=== PATIENT | female | born 1955 | race Caucasian/White ===

== ENCOUNTER 2019-01-23 14:06 | Inpatient (IN) ==
[2019-01-23] MEDS ORDERED: ASPIRIN CHEW 324 MG PO STA (15:11)
[2019-01-23 16:31] LABS: Basophils # (auto) 0.01 K/uL (0-0.2); Basophils % (auto) 0.2 %; Eosinophils # (auto) 0.12 K/uL (0-0.5); Eosinophils % (auto) 2.1 %; Hematocrit (blood only) 25.3 % (37-47); Hemoglobin 8.1 g/dL (12.0-16.0); Immature Granulocytes # (auto) 0.01 K/uL (0.00-0.02); Immature Granulocytes % (auto) 0.2 %; Lymphocytes # (auto) 1.19 K/uL (1.2-3.4); Lymphocytes % (auto) 21.1 %; Mean Corpuscular Volume 85.5 fL (80-100); Mean Platelet Volume 9.7 fL (7.4-10.4); Monocytes # (auto) 0.53 K/uL (0.11-0.59); Monocytes % (auto) 9.4 %; Neutrophils # (auto) 3.78 K/uL (1.4-6.5); Platelet Count 108 K/uL (130-400); RDW Coefficient of Variation 16.9 % (11.5-14.5); RDW Standard Deviation 52.4 fL (36.4-46.3); Red Blood Count 2.96 M/uL (4.2-5.4); White Blood Count 5.64 K/uL (4.8-10.8)
[2019-01-23 16:42] LABS: INR 1.2 (0.9-1.1); Partial Thromboplastin Ratio 1.2; Partial Thromboplastin Time 31.2 Seconds (21.0-31.0); Prothrombin Time 12.5 Seconds (9.0-12.0)
[2019-01-23 16:51] LABS: BUN Creatinine Ratio 22.5 (10-20); Blood Urea Nitrogen 19 mg/dl (7-18); Calcium 8.7 mg/dl (8.5-10.1); Carbon Dioxide 19 mmol/L (21-32); Chloride 118 mmol/L (98-107); Creatinine Clr Calc Pharmacy 71.8 ml/min; Est GFR (African American) 85.1; Est GFR (Non-African American) 73.4; Glucose 72 mg/dl (70-99); Potassium 4.3 mmol/L (3.5-5.1); Sodium 145 mmol/L (136-145)
[2019-01-23 16:56] LABS: NT Pro B Type Natriuretic Pept 1930 pg/ml (0-900); Troponin I < 0.015 ng/ml (0-0.045)
--- NOTE | 2019-01-23 17:07 | XRay Report ---
XR chest 2V routine CLINICAL HISTORY: 63 years-old Female presenting with Chest Pain. TECHNIQUE: PA and lateral views of the chest were obtained. COMPARISON: 10/10/[address] from 09/25/2018. FINDINGS: Cardiac silhouette mildly enlarged. Atherosclerosis of the aortic arch. Pulmonary vascular prominence . Mildly low lung volumes. No focal opacity. Small left pleural effusion. No pneumothorax. Reverse ri ght total shoulder arthroplasty. Osteopenia suspected. Degenerative changes of the spine. Upper abdom en normal. IMPRESSION: 1. Cardiomegaly with volume overload. No elia pulmonary edema at this time. 2. Small left pleural effusion. Electronically signed by: Marco Mac M.D. 01/23/2019 5:06 PM
[2019-01-23] MEDS ORDERED: FUROSEMIDE 40 MG in SYRINGE 0 ML IV ONE (17:19)
[2019-01-23] MEDS ORDERED: FUROSEMIDE 40 MG/4 ML VIAL IV ONE (17:34)
--- NOTE | 2019-01-23 18:17 | History & Physical Report ---
Date of Service January 23, 2019 Assessment & Plan (1) Heart failure: Patient presents with heart failure of undetermined type with a systolic or diastolic. She does have anemia which could create a high-output heart failure type state but she her symptoms are predominantly right-sided with very little in the way of pulmonary findings but significant peripheral body edema. We will give her Lasix 40 IV daily have an echocardiogram checked follow her electrolytes. They are holding her usual home doses of hydrochlorothiazide. She of the heart failure order set and hopefully be involved enrolled in the heart failure clinic once we determine the type of heart failure given the fact that she is been told she has some valvular heart abnormalities she does have a soft murmur this could be related to a valvular problem (2) Anemia: Patient claims of anemia which is likely iron deficiency anemia given the fact that she has significant gastric and duodenal ulcers and received iron infusions in the past. We will check hemoglobin and type and screen her this evening. Maintaining her on a Protonix, she claims have difficulties absorbing insulin with holding her aspirin at this time (3) Diabetes mellitus, type 2: Patient is typically on twice daily basal gar with insulin sliding scale this will be continued well as well as with a diabetic diet check hemoglobin A1c (4) Hypertension: Patient is being maintained on losartan plus amlodipine (5) Depression: Patient on Effexor 150 (6) DVT prophylaxis: SCDs to be employed with the fact that she has had previous peptic gastric ulcers and her anemia slightly worsened today History of Present Illness Primary Care Provider: Rocío Alonso DO 61-year-old female presents to the ER with increasing dyspnea on exertion orth opnea and a 20 to 30 pound weight gain over the last 2 to 3 months. 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 This was done at initially at [facility] and a lot of her care is done through the [facility] system in [place]. 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 This patient had an endoscopy at our facility in July 2018 where she had many nonbleeding cratered gastric ulcers with no stigmata of bleeding rumination and erythema gastric antrum and nonbleeding cratered duodenal ulcers were also found. Dr. Llamas treated with twice daily Protonix and a short run of Carafate. Patient denies having recent melena but states her blood count usually runs around 9 g Patient sees a digital media representative in the [place] system she states she is never been told she had a weak heart but he has been following her for valvular heart abnormalities. She was recently started on as needed Lasix for some lower extremity edema which is now significantly worse and has pitting edema all of her thighs. She states that there are times at home where her legs weep fluid Currently in the ER her BNP is elevated her chest x-ray only shows mild failure she has significant peripheral edema she is a distant smoking history but no significant history of COPD and she is unaware of ever been told she had pulmonary hypertension she is an insulin requiring diabetic patient Allergies Allergy/AdvReac Type Severity Reaction Status Date / Time Sulfa (Sulfonamide Allergy Mild Rash Verified 10/14/18 10:28 Antibiotics) Bactrim Allergy Unknown RASH Verified 08/17/14 08:01 sulfamethoxazole Allergy Unknown RASH Verified 10/14/18 10:28 trimethoprim Allergy Unknown RASH Verified 10/14/18 10:28 adhesive tape Allergy ITCHING Unverified 01/23/19 17:20 Home Medications Home Medications Medication Instructions Recorded Confirmed Type Basaglar KwikPen U-100 Insulin 20 unit SUBCUT QPM 07/24/18 01/23/19 History Basaglar KwikPen U-100 Insulin 25 unit SUBCUT QAM 07/24/18 01/23/19 History Glucagon Emergency Kit (human) 1 dose SUBCUT UD PRN 07/24/18 01/23/19 History amlodipine 5 mg PO HS 07/24/18 01/23/19 History aspirin 81 mg PO QAM 07/24/18 01/23/19 History folic acid 1 mg PO BID 07/24/18 01/23/19 History furosemide 20 mg PO DAILY PRN 07/24/18 01/23/19 History hydrochlorothiazide 50 mg PO QAM 07/24/18 01/23/19 History insulin lispro [Humalog KwikPen 1 dose SUBCUT AC 07/24/18 01/23/19 History Insulin] losartan 100 mg PO QAM 07/24/18 01/23/19 History metformin 1,000 mg PO BID 07/24/18 01/23/19 History potassium chloride 20 meq PO QAM 07/24/18 01/23/19 History ropinirole 2 mg PO HS 07/24/18 01/23/19 History simvastatin 20 mg PO HS 07/24/18 01/23/19 History venlafaxine 150 mg PO QAM 07/24/18 01/23/19 History pantoprazole 40 mg PO BID #60 tab 08/06/18 01/23/19 Rx sucralfate [Carafate] 1 gm PO ACHS #40 tab 08/06/18 01/23/19 Rx magnesium 250 mg PO DAILY 01/23/19 01/23/19 History Past Med/Surg History Family History Grandmother (Paternal) Family history of diabetes mellitus Father COPD (chronic obstructive pulmonary disease) Social History Preferred Language: Palauan Communication Ability: Effective Beliefs That Will Affect Care: None Current Living Situation: Spouse Feels Safe at Home: Yes Smoking Status: Never smoker Second Hand Exposure: Yes (PARENTS SMOKED) Hx Alcohol Use: No Hx Substance Use: No Review of Systems Review of Systems: ROS: Number the obese No double vision blurry vision No problems with speech or swallowing No palpitations, chest pain or pressure Patient has dyspnea on exertion and orthopnea No abdominal pain nausea vomiting diarrhea changes in appetite or melena No burning urine urine frequency or changes in color Persistent focal joint pain which is common for No skin rashes or oral lesions No unusual bruising or bleeding No focused back pain or numbness or loss of strength No changes in memory or confusion Physical Exam Physical Exam: The patient appeared in mild distress and morbidly obese Vital signs as documented. Head exam is unremarkable. normocephalic, atraumatic Neck is with jugular venous distension to the jaw, thyromegaly, or lymphademopathy Lungs are bibasilar fine rales Cardiac exam reveals Rhythm is regular. Systolic ejection murmurs heard at the right upper sternal border Abdominal exam reveals normal bowel sounds, no masses, no organomegaly Extremities are moderate edematous and both legs with pitting edema to the thigh Neurologic exam is A&Ox3, no focal deficits, strength is equal bilateral Psychologically seems neither anxious or depressed Skin is warm Dry without bruises or lesions Results & Data Vital Signs (Past 12 Hours) Vital Signs Temp Pulse Pulse Resp BP BP Pulse Ox 01/23/19 17:54 95 H 22 161/80 H 96 01/23/19 17:00 93 H 24 154/82 H 95 01/23/19 15:15 93 H 22 143/89 H 94 01/23/19 14:11 37.0 C 97 H 20 149/74 H 95
[2019-01-23] MEDS ORDERED: ONDANSETRON INJ 2 MG/ML 2 ML VIAL IV PRN (19:21)
[2019-01-23] MEDS ORDERED: ACETAMINOPHEN 325 MG TAB PO PRN (19:21)
[2019-01-23] MEDS ORDERED: CARBOHYDRATES FOR HYPOGLYCEMIA PO PRN ×2 (19:21)
[2019-01-23] MEDS ORDERED: GLUCAGON FOR INJ 1 MG VIAL SQ PRN ×2 (19:21)
[2019-01-23] MEDS ORDERED: DEXTROSE 50% 50 ML SYRINGE IV PRN ×2 (19:21)
[2019-01-23] MEDS ORDERED: GLUCOSE 40% GEL 15 GM TUBE PO PRN ×2 (19:21)
[2019-01-23] MEDS ORDERED: GLUCOSE 10 TABS/TUBE PO PRN ×2 (19:21)
[2019-01-23] MEDS ORDERED: NITROGLYCERIN SL 0.4 MG/TAB TAB SL PRN (19:21)
[2019-01-23] MEDS: ROPINIROLE HCL 1 MG TABLET PO SCH (20:53)
[2019-01-23] MEDS: PANTOprazole 40 MG TAB PO SCH (20:54)
[2019-01-23] MEDS: AMLODIPINE BESYLATE 5 MG TAB PO SCH (20:54)
[2019-01-23] MEDS: INSULIN GLARGINE SOLOSTAR 100 UNITS/ML 3 ML PEN SQ SCH (20:54)
[2019-01-23] MEDS: SIMVASTATIN 20 MG TAB PO SCH (20:54)
[2019-01-23] MEDS: INSULIN ASPART 100 UNITS/ML 3 ML PEN SC SCH (20:55)
[2019-01-23] MEDS ORDERED: INSULIN ASPART 100 UNITS/ML 3 ML PEN SC SCH (21:00)
--- NOTE | 2019-01-23 21:20 | Emergency Department Note ---
Entered by Kaci Montez acting as a scribe for History of Present Illness General Chief complaint: Shortness of Breath/Dyspnea Stated complaint: trouble breathing Time Seen by Provider: 01/23/19 14:52 Source: patient Mode of arrival: ambulatory Limitations: no limitations History of Present Illness Provider complaint: Shortness of breath Onset (ago): week(s) 3 Location: chest Radiation: non-radiation Pain Consistency: + other (worsening) Maximum Pain Intensity: 4 Quality: + other (shortness of breath) Exacerbated By: + other (exertion, lying down flat) Associated symptoms: + other (Additional symptoms: 30 lb weight gain, leg swelling (tight legs, seeping fluid), hard left breast) Treatments prior to arrival: none The patient is a 63 year old female with a history of COPD, hypertension hyperlipidemia, cardiac murmur, anemia, diabetes, GERD, osteoarthritis, and diverticular disease who presents to the Emergency Room with complaints of worsening shortness of breath starting about 3 weeks ago. The patient reports that her shortness of breath worsens with essentially any amount of exertion and when she lies down flat. She states that she has also been "filling up with fluid" and has gained about 30 lb over the past 3 weeks. She notes that her legs are very tight and have been seeping fluid. The patient also complains that her left breast has become hard to the touch. She denies previously being diagnosed with CHF. She reports that her PCP is Dr. Alonso. Home Medications Home Medications Medication Instructions Recorded Confirmed Type Basaglar KwikPen U-100 Insulin 20 unit SUBCUT QPM 07/24/18 01/23/19 History Basaglar KwikPen U-100 Insulin 25 unit SUBCUT QAM 07/24/18 01/23/19 History Glucagon Emergency Kit (human) 1 dose SUBCUT UD PRN 07/24/18 01/23/19 History amlodipine 5 mg PO HS 07/24/18 01/23/19 History aspirin 81 mg PO QAM 07/24/18 01/23/19 History folic acid 1 mg PO BID 07/24/18 01/23/19 History furosemide 20 mg PO DAILY PRN 07/24/18 01/23/19 History hydrochlorothiazide 50 mg PO QAM 07/24/18 01/23/19 History insulin lispro [Humalog KwikPen 1 dose SUBCUT AC 07/24/18 01/23/19 History Insulin] losartan 100 mg PO QAM 07/24/18 01/23/19 History metformin 1,000 mg PO BID 07/24/18 01/23/19 History potassium chloride 20 meq PO QAM 07/24/18 01/23/19 History ropinirole 2 mg PO HS 07/24/18 01/23/19 History simvastatin 20 mg PO HS 07/24/18 01/23/19 History venlafaxine 150 mg PO QAM 07/24/18 01/23/19 History pantoprazole 40 mg PO BID #60 tab 08/06/18 01/23/19 Rx sucralfate [Carafate] 1 gm PO ACHS #40 tab 08/06/18 01/23/19 Rx magnesium 250 mg PO DAILY 01/23/19 01/23/19 History Allergies Allergy/AdvReac Type Severity Reaction Status Date / Time Sulfa (Sulfonamide Allergy Mild Rash Verified 10/14/18 10:28 Antibiotics) Bactrim Allergy Unknown RASH Verified 08/17/14 08:01 sulfamethoxazole Allergy Unknown RASH Verified 10/14/18 10:28 trimethoprim Allergy Unknown RASH Verified 10/14/18 10:28 adhesive tape Allergy ITCHING Unverified 01/23/19 17:20 Past Med/Surg History Medical History Anemia Anxiety Cardiac murmur Diabetes mellitus, type 2 Diverticular disease Duodenal ulcer GERD (gastroesophageal reflux disease) Gastric ulcer Hyperlipidemia Hypertension Nausea and vomiting after administration of anesthetic agent Osteoarthritis Psoriatic arthritis Restless leg syndrome Surgical History History of anesthesia reaction difficult to wake after bladder tack sx History of bilateral cataract extraction History of bladder surgery bladder tack History of colonoscopy History of esophagogastroduodenoscopy (EGD) History of repair of right rotator cuff x2 History of tooth extraction all teeth Family History Grandmother (Paternal) Family history of diabetes mellitus Father COPD (chronic obstructive pulmonary disease) Social History Preferred Language: [place] Korean Communication Ability: Effective Hvac Refrigeration Technician Required: No Beliefs That Will Affect Care: None Current Living Situation: Spouse Other Information That Helps Us Care for You: No Feels Safe at Home: Yes Safety Concerns: Feels Safe At This Time Smoking Status: Never smoker Second Hand Exposure: Yes (PARENTS SMOKED) Hx Alcohol Use: No Hx Substance Use: No Review of Systems See HPI for pertinent positives & negatives. and A total of 10 systems reviewed and were otherwise negative Physical Exam Vital Signs Vital Signs - 24 hr 01/23/19 14:11 01/23/19 15:15 01/23/19 17:00 Temperature 37.0 C Temperature Source Oral Sepsis Recent Fever Within 48 Hours No Sepsis New/Unexplained Change in Mental Status No Sepsis Action Taken by Nursing No Action Required Pulse Rate 97 H Pulse Rate [Left Finger] 93 H 93 H Pulse Rhythm [Left Finger] Regular Regular Respiratory Rate 20 22 24 Respiratory Effort / Characteristics Non-Labored Non-Labored Respiratory Depth Normal Normal Respiratory Pattern Regular Regular Blood Pressure 149/74 H Blood Pressure [Left Arm] 143/89 H 154/82 H Blood Pressure Mean 99 Blood Pressure Mean [Left Arm] 107 106 Pulse Oximetry 95 94 95 Oxygen Delivery Method Room Air Room Air Room Air GENERAL: She is oriented to person, place, and time. She appears well-developed and well-nourished. She does not appear distressed. HENT: Exam performed. - Head: Normocephalic and atraumatic. - Right Ear: External ear normal. No mastoid tenderness. - Left Ear: External ear normal. No mastoid tenderness. - Mouth/Throat: The oropharynx is clear and moist. No trismus in the jaw. No dental abscesses or uvula swelling. No oropharyngeal exudate or tonsillar abscesses. EYES: Conjunctivae and EOM are normal. Pupils are equal, round, and reactive to light. Right eye exhibits no discharge. Left eye exhibits no discharge. No scleral icterus. NECK: Normal range of motion. Neck supple. No JVD present. No spinous process tenderness present. No carotid bruit present. No rigidity. No tracheal deviation and normal range of motion present. No Brudzinski's sign and no Kernig's sign noted. CV: Normal rate, regular rhythm, normal heart sounds and intact distal pulses. 2+ pitting edema of bilateral lower extremities. Palpable radial pulses bue. PULM/CHEST: Effort normal. She has rales at the bases. Chest Wall: She exhibits no tenderness. BREAST: Breast exam conducted with nursing vice president consulting services at the bedside showed no palpable masses, fluctuance, or discharge/bleeding from the nipples. ABD: The abdomen is soft. Bowel sounds are normal. She has no distension. No mass is present. There is no tenderness. There is no rebound, no guarding, no Quinones's sign and no tenderness at McBurney's point. Rovsig negative MUSC/SKEL: Normal range of motion. There is no tenderness or deformity. 2+ pitting edema of bilateral lower extremities. LYMPH: No cervical adenopathy. NEURO: She is alert and oriented to person, place, and time. She has normal strength. No cranial nerve deficit or sensory deficit. Coordination and gait normal. GCS eye subscore is 4. GCS verbal subscore is 5. GCS motor subscore is 6. cerbellar tests wnl. SKIN: Skin is warm and dry. She is not diaphoretic. PSYCH: She has a normal mood and affect. Her behavior is normal. Judgment and thought content normal. Course 1508: The patient was evaluated in room C7, and a complete history and physical examination were performed. 1724: Vital signs are stable. Imaging shows cardiomegaly with fluid overload. Her proBNP was elevated. The patient was given Lasix and will be admitted for new diagosis CHF. I reviewed the patient's case with Dr. Karimi - [facility]. Dr. Karimi will evaluate the patient for further management. Consultations Consultation #1: I reviewed the patient's case with Dr. Karimi - [facility]. Dr. Karmii will evaluate the patient for further management. Time: 17:24 Administered Medications Amlodipine Besylate (Norvasc) 5 mg PO HS BOBBY Stop: 02/22/19 20:59 Last Admin: 01/23/19 20:54 Dose: 5 mg Documented by: [id number] Insulin Aspart (Novolog Flexpen) 0 units SC ACHS BOBBY Stop: 02/22/19 20:59 Last Admin: 01/23/19 20:55 Dose: Not Given Documented by: [id number] Cosigned by: [id number] Insulin Glargine (Lantus Solostar Pen) 20 units SQ QPM BOBBY Stop: 02/22/19 20:59 Last Admin: 01/23/19 20:54 Dose: 20 units Documented by: [id number] Cosigned by: [id number] Pantoprazole Sodium (Protonix) 40 mg PO BID BOBBY Stop: 02/22/19 20:59 Last Admin: 01/23/19 20:54 Dose: 40 mg Documented by: [id number] Ropinirole HCl (Requip) 2 mg PO HS BOBBY Stop: 02/22/19 20:59 Last Admin: 01/23/19 20:53 Dose: 2 mg Documented by: [id number] Simvastatin (Zocor) 20 mg PO HS BOBBY Stop: 02/22/19 20:59 Last Admin: 01/23/19 20:54 Dose: 20 mg Documented by: [id number] Discontinued Medications Aspirin (Aspirin) 324 mg PO NOW STA Stop: 01/23/19 15:12 Last Admin: 01/23/19 16:16 Dose: 324 mg Documented by: [id number] Furosemide (Lasix) Confirm Administered Dose 40 mg IV .STK-MED ONE Stop: 01/23/19 17:35 Last Admin: 01/23/19 17:52 Dose: 40 mg Documented by: [id number] Furosemide 40 mg/ Syringe 4 mls @ 4 mls/min IV ONE ONE Stop: 01/23/19 17:20 Last Admin: 01/23/19 17:52 Dose: Not Given Documented by: [id number] Medical Decision Making Medical Records Attestation: I reviewed the patient's medical records. Home Medications Current Medication List: was personally reviewed by me Laboratory Data Attestation: I reviewed the patient's lab results. Result diagrams: 01/23/19 16:05 01/23/19 16:05 Lab Results 01/23/19 01/23/19 01/23/19 Range/Units 16:05 16:05 16:05 WBC 5.64 (4.8-10.8) K/uL RBC 2.96 L (4.2-5.4) M/uL Hgb 8.1 L (12.0-16.0) g/dL Hct 25.3 L (37-47) % MCV 85.5 (80-100) fL MCH 27.4 (25-34) pg MCHC 32.0 (32-36) g/dL RDW Std Deviation 52.4 H (36.4-46.3) fL RDW Coeff of Karina 16.9 H (11.5-14.5) % Plt Count 108 L (130-400) K/uL MPV 9.7 (7.4-10.4) fL Immature Gran % (Auto) 0.2 % Neut % (Auto) 67.0 % Lymph % (Auto) 21.1 % Nicollet % (Auto) 9.4 % Eos % (Auto) 2.1 % Baso % (Auto) 0.2 % Immature Gran # (Auto) 0.01 (0.00-0.02) K/uL Neut # (Auto) 3.78 (1.4-6.5) K/uL Lymph # (Auto) 1.19 L (1.2-3.4) K/uL Nicol[place] # (Auto) 0.53 (0.11-0.59) K/uL Eos # (Auto) 0.12 (0-0.5) K/uL Baso # (Auto) 0.01 (0-0.2) K/uL PT 12.5 H (9.0-12.0) Seconds INR 1.2 H (0.9-1.1) APTT 31.2 H (21.0-31.0) Seconds PTT Ratio 1.2 Sodium 145 (136-145) mmol/L Potassium 4.3 (3.5-5.1) mmol/L Chloride 118 H (98-107) mmol/L Carbon Dioxide 19 L (21-32) mmol/L Anion Gap 7.0 (3-11) BUN 19 H (7-18) mg/dl Creatinine 0.85 (0.6-1.2) mg/dl Est Cr Clr Drug Dosing 71.8 ml/min Est GFR ( Amer) 85.1 Est GFR (Non-Af Amer) 73.4 BUN/Creatinine Ratio 22.5 H (10-20) Glucose 72 (70-99) mg/dl Calcium 8.7 (8.5-10.1) mg/dl Troponin I < 0.015 (0-0.045) ng/ml NT-Pro-B Natriuret Pep 1930 H (0-900) pg/ml Lipase 60 L (73-393) U/L Imaging Data Radiologist's Impression: Radiology results as stated below per my review and the radiologist's interpretation: XR chest 2V routine CLINICAL HISTORY: 63 years-old Female presenting with Chest Pain. TECHNIQUE: PA and lateral views of the chest were obtained. COMPARISON: 10/10/[address] from 09/25/2018. FINDINGS: Cardiac silhouette mildly enlarged. Atherosclerosis of the aortic arch. Pulmonary vascular prominence. Mildly low lung volumes. No focal opacity. Small left pleural effusion. No pneumothorax. Reverse right total shoulder arthroplasty. Osteopenia suspected. Degenerative changes of the spine. Upper abdomen normal. IMPRESSION: 1. Cardiomegaly with volume overload. No elia pulmonary edema at this time. 2. Small left pleural effusion. Electronically signed by: Marco Mac M.D. 01/23/2019 5:06 PM ECG Data Attestation: I personally reviewed and interpreted this ECG as follows: Indication: SOB/dyspnea Rate (beats per minute): 92 Rhythm: sinus rhythm Findings: + other (MI, QRS, and QTC intervals are within normal limits); no ST depression and no ST elevation Blood Pressure Blood Pressure Findings: Elevated blood pressure Blood Pressure Disposition: further management by hospitalist [facility] Narrative Vital signs are stable. Imaging shows cardiomegaly with fluid overload. Her proBNP was elevated. The patient was given Lasix and will be admitted for new diagosis CHF. I reviewed the patient's case with Dr. Karimi - Hospitalist, [facility]. Dr. Karimi will evaluate the patient for further management. Impression & Plan CHF (congestive heart failure) Discharge Plan Visit Data *Final* Discharge Date/Time: 01/23/19 18:40 Chief Complaint: Shortness of Breath/Dyspnea Stated Complaint: trouble breathing ED Provider: Mahendra Garcia Discharge Problem: CHF (congestive heart failure) Patient Disposition: Admitted As Inpatient Discharge Instructions Interventions: ED Discharge Assessment Last Done: 01/23/19 18:40 Discharge Problem: CHF (congestive heart failure) Qualifiers: Heart failure type: unspecified Heart failure chronicity: unspecified Qualified Code(s): I50.9 - Heart failure, unspecified The scribe's documentation has been prepared under my direction and personally reviewed by me in its entirety. I confirm that the note above accurately reflects all work, treatment, procedures, and medical decision making performed by me.
[2019-01-24 06:26] LABS: Hematocrit (blood only) 24.2 % (37-47); Hemoglobin 7.9 g/dL (12.0-16.0); Mean Corpuscular Hgb Conc 32.6 g/dL (32-36); Mean Corpuscular Volume 85.2 fL (80-100); RDW Coefficient of Variation 16.9 % (11.5-14.5); RDW Standard Deviation 52.7 fL (36.4-46.3); Red Blood Count 2.84 M/uL (4.2-5.4); White Blood Count 4.44 K/uL (4.8-10.8)
[2019-01-24 06:44] LABS: Estimated Average Glucose 120 mg/dl; Hemoglobin A1C 5.8 % (4.5-5.6)
[2019-01-24 06:52] LABS: Mean Platelet Volume 9.3 fL (7.4-10.4); Platelet Count 89 K/uL (130-400)
[2019-01-24 06:55] LABS: BUN Creatinine Ratio 23.6 (10-20); Calcium 8.4 mg/dl (8.5-10.1); Creatinine Clr Calc Pharmacy 71.6 ml/min; Est GFR (African American) 86.3; Est GFR (Non-African American) 74.5; Potassium 3.8 mmol/L (3.5-5.1)
[2019-01-24] MEDS: INSULIN ASPART 100 UNITS/ML 3 ML PEN SC SCH ×4 (08:29→21:12)
[2019-01-24] MEDS: INSULIN GLARGINE SOLOSTAR 100 UNITS/ML 3 ML PEN SQ SCH ×2 (08:30→21:11)
[2019-01-24] MEDS: FUROSEMIDE 40 MG in SYRINGE 0 ML IV SCH (08:31)
[2019-01-24] MEDS: POTASSIUM CHLORIDE 10 MEQ TABCR PO SCH (08:32)
[2019-01-24] MEDS: PANTOprazole 40 MG TAB PO SCH ×2 (08:32→21:10)
[2019-01-24] MEDS: MAGNESIUM OXIDE 400 MG TAB PO SCH (08:33)
[2019-01-24] MEDS: LOSARTAN POTASSIUM 50 MG TAB PO SCH (08:33)
[2019-01-24] MEDS: VENLAFAXINE HCL XR 150 MG CAPXR PO SCH (08:33)
[2019-01-24] MEDS ORDERED: NON-FORMULARY MEDICATION (Magnesium 250 MG) PO SCH (09:00)
[2019-01-24] MEDS ORDERED: LOPERAMIDE HCL 2 MG CAP PO PRN (10:30)
--- NOTE | 2019-01-24 10:43 | Hospitalist Progress Note ---
Date of Service January 24, 2019 Assessment & Plan (1) Heart failure: acute heart failure with preserved ejection fraction, EF is 65-70%, could be a degree of right heart failure responding well to Lasix 40mg IV, -2000mL already and making more urine K is stable, Cr is stable will give additional dose of Lasix 40mg IV at 1400 still with pitting edema, no rales on exam follow UO, follow weights, follow BMP in the morning (2) Anemia: Patient claims of anemia which is likely iron deficiency anemia given the fact that she has significant gastric and duodenal ulcers and received iron infusions in the past. We will check hemoglobin and type and screen her this evening. Maintaining her on a Protonix, she claims have difficulties absorbing insulin with holding her aspirin at this time Hb down to 7.9 from 8.1, iron is low which supports her story of being deficient will check ferritin level no need for transfusion unless her Hb is < 7.0, would certainly give Lasix 40mg IV afterwards given her volume overload status (3) Diabetes mellitus, type 2: Patient is typically on twice daily basal gar with insulin sliding scale this will be continued diabetic diet HbA1c is 5.8% so she is very well controlled monitor for hypoglycemia (4) Hypertension: Patient is being maintained on losartan plus amlodipine, typically on HCTZ as well pressures running a little high with SBP in 160s HR in the 80-90's, will start low dose Lopressor to see if BP improves would not increase Amlodipine due to peripheral edema (5) Depression: Patient on Effexor 150 (6) DVT prophylaxis: SCDs make patient full admission continue to diurese until her UO decreases or Cr rises, day to day decision on discharge Subjective patient feeling better this morning, says breathing is easier making a lot of urine, negative 2 liters as of this morning, less than 24 hours into admission still with edema in legs but less overall reviewed labs, Cr is stable and electrolytes are stable, K is 3.8 Hb down very slightly to 7.9 iron is low, ferritin not checked, will order for tomorrow c/o some pain in shoulder after recent surgery, will order oxycodone c/o loose stools, she says it is related to Protonix, uses Imodium at home Review of Systems Review of Systems: All systems reviewed & are unremarkable except as noted in HPI & below Constitutional: no fever, no fatigue and no weakness Respiratory: + dyspnea on exertion (much better); no dyspnea Cardiovascular: + dyspnea on exertion and + edema; no chest pain and no orthopnea Gastrointestinal: + diarrhea/loose stools; no abdominal pain, no nausea, no vomiting and no constipation Physical Exam Constitutional: WD/WN, vitals as above Eyes: PERRL, conjunctivae normal, anicteric sclerae ENMT: external ear and nose normal, oropharynx normal Neck: trachea midline, no thyromegaly Respiratory: normal respiratory effort, lungs clear to auscultation Cardiovascular: RRR, no murmur, no edema Gastrointestinal (Abdomen): normal bowel sounds, soft, nontender, no hepatosplenomegaly Musculoskeletal: no cyanosis or clubbing, extremities motor strength 5/5 Extremities: + limited ROM of extremities (right shoulder due to recent surgery) Skin: no rashes, warm and dry Neurologic: patellar DTR's 2+ bilat, sensation intact and PERRL, EOMI, accommodation nl, no face palsy, no dysarthria Psychiatric: A+Ox3, euthymic affect Lymphatic: no cervical or axillary lymphadenopathy Results & Data Vital Signs (Past 12 Hours) Vital Signs Temp Pulse Pulse Resp BP Pulse Ox 01/24/19 07:43 36.6 C 88 19 161/82 H 95 01/24/19 04:24 36.7 C 86 16 152/81 H 95 01/24/19 00:40 85 01/23/19 23:08 36.7 C 91 H 18 146/79 H 95 Laboratory Results Laboratory Results - last 24 hr 01/23/19 01/23/19 01/23/19 16:05 16:05 16:05 WBC 5.64 RBC 2.96 L Hgb 8.1 L Hct 25.3 L MCV 85.5 MCH 27.4 MCHC 32.0 RDW Std Deviation 52.4 H RDW Coeff of Karina 16.9 H Plt Count 108 L MPV 9.7 Immature Gran % (Auto) 0.2 Neut % (Auto) 67.0 Lymph % (Auto) 21.1 Grainger % (Auto) 9.4 Eos % (Auto) 2.1 Baso % (Auto) 0.2 Immature Gran # (Auto) 0.01 Neut # (Auto) 3.78 Lymph # (Auto) 1.19 L Grainger # (Auto) 0.53 Eos # (Auto) 0.12 Baso # (Auto) 0.01 PT 12.5 H INR 1.2 H APTT 31.2 H PTT Ratio 1.2 Sodium 145 Potassium 4.3 Chloride 118 H Carbon Dioxide 19 L Anion Gap 7.0 BUN 19 H Creatinine 0.85 Est Cr Clr Drug Dosing 71.8 Est GFR ( Amer) 85.1 Est GFR (Non-Af Amer) 73.4 BUN/Creatinine Ratio 22.5 H Glucose 72 POC Glucose Estimat Average Glucose Hemoglobin A1c Calcium 8.7 Iron TIBC Troponin I < 0.015 NT-Pro-B Natriuret Pep 1930 H Lipase 60 L Hepatitis C Ab Screen Blood Type Antibody Screen 01/23/19 01/23/19 01/23/19 19:14 20:47 23:15 WBC RBC Hgb Hct MCV MCH MCHC RDW Std Deviation RDW Coeff of Karina Plt Count MPV Immature Gran % (Auto) Neut % (Auto) Lymph % (Auto) Grainger % (Auto) Eos % (Auto) Baso % (Auto) Immature Gran # (Auto) Neut # (Auto) Lymph # (Auto) Grainger # (Auto) Eos # (Auto) Baso # (Auto) PT INR APTT PTT Ratio Sodium Potassium Chloride Carbon Dioxide Anion Gap BUN Creatinine Est Cr Clr Drug Dosing Est GFR ( Amer) Est GFR (Non-Af Amer) BUN/Creatinine Ratio Glucose POC Glucose 74 101 H Estimat Average Glucose Hemoglobin A1c Calcium Iron TIBC Troponin I NT-Pro-B Natriuret Pep Lipase Hepatitis C Ab Screen Blood Type O Positive Antibody Screen NEGATIVE 01/23/19 01/24/19 01/24/19 23:15 05:30 05:30 WBC 4.44 L RBC 2.84 L Hgb 8.1 L 7.9 L Hct 24.2 L MCV 85.2 MCH 27.8 MCHC 32.6 RDW Std Deviation 52.7 H RDW Coeff of Karina 16.9 H Plt Count 89 L MPV 9.3 Immature Gran % (Auto) Neut % (Auto) Lymph % (Auto) Grainger % (Auto) Eos % (Auto) Baso % (Auto) Immature Gran # (Auto) Neut # (Auto) Lymph # (Auto) Grainger # (Auto) Eos # (Auto) Baso # (Auto) PT INR APTT PTT Ratio Sodium 143 Potassium 3.8 Chloride 116 H Carbon Dioxide 21 Anion Gap 6.0 BUN 20 H Creatinine 0.84 Est Cr Clr Drug Dosing 71.6 Est GFR ( Amer) 86.3 Est GFR (Non-Af Amer) 74.5 BUN/Creatinine Ratio 23.6 H Glucose 57 L POC Glucose Estimat Average Glucose Hemoglobin A1c Calcium 8.4 L Iron 26 L TIBC 180 L Troponin I NT-Pro-B Natriuret Pep Lipase Hepatitis C Ab Screen Blood Type Antibody Screen 01/24/19 01/24/19 01/24/19 05:30 05:30 07:10 WBC RBC Hgb Hct MCV MCH MCHC RDW Std Deviation RDW Coeff of Karina Plt Count MPV Immature Gran % (Auto) Neut % (Auto) Lymph % (Auto) Grainger % (Auto) Eos % (Auto) Baso % (Auto) Immature Gran # (Auto) Neut # (Auto) Lymph # (Auto) Grainger # (Auto) Eos # (Auto) Baso # (Auto) PT INR APTT PTT Ratio Sodium Potassium Chloride Carbon Dioxide Anion Gap BUN Creatinine Est Cr Clr Drug Dosing Est GFR ( Amer) Est GFR (Non-Af Amer) BUN/Creatinine Ratio Glucose POC Glucose 68 L* Estimat Average Glucose 120 Hemoglobin A1c 5.8 H Calcium Iron TIBC Troponin I NT-Pro-B Natriuret Pep Lipase Hepatitis C Ab Screen Neg Blood Type Antibody Screen 01/24/19 07:11 WBC RBC Hgb Hct MCV MCH MCHC RDW Std Deviation RDW Coeff of Karina Plt Count MPV Immature Gran % (Auto) Neut % (Auto) Lymph % (Auto) Grainger % (Auto) Eos % (Auto) Baso % (Auto) Immature Gran # (Auto) Neut # (Auto) Lymph # (Auto) Grainger # (Auto) Eos # (Auto) Baso # (Auto) PT INR APTT PTT Ratio Sodium Potassium Chloride Carbon Dioxide Anion Gap BUN Creatinine Est Cr Clr Drug Dosing Est GFR ( Amer) Est GFR (Non-Af Amer) BUN/Creatinine Ratio Glucose POC Glucose 71 Estimat Average Glucose Hemoglobin A1c Calcium Iron TIBC Troponin I NT-Pro-B Natriuret Pep Lipase Hepatitis C Ab Screen Blood Type Antibody Screen Diagnostic Findings ECHOCARDIOGRAM: EF is 65-70%, left atrium dilated, elevated pulmonary pressures Medications Administered Current Inpatient Medications Acetaminophen (Tylenol) 650 mg PO Q4H PRN PRN Reason: Pain or Fever Stop: 02/22/19 19:20 Last Admin: 01/24/19 07:28 Dose: 650 mg Documented by: Amlodipine Besylate (Norvasc) 5 mg PO HS [facility] Stop: 02/22/19 20:59 Last Admin: 01/23/19 20:54 Dose: 5 mg Documented by: Dextrose (Dextrose 50%) 25 - 50 ml IV UD PRN; Protocol PRN Reason: Hypoglycemia Protocol Stop: 02/22/19 19:20 Glucagon (Glucagen) 1 mg SQ UD PRN; Protocol PRN Reason: Hypoglycemia Protocol Stop: 02/22/19 19:20 Glucose (Glucose 40%) 15 - 30 gm PO UD PRN; Protocol PRN Reason: Hypoglycemia Protocol Stop: 02/22/19 19:20 Glucose (Dex4 Glucose) 4 - 8 tabs PO UD PRN; Protocol PRN Reason: Hypoglycemia Protocol Stop: 02/22/19 19:20 Hydrochlorothiazide (Hctz) 50 mg PO QAM [facility] Stop: 02/23/19 08:59 Last Admin: 01/24/19 08:32 Dose: 50 mg Documented by: Furosemide 40 mg/ Syringe 4 mls @ 4 mls/min IV QAM [facility] Stop: 02/23/19 08:59 Last Admin: 01/24/19 08:31 Dose: 4 mls/min Documented by: Furosemide 40 mg/ Syringe 4 mls @ 4 mls/min IV ONE ONE Stop: 01/24/19 14:01 Insulin Aspart (Novolog Flexpen) 0 units SC ACHS [facility] Stop: 02/22/19 20:59 Last Admin: 01/24/19 08:29 Dose: Not Given Documented by: Insulin Glargine (Lantus Solostar Pen) 20 units SQ QPM [facility] Stop: 02/22/19 20:59 Last Admin: 01/23/19 20:54 Dose: 20 units Documented by: Insulin Glargine (Lantus Solostar Pen) 25 units SQ QAM [facility] Stop: 02/23/19 08:59 Last Admin: 01/24/19 08:30 Dose: 25 units Documented by: Loperamide HCl (Imodium) 2 mg PO Q6 PRN PRN Reason: Diarrhea Stop: 02/23/19 10:29 Losartan Potassium (Cozaar) 100 mg PO QAM [facility] Stop: 02/23/19 08:59 Last Admin: 01/24/19 08:33 Dose: 100 mg Documented by: Magnesium Oxide (Mag-Ox) 400 mg PO QAM [facility] Stop: 02/23/19 08:59 Last Admin: 01/24/19 08:33 Dose: 400 mg Documented by: Miscellaneous (Carbohydrates For Hypoglycemia) 15 - 30 gm PO UD PRN PRN Reason: Hypoglycemia Treatment Stop: 02/22/19 19:20 Nitroglycerin (Nitrostat) 0.4 mg SL UD PRN PRN Reason: Chest Pain Stop: 02/22/19 19:20 Ondansetron HCl (Zofran) 4 mg IV Q6H PRN PRN Reason: Nausea Stop: 02/22/19 19:20 Oxycodone HCl (Roxicodone Immediate Rel) 5 mg PO Q6 PRN PRN Reason: Pain Stop: 02/07/19 10:30 Pantoprazole Sodium (Protonix) 40 mg PO BID [facility] Stop: 02/22/19 20:59 Last Admin: 01/24/19 08:32 Dose: 40 mg Documented by: Potassium Chloride (Klor-Con M10) 20 meq PO [facility] Stop: 02/23/19 08:59 Last Admin: 01/24/19 08:32 Dose: 20 meq Documented by: Ropinirole HCl (Requip) 2 mg PO [facility] Stop: 02/22/19 20:59 Last Admin: 01/23/19 20:53 Dose: 2 mg Documented by: Simvastatin (Zocor) 20 mg PO [facility] Stop: 02/22/19 20:59 Last Admin: 01/23/19 20:54 Dose: 20 mg Documented by: Venlafaxine HCl (Effexor Extended Release) 150 mg PO [facility] Stop: 02/23/19 08:59 Last Admin: 01/24/19 08:33 Dose: 150 mg Documented by:
[2019-01-24] MEDS: OXYCODONE HCL IR 5 MG TAB (IMMEDIATE RELEASE) PO PRN ×2 (13:40→23:27)
[2019-01-24] MEDS ORDERED: FUROSEMIDE 40 MG in SYRINGE 0 ML IV ONE (14:00)
[2019-01-24] MEDS: AMLODIPINE BESYLATE 5 MG TAB PO SCH (21:09)
[2019-01-24] MEDS: METOPROLOL TARTRATE 25 MG TAB PO SCH (21:09)
[2019-01-24] MEDS: ROPINIROLE HCL 1 MG TABLET PO SCH (21:10)
[2019-01-24] MEDS: SIMVASTATIN 20 MG TAB PO SCH (21:11)
[2019-01-25 07:06] LABS: Hematocrit (blood only) 25.5 % (37-47); Hemoglobin 8.1 g/dL (12.0-16.0); Mean Corpuscular Hgb Conc 31.8 g/dL (32-36); Mean Corpuscular Volume 85.3 fL (80-100); Mean Platelet Volume 9.6 fL (7.4-10.4); Platelet Count 101 K/uL (130-400); RDW Coefficient of Variation 16.8 % (11.5-14.5); RDW Standard Deviation 52.2 fL (36.4-46.3); Red Blood Count 2.99 M/uL (4.2-5.4); White Blood Count 4.92 K/uL (4.8-10.8)
[2019-01-25 07:41] LABS: BUN Creatinine Ratio 22.1 (10-20); Calcium 8.3 mg/dl (8.5-10.1); Est GFR (African American) 81.6; Est GFR (Non-African American) 70.4; Potassium 3.8 mmol/L (3.5-5.1)
[2019-01-25 07:48] LABS: Ferritin 99.3 ng/ml (8-388)
[2019-01-25] MEDS: INSULIN ASPART 100 UNITS/ML 3 ML PEN SC SCH ×4 (08:14→21:06)
[2019-01-25] MEDS: INSULIN GLARGINE SOLOSTAR 100 UNITS/ML 3 ML PEN SQ SCH ×2 (08:15→21:06)
[2019-01-25] MEDS: POTASSIUM CHLORIDE 10 MEQ TABCR PO SCH (08:15)
[2019-01-25] MEDS: LOSARTAN POTASSIUM 50 MG TAB PO SCH (08:16)
[2019-01-25] MEDS: MAGNESIUM OXIDE 400 MG TAB PO SCH (08:16)
[2019-01-25] MEDS: VENLAFAXINE HCL XR 150 MG CAPXR PO SCH (08:16)
[2019-01-25] MEDS: FUROSEMIDE 40 MG in SYRINGE 0 ML IV SCH (08:16)
[2019-01-25] MEDS: METOPROLOL TARTRATE 25 MG TAB PO SCH ×2 (08:17→21:04)
[2019-01-25] MEDS: PANTOprazole 40 MG TAB PO SCH ×2 (08:19→21:04)
[2019-01-25] MEDS ORDERED: FUROSEMIDE 40 MG in SYRINGE 0 ML IV ONE (17:00)
--- NOTE | 2019-01-25 17:05 | Hospitalist Progress Note ---
Date of Service January 25, 2019 Assessment & Plan (1) Heart failure: Here with acute right-sided heart failure with preserved ejection fraction, EF is 65-70%, moderate pulmonary hypertension seen on echo along with abdominal ascites. With significant lower extremity edema and with abdominal as cites, consistent with right-sided heart failure. She is continuing to diurese very well with IV Lasix 40 mg-has received dose twice daily yesterday and will do again today She was told to stop her Lasix 20 mg daily approximately 1 month ago at a preoperative cardiology visit due to being on both HCTZ and Lasix Weight is down a significant amount already at -5.6 kg, eyes and his cumulative are -3.7 L -Continue to follow BMP -Continue Lasix 40 mg IV once daily and extra dose in the afternoon as needed -Add fluid restriction of 1800 mL's per day -Continue daily weights, strict I's and O's, low-sodium diet-gave education on this today -Permanently discontinue HCTZ -will 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 -With history of apneic events witnessed and snoring, will do overnight oximetry test prior to discharge and then should have formal sleep study as an outpatient to qualify for CPAP (2) Pulmonary hypertension: Moderate, seen on echocardiogram here -Most likely secondary to untreated AIMEE and could have component of COPD given [id number] smoking history -Recommend PFTs as an outpatient -Recommend overnight oximetry here and sleep study as above (3) Anemia: Patient claims of anemia which is likely iron deficiency anemia given the fact that she has significant gastric and duodenal ulcers and received iron infusions in the past. -Hemoglobin 8.1 today-stable from previous Ferritin level is normal at 99 but has received iron treatments recently -Continue to follow hemoglobin as an outpatient, would transfuse here if less than 7 -Holding aspirin from home (4) Diabetes mellitus, type 2: With hypoglycemia here relatively on home insulin doses, likely dietary related -Lower Lantus to 18 units twice daily -Continue diabetic diet HbA1c is 5.8% so she is very well controlled -Continue to monitor for hypoglycemia (5) Hypertension: Controlled now with the addition of metoprolol -Continue losartan plus amlodipine, but discontinuing HCTZ as above -Continuing Lasix and will likely switch to p.o. Lasix for discharge -Continue new medication of metoprolol tartrate 25 mg p.o. twice daily -Would not increase Amlodipine due to peripheral edema (6) Depression: Stable -Continue Effexor 150 MG daily (7) Aortic stenosis: Mild as seen on echocardiogram -Should be followed over time (8) Mitral regurgitation: Mild as seen on echocardiogram -Should be followed over time (9) Peptic ulcer disease: With multiple cratered ulcers seen on previous EGD with history of anemia -Continue Protonix twice daily (10) DVT prophylaxis: SCDs, teds only due to significant anemia and history of GI bleeding Disposition-remain on telemetry -Continue to diurese until her UO decreases or Cr rises, day to day decision on discharge Subjective Patient feels like her leg swelling is slightly improved but still very swollen into her thighs. Feels her abdomen distention is much improved. Her daughter at the bedside reports that for years, the patient's complained of the patient having apneic episodes at night. The daughter also reports that the patient continues to snore very loudly. She has never had a sleep study to check for sleep apnea. Most of her weight gain has really been in the last month since her telegraph repeater installer advised her to stop taking Lasix as she was already on HCTZ 50 mg daily Telemetry with normal sinus rhythm with rates in the 60s to 80s Review of Systems Review of Systems: All systems reviewed & are unremarkable except as noted in HPI & below (Denies chest pain or shortness of breath, denies abdominal pain or nausea) Physical Exam Constitutional: WD/WN, vitals as above + morbidly obese Eyes: PERRL, conjunctivae normal, anicteric sclerae ENMT: external ear and nose normal, oropharynx normal Neck: trachea midline, no thyromegaly Respiratory: normal respiratory effort, lungs clear to auscultation Cardiovascular: Rate/Rhythm: regular rate and regular rhythm Heart Sounds: + murmur (2 out of 6 at right upper sternal border, systolic) Extremities: + edema (2-3+ pitting edema to the mid thighs bilaterally) Gastrointestinal (Abdomen): normal bowel sounds, soft, nontender, no h epatosplenomegaly Musculoskeletal: Extremities: extremities normal to inspection; no cyanosis and no clubbing Skin: + rash (Thick plaque of pinks again with white flaking on left lateral calf consistent with psoriasis) Neurologic: moves all extremities and awake; no focal motor deficits Psychiatric: A+Ox3, euthymic affect Results & Data Vital Signs (Past 12 Hours) Vital Signs Temp Pulse Pulse Resp BP Pulse Ox 01/25/19 15:24 36.9 C 66 18 133/67 93 01/25/19 15:00 65 01/25/19 11:26 36.8 C 66 18 144/73 H 93 01/25/19 07:20 67 01/25/19 07:05 36.7 C 67 16 122/70 93 Laboratory Results 01/25/19 01/25/19 01/25/19 Range/Units 16:14 11:05 07:05 WBC (4.8-10.8) K/uL RBC (4.2-5.4) M/uL Hgb (12.0-16.0) g/dL Hct (37-47) % MCV (80-100) fL MCH (25-34) pg MCHC (32-36) g/dL RDW Std Deviation (36.4-46.3) fL RDW Coeff of Karina (11.5-14.5) % Plt Count (130-400) K/uL MPV (7.4-10.4) fL Sodium (136-145) mmol/L Potassium (3.5-5.1) mmol/L Chloride (98-107) mmol/L Carbon Dioxide (21-32) mmol/L Anion Gap (3-11) BUN (7-18) mg/dl Creatinine (0.6-1.2) mg/dl Est Cr Clr Drug Dosing ml/min Est GFR ( Amer) Est GFR (Non-Af Amer) BUN/Creatinine Ratio (10-20) Glucose (70-99) mg/dl POC Glucose 94 129 H 83 (70-99) Calcium (8.5-10.1) mg/dl Ferritin (8-388) ng/ml 01/25/19 01/25/19 01/24/19 Range/Units 06:37 06:37 20:32 WBC 4.92 (4.8-10.8) K/uL RBC 2.99 L (4.2-5.4) M/uL Hgb 8.1 L (12.0-16.0) g/dL Hct 25.5 L (37-47) % MCV 85.3 (80-100) fL MCH 27.1 (25-34) pg MCHC 31.8 L (32-36) g/dL RDW Std Deviation 52.2 H (36.4-46.3) fL RDW Coeff of Karina 16.8 H (11.5-14.5) % Plt Count 101 L (130-400) K/uL MPV 9.6 (7.4-10.4) fL Sodium 142 (136-145) mmol/L Potassium 3.8 (3.5-5.1) mmol/L Chloride 114 H (98-107) mmol/L Carbon Dioxide 22 (21-32) mmol/L Anion Gap 6.0 (3-11) BUN 20 H (7-18) mg/dl Creatinine 0.88 (0.6-1.2) mg/dl Est Cr Clr Drug Dosing 67.0 ml/min Est GFR ( Amer) 81.6 Est GFR (Non-Af Amer) 70.4 BUN/Creatinine Ratio 22.1 H (10-20) Glucose 77 (70-99) mg/dl POC Glucose 76 (70-99) Calcium 8.3 L (8.5-10.1) mg/dl Ferritin 99.3 (8-388) ng/ml
[2019-01-25] MEDS: OXYCODONE HCL IR 5 MG TAB (IMMEDIATE RELEASE) PO PRN (19:33)
[2019-01-25] MEDS: AMLODIPINE BESYLATE 5 MG TAB PO SCH (21:03)
[2019-01-25] MEDS: ROPINIROLE HCL 1 MG TABLET PO SCH (21:04)
[2019-01-25] MEDS: SIMVASTATIN 20 MG TAB PO SCH (21:05)
[2019-01-26 05:55] LABS: Hemoglobin 7.8 g/dL (12.0-16.0); Mean Corpuscular Hgb Conc 31.2 g/dL (32-36); Mean Platelet Volume 10.3 fL (7.4-10.4); Platelet Count 109 K/uL (130-400); RDW Coefficient of Variation 16.9 % (11.5-14.5); RDW Standard Deviation 51.7 fL (36.4-46.3); Red Blood Count 2.94 M/uL (4.2-5.4); White Blood Count 5.52 K/uL (4.8-10.8)
[2019-01-26 06:26] LABS: BUN Creatinine Ratio 22.5 (10-20); Calcium 7.9 mg/dl (8.5-10.1); Creatinine Clr Calc Pharmacy 54.4 ml/min; Est GFR (African American) 63.7; Potassium 3.3 mmol/L (3.5-5.1)
[2019-01-26] MEDS: INSULIN GLARGINE SOLOSTAR 100 UNITS/ML 3 ML PEN SQ SCH (07:46)
[2019-01-26] MEDS: INSULIN ASPART 100 UNITS/ML 3 ML PEN SC SCH (07:47)
[2019-01-26] MEDS: MAGNESIUM OXIDE 400 MG TAB PO SCH (07:48)
[2019-01-26] MEDS: PANTOprazole 40 MG TAB PO SCH (07:48)
[2019-01-26] MEDS: METOPROLOL TARTRATE 25 MG TAB PO SCH (07:49)
[2019-01-26] MEDS: FUROSEMIDE 40 MG in SYRINGE 0 ML IV SCH (07:49)
[2019-01-26] MEDS: VENLAFAXINE HCL XR 150 MG CAPXR PO SCH (07:49)
[2019-01-26] MEDS: LOSARTAN POTASSIUM 50 MG TAB PO SCH (07:50)
[2019-01-26] MEDS ORDERED: POTASSIUM CHLORIDE 20 MEQ TABCR PO SCH (09:00)
--- NOTE | 2019-01-26 15:09 | Discharge Summary ---
Date of Service January 26, 2019 Admission HPI Per Admitting Provider 61-year-old female presents to the ER with increasing dyspnea on exertion orthopnea and a 20 to 30 pound weight gain over the last 2 to 3 months. 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 This was done at initially at [facility] and a lot of her care is done through the [facility] system in [place]. Reportedly patient also Sees a furnishings conservator over there for persistent iron deficiency anemia and this patient is also received iron infusions. This patient had an endoscopy at our facility in July 2018 where she had many n onbleeding cratered gastric ulcers with no stigmata of bleeding rumination and erythema gastric antrum and nonbleeding cratered duodenal ulcers were also found. Dr. Llamas treated with twice daily Protonix and a short run of Carafate. Patient denies having recent melena but states her blood count usually runs around 9 g Patient sees a geology technician in the [place] system she states she is never been told she had a weak heart but he has been following her for valvular heart abnormalities. She was recently started on as needed Lasix for some lower extremity edema which is now significantly worse and has pitting edema all of her thighs. She states that there are times at home where her legs weep fluid Currently in the ER her BNP is elevated her chest x-ray only shows mild failure she has significant peripheral edema she is a distant smoking history but no significant history of COPD and she is unaware of ever been told she had pulmonary hypertension she is an insulin requiring diabetic patient Admission Exam Per Admitting Provider The patient appeared in mild distress and morbidly obese Vital signs as documented. Head exam is unremarkable. normocephalic, atraumatic Neck is with jugular venous distension to the jaw, thyromegaly, or lymphademopathy Lungs are bibasilar fine rales Cardiac exam reveals Rhythm is regular. Systolic ejection murmurs heard at the right upper sternal border Abdominal exam reveals normal bowel sounds, no masses, no organomegaly Extremities are moderate edematous and both legs with pitting edema to the thigh Neurologic exam is A&Ox3, no focal deficits, strength is equal bilateral Psychologically seems neither anxious or depressed Skin is warm Dry without bruises or lesions Principal Diagnosis Acute heart failure with preserved ejection fraction Discharge Exam Constitutional WD/WN, vitals as above Eyes PERRL, conjunctivae normal, anicteric sclerae ENMT external ear and nose normal, oropharynx normal Neck trachea midline, no thyromegaly Respiratory normal respiratory effort, lungs clear to auscultation Cardiovascular Rate/Rhythm: regular rate and regular rhythm Heart Sounds: normal S1 and normal S2; no murmur Vessels: no JVD Extremities: + edema (trace bilaterally) Gastrointestinal (Abdomen) normal bowel sounds, soft, nontender, no hepatosplenomegaly Musculoskeletal no cyanosis or clubbing, extremities motor strength 5/5 Extremities: + limited ROM of extremities (right shoulder due to recent surgery) Skin no rashes, warm and dry Neurologic patellar DTR's 2+ bilat, sensation intact and PERRL, EOMI, accommodation nl, no face palsy, no dysarthria Psychiatric A+Ox3, euthymic affect Lymphatic no cervical or axillary lymphadenopathy Discharge Data Allergies Allergy/AdvReac Type Severity Reaction Status Date / Time Sulfa (Sulfonamide Allergy Mild Rash Verified 10/14/18 10:28 Antibiotics) Bactrim Allergy Unknown RASH Verified 08/17/14 08:01 sulfamethoxazole Allergy Unknown RASH Verified 10/14/18 10:28 trimethoprim Allergy Unknown RASH Verified 10/14/18 10:28 adhesive tape Allergy ITCHING Unverified 01/23/19 17:20 Sulfanilamide Powder AdvReac Uncoded 01/28/19 09:27 Consultations 01/23/19 17:20 ED Decision to Admit Stat 01/23/19 19:21 Consult Case Management - Discharge Planning Routine Hospital Course (1) Heart failure: Here with acute right-sided heart failure with preserved ejection frac tion, EF is 65-70%, moderate pulmonary hypertension seen on echo along with abdominal ascites. With significant lower extremity edema and with abdominal ascites, consistent with right-sided heart failure. She diuresed very well with IV Lasix 40 mg BID Weight is down a significant amount already at -13 lbs, negative fluid balance of several liters will discharge on Lasix 40mg PO daily, potassium supplementation discussed importance of daily weights, she said she will get a scale discussed fluid restriction -Permanently discontinue HCTZ -will need follow-up with her geology technician as an outpatient (2) Pulmonary hypertension: Moderate, seen on echocardiogram here -Most likely secondary to untreated AIMEE and could have component of COPD given [id number] smoking history -Recommend PFTs as an outpatient (3) Anemia: Patient claims of anemia which is likely iron deficiency anemia given the fact that she has significant gastric and duodenal ulcers and received iron infusions in the past. -Hemoglobin stable around 8 the entire visit Ferritin level is normal at 99 but has received iron treatments recently follow up with her furnishings conservator (4) Diabetes mellitus, type 2: With hypoglycemia here relatively on home insulin doses, likely dietary related -Lower Lantus to 18 units twice daily -Continue diabetic diet HbA1c is 5.8% so she is very well controlled -Continue to monitor for hypoglycemia (5) Hypertension: Controlled now with the addition of metoprolol -Continue losartan plus amlodipine, but discontinuing HCTZ as above -Continuing Lasix at 40mg PO daily -Continue new medication of metoprolol tartrate 25 mg p.o. twice daily -Would not increase Amlodipine due to peripheral edema (6) Depression: Stable -Continue Effexor 150 MG daily (7) Aortic stenosis: Mild as seen on echocardiogram -Should be followed over time (8) Mitral regurgitation: Mild as seen on echocardiogram -Should be followed over time (9) Peptic ulcer disease: With multiple cratered ulcers seen on previous EGD with history of anemia -Continue Protonix twice daily (10) DVT prophylaxis: SCDs, teds only due to significant anemia and history of GI bleeding Disposition-remain on telemetry -Continue to diurese until her UO decreases or Cr rises, day to day decision on discharge Total Time Total Time Spent Total Time Spent (In Minutes): 40 minutes Total Time Includes: Examination of the Patient, Discharge Planning and Medication Reconciliation Discharge Plan Discharge Items Patient Disposition: Home - Self-Care Reason For Visit: SYMPTOMATIC ANEMIA Discharge Diagnosis: Acute heart failure with preserved EF Chronic anemia Condition: Good Discharge Goals: Improve disease control and Improve function Activity: Resume your previous activity Activity Comment: please refer to any activity restrictions that were given to you by ortho Non-emergency contact: Primary Care Provider, Surgeon and Operating Room Surgical Technologist Call non-emergency contact if: you have any medication questions, your symptoms worsen, your pain is not controlled and you have a fever Follow-up/Referrals: Rocío Alonso DO [Primary Care Provider] - 01/28/19 9:20 am (A follow up appointment was made with your PCP, Dr. Alonso on Saturday, January 28 at 9:20am. If you have any questions or need to reschedule, please call the office at [phone]) Diet: Carb Consistent or DM2 and Heart Healthy Fluids: 2000ml (8 cups) Addtl Provider Instructions: Medications: - FUROSEMIDE: now recommend taking 40mg daily to keep volume under control - METOPROLOL: started on 25mg twice a day for blood pressure and heart rate cont rol, working well - POTASSIUM: increase dose to 20mEq twice a day, this will offset potassium losses from furosemide - HYDROCHLOROTHIAZIDE: stopped this medication since we are starting daily furosemide and metoprolol Acute onset of heart failure with preserved EF, right sided heart failure responded really well to Lasix IV, down 5.3 liters and down 6kg (13 lbs) renal function stable, potassium down slightly will continue to manage heart failure by using furosemide 40mg daily, metoprolol 25mg twice a day most important way to manage heart failure is to step on scale every morning recommend buying a scale with digital readout step on scale in morning after you urinate and prior to eating breakfast if weight goes up by 2-3 lbs total then you need to call your doctor to discuss increasing Lasix see heart failure instructions below Anemia: chronically low, has ranged between 7.8 and 8.1 while here ferritin level is actually 99 so you iron stores are adequate at this time recommend following up with your furnishings conservator for normally scheduled labs Call 911 and go to the Emergency Room if: * You have tightness or pain in your chest that does not go away with rest or Nitroglycerin * You are very short of breath even with rest Call your doctor if any of the following symptoms or problems start or get worse: * Shortness of breath or difficulty breathing * Wake up at night short of breath * Chest pain * Cough * Swelling of your hands, fee, or legs * More fatigued or tired with your normal activity * Palpitations - sudden fast heart beats WEIGHT * Weigh yourself every morning after using the bathroom. * Use the same scale. * Wear the same amount of clothing. * Write your weight down on your chart. * Call your doctor if you gain more than 2-3 pounds in 1-2 days. MEDICATIONS * Use this discharge instruction sheet for instructions. * Take your medications at the time your doctor ordered. * Do not skip a dose of your medicines. * If you miss a dose of medicine, take as soon as possible, but DO NOT DOUBLE A DOSE. * Read your medicine information when you get home. * Know all of the side effects of your medicine. * Call your doctor's office if you have any side effects. * Be sure all of your doctors know what medicine and herbs you take (including cold, flu, and herbal medicine). * Pain Medicine: If you do not get relief from your pain, please call your doctor for help. Take the following with you to your follow-up doctor appointments: * Weight Chart * Medication List * List of questions Do not drink excessive alcohol, beer or wine. Prescriptions: New potassium chloride [Klor-Con M20] 20 mEq Tablet,Er Particles/Crystals 20 meq PO BID 30 Days Qty: 60 RF: 1 oxycodone 5 mg Tablet 5 mg PO Q6 PRN (Reason: pain) 10 Days Qty: 20 RF: 0 metoprolol tartrate 25 mg Tablet 25 mg PO BID 30 Days Qty: 60 RF: 1 furosemide 40 mg tablet 40 mg PO DAILY Qty: 30 RF: 1 Continued pantoprazole 40 mg tablet,delayed release (DR/EC) 40 mg PO BID Qty: 60 RF: 5 sucralfate [Carafate] 1 gram tablet 1 gm PO ACHS Qty: 40 RF: 0 Discontinued potassium chloride 10 mEq Capsule, Extended Release 20 meq PO QAM RF: 0 hydrochlorothiazide 50 mg Tablet 50 mg PO QAM RF: 0 furosemide 20 mg Tablet 20 mg PO DAILY PRN (Reason: Edema) RF: 0 No Action amlodipine 5 mg tablet 5 mg PO HS Qty: 30 RF: 5 aspirin 81 mg tablet,delayed release (DR/EC) 81 mg PO QAM Qty: 30 RF: 11 Glucagon Emergency Kit (human) 1 mg recon soln 1 mg subcut UD PRN (Reason: Hypoglycemia) Qty: 1 RF: 0 magnesium 250 mg tablet 250 mg PO DAILY Qty: 30 RF: 0 metformin 1,000 mg tablet 1,000 mg PO BID Qty: 60 RF: 0 simvastatin 20 mg tablet 20 mg PO HS Qty: 60 RF: 0 venlafaxine 150 mg tablet extended release 24hr 150 mg PO QAM Qty: 30 RF: 0 folic acid 1 mg tablet 1 mg PO .Take 1 tablet twice Qty: 60 RF: 0 lancets [OneTouch UltraSoft Lancets] misc .ROUTE .MEDSUPPLY Qty: 50 RF: 0 OneTouch Ultra Blue Test Strip strip .ROUTE .MEDSUPPLY Qty: 10 RF: 0 Cosentyx 150 mg/mL syringe subcut RF: 0 insulin lispro [Humalog KwikPen Insulin] 100 unit/mL insulin pen See Patient Comments .ROUTE .COMPLEX RF: 0 Basaglar KwikPen U-100 Insulin 100 unit/mL (3 mL) insulin pen 20 unit SUBCUT QPM Qty: 15 RF: 0 ferrous sulfate 325 mg (65 mg iron) tablet 325 mg PO DAILY RF: 0 pen needle, diabetic 31 gauge x 3/16" needle .ROUTE .MEDSUPPLY Qty: 100 RF: 0 nystatin 100,000 unit/gram powder 1 appln TOP BID Qty: 30 RF: 1 walker misc .ROUTE .MEDSUPPLY Qty: 1 RF: 0 ropinirole 2 mg tablet 2 mg PO HS Qty: 30 RF: 5 Stand-Alone Forms: [facility] Discharge Orders: Discharge Order (Routine); Ordered 01/26/19 Ordered By: Eitan Valencia Admission Data Admit Date/Time: 01/24/19 10:46 Attending Provider: Eitan Valencia Admit Provider: Erik Karimi Primary Care Provider: Rocío Alonso Service: Telemetry Other Interventions: Discharge Summary Assessment (RN) Last Done: 01/26/19 10:24 DC Date/Time DO NOT enter until pt leaves facility: 01/26/19 10:52
== END 2019-01-26 10:52 | disposition home or self-care (01) | DRG 293 ==
LOC: ED 14:06 → 2E 14:06 → SUATTDRO 17:50 → 2E 18:40 → SUATTDRO 01-24 10:46
DX: K21.9 Gastro-esophageal reflux disease without esophagitis; Z79.82 Long term (current) use of aspirin; I50.811 Acute right heart failure; D64.9 Anemia, unspecified; Z68.36 Body mass index [BMI] 36.0-36.9, adult; E78.5 Hyperlipidemia, unspecified; Z79.4 Long term (current) use of insulin; J44.9 Chronic obstructive pulmonary disease, unspecified; F32.9 Major depressive disorder, single episode, unspecified; E11.9 Type 2 diabetes mellitus without complications; Z79.899 Other long term (current) drug therapy; K27.9 Peptic ulcer, site unspecified, unspecified as acute or chronic, without hemorrhage or perforation; E66.01 Morbid (severe) obesity due to excess calories; I08.0 Rheumatic disorders of both mitral and aortic valves; I11.0 Hypertensive heart disease with heart failure

== ENCOUNTER 2019-06-19 11:11 | Inpatient (IN) ==
[2019-06-19] MEDS ORDERED: SODIUM CHLORIDE 0.9% 500 ML IV SCH (12:30)
[2019-06-19 12:56] LABS: Hematocrit (blood only) 26.4 % (37-47); Hemoglobin 8.5 g/dL (12.0-16.0); Mean Corpuscular Hemoglobin 27.9 pg (25-34); Mean Corpuscular Hgb Conc 32.2 g/dL (32-36); Mean Corpuscular Volume 86.6 fL (80-100); RDW Coefficient of Variation 20.3 % (11.5-14.5); RDW Standard Deviation 63.7 fL (36.4-46.3); Red Blood Count 3.05 M/uL (4.2-5.4); White Blood Count 5.87 K/uL (4.8-10.8)
[2019-06-19 13:08] LABS: Albumin Level 1.7 gm/dl (3.4-5.0); BUN Creatinine Ratio 28.5 (10-20); Bilirubin Direct 0.5 mg/dl (0-0.2); Calcium 8.6 mg/dl (8.5-10.1); Creatinine Clr Calc Pharmacy 21.3 ml/min; Est GFR (African American) 24.5; Est GFR (Non-African American) 21.1; Potassium 4.1 mmol/L (3.5-5.1)
[2019-06-19 13:10] LABS: Platelet Count 75 K/uL (130-400)
[2019-06-19 13:11] LABS: Bilirubin,Total 0.9 mg/dl (0.2-1); Total Protein 7.4 gm/dl (6.4-8.2)
[2019-06-19 13:17] LABS: Anisocytosis Present; Basophils # (auto) 0.01 K/uL (0-0.2); Basophils % (auto) 0.2 %; Eosinophils # (auto) 0.14 K/uL (0-0.5); Eosinophils % (auto) 2.4 %; Immature Granulocytes # (auto) 0.03 K/uL (0.00-0.02); Immature Granulocytes % (auto) 0.5 %; Lymphocytes # (auto) 1.46 K/uL (1.2-3.4); Lymphocytes % (auto) 24.9 %; Monocytes % (auto) 6.8 %; Neutrophils # (auto) 3.83 K/uL (1.4-6.5); Neutrophils % (auto) 65.2 %
--- NOTE | 2019-06-19 14:11 | History & Physical Report ---
Date of Service June 19, 2019 Assessment & Plan (1) ARF (acute renal failure): Hold diuretics. Hold Lasix and metolazone. Consult nephrology. Check check urine electrolytes. Check urine and serum osmolality (2) DM type 2 (diabetes mellitus, type 2): Sliding-scale insulin per protocol (3) GERD (gastroesophageal reflux disease): Continue with PPI (4) Liver cirrhosis: GI following.Uncertain etiology, pt denies hx of alcohol use She states it started after prolonged use of Cosentyx for her psoriatic arthritis, she is no longer on this medication (5) Dyslipidemia: Continue statins (6) CHF (congestive heart failure): Stable. (7) Hypertension: Continue home meds. (8) Iron deficiency anemia: (9) Dysphagia: Barium swallow done today. Results noted. Further plan per GI. Consult speech therapy for swallow evaluation. (10) Peptic ulcer disease: Continue PPI. History of Present Illness Chief Complaint: Generalized weakness and dysphagia Primary Care Provider: Rocío Alonso DO The patient is 64-year-old female with history of liver cirrhosis. She presented to the ER today with complaints of generalized weakness. She has history of dysphagia getting worse for the last 2 months. She had barium swallow done today and after she reached back home, her family physician called her and advised her to go to the ER as her blood labs done yesterday show renal sufficiency. Patient has occasional vomiting after eating food. She denies any abdominal pain. No hematemesis. Her labs show acute renal failure. She will be admitted for further evaluation and management. Her son and is present at the bedside. No diarrhea or bloody stools. No abdominal pain. Her recent abdominal ultrasound showed gallstones. Allergies Allergy/AdvReac Type Severity Reaction Status Date / Time Sulfa (Sulfonamide Allergy Mild Rash Verified 06/19/19 12:56 Antibiotics) Bactrim Allergy Unknown RASH Verified 08/17/14 08:01 sulfamethoxazole Allergy Unknown RASH Verified 06/19/19 12:56 trimethoprim Allergy Unknown RASH Verified 06/19/19 12:56 adhesive tape Allergy ITCHING Verified 06/19/19 12:56 amlodipine AdvReac Intermediate confusion Verified 06/19/19 12:56 Home Medications Home Medications Medication Instructions Recorded Confirmed Type aspirin 81 mg tablet,delayed 81 mg PO QAM #30 tab 01/27/19 06/19/19 Rx release glucagon (human recombinant) 1 mg 1 mg SUBCUT UD PRN #1 ea 01/27/19 06/19/19 Rx solution for injection ferrous sulfate 325 mg (65 mg 325 mg PO QAM tab 01/28/19 06/19/19 History iron) tablet folic acid 1 mg tablet 1 mg PO BID #60 tab 04/01/19 06/19/19 History nystatin 1 appln TOP BID PRN 04/08/19 06/19/19 History simvastatin 20 mg PO HS 04/08/19 06/19/19 History carvedilol 3.125 mg tablet 3.125 mg PO BID #60 tab 04/16/19 06/19/19 History metolazone 2.5 mg tablet 2.5 mg PO Q12H #15 tab 04/16/19 06/19/19 History fluticasone propionate 50 2 sprays INTNAS DAILY #16 gm 05/01/19 06/19/19 Rx mcg/actuation nasal spray,suspension adhesive bandage #20 ea 05/18/19 06/19/19 Rx metformin 1,000 mg tablet 500 mg PO BID #60 tab 05/29/19 06/19/19 Rx rifaximin 550 mg tablet 550 mg PO BID #60 tab 06/02/19 06/19/19 Rx ropinirole 2 mg tablet 2 mg PO HS #30 tab 06/02/19 06/19/19 Rx venlafaxine ER 150 mg 150 mg PO QPM #30 tab 06/02/19 06/19/19 Rx tablet,extended release 24 hr potassium chloride ER 10 mEq 10 meq PO DAILY #30 cap 06/03/19 06/19/19 Rx capsule,extended release furosemide 40 mg tablet 40 mg PO DAILY #30 tab 06/08/19 06/19/19 Rx omeprazole magnesium 20 mg 20 mg PO BID #30 tab 06/11/19 06/19/19 Rx tablet,delayed release Past Med/Surg History Medical History Anemia Anxiety Cardiac murmur Diabetes mellitus, type 2 Diverticular disease Duodenal ulcer GERD (gastroesophageal reflux disease) Gastric ulcer Hyperlipidemia Hypertension Nausea and vomiting after administration of anesthetic agent Osteoarthritis Psoriatic arthritis Restless leg syndrome S/P ORIF (open reduction internal fixation) fracture R shoulder, January 2018 Surgical History History of anesthesia reaction difficult to wake after bladder tack sx History of bilateral cataract extraction History of bladder surgery bladder tack History of colonoscopy History of esophagogastroduodenoscopy (EGD) History of hemiarthroplasty of right shoulder January 2018 post fracture History of repair of right rotator cuff History of revision of total shoulder arthroplasty Right shoulder, 12/29/18 History of tooth extraction all teeth Family History Grandmother (Paternal) Family history of diabetes mellitus Father COPD (chronic obstructive pulmonary disease) Mother Hypertension Family/Other Cancer Sister Ovarian cancer Social History Preferred Language: Gibralt[place] Communication Ability: Effective Visual Impairment: Limited Hearing Ability: Normal Set Key Driver Required: No Beliefs That Will Affect Care: None marital status: Current Living Situation: Spouse current occupational status: retired Feels Safe at Home: Yes Smoking Status: Never smoker Second Hand Exposure: No ; Hx Alcohol Use: No Hx Substance Use: No Childhood Exposure to Second-Hand Smoke: Yes Other Diet Comment: regular Dental Care, Regularly: No Physical Activity Frequency: Does not Exercise Seatbelt Use: sometimes Review of Systems Review of Systems: All systems reviewed & are unremarkable except as noted in HPI & below Physical Exam Physical Exam: GENERAL : No acute distress EYES: No icterus, gaze conjugate NOSE: No evidence of epistaxis MOUTH: No lesions or candidiasis, mucosa moist NECK: Supple LUNGS: CTA B/L, no wheezes, rales or rhonchi HEART: Regular, rate controlled ABDOMEN: Soft, NT, ND, BS Present EXTREMITIES: No LE edema, pedal pulses intact NEURO: A&OX3 Results & Data Vital Signs (Past 12 Hours) Vital Signs Temp Pulse Pulse Resp BP BP Pulse Ox 06/19/19 12:46 97 H 18 123/73 97 06/19/19 11:17 97.3 F L 102 H 18 119/63 100 Laboratory Results 06/19/19 12:39 06/19/19 12:39 Diagnostic Findings FL barium swallow CLINICAL HISTORY: Dysphagiadysphasia COMPARISON STUDY: None FLUOROSCOPY TIME: 1.1 minute NUMBER OF FLUOROSCOPIC IMAGES: 28 FINDINGS: The patient initiates his swallowing function well. No evidence for aspiration. The esophagus is normal in course and caliber. Mid to distal child esophageal subtle dysmotility/spasm. Patient ingested the tablet easily was passed easily to the stomach IMPRESSION: 1. Minimal mid to distal esophageal spasm. 2. Otherwise normal study. ULTRASOUND RIGHT UPPER QUADRANT ABDOMEN CLINICAL HISTORY: Nausea and vomiting. Hepatic cirrhosis. COMPARISON STUDY: Abdominal CT dated 08/05/2018. TECHNIQUE: Real-time, grayscale, and color flow sonography of the right upper quadrant of the abdomen was performed. Images are reviewed in the transverse and longitudinal planes. FINDINGS: Liver: The liver is cirrhotic in morphology and heterogeneous in echotexture. There is nodularity of the hepatic surface contour. There is no intrahepatic biliary ductal dilatation. The main portal vein is patent. Gallbladder: There is nonspecific gallbladder wall thickening. The gallbladder wall measures up to 5 mm. Shadowing gallstones are noted. A sonographic Quinones's sign is reportedly absent. The common bile duct measures up to 0.6 cm in diameter. Pancreas: Visualized portions of the pancreatic head and body are normal in appearance. Right kidney: Survey images of the right kidney demonstrate normal size and echotexture. There is no hydronephrosis. Ascites: There is a small to moderate volume of abdominopelvic ascites. IMPRESSION: 1. The liver is cirrhotic in morphology and heterogeneous in echotexture. 2. There is a small to moderate volume of abdominopelvic ascites. 3. Cholelithiasis. 4. Gallbladder wall thickening is nonspecific and likely related to cirrhosis and ascites. A sonographic Quinones's sign is reportedly absent. Correlate c linically for evidence of acute cholecystitis. If there is strong clinical concern for cholecystitis a nuclear hepatobiliary scan could be considered. Code Status & VTE Plan VTE Prophylaxis Plan VTE Prophylaxis will be ordered: Yes PG Care Time/CCT Total # of Minutes Spent Total Time Spent with Patient: Total time spent is greater than 50% in coordination of care (as documented) at patient's floor/unit and/or counseling patient: 60 m (1) CHF (congestive heart failure) Heart failure chronicity: unspecified Heart failure type: unspecified Qualified Code(s): I50.9 - Heart failure, unspecified
[2019-06-19] MEDS: SODIUM CHLORIDE 0.9% 1000ML 1,000 ML IV SCH (16:28)
[2019-06-19] MEDS: CARBOHYDRATES FOR HYPOGLYCEMIA PO PRN (16:42)
[2019-06-19] MEDS ORDERED: GLUCOSE 40% GEL 15 GM TUBE PO PRN (16:45)
[2019-06-19] MEDS ORDERED: GLUCOSE 10 TABS/TUBE PO PRN (16:45)
[2019-06-19] MEDS ORDERED: GLUCAGON FOR INJ 1 MG VIAL IM PRN (16:45)
[2019-06-19] MEDS ORDERED: DEXTROSE 50% 50 ML SYRINGE IV PRN (16:45)
--- NOTE | 2019-06-19 17:05 | Nephrology Consultation ---
Date of Consultation June 19, 2019 Assessment & Plan (1) Acute kidney injury: -- HENRIQUE due to dehydration in the setting of ARB therapy -- Agree w/ stopping Losartan -- Will provide hydration w/ 0.9NS -- Will provide colloid w/ 25g SPA x 3 doses -- Recheck PRP in am -- Will order urinalysis, urine microscopy, spot urine sodium and renal US (2) Chronic kidney disease, stage III (moderate): -- Baseline Cr 1.0 (3) Cirrhosis: -- Non alcoholic. Undergoing [facility] (4) Diabetes: -- Recommend avoiding use of Metformin in the setting of chronic liver disease as this may predispose to ABELARDO -- Will check serum lactate level History of Present Illness Reason for Consultation: HENRIQUE/CKD Attending Physician: Steve Talavera MD History of Present Illness Mrs. Sherman is a 64 year old white female who is seen at the request of Dr. Sigala for evaluation of HENRIQUE/CKD. Medical records in the EMR were reviewed today and are summarized as follows: Mrs. Sherman has stage III CKD (moderate impairment). Baseline Cr ~ 1.0 w/ EGFR 55 cc/min. Her medical history is significant for HTN, AODM, cirrhosis and psoriasis. Mrs. Sherman has been on Losartan for her HTN and Metformin for her DM. One month ago she was diagnosed w/ R foot cellulitis. She was treated w/ several different antibiotics and gradually improved. Her clinical course was complicated by recurrent N/V and dehydration. Her PCP discontinued Losartan but laboratory studies revealed Cr has risen from baseline 1.0 to 2.4. Patient was then referred to [facility] for inpatient medical care. Allergies Allergy/AdvReac Type Severity Reaction Status Date / Time Sulfa (Sulfonamide Allergy Mild Rash Verified 06/19/19 12:56 Antibiotics) Bactrim Allergy Unknown RASH Verified 08/17/14 08:01 sulfamethoxazole Allergy Unknown RASH Verified 06/19/19 12:56 trimethoprim Allergy Unknown RASH Verified 06/19/19 12:56 adhesive tape Allergy ITCHING Verified 06/19/19 12:56 amlodipine AdvReac Intermediate confusion Verified 06/19/19 12:56 Home Medications Home Medications Medication Instructions Recorded Confirmed Type aspirin 81 mg tablet,delayed 81 mg PO QAM #30 tab 01/27/19 06/19/19 Rx release glucagon (human recombinant) 1 mg 1 mg SUBCUT UD PRN #1 ea 01/27/19 06/19/19 Rx solution for injection ferrous sulfate 325 mg (65 mg 325 mg PO QAM tab 01/28/19 06/19/19 History iron) tablet folic acid 1 mg tablet 1 mg PO BID #60 tab 04/01/19 06/19/19 History nystatin 1 appln TOP BID PRN 04/08/19 06/19/19 History simvastatin 20 mg PO HS 04/08/19 06/19/19 History carvedilol 3.125 mg tablet 3.125 mg PO BID #60 tab 04/16/19 06/19/19 History metolazone 2.5 mg tablet 2.5 mg PO Q12H #15 tab 04/16/19 06/19/19 History fluticasone propionate 50 2 sprays INTNAS DAILY #16 gm 05/01/19 06/19/19 Rx mcg/actuation nasal spray,suspension adhesive bandage #20 ea 05/18/19 06/19/19 Rx metformin 1,000 mg tablet 500 mg PO BID #60 tab 05/29/19 06/19/19 Rx rifaximin 550 mg tablet 550 mg PO BID #60 tab 06/02/19 06/19/19 Rx ropinirole 2 mg tablet 2 mg PO HS #30 tab 06/02/19 06/19/19 Rx venlafaxine ER 150 mg 150 mg PO QPM #30 tab 06/02/19 06/19/19 Rx tablet,extended release 24 hr potassium chloride ER 10 mEq 10 meq PO DAILY #30 cap 06/03/19 06/19/19 Rx capsule,extended release furosemide 40 mg tablet 40 mg PO DAILY #30 tab 06/08/19 06/19/19 Rx omeprazole magnesium 20 mg 20 mg PO BID #30 tab 06/11/19 06/19/19 Rx tablet,delayed release Patient History Medical History Anemia Anxiety Cardiac murmur Diabetes mellitus, type 2 Diverticular disease Duodenal ulcer GERD (gastroesophageal reflux disease) Gastric ulcer Hyperlipidemia Hypertension Nausea and vomiting after administration of anesthetic agent Osteoarthritis Psoriatic arthritis Restless leg syndrome S/P ORIF (open reduction internal fixation) fracture R shoulder, January 2018 Surgical History History of anesthesia reaction difficult to wake after bladder tack sx History of bilateral cataract extraction History of bladder surgery bladder tack History of colonoscopy History of esophagogastroduodenoscopy (EGD) History of hemiarthroplasty of right shoulder January 2018 post fracture History of repair of right rotator cuff History of revision of total shoulder arthroplasty Right shoulder, 12/29/18 History of tooth extraction all teeth Family History Grandmother (Paternal) Family history of diabetes mellitus Father COPD (chronic obstructive pulmonary disease) Mother Hypertension Family/Other Cancer Sister Ovarian cancer Social History Preferred Language: Bulgarian Communication Ability: Effective Visual Impairment: Limited Hearing Ability: Normal Communication Studies Professor Required: No Beliefs That Will Affect Care: None marital status: Current Living Situation: Spouse current occupational status: retired Feels Safe at Home: Yes Smoking Status: Never smoker Second Hand Exposure: No ; Hx Alcohol Use: No Hx Substance Use: No Childhood Exposure to Second-Hand Smoke: Yes Other Diet Comment: regular Dental Care, Regularly: No Physical Activity Frequency: Does not Exercise Seatbelt Use: sometimes Review of Systems Constitutional: no fever and no chills Eyes: no worsening vision and no problem reported Ear, Nose, Mouth, Throat: no problem reported Respiratory: no cough and no dyspnea Cardiovascular: no chest pain, no palpitations and no edema Gastrointestinal: + bloating, + nausea and + vomiting; no abdominal pain and no diarrhea/loose stools Genitourinary: no dysuria and no hematuria Musculoskeletal: no back pain Integumentary: no rash Neurologic: no confusion Physical Exam Constitutional: + frail appearing; not in distress Eyes: PERRL, conjunctivae normal, anicteric sclerae ENMT: Mouth: + dry oral mucous membranes and + edentulous Neck: trachea midline, no thyromegaly Respiratory: normal respiratory effort, lungs clear to auscultation Cardiovascular: RRR, no murmur, no edema Gastrointestinal (Abdomen): Inspection/Auscultation: + abdomen distended Percussion/Palpation: abdomen nontender Musculoskeletal: Extremities: no cyanosis Skin: no rashes, warm and dry Neurologic: awake; not confused Results & Data Vital Signs (Past 12 Hours) Vital Signs Temp Pulse Pulse Resp BP BP Pulse Ox 06/19/19 16:17 36.6 C 100 H 19 133/83 97 06/19/19 14:57 80 18 150/78 H 97 06/19/19 14:16 97 H 18 138/79 97 06/19/19 12:46 97 H 18 123/73 97 06/19/19 11:17 36.3 C L 102 H 18 119/63 100 Laboratory Results Laboratory Results - last 24 hr 06/19/19 06/19/19 06/19/19 12:39 12:39 15:46 WBC 5.87 RBC 3.05 L Hgb 8.5 L Hct 26.4 L MCV 86.6 MCH 27.9 MCHC 32.2 RDW Std Deviation 63.7 H RDW Coeff of Karina 20.3 H Plt Count 75 L MPV 10.0 Immature Gran % (Auto) 0.5 Neut % (Auto) 65.2 Lymph % (Auto) 24.9 Daniels % (Auto) 6.8 Eos % (Auto) 2.4 Baso % (Auto) 0.2 Immature Gran # (Auto) 0.03 H Neut # (Auto) 3.83 Lymph # (Auto) 1.46 Daniels # (Auto) 0.40 Eos # (Auto) 0.14 Baso # (Auto) 0.01 Anisocytosis Present Sodium 142 Potassium 4.1 Chloride 109 H Carbon Dioxide 21 Anion Gap 12.0 H BUN 68 H Creatinine 2.37 H Est Cr Clr Drug Dosing 21.3 Est GFR ( Amer) 24.5 Est GFR (Non-Af Amer) 21.1 BUN/Creatinine Ratio 28.5 H Glucose 60 L POC Glucose Osmolality 317 H Calcium 8.6 Total Bilirubin 0.9 Direct Bilirubin 0.5 H AST 33 ALT 22 Alkaline Phosphatase 159 H Total Creatine Kinase 40 Total Protein 7.4 Albumin 1.7 L Lipase 111 06/19/19 06/19/19 06/19/19 16:29 16:30 17:01 WBC RBC Hgb Hct MCV MCH MCHC RDW Std Deviation RDW Coeff of Karina Plt Count MPV Immature Gran % (Auto) Neut % (Auto) Lymph % (Auto) Daniels % (Auto) Eos % (Auto) Baso % (Auto) Immature Gran # (Auto) Neut # (Auto) Lymph # (Auto) Daniels # (Auto) Eos # (Auto) Baso # (Auto) Anisocytosis Sodium Potassium Chloride Carbon Dioxide Anion Gap BUN Creatinine Est Cr Clr Drug Dosing Est GFR ( Amer) Est GFR (Non-Af Amer) BUN/Creatinine Ratio Glucose POC Glucose 52 L* 54 L* 100 H Osmolality Calcium Total Bilirubin Direct Bilirubin AST ALT Alkaline Phosphatase Total Creatine Kinase Total Protein Albumin Lipase PG Care Time/CCT Total # of Minutes Spent Total Time Spent with Patient: Total time spent is greater than 50% in coordination of care (as documented) at patient's floor/unit and/or counseling patient:
[2019-06-19] MEDS: INSULIN ASPART 100 UNITS/ML 3 ML PEN SC SCH ×2 (17:40→21:11)
--- NOTE | 2019-06-19 18:11 | Emergency Department Note ---
Entered by Danielle Mccoy acting as a scribe for History of Present Illness General Chief complaint: Abnormal Labs/Diagnostic Testing Stated complaint: LAB WORK- LIVER KIDNEY DOC REF Time Seen by Provider: 06/19/19 12:06 Source: patient and family History of Present Illness Onset (ago): day(s) 1 Location: head (general) Pain Consistency: + other (episode) Quality: + other (abnormal labs) Associated symptoms: + nausea/vomiting (at baseline) and + other (positive decr eased urine output; negative blood in urine; negative jernigan with urination) The patient is a 64 year old female who presents to the Emergency Room with complaints of an episode of abnormal labs on blood work that was drawn yesterday. The patient states that she had labs drawn yesterday and a barium swallow performed this morning. She states that she barely had any urine output this morning. The patient denies blood in her urine and pain with urination. She states that she has nausea and vomiting at baseline. The patient's family reports that the patient had an ultrasound performed recently that showed gallstones. Home Medications Home Medications Medication Instructions Recorded Confirmed Type aspirin 81 mg tablet,delayed 81 mg PO QAM #30 tab 01/27/19 06/19/19 Rx release glucagon (human recombinant) 1 mg 1 mg SUBCUT UD PRN #1 ea 01/27/19 06/19/19 Rx solution for injection ferrous sulfate 325 mg (65 mg 325 mg PO QAM tab 01/28/19 06/19/19 History iron) tablet folic acid 1 mg tablet 1 mg PO BID #60 tab 04/01/19 06/19/19 History nystatin 1 appln TOP BID PRN 04/08/19 06/19/19 History simvastatin 20 mg PO HS 04/08/19 06/19/19 History carvedilol 3.125 mg tablet 3.125 mg PO BID #60 tab 04/16/19 06/19/19 History metolazone 2.5 mg tablet 2.5 mg PO Q12H #15 tab 04/16/19 06/19/19 History fluticasone propionate 50 2 sprays INTNAS DAILY #16 gm 05/01/19 06/19/19 Rx mcg/actuation nasal spray,suspension adhesive bandage #20 ea 05/18/19 06/19/19 Rx metformin 1,000 mg tablet 500 mg PO BID #60 tab 05/29/19 06/19/19 Rx rifaximin 550 mg tablet 550 mg PO BID #60 tab 06/02/19 06/19/19 Rx ropinirole 2 mg tablet 2 mg PO HS #30 tab 06/02/19 06/19/19 Rx venlafaxine ER 150 mg 150 mg PO QPM #30 tab 06/02/19 06/19/19 Rx tablet,extended release 24 hr potassium chloride ER 10 mEq 10 meq PO DAILY #30 cap 06/03/19 06/19/19 Rx capsule,extended release furosemide 40 mg tablet 40 mg PO DAILY #30 tab 06/08/19 06/19/19 Rx omeprazole magnesium 20 mg 20 mg PO BID #30 tab 06/11/19 06/19/19 Rx tablet,delayed release Allergies Allergy/AdvReac Type Severity Reaction Status Date / Time Sulfa (Sulfonamide Allergy Mild Rash Verified 06/19/19 12:56 Antibiotics) Bactrim Allergy Unknown RASH Verified 08/17/14 08:01 sulfamethoxazole Allergy Unknown RASH Verified 06/19/19 12:56 trimethoprim Allergy Unknown RASH Verified 06/19/19 12:56 adhesive tape Allergy ITCHING Verified 06/19/19 12:56 amlodipine AdvReac Intermediate confusion Verified 06/19/19 12:56 Past Med/Surg History Medical History Anemia Anxiety Cardiac murmur Diabetes mellitus, type 2 Diverticular disease Duodenal ulcer GERD (gastroesophageal reflux disease) Gastric ulcer Hyperlipidemia Hypertension Nausea and vomiting after administration of anesthetic agent Osteoarthritis Psoriatic arthritis Restless leg syndrome S/P ORIF (open reduction internal fixation) fracture R shoulder, January 2018 Surgical History History of anesthesia reaction difficult to wake after bladder tack sx History of bilateral cataract extraction History of bladder surgery bladder tack History of colonoscopy History of esophagogastroduodenoscopy (EGD) History of hemiarthroplasty of right shoulder January 2018 post fracture History of repair of right rotator cuff History of revision of total shoulder arthroplasty Right shoulder, 12/29/18 History of tooth extraction all teeth Family History Grandmother (Paternal) Family history of diabetes mellitus Father COPD (chronic obstructive pulmonary disease) Mother Hypertension Family/Other Cancer Sister Ovarian cancer Social History Preferred Language: Albanian Communication Ability: Effective Visual Impairment: Limited Hearing Ability: Normal Human Resources Operations Director Required: No Beliefs That Will Affect Care: None marital status: Current Living Situation: Spouse current occupational status: retired Feels Safe at Home: Yes Smoking Status: Never smoker Second Hand Exposure: No ; Hx Alcohol Use: No Hx Substance Use: No Childhood Exposure to Second-Hand Smoke: Yes Other Diet Comment: regular Dental Care, Regularly: No Physical Activity Frequency: Does not Exercise Seatbelt Use: sometimes Review of Systems See HPI for pertinent positives & negatives. and A total of 10 systems reviewed and were otherwise negative Physical Exam Vital Signs Vital Signs - 24 hr 06/19/19 11:17 06/19/19 12:46 Temperature 36.3 C L Temperature Source Oral Sepsis Recent Fever Within 48 Hours No Sepsis New/Unexplained Change in Mental Status No Sepsis Action Taken by Nursing No Action Required Pulse Rate 102 H Pulse Rate [Apical] 97 H Respiratory Rate 18 18 Respiratory Effort / Characteristics Non-Labored Spontaneous Respiratory Depth Normal Blood Pressure 119/63 Blood Pressure [Left Arm] 123/73 Blood Pressure Mean 81 Blood Pressure Mean [Left Arm] 89 Blood Pressure Position Sitting Pulse Oximetry 100 97 Oxygen Delivery Method Room Air Room Air GENERAL: She is oriented to person, place, and time. She appears well-developed and well-nourished. She does not appear distressed. HENT: Exam performed. - Head: Normocephalic and atraumatic. - Right Ear: External ear normal. No mastoid tenderness. - Left Ear: External ear normal. No mastoid tenderness. - Mouth/Throat: The oropharynx is clear and moist. No trismus in the jaw. No dental abscesses or uvula swelling. No oropharyngeal exudate or tonsillar abscesses. EYES: Conjunctivae and EOM are normal. Pupils are equal, round, and reactive to light. Right eye exhibits no discharge. Left eye exhibits no discharge. No scleral icterus. NECK: Normal range of motion. Neck supple. No JVD present. No spinous process tenderness present. No carotid bruit present. No rigidity. No tracheal deviation and normal range of motion present. No Brudzinski's sign and no Kernig's sign noted. CV: Normal rate, regular rhythm, and intact distal pulses. Systolic murmur. There is no peripheral edema. Palpable radial pulses bue. PULM/CHEST: Effort normal and breath sounds normal. No respiratory distress. No stridor. She has no wheezes. She has no rales. Chest Wall: She exhibits no tenderness. ABD: The abdomen is soft. Bowel sounds are normal. She has no distension. No mass is present. There is no tenderness. There is no rebound, no guarding, no Quinones's sign and no tenderness at McBurney's point. Rovsig negative. Hepatomegaly. MUSC/SKEL: Normal range of motion. There is no peripheral edema, tenderness or deformity. LYMPH: No cervical adenopathy. NEURO: She is alert and oriented to person, place, and time. She has normal strength. No cranial nerve deficit or sensory deficit. Coordination and gait normal. GCS eye subscore is 4. GCS verbal subscore is 5. GCS motor subscore is 6. cerbellar tests wnl. SKIN: Skin is warm and dry. She is not diaphoretic. PSYCH: She has a normal mood and affect. Her behavior is normal. Judgment and thought content normal. Course 1226: Past medical records reviewed. The patient was evaluated in room C7. A complete history and physical exam was performed. The patient's EMR was reviewed. The patient had lab work performed yesterday that showed a hemoglobin of 8.4, BUN of 66, creatinine of 2.45 with a baseline creatinine of 1.3. The patient had a barium swallow performed this morning that showed a mild esophageal spasm. And abdominal ultrasound on 06/12 showed cirrhotic morphology of the liver and a moderate amount of ascites. The patient has a history of diabetes, GERD, anemia, cirrhosis, aortic stenosis, CHF, pulmonary artery hypertension, ad mitral regurgitation. 1335: The patient's vital signs are stable. Her labs confirm acute kidney injury. Judicious fluids given given her history of aortic stenosis. I discussed the case with Dr. Talavera-[facility] Hospitalist who accepts the patient for further evaluation. Administered Medications Sodium Chloride (Nss 1000ml) 1,000 mls @ 60 mls/hr IV .[id number] BOBBY Stop: 07/19/19 15:01 Last Admin: 06/19/19 16:28 Dose: 60 mls/hr Documented by: [id number] Insulin Aspart (Novolog Flexpen) 0 units SC ACHS BOBBY Stop: 07/19/19 16:29 Last Admin: 06/19/19 17:40 Dose: Not Given Documented by: [id number] Cosigned by: [id number] Miscellaneous (Carbohydrates For Hypoglycemia) 15 - 30 gm PO UD PRN PRN Reason: Hypoglycemia Treatment Stop: 07/19/19 16:44 Last Admin: 06/19/19 16:42 Dose: 15 gm Documented by: [id number] Discontinued Medications Sodium Chloride (Nss) 500 mls @ 125 mls/hr IV .Q4H BOBBY Stop: 07/19/19 12:29 Last Infusion: 06/19/19 16:11 Dose: 0 mls/hr Documented by: [id number] Admin: 06/19/19 12:46 Dose: 125 mls/hr Documented by: [id number] Medical Decision Making Medical Records Attestation: I reviewed the patient's medical records. Home Medications Current Medication List: was personally reviewed by me Laboratory Data Attestation: I reviewed the patient's lab results. Result diagrams: 06/19/19 12:39 06/19/19 12:39 Lab Results 06/19/19 06/19/19 Range/Units 12:39 12:39 WBC 5.87 (4.8-10.8) K/uL RBC 3.05 L (4.2-5.4) M/uL Hgb 8.5 L (12.0-16.0) g/dL Hct 26.4 L (37-47) % MCV 86.6 (80-100) fL MCH 27.9 (25-34) pg MCHC 32.2 (32-36) g/dL RDW Std Deviation 63.7 H (36.4-46.3) fL RDW Coeff of Karina 20.3 H (11.5-14.5) % Plt Count 75 L (130-400) K/uL MPV 10.0 (7.4-10.4) fL Immature Gran % (Auto) 0.5 % Neut % (Auto) 65.2 % Lymph % (Auto) 24.9 % [place] % (Auto) 6.8 % Eos % (Auto) 2.4 % Baso % (Auto) 0.2 % Immature Gran # (Auto) 0.03 H (0.00-0.02) K/uL Neut # (Auto) 3.83 (1.4-6.5) K/uL Lymph # (Auto) 1.46 (1.2-3.4) K/uL [place] # (Auto) 0.40 (0.11-0.59) K/uL Eos # (Auto) 0.14 (0-0.5) K/uL Baso # (Auto) 0.01 (0-0.2) K/uL Anisocytosis Present Sodium 142 (136-145) mmol/L Potassium 4.1 (3.5-5.1) mmol/L Chloride 109 H (98-107) mmol/L Carbon Dioxide 21 (21-32) mmol/L Anion Gap 12.0 H (3-11) BUN 68 H (7-18) mg/dl Creatinine 2.37 H (0.6-1.2) mg/dl Est Cr Clr Drug Dosing 21.3 ml/min Est GFR ( Amer) 24.5 Est GFR (Non-Af Amer) 21.1 BUN/Creatinine Ratio 28.5 H (10-20) Glucose 60 L (70-99) mg/dl Calcium 8.6 (8.5-10.1) mg/dl Total Bilirubin 0.9 (0.2-1) mg/dl Direct Bilirubin 0.5 H (0-0.2) mg/dl AST 33 (15-37) U/L ALT 22 (12-78) U/L Alkaline Phosphatase 159 H (45-117) U/L Total Creatine Kinase 40 (26-192) U/L Total Protein 7.4 (6.4-8.2) gm/dl Albumin 1.7 L (3.4-5.0) gm/dl Lipase 111 (73-393) U/L Blood Pressure Blood Pressure Findings: Elevated blood pressure Blood Pressure Disposition: further management by hospitalist OBEY Narrative 1226: Past medical records reviewed. The patient was evaluated in room C7. A complete history and physical exam was performed. The patient's EMR was reviewed. The patient had lab work performed yesterday that showed a hemoglobin of 8.4, BUN of 66, creatinine of 2.45 with a baseline creatinine of 1.3. The patient had a barium swallow performed this morning that showed a mild esophageal spasm. And abdominal ultrasound on 06/12 showed cirrhotic morphology of the liver and a moderate amount of ascites. The patient has a history of diabetes, GERD, anemia, cirrhosis, aortic stenosis, CHF, pulmonary artery hypertension, ad mitral regurgitation. 1335: The patient's vital signs are stable. Her labs confirm acute kidney injury. Judicious fluids given given her history of aortic stenosis. I discussed the case with Dr. Talavera-[facility] Hospitalist who accepts the patient for further evaluation. Impression & Plan Acute kidney injury Discharge Plan Visit Data *Final* Discharge Date/Time: 06/19/19 14:57 Chief Complaint: Abnormal Labs/Diagnostic Testing Stated Complaint: LAB WORK- LIVER KIDNEY DOC REF ED Provider: Mahendra Garcia Discharge Problem: Acute kidney injury Patient Disposition: Admitted As Inpatient Discharge Instructions Interventions: ED Discharge Assessment Last Done: 06/19/19 14:57 The scribe's documentation has been prepared under my direction and personally reviewed by me in its entirety. I confirm that the note above accurately reflects all work, treatment, procedures, and medical decision making performed by me.
[2019-06-19] MEDS: ALBUMIN 25% 100 ML IV SCH (18:22)
[2019-06-19] MEDS: RIFAXIMIN 550 MG TABLET PO SCH (20:35)
[2019-06-19] MEDS: PANTOprazole 40 MG TAB PO SCH (20:35)
[2019-06-19] MEDS: CARVEDILOL 3.125 MG TAB PO SCH (20:35)
[2019-06-19] MEDS: VENLAFAXINE HCL XR 150 MG CAPXR PO SCH (20:35)
[2019-06-19] MEDS: SIMVASTATIN 20 MG TAB PO SCH (20:35)
[2019-06-19] MEDS: ROPINIROLE HCL 1 MG TABLET PO SCH (20:35)
[2019-06-19] MEDS: FOLIC ACID 1 MG TAB PO SCH (20:35)
--- NOTE | 2019-06-19 22:16 | Ultrasound Report ---
RENAL ULTRASOUND CLINICAL HISTORY: Acute kidney injury. COMPARISON STUDY: CT of the abdomen and pelvis August 05, 2018. Abdominal ultrasound June 12. TECHNIQUE: Sonography of the kidneys and the urinary bladder was performed. FINDINGS: Incidental note is made of cirrhosis and a small amount of ascites within the abdomen and p sujatha. There is no hydronephrosis. The kidneys are echogenic. The right kidney measures 11.4 x 5.4 x 4.3 cm and the left kidney measures 11.5 x 5.4 x 4.6 cm. A 1.1 cm left renal cyst is noted. Both uret eral jets were identified. IMPRESSION: 1. No hydronephrosis. 2. Cirrhosis with a small amount of ascites. Electronically signed by: Henry Rinaldi M.D. 06/19/2019 10:14 PM
[2019-06-20 06:25] LABS: Hemoglobin 6.3 g/dL (12.0-16.0); Mean Corpuscular Hemoglobin 28.6 pg (25-34); Mean Corpuscular Hgb Conc 33.2 g/dL (32-36); Mean Corpuscular Volume 86.4 fL (80-100); RDW Coefficient of Variation 20.3 % (11.5-14.5); RDW Standard Deviation 63.4 fL (36.4-46.3); White Blood Count 2.93 K/uL (4.8-10.8)
[2019-06-20] MEDS ORDERED: SODIUM CHLORIDE 0.9% 250 ML IV PRN ×2 (06:35→14:10)
[2019-06-20 06:43] LABS: Albumin Level 1.7 gm/dl (3.4-5.0); BUN Creatinine Ratio 29.5 (10-20); Bilirubin Direct 0.4 mg/dl (0-0.2); Calcium 7.8 mg/dl (8.5-10.1); Creatinine Clr Calc Pharmacy 25.6 ml/min; Est GFR (African American) 30.2; Est GFR (Non-African American) 26.1; Magnesium 1.6 mg/dl (1.8-2.4); Potassium 3.8 mmol/L (3.5-5.1)
[2019-06-20 06:53] LABS: Albumin Globulin Ratio 0.4 (0.9-2); Bilirubin,Total 0.9 mg/dl (0.2-1); Globulin 4.2 gm/dl (2.5-4.0); Mean Platelet Volume 9.4 fL (7.4-10.4); Platelet Count 42 K/uL (130-400); Total Protein 5.9 gm/dl (6.4-8.2)
[2019-06-20 07:04] LABS: Hematocrit (blood only) 19.5 % (37-47); Hemoglobin 6.5 g/dL (12.0-16.0)
[2019-06-20] MEDS: CARBOHYDRATES FOR HYPOGLYCEMIA PO PRN (07:47)
[2019-06-20] MEDS: SODIUM CHLORIDE 0.9% 1000ML 1,000 ML IV SCH (07:51)
[2019-06-20] MEDS: INSULIN ASPART 100 UNITS/ML 3 ML PEN SC SCH ×4 (07:53→20:56)
[2019-06-20] MEDS: MAGNESIUM SULFATE / D5W 1 GM/100 ML BAG IV SCH ×2 (08:02→08:54)
[2019-06-20] MEDS: ASPIRIN 81 MG ECTAB PO SCH (08:07)
[2019-06-20] MEDS: PANTOprazole 40 MG TAB PO SCH ×2 (08:07→20:49)
[2019-06-20] MEDS: RIFAXIMIN 550 MG TABLET PO SCH ×2 (08:07→20:49)
[2019-06-20] MEDS: CARVEDILOL 3.125 MG TAB PO SCH ×2 (08:08→20:49)
[2019-06-20] MEDS: FOLIC ACID 1 MG TAB PO SCH ×2 (08:08→20:49)
[2019-06-20 08:49] LABS: Fibrinogen 165 mg/dl (184-400); Iron 35 mcg/dl (35-150); Total Iron Binding Capacity 124 mcg/dl (250-450); Transferrin 83 mg/dl (200-360); Transferrin Percent Saturation 30 % (15-50)
[2019-06-20 09:23] LABS: Vitamin B12 1223 pg/ml (211-911)
[2019-06-20 09:24] LABS: Folate (Folic Acid) > 24.00 ng/ml (>5.38)
[2019-06-20] MEDS: ALBUMIN 25% 100 ML IV SCH ×2 (09:27→13:16)
[2019-06-20 09:53] LABS: INR 1.6 (0.9-1.1); Prothrombin Time 15.7 Seconds (9.0-12.0)
[2019-06-20] MEDS ORDERED: LIDOCAINE/EPINEPHRINE 2% 1:200,000 20 ML SDV INFIL STA (10:06)
--- NOTE | 2019-06-20 10:09 | Nephrology Progress Note ---
Date of Service June 20, 2019 Assessment & Plan (1) Acute kidney injury: -- HENRIQUE due to dehydration in the setting of ARB therapy. Creatinine trending down w/ hydration -- Continue to hold Losartan -- Continue gentle hydration w/ 0.9NS -- Recheck PRP in am -- Renal US negative for obstruction. Urine studies pending (2) Chronic kidney disease, stage III (moderate): -- Baseline Cr 1.0 (3) Cirrhosis: -- Non alcoholic. Undergoing [place] [facility] (4) Diabetes: -- Recommend avoiding use of Metformin in the setting of chronic liver disease as this may predispose to ABELARDO -- Serum lactate level was normal (5) Anemia: -- Abrupt drop in Hgb overnight. Recommend rechecking Hgb and transfusing to maintain Hgb > 8.0 [address] Mrs. Sherman was seen & examined in her hospital room this morning. She reports that she is tolerating IV hydration without dyspnea or progressive swelling. Hgb has dropped to 6.5 this am. Mrs. Sherman denies overt blood loss. Review of Systems Constitutional: + weakness; no fever and no chills Eyes: no worsening vision and no problem reported Ear, Nose, Mouth, Throat: no problem reported Respiratory: no cough and no dyspnea Cardiovascular: no chest pain, no palpitations and no edema Gastrointestinal: + bloating and + nausea; no abdominal pain, no vomiting and no diarrhea/loose stools Genitourinary: no dysuria and no hematuria Musculoskeletal: no back pain Integumentary: no rash Neurologic: no falls, no dizziness and no confusion Physical Exam Constitutional: + frail appearing; not in distress Eyes: PERRL, conjunctivae normal, anicteric sclerae ENMT: Mouth: + dry oral mucous membranes and + edentulous Neck: trachea midline, no thyromegaly Respiratory: normal respiratory effort, lungs clear to auscultation Cardiovascular: RRR, no murmur, no edema Gastrointestinal (Abdomen): Inspection/Auscultation: + abdomen distended Percussion/Palpation: abdomen nontender Musculoskeletal: Extremities: no cyanosis Skin: no rashes, warm and dry Neurologic: awake; not confused Results & Data Vital Signs (Past 12 Hours) Vital Signs Temp Pulse Pulse Resp BP Pulse Ox 06/20/19 07:32 36.8 C 85 16 123/64 94 06/20/19 06:28 83 20 110/65 98 06/20/19 04:33 37.0 C 84 20 99/62 L 94 06/19/19 23:40 94 H 06/19/19 23:00 36.9 C 92 H 18 123/76 96 Laboratory Results Laboratory Tests 06/20/19 06/20/19 06/20/19 05:36 05:36 06:46 WBC 2.93 L Hgb 6.5 L* Hct 19.5 L* Plt Count 42 L Sodium 145 Potassium 3.8 Chloride 112 H Carbon Dioxide 25 BUN 59 H Creatinine 1.99 H D Glucose 55 L Calcium 7.8 L Magnesium 1.6 L Albumin 1.7 L PG Care Time/CCT Total # of Minutes Spent Total Time Spent with Patient: Total time spent is greater than 50% in coordination of care (as documented) at patient's floor/unit and/or counseling patient:
--- NOTE | 2019-06-20 10:24 | History & Physical Report ---
Date of Service June 20, 2019 Assessment & Plan (1) Anemia: Patient with a history of cirrhosis related to fatty infiltration of the liver presented with renal failure. She did get IV hydration yesterday and has a significant decrease in her white blood cell count, platelet count and hemo globin. Given this I wonder if this is a delusional effect as the patient does not seem to have overt signs of gastrointestinal bleeding. For the present time I would recommend that you begin the patient on ceftriaxone 1 times daily as she does have ascites. Should the patient develop any signs suggestive of gastrointestinal bleeding we could certainly then offer endoscopic evaluation. Recommendations Please start ceftriaxone 1 time daily Recommend discontinuation of metformin Clear liquids only If patient develops any signs suggestive of bleeding please let me know as would then offer a repeat upper endoscopy History of Present Illness Chief Complaint: Cirrhosis Primary Care Provider: Rocío Alonso, 64-year-old female with a history of cirrhosis thought to be related to fatty infiltration of the liver who presented to the emergency room after she was found to have worsening renal failure. The patient denies having black sticky stool, hematochezia, hematemesis or other sites of bleeding. She has had several endoscopic procedures over the past few years to include a recent upper endoscopy in September which did show a low-grade varices. She has a report of peptic ulcer disease as well. The patient was recently seen by her regular GI provider for nausea and vomiting, a right upper quadrant ultrasound did show evidence of cholelithiasis without evidence of obstruction. She also has small volume ascites noted on the same study. Today the patient notes that other than weakness she is in her usual state of health. Allergies Allergy/AdvReac Type Severity Reaction Status Date / Time Sulfa (Sulfonamide Allergy Mild Rash Verified 06/19/19 12:56 Antibiotics) Bactrim Allergy Unknown RASH Verified 08/17/14 08:01 sulfamethoxazole Allergy Unknown RASH Verified 06/19/19 12:56 trimethoprim Allergy Unknown RASH Verified 06/19/19 12:56 adhesive tape Allergy ITCHING Verified 06/19/19 12:56 amlodipine AdvReac Intermediate confusion Verified 06/19/19 12:56 Home Medications Home Medications Medication Instructions Recorded Confirmed Type aspirin 81 mg tablet,delayed 81 mg PO QAM #30 tab 01/27/19 06/19/19 Rx release glucagon (human recombinant) 1 mg 1 mg SUBCUT UD PRN #1 ea 01/27/19 06/19/19 Rx solution for injection ferrous sulfate 325 mg (65 mg 325 mg PO QAM tab 01/28/19 06/19/19 History iron) tablet folic acid 1 mg tablet 1 mg PO BID #60 tab 04/01/19 06/19/19 History nystatin 1 appln TOP BID PRN 04/08/19 06/19/19 History simvastatin 20 mg PO HS 04/08/19 06/19/19 History carvedilol 3.125 mg tablet 3.125 mg PO BID #60 tab 04/16/19 06/19/19 History metolazone 2.5 mg tablet 2.5 mg PO Q12H #15 tab 04/16/19 06/19/19 History fluticasone propionate 50 2 sprays INTNAS DAILY #16 gm 05/01/19 06/19/19 Rx mcg/actuation nasal spray,suspension adhesive bandage #20 ea 05/18/19 06/19/19 Rx metformin 1,000 mg tablet 500 mg PO BID #60 tab 05/29/19 06/19/19 Rx rifaximin 550 mg tablet 550 mg PO BID #60 tab 06/02/19 06/19/19 Rx ropinirole 2 mg tablet 2 mg PO HS #30 tab 06/02/19 06/19/19 Rx venlafaxine ER 150 mg 150 mg PO QPM #30 tab 06/02/19 06/19/19 Rx tablet,extended release 24 hr potassium chloride ER 10 mEq 10 meq PO DAILY #30 cap 06/03/19 06/19/19 Rx capsule,extended release furosemide 40 mg tablet 40 mg PO DAILY #30 tab 06/08/19 06/19/19 Rx omeprazole magnesium 20 mg 20 mg PO BID #30 tab 06/11/19 06/19/19 Rx tablet,delayed release Past Med/Surg History Medical History Anemia Anemia Anxiety Cardiac murmur Diabetes mellitus, type 2 Diverticular disease Duodenal ulcer GERD (gastroesophageal reflux disease) Gastric ulcer Hyperlipidemia Hypertension Nausea and vomiting after administration of anesthetic agent Osteoarthritis Psoriatic arthritis Restless leg syndrome S/P ORIF (open reduction internal fixation) fracture R shoulder, January 2018 Surgical History History of anesthesia reaction difficult to wake after bladder tack sx History of bilateral cataract extraction History of bladder surgery bladder tack History of colonoscopy History of esophagogastroduodenoscopy (EGD) History of hemiarthroplasty of right shoulder January 2018 post fracture History of repair of right rotator cuff History of revision of total shoulder arthroplasty Right shoulder, 12/29/18 History of tooth extraction all teeth Family History Grandmother (Paternal) Family history of diabetes mellitus Father COPD (chronic obstructive pulmonary disease) Mother Hypertension Family/Other Cancer Sister Ovarian cancer Social History Preferred Language: Vincentian Communication Ability: Effective Visual Impairment: Limited Hearing Ability: Normal [employer] Required: No Beliefs That Will Affect Care: None marital status: Current Living Situation: Spouse current occupational status: retired Other Information That Helps Us Care for You: No Feels Safe at Home: Yes Safety Concerns: Feels Safe At This Time Smoking Status: Former smoker Do You Dip or Chew Tobacco: No ; Second Hand Exposure: No ; Hx Alcohol Use: No Hx Substance Use: No Childhood Exposure to Second-Hand Smoke: Yes Other Diet Comment: regular Dental Care, Regularly: No Physical Activity Frequency: Does not Exercise Seatbelt Use: sometimes Review of Systems no sweats and no malaise no diplopia no ear trauma no change in sputum and no hemoptysis no chest pain with activity and no dyspnea at rest + nausea; no bloating, no hematemesis and no melena no urinary frequency no radicular pain no falls no polydipsia Physical Exam Constitutional: well nourished; no acute distress Eyes: PERRL, conjunctivae normal, anicteric sclerae Neck: trachea midline, no thyromegaly Respiratory: normal respiratory effort; no respiratory distress Cardiovascular: Rate/Rhythm: regular rate Heart Sounds: + murmur Gastrointestinal (Abdomen): Inspection/Auscultation: normal bowel sounds Mild distention with a positive fluid wave noted Skin: no jaundice Neurologic: awake; not confused and not obtunded Results & Data Vital Signs (Past 12 Hours) Vital Signs Temp Pulse Pulse Resp BP Pulse Ox 06/20/19 07:32 36.8 C 85 16 123/64 94 06/20/19 06:28 83 20 110/65 98 06/20/19 04:33 37.0 C 84 20 99/62 L 94 06/19/19 23:40 94 H 06/19/19 23:00 36.9 C 92 H 18 123/76 96 Laboratory Results Laboratory Results - last 24 hr 06/19/19 06/19/19 06/19/19 12:39 12:39 15:46 WBC 5.87 RBC 3.05 L Hgb 8.5 L Hct 26.4 L MCV 86.6 MCH 27.9 MCHC 32.2 RDW Std Deviation 63.7 H RDW Coeff of Karina 20.3 H Plt Count 75 L MPV 10.0 Immature Gran % (Auto) 0.5 Neut % (Auto) 65.2 Lymph % (Auto) 24.9 [place] % (Auto) 6.8 Eos % (Auto) 2.4 Baso % (Auto) 0.2 Immature Gran # (Auto) 0.03 H Neut # (Auto) 3.83 Lymph # (Auto) 1.46 [place] # (Auto) 0.40 Eos # (Auto) 0.14 Baso # (Auto) 0.01 Anisocytosis Present Peripher Smr Path Cons PT INR Fibrinogen Sodium 142 Potassium 4.1 Chloride 109 H Carbon Dioxide 21 Anion Gap 12.0 H BUN 68 H Creatinine 2.37 H Est Cr Clr Drug Dosing 21.3 Est GFR ( Amer) 24.5 Est GFR (Non-Af Amer) 21.1 BUN/Creatinine Ratio 28.5 H Glucose 60 L POC Glucose Osmolality 317 H Calcium 8.6 Magnesium Iron TIBC Transferrin Transferrin % Sat Ferritin Total Bilirubin 0.9 Direct Bilirubin 0.5 H AST 33 ALT 22 Alkaline Phosphatase 159 H Lactate Dehydrogenase Total Creatine Kinase 40 Total Protein 7.4 Albumin 1.7 L Globulin Albumin/Globulin Ratio Lipase 111 Vitamin B12 Folate Blood Type Antibody Screen Crossmatch 06/19/19 06/19/19 06/19/19 16:29 16:30 17:01 WBC RBC Hgb Hct MCV MCH MCHC RDW Std Deviation RDW Coeff of Karina Plt Count MPV Immature Gran % (Auto) Neut % (Auto) Lymph % (Auto) [place] % (Auto) Eos % (Auto) Baso % (Auto) Immature Gran # (Auto) Neut # (Auto) Lymph # (Auto) [place] # (Auto) Eos # (Auto) Baso # (Auto) Anisocytosis Peripher Smr Path Cons PT INR Fibrinogen Sodium Potassium Chloride Carbon Dioxide Anion Gap BUN Creatinine Est Cr Clr Drug Dosing Est GFR ( Amer) Est GFR (Non-Af Amer) BUN/Creatinine Ratio Glucose POC Glucose 52 L* 54 L* 100 H Osmolality Calcium Magnesium Iron TIBC Transferrin Transferrin % Sat Ferritin Total Bilirubin Direct Bilirubin AST ALT Alkaline Phosphatase Lactate Dehydrogenase Total Creatine Kinase Total Protein Albumin Globulin Albumin/Globulin Ratio Lipase Vitamin B12 Folate Blood Type Antibody Screen Crossmatch 06/19/19 06/20/19 06/20/19 20:39 05:36 05:36 WBC 2.93 L RBC 2.20 L Hgb 6.3 L* Hct 19.0 L* MCV 86.4 MCH 28.6 MCHC 33.2 RDW Std Deviation 63.4 H RDW Coeff of Karina 20.3 H Plt Count 42 L MPV 9.4 Immature Gran % (Auto) Neut % (Auto) Lymph % (Auto) [place] % (Auto) Eos % (Auto) Baso % (Auto) Immature Gran # (Auto) Neut # (Auto) Lymph # (Auto) [place] # (Auto) Eos # (Auto) Baso # (Auto) Anisocytosis Peripher Smr Path Cons PT INR Fibrinogen Sodium 145 Potassium 3.8 Chloride 112 H Carbon Dioxide 25 Anion Gap 8.0 BUN 59 H Creatinine 1.99 H D Est Cr Clr Drug Dosing 25.6 Est GFR ( Amer) 30.2 Est GFR (Non-Af Amer) 26.1 BUN/Creatinine Ratio 29.5 H Glucose 55 L POC Glucose 124 H Osmolality Calcium 7.8 L Magnesium 1.6 L Iron TIBC Transferrin Transferrin % Sat Ferritin Total Bilirubin 0.9 Direct Bilirubin 0.4 H AST 25 ALT 17 Alkaline Phosphatase 120 H Lactate Dehydrogenase Total Creatine Kinase Total Protein 5.9 L D Albumin 1.7 L Globulin 4.2 H Albumin/Globulin Ratio 0.4 L Lipase Vitamin B12 Folate Blood Type Antibody Screen Crossmatch 06/20/19 06/20/19 06/20/19 06:46 06:46 07:42 WBC RBC Hgb 6.5 L* Hct 19.5 L* MCV MCH MCHC RDW Std Deviation RDW Coeff of Karina Plt Count MPV Immature Gran % (Auto) Neut % (Auto) Lymph % (Auto) [place] % (Auto) Eos % (Auto) Baso % (Auto) Immature Gran # (Auto) Neut # (Auto) Lymph # (Auto) [place] # (Auto) Eos # (Auto) Baso # (Auto) Anisocytosis Peripher Smr Path Cons PT INR Fibrinogen Sodium Potassium Chloride Carbon Dioxide Anion Gap BUN Creatinine Est Cr Clr Drug Dosing Est GFR ( Amer) Est GFR (Non-Af Amer) BUN/Creatinine Ratio Glucose POC Glucose 60 L* Osmolality Calcium Magnesium Iron TIBC Transferrin Transferrin % Sat Ferritin Total Bilirubin Direct Bilirubin AST ALT Alkaline Phosphatase Lactate Dehydrogenase Total Creatine Kinase Total Protein Albumin Globulin Albumin/Globulin Ratio Lipase Vitamin B12 Folate Blood Type O Positive Antibody Screen NEGATIVE Crossmatch See Detail 06/20/19 06/20/19 06/20/19 07:43 08:06 08:16 WBC RBC Hgb Hct MCV MCH MCHC RDW Std Deviation RDW Coeff of Karina Plt Count MPV Immature Gran % (Auto) Neut % (Auto) Lymph % (Auto) [place] % (Auto) Eos % (Auto) Baso % (Auto) Immature Gran # (Auto) Neut # (Auto) Lymph # (Auto) [place] # (Auto) Eos # (Auto) Baso # (Auto) Anisocytosis Peripher Smr Path Cons PT INR Fibrinogen Sodium Potassium Chloride Carbon Dioxide Anion Gap BUN Creatinine Est Cr Clr Drug Dosing Est GFR ( Amer) Est GFR (Non-Af Amer) BUN/Creatinine Ratio Glucose POC Glucose 64 L* 90 Osmolality Calcium Magnesium Iron TIBC Transferrin Transferrin % Sat Ferritin Total Bilirubin Direct Bilirubin AST ALT Alkaline Phosphatase Lactate Dehydrogenase 196 Total Creatine Kinase Total Protein Albumin Globulin Albumin/Globulin Ratio Lipase Vitamin B12 Folate Blood Type Antibody Screen Crossmatch 06/20/19 06/20/19 06/20/19 08:16 08:16 08:16 WBC RBC Hgb Hct MCV MCH MCHC RDW Std Deviation RDW Coeff of Karina Plt Count MPV Immature Gran % (Auto) Neut % (Auto) Lymph % (Auto) [place] % (Auto) Eos % (Auto) Baso % (Auto) Immature Gran # (Auto) Neut # (Auto) Lymph # (Auto) [place] # (Auto) Eos # (Auto) Baso # (Auto) Anisocytosis Peripher Smr Path Cons Pending PT INR Fibrinogen 165 L Sodium Potassium Chloride Carbon Dioxide Anion Gap BUN Creatinine Est Cr Clr Drug Dosing Est GFR ( Amer) Est GFR (Non-Af Amer) BUN/Creatinine Ratio Glucose POC Glucose Osmolality Calcium Magnesium Iron 35 TIBC 124 L Transferrin 83 L Transferrin % Sat 30 Ferritin Total Bilirubin Direct Bilirubin AST ALT Alkaline Phosphatase Lactate Dehydrogenase Total Creatine Kinase Total Protein Albumin Globulin Albumin/Globulin Ratio Lipase Vitamin B12 Folate Blood Type Antibody Screen Crossmatch 06/20/19 06/20/19 06/20/19 08:16 08:16 08:16 WBC RBC Hgb Hct MCV MCH MCHC RDW Std Deviation RDW Coeff of Karina Plt Count MPV Immature Gran % (Auto) Neut % (Auto) Lymph % (Auto) [place] % (Auto) Eos % (Auto) Baso % (Auto) Immature Gran # (Auto) Neut # (Auto) Lymph # (Auto) [place] # (Auto) Eos # (Auto) Baso # (Auto) Anisocytosis Peripher Smr Path Cons PT 15.7 H INR 1.6 H Fibrinogen Sodium Potassium Chloride Carbon Dioxide Anion Gap BUN Creatinine Est Cr Clr Drug Dosing Est GFR ( Amer) Est GFR (Non-Af Amer) BUN/Creatinine Ratio Glucose POC Glucose Osmolality Calcium Magnesium Iron TIBC Transferrin Transferrin % Sat Ferritin 120.9 Total Bilirubin Direct Bilirubin AST ALT Alkaline Phosphatase Lactate Dehydrogenase Total Creatine Kinase Total Protein Albumin Globulin Albumin/Globulin Ratio Lipase Vitamin B12 1223 H Folate > 24.00 Blood Type Antibody Screen Crossmatch Code Status & VTE Plan VTE Prophylaxis Plan VTE Prophylaxis will be ordered: Yes
--- NOTE | 2019-06-20 11:17 | Procedure Note ---
Procedure Note Date of Service June 20, 2019 Note I performed a diagnostic paracentesis on Ms. Sherman for concern for SBP. Patient was consented and was able to reiterate the possible complications of bleeding, peritoneal leak, bowel injury, infection, or even . Time out was performed prior to procedure with patient's name and date of confirmed. Area of paracentesis was reviewed with ultrasound with ~5cm of fluid seen. Site was marked at that time under direct visualization with U/S. Site was then prepped with chlorhexidine. I used sterile gloves and mask. ~1 mL of lido/epi was injected in the skin. This was then followed with lidocaine in planned path of the needle. Sterile 18g needle was then used to puncture the peritoneal space with return of light, cloudy, yellow peritoneal fluid. 40cc of fluid was withdrawn, and the needle was removed. Scant bleeding at the puncture site quickly stopped. Sterile gauze was applied. The patient tolerated the procedure well and no complications were apparent at the conclusion of the procedure. Fluid was sent to the lab for analysis. Coding CPT Codes Abdomen - Abdominal: Abdominal Paracentesis (diagnostic or therapeutic); Without imaging ([id number])
[2019-06-20 11:44] LABS: Albumin Peritoneal Fluid < 0.6 g/dl; Glucose Peritoneal Fluid 87 mg/dl
[2019-06-20] MEDS: LACTULOSE SYRUP 30 GM/45 ML UDP PO SCH (11:49)
[2019-06-20 11:50] LABS: LDH Peritoneal Fluid 49 U/L; Total Protein Peritoneal Fluid 1.3 g/dl
[2019-06-20 11:57] LABS: Appearance Peritoneal Fluid CLOUDY; Basophils, Fluid 0 %; Color Peritoneal Fluid AMBER; Eosinophils, Fluid 0 %; Lymphocytes, Fluid 41 %; Mono,Macrophage,Mesothelial 57 %; Neutrophils, Fluid 2 %; RBC Peritoneal Fluid (A) 6000 /uL; WBC Peritoneal Fluid (A) 140 /ul (0-300)
[2019-06-20] MEDS ORDERED: cefTRIAXone SODIUM 1,000 MG in DEXTROSE 5% 50 ML IV SCH (15:00)
--- NOTE | 2019-06-20 16:10 | Hospitalist Progress Note ---
Date of Service June 20, 2019 Assessment & Plan (1) Iron deficiency anemia: On 06/20, the patient went from hgb of 8.5 (baseline) to 6.3. Broad labs ordered at that time indicating iron deficiency. Hemolysis labs showed low fibrinogen, normal LDH, increasing INR, and lower platelets. I discussed with lab, and they report no schistocytes on the peripheral smear, though no entry in [employer] - Seen by GI on 06/20 with thought for possible GI bleed, though no indication at this time. Giving ceftriaxone for SBP ppx. - Continue PPI BID - 1 unit PRBCs ordered on 06/20. - Closely follow hgb & platelets (2) Liver cirrhosis: Uncertain etiology, pt denies hx of alcohol use. Has been getting work-up through [facility]. She states it started after prolonged use of Cosentyx for her psoriatic arthritis, she is no longer on this medication. - See above - Will also give a dose of lactulose as she reports no BM for at least a day. (3) ARF (acute renal failure): Baseline Cr is ~1.0. Cr was up to 2.45 on admission. Likely due to dehydration. - Hold ARB, Lasix, and metolazone. - Consulted nephrology - Agree with IV fluids. (4) CHF (congestive heart failure): Hypovolemic on exam on presentation. - Continue beta-maxwell, ASA, statin - Closely monitor volume status (5) DM type 2 (diabetes mellitus, type 2): A1c was only 4.5% last check in 04/2019. - Hold metformin - Sliding-scale insulin per protocol (6) GERD (gastroesophageal reflux disease): Continue with PPI (7) Dyslipidemia: Continue statins (8) Hypertension: BP stable at present. - Continue home meds. (9) Dysphagia: Barium swallow done on 06/19 with some esophogeal spasm noted. - Consulted speech therapy for swallow evaluation - Recs include Aspiration precautions for now. Subjective She is just tired today. She does not have any focal complaints. Reports no fevers/chills, chest pain, shortness of breath, abdominal pain, nausea, or vom iting. Physical Exam Constitutional: cooperative and + lethargic Eyes: EOM intact bilaterally; no conjunctival abnormality ENMT: external ear and nose normal, oropharynx normal Neck: trachea midline, no thyromegaly normal visual inspection Respiratory: normal respiratory effort, lungs clear to auscultation no respiratory distress Cardiovascular: RRR, no murmur, no edema Gastrointestinal (Abdomen): Inspection/Auscultation: abdomen normal to inspection; abdomen not distended Musculoskeletal: no cyanosis or clubbing, extremities motor strength 5/5 Skin: no rashes, warm and dry Neurologic: moves all extremities and awake Psychiatric: Orientation: oriented to person and cooperative; + not alert Results & Data Vital Signs (Past 12 Hours) Vital Signs Temp Pulse Pulse Resp BP BP Pulse Ox 06/20/19 15:26 36.4 C L 80 18 124/74 95 06/20/19 14:56 36.4 C L 80 18 123/73 95 06/20/19 14:40 36.3 C L 81 18 117/66 97 06/20/19 14:24 36.4 C L 83 18 104/66 06/20/19 11:36 37.0 C 82 16 112/65 93 06/20/19 07:32 36.8 C 85 16 123/64 94 06/20/19 06:28 83 20 110/65 98 06/20/19 04:33 37.0 C 84 20 99/62 L 94 PG Care Time/CCT Total # of Minutes Spent Total Time Spent with Patient: Total time spent is greater than 50% in coordination of care (as documented) at patient's floor/unit and/or counseling patient: (1) CHF (congestive heart failure) Heart failure chronicity: unspecified Heart failure type: unspecified Qualified Code(s): I50.9 - Heart failure, unspecified
[2019-06-20 18:51] LABS: Hematocrit (blood only) 27.5 % (37-47); Hemoglobin 8.9 g/dL (12.0-16.0); Mean Corpuscular Hemoglobin 27.9 pg (25-34); Mean Corpuscular Hgb Conc 32.4 g/dL (32-36); Mean Corpuscular Volume 86.2 fL (80-100); Nucleated RBC # (auto) 0.02 K/uL (0-0); Nucleated RBC % (auto) 0.7 %; RDW Coefficient of Variation 19.1 % (11.5-14.5); RDW Standard Deviation 58.6 fL (36.4-46.3); Red Blood Count 3.19 M/uL (4.2-5.4); White Blood Count 3.07 K/uL (4.8-10.8)
[2019-06-20 19:21] LABS: Platelet Count 46 K/uL (130-400)
[2019-06-20] MEDS: ROPINIROLE HCL 1 MG TABLET PO SCH (20:48)
[2019-06-20] MEDS: VENLAFAXINE HCL XR 150 MG CAPXR PO SCH (20:49)
[2019-06-20] MEDS: SIMVASTATIN 20 MG TAB PO SCH (20:49)
[2019-06-21] MEDS: SODIUM CHLORIDE 0.9% 1000ML 1,000 ML IV SCH ×2 (00:49→13:49)
[2019-06-21 06:08] LABS: Hematocrit (blood only) 22.4 % (37-47); Hemoglobin 7.5 g/dL (12.0-16.0); Mean Corpuscular Hgb Conc 33.5 g/dL (32-36); Mean Corpuscular Volume 86.5 fL (80-100); RDW Coefficient of Variation 19.6 % (11.5-14.5); RDW Standard Deviation 60.9 fL (36.4-46.3); Red Blood Count 2.59 M/uL (4.2-5.4); White Blood Count 2.79 K/uL (4.8-10.8)
[2019-06-21 06:20] LABS: Mean Platelet Volume 8.4 fL (7.4-10.4); Platelet Count 36 K/uL (130-400)
[2019-06-21 06:40] LABS: Fibrinogen 142 mg/dl (184-400); INR 1.7 (0.9-1.1); Prothrombin Time 16.5 Seconds (9.0-12.0)
[2019-06-21 06:42] LABS: BUN Creatinine Ratio 26.1 (10-20); Calcium 8.1 mg/dl (8.5-10.1); Creatinine Clr Calc Pharmacy 27.4 ml/min; Est GFR (African American) 32.8; Est GFR (Non-African American) 28.3; Potassium 3.3 mmol/L (3.5-5.1)
[2019-06-21 06:43] LABS: Phosphorus 3.4 mg/dl (2.5-4.9)
[2019-06-21 07:43] LABS: Appearance Urine Clear (Clear); Bacteria Urine Automated Negative (Negative); Bilirubin Urine Negative (Negative); Blood Urine 3+ (Negative); Color Urine Yellow; Epithelial Cell Urine Auto >30 /lpf (0-5); Glucose Urine UA Negative (Negative); Ketones Urine Negative (Negative); Leukocyte Esterase Urine Negative (Negative); Nitrite Urine Negative (Negative); Protein Urine Negative (Negative); Specific Gravity Urine 1.014 (1.000-1.030); Urobilinogen Urine Negative (Negative); pH Urine 5.5 (4.5-7.5)
[2019-06-21] MEDS: LACTULOSE SYRUP 30 GM/45 ML UDP PO SCH (08:29)
[2019-06-21] MEDS: CARVEDILOL 3.125 MG TAB PO SCH (08:30)
[2019-06-21] MEDS: FOLIC ACID 1 MG TAB PO SCH (08:30)
[2019-06-21] MEDS: RIFAXIMIN 550 MG TABLET PO SCH (08:30)
[2019-06-21] MEDS: PANTOprazole 40 MG TAB PO SCH (08:30)
[2019-06-21] MEDS: ASPIRIN 81 MG ECTAB PO SCH (08:30)
[2019-06-21] MEDS: INSULIN ASPART 100 UNITS/ML 3 ML PEN SC SCH ×2 (08:36→12:07)
[2019-06-21 08:53] LABS: Albumin Level 2.1 gm/dl (3.4-5.0); Bilirubin Direct 0.5 mg/dl (0-0.2); Total Protein 6.2 gm/dl (6.4-8.2)
[2019-06-21] MEDS ORDERED: POTASSIUM CHLORIDE PWD 20 MEQ PACK PO SCH (09:00)
--- NOTE | 2019-06-21 10:06 | Gastroenterology Progress Note ---
Date of Service June 21, 2019 Assessment & Plan (1) Cirrhosis: Patient with a history of cirrhosis thought to be related to fatty infiltration of the liver with complications that include small volume ascites, present meld score is 19. Of note her INR is slightly increasing. I would sug gest giving the patient oral vitamin K 5 mg/day. In addition perhaps the patient is best off with a referral to a tertiary center with subspecialty expertise and hep otology and transplantation. Her renal failure has proved significantly with IV hydration and perhaps the patient has prerenal azotemia. Patient does have anemia but no Melena, she does have a history of grade 1 esophageal varices and perhaps an upper endoscopy would be beneficial in her case. Recommendations Vitamin K 5 mg orally daily Stop metformin Continue with daily labs to include CMP, CBC and INR Consider ordering a CPK due to muscle weakness Upper endoscopy with Dr. Llamas on Saturday Consider referral to a tertiary center Coverage with Dr. Llamas's group to resume on Saturday. Pending blood count he may consider repeat upper endoscopy Subjective The patient looks improved this morning. She notes that her weakness is starting to improve. The patient's family was at bedside and they have many concerns about her overall physical condition as she has been declining significantly at home. She has diffuse weakness in her legs and arms and buttocks. She has difficulty with moving and does do physical therapy at home. Review of Systems Constitutional: no sweats and no weight loss Eyes: no diplopia Ear, Nose, Mouth, Throat: no foul smell Respiratory: no change in sputum and no hemoptysis Cardiovascular: no chest pain with activity Gastrointestinal: no abdominal pain, no bloating, no nausea, no coffee ground emesis, no dysphagia and no blood in stools Neurologic: no paralysis and no tremor(s) Results & Data Vital Signs (Past 12 Hours) Vital Signs Temp Pulse Pulse Resp BP BP Pulse Ox 06/21/19 07:31 36.6 C 81 18 133/77 96 06/21/19 07:08 82 06/21/19 02:59 36.9 C 81 18 118/65 91 06/21/19 01:28 EST 89 Laboratory Results Laboratory Results - last 24 hr 06/20/19 06/20/19 06/20/19 06:46 11:45 16:48 WBC RBC Hgb Hct MCV MCH MCHC RDW Std Deviation RDW Coeff of Karina Plt Count MPV Absolute Nucleated RBC Nucleated RBC % (auto) PT INR Fibrinogen Sodium Potassium Chloride Carbon Dioxide Anion Gap BUN Creatinine Est Cr Clr Drug Dosing Est GFR ( Amer) Est GFR (Non-Af Amer) BUN/Creatinine Ratio Glucose POC Glucose 98 90 Calcium Phosphorus Magnesium Total Bilirubin Direct Bilirubin AST ALT Alkaline Phosphatase Ammonia Total Protein Albumin Urine Color Urine Appearance Urine pH Ur Specific [place] Urine Protein Urine Glucose (UA) Urine Ketones Urine Blood Urine Nitrite Urine Bilirubin Urine Urobilinogen Ur Leukocyte Esterase Urine WBC (Auto) Urine RBC (Auto) U Hyaline Cast (Auto) U Epithel Cells (Auto) Urine Bacteria (Auto) Urine Osmolality Fluid Neutrophils % Fluid Lymphocytes % Fluid Eosinophils % Fluid Basophils % Fluid Meso/Macro/Ashley % Fluid Slide Review Peritoneal Color Peritoneal Appearance Peritoneal WBC Peritoneal RBC Peritoneal Tot Protein Peritoneal Albumin Peritoneal LDH Peritoneal Glucose Blood Type O Positive Antibody Screen NEGATIVE Crossmatch See Detail 06/20/19 06/20/19 06/20/19 18:37 18:37 20:55 WBC 3.07 L RBC 3.19 L Hgb 8.9 L Hct 27.5 L MCV 86.2 MCH 27.9 MCHC 32.4 RDW Std Deviation 58.6 H RDW Coeff of Karina 19.1 H Plt Count 46 L MPV 10.0 Absolute Nucleated RBC 0.02 H Nucleated RBC % (auto) 0.7 PT INR Fibrinogen Sodium Potassium Chloride Carbon Dioxide Anion Gap BUN Creatinine Est Cr Clr Drug Dosing Est GFR ( Amer) Est GFR (Non-Af Amer) BUN/Creatinine Ratio Glucose POC Glucose 99 Calcium Phosphorus Magnesium Total Bilirubin Direct Bilirubin AST ALT Alkaline Phosphatase Ammonia 102.0 H Total Protein Albumin Urine Color Urine Appearance Urine pH Ur Specific [place] Urine Protein Urine Glucose (UA) Urine Ketones Urine Blood Urine Nitrite Urine Bilirubin Urine Urobilinogen Ur Leukocyte Esterase Urine WBC (Auto) Urine RBC (Auto) U Hyaline Cast (Auto) U Epithel Cells (Auto) Urine Bacteria (Auto) Urine Osmolality Fluid Neutrophils % Fluid Lymphocytes % Fluid Eosinophils % Fluid Basophils % Fluid Meso/Macro/Ashley % Fluid Slide Review Peritoneal Color Peritoneal Appearance Peritoneal WBC Peritoneal RBC Peritoneal Tot Protein Peritoneal Albumin Peritoneal LDH Peritoneal Glucose Blood Type Antibody Screen Crossmatch 06/20/19 06/21/19 06/21/19 Unknown 01:56 EST 05:55 WBC 2.79 L RBC 2.59 L Hgb 7.5 L Hct 22.4 L MCV 86.5 MCH 29.0 MCHC 33.5 RDW Std Deviation 60.9 H RDW Coeff of Karina 19.6 H Plt Count 36 L MPV 8.4 Absolute Nucleated RBC Nucleated RBC % (auto) PT INR Fibrinogen Sodium Potassium Chloride Carbon Dioxide Anion Gap BUN Creatinine Est Cr Clr Drug Dosing Est GFR ( Amer) Est GFR (Non-Af Amer) BUN/Creatinine Ratio Glucose POC Glucose 87 Calcium Phosphorus Magnesium Total Bilirubin Direct Bilirubin AST ALT Alkaline Phosphatase Ammonia Total Protein Albumin Urine Color Urine Appearance Urine pH Ur Specific [place] Urine Protein Urine Glucose (UA) Urine Ketones Urine Blood Urine Nitrite Urine Bilirubin Urine Urobilinogen Ur Leukocyte Esterase Urine WBC (Auto) Urine RBC (Auto) U Hyaline Cast (Auto) U Epithel Cells (Auto) Urine Bacteria (Auto) Urine Osmolality Fluid Neutrophils % 2 Fluid Lymphocytes % 41 Fluid Eosinophils % 0 Fluid Basophils % 0 Fluid Meso/Macro/Ashley % 57 Fluid Slide Review Pending Peritoneal Color DIONTE Peritoneal Appearance CLOUDY Peritoneal WBC 140 Peritoneal RBC 6000 Peritoneal Tot Protein 1.3 Peritoneal Albumin < 0.6 Peritoneal LDH 49 Peritoneal Glucose 87 Blood Type Antibody Screen Crossmatch 06/21/19 06/21/19 06/21/19 05:55 05:55 05:55 WBC RBC Hgb Hct MCV MCH MCHC RDW Std Deviation RDW Coeff of Karina Plt Count MPV Absolute Nucleated RBC Nucleated RBC % (auto) PT 16.5 H INR 1.7 H Fibrinogen 142 L Sodium 145 Potassium 3.3 L Chloride 114 H Carbon Dioxide 25 Anion Gap 6.0 BUN 48 H Creatinine 1.86 H Est Cr Clr Drug Dosing 27.4 Est GFR ( Amer) 32.8 Est GFR (Non-Af Amer) 28.3 BUN/Creatinine Ratio 26.1 H Glucose 72 POC Glucose Calcium 8.1 L Phosphorus 3.4 Magnesium 2.0 Total Bilirubin 1.0 Direct Bilirubin 0.5 H AST 27 ALT 16 Alkaline Phosphatase 117 Ammonia Total Protein 6.2 L Albumin 2.1 L Urine Color Urine Appearance Urine pH Ur Specific [place] Urine Protein Urine Glucose (UA) Urine Ketones Urine Blood Urine Nitrite Urine Bilirubin Urine Urobilinogen Ur Leukocyte Esterase Urine WBC (Auto) Urine RBC (Auto) U Hyaline Cast (Auto) U Epithel Cells (Auto) Urine Bacteria (Auto) Urine Osmolality Fluid Neutrophils % Fluid Lymphocytes % Fluid Eosinophils % Fluid Basophils % Fluid Meso/Macro/Ashley % Fluid Slide Review Peritoneal Color Peritoneal Appearance Peritoneal WBC Peritoneal RBC Peritoneal Tot Protein Peritoneal Albumin Peritoneal LDH Peritoneal Glucose Blood Type Antibody Screen Crossmatch 06/21/19 06/21/19 06/21/19 06:23 06:55 06:55 WBC RBC Hgb Hct MCV MCH MCHC RDW Std Deviation RDW Coeff of Karina Plt Count MPV Absolute Nucleated RBC Nucleated RBC % (auto) PT INR Fibrinogen Sodium Potassium Chloride Carbon Dioxide Anion Gap BUN Creatinine Est Cr Clr Drug Dosing Est GFR ( Amer) Est GFR (Non-Af Amer) BUN/Creatinine Ratio Glucose POC Glucose 73 Calcium Phosphorus Magnesium Total Bilirubin Direct Bilirubin AST ALT Alkaline Phosphatase Ammonia Total Protein Albumin Urine Color Yellow Urine Appearance Clear Urine pH 5.5 Ur Specific [place] 1.014 Urine Protein Negative Urine Glucose (UA) Negative Urine Ketones Negative Urine Blood 3+ H Urine Nitrite Negative Urine Bilirubin Negative Urine Urobilinogen Negative Ur Leukocyte Esterase Negative Urine WBC (Auto) 1-5 Urine RBC (Auto) 10-30 H U Hyaline Cast (Auto) 1-5 U Epithel Cells (Auto) >30 H Urine Bacteria (Auto) Negative Urine Osmolality 359 L Fluid Neutrophils % Fluid Lymphocytes % Fluid Eosinophils % Fluid Basophils % Fluid Meso/Macro/Ashley % Fluid Slide Review Peritoneal Color Peritoneal Appearance Peritoneal WBC Peritoneal RBC Peritoneal Tot Protein Peritoneal Albumin Peritoneal LDH Peritoneal Glucose Blood Type Antibody Screen Crossmatch 06/21/19 07:48 WBC RBC Hgb Hct MCV MCH MCHC RDW Std Deviation RDW Coeff of Karina Plt Count MPV Absolute Nucleated RBC Nucleated RBC % (auto) PT INR Fibrinogen Sodium Potassium Chloride Carbon Dioxide Anion Gap BUN Creatinine Est Cr Clr Drug Dosing Est GFR ( Amer) Est GFR (Non-Af Amer) BUN/Creatinine Ratio Glucose POC Glucose 108 H Calcium Phosphorus Magnesium Total Bilirubin Direct Bilirubin AST ALT Alkaline Phosphatase Ammonia Total Protein Albumin Urine Color Urine Appearance Urine pH Ur Specific [place] Urine Protein Urine Glucose (UA) Urine Ketones Urine Blood Urine Nitrite Urine Bilirubin Urine Urobilinogen Ur Leukocyte Esterase Urine WBC (Auto) Urine RBC (Auto) U Hyaline Cast (Auto) U Epithel Cells (Auto) Urine Bacteria (Auto) Urine Osmolality Fluid Neutrophils % Fluid Lymphocytes % Fluid Eosinophils % Fluid Basophils % Fluid Meso/Macro/Ashley % Fluid Slide Review Peritoneal Color Peritoneal Appearance Peritoneal WBC Peritoneal RBC Peritoneal Tot Protein Peritoneal Albumin Peritoneal LDH Peritoneal Glucose Blood Type Antibody Screen Crossmatch
--- NOTE | 2019-06-21 11:23 | Nephrology Progress Note ---
Date of Service June 21, 2019 Assessment & Plan (1) Acute kidney injury: -- HENRIQUE due to dehydration in the setting of ARB therapy. Creatinine trending down w/ hydration (Cr 2.4 --> 1.86) -- Continue to hold Losartan -- Continue gentle hydration w/ 0.9NS -- Will provide 25 g IV SPA x 2 today -- Recheck PRP in am -- Renal US negative for obstruction. Urine studies pending (2) Chronic kidney disease, stage III (moderate): -- Baseline Cr 1.0 (3) Cirrhosis: -- Non alcoholic. [facility] (4) Diabetes: -- Recommend avoiding use of Metformin in the setting of chronic liver disease as this may predispose to ABELARDO -- Serum lactate level was normal (5) Anemia: -- Hgb trending down. Recommend rechecking Hgb and transfusing to maintain Hgb > 8.0 -- GI plans EGD Saturday Subjective Mrs. Sherman was seen & examined in her hospital room this morning. Her was present at bedside. Mrs. Sherman denied overt blood loss, N/V or abdominal pain. She has tolerated IV hydration without dyspnea Review of Systems Constitutional: no fever and no chills Eyes: no worsening vision and no problem reported Ear, Nose, Mouth, Throat: no problem reported Respiratory: no cough and no dyspnea Cardiovascular: no chest pain, no palpitations and no edema Gastrointestinal: + bloating, + nausea and + vomiting; no abdominal pain and no diarrhea/loose stools Genitourinary: no dysuria and no hematuria Musculoskeletal: no back pain Integumentary: no rash Neurologic: no confusion Physical Exam Constitutional: + frail appearing; not in distress Eyes: PERRL, conjunctivae normal, anicteric sclerae ENMT: Mouth: + dry oral mucous membranes and + edentulous Neck: trachea midline, no thyromegaly Respiratory: normal respiratory effort, lungs clear to auscultation Cardiovascular: RRR, no murmur, no edema Gastrointestinal (Abdomen): Inspection/Auscultation: + abdomen distended Percussion/Palpation: abdomen nontender Musculoskeletal: Extremities: no cyanosis Skin: no rashes, warm and dry Neurologic: awake; not confused Results & Data Vital Signs (Past 12 Hours) Vital Signs Temp Pulse Pulse Resp BP BP Pulse Ox 06/21/19 07:31 36.6 C 81 18 133/77 96 06/21/19 07:08 82 06/21/19 02:59 36.9 C 81 18 118/65 91 06/21/19 01:28 EST 89 Laboratory Results Laboratory Tests 06/21/19 06/21/19 05:55 05:55 WBC 2.79 L Hgb 7.5 L Hct 22.4 L Plt Count 36 L Sodium 145 Potassium 3.3 L Chloride 114 H Carbon Dioxide 25 BUN 48 H Creatinine 1.86 H PG Care Time/CCT Total # of Minutes Spent Total Time Spent with Patient: Total time spent is greater than 50% in coordination of care (as documented) at patient's floor/unit and/or counseling patient:
[2019-06-21] MEDS: ALBUMIN 25% 50 ML IV SCH ×3 (11:40→13:49)
--- NOTE | 2019-06-21 13:23 | Discharge Summary ---
Date of Service June 21, 2019 Admission HPI Per Admitting Provider 64-year-old female with a history of cirrhosis thought to be related to fatty infiltration of the liver who presented to the emergency room after she was found to have worsening renal failure. The patient denies having black sticky stool, hematochezia, hematemesis or other sites of bleeding. She has had several endoscopic procedures over the past few years to include a recent upper endoscopy in September which did show a low-grade varices. She has a report of peptic ulcer disease as well. The patient was recently seen by her regular GI provider for nausea and vomiting, a right upper quadrant ultrasound did show evidence of cholelithiasis without evidence of obstruction. She also has small volume ascites noted on the same study. Today the patient notes that other than weakness she is in her usual state of health. Principal Diagnosis Acute kidney injury and acute hepatic failure Discharge Exam Constitutional cooperative and + lethargic Eyes EOM intact bilaterally; no conjunctival abnormality ENMT external ear and nose normal, oropharynx normal Neck trachea midline, no thyromegaly normal visual inspection Respiratory normal respiratory effort, lungs clear to auscultation no respiratory distress Cardiovascular RRR, no murmur, no edema Gastrointestinal (Abdomen) Inspection/Auscultation: abdomen normal to inspection; abdomen not distended Musculoskeletal no cyanosis or clubbing, extremities motor strength 5/5 Skin no rashes, warm and dry Neurologic moves all extremities and awake Psychiatric Orientation: oriented to person and cooperative; + not alert Discharge Data Allergies Allergy/AdvReac Type Severity Reaction Status Date / Time Sulfa (Sulfonamide Allergy Intermediate Rash Verified 06/20/19 14:19 Antibiotics) sulfamethoxazole Allergy Intermediate RASH Verified 06/20/19 14:19 trimethoprim Allergy Intermediate RASH Verified 06/20/19 14:19 Bactrim Allergy Unknown RASH Verified 08/17/14 08:01 amlodipine AdvReac Intermediate confusion Verified 06/19/19 12:56 adhesive tape AdvReac Mild ITCHING Verified 06/20/19 14:19 Consultations 06/19/19 13:35 ED Decision to Admit Stat 06/19/19 15:02 Consult Gastroenterology Routine Consult Nephrology Routine 06/21/19 12:08 Burn CD for patient Stat Ordered Studies 06/19/19 17:00 US renal/blad retro comp Routine 06/20/19 07:45 US abdomen limited Urgent Hospital Course (1) Anemia: On 06/20, the patient went from hgb of 8.5 (baseline) to 6.3. Broad labs ordered at that time indicating iron deficiency. Hemolysis labs showed low fib rinogen (~150), normal LDH, increasing INR, and lower platelets. I discussed with lab, and they report no schistocytes on the peripheral smear, though no entry in Tempolib. - Seen by GI on 06/20 with thought for possible GI bleed, though no indication at this time. Started ceftriaxone 1g IV daily for SBP ppx. on 06/20. - Continue PPI BID - 1 unit PRBCs ordered on 06/20 -> Hgb bumped to 8.9 after transfusion, but back down to 7.5 on 06/21. - Platelet baseline is ~75, but have trended down to 35. - Certainly concern for MAHA; however, no fever, renal function improving, and no neurologic symptoms. No schistos seen on smear. Unclear cause of her lab decompensation, though clinically, she appears well. Acute portal vein thrombosis is a very likely possibility. If she was not being transferred immediately, I would pursue portal Dopplers. Can be done in there. - Also consider better look at her gallbladder. Family reports some concern for cholecystitis; however, abdominal ultrasound on 06/12 showed only "gallbladder wall thickening is nonspecific and likely related to cirrhosis and ascites. A sonographic Quinones's sign is reportedly absent." She has 0/5 Rajan's pentad, so I feel it is unlikely at this time. (2) Liver cirrhosis: Uncertain etiology, pt denies hx of alcohol use. Presumed MAE right now. Has been getting work-up through [facility]. She states it started after prolonged use of Cosentyx for her psoriatic arthritis, she is no longer on this medication. - Started lactulose on 06/20 for NH3 of 100 and clinical evidence of hepatic encepatholpathy. 2 large BMs on 06/20 with clearing mental status. Would continue BID or TID dosing to continue to improve mental status. - I performed a paracentesis on 06/20 for concern for SBP. Blood-tinged ascites fluid. RBCs were 6000, WBCs 140 with 2% neutrophils. SAAG was >6, pointing toward her known cirrhosis as the cause. - Has Grade 1 esophageal varices and family reports prior stomach ulcers. - As above, started on ceftriaxone for SBP ppx given the smaller concern for GI bleed. (3) ARF (acute renal failure): Baseline Cr is ~1.0. Cr was up to 2.45 on admission. Likely due to dehydration. - Hold ARB, Lasix, and metolazone. - Consulted nephrology - Agree with IV fluids. - Cr improved to 1.85 by 06/21. (4) CHF (congestive heart failure): Hypovolemic on exam on presentation. EF in 04/2019 was 55-60%. No major valvular issues. - Continue beta-maxwell, ASA, statin - Held diuretics - Is on Lasix and metolazone as outpatient. - Closely monitor volume status (5) DM type 2 (diabetes mellitus, type 2): A1c was only 4.5% last check in 04/2019. - Held metformin - Sliding-scale insulin per protocol (6) GERD (gastroesophageal reflux disease): Continue with PPI (7) Dyslipidemia: Continue statins (8) Hypertension: BP stable at present. - Continue home meds. (9) Dysphagia: Barium swallow done on 06/19 with some esophogeal spasm noted. - Consulted speech therapy for swallow evaluation - Recs include aspiration precautions for now. - Per family, she has had increasing regurgitation and vomiting with bigger meals for several months without a known cause. Total Time Total Time Spent Total Time Spent (In Minutes): 45 Discharge Plan Discharge Items Patient Disposition: Transfer Acute Care Hospital Reason For Visit: RENAL FAILURE, WEAKNESS Discharge Diagnosis: Acute kidney injury, acute liver failure, thrombocytopenia Activity: Resume your previous activity Non-emergency contact: Primary Care Provider and Desulfurizer Hand Call non-emergency contact if: you have any medication questions Follow-up/Referrals: Rocío Alonso DO [Primary Care Provider] - Diet: Regular Addtl Attending Provider Instructions: Admitted for general fatigue and weakness. Family reports episodes of lethargy and confusion at home, likely hepatic encephalopathy. Cr noted to be 2.45 with baseline of ~1.25, improved down to 1.86 by 06/21. Baseline INR is 1.2, up to 1.7 on 06/21. Platelet baseline is 75, now down to 36. Hgb baseline is ~8.5, was 6.5 on admission. Given 1 unit of PRBCs on 06/20, bumped to 8.9, now down to 7.5. No indication of GI bleed without any hematochezia, melena, or hematemesis. Hemolysis labs showed fibrinogen of 142, but LDH was normal, no schistocytes. No haptoglobin in our hospital. Peritoneal fluid was bloody (RBCs 6000), but only had 140 WBCs and only 2% neutrophils. No other focal signs of infection. Unclear cause for her decompensation at this time. She Pending Studies at Discharge: No Stand-Alone Forms: My [facility] Skilled Items Patient informed of condition?: Yes DNR: No Discharge Level of Care: Other Communicable Disease: No Discharge Prognosis: Deteriorating Lines: Peripheral IV Urinary Catheter: No Medications and DC Order Prescriptions: New lactulose 20 gram/30 mL Solution 30 ml PO DAILY Qty: 30 RF: 0 Continued aspirin 81 mg tablet,delayed release (DR/EC) 81 mg PO QAM Qty: 30 RF: 11 Glucagon Emergency Kit (human) 1 mg recon soln 1 mg subcut UD PRN (Reason: Hypoglycemia) Qty: 1 RF: 0 folic acid 1 mg tablet 1 mg PO BID Qty: 60 RF: 0 adhesive bandage bandage .ROUTE .MEDSUPPLY Qty: 20 RF: 5 ferrous sulfate 325 mg (65 mg iron) tablet 325 mg PO QAM RF: 0 carvedilol 3.125 mg tablet 3.125 mg PO BID Qty: 60 RF: 0 fluticasone propionate 50 mcg/actuation spray,suspension 2 sprays INTNAS DAILY Qty: 16 RF: 2 ropinirole 2 mg tablet 2 mg PO HS Qty: 30 RF: 5 Xifaxan 550 mg tablet 550 mg PO BID Qty: 60 RF: 2 venlafaxine 150 mg tablet extended release 24hr 150 mg PO QPM Qty: 30 RF: 5 Prilosec OTC 20 mg tablet,delayed release (DR/EC) 20 mg PO BID Qty: 30 RF: 2 simvastatin 20 mg tablet 20 mg PO HS RF: 0 nystatin 100,000 unit/gram powder 1 appln TOP BID PRN (Reason: Skin Irritation) RF: 0 Discontinued potassium chloride 10 mEq capsule, extended release 10 meq PO DAILY Qty: 30 RF: 1 furosemide 40 mg tablet 40 mg PO DAILY Qty: 30 RF: 5 metformin 1,000 mg tablet 500 mg PO BID Qty: 60 RF: 0 metolazone 2.5 mg tablet 2.5 mg PO Q12H Qty: 15 RF: 0 Discharge Orders: Discharge Order (Routine); Ordered 06/21/19 Ordered By: Fernando Williamson Admission Data Admit Date/Time: 06/20/19 07:48 Attending Provider: Fernando Williamson Admit Provider: Steve Talavera Primary Care Provider: Rocío Alonso Other Providers: Hussein Llamas ; Phil Galeano ; Fernando Williamson Other Interventions: Discharge Summary Assessment (RN) Last Done: 06/21/19 12:48
== END 2019-06-21 14:37 | disposition short-term general hospital (02) | DRG 682 ==
LOC: ED 11:11 → 2N 11:11 → SUATTDRO 13:52 → 2N 14:57

== ENCOUNTER 2019-08-02 21:41 | Inpatient (IN) ==
[2019-08-02] MEDS: SODIUM CHLORIDE 0.9% 1000ML 1,000 ML IV SCH (22:22)
[2019-08-02 23:10] LABS: Hematocrit (blood only) 21.3 % (37-47); Hemoglobin 6.9 g/dL (12.0-16.0); Mean Corpuscular Hemoglobin 29.6 pg (25-34); Mean Corpuscular Hgb Conc 32.4 g/dL (32-36); Mean Corpuscular Volume 91.4 fL (80-100); Mean Platelet Volume 9.2 fL (7.4-10.4); Platelet Count 87 K/uL (130-400); RDW Coefficient of Variation 18.3 % (11.5-14.5); RDW Standard Deviation 60.8 fL (36.4-46.3); Red Blood Count 2.33 M/uL (4.2-5.4); White Blood Count 3.71 K/uL (4.8-10.8)
[2019-08-02 23:12] LABS: INR 1.3 (0.9-1.1); Partial Thromboplastin Ratio 1.2; Partial Thromboplastin Time 32.7 Seconds (21.0-31.0)
[2019-08-02 23:18] LABS: Alanine Aminotransferase 21 U/L (12-78); Aspartate Aminotransferase 25 U/L (15-37); BUN Creatinine Ratio 22.6 (10-20); Blood Urea Nitrogen 33 mg/dl (7-18); Carbon Dioxide 21 mmol/L (21-32); Chloride 114 mmol/L (98-107); Creatinine Clr Calc Pharmacy 37.7 ml/min; Est GFR (African American) 44.7; Est GFR (Non-African American) 38.6; Glucose 292 mg/dl (70-99); Lipase 166 U/L (73-393); Magnesium 1.7 mg/dl (1.8-2.4); Potassium 3.4 mmol/L (3.5-5.1); Sodium 143 mmol/L (136-145)
[2019-08-02 23:27] LABS: Basophils # (auto) 0.01 K/uL (0-0.2); Basophils % (auto) 0.3 %; Eosinophils # (auto) 0.14 K/uL (0-0.5); Eosinophils % (auto) 3.8 %; Immature Granulocytes # (auto) 0.01 K/uL (0.00-0.02); Immature Granulocytes % (auto) 0.3 %; Lymphocytes # (auto) 0.61 K/uL (1.2-3.4); Lymphocytes % (auto) 16.4 %; Monocytes # (auto) 0.35 K/uL (0.11-0.59); Monocytes % (auto) 9.4 %; Neutrophils # (auto) 2.59 K/uL (1.4-6.5); Neutrophils % (auto) 69.8 %; RBC Morphology Unremarkable
[2019-08-02 23:29] LABS: Albumin Globulin Ratio 0.4 (0.9-2); Alkaline Phosphatase 234 U/L (45-117); Bilirubin,Total 1.3 mg/dl (0.2-1); Globulin 5.6 gm/dl (2.5-4.0); NT Pro B Type Natriuretic Pept 8726 pg/ml (0-900); Total Protein 7.6 gm/dl (6.4-8.2); Troponin I < 0.015 ng/ml (0-0.045)
[2019-08-02 23:50] LABS: Bilirubin Direct 0.8 mg/dl (0-0.2)
[2019-08-02 23:53] LABS: Base Excess VBG -2.6 mEq/L; HCO3 VBG 21 mmol/L; PCO2 VBG 34 mmHg (38-50); PO2 VBG 30 mmHg; pH VBG 7.42 (7.36-7.41)
[2019-08-02 23:54] LABS: Oxygen Saturation VBG < 60.0 %
[2019-08-03] MEDS ORDERED: SODIUM CHLORIDE 0.9% 250 ML IV PRN (01:03)
--- NOTE | 2019-08-03 02:17 | Emergency Department Note ---
History of Present Illness General Chief complaint: Shortness of Breath/Dyspnea Stated complaint: SOB History of Present Illness This is a 64-year-old female presenting to the emergency department via ambulance for evaluation of worsening shortness of breath over the past 4 days. The patient has an extensive medical history including CHF, pulmonary hypertension, aortic stenosis, diabetes, liver cirrhosis, and chronic kidney disease. She was admitted to this facility approximately 6 weeks ago and ultimately transferred to [facility] in [place] for further evaluation of her liver. The patient has been doing well since being discharged from the [facility] facility after some mild medication changes. She states that a few days ago she started to feel much worse and has not been improving with her water pill at home. She does not report any fevers or chills. She has an intermittent dry cough but not a productive cough. She does not have significant chest pain or chest tightness, but feels like she is unable to catch her breath. She is also complaining of vague weakness in her legs. She states that at [facility] her ammonia level was elevated and she does get diarrhea with her lactulose. She feels like she has been eating and drinking as normal. No nausea or vomiting. She does make a small amount of urine on a daily basis. She rates her current discomfort a 5/10. Home Medications Home Medications Medication Instructions Recorded Confirmed Type aspirin 81 mg tablet,delayed 81 mg PO QAM #30 tab 01/27/19 08/02/19 Rx release ferrous sulfate 325 mg (65 mg 325 mg PO QAM tab 01/28/19 08/02/19 History iron) tablet folic acid 1 mg tablet 1 mg PO BID #60 tab 04/01/19 08/02/19 History nystatin 1 appln TOP BID PRN 04/08/19 08/02/19 History simvastatin 20 mg PO HS 04/08/19 08/02/19 History adhesive bandage #20 ea 05/18/19 07/13/19 Rx rifaximin 550 mg tablet 550 mg PO BID #60 tab 06/02/19 08/02/19 Rx venlafaxine 150 mg tablet,extended 150 mg PO QPM #30 tab 06/02/19 08/02/19 Rx release 24 hr omeprazole magnesium 20 mg 20 mg PO BID #30 tab 06/11/19 08/02/19 Rx tablet,delayed release walker #1 ea 06/25/19 07/13/19 Rx carvedilol 3.125 mg tablet 3.125 mg PO BID #60 tab 06/30/19 08/02/19 Rx furosemide 40 mg tablet 40 mg PO BID #60 tab 06/30/19 08/02/19 Rx potassium chloride 20 mEq 20 meq PO BID #60 tab 06/30/19 08/02/19 Rx tablet,extended release fluticasone propionate 2 sprays INTNAS DAILY PRN 07/13/19 08/02/19 History lactulose 15 ml PO BID 07/13/19 08/02/19 History spironolactone 50 mg PO QAM 07/13/19 08/02/19 History ropinirole 2 mg tablet 2 mg PO HS #30 tab 07/14/19 08/02/19 Rx Allergies Allergy/AdvReac Type Severity Reaction Status Date / Time Sulfa (Sulfonamide Allergy Mild Rash Verified 08/02/19 22:41 Antibiotics) sulfamethoxazole Allergy Mild RASH Verified 08/02/19 22:41 trimethoprim Allergy Mild RASH Verified 08/02/19 22:41 Bactrim Allergy Unknown RASH Verified 08/17/14 08:01 amlodipine AdvReac Intermediate confusion Verified 08/02/19 22:41 adhesive tape AdvReac Mild ITCHING Verified 08/02/19 22:41 Past Med/Surg History Medical History Anemia Anxiety Cardiac murmur Diabetes mellitus, type 2 Diverticular disease Duodenal ulcer Esophageal varices Gastric ulcer GERD (gastroesophageal reflux disease) History of recent blood transfusion 06/2019 Hyperlipidemia Hypertension Liver cirrhosis Nausea and vomiting after administration of anesthetic agent Osteoarthritis Psoriatic arthritis Restless leg syndrome Surgical History History of anesthesia reaction difficult to wake after bladder tack sx History of bilateral cataract extraction History of bladder surgery bladder tack History of colonoscopy History of esophagogastroduodenoscopy (EGD) multiple---last 06/22/19 Dr. 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: No Beliefs That Will Affect Care: None marital status: Current Living Situation: Spouse Current Living Situation Comment: Lives with and son current occupational status: retired Other Information That Helps Us Care for You: No Feels Safe at Home: Yes Safety Concerns: Feels Safe At This Time Smoking Status: Never smoker Second Hand Exposure: Yes (parents smoked) ; Hx Alcohol Use: No Hx Substance Use: No Childhood Exposure to Second-Hand Smoke: Yes Other Diet Comment: regular Dental Care, Regularly: No Physical Activity Frequency: Does not Exercise Seatbelt Use: sometimes Review of Systems A total of 10 systems reviewed and were otherwise negative Physical Exam Vital Signs Vital Signs - 24 hr 08/02/19 21:49 08/02/19 22:09 08/02/19 23:42 Temperature 36.9 C Temperature Source Oral Pulse Rate 79 Pulse Rate [Right] 84 Pulse Rhythm Pulse Rhythm [Right] Pulse Strength Pulse Strength [Right] Respiratory Rate 22 16 Respiratory Effort / Characteristics Spontaneous Short of Breath SOB on Exertion Non-Labored Spontaneous Respiratory Depth Normal Normal Respiratory Pattern Regular Blood Pressure 161/137 H Blood Pressure [Right Arm] 171/80 H Blood Pressure Mean 145 Blood Pressure Mean [Right Arm] 110 Blood Pressure Position Sitting Blood Pressure Position [Right Arm] Pulse Oximetry 96 94 96 Oxygen Delivery Method Room Air Room Air Room Air Sepsis Recent Fever Within 48 Hours No Sepsis New/Unexplained Change in Mental Status No Sepsis Action Taken by Nursing No Action Required 08/03/19 00:09 08/03/19 01:30 08/03/19 01:38 Temperature 36.9 C 37.0 C Temperature Source Oral Oral Pulse Rate 78 78 Pulse Rate [Right] 73 Pulse Rhythm Regular Regular Pulse Rhythm [Right] Regular Pulse Strength Normal Normal Pulse Strength [Right] Normal Respiratory Rate 16 16 18 Respiratory Effort / Characteristics Non-Labored Spontaneous Respiratory Depth Normal Respiratory Pattern Blood Pressure 157/64 H 145/64 H Blood Pressure [Right Arm] 165/56 H Blood Pressure Mean 95 91 Blood Pressure Mean [Right Arm] 92 Blood Pressure Position Lying Lying Blood Pressure Position [Right Arm] Lying Pulse Oximetry 93 93 93 Oxygen Delivery Method Room Air Sepsis Recent Fever Within 48 Hours Sepsis New/Unexplained Change in Mental Status Sepsis Action Taken by Nursing 08/03/19 01:46 08/03/19 02:01 Temperature 37.1 C 37.1 C Temperature Source Oral Oral Pulse Rate 75 74 Pulse Rate [Right] Pulse Rhythm Regular Regular Pulse Rhythm [Right] Pulse Strength Normal Normal Pulse Strength [Right] Respiratory Rate 16 16 Respiratory Effort / Characteristics Respiratory Depth Respiratory Pattern Blood Pressure 140/50 L 140/57 L Blood Pressure [Right Arm] Blood Pressure Mean 80 84 Blood Pressure Mean [Right Arm] Blood Pressure Position Lying Lying Blood Pressure Position [Right Arm] Pulse Oximetry 93 93 Oxygen Delivery Method Sepsis Recent Fever Within 48 Hours Sepsis New/Unexplained Change in Mental Status Sepsis Action Taken by Nursing VITALS: Vitals are noted on the nurse's note and reviewed by myself. Vital signs stable. GENERAL: Chronically ill-appearing white female who appears older than her stated age. She is mildly pale. She is cooperative and interacts appropr iately. HEAD: Normocephalic atraumatic. EYES: Pupils equal round and reactive to light and accommodation. Conjunctivae without injection, sclerae without icterus. Extraocular movements intact. MOUTH: Mucous membranes moist. Tonsils are not enlarged. Pharynx without erythema, blood, or exudate. Uvula midline. Airway patent. NECK: Supple without nuchal rigidity. No lymphadenopathy. No thyromegaly. Cervical spine is nontender. HEART: Regular rate and rhythm with harsh systolic murmur LUNGS: Clear to auscultation bilaterally without wheezes, rales or rhonchi. No retractions or accessory muscle use. ABDOMEN: Positive normal bowel sounds x 4. Soft, nontender, without masses or organomegaly. No guarding or rebound tenderness. MUSCULOSKELETAL: No muscle atrophy, erythema, or edema noted. Full range of motion in all extremities. NEURO: Patient was alert and oriented to person place and time. CN II through XII grossly intact. SKIN: The skin was without rashes, erythema, edema, or bruising. Capillary refill less than 2 seconds. Course Administered Medications Sodium Chloride (Nss 1000ml) 1,000 mls @ 125 mls/hr IV .Q8H BOBBY Stop: 09/01/19 22:14 Last Infusion: 08/03/19 01:23 Dose: 0 mls/hr Documented by: [id number] Admin: 08/02/19 22:22 Dose: 125 mls/hr Documented by: [id number] Critical Care Time I have personally spent greater than 30 minutes of critical care time in the direct management of this patient. This includes bedside care, interpretation of diagnostic studies, and testing, discussion with consultants, patient, and family members, and other required patient management activities. This 30 minutes is in excess of all separately billable procedures. Medical Decision Making Differential Diagnosis Differential diagnosis: Etiologies such as infections, reactive airway disease, COPD, pneumonia, pleural effusion, pulmonary edema, ARDS, pneumothorax, CHF, cardiac ischemia, cardiac tamponade, dysrhythmia, anemia, pulmonary embolism, musculoskeletal, gastrointestinal process, as well as others were entertained. Laboratory Data Result diagrams: 08/02/19 22:51 08/02/19 22:51 Lab Results 08/02/19 08/02/19 08/02/19 Range/Units 22:51 22:51 22:51 WBC 3.71 L (4.8-10.8) K/uL RBC 2.33 L (4.2-5.4) M/uL Hgb 6.9 L* (12.0-16.0) g/dL Hct 21.3 L (37-47) % MCV 91.4 (80-100) fL MCH 29.6 (25-34) pg MCHC 32.4 (32-36) g/dL RDW Std Deviation 60.8 H (36.4-46.3) fL RDW Coeff of Karina 18.3 H (11.5-14.5) % Plt Count 87 L (130-400) K/uL MPV 9.2 (7.4-10.4) fL Immature Gran % (Auto) 0.3 % Neut % (Auto) 69.8 % Lymph % (Auto) 16.4 % [place] % (Auto) 9.4 % Eos % (Auto) 3.8 % Baso % (Auto) 0.3 % Immature Gran # (Auto) 0.01 (0.00-0.02) K/uL Neut # (Auto) 2.59 (1.4-6.5) K/uL Lymph # (Auto) 0.61 L (1.2-3.4) K/uL [place] # (Auto) 0.35 (0.11-0.59) K/uL Eos # (Auto) 0.14 (0-0.5) K/uL Baso # (Auto) 0.01 (0-0.2) K/uL RBC Morphology Unremarkable PT (9.0-12.0) Seconds INR (0.9-1.1) APTT (21.0-31.0) Seconds PTT Ratio VBG pH (7.36-7.41) VBG pCO2 (38-50) mmHg VBG pO2 mmHg VBG HCO3 mmol/L VBG O2 Saturation % VBG Base Excess mEq/L Barometric Pressure mm/Hg Sodium 143 (136-145) mmol/L Potassium 3.4 L (3.5-5.1) mmol/L Chloride 114 H (98-107) mmol/L Carbon Dioxide 21 (21-32) mmol/L Anion Gap 8.0 (3-11) BUN 33 H (7-18) mg/dl Creatinine 1.44 H (0.6-1.2) mg/dl Est Cr Clr Drug Dosing 37.7 ml/min Est GFR ( Amer) 44.7 Est GFR (Non-Af Amer) 38.6 BUN/Creatinine Ratio 22.6 H (10-20) Glucose 292 H (70-99) mg/dl Lactate (0.4-2.0) mmol/L Calcium 8.0 L (8.5-10.1) mg/dl Magnesium 1.7 L (1.8-2.4) mg/dl Total Bilirubin 1.3 H (0.2-1) mg/dl Direct Bilirubin 0.8 H (0-0.2) mg/dl AST 25 (15-37) U/L ALT 21 (12-78) U/L Alkaline Phosphatase 234 H (45-117) U/L Ammonia 88.4 H (11-32) umol/L Troponin I < 0.015 (0-0.045) ng/ml NT-Pro-B Natriuret Pep 8726 H (0-900) pg/ml Total Protein 7.6 (6.4-8.2) gm/dl Albumin 2.0 L (3.4-5.0) gm/dl Globulin 5.6 H (2.5-4.0) gm/dl Albumin/Globulin Ratio 0.4 L (0.9-2) Lipase 166 (73-393) U/L TSH 3.570 (0.300-4.500) uIu/ml Blood Type Antibody Screen Crossmatch 08/02/19 08/02/19 08/02/19 Range/Units 22:51 23:24 23:37 WBC (4.8-10.8) K/uL RBC (4.2-5.4) M/uL Hgb (12.0-16.0) g/dL Hct (37-47) % MCV (80-100) fL MCH (25-34) pg MCHC (32-36) g/dL RDW Std Deviation (36.4-46.3) fL RDW Coeff of Karina (11.5-14.5) % Plt Count (130-400) K/uL MPV (7.4-10.4) fL Immature Gran % (Auto) % Neut % (Auto) % Lymph % (Auto) % [place] % (Auto) % Eos % (Auto) % Baso % (Auto) % Immature Gran # (Auto) (0.00-0.02) K/uL Neut # (Auto) (1.4-6.5) K/uL Lymph # (Auto) (1.2-3.4) K/uL [place] # (Auto) (0.11-0.59) K/uL Eos # (Auto) (0-0.5) K/uL Baso # (Auto) (0-0.2) K/uL RBC Morphology PT 13.0 H (9.0-12.0) Seconds INR 1.3 H (0.9-1.1) APTT 32.7 H (21.0-31.0) Seconds PTT Ratio 1.2 VBG pH 7.42 H (7.36-7.41) VBG pCO2 34 L (38-50) mmHg VBG pO2 30 mmHg VBG HCO3 21 mmol/L VBG O2 Saturation < 60.0 % VBG Base Excess -2.6 mEq/L Barometric Pressure 736.0 mm/Hg Sodium (136-145) mmol/L Potassium (3.5-5.1) mmol/L Chloride (98-107) mmol/L Carbon Dioxide (21-32) mmol/L Anion Gap (3-11) BUN (7-18) mg/dl Creatinine (0.6-1.2) mg/dl Est Cr Clr Drug Dosing ml/min Est GFR ( Amer) Est GFR (Non-Af Amer) BUN/Creatinine Ratio (10-20) Glucose (70-99) mg/dl Lactate (0.4-2.0) mmol/L Calcium (8.5-10.1) mg/dl Magnesium (1.8-2.4) mg/dl Total Bilirubin (0.2-1) mg/dl Direct Bilirubin (0-0.2) mg/dl AST (15-37) U/L ALT (12-78) U/L Alkaline Phosphatase (45-117) U/L Ammonia (11-32) umol/L Troponin I (0-0.045) ng/ml NT-Pro-B Natriuret Pep (0-900) pg/ml Total Protein (6.4-8.2) gm/dl Albumin (3.4-5.0) gm/dl Globulin (2.5-4.0) gm/dl Albumin/Globulin Ratio (0.9-2) Lipase (73-393) U/L TSH (0.300-4.500) uIu/ml Blood Type O Positive Antibody Screen NEGATIVE Crossmatch See Detail 08/02/19 Range/Units 23:37 WBC (4.8-10.8) K/uL RBC (4.2-5.4) M/uL Hgb (12.0-16.0) g/dL Hct (37-47) % MCV (80-100) fL MCH (25-34) pg MCHC (32-36) g/dL RDW Std Deviation (36.4-46.3) fL RDW Coeff of Karina (11.5-14.5) % Plt Count (130-400) K/uL MPV (7.4-10.4) fL Immature Gran % (Auto) % Neut % (Auto) % Lymph % (Auto) % [place] % (Auto) % Eos % (Auto) % Baso % (Auto) % Immature Gran # (Auto) (0.00-0.02) K/uL Neut # (Auto) (1.4-6.5) K/uL Lymph # (Auto) (1.2-3.4) K/uL [place] # (Auto) (0.11-0.59) K/uL Eos # (Auto) (0-0.5) K/uL Baso # (Auto) (0-0.2) K/uL RBC Morphology PT (9.0-12.0) Seconds INR (0.9-1.1) APTT (21.0-31.0) Seconds PTT Ratio VBG pH (7.36-7.41) VBG pCO2 (38-50) mmHg VBG pO2 mmHg VBG HCO3 mmol/L VBG O2 Saturation % VBG Base Excess mEq/L Barometric Pressure mm/Hg Sodium (136-145) mmol/L Potassium (3.5-5.1) mmol/L Chloride (98-107) mmol/L Carbon Dioxide (21-32) mmol/L Anion Gap (3-11) BUN (7-18) mg/dl Creatinine (0.6-1.2) mg/dl Est Cr Clr Drug Dosing ml/min Est GFR ( Amer) Est GFR (Non-Af Amer) BUN/Creatinine Ratio (10-20) Glucose (70-99) mg/dl Lactate 2.0 (0.4-2.0) mmol/L Calcium (8.5-10.1) mg/dl Magnesium (1.8-2.4) mg/dl Total Bilirubin (0.2-1) mg/dl Direct Bilirubin (0-0.2) mg/dl AST (15-37) U/L ALT (12-78) U/L Alkaline Phosphatase (45-117) U/L Ammonia (11-32) umol/L Troponin I (0-0.045) ng/ml NT-Pro-B Natriuret Pep (0-900) pg/ml Total Protein (6.4-8.2) gm/dl Albumin (3.4-5.0) gm/dl Globulin (2.5-4.0) gm/dl Albumin/Globulin Ratio (0.9-2) Lipase (73-393) U/L TSH (0.300-4.500) uIu/ml Blood Type Antibody Screen Crossmatch ECG Data Additional Comments: Normal sinus rhythm @76bpm No acute ST elevation Abnormal ECG When compared with ECG of 03-MAY-2019 22:28, Nonspecific T wave abnormality has replaced inverted T waves in Inferior leads T wave inversion no longer evident in Anterolateral leads QT has lengthened MDM Narrative Physical exam and history were performed. Nursing notes, EMR, and Medication List were personally reviewed. Patient appears to have shortness of breath symptoms over the past 3 to 4 days. On examination she does appear chronically ill, but is able to speak in full sentences, and appears to be mentating well. IV access was established and labs were obtained. The patient was very gently hydrated with normal saline as she does have a history of both heart failure and kidney disease. The patient was placed on the youth nutritional monitor. EKG is normal sinus rhythm without acute ST elevation. She was placed on the youth nutritional monitor. The case was discussed with my attending physician, Dr. Mae, who remained involved in patient care and decision-making. The patient's blood work is as above and was reviewed. She does not have a significantly elevated white blood cell count. The patient is anemic at 6.9, which does seem lower than her baseline of about 7.5. She does not have any active history of bleeding, and I suspect that this finding is from chronic disease and chronic kidney disease. She does not have any significant electrolyte imbalances. Creatinine is 1.44 which is roughly her new baseline the last several months. Lactic acid is negative with blood cultures pending. AST and ALT are normal, however alk phos is 234. Ammonia is elevated at 88, but again she is mentating is normal. Troponin x1 is negative. She did remain in normal sinus rhythm while on the youth nutritional monitor. Chest x-ray suggests a mild effusion, however this seems fairly chronic. She does not appear grossly fluid overloaded. Her BNP is 8000. Overall the patient does not appear well for discharge home. She is with shortness of breath and appears to be symptomatically anemic. She does have some element of CHF. I do not appreciate any acute bleed. Dr. Mae did obtain blood transfusion consent from the patient, and we did transfuse 1 unit of packed red cells here in the department. The patient may need diuresed, however we will refer this to the hospitalist team, who agreed to evaluate the patient here in the department. Please see their dictation for further patient course, plan, and disposition. The chart was completed utilizing [employer] Voice Recognition Software. Grammatical errors, random word insertions, pronoun errors, and incomplete sentences are an occasional consequence of this system due to software limitations, ambient noise, and hardware issues. Any formal questions or concerns about the content, text, or information contained within the body of this dictation should be directly addressed to the provider for clarification. . Impression & Plan Shortness of breath, CHF (congestive heart failure), Symptomatic anemia, Hyperammonemia Discharge Plan Visit Data *Final* Discharge Date/Time: 08/03/19 02:31 Chief Complaint: Shortness of Breath/Dyspnea Stated Complaint: SOB ED Provider: Levi Mae ED Midlevel Provider: Timur Lowe Discharge Problem: Shortness of breath, CHF (congestive heart failure), Symptomatic anemia, Hyperammonemia Patient Disposition: Admitted As Inpatient Discharge Instructions Interventions: ED Discharge Assessment Last Done: 08/03/19 02:31
--- NOTE | 2019-08-03 02:30 | History & Physical Report ---
Date of Service August 03, 2019 Assessment & Plan (1) Shortness of breath: Ms. Sherman is a very pleasant 64 year old female with a past medical history of hepatic cirrhosis, CKD stage III, pancytopenia, dysphagia, diabetes mellitus type 2, hyperlipidemia, depression, GERD, and restless leg syndrome who presented to [facility] due to a 3-day history of progressively worsening shortness of breath ED course: 1 L normal saline at 125 mL's per hour, 1 unit PRBC Anemia -Hemoglobin 6.9 on admission, was previously around 7.5 -No signs or symptoms of bleeding -Likely related to combination of iron deficiency anemia and anemia of chronic disease -transfused 1 unit prbcs in ED -trend CBC -continue home iron supplementation Left sided pleural effusion -CXR showed pulmonary vascular congestion and a left sided pleural effusion -unsure of chronicity of effusion given U/S in 06/2019 also showed an effusion -unsure how much this is contributing to presenting complaint of SOB -no oxygen demand, patient saturating well on room air -will hold home p.o. Lasix and give a trial of 25g of albumin with 20mg IV Lasix and assess response Pancytopenia -Related to liver cirrhosis -Platelets 87, no indication for transfusion Liver cirrhosis -felt to be secondary to FOWLER, however patient also reports it started after prolonged use of Cosentyx for her psoriatic arthritis (she is no longer on this medication) -no hx of alcohol abuse -has not yet seen hepatology - recommend confirming outpatient appt prior to d/c -EGD performed in 06/2019 showed non bleeding grade 1 esophageal varices and portal hypertensive gastropathy -continue home carvedilol and PPI Hyperammonemia -Patient mentating well -Ammonia level 88.4 on arrival -blood cx drawn x 2 and pending, however will defer abx for now as I do not suspect an infectious cause of her hyperammonemia -Continue home lactulose and rifaximin -titrate lactulose upwards if necessary -Repeat ammonia level tomorrow CKD stage 3 -baseline creatinine is reportedly 1, however has been ranging from 1.2 - 2.4 on recent lab work -creatinine 1.44 on admission -patient does appear clinically dry on examination - caution with overdiuresing -hold Lasix and Spironolactone. One dose of Lasix to be given with albumin as above History of type 2 diabetes mellitus -Patient was reportedly taken off medication due to improved glucose control -Hemoglobin A1c in 05/07 was 4.5% Restless leg syndrome -Continue home ropinirole Depression -Continue home venlafaxine Hypercholesterolemia -Continue home simvastatin -Continue home aspirin History of Dysphagia -had a dilation of esophagus over ten years ago -barium swallow during previous hospitalization showed esophageal spasm -longstanding issue, however dysphagia greatly improved - pt reports increased appetite CODE STATUS: Full DVT prophylaxis: SCDs Disposition: Admit to med/surg (2) Iron deficiency anemia: (3) Hypertension: (4) Depression: (5) CHF (congestive heart failure): (6) Pulmonary hypertension: (7) Aortic stenosis: (8) Mitral regurgitation: (9) Peptic ulcer disease: (10) Dyslipidemia: (11) Diabetic peripheral neuropathy: (12) Diabetic nephropathy: (13) Liver cirrhosis: (14) Psoriatic arthritis: (15) Anemia of chronic disease: (16) GERD (gastroesophageal reflux disease): (17) DM type 2 (diabetes mellitus, type 2): (18) Acute kidney injury: (19) Chronic kidney disease, stage III (moderate): History of Present Illness Chief Complaint: Shortness of breath Primary Care Provider: Rocío Alonso DO Ms. Sherman is a very pleasant 64 year old female with a past medical history of hepatic cirrhosis, CKD stage III, pancytopenia, dysphagia, diabetes mellitus type 2, hyperlipidemia, depression, GERD, and restless leg syndrome who presented to [facility] due to a 3-day history of progressively worsening shortness of breath. The patient reports that she was short of breath with minimal exertion, and was experiencing conversational dyspnea. She states that she felt similarly the last time her hemoglobin dropped, and she required a blood transfusion. She also endorses feeling weak, however denies any nausea, vomiting, abdominal pain, chest pain, fever, or chills. She denies any bleeding, and states that her bowels have been moving once every other day, without the presence of blood. With regards to her history of dysphagia, she states that this is improved, and she is now eating better. She reports that she has not yet seen a natural science curator for her liver cirrhosis. She speculates that her cirrhosis was caused by prolonged use of Cosentyx for her psoriatic arthritis. She is no longer on this medication. She denies alcohol use, or smoking. She reports compliance with her medications. Allergies Allergy/AdvReac Type Severity Reaction Status Date / Time Sulfa (Sulfonamide Allergy Mild Rash Verified 08/02/19 22:41 Antibiotics) sulfamethoxazole Allergy Mild RASH Verified 08/02/19 22:41 trimethoprim Allergy Mild RASH Verified 08/02/19 22:41 Bactrim Allergy Unknown RASH Verified 08/17/14 08:01 amlodipine AdvReac Intermediate confusion Verified 08/02/19 22:41 adhesive tape AdvReac Mild ITCHING Verified 08/02/19 22:41 Home Medications Home Medications Medication Instructions Recorded Confirmed Type aspirin 81 mg tablet,delayed 81 mg PO QAM #30 tab 01/27/19 08/02/19 Rx release ferrous sulfate 325 mg (65 mg 325 mg PO QAM tab 01/28/19 08/02/19 History iron) tablet folic acid 1 mg tablet 1 mg PO BID #60 tab 04/01/19 08/02/19 History nystatin 1 appln TOP BID PRN 04/08/19 08/02/19 History simvastatin 20 mg PO HS 04/08/19 08/02/19 History adhesive bandage #20 ea 05/18/19 07/13/19 Rx rifaximin 550 mg tablet 550 mg PO BID #60 tab 06/02/19 08/02/19 Rx venlafaxine 150 mg tablet,extended 150 mg PO QPM #30 tab 06/02/19 08/02/19 Rx release 24 hr omeprazole magnesium 20 mg 20 mg PO BID #30 tab 06/11/19 08/02/19 Rx tablet,delayed release walker #1 ea 06/25/19 07/13/19 Rx carvedilol 3.125 mg tablet 3.125 mg PO BID #60 tab 06/30/19 08/02/19 Rx furosemide 40 mg tablet 40 mg PO BID #60 tab 06/30/19 08/02/19 Rx potassium chloride 20 mEq 20 meq PO BID #60 tab 06/30/19 08/02/19 Rx tablet,extended release fluticasone propionate 2 sprays INTNAS DAILY PRN 07/13/19 08/02/19 History lactulose 15 ml PO BID 07/13/19 08/02/19 History spironolactone 50 mg PO QAM 07/13/19 08/02/19 History ropinirole 2 mg tablet 2 mg PO HS #30 tab 07/14/19 08/02/19 Rx Past Med/Surg History Medical History Anemia Anxiety Cardiac murmur Diabetes mellitus, type 2 Diverticular disease Duodenal ulcer Esophageal varices Gastric ulcer GERD (gastroesophageal reflux disease) History of recent blood transfusion 06/2019 Hyperlipidemia Hypertension Liver cirrhosis Nausea and vomiting after administration of anesthetic agent Osteoarthritis Psoriatic arthritis Restless leg syndrome Surgical History History of anesthesia reaction difficult to wake after bladder tack sx History of bilateral cataract extraction History of bladder surgery bladder tack History of colonoscopy History of esophagogastroduodenoscopy (EGD) multiple---last 06/22/19 Dr. 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 Required: No Beliefs That Will Affect Care: None marital status: Current Living Situation: Spouse Current Living Situation Comment: Lives with and son current occupational status: retired Other Information That Helps Us Care for You: No Feels Safe at Home: Yes Safety Concerns: Feels Safe At This Time Smoking Status: Never smoker Second Hand Exposure: Yes (parents smoked) ; Hx Alcohol Use: No Hx Substance Use: No Childhood Exposure to Second-Hand Smoke: Yes Other Diet Comment: regular Dental Care, Regularly: No Physical Activity Frequency: Does not Exercise Seatbelt Use: sometimes Review of Systems Constitutional: + fatigue; no fever, no chills and no anorexia Respiratory: + cough, + dyspnea and + dyspnea on exertion; no pain with cough and no wheezing Cardiovascular: no chest pain, no palpitations, no syncope, no edema and no calf pain Gastrointestinal: no abdominal pain, no nausea, no vomiting, no hematemesis, no change in bowel habits and no melena Genitourinary: no dysuria, no difficulty urinating and no urinary frequency Integumentary: no rash Physical Exam Constitutional: WD/WN, vitals as above Eyes: PERRL, conjunctivae normal, anicteric sclerae ENMT: external ear and nose normal, oropharynx normal (dry mucous membranes) Respiratory: normal respiratory effort, lungs clear to auscultation (decreased over left lung base) Cardiovascular: Rate/Rhythm: regular rate and regular rhythm Vessels: posterior tibial pulses present and dorsalis pedis pulses present Extremities: normal capillary refill and + pedal edema (trace) + systolic murmur Gastrointestinal (Abdomen): Inspection/Auscultation: abdomen normal to inspection; abdomen not distended Percussion/Palpation: abdomen soft; abdomen nontender, no guarding and abdomen not rigid Musculoskeletal: no cyanosis or clubbing, extremities motor strength 5/5 Right wrist in cast Neurologic: PERRL, EOMI, accommodation nl, no face palsy, no dysarthria Results & Data Vital Signs (Past 12 Hours) Vital Signs Temp Pulse Pulse Resp BP BP Pulse Ox 08/03/19 01:46 37.1 C 75 16 140/50 L 93 08/03/19 01:38 37.0 C 78 18 145/64 H 93 08/03/19 01:30 36.9 C 78 16 157/64 H 93 08/03/19 00:09 73 16 165/56 H 93 08/02/19 23:42 84 16 171/80 H 96 08/02/19 22:09 94 08/02/19 21:49 36.9 C 79 22 161/137 H 96 Code Status & VTE Plan VTE Prophylaxis Plan VTE Prophylaxis will be ordered: Yes Supervising Physician Co-Signing Physician Notes Attending addendum: I have physically seen this patient, have supervised the medical residents activities, and agree with the H&P unless as otherwise noted. Assessment and Plan: Shortness of breath/symptomatic anemia/left-sided pleural effusion/fluid overload- The patient will be admitted to telemetry for serial cardiac enzymes, serial EKG's, cardiac rhythm monitoring and a 2-D echocardiogram with Dopplers. Symptomatic anemia- Hemoglobin 6.9 upon admission, with recent range from from 6.3 on 06/20/2019-8.9 on 06/20/2019 status post transfusion PRBCs. We will transfuse 1 unit PRBCs tonight, and follow up H&H in the a.m. Fluid overload/left-sided pleural effusion/anasarca/hypoalbuminemia- Give albumin 25 g IV with Lasix 20 mg IV, with further dosings based upon response. Liver cirrhosis secondary to Fowler/asymptomatic hyperammonemia- Has had work-up since last hospitalization here from 06/19-06/21, at [facility] in [place]. She reports a follow-up with hepatology to be done at [facility] sometime in the next month. Titrate lactulose to at least daily to twice daily BMs, as at this point she has BMs every other day on average. Governed by ammonia levels as well. Temporarily hold oral Lasix and spironolactone and follow daily BMP and magnesium levels. Will need to be resumed prior to discharge. Remainder of orders and notations as noted. Resident Activity Tracking Resident Involvement: Resident Care Provided Care Provided: Adult Hospital Medicine (1) CHF (congestive heart failure) Heart failure chronicity: unspecified Heart failure type: unspecified Qualified Code(s): I50.9 - Heart failure, unspecified
[2019-08-03] MEDS ORDERED: ACETAMINOPHEN 325 MG TAB PO PRN (02:56)
[2019-08-03] MEDS ORDERED: MAGNESIUM OXIDE 400 MG TAB PO ONE (03:08)
--- NOTE | 2019-08-03 04:01 | Billing Data ---
Date of Service August 03, 2019 Coding Level of Care Code 35041 Initial Inpt Care Lvl 3
[2019-08-03] MEDS ORDERED: ALBUMIN 25% 50 ML with FUROSEMIDE 20 MG IV ONE (06:00)
[2019-08-03] MEDS: SODIUM CHLORIDE 0.9% 1000ML 1,000 ML IV SCH (06:07)
[2019-08-03 06:20] LABS: Hematocrit (blood only) 25.3 % (37-47); Hemoglobin 8.2 g/dL (12.0-16.0); Mean Corpuscular Hemoglobin 29.4 pg (25-34); Mean Corpuscular Hgb Conc 32.4 g/dL (32-36); Mean Corpuscular Volume 90.7 fL (80-100); RDW Coefficient of Variation 17.8 % (11.5-14.5); RDW Standard Deviation 59.2 fL (36.4-46.3); Red Blood Count 2.79 M/uL (4.2-5.4); White Blood Count 3.85 K/uL (4.8-10.8)
[2019-08-03 06:30] LABS: Mean Platelet Volume 9.5 fL (7.4-10.4); Platelet Count 82 K/uL (130-400)
--- NOTE | 2019-08-03 06:37 | XRay Report ---
XR chest 2V PA/lateral HISTORY: 64 years-old Female SOB acute shortness of breath COMPARISON: Chest radiographs 05/03/2019 TECHNIQUE: PA and lateral views of the chest FINDINGS: Cardiac silhouette is enlarged, unchanged. No overt pulmonary edema. Small pleural effusions. No pneu mothorax. Minimal right basilar atelectasis. Mild left basilar consolidation. Ill-defined right parat kristopher opacities have improved from comparison. Calcified plaque of the thoracic aortic arch. Degene rative changes of the left shoulder and spine. Limited lateral view secondary to positioning of the u pper extremities. Reverse right shoulder total joint arthroplasty. IMPRESSION: 1. Cardiomegaly without overt pulmonary edema. 2. Small pleural effusions with left basilar opacities suggestive of atelectasis or pneumonitis. 3. Ill-defined right paratracheal opacities may be secondary to summation density versus airspace dis ease. The above report was generated using voice recognition software. It may contain grammatical, syntax o r spelling errors. Electronically signed by: Ray Samson M.D. 08/03/2019 6:36 AM
[2019-08-03 06:39] LABS: Basophils # (auto) 0.02 K/uL (0-0.2); Basophils % (auto) 0.5 %; Eosinophils % (auto) 5.2 %; Lymphocytes # (auto) 0.71 K/uL (1.2-3.4); Lymphocytes % (auto) 18.4 %; Monocytes # (auto) 0.42 K/uL (0.11-0.59); Monocytes % (auto) 10.9 %
[2019-08-03 06:49] LABS: BUN Creatinine Ratio 24.3 (10-20); Calcium 8.2 mg/dl (8.5-10.1); Creatinine Clr Calc Pharmacy 39.3 ml/min; Est GFR (African American) 48.7; Est GFR (Non-African American) 42.1; Potassium 3.3 mmol/L (3.5-5.1)
[2019-08-03] MEDS ORDERED: ASPIRIN 81 MG ECTAB PO SCH (09:00)
[2019-08-03] MEDS: FERROUS SULFATE 325 MG TAB PO SCH (09:38)
[2019-08-03] MEDS: FOLIC ACID 1 MG TAB PO SCH ×2 (09:39→21:14)
[2019-08-03] MEDS: PANTOprazole 40 MG TAB PO SCH ×2 (09:39→21:14)
[2019-08-03] MEDS: POTASSIUM CHLORIDE 20 MEQ TABCR PO SCH ×2 (09:39→21:14)
[2019-08-03] MEDS: LACTULOSE SYRUP 20 GM/30 ML UDC PO SCH ×2 (09:40→21:14)
[2019-08-03] MEDS: RIFAXIMIN 550 MG TABLET PO SCH ×2 (09:40→21:14)
[2019-08-03] MEDS: carvediloL 3.125 MG TAB PO SCH ×2 (09:40→21:14)
--- NOTE | 2019-08-03 10:51 | Gastrointestinal Consultation ---
Date of Consultation August 03, 2019 History of Present Illness Attending Physician: Mali Mejia MD Allergies Allergy/AdvReac Type Severity Reaction Status Date / Time Sulfa (Sulfonamide Allergy Mild Rash Verified 08/02/19 22:41 Antibiotics) sulfamethoxazole Allergy Mild RASH Verified 08/02/19 22:41 trimethoprim Allergy Mild RASH Verified 08/02/19 22:41 Bactrim Allergy Unknown RASH Verified 08/17/14 08:01 amlodipine AdvReac Intermediate confusion Verified 08/02/19 22:41 adhesive tape AdvReac Mild ITCHING Verified 08/02/19 22:41 Home Medications Home Medications Medication Instructions Recorded Confirmed Type aspirin 81 mg tablet,delayed 81 mg PO QAM #30 tab 01/27/19 08/02/19 Rx release ferrous sulfate 325 mg (65 mg 325 mg PO QAM tab 01/28/19 08/02/19 History iron) tablet folic acid 1 mg tablet 1 mg PO BID #60 tab 04/01/19 08/02/19 History nystatin 1 appln TOP BID PRN 04/08/19 08/02/19 History simvastatin 20 mg PO HS 04/08/19 08/02/19 History adhesive bandage #20 ea 05/18/19 07/13/19 Rx rifaximin 550 mg tablet 550 mg PO BID #60 tab 06/02/19 08/02/19 Rx venlafaxine 150 mg tablet,extended 150 mg PO QPM #30 tab 06/02/19 08/02/19 Rx release 24 hr omeprazole magnesium 20 mg 20 mg PO BID #30 tab 06/11/19 08/02/19 Rx tablet,delayed release walker #1 ea 06/25/19 07/13/19 Rx carvedilol 3.125 mg tablet 3.125 mg PO BID #60 tab 06/30/19 08/02/19 Rx furosemide 40 mg tablet 40 mg PO BID #60 tab 06/30/19 08/02/19 Rx potassium chloride 20 mEq 20 meq PO BID #60 tab 06/30/19 08/02/19 Rx tablet,extended release fluticasone propionate 2 sprays INTNAS DAILY PRN 07/13/19 08/02/19 History lactulose 15 ml PO BID 07/13/19 08/02/19 History spironolactone 50 mg PO QAM 07/13/19 08/02/19 History ropinirole 2 mg tablet 2 mg PO HS #30 tab 07/14/19 08/02/19 Rx Patient History Medical History Anemia Anxiety Cardiac murmur Diabetes mellitus, type 2 Diverticular disease Duodenal ulcer Esophageal varices Gastric ulcer GERD (gastroesophageal reflux disease) History of recent blood transfusion 06/2019 Hyperlipidemia Hypertension Liver cirrhosis Nausea and vomiting after administration of anesthetic agent Osteoarthritis Psoriatic arthritis Restless leg syndrome Surgical History History of anesthesia reaction difficult to wake after bladder tack sx History of bilateral cataract extraction History of bladder surgery bladder tack History of colonoscopy History of esophagogastroduodenoscopy (EGD) multiple---last 06/22/19 Dr. 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 Required: No Beliefs That Will Affect Care: None marital status: Current Living Situation: Spouse Current Living Situation Comment: Lives with and son current occupational status: retired Other Information That Helps Us Care for You: No Feels Safe at Home: Yes Safety Concerns: Feels Safe At This Time Smoking Status: Never smoker Second Hand Exposure: Yes (parents smoked) ; Hx Alcohol Use: No Hx Substance Use: No Childhood Exposure to Second-Hand Smoke: Yes Other Diet Comment: regular Dental Care, Regularly: No Physical Activity Frequency: Does not Exercise Seatbelt Use: sometimes Results & Data Vital Signs (Past 12 Hours) Vital Signs Temp Pulse Pulse Resp BP BP BP 08/03/19 07:55 36.8 C 74 20 167/78 H 08/03/19 06:02 36.6 C 74 178/81 H 08/03/19 04:31 36.7 C 77 18 173/78 H 08/03/19 03:31 36.7 C 75 18 166/75 H 08/03/19 03:08 36.6 C 81 20 200/79 H 171/72 H 08/03/19 03:00 36.6 C 80 17 171/72 H 08/03/19 02:01 37.1 C 74 16 140/57 L 08/03/19 01:46 37.1 C 75 16 140/50 L 08/03/19 01:38 37.0 C 78 18 145/64 H 08/03/19 01:30 36.9 C 78 16 157/64 H 08/03/19 00:09 73 16 165/56 H 08/02/19 23:42 84 16 171/80 H Pulse Ox 08/03/19 07:55 93 08/03/19 06:02 93 08/03/19 04:31 95 08/03/19 03:31 95 08/03/19 03:08 95 08/03/19 03:00 95 08/03/19 02:01 93 08/03/19 01:46 93 08/03/19 01:38 93 08/03/19 01:30 93 08/03/19 00:09 93 08/02/19 23:42 96
[2019-08-03] MEDS ORDERED: SPIRONOLACTONE 25 MG TAB PO ONE (11:15)
[2019-08-03] MEDS ORDERED: FUROSEMIDE 40 MG TAB PO SCH (11:15)
--- NOTE | 2019-08-03 16:02 | Gastrointestinal Consultation ---
Date of Consultation August 03, 2019 Assessment & Plan (1) Iron deficiency anemia: Patient is a 64 yo female with ongoing anemia. Presented to ED with H/H of 6.9/21.3. Hemoglobin was 7.5 when she was discharged from [facility] several weeks ago where she underwent an EGD that did not indicate any active GI bleeding (she does have a history of Grade 1 esophageal varices for which she takes a beta maxwell). 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 Patient currently has no active GI bleeding and is on BID PPI therapy. -Continue to monitor H/H. -Monitor for s/s of active GI bleeding; If gross GI bleeding becomes apparent, will consider EGD at that time, though last EGD was <1 month ago for similar indication. -Continue beta maxwell for history of esophageal varices. -Continue Protonix 40 mg BID (Takes Omeprazole 20 mg BID at home). -Continue hematology follow-up as an outpatient. (2) 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: Patient has been evaluated by GI/hepatology at [facility] during recent transfer/hospitalization for her decompensating cirrhosis. She presently has a MELD score of 13. She should continue her beta maxwell for her history of portal hypertension, continue diuretics--Lasix & Spironolactone with K supplementation. As for her medication for hepatic encephalopathy, continue Xifaxan 550 mg BID & Lactulose (to be titrated to 3+ bowel movements daily). She should proceed with her hepatology appointment with [facility] as scheduled. Thank you for allowing us to participate in the care of this patient. If you should have any further questions or concerns, do not hesitate to contact us at extension [phone] or [phone]. Supervising Physician Co-Signing Physician Notes Agree with DANDY Elizabeth Abd: Soft, NT, ND, +BS Resume home meds Continue supportive care Recent E[place] performed [place] [facility] History of Present Illness Attending Physician: Mali Mejia MD History of Present Illness Patient is a 64 yo female with a history of MAE cirrhosis. She was recently transferred to [facility] due to her anemia & cirrhosis. She underwent an EGD at that time the re-demonstrated grade 1 varices for which she is on a daily beta maxwell. There was no active GI bleeding and it was felt that her ongoing Hematologic issues (polyclonal gammopathy) was contributing to her anemia. She takes daily PPI therapy. She follows with Dr. Stack in [place] for her anemia. As for her other cirrhosis related complications, she was evaluated by GI/Hepatology while an inpatient at [facility]. It was advised that she follow- up after discharge. It is unclear if she has done this yet, but does have an upcoming hepatology visit with Dr. Silver at [facility]. The patient has been noncompliant with office follow-up in our clinic, most recently as last week. Patient's medical picture is clouded by significant comorbidities. She has a past medical history of HTN, depression, CHF, pulmonary hypertension, aortic stenosis, mitral regurgitation, PUD, HLD, diabetes mellitus type 2 with neuropathy, psoriatic arthritis, CKD3, and polyclonal gammopathy. GI has been consulted for anemia & cirrhosis. Her current H/H is 8.2/25.3 and she has no evidence of gross GI bleeding. She did receive 1 unit of PRBCs in the ED. Her INR is 1.3. K 3.3, BUN/Cr 33/1.34, plt 82, T bili is 1.3, D bili 0.8, Alk phos 234, Albumin 2, & normal AST/ALT. CXR from this admission indicates cardiomegaly, left sided pleural effusion & unclear paratracheal opacities. Her BNP is 8726. Allergies Allergy/AdvReac Type Severity Reaction Status Date / Time Sulfa (Sulfonamide Allergy Mild Rash Verified 08/02/19 22:41 Antibiotics) sulfamethoxazole Allergy Mild RASH Verified 08/02/19 22:41 trimethoprim Allergy Mild RASH Verified 08/02/19 22:41 Bactrim Allergy Unknown RASH Verified 08/17/14 08:01 amlodipine AdvReac Intermediate confusion Verified 08/02/19 22:41 adhesive tape AdvReac Mild ITCHING Verified 08/02/19 22:41 Home Medications Home Medications Medication Instructions Recorded Confirmed Type aspirin 81 mg tablet,delayed 81 mg PO QAM #30 tab 01/27/19 08/02/19 Rx release ferrous sulfate 325 mg (65 mg 325 mg PO QAM tab 01/28/19 08/02/19 History iron) tablet folic acid 1 mg tablet 1 mg PO BID #60 tab 04/01/19 08/02/19 History nystatin 1 appln TOP BID PRN 04/08/19 08/02/19 History simvastatin 20 mg PO HS 04/08/19 08/02/19 History adhesive bandage #20 ea 05/18/19 07/13/19 Rx rifaximin 550 mg tablet 550 mg PO BID #60 tab 06/02/19 08/02/19 Rx venlafaxine 150 mg tablet,extended 150 mg PO QPM #30 tab 06/02/19 08/02/19 Rx release 24 hr omeprazole magnesium 20 mg 20 mg PO BID #30 tab 06/11/19 08/02/19 Rx tablet,delayed release walker #1 ea 06/25/19 07/13/19 Rx carvedilol 3.125 mg tablet 3.125 mg PO BID #60 tab 06/30/19 08/02/19 Rx furosemide 40 mg tablet 40 mg PO BID #60 tab 06/30/19 08/02/19 Rx potassium chloride 20 mEq 20 meq PO BID #60 tab 06/30/19 08/02/19 Rx tablet,extended release fluticasone propionate 2 sprays INTNAS DAILY PRN 07/13/19 08/02/19 History lactulose 15 ml PO BID 07/13/19 08/02/19 History spironolactone 50 mg PO QAM 07/13/19 08/02/19 History ropinirole 2 mg tablet 2 mg PO HS #30 tab 07/14/19 08/02/19 Rx Patient History Medical History Anemia Anxiety Cardiac murmur Diabetes mellitus, type 2 Diverticular disease Duodenal ulcer Esophageal varices Gastric ulcer GERD (gastroesophageal reflux disease) History of recent blood transfusion 06/2019 Hyperlipidemia Hypertension Liver cirrhosis Nausea and vomiting after administration of anesthetic agent Osteoarthritis Psoriatic arthritis Restless leg syndrome Surgical History History of anesthesia reaction difficult to wake after bladder tack sx History of bilateral cataract extraction History of bladder surgery bladder tack History of colonoscopy History of esophagogastroduodenoscopy (EGD) multiple---last 06/22/19 Dr. Malena Marie at [facility] History of hemiarthroplasty of right shoulder January 2018 post fracture History of repair of right rotator cuff History of revision of total shoulder arthroplasty Right shoulder, 12/29/18 History of tooth extraction all teeth S/P ORIF (open reduction internal fixation) fracture R shoulder, January 2018 Social History Preferred Language: Emirati Communication Ability: Effective Visual Impairment: Limited Hearing Ability: Normal Key Ringer Required: No Beliefs That Will Affect Care: None marital status: Current Living Situation: Spouse Current Living Situation Comment: Lives with and son current occupational status: retired Other Information That Helps Us Care for You: No Feels Safe at Home: Yes Safety Concerns: Feels Safe At This Time Smoking Status: Never smoker Second Hand Exposure: Yes (parents smoked) ; Hx Alcohol Use: No Hx Substance Use: No Childhood Exposure to Second-Hand Smoke: Yes Other Diet Comment: regular Dental Care, Regularly: No Physical Activity Frequency: Does not Exercise Seatbelt Use: sometimes Review of Systems Constitutional: + fatigue Eyes: no acute complaints Ear, Nose, Mouth, Throat: no acute complaints Respiratory: + dyspnea on exertion; no cough Cardiovascular: no chest pain Gastrointestinal: no abdominal pain, no bloating, no nausea, no vomiting, no dysphagia, no change in bowel habits and no blood in stools Musculoskeletal: + joint pain Integumentary: no rash Neurologic: no dizziness Psychiatric: no acute changes Hematologic / Lymphatic: + easy bleeding Physical Exam Constitutional: WD/WN, vitals as above Eyes: PERRL, conjunctivae normal, anicteric sclerae ENMT: external ear and nose normal, oropharynx normal Neck: normal visual inspection Respiratory: normal respiratory effort Cardiovascular: Rate/Rhythm: regular rate Gastrointestinal (Abdomen): Percussion/Palpation: + abdomen tender and abdomen soft no ascites Musculoskeletal: no cyanosis or clubbing, extremities motor strength 5/5 Skin: no rashes, warm and dry Neurologic: Speech / Cognition: normal speech Psychiatric: Orientation: alert and oriented x 3 Results & Data Vital Signs (Past 12 Hours) Vital Signs Temp Pulse Pulse Resp BP BP Pulse Ox 08/03/19 15:00 36.9 C 77 18 182/75 H 94 08/03/19 07:55 36.8 C 74 20 167/78 H 93 08/03/19 06:02 36.6 C 74 178/81 H 93 08/03/19 04:31 36.7 C 77 18 173/78 H 95 PG Care Time/CCT Total # of Minutes Spent Total Time Spent with Patient: Total time spent is greater than 50% in coordination of care (as documented) at patient's floor/unit and/or counseling patient: (1) Iron deficiency anemia Iron deficiency anemia type: other iron deficiency Qualified Code(s): D50.8 - Other iron deficiency anemias
[2019-08-03] MEDS: FUROSEMIDE 40 MG TAB PO SCH (16:34)
--- NOTE | 2019-08-03 18:37 | History & Physical Bridge Note ---
Date of Service August 03, 2019 History & Physical Bridge Note I have examined the patient, reviewed the History & Physical and in the interval since the performance of the History & Physical I have noted the following changes of clinical significance: Pt reports no improvement in her dyspnea despite receiving 1 unit of PRBCs and hgb now up to 8.2. Feels SOB just with trying to sit up in bed with minimal exertion. Also feels like her legs are more swollen than usual and the left leg always hurts. No chest pain. She cannot recall if she ever had a f/u CT Chest as recommended for a RUL 1.[address] seen on CT 01/2019. She did also have enlaring axillary ALISA at that time which was biopsied and this was negative. Her previous notes from Heme/Onc were reviewed as well. NAD, appears chronically illl RRR no mgr Lungs diminished throughout, no wcr, is mildly tachypneic with fluent sentences Abd +BS soft NT ND Ext 1-2+ pitting edema bilat to the knees Dyspnea--> with leg swelling, worsening dyspnea, mild hypoxia (POx 93% at rest on RA), and multiple comorbidities, inflammatory conditions, high risk for VTE Did not improve with transfusion of PRBCs Appreciate GI consult-no need for scope, no gross bleeding -check CTA Chest and will also assess the previously seen RUL nodule, pleural effusions -consider Heme/Onc consult for worsening pancytopenia -if has PE, would need heparin gtt given severe anemia, thrombocytopenia in case of bleeding
[2019-08-03] MEDS ORDERED: OPTIRAY 320 125ml IV PRN (19:45)
--- NOTE | 2019-08-03 20:16 | CT Scan Report ---
CHEST CTA for PULMONARY ARTERIES CT DOSE: 541.84 mGy.cm HISTORY: Shortness of breath. TECHNIQUE: Multiaxial CT images of the chest were performed following the intravenous administration of contrast to evaluate the pulmonary arteries. Maximal intensity projection images were also obtaine d. A dose lowering technique was utilized adhering to the principles of ALARA. COMPARISON STUDY: Chest CT 02/05/2019. FINDINGS: Normal caliber thoracic aorta with no evidence for dissection. The heart is top normal in s ize. No filling defects within the pulmonary arteries to suggest pulmonary embolus. There is a right shoulder prosthesis. No suspicious lytic are blastic osseous lesions. Healing left posterior 10th rib fracture. Nodular contour to the liver consistent with cirrhosis. Upper abdominal varices and a smal l amount of ascites are again noted. There is mild body wall edema. Normal esophagus. No hilar lympha denopathy. A single enlarged anterior pericardial lymph node remains unchanged. This measures 2.3 cm. Mild right axillary lymphadenopathy, unchanged. Small bilateral pleural effusions have increased in size. No pneumothorax. Bibasilar lower lobe densities are nonspecific but favor compressive atelectas is from the pleural effusions. Right upper and lower lobe perihilar groundglass airspace opacities. T his could be seen in the setting of asymmetric pulmonary edema or a pneumonia. IMPRESSION: 1. No evidence for pulmonary embolus. 2. Increase in size in the small bilateral pleural effusions. 3. Right upper and lower lobe perihilar groundglass airspace opacities. This can be seen in the setti ng of asymmetric pulmonary edema or a pneumonia. 4. Stable right axillary and anterior pericardial lymphadenopathy. 5. Cirrhotic liver with upper abdominal varices and a small amount of ascites. 6. Healing left posterior 10th rib fracture. Electronically signed by: James Murillo M.D. 08/03/2019 8:14 PM
[2019-08-03] MEDS: SIMVASTATIN 20 MG TAB PO SCH (21:14)
[2019-08-03] MEDS: ROPINIROLE HCL 1 MG TABLET PO SCH (21:14)
[2019-08-03] MEDS: VENLAFAXINE HCL XR 150 MG CAPXR PO SCH (21:14)
[2019-08-04 00:55] LABS: Appearance Urine Clear (Clear); Bacteria Urine Automated Negative (Negative); Bilirubin Urine Negative (Negative); Blood Urine 3+ (Negative); Color Urine Yellow; Epithelial Cell Urine Auto >30 /lpf (0-5); Glucose Urine UA Negative (Negative); Ketones Urine Negative (Negative); Leukocyte Esterase Urine Negative (Negative); Nitrite Urine Negative (Negative); Protein Urine 2+ (Negative); Specific Gravity Urine 1.031 (1.000-1.030); Urobilinogen Urine Negative (Negative)
[2019-08-04 05:08] LABS: Hematocrit (blood only) 23.9 % (37-47); Hemoglobin 7.8 g/dL (12.0-16.0); Mean Corpuscular Hemoglobin 30.1 pg (25-34); Mean Corpuscular Hgb Conc 32.6 g/dL (32-36); Mean Corpuscular Volume 92.3 fL (80-100); RDW Coefficient of Variation 18.1 % (11.5-14.5); RDW Standard Deviation 61.3 fL (36.4-46.3); Red Blood Count 2.59 M/uL (4.2-5.4); White Blood Count 3.84 K/uL (4.8-10.8)
[2019-08-04 05:20] LABS: INR 1.3 (0.9-1.1); Prothrombin Time 13.3 Seconds (9.0-12.0)
[2019-08-04 05:33] LABS: Basophils # (auto) 0.01 K/uL (0-0.2); Basophils % (auto) 0.3 %; Eosinophils # (auto) 0.17 K/uL (0-0.5); Eosinophils % (auto) 4.4 %; Immature Granulocytes # (auto) 0.01 K/uL (0.00-0.02); Immature Granulocytes % (auto) 0.3 %; Lymphocytes # (auto) 0.76 K/uL (1.2-3.4); Lymphocytes % (auto) 19.8 %; Mean Platelet Volume 9.2 fL (7.4-10.4); Monocytes # (auto) 0.46 K/uL (0.11-0.59); Neutrophils # (auto) 2.43 K/uL (1.4-6.5); Neutrophils % (auto) 63.2 %; Platelet Count 86 K/uL (130-400); Platelet Estimate Decreased (Normal); Schistocytes Occasional; Tear Drop Cells 1+
[2019-08-04 05:36] LABS: Albumin Level 2.1 gm/dl (3.4-5.0); BUN Creatinine Ratio 19.2 (10-20); Bilirubin Direct 0.8 mg/dl (0-0.2); Creatinine Clr Calc Pharmacy 32.9 ml/min; Est GFR (African American) 39.3; Est GFR (Non-African American) 33.9; Magnesium 1.6 mg/dl (1.8-2.4); Potassium 3.7 mmol/L (3.5-5.1)
[2019-08-04 05:41] LABS: Bilirubin,Total 1.6 mg/dl (0.2-1); Ferritin 133.1 ng/ml (8-388); Total Protein 7.5 gm/dl (6.4-8.2)
[2019-08-04 08:03] LABS: Vitamin B12 791 pg/ml (211-911)
[2019-08-04 08:04] LABS: Folate (Folic Acid) > 24.00 ng/ml (>5.38)
[2019-08-04] MEDS: FERROUS SULFATE 325 MG TAB PO SCH (09:01)
[2019-08-04] MEDS: carvediloL 3.125 MG TAB PO SCH ×2 (09:01→20:32)
[2019-08-04] MEDS: SPIRONOLACTONE 25 MG TAB PO SCH (09:02)
[2019-08-04] MEDS: FUROSEMIDE 40 MG TAB PO SCH ×2 (09:02→16:36)
[2019-08-04] MEDS: LACTULOSE SYRUP 20 GM/30 ML UDC PO SCH ×2 (09:02→20:29)
[2019-08-04] MEDS: POTASSIUM CHLORIDE 20 MEQ TABCR PO SCH ×2 (09:04→20:32)
[2019-08-04] MEDS: RIFAXIMIN 550 MG TABLET PO SCH ×2 (09:04→20:32)
[2019-08-04] MEDS: PANTOprazole 40 MG TAB PO SCH ×2 (09:04→20:31)
[2019-08-04] MEDS: FOLIC ACID 1 MG TAB PO SCH ×2 (09:04→20:31)
--- NOTE | 2019-08-04 09:53 | Gastroenterology Progress Note ---
Date of Service August 04, 2019 Assessment & Plan (1) Iron deficiency anemia: H/H 7.8/23.9 this AM. No evidence of GI bleeding. Recent EGD within the past month. -Continue to monitor H/H and monitor for signs of active GI bleeding -Continue Protonix 40 mg BID -Continue beta maxwell due to history of esophageal varices -Continue hematology follow-up for polyclonal gammopathy (2) 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: -Continue Aldactone & Furosemide at home dosages -Continue beta maxwell due to varices -Continue Xifaxan 550 mg BID & Lactulose (titrated to 3+ BMs daily) to prevent hepatic encephalopathy -Proceed with hepatology visit as scheduled in the outpatient setting -Patient is up to date with HCC screening Supervising Physician Co-Signing Physician Notes Agree with DANDY Elizabeth as above Abd: Soft, NT, ND Continue current therapy Followup as an outpatient as scheduled Subjective Patient is a 64 yo female with anemia & cirrhosis. She reports she is feeling somewhat better today. She acknowledges dyspnea on exertion, but reports overall her breathing is better than yesterday. As for her anemia, her H/H this AM is 7.8/23.9. She has trace edema bilaterally on the lower extremities. She does become intermittently confused about her plan of care, but denies abdominal pain, nausea, vomiting, constipation, diarrhea, hematemesis, or melena. She reports she is worried about returning home because her is having surgery today and "he doesn't like her to be home by herself." She is unsure how long he will remain hospitalized. Review of Systems Constitutional: no fever and no chills Respiratory: + dyspnea on exertion; no cough Cardiovascular: no chest pain Gastrointestinal: no abdominal pain, no heartburn, no coffee ground emesis, no dysphagia, no constipation and no melena Musculoskeletal: Swollen ankles Integumentary: no rash Physical Exam Constitutional: WD/WN, vitals as above Respiratory: normal respiratory effort, lungs clear to auscultation Cardiovascular: RRR, no murmur, no edema Gastrointestinal (Abdomen): normal bowel sounds, soft, nontender, no hepatosplenomegaly Musculoskeletal: trace BLLE Psychiatric: A+Ox3, euthymic affect Results & Data Vital Signs (Past 12 Hours) Vital Signs Temp Pulse Resp BP Pulse Ox 08/04/19 06:36 36.6 C 72 20 136/70 90 08/03/19 23:54 36.7 C 82 20 179/82 H 92 PG Care Time/CCT Total # of Minutes Spent Total Time Spent with Patient: Total time spent is greater than 50% in coordination of care (as documented) at patient's floor/unit and/or counseling patient: (1) Iron deficiency anemia Iron deficiency anemia type: other iron deficiency Qualified Code(s): D50.8 - Other iron deficiency anemias
[2019-08-04] MEDS ORDERED: SODIUM CHLORIDE 0.9% 250 ML IV PRN (10:05)
--- NOTE | 2019-08-04 10:14 | Hospitalist Progress Note ---
Date of Service August 04, 2019 Assessment & Plan (1) Shortness of breath: Ms. 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, polyclonal gammopathy, dysphagia, diabetes mellitus type 2, hyperlipidemia, depression, GERD, and restless leg syndrome who presented to [facility] due to a 3-day history of progressively worsening shortness of breath ED course: 1 L normal saline at 125 mL's per hour, 1 unit PRBC Anemia -Hemoglobin 6.9 on admission, was previously around 7.5-8.5 for many months -No signs or symptoms of bleeding -Fe studies consistent with chronic disease although were checked after transfusion -Likely related to combination of anemia of chronic disease, cirrhosis, polyclonal gammopathy -has had several bone marrow aspirates without multiple myeloma, follows with Heme/Onc in [place] -transfused 1 unit prbcs in ED and came up to 8.2--> will give another 1 units today for hgb drop again to 7.8 and continued GARCIA -trend CBC -continue home iron supplementation Left sided pleural effusion -CXR and CTA Chest showed pulmonary vascular congestion and a left sided pleural effusion -unsure of chronicity of effusion given U/S in 06/2019 also showed an effusion -unsure how much this is contributing to presenting complaint of SOB -continue home diuretics on lasix and aldactone, did receive 1 dose of IV lasix with albumin on admission, but also received approx 1L NS which has since been stopped -no oxygen demand, patient saturating well on room air but still has dyspnea Pancytopenia -Related to liver cirrhosis -Platelets 86 and stable, no indication for transfusion Liver cirrhosis -felt to be secondary to MAE, however patient also reports it started after prolonged use of Cosentyx for her psoriatic arthritis (she is no longer on this medication) -no hx of alcohol abuse -has not yet seen hepatology - recommend confirming outpatient appt prior to d/c -is UTD on HCC screening as per GI -EGD performed in 06/2019 showed non bleeding grade 1 esophageal varices and portal hypertensive gastropathy -continue home carvedilol and PPI Hyperammonemia -Patient mentating well -Ammonia level 88.4 on arrival and then down to 77 -blood cx drawn x 2 and pending, however will defer abx for now as I do not suspect an infectious cause of her hyperammonemia -Continue home lactulose and rifaximin -titrate lactulose upwards if necessary -no need to follow NH3 CKD stage 3 -baseline creatinine is reportedly 1, however has been ranging from 1.2 - 2.4 on recent lab work -creatinine 1.44 on admission, then 1.3, now 1.6 after restarting home diuretics and did get IV contrast for CT -ok to continue home diuretics -follow BMP History of type 2 diabetes mellitus -Patient was reportedly taken off medication due to improved glucose control -Hemoglobin A1c in 05/07 was 4.5% Restless leg syndrome -Continue home ropinirole Depression -Continue home venlafaxine Hypercholesterolemia -Continue home simvastatin -hold home aspirin due to previous gastritis, esophageal varices, and severe anemia History of Dysphagia -had a dilation of esophagus over ten years ago -barium swallow during previous hospitalization showed esophageal spasm -longstanding issue, however dysphagia greatly improved - pt reports increased appetite CODE STATUS: Full DVT prophylaxis: SCDs Disposition: continued stay (2) Iron deficiency anemia: (3) Hypertension: (4) Depression: (5) CHF (congestive heart failure): (6) Pulmonary hypertension: (7) Aortic stenosis: (8) Mitral regurgitation: (9) Peptic ulcer disease: (10) Dyslipidemia: (11) Diabetic peripheral neuropathy: (12) Diabetic nephropathy: (13) Liver cirrhosis: (14) Psoriatic arthritis: (15) Anemia of chronic disease: (16) GERD (gastroesophageal reflux disease): (17) DM type 2 (diabetes mellitus, type 2): (18) Acute kidney injury: (19) Chronic kidney disease, stage III (moderate): Subjective Feels her breathing is slightly improved today, less SOB. No chest pain, no ab dpain. Had a BM today that was formed. Does not feel ready to go home yet Review of Systems Review of Systems: All systems reviewed & are unremarkable except as noted in HPI & below Physical Exam Constitutional: WD/WN, vitals as above Eyes: + anicteric sclerae Neck: trachea midline, no thyromegaly Respiratory: normal respiratory effort; no labored breathing Auscultation: + diminished lung sounds (throughout); no crackles, no rhonchi and no wheezes Cardiovascular: Rate/Rhythm: regular rate and regular rhythm Heart Sounds: no murmur Extremities: + edema (1+ pitting edema legs bilat,improved) Chest (Breasts): Chest: normal inspection of chest Gastrointestinal (Abdomen): normal bowel sounds, soft, nontender, no hepatosplenomegaly Musculoskeletal: Extremities: extremities normal to inspection; no cyanosis and no clubbing Skin: no rashes, warm and dry Neurologic: moves all extremities and awake; no focal motor deficits Psychiatric: A+Ox3, euthymic affect Lymphatic: no lymphedema Results & Data Vital Signs (Past 12 Hours) Vital Signs Temp Pulse Resp BP Pulse Ox 08/04/19 06:36 36.6 C 72 20 136/70 90 08/03/19 23:54 36.7 C 82 20 179/82 H 92 Laboratory Results 08/04/19 08/04/19 08/04/19 Range/Units 04:46 04:46 04:46 WBC (4.8-10.8) K/uL RBC (4.2-5.4) M/uL Hgb (12.0-16.0) g/dL Hct (37-47) % MCV (80-100) fL MCH (25-34) pg MCHC (32-36) g/dL RDW Std Deviation (36.4-46.3) fL RDW Coeff of Karina (11.5-14.5) % Plt Count (130-400) K/uL MPV (7.4-10.4) fL Immature Gran % (Auto) % Neut % (Auto) % Lymph % (Auto) % [place] % (Auto) % Eos % (Auto) % Baso % (Auto) % Immature Gran # (Auto) (0.00-0.02) K/uL Neut # (Auto) (1.4-6.5) K/uL Lymph # (Auto) (1.2-3.4) K/uL [place] # (Auto) (0.11-0.59) K/uL Eos # (Auto) (0-0.5) K/uL Baso # (Auto) (0-0.2) K/uL Platelet Estimate (Normal) Tear Drop Cells Schistocytes PT 13.3 H (9.0-12.0) Seconds INR 1.3 H (0.9-1.1) Sodium 141 (136-145) mmol/L Potassium 3.7 (3.5-5.1) mmol/L Chloride 117 H (98-107) mmol/L Carbon Dioxide 21 (21-32) mmol/L Anion Gap 3.0 (3-11) BUN 31 H (7-18) mg/dl Creatinine 1.60 H (0.6-1.2) mg/dl Est Cr Clr Drug Dosing 32.9 ml/min Est GFR ( Amer) 39.3 Est GFR (Non-Af Amer) 33.9 BUN/Creatinine Ratio 19.2 (10-20) Glucose 199 H (70-99) mg/dl Calcium 8.0 L (8.5-10.1) mg/dl Magnesium 1.6 L (1.8-2.4) mg/dl Iron 42 (35-150) mcg/dl TIBC 188 L (250-450) mcg/dl Transferrin 137 L (200-360) mg/dl Transferrin % Sat 22 (15-50) % Ferritin 133.1 (8-388) ng/ml Total Bilirubin 1.6 H (0.2-1) mg/dl Direct Bilirubin 0.8 H (0-0.2) mg/dl AST 25 (15-37) U/L ALT 18 (12-78) U/L Alkaline Phosphatase 202 H (45-117) U/L Total Protein 7.5 (6.4-8.2) gm/dl Albumin 2.1 L (3.4-5.0) gm/dl Vitamin B12 791 (211-911) pg/ml Folate > 24.00 (>5.38) ng/ml Urine Color Urine Appearance (Clear) Urine pH (4.5-7.5) Ur Specific [place] (1.000-1.030) Urine Protein (Negative) Urine Glucose (UA) (Negative) Urine Ketones (Negative) Urine Blood (Negative) Urine Nitrite (Negative) Urine Bilirubin (Negative) Urine Urobilinogen (Negative) Ur Leukocyte Esterase (Negative) Urine WBC (Auto) (0-5) /hpf Urine RBC (Auto) (0-4) /hpf U Hyaline Cast (Auto) (0-5) /lpf U Epithel Cells (Auto) (0-5) /lpf Urine Bacteria (Auto) (Negative) Crossmatch 08/04/19 08/04/19 08/02/19 Range/Units 04:46 00:30 23:24 WBC 3.84 L (4.8-10.8) K/uL RBC 2.59 L (4.2-5.4) M/uL Hgb 7.8 L (12.0-16.0) g/dL Hct 23.9 L (37-47) % MCV 92.3 (80-100) fL MCH 30.1 (25-34) pg MCHC 32.6 (32-36) g/dL RDW Std Deviation 61.3 H (36.4-46.3) fL RDW Coeff of Karina 18.1 H (11.5-14.5) % Plt Count 86 L (130-400) K/uL MPV 9.2 (7.4-10.4) fL Immature Gran % (Auto) 0.3 % Neut % (Auto) 63.2 % Lymph % (Auto) 19.8 % [place] % (Auto) 12.0 % Eos % (Auto) 4.4 % Baso % (Auto) 0.3 % Immature Gran # (Auto) 0.01 (0.00-0.02) K/uL Neut # (Auto) 2.43 (1.4-6.5) K/uL Lymph # (Auto) 0.76 L (1.2-3.4) K/uL [place] # (Auto) 0.46 (0.11-0.59) K/uL Eos # (Auto) 0.17 (0-0.5) K/uL Baso # (Auto) 0.01 (0-0.2) K/uL Platelet Estimate Decreased L (Normal) Tear Drop Cells 1+ Schistocytes Occasional PT (9.0-12.0) Seconds INR (0.9-1.1) Sodium (136-145) mmol/L Potassium (3.5-5.1) mmol/L Chloride (98-107) mmol/L Carbon Dioxide (21-32) mmol/L Anion Gap (3-11) BUN (7-18) mg/dl Creatinine (0.6-1.2) mg/dl Est Cr Clr Drug Dosing ml/min Est GFR ( Amer) Est GFR (Non-Af Amer) BUN/Creatinine Ratio (10-20) Glucose (70-99) mg/dl Calcium (8.5-10.1) mg/dl Magnesium (1.8-2.4) mg/dl Iron (35-150) mcg/dl TIBC (250-450) mcg/dl Transferrin (200-360) mg/dl Transferrin % Sat (15-50) % Ferritin (8-388) ng/ml Total Bilirubin (0.2-1) mg/dl Direct Bilirubin (0-0.2) mg/dl AST (15-37) U/L ALT (12-78) U/L Alkaline Phosphatase (45-117) U/L Total Protein (6.4-8.2) gm/dl Albumin (3.4-5.0) gm/dl Vitamin B12 (211-911) pg/ml Folate (>5.38) ng/ml Urine Color Yellow Urine Appearance Clear (Clear) Urine pH 5.0 (4.5-7.5) Ur Specific [place] 1.031 H (1.000-1.030) Urine Protein 2+ H (Negative) Urine Glucose (UA) Negative (Negative) Urine Ketones Negative (Negative) Urine Blood 3+ H (Negative) Urine Nitrite Negative (Negative) Urine Bilirubin Negative (Negative) Urine Urobilinogen Negative (Negative) Ur Leukocyte Esterase Negative (Negative) Urine WBC (Auto) 1-5 (0-5) /hpf Urine RBC (Auto) 10-30 H (0-4) /hpf U Hyaline Cast (Auto) 1-5 (0-5) /lpf U Epithel Cells (Auto) >30 H (0-5) /lpf Urine Bacteria (Auto) Negative (Negative) Crossmatch See Detail PG Care Time/CCT Total # of Minutes Spent Total Time Spent with Patient: Total time spent is greater than 50% in coordination of care (as documented) at patient's floor/unit and/or counseling patient: (1) CHF (congestive heart failure) Heart failure chronicity: unspecified Heart failure type: unspecified Qualified Code(s): I50.9 - Heart failure, unspecified (2) Iron deficiency anemia Iron deficiency anemia type: other iron deficiency Qualified Code(s): D50.8 - Other iron deficiency anemias
[2019-08-04] MEDS: MAGNESIUM SULFATE / D5W 1 GM/100 ML BAG IV SCH ×2 (10:23→14:06)
[2019-08-04] MEDS: ACETAMINOPHEN 325 MG TAB PO PRN (16:35)
[2019-08-04] MEDS: ROPINIROLE HCL 1 MG TABLET PO SCH (20:31)
[2019-08-04] MEDS: SIMVASTATIN 20 MG TAB PO SCH (20:31)
[2019-08-04] MEDS: VENLAFAXINE HCL XR 150 MG CAPXR PO SCH (20:33)
[2019-08-05 05:50] LABS: Hematocrit (blood only) 25.4 % (37-47); Hemoglobin 8.2 g/dL (12.0-16.0); Mean Corpuscular Hemoglobin 29.2 pg (25-34); Mean Corpuscular Hgb Conc 32.3 g/dL (32-36); Mean Corpuscular Volume 90.4 fL (80-100); RDW Coefficient of Variation 17.3 % (11.5-14.5); Red Blood Count 2.81 M/uL (4.2-5.4); White Blood Count 3.32 K/uL (4.8-10.8)
[2019-08-05 05:52] LABS: Mean Platelet Volume 9.9 fL (7.4-10.4); Platelet Count 74 K/uL (130-400)
[2019-08-05 06:17] LABS: Basophils # (auto) 0.01 K/uL (0-0.2); Basophils % (auto) 0.3 %; Echinocytes 1+; Eosinophils # (auto) 0.13 K/uL (0-0.5); Eosinophils % (auto) 3.9 %; Lymphocytes % (auto) 24.1 %; Neutrophils # (auto) 1.98 K/uL (1.4-6.5); Neutrophils % (auto) 59.7 %
[2019-08-05 06:27] LABS: BUN Creatinine Ratio 17.2 (10-20); Calcium 8.3 mg/dl (8.5-10.1); Creatinine Clr Calc Pharmacy 25.8 ml/min; Est GFR (African American) 29.3; Est GFR (Non-African American) 25.3; Potassium 4.1 mmol/L (3.5-5.1)
[2019-08-05 06:30] LABS: Bilirubin Direct 0.9 mg/dl (0-0.2); Bilirubin,Total 1.6 mg/dl (0.2-1); Total Protein 7.5 gm/dl (6.4-8.2)
[2019-08-05] MEDS: FOLIC ACID 1 MG TAB PO SCH ×2 (08:00→20:25)
[2019-08-05] MEDS: FUROSEMIDE 40 MG TAB PO SCH ×2 (08:00→16:55)
[2019-08-05] MEDS: SPIRONOLACTONE 25 MG TAB PO SCH (08:00)
[2019-08-05] MEDS: LACTULOSE SYRUP 20 GM/30 ML UDC PO SCH (08:00)
[2019-08-05] MEDS: carvediloL 3.125 MG TAB PO SCH ×2 (08:00→20:27)
[2019-08-05] MEDS: PANTOprazole 40 MG TAB PO SCH ×2 (08:01→20:26)
[2019-08-05] MEDS: FERROUS SULFATE 325 MG TAB PO SCH (08:01)
[2019-08-05] MEDS: POTASSIUM CHLORIDE 20 MEQ TABCR PO SCH (08:01)
[2019-08-05] MEDS: RIFAXIMIN 550 MG TABLET PO SCH ×2 (08:01→20:26)
--- NOTE | 2019-08-05 13:54 | Nephrology Consultation ---
Date of Consultation August 05, 2019 Assessment & Plan (1) Liver cirrhosis secondary to FOWLER: (2) Hypertension: (3) Diabetic nephropathy: (4) Polyclonal gammopathy: (5) Anemia of chronic disease: Followed by Hematology as an outpatient. Blood counts have been stable following transfusion. Iron stores have been acceptable. (6) Acute kidney injury: Suspect there is a component of ATN. Urine studies will be repeated today. I will check a random urine sodium. Patient's volume status is hypervolemic. I agree with continuing diuretics to maintain a negative fluid balance. Blood pressure is acceptable. No specifically nephrotoxic medications were identified. I would suggest we document input and output completely. I will repeat a metabolic profile tomorrow morning. Electrolytes are acceptable. Patient has been nonoliguric by report. No additional renal imaging is necessary at this time. She does have a mild non-anion gap metabolic acidosis which will monitor. (7) Chronic kidney disease, stage III (moderate): Baseline creatinine of approximately 1.3 mg/dL. Urine findings demonstrate persistent microscopic hematuria. Patient has not had previous evaluation for this. Would suggest she undergo urologic evaluation when she is discharged from the hospital. She does had persistent proteinuria. There has been a discrepancy between her urine analysis as well as the protein to creatinine ratio. Suspect this is related to her polyclonal gammopathy. However she has not had significant evidence of a monoclonal gammopathy of renal significance. I defer additional workup at this time. History of Present Illness Reason for Consultation: HENRIQUE/CKD Requesting Physician: Mali Mejia MD Attending Physician: Mali Mejia MD History of Present Illness Mrs. Angela Sherman is a 64-year-old female with obesity, Fowler, psoriatic arthritis, aortic stenosis, diabetes mellitus type 2, cirrhosis, and chronic kidney disease. Patient was seen and evaluated this morning in her hospital room. Nephrology consultation requested for acute on chronic kidney injury. Baseline creatinine was approximately 1 point 3 mg/dL. Creatinine was 2.0 mg/dL this morning. Patient has been nonoliguric. Input and output has not been completely documented. Angela presented to [facility] on August 03 with shortness of breath. She was found to have acute on chronic anemia. CTA of the chest did not demonstrate any PE. Patient received IV saline as well as 1 unit of packed red blood cells. Her symptoms have improved her blood counts have been stable. GI consultation has been completed. EGD was deferred at this time. Symptomatically the patient has been feeling well, unfortunately her kidney function has been worsening. Medical history is notable for cirrhosis. The patient's meld score is 13. Complications of her cirrhosis include ascites and hepatic encephalopathy as well as grade 1 varices. Patient has not had GI bleeding in the past. She has not required recent paracentesis. She has a polyclonal gammopathy for which he follows with Hematology. She has a history of psoriatic arthritis for which she was maintained on cosentyx in the past. Angela has diabetes mellitus complicated by neuropathy. Urine studies of demonstrated 2+ protein with specific gravity of 1.031. The patient has persistent microscopic hematuria with 10-30 red blood cells per high-power field. She has not had white blood cells. Allergies Allergy/AdvReac Type Severity Reaction Status Date / Time Sulfa (Sulfonamide Allergy Mild Rash Verified 08/02/19 22:41 Antibiotics) sulfamethoxazole Allergy Mild RASH Verified 08/02/19 22:41 trimethoprim Allergy Mild RASH Verified 08/02/19 22:41 Bactrim Allergy Unknown RASH Verified 08/17/14 08:01 amlodipine AdvReac Intermediate confusion Verified 08/02/19 22:41 adhesive tape AdvReac Mild ITCHING Verified 08/02/19 22:41 Home Medications Home Medications Medication Instructions Recorded Confirmed Type aspirin 81 mg tablet,delayed 81 mg PO QAM #30 tab 01/27/19 08/02/19 Rx release ferrous sulfate 325 mg (65 mg 325 mg PO QAM tab 01/28/19 08/02/19 History iron) tablet folic acid 1 mg tablet 1 mg PO BID #60 tab 04/01/19 08/02/19 History nystatin 1 appln TOP BID PRN 04/08/19 08/02/19 History simvastatin 20 mg PO HS 04/08/19 08/02/19 History adhesive bandage #20 ea 05/18/19 07/13/19 Rx rifaximin 550 mg tablet 550 mg PO BID #60 tab 06/02/19 08/02/19 Rx venlafaxine 150 mg tablet,extended 150 mg PO QPM #30 tab 06/02/19 08/02/19 Rx release 24 hr omeprazole magnesium 20 mg 20 mg PO BID #30 tab 06/11/19 08/02/19 Rx tablet,delayed release walker #1 ea 06/25/19 07/13/19 Rx carvedilol 3.125 mg tablet 3.125 mg PO BID #60 tab 06/30/19 08/02/19 Rx furosemide 40 mg tablet 40 mg PO BID #60 tab 06/30/19 08/02/19 Rx potassium chloride 20 mEq 20 meq PO BID #60 tab 06/30/19 08/02/19 Rx tablet,extended release fluticasone propionate 2 sprays INTNAS DAILY PRN 07/13/19 08/02/19 History lactulose 15 ml PO BID 07/13/19 08/02/19 History spironolactone 50 mg PO QAM 07/13/19 08/02/19 History ropinirole 2 mg tablet 2 mg PO HS #30 tab 07/14/19 08/02/19 Rx Patient History Medical History Anemia Anxiety Cardiac murmur Diabetes mellitus, type 2 Diverticular disease Duodenal ulcer Esophageal varices Gastric ulcer GERD (gastroesophageal reflux disease) History of recent blood transfusion 06/2019 Hyperlipidemia Hypertension Liver cirrhosis Nausea and vomiting after administration of anesthetic agent Osteoarthritis Psoriatic arthritis Restless leg syndrome Surgical History History of anesthesia reaction difficult to wake after bladder tack sx History of bilateral cataract extraction History of bladder surgery bladder tack History of colonoscopy History of esophagogastroduodenoscopy (EGD) multiple---last 06/22/19 Dr. Malena Marie at [facility] History of hemiarthroplasty of right shoulder January 2018 post fracture History of repair of right rotator cuff History of revision of total shoulder arthroplasty Right shoulder, 12/29/18 History of tooth extraction all teeth S/P ORIF (open reduction internal fixation) fracture R shoulder, January 2018 Family History Grandmother (Paternal) Family history of diabetes mellitus Father COPD (chronic obstructive pulmonary disease) Mother Hypertension Family/Other Cancer Sister Ovarian cancer Social History Preferred Language: Upper Sorbian Communication Ability: Effective Visual Impairment: Limited Hearing Ability: Normal 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 Beliefs That Will Affect Care: None marital status: Current Living Situation: Spouse Current Living Situation Comment: Lives with and son current occupational status: retired Other Information That Helps Us Care for You: No Feels Safe at Home: Yes Safety Concerns: Feels Safe At This Time Smoking Status: Never smoker Second Hand Exposure: Yes (parents smoked) ; Hx Alcohol Use: No Hx Substance Use: No Childhood Exposure to Second-Hand Smoke: Yes Other Diet Comment: regular Dental Care, Regularly: No Physical Activity Frequency: Does not Exercise Seatbelt Use: sometimes Review of Systems Review of Systems: All systems reviewed & are unremarkable except as noted in HPI & below Physical Exam Constitutional: well developed and + obese; no acute distress and not ill appearing Eyes: + anicteric sclerae; no corneal abnormality ENMT: Mouth: no oral mucosal abnormality and oral mucous membranes not dry Neck: normal visual inspection and trachea midline Respiratory: normal respiratory effort Auscultation: lungs clear to auscultation bilaterally Cardiovascular: Rate/Rhythm: regular rate Heart Sounds: normal S1 and normal S2 Vessels: no JVD Extremities: + edema Musculoskeletal: Extremities: no cyanosis and no clubbing Skin: normal turgor; no lesions and no jaundice Neurologic: Motor/Sensory: no tremor and no asterixis Psychiatric: Orientation: alert and oriented x 3 Results & Data Vital Signs (Past 12 Hours) Vital Signs Temp Pulse Resp BP Pulse Ox 08/05/19 06:17 36.4 C L 63 17 137/72 93 Laboratory Results Laboratory Results - last 24 hr 08/05/19 08/05/19 05:25 05:25 WBC 3.32 L RBC 2.81 L Hgb 8.2 L Hct 25.4 L MCV 90.4 MCH 29.2 MCHC 32.3 RDW Std Deviation 58.0 H RDW Coeff of Karina 17.3 H Plt Count 74 L MPV 9.9 Immature Gran % (Auto) 0.0 Neut % (Auto) 59.7 Lymph % (Auto) 24.1 [place] % (Auto) 12.0 Eos % (Auto) 3.9 Baso % (Auto) 0.3 Immature Gran # (Auto) 0.00 Neut # (Auto) 1.98 Lymph # (Auto) 0.80 L [place] # (Auto) 0.40 Eos # (Auto) 0.13 Baso # (Auto) 0.01 Echinocytes 1+ Sodium 140 Potassium 4.1 Chloride 115 H Carbon Dioxide 20 L Anion Gap 5.0 BUN 35 H Creatinine 2.04 H D Est Cr Clr Drug Dosing 25.8 Est GFR ( Amer) 29.3 Est GFR (Non-Af Amer) 25.3 BUN/Creatinine Ratio 17.2 Glucose 108 H Calcium 8.3 L Total Bilirubin 1.6 H Direct Bilirubin 0.9 H AST 25 ALT 18 Alkaline Phosphatase 194 H Total Protein 7.5 Albumin 2.0 L PG Care Time/CCT Total # of Minutes Spent Total Time Spent with Patient: Total time spent is greater than 50% in coordination of care (as documented) at patient's floor/unit and/or counseling patient:
--- NOTE | 2019-08-05 18:31 | Hospitalist Progress Note ---
Date of Service August 05, 2019 Assessment & Plan (1) Shortness of breath: Ms. 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, polyclonal gammopathy, dysphagia, diabetes mellitus type 2, hyperlipidemia, depression, GERD, and restless leg syndrome who presented to [facility] due to a 3-day history of progressively worsening shortness of breath ED course: 1 L normal saline at 125 mL's per hour, 1 unit PRBC Dyspnea-improved now status post transfusion of 2 units, CT angiogram of the chest negative for PE but has small pleural effusions Anemia -Hemoglobin 6.9 on admission, was previously around 7.5-8.5 for many months -No signs or symptoms of bleeding -Fe studies consistent with chronic disease although were checked after tr ansfusion -Likely related to combination of anemia of chronic disease, cirrhosis, polyclonal gammopathy -has had several bone marrow aspirates without multiple myeloma, follows with Heme/Onc in [place] -transfused 1 unit prbcs in ED and came up to 8.2--> transfused another 1 unit on 08/04 for hgb drop again to 7.8 and continued GARCIA Hemoglobin now up and stable at 8.2 and shortness of breath improved -trend CBC -continue home iron supplementation Left sided pleural effusion -CXR and CTA Chest showed pulmonary vascular congestion and a left sided pleural effusion -unsure of chronicity of effusion given U/S in 06/2019 also showed an effusion -unsure how much this is contributing to presenting complaint of SOB -continue home diuretics on lasix and aldactone, did receive 1 dose of IV lasix with albumin on admission, but also received approx 1L NS which has since been stopped -no oxygen demand, patient saturating well on room air but still has dyspnea Pancytopenia -Related to liver cirrhosis -Platelets 74 and fairly stable, no indication for transfusion Anemia as above WBC count 3 Liver cirrhosis -felt to be secondary to MAE, however patient also reports it started after prolonged use of Cosentyx for her psoriatic arthritis (she is no longer on this medication) -no hx of alcohol abuse -has not yet seen hepatology - recommend confirming outpatient appt prior to d/c -is UTD on HCC screening as per GI -EGD performed in 06/2019 showed non bleeding grade 1 esophageal varices and portal hypertensive gastropathy -continue home carvedilol and PPI Hyperammonemia -Patient mentating well -Ammonia level 88.4 on arrival and then down to 77 -blood cx drawn x 2 and pending, however will defer abx for now as I do not suspect an infectious cause of her hyperammonemia -Continue home lactulose and rifaximin -titrate lactulose upwards if necessary -no need to follow NH3 HENRIQUE in the setting of CKD stage 3 -baseline creatinine is reportedly 1, however has been ranging from 1.2 - 2.4 on recent lab work -creatinine 1.44 on admission, then 1.3, then up to 1.6 after restarting home diuretics and did get IV contrast for CT-today continues to trend up to 2.3 -ok to continue home diuretics as per nephrology -follow BMP in the morning and if continues to worsen, will hold diuretics and hydrate History of type 2 diabetes mellitus -Patient was reportedly taken off medication due to improved glucose control -Hemoglobin A1c in 05/07 was 4.5% Restless leg syndrome -Continue home ropinirole Depression -Continue home venlafaxine Hypercholesterolemia -Continue home simvastatin -hold home aspirin due to previous gastritis, esophageal varices, and severe anemia History of Dysphagia -had a dilation of esophagus over ten years ago -barium swallow during previous hospitalization showed esophageal spasm -longstanding issue, however dysphagia greatly improved - pt reports increased appetite CODE STATUS: Full DVT prophylaxis: SCDs Disposition: continued stay (2) Iron deficiency anemia: (3) Hypertension: (4) Depression: (5) CHF (congestive heart failure): (6) Pulmonary hypertension: (7) Aortic stenosis: (8) Mitral regurgitation: (9) Peptic ulcer disease: (10) Dyslipidemia: (11) Diabetic peripheral neuropathy: (12) Diabetic nephropathy: (13) Liver cirrhosis: (14) Psoriatic arthritis: (15) Anemia of chronic disease: (16) GERD (gastroesophageal reflux disease): (17) DM type 2 (diabetes mellitus, type 2): (18) Acute kidney injury: (19) Chronic kidney disease, stage III (moderate): Subjective Patient reports her shortness of breath is much improved from previous. Leg swelling is about the same. Denies abdominal pain or nausea. She is making plenty of urine. Denies chest pain Review of Systems Review of Systems: All systems reviewed & are unremarkable except as noted in HPI & below Physical Exam Constitutional: WD/WN, vitals as above Eyes: + anicteric sclerae Neck: trachea midline, no thyromegaly Respiratory: normal respiratory effort; no labored breathing Auscultation: + diminished lung sounds (throughout); no crackles, no rhonchi and no wheezes Cardiovascular: Rate/Rhythm: regular rate and regular rhythm Heart Sounds: no murmur Extremities: + edema (1+ pitting edema legs bilat) Chest (Breasts): Chest: normal inspection of chest Gastrointestinal (Abdomen): normal bowel sounds, soft, nontender, no hepatos plenomegaly Musculoskeletal: Extremities: extremities normal to inspection; no cyanosis and no clubbing Skin: no rashes, warm and dry Neurologic: moves all extremities and awake; no focal motor deficits Psychiatric: A+Ox3, euthymic affect Lymphatic: no lymphedema Results & Data Vital Signs (Past 12 Hours) Vital Signs Temp Pulse Resp BP Pulse Ox 08/05/19 15:48 36.5 C 71 19 169/80 H 97 Laboratory Results Labs reviewed and creatinine trending upward to 2.04 and then later in the day 2.35 Total bilirubin 1.6, alkaline phosphatase 194, fecal occult blood testing negative Hemoglobin 80.2, platelets 74, WBC 3 PG Care Time/CCT Total # of Minutes Spent Total Time Spent with Patient: Total time spent is greater than 50% in coordination of care (as documented) at patient's floor/unit and/or counseling patient: (1) CHF (congestive heart failure) Heart failure chronicity: unspecified Heart failure type: unspecified Qualified Code(s): I50.9 - Heart failure, unspecified (2) Iron deficiency anemia Iron deficiency anemia type: other iron deficiency Qualified Code(s): D50.8 - Other iron deficiency anemias
[2019-08-05 19:15] LABS: BUN Creatinine Ratio 15.6 (10-20); Calcium 8.9 mg/dl (8.5-10.1); Creatinine Clr Calc Pharmacy 22.4 ml/min; Est GFR (African American) 24.7; Est GFR (Non-African American) 21.3; Potassium 4.4 mmol/L (3.5-5.1)
[2019-08-05] MEDS: VENLAFAXINE HCL XR 150 MG CAPXR PO SCH (20:24)
[2019-08-05] MEDS: ROPINIROLE HCL 1 MG TABLET PO SCH (20:26)
[2019-08-05] MEDS: SIMVASTATIN 20 MG TAB PO SCH (20:27)
[2019-08-06 06:04] LABS: Hematocrit (blood only) 25.5 % (37-47); Hemoglobin 8.1 g/dL (12.0-16.0); Mean Corpuscular Hemoglobin 29.6 pg (25-34); Mean Corpuscular Hgb Conc 31.8 g/dL (32-36); Mean Corpuscular Volume 93.1 fL (80-100); RDW Coefficient of Variation 17.3 % (11.5-14.5); RDW Standard Deviation 58.4 fL (36.4-46.3); Red Blood Count 2.74 M/uL (4.2-5.4); White Blood Count 3.82 K/uL (4.8-10.8)
[2019-08-06 06:30] LABS: Mean Platelet Volume 9.7 fL (7.4-10.4); Platelet Count 80 K/uL (130-400)
[2019-08-06 06:32] LABS: Basophils # (auto) 0.01 K/uL (0-0.2); Basophils % (auto) 0.3 %; Echinocytes 1+; Eosinophils # (auto) 0.18 K/uL (0-0.5); Eosinophils % (auto) 4.7 %; Giant Platelets 1+; Immature Granulocytes # (auto) 0.01 K/uL (0.00-0.02); Immature Granulocytes % (auto) 0.3 %; Lymphocytes # (auto) 0.93 K/uL (1.2-3.4); Lymphocytes % (auto) 24.3 %; Monocytes # (auto) 0.38 K/uL (0.11-0.59); Monocytes % (auto) 9.9 %; Neutrophils # (auto) 2.31 K/uL (1.4-6.5); Neutrophils % (auto) 60.5 %
[2019-08-06 06:36] LABS: Albumin Level 2.1 gm/dl (3.4-5.0); BUN Creatinine Ratio 15.6 (10-20); Calcium 8.4 mg/dl (8.5-10.1); Est GFR (African American) 22.9; Est GFR (Non-African American) 19.8; Potassium 4.3 mmol/L (3.5-5.1)
[2019-08-06 06:39] LABS: Albumin Globulin Ratio 0.4 (0.9-2); Bilirubin,Total 1.5 mg/dl (0.2-1); Globulin 5.5 gm/dl (2.5-4.0); Total Protein 7.6 gm/dl (6.4-8.2)
[2019-08-06] MEDS: SODIUM CHLORIDE 0.9% 1000ML 1,000 ML IV SCH ×2 (07:41→19:30)
[2019-08-06] MEDS: FERROUS SULFATE 325 MG TAB PO SCH (08:45)
[2019-08-06] MEDS: carvediloL 3.125 MG TAB PO SCH ×2 (08:45→20:24)
[2019-08-06] MEDS: FOLIC ACID 1 MG TAB PO SCH ×2 (08:46→20:26)
[2019-08-06] MEDS: RIFAXIMIN 550 MG TABLET PO SCH ×2 (08:46→20:27)
[2019-08-06] MEDS: LACTULOSE SYRUP 10 GM/15 ML BTL 473 ML PO SCH (08:47)
[2019-08-06] MEDS: PANTOprazole 40 MG TAB PO SCH ×2 (08:47→20:25)
--- NOTE | 2019-08-06 12:33 | Hospitalist Progress Note ---
Date of Service August 06, 2019 Assessment & Plan (1) Shortness of breath: Ms. 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, polyclonal gammopathy, dysphagia, diabetes mellitus type 2, hyperlipidemia, depression, GERD, and restless leg syndrome who presented to [facility] due to a 3-day history of progressively worsening shortness of breath ED course: 1 L normal saline at 125 mL's per hour, 1 unit PRBC Dyspnea-improved now status post transfusion of 2 units, CT angiogram of the chest negative for PE but has small pleural effusions likely from renal failure Anemia -Hemoglobin 6.9 on admission, was previously around 7.5-8.5 for many months -No signs or symptoms of bleeding -Fe studies consistent with chronic disease although were checked after transfusion -Likely related to combination of anemia of chronic disease, cirrhosis, polyclonal gammopathy -has had several bone marrow aspirates without multiple myeloma, follows with Heme/Onc in [place] -transfused 1 unit prbcs in ED and came up to 8.2--> transfused another 1 unit on 08/04 for hgb drop again to 7.8 and continued GARCIA Hemoglobin now up and stable at 8.1 and shortness of breath improved -trend CBC -continue home iron supplementation Left sided pleural effusion -CXR and CTA Chest showed pulmonary vascular congestion and a left sided pleural effusion -unsure of chronicity of effusion given U/S in 06/2019 also showed an effusion -unsure how much this is contributing to presenting complaint of SOB -Now placing diuretics on hold for acute kidney injury-typically on lasix and aldactone, did receive 1 dose of IV lasix with albumin on admission, but also received approx 1L NS which has since been stopped -no oxygen demand, patient saturating well on room air but still has dyspnea Pancytopenia -Related to liver cirrhosis -Platelets 80 and stable, no indication for transfusion Anemia as above WBC count 3 Liver cirrhosis -felt to be secondary to MAE, however patient also reports it started after prolonged use of Cosentyx for her psoriatic arthritis (she is no longer on this medication) -no hx of alcohol abuse -has not yet seen hepatology - recommend confirming outpatient appt prior to d/c -is UTD on HCC screening as per GI -EGD performed in 06/2019 showed non bleeding grade 1 esophageal varices and portal hypertensive gastropathy -continue home carvedilol and PPI -Holding Aldactone and Lasix today Hyperammonemia -Patient mentating well -Ammonia level 88.4 on arrival and then down to 77 -blood cx drawn x 2 and pending, however will defer abx for now as I do not suspect an infectious cause of her hyperammonemia -Continue home lactulose and rifaximin -titrate lactulose upwards if necessary -no need to follow NH3 HENRIQUE in the setting of CKD stage 3 -baseline creatinine is reportedly 1, however has been ranging from 1.2 - 2.4 on recent lab work -creatinine 1.44 on admission, then 1.3, then up to 1.6 after restarting home diuretics and did get IV contrast for CT-today continues to trend up to 2.5 -Appreciate nephrology consultation -follow BMP -Hold home Lasix and Aldactone -Start gentle IV fluids with normal saline at 80 mL's per hour -Cautiously watch volume status -Hypoalbuminemia is a complicating factor History of type 2 diabetes mellitus -Patient was reportedly taken off medication due to improved glucose control -Hemoglobin A1c in 05/07 was 4.5% -Not on sliding scale insulin here Restless leg syndrome -Continue home ropinirole Depression -Continue home venlafaxine Hypercholesterolemia -Continue home simvastatin -hold home aspirin due to previous gastritis, esophageal varices, and severe anemia History of Dysphagia -had a dilation of esophagus over ten years ago -barium swallow during previous hospitalization showed esophageal spasm -longstanding issue, however dysphagia greatly improved - pt reports increased appetite CODE STATUS: Full DVT prophylaxis: SCDs Disposition: continued stay (2) Iron deficiency anemia: (3) Hypertension: (4) Depression: (5) CHF (congestive heart failure): (6) Pulmonary hypertension: (7) Aortic stenosis: (8) Mitral regurgitation: (9) Peptic ulcer disease: (10) Dyslipidemia: (11) Diabetic peripheral neuropathy: (12) Diabetic nephropathy: (13) Liver cirrhosis: (14) Psoriatic arthritis: (15) Anemia of chronic disease: (16) GERD (gastroesophageal reflux disease): (17) DM type 2 (diabetes mellitus, type 2): (18) Acute kidney injury: (19) Chronic kidney disease, stage III (moderate): Subjective Patient feeling better today, less short of breath. Making plenty of urine. Denies chest pain. Minimal cough. Unfortunately, her renal function worsened. Review of Systems Review of Systems: All systems reviewed & are unremarkable except as noted in HPI & below Physical Exam Constitutional: WD/WN, vitals as above Eyes: + anicteric sclerae Neck: trachea midline, no thyromegaly Respiratory: normal respiratory effort; no labored breathing Auscultation: + diminished lung sounds (throughout, but improved); no crackles, no rhonchi and no wheezes Cardiovascular: Rate/Rhythm: regular rate and regular rhythm Heart Sounds: no murmur Extremities: + edema (1+ pitting edema legs bilat) Chest (Breasts): Chest: normal inspection of chest Gastrointestinal (Abdomen): normal bowel sounds, soft, nontender, no hepatosplenomegaly Musculoskeletal: Extremities: extremities normal to inspection; no cyanosis and no clubbing Skin: no rashes, warm and dry Neurologic: moves all extremities and awake; no focal motor deficits Psychiatric: A+Ox3, euthymic affect Lymphatic: no lymphedema Results & Data Vital Signs (Past 12 Hours) Vital Signs Temp Pulse Resp BP Pulse Ox 08/06/19 07:33 36.5 C 67 16 133/79 94 Laboratory Results Labs reviewed-bicarbonate up to 20, creatinine up to 2.5, BUN up to 39 Hemoglobin stable at 8.1, platelets improved to 80, WBC 3.8 Total bilirubin down to 1.5 Blood cultures remain negative PG Care Time/CCT Total # of Minutes Spent Total Time Spent with Patient: Total time spent is greater than 50% in coordination of care (as documented) at patient's floor/unit and/or counseling patient: (1) CHF (congestive heart failure) Heart failure chronicity: unspecified Heart failure type: unspecified Qualified Code(s): I50.9 - Heart failure, unspecified (2) Iron deficiency anemia Iron deficiency anemia type: other iron deficiency Qualified Code(s): D50.8 - Other iron deficiency anemias
[2019-08-06 13:13] LABS: Appearance Urine Clear (Clear); Bilirubin Urine Negative (Negative); Blood Urine 1+ (Negative); Color Urine Yellow; Epithelial Cell Urine Auto >30 /lpf (0-5); Glucose Urine UA Negative (Negative); Ketones Urine Negative (Negative); Leukocyte Esterase Urine Trace (Negative); Nitrite Urine Negative (Negative); Protein Urine Negative (Negative); Specific Gravity Urine 1.016 (1.000-1.030); Urobilinogen Urine Negative (Negative)
[2019-08-06 13:43] LABS: Bacteria Urine Automated 1+ (Negative)
--- NOTE | 2019-08-06 13:49 | Nephrology Progress Note ---
Date of Service August 06, 2019 Assessment & Plan (1) 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: ~2 loose bowel movements yesterday w lactulose. GI notes reviewed. (2) Hypertension: (3) Diabetic nephropathy: (4) Polyclonal gammopathy: (5) Anemia of chronic disease: Followed by Hematology as an outpatient. Blood counts have been stable following transfusion. Iron stores have been acceptable. (6) Acute kidney injury: Suspect there is a component of ATN. Repeat urine studies pending. Patient's volume status remains slightly hypervolemic. Diuretics have been held today. Angela was started on a low infusion of IV saline. I would suggest very cautious use of NSS. Metabolic profile will be repeated this afternoon. Avoid a significantly positive fluid balance. Blood pressure is acceptable. No s pecifically nephrotoxic medications were identified. NAGMA persists but patient denies significant diarrhea. Complicating factor in volume control remains hypoalbuminemia. (7) Chronic kidney disease, stage III (moderate): Baseline creatinine of approximately 1.3 mg/dL. Urine findings demonstrate persistent microscopic hematuria. Patient has not had previous evaluation for this. Would suggest she undergo urologic evaluation when she is discharged from the hospital. She does had persistent proteinuria. There has been a discrepancy between her urine analysis as well as the protein to creatinine ratio. Suspect this is related to her polyclonal gammopathy. However she has not had significant evidence of a monoclonal gammopathy of renal significance. I defer additional workup at this time. Subjective No acute events overnight. Angela felt well this morning. Appetite fair. No dyspnea. Activity tolerance stable though feeling slightly weak on her feet. Review of Systems Review of Systems: All systems reviewed & are unremarkable except as noted in HPI & below Physical Exam Constitutional: well developed and + obese; no acute distress and not ill appearing Eyes: + anicteric sclerae; no corneal abnormality ENMT: Mouth: no oral mucosal abnormality and oral mucous membranes not dry Neck: normal visual inspection and trachea midline Respiratory: normal respiratory effort Auscultation: lungs clear to auscultation bilaterally Cardiovascular: Rate/Rhythm: regular rate Heart Sounds: normal S1 and normal S2 Vessels: no JVD Extremities: + edema Musculoskeletal: Extremities: no cyanosis and no clubbing Skin: normal turgor; no lesions and no jaundice Neurologic: Motor/Sensory: no tremor and no asterixis Psychiatric: Orientation: alert and oriented x 3 Results & Data Vital Signs (Past 12 Hours) Vital Signs Temp Pulse Resp BP Pulse Ox 08/06/19 07:33 36.5 C 67 16 133/79 94 Laboratory Results Laboratory Results - last 24 hr 08/05/19 08/06/19 08/06/19 18:27 05:40 05:40 WBC 3.82 L RBC 2.74 L Hgb 8.1 L Hct 25.5 L MCV 93.1 MCH 29.6 MCHC 31.8 L RDW Std Deviation 58.4 H RDW Coeff of Karina 17.3 H Plt Count 80 L MPV 9.7 Immature Gran % (Auto) 0.3 Neut % (Auto) 60.5 Lymph % (Auto) 24.3 [place] % (Auto) 9.9 Eos % (Auto) 4.7 Baso % (Auto) 0.3 Immature Gran # (Auto) 0.01 Neut # (Auto) 2.31 Lymph # (Auto) 0.93 L [place] # (Auto) 0.38 Eos # (Auto) 0.18 Baso # (Auto) 0.01 Giant Platelets 1+ Echinocytes 1+ Sodium 140 140 Potassium 4.4 4.3 Chloride 114 H 116 H Carbon Dioxide 18 L 20 L Anion Gap 8.0 4.0 BUN 37 H 39 H Creatinine 2.35 H D 2.50 H Est Cr Clr Drug Dosing 22.4 21.0 Est GFR ( Amer) 24.7 22.9 Est GFR (Non-Af Amer) 21.3 19.8 BUN/Creatinine Ratio 15.6 15.6 Glucose 167 H 100 H Calcium 8.9 8.4 L Total Bilirubin 1.5 H AST 27 ALT 18 Alkaline Phosphatase 201 H Total Protein 7.6 Albumin 2.1 L Globulin 5.5 H Albumin/Globulin Ratio 0.4 L Urine Color Urine Appearance Urine pH Ur Specific [place] Urine Protein Urine Glucose (UA) Urine Ketones Urine Blood Urine Nitrite Urine Bilirubin Urine Urobilinogen Ur Leukocyte Esterase Urine WBC (Auto) Urine RBC (Auto) U Hyaline Cast (Auto) U Epithel Cells (Auto) Urine Bacteria (Auto) Ur Random Sodium 08/06/19 08/06/19 12:41 12:41 WBC RBC Hgb Hct MCV MCH MCHC RDW Std Deviation RDW Coeff of Karina Plt Count MPV Immature Gran % (Auto) Neut % (Auto) Lymph % (Auto) [place] % (Auto) Eos % (Auto) Baso % (Auto) Immature Gran # (Auto) Neut # (Auto) Lymph # (Auto) [place] # (Auto) Eos # (Auto) Baso # (Auto) Giant Platelets Echinocytes Sodium Potassium Chloride Carbon Dioxide Anion Gap BUN Creatinine Est Cr Clr Drug Dosing Est GFR ( Amer) Est GFR (Non-Af Amer) BUN/Creatinine Ratio Glucose Calcium Total Bilirubin AST ALT Alkaline Phosphatase Total Protein Albumin Globulin Albumin/Globulin Ratio Urine Color Yellow Urine Appearance Clear Urine pH 5.0 Ur Specific [place] 1.016 Urine Protein Negative Urine Glucose (UA) Negative Urine Ketones Negative Urine Blood 1+ H Urine Nitrite Negative Urine Bilirubin Negative Urine Urobilinogen Negative Ur Leukocyte Esterase Trace H Urine WBC (Auto) 1-5 Urine RBC (Auto) 5-10 H U Hyaline Cast (Auto) 1-5 U Epithel Cells (Auto) >30 H Urine Bacteria (Auto) 1+ H Ur Random Sodium Pending PG Care Time/CCT Total # of Minutes Spent Total Time Spent with Patient: Total time spent is greater than 50% in coordination of care (as documented) at patient's floor/unit and/or counseling patient:
[2019-08-06 18:12] LABS: BUN Creatinine Ratio 15.5 (10-20); Calcium 8.7 mg/dl (8.5-10.1); Creatinine Clr Calc Pharmacy 19.9 ml/min; Est GFR (African American) 21.5; Est GFR (Non-African American) 18.5; Potassium 4.3 mmol/L (3.5-5.1)
[2019-08-06] MEDS: SIMVASTATIN 20 MG TAB PO SCH (20:26)
[2019-08-06] MEDS: ROPINIROLE HCL 1 MG TABLET PO SCH (20:26)
[2019-08-06] MEDS: VENLAFAXINE HCL XR 150 MG CAPXR PO SCH (20:26)
[2019-08-07] MEDS: SODIUM CHLORIDE 0.9% 1000ML 1,000 ML IV SCH (06:38)
[2019-08-07 06:39] LABS: Albumin Level 2.1 gm/dl (3.4-5.0); BUN Creatinine Ratio 15.5 (10-20); Calcium 8.2 mg/dl (8.5-10.1); Creatinine Clr Calc Pharmacy 20.2 ml/min; Est GFR (African American) 21.9; Est GFR (Non-African American) 18.9; Potassium 4.3 mmol/L (3.5-5.1)
[2019-08-07 06:40] LABS: Phosphorus 4.6 mg/dl (2.5-4.9)
[2019-08-07] MEDS: carvediloL 3.125 MG TAB PO SCH ×2 (10:25→21:30)
[2019-08-07] MEDS: LACTULOSE SYRUP 10 GM/15 ML BTL 473 ML PO SCH (10:25)
[2019-08-07] MEDS: PANTOprazole 40 MG TAB PO SCH ×2 (10:26→21:30)
[2019-08-07] MEDS: FOLIC ACID 1 MG TAB PO SCH ×2 (10:26→21:30)
[2019-08-07] MEDS: FERROUS SULFATE 325 MG TAB PO SCH (10:26)
--- NOTE | 2019-08-07 10:26 | Nephrology Progress Note ---
Date of Service August 07, 2019 Assessment & Plan (1) 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: (2) Hypertension: (3) Diabetic nephropathy: (4) Polyclonal gammopathy: (5) Anemia of chronic disease: Followed by Hematology as an outpatient. Blood counts have been stable following transfusion. Iron stores have been acceptable. (6) Acute kidney injury: Consistent with ATN. Creatinine now plateaued. Volume status remains slightly hypervolemic. Diuretics have been held. I would resume as needed to encourage even to slightly negative fluid balance. I would suggest stopping IV saline at this time. Metabolic profile will be repeated tomorrow AM. Blood pressure is acceptable. No specifically nephrotoxic medications were identified. NAGMA persists but patient denies significant diarrhea. Complicating factor in volume control remains hypoalbuminemia. (7) Chronic kidney disease, stage III (moderate): Baseline creatinine of approximately 1.3 mg/dL. Urine findings demonstrate persistent microscopic hematuria. Patient has not had previous evaluation for this. Would suggest she undergo urologic evaluation when she is discharged from the hospital. She does had persistent proteinuria. There has been a discrepancy between her urine analysis as well as the protein to creatinine ratio. Suspect this is related to her polyclonal gammopathy. However she has not had significant evidence of a monoclonal gammopathy of renal significance. I defer additional workup at this time. Subjective No acute events overnight. Remains weak but activity tolerance is fair. Appetite slightly improved. No dyspnea. Review of Systems Review of Systems: All systems reviewed & are unremarkable except as noted in HPI & below Physical Exam Constitutional: well developed and + obese; no acute distress Eyes: + anicteric sclerae; no corneal abnormality ENMT: Mouth: no oral mucosal abnormality and oral mucous membranes not dry Neck: normal visual inspection and trachea midline Respiratory: normal respiratory effort Auscultation: lungs clear to auscultation bilaterally Cardiovascular: Rate/Rhythm: regular rate Heart Sounds: normal S1 and normal S2 Vessels: no JVD Extremities: + edema Musculoskeletal: Extremities: no cyanosis and no clubbing Skin: normal turgor; no lesions and no jaundice Neurologic: Motor/Sensory: no tremor and no asterixis Psychiatric: Orientation: alert and oriented x 3 Results & Data Vital Signs (Past 12 Hours) Vital Signs Temp Pulse Resp BP Pulse Ox 08/07/19 07:33 36.6 C 70 20 160/78 H 93 08/06/19 23:34 36.5 C 71 20 120/68 92 Laboratory Results Laboratory Results - last 24 hr 08/06/19 08/06/19 08/06/19 12:41 12:41 17:38 Sodium 141 Potassium 4.3 Chloride 114 H Carbon Dioxide 19 L Anion Gap 7.0 BUN 41 H Creatinine 2.64 H Est Cr Clr Drug Dosing 19.9 Est GFR ( Amer) 21.5 Est GFR (Non-Af Amer) 18.5 BUN/Creatinine Ratio 15.5 Glucose 155 H Calcium 8.7 Phosphorus Albumin Urine Color Yellow Urine Appearance Clear Urine pH 5.0 Ur Specific [place] 1.016 Urine Protein Negative Urine Glucose (UA) Negative Urine Ketones Negative Urine Blood 1+ H Urine Nitrite Negative Urine Bilirubin Negative Urine Urobilinogen Negative Ur Leukocyte Esterase Trace H Urine WBC (Auto) 1-5 Urine RBC (Auto) 5-10 H U Hyaline Cast (Auto) 1-5 U Epithel Cells (Auto) >30 H Urine Bacteria (Auto) 1+ H Ur Random Sodium 80 08/07/19 05:25 Sodium 142 Potassium 4.3 Chloride 117 H Carbon Dioxide 19 L Anion Gap 6.0 BUN 40 H Creatinine 2.60 H Est Cr Clr Drug Dosing 20.2 Est GFR ( Amer) 21.9 Est GFR (Non-Af Amer) 18.9 BUN/Creatinine Ratio 15.5 Glucose 78 Calcium 8.2 L Phosphorus 4.6 Albumin 2.1 L Urine Color Urine Appearance Urine pH Ur Specific [place] Urine Protein Urine Glucose (UA) Urine Ketones Urine Blood Urine Nitrite Urine Bilirubin Urine Urobilinogen Ur Leukocyte Esterase Urine WBC (Auto) Urine RBC (Auto) U Hyaline Cast (Auto) U Epithel Cells (Auto) Urine Bacteria (Auto) Ur Random Sodium PG Care Time/CCT Total # of Minutes Spent Total Time Spent with Patient: Total time spent is greater than 50% in coordination of care (as documented) at patient's floor/unit and/or counseling patient:
[2019-08-07] MEDS: RIFAXIMIN 550 MG TABLET PO SCH ×2 (10:27→21:29)
[2019-08-07] MEDS: FUROSEMIDE 40 MG TAB PO SCH (16:54)
[2019-08-07] MEDS: ACETAMINOPHEN 325 MG TAB PO PRN (16:55)
--- NOTE | 2019-08-07 20:03 | Hospitalist Progress Note ---
Date of Service August 07, 2019 Assessment & Plan (1) Shortness of breath: Ms. 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, polyclonal gammopathy, dysphagia, diabetes mellitus type 2, hyperlipidemia, depression, GERD, and restless leg syndrome who presented to [facility] due to a 3-day history of progressively worsening shortness of breath ED course: 1 L normal saline at 125 mL's per hour, 1 unit PRBC Dyspnea-improved now status post transfusion of 2 units, CT angiogram of the chest negative for PE but has small pleural effusions likely from renal failure Anemia -Hemoglobin 6.9 on admission, was previously around 7.5-8.5 for many months -No signs or symptoms of bleeding -Fe studies consistent with chronic disease although were checked after transfusion -Likely related to combination of anemia of chronic disease, cirrhosis, polyclonal gammopathy -has had several bone marrow aspirates without multiple myeloma, follows with Heme/Onc in [place] -transfused 1 unit prbcs in ED and came up to 8.2--> transfused another 1 unit on 08/04 for hgb drop again to 7.8 and continued GARCIA Hemoglobin now up and stable at 8.1 and shortness of breath improved -trend CBC in the morning transfuse for hemoglobin less than 8 -continue home iron supplementation Left sided pleural effusion -CXR and CTA Chest showed pulmonary vascular congestion and a left sided pleural effusion -unsure of chronicity of effusion given U/S in 06/2019 also showed an effusion -unsure how much this is contributing to presenting complaint of SOB -Now placed diuretics on hold for acute kidney injury-typically on lasix and aldactone, did receive 1 dose of IV lasix with albumin on admission, but also received approx 1L NS which has since been stopped -no oxygen demand, patient saturating well on room air but still has some element of dyspnea Pancytopenia -Related to liver cirrhosis -Platelets 80 and stable, no indication for transfusion Anemia as above WBC count 3 Liver cirrhosis -felt to be secondary to MAE, however patient also reports it started after prolonged use of Cosentyx for her psoriatic arthritis (she is no longer on this medication) -no hx of alcohol abuse -has not yet seen hepatology - recommend confirming outpatient appt prior to d/c -is UTD on HCC screening as per GI -EGD performed in 06/2019 showed non bleeding grade 1 esophageal varices and portal hypertensive gastropathy -continue home carvedilol and PPI -Holding Aldactone and Lasix today Hyperammonemia -Patient mentating well -Ammonia level 88.4 on arrival and then down to 77 -blood cx drawn x 2 and pending, however will defer abx for now as I do not susp ect an infectious cause of her hyperammonemia -Continue home lactulose and rifaximin -titrate lactulose upwards if necessary -no need to follow NH3 HENRIQUE in the setting of CKD stage 3 -baseline creatinine is reportedly 1, however has been ranging from 1.2 - 2.4 on recent lab work -creatinine 1.44 on admission, then 1.3, then up to 1.6 after restarting home diuretics and did get IV contrast for CT-trended up to 2.64 and is now back down to 2.6 with holding diuretics -Appreciate nephrology consultation -follow BMP in the morning -Continue to hold home Lasix and Aldactone -DC IV fluids -Cautiously watch volume status -Hypoalbuminemia is a complicating factor History of type 2 diabetes mellitus -Patient was reportedly taken off medication due to improved glucose control -Hemoglobin A1c in 05/07 was 4.5% -Not on sliding scale insulin here Restless leg syndrome -Continue home ropinirole Depression -Continue home venlafaxine Hypercholesterolemia -Continue home simvastatin -hold home aspirin due to previous gastritis, esophageal varices, and severe anemia History of Dysphagia -had a dilation of esophagus over ten years ago -barium swallow during previous hospitalization showed esophageal spasm -longstanding issue, however dysphagia greatly improved - pt reports increased appetite CODE STATUS: Full DVT prophylaxis: SCDs Disposition: continued stay (2) Iron deficiency anemia: (3) Hypertension: (4) Depression: (5) CHF (congestive heart failure): (6) Pulmonary hypertension: (7) Aortic stenosis: (8) Mitral regurgitation: (9) Peptic ulcer disease: (10) Dyslipidemia: (11) Diabetic peripheral neuropathy: (12) Diabetic nephropathy: (13) Liver cirrhosis: (14) Psoriatic arthritis: (15) Anemia of chronic disease: (16) GERD (gastroesophageal reflux disease): (17) DM type 2 (diabetes mellitus, type 2): (18) Acute kidney injury: (19) Chronic kidney disease, stage III (moderate): Subjective Patient feeling less short of breath was able to walk in the halls today, however still feels short of breath with more exertion such as getting in and out of bed. No bleeding from anywhere. Is making urine. Denies chest pain or abdominal pain. Review of Systems Review of Systems: All systems reviewed & are unremarkable except as noted in HPI & below Physical Exam Constitutional: WD/WN, vitals as above Eyes: + anicteric sclerae Neck: trachea midline, no thyromegaly Respiratory: normal respiratory effort; no labored breathing Auscultation: + diminished lung sounds (throughout, but improved); no crackles, no rhonchi and no wheezes Cardiovascular: Rate/Rhythm: regular rate and regular rhythm Heart Sounds: no murmur Extremities: + edema (1+ pitting edema legs bilat) Chest (Breasts): Chest: normal inspection of chest Gastrointestinal (Abdomen): normal bowel sounds, soft, nontender, no hepatosplenomegaly Musculoskeletal: Extremities: extremities normal to inspection; no cyanosis and no clubbing Skin: no rashes, warm and dry Neurologic: moves all extremities and awake; no focal motor deficits Psychiatric: A+Ox3, euthymic affect Lymphatic: no lymphedema Results & Data Laboratory Results Labs reviewed, creatinine down to 2.60, albumin 2.1 PG Care Time/CCT Total # of Minutes Spent Total Time Spent with Patient: Total time spent is greater than 50% in coordination of care (as documented) at patient's floor/unit and/or counseling patient: (1) CHF (congestive heart failure) Heart failure chronicity: unspecified Heart failure type: unspecified Qualified Code(s): I50.9 - Heart failure, unspecified (2) Iron deficiency anemia Iron deficiency anemia type: other iron deficiency Qualified Code(s): D50.8 - Other iron deficiency anemias
[2019-08-07] MEDS: SIMVASTATIN 20 MG TAB PO SCH (21:29)
[2019-08-07] MEDS: VENLAFAXINE HCL XR 150 MG CAPXR PO SCH (21:30)
[2019-08-07] MEDS: ROPINIROLE HCL 1 MG TABLET PO SCH (21:30)
[2019-08-08 06:07] LABS: Hematocrit (blood only) 24.1 % (37-47); Hemoglobin 7.8 g/dL (12.0-16.0); Mean Corpuscular Hemoglobin 29.8 pg (25-34); Mean Corpuscular Hgb Conc 32.4 g/dL (32-36); RDW Coefficient of Variation 17.1 % (11.5-14.5); RDW Standard Deviation 57.3 fL (36.4-46.3); Red Blood Count 2.62 M/uL (4.2-5.4); White Blood Count 3.51 K/uL (4.8-10.8)
[2019-08-08 06:13] LABS: Mean Platelet Volume 9.6 fL (7.4-10.4); Platelet Count 73 K/uL (130-400)
[2019-08-08 06:38] LABS: Basophils # (auto) 0.02 K/uL (0-0.2); Basophils % (auto) 0.6 %; Eosinophils # (auto) 0.14 K/uL (0-0.5); Immature Granulocytes # (auto) 0.01 K/uL (0.00-0.02); Immature Granulocytes % (auto) 0.3 %; Lymphocytes # (auto) 0.88 K/uL (1.2-3.4); Lymphocytes % (auto) 25.1 %; Monocytes # (auto) 0.44 K/uL (0.11-0.59); Monocytes % (auto) 12.5 %; Neutrophils # (auto) 2.02 K/uL (1.4-6.5); Neutrophils % (auto) 57.5 %; RBC Morphology Unremarkable
[2019-08-08 06:42] LABS: BUN Creatinine Ratio 17.7 (10-20); Calcium 8.1 mg/dl (8.5-10.1); Creatinine Clr Calc Pharmacy 22.9 ml/min; Est GFR (African American) 24.6; Est GFR (Non-African American) 21.2; Potassium 4.1 mmol/L (3.5-5.1)
[2019-08-08] MEDS ORDERED: SODIUM CHLORIDE 0.9% 250 ML IV PRN (07:42)
[2019-08-08] MEDS: carvediloL 3.125 MG TAB PO SCH (08:55)
[2019-08-08] MEDS: FOLIC ACID 1 MG TAB PO SCH ×2 (08:55→20:26)
[2019-08-08] MEDS: FUROSEMIDE 40 MG TAB PO SCH ×2 (08:55→16:21)
[2019-08-08] MEDS: RIFAXIMIN 550 MG TABLET PO SCH ×2 (08:55→20:28)
[2019-08-08] MEDS: LACTULOSE SYRUP 10 GM/15 ML BTL 473 ML PO SCH (08:55)
[2019-08-08] MEDS: PANTOprazole 40 MG TAB PO SCH ×2 (08:55→20:26)
[2019-08-08] MEDS: FERROUS SULFATE 325 MG TAB PO SCH (08:56)
[2019-08-08] MEDS ORDERED: SPIRONOLACTONE 25 MG TAB PO ONE (10:26)
--- NOTE | 2019-08-08 11:47 | Nephrology Progress Note ---
Date of Service August 08, 2019 Assessment & Plan (1) 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: (2) Hypertension: (3) Diabetic nephropathy: (4) Polyclonal gammopathy: (5) Anemia of chronic disease: Followed by Hematology as an outpatient. Additional 1 u PRBC provided today for Hgb <8. Angela continues to have GARCIA. (6) Acute kidney injury: Consistent with ATN. Improving. Home diuretics were restarted today. IMetabolic profile will be repeated tomorrow AM. Blood pressure is acceptable. No specifically nephrotoxic medications were identified. (7) Chronic kidney disease, stage III (moderate): Baseline creatinine of approximately 1.3 mg/dL. Urine findings demonstrate persistent microscopic hematuria and I have suggested she undergo urologic evaluation when she is discharged from the hospital. She does had persistent proteinuria. There has been a discrepancy between her urine analysis as well as the protein to creatinine ratio. Suspect this is related to her polyclonal gammopathy. However she has not had significant evidence of a monoclonal gammopathy of renal significance. HENRIQUE is improving. Subjective No acute events overnight. Remains weak but activity tolerance is fair. Breathing comfortably at rest. No chest pain or palpitations. Review of Systems Review of Systems: All systems reviewed & are unremarkable except as noted in HPI & below Physical Exam Constitutional: well developed and + obese; no acute distress Eyes: + anicteric sclerae; no corneal abnormality ENMT: Mouth: no oral mucosal abnormality and oral mucous membranes not dry Neck: normal visual inspection and trachea midline Respiratory: normal respiratory effort Auscultation: lungs clear to auscultation bilaterally Cardiovascular: Rate/Rhythm: regular rate Heart Sounds: normal S1 and normal S2 Vessels: no JVD Extremities: + edema Musculoskeletal: Extremities: no cyanosis and no clubbing Skin: normal turgor; no lesions and no jaundice Neurologic: Motor/Sensory: no tremor and no asterixis Psychiatric: Orientation: alert and oriented x 3 Results & Data Vital Signs (Past 12 Hours) Vital Signs Temp Pulse Pulse Resp BP BP Pulse Ox 08/08/19 11:15 36.6 C 77 18 174/79 H 94 08/08/19 10:45 36.7 C 76 18 166/75 H 94 08/08/19 10:15 36.6 C 75 18 174/84 H 94 08/08/19 10:00 36.7 C 74 18 177/91 H 93 08/08/19 09:40 36.8 C 76 18 180/85 H 08/08/19 07:23 36.7 C 69 18 143/69 H 94 08/08/19 05:34 70 22 152/76 H 96 08/07/19 23:59 36.5 C 73 20 162/79 H 95 Laboratory Results Laboratory Results - last 24 hr 08/02/19 08/08/19 08/08/19 23:24 05:27 05:27 WBC 3.51 L RBC 2.62 L Hgb 7.8 L Hct 24.1 L MCV 92.0 MCH 29.8 MCHC 32.4 RDW Std Deviation 57.3 H RDW Coeff of Karina 17.1 H Plt Count 73 L MPV 9.6 Immature Gran % (Auto) 0.3 Neut % (Auto) 57.5 Lymph % (Auto) 25.1 [place] % (Auto) 12.5 Eos % (Auto) 4.0 Baso % (Auto) 0.6 Immature Gran # (Auto) 0.01 Neut # (Auto) 2.02 Lymph # (Auto) 0.88 L [place] # (Auto) 0.44 Eos # (Auto) 0.14 Baso # (Auto) 0.02 RBC Morphology Unremarkable Sodium 142 Potassium 4.1 Chloride 118 H Carbon Dioxide 19 L Anion Gap 5.0 BUN 42 H Creatinine 2.36 H Est Cr Clr Drug Dosing 22.9 Est GFR ( Amer) 24.6 Est GFR (Non-Af Amer) 21.2 BUN/Creatinine Ratio 17.7 Glucose 95 Calcium 8.1 L Blood Type Antibody Screen Crossmatch See Detail 08/08/19 07:55 WBC RBC Hgb Hct MCV MCH MCHC RDW Std Deviation RDW Coeff of Karina Plt Count MPV Immature Gran % (Auto) Neut % (Auto) Lymph % (Auto) [place] % (Auto) Eos % (Auto) Baso % (Auto) Immature Gran # (Auto) Neut # (Auto) Lymph # (Auto) [place] # (Auto) Eos # (Auto) Baso # (Auto) RBC Morphology Sodium Potassium Chloride Carbon Dioxide Anion Gap BUN Creatinine Est Cr Clr Drug Dosing Est GFR ( Amer) Est GFR (Non-Af Amer) BUN/Creatinine Ratio Glucose Calcium Blood Type O Positive Antibody Screen NEGATIVE Crossmatch See Detail PG Care Time/CCT Total # of Minutes Spent Total Time Spent with Patient: Total time spent is greater than 50% in coordination of care (as documented) at patient's floor/unit and/or counseling patient:
[2019-08-08] MEDS ORDERED: HydrALAZINE HCL 20 MG/ML VIAL IV STA (13:05)
[2019-08-08] MEDS: ACETAMINOPHEN 325 MG TAB PO PRN (13:21)
--- NOTE | 2019-08-08 17:16 | Hospitalist Progress Note ---
Date of Service August 08, 2019 Assessment & Plan (1) Shortness of breath: Ms. 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, polyclonal gammopathy, dysphagia, diabetes mellitus type 2, hyperlipidemia, depression, GERD, and restless leg syndrome who presented to [facility] due to a 3-day history of progressively worsening shortness of breath ED course: 1 L normal saline at 125 mL's per hour, 1 unit PRBC Dyspnea-improved now status post transfusion of 3 units PRBCs, CT angiogram of the chest negative for PE but has small pleural effusions likely from renal failure Anemia -Hemoglobin 6.9 on admission, was previously around 7.5-8.5 for many months -No signs or symptoms of bleeding -Fe studies consistent with chronic disease although were checked after transfusion -Likely related to combination of anemia of chronic disease, cirrhosis, polyclonal gammopathy -has had several bone marrow aspirates without multiple myeloma, follows with Heme/Onc in [place] -transfused 1 unit prbcs in ED and came up to 8.2--> transfused another 1 unit on 08/04 for hgb drop again to 7.8 and continued GARCIA Hemoglobin now back down again to 7.8--> transfused a 3rd unit on 08/08 and now SOB resolved -check CBC in the morning -continue home iron supplementation -recommend close f/u with Heme/Onc--> pt and request for all her s pecialists to be in one place at [facility]-will request new patient appointment through our Nurse Navigator HTN-BPs significantly elevated today -restarted home diuretics -increase Coreg to 6.5mg po bid Left sided pleural effusion -CXR and CTA Chest showed pulmonary vascular congestion and a left sided pleural effusion -unsure of chronicity of effusion given U/S in 06/2019 also showed an effusion -unsure how much this is contributing to presenting complaint of SOB -restarted diuretics which were on hold for acute kidney injury-continue lasix and aldactone, did receive 1 dose of IV lasix with albumin on admission -no oxygen demand, patient saturating well on room air and improved dyspnea Pancytopenia -Related to liver cirrhosis -Platelets 73 and stable, no indication for transfusion Anemia as above WBC count 3.5 and stable Liver cirrhosis -felt to be secondary to MAE, however patient also reports it started after prolonged use of Cosentyx for her psoriatic arthritis (she is no longer on this medication) -no hx of alcohol abuse -has seen hepatology at [facility] but requests transfer of care to [facility]--> will ask Nurse Navigator to arrange -is UTD on HCC screening as per GI -EGD performed in 06/2019 showed non bleeding grade 1 esophageal varices and portal hypertensive gastropathy -continue home carvedilol and PPI -restarting Aldactone and Lasix today Hyperammonemia -Patient mentating well -Ammonia level 88.4 on arrival and then down to 77 -blood cx drawn x 2 and no growth -Continue home lactulose and rifaximin -titrate lactulose upwards if necessary -no need to follow NH3 HENRIQUE in the setting of CKD stage 3 -baseline creatinine is reportedly 1, however has been ranging from 1.2 - 2.4 on recent lab work -creatinine 1.44 on admission, then 1.3, then up to 1.6 after restarting home diuretics and did get IV contrast for CT-trended up to 2.64 and is now back down to 2.3 with holding diuretics -Appreciate nephrology consultation -follow BMP in the morning -restart home Lasix and Aldactone -DCd IV fluids -Cautiously watch volume status -Hypoalbuminemia is a complicating factor History of type 2 diabetes mellitus -Patient was reportedly taken off medication due to improved glucose control -Hemoglobin A1c in 05/07 was 4.5% -Not on sliding scale insulin here Restless leg syndrome -Continue home ropinirole Depression -Continue home venlafaxine Hypercholesterolemia -Continue home simvastatin -hold home aspirin due to previous gastritis, esophageal varices, and severe anemia History of Dysphagia -had a dilation of esophagus over ten years ago -barium swallow during previous hospitalization showed esophageal spasm -longstanding issue, however dysphagia greatly improved - pt reports increased appetite CODE STATUS: Full DVT prophylaxis: SCDs Disposition: continued stay (2) Iron deficiency anemia: (3) Hypertension: (4) Depression: (5) CHF (congestive heart failure): (6) Pulmonary hypertension: (7) Aortic stenosis: (8) Mitral regurgitation: (9) Peptic ulcer disease: (10) Dyslipidemia: (11) Diabetic peripheral neuropathy: (12) Diabetic nephropathy: (13) Liver cirrhosis: (14) Psoriatic arthritis: (15) Anemia of chronic disease: (16) GERD (gastroesophageal reflux disease): (17) DM type 2 (diabetes mellitus, type 2): (18) Acute kidney injury: (19) Chronic kidney disease, stage III (moderate): Subjective Pt reports feeling well today, no longer SOB at all since getting her PRBCs this AM. Is making urine. No chest pain or abd pain. Her and son are at the bedside and provide a lot more of her history than known previously. They report she has had multiple falls and difficulty with falling backwards. We spent quite a bit of time discussing her conditions Review of Systems Review of Systems: All systems reviewed & are unremarkable except as noted in HPI & below Physical Exam Constitutional: WD/WN, vitals as above Eyes: + anicteric sclerae Neck: trachea midline, no thyromegaly Respiratory: normal respiratory effort; no labored breathing Auscultation: + diminished lung sounds (throughout, but improved) and + crackles (at bases); no rhonchi and no wheezes Cardiovascular: Rate/Rhythm: regular rate and regular rhythm Heart Sounds: no murmur Extremities: + edema (1+ pitting edema legs bilat) Chest (Breasts): Chest: normal inspection of chest Gastrointestinal (Abdomen): normal bowel sounds, soft, nontender, no hepatosplenomegaly Musculoskeletal: Extremities: extremities normal to inspection; no cyanosis and no clubbing Skin: no rashes, warm and dry Neurologic: moves all extremities and awake; no focal motor deficits Psychiatric: A+Ox3, euthymic affect Lymphatic: no lymphedema Results & Data Vital Signs (Past 12 Hours) Vital Signs Temp Pulse Pulse Resp BP BP BP 08/08/19 15:53 36.5 C 69 18 179/92 H 08/08/19 13:15 36.6 C 76 20 185/104 H 08/08/19 12:15 36.6 C 74 18 182/91 H 08/08/19 11:15 36.6 C 77 18 174/79 H 08/08/19 10:45 36.7 C 76 18 166/75 H 08/08/19 10:15 36.6 C 75 18 174/84 H 08/08/19 10:00 36.7 C 74 18 177/91 H 08/08/19 09:40 36.8 C 76 18 180/85 H 08/08/19 07:23 36.7 C 69 18 143/69 H 08/08/19 05:34 70 22 152/76 H Pulse Ox 08/08/19 15:53 98 08/08/19 13:15 96 08/08/19 12:15 94 08/08/19 11:15 94 08/08/19 10:45 94 08/08/19 10:15 94 08/08/19 10:00 93 08/08/19 09:40 08/08/19 07:23 94 08/08/19 05:34 96 Laboratory Results Labs reviewed Electrical Equipment [employer] improving Hgb down to 7.8 PG Care Time/CCT Total # of Minutes Spent Total Time Spent with Patient: Total time spent is greater than 50% in coordination of care (as documented) at patient's floor/unit and/or counseling patient: (1) CHF (congestive heart failure) Heart failure chronicity: unspecified Heart failure type: unspecified Qualified Code(s): I50.9 - Heart failure, unspecified (2) Iron deficiency anemia Iron deficiency anemia type: other iron deficiency Qualified Code(s): D50.8 - Other iron deficiency anemias
[2019-08-08] MEDS: carvediloL 6.25 MG TAB PO SCH (20:25)
[2019-08-08] MEDS: VENLAFAXINE HCL XR 150 MG CAPXR PO SCH (20:25)
[2019-08-08] MEDS: ROPINIROLE HCL 1 MG TABLET PO SCH (20:27)
[2019-08-08] MEDS: SIMVASTATIN 20 MG TAB PO SCH (20:28)
[2019-08-09 06:03] LABS: Hematocrit (blood only) 26.7 % (37-47); Hemoglobin 8.7 g/dL (12.0-16.0); Mean Corpuscular Hemoglobin 29.9 pg (25-34); Mean Corpuscular Hgb Conc 32.6 g/dL (32-36); Mean Corpuscular Volume 91.8 fL (80-100); RDW Coefficient of Variation 16.3 % (11.5-14.5); RDW Standard Deviation 54.5 fL (36.4-46.3); Red Blood Count 2.91 M/uL (4.2-5.4); White Blood Count 3.77 K/uL (4.8-10.8)
[2019-08-09 06:07] LABS: Mean Platelet Volume 9.6 fL (7.4-10.4); Platelet Count 71 K/uL (130-400)
[2019-08-09 06:11] LABS: INR 1.4 (0.9-1.1); Prothrombin Time 14.3 Seconds (9.0-12.0)
[2019-08-09 06:36] LABS: Albumin Level 2.1 gm/dl (3.4-5.0); BUN Creatinine Ratio 17.3 (10-20); Calcium 8.5 mg/dl (8.5-10.1); Creatinine Clr Calc Pharmacy 25.7 ml/min; Est GFR (African American) 28.2; Est GFR (Non-African American) 24.3; Magnesium 1.9 mg/dl (1.8-2.4); Potassium 3.8 mmol/L (3.5-5.1)
[2019-08-09 06:39] LABS: Bilirubin Direct 0.9 mg/dl (0-0.2); Bilirubin,Total 2.1 mg/dl (0.2-1); Total Protein 7.6 gm/dl (6.4-8.2)
[2019-08-09 06:54] LABS: Basophils # (auto) 0.01 K/uL (0-0.2); Basophils % (auto) 0.3 %; Eosinophils # (auto) 0.18 K/uL (0-0.5); Eosinophils % (auto) 4.8 %; Immature Granulocytes # (auto) 0.01 K/uL (0.00-0.02); Immature Granulocytes % (auto) 0.3 %; Lymphocytes # (auto) 0.86 K/uL (1.2-3.4); Lymphocytes % (auto) 22.8 %; Monocytes # (auto) 0.35 K/uL (0.11-0.59); Monocytes % (auto) 9.3 %; Neutrophils # (auto) 2.36 K/uL (1.4-6.5); Neutrophils % (auto) 62.5 %
[2019-08-09] MEDS: FUROSEMIDE 40 MG TAB PO SCH (08:01)
[2019-08-09] MEDS: FOLIC ACID 1 MG TAB PO SCH (08:01)
[2019-08-09] MEDS: PANTOprazole 40 MG TAB PO SCH (08:01)
[2019-08-09] MEDS: SPIRONOLACTONE 25 MG TAB PO SCH (08:01)
[2019-08-09] MEDS: carvediloL 6.25 MG TAB PO SCH (08:01)
[2019-08-09] MEDS: FERROUS SULFATE 325 MG TAB PO SCH (08:01)
[2019-08-09] MEDS: RIFAXIMIN 550 MG TABLET PO SCH (08:01)
[2019-08-09] MEDS: LACTULOSE SYRUP 10 GM/15 ML BTL 473 ML PO SCH (08:01)
[2019-08-09] MEDS: ACETAMINOPHEN 325 MG TAB PO PRN (08:07)
--- NOTE | 2019-08-09 11:36 | Nephrology Progress Note ---
Date of Service August 09, 2019 Assessment & Plan (1) 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: (2) Hypertension: (3) Diabetic nephropathy: (4) Polyclonal gammopathy: (5) Anemia of chronic disease: Followed by Hematology as an outpatient. Additional 1 u PRBC provided yesterday for Hgb <8. GARCIA improved. Will provide one dose of Epogen 46508 units today. (6) Acute kidney injury: Consistent with ATN. Improving. Home diuretics have been restarted. Blood pressure remains slightly high but acceptable. Carvedilol has been increased to 6.25 mg twice daily. No specifically nephrotoxic medications were identified. (7) Chronic kidney disease, stage III (moderate): Baseline creatinine of approximately 1.3 mg/dL. HENRIQUE resolving. Medications are acceptable for kidney function. I have requested my office to arrange outpatient follow up with me in the nephrology within the next 2 weeks. Angela is stable for discharge from a nephrology standpoint. I discussed thsi with Dr. Mejia and the patient today. I will otherwise not follow as closely inpatient, so please call with any additional questions or concerns. Subjective No acute events overnight. Notable improvement following PRBC transfusion. No bleeding reported. Overall, Angela feels well. She denies significant dyspnea. Possible discharge home today. Review of Systems Review of Systems: All systems reviewed & are unremarkable except as noted in HPI & below Physical Exam Constitutional: well developed and + obese; no acute distress Eyes: + anicteric sclerae; no corneal abnormality ENMT: Mouth: no oral mucosal abnormality and oral mucous membranes not dry Neck: normal visual inspection and trachea midline Respiratory: normal respiratory effort Auscultation: lungs clear to auscultation bilaterally Cardiovascular: Rate/Rhythm: regular rate Heart Sounds: normal S1 and normal S2 Vessels: no JVD Extremities: + edema Musculoskeletal: Extremities: no cyanosis and no clubbing Skin: normal turgor; no lesions and no jaundice Neurologic: Motor/Sensory: no tremor and no asterixis Psychiatric: Orientation: alert and oriented x 3 Results & Data Vital Signs (Past 12 Hours) Vital Signs Temp Pulse Resp BP Pulse Ox 08/09/19 07:27 36.9 C 74 18 176/82 H 94 Laboratory Results Laboratory Results - last 24 hr 08/08/19 08/09/19 08/09/19 07:55 05:30 05:30 WBC 3.77 L RBC 2.91 L Hgb 8.7 L Hct 26.7 L MCV 91.8 MCH 29.9 MCHC 32.6 RDW Std Deviation 54.5 H RDW Coeff of Karina 16.3 H Plt Count 71 L MPV 9.6 Immature Gran % (Auto) 0.3 Neut % (Auto) 62.5 Lymph % (Auto) 22.8 [place] % (Auto) 9.3 Eos % (Auto) 4.8 Baso % (Auto) 0.3 Immature Gran # (Auto) 0.01 Neut # (Auto) 2.36 Lymph # (Auto) 0.86 L [place] # (Auto) 0.35 Eos # (Auto) 0.18 Baso # (Auto) 0.01 PT 14.3 H INR 1.4 H Sodium Potassium Chloride Carbon Dioxide Anion Gap BUN Creatinine Est Cr Clr Drug Dosing Est GFR ( Amer) Est GFR (Non-Af Amer) BUN/Creatinine Ratio Glucose Calcium Magnesium Total Bilirubin Direct Bilirubin AST ALT Alkaline Phosphatase Total Protein Albumin Crossmatch See Detail 08/09/19 05:30 WBC RBC Hgb Hct MCV MCH MCHC RDW Std Deviation RDW Coeff of Karina Plt Count MPV Immature Gran % (Auto) Neut % (Auto) Lymph % (Auto) [place] % (Auto) Eos % (Auto) Baso % (Auto) Immature Gran # (Auto) Neut # (Auto) Lymph # (Auto) [place] # (Auto) Eos # (Auto) Baso # (Auto) PT INR Sodium 144 Potassium 3.8 Chloride 117 H Carbon Dioxide 19 L Anion Gap 8.0 BUN 36 H Creatinine 2.11 H Est Cr Clr Drug Dosing 25.7 Est GFR ( Amer) 28.2 Est GFR (Non-Af Amer) 24.3 BUN/Creatinine Ratio 17.3 Glucose 71 Calcium 8.5 Magnesium 1.9 Total Bilirubin 2.1 H Direct Bilirubin 0.9 H AST 31 ALT 19 Alkaline Phosphatase 204 H Total Protein 7.6 Albumin 2.1 L Crossmatch PG Care Time/CCT Total # of Minutes Spent Total Time Spent with Patient: Total time spent is greater than 50% in coordination of care (as documented) at patient's floor/unit and/or counseling patient:
[2019-08-09] MEDS ORDERED: EPOETIN ALFA 10,000 UNITS/ML VIAL SQ ONE (12:15)
--- NOTE | 2019-08-09 13:51 | Discharge Summary ---
Date of Service August 09, 2019 Admission HPI Per Admitting Provider Ms. Sherman is a very pleasant 64 year old female with a past medical history of hepatic cirrhosis, CKD stage III, pancytopenia, dysphagia, diabetes mellitus type 2, hyperlipidemia, depression, GERD, and restless leg syndrome who presented to [facility] due to a 3-day history of progressively worsening shortness of breath. The patient reports that she was short of breath with minimal exertion, and was experiencing conversational dyspnea. She states that she felt similarly the last time her hemoglobin dropped, and she required a blood transfusion. She also endorses feeling weak, however denies any nausea, vomiting, abdominal pain, chest pain, fever, or chills. She denies any bleeding, and states that her bowels have been moving once every other day, without the presence of blood. With regards to her history of dysphagia, she states that this is improved, and she is now eating better. She reports that she has not yet seen a surgical assist for her liver cirrhosis. She speculates that her cirrhosis was caused by prolonged use of Cosentyx for her psoriatic arthritis. She is no longer on this medication. She denies alcohol use, or smoking. She reports compliance with her medications. Principal Diagnosis Dyspnea, severe anemia, HENRIQUE Discharge Exam Constitutional WD/WN, vitals as above Eyes + anicteric sclerae Neck trachea midline, no thyromegaly Respiratory normal respiratory effort, lungs clear to auscultation Cardiovascular Rate/Rhythm: regular rate and regular rhythm Heart Sounds: no murmur Extremities: + edema (trace pitting edema legs bilat, much improved) Chest (Breasts) Chest: normal inspection of chest Gastrointestinal (Abdomen) normal bowel sounds, soft, nontender, no hepatosplenomegaly Musculoskeletal Extremities: extremities normal to inspection; no cyanosis and no clubbing Skin no rashes, warm and dry Neurologic moves all extremities and awake; no focal motor deficits Psychiatric A+Ox3, euthymic affect Lymphatic no lymphedema Discharge Data Allergies Allergy/AdvReac Type Severity Reaction Status Date / Time Sulfa (Sulfonamide Allergy Mild Rash Verified 08/02/19 22:41 Antibiotics) sulfamethoxazole Allergy Mild RASH Verified 08/02/19 22:41 trimethoprim Allergy Mild RASH Verified 08/02/19 22:41 Bactrim Allergy Unknown RASH Verified 08/17/14 08:01 amlodipine AdvReac Intermediate confusion Verified 08/02/19 22:41 adhesive tape AdvReac Mild ITCHING Verified 08/02/19 22:41 Consultations 08/03/19 01:07 ED Decision to Admit Stat 08/03/19 10:43 Consult Gastroenterology Routine 08/05/19 10:11 Consult Nephrology Routine 08/09/19 07:52 Consult LISAG rough rice grader Routine Ordered Studies 08/03/19 18:27 CT angio chest PE protocol Urgent CXR Hospital Course (1) Shortness of breath: Ms. 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, polyclonal gammopathy, dysphagia, diabetes mellitus type 2, hyperlipidemia, depression, G ERD, and restless leg syndrome who presented to [facility] due to a 3-day history of progressively worsening shortness of breath Dyspnea-improved now status post transfusion of 3 units PRBCs, CT angiogram of the chest negative for PE but has small pleural effusions likely from renal failure, cirrhosis Anemia -Hemoglobin 6.9 on admission, was previously around 7.5-8.5 for many months -No signs or symptoms of bleeding -Fe studies consistent with chronic disease although were checked after transfusion -Likely related to combination of anemia of chronic disease, cirrhosis, polyclonal gammopathy -has had several bone marrow aspirates without multiple myeloma, follows with Heme/Onc in [place] -transfused 1 unit prbcs in ED and came up to 8.2--> transfused another 1 unit on 08/04 for hgb drop again to 7.8 and continued GARCIA Hemoglobin then back down again to 7.8--> transfused a 3rd unit on 08/08 and now SOB resolved -follow CBC closely as an outpt -continue home iron supplementation -recommend close f/u with Heme/Onc--> pt and request for all her specialists to be in one place at [facility]-will request new patient appointment through our Nurse Navigator HTN-BPs significantly elevated today -restarted home diuretics -increase Coreg to 6.5mg po bid Left sided pleural effusion -CXR and CTA Chest showed pulmonary vascular congestion and a left sided pleural effusion -unsure of chronicity of effusion given U/S in 06/2019 also showed an effusion -unsure how much this is contributing to presenting complaint of SOB -restarted diuretics which were on hold for acute kidney injury-continue lasix and aldactone, did receive 1 dose of IV lasix with albumin on admission -no oxygen demand, patient saturating well on room air and improved dyspnea Pancytopenia -Related to liver cirrhosis -Platelets 71 and stable, no indication for transfusion Anemia as above WBC count 3.5 and stable Liver cirrhosis -felt to be secondary to MAE, however patient also reports it started after prolonged use of Cosentyx for her psoriatic arthritis (she is no longer on this medication) -no hx of alcohol abuse -has seen hepatology at [facility] but requests transfer of care to [facility]--> will ask Nurse Navigator to arrange -is UTD on HCC screening as per GI -EGD performed in 06/2019 showed non bleeding grade 1 esophageal varices and portal hypertensive gastropathy -continue home carvedilol and PPI -restarted Aldactone and Lasix after holding for HENRIQUE Hyperammonemia -Patient mentating well -Ammonia level 88.4 on arrival and then down to 77 -blood cx drawn x 2 and no growth -Continue home lactulose and rifaximin -titrate lactulose upwards if necessary -no need to follow NH3 HENRIQUE in the setting of CKD stage 3 -baseline creatinine is reportedly 1, however has been ranging from 1.2 - 2.4 on recent lab work -creatinine 1.44 on admission, then 1.3, then up to 1.6 after restarting home diuretics and did get IV contrast for CT-trended up to 2.64 and is now back down to 2.11 with holding diuretics and giving gentle IVFs -Appreciate nephrology consultation -follow BMP within 1 week as outpt with Nephrology f/u -restarted home Lasix and Aldactone -DCd IV fluids -Cautiously watch volume status -Hypoalbuminemia is a complicating factor History of type 2 diabetes mellitus -Patient was reportedly taken off medication due to improved glucose control -Hemoglobin A1c in 05/07 was 4.5% Restless leg syndrome -Continue home ropinirole Depression -Continue home venlafaxine Hypercholesterolemia -Continue home simvastatin -hold home aspirin due to previous gastritis, esophageal varices, and severe anemia History of Dysphagia -had a dilation of esophagus over ten years ago -barium swallow during previous hospitalization showed esophageal spasm -longstanding issue, however dysphagia greatly improved - pt reports increased appetite CODE STATUS: Full DVT prophylaxis: SCDs Disposition: stable for dc to home (2) Iron deficiency anemia: (3) Hypertension: (4) Depression: (5) CHF (congestive heart failure): (6) Pulmonary hypertension: (7) Mitral regurgitation: (8) Peptic ulcer disease: (9) Dyslipidemia: (10) Diabetic peripheral neuropathy: (11) Diabetic nephropathy: (12) Liver cirrhosis: (13) Psoriatic arthritis: (14) Anemia of chronic disease: (15) GERD (gastroesophageal reflux disease): (16) DM type 2 (diabetes mellitus, type 2): (17) Acute kidney injury: (18) Chronic kidney disease, stage III (moderate): Total Time Total Time Spent Total Time Spent (In Minutes): 35 min Total Time Includes: Examination of the Patient, Discharge Planning, Medication Reconciliation and Communication With Other Providers (Nephrology) Discharge Plan Discharge Items Patient Disposition: Home - Home Health Services Reason For Visit: ANEMIA, HENRIQUE, SOB Discharge Diagnosis: Anemia, acute kidney injury, shortness of breath Condition on Discharge: Fair Activity: As commented below Lifting: Gradually increase as tolerated Bathing: No limitations Exercise/Sports: Gradually increase as tolerated Weightbearing: Full weightbearing Non-emergency contact: Primary Care Provider, Operations Trainer, Traffic Sign Erection Supervisor and Oncologist Call non-emergency contact if: you have any medication questions and your symptoms worsen Follow-up/Referrals: Rocío Alonso DO [Primary Care Provider] - (Please call for a hospital follow-up appointment within 1 to 2 weeks of discharge. ) Phil Galeano DO [Physician] - (Dr. Galeano's office should be calling you about a follow-up appointment within the next 2 weeks. You should have blood work done prior to this appointment.) Diet: Carb Consistent or DM2 and Low Sodium (2gm) Fluids: 1800ml (7 cups) Diet Comment: Do not drink Gatorade. Ambulatory Orders: Complete Blood Count with Diff (Routine) Timeframe: 5 Days Location: Determined by Patient Ordered By: Mali Mejia Comprehensive Metabolic Panel (Routine) Timeframe: 5 Days Location: Determined by Patient Ordered By: Mali Mejia Addtl Attending Provider Instructions: You were admitted with shortness of breath which was secondary to some fluid around the bottoms of the lungs from low protein levels. It was also due to severe anemia. You were given transfusions of red blood cells and your shortness of breath improved. You had a CT scan of the chest which did not show any blood clots or pneumonia which is a good thing. It is unclear why your anemia is worsening. Please follow-up with the supervisor water softener service as will be scheduled for you. We are aware that you wanted to switch to the cancer care partnership at [facility]. Because of your acute kidney injury and your chronic kidney disease, it is important for you to follow-up with Dr. Galeano of nephrology. His office should be contacting you to schedule an appointment within 2 weeks. Please have your blood work drawn this coming Saturday and the results will be sent to both Dr. Galeano and Dr. Alonso for review. Your carvedilol was increased to 6.25 mg twice a day. You should remain on all your other usual medications as listed for you on this paperwork. Our nurse navigator will also get you in as a new patient to see the liver specialist at [facility] in [place] as per your request. Please follow-up with your PCP within 2 weeks. Pending Studies at Discharge: No Stand-Alone Forms: My [facility] Medications and DC Order Prescriptions: New carvedilol 6.25 mg Tablet 6.25 mg PO BID Qty: 60 RF: 0 Continued folic acid 1 mg tablet 1 mg PO BID Qty: 60 RF: 0 (DME) adhesive bandage bandage See Dose Instructions .ROUTE .MEDSUPPLY Qty: 20 RF: 5 potassium chloride 20 mEq tablet extended release 20 meq PO BID Qty: 60 RF: 1 ferrous sulfate 325 mg (65 mg iron) tablet 325 mg PO QAM RF: 0 (DME) walker misc See Dose Instructions .ROUTE .MEDSUPPLY Qty: 1 RF: 0 furosemide 40 mg tablet 40 mg PO BID Qty: 60 RF: 5 Xifaxan 550 mg tablet 550 mg PO BID Qty: 60 RF: 2 venlafaxine 150 mg tablet extended release 24hr 150 mg PO QPM Qty: 30 RF: 5 fluticasone propionate 50 mcg/actuation spray,suspension 2 sprays INTNAS DAILY PRN (Reason: Nasal Congestion) RF: 0 spironolactone 50 mg tablet 50 mg PO QAM RF: 0 lactulose 20 gram/30 mL solution 15 ml PO BID RF: 0 simvastatin 20 mg tablet 20 mg PO HS RF: 0 nystatin 100,000 unit/gram powder 1 appln TOP BID PRN (Reason: Skin Irritation) RF: 0 Discontinued aspirin 81 mg tablet,delayed release (DR/EC) 81 mg PO QAM Qty: 30 RF: 11 carvedilol 3.125 mg tablet 3.125 mg PO BID Qty: 60 RF: 5 No Action ropinirole 2 mg tablet 2 mg PO HS Qty: 30 RF: 5 Prilosec OTC 20 mg tablet,delayed release (DR/EC) 20 mg PO BID Qty: 60 RF: 5 Discharge Orders: Discharge Order (Routine); Ordered 08/09/19 Ordered By: Mali Mejia Admission Data Admit Date/Time: 08/03/19 02:14 Attending Provider: Mali Mejia Admit Provider: Connie Mcknight Primary Care Provider: Rocío Alonso Other Providers: Hussein Llamas ; Anand Wagner ; Phil Galeano Other Interventions: Discharge Summary Assessment (RN) Last Done: 08/09/19 13:56 DC Date/Time DO NOT enter until pt leaves facility: 08/09/19 15:29
== END 2019-08-09 15:29 | disposition home health service (06) | DRG 441 ==
LOC: ED 21:41 → SUATTDRO 08-03 02:14 → 4W 08-03 02:14

== ENCOUNTER 2019-08-28 18:18 | Inpatient (IN) ==
[2019-08-28] MEDS ORDERED: FUROSEMIDE 40 MG/4 ML VIAL IV STA (18:30)
[2019-08-28] MEDS ORDERED: cloNIDine HCL 0.1 MG TAB PO ONE (18:30)
--- NOTE | 2019-08-28 18:34 | Emergency Department Note ---
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 The patient states that she has been experiencing shortness of breath for the last week. Her also reports that she had a recent hospital admission in July 2019 for CHF and has been retaining fluid ever since. He states that her Lasix is not working. Additionally, the patient reports that her BP and blood glucose levels have recent been high. Her reports a blood glucose level of 515 a few days ago. She denies cough and fever. The patient offers no further concerns at this time. Home Medications Home Medications Medication Instructions Recorded Confirmed Type ferrous sulfate 325 mg (65 mg 325 mg PO QAM tab 01/28/19 08/28/19 History iron) tablet adhesive bandage #20 ea 05/18/19 08/20/19 Rx rifaximin 550 mg tablet 550 mg PO BID #60 tab 06/02/19 08/28/19 Rx walker #1 ea 06/25/19 08/20/19 Rx furosemide 40 mg tablet 40 mg PO BID #60 tab 06/30/19 08/28/19 Rx potassium chloride 20 mEq 20 meq PO BID #60 tab 06/30/19 08/28/19 Rx tablet,extended release fluticasone propionate 2 sprays INTNAS DAILY PRN 07/13/19 08/28/19 History lactulose 30 ml PO QAM 07/13/19 08/28/19 History spironolactone 50 mg PO QAM 07/13/19 08/28/19 History carvedilol 6.25 mg PO BID #60 tab 08/09/19 08/28/19 Rx folic acid 1 mg tablet 1 mg PO BID #60 tab 08/20/19 08/28/19 Rx ropinirole 2 mg tablet 2 mg PO HS #30 tab 08/20/19 08/28/19 Rx insulin glargine [Basaglar DenisePen See Rx Instructions .ROUTE 08/28/19 08/28/19 History U-100 Insulin] .COMPLEX PRN losartan 100 mg PO QAM 08/28/19 08/28/19 History omeprazole magnesium [Prilosec OTC] 20 mg PO BID 08/28/19 08/28/19 History Allergies Allergy/AdvReac Type Severity Reaction Status Date / Time Sulfa (Sulfonamide Allergy Mild Rash Verified 08/28/19 19:54 Antibiotics) sulfamethoxazole Allergy Mild RASH Verified 08/28/19 19:54 trimethoprim Allergy Mild RASH Verified 08/28/19 19:54 Bactrim Allergy Unknown RASH Verified 08/17/14 08:01 amlodipine AdvReac Intermediate confusion Verified 08/28/19 19:54 adhesive tape AdvReac Mild ITCHING Verified 08/28/19 19:54 Past Med/Surg History Medical History Anemia Anxiety Cardiac murmur Diabetes mellitus, type 2 Diverticular disease Duodenal ulcer Esophageal varices Gastric ulcer GERD (gastroesophageal reflux disease) History of recent blood transfusion 06/2019 Hyperlipidemia Hypertension Liver cirrhosis Nausea and vomiting after administration of anesthetic agent Osteoarthritis Psoriatic arthritis Restless leg syndrome Surgical History History of anesthesia reaction difficult to wake after bladder tack sx History of bilateral cataract extraction History of bladder surgery bladder tack History of colonoscopy History of esophagogastroduodenoscopy (EGD) multiple---last 06/22/19 [place] [facility] [place] of hemiarthroplasty of right shoulder January 2018 post fracture History of repair of right rotator cuff History of revision of total shoulder arthroplasty Right shoulder, 12/29/18 History of tooth extraction all teeth S/P ORIF (open reduction internal fixation) fracture R shoulder, January 2018 Family History Grandmother (Paternal) Family history of diabetes mellitus Father COPD (chronic obstructive pulmonary disease) Mother Hypertension Family/Other Cancer Sister Ovarian cancer Social History Preferred Language: Estonian Communication Ability: Effective Visual Impairment: Limited Hearing Ability: Normal Foam 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 and A total of 10 systems reviewed and were otherwise negative As above otherwise negative for 10 systems Physical Exam Vital Signs Vital Signs - 24 hr 08/28/19 18:22 08/28/19 18:33 08/28/19 18:45 Temperature 36.9 C Temperature Source Oral Pulse Rate 93 H 86 Pulse Rate [Right] Pulse Rhythm Regular Regular Pulse Rhythm [Right] Pulse Strength Normal Pulse Strength [Right] Respiratory Rate 22 28 H Respiratory Effort / Characteristics Non-Labored Spontaneous Non-Labored Spontaneous Respiratory Depth Normal Normal Respiratory Pattern Regular Regular Blood Pressure 197/82 H Blood Pressure [Right Arm] Blood Pressure Mean 120 Blood Pressure Mean [Right Arm] Blood Pressure Position Sitting Blood Pressure Position [Right Arm] Pulse Oximetry 95 95 93 Oxygen Delivery Method Room Air Room Air Room Air Sepsis Recent Fever Within 48 Hours No Sepsis New/Unexplained Change in Mental Status No Sepsis Action Taken by Nursing No Action Required 08/28/19 19:12 08/28/19 20:07 Temperature Temperature Source Pulse Rate Pulse Rate [Right] 89 91 H Pulse Rhythm Pulse Rhythm [Right] Regular Pulse Strength Pulse Strength [Right] Normal Respiratory Rate 28 H 22 Respiratory Effort / Characteristics Spontaneous Respiratory Depth Shallow Respiratory Pattern Regular Blood Pressure Blood Pressure [Right Arm] 203/86 H 195/92 H Blood Pressure Mean Blood Pressure Mean [Right Arm] 125 126 Blood Pressure Position Blood Pressure Position [Right Arm] Lying Pulse Oximetry 93 94 Oxygen Delivery Method Room Air Sepsis Recent Fever Within 48 Hours Sepsis New/Unexplained Change in Mental Status Sepsis Action Taken by Nursing CONSTITUTIONAL/VITAL SIGNS: Reviewed / noted above. GENERAL: Non-toxic in appearance. INTEGUMENTARY: Warm, dry, and [place]. HEAD: Normocephalic. EYES: without scleral icterus or trauma. ENT/OROPHARYNX: clear and moist. LYMPHADENOPATHY/NECK: Is supple without lymphadenopathy or meningismus. RESPIRATORY: Lungs revealed bilateral rales. CARDIOVASCULAR: Regular rate and rhythm. GI/ABDOMEN: Soft and nontender. No organomegaly or pulsatile mass. No rebound or guarding. Normal bowel sounds. EXTREMITIES: Warm and well perfused. Bilateral lower extremity pitting edema. BACK: No CVA tenderness. NEUROLOGICAL: Intact without focal deficits. PSYCHIATRIC: normal affect. MUSCULOSKELETAL: Normally developed with good muscle tone. TRIAGE NURSING DOCUMENTATION REVIEWED. Course Course 182: Past medical records reviewed. The patient was evaluated in room C09. A complete history and physical exam was performed. 2009: I spoke to Dr. Wagner, [facility] Hospitalist who will further evaluate the patient. 2030: I checked on the patient and updated her on plan to admit. The patient verbally expressed understanding and agreement of the treatment plan. The pa mandy will be evaluated for further treatment. Administered Medications Discontinued Medications Clonidine HCl (Catapres) 0.1 mg PO NOW ONE Stop: 08/28/19 18:31 Last Admin: 08/28/19 19:12 Dose: 0.1 mg Documented by: [id number] Furosemide (Lasix) 60 mg IV NOW STA Stop: 08/28/19 18:31 Last Admin: 08/28/19 19:12 Dose: 60 mg Documented by: [id number] Medical Decision Making Differential Diagnosis The differential was considered includes acute myocardial infarction, acute coronary syndrome, myocarditis, pericarditis, pericardial effusions /tamponad, esophageal perforation, pulmonary embolism, pneumonia, pneumothorax, cardiomyopathy, congestive heart, anemia , COPD/asthma exacerbation. Medical Records Attestation: I reviewed the patient's medical records. Home Medications Current Medication List: was personally reviewed by me Laboratory Data Attestation: I reviewed the patient's lab results. Result diagrams: 08/28/19 19:00 08/28/19 19:00 Lab Results 08/28/19 08/28/19 Range/Units 19:00 19:00 WBC 5.23 (4.8-10.8) K/uL RBC 3.23 L (4.2-5.4) M/uL Hgb 9.4 L (12.0-16.0) g/dL Hct 29.1 L (37-47) % MCV 90.1 (80-100) fL MCH 29.1 (25-34) pg MCHC 32.3 (32-36) g/dL RDW Std Deviation 55.9 H (36.4-46.3) fL RDW Coeff of Karina 16.9 H (11.5-14.5) % Plt Count 75 L (130-400) K/uL MPV 10.8 H (7.4-10.4) fL Immature Gran % (Auto) 0.2 % Neut % (Auto) 70.4 % Lymph % (Auto) 17.4 % Major % (Auto) 8.4 % Eos % (Auto) 3.4 % Baso % (Auto) 0.2 % Immature Gran # (Auto) 0.01 (0.00-0.02) K/uL Neut # (Auto) 3.68 (1.4-6.5) K/uL Lymph # (Auto) 0.91 L (1.2-3.4) K/uL Major # (Auto) 0.44 (0.11-0.59) K/uL Eos # (Auto) 0.18 (0-0.5) K/uL Baso # (Auto) 0.01 (0-0.2) K/uL Sodium 143 (136-145) mmol/L Potassium 4.1 (3.5-5.1) mmol/L Chloride 114 H (98-107) mmol/L Carbon Dioxide 23 (21-32) mmol/L Anion Gap 5.0 (3-11) BUN 39 H (7-18) mg/dl Creatinine 1.63 H (0.6-1.2) mg/dl Est Cr Clr Drug Dosing 32.1 ml/min Est GFR ( Amer) 38.5 Est GFR (Non-Af Amer) 33.2 BUN/Creatinine Ratio 24.0 H (10-20) Glucose 343 H* (70-99) mg/dl Calcium 8.8 (8.5-10.1) mg/dl Troponin I < 0.015 (0-0.045) ng/ml Beta-Hydroxybutyric Acd 0.85 (0.2-2.81) mg/dl Imaging Data Radiologist's Impression: Radiology results as stated below per my review and the radiologist's interpretation: XR chest 1V portable CLINICAL HISTORY: Atypical chest pain COMPARISON STUDY: 08/02/2019 FINDINGS: The heart is enlarged. There is a left pleural effusion with associated left lower lobe atelectasis/consolidation. There are subtle right upper lobe airspace opacities. There is suspected underlying pulmonary vascular congestion.[ IMPRESSION: 1. Cardiomegaly and radiographic evidence of mild pulmonary vascular congestion 2. Left pleural effusion with associated left lower lobe atel ectasis/consolidation 3. Subtle right upper lobe airspace opacities, pulmonary edema versus pneumonia. ACT 112: Negative or not required by law. Electronically signed by: Devon Walton M.D. 08/28/2019 7:12 PM ECG Data Attestation: I personally reviewed and interpreted this ECG as follows: Indication: + SOB/dyspnea Rate (beats per minute): 88 Rhythm: + normal sinus ECG Intervals/blocks: + Normal QT-c ECG ST segments: no ST elevation ECG Findings: no PVCs Blood Pressure Blood Pressure Findings: Elevated blood pressure Blood Pressure Disposition: further management by hospitalist MDM Narrative This is a 64-year-old female who presents to the ED with a chief complaint of shortness of breath. She states that she has been having increasing difficulty breathing over the past week. She was discharged in late July with congestive heart failure. She feels like she is retaining fluid. She has some increased pedal edema. Denies any fevers or recent illness. Denies any chest pains. Her vital signs reveal hypertension. Her pulse ox is 93% on room air. She is afebrile. Her physical exam reveals bilateral rales and pitting pedal edema. She is in no respiratory distress. She has slight increased work of breathing. The patient's chest x-ray reveals some mild vascular congestion as well as a possible left lower lobe consolidation. No clear clinical evidence for pneumonia on my exam. Hemoglobin is 9.4. Glucose is 343. Troponin was negative. EKG shows a normal sinus rhythm with a rate of 88. The patient was treated with IV Lasix and p.o. clonidine. Her blood pressure remained elevated. She was given nitroglycerin paste to the chest. She did diurese after the Lasix. The patient was told the results. She still seems dyspneic on exam. She has dyspnea on exertion as well walking to the bathroom. She will be seen by the hospitalist for further evaluation and care. Impression & Plan CHF (congestive heart failure), Hypertensive urgency, Acute hyperglycemia Discharge Plan Visit Data Chief Complaint: Shortness of Breath/Dyspnea Stated Complaint: SHORTNESS OF BREATH ED Provider: Phil Plata Discharge Problem: CHF (congestive heart failure), Hypertensive urgency, Acute hyperglycemia Patient Disposition: Being Evaluated by Hospitalist Forms Stand Alone Forms: [facility] Prescriptions Prescriptions: No Action (DME) adhesive bandage bandage See Dose Instructions .ROUTE .MEDSUPPLY Qty: 20 RF: 5 potassium chloride 20 mEq tablet extended release 20 meq PO BID Qty: 60 RF: 1 ferrous sulfate 325 mg (65 mg iron) tablet 325 mg PO QAM RF: 0 (DME) walker misc See Dose Instructions .ROUTE .MEDSUPPLY Qty: 1 RF: 0 furosemide 40 mg tablet 40 mg PO BID Qty: 60 RF: 5 Xifaxan 550 mg tablet 550 mg PO BID Qty: 60 RF: 2 ropinirole 2 mg tablet 2 mg PO HS Qty: 30 RF: 5 folic acid 1 mg tablet 1 mg PO BID Qty: 60 RF: 0 carvedilol 6.25 mg Tablet 6.25 mg PO BID Qty: 60 RF: 0 fluticasone propionate 50 mcg/actuation spray,suspension 2 sprays INTNAS DAILY PRN (Reason: Allergy Symptoms) RF: 0 spironolactone 50 mg tablet 50 mg PO QAM RF: 0 lactulose 20 gram/30 mL solution 30 ml PO QAM RF: 0 losartan 100 mg tablet 100 mg PO QAM RF: 0 Prilosec OTC 20 mg tablet,delayed release (DR/EC) 20 mg PO BID RF: 0 Basaglar KwikPen U-100 Insulin 100 unit/mL (3 mL) insulin pen See Rx Instructions .ROUTE .COMPLEX PRN (Reason: Hyperglycemia) RF: 0 Referrals Referrals: Rocío Alonso DO [Primary Care Provider] - Discharge Problem: CHF (congestive heart failure) Qualifiers: Heart failure type: unspecified Heart failure chronicity: acute Qualified Code(s): I50.9 - Heart failure, unspecified The scribe's documentation has been prepared under my direction and personally reviewed by me in its entirety. I confirm that the note above accurately reflects all work, treatment, procedures, and medical decision making performed by me.
--- NOTE | 2019-08-28 19:13 | XRay Report ---
XR chest 1V portable CLINICAL HISTORY: Atypical chest pain COMPARISON STUDY: 08/02/2019 FINDINGS: The heart is enlarged. There is a left pleural effusion with associated left lower lobe ate lectasis/consolidation. There are subtle right upper lobe airspace opacities. There is suspected unde rlying pulmonary vascular congestion.[ IMPRESSION: 1. Cardiomegaly and radiographic evidence of mild pulmonary vascular congestion 2. Left pleural effusion with associated left lower lobe atelectasis/consolidation 3. Subtle right upper lobe airspace opacities, pulmonary edema versus pneumonia. ACT 112: Negative or not required by law. Electronically signed by: Devon Walton M.D. 08/28/2019 7:12 PM
[2019-08-28 19:20] LABS: Hematocrit (blood only) 29.1 % (37-47); Hemoglobin 9.4 g/dL (12.0-16.0); Mean Corpuscular Hemoglobin 29.1 pg (25-34); Mean Corpuscular Hgb Conc 32.3 g/dL (32-36); Mean Corpuscular Volume 90.1 fL (80-100); RDW Coefficient of Variation 16.9 % (11.5-14.5); RDW Standard Deviation 55.9 fL (36.4-46.3); Red Blood Count 3.23 M/uL (4.2-5.4); White Blood Count 5.23 K/uL (4.8-10.8)
[2019-08-28 19:35] LABS: Blood Urea Nitrogen 39 mg/dl (7-18); Calcium 8.8 mg/dl (8.5-10.1); Carbon Dioxide 23 mmol/L (21-32); Chloride 114 mmol/L (98-107); Creatinine Clr Calc Pharmacy 32.1 ml/min; Est GFR (African American) 38.5; Est GFR (Non-African American) 33.2; Glucose 343 mg/dl (70-99); Potassium 4.1 mmol/L (3.5-5.1); Sodium 143 mmol/L (136-145)
[2019-08-28 19:37] LABS: Troponin I < 0.015 ng/ml (0-0.045)
[2019-08-28 19:39] LABS: Mean Platelet Volume 10.8 fL (7.4-10.4); Platelet Count 75 K/uL (130-400)
[2019-08-28 19:40] LABS: Basophils # (auto) 0.01 K/uL (0-0.2); Basophils % (auto) 0.2 %; Eosinophils # (auto) 0.18 K/uL (0-0.5); Eosinophils % (auto) 3.4 %; Immature Granulocytes # (auto) 0.01 K/uL (0.00-0.02); Immature Granulocytes % (auto) 0.2 %; Lymphocytes # (auto) 0.91 K/uL (1.2-3.4); Lymphocytes % (auto) 17.4 %; Monocytes # (auto) 0.44 K/uL (0.11-0.59); Monocytes % (auto) 8.4 %; Neutrophils # (auto) 3.68 K/uL (1.4-6.5); Neutrophils % (auto) 70.4 %
[2019-08-28 19:45] LABS: Beta-Hydroxybutyrate 0.85 mg/dl (0.2-2.81)
[2019-08-28] MEDS ORDERED: NITROGLYCERIN 2% OINTMENT 30GM TUBE EXT ONE (20:20)
[2019-08-28] MEDS ORDERED: dilTIAZem HCl 5 MG/ML 5 ML VIAL IV STA (20:58)
[2019-08-28] MEDS ORDERED: dilTIAZem HCl 5 MG/ML 5 ML VIAL IV ONE (21:02)
[2019-08-28] MEDS ORDERED: GLUCOSE 10 TABS/TUBE PO PRN (22:16)
[2019-08-28] MEDS ORDERED: GLUCOSE 40% GEL 15 GM TUBE PO PRN (22:16)
[2019-08-28] MEDS ORDERED: DEXTROSE 50% 50 ML SYRINGE IV PRN (22:16)
[2019-08-28] MEDS ORDERED: CARBOHYDRATES FOR HYPOGLYCEMIA PO PRN (22:16)
[2019-08-28] MEDS ORDERED: GLUCAGON FOR INJ 1 MG VIAL SQ PRN (22:16)
[2019-08-28] MEDS ORDERED: ALUMINUM/MAGNESIUM SUSP 30 ML UDC PO PRN (22:16)
[2019-08-28] MEDS ORDERED: PIPERACILL/TAZOBAC CONSULT ACTIVE PRN (22:16)
[2019-08-28] MEDS ORDERED: POLYETHYLENE (MIRALAX) 17 GM PACK PO PRN (22:16)
[2019-08-28] MEDS ORDERED: ONDANSETRON INJ 2 MG/ML 2 ML VIAL IV PRN (22:16)
[2019-08-28] MEDS ORDERED: FLUTICASONE PROPIONATE NA SPR 16 GM BTL NAE PRN (22:16)
[2019-08-28] MEDS ORDERED: MAGNESIUM HYDROXIDE SUSP 30 ML UDC PO PRN (22:16)
[2019-08-28] MEDS ORDERED: PIPERACILLIN/TAZOBACTAM 3.375 GM in DEXTROSE 5% 100 ML IV ONE (22:45)
[2019-08-28] MEDS ORDERED: NITROGLYCERIN 2% OINTMENT 30GM TUBE ONE (22:59)
[2019-08-28] MEDS ORDERED: AZITHROMYCIN 500 MG in DEXTROSE 5% 250 ML IV SCH (23:00)
[2019-08-28] MEDS: RIFAXIMIN 550 MG TABLET PO SCH (23:09)
[2019-08-28] MEDS: carvediloL 6.25 MG TAB PO SCH (23:09)
[2019-08-28] MEDS: ROPINIROLE HCL 1 MG TABLET PO SCH (23:09)
[2019-08-28] MEDS: FOLIC ACID 1 MG TAB PO SCH (23:09)
[2019-08-28] MEDS: guaiFENesin 600 MG TABCR PO SCH (23:09)
[2019-08-28] MEDS: INSULIN ASPART 100 UNITS/ML 3 ML PEN SC SCH (23:18)
[2019-08-28 23:32] LABS: Troponin I < 0.015 ng/ml (0-0.045)
--- NOTE | 2019-08-28 23:56 | History & Physical Report ---
Date of Service August 28, 2019 Assessment & Plan (1) Pneumonia: Left lower lobe pneumonia with parapneumonic effusion/right upper lobe pneumonia- Placed on Zosyn IV and azithromycin IV. DuoNebs 4 times daily and every 2 hours as needed. Pulmicort Respules 0.5 mg inhaled twice daily. Nasal cannula oxygen, titrate to keep pulse ox 94 to 95%. Present on Admission?: Yes (2) Hypertensive urgency: Continue carvedilol 6.25 mg p.o. twice daily and losartan 100 mg p.o. every morning. Placed on Cardizem 10 mg IV every 4 hours as needed for systolic blood pressure greater than 150. Patient did require a single dose of Cardizem 10 mg IV in the ED to improve heart rate and blood pressure control. Present on Admission?: Yes (3) 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: Continue furosemide, lactulose, omeprazole, rifaximin and spironolactone. Follow serial laboratories. Present on Admission?: Yes (4) CHF (congestive heart failure): Pleural effusion is noted with left lower lobe infiltrate. Continue furosemide. Present on Admission?: Yes (5) Peptic ulcer disease: Change omeprazole 20 mg p.o. twice daily to pantoprazole 40 mg p.o. twice daily Present on Admission?: Yes (6) Iron deficiency anemia: Continue iron sulfate 325 mg every morning. She reports that she has an appointment with Dr. Hylton from hematology in 3 days. If she is still here on Saturday, 3 days, we will consult him at that time. Present on Admission?: Yes (7) Right forearm injury: Patient reports that the cast on her right forearm was due to be taken off tomorrow. She has appointment to see [facility] medicine [facility]oped[facility]. We will see if if they will be able to see her during hospitalization. Present on Admission?: Yes History of Present Illness Chief Complaint: The patient presents to the emergency department due to increasing shortness of breath, intermittently productive cough and decreased oral intake. Primary Care Provider: Rocío Alonso DO The patient is a 64-year-old female with a past medical history including CHF, liver cirrhosis secondary to MAE, diabetes mellitus, hypertension, mitral regurgitation, iron deficiency anemia, psoriatic arthritis, rheumatoid arthritis and GERD. She was most recently admitted to [facility] from 08/03-08/09 due to shortness of breath associated with left-sided pleural effusion, symptomatic anemia and fluid overload. She did report getting back toward normal, but then was exposed to other people with respiratory processes, and developed the present symptoms that brought her in to the ED today. Allergies Allergy/AdvReac Type Severity Reaction Status Date / Time Sulfa (Sulfonamide Allergy Mild Rash Verified 08/28/19 19:54 Antibiotics) sulfamethoxazole Allergy Mild RASH Verified 08/28/19 19:54 trimethoprim Allergy Mild RASH Verified 08/28/19 19:54 Bactrim Allergy Unknown RASH Verified 08/17/14 08:01 amlodipine AdvReac Intermediate confusion Verified 08/28/19 19:54 adhesive tape AdvReac Mild ITCHING Verified 08/28/19 19:54 Home Medications Home Medications Medication Instructions Recorded Confirmed Type ferrous sulfate 325 mg (65 mg 325 mg PO QAM tab 01/28/19 08/28/19 History iron) tablet adhesive bandage #20 ea 05/18/19 08/20/19 Rx rifaximin 550 mg tablet 550 mg PO BID #60 tab 06/02/19 08/28/19 Rx walker #1 ea 06/25/19 08/20/19 Rx furosemide 40 mg tablet 40 mg PO BID #60 tab 06/30/19 08/28/19 Rx potassium chloride 20 mEq 20 meq PO BID #60 tab 06/30/19 08/28/19 Rx tablet,extended release fluticasone propionate 2 sprays INTNAS DAILY PRN 07/13/19 08/28/19 History lactulose 30 ml PO QAM 07/13/19 08/28/19 History spironolactone 50 mg PO QAM 07/13/19 08/28/19 History carvedilol 6.25 mg PO BID #60 tab 08/09/19 08/28/19 Rx folic acid 1 mg tablet 1 mg PO BID #60 tab 08/20/19 08/28/19 Rx ropinirole 2 mg tablet 2 mg PO HS #30 tab 08/20/19 08/28/19 Rx insulin glargine [Basaglar KwikPen See Rx Instructions .ROUTE 08/28/19 08/28/19 History U-100 Insulin] .COMPLEX PRN losartan 100 mg PO QAM 08/28/19 08/28/19 History omeprazole magnesium [Prilosec OTC] 20 mg PO BID 08/28/19 08/28/19 History Past Med/Surg History Medical History Anemia Anxiety Cardiac murmur Diabetes mellitus, type 2 Diverticular disease Duodenal ulcer Esophageal varices Gastric ulcer GERD (gastroesophageal reflux disease) History of recent blood transfusion 06/2019 Hyperlipidemia Hypertension Liver cirrhosis Nausea and vomiting after administration of anesthetic agent Osteoarthritis Psoriatic arthritis Restless leg syndrome Surgical History History of anesthesia reaction difficult to wake after bladder tack sx History of bilateral cataract extraction History of bladder surgery bladder tack History of colonoscopy History of esophagogastroduodenoscopy (EGD) multiple---last 06/22/19 Dr. Malena Marie at [facility] History of hemiarthroplasty of right shoulder January 2018 post fracture History of repair of right rotator cuff History of revision of total shoulder arthroplasty Right shoulder, 12/29/18 History of tooth extraction all teeth S/P ORIF (open reduction internal fixation) fracture R shoulder, January 2018 Family History Grandmother (Paternal) Family history of diabetes mellitus Father COPD (chronic obstructive pulmonary disease) Mother Hypertension Family/Other Cancer Sister Ovarian cancer Social History Preferred Language: Latvian Communication Ability: Effective Visual Impairment: Limited Hearing Ability: Normal 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 Beliefs That Will Affect Care: None marital status: Current Living Situation: Spouse Current Living Situation Comment: Lives with and son current occupational status: retired Feels Safe at Home: Yes Safety Concerns: Feels Safe At This Time Smoking Status: Never smoker Second Hand Exposure: Yes (parents smoked) ; Hx Alcohol Use: No Hx Substance Use: No Childhood Exposure to Second-Hand Smoke: Yes Other Diet Comment: regular Dental Care, Regularly: No Physical Activity Frequency: Does not Exercise Seatbelt Use: sometimes Review of Systems Review of Systems: The patient denies chest pain, palpitations, lower extremity swelling, sore throat, fevers, chills, sweats, nausea, vomiting, diarrhea , constipation, abdominal pain, pelvic pain, blood in urine or stool, dysuria, urinary frequency or urgency, lightheadedness, dizziness, headache, memory loss, loss of consciousness, rash, abnormal bruising or bleeding, imbalance, focal weakness, numbness or tingling in arms or legs, back or neck pain, or night sweats. The review of systems is otherwise negative other than for that already noted above, and at least 10 systems have been reviewed. Physical Exam Physical Exam: The patient is awake, alert and oriented 3, normocephalic and atraumatic, sitting upright in bed and in no acute distress. HEENT--PERRL, EOMI, mucous membranes and oropharynx dry. Neck--supple. No JVD. No bruits. Thyroid normal, trachea midline, no adenopathy. Heart--normal S1 and S2. No murmurs, rubs or gallops. Lungs--coarse breath sounds bilaterally, worse at left base. No respiratory distress, no accessory muscle use. Abdomen--normal bowel sounds and soft. Nontender. Nondistended. Extremities--no cyanosis or clubbing. No edema. Dermatologic--normal skin turgor, normal color, no abnormal lymph nodes, no rash. Neurologic--cranial nerves II through XII grossly intact. Rheumatologic--normal range of motion. Psychiatric--normal affect. Results & Data Vital Signs (Past 12 Hours) Vital Signs Temp Pulse Pulse Resp BP BP Pulse Ox 08/28/19 22:16 98.1 F 81 22 161/81 H 94 08/28/19 21:38 99.3 F 105 H 20 210/96 H 94 08/28/19 21:11 92 08/28/19 21:10 88 34 H 150/76 H 93 08/28/19 21:00 87 27 H 174/82 H 91 08/28/19 20:30 91 H 32 H 189/91 H 93 08/28/19 20:07 91 H 22 195/92 H 94 08/28/19 20:04 92 H 28 H 195/92 H 94 08/28/19 19:30 91 H 34 H 192/84 H 93 08/28/19 19:24 89 34 H 196/101 H 93 08/28/19 19:12 89 28 H 203/86 H 93 08/28/19 19:01 88 35 H 203/86 H 92 08/28/19 18:45 86 28 H 93 08/28/19 18:33 95 08/28/19 18:22 98.4 F 93 H 22 197/82 H 95 Pulse Ox 08/28/19 22:16 94 08/28/19 21:38 08/28/19 21:11 08/28/19 21:10 08/28/19 21:00 08/28/19 20:30 08/28/19 20:07 08/28/19 20:04 08/28/19 19:30 08/28/19 19:24 08/28/19 19:12 08/28/19 19:01 08/28/19 18:45 08/28/19 18:33 08/28/19 18:22 Laboratory Results Laboratory Results WBC 5.23 K/uL (4.8-10.8) 08/28/19 19:00 RBC 3.23 M/uL (4.2-5.4) L 08/28/19 19:00 Hgb 9.4 g/dL (12.0-16.0) L 08/28/19 19:00 Hct 29.1 % (37-47) L 08/28/19 19:00 MCV 90.1 fL (80-100) 08/28/19 19:00 MCH 29.1 pg (25-34) 08/28/19 19:00 MCHC 32.3 g/dL (32-36) 08/28/19 19:00 RDW Std Deviation 55.9 fL (36.4-46.3) H 08/28/19 19:00 RDW Coeff of Karina 16.9 % (11.5-14.5) H 08/28/19 19:00 Plt Count 75 K/uL (130-400) L 08/28/19 19:00 MPV 10.8 fL (7.4-10.4) H 08/28/19 19:00 Immature Gran % (Auto) 0.2 % 08/28/19 19:00 Neut % (Auto) 70.4 % 08/28/19 19:00 Lymph % (Auto) 17.4 % 08/28/19 19:00 Galax % (Auto) 8.4 % 08/28/19 19:00 Eos % (Auto) 3.4 % 08/28/19 19:00 Baso % (Auto) 0.2 % 08/28/19 19:00 Immature Gran # (Auto) 0.01 K/uL (0.00-0.02) 08/28/19 19:00 Neut # (Auto) 3.68 K/uL (1.4-6.5) 08/28/19 19:00 Lymph # (Auto) 0.91 K/uL (1.2-3.4) L 08/28/19 19:00 Galax # (Auto) 0.44 K/uL (0.11-0.59) 08/28/19 19:00 Eos # (Auto) 0.18 K/uL (0-0.5) 08/28/19 19:00 Baso # (Auto) 0.01 K/uL (0-0.2) 08/28/19 19:00 Sodium 143 mmol/L (136-145) 08/28/19 19:00 Potassium 4.1 mmol/L (3.5-5.1) 08/28/19 19:00 Chloride 114 mmol/L (98-107) H 08/28/19 19:00 Carbon Dioxide 23 mmol/L (21-32) 08/28/19 19:00 Anion Gap 5.0 (3-11) 08/28/19 19:00 BUN 39 mg/dl (7-18) H 08/28/19 19:00 Creatinine 1.63 mg/dl (0.6-1.2) H 08/28/19 19:00 Est Cr Clr Drug Dosing 32.1 ml/min 08/28/19 19:00 Est GFR ( Amer) 38.5 08/28/19 19:00 Est GFR (Non-Af Amer) 33.2 08/28/19 19:00 BUN/Creatinine Ratio 24.0 (10-20) H 08/28/19 19:00 Glucose 343 mg/dl (70-99) H* 08/28/19 19:00 POC Glucose 272 (70-99) H 08/28/19 23:17 Calcium 8.8 mg/dl (8.5-10.1) 08/28/19 19:00 Magnesium 1.6 mg/dl (1.8-2.4) L 08/28/19 23:43 Troponin I < 0.015 ng/ml (0-0.045) 08/28/19 22:28 Beta-Hydroxybutyric Acd 0.85 mg/dl (0.2-2.81) 08/28/19 19:00 Diagnostic Findings [place], [place] [phone] XRay Report Patient: GARDENIA PICHARDO Date: 08/28/19 MR#: [id number]: [address] Acct ID:[id number]: [address] [facility] Zip[facility] [place] [address] Age: 64Location: ED Sex: F Room/Bed: Att Phy:Diagnosis: SHORTNESS OF BREATH Estephania Phy: Rocío Alonso, DOService Date: 08/28/19 Fam Phy:Interpreting Phy: Devon Walton MD Admit Phy: Ordering Phy: Phil Plata D.O. cc: ~ XR chest 1V portable CLINICAL HISTORY: Atypical chest pain COMPARISON STUDY: 08/02/2019 FINDINGS: The heart is enlarged. There is a left pleural effusion with associated left lower lobe atelectasis/consolidation. There are subtle right upper lobe airspace opacities. There is suspected underlying pulmonary vascular congestion.[ IMPRESSION: 1. Cardiomegaly and radiographic evidence of mild pulmonary vascular congestion 2. Left pleural effusion with associated left lower lobe atelectasis/consolidation 3. Subtle right upper lobe airspace opacities, pulmonary edema versus pneumonia. ACT 112: Negative or not required by law. Electronically signed by: Devon Walton M.D. 08/28/2019 7:12 PM Dictated: 08/28/191910 Transcribed: 08/28/191910 Code Status & VTE Plan Code Status Full code VTE Prophylaxis Plan VTE Prophylaxis will be ordered: Yes PG Care Time/CCT Total # of Minutes Spent Total Time Spent with Patient: Total time spent is greater than 50% in coordination of care (as documented) at patient's floor/unit and/or counseling patient: (1) Iron deficiency anemia Iron deficiency anemia type: other iron deficiency Qualified Code(s): D50.8 - Other iron deficiency anemias (2) CHF (congestive heart failure) Heart failure chronicity: acute Heart failure type: unspecified Qualified Code(s): I50.9 - Heart failure, unspecified
[2019-08-29] MEDS ORDERED: dilTIAZem HCl 5 MG/ML 5 ML VIAL IV PRN (02:38)
[2019-08-29] MEDS ORDERED: PIPERACILLIN/TAZOBACTAM 3.375 GM in DEXTROSE 5% 100 ML IV SCH (04:00)
[2019-08-29 06:49] LABS: Hematocrit (blood only) 25.3 % (37-47); Hemoglobin 8.2 g/dL (12.0-16.0); Mean Corpuscular Hemoglobin 29.1 pg (25-34); Mean Corpuscular Hgb Conc 32.4 g/dL (32-36); Mean Corpuscular Volume 89.7 fL (80-100); RDW Coefficient of Variation 17.1 % (11.5-14.5); RDW Standard Deviation 55.4 fL (36.4-46.3); Red Blood Count 2.82 M/uL (4.2-5.4); White Blood Count 4.56 K/uL (4.8-10.8)
[2019-08-29 06:53] LABS: Mean Platelet Volume 10.1 fL (7.4-10.4); Platelet Count 65 K/uL (130-400)
[2019-08-29 07:00] LABS: INR 1.4 (0.9-1.1); Partial Thromboplastin Ratio 1.3; Partial Thromboplastin Time 35.8 Seconds (21.0-31.0); Prothrombin Time 13.8 Seconds (9.0-12.0)
[2019-08-29] MEDS ORDERED: BUDESONIDE 0.5 MG/2 ML VIAL (PULMICORT) NEB SCH (07:00)
[2019-08-29] MEDS: ACETAMINOPHEN 325 MG TAB PO PRN ×2 (07:22→20:13)
[2019-08-29 07:23] LABS: Albumin Level 1.7 gm/dl (3.4-5.0); BUN Creatinine Ratio 27.6 (10-20); Calcium 8.6 mg/dl (8.5-10.1); Creatinine Clr Calc Pharmacy 34.9 ml/min; Est GFR (African American) 42.2; Est GFR (Non-African American) 36.4; Potassium 4.1 mmol/L (3.5-5.1)
[2019-08-29] MEDS: FOLIC ACID 1 MG TAB PO SCH ×2 (07:23→20:49)
[2019-08-29] MEDS: ALBUT/IPRATROP 3MG/0.5MG NEB 3 ML VIAL NEB SCH ×3 (07:23→15:33)
[2019-08-29] MEDS: LACTULOSE SYRUP 20 GM/30 ML UDC PO SCH (07:23)
[2019-08-29] MEDS: carvediloL 6.25 MG TAB PO SCH ×2 (07:24→20:50)
[2019-08-29] MEDS: FERROUS SULFATE 325 MG TAB PO SCH (07:24)
[2019-08-29] MEDS: RIFAXIMIN 550 MG TABLET PO SCH ×2 (07:24→20:49)
[2019-08-29] MEDS: guaiFENesin 600 MG TABCR PO SCH (07:25)
[2019-08-29] MEDS: PANTOprazole 40 MG TAB PO SCH ×2 (07:25→20:49)
[2019-08-29 07:26] LABS: Albumin Globulin Ratio 0.3 (0.9-2); Basophils # (auto) 0.02 K/uL (0-0.2); Basophils % (auto) 0.4 %; Bilirubin,Total 1.5 mg/dl (0.2-1); Eosinophils # (auto) 0.18 K/uL (0-0.5); Eosinophils % (auto) 3.9 %; Globulin 5.8 gm/dl (2.5-4.0); Lymphocytes # (auto) 1.12 K/uL (1.2-3.4); Lymphocytes % (auto) 24.6 %; Monocytes # (auto) 0.55 K/uL (0.11-0.59); Monocytes % (auto) 12.1 %; Neutrophils # (auto) 2.69 K/uL (1.4-6.5); Total Protein 7.5 gm/dl (6.4-8.2)
[2019-08-29] MEDS: INSULIN ASPART 100 UNITS/ML 3 ML PEN SC SCH ×4 (07:30→20:50)
--- NOTE | 2019-08-29 07:30 | Hospitalist Progress Note ---
Date of Service August 29, 2019 Assessment & Plan (1) Pneumonia: Ms. Sherman is a very pleasant 64 year old female with a past medical history of hepatic cirrhosis, CKD stage III, pancytopenia, dysphagia, diabetes mellitus type 2, hyperlipidemia, depression, GERD, and restless leg syndrome who presented to [facility] due to a 3-day history of progressively worsening shortness of breath Bilateral pleural effusions and pulmonary edema -d/c zosyn and vancomycin given no evidence of infection -> patient afebrile, without elevated WCC, fever, chills or cough -suspect symptoms all related to CHF exacerbation in the setting of increased salt in diet -extensive education provided regarding salt consumption -60mg IV Lasix given in ED, additional 40mg IV Lasix given this AM -monitor response, consider additional dose tonight -resume home dose of Lasix tomorrow (40mg PO BID) as well as spironolactone -no longer requiring oxygen via nasal cannula Hypertension -Continue carvedilol 6.25 mg p.o. twice daily and losartan 100 mg p.o. every morning. Anemia -continue home iron supplementation -hgb stable at 8.2 -follows with Dr. Hylton and has an appt coming up in 2 days Pancytopenia -Related to liver cirrhosis -Platelets 65, no indication for transfusion Liver cirrhosis -felt to be secondary to MAE, however patient also reports it started after prolonged use of Cosentyx for her psoriatic arthritis (she is no longer on this medication) -no hx of alcohol abuse -EGD performed in 06/2019 showed non bleeding grade 1 esophageal varices and portal hypertensive gastropathy -Continue furosemide, lactulose, PPI, rifaximin CKD stage 3 -baseline creatinine is reportedly 1, however has been ranging from 1.2 - 2.4 on recent lab work -creatinine currently 1.51, continue to monitor History of type 2 diabetes mellitus -Patient was reportedly taken off medication due to improved glucose control -Hemoglobin A1c in 05/07 was 4.5% -glucose elevated on admission at 343 -continue ISS -outpatient f/u Right wrist injury -Patient reports that she has an appointment w/[facility] for the cast on her right forearm to be taken off on Saturday Restless leg syndrome -Continue home ropinirole Depression -Continue home venlafaxine Hypercholesterolemia -Continue home simvastatin -Continue home aspirin History of Dysphagia -had a dilation of esophagus over ten years ago -barium swallow during previous hospitalization showed esophageal spasm -longstanding issue, however dysphagia greatly improved CODE STATUS: Full DVT prophylaxis: SCDs Disposition: stable for transfer to med/surg - anticipate d/c tomorrow (2) Hypertensive urgency: (3) 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 Breathing feels a bit better now. Still not back to baseline. In discussion of her daily eating habits, leaving on a loose diet recall she expresses a lot of sodium intakeham, soup, pasta sauce. She seems to express an awareness of needing to avoid sodium but not really an understanding of why, how important it is, or how ubiquitous sodium is too high degrees in the foods that she is eating. Vitals noted, in general she is awake and alert fatigued but no distress. HEENT normocephalic atraumatic mucous membranes moist. Lungs are clear overall diminished base left no rales rhonchi or wheezes good effort, no accessory muscle use. Extremities show no cyanosis. No focal neuro deficits. Dyspneaseems most consistent with recurrent pulmonary edema, question how much her pleural effusion is also contributing. Diuresis, follow, if she still dyspneic after she seems to have been adequately diuresed, we may need to consider thoracentesis, but this is not likely to be necessary. Tried to start to educate on how sodium intake leads to fluid retention, and emphasizing the importance of tight sodium restrictionusing the analogy that's medicating her fluid balance without her restricting sodium would be analogous to giving her a towel to dry off while she still in the swimming pool. Continue education, continue diuresis, continue to follow closely clinically. Otherwise as above Subjective Ms. Sherman reports her breathing is improving slowly. She denies recent fever, chills, or cough. She states that her breathing is worst when laying flat. She states the thinks that the trigger for this episode may have been excessive salt over the past few days, and reports eating canned soup, ham and spaghetti sauce. Review of Systems Constitutional: no fever and no chills Respiratory: + dyspnea; no cough and no wheezing Cardiovascular: + edema; no chest pain, no palpitations and no calf pain Gastrointestinal: no abdominal pain, no nausea and no vomiting Physical Exam Constitutional: WD/WN, vitals as above Eyes: PERRL, conjunctivae normal, anicteric sclerae ENMT: external ear and nose normal, oropharynx normal Respiratory: normal respiratory effort Auscultation: + crackles (b/l fine crackles at lung bases) and + wheezes Cardiovascular: Rate/Rhythm: regular rate and regular rhythm Heart Sounds: + murmur (systolic murmur) Extremities: + edema 1+ edema b/l Gastrointestinal (Abdomen): normal bowel sounds, soft, nontender, no hepatosplenomegaly Skin: no rashes, warm and dry Results & Data Vital Signs (Past 12 Hours) Vital Signs Temp Pulse Pulse Resp BP BP Pulse Ox 08/29/19 07:23 95 H 16 97 08/29/19 03:39 36.4 C L 67 20 125/80 94 08/28/19 23:59 37.1 C 75 16 139/84 94 08/28/19 23:20 74 08/28/19 22:16 36.7 C 81 22 161/81 H 94 08/28/19 21:45 89 08/28/19 21:38 37.4 C 105 H 20 210/96 H 94 08/28/19 21:11 92 08/28/19 21:10 88 34 H 150/76 H 93 08/28/19 21:00 87 27 H 174/82 H 91 08/28/19 20:30 91 H 32 H 189/91 H 93 08/28/19 20:07 91 H 22 195/92 H 94 08/28/19 20:04 92 H 28 H 195/92 H 94 08/28/19 19:30 91 H 34 H 192/84 H 93 Pulse Ox 08/29/19 07:23 08/29/19 03:39 08/28/19 23:59 08/28/19 23:20 08/28/19 22:16 94 08/28/19 21:45 08/28/19 21:38 08/28/19 21:11 08/28/19 21:10 08/28/19 21:00 08/28/19 20:30 08/28/19 20:07 08/28/19 20:04 08/28/19 19:30 Resident Activity Tracking Resident Involvement: Resident Care Provided Care Provided: Adult Hospital Medicine (1) CHF (congestive heart failure) Heart failure chronicity: acute Heart failure type: unspecified Qualified Code(s): I50.9 - Heart failure, unspecified (2) Iron deficiency anemia Iron deficiency anemia type: other iron deficiency Qualified Code(s): D50.8 - Other iron deficiency anemias
[2019-08-29] MEDS ORDERED: FUROSEMIDE 40 MG in SYRINGE 0 ML IV ONE (08:30)
--- NOTE | 2019-08-29 16:38 | Billing Data ---
Date of Service August 29, 2019 Coding Level of Care Code 84671 Subseq Hosp Care Lvl 3
[2019-08-29] MEDS: ROPINIROLE HCL 1 MG TABLET PO SCH (20:49)
[2019-08-29] MEDS ORDERED: FUROSEMIDE 20 MG in SYRINGE 0 ML IV ONE (21:00)
--- NOTE | 2019-08-29 21:29 | Electrocardiogram Report ---
Test Reason : Blood Pressure : / mmHG Vent. Rate : 088 BPM Atrial Rate : 088 BPM P-R Int : 184 ms QRS Dur : 078 ms QT Int : 388 ms P-R-T Axes : 038 040 041 degrees QTc Int : 469 ms Normal sinus rhythm Nonspecific ST abnormality Abnormal ECG When compared with ECG of 02-AUG-2019 21:48, Nonspecific T wave abnormality Confirmed by Gentry Cook ([id number]) on 08/29/2019 9:28:46 PM Referred By: REFERRED SELF Confirmed By:Gentry Cook
[2019-08-30 06:43] LABS: Hematocrit (blood only) 26.6 % (37-47); Hemoglobin 8.5 g/dL (12.0-16.0); Mean Corpuscular Hemoglobin 28.7 pg (25-34); Mean Corpuscular Volume 89.9 fL (80-100); RDW Coefficient of Variation 17.1 % (11.5-14.5); RDW Standard Deviation 56.2 fL (36.4-46.3); Red Blood Count 2.96 M/uL (4.2-5.4); White Blood Count 3.75 K/uL (4.8-10.8)
[2019-08-30 06:54] LABS: Mean Platelet Volume 11.1 fL (7.4-10.4); Platelet Count 62 K/uL (130-400)
[2019-08-30 07:02] LABS: ALC (manual) 0.46 K/uL (1.2-3.4); ANC (manual) 2.86 K/uL (1.4-6.5); Eosinophils # (manual) 0.23 K/uL (0-0.5); Eosinophils % (manual) 6.1 %; Lymphocytes # (manual) 0.46 K/uL (1.2-3.4); Lymphocytes % (manual) 12.3 %; Monocytes % (manual) 5.3 %; Neutrophils # (manual) 2.86 K/uL (1.4-6.5); Neutrophils % (manual) 76.3 %; RBC Morphology Unremarkable
[2019-08-30 07:13] LABS: Albumin Level 1.8 gm/dl (3.4-5.0); Calcium 8.3 mg/dl (8.5-10.1); Creatinine Clr Calc Pharmacy 29.1 ml/min; Est GFR (African American) 33.9; Est GFR (Non-African American) 29.2
[2019-08-30 07:16] LABS: Albumin Globulin Ratio 0.3 (0.9-2); Bilirubin,Total 1.3 mg/dl (0.2-1); Globulin 5.9 gm/dl (2.5-4.0); Total Protein 7.7 gm/dl (6.4-8.2)
[2019-08-30] MEDS: RIFAXIMIN 550 MG TABLET PO SCH (08:54)
[2019-08-30] MEDS: PANTOprazole 40 MG TAB PO SCH (08:54)
[2019-08-30] MEDS: FOLIC ACID 1 MG TAB PO SCH (08:55)
[2019-08-30] MEDS: FERROUS SULFATE 325 MG TAB PO SCH (08:55)
[2019-08-30] MEDS: LACTULOSE SYRUP 20 GM/30 ML UDC PO SCH (08:55)
[2019-08-30] MEDS: carvediloL 6.25 MG TAB PO SCH (08:57)
[2019-08-30] MEDS: INSULIN ASPART 100 UNITS/ML 3 ML PEN SC SCH ×2 (08:59→13:29)
[2019-08-30] MEDS ORDERED: SPIRONOLACTONE 25 MG TAB PO SCH (09:00)
[2019-08-30] MEDS ORDERED: LOSARTAN POTASSIUM 50 MG TAB PO SCH (09:00)
[2019-08-30] MEDS ORDERED: FUROSEMIDE 40 MG TAB PO SCH (09:00)
[2019-08-30] MEDS ORDERED: MICONAZOLE NITRATE POWDER 43 GM EXT PRN (10:24)
--- NOTE | 2019-08-30 15:30 | Discharge Summary ---
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 She was most recently admitted to [facility] from 08/03-08/09 due to shortness of breath associated with left-sided pleural effusion, symptomatic anemia and fluid overload. She did report getting back toward normal, but then was exposed to other people with respiratory processes, and developed the present symptoms that brought her in to the ED today. Admission Exam Per Admitting Provider The patient is awake, alert and oriented 3, normocephalic and atraumatic, sitting upright in bed and in no acute distress. HEENT--PERRL, EOMI, mucous membranes and oropharynx dry. Neck--supple. No JVD. No bruits. Thyroid normal, trachea midline, no adenopathy. Heart--normal S1 and S2. No murmurs, rubs or gallops. Lungs--coarse breath sounds bilaterally, worse at left base. No respiratory distress, no accessory muscle use. Abdomen--normal bowel sounds and soft. Nontender. Nondistended. Extremities--no cyanosis or clubbing. No edema. Dermatologic--normal skin turgor, normal color, no abnormal lymph nodes, no rash. Neurologic--cranial nerves II through XII grossly intact. Rheumatologic--normal range of motion. Psychiatric--normal affect. Principal Diagnosis CHF exacerbation Discharge Exam Constitutional WD/WN, vitals as above Eyes PERRL, conjunctivae normal, anicteric sclerae Respiratory normal respiratory effort Auscultation: + crackles (b/l fine crackles at lung bases) Cardiovascular Rate/Rhythm: regular rate and regular rhythm Heart Sounds: + murmur (systolic murmur) Extremities: + edema Gastrointestinal (Abdomen) normal bowel sounds, soft, nontender, no hepatosplenomegaly Skin no rashes, warm and dry Discharge Data Allergies Allergy/AdvReac Type Severity Reaction Status Date / Time Sulfa (Sulfonamide Allergy Mild Rash Verified 08/28/19 19:54 Antibiotics) sulfamethoxazole Allergy Mild RASH Verified 08/28/19 19:54 trimethoprim Allergy Mild RASH Verified 08/28/19 19:54 Bactrim Allergy Unknown RASH Verified 08/17/14 08:01 amlodipine AdvReac Intermediate confusion Verified 08/28/19 19:54 adhesive tape AdvReac Mild ITCHING Verified 08/28/19 19:54 Consultations 08/28/19 20:18 ED Decision to Admit Stat 08/28/19 22:16 Consult Case Management - Discharge Planning Routine 08/30/19 15:25 Consult [facility] director personal Routine Hospital Course (1) Pneumonia: Ms. Sherman is a very pleasant 64 year old female with a past medical history of hepatic cirrhosis, CKD stage III, pancytopenia, dysphagia, diabetes mellitus type 2, hyperlipidemia, depression, GERD, and restless leg syndrome who presented to [facility] due to a 3-day history of progressively worsening shortness of breath Bilateral pleural effusions and pulmonary edema -initially treated with zosyn and vancomycin given concern for pneumonia, however there was no evidence of infection -> patient afebrile, without elevated WCC, fever, chills or cough. This was discontinued -suspect symptoms all related to CHF exacerbation in the setting of increased salt in diet -extensive education provided regarding salt consumption -Treated with IV Lasix, net negative 1.8L on discharge -able to ambulate in hallway, pulse ox stayed >92% on room air -continue home lasix and spironolactone -Lasix held on day of discharge given creatinine increased from 1.5 to 1.8, recommend recheck of BMP this week with PCP Hypertension -Continue carvedilol 6.25 mg p.o. twice daily and losartan 100 mg p.o. every morning. Anemia -continue home iron supplementation -hgb stable at 8.5 -follows with Dr. Hylton and has an appt coming up tomorrow Pancytopenia -Related to liver cirrhosis -Platelets 62, no indication for transfusion Liver cirrhosis -felt to be secondary to MAE, however patient also reports it started after prolonged use of Cosentyx for her psoriatic arthritis (she is no longer on this medication) -no hx of alcohol abuse -EGD performed in 06/2019 showed non bleeding grade 1 esophageal varices and portal hypertensive gastropathy -Continue furosemide, lactulose, PPI, rifaximin CKD stage 3 -baseline creatinine is reportedly 1, however has been ranging from 1.2 - 2.4 on recent lab work -creatinine currently 1.81, recommend recheck in clinic later this week History of type 2 diabetes mellitus -continue home ISS -Hemoglobin A1c in 05/07 was 4.5% Right wrist injury -Patient reports that she has an appointment w/[facility] med for the cast on her right forearm to be taken off on Saturday Restless leg syndrome -Continue home ropinirole Depression -Continue home venlafaxine Hypercholesterolemia -Continue home simvastatin -Continue home aspirin History of Dysphagia -had a dilation of esophagus over ten years ago -barium swallow during previous hospitalization showed esophageal spasm -longstanding issue, however dysphagia greatly improved CODE STATUS: Full DVT prophylaxis: SCDs Disposition: discharged home with home health (2) Hypertensive urgency: (3) 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: (4) CHF (congestive heart failure): (5) Peptic ulcer disease: (6) Iron deficiency anemia: (7) Right forearm injury: Total Time Total Time Spent Total Time Spent (In Minutes): <30 Discharge Plan Discharge Items Patient Disposition: Home - Home Health Services Reason For Visit: PNEUMONIA Discharge Diagnosis: Volume overload Activity: Resume your previous activity Non-emergency contact: Primary Care Provider Call non-emergency contact if: you have any medication questions, your symptoms worsen and your temperature is above 101 Follow-up/Referrals: Rocío Alonso, [Primary Care Provider] - Diet: Carb Consistent or DM2 and Low Sodium (2gm) Addtl Attending Provider Instructions: Ms. Sherman, you were admitted to [facility] due to shortness of breath. Your symptoms were due to fluid in your lungs, and we treated you with IV Lasix. We are including discharge instructions below to hopefully help you manage your fluid balance better, so that we can keep you out of the hospital! We are not making any changes to your medications. Please follow up with your family doctor, and keep your scheduled appointments with Dr. Hylton and [facility]. We will be setting up an appointment for you with your family doctor. If you do not hear from us in the next 48 hours, please call us or make an appointment directly with them. Congestive Heart Failure essentially means your heart is able to have a "traffic jam" of fluid that backs up into your lungs. Fluid in lungs then blocks up breathing space making you feel short of breath. In the hospital, our job is to get the fluid off so that you are able to breathe better, and then get you back on track with medication and lifestyle adjustments to keep the traffic jam from happening again. Salt (Sodium) The vast majority of people admitted to the hospital with fluid back up into the lungs get there because of too much salt in their diet. The way our kidneys work: when you take a small amount of sodium, your kidneys hold onto a small amount of water. When you take a large amount of sodium, your kidneys hold onto a large amount of water. When this happens, your blood vessels get flooded, your heart gets overfilled, and the fluid backs up into your lungs. Most people know to avoid the salt shaker, but sodium is in almost anything prepackaged/prepared, as a preservative or as a flavoring agent. Most of the people we take care of who are here with congestive heart failure caused by too much sodium do not use a salt shaker at all. Get into the habit of looking at food labels, so you can see how much sodium is in the foods you eat. The most important number to look at is how much sodium is in each serving. But also notice the size of a serving. [employer] will frequently make a serving size so tiny that it does not look like there is much sodium per serving, but a normal person might eat 3 or 4 servings of the food and take in a lot more sodium than they realized. Keep a "budget" of how much sodium you take in in each day. Most people stay out of trouble and stay out of the hospital as long as they stay "under budget". The majority of congestive heart failure patients do well if they take less than 2000 mg of sodium a day. Because our kidneys retain water based on how much sodium they are seeing in any given moment, it is also important to stay at less than about 500 mg in any given meal. This is because even if you stayed at less than 2000 mg of sodium, but ate it all at once, your kidneys would retain fluid at a rate as though you are taking in much more sodium than you actually are. Occasionally your doctor may specifically recommend restricting even further (such as less than 1500mg per day) so if you have been told to be even stricter with sodium, please follow that advice. -Following How You Are Doing (Wet Versus Dry) Because managing congestive heart failure is an ongoing process, it is very important to learn how to follow your signs and symptoms and track how you are doing at home. This will allow you to catch problems before they become a big deal. In general, as your health care team, we look at managing congestive heart failure chronically as a balance of being "wet" (flooded with fluid) versus being "dry" (dehydrated from treatment). Wet - signs of fluid retention that would warrant further evaluation: Check your weight daily. If your weight goes up by more than 2 pounds in 1 day, it is almost certainly fluid related. This should warrant further thought, and/or a call to your doctor Follow your breathingmost of the time, early on when fluid backs up into your l ungs, you will first start to notice shortness of breath when walking, or when lying flat. If you notice either of these, this should warrant further thought, and/or a call to your doctor If you notice both an increase in weight and worsening breathing, that definitely warrants getting seen as soon as possible "Dry"while the goal of managing the disease is to keep you from getting "wet, the medications can sometimes cause a degree of dehydration. Most people with congestive heart failure need frequent lab work (basic metabolic panel). Generally when there has been a change in diuretic dosing (a change in the water pill) or any other major changes, lab work should be followed closely and more frequently afterwards. This is because lab work will frequently show early signs of dehydration before you start to feel bad. Frequent symptoms of being dehydrated include: feeling weak and lightheaded, having lower blood pressures, making less urine than usual, or having a very dry mouth. If you notice any of these signs/symptoms, and you are not due for lab work, it would be quite reasonable to call your doctor to see if lab work or a visit could be arranged. Heart Failure Management Checklist: Limit Salt (Sodium) Intake to 2000mg (2g) per day and 500mg (0.5g) per meal Check weight daily (in same clothes, without shoes) every morning Use the provided chart to enter your weight and salt intake for the day Are you too wet? If you gained 2lb or more - make sure to take your water pill If your breathing is not good (you are more short of breath than usual) call your doctor regardless of weight change If you gained 2lb or more and you are short of breath, see your doctor or come to the emergency room Are you too dry? If you feel weak or lightheaded, have lower blood pressures, make less urine than usual, or have a very dry mouth. Call your doctor Pending Studies at Discharge: No Stand-Alone Forms: My [facility], Smoking Cessation Medications and DC Order Prescriptions: Continued (DME) adhesive bandage bandage See Dose Instructions .ROUTE .MEDSUPPLY Qty: 20 RF: 5 potassium chloride 20 mEq tablet extended release 20 meq PO BID Qty: 60 RF: 1 ferrous sulfate 325 mg (65 mg iron) tablet 325 mg PO QAM RF: 0 (DME) walker misc See Dose Instructions .ROUTE .MEDSUPPLY Qty: 1 RF: 0 furosemide 40 mg tablet 40 mg PO BID Qty: 60 RF: 5 Xifaxan 550 mg tablet 550 mg PO BID Qty: 60 RF: 2 ropinirole 2 mg tablet 2 mg PO HS Qty: 30 RF: 5 folic acid 1 mg tablet 1 mg PO BID Qty: 60 RF: 0 carvedilol 6.25 mg Tablet 6.25 mg PO BID Qty: 60 RF: 0 fluticasone propionate 50 mcg/actuation spray,suspension 2 sprays INTNAS DAILY PRN (Reason: Allergy Symptoms) RF: 0 spironolactone 50 mg tablet 50 mg PO QAM RF: 0 lactulose 20 gram/30 mL solution 30 ml PO QAM RF: 0 losartan 100 mg tablet 100 mg PO QAM RF: 0 Prilosec OTC 20 mg tablet,delayed release (DR/EC) 20 mg PO BID RF: 0 Basaglar KwikPen U-100 Insulin 100 unit/mL (3 mL) insulin pen See Rx Instructions .ROUTE .COMPLEX PRN (Reason: Hyperglycemia) RF: 0 Discharge Orders: Discharge Order (Routine); Ordered 08/30/19 Ordered By: Connie Mcknight Admission Data Admit Date/Time: 08/28/19 20:47 Attending Provider: Williams Galvez Admit Provider: Anand Wagner Primary Care Provider: Rocío Alonso Other Providers: Anand Wagner Other Interventions: Discharge Summary Assessment (RN) Last Done: 08/30/19 16:07 DC Date/Time DO NOT enter until pt leaves facility: 08/30/19 16:46 Supervising Physician Co-Signing Physician Notes I personally examined the patient and verified all constantino points of history and exam, discussed case, and agree with decision making with Dr Mcknight. Breathing continues to feel better. Noted feeling a bit short winded whenever she went to the bathroom and got ready, but did okay to walk around the hallway with nursing, was not hypoxic, and actually wanted to walk further. Vitals noted, in general she is awake and alert fatigued but no distress. HEENT normocephalic atraumatic mucous membranes moist. Lungs are clear overall diminished bibasilar no rales rhonchi or wheezes good effort, no accessory muscle usebetter air entry than yesterday. Extremities show no cyanosis. No focal neuro deficits. Dyspneaseems most consistent with recurrent pulmonary edema, question how much her pleural effusion is also contributing. Has improved well enough to be safe for home, reiterated verbally and in writing the critical importance of the sodium restriction, Lasix and close follow-up. If she continues to remain dyspneic, then thoracentesis may need to be pursued as an outpatient, but it does not appear necessary at this time given her progress. With the elevation in her creatinine I suspect we are as diuresed as she can be at the current time, she will be discharged home to start her oral diuretic regimen tomorrow, close PCP follow-up, basic metabolic panel later this week as well. Otherwise as above Resident Activity Tracking Resident Involvement: Resident Care Provided Care Provided: Adult Hospital Medicine
--- NOTE | 2019-08-30 17:16 | Billing Data ---
Date of Service August 30, 2019 Coding Level of Care Code D/C Day Management <30 mins
== END 2019-08-30 16:46 | disposition home health service (06) | DRG 292 ==
LOC: ED 18:18 → 2E 20:47 → SUATTDRO 20:47 → 2E 21:21 → 2N 08-29 15:24

== ENCOUNTER 2019-09-07 18:16 | Inpatient (IN) ==
[2019-09-07] MEDS ORDERED: ACETAMINOPHEN 1,000 MG/100 ML VIAL IV STA (18:31)
[2019-09-07] MEDS ORDERED: ONDANSETRON INJ 2 MG/ML 2 ML VIAL IV STA (18:31)
[2019-09-07] MEDS ORDERED: HYDROmorphone INJ 0.5 MG/0.5 ML SYR IV PRN (18:31)
--- NOTE | 2019-09-07 19:04 | XRay Report ---
XR chest 1V portable CLINICAL HISTORY: Chest Pain dyspnea COMPARISON STUDY: 08/28/2019 FINDINGS: Moderate stable cardiomegaly. Infiltrate and effusion left lung base unaltered from the jamal or exam. Right lung is clear. IMPRESSION: Infiltrate and effusion left base. This is unchanged from the prior study. ACT 112: Negative or not required by law. The above report was generated using voice recognition software. It may contain grammatical, syntax or spelling errors. Electronically signed by: Valente Ponce M.D. 09/07/2019 7:03 PM
[2019-09-07 19:24] LABS: Hematocrit (blood only) 27.5 % (37-47); Hemoglobin 8.7 g/dL (12.0-16.0); Mean Corpuscular Hemoglobin 28.8 pg (25-34); Mean Corpuscular Hgb Conc 31.6 g/dL (32-36); Mean Corpuscular Volume 91.1 fL (80-100); RDW Coefficient of Variation 17.9 % (11.5-14.5); RDW Standard Deviation 59.5 fL (36.4-46.3); Red Blood Count 3.02 M/uL (4.2-5.4); White Blood Count 4.66 K/uL (4.8-10.8)
[2019-09-07] MEDS ORDERED: PIPERACILLIN/TAZOBACTAM 4.5 GM/120 ML BAG IV ONE (19:33)
[2019-09-07] MEDS ORDERED: VANCOMYCIN HCL 1,000 MG in SODIUM CHLORIDE 0.9% 500 ML IV ONE (19:33)
[2019-09-07] MEDS ORDERED: LEVOFLOXACIN/D5W 750 MG/150 ML BAG IV STA (19:33)
[2019-09-07] MEDS ORDERED: PIPERACILL/TAZOBAC CONSULT ACTIVE PRN (19:33)
[2019-09-07] MEDS ORDERED: VANCOMYCIN CONSULT ACTIVE PRN (19:33)
[2019-09-07 19:46] LABS: Alanine Aminotransferase 27 U/L (12-78); Albumin Level 1.9 gm/dl (3.4-5.0); BUN Creatinine Ratio 26.5 (10-20); Blood Urea Nitrogen 49 mg/dl (7-18); Calcium 8.3 mg/dl (8.5-10.1); Carbon Dioxide 22 mmol/L (21-32); Chloride 116 mmol/L (98-107); Est GFR (Non-African American) 28.5; Glucose 246 mg/dl (70-99); Lipase 140 U/L (73-393); Sodium 141 mmol/L (136-145)
[2019-09-07 19:53] LABS: Albumin Globulin Ratio 0.3 (0.9-2); Alkaline Phosphatase 264 U/L (45-117); Globulin 6.8 gm/dl (2.5-4.0); NT Pro B Type Natriuretic Pept 5214 pg/ml (0-900); Total Protein 8.7 gm/dl (6.4-8.2); Troponin I < 0.015 ng/ml (0-0.045)
[2019-09-07 19:57] LABS: Appearance Urine Clear (Clear); Bacteria Urine Automated Negative (Negative); Bilirubin Urine Negative (Negative); Blood Urine 2+ (Negative); Color Urine Dark Yellow; Epithelial Cell Urine Auto >30 /lpf (0-5); Glucose Urine UA Negative (Negative); Ketones Urine Negative (Negative); Leukocyte Esterase Urine 1+ (Negative); Nitrite Urine Negative (Negative); Protein Urine 2+ (Negative); Specific Gravity Urine 1.015 (1.000-1.030); Urobilinogen Urine Negative (Negative)
[2019-09-07 20:27] LABS: Influenza A virus by PCR Neg for Influ A (Neg); Influenza B virus by PCR Neg for Influ B (Neg)
[2019-09-07 20:37] LABS: Mean Platelet Volume 10.4 fL (7.4-10.4); Platelet Count 78 K/uL (130-400)
[2019-09-07 20:39] LABS: Basophils # (auto) 0.02 K/uL (0-0.2); Basophils % (auto) 0.4 %; Eosinophils # (auto) 0.12 K/uL (0-0.5); Eosinophils % (auto) 2.6 %; Immature Granulocytes # (auto) 0.01 K/uL (0.00-0.02); Immature Granulocytes % (auto) 0.2 %; Lymphocytes # (auto) 0.93 K/uL (1.2-3.4); Monocytes # (auto) 0.49 K/uL (0.11-0.59); Monocytes % (auto) 10.5 %; Neutrophils # (auto) 3.09 K/uL (1.4-6.5); Neutrophils % (auto) 66.3 %
--- NOTE | 2019-09-07 21:54 | History & Physical Report ---
Date of Service September 07, 2019 Assessment & Plan (1) Pneumonia: Persistent pneumonia left lower lobe with parapneumonic effusion/resolved right upper lobe pneumonia. Continue vancomycin IV, Zosyn IV and levofloxacin IV begun in ED. Present on Admission?: Yes (2) CHF (congestive heart failure): Albumin 25 g IV and Lasix 40 mg IV twice daily. Albumin 1.9 upon admission. Discussed dietary intake. Present on Admission?: Yes (3) 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: Follow serial laboratories Continue rifaximin, folic acid, lactulose and spironolactone. Present on Admission?: Yes (4) Iron deficiency anemia: Continue iron supplements Present on Admission?: Yes (5) Hypertension: Continue carvedilol 6.25 mg p.o. twice daily. Hold losartan due to acute kidney injury. Present on Admission?: Yes (6) Peptic ulcer disease: Pantoprazole 40 mg p.o. daily Present on Admission?: Yes History of Present Illness Chief Complaint: The patient presents to the emergency department with a recurrence of shortness of breath and dyspnea on exertion. Primary Care Provider: Rocío Alonso DO The patient is a 64-year-old female with a past medical history including pneumonia, hypertensive urgency, liver cirrhosis secondary to MAE, iron deficiency anemia, hypertension, depression, CHF, pulmonary hypertension, mitral vegetation, peptic ulcer disease, dyslipidemia, diabetic peripheral neuropathy, rheumatoid arthritis, GERD and CKD stage III. She was most recently omitted from 08/03/2019-08/09/2019 for similar symptoms. She reports that she has been monitoring her sodium intake as directed. And has been trying to eat 1-2 nutritional drinks daily, but her appetite overall is diminished. She does report an intermittent cough which is nonproductive. Allergies Allergy/AdvReac Type Severity Reaction Status Date / Time Sulfa (Sulfonamide Allergy Mild Rash Verified 09/07/19 19:28 Antibiotics) sulfamethoxazole Allergy Mild RASH Verified 09/07/19 19:28 trimethoprim Allergy Mild RASH Verified 09/07/19 19:28 Bactrim Allergy Unknown RASH Verified 08/17/14 08:01 amlodipine AdvReac Intermediate confusion Verified 09/07/19 19:28 adhesive tape AdvReac Mild ITCHING Verified 09/07/19 19:28 Home Medications Home Medications Medication Instructions Recorded Confirmed Type ferrous sulfate 325 mg (65 mg 325 mg PO QAM tab 01/28/19 09/07/19 History iron) tablet adhesive bandage #20 ea 05/18/19 08/20/19 Rx rifaximin 550 mg tablet 550 mg PO BID #60 tab 06/02/19 09/07/19 Rx walker #1 ea 06/25/19 08/20/19 Rx furosemide 40 mg tablet 40 mg PO BID #60 tab 06/30/19 09/07/19 Rx potassium chloride 20 mEq 20 meq PO BID #60 tab 06/30/19 09/07/19 Rx tablet,extended release fluticasone propionate 2 sprays INTNAS DAILY PRN 07/13/19 09/07/19 History lactulose 30 ml PO QAM 07/13/19 09/07/19 History spironolactone 50 mg PO QAM 07/13/19 09/07/19 History carvedilol 6.25 mg PO BID #60 tab 08/09/19 09/07/19 Rx folic acid 1 mg tablet 1 mg PO BID #60 tab 08/20/19 09/07/19 Rx ropinirole 2 mg tablet 2 mg PO HS #30 tab 08/20/19 09/07/19 Rx Basaglar KwikPen U-100 Insulin See Rx Instructions .ROUTE 08/28/19 09/07/19 History .COMPLEX PRN losartan 100 mg PO QAM 08/28/19 09/07/19 History pantoprazole 40 mg PO QAM 09/07/19 09/07/19 History Past Med/Surg History Medical History Anemia Anxiety Cardiac murmur Diabetes mellitus, type 2 Diverticular disease Duodenal ulcer Esophageal varices Gastric ulcer GERD (gastroesophageal reflux disease) History of recent blood transfusion 06/2019 Hyperlipidemia Hypertension Liver cirrhosis Nausea and vomiting after administration of anesthetic agent Osteoarthritis Psoriatic arthritis Restless leg syndrome Right forearm injury Surgical History History of anesthesia reaction difficult to wake after bladder tack sx History of bilateral cataract extraction History of bladder surgery bladder tack History of colonoscopy History of esophagogastroduodenoscopy (EGD) multiple---last 06/22/19 Dr. Malena Marie at [facility] [place] History of hemiarthroplasty of right shoulder January 2018 post fracture History of repair of right rotator cuff History of revision of total shoulder arthroplasty Right shoulder, 12/29/18 History of tooth extraction all teeth S/P ORIF (open reduction internal fixation) fracture R shoulder, January 2018 Family History Grandmother (Paternal) Family history of diabetes mellitus Father COPD (chronic obstructive pulmonary disease) Mother Hypertension Family/Other Cancer Sister Ovarian cancer Social History Preferred Language: Nauruan Communication Ability: Effective Visual Impairment: Limited Hearing Ability: Normal It Business Systems Analyst Required: No Beliefs That Will Affect Care: None marital status: Current Living Situation: Spouse Current Living Situation Comment: Lives with and son current occupational status: retired Feels Safe at Home: Yes Smoking Status: Unknown if ever smoked Hx Alcohol Use: No Hx Substance Use: No Childhood Exposure to Second-Hand Smoke: Yes Other Diet Comment: regular Dental Care, Regularly: No Physical Activity Frequency: Does not Exercise Seatbelt Use: sometimes Review of Systems Review of Systems: The patient denies palpitations, sore throat, fevers, chills, sweats, nausea, vomiting, diarrhea , constipation, abdominal pain, pelvic pain, blood in urine or stool, dysuria, urinary frequency or urgency, lightheadedness, dizziness, headache, memory loss, loss of consciousness, focal weakness, numbness or tingling in arms or legs, back or neck pain, or night sweats. The review of systems is otherwise negative other than for that already noted above, and at least 10 systems have been reviewed. Physical Exam Physical Exam: The patient is awake, alert and oriented 3, normocephalic and atraumatic, lying in bed and in no acute distress. HEENT--PERRL, EOMI, mucous membranes and oropharynx dry. Neck--supple. No JVD. No bruits. Thyroid normal, trachea midline, no adenopathy. Heart--normal S1 and S2. No murmurs, rubs or gallops. Lungs--crackles at the bases bilaterally. No respiratory distress, no accessory muscle use. Abdomen--normal bowel sounds and soft. Nontender. Nondistended. Extremities--2+ bilateral pretibial pitting edema Dermatologic--normal skin turgor, normal color, no abnormal lymph nodes, no rash. Neurologic--cranial nerves II through XII grossly intact. Rheumatologic--normal range of motion. Psychiatric--normal affect. Results & Data Vital Signs (Past 12 Hours) Vital Signs Temp Pulse Pulse Resp BP BP Pulse Ox 09/07/19 20:46 67 20 159/90 H 88 L 09/07/19 20:16 69 26 H 168/79 H 94 09/07/19 19:16 70 25 H 94 09/07/19 18:18 97.5 F L 68 20 183/93 H 95 Laboratory Results Laboratory Results WBC 4.66 K/uL (4.8-10.8) L 09/07/19 19:10 RBC 3.02 M/uL (4.2-5.4) L 09/07/19 19:10 Hgb 8.7 g/dL (12.0-16.0) L 09/07/19 19:10 Hct 27.5 % (37-47) L 09/07/19 19:10 MCV 91.1 fL (80-100) 09/07/19 19:10 MCH 28.8 pg (25-34) 09/07/19 19:10 MCHC 31.6 g/dL (32-36) L 09/07/19 19:10 RDW Std Deviation 59.5 fL (36.4-46.3) H 09/07/19 19:10 RDW Coeff of Karina 17.9 % (11.5-14.5) H 09/07/19 19:10 Plt Count 78 K/uL (130-400) L 09/07/19 19:10 MPV 10.4 fL (7.4-10.4) 09/07/19 19:10 Immature Gran % (Auto) 0.2 % 09/07/19 19:10 Neut % (Auto) 66.3 % 09/07/19 19:10 Lymph % (Auto) 20.0 % 09/07/19 19:10 Cloud % (Auto) 10.5 % 09/07/19 19:10 Eos % (Auto) 2.6 % 09/07/19 19:10 Baso % (Auto) 0.4 % 09/07/19 19:10 Immature Gran # (Auto) 0.01 K/uL (0.00-0.02) 09/07/19 19:10 Neut # (Auto) 3.09 K/uL (1.4-6.5) 09/07/19 19:10 Lymph # (Auto) 0.93 K/uL (1.2-3.4) L 09/07/19 19:10 Cloud # (Auto) 0.49 K/uL (0.11-0.59) 09/07/19 19:10 Eos # (Auto) 0.12 K/uL (0-0.5) 09/07/19 19:10 Baso # (Auto) 0.02 K/uL (0-0.2) 09/07/19 19:10 Sodium 141 mmol/L (136-145) 09/07/19 19:10 Potassium 4.0 mmol/L (3.5-5.1) 09/07/19 20:03 Chloride 116 mmol/L (98-107) H 09/07/19 19:10 Carbon Dioxide 22 mmol/L (21-32) 09/07/19 19:10 Anion Gap 3.0 (3-11) 09/07/19 19:10 BUN 49 mg/dl (7-18) H 09/07/19 19:10 Creatinine 1.85 mg/dl (0.6-1.2) H 09/07/19 19:10 Est Cr Clr Drug Dosing Not Reportable 09/07/19 19:10 Est GFR ( Amer) 33.0 09/07/19 19:10 Est GFR (Non-Af Amer) 28.5 09/07/19 19:10 BUN/Creatinine Ratio 26.5 (10-20) H 09/07/19 19:10 Glucose 246 mg/dl (70-99) H 09/07/19 19:10 POC Glucose 225 mg/dl (70-99) H 09/07/19 22:29 Calcium 8.3 mg/dl (8.5-10.1) L 09/07/19 19:10 Magnesium 1.9 mg/dl (1.8-2.4) 09/07/19 19:10 Total Bilirubin 1.0 mg/dl (0.2-1) 09/07/19 19:10 AST 27 U/L (15-37) 09/07/19 20:03 ALT 27 U/L (12-78) 09/07/19 19:10 Alkaline Phosphatase 264 U/L (45-117) H 09/07/19 19:10 Total Creatine Kinase 43 U/L (26-192) 09/07/19 20:03 CK-MB (CK-2) 4.0 ng/ml (0.5-3.6) H 09/07/19 19:10 CK/CKMB % Calc TNP 09/07/19 19:10 Troponin I < 0.015 ng/ml (0-0.045) 09/07/19 19:10 NT-Pro-B Natriuret Pep 5214 pg/ml (0-900) H 09/07/19 19:10 Total Protein 8.7 gm/dl (6.4-8.2) H 09/07/19 19:10 Albumin 1.9 gm/dl (3.4-5.0) L 09/07/19 19:10 Globulin 6.8 gm/dl (2.5-4.0) H 09/07/19 19:10 Albumin/Globulin Ratio 0.3 (0.9-2) L 09/07/19 19:10 Lipase 140 U/L (73-393) 09/07/19 19:10 Urine Color Dark Yellow 09/07/19 19:40 Urine Appearance Clear (Clear) 09/07/19 19:40 Urine pH 5.0 (4.5-7.5) 09/07/19 19:40 Ur Specific [place] 1.015 (1.000-1.030) 09/07/19 19:40 Urine Protein 2+ (Negative) H 09/07/19 19:40 Urine Glucose (UA) Negative (Negative) 09/07/19 19:40 Urine Ketones Negative (Negative) 09/07/19 19:40 Urine Blood 2+ (Negative) H 09/07/19 19:40 Urine Nitrite Negative (Negative) 09/07/19 19:40 Urine Bilirubin Negative (Negative) 09/07/19 19:40 Urine Urobilinogen Negative (Negative) 09/07/19 19:40 Ur Leukocyte Esterase 1+ (Negative) H 09/07/19 19:40 Urine WBC (Auto) 1-5 /hpf (0-5) 09/07/19 19:40 Urine RBC (Auto) 10-30 /hpf (0-4) H 09/07/19 19:40 U Hyaline Cast (Auto) 1-5 /lpf (0-5) 09/07/19 19:40 U Epithel Cells (Auto) >30 /lpf (0-5) H 09/07/19 19:40 Urine Bacteria (Auto) Negative (Negative) 09/07/19 19:40 Influenza Type A (PCR) Neg for Influ A (Neg) 09/07/19 19:30 Influenza Type B (PCR) Neg for Influ B (Neg) 09/07/19 19:30 Blood Type O Positive 09/07/19 20:03 Antibody Screen NEGATIVE 09/07/19 20:03 Diagnostic Findings [place] [phone] XRay Report Patient: GARDENIA PICHARDO Date: 09/07/19 MR#: [id number]: [address] [place] [address] Acct ID:[id number]: [address] Date: [address] [facility] Zip: [place] [address] Age: 64Location: ED Sex: F Room/Bed: Att Phy:Diagnosis: SOB Estephania Phy: Rocío Alonso, DOService Date: 09/07/19 Fam Phy:Interpreting Phy: Valente Ponce MD Admit Phy: Ordering Phy: Phil Owens MD cc: ~ XR chest 1V portable CLINICAL HISTORY: Chest Pain dyspnea COMPARISON STUDY: 08/28/2019 FINDINGS: Moderate stable cardiomegaly. Infiltrate and effusion left lung base unaltered from the prior exam. Right lung is clear. IMPRESSION: Infiltrate and effusion left base. This is unchanged from the prior study. ACT 112: Negative or not required by law. The above report was generated using voice recognition software. It may contain grammatical, syntax or spelling errors. Electronically signed by: Valente Ponce M.D. 09/07/2019 7:03 PM Dictated: 09/07/191901 Transcribed: 09/07/191901 Code Status & VTE Plan Code Status Full code VTE Prophylaxis Plan VTE Prophylaxis will be ordered: Yes PG Care Time/CCT Total # of Minutes Spent Total Time Spent with Patient: Total time spent is greater than 50% in coordination of care (as documented) at patient's floor/unit and/or counseling patient: (1) Pneumonia Laterality: left Lung location: unspecified part of lung Pneumonia type: due to unspecified organism Qualified Code(s): J18.9 - Pneumonia, unspecified organism (2) Iron deficiency anemia Iron deficiency anemia type: other iron deficiency Qualified Code(s): D50.8 - Other iron deficiency anemias (3) CHF (congestive heart failure) Heart failure chronicity: acute Heart failure type: unspecified Qualified Code(s): I50.9 - Heart failure, unspecified
[2019-09-07] MEDS ORDERED: CARBOHYDRATES FOR HYPOGLYCEMIA PO PRN (21:56)
[2019-09-07] MEDS ORDERED: GLUCAGON FOR INJ 1 MG VIAL SQ PRN (21:56)
[2019-09-07] MEDS ORDERED: HEPARIN SOD 5,000 UNIT/0.5 ML VIAL SQ SCH (21:56)
[2019-09-07] MEDS ORDERED: MAGNESIUM HYDROXIDE SUSP 30 ML UDC PO PRN (21:56)
[2019-09-07] MEDS ORDERED: GLUCOSE 10 TABS/TUBE PO PRN (21:56)
[2019-09-07] MEDS ORDERED: FLUTICASONE PROPIONATE NA SPR 16 GM BTL NAE PRN (21:56)
[2019-09-07] MEDS ORDERED: DEXTROSE 50% 50 ML SYRINGE IV PRN (21:56)
[2019-09-07] MEDS ORDERED: GLUCOSE 40% GEL 15 GM TUBE PO PRN (21:56)
[2019-09-07] MEDS: ALBUMIN 25% 50 ML with FUROSEMIDE 40 MG IV SCH (22:36)
[2019-09-07] MEDS: FOLIC ACID 1 MG TAB PO SCH (22:37)
[2019-09-07] MEDS: carvediloL 6.25 MG TAB PO SCH (22:37)
[2019-09-07] MEDS: RIFAXIMIN 550 MG TABLET PO SCH (22:38)
[2019-09-07] MEDS: ROPINIROLE HCL 1 MG TABLET PO SCH (22:38)
[2019-09-07] MEDS: POTASSIUM CHLORIDE 20 MEQ TABCR PO SCH (22:38)
[2019-09-08] MEDS ORDERED: VANCOMYCIN HCL 750 MG in SODIUM CHLORIDE 0.9% 250 ML IV SCH
--- NOTE | 2019-09-08 01:58 | Emergency Department Note ---
Entered by Susana Pressley acting as a scribe for History of Present Illness General Chief complaint: Shortness of Breath/Dyspnea Stated complaint: SOB Time Seen by Provider: 09/07/19 18:23 Source: patient History of Present Illness Onset (ago): week(s) (10) Location: chest Pain Consistency: + other (worsening) Quality: + other (shortness of breath) Associated symptoms: + cough; no fever/chills The patient is a 64 year old female who presents to the Emergency Room with complaints of worsening shortness of breath beginning 10 days ago. The patient reports she was in the hospital for fluid retention and difficulty breathing and was discharged 8 days ago. She notes her breathing had not improved before she was discharged. She reports a cough. The patient states she uses breathing treatments at home. She states she is on Lasix 40mg which has not been helping. The patient denies a fever. She denies blood thinners. The patient's rep orts he was told there was still fluid in the patient's lower left and upper right lobes of her lung. Home Medications Home Medications Medication Instructions Recorded Confirmed Type ferrous sulfate 325 mg (65 mg 325 mg PO QAM tab 01/28/19 09/07/19 History iron) tablet adhesive bandage #20 ea 05/18/19 08/20/19 Rx rifaximin 550 mg tablet 550 mg PO BID #60 tab 06/02/19 09/07/19 Rx walker #1 ea 06/25/19 08/20/19 Rx furosemide 40 mg tablet 40 mg PO BID #60 tab 06/30/19 09/07/19 Rx potassium chloride 20 mEq 20 meq PO BID #60 tab 06/30/19 09/07/19 Rx tablet,extended release fluticasone propionate 2 sprays INTNAS DAILY PRN 07/13/19 09/07/19 History lactulose 30 ml PO QAM 07/13/19 09/07/19 History spironolactone 50 mg PO QAM 07/13/19 09/07/19 History carvedilol 6.25 mg PO BID #60 tab 08/09/19 09/07/19 Rx folic acid 1 mg tablet 1 mg PO BID #60 tab 08/20/19 09/07/19 Rx ropinirole 2 mg tablet 2 mg PO HS #30 tab 08/20/19 09/07/19 Rx Basaglar KwikPen U-100 Insulin See Rx Instructions .ROUTE 08/28/19 09/07/19 History .COMPLEX PRN losartan 100 mg PO QAM 08/28/19 09/07/19 History pantoprazole 40 mg PO QAM 09/07/19 09/07/19 History Allergies Allergy/AdvReac Type Severity Reaction Status Date / Time Sulfa (Sulfonamide Allergy Mild Rash Verified 09/07/19 19:28 Antibiotics) sulfamethoxazole Allergy Mild RASH Verified 09/07/19 19:28 trimethoprim Allergy Mild RASH Verified 09/07/19 19:28 Bactrim Allergy Unknown RASH Verified 08/17/14 08:01 amlodipine AdvReac Intermediate confusion Verified 09/07/19 19:28 adhesive tape AdvReac Mild ITCHING Verified 09/07/19 19:28 Past Med/Surg History Medical History Anemia Anxiety Cardiac murmur Diabetes mellitus, type 2 Diverticular disease Duodenal ulcer Esophageal varices Gastric ulcer GERD (gastroesophageal reflux disease) History of recent blood transfusion 06/2019 Hyperlipidemia Hypertension Liver cirrhosis Nausea and vomiting after administration of anesthetic agent Osteoarthritis Psoriatic arthritis Restless leg syndrome Right forearm injury Surgical History History of anesthesia reaction difficult to wake after bladder tack sx History of bilateral cataract extraction History of bladder surgery bladder tack History of colonoscopy History of esophagogastroduodenoscopy (EGD) multiple---last 06/22/19 Dr. Malena Marie at [facility] History of hemiarthroplasty of right shoulder January 2018 post fracture History of repair of right rotator cuff History of revision of total shoulder arthroplasty Right shoulder, 12/29/18 History of tooth extraction all teeth S/P ORIF (open reduction internal fixation) fracture R shoulder, January 2018 Family History Grandmother (Paternal) Family history of diabetes mellitus Father COPD (chronic obstructive pulmonary disease) Mother Hypertension Family/Other Cancer Sister Ovarian cancer Social History Preferred Language: [place] Communication Ability: Effective Visual Impairment: Limited Hearing Ability: Normal 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 and A total of 10 systems reviewed and were otherwise negative Physical Exam Vital Signs Vital Signs - 24 hr 09/07/19 18:18 09/07/19 19:16 09/07/19 20:16 Temperature 36.4 C L Temperature Source Oral Pulse Rate 68 70 Pulse Rate [Apical] 69 Pulse Rhythm Regular Pulse Rhythm [Apical] Regular Pulse Strength [Apical] Normal Respiratory Rate 20 25 H 26 H Respiratory Effort / Characteristics Non-Labored Non-Labored Spontaneous Respiratory Depth Normal Normal Respiratory Pattern Regular Regular Blood Pressure 183/93 H Blood Pressure [Left Arm] 168/79 H Blood Pressure Mean 123 Blood Pressure Mean [Left Arm] 108 Blood Pressure Position Sitting Pulse Oximetry 95 94 94 Oxygen Delivery Method Room Air Room Air Room Air Oxygen Flow Rate 0 Sepsis Recent Fever Within 48 Hours No Sepsis Action Taken by Nursing No Action Required 09/07/19 20:46 Temperature Temperature Source Pulse Rate Pulse Rate [Apical] 67 Pulse Rhythm Pulse Rhythm [Apical] Pulse Strength [Apical] Respiratory Rate 20 Respiratory Effort / Characteristics Respiratory Depth Respiratory Pattern Blood Pressure Blood Pressure [Left Arm] 159/90 H Blood Pressure Mean Blood Pressure Mean [Left Arm] 113 Blood Pressure Position Pulse Oximetry 88 L Oxygen Delivery Method Room Air Oxygen Flow Rate Sepsis Recent Fever Within 48 Hours Sepsis Action Taken by Nursing GENERAL: Awake, alert, well-appearing, in no acute distress HENT: Normocephalic, atraumatic. Oropharynx unremarkable. EYES: Normal conjunctiva. Sclera non-icteric. NECK: Supple. No nuchal rigidity. FROM. No JVD. RESPIRATORY: Distant breath sounds. CARDIAC: Regular rate, normal rhythm. Extremities warm and well perfused. Pulses equal. ABDOMEN: Soft, non-distended. No tenderness to palpation. No rebound or guarding. No masses. RECTAL: Deferred. MUSCULOSKELETAL: Chest examination reveals no tenderness. The back is symmetrical on inspection without obvious abnormality. There is no CVA tenderness to palpation. No joint edema. LOWER EXTREMITIES: Calves are equal size bilaterally and non-tender. 1+ pitting edema up to the knee. No discoloration. NEURO: Normal sensorium. No sensory or motor deficits noted. SKIN: No rash or jaundice noted. Course Course 1827: Past medical records reviewed. The patient was evaluated in room B02. A complete history and physical exam was performed. 1899: Upon reevaluation, the patient is resting more comfortably. I discussed my findings and results with the patient. 2014: Upon reevaluation, I discussed findings and results with the patient. She verbalized agreement of the treatment plan. I spoke with Dr. Wagner of the [facility] Hospitalist Service. The patient will be evaluated for further management and care. Administered Medications Carvedilol (Coreg) 6.25 mg PO BID BOBBY Stop: 10/07/19 21:55 Last Admin: 09/07/19 22:37 Dose: 6.25 mg Documented by: [id number] Folic Acid (Folvite) 1 mg PO BID BOBBY Stop: 10/07/19 21:55 Last Admin: 09/07/19 22:37 Dose: 1 mg Documented by: [id number] Heparin Sodium (Porcine) (Heparin Sodium (Porcine)) 5,000 units SQ Q12 BOBBY Stop: 10/07/19 21:55 Last Admin: 09/07/19 22:37 Dose: 5,000 units Documented by: [id number] Cosigned by: [id number] Furosemide 40 mg/ Albumin (Human) 54 mls @ 54 mls/hr IV BID BOBBY Stop: 09/09/19 09:59 Last Infusion: 09/07/19 23:40 Dose: 0 mls/hr Documented by: [id number] Admin: 09/07/19 22:36 Dose: 54 mls/hr Documented by: [id number] Vancomycin HCl 750 mg/ Sodium (Chloride) 265 mls @ 125 mls/hr IV TODAY@0000 BOBBY Stop: 09/08/19 02:08 Last Admin: 09/08/19 00:03 Dose: 125 mls/hr Documented by: [id number] Potassium Chloride (Klor-Con M20) 20 meq PO BID BOBBY Stop: 10/07/19 21:55 Last Admin: 09/07/19 22:38 Dose: 20 meq Documented by: [id number] Rifaximin (Xifaxan) 550 mg PO BID BOBBY Stop: 10/07/19 21:55 Last Admin: 09/07/19 22:38 Dose: 550 mg Documented by: [id number] Ropinirole HCl (Requip) 2 mg PO HS BOBBY Stop: 10/07/19 21:55 Last Admin: 09/07/19 22:38 Dose: 2 mg Documented by: [id number] Discontinued Medications Hydromorphone HCl (Dilaudid) 0.5 mg IV Q15M PRN PRN Reason: Pain Stop: 09/21/19 18:30 Last Admin: 09/07/19 19:40 Dose: 0.5 mg Documented by: [id number] Acetaminophen (Ofirmev) 1,000 mg in 100 mls @ 400 mls/hr IV NOW STA Stop: 09/07/19 18:45 Last Infusion: 09/07/19 20:00 Dose: 0 mls/hr Documented by: [id number] Admin: 09/07/19 19:38 Dose: 400 mls/hr Documented by: [id number] Piperacillin Sod/Tazobactam Sod (Zosyn) 4.5 gm in 120 mls @ 240 mls/hr IV NOW ONE Stop: 09/07/19 20:02 Last Infusion: 09/07/19 21:16 Dose: 0 mls/hr Documented by: [id number] Admin: 09/07/19 20:46 Dose: 240 mls/hr Documented by: [id number] Levofloxacin/Dextrose (Levaquin/D5w) 750 mg in 150 mls @ 100 mls/hr IV NOW STA Stop: 09/07/19 21:02 Last Infusion: 09/07/19 23:01 Dose: 0 mls/hr Documented by: [id number] Admin: 09/07/19 21:16 Dose: 100 mls/hr Documented by: [id number] Vancomycin HCl 1,000 mg/ (Sodium Chloride) 520 mls @ 200 mls/hr IV NOW ONE Stop: 09/07/19 22:02 Last Infusion: 09/07/19 23:59 Dose: 0 mls/hr Documented by: [id number] Admin: 09/07/19 21:15 Dose: 200 mls/hr Documented by: [id number] Ondansetron HCl (Zofran) 4 mg IV NOW STA Stop: 09/07/19 18:32 Last Admin: 09/07/19 19:40 Dose: 4 mg Documented by: [id number] Medical Decision Making Differential Diagnosis Differential diagnoses includes but is not limited to pneumonia, bronchitis, COPD/Asthma exacerbation, pneumothorax, pulmonary embolism, congestive heart failure, acute coronary syndrome Medical Records Attestation: I reviewed the patient's medical records. Home Medications Current Medication List: was personally reviewed by me Laboratory Data Attestation: I reviewed the patient's lab results. Result diagrams: 09/07/19 19:10 09/07/19 20:03 Lab Results 09/07/19 09/07/19 09/07/19 Range/Units 19:10 19:10 19:10 WBC 4.66 L (4.8-10.8) K/uL RBC 3.02 L (4.2-5.4) M/uL Hgb 8.7 L (12.0-16.0) g/dL Hct 27.5 L (37-47) % MCV 91.1 (80-100) fL MCH 28.8 (25-34) pg MCHC 31.6 L (32-36) g/dL RDW Std Deviation 59.5 H (36.4-46.3) fL RDW Coeff of Karina 17.9 H (11.5-14.5) % Plt Count 78 L (130-400) K/uL MPV 10.4 (7.4-10.4) fL Immature Gran % (Auto) 0.2 % Neut % (Auto) 66.3 % Lymph % (Auto) 20.0 % [place] % (Auto) 10.5 % Eos % (Auto) 2.6 % Baso % (Auto) 0.4 % Immature Gran # (Auto) 0.01 (0.00-0.02) K/uL Neut # (Auto) 3.09 (1.4-6.5) K/uL Lymph # (Auto) 0.93 L (1.2-3.4) K/uL [place] # (Auto) 0.49 (0.11-0.59) K/uL Eos # (Auto) 0.12 (0-0.5) K/uL Baso # (Auto) 0.02 (0-0.2) K/uL Sodium 141 (136-145) mmol/L Potassium (3.5-5.1) mmol/L Chloride 116 H (98-107) mmol/L Carbon Dioxide 22 (21-32) mmol/L Anion Gap 3.0 (3-11) BUN 49 H (7-18) mg/dl Creatinine 1.85 H (0.6-1.2) mg/dl Est Cr Clr Drug Dosing Not Reportable Est GFR ( Amer) 33.0 Est GFR (Non-Af Amer) 28.5 BUN/Creatinine Ratio 26.5 H (10-20) Glucose 246 H (70-99) mg/dl Calcium 8.3 L (8.5-10.1) mg/dl Magnesium 1.9 (1.8-2.4) mg/dl Total Bilirubin 1.0 (0.2-1) mg/dl AST (15-37) U/L ALT 27 (12-78) U/L Alkaline Phosphatase 264 H (45-117) U/L Total Creatine Kinase TNP CK-MB (CK-2) 4.0 H (0.5-3.6) ng/ml CK/CKMB % Calc TNP Troponin I < 0.015 (0-0.045) ng/ml NT-Pro-B Natriuret Pep 5214 H (0-900) pg/ml Total Protein 8.7 H (6.4-8.2) gm/dl Albumin 1.9 L (3.4-5.0) gm/dl Globulin 6.8 H (2.5-4.0) gm/dl Albumin/Globulin Ratio 0.3 L (0.9-2) Lipase 140 (73-393) U/L Urine Color Urine Appearance (Clear) Urine pH (4.5-7.5) Ur Specific [place] (1.000-1.030) Urine Protein (Negative) Urine Glucose (UA) (Negative) Urine Ketones (Negative) Urine Blood (Negative) Urine Nitrite (Negative) Urine Bilirubin (Negative) Urine Urobilinogen (Negative) Ur Leukocyte Esterase (Negative) Urine WBC (Auto) (0-5) /hpf Urine RBC (Auto) (0-4) /hpf U Hyaline Cast (Auto) (0-5) /lpf U Epithel Cells (Auto) (0-5) /lpf Urine Bacteria (Auto) (Negative) Influenza Type A (PCR) (Neg) Influenza Type B (PCR) (Neg) Blood Type Antibody Screen 09/07/19 09/07/19 09/07/19 Range/Units 19:30 19:40 20:03 WBC (4.8-10.8) K/uL RBC (4.2-5.4) M/uL Hgb (12.0-16.0) g/dL Hct (37-47) % MCV (80-100) fL MCH (25-34) pg MCHC (32-36) g/dL RDW Std Deviation (36.4-46.3) fL RDW Coeff of Karina (11.5-14.5) % Plt Count (130-400) K/uL MPV (7.4-10.4) fL Immature Gran % (Auto) % Neut % (Auto) % Lymph % (Auto) % [place] % (Auto) % Eos % (Auto) % Baso % (Auto) % Immature Gran # (Auto) (0.00-0.02) K/uL Neut # (Auto) (1.4-6.5) K/uL Lymph # (Auto) (1.2-3.4) K/uL [place] # (Auto) (0.11-0.59) K/uL Eos # (Auto) (0-0.5) K/uL Baso # (Auto) (0-0.2) K/uL Sodium (136-145) mmol/L Potassium (3.5-5.1) mmol/L Chloride (98-107) mmol/L Carbon Dioxide (21-32) mmol/L Anion Gap (3-11) BUN (7-18) mg/dl Creatinine (0.6-1.2) mg/dl Est Cr Clr Drug Dosing Est GFR ( Amer) Est GFR (Non-Af Amer) BUN/Creatinine Ratio (10-20) Glucose (70-99) mg/dl Calcium (8.5-10.1) mg/dl Magnesium (1.8-2.4) mg/dl Total Bilirubin (0.2-1) mg/dl AST (15-37) U/L ALT (12-78) U/L Alkaline Phosphatase (45-117) U/L Total Creatine Kinase CK-MB (CK-2) (0.5-3.6) ng/ml CK/CKMB % Calc Troponin I (0-0.045) ng/ml NT-Pro-B Natriuret Pep (0-900) pg/ml Total Protein (6.4-8.2) gm/dl Albumin (3.4-5.0) gm/dl Globulin (2.5-4.0) gm/dl Albumin/Globulin Ratio (0.9-2) Lipase (73-393) U/L Urine Color Dark Yellow Urine Appearance Clear (Clear) Urine pH 5.0 (4.5-7.5) Ur Specific [place] 1.015 (1.000-1.030) Urine Protein 2+ H (Negative) Urine Glucose (UA) Negative (Negative) Urine Ketones Negative (Negative) Urine Blood 2+ H (Negative) Urine Nitrite Negative (Negative) Urine Bilirubin Negative (Negative) Urine Urobilinogen Negative (Negative) Ur Leukocyte Esterase 1+ H (Negative) Urine WBC (Auto) 1-5 (0-5) /hpf Urine RBC (Auto) 10-30 H (0-4) /hpf U Hyaline Cast (Auto) 1-5 (0-5) /lpf U Epithel Cells (Auto) >30 H (0-5) /lpf Urine Bacteria (Auto) Negative (Negative) Influenza Type A (PCR) Neg for Influ A (Neg) Influenza Type B (PCR) Neg for Influ B (Neg) Blood Type O Positive Antibody Screen NEGATIVE 09/07/19 Range/Units 20:03 WBC (4.8-10.8) K/uL RBC (4.2-5.4) M/uL Hgb (12.0-16.0) g/dL Hct (37-47) % MCV (80-100) fL MCH (25-34) pg MCHC (32-36) g/dL RDW Std Deviation (36.4-46.3) fL RDW Coeff of Karina (11.5-14.5) % Plt Count (130-400) K/uL MPV (7.4-10.4) fL Immature Gran % (Auto) % Neut % (Auto) % Lymph % (Auto) % [place] % (Auto) % Eos % (Auto) % Baso % (Auto) % Immature Gran # (Auto) (0.00-0.02) K/uL Neut # (Auto) (1.4-6.5) K/uL Lymph # (Auto) (1.2-3.4) K/uL [place] # (Auto) (0.11-0.59) K/uL Eos # (Auto) (0-0.5) K/uL Baso # (Auto) (0-0.2) K/uL Sodium (136-145) mmol/L Potassium 4.0 (3.5-5.1) mmol/L Chloride (98-107) mmol/L Carbon Dioxide (21-32) mmol/L Anion Gap (3-11) BUN (7-18) mg/dl Creatinine (0.6-1.2) mg/dl Est Cr Clr Drug Dosing Est GFR ( Amer) Est GFR (Non-Af Amer) BUN/Creatinine Ratio (10-20) Glucose (70-99) mg/dl Calcium (8.5-10.1) mg/dl Magnesium (1.8-2.4) mg/dl Total Bilirubin (0.2-1) mg/dl AST 27 (15-37) U/L ALT (12-78) U/L Alkaline Phosphatase (45-117) U/L Total Creatine Kinase 43 CK-MB (CK-2) (0.5-3.6) ng/ml CK/CKMB % Calc Troponin I (0-0.045) ng/ml NT-Pro-B Natriuret Pep (0-900) pg/ml Total Protein (6.4-8.2) gm/dl Albumin (3.4-5.0) gm/dl Globulin (2.5-4.0) gm/dl Albumin/Globulin Ratio (0.9-2) Lipase (73-393) U/L Urine Color Urine Appearance (Clear) Urine pH (4.5-7.5) Ur Specific [place] (1.000-1.030) Urine Protein (Negative) Urine Glucose (UA) (Negative) Urine Ketones (Negative) Urine Blood (Negative) Urine Nitrite (Negative) Urine Bilirubin (Negative) Urine Urobilinogen (Negative) Ur Leukocyte Esterase (Negative) Urine WBC (Auto) (0-5) /hpf Urine RBC (Auto) (0-4) /hpf U Hyaline Cast (Auto) (0-5) /lpf U Epithel Cells (Auto) (0-5) /lpf Urine Bacteria (Auto) (Negative) Influenza Type A (PCR) (Neg) Influenza Type B (PCR) (Neg) Blood Type Antibody Screen Imaging Data Radiologist's Impression: Radiology results as stated below per my review and the radiologist's interpretation: XR chest 1V portable CLINICAL HISTORY: Chest Pain dyspnea COMPARISON STUDY: 08/28/2019 FINDINGS: Moderate stable cardiomegaly. Infiltrate and effusion left lung base unaltered from the prior exam. Right lung is clear. IMPRESSION: Infiltrate and effusion left base. This is unchanged from the prior study. ACT 112: Negative or not required by law. The above report was generated using voice recognition software. It may contain grammatical, syntax or spelling errors. Electronically signed by: Valente Ponce M.D. 09/07/2019 7:03 PM ECG Data Attestation: I personally reviewed and interpreted this ECG as follows: Indication: + SOB/dyspnea Rate (beats per minute): 71 Rhythm: + normal sinus ECG Intervals/blocks: + Normal QT-c (473) ECG ST segments: no ST depression and no ST elevation ECG Findings: + Other (old inferior infarct) Blood Pressure Blood Pressure Findings: Elevated blood pressure Blood Pressure Disposition: further management by hospitalist MDM Narrative This is a 64-year-old female who presents emergency department complaining of shortness of breath. The patient was recently admitted to the hospital. She co ntinues to have what appears to be pneumonia on the left lung base. Because of this because of the patient's shortness of breath I did discuss her case with the hospitalist service who did agree to admit the patient. Her hemoglobin is stable. Her flu swab is negative her white blood cell count is 4.6. Patient and family were in agreement with the treatment plan. Impression & Plan Pneumonia Discharge Plan Visit Data *Final* Discharge Date/Time: 09/07/19 21:26 Chief Complaint: Shortness of Breath/Dyspnea Stated Complaint: SOB ED Provider: Phil Owens Discharge Problem: Pneumonia Patient Disposition: Being Evaluated by Hospitalist Discharge Instructions Interventions: ED Discharge Assessment Last Done: 09/07/19 21:26 Discharge Problem: Pneumonia Qualifiers: Pneumonia type: due to unspecified organism Laterality: left Lung location: unspecified part of lung Qualified Code(s): J18.9 - Pneumonia, unspecified organism The scribe's documentation has been prepared under my direction and personally reviewed by me in its entirety. I confirm that the note above accurately reflects all work, treatment, procedures, and medical decision making performed by me.
[2019-09-08] MEDS: PIPERACILLIN/TAZOBACTAM 3.375 GM in DEXTROSE 5% 100 ML IV SCH ×2 (02:16→09:58)
[2019-09-08 06:17] LABS: Hematocrit (blood only) 24.9 % (37-47); Hemoglobin 7.8 g/dL (12.0-16.0); Mean Corpuscular Hemoglobin 28.9 pg (25-34); Mean Corpuscular Hgb Conc 31.3 g/dL (32-36); Mean Corpuscular Volume 92.2 fL (80-100); RDW Coefficient of Variation 17.6 % (11.5-14.5); RDW Standard Deviation 58.8 fL (36.4-46.3); White Blood Count 2.92 K/uL (4.8-10.8)
[2019-09-08 06:20] LABS: Platelet Count 46 K/uL (130-400)
[2019-09-08 06:27] LABS: INR 1.4 (0.9-1.1); Partial Thromboplastin Ratio 1.4; Partial Thromboplastin Time 37.6 Seconds (21.0-31.0); Prothrombin Time 13.8 Seconds (9.0-12.0)
[2019-09-08 06:48] LABS: Basophils # (auto) 0.01 K/uL (0-0.2); Basophils % (auto) 0.3 %; Eosinophils # (auto) 0.08 K/uL (0-0.5); Eosinophils % (auto) 2.7 %; Immature Granulocytes # (auto) 0.01 K/uL (0.00-0.02); Immature Granulocytes % (auto) 0.3 %; Lymphocytes # (auto) 0.59 K/uL (1.2-3.4); Lymphocytes % (auto) 20.2 %; Monocytes # (auto) 0.28 K/uL (0.11-0.59); Monocytes % (auto) 9.6 %; Neutrophils # (auto) 1.95 K/uL (1.4-6.5); Neutrophils % (auto) 66.9 %; Rouleaux 1+
[2019-09-08 06:58] LABS: Albumin Level 1.9 gm/dl (3.4-5.0); BUN Creatinine Ratio 27.2 (10-20); Calcium 8.2 mg/dl (8.5-10.1); Creatinine Clr Calc Pharmacy 29.2 ml/min; Est GFR (African American) 33.9; Est GFR (Non-African American) 29.2; Potassium 4.5 mmol/L (3.5-5.1)
[2019-09-08 07:01] LABS: Albumin Globulin Ratio 0.3 (0.9-2); Bilirubin,Total 1.3 mg/dl (0.2-1); Globulin 5.9 gm/dl (2.5-4.0); Total Protein 7.8 gm/dl (6.4-8.2)
[2019-09-08] MEDS: INSULIN ASPART 100 UNITS/ML 3 ML PEN SC SCH ×4 (08:49→20:13)
[2019-09-08] MEDS: INSULIN GLARGINE SOLOSTAR 100 UNITS/ML 3 ML PEN SC SCH (08:49)
[2019-09-08] MEDS: FOLIC ACID 1 MG TAB PO SCH ×2 (08:52→20:16)
[2019-09-08] MEDS: LACTULOSE SYRUP 20 GM/30 ML UDC PO SCH (08:52)
[2019-09-08] MEDS: PANTOprazole 40 MG TAB PO SCH (08:52)
[2019-09-08] MEDS: SPIRONOLACTONE 25 MG TAB PO SCH (08:52)
[2019-09-08] MEDS: FERROUS SULFATE 325 MG TAB PO SCH (08:52)
[2019-09-08] MEDS: POTASSIUM CHLORIDE 20 MEQ TABCR PO SCH ×2 (08:52→20:14)
[2019-09-08] MEDS: RIFAXIMIN 550 MG TABLET PO SCH ×2 (08:52→20:15)
[2019-09-08] MEDS: carvediloL 6.25 MG TAB PO SCH ×2 (08:52→20:16)
[2019-09-08] MEDS ORDERED: LOSARTAN POTASSIUM 50 MG TAB PO SCH (09:00)
[2019-09-08] MEDS: ALBUMIN 25% 50 ML with FUROSEMIDE 40 MG IV SCH ×2 (09:13→20:28)
--- NOTE | 2019-09-08 09:57 | Pharmacy Report ---
Pharmacy Abx Initial Consult - Date of Service September 08, 2019 - Pharmacy Dosing Scope Date of Consult: 09/08 Consultation requested by: Dr. Wagner Pharmacy is consulted to initiate vancomycin and zosyn IV/PO dosing therapy, order appropriate labs and adjust drug dose/frequency. - Subjective The patient is a 64 year old F admitted on 09/07/19 21:10. - Objective Height: 5 ft 1 in Weight: 73.7 kg Vital Signs (Past 12hrs): Vital Signs Temp Pulse Resp BP Pulse Ox Pulse Ox 09/08/19 08:01 36.3 C L 62 18 159/73 H 96 09/08/19 03:07 36.4 C L 67 16 139/79 97 09/08/19 00:00 36.5 C 66 20 170/78 H 96 09/07/19 23:33 36.4 C L 60 16 141/81 H 96 09/07/19 22:00 36.5 C 68 18 170/79 H 97 09/07/19 21:56 96 Lab Results (24hrs): Laboratory Tests (24 Hours) 09/08/19 09/08/19 09/08/19 07:47 05:30 05:30 WBC 2.92 L Neut # (Auto) 1.95 Creatinine 1.81 H Est Cr Clr Drug Dosing 29.2 Total Creatine Kinase Procalcitonin 0.14 09/07/19 09/07/19 09/07/19 20:03 19:10 19:10 WBC 4.66 L Neut # (Auto) 3.09 Creatinine 1.85 H Est Cr Clr Drug Dosing Not Reportable Total Creatine Kinase 43 TNP Procalcitonin Micro Results: 09/07/19 20:03 Aerobic Blood Culture - Pending Blood Anaerobic Blood Culture - Pending 09/07/19 20:10 Aerobic Blood Culture - Pending Blood Anaerobic Blood Culture - Pending - Assessment & Plan Assessment 64 year old female admitted with possible pneumonia. Blood cultures x 2 are pending. Negative flu. MRSA nasal swab pending. Started on vancomycin and zosyn empirically. Plan Vancomycin IV * Patient received loading dose of vancomycin (1gm+750mg ) total 1750 mg last night (~24 mg/kg) * Will start vancomycin 1000 mg (~14 mg/kg) iv q 24 hrs to achieve an estimated trough ~15-20 mcg/ml (goal for pneumonia) * Estimated kinetics: t1/2~24 hrs, ke~0.03 hr-1, CrCl ~30 ml/min - appears baseline SCr closer to 1.6 mg/dL (1.8 mg/dL today) * Will plan to check trough if continued >48 hrs or sooner if renal function changes Piperacillin/tazobactam * 3.375 gm iv q 8 hrs - appropriate for CrCl >20 ml/mi / no change Pharmacy will continue to follow and will adjust dose/frequency as necessary. Thank you.
[2019-09-08] MEDS: ONDANSETRON INJ 2 MG/ML 2 ML VIAL IV PRN ×2 (09:58→20:06)
[2019-09-08 17:15] LABS: Hematocrit (blood only) 24.4 % (37-47); Hemoglobin 7.7 g/dL (12.0-16.0); Mean Corpuscular Hemoglobin 28.5 pg (25-34); Mean Corpuscular Hgb Conc 31.6 g/dL (32-36); Mean Corpuscular Volume 90.4 fL (80-100); RDW Coefficient of Variation 17.9 % (11.5-14.5); RDW Standard Deviation 58.8 fL (36.4-46.3)
[2019-09-08 17:48] LABS: Mean Platelet Volume 10.3 fL (7.4-10.4); Platelet Count 56 K/uL (130-400)
[2019-09-08] MEDS: ACETAMINOPHEN 325 MG TAB PO PRN (18:36)
--- NOTE | 2019-09-08 18:57 | Hospitalist Progress Note ---
Date of Service September 08, 2019 Assessment & Plan (1) Pulmonary edema: Acute on chronic mostly non cardiac pulmonary edema secondary to hypoalbuminemia. Much less urine output at home as per her therefore will switch to bumex on discharge. Continue lasix/albumin while admitted to try to get to euvolemic state however I am concerned her arteries are relatively euvolemic and attempt at diuresis likely limited with her liver cirrhosis but will continue until there is a significant creatinine rise. Echo in April was relatively unremarkable for EF and valvular disease therefore do not feel this represents CHF. Elevate HOV > 30 degrees at all times I&Os + daily weights. (2) Pneumonia: Procalcitonin negative. CXR similar to previous - I would have suspected her CXR to have significantly worsened off antibiotics. History much more c onsistent with persistent pulmonary edema. Discontinued antibiotics. (3) 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: MELD score 17 with 6% 3 month mortality. Patient in process of getting established with another fraternity house cook through [facility]. Continue rifaximin, folic acid, lactulose and spironolactone. No hepatic encephalopathy but previous hyperammonemia noted. (4) Iron deficiency anemia: I suspect she is less short of breath with a Hgb > 9 which is backed up by her from prior admissions. Will avoid transfusion currently to see how she responds to lasix but get type and cross for 2 units in anticipation for transfusion tomorrow. Repeat iron studies with AM labs prior to transfusion. Unclear etiology but her does not chronic nose bleeds recently. FOB ordered (negative in July). (5) Hypertension: Continue carvedilol 6.25 mg p.o. twice daily. Hold losartan due to elevated creatinine - I am unsure why this was even restarted after her July admission and subsequent PCP visit this was not on her medication list. This was unfortunately already given today. (6) Peptic ulcer disease: Pantoprazole 40 mg p.o. daily (7) DM type 2 (diabetes mellitus, type 2): HbA1C 4.5 in April although I do not believe this is particularly reflective test given her liver cirrhosis and anemia. Will repeat in AM. Despite this her glucose remains elevated and she was actually admitted with glucose of 301 on Aug 28 (244 on this admission). Start basal bolus regimen with Lantus 10 units daily and Novolog will d/c carb ratio but keep correction factor. BSG ACHS. (8) Polyclonal gammopathy: Had hematology appointment planned for tomorrow. Previous bone biopsies > 3 years ago negative. No acute need for hematology to see but (9) Psoriatic arthritis: No active lesions seen. (10) Rheumatoid arthritis: No active flare synovitis in hands but having right shoulder pain which I believe represents more of a chronic pain after reverse shoulder arthroplasty rather than an acute inflammatory process. ESR > 90 last time checked in December, will recheck in AM. (11) Obstructive sleep apnea: Mild on prior sleep study in 03/2019. Will use CPAP/BiPAP @ night to help with this and pulmonary edema. Severe nocturnal hypoxemia on same report likely due to pulmonary edema. (12) DVT prophylaxis: Discontinued heparin due to thrombocytopenia and anemia. Will restart if Plt improve. (13) Discharge planning issues: PT/OT. Likely to need placement on discharge. Subjective Patient with slowly declining shortness of breath over the past 2-3 days without cough, fever or chills. She reports no real improvement after her last admission when she was placed on lasix but subsequently changed back to her usual dosing after her creatinine started to rise. However on review it appears she was also placed back on losartan due to a med rec which was not correct. She reports a mild improvement overnight with IV lasix and antibiotics. No fevers or chills. At baseline shortness of breath at rest but much worse on exertion. No chest pain. Review of Systems Review of Systems: All systems reviewed & are unremarkable except as noted in HPI & below Physical Exam Constitutional: well developed; no acute distress Eyes: + anicteric sclerae; normal pupil size ENMT: external ear and nose normal, oropharynx normal Neck: trachea midline Respiratory: normal respiratory effort; no respiratory distress, no labored breathing, no retractions and does not use accessory muscles Auscultation: + breath sounds absent (bibasal) and + diminished lung sounds (to mid zones, poor air entry); no crackles, no rales and no rhonchi Cardiovascular: Rate/Rhythm: regular rate and regular rhythm Extremities: + pedal edema (tight skin with 2+ to knees b/l equal) Gastrointestinal (Abdomen): normal bowel sounds, soft, nontender, no he patosplenomegaly Musculoskeletal: no cyanosis or clubbing, extremities motor strength 5/5 Skin: no rashes, warm and dry Neurologic: moves all extremities and awake; no focal motor deficits (chronic weak left lower extremity) and not confused Psychiatric: A+Ox3, euthymic affect Lymphatic: no cervical or axillary lymphadenopathy Results & Data Vital Signs (Past 12 Hours) Vital Signs Temp Pulse Pulse Resp BP Pulse Ox 09/08/19 16:00 71 09/08/19 15:17 36.4 C L 68 18 150/79 H 95 09/08/19 11:05 36.8 C 65 19 131/67 97 09/08/19 11:04 96 09/08/19 08:01 36.3 C L 62 18 159/73 H 96 09/08/19 08:00 61 PG Care Time/CCT Total # of Minutes Spent Total Time Spent with Patient: Total time spent is greater than 50% in coordination of care (as documented) at patient's floor/unit and/or counseling patient: Coding Level of Care Code 98577 Subseq Hosp Care Lvl 3 Diagnoses Pulmonary edema J81.0 Chronicity: acute Pneumonia J18.9 Laterality: left Lung location: unspecified part of lung Pneumonia type: due to unspecified organism 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 K75.81; K74.60 Iron deficiency anemia D50.8 Iron deficiency anemia type: other iron deficiency Hypertension I10 Hypertension type: essential hypertension Peptic ulcer disease K27.9 DM type 2 (diabetes mellitus, type 2) E11.65 Diabetes mellitus complication status: with hyperglycemia Diabetes mellitus residential insulin use: without long term care administrator use Polyclonal gammopathy D89.0 Psoriatic arthritis L40.50 Rheumatoid arthritis M06.9 Rheumatoid arthritis location: multiple sites Rheumatoid factor presence: unspecified presence Obstructive sleep apnea G47.33 DVT prophylaxis Z29.9 Discharge planning issues Z02.9 (1) Rheumatoid arthritis Rheumatoid arthritis location: multiple sites Rheumatoid factor presence: unspecified presence Qualified Code(s): M06.9 - Rheumatoid arthritis, unspecified (2) DM type 2 (diabetes mellitus, type 2) Diabetes mellitus complication status: with hyperglycemia Diabetes mellitus long term care administrator insulin use: without residential use Qualified Code(s): E11.65 - Type 2 diabetes mellitus with hyperglycemia (3) Pulmonary edema Chronicity: acute Qualified Code(s): J81.0 - Acute pulmonary edema (4) Iron deficiency anemia Iron deficiency anemia type: other iron deficiency Qualified Code(s): D50.8 - Other iron deficiency anemias (5) Hypertension Hypertension type: essential hypertension Qualified Code(s): I10 - Essential (primary) hypertension (6) Pneumonia Laterality: left Lung location: unspecified part of lung Pneumonia type: due to unspecified organism Qualified Code(s): J18.9 - Pneumonia, unspecified organism
[2019-09-08] MEDS: OXYCODONE HCL IR 5 MG TAB (IMMEDIATE RELEASE) PO PRN (20:05)
[2019-09-08] MEDS: ROPINIROLE HCL 1 MG TABLET PO SCH (20:14)
--- NOTE | 2019-09-08 21:26 | Electrocardiogram Report ---
Test Reason : Blood Pressure : / mmHG Vent. Rate : 071 BPM Atrial Rate : 071 BPM P-R Int : 158 ms QRS Dur : 080 ms QT Int : 436 ms P-R-T Axes : 072 043 008 degrees QTc Int : 473 ms Poor data quality, interpretation may be adversely affected Normal sinus rhythm When compared with ECG of 28-AUG-2019 18:33, No significant change was found Confirmed by Gentry Cook ([id number]) on 09/08/2019 9:26:23 PM Referred By: Rocío Alonso Confirmed By:Gentry Cook
[2019-09-08] MEDS ORDERED: SODIUM CHLORIDE 0.9% 250 ML IV PRN (22:22)
[2019-09-09] MEDS ORDERED: VANCOMYCIN HCL 1,000 MG in SODIUM CHLORIDE 0.9% 250 ML IV SCH
[2019-09-09 06:13] LABS: Hematocrit (blood only) 24.4 % (37-47); Hemoglobin 7.7 g/dL (12.0-16.0); Mean Corpuscular Hemoglobin 29.3 pg (25-34); Mean Corpuscular Hgb Conc 31.6 g/dL (32-36); Mean Corpuscular Volume 92.8 fL (80-100); RDW Standard Deviation 60.9 fL (36.4-46.3); Red Blood Count 2.63 M/uL (4.2-5.4); White Blood Count 3.75 K/uL (4.8-10.8)
[2019-09-09 06:19] LABS: Mean Platelet Volume 10.6 fL (7.4-10.4); Platelet Count 51 K/uL (130-400)
[2019-09-09 06:31] LABS: Estimated Average Glucose 174 mg/dl; Hemoglobin A1C 7.7 % (4.5-5.6)
[2019-09-09 06:38] LABS: Basophils # (auto) 0.02 K/uL (0-0.2); Basophils % (auto) 0.5 %; Eosinophils % (auto) 2.7 %; Immature Granulocytes # (auto) 0.01 K/uL (0.00-0.02); Immature Granulocytes % (auto) 0.3 %; Lymphocytes # (auto) 0.92 K/uL (1.2-3.4); Lymphocytes % (auto) 24.5 %; Monocytes # (auto) 0.44 K/uL (0.11-0.59); Monocytes % (auto) 11.7 %; Neutrophils # (auto) 2.26 K/uL (1.4-6.5); Neutrophils % (auto) 60.3 %; RBC Morphology Unremarkable
[2019-09-09 06:40] LABS: INR 1.3 (0.9-1.1); Prothrombin Time 13.5 Seconds (9.0-12.0)
[2019-09-09 06:41] LABS: Albumin Level 2.1 gm/dl (3.4-5.0); BUN Creatinine Ratio 23.4 (10-20); Calcium 8.7 mg/dl (8.5-10.1); Creatinine Clr Calc Pharmacy 24.4 ml/min; Est GFR (African American) 27.4; Est GFR (Non-African American) 23.6; Potassium 5.1 mmol/L (3.5-5.1)
[2019-09-09 06:44] LABS: Albumin Globulin Ratio 0.3 (0.9-2); Bilirubin,Total 1.1 mg/dl (0.2-1); Ferritin 159.3 ng/ml (8-388); Total Protein 8.1 gm/dl (6.4-8.2)
--- NOTE | 2019-09-09 08:47 | Hospitalist Progress Note ---
Date of Service September 09, 2019 Assessment & Plan (1) Pulmonary edema: Acute on chronic mostly non cardiac pulmonary edema secondary to hypoalbuminemia. Much less urine output at home as per her therefore will switch to bumex on discharge. Continue lasix/albumin while admitted to try to get to euvolemic state however I am concerned her arteries are relatively euvolemic and attempt at diuresis likely limited with her liver cirrhosis and CKD. She appears to be Echo in April was relatively unremarkable for EF and valvular disease therefore do not feel this represents CHF. Elevate HOV > 30 degrees at all times I&Os + daily weights. (2) Elevated serum creatinine: CKD stage 3 at baseline. Suspect rise from lasix use and also from losartan which she should not be on an appears to be in error of med rec on last admission. Had dose yesterday but hopefully Cr will stabilize now off losartan today and will continue on lasix especially having had x2 units PRBCs. (3) Pneumonia: Ruled out. Procalcitonin negative. CXR similar to previous - I would have suspected her CXR to have significantly worsened off antibiotics. History much more consistent with persistent pulmonary edema. Discontinued antibiotics. (4) 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: MELD score 17 with 6% 3 month mortality. Patient in process of getting established with another explosive technician through [facility]. Continue rifaximin, folic acid, lactulose and spironolactone. No hepatic encephalopathy but previous hyperammonemia noted. (5) Iron deficiency anemia: Transfused 2 units packed RBCs which definitely appears to have helped with her shortness of breath and fatigue. Recommend aiming to keep Hgb > 9 in future. FOB negative. Iron sats actually good prior to transfusion at 32 % - will continue her chronic iron supplementation. (6) Hypertension: Continue carvedilol 6.25 mg p.o. twice daily. Stop losartan - suspected to be a med rec error on last admission. Unfortunately she had a dose yesterday. (7) Peptic ulcer disease: Pantoprazole 40 mg p.o. daily (8) DM type 2 (diabetes mellitus, type 2): HbA1C 7.7 Continue lantus 10 units QAM with correction factor bolus insulin. BSG ACHS. (9) Polyclonal gammopathy: Previous bone biopsies > 3 years ago negative. Missed appointment. Dr Hylton aware patient in hospital, will need to rearrange appointment when discharged. (10) Psoriatic arthritis: No active lesions seen. (11) Rheumatoid arthritis: No active flare synovitis. (12) Obstructive sleep apnea: Mild on prior sleep study in 03/2019. CPAP/BiPAP @ night to help with this and pulmonary edema. Severe nocturnal hypoxemia on same report likely due to pulmonary edema (severe orthopenea described by patient). (13) DVT prophylaxis: Discontinued heparin due to thrombocytopenia and anemia. Will restart if Plt improve. Continue SCDs. (14) Discharge planning issues: PT/OT. Likely to need placement on discharge. Need for creatinine to be stable, and euvolemic state to be discharged. Subjective Patient seen pre and post blood transfusions. Her shortness of breath is much improved this morning prior to blood transfusions with lasix given. After blood given she appears vastly improved again and her color has returned. No chest pain, palpitations or dizziness. Less orthopnea but still present. No PND. No change in O2 requirement Review of Systems Review of Systems: All systems reviewed & are unremarkable except as noted in HPI & below Physical Exam Constitutional: well developed; + not well nourished and no acute distress Eyes: + anicteric sclerae; normal pupil size ENMT: external ear and nose normal, oropharynx normal Neck: trachea midline Respiratory: normal respiratory effort; no respiratory distress, no labored breathing and does not use accessory muscles Auscultation: + diminished lung sounds (bibasal but much improved air entry); no crackles, no rales and no wheezes Cardiovascular: Rate/Rhythm: regular rate and regular rhythm Vessels: + JVD Extremities: + pedal edema (1+ b/l equal) Gastrointestinal (Abdomen): normal bowel sounds, soft, nontender, no hepatosplenomegaly Musculoskeletal: no cyanosis or clubbing, extremities motor strength 5/5 Skin: no rashes, warm and dry Neurologic: moves all extremities and awake; no focal motor deficits and not confused Psychiatric: A+Ox3, euthymic affect Results & Data Vital Signs (Past 12 Hours) Vital Signs Temp Pulse Pulse Resp BP Pulse Ox 09/09/19 07:41 36.7 C 70 18 133/70 98 09/09/19 04:40 37.0 C 67 18 124/73 91 09/09/19 01:06 70 09/08/19 23:55 36.9 C 69 22 134/72 98 PG Care Time/CCT Total # of Minutes Spent Total Time Spent with Patient: Total time spent is greater than 50% in coordination of care (as documented) at patient's floor/unit and/or counseling patient: (1) Rheumatoid arthritis Rheumatoid arthritis location: multiple sites Rheumatoid factor presence: unspecified presence Qualified Code(s): M06.9 - Rheumatoid arthritis, unspecified (2) DM type 2 (diabetes mellitus, type 2) Diabetes mellitus complication status: with hyperglycemia Diabetes mellitus fci insulin use: without manager terminal use Qualified Code(s): E11.65 - Type 2 diabetes mellitus with hyperglycemia (3) Pulmonary edema Chronicity: acute Qualified Code(s): J81.0 - Acute pulmonary edema (4) Iron deficiency anemia Iron deficiency anemia type: other iron deficiency Qualified Code(s): D50.8 - Other iron deficiency anemias (5) Hypertension Hypertension type: essential hypertension Qualified Code(s): I10 - Essential (primary) hypertension (6) Pneumonia Laterality: left Lung location: unspecified part of lung Pneumonia type: due to unspecified organism Qualified Code(s): J18.9 - Pneumonia, unspecified organism
[2019-09-09] MEDS: INSULIN ASPART 100 UNITS/ML 3 ML PEN SC SCH ×4 (08:49→21:09)
[2019-09-09] MEDS: carvediloL 6.25 MG TAB PO SCH ×2 (08:52→20:00)
[2019-09-09] MEDS: FERROUS SULFATE 325 MG TAB PO SCH (08:53)
[2019-09-09] MEDS: PANTOprazole 40 MG TAB PO SCH (08:53)
[2019-09-09] MEDS: SPIRONOLACTONE 25 MG TAB PO SCH (08:53)
[2019-09-09] MEDS: FOLIC ACID 1 MG TAB PO SCH ×2 (08:54→20:02)
[2019-09-09] MEDS: POTASSIUM CHLORIDE 20 MEQ TABCR PO SCH ×2 (08:54→20:00)
[2019-09-09] MEDS: RIFAXIMIN 550 MG TABLET PO SCH ×2 (08:55→20:01)
[2019-09-09] MEDS: INSULIN GLARGINE SOLOSTAR 100 UNITS/ML 3 ML PEN SC SCH (08:55)
[2019-09-09] MEDS: LACTULOSE SYRUP 20 GM/30 ML UDC PO SCH (08:55)
[2019-09-09] MEDS ORDERED: SODIUM CHLORIDE 0.9% 250 ML IV PRN (09:11)
[2019-09-09] MEDS: ALBUMIN 25% 50 ML with FUROSEMIDE 40 MG IV SCH (09:25)
[2019-09-09] MEDS: ACETAMINOPHEN 325 MG TAB PO PRN ×2 (10:19→18:18)
[2019-09-09] MEDS ORDERED: ALBUMIN 25% 50 ML with FUROSEMIDE 40 MG IV SCH (17:00)
[2019-09-09] MEDS: ROPINIROLE HCL 1 MG TABLET PO SCH (20:01)
[2019-09-10 06:27] LABS: Hematocrit (blood only) 30.9 % (37-47); Hemoglobin 9.8 g/dL (12.0-16.0); Mean Corpuscular Hemoglobin 29.2 pg (25-34); Mean Corpuscular Hgb Conc 31.7 g/dL (32-36); RDW Coefficient of Variation 17.4 % (11.5-14.5); RDW Standard Deviation 58.2 fL (36.4-46.3); Red Blood Count 3.36 M/uL (4.2-5.4); White Blood Count 4.04 K/uL (4.8-10.8)
[2019-09-10 06:34] LABS: Mean Platelet Volume 10.7 fL (7.4-10.4); Platelet Count 45 K/uL (130-400)
[2019-09-10 06:38] LABS: INR 1.3 (0.9-1.1); Prothrombin Time 13.5 Seconds (9.0-12.0)
[2019-09-10 07:01] LABS: Basophils # (auto) 0.01 K/uL (0-0.2); Basophils % (auto) 0.2 %; Eosinophils % (auto) 2.5 %; Immature Granulocytes # (auto) 0.01 K/uL (0.00-0.02); Immature Granulocytes % (auto) 0.2 %; Lymphocytes # (auto) 0.77 K/uL (1.2-3.4); Lymphocytes % (auto) 19.1 %; Monocytes # (auto) 0.43 K/uL (0.11-0.59); Monocytes % (auto) 10.6 %; Neutrophils # (auto) 2.72 K/uL (1.4-6.5); Neutrophils % (auto) 67.4 %
[2019-09-10 07:05] LABS: Albumin Level 2.4 gm/dl (3.4-5.0); BUN Creatinine Ratio 23.1 (10-20); Creatinine Clr Calc Pharmacy 21.6 ml/min; Est GFR (African American) 23.6; Est GFR (Non-African American) 20.4; Potassium 5.3 mmol/L (3.5-5.1)
[2019-09-10 07:08] LABS: Albumin Globulin Ratio 0.4 (0.9-2); Bilirubin,Total 1.5 mg/dl (0.2-1); Globulin 5.9 gm/dl (2.5-4.0); Total Protein 8.3 gm/dl (6.4-8.2)
--- NOTE | 2019-09-10 08:08 | XRay Report ---
XR chest 1V portable HISTORY: shortness of breath COMPARISON: Chest 09/07/2019. FINDINGS: No pneumothorax. Small left pleural effusion and left basilar densities persist. Right katya hilar interstitial thickening and hazy airspace opacity has slightly progressed. This may represent a symmetric pulmonary edema. There is a right shoulder prosthesis. Stable mild cardiomegaly. IMPRESSION: 1. No change in the small left pleural effusion and left basilar densities. 2. Slight progression of the right perihilar interstitial thickening and hazy airspace opacity. This may represent asymmetric pulmonary edema. ACT 112: Negative or not required by law. Electronically signed by: James Murillo M.D. 09/10/2019 8:07 AM
[2019-09-10] MEDS: INSULIN ASPART 100 UNITS/ML 3 ML PEN SC SCH ×4 (08:32→21:29)
[2019-09-10] MEDS: INSULIN GLARGINE SOLOSTAR 100 UNITS/ML 3 ML PEN SC SCH (08:32)
[2019-09-10] MEDS: RIFAXIMIN 550 MG TABLET PO SCH ×2 (08:33→20:06)
[2019-09-10] MEDS: PANTOprazole 40 MG TAB PO SCH (08:33)
[2019-09-10] MEDS: LACTULOSE SYRUP 20 GM/30 ML UDC PO SCH (08:33)
[2019-09-10] MEDS: carvediloL 6.25 MG TAB PO SCH ×2 (08:33→20:07)
[2019-09-10] MEDS: FOLIC ACID 1 MG TAB PO SCH ×2 (08:33→20:06)
[2019-09-10] MEDS: FERROUS SULFATE 325 MG TAB PO SCH (08:33)
--- NOTE | 2019-09-10 10:08 | Nephrology Consultation ---
Date of Consultation September 10, 2019 Assessment & Plan (1) Acute kidney injury: -- 07/07 Renal US reviewed: normal size, no obstruction -- Will order urinalysis w/ micro -- Agree w/ stopping Losartan, Spironolactone and KCl -- Patient has been on IV SPA and furosemide. Serum albumin now 2.8. Hold diuretic at this time. Patient continues to diurese on her own -- Monitor serial PRP (2) Chronic kidney disease, stage III (moderate): -- Baseline Cr ~ 1.3 (3) Anemia: -- Transfused 1 u PRBC this admission (4) Liver cirrhosis: (5) Pulmonary hypertension: History of Present Illness Reason for Consultation: HENRIUQE/CKD Attending Physician: Willis Flores MD History of Present Illness Mrs. Sherman is a 64 year old white female who is seen at the request of Dr. Flores for evaluation of HENRIQUE/CKD. Medical records in the EMR were reviewed today and are summarized as follows: Mrs. Sherman has stage III CKD (moderate impairment - Dr. Galeano). Baseline Cr ~ 1.3 w/ EGFR 42 cc/min. Her medical history is significant for HTN, AODM, pulmonary HTN, mitral valve vegetation, PUD, RA, depression, psoriasis and MAE/cirrhosis. Mrs. Sherman has been on Losartan for her HTN and Metformin for her DM. Over the last several days she has experienced progressive LE swelling and GARCIA. ED evaluation revealed L pleural effusion, anemia (Hgb 7.7) and HENRIQUE (Cr 2.4). Admission advised for blood transfusion and diuresis. Echocardiogram 02/04: LVEF 65 - 70%, PASP 65 mmHg, mild . Allergies Allergy/AdvReac Type Severity Reaction Status Date / Time Sulfa (Sulfonamide Allergy Mild Rash Verified 09/07/19 19:28 Antibiotics) sulfamethoxazole Allergy Mild RASH Verified 09/07/19 19:28 trimethoprim Allergy Mild RASH Verified 09/07/19 19:28 Bactrim Allergy Unknown RASH Verified 08/17/14 08:01 amlodipine AdvReac Intermediate confusion Verified 09/07/19 19:28 adhesive tape AdvReac Mild ITCHING Verified 09/07/19 19:28 Home Medications Home Medications Medication Instructions Recorded Confirmed Type ferrous sulfate 325 mg (65 mg 325 mg PO QAM tab 01/28/19 09/07/19 History iron) tablet adhesive bandage #20 ea 05/18/19 08/20/19 Rx rifaximin 550 mg tablet 550 mg PO BID #60 tab 06/02/19 09/07/19 Rx walker #1 ea 06/25/19 08/20/19 Rx furosemide 40 mg tablet 40 mg PO BID #60 tab 06/30/19 09/07/19 Rx potassium chloride 20 mEq 20 meq PO BID #60 tab 06/30/19 09/07/19 Rx tablet,extended release fluticasone propionate 2 sprays INTNAS DAILY PRN 07/13/19 09/07/19 History lactulose 30 ml PO QAM 07/13/19 09/07/19 History spironolactone 50 mg PO QAM 07/13/19 09/07/19 History carvedilol 6.25 mg PO BID #60 tab 08/09/19 09/07/19 Rx folic acid 1 mg tablet 1 mg PO BID #60 tab 08/20/19 09/07/19 Rx ropinirole 2 mg tablet 2 mg PO HS #30 tab 08/20/19 09/07/19 Rx Basaglar KwikPen U-100 Insulin See Rx Instructions .ROUTE 08/28/19 09/07/19 History .COMPLEX PRN losartan 100 mg PO QAM 08/28/19 09/07/19 History pantoprazole 40 mg PO QAM 09/07/19 09/07/19 History Patient History Medical History Anemia Anxiety Cardiac murmur Diabetes mellitus, type 2 Diverticular disease Duodenal ulcer Esophageal varices Gastric ulcer GERD (gastroesophageal reflux disease) History of recent blood transfusion 06/2019 Hyperlipidemia Hypertension Liver cirrhosis Nausea and vomiting after administration of anesthetic agent Osteoarthritis Psoriatic arthritis Restless leg syndrome Right forearm injury Surgical History History of anesthesia reaction difficult to wake after bladder tack sx History of bilateral cataract extraction History of bladder surgery bladder tack History of colonoscopy History of esophagogastroduodenoscopy (EGD) multiple---[place] 06/22/[place] [facility] [place] of hemiarthroplasty of right shoulder January 2018 post fracture History of repair of right rotator cuff History of revision of total shoulder arthroplasty Right shoulder, 12/29/18 History of tooth extraction all teeth S/P ORIF (open reduction internal fixation) fracture R shoulder, January 2018 Family History Grandmother (Paternal) Family history of diabetes mellitus Father COPD (chronic obstructive pulmonary disease) Mother Hypertension Family/Other Cancer Sister Ovarian cancer Social History Preferred Language: Stateless Communication Ability: Effective Visual Impairment: Limited Hearing Ability: Normal Multicultural Manager Required: No Beliefs That Will Affect Care: None marital status: Current Living Situation: Spouse Current Living Situation Comment: Lives with and son current occupational status: retired Other Information That Helps Us Care for You: No Feels Safe at Home: Yes Safety Concerns: Feels Safe At This Time Smoking Status: Unknown if ever smoked Hx Alcohol Use: No Hx Substance Use: No Childhood Exposure to Second-Hand Smoke: Yes Other Diet Comment: regular Dental Care, Regularly: No Physical Activity Frequency: Does not Exercise Seatbelt Use: sometimes Review of Systems Constitutional: no fever Eyes: no worsening vision and no problem reported Ear, Nose, Mouth, Throat: no problem reported Respiratory: no cough and no dyspnea Cardiovascular: no chest pain, no palpitations and no edema Gastrointestinal: no abdominal pain, no nausea, no vomiting and no diarrhea/loose stools Genitourinary: no dysuria and no hematuria Musculoskeletal: no back pain Integumentary: no rash Neurologic: no falls, no dizziness and no confusion Physical Exam 2 Constitutional: not in distress Eyes: PERRL, conjunctivae normal, anicteric sclerae ENMT: external ear and nose normal, oropharynx normal Neck: trachea midline, no thyromegaly Respiratory: normal respiratory effort (diminished BS L base) Cardiovascular: Rate/Rhythm: regular rate and regular rhythm Extremities: + edema (2+ pretibial pitting edema) Gastrointestinal (Abdomen): normal bowel sounds, soft, nontender, no hepatosplenomegaly Musculoskeletal: Extremities: no cyanosis Skin: no rashes, warm and dry Neurologic: awake; not confused Results & Data Vital Signs (Past 12 Hours) Vital Signs Temp Pulse Pulse Resp BP Pulse Ox 09/10/19 08:00 72 09/10/19 07:44 36.6 C 69 18 164/79 H 93 09/10/19 04:25 36.7 C 72 20 144/75 H 94 09/09/19 23:43 77 09/09/19 23:18 36.7 C 72 22 152/76 H 96 Laboratory Results Laboratory Tests 09/07/19 09/09/19 09/10/19 19:40 05:29 05:50 WBC 4.04 L Hgb 7.7 L 9.8 L Hct 30.9 L Plt Count 45 L Sodium Potassium Chloride Carbon Dioxide BUN Creatinine Glucose Urine Color Dark Yellow Urine Appearance Clear Urine pH 5.0 Ur Specific [place] 1.015 Urine Protein 2+ H Urine Glucose (UA) Negative Urine Ketones Negative Urine Blood 2+ H Urine Nitrite Negative Ur Leukocyte Esterase 1+ H Urine WBC (Auto) 1-5 Urine RBC (Auto) 10-30 H U Hyaline Cast (Auto) 1-5 U Epithel Cells (Auto) >30 H Urine Bacteria (Auto) Negative 09/10/19 05:50 WBC Hgb Hct Plt Count Sodium 142 Potassium 5.3 H Chloride 117 H Carbon Dioxide 21 BUN 56 H Creatinine 2.44 H Glucose 175 H Urine Color Urine Appearance Urine pH Ur Specific [place] Urine Protein Urine Glucose (UA) Urine Ketones Urine Blood Urine Nitrite Ur Leukocyte Esterase Urine WBC (Auto) Urine RBC (Auto) U Hyaline Cast (Auto) U Epithel Cells (Auto) Urine Bacteria (Auto) Diagnostic Findings Renal US 07/07: The right kidney measures 11.4 x 5.4 x 4.3 cm and the left kidney measures 11.5 x 5.4 x 4.6 cm. A 1.1 cm left renal cyst is noted. Both ureteral jets were identified. PG Care Time/CCT Total # of Minutes Spent Total Time Spent with Patient: Total time spent is greater than 50% in coordination of care (as documented) at patient's floor/unit and/or counseling patient:
[2019-09-10] MEDS: ACETAMINOPHEN 325 MG TAB PO PRN (16:11)
[2019-09-10 19:21] LABS: Appearance Urine Clear (Clear); Bacteria Urine Automated Negative (Negative); Bilirubin Urine Negative (Negative); Blood Urine 3+ (Negative); Cast Urine Automated 0 /lpf (0-5); Color Urine Dark Yellow; Epithelial Cell Urine Auto >30 /lpf (0-5); Glucose Urine UA Negative (Negative); Ketones Urine Negative (Negative); Leukocyte Esterase Urine Negative (Negative); Nitrite Urine Negative (Negative); Protein Urine 2+ (Negative); Specific Gravity Urine 1.019 (1.000-1.030); Urobilinogen Urine Negative (Negative)
[2019-09-10 19:36] LABS: Creatinine Urine Random 92.6 mg/dl; Protein Creatinine Ratio Urine 1.6 (0-0.2); Total Protein Urine Random 147.3 mg/dl (0-11.9)
[2019-09-10] MEDS: ROPINIROLE HCL 1 MG TABLET PO SCH (20:08)
--- NOTE | 2019-09-10 22:19 | Hospitalist Progress Note ---
Date of Service September 10, 2019 Assessment & Plan (1) Acute kidney injury: Appreciate nephrology review Secondary to over diuresis in setting of losartan use in addition. Hyperkalemia due to supplementation and spironolactone. Discontinued Lasix, spironolactone today. Already off losartan and this should not be restarted on discharge as appears to be a med rec error from last admission. Suspect will improve with above measures without need for IV fluids. (2) Hyperkalemia: Secondary to supplementation and spironolactone use. Both discontinued. Repeat BMP in AM. (3) Pulmonary edema: Acute on chronic mostly non cardiac pulmonary edema secondary to liver cirrhosis/hypoalbuminemia. HENRIQUE today with probable over diuresis but also in setting of losartan use. She appears euvolemic on exam currently. Possibly due to Echo in April was relatively unremarkable for EF and valvular disease therefore do not feel this represents CHF. Elevate HOV > 30 degrees at all times Fluid balance and stable weight do not appear to fit clinical picture of a vast improvement with lasix from admission till yesterday. No real change in breathing since yesterday suggesting she reached a euvolemic state then. (4) Pneumonia: Ruled out. Procalcitonin negative. CXR similar to previous - I would have suspected her CXR to have significantly worsened off antibiotics. History much more consistent with persistent pulmonary edema. Discontinued antibiotics. (5) 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: MELD score on admission 17 with 6% 3 month mortality. Patient in process of getting established with another dough machine operator through [facility]. Continue rifaximin, folic acid, lactulose. Holding spironolactone due to hyperkalemia. No hepatic encephalopathy but previous hyperammonemia noted. (6) Iron deficiency anemia: Transfused 2 units packed RBCs on 09/09 which definitely appears to have helped with her shortness of breath and fatigue. Recommend aiming to keep Hgb > 9 in future. Hgb 9.8 today. FOB negative. Iron sats actually good prior to transfusion at 32 % - will continue her chronic iron supplementation. (7) Hypertension: Continue carvedilol 6.25 mg p.o. twice daily. Stop losartan - suspected to be a med rec error on last admission. Unfortunately had dose on 09/08. (8) Peptic ulcer disease: Pantoprazole 40 mg p.o. daily (9) DM type 2 (diabetes mellitus, type 2): HbA1C 7.7 Continue lantus 10 units QAM with correction factor bolus insulin. BSG ACHS. 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 Missed appointment. Dr Hylton aware patient in hospital, will need to rearrange appointment when discharged. (11) Psoriatic arthritis: No active lesions seen. (12) Rheumatoid arthritis: No active flare synovitis. (13) Obstructive sleep apnea: Mild on prior sleep study in 03/2019. CPAP/BiPAP @ night to help with this and pulmonary edema. Severe nocturnal hypoxemia on same report likely due to pulmonary edema (severe orthopenea described by patient). (14) DVT prophylaxis: Discontinued heparin due to thrombocytopenia and anemia. Will restart if Plt improve. Continue SCDs. (15) Discharge planning issues: PT/OT. Likely to need placement on discharge. Need for creatinine to be stable, and euvolemic state to be discharged. Subjective No change with the patient this morning. She feels well and much improved since admission. Still with some orthopnea but vastly improved. No shortness of breath at rest. Much less fatigued since having blood transfusions. No melena or diarrhea noted. No nausea or vomiting. Review of Systems Review of Systems: All systems reviewed & are unremarkable except as noted in HPI & below Physical Exam Constitutional: well developed; + not well nourished and no acute distress Eyes: + anicteric sclerae; normal pupil size ENMT: external ear and nose normal, oropharynx normal Neck: trachea midline Respiratory: normal respiratory effort; no respiratory distress, no labored breathing and does not use accessory muscles Auscultation: no diminished lung sounds, no crackles, no rales, no rhonchi and no wheezes Cardiovascular: Rate/Rhythm: regular rate and regular rhythm Vessels: no JVD Extremities: + pedal edema (1+ b/l equal) Gastrointestinal (Abdomen): normal bowel sounds, soft, nontender, no hepatosplenomegaly Musculoskeletal: no cyanosis or clubbing, extremities motor strength 5/5 Skin: no rashes, warm and dry Neurologic: moves all extremities and awake; no focal motor deficits and not confused Psychiatric: A+Ox3, euthymic affect Results & Data Vital Signs (Past 12 Hours) Vital Signs Temp Pulse Pulse Resp BP Pulse Ox 01/23/20 19:55 36.9 C 74 16 170/70 H 93 09/10/19 15:53 71 09/10/19 15:34 37.1 C 70 21 168/70 H 94 09/10/19 12:19 36.8 C 71 20 154/79 H 94 PG Care Time/CCT Total # of Minutes Spent Total Time Spent with Patient: Total time spent is greater than 50% in coordination of care (as documented) at patient's floor/unit and/or counseling patient: Coding Level of Care Code 86427 Subseq Hosp Care Lvl 3 Diagnoses Acute kidney injury N17.9 Hyperkalemia E87.5 Pulmonary edema J81.0 Chronicity: acute Pneumonia J18.9 Laterality: left Lung location: unspecified part of lung Pneumonia type: due to unspecified organism 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 K75.81; K74.60 Iron deficiency anemia D50.8 Iron deficiency anemia type: other iron deficiency Hypertension I10 Hypertension type: essential hypertension Peptic ulcer disease K27.9 DM type 2 (diabetes mellitus, type 2) E11.65 Diabetes mellitus superintendent container terminal insulin use: without superintendent container terminal use Diabetes mellitus complication status: with hyperglycemia Polyclonal gammopathy D89.0 Psoriatic arthritis L40.50 Rheumatoid arthritis M06.9 Rheumatoid arthritis location: multiple sites Rheumatoid factor presence: unspecified presence Obstructive sleep apnea G47.33 DVT prophylaxis Z29.9 Discharge planning issues Z02.9 (1) Pulmonary edema Chronicity: acute Qualified Code(s): J81.0 - Acute pulmonary edema (2) Pneumonia Laterality: left Lung location: unspecified part of lung Pneumonia type: due to unspecified organism Qualified Code(s): J18.9 - Pneumonia, unspecified organism (3) Iron deficiency anemia Iron deficiency anemia type: other iron deficiency Qualified Code(s): D50.8 - Other iron deficiency anemias (4) Hypertension Hypertension type: essential hypertension Qualified Code(s): I10 - Essential (primary) hypertension (5) DM type 2 (diabetes mellitus, type 2) Diabetes mellitus superintendent container terminal insulin use: without prison use Diabetes mellitus complication status: with hyperglycemia Qualified Code(s): E11.65 - Type 2 diabetes mellitus with hyperglycemia (6) Rheumatoid arthritis Rheumatoid arthritis location: multiple sites Rheumatoid factor presence: unspecified presence Qualified Code(s): M06.9 - Rheumatoid arthritis, unspecified
[2019-09-11 07:05] LABS: Hematocrit (blood only) 29.7 % (37-47); Hemoglobin 9.6 g/dL (12.0-16.0); Mean Corpuscular Hemoglobin 29.8 pg (25-34); Mean Corpuscular Hgb Conc 32.3 g/dL (32-36); Mean Corpuscular Volume 92.2 fL (80-100); RDW Coefficient of Variation 17.4 % (11.5-14.5); RDW Standard Deviation 58.2 fL (36.4-46.3); Red Blood Count 3.22 M/uL (4.2-5.4); White Blood Count 4.62 K/uL (4.8-10.8)
[2019-09-11 07:32] LABS: Mean Platelet Volume 11.4 fL (7.4-10.4); Platelet Count 50 K/uL (130-400)
[2019-09-11 07:41] LABS: Basophils # (auto) 0.01 K/uL (0-0.2); Basophils % (auto) 0.2 %; Eosinophils # (auto) 0.16 K/uL (0-0.5); Eosinophils % (auto) 3.5 %; Immature Granulocytes # (auto) 0.01 K/uL (0.00-0.02); Immature Granulocytes % (auto) 0.2 %; Lymphocytes # (auto) 0.94 K/uL (1.2-3.4); Lymphocytes % (auto) 20.3 %; Monocytes # (auto) 0.45 K/uL (0.11-0.59); Monocytes % (auto) 9.7 %; Neutrophils # (auto) 3.05 K/uL (1.4-6.5); Neutrophils % (auto) 66.1 %
[2019-09-11 07:42] LABS: Calcium 8.9 mg/dl (8.5-10.1); Creatinine Clr Calc Pharmacy 23.9 ml/min; Est GFR (African American) 26.6
[2019-09-11] MEDS: INSULIN ASPART 100 UNITS/ML 3 ML PEN SC SCH ×4 (07:58→20:43)
[2019-09-11] MEDS: PANTOprazole 40 MG TAB PO SCH (07:59)
[2019-09-11] MEDS: FOLIC ACID 1 MG TAB PO SCH ×2 (07:59→20:37)
[2019-09-11] MEDS: INSULIN GLARGINE SOLOSTAR 100 UNITS/ML 3 ML PEN SC SCH (07:59)
[2019-09-11] MEDS: RIFAXIMIN 550 MG TABLET PO SCH ×2 (07:59→20:36)
[2019-09-11] MEDS: carvediloL 6.25 MG TAB PO SCH ×2 (07:59→20:36)
[2019-09-11] MEDS: LACTULOSE SYRUP 20 GM/30 ML UDC PO SCH (07:59)
[2019-09-11] MEDS: FERROUS SULFATE 325 MG TAB PO SCH (07:59)
[2019-09-11] MEDS: ACETAMINOPHEN 325 MG TAB PO PRN (09:34)
--- NOTE | 2019-09-11 10:00 | Nephrology Progress Note ---
Date of Service September 11, 2019 Assessment & Plan (1) Acute kidney injury: HENRIQUE due to anemia in the setting of ARB therapy -- Patient is nonoliguric. I&O's have been matched -- Creatinine trending down following blood transfusion and holding ARB therapy -- Electrolyte balance is acceptable. No acute indication for HD -- BP is mildly elevated. Carvedilol dose could be titrated. Recommend holding ARB therapy until kidney function recovers -- Monitor serial PRP (2) Hematuria: -- Urinalysis is not c/w infection -- Will order renal US -- If persistent may need to consider cystoscopy (3) Chronic kidney disease, stage III (moderate): -- Baseline Cr ~ 1.3 (4) Anemia: -- Transfused 1 u PRBC this admission (5) Liver cirrhosis: (6) Pulmonary hypertension: Subjective Mrs. Sherman was seen & examined in her hospital room this morning. She denies fever, abdominal pain or overt blood loss. He primary concern is R shoulder discomfort. Review of Systems Constitutional: no fever Eyes: no worsening vision and no problem reported Ear, Nose, Mouth, Throat: no problem reported Respiratory: no cough and no dyspnea Cardiovascular: no chest pain, no palpitations and no edema Gastrointestinal: no abdominal pain, no nausea, no vomiting and no diarrhea/loose stools Genitourinary: no dysuria and no hematuria Musculoskeletal: no back pain Integumentary: no rash Neurologic: no falls, no dizziness and no confusion Physical Exam Constitutional: not in distress Eyes: PERRL, conjunctivae normal, anicteric sclerae ENMT: external ear and nose normal, oropharynx normal Neck: trachea midline, no thyromegaly Respiratory: normal respiratory effort (diminished BS L base) Cardiovascular: Rate/Rhythm: regular rate and regular rhythm Extremities: + edema (2+ pretibial pitting edema) Gastrointestinal (Abdomen): normal bowel sounds, soft, nontender, no hepatosplenomegaly Musculoskeletal: Extremities: no cyanosis Skin: no rashes, warm and dry Neurologic: awake; not confused Results & Data Vital Signs (Past 12 Hours) Vital Signs Temp Pulse Pulse Resp BP Pulse Ox 09/11/19 09:20 36.4 C L 70 18 177/83 H 96 09/11/19 07:53 36.8 C 68 19 149/66 H 91 09/11/19 07:02 75 09/11/19 04:00 36.7 C 75 20 157/71 H 95 09/10/19 23:15 36.6 C 76 20 173/75 H 96 Laboratory Results Laboratory Tests 09/10/19 09/11/19 09/11/19 18:07 06:24 06:24 WBC 4.62 L Hgb 9.6 L Plt Count 50 L Sodium 142 Potassium 5.0 Chloride 116 H Carbon Dioxide 21 BUN 57 H Creatinine 2.21 H Glucose 113 H Urine Color Dark Yellow Urine Appearance Clear Urine pH 5.0 Ur Specific [place] 1.019 Urine Protein 2+ H Urine Glucose (UA) Negative Urine Ketones Negative Urine Blood 3+ H Urine WBC (Auto) 1-5 Urine RBC (Auto) 10-30 H U Hyaline Cast (Auto) 0 U Epithel Cells (Auto) >30 H Urine Bacteria (Auto) Negative PG Care Time/CCT Total # of Minutes Spent Total Time Spent with Patient: Total time spent is greater than 50% in coordination of care (as documented) at patient's floor/unit and/or counseling patient: Coding Level of Care Code 42521 Subseq Hosp Care Lvl 3 Diagnoses Acute kidney injury N17.9 Hematuria R31.9 Chronic kidney disease, stage III (moderate) N18.3 Anemia D64.9 Liver cirrhosis K74.60 Pulmonary hypertension I27.20
--- NOTE | 2019-09-11 14:34 | Ultrasound Report ---
ULTRASOUND KIDNEYS AND BLADDER CLINICAL HISTORY: Hematuria. COMPARISON STUDY: Renal ultrasound dated 06/19/2019. Abdominal CT dated 08/05/2018. TECHNIQUE: Real-time, grayscale, and color flow sonography of the kidneys and bladder is performed. I mages are reviewed in the transverse and longitudinal planes. FINDINGS: Kidneys: The kidneys are normal in size and echotexture. The right kidney measures 12.5 cm in length and the left kidney measures 11.9 cm in length. There is no hydronephrosis. No shadowing renal calcul i are clearly identified. A 1.8 cm cyst is noted in the left lower pole. There is no sonographic evid ence of contour deforming renal mass lesion. No perinephric fluid is identified. Bladder: The bladder is normal in appearance. Ureteral jets were not seen. Upper abdomen: The liver is cirrhotic in morphology and heterogeneous in echotexture. IMPRESSION: 1. The kidneys are normal in size and without hydronephrosis. 2. The bladder was normal as visualized. 3. Cirrhotic liver morphology. ACT 112: Negative or not required by law. Electronically signed by: Alexander Feldman M.D. 09/11/2019 2:33 PM
[2019-09-11] MEDS ORDERED: FUROSEMIDE 40 MG in SYRINGE 0 ML IV ONE (19:30)
[2019-09-11] MEDS: ROPINIROLE HCL 1 MG TABLET PO SCH (20:36)
--- NOTE | 2019-09-11 23:58 | Hospitalist Progress Note ---
Date of Service September 11, 2019 Assessment & Plan (1) Acute kidney injury: Appreciate nephrology review Secondary to over diuresis in setting of losartan use. Hyperkalemia now resolved with stopping supplementation and spironolactone. Given x1 40mg IV lasix given worsening lung exam and shortness of breath. I suspect Cr will still continue to improve off spironolactone and losartan but I'm concerned she would be a lot worse tomorrow if she had nothing today. (2) Hyperkalemia: Resolved. Likely does not have to go back on supplementation on discharge. (3) Pulmonary edema: Acute on chronic mostly non cardiac pulmonary edema secondary to liver cirrhosis/hypoalbuminemia. Starting to appear hypervolemic on exam again (not as bad as the first day I had her on service). Echo in April was relatively unremarkable for EF and valvular disease therefore do not feel this represents CHF. Elevate HOV > 30 degrees at all times x1 lasix 40mg IV given today. Can likely start on oral lasix or bumex tomorrow +/- lower dose of spironolactone but will await labs in AM to decide. (4) Pneumonia: Ruled out. Procalcitonin negative. CXR similar to previous - I would have suspected her CXR to have significantly worsened off antibiotics. History much more consistent with persistent pulmonary edema. Discontinued antibiotics. (5) 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: MELD score on admission 17 with 6% 3 month mortality. 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 Continue rifaximin, folic acid, lactulose. Holding spironolactone due to hyperkalemia. No hepatic encephalopathy but previous hyperammonemia noted. (6) Iron deficiency anemia: Transfused 2 units packed RBCs on 09/09 which definitely appears to have helped with her shortness of breath and fatigue. Recommend aiming to keep Hgb > 9 in future. Hgb 9.6 today. FOB negative. Iron sats actually good prior to transfusion at 32 % - will continue her chronic iron supplementation. (7) Hypertension: Hypertensive due to stopping many of her medication due to HENRIQUE. Agree with Dr Calles and will increase carvedilol given current HR/BP. Hopefully lasix will also help. Stop losartan - suspected to be a med rec error on last admission. Unfortunately had dose on 09/08. (8) Peptic ulcer disease: Pantoprazole 40 mg p.o. daily (9) DM type 2 (diabetes mellitus, type 2): HbA1C 7.7 Increase lantus 15 units QAM with Novlog carb 8 and correction factor 25. BSG ACHS. 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 Missed appointment. Dr Hylton aware patient in hospital, will need to rearrange appointment when discharged. (11) Psoriatic arthritis: No active lesions seen. (12) Rheumatoid arthritis: No active flare synovitis. (13) Obstructive sleep apnea: Mild on prior sleep study in 03/2019. CPAP/BiPAP @ night to help with this and pulmonary edema. Severe nocturnal hypoxemia on same report likely due to pulmonary edema (severe orthopenea described by patient). (14) DVT prophylaxis: Discontinued heparin due to thrombocytopenia and anemia. Will restart if Plt improve, appear stable around 50. Continue SCDs. (15) Discharge planning issues: Continue PT/OT. Accepted to [facility] on discharge. Not yet medically stable. Subjective Patient at baseline shortness of breath. No chest pain, fever, chills, cough. Improved shortness of breath since admission but not as good as nd after her blood transfusions. Anemia - no melena, epistaxis, external bleeding. Review of Systems Review of Systems: All systems reviewed & are unremarkable except as noted in HPI & below Physical Exam Constitutional: well developed; + not well nourished and no acute distress Eyes: + anicteric sclerae; normal pupil size ENMT: external ear and nose normal, oropharynx normal Neck: trachea midline Respiratory: normal respiratory effort; no respiratory distress, no labored breathing and does not use accessory muscles Auscultation: + diminished lung sounds (less air entry than yesterday at bases); no crackles, no rales, no rhonchi and no wheezes Cardiovascular: Rate/Rhythm: regular rate and regular rhythm Vessels: no JVD Extremities: + pedal edema (1+ b/l equal) Gastrointestinal (Abdomen): normal bowel sounds, soft, nontender, no hepatosplenomegaly Musculoskeletal: no cyanosis or clubbing, extremities motor strength 5/5 Skin: no rashes, warm and dry Neurologic: moves all extremities, + focal motor deficit (4/5 left hip flexion and ankle dorsiflexion) and awake; not confused Psychiatric: A+Ox3, euthymic affect Results & Data Vital Signs (Past 12 Hours) Vital Signs Temp Pulse Pulse Resp BP BP Pulse Ox 09/11/19 19:20 36.6 C 73 18 179/84 H 95 09/11/19 16:00 70 09/11/19 15:16 36.5 C 69 18 177/74 H 94 PG Care Time/CCT Total # of Minutes Spent Total Time Spent with Patient: Total time spent is greater than 50% in coordination of care (as documented) at patient's floor/unit and/or counseling patient: Coding Level of Care Code 41780 Subseq Hosp Care Lvl 3 Diagnoses Acute kidney injury N17.9 Hyperkalemia E87.5 Pulmonary edema J81.0 Chronicity: acute Pneumonia J18.9 Laterality: left Lung location: unspecified part of lung Pneumonia type: due to unspecified organism 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 K75.81; K74.60 Iron deficiency anemia D50.8 Iron deficiency anemia type: other iron deficiency Hypertension I10 Hypertension type: essential hypertension Peptic ulcer disease K27.9 DM type 2 (diabetes mellitus, type 2) E11.65 Diabetes mellitus complication status: with hyperglycemia Diabetes mellitus continuous churn buttermaker insulin use: without mcfp use Polyclonal gammopathy D89.0 Psoriatic arthritis L40.50 Rheumatoid arthritis M06.9 Rheumatoid arthritis location: multiple sites Rheumatoid factor presence: unspecified presence Obstructive sleep apnea G47.33 DVT prophylaxis Z29.9 Discharge planning issues Z02.9 (1) Rheumatoid arthritis Rheumatoid arthritis location: multiple sites Rheumatoid factor presence: unspecified presence Qualified Code(s): M06.9 - Rheumatoid arthritis, unspecified (2) DM type 2 (diabetes mellitus, type 2) Diabetes mellitus complication status: with hyperglycemia Diabetes mellitus mcfp insulin use: without continuous churn buttermaker use Qualified Code(s): E11.65 - Type 2 diabetes mellitus with hyperglycemia (3) Pulmonary edema Chronicity: acute Qualified Code(s): J81.0 - Acute pulmonary edema (4) Iron deficiency anemia Iron deficiency anemia type: other iron deficiency Qualified Code(s): D50.8 - Other iron deficiency anemias (5) Hypertension Hypertension type: essential hypertension Qualified Code(s): I10 - Essential (primary) hypertension (6) Pneumonia Laterality: left Lung location: unspecified part of lung Pneumonia type: due to unspecified organism Qualified Code(s): J18.9 - Pneumonia, unspecified organism
[2019-09-12] MEDS ORDERED: PHARMACY GLYCEMIC MGMT CONSULT PRN (07:00)
[2019-09-12 07:59] LABS: Hematocrit (blood only) 28.9 % (37-47); Hemoglobin 9.3 g/dL (12.0-16.0); Mean Corpuscular Hemoglobin 29.6 pg (25-34); Mean Corpuscular Hgb Conc 32.2 g/dL (32-36); RDW Coefficient of Variation 17.4 % (11.5-14.5); RDW Standard Deviation 57.4 fL (36.4-46.3); Red Blood Count 3.14 M/uL (4.2-5.4); White Blood Count 4.07 K/uL (4.8-10.8)
[2019-09-12 08:02] LABS: Mean Platelet Volume 10.6 fL (7.4-10.4); Platelet Count 55 K/uL (130-400)
[2019-09-12 08:26] LABS: BUN Creatinine Ratio 29.2 (10-20); Calcium 8.7 mg/dl (8.5-10.1); Creatinine Clr Calc Pharmacy 26.3 ml/min; Est GFR (Non-African American) 25.9; Potassium 5.1 mmol/L (3.5-5.1)
[2019-09-12 08:28] LABS: Basophils # (auto) 0.02 K/uL (0-0.2); Basophils % (auto) 0.5 %; Eosinophils # (auto) 0.13 K/uL (0-0.5); Eosinophils % (auto) 3.2 %; Immature Granulocytes # (auto) 0.01 K/uL (0.00-0.02); Immature Granulocytes % (auto) 0.2 %; Lymphocytes # (auto) 0.76 K/uL (1.2-3.4); Lymphocytes % (auto) 18.7 %; Monocytes # (auto) 0.49 K/uL (0.11-0.59); Neutrophils # (auto) 2.66 K/uL (1.4-6.5); Neutrophils % (auto) 65.4 %
[2019-09-12] MEDS: INSULIN GLARGINE SOLOSTAR 100 UNITS/ML 3 ML PEN SC SCH (08:33)
[2019-09-12] MEDS: INSULIN ASPART 100 UNITS/ML 3 ML PEN SC SCH ×4 (08:33→20:08)
[2019-09-12] MEDS: LACTULOSE SYRUP 20 GM/30 ML UDC PO SCH (08:36)
[2019-09-12] MEDS: FERROUS SULFATE 325 MG TAB PO SCH (08:36)
[2019-09-12] MEDS: FOLIC ACID 1 MG TAB PO SCH ×2 (08:36→20:07)
[2019-09-12] MEDS: RIFAXIMIN 550 MG TABLET PO SCH ×2 (08:36→20:07)
[2019-09-12] MEDS: PANTOprazole 40 MG TAB PO SCH (08:37)
[2019-09-12] MEDS: ACETAMINOPHEN 325 MG TAB PO PRN (08:53)
--- NOTE | 2019-09-12 10:05 | Pharmacy Report ---
Glycemic Control Consultation - Date of Service September 12, 2019 - Scope Scope: Glycemic Pharmacist consulted by Dr Flores on 09/12/2019 for glycemic control and to write orders per [facility] inpatient glycemic control protocol - Objective Weight: 72.8 kg Accuchecks BSG (last 24hrs): 09/11/19 09/11/19 09/11/19 12:30 16:52 20:34 Glucose POC Glucose 230 H 100 H 102 H 09/12/19 09/12/19 07:37 07:45 Glucose 170 H POC Glucose 180 H Laboratory Data (last 24hrs): 09/12/19 07:45 Potassium 5.1 Carbon Dioxide 23 Anion Gap 3.0 Creatinine 2.00 H Est Cr Clr Drug Dosing 26.3 HbA1c: Hemoglobin A1c 7.7 % (4.5-5.6) H 09/09/19 05:29 - Recent Pertinent Medications Outpatient Anti-diabetic Regimen: * Basaglar, unknown dose * A1c = 7.7 % 09/09 - Assessment & Plan Assessment & Plan: ASSESSMENT: * Pt is a 64yo F type II diabetic. PMHx consistent with HTN, cirrhosis 2/2 MAE, CHF, HTN, microcytic anemia. She is ordered a diet. BSGs tend to be higher in AM and lunch then come down nicely at dinner and HS. We will continue with current insulin dosing and titrate as needed. PLAN FOR INPATIENT GLYCEMIC CONTROL: * Basal insulin * Lantus 15u QAM * Bolus insulin * NovoLog per scale ACHS or Q6hrs while NPO * Goal Range: Low 110 mg/dL - High 140 mg/dL * Correction Factor: 25 mg/dL/unit * Nutritional / Prandial insulin per carb ratio of 1 unit per 8 grams CHO consumed * Please note that the plan above was derived based on current level of insulin resistance and hospital stress. These recommendations are appropriate for inpatient admission only. Plan of care upon discharge will need to be reassessed to avoid potential outpatient hypo/hyperglycemia. Thank you.
[2019-09-12] MEDS: BUMETANIDE 1 MG TAB PO SCH (10:50)
[2019-09-12] MEDS: carvediloL 12.5 MG TAB PO SCH ×2 (10:50→20:06)
--- NOTE | 2019-09-12 11:07 | Nephrology Progress Note ---
Date of Service September 12, 2019 Assessment & Plan (1) Acute kidney injury: Angela admitted with GARCIA and LE edema and found to have HENRIQUE. Renal function started to decline starting Apr 2019, with proteinuria nd hematuria. USG normal. No DM retinopathy. Has cirrhosis with MAE and pancytopenia. Received blood transfusion. Renal function and Hb slightly improved with PRBC transfusion. Diuretics has been on hold but again restarted this am. Unclear etiology for progressive worsening of renal function over last 4 months. 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 renal vasculitis with h/o Rheumatoid arthritis. Would not expect Proteinuria/hematuria with hepatorenal syndrome. --will order serology --continue on Bumex 2 mg daily --BP is mildly elevated. Carvedilol dose could be titrated. OK to restart spironolactone if BP remains high --Monitor serial PRP Will follow Subjective Angela was seen and examined this morning. She was having some SOB this morning but improved after receiving Bumex she gets easily SOB moving from bed to chair and when she needed to go up stairs. Renal function improving, cr down to 2.0 , volume status acceptable, electrolyte acceptable. Review of Systems Review of Systems: All systems reviewed & are unremarkable except as noted in HPI & below Physical Exam Constitutional: WD/WN, vitals as above + ill appearing; no acute distress Neck: normal visual inspection Respiratory: normal respiratory effort, lungs clear to auscultation no respiratory distress Cardiovascular: Rate/Rhythm: regular rate and regular rhythm Heart Sounds: normal S1 and normal S2 Extremities: + edema Skin: no rashes, warm and dry Neurologic: moves all extremities and awake; no focal motor deficits and not confused Psychiatric: A+Ox3, euthymic affect Results & Data Vital Signs (Past 12 Hours) Vital Signs Temp Pulse Pulse Pulse Resp BP BP 09/12/19 07:00 36.8 C 78 20 146/63 H 09/12/19 06:22 84 09/12/19 04:00 36.8 C 76 22 173/76 H Pulse Ox 09/12/19 07:00 92 09/12/19 06:22 09/12/19 04:00 94 PG Care Time/CCT Total # of Minutes Spent Total Time Spent with Patient: Total time spent is greater than 50% in coordination of care (as documented) at patient's floor/unit and/or counseling patient: Coding Level of Care Code 66547 Subseq Hosp Care Lvl 3 Diagnoses Acute kidney injury N17.9
[2019-09-12] MEDS ORDERED: BUMETANIDE 1 MG TAB PO STA (18:54)
[2019-09-12] MEDS: ROPINIROLE HCL 1 MG TABLET PO SCH (20:16)
[2019-09-12] MEDS: OXYCODONE HCL IR 5 MG TAB (IMMEDIATE RELEASE) PO PRN (20:23)
[2019-09-12] MEDS ORDERED: INSULIN GLARGINE SOLOSTAR 100 UNITS/ML 3 ML PEN SC ONE (21:00)
--- NOTE | 2019-09-12 22:01 | Hospitalist Progress Note ---
Date of Service September 12, 2019 Assessment & Plan (1) Acute kidney injury: Appreciate nephrology review Secondary to over diuresis in setting of losartan use. Hyperkalemia now resolved with stopping supplementation and spironolactone. Improving even with lasix 40mg IV yesterday. Switched to bumex PO today. Since she is still hypervolemic on exam will give x2 2mg PO bumex today and repeat BMP in AM. (2) Hyperkalemia: Resolved. Likely does not have to go back on supplementation on discharge but plan on reintroducing spironolactone at some point. (3) Pulmonary edema: Acute on chronic mostly non cardiac pulmonary edema secondary to liver cirrhosis/hypoalbuminemia. Still hypervolemic on exam despite lasix 40mg IV yesterday, therefore will give total bumex 4mg PO today and monitor renal function. Echo in April was relatively unremarkable for EF and valvular disease therefore do not feel this represents CHF. Elevate HOV > 30 degrees at all times Defer reintroducing spironolactone given current K 5.0 (4) Pneumonia: Ruled out. Procalcitonin negative. CXR similar to previous - I would have suspected her CXR to have significantly worsened off antibiotics. History much more consistent with persistent pulmonary edema. Discontinued antibiotics. (5) 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: MELD score on admission 17 with 6% 3 month mortality. Patient in process of getting established with another cattle broker through [facility]. Continue rifaximin, folic acid, lactulose. Holding spironolactone due to hyperkalemia. No hepatic encephalopathy but previous hyperammonemia noted. (6) Iron deficiency anemia: Transfused 2 units packed RBCs on 09/09 which definitely appears to have helped with her shortness of breath and fatigue. Recommend aiming to keep Hgb > 9 in future. Hgb 9.3 today. FOB negative. Iron sats actually good prior to transfusion at 32 % - will continue her chronic iron supplementation. (7) Hypertension: Hypertensive due to stopping many of her medication due to HENRIQUE. Agree with Dr Calles and will increase carvedilol given current HR/BP. Hopefully bumex will also help. Stop losartan - suspected to be a med rec error on last admission. Unfortunately had dose on 09/08. (8) Peptic ulcer disease: Pantoprazole 40 mg p.o. daily (9) DM type 2 (diabetes mellitus, type 2): HbA1C 7.7 Increase lantus 15 units QAM with Novlog carb 8 and correction factor 25. BSG ACHS. 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 Missed appointment. Dr Aureliano Holland aware patient in hospital, will need to rearrange appointment when discharged. (11) Psoriatic arthritis: No active lesions seen. (12) Rheumatoid arthritis: No active flare synovitis. (13) Obstructive sleep apnea: Mild on prior sleep study in 03/2019. CPAP/BiPAP @ night to help with this and pulmonary edema. Severe nocturnal hypoxemia on same report likely due to pulmonary edema (severe orthopenea described by patient). (14) DVT prophylaxis: Discontinued heparin due to thrombocytopenia and anemia. Will restart if Plt improve, appear stable around 50. Continue SCDs. (15) Discharge planning issues: Continue PT/OT. Accepted to [facility] on discharge. Not yet medically stable. Subjective No acute events overnight. Increased shortness of breath since yesterday. Since stopping diuretics she feels her legs are more swollen. Still not particularly short of breath at rest but mainly on exertion. Continued orthopnea which is better with her head elevated at night. She has been unable to tolerate CPAP at night. Also notes chronic catching her foot on objects which causes her to fall. Has to fiber picker her leg in order to get over objects, she is questioning whether she has foot drop on her left side. Review of Systems Review of Systems: All systems reviewed & are unremarkable except as noted in HPI & below Physical Exam Constitutional: well developed and well nourished; no acute distress Eyes: + anicteric sclerae; normal pupil size ENMT: external ear and nose normal, oropharynx normal Neck: trachea midline Respiratory: normal respiratory effort; no respiratory distress, no labored breathing, no retractions and does not use accessory muscles Auscultation: + breath sounds absent (bibasal) and + diminished lung sounds (continued reduced air entry from yesterday); no crackles, no rales, no rhonchi and no wheezes Cardiovascular: Rate/Rhythm: regular rate and regular rhythm Heart Sounds: no murmur Vessels: no JVD Extremities: + pedal edema (tight skin with 2+ to knees b/l equal) Gastrointestinal (Abdomen): normal bowel sounds, soft, nontender, no hepatosplenomegaly Musculoskeletal: no cyanosis or clubbing, extremities motor strength 5/5 Extremities: + abnormal strength (left hip flex 4/5, ankle dorsiflexion 4/5) Skin: no rashes, warm and dry Neurologic: moves all extremities, + focal motor deficit (4/5 left hip flexion and ankle dorsiflexion) and awake; not confused Psychiatric: A+Ox3, euthymic affect Lymphatic: no cervical or axillary lymphadenopathy Results & Data Vital Signs (Past 12 Hours) Vital Signs Temp Pulse Resp BP BP Pulse Ox 09/12/19 19:00 36.9 C 78 22 167/74 H 94 09/12/19 15:21 36.5 C 73 18 166/78 H 95 09/12/19 11:39 36.8 C 71 18 161/66 H 96 PG Care Time/CCT Total # of Minutes Spent Total Time Spent with Patient: Total time spent is greater than 50% in coordination of care (as documented) at patient's floor/unit and/or counseling patient: Coding Level of Care Code 89389 Subseq Hosp Care Lvl 2 Diagnoses Acute kidney injury N17.9 Hyperkalemia E87.5 Pulmonary edema J81.0 Chronicity: acute Pneumonia J18.9 Laterality: left Lung location: unspecified part of lung Pneumonia type: due to unspecified organism 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 K75.81; K74.60 Iron deficiency anemia D50.8 Iron deficiency anemia type: other iron deficiency Hypertension I10 Hypertension type: essential hypertension Peptic ulcer disease K27.9 DM type 2 (diabetes mellitus, type 2) E11.65 Diabetes mellitus complication status: with hyperglycemia Diabetes 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 insulin use: without half-way use Polyclonal gammopathy D89.0 Psoriatic arthritis L40.50 Rheumatoid arthritis M06.9 Rheumatoid arthritis location: multiple sites Rheumatoid factor presence: unspecified presence Obstructive sleep apnea G47.33 DVT prophylaxis Z29.9 Discharge planning issues Z02.9 (1) Rheumatoid arthritis Rheumatoid arthritis location: multiple sites Rheumatoid factor presence: unspecified presence Qualified Code(s): M06.9 - Rheumatoid arthritis, unspecified (2) DM type 2 (diabetes mellitus, type 2) Diabetes mellitus complication status: with hyperglycemia Diabetes mellitus half-way insulin use: without half-way use Qualified Code(s): E11.65 - Type 2 diabetes mellitus with hyperglycemia (3) Pulmonary edema Chronicity: acute Qualified Code(s): J81.0 - Acute pulmonary edema (4) Iron deficiency anemia Iron deficiency anemia type: other iron deficiency Qualified Code(s): D50.8 - Other iron deficiency anemias (5) Hypertension Hypertension type: essential hypertension Qualified Code(s): I10 - Essential (primary) hypertension (6) Pneumonia Laterality: left Lung location: unspecified part of lung Pneumonia type: due to unspecified organism Qualified Code(s): J18.9 - Pneumonia, unspecified organism
[2019-09-13 07:16] LABS: Hematocrit (blood only) 28.5 % (37-47); Mean Corpuscular Hemoglobin 29.4 pg (25-34); Mean Corpuscular Hgb Conc 31.6 g/dL (32-36); Mean Corpuscular Volume 93.1 fL (80-100); RDW Coefficient of Variation 17.5 % (11.5-14.5); RDW Standard Deviation 59.1 fL (36.4-46.3); Red Blood Count 3.06 M/uL (4.2-5.4); White Blood Count 3.99 K/uL (4.8-10.8)
[2019-09-13 07:19] LABS: Mean Platelet Volume 9.5 fL (7.4-10.4); Platelet Count 53 K/uL (130-400)
[2019-09-13 07:52] LABS: Albumin Level 2.1 gm/dl (3.4-5.0); BUN Creatinine Ratio 31.4 (10-20); Calcium 8.7 mg/dl (8.5-10.1); Creatinine Clr Calc Pharmacy 25.5 ml/min; Est GFR (African American) 29.3; Est GFR (Non-African American) 25.3
[2019-09-13 07:53] LABS: Phosphorus 4.1 mg/dl (2.5-4.9)
[2019-09-13] MEDS: RIFAXIMIN 550 MG TABLET PO SCH ×2 (07:54→21:07)
[2019-09-13] MEDS: FERROUS SULFATE 325 MG TAB PO SCH (07:54)
[2019-09-13] MEDS: FOLIC ACID 1 MG TAB PO SCH ×2 (07:55→21:06)
[2019-09-13] MEDS: LACTULOSE SYRUP 20 GM/30 ML UDC PO SCH (07:56)
[2019-09-13] MEDS: BUMETANIDE 1 MG TAB PO SCH (07:57)
[2019-09-13] MEDS: carvediloL 25 MG TAB PO SCH ×2 (07:58→21:05)
[2019-09-13] MEDS: PANTOprazole 40 MG TAB PO SCH (08:00)
[2019-09-13] MEDS: INSULIN ASPART 100 UNITS/ML 3 ML PEN SC SCH ×4 (08:02→21:06)
[2019-09-13] MEDS: INSULIN GLARGINE SOLOSTAR 100 UNITS/ML 3 ML PEN SC SCH ×2 (08:03→21:05)
--- NOTE | 2019-09-13 10:20 | XRay Report ---
XR chest 1V not portable HISTORY: 64 years-old Female shortness of breath, monitoring pulmonary edema acute shortness of gifty th COMPARISON: Chest radiograph 09/10/2019 TECHNIQUE: Portable AP view the chest FINDINGS: Cardiac silhouette is enlarged, unchanged. Pulmonary vascular congestion with unchanged interstitial coarsening. Asymmetric right suprahilar density is unchanged. Trace right and small left pleural effu sions with left lung base consolidation. No significant change. Reverse right shoulder total joint ar throplasty. Degenerative changes of the left shoulder and spine. IMPRESSION: 1. Cardiomegaly with unchanged pulmonary edema. 2. Trace right and small left pleural effusions with persistent left lung base consolidation. ACT 112: Negative or not required by law. The above report was generated using voice recognition software. It may contain grammatical, syntax o r spelling errors. Electronically signed by: Ray Samson M.D. 09/13/2019 10:19 AM
--- NOTE | 2019-09-13 11:28 | Nephrology Progress Note ---
Date of Service September 13, 2019 Assessment & Plan (1) Acute kidney injury: Angela admitted with GARCIA and LE edema and found to have HENRIQUE. Renal function started to decline starting Apr 2019, with proteinuria nd hematuria. USG normal. No DM retinopathy. Has cirrhosis with MAE and pancytopenia. Received blood transfusion. Renal function and Hb slightly improved with PRBC transfusion. Diuretics has been on hold but again restarted this am. Unclear etiology for progressive worsening of renal function over last 4 months with repeated HENRIQUE. 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 renal vasculitis with h/o Rheumatoid arthritis. Would not expect Proteinuria/hematuria with hepatorenal syndrome. --restart Spironolactone at 25 mg/d and increase dose as needed, low k diet --would continue on Bumex 1 mg /d for now and increase dose as needed, aim for lightly net negative --pending 24 h urine and serology --will need physical therapy. Will follow Subjective Angela was seen and examined this morning. She denies SOB at rest but gets easily SOB moving from bed to chair. . Renal function staying relatively stable, without much improvement, volume status acceptable, electrolyte acceptable. BP has been staying high. Physical Exam Constitutional: WD/WN, vitals as above + ill appearing; no acute distress Neck: normal visual inspection Respiratory: normal respiratory effort, lungs clear to auscultation no respiratory distress Cardiovascular: Rate/Rhythm: regular rate and regular rhythm Heart Sounds: normal S1 and normal S2 Extremities: + edema Skin: no rashes, warm and dry Neurologic: moves all extremities and awake; no focal motor deficits and not confused Psychiatric: A+Ox3, euthymic affect Results & Data Vital Signs (Past 12 Hours) Vital Signs Temp Pulse Pulse Resp BP Pulse Ox 09/13/19 07:14 36.9 C 75 20 148/70 H 93 09/13/19 02:52 36.9 C 75 18 149/72 H 90 09/13/19 00:35 81 PG Care Time/CCT Total # of Minutes Spent Total Time Spent with Patient: Total time spent is greater than 50% in coordination of care (as documented) at patient's floor/unit and/or counseling patient: Coding Level of Care Code 08844 Subseq Hosp Care Lvl 3 Diagnoses Acute kidney injury N17.9
[2019-09-13] MEDS ORDERED: TRAMADOL HCL 50 MG TABLET PO PRN (12:41)
[2019-09-13] MEDS: SPIRONOLACTONE 25 MG TAB PO SCH (13:06)
--- NOTE | 2019-09-13 16:26 | Ultrasound Report ---
ULTRASOUND BILATERAL LOWER EXTREMITY VENOUS CLINICAL HISTORY: Lower extremity edema. COMPARISON STUDY: Left lower extremity venous ultrasound dated 05/01/2019. TECHNIQUE: Real-time, grayscale, and color Doppler sonography of the deep veins of the right and left lower extremity was performed from the inguinal crease to the calf. Compression and augmentation wer e utilized. FINDINGS: There is no sonographic evidence of deep venous thrombosis identified in the right or left lower extremity. The common femoral, superficial femoral, and popliteal veins are patent and normally compressible bilaterally. The greater saphenous vein and the profunda femoris vein at the junction w ith the common femoral vein are clear in both legs. The visualized calf veins are patent bilaterally. Soft tissue edema is present in the calves. IMPRESSION: There is no sonographic evidence of deep venous thrombosis identified in the right or lef t lower extremity. ACT 112: Negative or not required by law. Electronically signed by: Alexander Feldman M.D. 09/13/2019 4:25 PM
[2019-09-13 19:42] LABS: Urine Total Protein 21.1 mg/dl
[2019-09-13 20:39] LABS: Total Protein 24 Hour Urine 519.1 mg/24 Hr (0-149.1)
[2019-09-13] MEDS: ROPINIROLE HCL 1 MG TABLET PO SCH (21:07)
--- NOTE | 2019-09-13 22:36 | Hospitalist Progress Note ---
Date of Service September 13, 2019 Assessment & Plan (1) Bilateral calf pain: Suspect from pedal edema however patient feels significantly worse than normal. US doppler ordered as not on anticoagulation - subsequently negative for DVT. (2) Acute kidney injury: Appreciate nephrology review Suspect acutely worse due to over diuresis in setting of losartan use. However significant proteinuria of unclear significance and awaiting SPEP. Hyperkalemia now resolved with stopping supplementation and spironolactone. 4mg PO bumex yesterday appeared increased BUN + Cr. She is still significantly short of breath on exertion and was better on 09/10 (breathing declined since then as lasix held due to HENRIQUE). Discussed with Dr Alonso and will give bumex 2mg PO daily and reintroduce spironolactone @ 25mg daily. BMP in AM. (3) Hyperkalemia: Resolved. Likely does not have to go back on supplementation on discharge but will closely monitor now back on spironolactone. (4) Pulmonary edema: Acute on chronic mostly non cardiac pulmonary edema / bilateral pleural effusions secondary to liver cirrhosis/hypoalbuminemia. Continue bumex 2mg PO daily (4mg yesterday increased BUN + Cr) Echo in April was relatively unremarkable for EF and valvular disease therefore do not feel this represents CHF. Elevate HOV > 30 degrees at all times (5) Pneumonia: Ruled out. Procalcitonin negative. CXR similar to previous (although consolidation noted) - I would have suspected her CXR to have significantly worsened off antibiotics. Afebrile. History much more consistent with persistent/increasing pulmonary edema/pleural effusions. Discontinued antibiotics. Consolidation most likely atelectasis seen better on CT in July. (6) 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: MELD score on admission 17 with 6% 3 month mortality. 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 Continue rifaximin, folic acid, lactulose, spironolactone. No hepatic encephalopathy but previous hyperammonemia noted. (7) Iron deficiency anemia: Transfused 2 units packed RBCs on 09/09 which definitely appears to have helped with her shortness of breath and fatigue. Recommend aiming to keep Hgb > 9 in future. Hgb 9.0 today. FOB negative. Iron sats actually good prior to transfusion at 32 % - will continue her chronic iron supplementation. (8) Hypertension: Hypertensive due to stopping many of her medication due to HENRIQUE. Carvedilol increased to 25mg BID Bumex 2mg PO daily, spironolactone 25mg Since BP remains significantly elevated despite reintroduction of diuretics will start on amlodipine 5mg PO daily Stopped losartan - suspected to be a med rec error on last admission. (9) Peptic ulcer disease: Pantoprazole 40 mg p.o. daily (10) DM type 2 (diabetes mellitus, type 2): HbA1C 7.7 BSG controlled on lantus 15 units QAM with Novlog carb 8 and correction factor 25. BSG ACHS. (11) Polyclonal gammopathy: Previous bone biopsies > 3 years ago negative. Missed heme appointment. Dr Hylton aware patient in hospital, will need to rearrange appointment when discharged. Given current renal function concern for progression to MM. (12) Psoriatic arthritis: No active lesions seen. (13) Rheumatoid arthritis: No active synovitis. (14) Obstructive sleep apnea: Mild on prior sleep study in 03/2019. Did not tolerate CPAP. Severe nocturnal hypoxemia on same report likely due to pulmonary edema (severe orthopnea described by patient). (15) Weakness of left hip: Secondary to prior back injury. Suspect L1/2 nerve root injury vs. lumbosacral plexus. Suspected cause of her continued ambulatory dysfunction and falls. (16) DVT prophylaxis: Discontinued heparin due to thrombocytopenia -> patient reports difficulty in stopping small external bleeds. Will restart if Plt improve, appear stable around 50. Continue SCDs. (17) Discharge planning issues: Continue PT/OT. Accepted to [facility] on discharge. Not yet medically stable. Subjective Patient reports shortness of breath on exertion stable. But worse since after which the IV lasix/albumin has been held. Orthopnea continues but better than when she was admitted. No dizziness on standing. No chest pain. No melena. Review of Systems Review of Systems: All systems reviewed & are unremarkable except as noted in HPI & below Physical Exam Constitutional: well developed and well nourished; no acute distress Eyes: + anicteric sclerae; normal pupil size ENMT: external ear and nose normal, oropharynx normal Neck: trachea midline Respiratory: normal respiratory effort; no respiratory distress, no labored breathing and does not use accessory muscles Auscultation: + diminished lung sounds (absent at bases and reduced air entry to mid zone b/l); no crackles, no rales, no rhonchi and no wheezes Cardiovascular: Rate/Rhythm: regular rate and regular rhythm Heart Sounds: no murmur Vessels: no JVD Extremities: + pedal edema (2+ b/l equal, tight skin) Gastrointestinal (Abdomen): normal bowel sounds, soft, nontender, no hepatosplenomegaly Musculoskeletal: Extremities: + abnormal strength (left hip flex 4/5, ankle dorsiflexion 4/5) Skin: no rashes, warm and dry Neurologic: moves all extremities and awake; not confused Psychiatric: A+Ox3, euthymic affect Results & Data Vital Signs (Past 12 Hours) Vital Signs Temp Pulse Pulse Resp BP BP Pulse Ox 09/13/19 20:19 36.9 C 71 18 153/76 H 96 09/13/19 15:11 36.9 C 66 18 129/59 L 92 09/13/19 11:43 36.9 C 70 18 155/72 H 90 PG Care Time/CCT Total # of Minutes Spent Total Time Spent with Patient: Total time spent is greater than 50% in coordination of care (as documented) at patient's floor/unit and/or counseling patient: Coding Level of Care Code 30308 Subseq Hosp Care Lvl 2 Diagnoses Bilateral calf pain M79.661; M79.662 Acute kidney injury N17.9 Hyperkalemia E87.5 Pulmonary edema J81.0 Chronicity: acute Pneumonia J18.9 Laterality: left Lung location: unspecified part of lung Pneumonia type: due to unspecified organism 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 K75.81; K74.60 Iron deficiency anemia D50.8 Iron deficiency anemia type: other iron deficiency Hypertension I10 Hypertension type: essential hypertension Peptic ulcer disease K27.9 DM type 2 (diabetes mellitus, type 2) E11.65 Diabetes mellitus complication status: with hyperglycemia Diabetes mellitus 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 insulin use: without intermediate use Polyclonal gammopathy D89.0 Psoriatic arthritis L40.50 Rheumatoid arthritis M06.9 Rheumatoid arthritis location: multiple sites Rheumatoid factor presence: unspecified presence Obstructive sleep apnea G47.33 Weakness of left hip R29.898 DVT prophylaxis Z29.9 Discharge planning issues Z02.9 (1) Rheumatoid arthritis Rheumatoid arthritis location: multiple sites Rheumatoid factor presence: unspecified presence Qualified Code(s): M06.9 - Rheumatoid arthritis, unspecif ied (2) DM type 2 (diabetes mellitus, type 2) Diabetes mellitus complication status: with hyperglycemia Diabetes mellitus intermediate insulin use: without intermediate use Qualified Code(s): E11.65 - Type 2 diabetes mellitus with hyperglycemia (3) Pulmonary edema Chronicity: acute Qualified Code(s): J81.0 - Acute pulmonary edema (4) Iron deficiency anemia Iron deficiency anemia type: other iron deficiency Qualified Code(s): D50.8 - Other iron deficiency anemias (5) Hypertension Hypertension type: essential hypertension Qualified Code(s): I10 - Essential (primary) hypertension (6) Pneumonia Laterality: left Lung location: unspecified part of lung Pneumonia type: due to unspecified organism Qualified Code(s): J18.9 - Pneumonia, unspecified organism
[2019-09-14 06:19] LABS: Hematocrit (blood only) 27.5 % (37-47); Hemoglobin 8.7 g/dL (12.0-16.0); Mean Corpuscular Hemoglobin 29.4 pg (25-34); Mean Corpuscular Hgb Conc 31.6 g/dL (32-36); Mean Corpuscular Volume 92.9 fL (80-100); RDW Coefficient of Variation 17.4 % (11.5-14.5); RDW Standard Deviation 58.7 fL (36.4-46.3); Red Blood Count 2.96 M/uL (4.2-5.4); White Blood Count 3.02 K/uL (4.8-10.8)
[2019-09-14 06:37] LABS: Mean Platelet Volume 9.9 fL (7.4-10.4); Platelet Count 47 K/uL (130-400)
[2019-09-14 06:48] LABS: Calcium 8.4 mg/dl (8.5-10.1); Creatinine Clr Calc Pharmacy 23.2 ml/min; Est GFR (African American) 26.5; Est GFR (Non-African American) 22.8; Phosphorus 4.2 mg/dl (2.5-4.9); Potassium 4.5 mmol/L (3.5-5.1)
[2019-09-14] MEDS: INSULIN ASPART 100 UNITS/ML 3 ML PEN SC SCH ×4 (08:39→20:55)
[2019-09-14] MEDS: SPIRONOLACTONE 25 MG TAB PO SCH (08:40)
[2019-09-14] MEDS: LACTULOSE SYRUP 20 GM/30 ML UDC PO SCH (08:41)
[2019-09-14] MEDS: BUMETANIDE 1 MG TAB PO SCH (08:41)
[2019-09-14] MEDS: FERROUS SULFATE 325 MG TAB PO SCH (08:43)
[2019-09-14] MEDS: carvediloL 25 MG TAB PO SCH ×2 (08:43→20:58)
[2019-09-14] MEDS: PANTOprazole 40 MG TAB PO SCH (08:44)
[2019-09-14] MEDS: RIFAXIMIN 550 MG TABLET PO SCH ×2 (08:44→20:59)
[2019-09-14] MEDS: FOLIC ACID 1 MG TAB PO SCH ×2 (08:44→21:04)
[2019-09-14] MEDS: INSULIN GLARGINE SOLOSTAR 100 UNITS/ML 3 ML PEN SC SCH ×2 (08:50→20:56)
--- NOTE | 2019-09-14 09:59 | Nephrology Progress Note ---
Date of Service September 14, 2019 Assessment & Plan (1) Acute kidney injury: Angela admitted with GARCIA and LE edema and found to have HENRIQUE. Renal function started to decline starting Apr 2019, with proteinuria nd hematuria. USG normal. No DM retinopathy. Has cirrhosis with MAE and pancytopenia. Received blood transfusion. Renal function and Hb slightly improved with PRBC transfusion. Diuretics has been on hold but again restarted this am. Unclear etiology for progressive worsening of renal function over last 4 months with repeated HENRIQUE. 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 renal vasculitis with h/o Rheumatoid arthritis. Would not expect Proteinuria/hematuria with hepatorenal syndrome. 24 urine showed low-grade proteinuria with 550 mg. slight worsening renal function creatinine to 2.2-2.3, serum sodium elevated at 46 suggestive of free water deficit. -- discontinue Bumex, continue Spironolactone at 25 mg/d and increase dose as needed, low k diet -- encourage p.o. intake with increased free water intake Will follow Subjective Angela was seen and examined this morning. She denies SOB and reports overall feeling better. Renal function slightly worsening again volume status acceptable, electrolyte acceptable. BP improved. Review of Systems Review of Systems: All systems reviewed & are unremarkable except as noted in HPI & below Physical Exam Constitutional: WD/WN, vitals as above + ill appearing; no acute distress Neck: normal visual inspection Respiratory: normal respiratory effort, lungs clear to auscultation no respiratory distress Cardiovascular: Rate/Rhythm: regular rate and regular rhythm Heart Sounds: normal S1 and normal S2 Extremities: + edema Skin: no rashes, warm and dry Neurologic: moves all extremities and awake; no focal motor deficits and not confused Psychiatric: A+Ox3, euthymic affect Results & Data Vital Signs (Past 12 Hours) Vital Signs Temp Pulse Pulse Resp BP BP Pulse Ox 09/14/19 07:19 36.8 C 68 19 125/65 95 09/14/19 02:57 37 C 72 18 118/69 90 09/13/19 23:59 71 09/13/19 22:41 37.1 C 74 20 157/68 H 93 PG Care Time/CCT Total # of Minutes Spent Total Time Spent with Patient: Total time spent is greater than 50% in coordina tion of care (as documented) at patient's floor/unit and/or counseling patient: Coding Level of Care Code 60003 Subseq Hosp Care Lvl 3 Diagnoses Acute kidney injury N17.9
[2019-09-14] MEDS: AMLODIPINE BESYLATE 5 MG TAB PO SCH (10:35)
[2019-09-14] MEDS: ACETAMINOPHEN 325 MG TAB PO PRN (10:35)
[2019-09-14] MEDS: TRAMADOL HCL 50 MG TABLET PO PRN ×2 (13:30→18:32)
--- NOTE | 2019-09-14 14:21 | Pharmacy Report ---
Pharmacy Glycemic Short Note 2 - Date of Service September 14, 2019 - Glycemic Short BSG Results (Last 24 hours): 09/13/19 09/13/19 09/14/19 16:52 20:29 06:08 Glucose 113 H POC Glucose 133 H 101 H 09/14/19 09/14/19 07:30 11:22 Glucose POC Glucose 112 H 152 H ASSESSMENT: * BSGs remain reasonable. No acute change in insulin requirements are anticipated. We will continue with standing insulin orders. PLAN FOR INPATIENT GLYCEMIC CONTROL: * Basal insulin * Lantus 15u QAM + 5u QPM * Bolus insulin * NovoLog per scale ACHS or Q6hrs while NPO * Goal Range: Low 110 mg/dL - High 140 mg/dL * Correction Factor: 25 mg/dL/unit * Nutritional / Prandial insulin per carb ratio of 1 unit per 8 grams CHO consumed
--- NOTE | 2019-09-14 20:10 | Hospitalist Progress Note ---
Date of Service September 14, 2019 Assessment & Plan (1) Acute kidney injury: Appreciate nephrology review Suspect acutely worse due to over diuresis in setting of losartan use. However significant proteinuria of unclear significance and awaiting SPEP. Hyperkalemia now resolved with stopping supplementation and spironolactone. After receiving Bumex 4 mg p.o. x1-had increased BUN + Cr. She is still significantly short of breath on exertion and was better on 09/10 (breathing declined since then as lasix held due to HENRIQUE). Discussed with Dr Alonso and started on Bumex 2mg PO daily and reintroduced spironolactone @ 25mg daily. Creatinine rising today -Holding Bumex, continuing spironolactone -Follow BMP in AM. -Appreciate nephrology consultation (2) Bilateral calf pain: Suspect from pedal edema however patient felt significantly worse than n ormal. US doppler ordered as not on anticoagulation - subsequently negative for DVT. Now improved (3) Hyperkalemia: Resolved. Likely does not have to go back on supplementation on discharge but will closely monitor now back on spironolactone. (4) Pulmonary edema: Acute on chronic mostly non cardiac pulmonary edema / bilateral pleural effusions secondary to liver cirrhosis/hypoalbuminemia. -Now holding Bumex 2mg PO daily due to rising creatinine Echo in April was relatively unremarkable for EF and valvular disease therefore do not feel this represents CHF. Elevate HOV > 30 degrees at all times (5) Pneumonia: Ruled out. Procalcitonin negative. CXR similar to previous (although consolidation noted) - I would have suspected her CXR to have significantly worsened off antibiotics. Afebrile. History much more consistent with persistent/increasing pulmonary edema/pleural effusions. Discontinued antibiotics. Consolidation most likely atelectasis seen better on CT in July. (6) 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: MELD score on admission 17 with 6% 3 month mortality. Patient in process of getting established with another parts room clerk through [facility]. Continue rifaximin, folic acid, lactulose, spironolactone. Holding Bumex as above No hepatic encephalopathy but previous hyperammonemia noted. (7) Iron deficiency anemia: Transfused 2 units packed RBCs on 09/09 which definitely appears to have helped with her shortness of breath and fatigue. Recommend aiming to keep Hgb > 8-9 in future. Hgb light dropped to 8.7 today. FOB negative. Iron sats actually good prior to transfusion at 32 % - will continue her chronic iron supplementation. (8) Hypertension: Hypertensive due to stopping many of her medication due to HENRIQUE. Carvedilol increased to 25mg BID Holding Bumex 2mg PO daily, continue spironolactone 25mg Since BP remained significantly elevated despite reintroduction of diuretics- started amlodipine 5mg PO daily (9) Peptic ulcer disease: Pantoprazole 40 mg p.o. daily (10) DM type 2 (diabetes mellitus, type 2): HbA1C 7.7 BSG controlled on lantus 15 units QAM with Novlog carb 8 and correction factor 25. BSG ACHS. 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 Missed heme appointment due to multiple hospitalizations in the last couple of months. Dr Hylotn aware patient in hospital, will need to rearrange appointment when di scharged. Given current renal function concern for progression to MM. (12) Psoriatic arthritis: No active lesions seen. (13) Rheumatoid arthritis: No active synovitis. (14) Obstructive sleep apnea: Mild on prior sleep study in 03/2019. Did not tolerate CPAP. Severe no cturnal hypoxemia on same report likely due to pulmonary edema (severe orthopnea described by patient). (15) Weakness of left hip: Secondary to prior back injury. Suspect L1/2 nerve root injury vs. lumbosacral plexus. Suspected cause of her continued ambulatory dysfunction and falls. (16) DVT prophylaxis: Discontinued heparin due to thrombocytopenia -> patient reports difficulty in stopping small external bleeds. Will restart if Plt improve, appear stable around 50. Continue SCDs. (17) Discharge planning issues: Continue PT/OT. Accepted to [facility] on discharge. Not yet medically stable. Subjective Patient still feeling a little short of breath, remains on oxygen. Overall feels much improved, thinks her leg swelling is down. Feels tired but is not getting much sleep. Telemetry with normal sinus rhythm with rates in the 60s and 70s, PVCs Review of Systems Review of Systems: All systems reviewed & are unremarkable except as noted in HPI & below Physical Exam Constitutional: WD/WN, vitals as above Eyes: + anicteric sclerae ENMT: external ear and nose normal, oropharynx normal Neck: trachea midline, no thyromegaly Respiratory: normal respiratory effort; no respiratory distress Auscultation: + diminished lung sounds (At the bases bilaterally); no wheezes Cardiovascular: Rate/Rhythm: regular rate and regular rhythm Extremities: + edema (1+ pitting edema in the legs bilaterally left greater than right) Chest (Breasts): Chest: normal inspection of chest Gastrointestinal (Abdomen): normal bowel sounds, soft, nontender, no hepatos plenomegaly Musculoskeletal: Extremities: no cyanosis and no clubbing Skin: no rashes, warm and dry Neurologic: moves all extremities and awake; no focal motor deficits Psychiatric: A+Ox3, euthymic affect Lymphatic: no lymphedema Results & Data Vital Signs (Past 12 Hours) Vital Signs Temp Pulse Resp BP BP Pulse Ox 09/14/19 15:04 36.9 C 65 24 100/56 L 94 09/14/19 11:04 36.6 C 65 18 137/70 94 Laboratory Results 09/14/19 09/14/19 09/14/19 Range/Units 20:25 16:36 11:22 WBC (4.8-10.8) K/uL RBC (4.2-5.4) M/uL Hgb (12.0-16.0) g/dL Hct (37-47) % MCV (80-100) fL MCH (25-34) pg MCHC (32-36) g/dL RDW Std Deviation (36.4-46.3) fL RDW Coeff of Karina (11.5-14.5) % Plt Count (130-400) K/uL MPV (7.4-10.4) fL Sodium (136-145) mmol/L Potassium (3.5-5.1) mmol/L Chloride (98-107) mmol/L Carbon Dioxide (21-32) mmol/L Anion Gap (3-11) BUN (7-18) mg/dl Creatinine (0.6-1.2) mg/dl Est Cr Clr Drug Dosing ml/min Est GFR ( Amer) Est GFR (Non-Af Amer) BUN/Creatinine Ratio (10-20) Glucose (70-99) mg/dl POC Glucose 121 H 74 152 H (70-99) mg/dl Calcium (8.5-10.1) mg/dl Phosphorus (2.5-4.9) mg/dl Ammonia (11-32) umol/L Albumin (3.4-5.0) gm/dl 09/14/19 09/14/19 09/14/19 Range/Units 07:30 06:08 06:08 WBC 3.02 L (4.8-10.8) K/uL RBC 2.96 L (4.2-5.4) M/uL Hgb 8.7 L (12.0-16.0) g/dL Hct 27.5 L (37-47) % MCV 92.9 (80-100) fL MCH 29.4 (25-34) pg MCHC 31.6 L (32-36) g/dL RDW Std Deviation 58.7 H (36.4-46.3) fL RDW Coeff of Karina 17.4 H (11.5-14.5) % Plt Count 47 L (130-400) K/uL MPV 9.9 (7.4-10.4) fL Sodium (136-145) mmol/L Potassium (3.5-5.1) mmol/L Chloride (98-107) mmol/L Carbon Dioxide (21-32) mmol/L Anion Gap (3-11) BUN (7-18) mg/dl Creatinine (0.6-1.2) mg/dl Est Cr Clr Drug Dosing ml/min Est GFR ( Amer) Est GFR (Non-Af Amer) BUN/Creatinine Ratio (10-20) Glucose (70-99) mg/dl POC Glucose 112 H (70-99) mg/dl Calcium (8.5-10.1) mg/dl Phosphorus (2.5-4.9) mg/dl Ammonia 66.0 H (11-32) umol/L Albumin (3.4-5.0) gm/dl 09/14/19 Range/Units 06:08 WBC (4.8-10.8) K/uL RBC (4.2-5.4) M/uL Hgb (12.0-16.0) g/dL Hct (37-47) % MCV (80-100) fL MCH (25-34) pg MCHC (32-36) g/dL RDW Std Deviation (36.4-46.3) fL RDW Coeff of Karina (11.5-14.5) % Plt Count (130-400) K/uL MPV (7.4-10.4) fL Sodium 146 H (136-145) mmol/L Potassium 4.5 (3.5-5.1) mmol/L Chloride 116 H (98-107) mmol/L Carbon Dioxide 25 (21-32) mmol/L Anion Gap 5.0 (3-11) BUN 73 H (7-18) mg/dl Creatinine 2.22 H (0.6-1.2) mg/dl Est Cr Clr Drug Dosing 23.2 ml/min Est GFR ( Amer) 26.5 Est GFR (Non-Af Amer) 22.8 BUN/Creatinine Ratio 33.0 H (10-20) Glucose 113 H (70-99) mg/dl POC Glucose (70-99) mg/dl Calcium 8.4 L (8.5-10.1) mg/dl Phosphorus 4.2 (2.5-4.9) mg/dl Ammonia (11-32) umol/L Albumin 2.0 L (3.4-5.0) gm/dl PG Care Time/CCT Total # of Minutes Spent Total Time Spent with Patient: Total time spent is greater than 50% in coordination of care (as documented) at patient's floor/unit and/or counseling patient: Coding Level of Care Code 67018 Subseq Hosp Care Lvl 2 Diagnoses Acute kidney injury N17.9 Bilateral calf pain M79.661; M79.662 Hyperkalemia E87.5 Pulmonary edema J81.0 Chronicity: acute Pneumonia J18.9 Laterality: left Lung location: unspecified part of lung Pneumonia type: due to unspecified organism 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 K75.81; K74.60 Iron deficiency anemia D50.8 Iron deficiency anemia type: other iron deficiency Hypertension I10 Hypertension type: essential hypertension Peptic ulcer disease K27.9 DM type 2 (diabetes mellitus, type 2) E11.65 Diabetes mellitus complication status: with hyperglycemia Diabetes mellitus longterm insulin use: without longterm use Polyclonal gammopathy D89.0 Psoriatic arthritis L40.50 Rheumatoid arthritis M06.9 Rheumatoid arthritis location: multiple sites Rheumatoid factor presence: unspecified presence Obstructive sleep apnea G47.33 Weakness of left hip R29.898 DVT prophylaxis Z29.9 Discharge planning issues Z02.9 (1) Rheumatoid arthritis Rheumatoid arthritis location: multiple sites Rheumatoid factor presence: unspecified presence Qualified Code(s): M06.9 - Rheumatoid arthritis, unspecified (2) DM type 2 (diabetes mellitus, type 2) Diabetes mellitus complication status: with hyperglycemia 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 insulin use: without longterm use Qualified Code(s): E11.65 - Type 2 diabetes mellitus with hyperglycemia (3) Pulmonary edema Chronicity: acute Qualified Code(s): J81.0 - Acute pulmonary edema (4) Iron deficiency anemia Iron deficiency anemia type: other iron deficiency Qualified Code(s): D50.8 - Other iron deficiency anemias (5) Hypertension Hypertension type: essential hypertension Qualified Code(s): I10 - Essential (primary) hypertension (6) Pneumonia Laterality: left Lung location: unspecified part of lung Pneumonia type: due to unspecified organism Qualified Code(s): J18.9 - Pneumonia, unspecified organism
[2019-09-14] MEDS: ROPINIROLE HCL 1 MG TABLET PO SCH (20:59)
[2019-09-15 06:17] LABS: Hematocrit (blood only) 27.6 % (37-47); Hemoglobin 8.8 g/dL (12.0-16.0); Mean Corpuscular Hemoglobin 29.5 pg (25-34); Mean Corpuscular Hgb Conc 31.9 g/dL (32-36); Mean Corpuscular Volume 92.6 fL (80-100); Platelet Count 49 K/uL (130-400); RDW Coefficient of Variation 17.5 % (11.5-14.5); RDW Standard Deviation 58.8 fL (36.4-46.3); Red Blood Count 2.98 M/uL (4.2-5.4); White Blood Count 3.42 K/uL (4.8-10.8)
[2019-09-15 06:49] LABS: BUN Creatinine Ratio 30.3 (10-20); Calcium 8.5 mg/dl (8.5-10.1); Creatinine Clr Calc Pharmacy 23.2 ml/min; Est GFR (African American) 26.3; Est GFR (Non-African American) 22.7; Phosphorus 4.5 mg/dl (2.5-4.9); Potassium 4.5 mmol/L (3.5-5.1)
[2019-09-15] MEDS: INSULIN ASPART 100 UNITS/ML 3 ML PEN SC SCH ×4 (09:08→20:35)
[2019-09-15] MEDS: LACTULOSE SYRUP 20 GM/30 ML UDC PO SCH (09:11)
[2019-09-15] MEDS: FOLIC ACID 1 MG TAB PO SCH ×2 (09:12→20:34)
[2019-09-15] MEDS: RIFAXIMIN 550 MG TABLET PO SCH ×2 (09:12→20:34)
[2019-09-15] MEDS: carvediloL 25 MG TAB PO SCH ×2 (09:12→20:34)
[2019-09-15] MEDS: PANTOprazole 40 MG TAB PO SCH (09:13)
[2019-09-15] MEDS: SPIRONOLACTONE 25 MG TAB PO SCH (09:13)
[2019-09-15] MEDS: FERROUS SULFATE 325 MG TAB PO SCH (09:13)
[2019-09-15] MEDS: AMLODIPINE BESYLATE 5 MG TAB PO SCH (09:15)
--- NOTE | 2019-09-15 09:40 | Nephrology Progress Note ---
Date of Service September 15, 2019 Assessment & Plan (1) Acute kidney injury: Angela admitted with GARCIA and LE edema and found to have HENRIQUE. Renal function started to decline starting Apr 2019, with proteinuria nd hematuria. USG normal. No DM retinopathy. Has cirrhosis with MAE and pancytopenia. Received blood transfusion. Renal function and Hb slightly improved with PRBC transfusion. Diuretics has been on hold but again restarted this am. Unclear etiology for progressive worsening of renal function over last 4 months with repeated HENRIQUE. ? hemodynamic with diuresis and residual impairment ? DM nephropathy ? renal vasculitis with h/o Rheumatoid arthritis. Would not expect Proteinuria/hematuria with hepatorenal syndrome. 24 urine showed low-grade proteinuria with 550 mg. slight worsening renal function creatinine to 2.2-2.3, serum sodium elevated at 46 suggestive of free water deficit. -- continue to hold Bumex, continue Spironolactone at 25 mg/d and increase dose as needed, low k diet -- encourage p.o. intake with increased free water intake -- may need to restart on diuretics on discharge Will follow Subjective Angela was seen and examined this morning. She denies SOB and reports overall feeling better, appetite improved. LE edema improved. Renal function stable without much improvement,volume status acceptable, electrolyte acceptable. BP improved. Review of Systems Review of Systems: All systems reviewed & are unremarkable except as noted in HPI & below Physical Exam Constitutional: WD/WN, vitals as above no acute distress Neck: normal visual inspection Respiratory: normal respiratory effort; no respiratory distress Auscultation: + diminished lung sounds Cardiovascular: Rate/Rhythm: regular rate and regular rhythm Heart Sounds: normal S1 and normal S2 Extremities: + edema Skin: no rashes, warm and dry Neurologic: moves all extremities and awake; no focal motor deficits and not confused Psychiatric: A+Ox3, euthymic affect Results & Data Vital Signs (Past 12 Hours) Vital Signs Temp Pulse Pulse Resp BP Pulse Ox 09/15/19 03:51 37.0 C 64 18 116/60 93 09/15/19 00:37 73 09/14/19 22:57 36.6 C 63 18 113/57 L 95 PG Care Time/CCT Total # of Minutes Spent Total Time Spent with Patient: Total time spent is greater than 50% in coordination of care (as documented) at patient's floor/unit and/or counseling p atient: Coding Level of Care Code 87921 Subseq Hosp Care Lvl 2 Diagnoses Acute kidney injury N17.9
[2019-09-15] MEDS: TRAMADOL HCL 50 MG TABLET PO PRN (13:25)
[2019-09-15] MEDS: INSULIN GLARGINE SOLOSTAR 100 UNITS/ML 3 ML PEN SC SCH (13:28)
--- NOTE | 2019-09-15 14:51 | Pharmacy Report ---
Pharmacy Glycemic Short Note 2 - Date of Service September 15, 2019 - Glycemic Short BSG Results (Last 24 hours): 09/14/19 09/14/19 09/15/19 16:36 20:25 06:05 Glucose 74 POC Glucose 74 121 H 09/15/19 09/15/19 07:20 11:20 Glucose POC Glucose 72 138 H ASSESSMENT: 09/15 * Fasting BSG significantly decreased this morning. Will eliminate evening Lantus dose and administer today Lantus dose at lunch after confirming BSG increased. Post prandial BSGs adequate, no changes to novolog. 09/14 * BSGs remain reasonable. No acute change in insulin requirements are anticipated. We will continue with standing insulin orders. PLAN FOR INPATIENT GLYCEMIC CONTROL: * Basal insulin * Lantus 14u QAM (today @ lunchtime) * Bolus insulin * NovoLog per scale ACHS or Q6hrs while NPO * Goal Range: Low 110 mg/dL - High 140 mg/dL * Correction Factor: 25 mg/dL/unit * Nutritional / Prandial insulin per carb ratio of 1 unit per 8 grams CHO consumed
--- NOTE | 2019-09-15 20:27 | Hospitalist Progress Note ---
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 However significant proteinuria of unclear significance and awaiting SPEP. Hyperkalemia now resolved with stopping supplementation and spironolactone. After receiving Bumex 4 mg p.o. x1-had increased BUN + Cr. She is still significantly short of breath on exertion and was better on 09/10 (breathing declined since then as lasix held due to HENRIQUE). Discussed with Dr Alonso and started on Bumex 2mg PO daily and reintroduced spironolactone @ 25mg daily. -continue holding Bumex, continuing spironolactone -Follow BMP in AM. -Appreciate nephrology consultation Hopeful if optometry assistant improving tomorrow, can eventually restart some diuretics to keep volume off Very delicate balance (2) Bilateral calf pain: Suspect from pedal edema however patient felt significantly worse than normal on admission. US doppler ordered as not on anticoagulation - subsequently negative for DVT. -asked RN to place MARY hose on to reduce swelling as has been off diuretics now (3) Hyperkalemia: Resolved. Likely does not have to go back on supplementation on discharge but will closely monitor now back on spironolactone. (4) Pulmonary edema: Acute on chronic mostly non cardiac pulmonary edema / bilateral pleural effusions secondary to liver cirrhosis/hypoalbuminemia. -Now holding Bumex due to rising creatinine Echo in April was relatively unremarkable for EF and valvular disease therefore do not feel this represents CHF. Elevate HOB > 30 degrees at all times (5) Pneumonia: Ruled out. Procalcitonin negative. CXR similar to previous (although consolidation noted) - I would have suspected her CXR to have significantly worsened off antibiotics. Afebrile. History much more consistent with persistent /increasing pulmonary edema/pleural effusions. Discontinued antibiotics. Consolidation most likely atelectasis seen better on CT in July. (6) 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: MELD score on admission 17 with 6% 3 month mortality. Patient in process of getting established with another mysql dba through [facility]. Continue rifaximin, folic acid, lactulose, spironolactone. Holding Bumex as above No hepatic encephalopathy but previous hyperammonemia noted. (7) Iron deficiency anemia: Transfused 2 units packed RBCs on 09/09 which definitely appears to have helped with her shortness of breath and fatigue. Recommend aiming to keep Hgb > 8-9 in future. Hgb stable at 8.8 today. FOB negative. Iron sats actually good prior to transfusion at 32 % - will continue her chronic iron supplementation. (8) Hypertension: Hypertensive due to stopping many of her medication due to HENRIQUE. BPs improved today Carvedilol increased to 25mg BID Holding Bumex 2mg PO daily, continue spironolactone 25mg Since BP remained significantly elevated despite reintroduction of diuretics- started amlodipine 5mg PO daily (9) Peptic ulcer disease: Pantoprazole 40 mg p.o. daily (10) DM type 2 (diabetes mellitus, type 2): HbA1C 7.7 BSG controlled on lantus 15 units QAM with Novlog carb 8 and correction factor 25. BSG ACHS. 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 Missed heme appointment due to multiple hospitalizations in the last couple of months. Dr Hylton aware patient in hospital, will need to rearrange appointment when discharged. Given current renal function concern for progression to MM. (12) Psoriatic arthritis: No active lesions seen. (13) Rheumatoid arthritis: No active synovitis. (14) Obstructive sleep apnea: Mild on prior sleep study in 03/2019. Did not tolerate CPAP. Severe nocturnal hypoxemia on same report likely due to pulmonary edema (severe orthopnea described by patient). -continue O2 qhs (15) Weakness of left hip: Secondary to prior back injury. Suspect L1/2 nerve root injury vs. lumbosacral plexus. Suspected cause of her continued ambulatory dysfunction and falls. (16) DVT prophylaxis: Discontinued heparin due to thrombocytopenia -> patient reports difficulty in stopping small external bleeds. Will restart if Plt improve, appear stable around 50. Continue SCDs, MARY hose (17) Discharge planning issues: Continue PT/OT. Accepted to [facility] on discharge. Not yet medically stable. If optometry assistant improves tomorrow and ok with Nephro, can dc tomorrow if insuarance auth approved Subjective Walked in the halls today and POx stayed at 91-92% the whole time off O2. Feeling a little mor SOB today however though and legs still swollen and painful to the touch. Not wearing MARY hose that were ordered. Denies chest pain. Is eating. Review of Systems Review of Systems: All systems reviewed & are unremarkable except as noted in HPI & below Physical Exam Constitutional: WD/WN, vitals as above Eyes: + anicteric sclerae ENMT: external ear and nose normal, oropharynx normal Neck: trachea midline, no thyromegaly Respiratory: normal respiratory effort; no respiratory distress Auscultation: + diminished lung sounds (At the bases bilaterally); no wheezes Cardiovascular: Rate/Rhythm: regular rate and regular rhythm Extremities: + edema (1+ pitting edema in the legs bilaterally left greater than right) Chest (Breasts): Chest: normal inspection of chest Gastrointestinal (Abdomen): normal bowel sounds, soft, nontender, no hepatosplenomegaly Musculoskeletal: Extremities: no cyanosis and no clubbing Skin: no rashes, warm and dry Neurologic: moves all extremities and awake; no focal motor deficits Psychiatric: A+Ox3, euthymic affect Lymphatic: no lymphedema Results & Data Vital Signs (Past 12 Hours) Vital Signs Temp Pulse Pulse Resp BP BP Pulse Ox 09/15/19 19:19 36.7 C 81 20 114/56 L 92 09/15/19 14:58 36.5 C 62 16 113/68 96 09/15/19 11:13 36.4 C L 60 18 110/67 94 Laboratory Results 09/15/19 09/15/19 09/15/19 Range/Units 19:58 15:53 14:58 WBC (4.8-10.8) K/uL RBC (4.2-5.4) M/uL Hgb (12.0-16.0) g/dL Hct (37-47) % MCV (80-100) fL MCH (25-34) pg MCHC (32-36) g/dL RDW Std Deviation (36.4-46.3) fL RDW Coeff of Karina (11.5-14.5) % Plt Count (130-400) K/uL MPV (7.4-10.4) fL Sodium (136-145) mmol/L Potassium (3.5-5.1) mmol/L Chloride (98-107) mmol/L Carbon Dioxide (21-32) mmol/L Anion Gap (3-11) BUN (7-18) mg/dl Creatinine (0.6-1.2) mg/dl Est Cr Clr Drug Dosing ml/min Est GFR ( Amer) Est GFR (Non-Af Amer) BUN/Creatinine Ratio (10-20) Glucose (70-99) mg/dl POC Glucose 151 H 173 H 198 H (70-99) mg/dl Calcium (8.5-10.1) mg/dl Phosphorus (2.5-4.9) mg/dl Albumin (3.4-5.0) gm/dl 09/15/19 09/15/19 09/15/19 Range/Units 11:20 07:20 06:05 WBC 3.42 L (4.8-10.8) K/uL RBC 2.98 L (4.2-5.4) M/uL Hgb 8.8 L (12.0-16.0) g/dL Hct 27.6 L (37-47) % MCV 92.6 (80-100) fL MCH 29.5 (25-34) pg MCHC 31.9 L (32-36) g/dL RDW Std Deviation 58.8 H (36.4-46.3) fL RDW Coeff of Karina 17.5 H (11.5-14.5) % Plt Count 49 L (130-400) K/uL MPV 10.0 (7.4-10.4) fL Sodium (136-145) mmol/L Potassium (3.5-5.1) mmol/L Chloride (98-107) mmol/L Carbon Dioxide (21-32) mmol/L Anion Gap (3-11) BUN (7-18) mg/dl Creatinine (0.6-1.2) mg/dl Est Cr Clr Drug Dosing ml/min Est GFR ( Amer) Est GFR (Non-Af Amer) BUN/Creatinine Ratio (10-20) Glucose (70-99) mg/dl POC Glucose 138 H 72 (70-99) mg/dl Calcium (8.5-10.1) mg/dl Phosphorus (2.5-4.9) mg/dl Albumin (3.4-5.0) gm/dl 09/15/19 09/14/19 Range/Units 06:05 20:25 WBC (4.8-10.8) K/uL RBC (4.2-5.4) M/uL Hgb (12.0-16.0) g/dL Hct (37-47) % MCV (80-100) fL MCH (25-34) pg MCHC (32-36) g/dL RDW Std Deviation (36.4-46.3) fL RDW Coeff of Karina (11.5-14.5) % Plt Count (130-400) K/uL MPV (7.4-10.4) fL Sodium 142 (136-145) mmol/L Potassium 4.5 (3.5-5.1) mmol/L Chloride 114 H (98-107) mmol/L Carbon Dioxide 24 (21-32) mmol/L Anion Gap 4.0 (3-11) BUN 68 H (7-18) mg/dl Creatinine 2.23 H (0.6-1.2) mg/dl Est Cr Clr Drug Dosing 23.2 ml/min Est GFR ( Amer) 26.3 Est GFR (Non-Af Amer) 22.7 BUN/Creatinine Ratio 30.3 H (10-20) Glucose 74 (70-99) mg/dl POC Glucose 121 H (70-99) mg/dl Calcium 8.5 (8.5-10.1) mg/dl Phosphorus 4.5 (2.5-4.9) mg/dl Albumin 2.0 L (3.4-5.0) gm/dl PG Care Time/CCT Total # of Minutes Spent Total Time Spent with Patient: Total time spent is greater than 50% in coordination of care (as documented) at patient's floor/unit and/or counseling patient: Coding Level of Care Code 18749 Subseq Hosp Care Lvl 2 Diagnoses Acute kidney injury N17.9 Bilateral calf pain M79.661; M79.662 Hyperkalemia E87.5 Pulmonary edema J81.0 Chronicity: acute Pneumonia J18.9 Laterality: left Lung location: unspecified part of lung Pneumonia type: due to unspecified organism 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 K75.81; K74.60 Iron deficiency anemia D50.8 Iron deficiency anemia type: other iron deficiency Hypertension I10 Hypertension type: essential hypertension Peptic ulcer disease K27.9 DM type 2 (diabetes mellitus, type 2) E11.65 Diabetes mellitus fpc insulin use: without fpc use Diabetes mellitus complication status: with hyperglycemia Polyclonal gammopathy D89.0 Psoriatic arthritis L40.50 Rheumatoid arthritis M06.9 Rheumatoid arthritis location: multiple sites Rheumatoid factor presence: unspecified presence Obstructive sleep apnea G47.33 Weakness of left hip R29.898 DVT prophylaxis Z29.9 Discharge planning issues Z02.9 (1) Pulmonary edema Chronicity: acute Qualified Code(s): J81.0 - Acute pulmonary edema (2) Pneumonia Laterality: left Lung location: unspecified part of lung Pneumonia type: due to unspecified organism Qualified Code(s): J18.9 - Pneumonia, unspecified organism (3) Iron deficiency anemia Iron deficiency anemia type: other iron deficiency Qualified Code(s): D50.8 - Other iron deficiency anemias (4) Hypertension Hypertension type: essential hypertension Qualified Code(s): I10 - Essential (primary) hypertension (5) DM type 2 (diabetes mellitus, type 2) 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
[2019-09-15] MEDS: ROPINIROLE HCL 1 MG TABLET PO SCH (20:34)
[2019-09-16 05:27] LABS: Albumin 2.5 g/dL (3.8-4.8); Alpha 1 Globulin 0.3 g/dL (0.2-0.3); Alpha 2 Globulin 0.4 g/dL (0.5-0.9); Beta-1-Globulin 0.5 g/dL (0.4-0.6); Beta-2-Globulin 0.5 g/dL (0.2-0.5); Gamma Globulin 2.8 g/dL (0.8-1.7); Monoclonal Protein Band 1 DNR g/dL (NONE DETECTED); Monoclonal Protein Band 2 DNR g/dL (NONE DETECTED); Monoclonal Protein Band 3 DNR g/dL (NONE DETECTED)
[2019-09-16] MEDS: TRAMADOL HCL 50 MG TABLET PO PRN (06:22)
[2019-09-16 06:24] LABS: Hematocrit (blood only) 27.4 % (37-47); Hemoglobin 8.8 g/dL (12.0-16.0); Mean Corpuscular Hemoglobin 29.6 pg (25-34); Mean Corpuscular Hgb Conc 32.1 g/dL (32-36); Mean Corpuscular Volume 92.3 fL (80-100); RDW Coefficient of Variation 17.6 % (11.5-14.5); Red Blood Count 2.97 M/uL (4.2-5.4)
[2019-09-16 06:25] LABS: Mean Platelet Volume 10.6 fL (7.4-10.4); Platelet Count 47 K/uL (130-400)
[2019-09-16 06:54] LABS: BUN Creatinine Ratio 31.7 (10-20); Calcium 8.6 mg/dl (8.5-10.1); Creatinine Clr Calc Pharmacy 22.2 ml/min; Est GFR (African American) 25.1; Est GFR (Non-African American) 21.7; Potassium 4.4 mmol/L (3.5-5.1)
[2019-09-16] MEDS: INSULIN ASPART 100 UNITS/ML 3 ML PEN SC SCH ×2 (08:37→13:00)
[2019-09-16] MEDS: FERROUS SULFATE 325 MG TAB PO SCH (08:38)
[2019-09-16] MEDS: PANTOprazole 40 MG TAB PO SCH (08:38)
[2019-09-16] MEDS: INSULIN GLARGINE SOLOSTAR 100 UNITS/ML 3 ML PEN SC SCH (08:38)
[2019-09-16] MEDS: AMLODIPINE BESYLATE 5 MG TAB PO SCH (08:38)
[2019-09-16] MEDS: SPIRONOLACTONE 25 MG TAB PO SCH (08:38)
[2019-09-16] MEDS: RIFAXIMIN 550 MG TABLET PO SCH (08:39)
[2019-09-16] MEDS: LACTULOSE SYRUP 20 GM/30 ML UDC PO SCH (08:39)
[2019-09-16] MEDS: carvediloL 25 MG TAB PO SCH (08:39)
[2019-09-16] MEDS: FOLIC ACID 1 MG TAB PO SCH (08:39)
[2019-09-16] MEDS ORDERED: EPOETIN ALFA 20,000 UNITS/ML VIAL SQ ONE (08:51)
--- NOTE | 2019-09-16 09:45 | Nephrology Progress Note ---
Date of Service September 16, 2019 Assessment & Plan (1) Acute kidney injury: Angela admitted with GARCIA and LE edema and found to have HENRIQUE. Renal function started to decline starting Apr 2019, with proteinuria nd hematuria. USG normal. No DM retinopathy. Has cirrhosis with MAE and pancytopenia. Received blood transfusion. Renal function and Hb slightly improved with PRBC transfusion. Diuretics has been on hold but again restarted this am. Unclear etiology for progressive worsening of renal function over last 4 months with repeated HENRIQUE. ? hemodynamic with diuresis and residual impairment ? DM nephropathy ? renal vasculitis with h/o Rheumatoid arthritis. Would not expect Proteinuria/hematuria with hepatorenal syndrome. 24 urine showed low-grade proteinuria with 550 mg. slight worsening renal function creatinine to 2.2-2.3, serum sodium elevated at 46 suggestive of free water deficit. -- continue to hold Bumex, continue Spironolactone at 25 mg/d and increase dose as needed, low k diet -- encourage p.o. intake with increased free water intake -- would continue to hold diuretics on discharge Will follow Subjective Angela was seen and examined this morning. She denies SOB but reports feeling tired. LE edema improved. Has been participating with PT. Renal function stable without much improvement,volume status acceptable, electrolyte acceptable. BP improved. Review of Systems Review of Systems: All systems reviewed & are unremarkable except as noted in HPI & below Physical Exam Constitutional: WD/WN, vitals as above no acute distress Neck: normal visual inspection Respiratory: normal respiratory effort, lungs clear to auscultation normal respiratory effort; no respiratory distress Cardiovascular: Rate/Rhythm: regular rate and regular rhythm Heart Sounds: normal S1 and normal S2 Extremities: no edema Skin: no rashes, warm and dry Neurologic: moves all extremities and awake; no focal motor deficits and not confused Psychiatric: A+Ox3, euthymic affect Results & Data Vital Signs (Past 12 Hours) Vital Signs Temp Pulse Pulse Pulse Resp BP BP 09/16/19 09:03 64 09/16/19 07:03 36.8 C 64 18 127/72 09/16/19 03:48 36.8 C 68 18 117/62 09/16/19 02:45 68 09/15/19 23:51 37.2 C 71 18 124/80 Pulse Ox 09/16/19 09:03 09/16/19 07:03 96 09/16/19 03:48 97 09/16/19 02:45 09/15/19 23:51 95 PG Care Time/CCT Total # of Minutes Spent Total Time Spent with Patient: Total time spent is greater than 50% in coordination of care (as documented) at patient's floor/unit and/or counseling patient: Coding Level of Care Code 26904 Subseq Hosp Care Lvl 3 Diagnoses Acute kidney injury N17.9
--- NOTE | 2019-09-16 16:00 | Discharge Summary ---
Date of Service September 16, 2019 Admission HPI Per Admitting Provider The patient is a 64-year-old female with a past medical history including pneumonia, hypertensive urgency, liver cirrhosis secondary to MAE, iron deficiency anemia, hypertension, depression, CHF, pulmonary hypertension, mitral vegetation, peptic ulcer disease, dyslipidemia, diabetic peripheral neuropathy, rheumatoid arthritis, GERD and CKD stage III. She was most recently omitted from 08/03/2019-08/09/2019 for similar symptoms. She reports that she has been monitoring her sodium intake as directed. And has been trying to eat 1-2 nutritional drinks daily, but her appetite overall is diminished. She does re port an intermittent cough which is nonproductive. Principal Diagnosis Acute respiratory failure with hypoxia, volume overload Discharge Exam Constitutional WD/WN, vitals as above Eyes + anicteric sclerae ENMT external ear and nose normal, oropharynx normal Neck trachea midline, no thyromegaly Respiratory normal respiratory effort; no respiratory distress Auscultation: + diminished lung sounds (At the bases bilaterally); no wheezes Cardiovascular Rate/Rhythm: regular rate and regular rhythm Extremities: + edema (1+ pitting edema in the legs bilaterally left greater than right) Chest (Breasts) Chest: normal inspection of chest Gastrointestinal (Abdomen) normal bowel sounds, soft, nontender, no hepatosplenomegaly Musculoskeletal Extremities: no cyanosis and no clubbing Skin no rashes, warm and dry Neurologic moves all extremities and awake; no focal motor deficits Psychiatric A+Ox3, euthymic affect Lymphatic no lymphedema Discharge Data Allergies Allergy/AdvReac Type Severity Reaction Status Date / Time Sulfa (Sulfonamide Allergy Mild Rash Verified 09/22/19 10:14 Antibiotics) sulfamethoxazole Allergy Mild RASH Verified 09/22/19 10:14 trimethoprim Allergy Mild RASH Verified 09/22/19 10:14 Bactrim Allergy Unknown RASH Verified 08/17/14 08:01 amlodipine AdvReac Intermediate confusion Verified 09/22/19 10:14 adhesive tape AdvReac Mild ITCHING Verified 09/22/19 10:14 Consultations 09/07/19 20:05 ED Decision to Admit Stat 09/07/19 21:56 Consult Case Management - Discharge Planning Routine 09/10/19 07:40 Consult Nephrology Routine Ordered Studies 09/11/19 10:10 US renal/blad retro comp Routine 09/13/19 12:39 US venous doppler LE BI Routine CXR x 3 Hospital Course (1) Acute kidney injury: Appreciate nephrology consultation Traffic Enumerator stable now at 2.3 but not improving yet Renal US normal Suspect acutely worsened due to over-diuresis in setting of losartan use. However significant proteinuria of unclear significance and awaiting SPEP. Hyperkalemia now resolved with stopping supplementation and holding spironolactone. After receiving Bumex 4 mg p.o. x1-had increased BUN + Cr. She was still having GARCIA and then was better on 09/10 (breathing declined since then as lasix held due to HENRIQUE). Discussed with Dr Alonso and started on Bumex 2mg PO daily and reintroduced spironolactone @ 25mg daily. Had worsening of facetor and then Bumex was discontinued -dc home lasix, but ok to be continuing spironolactone at a lower dose of 25mg daily on discharge -Follow BMP in 3-5 days as an outpt -Appreciate nephrology consultation-f/u as outpt Hopeful if facetor improving after discharge, can eventually restart some diuretics to keep volume off--> defer to Nephrology as to timing and choice of diuretic Very delicate balance given low albumin, cirrhosis (2) Bilateral calf pain: Suspect from pedal edema however patient felt significantly worse than normal on admission. US doppler ordered as not on anticoagulation - subsequently negative for DVT. -asked RN to place MARY hose on to reduce swelling as has been off diuretics now--> pain in legs much improved -recommend continuing MARY hose upon discharge, can remove at nighttime (3) Hyperkalemia: Resolved. Likely does not have to go back on supplementation on discharge but will closely monitor now back on spironolactone. (4) Pulmonary edema: Acute on chronic mostly non cardiac pulmonary edema / bilateral pleural effusions secondary to liver cirrhosis/hypoalbuminemia, and renal failure -Now holding lasix due to rising creatinine Echo in April was relatively unremarkable for EF and valvular disease therefore do not feel this represents CHF. Elevate HOB > 30 degrees at all times (5) Pneumonia: Suspected upon admission but then ruled out. Procalcitonin negative. CXR similar to previous (although consolidation noted) - I would have suspected her CXR to have significantly worsened off antibiotics. Afebrile. History much more consistent with persistent/increasing pulmonary anne marie ma/pleural effusions. Discontinued antibiotics. Consolidation most likely atelectasis seen better on CT in July. (6) 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: MELD score on admission 17 with 6% 3 month mortality. Patient in process of getting established with another [facility] consultant through [facility]. Continue rifaximin, folic acid, lactulose, spironolactone. Holding lasix as above No hepatic encephalopathy but previous hyperammonemia noted. (7) Iron deficiency anemia: Transfused 2 units packed RBCs on 09/09 which definitely appears to have helped with her shortness of breath and fatigue. Recommend aiming to keep Hgb > 8-9 in future. Hgb stable at 8.8 again today. FOB negative. Iron sats actually good prior to transfusion at 32 % - will continue her chronic iron supplementation. Needs outpt f/u with Hematology-has suspected bone marrow issue (8) Hypertension: Hypertensive due to stopping many of her medication due to HENRIQUE. BPs improved now with increasing Coreg and adding on amlodipine Continue Carvedilol 25mg BID continue spironolactone 25mg (lower thanhome dose of 50mg daily) -dc home lasix (9) Peptic ulcer disease: Pantoprazole 40 mg p.o. daily (10) DM type 2 (diabetes mellitus, type 2): HbA1C 7.7 BSG controlled on lantus 15 units QAM with Novolog carb 8 and correction factor 25. 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 Missed heme appointment due to multiple hospitalizations in the last couple of months. Dr Hylton aware patient in hospital, will need to rearrange appointment when discharged. Given current renal function concern for progression to MM. (12) Psoriatic arthritis: No active lesions seen. (13) Rheumatoid arthritis: No active synovitis. (14) Obstructive sleep apnea: Mild on prior sleep study in 03/2019. Did not tolerate CPAP. Severe nocturnal hypoxemia on same report likely due to pulmonary edema (severe orthopnea described by patient). -received O2 qhs here, but as per CM, needs to f/u with Dr. Erazo to get O2 arranged as outpt as he ordered the studies-arranged appt for her (15) Weakness of left hip: Secondary to prior back injury. Suspect L1/2 nerve root injury vs. lumbosacral plexus. Suspected cause of her continued ambulatory dysfunction and falls. Right shoulder pain-continue tramadol (16) DVT prophylaxis: Discontinued heparin due to thrombocytopenia, amemia - SCDs, MARY quispe (17) Discharge planning issues: Accepted to [facility] on discharge but was doing too well to qualify for insurance auth--> pt accepting of this and stable for dc to home Total Time Total Time Spent Total Time Spent (In Minutes): 40 min Total Time Includes: Examination of the Patient, Discharge Planning, Medication Reconciliation and Communication With Other Providers (Nephrology) Discharge Plan Discharge Items Patient Disposition: Home - Home Health Services Reason For Visit: ACUTE ON CHRONIC RESPIRATORY FAILURE WITH HYPOXIA Discharge Diagnosis: Acute kidney injury, acute hypoxic respiratory failure Condition on Discharge: Fair Activity: Resume your previous activity Non-emergency contact: Primary Care Provider and Supervisor Computer Operations Call non-emergency contact if: you have any medication questions and your symptoms worsen Follow-up/Referrals: Jay Erazo MD [Physician] - 09/23/19 10:30 am (Please, follow up at [facility] with Dr. Erazo on SaturdaySeptember 23 at 10:30 am. *This is related to your sleep study you had in March. You may qualify for oxygen at night, but you must follow up with [facility]. The office is located in [facility] in [address] of [facility], next to [facility]. If you need to change this appointment, call the office at [phone].) Rocío Alonso DO [Primary Care Provider] - 09/22/19 10:20 am (Please, follow up at Dr. Alonso's office with her associate, Margarita Luu PA-C, on SaturdaySeptember 22 at 10:20 am. *If you need ot change this appointment, call their office at [phone].) Phil Galeano DO [Physician] - 10/01/19 11:20 am (Please, follow up at [facility] with Dr. Galeano on October 01 at 11:20 am. *The office is located in [address] of [facility], next to [facility]. If you need to change this appointment, call the office at [phone].) Cruz Hylton [Physician] - 09/25/19 11:10 am (Please, follow up with Dr. Cruz Hylton on SaturdaySeptember 25 at 11:10 am. *If you need to change this appointment, call the office at [phone].) Diet: Low Sodium (2gm) Ambulatory Orders: Basic Metabolic Panel (Routine) Timeframe: 5 Days Location: Determined by Patient Ordered By: Mali Becerra Attending Provider Instructions: You were admitted for low oxygen levels ad this improved prior to discharge. You were not requiring oxygen during the daytime. This is due to excess fluid around your lungs from your kidney and liver problems. Your kidney function unfortunately has been worsening, but is stable now for several days. Please have repeat blood work checked on Saturday and the results will be sent to your kidney doctor. You will need to follow up with Dr. Erazo to get your oxygen at nighttime for your sleep apnea. We also made you appointments with Dr. Hylton for follow up on your anemia and low platelets. Pending Studies at Discharge: No Stand-Alone Forms: [facility] Medications and DC Order Prescriptions: New carvedilol 25 mg Tablet 25 mg PO BID Qty: 60 RF: 0 spironolactone 25 mg Tablet 25 mg PO QAM Qty: 30 RF: 0 tramadol 50 mg Tablet 50 mg PO Q4H PRN (Reason: pain) Qty: 20 RF: 0 Continued (DME) adhesive bandage bandage See Dose Instructions .ROUTE .MEDSUPPLY Qty: 20 RF: 5 ferrous sulfate 325 mg (65 mg iron) tablet 325 mg PO QAM RF: 0 (DME) [facility] See Dose Instructions .ROUTE .MEDSUPPLY Qty: 1 RF: 0 Xifaxan 550 mg tablet 550 mg PO BID Qty: 60 RF: 2 ropinirole 2 mg tablet 2 mg PO HS Qty: 30 RF: 5 folic acid 1 mg tablet 1 mg PO BID Qty: 60 RF: 0 fluticasone propionate 50 mcg/actuation spray,suspension 2 sprays INTNAS DAILY PRN (Reason: Allergy Symptoms) RF: 0 lactulose 20 gram/30 mL solution 30 ml PO QAM RF: 0 Discontinued potassium chloride 20 mEq tablet extended release 20 meq PO BID Qty: 60 RF: 1 furosemide 40 mg tablet 40 mg PO BID Qty: 60 RF: 5 carvedilol 6.25 mg Tablet 6.25 mg PO BID Qty: 60 RF: 0 spironolactone 50 mg tablet 50 mg PO QAM RF: 0 losartan 100 mg tablet 100 mg PO QAM RF: 0 Basaglar KwikPen U-100 Insulin 100 unit/mL (3 mL) insulin pen See Rx Instructions .ROUTE .COMPLEX PRN (Reason: Hyperglycemia) RF: 0 No Action Basaglar KwikPen U-100 Insulin 100 unit/mL (3 mL) insulin pen 14 units subcut DAILY Qty: 15 RF: 0 pantoprazole 40 mg tablet,delayed release (DR/EC) 40 mg PO QAM Qty: 30 RF: 2 Discharge Orders: Discharge Order (Routine); Ordered 09/16/19 Ordered By: Mali Flores/Other Patient Handouts: Diabetes Manage A1C Test Admission Data Admit Date/Time: 09/08/19 20:46 Attending Provider: Mali Mejia Admit Provider: Anand Wagner Primary Care Provider: Rocío Alonso Other Providers: Anand Wagner ; Amos Calles ; Holley Alonso Other Interventions: Discharge Summary Assessment (RN) Last Done: 09/16/19 16:06 DC Date/Time DO NOT enter until pt leaves facility: 09/16/19 17:29 Coding Level of Care Code D/C Day Management >30 mins Diagnoses Acute kidney injury N17.9 Bilateral calf pain M79.661; M79.662 Hyperkalemia E87.5 Pulmonary edema J81.0 Chronicity: acute Pneumonia J18.9 Laterality: left Lung location: unspecified part of lung Pneumonia type: due to unspecified organism 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 K75.81; K74.60 Iron deficiency anemia D50.8 Iron deficiency anemia type: other iron deficiency Hypertension I10 Hypertension type: essential hypertension Peptic ulcer disease K27.9 DM type 2 (diabetes mellitus, type 2) E11.65 Diabetes mellitus complication status: with hyperglycemia Diabetes mellitus terminal make up operator insulin use: without care home use Polyclonal gammopathy D89.0 Psoriatic arthritis L40.50 Rheumatoid arthritis M06.9 Rheumatoid arthritis location: multiple sites Rheumatoid factor presence: unspecified presence Obstructive sleep apnea G47.33 Weakness of left hip R29.898 DVT prophylaxis Z29.9 Discharge planning issues Z02.9
[2019-09-17 11:59] LABS: ANCA Screen Negative (Negative); Albumin 2.7 g/dL (3.8-4.8); Alpha 1 Globulin 0.3 g/dL (0.2-0.3); Alpha 2 Globulin 0.4 g/dL (0.5-0.9); Anti Nuclear Antibody Screen NEGATIVE (NEGATIVE); Anti-DNASE B Ab <95 U/mL (< 301); Beta-1-Globulin 0.5 g/dL (0.4-0.6); Beta-2-Globulin 0.6 g/dL (0.2-0.5); Complement C3 73 mg/dL (83-193); Free Kappa 209.9 mg/L (3.3-19.4); Free Kappa/Lambda Ratio 1.49 (0.26-1.65); Free Lambda 141.3 mg/L (5.7-26.3); Monoclonal Protein Band 1 DNR g/dL (NONE DETECTED); Monoclonal Protein Band 2 DNR g/dL (NONE DETECTED); Monoclonal Protein Band 3 DNR g/dL (NONE DETECTED); Myeloperoxidase Ab <1.0 AI (<1.0); Proteinase-3 AB <1.0 AI (<1.0); Total Protein 7.5 g/dL (6.1-8.1)
== END 2019-09-16 17:29 | disposition home health service (06) | DRG 189 ==
LOC: ED 18:16 → 2S 18:16 → SUATTDRO 21:10 → 2S 21:26 → SUATTDRO 09-08 20:46 → 2W 09-11 09:20

== ENCOUNTER 2019-10-04 19:03 | Inpatient (IN) ==
[2019-10-04] MEDS ORDERED: ALBUT/IPRATROP 3MG/0.5MG NEB 3 ML VIAL INH STA (19:12)
--- NOTE | 2019-10-04 19:40 | Emergency Department Note ---
Entered by Vy Patrick acting as a scribe for Alexander Blanco MD History of Present Illness General Chief complaint: Shortness of Breath/Dyspnea Stated complaint: FLUID AROUND LUNG, SOB Time Seen by Provider: 10/04/19 19:08 Source: patient and family History of Present Illness Onset (ago): day(s) 2 Location: chest Pain Consistency: + constant Maximum Pain Intensity: 0 Exacerbated By: + other (laying down, GARCIA) Associated symptoms: + shortness of breath and + other (bilateral leg swelling); no chest pain, no cough (not more than usual) and no fever/chills The patient is a 64 year old female with a history of 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 The patient states that she has recently been experiencing ongoing shortness of breath. She was seen by her PCP last week and was told that she has fluid in her lungs. She is scheduled to get this fluid drained by Dr. Sheridan next week. Her SOB worsened in the last 2 days and is associated with GARCIA and bilateral leg swelling. Her SOB is also exacerbated when she lays flat. Of note, the patient had a recent increase in her spironolactone to 50mg and was also just placed on 20 mg Lasix with no relief. Additionally, she wears 2L or oxygen at night time. She does not rely on an inhaler at home and has not been exposed to anyone who is experiencing similar symptoms. She denies chest pain, fever, and coughing more than usual. The patient offers no further concerns at this time. Home Medications Home Medications Medication Instructions Recorded Confirmed Type ferrous sulfate 325 mg (65 mg 325 mg PO QAM tab 01/28/19 10/04/19 History iron) tablet adhesive bandage #20 ea 05/18/19 09/23/19 Rx rifaximin 550 mg tablet 550 mg PO BID #60 tab 06/02/19 10/04/19 Rx walker #1 ea 06/25/19 09/23/19 Rx fluticasone propionate 2 sprays INTNAS DAILY PRN 07/13/19 10/04/19 History lactulose 30 ml PO QAM 07/13/19 10/04/19 History folic acid 1 mg tablet 1 mg PO BID #60 tab 08/20/19 10/04/19 Rx ropinirole 2 mg tablet 2 mg PO HS #30 tab 08/20/19 10/04/19 Rx carvedilol 25 mg PO BID #60 tab 09/16/19 10/04/19 Rx miscellaneous medical supply #1 ea 09/22/19 10/01/19 Rx pantoprazole 40 mg tablet,delayed 40 mg PO QAM #30 tab 09/22/19 10/04/19 Rx release spironolactone 50 mg tablet 50 mg PO QAM #90 tab 10/01/19 10/04/19 Rx acetaminophen [Tylenol Extra 500 mg PO Q6H PRN 10/04/19 10/04/19 History Strength] furosemide 20 mg PO QAM 10/04/19 10/04/19 History insulin glargine [Basaglar KwikPen 14 units SUBCUT QAM 10/04/19 10/04/19 History U-100 Insulin] Allergies Allergy/AdvReac Type Severity Reaction Status Date / Time Sulfa (Sulfonamide Allergy Mild Rash Verified 10/04/19 19:55 Antibiotics) sulfamethoxazole Allergy Mild RASH Verified 10/04/19 19:55 trimethoprim Allergy Mild RASH Verified 10/04/19 19:55 Bactrim Allergy Unknown RASH Verified 08/17/14 08:01 amlodipine AdvReac Intermediate confusion Verified 10/04/19 19:55 adhesive tape AdvReac Mild ITCHING Verified 10/04/19 19:55 Past Med/Surg History Medical History (Updated 10/04/19 @ 23:11 by Marco Borrego MD) Anemia Anxiety Cardiac murmur Diabetes mellitus, type 2 Diverticular disease Duodenal ulcer Esophageal varices Gastric ulcer GERD (gastroesophageal reflux disease) Hematuria History of recent blood transfusion 06/2019 Hyperlipidemia Hypertension Liver cirrhosis Nausea and vomiting after administration of anesthetic agent Osteoarthritis Pancytopenia Psoriatic arthritis Restless leg syndrome Right shoulder pain Surgical History History of anesthesia reaction difficult to wake after bladder tack sx History of bilateral cataract extraction History of bladder surgery bladder tack History of colonoscopy History of esophagogastroduodenoscopy (EGD) multiple---last 06/22/19 Dr. Mal[place] [facility] [place] of hemiarthroplasty of right shoulder January 2018 post fracture History of repair of right rotator cuff History of revision of total shoulder arthroplasty Right shoulder, 12/29/18 History of tooth extraction all teeth S/P ORIF (open reduction internal fixation) fracture R shoulder, January 2018 Family History Grandmother (Paternal) Family history of diabetes mellitus Father COPD (chronic obstructive pulmonary disease) Mother Hypertension Family/Other Cancer Sister Ovarian cancer Denies family history of Prostate cancer Myocardial infarction Breast cancer Colorectal cancer Social History Preferred Language: Egyptian Communication Ability: Effective Visual Impairment: Limited Hearing Ability: Normal Animal Care Service Worker Required: No Beliefs That Will Affect Care: None marital status: Current Living Situation: Spouse Current Living Situation Comment: Lives with and son current occupational status: retired Feels Safe at Home: Yes Smoking Status: Former smoker Second Hand Exposure: Yes (parents smoked) ; Hx Alcohol Use: No Hx Substance Use: No Childhood Exposure to Second-Hand Smoke: Yes Diet Comment: regular Dental Care, Regularly: No Physical Activity Frequency: Does not Exercise Seatbelt Use: sometimes Review of Systems See HPI for pertinent positives & negatives. and A total of 10 systems reviewed and were otherwise negative Physical Exam Vital Signs Vital Signs - 24 hr 10/04/19 19:04 10/04/19 19:51 10/04/19 19:52 Temperature 36.8 C Temperature Source Oral Pulse Rate 76 Pulse Rate [Right Finger] 75 Pulse Rhythm [Right Finger] Respiratory Rate 28 H 26 H Respiratory Effort / Characteristics Spontaneous Short of Breath Respiratory Depth Respiratory Pattern Blood Pressure 171/71 H Blood Pressure [Left Arm] Blood Pressure Mean 104 Blood Pressure Mean [Left Arm] Blood Pressure Position Sitting Pulse Oximetry 95 95 94 Oxygen Delivery Method Room Air Room Air Room Air Sepsis Recent Fever Within 48 Hours No Sepsis Action Taken by Nursing No Action Required 10/04/19 19:53 10/04/19 21:21 10/04/19 22:19 Temperature Temperature Source Pulse Rate Pulse Rate [Right Finger] 75 77 78 Pulse Rhythm [Right Finger] Regular Regular Regular Respiratory Rate 22 20 20 Respiratory Effort / Characteristics Non-Labored Non-Labored Non-Labored Respiratory Depth Normal Normal Normal Respiratory Pattern Regular Regular Regular Blood Pressure Blood Pressure [Left Arm] 167/81 H 170/77 H 161/95 H Blood Pressure Mean Blood Pressure Mean [Left Arm] 109 108 117 Blood Pressure Position Pulse Oximetry 94 93 95 Oxygen Delivery Method Room Air Room Air Room Air Sepsis Recent Fever Within 48 Hours Sepsis Action Taken by Nursing 10/04/19 22:37 10/04/19 23:51 Temperature Temperature Source Pulse Rate Pulse Rate [Right Finger] 73 82 Pulse Rhythm [Right Finger] Regular Respiratory Rate 20 23 Respiratory Effort / Characteristics Non-Labored Non-Labored Respiratory Depth Normal Normal Respiratory Pattern Regular Blood Pressure Blood Pressure [Left Arm] 149/71 H 171/79 H Blood Pressure Mean Blood Pressure Mean [Left Arm] 97 109 Blood Pressure Position Pulse Oximetry 94 92 Oxygen Delivery Method Room Air Room Air Sepsis Recent Fever Within 48 Hours Sepsis Action Taken by Nursing GENERAL: Patient is in no acute distress. HEENT: No acute trauma, normocephalic atraumatic, mucous membranes moist, no nasal congestion, no scleral icterus. NECK: No stridor, no adenopathy, no meningismus, trachea is midline. LUNGS: Increased respiratory rate, scattered wheezing bilaterally, crackles on the left especially in the lower lung. HEART: 2/6 systolic murmur, regular rate and rhythm. ABDOMEN: Soft, nontender, bowel sounds positive, no hernias, no peritonitis. EXTREMITIES: No cyanosis. Moderate bilateral pedal edema and full range of motion of all the joints without pain or difficulty, no signs for acute trauma. NEUROLOGIC: Oriented x 3, no acute motor or sensory deficits, no focal weakness. SKIN: No rash, no jaundice, no diaphoresis. Course Course 1909: Past medical records reviewed. The patient was evaluated in room A03. A complete history and physical exam was performed. 2054: I checked on the patient and updated her on test results. She is alright with a CT scan. 2143: I paged Dr. Pino, [facility]ist who will further evaluate the patient. The patient verbally expressed understanding and agreement of the treatment plan. The patient will be evaluated for further treatment. 2158: I spoke to Dr. Pino who accepts the patient for admission. Administered Medications Discontinued Medications Albuterol (Duoneb) 3 ml INH NOW STA Stop: 10/04/19 19:13 Last Admin: 10/04/19 19:50 Dose: 3 ml Documented by: [id number] Furosemide (Lasix) 40 mg IV NOW STA Stop: 10/04/19 20:49 Last Admin: 10/04/19 21:15 Dose: 40 mg Documented by: [id number] Ceftriaxone Sodium (Rocephin) 1,000 mg in 50 mls @ 100 mls/hr IV NOW STA Stop: 10/04/19 22:06 Last Infusion: 10/04/19 22:45 Dose: 0 mls/hr Documented by: [id number] Admin: 10/04/19 22:15 Dose: 100 mls/hr Documented by: [id number] Medical Decision Making Differential Diagnosis Differential diagnosis includes but is not limited to CHF, pneumonia, pleural effusion, bronchitis, influenza, flu-like illness, anemia, renal failure, electrolyte imbalance. Medical Records Attestation: I reviewed the patient's medical records. Home Medications Current Medication List: was personally reviewed by me Laboratory Data Attestation: I reviewed the patient's lab results. Result diagrams: 10/04/19 20:13 10/04/19 20:12 Lab Results 10/04/19 10/04/19 10/04/19 Range/Units 19:45 20:12 20:12 WBC (4.8-10.8) K/uL RBC (4.2-5.4) M/uL Hgb (12.0-16.0) g/dL Hct (37-47) % MCV (80-100) fL MCH (25-34) pg MCHC (32-36) g/dL RDW Std Deviation (36.4-46.3) fL RDW Coeff of Karina (11.5-14.5) % Plt Count (130-400) K/uL MPV (7.4-10.4) fL Immature Gran % (Auto) % Neut % (Auto) % Lymph % (Auto) % Rose[place] % (Auto) % Eos % (Auto) % Baso % (Auto) % Immature Gran # (Auto) (0.00-0.02) K/uL Neut # (Auto) (1.4-6.5) K/uL Lymph # (Auto) (1.2-3.4) K/uL [place] # (Auto) (0.11-0.59) K/uL Eos # (Auto) (0-0.5) K/uL Baso # (Auto) (0-0.2) K/uL Platelet Estimate (Normal) Schistocytes PT 13.4 H (9.0-12.0) Seconds INR 1.3 H (0.9-1.1) APTT 32.5 H (21.0-31.0) Seconds PTT Ratio 1.2 Sodium 145 (136-145) mmol/L Potassium 5.0 (3.5-5.1) mmol/L Chloride 119 H (98-107) mmol/L Carbon Dioxide 19 L (21-32) mmol/L Anion Gap 7.0 (3-11) BUN 45 H (7-18) mg/dl Creatinine 1.66 H (0.6-1.2) mg/dl Est Cr Clr Drug Dosing Not Reportable Est GFR ( Amer) 37.6 Est GFR (Non-Af Amer) 32.5 BUN/Creatinine Ratio 27.2 H (10-20) Glucose 169 H (70-99) mg/dl Calcium 8.7 (8.5-10.1) mg/dl Magnesium 2.2 (1.8-2.4) mg/dl Total Bilirubin 0.9 (0.2-1) mg/dl AST 24 (15-37) U/L ALT 19 (12-78) U/L Alkaline Phosphatase 189 H (45-117) U/L Troponin I < 0.015 (0-0.045) ng/ml NT-Pro-B Natriuret Pep 5825 H (0-900) pg/ml Total Protein 8.8 H (6.4-8.2) gm/dl Albumin 2.5 L (3.4-5.0) gm/dl Globulin 6.3 H (2.5-4.0) gm/dl Albumin/Globulin Ratio 0.4 L (0.9-2) Influenza Type A (PCR) Neg for Influ A (Neg) Influenza Type B (PCR) Neg for Influ B (Neg) 10/04/19 Range/Units 20:13 WBC 3.98 L (4.8-10.8) K/uL RBC 2.67 L (4.2-5.4) M/uL Hgb 7.9 L (12.0-16.0) g/dL Hct 24.6 L (37-47) % MCV 92.1 (80-100) fL MCH 29.6 (25-34) pg MCHC 32.1 (32-36) g/dL RDW Std Deviation 60.8 H (36.4-46.3) fL RDW Coeff of Karina 17.8 H (11.5-14.5) % Plt Count 55 L (130-400) K/uL MPV 9.1 (7.4-10.4) fL Immature Gran % (Auto) 0.0 % Neut % (Auto) 65.8 % Lymph % (Auto) 22.9 % Rose[place] % (Auto) 9.0 % Eos % (Auto) 2.0 % Baso % (Auto) 0.3 % Immature Gran # (Auto) 0.00 (0.00-0.02) K/uL Neut # (Auto) 2.62 (1.4-6.5) K/uL Lymph # (Auto) 0.91 L (1.2-3.4) K/uL [place] # (Auto) 0.36 (0.11-0.59) K/uL Eos # (Auto) 0.08 (0-0.5) K/uL Baso # (Auto) 0.01 (0-0.2) K/uL Platelet Estimate Decreased L (Normal) Schistocytes Occasional PT (9.0-12.0) Seconds INR (0.9-1.1) APTT (21.0-31.0) Seconds PTT Ratio Sodium (136-145) mmol/L Potassium (3.5-5.1) mmol/L Chloride (98-107) mmol/L Carbon Dioxide (21-32) mmol/L Anion Gap (3-11) BUN (7-18) mg/dl Creatinine (0.6-1.2) mg/dl Est Cr Clr Drug Dosing Est GFR ( Amer) Est GFR (Non-Af Amer) BUN/Creatinine Ratio (10-20) Glucose (70-99) mg/dl Calcium (8.5-10.1) mg/dl Magnesium (1.8-2.4) mg/dl Total Bilirubin (0.2-1) mg/dl AST (15-37) U/L ALT (12-78) U/L Alkaline Phosphatase (45-117) U/L Troponin I (0-0.045) ng/ml NT-Pro-B Natriuret Pep (0-900) pg/ml Total Protein (6.4-8.2) gm/dl Albumin (3.4-5.0) gm/dl Globulin (2.5-4.0) gm/dl Albumin/Globulin Ratio (0.9-2) Influenza Type A (PCR) (Neg) Influenza Type B (PCR) (Neg) Imaging Data Radiologist's Impression: Radiology results as stated below per my review and the radiologist's interpretation: SINGLE VIEW CHEST CLINICAL HISTORY: Dyspnea. FINDINGS: An AP, portable, supine chest radiograph is compared to study dated 10/01/2019 and correlated with chest CT dated 08/03/2019. The examination is degraded by portable technique and patient rotation. The heart is enlarged noting atherosclerotic calcification of the thoracic aorta. There is pulmonary vascular congestion. There are small pleural effusions. Consolidation is noted the right lung base and the right suprahilar region. No pneumothorax is seen. The skeletal structures are osteopenic. The bony thorax is grossly intact. A right shoulder arthroplasty is in place. IMPRESSION: 1. Cardiomegaly with evidence of congestive failure. 2. Layering pleural effusions. 3. Consolidative change is noted in the right suprahilar region and at the left lung base. This could represent atelectasis, superimposed pneumonia, and/or asymmetric edema. Clinical correlation will be required. ACT 112: Negative or not required by law. Electronically signed by: Alexander Feldamn M.D. 10/04/2019 7:[address] SCAN OF THE CHEST WITHOUT IV CONTRAST CLINICAL HISTORY: Dyspnea. COMPARISON STUDY: Chest x-ray dated 10/04/2019. Chest CT scans dated 08/03/2019 and 09/25/2018. TECHNIQUE: CT scan of the thorax was performed from the thoracic inlet to the upper abdomen. Images are reviewed in the axial, sagittal, and coronal planes. IV contrast was not administered for this examination as per the referring clinician. A dose lowering technique was utilized adhering to the principles of ALARA. The examination is degraded by streak artifact from the right arm which could not be elevated above the chest. CT DOSE: 590.58 mGy.cm FINDINGS: Thyroid: Atrophic and heterogeneous. Thoracic aorta: There is atherosclerotic calcification of the thoracic aorta, which is normal in caliber and demonstrates standard 3-vessel arch anatomy. Heart: The heart is enlarged and without pericardial effusion. There is diminished attenuation of the cardiac blood pool as compared to the myocardium suggesting anemia. The coronary arteries and mitral annulus are densely calcified. Lungs and pleural spaces: Emphysematous change is noted. There are moderate left and small right pleural effusions. There is dense airspace consolidation at the left lung base, as well as milder consolidation the posterior right upper lobe. The trachea and central airways are clear. Mediastinum: There is no mediastinal lymphadenopathy. Xochitl: Not well assessed without IV contrast. Axillae: There is right axillary lymphadenopathy. Right axillary nodes measure up to 1.8 cm in short axis. No left axillary adenopathy is seen. Upper abdomen: The liver is cirrhotic in morphology and heterogeneous in attenuation. There is nodularity of the surface contour and hypertrophy of the left lobe and caudate. The spleen is enlarged, measuring over 13 cm in length. A small hiatal hernia is noted. Enlarged right cardiophrenic lymph node measures 2.5 x 1.4 cm. Skeletal structures: The skeletal structures are osteopenic. Degenerative change and hyperkyphosis are noted in the thoracic spine. No lytic or blastic bony lesions are seen. A right shoulder arthroplasty is in place. There are healed left anterior rib fractures. Soft tissues: There is anasarca of the body wall. IMPRESSION: 1. Cardiomegaly and emphysema. 2. Small right and moderate left pleural effusions. 3. There is dense airspace consolidation at the left lung base. Milder consolidation is seen in the posterior right upper lobe. Correlate clinically for evidence of superimposed pneumonia. 4. There is anasarca of the body wall indicating fluid overload. 5. Cirrhotic liver morphology and splenomegaly. 6. There is right axillary and cardiophrenic lymphadenopathy. This has significantly progressed from 09/25/2018. 7. Additional findings as above. ACT 112: Negative or not required by law. Electronically signed by: Alexander Feldman M.D. 10/04/2019 9:24 PM ECG Data Attestation: I personally reviewed and interpreted this ECG as follows: Indication: + SOB/dyspnea Rate (beats per minute): 77 Rhythm: + sinus rhythm ECG Findings: + PACs and + Other (QT-c is 450); no PVCs Blood Pressure Blood Pressure Findings: Elevated blood pressure Blood Pressure Disposition: further management by hospitalist OBEY Narrative There is a lower white blood cell count, this is baseline looking back at previous testing. The patient is anemic, this is also baseline looking back at previous testing. Platelet count is low at 55--baseline looking back at previous testing. There is no worrisome coagulopathy. The patient does have some renal insufficiency but her creatinine is improved compared to recent testing. No concerning liver enzyme elevation. BNP is elevated consistent with fluid overload. EKG shows a sinus rhythm, no acute ischemia. Cardiac enzyme testing x1 is not consistent with acute cardiac injury. Influenza testing is negative. Chest film shows some CHF and effusions. There were a few areas of consolidation. Chest CT shows potential pneumonia as well as CHF and pleural effusions. The patient presents short of breath. She seemed short of breath when she was speaking. She really notices her dyspnea when she lies flat or tries to walk, even to the bathroom. The patient was given a DuoNeb, she received IV Lasix. She was given a dose of IV ceftriaxone for the possibility of pneumonia. Given her findings, given her increasing dyspnea, I do think a hospital stay would be warranted. I do not think she is safe for discharge home. I did speak with case management, the on-call hospitalist has been consulted. The patient is aware of all her findings. Continuous Cardiac Monitoring: An order was placed for continuous cardiac monitoring. The monitor shows a rate of 81 with sinus rhythm and PACs. No PVCS. Impression & Plan SOB (shortness of breath), CHF (congestive heart failure), Pleural effusion, Pneumonia Discharge Plan Visit Data Chief Complaint: Shortness of Breath/Dyspnea Stated Complaint: FLUID AROUND LUNG, SOB ED Provider: Alexander Blanco Discharge Problem: SOB (shortness of breath), CHF (congestive heart failure), Pleural effusion, Pneumonia Patient Disposition: Being Evaluated by Hospitalist Forms Stand Alone Forms: My [facility] Prescriptions Prescriptions: No Action (DME) adhesive bandage bandage See Dose Instructions .ROUTE .MEDSUPPLY Qty: 20 RF: 5 ferrous sulfate 325 mg (65 mg iron) tablet 325 mg PO QAM RF: 0 Hold Instructions: Home Medication placed on hold at Doctor's office (DME) [facility] See Dose Instructions .ROUTE .MEDSUPPLY Qty: 1 RF: 0 spironolactone 50 mg tablet 50 mg PO QAM Qty: 90 RF: 3 pantoprazole 40 mg tablet,delayed release (DR/EC) 40 mg PO QAM Qty: 30 RF: 2 (DME) Hospital Bed Misc See Rx Instructions .ROUTE .MEDSUPPLY Qty: 1 RF: 0 Xifaxan 550 mg tablet 550 mg PO BID Qty: 60 RF: 2 ropinirole 2 mg tablet 2 mg PO HS Qty: 30 RF: 5 folic acid 1 mg tablet 1 mg PO BID Qty: 60 RF: 0 carvedilol 25 mg Tablet 25 mg PO BID Qty: 60 RF: 0 fluticasone propionate 50 mcg/actuation spray,suspension 2 sprays INTNAS DAILY PRN (Reason: Allergy Symptoms) RF: 0 lactulose 20 gram/30 mL solution 30 ml PO QAM RF: 0 acetaminophen [Tylenol Extra Strength] 500 mg Tablet 500 mg PO Q6H PRN (Reason: Pain) RF: 0 furosemide 20 mg tablet 20 mg PO QAM RF: 0 Basaglar KwikPen U-100 Insulin 100 unit/mL (3 mL) insulin pen 14 units subcut QAM RF: 0 Referrals Referrals: Rocío Alonso DO [Primary Care Provider] - Discharge Problem: CHF (congestive heart failure) Qualifiers: Heart failure type: unspecified Heart failure chronicity: unspecified Qualified Code(s): I50.9 - Heart failure, unspecified Pneumonia Qualifiers: Pneumonia type: due to unspecified organism Laterality: bilateral Lung location: unspecified part of lung Qualified Code(s): J18.9 - Pneumonia, unspecified organism The scribe's documentation has been prepared under my direction and personally reviewed by me in its entirety. I confirm that the note above accurately reflects all work, treatment, procedures, and medical decision making performed by me.
--- NOTE | 2019-10-04 19:56 | XRay Report ---
SINGLE VIEW CHEST CLINICAL HISTORY: Dyspnea. FINDINGS: An AP, portable, supine chest radiograph is compared to study dated 10/01/2019 and correlate d with chest CT dated 08/03/2019. The examination is degraded by portable technique and patient rotat ion. The heart is enlarged noting atherosclerotic calcification of the thoracic aorta. There is pulmo nary vascular congestion. There are small pleural effusions. Consolidation is noted the right lung ba se and the right suprahilar region. No pneumothorax is seen. The skeletal structures are osteopenic. The bony thorax is grossly intact. A right shoulder arthroplasty is in place. IMPRESSION: 1. Cardiomegaly with evidence of congestive failure. 2. Layering pleural effusions. 3. Consolidative change is noted in the right suprahilar region and at the left lung base. This could represent atelectasis, superimposed pneumonia, and/or asymmetric edema. Clinical correlation will be required. ACT 112: Negative or not required by law. Electronically signed by: Alexander Feldman M.D. 10/04/2019 7:55 PM
[2019-10-04 20:24] LABS: Hematocrit (blood only) 24.6 % (37-47); Hemoglobin 7.9 g/dL (12.0-16.0); Mean Corpuscular Hemoglobin 29.6 pg (25-34); Mean Corpuscular Hgb Conc 32.1 g/dL (32-36); Mean Corpuscular Volume 92.1 fL (80-100); RDW Coefficient of Variation 17.8 % (11.5-14.5); RDW Standard Deviation 60.8 fL (36.4-46.3); Red Blood Count 2.67 M/uL (4.2-5.4); White Blood Count 3.98 K/uL (4.8-10.8)
[2019-10-04 20:25] LABS: Influenza A virus by PCR Neg for Influ A (Neg); Influenza B virus by PCR Neg for Influ B (Neg)
[2019-10-04 20:40] LABS: INR 1.3 (0.9-1.1); Partial Thromboplastin Ratio 1.2; Partial Thromboplastin Time 32.5 Seconds (21.0-31.0); Prothrombin Time 13.4 Seconds (9.0-12.0)
[2019-10-04 20:42] LABS: Alanine Aminotransferase 19 U/L (12-78); Albumin Level 2.5 gm/dl (3.4-5.0); Aspartate Aminotransferase 24 U/L (15-37); BUN Creatinine Ratio 27.2 (10-20); Blood Urea Nitrogen 45 mg/dl (7-18); Calcium 8.7 mg/dl (8.5-10.1); Carbon Dioxide 19 mmol/L (21-32); Chloride 119 mmol/L (98-107); Est GFR (African American) 37.6; Est GFR (Non-African American) 32.5; Glucose 169 mg/dl (70-99); Magnesium 2.2 mg/dl (1.8-2.4); Sodium 145 mmol/L (136-145)
[2019-10-04 20:47] LABS: Albumin Globulin Ratio 0.4 (0.9-2); Alkaline Phosphatase 189 U/L (45-117); Bilirubin,Total 0.9 mg/dl (0.2-1); Globulin 6.3 gm/dl (2.5-4.0); NT Pro B Type Natriuretic Pept 5825 pg/ml (0-900); Total Protein 8.8 gm/dl (6.4-8.2); Troponin I < 0.015 ng/ml (0-0.045)
[2019-10-04 20:47] LABS: Basophils # (auto) 0.01 K/uL (0-0.2); Basophils % (auto) 0.3 %; Eosinophils # (auto) 0.08 K/uL (0-0.5); Lymphocytes # (auto) 0.91 K/uL (1.2-3.4); Lymphocytes % (auto) 22.9 %; Mean Platelet Volume 9.1 fL (7.4-10.4); Monocytes # (auto) 0.36 K/uL (0.11-0.59); Neutrophils # (auto) 2.62 K/uL (1.4-6.5); Neutrophils % (auto) 65.8 %; Platelet Count 55 K/uL (130-400); Platelet Estimate Decreased (Normal); Schistocytes Occasional
[2019-10-04] MEDS ORDERED: FUROSEMIDE 40 MG/4 ML VIAL IV STA (20:48)
--- NOTE | 2019-10-04 21:25 | CT Scan Report ---
CT SCAN OF THE CHEST WITHOUT IV CONTRAST CLINICAL HISTORY: Dyspnea. COMPARISON STUDY: Chest x-ray dated 10/04/2019. Chest CT scans dated 08/03/2019 and 09/25/2018. TECHNIQUE: CT scan of the thorax was performed from the thoracic inlet to the upper abdomen. Images are reviewed in the axial, sagittal, and coronal planes. IV contrast was not administered for this ex amination as per the referring clinician. A dose lowering technique was utilized adhering to the jamal violet of DAILY. The examination is degraded by streak artifact from the right arm which could not b e elevated above the chest. CT DOSE: 590.58 mGy.cm FINDINGS: Thyroid: Atrophic and heterogeneous. Thoracic aorta: There is atherosclerotic calcification of the thoracic aorta, which is normal in jaya pa and demonstrates standard 3-vessel arch anatomy. Heart: The heart is enlarged and without pericardial effusion. There is diminished attenuation of the cardiac blood pool as compared to the myocardium suggesting anemia. The coronary arteries and mitral annulus are densely calcified. Lungs and pleural spaces: Emphysematous change is noted. There are moderate left and small right pleu ral effusions. There is dense airspace consolidation at the left lung base, as well as milder consoli dation the posterior right upper lobe. The trachea and central airways are clear. Mediastinum: There is no mediastinal lymphadenopathy. Xochitl: Not well assessed without IV contrast. Axillae: There is right axillary lymphadenopathy. Right axillary nodes measure up to 1.8 cm in short axis. No left axillary adenopathy is seen. Upper abdomen: The liver is cirrhotic in morphology and heterogeneous in attenuation. There is nodula rity of the surface contour and hypertrophy of the left lobe and caudate. The spleen is enlarged, julio suring over 13 cm in length. A small hiatal hernia is noted. Enlarged right cardiophrenic lymph node measures 2.5 x 1.4 cm. Skeletal structures: The skeletal structures are osteopenic. Degenerative change and hyperkyphosis ar e noted in the thoracic spine. No lytic or blastic bony lesions are seen. A right shoulder arthroplas ty is in place. There are healed left anterior rib fractures. Soft tissues: There is anasarca of the body wall. IMPRESSION: 1. Cardiomegaly and emphysema. 2. Small right and moderate left pleural effusions. 3. There is dense airspace consolidation at the left lung base. Milder consolidation is seen in the p osterior right upper lobe. Correlate clinically for evidence of superimposed pneumonia. 4. There is anasarca of the body wall indicating fluid overload. 5. Cirrhotic liver morphology and splenomegaly. 6. There is right axillary and cardiophrenic lymphadenopathy. This has significantly progressed from 09/25/2018. 7. Additional findings as above. ACT 112: Negative or not required by law. Electronically signed by: Alexander Feldman M.D. 10/04/2019 9:24 PM
[2019-10-04] MEDS ORDERED: cefTRIAXone SODIUM 1,000 MG/50 ML BAG IV STA (21:37)
--- NOTE | 2019-10-04 23:17 | History & Physical Report ---
Date of Service October 04, 2019 Assessment & Plan (1) CHF (congestive heart failure): Angela is a 64-year-old female with a past medical history of CHF, AIMEE, Fowler, hypertension, depression/anxiety, pulmonary hypertension, diabetes mellitus, CKD 3, and pancytopenia who presents with 1 month of worsening swelling in both her legs progressive increase in dyspnea. Acute on chronic congestive heart failure Last echo 05/04/2019 with EF 55-60%, mild concentric LVH, mild mitral regurg, mild tricuspid regurg Troponin negative, no acute EKG changes. Repeat TTE pending. BMP 5.8K on admission CT chest shows cardiomegaly and signs of anasarca with bilateral pleural effusions. Dense consolidation at left lung base concerning for superimposed pneumonia. Defer thoracic consult for potential thoracentesis at this time, if patient does not improve adequately with diuresis or diuresis is limited by kidney function low threshold for thoracic surgery consult. Received IV Lasix 40 mg in ED Continue p.o. Lasix 40 mg p.o. daily/twice daily based on creatinine BMP daily Continue carvedilol 25 mg p.o. twice daily Strict ins and outs Titrate oxygen as needed ? Superimposed pneumonia Observed on CT as above Pro-Chuck pending Admitted on empiric Rocephin, continue and discontinue if pro-Chuck negative DuoNebs every 4 hours as needed Flutter valve 4 times daily Wheezing improved following neb treatment, defer steroids at this time Right axillary lymphadenopathy, right cardiophrenic lymphadenopathy increased from 09/2018 Hematology consulted for pancytopenia as below, continue to follow Pancytopenia Patient reports this been longstanding for many years and of unclear etiology Scheduled to establish with [facility] care [facility] and Dr. 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 twice daily Continue spironolactone 50 mg p.o. every morning No signs of hepatic encephalopathy at this time AIMEE Patient does not use CPAP at home, but reports she has a history of sleep apnea on nighttime oxygen CPAP at bedside for night use as needed or if needed for respiratory status, 5 mm CPAP titrate as needed DVT prophylaxis: Patient with thrombocytopenia, cautious use of heparin 5000 twice daily Diet: Diabetic consistent carb CODE STATUS: Full code Disposition: Med telemetry (2) SOB (shortness of breath): (3) Pleural effusion: (4) Pneumonia: (5) Nocturnal hypoxemia: (6) Right shoulder pain: (7) Obstructive sleep apnea: (8) Pulmonary edema: (9) Liver cirrhosis secondary to FOWLER: (10) Iron deficiency anemia: (11) Hypertension: (12) CHF (congestive heart failure): (13) Dyslipidemia: (14) Diabetic peripheral neuropathy: (15) Diabetic nephropathy: (16) Mitral regurgitation: (17) Pancytopenia: (18) Polyclonal gammopathy: History of Present Illness Chief Complaint: Shortness of breath, "fluid " Primary Care Provider: Rocío Alonso DO Angela is a 64-year-old female with a past medical history of CHF, AIMEE, Fowler, hypertension, depression/anxiety, pulmonary hypertension, diabetes mellitus, CKD 3, and pancytopenia who presents with 1 month of worsening swelling in both her legs progressive increase in dyspnea. Reports she for started to notice increased shortness of breath and swelling in her legs about 1 month ago when she stopped her Lasix due to HENRIQUE. She progressively had increasing swelling in her feet, and steadily increasing shortness of breath. She has not had any syncope, presyncope, chest pain, chest pressure, or palpitations. She occasionally has a nonproductive cough, but denies other cold-like symptoms. She is not had fevers, chills, or night sweats although reports she is "always cold ". Denies diarrhea/constipation/abdominal pain. She notices that her swelling has also included her abdomen. She reports that she did not take any Lasix for about 4 weeks prior to admission, but had just restarted p.o. Lasix 20 mg in the morning 2 days ago and thinks she took 1 or 2 doses. She has not had any dietary changes, dietary indiscretions, or increased salt intake. Her shortness of breath is worsened by laying flat. She chronically wears 2 L of oxygen at night. She reports that she has been told that she has sleep apnea, but does not use a CPAP at home. She was seen as an outpatient last week and was told that she had a small amount of fluid around her lung, she is scheduled to see Dr. Sheridan next week for potential thoracentesis. Medical history: Reviewed Surgical history: Reviewed Allergies: Sulfa, tape. Altered mental status reaction to amlodipine. Medications: Reviewed, patient provided med list Social: She lives in [place] with her , feels safe at home, is able to ambulate at home normally. No alcohol use. Endorses former tobacco use 20 years ago, had approximately a 10-year 2 pack/day history. Denies recreational drug use. CODE STATUS: Full code. She notes that her would be her decision maker, and he is the one that would know if any medical treatments had gone/would go beyond her wishes. Allergies Allergy/AdvReac Type Severity Reaction Status Date / Time Sulfa (Sulfonamide Allergy Mild Rash Verified 10/04/19 19:55 Antibiotics) sulfamethoxazole Allergy Mild RASH Verified 10/04/19 19:55 trimethoprim Allergy Mild RASH Verified 10/04/19 19:55 Bactrim Allergy Unknown RASH Verified 08/17/14 08:01 amlodipine AdvReac Intermediate confusion Verified 10/04/19 19:55 adhesive tape AdvReac Mild ITCHING Verified 10/04/19 19:55 Home Medications Home Medications Medication Instructions Recorded Confirmed Type ferrous sulfate 325 mg (65 mg 325 mg PO QAM tab 01/28/19 10/04/19 History iron) tablet adhesive bandage #20 ea 05/18/19 09/23/19 Rx rifaximin 550 mg tablet 550 mg PO BID #60 tab 06/02/19 10/04/19 Rx walker #1 ea 06/25/19 09/23/19 Rx fluticasone propionate 2 sprays INTNAS DAILY PRN 07/13/19 10/04/19 History lactulose 30 ml PO QAM 07/13/19 10/04/19 History folic acid 1 mg tablet 1 mg PO BID #60 tab 08/20/19 10/04/19 Rx ropinirole 2 mg tablet 2 mg PO HS #30 tab 08/20/19 10/04/19 Rx carvedilol 25 mg PO BID #60 tab 09/16/19 10/04/19 Rx miscellaneous medical supply #1 ea 09/22/19 10/01/19 Rx pantoprazole 40 mg tablet,delayed 40 mg PO QAM #30 tab 09/22/19 10/04/19 Rx release spironolactone 50 mg tablet 50 mg PO QAM #90 tab 10/01/19 10/04/19 Rx acetaminophen [Tylenol Extra 500 mg PO Q6H PRN 10/04/19 10/04/19 History Strength] furosemide 20 mg PO QAM 10/04/19 10/04/19 History insulin glargine [Basaglar KwikPen 14 units SUBCUT QAM 10/04/19 10/04/19 History U-100 Insulin] Past Med/Surg History Medical History (Updated 10/04/19 @ 23:11 by Marco Borrego MD) Anemia Anxiety Cardiac murmur Diabetes mellitus, type 2 Diverticular disease Duodenal ulcer Esophageal varices Gastric ulcer GERD (gastroesophageal reflux disease) Hematuria History of recent blood transfusion 06/2019 Hyperlipidemia Hypertension Liver cirrhosis Nausea and vomiting after administration of anesthetic agent Osteoarthritis Pancytopenia Psoriatic arthritis Restless leg syndrome Right shoulder pain Surgical History History of anesthesia reaction difficult to wake after bladder tack sx History of bilateral cataract extraction History of bladder surgery bladder tack History of colonoscopy History of esophagogastroduodenoscopy (EGD) multiple---[place] 06/22/19 [place] [facility] [place] of hemiarthroplasty of right shoulder January 2018 post fracture History of repair of right rotator cuff History of revision of total shoulder arthroplasty Right shoulder, 12/29/18 History of tooth extraction all teeth S/P ORIF (open reduction internal fixation) fracture R shoulder, January 2018 Family History Grandmother (Paternal) Family history of diabetes mellitus Father COPD (chronic obstructive pulmonary disease) Mother Hypertension Family/Other Cancer Sister Ovarian cancer Denies family history of Prostate cancer Myocardial infarction Breast cancer Colorectal cancer Social History Preferred Language: Japanese Communication Ability: Effective Visual Impairment: Limited Hearing Ability: Normal Mastic Sprayer Required: No Beliefs That Will Affect Care: None marital status: Current Living Situation: Spouse Current Living Situation Comment: Lives with and son current occupational status: retired Other Information That Helps Us Care for You: No Feels Safe at Home: Yes Safety Concerns: Feels Safe At This Time Smoking Status: Former smoker Do You Dip or Chew Tobacco: No ; Second Hand Exposure: Yes ; Hx Alcohol Use: No Hx Substance Use: No Childhood Exposure to Second-Hand Smoke: Yes Diet Comment: regular Dental Care, Regularly: No Physical Activity Frequency: Does not Exercise Seatbelt Use: sometimes Review of Systems Review of Systems: All systems reviewed & are unremarkable except as noted in HPI & below Physical Exam Physical Exam: General: A&Ox3. Tachypneic, appears short of breath. Conversation limited by dyspnea. HEENT: Atraumatic, normocephalic. Mucous membranes moist. JVD present to the angle of the mandible. Pulm: Lungs with diffuse inspiratory and expiratory wheezes, bibasilar crackles, left lower lung rales. Cardiac: RRR, systolic murmur present. Radial pulses intact and symmetrical. Abdominal: Obese, nontender, nonrigid. Bowel sounds intact Extremities: Pitting edema to the midcalf bilaterally. Sensation intact to soft touch in fingertips and dorsal/plantar aspect of the feet bilaterally. Plant Floor Automation Manager strength, ankle dorsiflexion, ankle plantar flexion intact with 5/5 strength bilaterally. Results & Data Vital Signs (Past 12 Hours) Vital Signs Temp Pulse Pulse Resp BP BP Pulse Ox 10/04/19 22:37 73 20 149/71 H 94 10/04/19 22:19 78 20 161/95 H 95 10/04/19 21:21 77 20 170/77 H 93 10/04/19 19:53 75 22 167/81 H 94 10/04/19 19:52 94 10/04/19 19:51 75 26 H 95 10/04/19 19:04 36.8 C 76 28 H 171/71 H 95 Supervising Physician Co-Signing Physician Notes During my face to face encounter with the patient, which was completed after discussing case with Dr. Borrego, I obtained a history and physical examination. I reviewed above note, and agree with it. I reviewed the lab results and images. Patient will be admitted for acute pulmonary edema, likely from CHF. will place on diuretics. received IV diuretics during ED. Resumed oral on day 2. If still not euvolemic, may need to extend IV diuretic duration. Resident Activity Tracking Resident Involvement: Resident Care Provided Care Provided: Adult Hospital Medicine (1) CHF (congestive heart failure) Heart failure chronicity: acute Heart failure type: unspecified Qualified Code(s): I50.9 - Heart failure, unspecified (2) CHF (congestive heart failure) Heart failure chronicity: unspecified Heart failure type: unspecified Quali fied Code(s): I50.9 - Heart failure, unspecified (3) Pulmonary edema Chronicity: acute Qualified Code(s): J81.0 - Acute pulmonary edema (4) Iron deficiency anemia Iron deficiency anemia type: other iron deficiency Qualified Code(s): D50.8 - Other iron deficiency anemias (5) Hypertension Hypertension type: essential hypertension Qualified Code(s): I10 - Essential (primary) hypertension (6) Pneumonia Laterality: bilateral Lung location: unspecified part of lung Pneumonia type: due to unspecified organism Qualified Code(s): J18.9 - Pneumonia, unspecified organism
[2019-10-04] MEDS ORDERED: ENOXAPARIN INJ 40 MG/0.4 ML SYR SQ SCH (23:45)
[2019-10-04] MEDS ORDERED: ALBUT/IPRATROP 3MG/0.5MG NEB 3 ML VIAL NEB PRN (23:46)
[2019-10-05] MEDS ORDERED: POLYETHYLENE (MIRALAX) 17 GM PACK PO PRN (01:17)
[2019-10-05] MEDS ORDERED: DEXTROSE 50% 50 ML SYRINGE IV PRN (01:17)
[2019-10-05] MEDS ORDERED: CARBOHYDRATES FOR HYPOGLYCEMIA PO PRN (01:17)
[2019-10-05] MEDS ORDERED: ENOXAPARIN INJ 40 MG/0.4 ML SYR SQ SCH (01:17)
[2019-10-05] MEDS ORDERED: FLUTICASONE PROPIONATE NA SPR 16 GM BTL PRN (01:17)
[2019-10-05] MEDS ORDERED: GLUCOSE 40% GEL 15 GM TUBE PO PRN (01:17)
[2019-10-05] MEDS ORDERED: GLUCOSE 10 TABS/TUBE PO PRN (01:17)
[2019-10-05] MEDS ORDERED: GLUCAGON FOR INJ 1 MG VIAL SQ PRN (01:17)
--- NOTE | 2019-10-05 06:41 | Billing Data ---
Date of Service October 04, 2019 Coding Level of Care Code 10912 Initial Inpt Care Lvl 3
[2019-10-05 07:34] LABS: Estimated Average Glucose 134 mg/dl; Hemoglobin A1C 6.3 % (4.5-5.6)
[2019-10-05] MEDS: PANTOprazole 40 MG TAB PO SCH (07:49)
[2019-10-05] MEDS: SPIRONOLACTONE 25 MG TAB PO SCH (07:49)
[2019-10-05] MEDS: FERROUS SULFATE 325 MG TAB PO SCH (07:50)
[2019-10-05] MEDS: RIFAXIMIN 550 MG TABLET PO SCH ×2 (07:50→20:33)
[2019-10-05] MEDS: LACTULOSE SYRUP 20 GM/30 ML UDC PO SCH (07:51)
[2019-10-05] MEDS: FOLIC ACID 1 MG TAB PO SCH ×2 (07:51→20:33)
[2019-10-05] MEDS: carvediloL 25 MG TAB PO SCH ×2 (07:51→20:33)
[2019-10-05] MEDS: INSULIN GLARGINE SOLOSTAR 100 UNITS/ML 3 ML PEN SC SCH (07:52)
[2019-10-05] MEDS: HEPARIN SOD 5,000 UNIT/0.5 ML VIAL SQ SCH ×2 (07:53→20:33)
[2019-10-05 07:54] LABS: BUN Creatinine Ratio 29.9 (10-20); Calcium 8.9 mg/dl (8.5-10.1); Creatinine Clr Calc Pharmacy 32.8 ml/min; Est GFR (African American) 39.3; Est GFR (Non-African American) 33.9; Potassium 4.6 mmol/L (3.5-5.1)
[2019-10-05] MEDS: INSULIN ASPART 100 UNITS/ML 3 ML PEN SC SCH ×4 (07:57→21:07)
--- NOTE | 2019-10-05 08:58 | Oncology Consultation ---
Date of Consultation October 05, 2019 Assessment & Plan (1) Pancytopenia: Ms. Sherman is pancytopenic and the etiology of her cytopenias is likely multifactorial. Her platelets and WBCs are almost certainly low due to her liver disease. Her spleen is enlarged by imaging and the recent decline in both numbers corresponds to a general worsening of her liver disease, as manifested by starting lactulose and the varices and portal gastropathy seen on her EGD in early June. She is on a number of medications but none were new around the time her counts began their recent decline. She does have a slight lymphopenia that is likely related to her chronic use of immune suppressive medications. She has no evidence of a viral infection and the chronic nature of these cytopenias would argue against CMV or EBV. She was negative for HCV in January. Her anemia is also likely multifactorial. She has CKD and that is likely contributing. Her liver disease is also likely playing a role. She has a very low transferrin, supporting a diagnosis of anemia of chronic disease. Her iron saturation and ferritin are both normal, which argues against iron deficiency. She is on a folate supplement. I would check a serum Epo level, a reticulocyte count, and her B12. I would also check her TSH if she has not had one recently. If we do not identify a reversible cause of anemia and she remains consistently in the 7-8 range, we could consider BARRY support. With regard to the lymph nodes, they have been present since at least July 2018 and have changed only minimally in that time. One of the axillary nodes was sampled last summer and revealed lymphoid hyperplasia without evidence of lymphoma or carcinoma. She has no symptoms to suggest a lymphoproliferative disorder. In light of the very modest mold insert changer more than a year, at most she would likely have a very low-grade lymphoproliferative disease, if she has one at all. The significance of such a diagnosis, in light of her other significant health issues, is less clear. We can discuss this more as an outpatient. Present on Admission?: Yes History of Present Illness Reason for Consultation: Pancytopenia Lymphadenopathy Attending Physician: Fernando Williamson MD History of Present Illness Ms. Sherman is a 64 year old woman with a history of CHF, pulmonary hypertension, CKD, COPD, MAE cirrhosis, PUD, DM II, and psoriatic arthritis, among other issues. She has had multiple recent hospital stays for complications related to the above issues, particularly volume overload and HENRIQUE. She has been scheduled to see me in the office on a few occasions over that time, but has missed appointments due to these hospital stays. She is pancytopenic. Her hemoglobin and platelets have been low to varying degrees since late 2017, though she had more mildly low counts during a stay in 2012 as well. Her hemoglobin has mostly ranged from about 7.5-10, with some lower values related to an episode of GI bleeding in June. Her MCV has been normal throughout, ranging from the high 80s to low 90s. Her platelets have been mostly under 100 since May 2018, though they've been a bit lower in the last month (40s-50s) than before (mostly 70s-90s). Her WBCs were mostly normal until June. Since then, they've ranged from 2.6 - 4 with no clear trend. That change in her counts corresponds with a period of worsening of her liver disease. She is on multiple medications. The only one that was new around June was the lactulose. She denies any bleeding, melena, or hematuria. She has a dry cough and exertional dyspnea. She denies any chest pain, abdominal pain, nausea, or vomiting. She lost some weight over the last year, though she attributes that in part to diarrhea and fluid shifts. She denies any fevers, chills, sweats, or adenopathy. Allergies Allergy/AdvReac Type Severity Reaction Status Date / Time Sulfa (Sulfonamide Allergy Mild Rash Verified 10/04/19 19:55 Antibiotics) sulfamethoxazole Allergy Mild RASH Verified 10/04/19 19:55 trimethoprim Allergy Mild RASH Verified 10/04/19 19:55 Bactrim Allergy Unknown RASH Verified 08/17/14 08:01 amlodipine AdvReac Intermediate confusion Verified 10/04/19 19:55 adhesive tape AdvReac Mild ITCHING Verified 10/04/19 19:55 Home Medications Home Medications Medication Instructions Recorded Confirmed Type ferrous sulfate 325 mg (65 mg 325 mg PO QAM tab 01/28/19 10/04/19 History iron) tablet adhesive bandage #20 ea 05/18/19 09/23/19 Rx rifaximin 550 mg tablet 550 mg PO BID #60 tab 06/02/19 10/04/19 Rx walker #1 ea 06/25/19 09/23/19 Rx fluticasone propionate 2 sprays INTNAS DAILY PRN 07/13/19 10/04/19 History lactulose 30 ml PO QAM 07/13/19 10/04/19 History folic acid 1 mg tablet 1 mg PO BID #60 tab 08/20/19 10/04/19 Rx ropinirole 2 mg tablet 2 mg PO HS #30 tab 08/20/19 10/04/19 Rx carvedilol 25 mg PO BID #60 tab 09/16/19 10/04/19 Rx miscellaneous medical supply #1 ea 09/22/19 10/01/19 Rx pantoprazole 40 mg tablet,delayed 40 mg PO QAM #30 tab 09/22/19 10/04/19 Rx release spironolactone 50 mg tablet 50 mg PO QAM #90 tab 10/01/19 10/04/19 Rx acetaminophen [Tylenol Extra 500 mg PO Q6H PRN 10/04/19 10/04/19 History Strength] furosemide 20 mg PO QAM 10/04/19 10/04/19 History insulin glargine [Basaglar KwikPen 14 units SUBCUT QAM 10/04/19 10/04/19 History U-100 Insulin] Patient History Medical History Anemia Anxiety Cardiac murmur Diabetes mellitus, type 2 Diverticular disease Duodenal ulcer Esophageal varices Gastric ulcer GERD (gastroesophageal reflux disease) Hematuria History of recent blood transfusion 06/2019 Hyperlipidemia Hypertension Liver cirrhosis Nausea and vomiting after administration of anesthetic agent Osteoarthritis Pancytopenia Psoriatic arthritis Restless leg syndrome Right shoulder pain Surgical History History of anesthesia reaction difficult to wake after bladder tack sx History of bilateral cataract extraction History of bladder surgery bladder tack History of colonoscopy History of esophagogastroduodenoscopy (EGD) multiple---last 06/22/19 [place] [facility] [place] of hemiarthroplasty of right shoulder January 2018 post fracture History of repair of right rotator cuff History of revision of total shoulder arthroplasty Right shoulder, 12/29/18 History of tooth extraction all teeth S/P ORIF (open reduction internal fixation) fracture R shoulder, January 2018 Family History Grandmother (Paternal) Family history of diabetes mellitus Father COPD (chronic obstructive pulmonary disease) Mother Hypertension Family/Other Cancer Sister Ovarian cancer Denies family history of Prostate cancer Myocardial infarction Breast cancer Colorectal cancer Social History Preferred Language: Swazi Communication Ability: Effective Visual Impairment: Limited Hearing Ability: Normal Utility Driver Required: No Beliefs That Will Affect Care: None marital status: Current Living Situation: Spouse Current Living Situation Comment: Lives with and son current occupational status: retired Other Information That Helps Us Care for You: No Feels Safe at Home: Yes Safety Concerns: Feels Safe At This Time Smoking Status: Former smoker Do You Dip or Chew Tobacco: No ; Second Hand Exposure: Yes ; Tobacco Cessation Education Requested by Patient: No Hx Alcohol Use: No Hx Substance Use: No Childhood Exposure to Second-Hand Smoke: Yes Diet Comment: regular Dental Care, Regularly: No Physical Activity Frequency: Does not Exercise Seatbelt Use: sometimes Review of Systems Review of Systems: See HPI for pertinent positives and negatives. Otherwise, ROS was unremarkable. Physical Exam Constitutional: + ill appearing (chronically) and + thin; no acute distress Eyes: + anicteric sclerae and EOM intact bilaterally ENMT: external ear and nose normal, oropharynx normal Mouth: + edentulous Respiratory: normal respiratory effort, lungs clear to auscultation Cardiovascular: Rate/Rhythm: regular rate and regular rhythm Extremities: + edema (1+ bilateral pitting edema in her ankles) Gastrointestinal (Abdomen): Inspection/Auscultation: normal bowel sounds; abdomen not distended Percussion/Palpation: abdomen soft; abdomen nontender Skin: Excoriations on her arms from "picking" and scratching Psychiatric: A+Ox3, euthymic affect Lymphatic: no cervical or axillary lymphadenopathy Results & Data Vital Signs (Past 12 Hours) Vital Signs Temp Pulse Pulse Pulse Resp BP BP 10/05/19 08:00 36.6 C 66 18 170/81 H 10/05/19 04:00 36.6 C 69 20 146/76 H 10/05/19 03:19 78 10/05/19 01:26 36.8 C 75 24 174/72 H 10/04/19 23:51 82 23 171/79 H 10/04/19 22:37 73 20 149/71 H 10/04/19 22:19 78 20 161/95 H 10/04/19 21:21 77 20 170/77 H Pulse Ox 10/05/19 08:00 99 10/05/19 04:00 97 10/05/19 03:19 10/05/19 01:26 90 10/04/19 23:51 92 10/04/19 22:37 94 10/04/19 22:19 95 10/04/19 21:21 93 Laboratory Results Laboratory Tests 10/04/19 20:13 WBC 3.98 L Hgb 7.9 L MCV 92.1 Plt Count 55 L Neut # (Auto) 2.62 Diagnostic Findings I reviewed her CTs dating back to July 2018, both personally and with radiology. The cardiophrenic and axillary lymph nodes are largely stable over that time, without clear or consistent growth. One of the axillary nodes was sampled in March, revealing lymphoid hyperplasia but no evidence of clonality.
[2019-10-05] MEDS ORDERED: FUROSEMIDE 40 MG TAB PO SCH (09:00)
--- NOTE | 2019-10-05 10:04 | XCELERA ---
[id number] \\[email or web address]\[id number]
[2019-10-05] MEDS ORDERED: VANCOMYCIN CONSULT ACTIVE PRN (10:51)
[2019-10-05] MEDS ORDERED: VANCOMYCIN HCL 1,750 MG in SODIUM CHLORIDE 0.9% 500 ML IV ONE (11:15)
--- NOTE | 2019-10-05 12:27 | Pharmacy Report ---
Pharmacy Abx Initial Consult - Date of Service October 05, 2019 - Pharmacy Dosing Scope Date of Consult: 10/05/2019 Consultation requested by: Dr. Zeenat BARRETT Pharmacy is consulted to initiate VANCOMYCIN IV/PO dosing therapy, order appropriate labs and adjust drug dose/frequency. - Subjective The patient is a 64 year old F admitted on 10/04/19 23:27 with GP bacteremia - Objective Height: 5 ft 1 in Weight: 72.8 kg Vital Signs (Past 12hrs): Vital Signs Temp Pulse Pulse Pulse Resp BP BP 10/05/19 08:20 65 10/05/19 08:00 36.6 C 66 18 170/81 H 10/05/19 04:00 36.6 C 69 20 146/76 H 10/05/19 03:19 78 10/05/19 01:26 36.8 C 75 24 174/72 H Pulse Ox 10/05/19 08:20 10/05/19 08:00 99 10/05/19 04:00 97 10/05/19 03:19 10/05/19 01:26 90 Lab Results (24hrs): Laboratory Tests (24 Hours) 10/05/19 10/04/19 10/04/19 06:52 20:13 20:12 WBC 3.98 L Neut # (Auto) 2.62 Creatinine 1.60 H Est Cr Clr Drug Dosing 32.8 Procalcitonin 0.15 10/04/19 20:12 WBC Neut # (Auto) Creatinine 1.66 H Est Cr Clr Drug Dosing Not Reportable Procalcitonin Micro Results: 10/04/19 21:44 Aerobic Blood Culture - Pending Blood 10/04/19 21:59 Anaerobic Blood Culture - Pending Blood - Assessment & Plan Assessment 64 year old F admitted with 2 out of 2 blood cultures positive for Gram positive cocci. Plan vancomycin for treatment of bacteremia Vancomycin IV Patient meets criteria for vancomycin AUC dosing nomogram AUC/KIN is the preferred PK/PD target for vancomycin * Target AUC/KIN = 400-600 * AUC guided dosing is effective and associated with decreased risk of nephrotoxicity * Trough levels poorly correlate with AUC/KIN and trough monitoring has been associated with increased risk of nephrotoxicity Pharmacy will continue to follow and will adjust dose/frequency as necessary. Thank you.
--- NOTE | 2019-10-05 15:44 | Hospitalist Progress Note ---
Date of Service October 05, 2019 Assessment & Plan (1) Bacteremia: Blood cultures from 10/04 growing Gram(+) cocci in chains. Likely from her pneumonia. - Continue vancomycin until speciation - Check MRSA swab (presuming this is coming from a pneumonia) - TTE on 10/05 without vegetation. - Consult ID. Considering BETY. (2) Pneumonia: CT chest on 10/04 indicated significant LLL pneumonia. - Abx as above - Thoracic surgery consult for possible thoracentesis (3) Liver cirrhosis: MAE cirrhosis. Now with volume overload due to have to adjust diuretics due to her prior HENRIQUE. Apparently working to get a GI doctor in [place]. MELD score of 14 on 10/05, giving her 6% 3-month mortality. - Restarted Lasix and spironolactone - Limited ultrasound for ascites -> Could benefit from paracentesis as son feels abdomen is bloated. (4) CHF (congestive heart failure): Carries this diagnosis, though it is unclear if this is really heart- related vs. liver. - Continue diuretics for liver disease as above (5) Pleural effusion: CT chest on 10/04 showed mild right and moderate left pleural effusions. - As above (6) Pancytopenia: Long-standing. Likely due to liver issues as well as anemia of chronic disease. - Seen by heme/onc on 10/05 -> No acute needs. Will order some additional testing in the morning: B12/Epo level/retic count/TSH (7) Chronic kidney disease, stage III (moderate): Baseline Cr ~1.6, eGFR ~34. - At baseline at present - Monitor Cr with diuresis (8) DM type 2 (diabetes mellitus, type 2): A1c was 6.3% this admission, though with CKD, this is a less reliable marker. - Continue home Lantus - Sliding scale insulin (9) Hypertension: BP is 170/80 today. - Continue home beta-maxwell, Lasix, and spironolactone - Monitor (10) Psoriatic arthritis: Nothing active at present time. - Monitor (11) Rheumatoid arthritis: Nothing active at present time. Left shoulder is painful, but I do not think it represents acute inflammation, but rather long-term issue. - Monitor (12) DVT prophylaxis: Heparin 5000 units SQ Q12h Admission and Anticipated Discharge Date Admission Date: October 04, 2019 Subjective Variety of issues today. She reports some leg cramping pain and right shoulder pain that are both chronic in nature. Her shortness of breath is stable from when she was admitted. Reports no fevers/chills, chest pain, abdominal pain, nausea, or vomiting. Physical Exam Constitutional: WD/WN, vitals as above Eyes: EOM intact bilaterally; no conjunctival abnormality ENMT: external ear and nose normal, oropharynx normal Neck: trachea midline, no thyromegaly normal visual inspection Respiratory: normal respiratory effort, lungs clear to auscultation no respiratory distress Cardiovascular: RRR, no murmur, no edema Gastrointestinal (Abdomen): Inspection/Auscultation: abdomen normal to inspection; abdomen not distended Musculoskeletal: no cyanosis or clubbing, extremities motor strength 5/5 Skin: no rashes, warm and dry Neurologic: moves all extremities and awake Psychiatric: Orientation: alert, oriented to person and cooperative Results & Data ([facility]) Vital Signs (Past 12 Hours) Vital Signs Temp Pulse Pulse Pulse Resp BP BP 10/05/19 15:00 67 10/05/19 08:20 65 10/05/19 08:00 36.6 C 66 18 170/81 H 10/05/19 04:00 36.6 C 69 20 146/76 H Pulse Ox 10/05/19 15:00 10/05/19 08:20 10/05/19 08:00 99 10/05/19 04:00 97 PG Care Time/CCT Total # of Minutes Spent Total Time Spent with Patient: Total time spent is greater than 50% in coordination of care (as documented) at patient's floor/unit and/or counseling patient: Coding Level of Care Code 87663 Subseq Hosp Care Lvl 3 Diagnoses Bacteremia R78.81 Pneumonia J18.9 Laterality: bilateral Lung location: unspecified part of lung Pneumonia type: due to unspecified organism Liver cirrhosis K74.60 CHF (congestive heart failure) I50.9 Heart failure chronicity: unspecified Heart failure type: unspecified Pleural effusion J90 Pancytopenia D61.818 Chronic kidney disease, stage III (moderate) N18.3 DM type 2 (diabetes mellitus, type 2) E11.65 Diabetes mellitus intermediate card tender insulin use: without fdc use Diabetes mellitus complication status: with hyperglycemia Hypertension I10 Hypertension type: essential hypertension Psoriatic arthritis L40.50 Rheumatoid arthritis M06.9 Rheumatoid arthritis location: multiple sites Rheumatoid factor presence: unspecified presence DVT prophylaxis Z29.9 (1) Pneumonia Laterality: bilateral Lung location: unspecified part of lung Pneumonia type: due to unspecified organism Qualified Code(s): J18.9 - Pneumonia, unspe cified organism (2) CHF (congestive heart failure) Heart failure chronicity: unspecified Heart failure type: unspecified Qualified Code(s): I50.9 - Heart failure, unspecified (3) DM type 2 (diabetes mellitus, type 2) Diabetes mellitus fdc insulin use: without fdc use Diabetes mellitus complication status: with hyperglycemia Qualified Code(s): E11.65 - Type 2 diabetes mellitus with hyperglycemia (4) Hypertension Hypertension type: essential hypertension Qualified Code(s): I10 - Essential (primary) hypertension (5) Rheumatoid arthritis Rheumatoid arthritis location: multiple sites Rheumatoid factor presence: unspecified presence Qualified Code(s): M06.9 - Rheumatoid arthritis, unspecified
[2019-10-05] MEDS ORDERED: ACETAMINOPHEN 500 MG TAB PO PRN (16:08)
[2019-10-05] MEDS: FUROSEMIDE 40 MG in SYRINGE 0 ML IV SCH (17:26)
--- NOTE | 2019-10-05 17:29 | XRay Report ---
XR chest 1V portable CLINICAL HISTORY: 64 years-old Female presenting with thoracentesis. TECHNIQUE: Portable upright AP view of the chest was obtained. COMPARISON: 10/04/2019. FINDINGS: Atherosclerosis of the aortic arch. Cardiac silhouette enlarged. Pulmonary vascular prominence. Inter stitial prominence, stable to slightly increased from prior. Slightly added density of the right lung similar to prior. Added density in the right suprahilar region corresponds to the known underlying c onsolidation in the posterior right upper lobe evident on CT. Underlying pleural effusions not well a ppreciated status post reported thoracentesis. No pneumothorax evident allowing for image quality and portable technique. Reverse right total shoulder arthroplasty. Osteopenia. Upper abdomen normal. IMPRESSION: 1. Cardiomegaly with stable to slightly worsened volume overload and congestive change. Mild pulmona ry edema remains present. 2. Underlying consolidation in the right upper lobe again evident. This is concerning for pneumonia. 3. No pneumothorax allowing for image quality status post reported thoracentesis. ACT 112: Negative or not required by law. Electronically signed by: Marco Mac M.D. 10/05/2019 5:27 PM
[2019-10-05 18:22] LABS: Appearance Pleural Fluid CLEAR; Color Pleural Fluid YELLOW; RBC Pleural Fluid (A) < 3000 /uL; Source Pleural Fluid LEFT LUNG; WBC Pleural Fluid (A) 91 /uL
[2019-10-05 18:23] LABS: Eosinophils, Fluid 1 %; Lymphocytes, Fluid 30 %; Mono,Macrophage,Mesothelial 33 %; Neutrophils, Fluid 36 %
[2019-10-05 18:29] LABS: Total Protein Pleural Fluid 2.1 g/dl
--- NOTE | 2019-10-05 20:19 | Consultation Report ---
DATE OF CONSULTATION: 10/05/2019 REASON FOR CONSULTATION: Left pleural effusion. HISTORY OF PRESENT ILLNESS: This is a 64-year-old that I know of. She has multiple medical issues including pulmonary hypertension, episodes of congestive heart failure, renal insufficiency, hepatic cirrhosis due to MAE, chronic obstructive pulmonary disease, diabetes, obesity, psoriatic arthritis who has become more short of breath over the last couple of weeks. She is followed by Dr. Phil Galeano for her renal insufficiency. She is now pancytopenic and this has been going on for a while and she has been followed by Hematology. More recently in the last few months, her white count has dropped. Platelets remain under 100 and in fact have been even lower recently. This is probably due to her renal disease. She denies a productive cough or fever; however, she does have pleural effusions and she also has some lymph nodes. Particularly, she has left axillary nodes, which are large, but these were sampled several months ago and are reactive with lymphoid hyperplasia. I was asked to see her about this pleural effusion. I have some concerns because she has positive blood cultures. She has 2 blood cultures positive for gram positive cocci. She certainly does not appear toxic. After a long discussion, we elected to proceed with a thoracentesis. PAST MEDICAL HISTORY: Please see history of present illness. PAST SURGICAL HISTORY: 1. Hemiarthroplasty, right shoulder. 2. Multiple upper endoscopies and colonoscopies. 3. Bladder suspension. 4. Cataract extractions bilaterally. 5. Multiple shoulder procedures prior to her hemiarthroplasty. MEDICATIONS: Please see chart. ALLERGIES: MULTIPLE, INCLUDE SULFA, AMLODIPINE AND ADHESIVE TAPE. FAMILY MEDICAL HISTORY: Her children are healthy. She did have a sister with ovarian cancer, mother with hypertension, father with emphysema and there is a history of diabetes. SOCIAL HISTORY: The patient lives with her son and her . She does not smoke cigarettes. She is exposed to secondhand smoke. She does not drink alcohol. REVIEW OF SYSTEMS: The patient has been more short of breath with dyspnea in the last 2 months or so. She denies any acute change. She has been on oxygen for the last 2 to 3 weeks. Her weight has been relatively stable. She denies night sweats. She has not had a productive cough, although she is quite dyspneic. She denies palpitations. She does have edema of her lower legs, but has had no wound issues. She has had no change in her vision or hearing. She has had no neurologic events such as amaurosis fugax or focal deficits. PHYSICAL EXAMINATION: GENERAL: This is an awake, alert and oriented woman who discussed the book she was reading to me. She does appear chronically ill. HEENT: She has no temporal wasting. Her sclerae are anicteric. Her extraocular movements are intact. Her tongue is midline. She is edentulous. I do not detect evidence of candidiasis or oral mucosal lesions. NECK: Supple. She has no carotid bruits. HEART: Has a regular rate and rhythm of her heart. LUNGS: She is moving air well. She does have decreased breath sounds bilaterally, worse on the left than the right. ABDOMEN: A bit protuberant, soft. I do not really detect marked ascites. She is not really very tender. EXTREMITIES: She does have 1+ edema of her lower legs. I have difficulty palpating pulses. Her feet are warm and well perfused. NEUROLOGIC: She does not have asterixis or any other neurologic symptoms. DATA: I reviewed her CT scan and indeed she does have pleural effusions greater on the left than the right. In addition, she also has some consolidation in the left lower lobe. She has a cirrhotic liver and her axillary adenopathy has worsened. She also has a cardiophrenic node, which is large. ASSESSMENT AND PLAN: Left pleural effusion with positive blood cultures. We have to prove that this is not an empyema. I am going to do a thoracentesis today.
--- NOTE | 2019-10-05 20:27 | Operative Report ---
DATE OF OPERATION: 10/05/2019 PREOPERATIVE DIAGNOSIS: Left pleural effusion. POSTOPERATIVE DIAGNOSIS: Left pleural effusion. PROCEDURE: Left thoracentesis under ultrasound guidance. SURGEON: Catarino Sheridan MD FILTER OPERATOR: AIDAN Merritt ANESTHESIA: Local. SPECIFICS OF PROCEDURE: After appropriate consent had been obtained, I used a bedside ultrasound to evaluate her pleural cavities. She has fluid on both sides, more on the left than the right. I marked this with indelible ink. She was then prepped and draped in usual sterile fashion. After appropriate timeout had been called, a 25-gauge needle, 1% Xylocaine without epinephrine was used to anesthetize skin and subcutaneous tissues. Large bore needle was used to anesthetize the deeper subcutaneous tissues and pleura and then I got clear fluid back. This was a very light yellow serous fluid. Guidewire was inserted through the needle and the needle removed. Triple lumen catheter was slid over the guidewire and the guidewire removed. Approximately 550 mL of serous fluid was drained. She had some reexpansion coughing with pain which quickly resolved. Her chest x-ray showed no evidence of pneumothorax and she had a sharp diaphragmatic border. She tolerated it quite well. Catheter was removed and an antimicrobial dressing was placed. It was occlusive. She tolerated it well. I attest to the content of the Intraoperative Record and any orders documented therein. Any exception s are noted below.
[2019-10-05] MEDS: ROPINIROLE HCL 1 MG TABLET PO SCH (20:33)
--- NOTE | 2019-10-06 05:47 | Electrocardiogram Report ---
Test Reason : Blood Pressure : / mmHG Vent. Rate : 077 BPM Atrial Rate : 077 BPM P-R Int : 198 ms QRS Dur : 082 ms QT Int : 398 ms P-R-T Axes : 058 046 044 degrees QTc Int : 450 ms Sinus rhythm with Premature atrial complexes Otherwise normal ECG When compared with ECG of 07-SEP-2019 18:35, Premature atrial complexes are now Present Confirmed by Gentry Cook ([id number]) on 10/06/2019 5:47:14 AM Referred By: REFERRED SELF Confirmed By:Gentry Cook
[2019-10-06 07:15] LABS: Hematocrit (blood only) 22.6 % (37-47); Hemoglobin 7.3 g/dL (12.0-16.0); Mean Corpuscular Hemoglobin 29.6 pg (25-34); Mean Corpuscular Hgb Conc 32.3 g/dL (32-36); Mean Corpuscular Volume 91.5 fL (80-100); RDW Coefficient of Variation 17.8 % (11.5-14.5); RDW Standard Deviation 58.8 fL (36.4-46.3); Red Blood Count 2.47 M/uL (4.2-5.4); White Blood Count 4.34 K/uL (4.8-10.8)
[2019-10-06 07:20] LABS: Immature Retic Fraction 9.7 % (3.0-15.9); Mean Platelet Volume 9.3 fL (7.4-10.4); Platelet Count 44 K/uL (130-400); Reticulated Hemoglobin 31.5 pg (28.2-36.6); Reticulocyte % 2.1 % (0.5-2.0); Reticulocytes # 0.05 10^6/uL (0.02-0.10)
--- NOTE | 2019-10-06 07:23 | Ultrasound Report ---
ULTRASOUND ASCITES CHECK CLINICAL HISTORY: Cirrhosis and ascites. COMPARISON STUDY: Abdominal CT dated 08/05/2019. FINDINGS: Real-time grayscale sonography of all 4 quadrants of the abdomen is performed to assess for abdominal ascites. There is trace perisplenic ascites identified in the left upper quadrant. Survey images of the liver show cirrhotic liver morphology and nodular hepatic surface contour. Small pleura l effusions are noted. IMPRESSION: 1. Trace perisplenic ascites. 2. Small pleural effusions. 3. Cirrhotic liver morphology. Electronically signed by: Alexander Feldman M.D. 10/06/2019 7:22 AM
[2019-10-06 07:24] LABS: INR 1.4 (0.9-1.1); Prothrombin Time 14.2 Seconds (9.0-12.0)
[2019-10-06 07:41] LABS: Platelet Estimate Decreased (Normal)
[2019-10-06 07:46] LABS: Albumin Level 2.1 gm/dl (3.4-5.0); BUN Creatinine Ratio 24.9 (10-20); Calcium 8.8 mg/dl (8.5-10.1); Creatinine Clr Calc Pharmacy 24.7 ml/min; Est GFR (African American) 27.8; Magnesium 1.9 mg/dl (1.8-2.4); Potassium 4.7 mmol/L (3.5-5.1)
--- NOTE | 2019-10-06 07:58 | XRay Report ---
XR chest 1V portable HISTORY: effusion COMPARISON: Chest 10/05/2019. FINDINGS: No pneumothorax. Heart remains mildly enlarged. Small left pleural effusion and left basila r densities persist. This is trace right pleural effusion. No evidence for pulmonary edema. There is a right shoulder prosthesis. Right suprahilar focal consolidation also remains unchanged. IMPRESSION: 1. No change in the small left and trace right pleural effusions. 2. Right suprahilar focal consolidation persists. This may represent a pneumonia. Recommend follow-up to ensure resolution. ACT 112: Negative or not required by law. Electronically signed by: James Murillo M.D. 10/06/2019 7:57 AM
[2019-10-06 08:08] LABS: Albumin Globulin Ratio 0.4 (0.9-2); Bilirubin,Total 1.2 mg/dl (0.2-1); Globulin 5.4 gm/dl (2.5-4.0); Phosphorus 3.8 mg/dl (2.5-4.9); Thyroid Stimulating Hormone 3.17 uIu/ml (0.300-4.500); Total Protein 7.5 gm/dl (6.4-8.2)
[2019-10-06] MEDS: SPIRONOLACTONE 25 MG TAB PO SCH (08:24)
[2019-10-06] MEDS: LACTULOSE SYRUP 20 GM/30 ML UDC PO SCH (08:24)
[2019-10-06] MEDS: FERROUS SULFATE 325 MG TAB PO SCH (08:25)
[2019-10-06] MEDS: RIFAXIMIN 550 MG TABLET PO SCH ×2 (08:25→20:38)
[2019-10-06] MEDS: PANTOprazole 40 MG TAB PO SCH (08:25)
[2019-10-06] MEDS: FOLIC ACID 1 MG TAB PO SCH ×2 (08:26→20:38)
[2019-10-06] MEDS: carvediloL 25 MG TAB PO SCH ×2 (08:26→20:37)
[2019-10-06] MEDS: FUROSEMIDE 40 MG in SYRINGE 0 ML IV SCH (08:26)
[2019-10-06] MEDS: INSULIN GLARGINE SOLOSTAR 100 UNITS/ML 3 ML PEN SC SCH (08:27)
[2019-10-06] MEDS: INSULIN ASPART 100 UNITS/ML 3 ML PEN SC SCH ×4 (08:29→20:39)
--- NOTE | 2019-10-06 10:39 | Nephrology Consultation ---
Date of Consultation October 06, 2019 Assessment & Plan (1) Acute kidney injury: Angela was admitted on 10/04/2019 with progressive dyspnea over a month. On admission she was found to have bilateral pleural effusion and volume overload, had diagnostic thoracentesis and started on IV diuretics. Currently she is on Lasix 40 milligram IV daily as well as her home dose of spironolactone 50 milligram daily. Initially on admission her renal function was at baseline, ( CKD b/l cr 1.6-1.7 ), renal function slightly worsened to creatinine 2.1 this morning. She has been net positive and blood pressure has been stable. Has history of recurrent episode of acute kidney injury in the setting of high dose of diuretics for volume overload. Slight worsening of renal function from her baseline could be hemodynamically mediated in the setting of IV diuretic although she has been in fact net positive, however she is not that far from her baseline, with repeated episodes of acute kidney injury she does have risk for progressive worsening of renal function and/or recurrent acute kidney injury. --would continue the IV Lasix and spironolactone for now, may need to accept slight azotemia in order to improve her volume status. --unclear etiology for low-grade proteinuria and microscopic hematuria, she did have extensive workup during last admission for any other causes or any intrinsic renal disease, serological workup at that time was concerning for low complement. ? Possibility for underlying glomerular pathology including hypocomplementemia GN remains. JUAN, ANCA was negative, DsDNA was not done. Considering proteinuria, hematuria changing renal function over just few months, hypocomplementemia, concern for ? Lupus nephritis. If proteinuria and hematuria persist, once she is clinically stable, I think it would be worth while to discuss about renal biopsy --will check DsDNA and repeat complement --intake and output, aim for slightly net negative --monitor renal function and electrolytes closely while on diuretics Will follow Thank you for allowing me to participate in your patient's care. It was a pleasure to see Angela (2) Pleural effusion: (3) SOB (shortness of breath): (4) Chronic kidney disease, stage III (moderate): (5) Hematuria: History of Present Illness Reason for Consultation: Acute kidney injury is with history of CKD, volume overload. He Attending Physician: Fernando Williamson MD History of Present Illness Angela Sherman is a 64-year-old female with complex past medical history including stage 3 chronic kidney disease, cirrhosis with MAE and recurrent acute kidney injury. Admitted to the hospital with shortness of breath and volume overload. Nephrology consult was requested to manage acute kidney injury and volume status. Electronic medical records are reviewed in detail during patient's visit. Angela presented to ER on 10/04/19 with progressive worsening of shortness of breath. Chest x-ray on admission showed bilateral small pleural effusion, she was evaluated by thoracic surgery and had diagnostic thoracentesis yesterday. At home she was on spironolactone 50 and Lasix 20 milligram daily, since admission she received IV Lasix 40 milligram daily. Shortness of breath somewhat improved. Urine output has been decent but have been net positive. Weight seems to be at her baseline, which is around 160-161 pounds. Echo showed normal EF, left atrial dilatation. On admission her renal function was at baseline, 1.7. Renal function slightly worsened over last 2 days and creatinine this morning was 2.1. Urinalysis showed low grade proteinuria and hematuria. Previously she had 24 hour urine which showed 5 and milligram of protein. Serological workup was significant for low complements. Renal ultrasound during prior admissions showed otherwise normal size kidneys. She was also started on broad-spectrum antibiotic empirically for concern for possible pneumonia and empyema. Angela has stage III CKD, baseline creatinine lately has been around 1.6-1.7 although her renal function has been quite variable with recurrent episode of acute kidney injury over last few months. Chronic kidney disease in the setting of recurrent acute kidney injury as well as some component of hepatorenal syndrome. She was admitted to hospital in July and August with the of volume overload, received diuretics and eventually developed acute kidney injury. On discharge in August diuretics was on hold. Since stopping in diuretics she noticed gradual increase in her weight. She was seen by her primary eligibility worker Dr. Galeano on 10/01/2019 when she was found to be volume overloaded, had shortness of breath with bilateral pleural effusion and diuretics was restarted. Currently she feels like her shortness of breath slightly improved and overall feeling better. Allergies Allergy/AdvReac Type Severity Reaction Status Date / Time Sulfa (Sulfonamide Allergy Mild Rash Verified 10/04/19 19:55 Antibiotics) sulfamethoxazole Allergy Mild RASH Verified 10/04/19 19:55 trimethoprim Allergy Mild RASH Verified 10/04/19 19:55 Bactrim Allergy Unknown RASH Verified 08/17/14 08:01 amlodipine AdvReac Intermediate confusion Verified 10/04/19 19:55 adhesive tape AdvReac Mild ITCHING Verified 10/04/19 19:55 Home Medications Home Medications Medication Instructions Recorded Confirmed Type ferrous sulfate 325 mg (65 mg 325 mg PO QAM tab 01/28/19 10/04/19 History iron) tablet adhesive bandage #20 ea 05/18/19 09/23/19 Rx rifaximin 550 mg tablet 550 mg PO BID #60 tab 06/02/19 10/04/19 Rx walker #1 ea 06/25/19 09/23/19 Rx fluticasone propionate 2 sprays INTNAS DAILY PRN 07/13/19 10/04/19 History lactulose 30 ml PO QAM 07/13/19 10/04/19 History folic acid 1 mg tablet 1 mg PO BID #60 tab 08/20/19 10/04/19 Rx ropinirole 2 mg tablet 2 mg PO HS #30 tab 08/20/19 10/04/19 Rx carvedilol 25 mg PO BID #60 tab 09/16/19 10/04/19 Rx miscellaneous medical supply #1 ea 09/22/19 10/01/19 Rx pantoprazole 40 mg tablet,delayed 40 mg PO QAM #30 tab 09/22/19 10/04/19 Rx release spironolactone 50 mg tablet 50 mg PO QAM #90 tab 10/01/19 10/04/19 Rx acetaminophen [Tylenol Extra 500 mg PO Q6H PRN 10/04/19 10/04/19 History Strength] furosemide 20 mg PO QAM 10/04/19 10/04/19 History insulin glargine [Basaglar KwikPen 14 units SUBCUT QAM 10/04/19 10/04/19 History U-100 Insulin] peg 3350-electrolytes 236 240 ml PO .COMPLEX #4000 ml 10/06/19 Rx gram-22.74 gram-6.74 gram-5.86 gram solution Patient History Medical History (Updated 10/06/19 @ 10:38 by Holley Alonso MD) Acute kidney injury Anemia Anxiety Cardiac murmur Diabetes mellitus, type 2 Diverticular disease Duodenal ulcer Esophageal varices Gastric ulcer GERD (gastroesophageal reflux disease) Hematuria History of recent blood transfusion 06/2019 Hyperlipidemia Hypertension Liver cirrhosis Nausea and vomiting after administration of anesthetic agent Osteoarthritis Pancytopenia Psoriatic arthritis Restless leg syndrome Right shoulder pain Surgical History History of anesthesia reaction difficult to wake after bladder tack sx History of bilateral cataract extraction History of bladder surgery bladder tack History of colonoscopy History of esophagogastroduodenoscopy (EGD) multiple---last 06/22/19 Dr. Malena Marie at [facility] [place] History of hemiarthroplasty of right shoulder January 2018 post fracture History of repair of right rotator cuff History of revision of total shoulder arthroplasty Right shoulder, 12/29/18 History of tooth extraction all teeth S/P ORIF (open reduction internal fixation) fracture R shoulder, January 2018 Family History Grandmother (Paternal) Family history of diabetes mellitus Father COPD (chronic obstructive pulmonary disease) Mother Hypertension Family/Other Cancer Sister Ovarian cancer Denies family history of Prostate cancer Myocardial infarction Breast cancer Colorectal cancer Social History Preferred Language: Faroese Communication Ability: Effective Visual Impairment: Limited Hearing Ability: Normal Strategic Planning Director Required: No Beliefs That Will Affect Care: None marital status: Current Living Situation: Spouse Current Living Situation Comment: Lives with and son current occupational status: retired Other Information That Helps Us Care for You: No Feels Safe at Home: Yes Safety Concerns: Feels Safe At This Time Smoking Status: Former smoker Do You Dip or Chew Tobacco: No ; Second Hand Exposure: Yes ; Tobacco Cessation Education Requested by Patient: No Hx Alcohol Use: No Hx Substance Use: No Childhood Exposure to Second-Hand Smoke: Yes Diet Comment: regular Dental Care, Regularly: No Physical Activity Frequency: Does not Exercise Seatbelt Use: sometimes Review of Systems Review of Systems: All systems reviewed & are unremarkable except as noted in HPI & below Physical Exam Constitutional: WD/WN, vitals as above well developed and well nourished; no acute distress Eyes: PERRL, conjunctivae normal, anicteric sclerae ENMT: external ear and nose normal, oropharynx normal Ears: no hearing impairment Neck: trachea midline Respiratory: normal respiratory effort and + respiratory distress (Mild respiratory distress while talking.); no cough Auscultation: + crackles; no rales and no wheezes Cardiovascular: RRR, no murmur, no edema Gastrointestinal (Abdomen): normal bowel sounds, soft, nontender, no hepatosplenomegaly Percussion/Palpation: abdomen nontender, no guarding and abdomen not rigid Musculoskeletal: Extremities: extremities normal to inspection Gait: normal gait Skin: no rashes, warm and dry Neurologic: moves all extremities and awake Psychiatric: A+Ox3, euthymic affect Results & Data Vital Signs (Past 12 Hours) Vital Signs Temp Pulse Pulse Pulse Resp BP BP 10/06/19 07:50 36.8 C 71 18 134/71 10/06/19 07:43 74 10/06/19 05:37 70 135/67 10/06/19 00:00 80 10/05/19 23:12 36.8 C 81 24 165/87 H 10/05/19 22:26 84 24 Pulse Ox 10/06/19 07:50 95 10/06/19 07:43 10/06/19 05:37 94 10/06/19 00:00 10/05/19 23:12 95 10/05/19 22:26 98 PG Care Time/CCT Total # of Minutes Spent Total Time Spent with Patient: Total time spent is greater than 50% in coordination of care (as documented) at patient's floor/unit and/or counseling patient: Coding Level of Care Code 86061 Inpt Consult Level 5 Diagnoses Acute kidney injury N17.9 Pleural effusion J90 SOB (shortness of breath) R06.02 Chronic kidney disease, stage III (moderate) N18.3 Hematuria R31.9
[2019-10-06] MEDS ORDERED: VANCOMYCIN HCL 1,000 MG in SODIUM CHLORIDE 0.9% 250 ML IV SCH (11:00)
[2019-10-06] MEDS ORDERED: DAPTOMYCIN CONSULT ACTIVE PRN (11:32)
[2019-10-06] MEDS ORDERED: PHARMACY GLYCEMIC MGMT CONSULT PRN (11:32)
--- NOTE | 2019-10-06 11:46 | Pharmacy Report ---
Glycemic Control Consultation - Date of Service October 06, 2019 - Scope Scope: Glycemic Pharmacist consulted by Dr Zeenat Williamson on 10/06/2019 for glycemic control and to write orders per [facility] inpatient glycemic control protocol - Objective Weight: 72.8 kg Accuchecks BSG (last 24hrs): 10/05/19 10/05/19 10/06/19 16:20 20:41 06:47 Glucose 99 POC Glucose 207 H 148 H 10/06/19 07:39 Glucose POC Glucose 110 H Laboratory Data (last 24hrs): 10/06/19 06:47 Potassium 4.7 Carbon Dioxide 18 L Anion Gap 6.0 Creatinine 2.13 H D Est Cr Clr Drug Dosing 24.7 HbA1c: Hemoglobin A1c 6.3 % (4.5-5.6) H 10/05/19 06:52 - Recent Pertinent Medications Outpatient Anti-diabetic Regimen: * Lantus 14 units * A1c = 6.3 % 10/05/2019 The patient is currently receiving: * Basal insulin: Lantus 14 units every 24 hours * Correctional Insulin: Novolog Correction per scale ACHS Goal Range: Low 140 mg/dL - High 180 mg/dL Correction Factor: 50 mg/dL/unit * Prandial insulin: Per carb ratio of 1 unit per 30 grams CHO consumed * Oral Agents: Risk Factors for Insulin Resistance: * Infection: Bacteremia on Rocephin * Diet: T2DM - Assessment & Plan Assessment & Plan: ASSESSMENT: * Ms Sherman is a 64 y/o F with a PMH of well controlled T2DM who presents with a bacteremia now on Rocephin. * Patient received 19 units yesterday (14 units of basal and 5 units of bolus insulin). Patient's BSG yesterday were [phone] mg/dL. Fasting today is 110 mg/dL. * Patient's fasting is trending down - reduce dose by 50% as 14 units may represent all that patient requires for insulin. * BSGs trended upwards yesterday. Tighten CF/CR. PLAN FOR INPATIENT GLYCEMIC CONTROL: * Basal insulin * Lantus 7 units SQ qAM (hold if BSG less than 100 mg/dL) * Bolus insulin * NovoLog per scale ACHS or Q6hrs while NPO * Goal Range: Low 120 mg/dL - High 160 mg/dL * Correction Factor: 30 mg/dL/unit * Nutritional / Prandial insulin per carb ratio of 1 unit per 10 grams CHO consumed * Please note that the plan above was derived based on current level of insulin resistance and hospital stress. These recommendations are appropriate for inpatient admission only. Plan of care upon discharge will need to be reassessed to avoid potential outpatient hypo/hyperglycemia. Thank you.
--- NOTE | 2019-10-06 13:05 | Infectious Disease Consult ---
Date of Consultation October 06, 2019 Assessment & Plan (1) Gram positive sepsis: continue vanco for now, ? source - skin vs gi vs lung. will need 14 days abx, final will depend on culture results. would hold gianluca for now and follow repeat cultures. History of Present Illness Attending Physician: Fernando Williamson MD pt admitted with sob and leg edema. was found to have b/l effusions, underwent drainage yesterday, 550ml fluid. afebrile since admission, had blood cultures done on 10/04 growing gpc in chains, on vanco tolerating well. repeat cultures pending. Echo negative, ID consulted re: need for GIANLUCA. has MAE and . cirrhosis, min ascites noted. no abd pain, eating lunch on my exam. feeling much better. no cp, sob, cough, no abd pain, no n/v/d Allergies Allergy/AdvReac Type Severity Reaction Status Date / Time Sulfa (Sulfonamide Allergy Mild Rash Verified 10/04/19 19:55 Antibiotics) sulfamethoxazole Allergy Mild RASH Verified 10/04/19 19:55 trimethoprim Allergy Mild RASH Verified 10/04/19 19:55 Bactrim Allergy Unknown RASH Verified 08/17/14 08:01 amlodipine AdvReac Intermediate confusion Verified 10/04/19 19:55 adhesive tape AdvReac Mild ITCHING Verified 10/04/19 19:55 Home Medications Home Medications Medication Instructions Recorded Confirmed Type ferrous sulfate 325 mg (65 mg 325 mg PO QAM tab 01/28/19 10/04/19 History iron) tablet adhesive bandage #20 ea 05/18/19 09/23/19 Rx rifaximin 550 mg tablet 550 mg PO BID #60 tab 06/02/19 10/04/19 Rx walker #1 ea 06/25/19 09/23/19 Rx fluticasone propionate 2 sprays INTNAS DAILY PRN 07/13/19 10/04/19 History lactulose 30 ml PO QAM 07/13/19 10/04/19 History folic acid 1 mg tablet 1 mg PO BID #60 tab 08/20/19 10/04/19 Rx ropinirole 2 mg tablet 2 mg PO HS #30 tab 08/20/19 10/04/19 Rx carvedilol 25 mg PO BID #60 tab 09/16/19 10/04/19 Rx miscellaneous medical supply #1 ea 09/22/19 10/01/19 Rx pantoprazole 40 mg tablet,delayed 40 mg PO QAM #30 tab 09/22/19 10/04/19 Rx release spironolactone 50 mg tablet 50 mg PO QAM #90 tab 10/01/19 10/04/19 Rx acetaminophen [Tylenol Extra 500 mg PO Q6H PRN 10/04/19 10/04/19 History Strength] furosemide 20 mg PO QAM 10/04/19 10/04/19 History insulin glargine [Basaglar KwikPen 14 units SUBCUT QAM 10/04/19 10/04/19 History U-100 Insulin] peg 3350-electrolytes 236 240 ml PO .COMPLEX #4000 ml 10/06/19 Rx gram-22.74 gram-6.74 gram-5.86 gram solution Patient History Medical History Acute kidney injury Anemia Anxiety Cardiac murmur Diabetes mellitus, type 2 Diverticular disease Duodenal ulcer Esophageal varices Gastric ulcer GERD (gastroesophageal reflux disease) Hematuria History of recent blood transfusion 06/2019 Hyperlipidemia Hypertension Liver cirrhosis Nausea and vomiting after administration of anesthetic agent Osteoarthritis Pancytopenia Psoriatic arthritis Restless leg syndrome Right shoulder pain Surgical History History of anesthesia reaction difficult to wake after bladder tack sx History of bilateral cataract extraction History of bladder surgery bladder tack History of colonoscopy History of esophagogastroduodenoscopy (EGD) multiple---last 06/22/19 Dr. Malena Marie at [facility] [place] History of hemiarthroplasty of right shoulder January 2018 post fracture History of repair of right rotator cuff History of revision of total shoulder arthroplasty Right shoulder, 12/29/18 History of tooth extraction all teeth S/P ORIF (open reduction internal fixation) fracture R shoulder, January 2018 Family History Grandmother (Paternal) Family history of diabetes mellitus Father COPD (chronic obstructive pulmonary disease) Mother Hypertension Family/Other Cancer Sister Ovarian cancer Denies family history of Prostate cancer Myocardial infarction Breast cancer Colorectal cancer Social History Preferred Language: Tongan Communication Ability: Effective Visual Impairment: Limited Hearing Ability: Normal Meeting Manager Required: No Beliefs That Will Affect Care: None marital status: Current Living Situation: Spouse Current Living Situation Comment: Lives with and son current occupational status: retired Other Information That Helps Us Care for You: No Feels Safe at Home: Yes Safety Concerns: Feels Safe At This Time Smoking Status: Former smoker Do You Dip or Chew Tobacco: No ; Second Hand Exposure: Yes ; Tobacco Cessation Education Requested by Patient: No Hx Alcohol Use: No Hx Substance Use: No Childhood Exposure to Second-Hand Smoke: Yes Diet Comment: regular Dental Care, Regularly: No Physical Activity Frequency: Does not Exercise Seatbelt Use: sometimes Review of Systems Review of Systems: All systems reviewed & are unremarkable except as noted in HPI & below Physical Exam Constitutional: WD/WN, vitals as above Eyes: PERRL, conjunctivae normal, anicteric sclerae ENMT: external ear and nose normal, oropharynx normal Neck: normal visual inspection Respiratory: normal respiratory effort, lungs clear to auscultation Cardiovascular: RRR, no murmur, no edema Gastrointestinal (Abdomen): normal bowel sounds, soft, nontender, no hepatosplenomegaly Musculoskeletal: no cyanosis or clubbing, extremities motor strength 5/5 Skin: no rashes, warm and dry Psychiatric: A+Ox3, euthymic affect Results & Data ([facility]) Vital Signs (Past 12 Hours) Vital Signs Temp Pulse Pulse Resp BP BP Pulse Ox 10/06/19 12:04 37.0 C 66 18 134/81 96 10/06/19 07:50 36.8 C 71 18 134/71 95 10/06/19 07:43 74 10/06/19 05:37 70 135/67 94 Laboratory Results Microbiology 10/05/19 17:00 Pleural Fluid Gram Stain - Final 10/05/19 17:00 Pleural Fluid Aerobic and Anaerobic Culture - Preliminary No growth to date. 10/04/19 21:59 Blood Aerobic Blood Culture - Preliminary Group B Beta Strep 10/04/19 21:59 Blood Anaerobic Blood Culture - Preliminary No growth in Anaerobic bottle after 24 hours. 10/04/19 21:44 Blood Aerobic Blood Culture - Preliminary No growth in Aerobic bottle after 24 hours. 10/04/19 21:44 Blood Anaerobic Blood Culture - Preliminary Group B Beta Strep 10/05/19 17:00 Pleural Fluid Fungal Smear - Final PG Care Time/CCT Total # of Minutes Spent Total Time Spent with Patient: Total time spent is greater than 50% in coordination of care (as documented) at patient's floor/unit and/or counseling patient: Coding Level of Care Code 29169 Inpt Consult Level 4 Diagnoses Gram positive sepsis A41.89
--- NOTE | 2019-10-06 13:32 | Hospitalist Progress Note ---
Date of Service October 06, 2019 Assessment & Plan (1) Bacteremia: Blood cultures from 10/04 growing Group B Strep. Likely from her pneumonia. - Switch from vancomycin to ceftriaxone on 10/06 - MRSA nasal swab was negative on 10/05 - TTE on 10/05 without vegetation. - ID consulted - Appreciate recs. Hold TTE for now. (2) Pneumonia: CT chest on 10/04 indicated significant LLL pneumonia. - Abx as above - Thoracic surgery consulted - thoracentesis on 10/05 -> No indication of empyema. Likely due to her cirrhosis. (3) Liver cirrhosis: MAE cirrhosis. Now with volume overload due to have to adjust diuretics due to her prior HENRIQUE. Apparently working to get a GI doctor in [place]. MELD score of 14 on 10/05, giving her 6% 3-month mortality. - Restarted Lasix and spironolactone - Limited ultrasound on 10/05 did not see any drainable ascites (4) CHF (congestive heart failure): Carries this diagnosis, though I do not believe this is CHF. I think this is hepatic in nature. - Continue diuretics for liver disease as above (5) Pleural effusion: CT chest on 10/04 showed mild right and moderate left pleural effusions. - As above (6) Pancytopenia: Long-standing. Likely due to liver issues as well as anemia of chronic disease. - Seen by heme/onc on 10/05 -> No acute needs. B12 within normal limits (680), retic index is low (retic index 0.6, indicating hypoproliferation). Epo level unable to get inpatient from what I can find. - Monitor; transfuse for hgb < 7. (7) Chronic kidney disease, stage III (moderate): Baseline Cr ~1.6, eGFR ~34. - At baseline on admission. - Increased to 2.1 on 10/06 - Nephrology consulted - Apprecate recs -> Will still diurese as able. (8) DM type 2 (diabetes mellitus, type 2): A1c was 6.3% this admission, though with CKD, this is a less reliable marker. - Continue home Lantus - Sliding scale insulin - Glycemic pharmacist managing (9) Hypertension: BP is 135/80 today. - Continue home beta-maxwell, Lasix, and spironolactone - Monitor (10) Psoriatic arthritis: Nothing active at present time. - Monitor (11) Rheumatoid arthritis: Nothing active at present time. Left shoulder is painful, but I do not think it represents acute inflammation, but rather long-term issue. - Monitor - Improved today. (12) DVT prophylaxis: SCDs - Platelets < 50k, so will hold heparin for now. Admission and Anticipated Discharge Date Admission Date: October 04, 2019 Subjective Less shortness of breath today after thoracentesis yesterday. No cough. Reports no fevers/chills, chest pain, abdominal pain, nausea, or vomiting. Physical Exam Constitutional: WD/WN, vitals as above Eyes: EOM intact bilaterally; no conjunctival abnormality ENMT: external ear and nose normal, oropharynx normal Neck: trachea midline, no thyromegaly normal visual inspection Respiratory: normal respiratory effort, lungs clear to auscultation no respiratory distress Cardiovascular: RRR, no murmur, no edema Gastrointestinal (Abdomen): Inspection/Auscultation: abdomen normal to inspection; abdomen not distended Musculoskeletal: no cyanosis or clubbing, extremities motor strength 5/5 Skin: no rashes, warm and dry Neurologic: moves all extremities and awake Psychiatric: Orientation: alert, oriented to person and cooperative Results & Data ([facility]) Vital Signs (Past 12 Hours) Vital Signs Temp Pulse Pulse Resp BP BP Pulse Ox 10/06/19 12:04 37.0 C 66 18 134/81 96 10/06/19 07:50 36.8 C 71 18 134/71 95 10/06/19 07:43 74 10/06/19 05:37 70 135/67 94 PG Care Time/CCT Total # of Minutes Spent Total Time Spent with Patient: Total time spent is greater than 50% in coordination of care (as documented) at patient's floor/unit and/or counseling patient: Coding Level of Care Code 97513 Subseq Hosp Care Lvl 3 Diagnoses Bacteremia R78.81 Pneumonia J18.9 Laterality: bilateral Lung location: unspecified part of lung Pneumonia type: due to unspecified organism Liver cirrhosis K74.60 CHF (congestive heart failure) I50.9 Heart failure chronicity: unspecified Heart failure type: unspecified Pleural effusion J90 Pancytopenia D61.818 Chronic kidney disease, stage III (moderate) N18.3 DM type 2 (diabetes mellitus, type 2) E11.65 Diabetes mellitus complication status: with hyperglycemia Diabetes mellitus buttermaker continuous churn insulin use: without residential use Hypertension I10 Hypertension type: essential hypertension Psoriatic arthritis L40.50 Rheumatoid arthritis M06.9 Rheumatoid arthritis location: multiple sites Rheumatoid factor presence: unspecified presence DVT prophylaxis Z29.9 (1) Rheumatoid arthritis Rheumatoid arthritis location: multiple sites Rheumatoid factor presence: unspecified presence Qualified Code(s): M06.9 - Rheumatoid arthritis, unspecified (2) DM type 2 (diabetes mellitus, type 2) Diabetes mellitus complication status: with hyperglycemia Diabetes mellitus buttermaker continuous churn insulin use: without buttermaker continuous churn use Qualified Code(s): E11.65 - Type 2 diabetes mellitus with hyperglycemia (3) CHF (congestive heart failure) Heart failure chronicity: unspecified Heart failure type: unspecified Qualified Code(s): I50.9 - Heart failure, unspecified (4) Hypertension Hypertension type: essential hypertension Qualified Code(s): I10 - Essential (primary) hypertension (5) Pneumonia Laterality: bilateral Lung location: unspecified part of lung Pneumonia type: due to unspecified organism Qualified Code(s): J18.9 - Pneumonia, unspecified organism
[2019-10-06] MEDS: cefTRIAXone SODIUM 2,000 MG in DEXTROSE 5% 50 ML IV SCH (15:14)
[2019-10-06] MEDS: ROPINIROLE HCL 1 MG TABLET PO SCH (20:38)
[2019-10-07 07:28] LABS: Mean Corpuscular Hemoglobin 29.4 pg (25-34); Mean Corpuscular Hgb Conc 31.8 g/dL (32-36); Mean Corpuscular Volume 92.4 fL (80-100); Red Blood Count 2.38 M/uL (4.2-5.4); White Blood Count 3.23 K/uL (4.8-10.8)
[2019-10-07 07:35] LABS: Mean Platelet Volume 9.7 fL (7.4-10.4); Platelet Count 42 K/uL (130-400)
[2019-10-07 07:41] LABS: INR 1.4 (0.9-1.1); Prothrombin Time 13.7 Seconds (9.0-12.0)
[2019-10-07 08:00] LABS: Albumin Level 2.1 gm/dl (3.4-5.0); BUN Creatinine Ratio 26.5 (10-20); Calcium 8.5 mg/dl (8.5-10.1); Creatinine Clr Calc Pharmacy 25.6 ml/min; Est GFR (African American) 29.5; Est GFR (Non-African American) 25.5; Magnesium 1.9 mg/dl (1.8-2.4); Potassium 4.5 mmol/L (3.5-5.1)
[2019-10-07 08:02] LABS: Albumin Globulin Ratio 0.4 (0.9-2); Bilirubin,Total 0.8 mg/dl (0.2-1); Globulin 5.3 gm/dl (2.5-4.0); Phosphorus 3.8 mg/dl (2.5-4.9); Total Protein 7.4 gm/dl (6.4-8.2)
[2019-10-07] MEDS: FUROSEMIDE 40 MG in SYRINGE 0 ML IV SCH (08:33)
[2019-10-07] MEDS: RIFAXIMIN 550 MG TABLET PO SCH ×2 (08:34→20:33)
[2019-10-07] MEDS: SPIRONOLACTONE 25 MG TAB PO SCH (08:34)
[2019-10-07] MEDS: FERROUS SULFATE 325 MG TAB PO SCH (08:34)
[2019-10-07] MEDS: LACTULOSE SYRUP 20 GM/30 ML UDC PO SCH (08:34)
[2019-10-07] MEDS: carvediloL 25 MG TAB PO SCH ×2 (08:34→20:33)
[2019-10-07] MEDS: FOLIC ACID 1 MG TAB PO SCH ×2 (08:34→20:33)
[2019-10-07] MEDS: PANTOprazole 40 MG TAB PO SCH (08:34)
[2019-10-07] MEDS: INSULIN ASPART 100 UNITS/ML 3 ML PEN SC SCH ×4 (08:35→21:15)
[2019-10-07] MEDS: INSULIN GLARGINE SOLOSTAR 100 UNITS/ML 3 ML PEN SC SCH (08:38)
--- NOTE | 2019-10-07 09:42 | Pharmacy Report ---
Glycemic Control Progress Note - Date of Service October 07, 2019 - Scope Glycemic Pharmacist consulted for glycemic control to write orders per [facility] inpatient glycemic control protocol. - Objective Accuchecks BSG(last 24 hours):: 10/06/19 10/06/19 10/06/19 11:53 16:39 20:31 Glucose POC Glucose 168 H 145 H 183 H 10/07/19 10/07/19 07:13 07:13 Glucose 78 POC Glucose 85 HbA1c:: Hemoglobin A1c 6.3 % (4.5-5.6) H 10/05/19 06:52 - Recent Pertinent Medications The patient is currently receiving: * Basal insulin: Lantus 14 units every 24 hours * Correctional Insulin: Novolog Correction per scale ACHS Goal Range: Low 120 mg/dL - High 160 mg/dL Correction Factor: 30 mg/dL/unit * Prandial insulin: Per carb ratio of 1 unit per 10 grams CHO consumed - Outpatient Anti-Diabetic Meds Lantus 14 units daily - Assessment & Plan ASSESSMENT: * See progress note from 10/06/2019 for more background info, in short: * Pt receiving SQ basal bolus insulin regimen for hyperglycemia secondary to baseline DM (outpatient regimen on hold),stress/infection (bacteremia on Rocephin). * Patient is currently receiving an average of 28 units of insulin per day * 14 units of basal insulin * 14 units of prandial/correctional insulin * BSGs ranging 110 - 183 mg/dl over the past 24hrs * Changes needed to insulin regimen: * AM Fasting BSG = 85 mg/dl. This is below goal range for patient based on inpatient targets and co-morbidities. Yesterday Lantus 7 units was ordered for today with a hold if BSG below 100 mg/dL. Patient has been trending downwards on fasting BSGs since admission. Plan to hold Lantus today. If BSGs dramatically elevated later will order 7 units. * Post-prandial BSGs are elevated. Yesterday Novolog was tightened for lunch. It appears that CF is appropriate but CR is not. Tighten CR and decrease goal range. * Total daily dose = ~30 units. Patient may require more bolus than basal insulin. Monitor. PLAN FOR INPATIENT GLYCEMIC CONTROL: * Continuing Lantus 7 units SQ qAM (hold if BSG < 100 mg/dL) * Continuing correction factor of 30 mg/dl/unit * TIGHTENING carb ratio to 1 unit per 8 grams CHO consumed * Changing goal range to Low 110 mg/dL - High 140 mg/dL RECOMMENDATIONS FOR DISCHARGE: * Patient's HbA1C well controlled, consider continuing regimen as long as she does not have hypoglycemia. * Please note that the plan above was derived based on current level of insulin resistance and hospital stress. These recommendations are appropriate for inpatient admission only. Plan of care upon discharge will need to be reassessed to avoid potential outpatient hypo/hyperglycemia. Thank you.
[2019-10-07] MEDS ORDERED: VANCOMYCIN TROUGH ONE (10:30)
--- NOTE | 2019-10-07 10:40 | Nephrology Progress Note ---
Date of Service October 07, 2019 Assessment & Plan (1) Acute kidney injury: Angela was admitted on 10/04/2019 with progressive dyspnea over a month. On admission she was found to have bilateral pleural effusion and volume overload, had diagnostic thoracentesis and started on IV diuretics. Currently she is on Lasix 40 milligram IV daily as well as her home dose of spironolactone 50 milligram daily. Initially on admission her renal function was at baseline, ( CKD b/l cr 1.6-1.7 ), renal function slightly worsened to creatinine 2.1 this morning. She has been net positive and blood pressure has been stable. Has history of recurrent episode of acute kidney injury in the setting of high dose of diuretics for volume overload. Renal function relatively stable, electrolyte acceptable. Blood pressure well controlled. Volume status seems to have improved. --change Lasix to 40 mg orally once daily, continue on spironolactone 50 mg daily. --intake and output, aim for slightly net negative --monitor renal function and electrolytes closely while on diuretics Will follow (2) Pleural effusion: (3) SOB (shortness of breath): (4) Chronic kidney disease, stage III (moderate): (5) Hematuria: Subjective Angela was seen and examined this morning. She reports getting short of breath with minimum exertion however denies shortness of breath at rest. Overall she feels like making progress and feeling better LE edema improved. Has been participating with PT. Renal function stable, volume status acceptable, electrolyte acceptable. BP acceptable. Review of Systems Review of Systems: All systems reviewed & are unremarkable except as noted in HPI & below Physical Exam Constitutional: + ill appearing; no acute distress Neck: trachea midline, no thyromegaly Respiratory: Auscultation: + rales (at bases) Cardiovascular: RRR, no murmur, no edema Skin: no rashes, warm and dry Neurologic: no focal motor deficits and not confused Psychiatric: A+Ox3, euthymic affect Results & Data Vital Signs (Past 12 Hours) Vital Signs Temp Pulse Pulse Resp BP Pulse Ox 10/07/19 07:02 36.5 C 61 20 136/71 94 10/07/19 02:49 36.5 C 62 18 122/68 95 10/07/19 00:23 66 10/06/19 23:35 36.8 C 66 18 119/65 97 PG Care Time/CCT Total # of Minutes Spent Total Time Spent with Patient: Total time spent is greater than 50% in coordination of care (as documented) at patient's floor/unit and/or counseling patient: Coding Level of Care Code 26254 Subseq Hosp Care Lvl 3 Diagnoses Acute kidney injury N17.9 Pleural effusion J90 SOB (shortness of breath) R06.02 Chronic kidney disease, stage III (moderate) N18.3 Hematuria R31.9
[2019-10-07] MEDS ORDERED: EPOETIN ALFA 20,000 UNITS/ML VIAL SQ ONE (11:00)
--- NOTE | 2019-10-07 11:46 | Infectious Disease Progress Nt ---
Date of Service October 07, 2019 Assessment & Plan (1) Gram positive sepsis: continue rocephin for now, ? source - skin vs gi vs lung. will need 14 days abx, can change to omnicef 300mg po bid upon d/c. would hold gianluca for now and follow repeat cultures. Admission and Anticipated Discharge Date Admission Date: October 04, 2019 Subjective blood cultures growing GBS. afebrile. on rocephin. tolerating well. repeat cultures negative to date. abd ultrasound negative for fluid. Results & Data ([facility]) Vital Signs (Past 12 Hours) Vital Signs Temp Pulse Pulse Resp BP BP Pulse Ox 10/07/19 10:55 36.4 C L 60 22 118/74 97 10/07/19 07:02 36.5 C 61 20 136/71 94 10/07/19 02:49 36.5 C 62 18 122/68 95 10/07/19 00:23 66 Laboratory Results Microbiology 10/05/19 17:00 Pleural Fluid Acid Fast Bacilli Smear - Final 10/06/19 07:01 Blood Aerobic Blood Culture - Preliminary No growth in Aerobic bottle after 24 hours. 10/06/19 07:01 Blood Anaerobic Blood Culture - Preliminary No growth in Anaerobic bottle after 24 hours. 10/06/19 06:47 Blood Aerobic Blood Culture - Preliminary No growth in Aerobic bottle after 24 hours. 10/06/19 06:47 Blood Anaerobic Blood Culture - Preliminary No growth in Anaerobic bottle after 24 hours. 10/04/19 21:44 Blood Aerobic Blood Culture - Preliminary No growth in Aerobic bottle after 48 hours. 10/04/19 21:44 Blood Anaerobic Blood Culture - Preliminary Group B Beta Strep 10/04/19 21:59 Blood Aerobic Blood Culture - Preliminary Group B Beta Strep 10/04/19 21:59 Blood Anaerobic Blood Culture - Preliminary No growth in Anaerobic bottle after 48 hours. 10/05/19 17:00 Pleural Fluid Gram Stain - Final 10/05/19 17:00 Pleural Fluid Aerobic and Anaerobic Culture - Preliminary No growth to date. 10/05/19 17:00 Pleural Fluid Fungal Smear - Final PG Care Time/CCT Total # of Minutes Spent Total Time Spent with Patient: Total time spent is greater than 50% in coordination of care (as documented) at patient's floor/unit and/or counseling patient: Coding Level of Care Code 86973 Subseq Hosp Care Lvl 1 Diagnoses Gram positive sepsis A41.89
[2019-10-07] MEDS: cefTRIAXone SODIUM 2,000 MG in DEXTROSE 5% 50 ML IV SCH (14:42)
--- NOTE | 2019-10-07 14:53 | Hospitalist Progress Note ---
Date of Service October 07, 2019 Assessment & Plan (1) Bacteremia: Blood cultures from 10/04 growing Group B Strep. Likely from her pneumonia, though skin or GI possible as well. - Switch from vancomycin to ceftriaxone on 10/06 - MRSA nasal swab was negative on 10/05 - TTE on 10/05 without vegetation. - Repeat blood cultures from 10/06 are no growth to date. - ID consulted - Appreciate recs. Hold BETY for now. Can switch to Omnicef on discharge for a 2 week course. (2) Pneumonia: CT chest on 10/04 indicated significant LLL pneumonia. - Abx as above - Thoracic surgery consulted - thoracentesis on 10/05 -> No indication of empyema. Light's criteria negative, meaning transudative & likely due to her cirrhosis. (3) Liver cirrhosis: MAE cirrhosis. Now with volume overload due to have to adjust diuretics due to her prior HENRIQUE. Apparently working to get a GI doctor in [place]. MELD score of 14 on 10/05, giving her 6% 3-month mortality. - Restarted Lasix and spironolactone - Limited ultrasound on 10/05 did not see any drainable ascites (4) CHF (congestive heart failure): Carries this diagnosis probably due to episodes of volume overload, though I do not believe this is CHF. I do not think she even has CHF. I think this is hepatic in nature. - Continue diuretics for liver disease as above (5) Pleural effusion: CT chest on 10/04 showed mild right and moderate left pleural effusions. - Thoracentesis on 10/[address] Sheridan -> No indication of empyema. Light's criteria negative, meaning transudative & likely due to her cirrhosis. - As above (6) Pancytopenia: Long-standing. Likely due to liver issues as well as anemia of chronic disease. - Seen by heme/onc on 10/05 -> No acute needs. B12 within normal limits (680), retic index is low (retic index 0.6, indicating hypoproliferation). Epo level unable to get inpatient from what I can find. - Monitor; transfuse for hgb < 7. (7) Chronic kidney disease, stage III (moderate): Baseline Cr ~1.6, eGFR ~34. - At baseline on admission. - Increased to 2.1 on 10/06, then down to 2.0 on 10/07. - Nephrology consulted - Appreciate recs -> Will still diurese as able. Adjust diuretics today. (8) DM type 2 (diabetes mellitus, type 2): A1c was 6.3% this admission, though with CKD, this is a less reliable marker. - Continue home Lantus - Sliding scale insulin - Glycemic pharmacist managing (9) Hypertension: BP is 120/75 today. - Continue home beta-maxwell, Lasix, and spironolactone - Monitor (10) Psoriatic arthritis: Nothing active at present time. - Monitor (11) Rheumatoid arthritis: Nothing active at present time. Left shoulder is painful, but I do not t hink it represents acute inflammation, but rather long-term issue. - Monitor - Improved today. (12) DVT prophylaxis: SCDs - Platelets < 50k, so will hold heparin for now. Admission and Anticipated Discharge Date Admission Date: October 04, 2019 Subjective Doing better today. No major concerns overall. Breathing has improved. Reports no fevers/chills, chest pain, shortness of breath, abdominal pain, nausea, or vomiting. Physical Exam Constitutional: WD/WN, vitals as above Eyes: EOM intact bilaterally; no conjunctival abnormality ENMT: external ear and nose normal, oropharynx normal Neck: trachea midline, no thyromegaly normal visual inspection Respiratory: normal respiratory effort, lungs clear to auscultation no respiratory distress Cardiovascular: RRR, no murmur, no edema Gastrointestinal (Abdomen): Inspection/Auscultation: abdomen normal to inspection; abdomen not distended Musculoskeletal: no cyanosis or clubbing, extremities motor strength 5/5 Skin: no rashes, warm and dry Neurologic: moves all extremities and awake Psychiatric: Orientation: alert, oriented to person and cooperative Results & Data ([facility]) Vital Signs (Past 12 Hours) Vital Signs Temp Pulse Pulse Resp BP BP Pulse Ox 10/07/19 10:55 36.4 C L 60 22 118/74 97 10/07/19 08:10 64 10/07/19 07:02 36.5 C 61 20 136/71 94 PG Care Time/CCT Total # of Minutes Spent Total Time Spent with Patient: Total time spent is greater than 50% in coordination of care (as documented) at patient's floor/unit and/or counseling patient: Coding Level of Care Code 98544 Subseq Hosp Care Lvl 3 Diagnoses Bacteremia R78.81 Pneumonia J18.9 Laterality: bilateral Lung location: unspecified part of lung Pneumonia type: due to unspecified organism Liver cirrhosis K74.60 CHF (congestive heart failure) I50.9 Heart failure chronicity: unspecified Heart failure type: unspecified Pleural effusion J90 Pancytopenia D61.818 Chronic kidney disease, stage III (moderate) N18.3 DM type 2 (diabetes mellitus, type 2) E11.65 Diabetes mellitus longwall shearer operator insulin use: without mcc use Diabetes mellitus complication status: with hyperglycemia Hypertension I10 Hypertension type: essential hypertension Psoriatic arthritis L40.50 Rheumatoid arthritis M06.9 Rheumatoid arthritis location: multiple sites Rheumatoid factor presence: unspecified presence DVT prophylaxis Z29.9 (1) Pneumonia Laterality: bilateral Lung location: unspecified part of lung Pneumonia type: due to unspecified organism Qualified Code(s): J18.9 - Pneumonia, unspecified organism (2) CHF (congestive heart failure) Heart failure chronicity: unspecified Heart failure type: unspecified Qualified Code(s): I50.9 - Heart failure, unspecified (3) DM type 2 (diabetes mellitus, type 2) Diabetes mellitus longwall shearer operator insulin use: without mcc use Diabetes mellitus complication status: with hyperglycemia Qualified Code(s): E11.65 - Type 2 diabetes mellitus with hyperglycemia (4) Hypertension Hypertension type: essential hypertension Qualified Code(s): I10 - Essential (primary) hypertension (5) Rheumatoid arthritis Rheumatoid arthritis location: multiple sites Rheumatoid factor presence: unspecified presence Qualified Code(s): M06.9 - Rheumatoid arthritis, unspecified
[2019-10-07] MEDS: ROPINIROLE HCL 1 MG TABLET PO SCH (20:33)
[2019-10-08 00:15] LABS: Anti-dsDNA Recombinant 1 IU/mL; Complement C3 59 mg/dL (83-193)
--- NOTE | 2019-10-08 08:25 | XRay Report ---
XR chest 2V PA/lateral CLINICAL HISTORY: 64 years-old Female presenting with Pleural effusions from cirrhosis. TECHNIQUE: PA and lateral views of the chest were obtained. COMPARISON: 10/06/2019. FINDINGS: Atherosclerosis of the aortic arch. Cardiac silhouette enlarged. Focal opacity in the right paramedia stinal upper lung. Left basilar opacity. Small to moderate left pleural effusion increased from prior . Small right pleural effusion also noted. No pneumothorax. Right shoulder arthroplasty. Upper abdome n normal. IMPRESSION: 1. Persistent right suprahilar infiltrate. Pneumonia is the primary diagnostic concern. 2. Bilateral pleural effusions, left greater than right. 3. Left basilar atelectasis. 4. Cardiomegaly. ACT 112: Negative or not required by law. Electronically signed by: Marco Mac M.D. 10/08/2019 8:24 AM
[2019-10-08 08:53] LABS: Hematocrit (blood only) 24.1 % (37-47); Hemoglobin 7.7 g/dL (12.0-16.0); Mean Corpuscular Hemoglobin 29.5 pg (25-34); Mean Corpuscular Volume 92.3 fL (80-100); RDW Coefficient of Variation 17.9 % (11.5-14.5); RDW Standard Deviation 60.4 fL (36.4-46.3); Red Blood Count 2.61 M/uL (4.2-5.4); White Blood Count 3.28 K/uL (4.8-10.8)
[2019-10-08 09:02] LABS: INR 1.3 (0.9-1.1); Prothrombin Time 13.4 Seconds (9.0-12.0)
[2019-10-08 09:22] LABS: Platelet Count 45 K/uL (130-400)
--- NOTE | 2019-10-08 09:22 | Progress Note ---
DATE: 10/08/2019 Angela Sherman was discussed with Dr. Fernando Williamson today. This fluid was a transudate and may well be related to either heart failure, her renal insufficiency or her hepatic failure. At this point, I would not intervene in her chest. An indwelling pleural catheter drain continuously if this is due to her hepatic failure. At this point, given her relative lack of symptoms, I would treat her for a possible pneumonia and as you are doing. We will sign off. Please call us if needed.
[2019-10-08] MEDS: FOLIC ACID 1 MG TAB PO SCH ×2 (09:28→20:04)
[2019-10-08] MEDS: PANTOprazole 40 MG TAB PO SCH (09:28)
[2019-10-08] MEDS: INSULIN GLARGINE SOLOSTAR 100 UNITS/ML 3 ML PEN SC SCH (09:28)
[2019-10-08] MEDS: LACTULOSE SYRUP 20 GM/30 ML UDC PO SCH (09:28)
[2019-10-08] MEDS: carvediloL 25 MG TAB PO SCH ×2 (09:28→20:03)
[2019-10-08] MEDS: RIFAXIMIN 550 MG TABLET PO SCH ×2 (09:28→20:03)
[2019-10-08] MEDS: SPIRONOLACTONE 25 MG TAB PO SCH (09:28)
[2019-10-08] MEDS: FUROSEMIDE 40 MG TAB PO SCH (09:28)
[2019-10-08] MEDS: FERROUS SULFATE 325 MG TAB PO SCH (09:28)
[2019-10-08] MEDS: INSULIN ASPART 100 UNITS/ML 3 ML PEN SC SCH ×4 (09:30→20:14)
[2019-10-08 09:38] LABS: Albumin Level 2.3 gm/dl (3.4-5.0); BUN Creatinine Ratio 29.3 (10-20); Calcium 8.7 mg/dl (8.5-10.1); Creatinine Clr Calc Pharmacy 27.7 ml/min; Est GFR (African American) 32.6; Est GFR (Non-African American) 28.1; Potassium 4.7 mmol/L (3.5-5.1)
[2019-10-08 09:41] LABS: Albumin Globulin Ratio 0.4 (0.9-2); Bilirubin,Total 0.8 mg/dl (0.2-1); Globulin 5.9 gm/dl (2.5-4.0); Total Protein 8.2 gm/dl (6.4-8.2)
--- NOTE | 2019-10-08 10:17 | Nephrology Progress Note ---
Date of Service October 08, 2019 Assessment & Plan (1) Acute kidney injury: Angela was admitted on 10/04/2019 with progressive dyspnea over a month. On admission she was found to have bilateral pleural effusion and volume overload, had diagnostic thoracentesis and started on IV diuretics. Currently she is on Lasix 40 milligram IV daily as well as her home dose of spironolactone 50 milligram daily. Initially on admission her renal function was at baseline, ( CKD b/l cr 1.6-1.7 ), renal function slightly worsened to creatinine 2.1 this morning. She has been net positive and blood pressure has been stable. Has history of recurrent episode of acute kidney injury in the setting of high dose of diuretics for volume overload. Renal function relatively stable, electrolyte acceptable. Blood pressure well controlled. Volume status acceptable. --continue Lasix 40 mg orally once daily, continue on spironolactone 50 mg daily. --start on sodium bicarbonate 650 mg po daily --monitor renal function and electrolytes closely while in hospital --please schedule out pt follow up with Dr. Galeano on discharge. Pt should have lab done after discharge and prior to visit. Will follow (2) Pleural effusion: (3) SOB (shortness of breath): (4) Chronic kidney disease, stage III (moderate): (5) Hematuria: Subjective Angela was seen and examined this morning. She reports feeling really well today and denies shortness of breath. No fever, chills. LE edema improved. Has been participating with PT. Renal function stable, volume status acceptable, electrolyte acceptable. BP acceptable. Net slightly positive. Review of Systems Review of Systems: All systems reviewed & are unremarkable except as noted in HPI & below Physical Exam Constitutional: WD/WN, vitals as above no acute distress Respiratory: Auscultation: + rales (bilaterally at bases) Cardiovascular: RRR, no murmur, no edema Skin: no rashes, warm and dry Neurologic: awake; no focal motor deficits and not confused Psychiatric: A+Ox3, euthymic affect Results & Data Vital Signs (Past 12 Hours) Vital Signs Temp Pulse Pulse Resp BP Pulse Ox 10/08/19 08:02 36.6 C 103 H 18 145/77 H 93 10/08/19 04:07 36.6 C 66 18 130/71 93 02/20/20 02:20 72 10/07/19 22:36 36.7 C 74 18 139/69 94 PG Care Time/CCT Total # of Minutes Spent Total Time Spent with Patient: Total time spent is greater than 50% in coordination of care (as documented) at patient's floor/unit and/or counseling patient: Coding Level of Care Code 08960 Subseq Hosp Care Lvl 3 Diagnoses Acute kidney injury N17.9 Pleural effusion J90 SOB (shortness of breath) R06.02 Chronic kidney disease, stage III (moderate) N18.3 Hematuria R31.9
[2019-10-08] MEDS: SODIUM BICARBONATE 650 MG TAB PO SCH (11:36)
--- NOTE | 2019-10-08 12:00 | Hospitalist Progress Note ---
Date of Service October 08, 2019 Assessment & Plan (1) Bacteremia: Blood cultures from 10/04 growing Group B Strep. Likely from her pneumonia, though skin or GI possible as well. - Switch from vancomycin to ceftriaxone on 10/06 - MRSA nasal swab was negative on 10/05 - TTE on 10/05 without vegetation. - Repeat blood cultures from 10/06 are no growth to date. - ID consulted - Appreciate recs. Hold BETY for now. Can switch to Omnicef on discharge for a 2 week course. (2) Pneumonia: CT chest on 10/04 indicated significant LLL pneumonia. - Abx as above - Thoracic surgery consulted - thoracentesis on 10/05 -> No indication of empyema. Light's criteria negative, meaning transudative & likely due to her cirrhosis. (3) Liver cirrhosis: MAE cirrhosis. Now with volume overload due to have to adjust diuretics due to her prior HENRIQUE. Apparently working to get a GI doctor in [place]. MELD score of 14 on 10/05, giving her 6% 3-month mortality. - Restarted Lasix and spironolactone - Limited ultrasound on 10/05 did not see any drainable ascites (4) CHF (congestive heart failure): Carries this diagnosis probably due to episodes of volume overload, though I do not believe this episode is CHF. I do not think she even has CHF. I think this is hepatic in nature. - Continue diuretics for liver disease as above (5) Pleural effusion: CT chest on 10/04 showed mild right and moderate left pleural effusions. - Thoracentesis on 10/[address] Sheridan -> No indication of empyema. Light's criteria negative, meaning transudative & likely due to her cirrhosis. - As above (6) Pancytopenia: Long-standing. Likely due to liver & kidney issues as well as anemia of chronic disease. - Seen by heme/onc on 10/05 -> No acute needs. B12 within normal limits (680), retic index is low (retic index 0.6, indicating hypoproliferation). Epo level unable to get inpatient from what I can find. - Monitor; transfuse for hgb < 7. - Given Epogen on 10/07 -> Hgb went up to 7.7 on 10/08 (from 7.0 the prior day). (7) Chronic kidney disease, stage III (moderate): Baseline Cr ~1.6, eGFR ~34. - At baseline on admission. - Increased to 2.1 on 10/06, then down to 1.9 on 10/08. - Nephrology consulted - Appreciate recs -> Will still diurese as able. Adjusted diuretics on 10/07. (8) DM type 2 (diabetes mellitus, type 2): A1c was 6.3% this admission, though with CKD, this is a less reliable marker. - Continue home Lantus - Sliding scale insulin - Glycemic pharmacist managing (9) Hypertension: BP is 120/75 today. - Continue home beta-maxwell, Lasix, and spironolactone - Monitor (10) Psoriatic arthritis: Nothing active at present time. - Monitor (11) Rheumatoid arthritis: Nothing active at present time. Left shoulder is painful, but I do not think it represents acute inflammation, but rather long-term issue with prior hardware. - Monitor - Improved today. (12) DVT prophylaxis: SCDs - Platelets < 50k, so will hold heparin for now. Admission and Anticipated Discharge Date Admission Date: October 04, 2019 Subjective Feels better today. Less shortness of breath. Continues to have pain in the right shoulder. Reports no fevers/chills, chest pain, shortness of breath, abdominal pain, nausea, or vomiting. Physical Exam Constitutional: WD/WN, vitals as above Eyes: EOM intact bilaterally; no conjunctival abnormality ENMT: external ear and nose normal, oropharynx normal Neck: trachea midline, no thyromegaly normal visual inspection Respiratory: normal respiratory effort, lungs clear to auscultation no respiratory distress Cardiovascular: RRR, no murmur, no edema Gastrointestinal (Abdomen): Inspection/Auscultation: abdomen normal to inspection; abdomen not distended Musculoskeletal: no cyanosis or clubbing, extremities motor strength 5/5 Skin: no rashes, warm and dry Neurologic: moves all extremities and awake Psychiatric: Orientation: alert, oriented to person and cooperative Results & Data ([facility]) Vital Signs (Past 12 Hours) Vital Signs Temp Pulse Pulse Resp BP Pulse Ox 10/08/19 11:43 36.5 C 63 18 135/72 95 10/08/19 08:02 36.6 C 103 H 18 145/77 H 93 10/08/19 07:00 66 02/20/20 04:07 36.6 C 66 18 130/71 93 10/08/19 02:20 72 PG Care Time/CCT Total # of Minutes Spent Total Time Spent with Patient: Total time spent is greater than 50% in coordination of care (as documented) at patient's floor/unit and/or counseling patient: Coding Level of Care Code 71934 Subseq Hosp Care Lvl 3 Diagnoses Bacteremia R78.81 Pneumonia J18.9 Laterality: bilateral Lung location: unspecified part of lung Pneumonia type: due to unspecified organism Liver cirrhosis K74.60 CHF (congestive heart failure) I50.9 Heart failure chronicity: unspecified Heart failure type: unspecified Pleural effusion J90 Pancytopenia D61.818 Chronic kidney disease, stage III (moderate) N18.3 DM type 2 (diabetes mellitus, type 2) E11.65 Diabetes mellitus nursing home insulin use: without termite technician use Diabetes mellitus complication status: with hyperglycemia Hypertension I10 Hypertension type: essential hypertension Psoriatic arthritis L40.50 Rheumatoid arthritis M06.9 Rheumatoid arthritis location: multiple sites Rheumatoid factor presence: unspecified presence DVT prophylaxis Z29.9 (1) Pneumonia Laterality: bilateral Lung location: unspecified part of lung Pneumonia type: due to unspecified organism Qualified Code(s): J18.9 - Pneumonia, unspecified organism (2) CHF (congestive heart failure) Heart failure chronicity: unspecified Heart failure type: unspecified Qualified Code(s): I50.9 - Heart failure, unspecified (3) DM type 2 (diabetes mellitus, type 2) Diabetes mellitus termite technician insulin use: without nursing home use Diabetes mellitus complication status: with hyperglycemia Qualified Code(s): E11.65 - Type 2 diabetes mellitus with hyperglycemia (4) Hypertension Hypertension type: essential hypertension Qualified Code(s): I10 - Essential (primary) hypertension (5) Rheumatoid arthritis Rheumatoid arthritis location: multiple sites Rheumatoid factor presence: unspecified presence Qualified Code(s): M06.9 - Rheumatoid arthritis, unspecified
[2019-10-08] MEDS: cefTRIAXone SODIUM 2,000 MG in DEXTROSE 5% 50 ML IV SCH (13:26)
--- NOTE | 2019-10-08 14:24 | Pharmacy Report ---
Pharmacy Glycemic Short Note 2 - Date of Service October 08, 2019 - Glycemic Short BSG Results (Last 24 hours): 10/07/19 10/07/19 10/08/19 16:44 19:38 07:46 Glucose POC Glucose 142 H 128 H 151 H 10/08/19 10/08/19 08:27 11:25 Glucose 126 H POC Glucose 204 H OUTPATIENT ANTIDIABETIC REGIMEN: * Lantus 14 units daily ASSESSMENT: 10/08 * Patient is currently receiving an average of 22 units of insulin per day * 0-14 units of basal insulin * 22 units of prandial/correctional insulin * BSGs ranging 128-204 over the past 24hrs * Risk factors for insulin resistance are constant over the past 24hrs * BSGs slightly higher today, likely from basal dose being held yesterday and AM Novolog given @ 0930 this AM 10/07 * See progress note from 10/06/2019 for more background info, in short: * Pt receiving SQ basal bolus insulin regimen for hyperglycemia secondary to baseline DM (outpatient regimen on hold),stress/infection (bacteremia on Rocephin). * Patient is currently receiving an average of 28 units of insulin per day * 14 units of basal insulin * 14 units of prandial/correctional insulin * BSGs ranging 110 - 183 mg/dl over the past 24hrs * Changes needed to insulin regimen: * AM Fasting BSG = 85 mg/dl. This is below goal range for patient based on inpatient targets and co-morbidities. Yesterday Lantus 7 units was ordered for today with a hold if BSG below 100 mg/dL. Patient has been trending downwards on fasting BSGs since admission. Plan to hold Lantus today. If BSGs dramatically elevated later will order 7 units. * Post-prandial BSGs are elevated. Yesterday Novolog was tightened for lunch. It appears that CF is appropriate but CR is not. Tighten CR and decrease goal range. * Total daily dose = ~30 units. Patient may require more bolus than basal insulin. Monitor. PLAN FOR INPATIENT GLYCEMIC CONTROL: * Basal insulin - no change * Lantus qHS per the following scale: * 0 units for BSG < 100 * 7 units for BSG 100 or above * Bolus insulin - no change * NovoLog per scale ACHS or Q6hrs while NPO * Goal Range: Low 110 mg/dL - High 140 mg/dL * Correction Factor: 30 mg/dL/unit * Nutritional / Prandial insulin per carb ratio of 1 unit per 8 grams CHO consumed PLAN FOR DISCHARGE: * A1c = 6.3% on 10/05/19 * Goal A1c < 7% based on age/comorbidities * Continue outpatient regimen on discharge
--- NOTE | 2019-10-08 16:31 | Hematology/Oncology Prog Note ---
Date of Service October 08, 2019 Assessment & Plan (1) Pancytopenia: Ms. Sherman is pancytopenic and the etiology of her cytopenias is likely multifactorial. Her platelets and WBCs are almost certainly low due to her liver disease. Her counts are largely stable and do not require intervention at this time. Her anemia is likely multifactorial. She has CKD and that is likely contributing. Her liver disease is also likely playing a role. She has a very low transferrin, supporting a diagnosis of anemia of chronic disease. Her iron saturation and ferritin are both normal, which argues against iron deficiency. She is on a folate supplement. Her reticulocyte count favors a hypoproliferative anemia, which would go along with the above diagnoses. In light of her volume overload issues, I agree with the BARRY therapy. The increment in her hemoglobin may reflect a response or, more likely, may represent some improvement in her volume status. Regardless, I would continue with the Epo weekly. With regard to the lymph nodes, they have been present since at least July 2018 and have changed only minimally in that time. One of the axillary nodes was sampled last summer and revealed lymphoid hyperplasia without evidence of lymphoma or carcinoma. She has no symptoms to suggest a lymphoproliferative disorder. In light of the very modest manager change more than a year, at most she would likely have a very low-grade lymphoproliferative disease, if she has one at all. The significance of such a diagnosis, in light of her other significant health issues, is less clear. We can discuss this more as an outpatient. Subjective Ms. Sherman was sitting comfortably in bed today. She was a bit short of breath, though she thought this was because she had just repositioned. Overall, she feels much improved after her thoracentesis a few days ago. She was given some Epo yesterday and her hemoglobin is already up a touch. She denies any gross bleeding anywhere. Overall, her energy is up a little. She has no headaches, dizziness, chest pain, or other acute complaints. Review of Systems Review of Systems: All systems reviewed & are unremarkable except as noted in HPI & below Physical Exam Constitutional: + ill appearing (chronically) and + thin; no acute distress Eyes: + anicteric sclerae and EOM intact bilaterally ENMT: external ear and nose normal, oropharynx normal Mouth: + edentulous Respiratory: + labored breathing (very modest) Auscultation: lungs clear to auscultation bilaterally Cardiovascular: Rate/Rhythm: regular rate and regular rhythm Extremities: + edema (1+ bilateral pitting edema in her ankles) Gastrointestinal (Abdomen): Inspection/Auscultation: normal bowel sounds; abdomen not distended Percussion/Palpation: abdomen soft; abdomen nontender Psychiatric: A+Ox3, euthymic affect Lymphatic: no cervical or axillary lymphadenopathy Results & Data Vital Signs (Past 12 Hours) Vital Signs Temp Pulse Pulse Pulse Resp BP Pulse Ox 10/08/19 15:22 36.7 C 58 L 18 126/67 98 10/08/19 11:43 36.5 C 63 18 135/72 95 10/08/19 08:02 36.6 C 103 H 18 145/77 H 93 10/08/19 07:00 66 Laboratory Results Abnormal lab results 10/06/19 10/07/19 10/07/19 Range/Units 11:05 16:44 19:38 WBC (4.8-10.8) K/uL RBC (4.2-5.4) M/uL Hgb (12.0-16.0) g/dL Hct (37-47) % RDW Std Deviation (36.4-46.3) fL RDW Coeff of Karina (11.5-14.5) % Plt Count (130-400) K/uL PT (9.0-12.0) Seconds INR (0.9-1.1) Chloride (98-107) mmol/L Carbon Dioxide (21-32) mmol/L BUN (7-18) mg/dl Creatinine (0.6-1.2) mg/dl BUN/Creatinine Ratio (10-20) Glucose (70-99) mg/dl POC Glucose 142 H 128 H (70-99) mg/dl Alkaline Phosphatase (45-117) U/L Albumin (3.4-5.0) gm/dl Globulin (2.5-4.0) gm/dl Albumin/Globulin Ratio (0.9-2) Complement C3 59 L (83-193) mg/dL Complement C4 10 L (15-57) mg/dL 10/08/19 10/08/19 10/08/19 Range/Units 07:46 08:27 08:27 WBC 3.28 L (4.8-10.8) K/uL RBC 2.61 L (4.2-5.4) M/uL Hgb 7.7 L (12.0-16.0) g/dL Hct 24.1 L (37-47) % RDW Std Deviation 60.4 H (36.4-46.3) fL RDW Coeff of Karina 17.9 H (11.5-14.5) % Plt Count 45 L (130-400) K/uL PT 13.4 H (9.0-12.0) Seconds INR 1.3 H (0.9-1.1) Chloride (98-107) mmol/L Carbon Dioxide (21-32) mmol/L BUN (7-18) mg/dl Creatinine (0.6-1.2) mg/dl BUN/Creatinine Ratio (10-20) Glucose (70-99) mg/dl POC Glucose 151 H (70-99) mg/dl Alkaline Phosphatase (45-117) U/L Albumin (3.4-5.0) gm/dl Globulin (2.5-4.0) gm/dl Albumin/Globulin Ratio (0.9-2) Complement C3 (83-193) mg/dL Complement C4 (15-57) mg/dL 10/08/19 10/08/19 Range/Units 08:27 11:25 WBC (4.8-10.8) K/uL RBC (4.2-5.4) M/uL Hgb (12.0-16.0) g/dL Hct (37-47) % RDW Std Deviation (36.4-46.3) fL RDW Coeff of Karina (11.5-14.5) % Plt Count (130-400) K/uL PT (9.0-12.0) Seconds INR (0.9-1.1) Chloride 116 H (98-107) mmol/L Carbon Dioxide 18 L (21-32) mmol/L BUN 55 H (7-18) mg/dl Creatinine 1.87 H (0.6-1.2) mg/dl BUN/Creatinine Ratio 29.3 H (10-20) Glucose 126 H (70-99) mg/dl POC Glucose 204 H (70-99) mg/dl Alkaline Phosphatase 156 H (45-117) U/L Albumin 2.3 L (3.4-5.0) gm/dl Globulin 5.9 H (2.5-4.0) gm/dl Albumin/Globulin Ratio 0.4 L (0.9-2) Complement C3 (83-193) mg/dL Complement C4 (15-57) mg/dL
[2019-10-08] MEDS: ROPINIROLE HCL 1 MG TABLET PO SCH (20:04)
[2019-10-09 06:56] LABS: Hematocrit (blood only) 22.7 % (37-47); Hemoglobin 7.3 g/dL (12.0-16.0); Mean Corpuscular Hemoglobin 29.7 pg (25-34); Mean Corpuscular Hgb Conc 32.2 g/dL (32-36); Mean Corpuscular Volume 92.3 fL (80-100); RDW Standard Deviation 60.4 fL (36.4-46.3); Red Blood Count 2.46 M/uL (4.2-5.4); White Blood Count 3.19 K/uL (4.8-10.8)
[2019-10-09 07:08] LABS: Mean Platelet Volume 9.5 fL (7.4-10.4); Platelet Count 46 K/uL (130-400)
[2019-10-09 07:30] LABS: Albumin Level 2.1 gm/dl (3.4-5.0); BUN Creatinine Ratio 31.6 (10-20); Calcium 8.2 mg/dl (8.5-10.1); Creatinine Clr Calc Pharmacy 28.6 ml/min; Est GFR (African American) 33.9; Est GFR (Non-African American) 29.2
[2019-10-09] MEDS: PANTOprazole 40 MG TAB PO SCH (08:07)
[2019-10-09] MEDS: SODIUM BICARBONATE 650 MG TAB PO SCH (08:08)
[2019-10-09] MEDS: RIFAXIMIN 550 MG TABLET PO SCH (08:08)
[2019-10-09] MEDS: FOLIC ACID 1 MG TAB PO SCH (08:08)
[2019-10-09] MEDS: SPIRONOLACTONE 25 MG TAB PO SCH (08:08)
[2019-10-09] MEDS: carvediloL 25 MG TAB PO SCH (08:08)
[2019-10-09] MEDS: FUROSEMIDE 40 MG TAB PO SCH (08:08)
[2019-10-09] MEDS: FERROUS SULFATE 325 MG TAB PO SCH (08:08)
[2019-10-09] MEDS: INSULIN GLARGINE SOLOSTAR 100 UNITS/ML 3 ML PEN SC SCH (08:10)
[2019-10-09] MEDS: INSULIN ASPART 100 UNITS/ML 3 ML PEN SC SCH ×2 (08:11→13:10)
[2019-10-09] MEDS: LACTULOSE SYRUP 20 GM/30 ML UDC PO SCH (08:13)
--- NOTE | 2019-10-09 08:14 | Pharmacy Report ---
Pharmacy Glycemic Short Note 2 - Date of Service October 09, 2019 - Glycemic Short BSG Results (Last 24 hours): 10/08/19 10/08/19 10/08/19 08:27 11:25 16:18 Glucose 126 H POC Glucose 204 H 73 10/08/19 10/09/19 10/09/19 20:01 02:16 06:43 Glucose 143 H POC Glucose 79 106 H 10/09/19 07:49 Glucose POC Glucose 92 OUTPATIENT ANTIDIABETIC REGIMEN: * Lantus 14 units daily ASSESSMENT: 10/09 * Patient is currently receiving an average of 33 units of insulin per day * 7 units of basal insulin * 26 units of prandial/correctional insulin * BSGs ranging 73-204 over the past 24hrs * Risk factors for insulin resistance are constant over the past 24hrs * Anticipating insulin regimen will need decreased for the next 24hrs d/t : * AM Fasting BSG = 92 -> will adjust scale so patient receives 30% less than yesterday * BSGs trending downwards throughout the day (insulin stacking) therefore Loosen CR * BSG was higher again at lunch today (Novolog given at appropriate time) but will wait to make adjustments until a trend is seen 10/08 * Patient is currently receiving an average of 22 units of insulin per day * 0-14 units of basal insulin * 22 units of prandial/correctional insulin * BSGs ranging 128-204 over the past 24hrs * Risk factors for insulin resistance are constant over the past 24hrs * BSGs slightly higher today, likely from basal dose being held yesterday and AM Novolog given @ 0930 this AM 10/07 * See progress note from 10/06/2019 for more background info, in short: * Pt receiving SQ basal bolus insulin regimen for hyperglycemia secondary to baseline DM (outpatient regimen on hold),stress/infection (bacteremia on Rocephin). * Patient is currently receiving an average of 28 units of insulin per day * 14 units of basal insulin * 14 units of prandial/correctional insulin * BSGs ranging 110 - 183 mg/dl over the past 24hrs * Changes needed to insulin regimen: * AM Fasting BSG = 85 mg/dl. This is below goal range for patient based on inpatient targets and co-morbidities. Yesterday Lantus 7 units was ordered for today with a hold if BSG below 100 mg/dL. Patient has been trending downwards on fasting BSGs since admission. Plan to hold Lantus today. If BSGs dramatically elevated later will order 7 units. * Post-prandial BSGs are elevated. Yesterday Novolog was tightened for lunch. It appears that CF is appropriate but CR is not. Tighten CR and decrease goal range. * Total daily dose = ~30 units. Patient may require more bolus than basal insulin. Monitor. PLAN FOR INPATIENT GLYCEMIC CONTROL: * Basal insulin - adjust lower dose in scale to prevent basal being held altogether * Lantus qHS per the following scale: * 5 units for BSG < 100 * 7 units for BSG 100 or above * Bolus insulin - loosen CR * NovoLog per scale ACHS or Q6hrs while NPO * Goal Range: Low 110 mg/dL - High 140 mg/dL * Correction Factor: 30 mg/dL/unit * Nutritional / Prandial insulin per carb ratio of 1 unit per 10 grams CHO consumed PLAN FOR DISCHARGE: * A1c = 6.3% on 10/05/19 * Goal A1c < 7% based on age/comorbidities * Continue outpatient regimen on discharge
--- NOTE | 2019-10-09 10:26 | Nephrology Progress Note ---
Date of Service October 09, 2019 Assessment & Plan (1) Acute kidney injury: Angela was admitted on 10/04/2019 with progressive dyspnea over a month. On admission she was found to have bilateral pleural effusion and volume overload, had diagnostic thoracentesis and started on IV diuretics. Currently she is on Lasix 40 milligram IV daily as well as her home dose of spironolactone 50 milligram daily. Initially on admission her renal function was at baseline, ( CKD b/l cr 1.6-1.7 ), renal function slightly worsened to creatinine 2.1 this morning. She has been net positive and blood pressure has been stable. Has history of recurrent episode of acute kidney injury in the setting of high dose of diuretics for volume overload. On Rocephin fort Group B strep bacteremia, repeat culture negative. Renal function relatively stable, electrolyte acceptable. Blood pressure well controlled. Volume status acceptable. --continue Lasix 40 mg orally once daily, continue on spironolactone 50 mg daily. --continue on sodium bicarbonate 650 mg po daily --monitor renal function and electrolytes closely while in hospital --please schedule out pt follow up with Dr. Galeano on discharge. Pt should have lab done after discharge and prior to visit. Will follow (2) Pleural effusion: (3) SOB (shortness of breath): (4) Chronic kidney disease, stage III (moderate): (5) Hematuria: Subjective Angela was seen and examined this morning. She reports feeling really well and denies shortness of breath with activity. No fever, chills. LE edema improved. Renal function stable, volume status acceptable, electrolyte acceptable. BP acceptable. Net slightly positive. Physical Exam Constitutional: WD/WN, vitals as above well developed, well nourished and + ill appearing; no acute distress Neck: trachea midline, no thyromegaly trachea midline Respiratory: normal respiratory effort and + respiratory distress (Mild respiratory distress while talking.); no cough Auscultation: + crackles and + rales (bilaterally at bases); no wheezes Cardiovascular: RRR, no murmur, no edema Skin: no rashes, warm and dry Neurologic: moves all extremities and awake; no focal motor deficits and not confused Psychiatric: A+Ox3, euthymic affect Results & Data Vital Signs (Past 12 Hours) Vital Signs Temp Pulse Pulse Resp BP BP Pulse Ox 10/09/19 08:04 36.7 C 62 20 152/55 H 95 10/09/19 04:00 37 C 67 20 137/80 98 10/08/19 22:57 36.6 C 72 20 165/74 H 93 PG Care Time/CCT Total # of Minutes Spent Total Time Spent with Patient: Total time spent is greater than 50% in coordination of care (as documented) at patient's floor/unit and/or counseling patient: Coding Level of Care Code 52754 Subseq Hosp Care Lvl 3 Diagnoses Acute kidney injury N17.9 Pleural effusion J90 SOB (shortness of breath) R06.02 Chronic kidney disease, stage III (moderate) N18.3 Hematuria R31.9
--- NOTE | 2019-10-09 15:58 | Discharge Summary ---
Date of Service October 09, 2019 Admission HPI Per Admitting Provider Angela is a 64-year-old female with a past medical history of CHF, AIMEE, Fowler, hypertension, depression/anxiety, pulmonary hypertension, diabetes mellitus, CKD 3, and pancytopenia who presents with 1 month of worsening swelling in both her legs progressive increase in dyspnea. Reports she for started to notice increased shortness of breath and swelling in her legs about 1 month ago when she stopped her Lasix due to HENRIQUE. She progressively had increasing swelling in her feet, and steadily increasing shortness of breath. She has not had any syncope, presyncope, chest pain, chest pressure, or palpitations. She occasionally has a nonproductive cough, but denies other cold-like symptoms. She is not had fevers, chills, or night sweats although reports she is "always cold ". Denies diarrhea/constipation/abdominal pain. She notices that her swelling has also included her abdomen. She reports that she did not take any Lasix for about 4 weeks prior to admission, but had just restarted p.o. Lasix 20 mg in the morning 2 days ago and thinks she took 1 or 2 doses. She has not had any dietary changes, dietary indiscretions, or increased salt intake. Her shortness of breath is worsened by laying flat. She chronically wears 2 L of oxygen at night. She reports that she has been told that she has sleep apnea, but does not use a CPAP at home. She was seen as an outpatient last week and was told that she had a small amount of fluid around her lung, she is scheduled to see Dr. Sheridan next week for potential thoracentesis. Medical history: Reviewed Surgical history: Reviewed Allergies: Sulfa, tape. Altered mental status reaction to amlodipine. Medications: Reviewed, patient provided med list Social: She lives in [place] with her , feels safe at home, is able to ambulate at home normally. No alcohol use. Endorses former tobacco use 20 years ago, had approximately a 10-year 2 pack/day history. Denies recreational drug use. CODE STATUS: Full code. She notes that her would be her decision maker, and he is the one that would know if any medical treatments had gone/would go beyond her wishes. Principal Diagnosis Volume overload from hepatic failure Group B Strep bacteremia Discharge Exam Constitutional WD/WN, vitals as above Eyes EOM intact bilaterally; no conjunctival abnormality ENMT external ear and nose normal, oropharynx normal Neck trachea midline, no thyromegaly normal visual inspection Respiratory normal respiratory effort, lungs clear to auscultation no respiratory distress Cardiovascular RRR, no murmur, no edema Gastrointestinal (Abdomen) Inspection/Auscultation: abdomen normal to inspection; abdomen not distended Musculoskeletal no cyanosis or clubbing, extremities motor strength 5/5 Skin no rashes, warm and dry Neurologic moves all extremities and awake Psychiatric Orientation: alert, oriented to person and cooperative Discharge Data Allergies Allergy/AdvReac Type Severity Reaction Status Date / Time Sulfa (Sulfonamide Allergy Mild Rash Verified 10/04/19 19:55 Antibiotics) sulfamethoxazole Allergy Mild RASH Verified 10/04/19 19:55 trimethoprim Allergy Mild RASH Verified 10/04/19 19:55 Bactrim Allergy Unknown RASH Verified 08/17/14 08:01 amlodipine AdvReac Intermediate confusion Verified 10/04/19 19:55 adhesive tape AdvReac Mild ITCHING Verified 10/04/19 19:55 Consultations 10/04/19 21:39 ED Decision to Admit Stat 10/05/19 01:17 Consult Hematology Routine 10/05/19 16:04 Consult Infectious Diseases Routine Consult Nephrology Routine Consult Thoracic Surgery Routine Ordered Studies 10/04/19 20:55 CT chest wo con Stat 10/06/19 16:04 US abdomen limited Routine Hospital Course (1) Bacteremia: Blood cultures from 10/04 growing Group B Strep. Likely from her pneumonia, though skin or GI possible as well. - Switch from vancomycin to ceftriaxone on 10/06 - MRSA nasal swab was negative on 10/05 - TTE on 10/05 without vegetation. - Repeat blood cultures from 10/06 are no growth to date. - ID consulted - Appreciate recs. Hold BETY for now. Switch to Omnicef 300 mg PO BID on discharge for a 2 week course. Discharged on 10 additional days. (2) Pneumonia: CT chest on 10/04 indicated significant LLL pneumonia. - Abx as above - Thoracic surgery consulted - thoracentesis on 10/05 -> No indication of empyema. Light's criteria negative, meaning transudative & likely due to her cirrhosis. (3) Liver cirrhosis: FOWLER cirrhosis. Now with volume overload due to have to adjust diuretics due to her prior HENRIQUE. Apparently working to get a GI doctor in [place]. MELD score of 14 on 10/05, giving her 6% 3-month mortality. - Restarted Lasix and spironolactone - Limited ultrasound on 10/05 did not see any drainable ascites - Discharged on Lasix 40 mg PO daily and spironolactone 50 mg PO daily. This seemed to be keeping her volume even, though her repeat CXR on 10/08 indicated possible slight recurrence of her pleural effusions. (4) CHF (congestive heart failure): Carries this diagnosis probably due to episodes of volume overload, though I do not believe this episode is CHF. I do not think she even has CHF. I think this is hepatic in nature. - Continue diuretics for liver disease as above (5) Pleural effusion: CT chest on 10/04 showed mild right and moderate left pleural effusions. - Thoracentesis on 10/[address] Sheridan -> No indication of empyema. Light's criteria negative, meaning transudative & likely due to her cirrhosis. - Repeat CXR on 10/08 indicated possible slight recurrence of her pleural effusions, but breathing was improved. Discussed with Dr. Sheridan. No course for repeat thoracenteses or PleurX. (6) Pancytopenia: Long-standing. Likely due to liver & kidney issues as well as anemia of chronic disease. - Seen by heme/onc on 10/05 -> No acute needs. B12 within normal limits (680), retic index is low (retic index 0.6, indicating hypoproliferation). Epo level unable to get inpatient from what I can find. - Monitor; transfuse for hgb < 7. - Given Epogen on 10/07 -> Hgb went up to 7.7 on 10/08 (from 7.0 the prior day). Down to 7.3 on discharge, but no signs of bleeding. Will follow up with Dr. Hylton in the clinic. (7) Chronic kidney disease, stage III (moderate): Baseline Cr ~1.6, eGFR ~34. - At baseline on admission. - Increased to 2.1 on 10/06, then down to 1.8 on 10/09. Will need to follow nephrology on discharge. (8) DM type 2 (diabetes mellitus, type 2): A1c was 6.3% this admission, though with CKD, this is a less reliable marker. - Continue home Lantus - Sliding scale insulin - Mildly lowered Lantus on discharge. Can titrate with help of PCP. (9) Hypertension: BP is 150/75 today. - Continue home beta-maxwell, Lasix, and spironolactone - Monitor (10) Psoriatic arthritis: Nothing active at present time. - Monitor (11) Rheumatoid arthritis: Nothing active at present time. Left shoulder is painful, but I do not think it represents acute inflammation, but rather long-term issue with prior hardware. - Monitor - Improved today. (12) DVT prophylaxis: SCDs - Platelets < 50k, so will hold heparin for now. Total Time Total Time Spent Total Time Spent (In Minutes): 30 Discharge Plan Discharge Items Patient Disposition: Home - Home Health Services Reason For Visit: Liver dysfunction Discharge Diagnosis: Fluid in lung from liver issues Bacteria in the blood Activity: Resume your previous activity Non-emergency contact: Primary Care Provider, Examining Chair Assembler and Cane Piler Call non-emergency contact if: your symptoms worsen and your temperature is above 101 Follow-up/Referrals: Rocío Alonso DO [Primary Care Provider] - 10/14/19 9:20 am Phil Galeano DO [Physician] - (Please see Dr. Galeano in 2-3 weeks. The office will call you to set this up.) Cruz Hylton [Physician] - (Please see Dr. Hylton in 1 month.) Diet: Heart Healthy and Low Sodium (2gm) Addtl Attending Provider Instructions: Ms. Sherman, You were admitted to the hospital with shortness of breath that was due to fluid on the lungs. This is due to your liver disease. We re-increased your fluid me dications and Dr. Sheridan also drained some fluid from the left side of the lungs. Over the course of a few days, you have been feeling better. This is great news! I would strongly encourage you to follow up with [facility] GI doctors because the liver is the root of your issues, and I believe that getting a transplant evaluation will be good in the long run. I do not feel you need a tra nsplant at this time, but certainly connecting with a liver doctor at [place] will benefit you in the long run. We also treated you for a pneumonia and bacteria in the blood. We are sending you out with 10 more days of antibiotics. Take the first dose tomorrow (Saturday, October 10) evening with your evening meal. Please see Dr. Alonso next week to be sure you're doing well. She may have you get some blood work to be sure your red blood cells are staying stable. They were slightly low this admission, but bounced back up with some Epogen that the nephrology doctor gave you. Lastly, I did lower your long-acting insulin to 10 units per day. This is sometime to be tracked at home. In the hospital, people often eat less, so your sugars were good with a lower dose. At home, you may eat more and may need more insulin. Pending Studies at Discharge: No Stand-Alone Forms: My [facility] [employer], Smoking Cessation Medications and DC Order Prescriptions: New sodium bicarbonate 650 mg Tablet 650 mg PO DAILY Qty: 30 RF: 0 cefdinir 300 mg capsule 300 mg PO BID 10 Days Qty: 20 RF: 0 furosemide 40 mg tablet 40 mg PO DAILY Qty: 30 RF: 0 Continued (DME) adhesive bandage bandage See Dose Instructions .ROUTE .MEDSUPPLY Qty: 20 RF: 5 peg 3350-electrolytes [Golytely] [id number] -5.86 gram recon soln 240 ml PO .COMPLEX Qty: 4000 RF: 0 ferrous sulfate 325 mg (65 mg iron) tablet 325 mg PO QAM RF: 0 Hold Instructions: Home Medication placed on hold at Doctor's office (DME) [facility] See Dose Instructions .ROUTE .MEDSUPPLY Qty: 1 RF: 0 spironolactone 50 mg tablet 50 mg PO QAM Qty: 90 RF: 3 pantoprazole 40 mg tablet,delayed release (DR/EC) 40 mg PO QAM Qty: 30 RF: 2 (DME) Hospital Bed Misc See Rx Instructions .ROUTE .MEDSUPPLY Qty: 1 RF: 0 Xifaxan 550 mg tablet 550 mg PO BID Qty: 60 RF: 2 ropinirole 2 mg tablet 2 mg PO HS Qty: 30 RF: 5 folic acid 1 mg tablet 1 mg PO BID Qty: 60 RF: 0 carvedilol 25 mg Tablet 25 mg PO BID Qty: 60 RF: 0 fluticasone propionate 50 mcg/actuation spray,suspension 2 sprays INTNAS DAILY PRN (Reason: Allergy Symptoms) RF: 0 lactulose 20 gram/30 mL solution 30 ml PO QAM RF: 0 acetaminophen [Tylenol Extra Strength] 500 mg Tablet 500 mg PO Q6H PRN (Reason: Pain) RF: 0 Changed Basaglar KwikPen U-100 Insulin 100 unit/mL (3 mL) insulin pen 10 units subcut QAM Qty: 0 RF: 0 Discharge Orders: Discharge Order (Routine); Ordered 10/09/19 Ordered By: Fernando Williamson Admission Data Admit Date/Time: 10/04/19 23:27 Attending Provider: Fernando Williamson Admit Provider: Marco Borrego Primary Care Provider: Rocío Alonos Other Providers: Cruz Hylton ; Fernando Williamson ; Lorena Pressley ; Holley Alonso ; Catarino Sherdian Other Interventions: Discharge Summary Assessment (RN) Last Done: 10/09/19 13:04 DC Date/Time DO NOT enter until pt leaves facility: 10/09/19 14:00 Coding Level of Care Code D/C Day Management >30 mins Diagnoses Bacteremia R78.81 Pneumonia J18.9 Laterality: bilateral Lung location: unspecified part of lung Pneumonia type: due to unspecified organism Liver cirrhosis K74.60 CHF (congestive heart failure) I50.9 Heart failure chronicity: unspecified Heart failure type: unspecified Pleural effusion J90 Pancytopenia D61.818 Chronic kidney disease, stage III (moderate) N18.3 DM type 2 (diabetes mellitus, type 2) E11.65 Diabetes mellitus adjunct faculty for medical terminology insulin use: without adjunct faculty for medical terminology use Diabetes mellitus complication status: with hyperglycemia Hypertension I10 Hypertension type: essential hypertension Psoriatic arthritis L40.50 Rheumatoid arthritis M06.9 Rheumatoid arthritis location: multiple sites Rheumatoid factor presence: unspecified presence DVT prophylaxis Z29.9
== END 2019-10-09 14:00 | disposition home health service (06) | DRG 194 ==
LOC: ED 19:03 → SUATTDRO 23:27 → 2N 23:27

== ENCOUNTER 2020-03-20 09:54 | Inpatient (IN) ==
[2020-03-20] MEDS ORDERED: PROCHLORPERAZINE 2 ML IV ONE (10:25)
[2020-03-20] MEDS ORDERED: FAMOTIDINE 20MG/5ML IV PUSH IV STA (10:25)
[2020-03-20] MEDS ORDERED: SODIUM CHLORIDE 0.9% 500 ML IV ONE ×2 (10:26→11:37)
--- NOTE | 2020-03-20 10:33 | Emergency Department Note ---
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 Patient reports she had a ultrasound done on to evaluate her cirrhosis. She follows with [facility]. She denies any fevers, chills, cough, congestion, urinary symptoms. On arrival the patient is uncomfortable appearing but no acute distress, afebrile stable vital signs. Abdomen is soft and nontender. She has subtle asterixis of bilateral upper extremities. Rectal exam was performed and the patient does have black stool which she reports is her baseline though there is subtle red blood that stains her sheet. There is no gross hematochezia. Stool is Hemoccult positive. EKG without overt acute ischemia. CXR negative for acute cardiopulmonary process. Note is made of proximal humerus fracture, which is of unclear chronicity as patient reports having pain and limited ROM since removal of her prior TSA in November. WBC 2.8, nonspecific and similar to prior injury values. H/H 6.0/18.4 which is new from baseline and our system of 7.5-9. Platelets 50 K similar to prior range of values. INR is 1.2. Chemistry with non-anion gap metabolic acidosis with bicarb of 15. Sodium is 147, potassium 5.7, phosphorus 5.1 and magnesium 2.6 which are consistent with the patient's clinically dry appearance. Creatinine is 2.6 approximate 2 but on the higher end of patient's prior range of values. BUN is elevated at 85 consistent with suspicion for upper GI bleed. FTs are unremarkable. Ammonia is elevated at 208 which is high for the patient but she is mentating and is alert and oriented. CT on pelvis demonstrates evidence of the patient cirrhosis with portal hypertension with splenomegaly and varices. Dieter castellanos was consented for blood and typed and crossed for 3 units of PRBCs with order to administer 2 units of PRBCs. She is additionally ordered for octreotide bolus and drip and Protonix bolus and drip. I did discuss the case with Dr. De La Fuente, [facility] on-call. Agrees with resuscitation thus far. Recommends avoiding over-transfusion to prevent increased portal pressures, otherwise as indicated for becoming clinically unstable or unresponsive to transfusion. Patient should be n.p.o. and given the patient is hemodynamically stable with treatment in progress the plan will be to scope the patient tomorrow morning unless there are any changes where the patient is having continued/increasing bleeding or becomes unstable or unresponsive to transfusions. Case was discussed with Dr. Mejia, [facility] hospitalist who will evaluated the patient for admission. Triage Nursing notes reviewed and agree them. Prior medical records reviewed Vital Signs: reviewed and remarkable for no significant abnormalities Differential diagnosis: Diverticulosis, AVM, coagulopathy, colitis, inflammatory bowel disease, malignancy, Jasmin-Fairchild tear, esophagitis, peptic ulcer disease, variceal bleed, gastritis, epistaxis, fissure, hemorrhoids, as well as other pathologies. ER treatment provided: See below. Diagnostics interpreted by me: ECG: Normal sinus rhythm, 70 bpm, no ectopy, no overt ST elevation or depression, QTC 470, QRS 84. Cardiac Monitoring: An order for continuous cardiac monitoring was placed and demonstrated normal sinus rhythm, 70 bpm, no ectopy Laboratory studies: See below Imaging studies: XR chest 1V portable CLINICAL HISTORY: Atypical chest pain COMPARISON STUDY: 10/28/2019 FINDINGS: The heart is borderline enlarged. There is no overt failure. There is minor chronic interstitial thickening. There are no pleural effusions. The patient's shoulder arthroplasty has been removed. Antibiotic spacer has been placed. There is a fracture of the proximal right humeral shaft, likely at the level of the distal aspect of the prior humeral prosthetic component IMPRESSION: 1. No active disease in the chest 2. Postsurgical changes involving the right humerus with removal of the right shoulder arthroplasty. 3. Proximal humeral fracture -- CT SCAN OF THE ABDOMEN AND PELVIS WITHOUT CONTRAST CLINICAL HISTORY: cirrhosis, hematemesis/melena COMPARISON STUDY: CT scan of the liver dated 08/05/2018 TECHNIQUE: CT scan of the abdomen and pelvis was performed from the lung bases to the proximal femurs. Images are reviewed in the axial, sagittal, and coronal planes. IV contrast was not administered for this examination. A dose lowering technique was utilized adhering to the principles of ALARA. CT DOSE: 620.54 mGy.cm FINDINGS: Lower chest: There are mild basilar atelectatic changes. Liver: The liver has a cirrhotic morphology. No focal masses are visualized on this noncontrast examination. Gallbladder: Cholelithiasis. Spleen: The spleen is enlarged measuring 17.6 cm in diameter. Perisplenic varices are suspected. Gastric varices are also evident. Pancreas: Unremarkable. Adrenal glands: Unremarkable. Kidneys: There are bilateral nonobstructing renal calculi. There is no hydronephrosis. There is a 14 mm lower pole left renal hypodensity likely representing a cyst. No ureteral or bladder calculi are visualized. Bowel: There are no transition zones to indicate bowel obstruction. There is no evidence of acute diverticulitis. The appendix appears normal. Peritoneum: There is no intraperitoneal free air or abdominal ascites. There is a lower left-sided fat-containing ventral hernia Vasculature: The abdominal aorta is normal in course and caliber. Adenopathy: There is a persistent mildly enlarged pericardial lymph node. There are mildly enlarged upper abdominal lymph nodes possibly related to cirrhosis. Pelvic viscera: The bladder, and pelvic viscera are unremarkable. Skeletal structures: No destructive osseous lesions are seen. IMPRESSION: 1. Cirrhosis with evidence of portal hypertension with splenomegaly and varices 2. No evidence of bowel obstruction. No evidence of free air 3. Normal appendix. No evidence of acute diverticulitis 5. Mild adenopathy possibly reactive 6. Cholelithiasis 7. Bilateral nephrolithiasis. No ureteral or bladder calculi identified 8. Fat-containing lower left anterior abdominal wall hernia Consultation(s): Dr. De La Fuente, [facility] GI on-call Dr. Mejia, [facility] hospitalist. 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 Patient reports she had a ultrasound done on to evaluate her cirrhosis. She follows with [facility]. She denies any fevers, chills, cough, congestion, urinary symptoms. ROS: See above HPI for pertinent positives & negatives. A total of 10 systems reviewed and were otherwise negative. PAST MEDICAL HISTORY:See Below PAST SURGICAL HISTORY:See Below FAMILY HISTORY:See Below SOCIAL HISTORY:See Below HOME MEDICATIONS:See Below ALLERGIES:See Below VITALS:See Below PHYSICAL EXAMINATION: GENERAL: Slightly drowsy but awake, alert and oriented. Uncomfortable-appearing, in no distress HENT: Normocephalic, atraumatic. Oropharynx with dry mucous membranes and otherwise unremarkable. . EYES: Normal conjunctiva. Sclera non-icteric. NECK: Supple. No nuchal rigidity. FROM. No JVD. RESPIRATORY: Clear to auscultation. CARDIAC: Regular rate, normal rhythm. Extremities warm and well perfused. Pulses equal. ABDOMEN: Soft, non-distended. No tenderness to palpation. No rebound or guarding. No masses. RECTAL: Deferred. MUSCULOSKELETAL: Chest examination reveals no tenderness. The back is sym metrical on inspection without obvious abnormality. There is no CVA tenderness to palpation. No joint edema. LOWER EXTREMITIES: Calves are equal size bilaterally and non-tender. No edema. No discoloration. NEURO: Normal sensorium. No sensory or motor deficits noted. Subtle asterixis to bilateral upper extremities. SKIN: No rash or jaundice noted. ED COURSE: Critical Care: I have personally spent greater than 85 minutes of critical care time in the direct management of this patient. This includes bedside care, interpretation of diagnostic studies, and testing, discussion with consultants, patient, and family members, and other required patient management activities. This 85 minutes is in excess of all separately billable procedures. Levi Mae MD Past Med/Surg History Medical History Anxiety Cardiac murmur Diabetes type 2, uncontrolled Diabetic nephropathy associated with type 2 diabetes mellitus Diabetic peripheral neuropathy associated with type 2 diabetes mellitus Diverticular disease Duodenal ulcer Dysesthesia Esophageal varices Gastric ulcer GERD (gastroesophageal reflux disease) History of recent blood transfusion (~06/2019) Hypertension Liver cirrhosis Loss of protective sensation of skin of foot Nausea and vomiting after administration of anesthetic agent Osteoarthritis Pancytopenia Pleural effusion (Inactive) Pre-ulcerative corn or callous Psoriatic arthritis Pulmonary edema Restless leg syndrome Risk for falls Surgical History History of anesthesia reaction difficult to wake after bladder tack sx History of bilateral cataract extraction History of bladder surgery bladder tack History of colonoscopy History of esophagogastroduodenoscopy (EGD) multiple---last 06/22/19 Dr. Malena Marie at [facility] History of hemiarthroplasty of right shoulder January 2018 post fracture History of repair of right rotator cuff History of revision of total shoulder arthroplasty (12/29/18) Right shoulder, 12/29/18 History of shoulder surgery (~11/2019) Had right total arthroplasty removed 11/2019 History of tooth extraction all teeth S/P ORIF (open reduction internal fixation) fracture R shoulder, January 2018 S/P shoulder surgery (11/18/19) R TSA removal, I&D, placement of abx spacer Family History Grandmother (Paternal) Family history of diabetes mellitus Father COPD (chronic obstructive pulmonary disease) Mother Hypertension Family/Other Cancer Sister Ovarian cancer Denies family history of Prostate cancer Myocardial infarction Breast cancer Colorectal cancer Social History Smoking Status: Former smoker Second Hand Exposure: No; Hx Alcohol Use: No Hx Substance Use: No Preferred Language: Uruguayan Communication Ability: Effective Visual Impairment: Limited Hearing Ability: Normal Temper [place] Required: No Beliefs That Will Affect Care: None marital status: Current Living Situation: Spouse Current Living Situation Comment: Lives with and son current occupational status: retired Feels Safe at Home: Yes Childhood Exposure to Second-Hand Smoke: Yes Diet Comment: regular Dental Care, Regularly: No Physical Activity Frequency: Does not Exercise Seatbelt Use: sometimes Allergies Allergies Allergy/AdvReac Type Severity Reaction Status Date / Time Sulfa (Sulfonamide Allergy Intermediate Rash Verified 03/20/20 14:49 Antibiotics) sulfamethoxazole Allergy Intermediate RASH Verified 03/20/20 14:49 trimethoprim Allergy Intermediate RASH Verified 03/20/20 14:49 Bactrim Allergy Unknown RASH Verified 08/17/14 08:01 amlodipine AdvReac Intermediate confusion Verified 03/20/20 11:43 adhesive tape AdvReac Mild ITCHING Verified 03/20/20 11:43 Home Meds Home Medications Medication Instructions Recorded Confirmed ferrous sulfate 325 mg (65 mg 325 mg PO BID tab 01/28/19 03/20/20 iron) tablet acetaminophen [Tylenol Extra 500 mg PO Q6H PRN 10/04/19 03/20/20 Strength] lactulose 20 gram/30 mL oral 45 ml PO BID ml 12/10/19 03/20/20 solution teriparatide 20 mcg/dose (600 20 mcg SQ QAM 02/03/20 03/20/20 mcg/2.4 mL) subcutaneous pen injector calcitriol 0.25 mcg PO 3XWK 03/20/20 03/20/20 calcium carbonate-vitamin D3 1 tab PO QAM 03/20/20 03/20/20 [Oyster Shell Calcium-Vit D3] furosemide 40 mg PO QAM 03/20/20 03/20/20 insulin glargine [Basaglar KwikPen 15 units SUBCUT HS 03/20/20 03/20/20 U-100 Insulin] mometasone 1 appln TOP QAM 03/20/20 03/20/20 pantoprazole 40 mg PO QAM 03/20/20 03/20/20 sodium bicarbonate 650 mg PO BID 03/20/20 03/20/20 spironolactone 25 mg PO QAM 03/20/20 03/20/20 Previous Rx's Medication Instructions Recorded mupirocin 2 % topical ointment 1 appln TOP BID #22 gm 10/14/19 nystatin 100,000 unit/gram topical 1 appln TOP BID #30 gm 10/14/19 cream folic acid 1 mg tablet 1 mg PO BID #60 tab 11/10/19 pen needle, diabetic 31 gauge x #100 ea 11/17/1911/01" insulin aspart U-100 100 unit/mL See Rx Instructions SQ TID #15 ml 12/11/19 (3 mL) subcutaneous pen carvedilol 6.25 mg tablet 6.25 mg PO BID #60 tab 12/30/19 hydroxyzine HCl 10 mg tablet 10 mg PO QID PRN #30 tab 12/30/19 blood sugar diagnostic #200 ea 01/06/20 rifaximin 550 mg tablet 550 mg PO BID #180 tab 01/12/20 ropinirole 2 mg tablet 2 mg PO HS #30 tab 03/08/20 Results & Data (ED) Vital Signs Vital Signs - 24 hr 03/20/20 10:00 03/20/20 11:34 03/20/20 11:43 Temperature 36.4 C L Temperature Source Oral Pulse Rate 67 75 74 Pulse Rate from SpO2 Sensor Respiratory Rate 20 20 20 Respiratory Effort / Characteristics Non-Labored Spontaneous Respiratory Depth Normal Respiratory Pattern Regular Blood Pressure 116/55 L 158/75 H Blood Pressure Mean 75 144 Blood Pressure Position Sitting Pulse Oximetry 99 Oxygen Delivery Method Room Air Room Air Room Air Sepsis Recent Fever Within 48 Hours No Sepsis New/Unexplained Change in Mental Status N/A Sepsis Action Taken by Nursing No Action Required 03/20/20 11:50 03/20/20 12:00 03/20/20 12:01 Temperature Temperature Source Pulse Rate 77 77 77 Pulse Rate from SpO2 Sensor Respiratory Rate 16 19 16 Respiratory Effort / Characteristics Respiratory Depth Respiratory Pattern Blood Pressure 168/59 H Blood Pressure Mean 100 Blood Pressure Position Pulse Oximetry Oxygen Delivery Method Room Air Room Air Room Air Sepsis Recent Fever Within 48 Hours Sepsis New/Unexplained Change in Mental Status Sepsis Action Taken by Nursing 03/20/20 12:10 03/20/20 12:20 03/20/20 12:30 Temperature Temperature Source Pulse Rate 79 79 83 Pulse Rate from SpO2 Sensor Respiratory Rate 19 18 19 Respiratory Effort / Characteristics Respiratory Depth Respiratory Pattern Blood Pressure 184/77 H Blood Pressure Mean 90 Blood Pressure Position Pulse Oximetry Oxygen Delivery Method Room Air Room Air Room Air Sepsis Recent Fever Within 48 Hours Sepsis New/Unexplained Change in Mental Status Sepsis Action Taken by Nursing 03/20/20 12:31 03/20/20 12:37 03/20/20 12:38 Temperature Temperature Source Pulse Rate 83 84 85 Pulse Rate from SpO2 Sensor 84 84 Respiratory Rate 21 24 20 Respiratory Effort / Characteristics Respiratory Depth Respiratory Pattern Blood Pressure 195/124 H 177/90 H Blood Pressure Mean 128 117 Blood Pressure Position Pulse Oximetry 94 94 Oxygen Delivery Method Room Air Room Air Room Air Sepsis Recent Fever Within 48 Hours Sepsis New/Unexplained Change in Mental Status Sepsis Action Taken by Nursing 03/20/20 12:40 03/20/20 12:41 03/20/20 12:50 Temperature 36.6 C Temperature Source Oral Pulse Rate 85 84 86 Pulse Rate from SpO2 Sensor 85 86 Respiratory Rate 21 20 20 Respiratory Effort / Characteristics Respiratory Depth Respiratory Pattern Blood Pressure 177/90 H Blood Pressure Mean 119 Blood Pressure Position Pulse Oximetry 94 94 96 Oxygen Delivery Method Room Air Room Air Sepsis Recent Fever Within 48 Hours Sepsis New/Unexplained Change in Mental Status Sepsis Action Taken by Nursing 03/20/20 12:55 03/20/20 12:56 03/20/20 13:00 Temperature 36.8 C Temperature Source Oral Pulse Rate 86 86 87 Pulse Rate from SpO2 Sensor 86 87 Respiratory Rate 19 17 18 Respiratory Effort / Characteristics Respiratory Depth Respiratory Pattern Blood Pressure 185/86 H 185/86 H 182/84 H Blood Pressure Mean 119 119 128 Blood Pressure Position Pulse Oximetry 95 96 97 Oxygen Delivery Method Room Air Room Air Sepsis Recent Fever Within 48 Hours Sepsis New/Unexplained Change in Mental Status Sepsis Action Taken by Nursing 03/20/20 13:01 03/20/20 13:10 03/20/20 13:11 Temperature 36.8 C Temperature Source Oral Pulse Rate 87 86 88 Pulse Rate from SpO2 Sensor 87 87 88 Respiratory Rate 20 20 21 Respiratory Effort / Characteristics Respiratory Depth Respiratory Pattern Blood Pressure 181/93 H 181/93 H Blood Pressure Mean 122 127 Blood Pressure Position Sitting Pulse Oximetry 96 97 96 Oxygen Delivery Method Room Air Room Air Room Air Sepsis Recent Fever Within 48 Hours Sepsis New/Unexplained Change in Mental Status Sepsis Action Taken by Nursing 03/20/20 13:20 03/20/20 13:30 03/20/20 13:31 Temperature Temperature Source Pulse Rate 88 88 88 Pulse Rate from SpO2 Sensor 88 87 88 Respiratory Rate 22 16 19 Respiratory Effort / Characteristics Respiratory Depth Respiratory Pattern Blood Pressure 169/104 H Blood Pressure Mean 134 Blood Pressure Position Pulse Oximetry 96 98 97 Oxygen Delivery Method Room Air Room Air Room Air Sepsis Recent Fever Within 48 Hours Sepsis New/Unexplained Change in Mental Status Sepsis Action Taken by Nursing 03/20/20 13:40 03/20/20 13:41 03/20/20 13:50 Temperature 36.9 C Temperature Source Oral Pulse Rate 89 88 89 Pulse Rate from SpO2 Sensor 89 88 89 Respiratory Rate 18 15 14 Respiratory Effort / Characteristics Respiratory Depth Respiratory Pattern Blood Pressure 184/86 H 184/86 H Blood Pressure Mean 118 128 Blood Pressure Position Lying Pulse Oximetry 98 98 98 Oxygen Delivery Method Room Air Room Air Room Air Sepsis Recent Fever Within 48 Hours Sepsis New/Unexplained Change in Mental Status Sepsis Action Taken by Nursing Laboratory Data Result diagrams: 03/20/20 19:04 03/20/20 19:04 Lab Results 03/20/20 03/20/20 03/20/20 Range/Units 10:38 10:38 10:38 WBC 2.81 L (4.8-10.8) K/uL RBC 1.99 L (4.2-5.4) M/uL Hgb 6.0 L* (12.0-16.0) g/dL Hct 18.4 L* (37-47) % MCV 92.5 (80-100) fL MCH 30.2 (25-34) pg MCHC 32.6 (32-36) g/dL RDW Std Deviation 56.9 H (36.4-46.3) fL RDW Coeff of Karina 17.0 H (11.5-14.5) % Plt Count 50 L (130-400) K/uL MPV 9.2 (7.4-10.4) fL Immature Gran % (Auto) 0.4 % Neut % (Auto) 68.0 % Lymph % (Auto) 22.4 % [place] % (Auto) 6.4 % Eos % (Auto) 2.8 % Baso % (Auto) 0.0 % Neut # (Auto) 1.91 (1.4-6.5) K/uL Lymph # (Auto) 0.63 L (1.2-3.4) K/uL [place] # (Auto) 0.18 (0.11-0.59) K/uL Eos # (Auto) 0.08 (0-0.5) K/uL Baso # (Auto) 0.00 (0-0.2) K/uL Immature Gran # (Auto) 0.01 (0.00-0.02) K/uL RBC Morphology Unremarkable PT 12.7 H (9.0-12.0) Seconds INR 1.2 H (0.9-1.1) APTT 32.1 H (21.0-31.0) Seconds PTT Ratio 1.2 Sodium 147 H (136-145) mmol/L Potassium 5.7 H (3.5-5.1) mmol/L Chloride 122 H (98-107) mmol/L Carbon Dioxide 15 L (21-32) mmol/L Anion Gap 9.0 (3-11) BUN 85 H (7-18) mg/dl Creatinine 2.69 H (0.6-1.2) mg/dl Est Cr Clr Drug Dosing 18.9 ml/min Est GFR ( Amer) 21.0 Est GFR (Non-Af Amer) 18.1 BUN/Creatinine Ratio 31.7 H (10-20) Glucose 172 H (70-99) mg/dl Calcium 8.5 (8.5-10.1) mg/dl Phosphorus 5.1 H (2.5-4.9) mg/dl Magnesium 2.6 H (1.8-2.4) mg/dl Total Bilirubin 0.7 (0.2-1) mg/dl Direct Bilirubin 0.3 H (0-0.2) mg/dl AST 32 (15-37) U/L ALT 20 (12-78) U/L Alkaline Phosphatase 132 H (45-117) U/L Ammonia (11-32) umol/L Troponin I < 0.015 (0-0.045) ng/ml Total Protein 6.8 (6.4-8.2) gm/dl Albumin 2.5 L (3.4-5.0) gm/dl Globulin 4.3 H (2.5-4.0) gm/dl Albumin/Globulin Ratio 0.6 L (0.9-2) Lipase 274 (73-393) U/L Blood Type Antibody Screen Crossmatch 03/20/20 03/20/20 Range/Units 10:38 10:38 WBC (4.8-10.8) K/uL RBC (4.2-5.4) M/uL Hgb (12.0-16.0) g/dL Hct (37-47) % MCV (80-100) fL MCH (25-34) pg MCHC (32-36) g/dL RDW Std Deviation (36.4-46.3) fL RDW Coeff of Karina (11.5-14.5) % Plt Count (130-400) K/uL MPV (7.4-10.4) fL Immature Gran % (Auto) % Neut % (Auto) % Lymph % (Auto) % [place] % (Auto) % Eos % (Auto) % Baso % (Auto) % Neut # (Auto) (1.4-6.5) K/uL Lymph # (Auto) (1.2-3.4) K/uL [place] # (Auto) (0.11-0.59) K/uL Eos # (Auto) (0-0.5) K/uL Baso # (Auto) (0-0.2) K/uL Immature Gran # (Auto) (0.00-0.02) K/uL RBC Morphology PT (9.0-12.0) Seconds INR (0.9-1.1) APTT (21.0-31.0) Seconds PTT Ratio Sodium (136-145) mmol/L Potassium (3.5-5.1) mmol/L Chloride (98-107) mmol/L Carbon Dioxide (21-32) mmol/L Anion Gap (3-11) BUN (7-18) mg/dl Creatinine (0.6-1.2) mg/dl Est Cr Clr Drug Dosing ml/min Est GFR ( Amer) Est GFR (Non-Af Amer) BUN/Creatinine Ratio (10-20) Glucose (70-99) mg/dl Calcium (8.5-10.1) mg/dl Phosphorus (2.5-4.9) mg/dl Magnesium (1.8-2.4) mg/dl Total Bilirubin (0.2-1) mg/dl Direct Bilirubin (0-0.2) mg/dl AST (15-37) U/L ALT (12-78) U/L Alkaline Phosphatase (45-117) U/L Ammonia 208.9 H (11-32) umol/L Troponin I (0-0.045) ng/ml Total Protein (6.4-8.2) gm/dl Albumin (3.4-5.0) gm/dl Globulin (2.5-4.0) gm/dl Albumin/Globulin Ratio (0.9-2) Lipase (73-393) U/L Blood Type O Positive Antibody Screen NEGATIVE Crossmatch See Detail Administered Medications Pantoprazole Sodium 40 mg/ (Dextrose) 100 mls @ 20 mls/hr IV Q5H BOBBY Stop: 04/19/20 11:07 Last Admin: 03/20/20 21:05 Dose: 8 mg/hr, 20 mls/hr Documented by: [id number] Infusion: 03/20/20 21:05 Dose: 8 mg/hr, 20 mls/hr Documented by: [id number] Admin: 03/20/20 16:32 Dose: 8 mg/hr, 20 mls/hr Documented by: [id number] Infusion: 03/20/20 16:32 Dose: 8 mg/hr, 20 mls/hr Documented by: [id number] Admin: 03/20/20 11:52 Dose: 8 mg/hr, 20 mls/hr Documented by: [id number] Octreotide Acetate 500 mcg/ (Sodium Chloride) 105 mls @ 10.5 mls/hr IV .Q10H BOBBY Stop: 04/19/20 10:59 Last Admin: 03/20/20 21:04 Dose: 50 mcg/hr, 10.5 mls/hr Documented by: [id number] Infusion: 03/20/20 21:04 Dose: 50 mcg/hr, 10.5 mls/hr Documented by: [id number] Admin: 03/20/20 12:56 Dose: 50 mcg/hr, 10.5 mls/hr Documented by: [id number] Propofol (Diprivan) 1,000 mg in 100 mls @ 8.16 mls/hr IV .[id number] BOBBY; Protocol Stop: 03/23/20 15:14 Last Titration: 03/20/20 19:01 Dose: 45 mcg/kg/min, 18.4 mls/hr Documented by: [id number] Cosigned by: [id number] Admin: 03/20/20 17:50 Dose: 45 mcg/kg/min, 18.4 mls/hr Documented by: [id number] Cosigned by: [id number] Titration: 03/20/20 17:50 Dose: 45 mcg/kg/min, 18.4 mls/hr Documented by: [id number] Cosigned by: [id number] Admin: 03/20/20 15:45 Dose: 45 mcg/kg/min, 18.4 mls/hr Documented by: [id number] Cosigned by: [id number] Fentanyl Citrate (Fentanyl Drip) 1,250 mcg in 250 mls @ 10 mls/hr IV .Q24H BOBBY; Protocol Stop: 04/03/20 15:14 Last Titration: 03/20/20 19:01 Dose: 50 mcg/hr, 10 mls/hr Documented by: [id number] Cosigned by: [id number] Titration: 03/20/20 16:42 Dose: 50 mcg/hr, 10 mls/hr Documented by: [id number] Admin: 03/20/20 16:28 Dose: 25 mcg/hr, 5 mls/hr Documented by: [id number] Cosigned by: [id number] Sodium Chloride (Nss 1000ml) 1,000 mls @ 50 mls/hr IV .Q20H BOBBY Stop: 04/19/20 16:59 Last Admin: 03/20/20 17:38 Dose: 50 mls/hr Documented by: [id number] Insulin Glargine (Lantus Solostar Pen) 15 units SQ HS BOBBY Stop: 04/19/20 20:59 Last Admin: 03/20/20 21:05 Dose: 15 units Documented by: [id number] Cosigned by: [id number] Midazolam HCl (Versed) 2 mg IV Q2H PRN PRN Reason: RASS goal -1 Stop: 04/19/20 15:09 Last Admin: 03/20/20 16:17 Dose: 2 mg Documented by: [id number] Discontinued Medications Etomidate (Amidate) Confirm Administered Dose 40 mg IV .STK-MED ONE Stop: 03/20/20 14:22 Last Admin: 03/20/20 16:18 Dose: 40 mg Documented by: [id number] Famotidine (Pepcid 20mg Iv Push) 20 mg IV ONE STA Stop: 03/20/20 10:26 Last Admin: 03/20/20 11:47 Dose: 20 mg Documented by: [id number] Fentanyl Citrate (Fentanyl Citrate) Confirm Administered Dose 100 mcg .ROUTE .STK-MED ONE Stop: 03/20/20 14:44 Last Increment: 03/20/20 16:17 Dose: 50 mcg Documented by: [id number] Prochlorperazine (Compazine) 2 mls @ 1 mls/min IV ONE ONE Stop: 03/20/20 10:26 Last Admin: 03/20/20 11:39 Dose: 1 mls/min Documented by: [id number] Sodium Chloride (Nss) 500 mls @ 999 mls/hr IV .Q31M ONE Stop: 03/20/20 10:56 Last Infusion: 03/20/20 12:11 Dose: 0 mls/hr Documented by: [id number] Admin: 03/20/20 11:32 Dose: 999 mls/hr Documented by: [id number] Sodium Chloride (Nss) 250 mls @ 15 mls/hr IV .[id number] PRN PRN Reason: For Transfusion Stop: 03/20/20 20:52 Last Admin: 03/20/20 13:02 Dose: 15 mls/hr Documented by: [id number] Pantoprazole Sodium (Protonix Bolus/Drip) 0 mls @ 1 mls/hr IV ONE STA Stop: 03/20/20 10:54 Last Infusion: 03/20/20 12:12 Dose: 0 mls/hr Documented by: [id number] Admin: 03/20/20 11:52 Dose: 1 mls/hr Documented by: [id number] Pantoprazole Sodium 80 mg/ (Dextrose) 120 mls @ 400 mls/hr IV NOW ONE Stop: 03/20/20 11:10 Last Infusion: 03/20/20 11:52 Dose: 0 mls/hr Documented by: [id number] Admin: 03/20/20 11:31 Dose: 400 mls/hr Documented by: [id number] Octreotide Acetate 50 mcg/ (Syringe) 10 mls @ 3 mls/min IV ONE STA Stop: 03/20/20 10:56 Last Admin: 03/20/20 11:32 Dose: 3 mls/min Documented by: [id number] Sodium Chloride (Nss) 500 mls @ 999 mls/hr IV .Q31M ONE Stop: 03/20/20 12:07 Last Infusion: 03/20/20 13:38 Dose: 0 mls/hr Documented by: [id number] Admin: 03/20/20 13:01 Dose: 999 mls/hr Documented by: [id number] Calcium Chloride 1,000 mg/ (Sodium Chloride) 60 mls @ 240 mls/hr IV 1600 ONE Stop: 03/20/20 16:14 Last Infusion: 03/20/20 17:45 Dose: 0 mls/hr Documented by: [id number] Admin: 03/20/20 17:26 Dose: 240 mls/hr Documented by: [id number] Midazolam HCl (Versed) Confirm Administered Dose 2 mg .ROUTE .STK-MED ONE Stop: 03/20/20 14:44 Last Admin: 03/20/20 16:28 Dose: Not Given Documented by: [id number] Propofol (Diprivan) Confirm Administered Dose 1,000 mg IV .STK-MED ONE Stop: 03/20/20 14:22 Last Admin: 03/20/20 16:28 Dose: Not Given Documented by: [id number] Sodium Bicarbonate (Sodium Bicarbonate 8.4%) 50 meq IV ONE ONE Stop: 03/20/20 15:46 Last Admin: 03/20/20 17:42 Dose: 50 meq Documented by: [id number] Blood Pressure Blood Pressure Findings: Elevated blood pressure Blood Pressure Disposition: further management by hospitalist Discharge Plan Visit Data *Final* Discharge Date/Time: 03/20/20 14:10 Chief Complaint: Vomiting Stated Complaint: BLOOD IN STOOL - THREW UP BLOOD ED Provider: Levi Mae Discharge Problem: Acute GI bleeding, Liver cirrhosis secondary to FOWLER, Symptomatic anemia, Acute on chronic renal insufficiency, Hyperammonemia, Metabolic acidosis Patient Disposition: Admitted As Inpatient Discharge Instructions Interventions: ED Discharge Assessment Last Done: 03/20/20 14:10
[2020-03-20 10:50] LABS: Hematocrit (blood only) 18.4 % (37-47); Mean Corpuscular Hemoglobin 30.2 pg (25-34); Mean Corpuscular Hgb Conc 32.6 g/dL (32-36); Mean Corpuscular Volume 92.5 fL (80-100); Mean Platelet Volume 9.2 fL (7.4-10.4); Platelet Count 50 K/uL (130-400); RDW Standard Deviation 56.9 fL (36.4-46.3); Red Blood Count 1.99 M/uL (4.2-5.4); White Blood Count 2.81 K/uL (4.8-10.8)
[2020-03-20] MEDS ORDERED: SODIUM CHLORIDE 0.9% 250 ML IV PRN ×2 (10:52→20:36)
[2020-03-20] MEDS ORDERED: PANTOprazole 80 MG in DEXTROSE 5% 100 ML IV ONE (10:53)
[2020-03-20] MEDS ORDERED: OCTREOTIDE ACETATE 50 MCG in SYRINGE 9.5 ML IV STA (10:53)
[2020-03-20] MEDS ORDERED: PANTOPRAZOLE BOLUS/DRIP 1 EA IV STA (10:53)
[2020-03-20 10:58] LABS: INR 1.2 (0.9-1.1); Partial Thromboplastin Ratio 1.2; Partial Thromboplastin Time 32.1 Seconds (21.0-31.0); Prothrombin Time 12.7 Seconds (9.0-12.0)
[2020-03-20 11:07] LABS: Alanine Aminotransferase 20 U/L (12-78); Albumin Level 2.5 gm/dl (3.4-5.0); Aspartate Aminotransferase 32 U/L (15-37); BUN Creatinine Ratio 31.7 (10-20); Bilirubin Direct 0.3 mg/dl (0-0.2); Blood Urea Nitrogen 85 mg/dl (7-18); Calcium 8.5 mg/dl (8.5-10.1); Carbon Dioxide 15 mmol/L (21-32); Chloride 122 mmol/L (98-107); Creatinine Clr Calc Pharmacy 18.9 ml/min; Est GFR (Non-African American) 18.1; Glucose 172 mg/dl (70-99); Lipase 274 U/L (73-393); Magnesium 2.6 mg/dl (1.8-2.4); Potassium 5.7 mmol/L (3.5-5.1); Sodium 147 mmol/L (136-145)
[2020-03-20 11:10] LABS: Albumin Globulin Ratio 0.6 (0.9-2); Alkaline Phosphatase 132 U/L (45-117); Bilirubin,Total 0.7 mg/dl (0.2-1); Globulin 4.3 gm/dl (2.5-4.0); Phosphorus 5.1 mg/dl (2.5-4.9); Total Protein 6.8 gm/dl (6.4-8.2); Troponin I < 0.015 ng/ml (0-0.045)
[2020-03-20 11:17] LABS: Eosinophils # (auto) 0.08 K/uL (0-0.5); Eosinophils % (auto) 2.8 %; Immature Granulocytes # (auto) 0.01 K/uL (0.00-0.02); Immature Granulocytes % (auto) 0.4 %; Lymphocytes # (auto) 0.63 K/uL (1.2-3.4); Lymphocytes % (auto) 22.4 %; Monocytes # (auto) 0.18 K/uL (0.11-0.59); Monocytes % (auto) 6.4 %; Neutrophils # (auto) 1.91 K/uL (1.4-6.5); RBC Morphology Unremarkable
--- NOTE | 2020-03-20 11:17 | XRay Report ---
XR chest 1V portable CLINICAL HISTORY: Atypical chest pain COMPARISON STUDY: 10/28/2019 FINDINGS: The heart is borderline enlarged. There is no overt failure. There is minor chronic interst itial thickening. There are no pleural effusions. The patient's shoulder arthroplasty has been remove d. Antibiotic spacer has been placed. There is a fracture of the proximal right humeral shaft, likely at the level of the distal aspect of the prior humeral prosthetic component IMPRESSION: 1. No active disease in the chest 2. Postsurgical changes involving the right humerus with removal of the right shoulder arthroplasty. 3. Proximal humeral fracture ACT 112: Negative or not required by law. Electronically signed by: Devon Walton M.D. 03/20/2020 11:16 AM
--- NOTE | 2020-03-20 11:25 | CT Scan Report ---
CT SCAN OF THE ABDOMEN AND PELVIS WITHOUT CONTRAST CLINICAL HISTORY: cirrhosis, hematemesis/melena COMPARISON STUDY: CT scan of the liver dated 08/05/2018 TECHNIQUE: CT scan of the abdomen and pelvis was performed from the lung bases to the proximal femurs . Images are reviewed in the axial, sagittal, and coronal planes. IV contrast was not administered fo r this examination. A dose lowering technique was utilized adhering to the principles of ALARA. CT DOSE: 620.54 mGy.cm FINDINGS: Lower chest: There are mild basilar atelectatic changes. Liver: The liver has a cirrhotic morphology. No focal masses are visualized on this noncontrast exami nation. Gallbladder: Cholelithiasis. Spleen: The spleen is enlarged measuring 17.6 cm in diameter. Perisplenic varices are suspected. Kalyan natasha varices are also evident. Pancreas: Unremarkable. Adrenal glands: Unremarkable. Kidneys: There are bilateral nonobstructing renal calculi. There is no hydronephrosis. There is a 14 mm lower pole left renal hypodensity likely representing a cyst. No ureteral or bladder calculi are v isualized. Bowel: There are no transition zones to indicate bowel obstruction. There is no evidence of acute div erticulitis. The appendix appears normal. Peritoneum: There is no intraperitoneal free air or abdominal ascites. There is a lower left-sided fa t-containing ventral hernia Vasculature: The abdominal aorta is normal in course and caliber. Adenopathy: There is a persistent mildly enlarged pericardial lymph node. There are mildly enlarged u pper abdominal lymph nodes possibly related to cirrhosis. Pelvic viscera: The bladder, and pelvic viscera are unremarkable. Skeletal structures: No destructive osseous lesions are seen. IMPRESSION: 1. Cirrhosis with evidence of portal hypertension with splenomegaly and varices 2. No evidence of bowel obstruction. No evidence of free air 3. Normal appendix. No evidence of acute diverticulitis 5. Mild adenopathy possibly reactive 6. Cholelithiasis 7. Bilateral nephrolithiasis. No ureteral or bladder calculi identified 8. Fat-containing lower left anterior abdominal wall hernia ACT 112: Negative or not required by law. Electronically signed by: Devon Walton M.D. 03/20/2020 11:24 AM
[2020-03-20] MEDS: PANTOprazole 40 MG in DEXTROSE 5% 100 ML IV SCH ×3 (11:52→21:05)
[2020-03-20] MEDS: OCTREOTIDE ACETATE 500 MCG in 0.9 % SODIUM CHLORIDE 100 ML IV SCH ×2 (12:56→21:04)
--- NOTE | 2020-03-20 13:39 | Electrocardiogram Report ---
Test Reason : Blood Pressure : / mmHG Vent. Rate : 070 BPM Atrial Rate : 070 BPM P-R Int : 196 ms QRS Dur : 084 ms QT Int : 436 ms P-R-T Axes : 042 044 014 degrees QTc Int : 470 ms Normal sinus rhythm Normal ECG When compared with ECG of 04-OCT-2019 19:19, Premature atrial complexes are no longer Present Confirmed by Adam Mcgraw ([id number]) on 03/20/2020 1:39:03 PM Referred By: REFERRED SELF Confirmed By:Adam Mcgraw
--- NOTE | 2020-03-20 13:57 | History & Physical Report ---
Date of Service March 20, 2020 Assessment & Plan (1) Acute blood loss anemia: Likely GI bleeding from esophageal varices versus portal gastropathy, last EGD 09/2018 with grade 1 esophageal varices and erosive gastropathy With hematemesis and melena, hemoglobin of 6.0 on admission Is acutely encephalopathic Is hemodynamically stable for now -Admit to ICU -GI consultation-recommends EGD if becomes hemodynamically stable or continues to vomit blood -Continue octreotide drip and Protonix drip started in the ER -Hold all p.o. meds and make n.p.o. -Check CBC serially and transfuse 2 units PRBCs now -ICU/critical care consultation appreciated-plan for central line placement and possibly intubation with possible transfer to tertiary care center (2) GI bleed: As above (3) Hyperkalemia: Secondary to acute kidney injury Potassium 5.7 -Given volume resuscitation Serial BMP (4) Hepatic encephalopathy: Ammonia level 208, is not mentating well and I know her from previous admissions-she is definitely changed from previous -Can give lactulose rectally if needed-defer to road grader (5) HENRIQUE (acute kidney injury): Creatinine up to 2.69, BUN up to 85, from baseline of creatinine 1.8 and BUN 47 BUN likely also up due to GI bleeding Consider hepatorenal syndrome? Place Collins catheter and check UA -Consider nephrology consultation -Volume resuscitation with PRBCs Follow BMP -Holding home diuretics (6) Metabolic acidosis: Typically bicarbonate is 18-21, is currently 15 May be secondary to acute kidney injury Holding home p.o. sodium bicarbonate -Consider bicarbonate infusion -Defer to road grader -Check ABG stat May need intubation (7) Liver cirrhosis secondary to FOWLER: As above, with portal hypertension -Hold home carvedilol in case of drop in blood pressure from acute GI bleeding -Holding home diuretics for now Octreotide drip as above (8) Hypernatremia: As above, may be related to volume loss Follow BMP (9) Diabetic nephropathy associated with type 2 diabetes mellitus: Noted (10) Diabetes type 2, uncontrolled: Continue Lantus and NovoLog Blood glucose here is acceptable (11) Pancytopenia: Secondary to cirrhosis and acute on chronic anemia Follow CBC (12) Nocturnal hypoxemia: Wears 2 L nasal cannula at nighttime (13) Obstructive sleep apnea: Wears 2 L nasal cannula at nighttime (14) Hypertension: Hypertensive currently -Holding home carvedilol, diuretics because of GI bleeding Follow blood pressures (15) Depression: Noted Not currently on medication for this (16) Pulmonary hypertension: Noted on most recent echocardiogram (17) Mitral regurgitation: Mild on most recent echocardiogram (18) Aortic stenosis: Trivial aortic stenosis on most recent echocardiogram (19) Vitamin D deficiency: Hold home vitamin D supplementation (20) Psoriatic arthritis: Not on medications for this (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 Protonix and doing Protonix drip for now (23) Chronic kidney disease, stage III (moderate): Follows with nephrology, baseline creatinine 1.8 as above -Avoid nephrotoxins -renally dose meds when appropriate -follow BMP (24) DVT prophylaxis: SCDs only given GI bleeding Disposition-critically ill, admit to ICU, possible transfer to tertiary care center History of Present Illness Chief Complaint: Vomiting blood Primary Care Provider: Rocío Alonso DO This patient is a 64-year-old female with a history of Fowler cirrhosis with esophageal varices and portal hypertension, DM 2, CKD stage III, non-anion gap metabolic acidosis on bicarbonate, neuropathy, RLS, pancytopenia, GERD, HTN, chronic pleural effusions, psoriatic arthritis, who presents to the ER with vomiting of rust colored blood and black stools with some blood in the toilet water since yesterday. She is very drowsy and lethargic when I saw her and her does most of the talking for the history. She she has been having intermittent nausea and vomiting about 3 times per week for the last month and did not want to come to the doctor for it. When her saw that she had vomited 3 times with blood since yesterday and last night and then had dark stools x5 with some bright red blood in the toilet, he made her come into the hospital. She denies abdominal pain, chest pain, cough, but is feeling some shortness of breath. In the ER, she was found to have a hemoglobin of 6.0 and was grossly heme positive with melena on digital rectal exam. She was also found to have acute kidney injury with a creatinine of 2.69, BUN was high at 85, she was hypernatremic with sodium of 147, potassium 5.7, and a non-anion gap metabolic acidosis with a bicarbonate of 15 down from her baseline of 21. Her ammonia level was significantly elevated at 208. Her troponin was negative. Lipase was negative. A urine sample had not yet been collected. A CT of the abdomen and pelvis without contrast showed cirrhosis with portal hypertension with splenomegaly and varices, no bowel obstruction or free air, possibly reactive mild adenopathy, cholelithiasis, bilateral nephrolithiasis, and a fat-containing lower left anterior abdominal wall hernia. A chest x-ray showed no active disease in the chest but with postsurgical changes involving the right humerus with removal of the right shoulder arthroplasty and a proximal humerus fracture. reports that this is stable from previous and she has been following with orthopedics. She is to wear a sling as needed since she had her arthroplasty removed for infection in 11/2019 and had a spacer put in. She was deemed too high risk to do any further surgery on the arm. Fortunately, she was hypertensive and with a normal heart rate. She was not hypoxic, but uses nocturnal O2 at home. She was in and out of sleep and very lethargic, but did wake up and answer some of my questions although at times her had to correct her answers as they were inaccurate. She was started on a Protonix drip and octreotide drip and was started with a PRBC transfusion to be a total of 2 units in the ER. I discussed the case at length with GI on-call, Dr. De La Fuente, who is in agreement with octreotide drip, Protonix drip, PRBC transfusion with careful monitoring to not elevate portal pressures, and for EGD in the morning unless acutely decompensates hemodynamically or with vomiting of blood again. I discussed the case at length with the ICU attending, Dr. Garnett, who felt that the patient was in need of a central line placement, intubation given her encephalopathy, further evaluation for hepatorenal syndrome, and continued care for her GI bleed with possible transfer to tertiary care center. Allergies Allergy/AdvReac Type Severity Reaction Status Date / Time Sulfa (Sulfonamide Allergy Mild Rash Verified 03/20/20 11:43 Antibiotics) sulfamethoxazole Allergy Mild RASH Verified 03/20/20 11:43 trimethoprim Allergy Mild RASH Verified 03/20/20 11:43 Bactrim Allergy Unknown RASH Verified 08/17/14 08:01 amlodipine AdvReac Intermediate confusion Verified 03/20/20 11:43 adhesive tape AdvReac Mild ITCHING Verified 03/20/20 11:43 Home Medications Home Medications Medication Instructions Recorded Confirmed Type ferrous sulfate 325 mg (65 mg 325 mg PO BID tab 01/28/19 03/20/20 History iron) tablet acetaminophen [Tylenol Extra 500 mg PO Q6H PRN 10/04/19 03/20/20 History Strength] mupirocin 2 % topical ointment 1 appln TOP BID #22 gm 10/14/19 03/20/20 Rx nystatin 100,000 unit/gram topical 1 appln TOP BID #30 gm 10/14/19 03/20/20 Rx cream folic acid 1 mg tablet 1 mg PO BID #60 tab 11/10/19 03/20/20 Rx pen needle, diabetic 31 gauge x #100 ea 11/17/19 02/03/20 Rx 3/16" lactulose 20 gram/30 mL oral 45 ml PO BID ml 12/10/19 03/20/20 History solution insulin aspart U-100 100 unit/mL See Rx Instructions SQ TID #15 ml 12/11/19 03/20/20 Rx (3 mL) subcutaneous pen carvedilol 6.25 mg tablet 6.25 mg PO BID #60 tab 12/30/19 03/20/20 Rx hydroxyzine HCl 10 mg tablet 10 mg PO QID PRN #30 tab 12/30/19 03/20/20 Rx blood sugar diagnostic #200 ea 01/06/20 02/03/20 Rx rifaximin 550 mg tablet 550 mg PO BID #180 tab 01/12/20 03/20/20 Rx teriparatide 20 mcg/dose (600 20 mcg SQ QAM 02/03/20 03/20/20 History mcg/2.4 mL) subcutaneous pen injector ropinirole 2 mg tablet 2 mg PO HS #30 tab 03/08/20 03/20/20 Rx calcitriol 0.25 mcg PO 3XWK 03/20/20 03/20/20 History calcium carbonate-vitamin D3 1 tab PO QAM 03/20/20 03/20/20 History [Oyster Shell Calcium-Vit D3] furosemide 40 mg PO QAM 03/20/20 03/20/20 History insulin glargine [Basaglar KwikPen 15 units SUBCUT HS 03/20/20 03/20/20 History U-100 Insulin] mometasone 1 appln TOP QAM 03/20/20 03/20/20 History pantoprazole 40 mg PO QAM 03/20/20 03/20/20 History sodium bicarbonate 650 mg PO BID 03/20/20 03/20/20 History spironolactone 25 mg PO QAM 03/20/20 03/20/20 History Past Med/Surg History Medical History (Updated 03/20/20 @ 14:25 by Mali Mejia MD) Anxiety Cardiac murmur Diabetes type 2, uncontrolled Diabetic nephropathy associated with type 2 diabetes mellitus Diabetic peripheral neuropathy associated with type 2 diabetes mellitus Diverticular disease Duodenal ulcer Dysesthesia Esophageal varices Gastric ulcer GERD (gastroesophageal reflux disease) History of recent blood transfusion (~06/2019) Hypertension Liver cirrhosis Loss of protective sensation of skin of foot Nausea and vomiting after administration of anesthetic agent Osteoarthritis Pancytopenia Pleural effusion (Inactive) Pre-ulcerative corn or callous Psoriatic arthritis Pulmonary edema Restless leg syndrome Risk for falls Surgical History History of anesthesia reaction difficult to wake after bladder tack sx History of bilateral cataract extraction History of bladder surgery bladder tack History of colonoscopy History of esophagogastroduodenoscopy (EGD) multiple---last 06/22/19 Dr. Malena Marie at [facility] [place] History of hemiarthroplasty of right shoulder January 2018 post fracture History of repair of right rotator cuff History of revision of total shoulder arthroplasty (12/29/18) Right shoulder, 12/29/18 History of shoulder surgery (~11/2019) Had right total arthroplasty removed 11/2019 History of tooth extraction all teeth S/P ORIF (open reduction internal fixation) fracture R shoulder, January 2018 S/P shoulder surgery (11/18/19) R TSA removal, I&D, placement of abx spacer Family History Grandmother (Paternal) Family history of diabetes mellitus Father COPD (chronic obstructive pulmonary disease) Mother Hypertension Family/Other Cancer Sister Ovarian cancer Denies family history of Prostate cancer Myocardial infarction Breast cancer Colorectal cancer Social History Smoking Status: Former smoker Second Hand Exposure: No; Do You Dip or Chew Tobacco: No; Tobacco Cessation Education Requested by Patient: No Hx Alcohol Use: No Hx Substance Use: No Preferred Language: Kiswahili Communication Ability: Effective Visual Impairment: Limited Hearing Ability: Normal 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 Required: No Beliefs That Will Affect Care: None marital status: Current Living Situation: Spouse Current Living Situation Comment: Lives with and son current occupational status: retired Other Information That Helps Us Care for You: No Feels Safe at Home: Yes Safety Concerns: Feels Safe At This Time Childhood Exposure to Second-Hand Smoke: Yes Diet Comment: regular Dental Care, Regularly: No Physical Activity Frequency: Does not Exercise Seatbelt Use: sometimes Review of Systems Review of Systems: All systems reviewed & are unremarkable except as noted in HPI & below No fevers or chills, no abdominal pain, no chest pain, some mild shortness of breath Physical Exam Constitutional: + ill appearing and + lethargic; no acute distress (But is restless and lethargic) and not diaphoretic Eyes: + anicteric sclerae and EOM intact bilaterally ENMT: external ear and nose normal, oropharynx normal Neck: trachea midline, no thyromegaly Respiratory: normal respiratory effort; no cough Auscultation: + wheezes (Some expiratory wheezes); no crackles and no rhonchi Cardiovascular: RRR, no murmur, no edema Chest (Breasts): Chest: normal inspection of chest Gastrointestinal (Abdomen): Inspection/Auscultation: abdomen normal to inspection and normal bowel sounds; abdomen not distended Percussion/Palpation: abdomen soft and + hepatosplenomegaly; abdomen nontender Rectal Exam: + heme positive stool (As per ER physician's exam) Musculoskeletal: Extremities: extremities normal to inspection; no cyanosis and no clubbing Skin: no rashes, warm and dry Neurologic: moves all extremities (And is restless in the legs); no focal motor deficits, + not awake (Sleeping but wakes up and opens eyes to answer some questions) and not confused Lymphatic: no lymphedema Results & Data Results & Data ([facility]) Vital Signs (Past 12 Hours) Vital Signs Temp Pulse Resp BP Pulse Ox 03/20/20 13:40 36.9 C 87 15 184/86 H 98 03/20/20 13:10 36.8 C 87 21 181/93 H 97 03/20/20 13:01 87 20 96 03/20/20 13:00 87 18 182/84 H 97 03/20/20 12:56 86 17 185/86 H 96 03/20/20 12:55 36.8 C 86 19 185/86 H 95 03/20/20 12:50 86 20 96 03/20/20 12:41 36.6 C 84 20 177/90 H 94 03/20/20 12:40 85 21 94 03/20/20 12:38 85 20 177/90 H 94 03/20/20 12:37 84 24 195/124 H 94 03/20/20 12:31 83 21 03/20/20 12:30 83 19 184/77 H 03/20/20 12:20 79 18 03/20/20 12:10 79 19 03/20/20 12:01 77 16 168/59 H 03/20/20 12:00 77 19 03/20/20 11:50 77 16 03/20/20 11:43 74 20 03/20/20 11:34 75 20 158/75 H 03/20/20 10:00 36.4 C L 67 20 116/55 L 99 Laboratory Results 03/20/20 03/20/20 03/20/20 Range/Units 10:38 10:38 10:38 WBC (4.8-10.8) K/uL RBC (4.2-5.4) M/uL Hgb (12.0-16.0) g/dL Hct (37-47) % MCV (80-100) fL MCH (25-34) pg MCHC (32-36) g/dL RDW Std Deviation (36.4-46.3) fL RDW Coeff of Karina (11.5-14.5) % Plt Count (130-400) K/uL MPV (7.4-10.4) fL Immature Gran % (Auto) % Neut % (Auto) % Lymph % (Auto) % [place] % (Auto) % Eos % (Auto) % Baso % (Auto) % Neut # (Auto) (1.4-6.5) K/uL Lymph # (Auto) (1.2-3.4) K/uL [place] # (Auto) (0.11-0.59) K/uL Eos # (Auto) (0-0.5) K/uL Baso # (Auto) (0-0.2) K/uL Immature Gran # (Auto) (0.00-0.02) K/uL RBC Morphology PT (9.0-12.0) Seconds INR (0.9-1.1) APTT (21.0-31.0) Seconds PTT Ratio Sodium 147 H (136-145) mmol/L Potassium 5.7 H (3.5-5.1) mmol/L Chloride 122 H (98-107) mmol/L Carbon Dioxide 15 L (21-32) mmol/L Anion Gap 9.0 (3-11) BUN 85 H (7-18) mg/dl Creatinine 2.69 H (0.6-1.2) mg/dl Est Cr Clr Drug Dosing 18.9 ml/min Est GFR ( Amer) 21.0 Est GFR (Non-Af Amer) 18.1 BUN/Creatinine Ratio 31.7 H (10-20) Glucose 172 H (70-99) mg/dl Calcium 8.5 (8.5-10.1) mg/dl Phosphorus 5.1 H (2.5-4.9) mg/dl Magnesium 2.6 H (1.8-2.4) mg/dl Total Bilirubin 0.7 (0.2-1) mg/dl Direct Bilirubin 0.3 H (0-0.2) mg/dl AST 32 (15-37) U/L ALT 20 (12-78) U/L Alkaline Phosphatase 132 H (45-117) U/L Ammonia 208.9 H (11-32) umol/L Troponin I < 0.015 (0-0.045) ng/ml Total Protein 6.8 (6.4-8.2) gm/dl Albumin 2.5 L (3.4-5.0) gm/dl Globulin 4.3 H (2.5-4.0) gm/dl Albumin/Globulin Ratio 0.6 L (0.9-2) Lipase 274 (73-393) U/L Blood Type O Positive Antibody Screen NEGATIVE Crossmatch See Detail 03/20/20 03/20/20 Range/Units 10:38 10:38 WBC 2.81 L (4.8-10.8) K/uL RBC 1.99 L (4.2-5.4) M/uL Hgb 6.0 L* (12.0-16.0) g/dL Hct 18.4 L* (37-47) % MCV 92.5 (80-100) fL MCH 30.2 (25-34) pg MCHC 32.6 (32-36) g/dL RDW Std Deviation 56.9 H (36.4-46.3) fL RDW Coeff of Karina 17.0 H (11.5-14.5) % Plt Count 50 L (130-400) K/uL MPV 9.2 (7.4-10.4) fL Immature Gran % (Auto) 0.4 % Neut % (Auto) 68.0 % Lymph % (Auto) 22.4 % [place] % (Auto) 6.4 % Eos % (Auto) 2.8 % Baso % (Auto) 0.0 % Neut # (Auto) 1.91 (1.4-6.5) K/uL Lymph # (Auto) 0.63 L (1.2-3.4) K/uL [place] # (Auto) 0.18 (0.11-0.59) K/uL Eos # (Auto) 0.08 (0-0.5) K/uL Baso # (Auto) 0.00 (0-0.2) K/uL Immature Gran # (Auto) 0.01 (0.00-0.02) K/uL RBC Morphology Unremarkable PT 12.7 H (9.0-12.0) Seconds INR 1.2 H (0.9-1.1) APTT 32.1 H (21.0-31.0) Seconds PTT Ratio 1.2 Sodium (136-145) mmol/L Potassium (3.5-5.1) mmol/L Chloride (98-107) mmol/L Carbon Dioxide (21-32) mmol/L Anion Gap (3-11) BUN (7-18) mg/dl Creatinine (0.6-1.2) mg/dl Est Cr Clr Drug Dosing ml/min Est GFR ( Amer) Est GFR (Non-Af Amer) BUN/Creatinine Ratio (10-20) Glucose (70-99) mg/dl Calcium (8.5-10.1) mg/dl Phosphorus (2.5-4.9) mg/dl Magnesium (1.8-2.4) mg/dl Total Bilirubin (0.2-1) mg/dl Direct Bilirubin (0-0.2) mg/dl AST (15-37) U/L ALT (12-78) U/L Alkaline Phosphatase (45-117) U/L Ammonia (11-32) umol/L Troponin I (0-0.045) ng/ml Total Protein (6.4-8.2) gm/dl Albumin (3.4-5.0) gm/dl Globulin (2.5-4.0) gm/dl Albumin/Globulin Ratio (0.9-2) Lipase (73-393) U/L Blood Type Antibody Screen Crossmatch Diagnostic Findings CT of the abdomen/pelvis and chest x-ray as per HPI ECG Additional Comments: ECG with normal sinus rhythm, rate 70, no ischemic changes Code Status & VTE Plan Code Status Full code VTE Prophylaxis Plan VTE Prophylaxis will be ordered: Yes PG Care Time/CCT Total # of Minutes Spent Total Time Spent with Patient: Total time spent is greater than 50% in coordination of care (as documented) at patient's floor/unit and/or counseling patient: Coding Level of Care Code 85945 Initial Inpt Care Lvl 3 Diagnoses Acute blood loss anemia D62 GI bleed K92.2 Hyperkalemia E87.5 Hepatic encephalopathy K72.90 HENRIQUE (acute kidney injury) N17.9 Metabolic acidosis E87.2 Liver cirrhosis secondary to FOWLER K75.81; K74.60 Hypernatremia E87.0 Diabetic nephropathy associated with type 2 diabetes mellitus E11.21 Diabetes type 2, uncontrolled E11.65 Pancytopenia D61.818 Nocturnal hypoxemia G47.34 Obstructive sleep apnea G47.33 Hypertension I10 Hypertension type: essential hypertension Depression F32.9 Pulmonary hypertension I27.20 Mitral regurgitation I34.0 Aortic stenosis I35.0 Vitamin D deficiency E55.9 Psoriatic arthritis L40.50 Polyclonal gammopathy D89.0 GERD (gastroesophageal reflux disease) K21.9 Chronic kidney disease, stage III (moderate) N18.3 DVT prophylaxis Z29.9 (1) Hypertension Hypertension type: essential hypertension Qualified Code(s): I10 - Essential (primary) hypertension
[2020-03-20] MEDS ORDERED: ETOMIDATE 2 MG/ML 20 ML VIAL IV ONE (14:21)
[2020-03-20] MEDS ORDERED: PROPOFOL IV EMULSION 10 MG/ML 100 ML VIAL IV ONE (14:21)
[2020-03-20] MEDS ORDERED: MIDAZOLAM HCL 1 MG/ML 2ML VIAL ONE (14:43)
[2020-03-20] MEDS ORDERED: fentaNYL citrate 100 MCG/2 ML VIAL ONE (14:43)
[2020-03-20] MEDS ORDERED: ICU PROTOCOL FOR HYPERGLYCEMIA PRN (14:58)
--- NOTE | 2020-03-20 15:07 | Procedure Note ---
Procedure Note Date of Service March 20, 2020 INTUBATION PROCEDURE NOTE: Provider: Myles Garnett MD A time-out was completed verifying correct patient, procedure, site, positioning. Patient was evaluated and required intubation for altered mental status due to hepatic encephalopathy. Sedative agent used: 40 mg etomidate, 5 mL's propofol Paralysis agent used: None Verbal consent was obtained from the patient's spouse at the bedside. The patient was prepared in the appropriate fashion. Sedation was achieved utilizing etomidate and propofol. The patient was easily ventilated using [id number] to achieve adequate oxygenation. Using the [facility] video laryngoscope, direct laryngoscopy was performed. The cords were easily v isualized. A previously tested 7.5 endotracheal tube was placed and verified to be entering through the cords. This was secured in place. Balloon was inflated. Appropriate Colorimetric change was appreciated. Bilateral breath sounds were heard without air sounds in the abdomen. Post Intubation Chest X-ray pending Patient tolerated the procedure well and there were no immediate complications. Coding CPT Codes Resuscitation - Resuscitation: 30514 Endotracheal Intubation, emergency ([id number]) [facility] [place] Procedure Codes (Charges) Resuscitation Resuscitation: 35282 Endotracheal Intubation, emergency
--- NOTE | 2020-03-20 15:09 | Procedure Note ---
Procedure Note Date of Service March 20, 2020 CENTRAL LINE PROCEDURE NOTE: Procedure: Central Line Placement Provider: Myles Garnett MD Indication: Central Drug Administration, Poor Venous Access, Multiple Lab Draws Necessary, etc. Anesthesia: 3 mL's 1% lidocaine without epinephrine Site: Right internal jugular Verbal consent was obtained from the patient's prior to the procedure. The patient is obtunded and unable to provide her own consent A time-out was completed verifying correct patient, procedure, site, posit ioning, and implants(s) or special equipment if applicable. Patients right neck was cleansed and draped in the typical sterile fashion using Chloraprep. The Internal Jugular Vein and Carotid Artery were identified using ultrasound. The superficial tissue was anesthetized using 3 mL of 1% lidocaine without epinephrine under direct visualization with the ultrasound. After adequate anesthetization was achieved, the Internal Jugular vein was cannulated under direct ultrasound guidance using an introducer needle on a syringe. Good venous blood return was maintained prior to removal of syringe from introducer needle. Using Seldinger Technique, a guide wire was advanced through the introducer needle without resistance. The introducer needle was removed and ultrasound images were obtained of the guide wire within the Internal Jugular Vein and saved to the patients medical record. A small incision was made in penetrating fashion at the guide wire insertion site utilizing an 11 blade scalpel. An 8 Azeri introducer was prepared with a dilator through the introducer. This was threaded over the wire and into the vein. The dilator and wire were removed. Blood flow was obtained. The catheter was sutured in place and a sterile dressing applied. Post procedure x-ray pending Imaging was performed for ultrasound guidance however due to technical issues the images were not able to be saved to the medical record Coding CPT Codes Tubes, Drains, and Vasc Access - Tubes, Drains, and Vasc Access: [id number] Place catheter in vein superior or inferior vena cava ([id number]) Tubes, Drains, and Vasc Access - Tubes, Drains, and Vasc Access: [id number] Ultrasound Guidance For Vascular ([id number]) [facility] [place] Codes (Charges) Tubes, Drains, and Vasc Access Procedure 1: Tubes, Drains, and Vasc Access: [id number] Place catheter in vein superior or inferior vena cava Procedure 2: Tubes, Drains, and Vasc Access: [id number] Ultrasound Guidance For Vascular
[2020-03-20] MEDS ORDERED: FENTANYL BOLUS FROM BAG IV PRN (15:10)
[2020-03-20] MEDS ORDERED: MIDAZOLAM HCL 1 MG/ML 2ML VIAL IV PRN (15:10)
[2020-03-20] MEDS ORDERED: STAT IV Infusion **Titration per Protocol STA (15:10)
[2020-03-20] MEDS ORDERED: PROPOFOL BOLUS FROM BAG IV PRN (15:10)
[2020-03-20] MEDS ORDERED: DEXTROSE 50% 50 ML SYRINGE IV PRN (15:15)
[2020-03-20] MEDS ORDERED: GLUCOSE 10 TABS/TUBE PO PRN (15:15)
[2020-03-20] MEDS ORDERED: GLUCOSE 40% GEL 15 GM TUBE PO PRN (15:15)
[2020-03-20] MEDS ORDERED: GLUCAGON FOR INJ 1 MG VIAL IM PRN (15:15)
[2020-03-20] MEDS ORDERED: CARBOHYDRATES FOR HYPOGLYCEMIA PO PRN (15:15)
--- NOTE | 2020-03-20 15:18 | Critical Care Consultation ---
Date of Consultation March 20, 2020 Assessment & Plan (1) Hepatic encephalopathy: Impression: 64-year-old female with nonalcoholic steatohepatitis and advanced liver disease presenting now with probable upper GI bleed of unclear etiology (varices and peptic ulcer disease on the differential) as well as significant hepatic encephalopathy and acute kidney injury. Recommendations: 1. Hepatic encephalopathy: I had a long discussion with the patient's at bedside. I advised them that in her current state, it would be unlikely that endoscopy could be accomplished without intubating her. I would favor intubating her now given her degree of encephalopathy especially as the fact th at I cannot really treat her elevated ammonia level without placing an NG or OG tube and I am somewhat reluctant to do that until we can clarify the status of her varices. Therefore I recommend elective intubation rather than waiting for this to be emergent. This will also facilitate upper endoscopy. We will need to start lactulose and rifaximin once the patient can have enteric access placed. 2. Upper GI bleed: Differential as noted above. Continue Protonix and octreotide drips. Patient is currently receiving her second unit of packed cells. We will check serial crits and transfuse to try and maintain hemoglobin above 8. Central line was placed to allow for adequate access. Additional recommendations will be based on results of endoscopy. 3. Pancytopenia: Low platelets like related to markedly enlarged spleen. No indication for transfusion currently but will try and maintain platelets greater than 50,000. She is also demonstrating leukopenia which is likely secondary to her bone marrow suppression. She has been followed in oncology clinic for polyclonal gammopathy of unclear significance. Her anemia was felt to be due to chronic disease and she was receiving iron therapy in the outpatient setting. 4. Coagulopathy: Awaiting fibrinogen and calcium. INR is adequate. Will recheck in the morning. 5. Shoulder fracture: Unclear if this is chronic. The primary hospitalist service is apparently contacting orthopedics. 6. Acute kidney injury: The patient is followed at [facility] nephrology. Will check urine studies. She is certainly at risk for hepatorenal syndrome. Maintain blood pressure and euvolemic state. Patient is mildly hyperkalemic currently. We will try and correct acid-base status and use calcium as well. She may benefit from some Lasix. Repeat BMP will be assessed this afternoon. If kidney function deteriorates level low threshold for involving nephrology in the patient's care. Once the patient's bleeding issues have been stabilized, anticipate that we should be able to get her extubated after her metabolic processes and hepatic encephalopathy are corrected. Will need to consider enteric tube feeding if this looks like a prolonged course. (2) Metabolic acidosis: (3) HENRIQUE (acute kidney injury): (4) Hyperkalemia: (5) GI bleed: History of Present Illness Attending Physician: Mali Mejia MD History of Present Illness Asked by the hospitalist to assist in management this patient coming in with hematemesis, encephalopathy, and acute renal failure. History is obtained from discussion with the hospitalist as well as review the electronic medical record and discussion with the patient's who is at bedside. The patient is a 64-year-old female with a history of cirrhosis, likely attributable to nonalcoholic steatohepatitis although I do not see that a liver biopsy is been performed. She has been followed in the hepatology clinic at [facility]. She does have a history of grade 1 varices but it appears that her last endoscopy was performed about a year ago. She has been on chronic beta- maxwell therapy. She has had a history of anemia and also has polyclonal gammopathy of unclear significance. She has chronic kidney disease and is followed in the nephrology clinic. She also has multiple orthopedic issues. According to her , the patient has become increasingly encephalopathic over the last several days. She is on lactulose and rifaximin as an outpatient. This morning she had an episode of hematemesis. Her is unable to quantify the amount but does state that it was a phyllis to red color. She does have a history of prior peptic ulcer disease according to her but I cannot substantiate that in the electronic medical record. He does not give a history of excessive alcohol use or NSAID use. She is also had multiple loose stools which have been black and tarry. The patient was evaluated in the emergency room. She was found to be encephalopathic with an elevated ammonia level. She was also in acute renal failure. She was difficult IV stick and had several 20-gauge or smaller IVs placed. She received 1 unit of packed cells and the hospitalist was contacted to admit the patient. I was contacted by the hospitalist to evaluate the patient. Apparently GI had been consulted and they recommended continued resuscitation with plans to perform endoscopy in the next 24 hours, sooner should the patient deteriorate. I assessed the patient the emergency room. She is clearly encephalopathic. We do not have a blood gas to indicate her level of acid-base disturbance but her serum bicarb on her chemistry panel was only 15. She had not had a Collins placed and not had any work-up of her acute renal failure to this point. Fortunately, she was hemodynamically stable and actually slightly hypertensive. Allergies Allergy/AdvReac Type Severity Reaction Status Date / Time Sulfa (Sulfonamide Allergy Intermediate Rash Verified 03/20/20 14:49 Antibiotics) sulfamethoxazole Allergy Intermediate RASH Verified 03/20/20 14:49 trimethoprim Allergy Intermediate RASH Verified 03/20/20 14:49 Bactrim Allergy Unknown RASH Verified 08/17/14 08:01 amlodipine AdvReac Intermediate confusion Verified 03/20/20 11:43 adhesive tape AdvReac Mild ITCHING Verified 03/20/20 11:43 Home Medications Home Medications Medication Instructions Recorded Confirmed Type ferrous sulfate 325 mg (65 mg 325 mg PO BID tab 01/28/19 03/20/20 History iron) tablet acetaminophen [Tylenol Extra 500 mg PO Q6H PRN 10/04/19 03/20/20 History Strength] mupirocin 2 % topical ointment 1 appln TOP BID #22 gm 10/14/19 03/20/20 Rx nystatin 100,000 unit/gram topical 1 appln TOP BID #30 gm 10/14/19 03/20/20 Rx cream folic acid 1 mg tablet 1 mg PO BID #60 tab 11/10/19 03/20/20 Rx pen needle, diabetic 31 gauge x #100 ea 11/17/19 02/03/20 Rx 3/16" lactulose 20 gram/30 mL oral 45 ml PO BID ml 12/10/19 03/20/20 History solution insulin aspart U-100 100 unit/mL See Rx Instructions SQ TID #15 ml 12/11/19 03/20/20 Rx (3 mL) subcutaneous pen carvedilol 6.25 mg tablet 6.25 mg PO BID #60 tab 12/30/19 03/20/20 Rx hydroxyzine HCl 10 mg tablet 10 mg PO QID PRN #30 tab 12/30/19 03/20/20 Rx blood sugar diagnostic #200 ea 01/06/20 02/03/20 Rx rifaximin 550 mg tablet 550 mg PO BID #180 tab 01/12/20 03/20/20 Rx teriparatide 20 mcg/dose (600 20 mcg SQ QAM 02/03/20 03/20/20 History mcg/2.4 mL) subcutaneous pen injector ropinirole 2 mg tablet 2 mg PO HS #30 tab 03/08/20 03/20/20 Rx calcitriol 0.25 mcg PO 3XWK 03/20/20 03/20/20 History calcium carbonate-vitamin D3 1 tab PO QAM 03/20/20 03/20/20 History [Oyster Shell Calcium-Vit D3] furosemide 40 mg PO QAM 03/20/20 03/20/20 History insulin glargine [Basaglar KwikPen 15 units SUBCUT HS 03/20/20 03/20/20 History U-100 Insulin] mometasone 1 appln TOP QAM 03/20/20 03/20/20 History pantoprazole 40 mg PO QAM 03/20/20 03/20/20 History sodium bicarbonate 650 mg PO BID 03/20/20 03/20/20 History spironolactone 25 mg PO QAM 03/20/20 03/20/20 History Patient History Medical History Anxiety Cardiac murmur Diabetes type 2, uncontrolled Diabetic nephropathy associated with type 2 diabetes mellitus Diabetic peripheral neuropathy associated with type 2 diabetes mellitus Diverticular disease Duodenal ulcer Dysesthesia Esophageal varices Gastric ulcer GERD (gastroesophageal reflux disease) History of recent blood transfusion (~06/2019) Hypertension Liver cirrhosis Loss of protective sensation of skin of foot Nausea and vomiting after administration of anesthetic agent Osteoarthritis Pancytopenia Pleural effusion (Inactive) Pre-ulcerative corn or callous Psoriatic arthritis Pulmonary edema Restless leg syndrome Risk for falls Surgical History History of anesthesia reaction difficult to wake after bladder tack sx History of bilateral cataract extraction History of bladder surgery bladder tack History of colonoscopy History of esophagogastroduodenoscopy (EGD) multiple---last 06/22/19 Dr. Malena Marie at [facility] [place] History of hemiarthroplasty of right shoulder January 2018 post fracture History of repair of right rotator cuff History of revision of total shoulder arthroplasty (12/29/18) Right shoulder, 12/29/18 History of shoulder surgery (~11/2019) Had right total arthroplasty removed 11/2019 History of tooth extraction all teeth S/P ORIF (open reduction internal fixation) fracture R shoulder, January 2018 S/P shoulder surgery (11/18/19) R TSA removal, I&D, placement of abx spacer Family History Grandmother (Paternal) Family history of diabetes mellitus Father COPD (chronic obstructive pulmonary disease) Mother Hypertension Family/Other Cancer Sister Ovarian cancer Denies family history of Prostate cancer Myocardial infarction Breast cancer Colorectal cancer Social History Smoking Status: Former smoker Second Hand Exposure: No; Hx Alcohol Use: No Hx Substance Use: No Preferred Language: Welsh Communication Ability: Effective Visual Impairment: Limited Hearing Ability: Normal Gre Tutor Required: No Beliefs That Will Affect Care: None marital status: Current Living Situation: Spouse Current Living Situation Comment: Lives with and son current occupational status: retired Feels Safe at Home: Yes Childhood Exposure to Second-Hand Smoke: Yes Diet Comment: regular Dental Care, Regularly: No Physical Activity Frequency: Does not Exercise Seatbelt Use: sometimes Review of Systems Review of Systems: Unobtainable due to reduced consciousness Physical Exam Constitutional: + ill appearing and + lethargic; no acute distress (But is restless and lethargic) and not diaphoretic Eyes: + anicteric sclerae and EOM intact bilaterally ENMT: external ear and nose normal, oropharynx normal Neck: trachea midline, no thyromegaly Respiratory: normal respiratory effort; no cough Auscultation: + wheezes (Some expiratory wheezes); no crackles and no rhonchi Cardiovascular: RRR, no murmur, no edema Chest (Breasts): Chest: normal inspection of chest Gastrointestinal (Abdomen): Inspection/Auscultation: abdomen normal to inspect ion and normal bowel sounds; abdomen not distended Percussion/Palpation: abdomen soft and + hepatosplenomegaly; abdomen nontender Rectal Exam: + heme positive stool (As per ER physician's exam) Musculoskeletal: Extremities: extremities normal to inspection; no cyanosis and no clubbing Skin: no rashes, warm and dry Neurologic: moves all extremities (And is restless in the legs); no focal motor deficits, + not awake (Sleeping but wakes up and opens eyes to answer some questions) and not confused Lymphatic: no lymphedema Results & Data Results & Data ([facility]) Vital Signs (Past 12 Hours) Vital Signs Temp Pulse Resp BP Pulse Ox 03/20/20 14:36 81 14 100 03/20/20 14:05 183/78 H 99 03/20/20 14:01 88 15 97 03/20/20 14:00 89 17 177/79 H 97 03/20/20 13:50 89 14 98 03/20/20 13:41 88 15 184/86 H 98 03/20/20 13:40 36.9 C 89 18 184/86 H 98 03/20/20 13:31 88 19 97 03/20/20 13:30 88 16 169/104 H 98 03/20/20 13:20 88 22 96 03/20/20 13:11 88 21 181/93 H 96 03/20/20 13:10 36.8 C 86 20 181/93 H 97 03/20/20 13:01 87 20 96 03/20/20 13:00 87 18 182/84 H 97 03/20/20 12:56 86 17 185/86 H 96 03/20/20 12:55 36.8 C 86 19 185/86 H 95 03/20/20 12:50 86 20 96 03/20/20 12:41 36.6 C 84 20 177/90 H 94 03/20/20 12:40 85 21 94 03/20/20 12:38 85 20 177/90 H 94 03/20/20 12:37 84 24 195/124 H 94 03/20/20 12:31 83 21 03/20/20 12:30 83 19 184/77 H 03/20/20 12:20 79 18 03/20/20 12:10 79 19 03/20/20 12:01 77 16 168/59 H 03/20/20 12:00 77 19 03/20/20 11:50 77 16 03/20/20 11:43 74 20 03/20/20 11:34 75 20 158/75 H 03/20/20 10:00 36.4 C L 67 20 116/55 L 99 Laboratory Results 03/20/20 10:38 03/20/20 10:38 Diagnostic Findings Chest x-ray was independently reviewed. No evidence of cardiopulmonary disease. There is a fracture of the right shoulder just distal to the prosthesis. Unclear chronicity. CT the abdomen pelvis was performed. Varices were noted but minimal ascites. Cirrhotic appearing liver. Spleen is enlarged. Cholelithiasis and bilateral nephrolithiasis without significant hydronephrosis noted Coding Level of Care Code Critical Care 1st 30-74 mins Diagnoses Hepatic encephalopathy K72.90 Metabolic acidosis E87.2 HENRIQUE (acute kidney injury) N17.9 Hyperkalemia E87.5 GI bleed K92.2 Time Spent (min) 56
--- NOTE | 2020-03-20 15:19 | XRay Report ---
XR chest 1V portable CLINICAL HISTORY: Respiratory failure COMPARISON STUDY: March 20, 2020 FINDINGS: There has been interval placement of an endotracheal tube 24 mm above the vicki. The heart is borderline enlarged. There is elevation of interstitium suggesting mild pulmonary vascular conges tion/fluid overload. There is no lobar consolidation. Postsurgical changes involve the right shoulder .[ IMPRESSION: 1. Interval placement of an endotracheal tube 24 mm above the vicki 2. Interval development of mild pulmonary vascular congestion/fluid overload ACT 112: Negative or not required by law. Electronically signed by: Devon Walton M.D. 03/20/2020 3:18 PM
[2020-03-20 15:21] LABS: Base Excess VBG -11.2 mEq/L; Oxygen Saturation VBG 86.3 %; pH VBG 7.33 (7.36-7.41)
[2020-03-20 15:33] LABS: Fibrinogen 229 mg/dl (184-400)
[2020-03-20] MEDS ORDERED: SODIUM BICARB 8.4% INJ 50 MEQ/50 ML SYR IV ONE (15:45)
[2020-03-20] MEDS: propofoL 1,000 MG/100 ML VIAL IV SCH ×3 (15:45→23:38)
[2020-03-20] MEDS ORDERED: CALCIUM CHLORIDE 10% 1,000 MG in SODIUM CHLORIDE 0.9% 50 ML IV ONE (16:00)
[2020-03-20 16:27] LABS: Appearance Urine Cloudy (Clear); Bacteria Urine Automated 4+ (Negative); Bilirubin Urine Negative (Negative); Blood Urine 1+ (Negative); Color Urine Yellow; Epithelial Cell Urine Auto 20-30 /lpf (0-5); Glucose Urine UA Negative (Negative); Ketones Urine Negative (Negative); Leukocyte Esterase Urine Trace (Negative); Nitrite Urine Negative (Negative); Protein Urine Trace (Negative); Specific Gravity Urine 1.013 (1.000-1.030); Urobilinogen Urine Negative (Negative)
[2020-03-20] MEDS: fentaNYL DRIP 1,250 MCG/250 ML BAG IV SCH (16:28)
[2020-03-20 16:44] LABS: Creatinine Urine Random 39.7 mg/dl
[2020-03-20] MEDS ORDERED: SODIUM CHLORIDE 0.9% 1000ML 1,000 ML IV SCH (17:00)
[2020-03-20 19:21] LABS: Hematocrit (blood only) 22.3 % (37-47); Hemoglobin 7.3 g/dL (12.0-16.0); Mean Corpuscular Hemoglobin 29.8 pg (25-34); RDW Coefficient of Variation 17.1 % (11.5-14.5); RDW Standard Deviation 56.5 fL (36.4-46.3); Red Blood Count 2.45 M/uL (4.2-5.4); White Blood Count 2.34 K/uL (4.8-10.8)
[2020-03-20 19:25] LABS: Mean Corpuscular Hgb Conc 32.7 g/dL (32-36)
[2020-03-20 19:37] LABS: Albumin Level 2.2 gm/dl (3.4-5.0); Calcium 8.5 mg/dl (8.5-10.1); Creatinine Clr Calc Pharmacy 20.7 ml/min; Est GFR (African American) 23.5; Est GFR (Non-African American) 20.3; Potassium 5.5 mmol/L (3.5-5.1)
[2020-03-20 19:39] LABS: Mean Platelet Volume 9.4 fL (7.4-10.4); Platelet Count 44 K/uL (130-400); Platelet Estimate Decreased (Normal)
[2020-03-20 19:54] LABS: Albumin Globulin Ratio 0.6 (0.9-2); Bilirubin,Total 1.3 mg/dl (0.2-1); Total Protein 6.2 gm/dl (6.4-8.2)
[2020-03-20] MEDS: INSULIN GLARGINE SOLOSTAR 100 UNITS/ML 3 ML PEN SQ SCH (21:05)
[2020-03-21] MEDS: PANTOprazole 40 MG in DEXTROSE 5% 100 ML IV SCH ×5 (02:10→21:40)
[2020-03-21 04:18] LABS: Hematocrit (blood only) 24.2 % (37-47); Mean Corpuscular Hemoglobin 29.7 pg (25-34); Mean Corpuscular Hgb Conc 33.1 g/dL (32-36); RDW Coefficient of Variation 17.5 % (11.5-14.5); RDW Standard Deviation 57.4 fL (36.4-46.3); Red Blood Count 2.69 M/uL (4.2-5.4); White Blood Count 2.37 K/uL (4.8-10.8)
[2020-03-21 04:26] LABS: INR 1.3 (0.9-1.1); Prothrombin Time 13.3 Seconds (9.0-12.0)
[2020-03-21 04:38] LABS: BUN Creatinine Ratio 30.6 (10-20); Calcium 7.9 mg/dl (8.5-10.1); Creatinine Clr Calc Pharmacy 20.2 ml/min; Est GFR (African American) 22.7; Est GFR (Non-African American) 19.6; Magnesium 2.4 mg/dl (1.8-2.4); Potassium 5.2 mmol/L (3.5-5.1)
[2020-03-21 04:41] LABS: Albumin Globulin Ratio 0.5 (0.9-2); Bilirubin,Total 1.2 mg/dl (0.2-1); Globulin 3.8 gm/dl (2.5-4.0); Phosphorus 4.5 mg/dl (2.5-4.9); Total Protein 5.8 gm/dl (6.4-8.2)
[2020-03-21 04:47] LABS: Mean Platelet Volume 9.6 fL (7.4-10.4); Platelet Count 41 K/uL (130-400)
[2020-03-21] MEDS: propofoL 1,000 MG/100 ML VIAL IV SCH ×3 (04:48→15:44)
[2020-03-21 05:03] LABS: Basophils # (auto) 0.01 K/uL (0-0.2); Basophils % (auto) 0.4 %; Eosinophils # (auto) 0.08 K/uL (0-0.5); Eosinophils % (auto) 3.4 %; Immature Granulocytes # (auto) 0.01 K/uL (0.00-0.02); Immature Granulocytes % (auto) 0.4 %; Lymphocytes # (auto) 0.75 K/uL (1.2-3.4); Lymphocytes % (auto) 31.6 %; Monocytes # (auto) 0.24 K/uL (0.11-0.59); Monocytes % (auto) 10.1 %; Neutrophils # (auto) 1.28 K/uL (1.4-6.5); Neutrophils % (auto) 54.1 %
[2020-03-21 05:42] LABS: iSTAT Allen Test Pass; iSTAT Art Bld Gas pCO2 Correct 21 mmHg (35-46); iSTAT Art Bld Gas pH Corrected 7.395 (7.35-7.45); iSTAT Arterial Blood Gas HCO3 13 meg/L (19-24); iSTAT Arterial Blood Gas pCO2 23 mmHg (35-46); iSTAT Arterial Blood Gas pH 7.38 (7.35-7.45); iSTAT Arterial Blood Gas pO2 141 mmHg (80-95); iSTAT Arterial Blood Gas pO2 C 133; iSTAT Carbon Dioxide 14 mmol/L (24-31); iSTAT FiO2 30 %; iSTAT Hematocrit 20 % (37-47); iSTAT Hemoglobin 6.8 g/dl (12.0-16.0); iSTAT Site L Radial; iSTAT Sodium 148 mmol/L (135-144)
[2020-03-21] MEDS ORDERED: SODIUM CHLORIDE 0.9% 250 ML IV PRN (06:29)
[2020-03-21] MEDS: SODIUM CHLORIDE 0.45 % 1,000 ML IV SCH (06:38)
[2020-03-21] MEDS: OCTREOTIDE ACETATE 500 MCG in 0.9 % SODIUM CHLORIDE 100 ML IV SCH ×2 (06:47→15:44)
--- NOTE | 2020-03-21 08:05 | Critical Care Progress Note ---
Date of Service March 21, 2020 Assessment & Plan (1) Acute GI bleeding: Reason Critically Ill: 64 yo F PMHx MAE cirrhosis with portal HTN and esophageal varices, DM2, CKD III, chronic pancytopenia, splenomegaly, chronic metabolic acidosis on bicarbonate, GERD and PUD, HTN, psoriatic arthritis who presented with bloody emesis and melena and who was admitted for acute GIB with symptomatic anemia. Neuro - [facility] ICU: not performed due to sedation Sedation: Propofol 35mcg Analgesia: Fentanyl 50mcg Metabolic/Hepatic encephalopathy: - On arrival with altered mental status, was intubated electively for airway protection and in anticipation of EGD. - With elevated ammonia to 200 on arrival, decreased to 117 without intervention today. - History of chronic metabolic acidosis on bicarbonate therapy. - ABG 7.38/23/141/13 -> currently on vent as below. - OG tube placed and location confirmed with KUB. - Will resume home rifaximin 550mg BID (crush tablets per Pharmacy), lactulose 30mg BID via OG tube. - Repeat ammonia level and ABG AM. - For SBT tomorrow AM. Cardiac - - Bradycardia this AM in the 50s, no acute events on telemetry. - No active cardiac concerns. - Maintain MAP >65. Respiratory - Acute hypoxemic respiratory failure: - Patient with respiratory failure and bilateral consolidations on CT chest. No signs suggestive of PE. - Patient is intubated with AC volume control. - FiO2 30%, backup RR 14, PEEP 5. SpO2 100%. - With dark red/brown oral secretions. - CXR 03/20 with interval development of mild pulmonary vascular congestion/fluid overload. - COVID 19 test pending, though this is unlikely given patient with minimal travel out of her house and few visitors. - Continue intubation, sedation for now. SBT tomorrow AM. GI - Liver cirrhosis 2/2 MAE: - History of, on chronic lactulose and rifaximin therapy for hyperammonemia, though it is unclear if the patient was taking these medications at home. - EGD 2018: Patient with a history of non-bleeding grade 1 esophageal varices, portal hypertensive gastropathy. - With elevated ammonia to 200 on arrival, decreased to 117 without intervention today. - Resume rifaximin, lactulose via OG tube as above. Will transition to PO when patient extubated and tolerating PO. Acute GIB: - Likely 2/2 PUD vs. varices. - Prior EGD as above. Most recent colonoscopy 10/21/19: diverticulosis and internal hemorrhoids. - Hgb on arrival 6.0, has received a total of 3u PRBCs, last Hgb 8.0. - EGD this afternoon showed Grade 2 esophageal varices without acute bleed, moderate-sized gastric AVM, and portal gastropathy. - Continue Protonix and Octreotide drips. - Have started Rocephin 2g IV for a total of 7 days. RENAL/LYTES - Hypernatremia, Hyperkalemia: - BMP today: Na 151 ->149, K 5.2 -> 4.9, Phos 4.5, Mg 2.4. - Replace lytes as needed. - Diuril 500mg IV x1 to potentiate hyponatremia. - Repeat BMP AM. HENRIQUE on CKD: - Patient with baseline creatinine ~1.8. - Creatinine 2.65 on arrival -> 2.59 today despite fluid resuscitation. - FeNa calculated at 3.2%. - Possible etiologies include hepatorenal syndrome, ATN 2/2 ischemia from acute blood loss. - Continue to optimize renal perfusion with IVF, blood products as needed. - Avoid nephrotoxins. - If no continued improvement with IVF and 3u PRBCs will consider nephrology consult. - ? UTI: - UCx growing gram negative bacilli with >100,000 CFU. - Rocephin 2g IV q24h. - Patient without urinary complaints prior to arrival, however with significant AMS so unclear if symptomatic. - Strict Is/Os. ENDO - - BSG range 114-172 over 24 hours while NPO and intubated. - Lantus 15u daily with SSI. HEME - Pancytopenia: - Hgb on arrival 6.0 -> 8.0 -> 8.1 following a total of 3u PRBCs. - History of iron deficiency anemia requiring regular iron infusions, thought to be 2/2 chronic disease. - Likely also with chronic bone marrow suppression 2/2 liver disease. 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 - Plts 41 this AM; now s/p 1u plt transfusion. Hx of splenomegaly with recent CTAP showing spleen size 18cm; likely with splenic sequestration. - Holding anticoagulation in the setting of acute GIB causing symptomatic anemia. - Continue to replete blood products as needed to maintain Hgb >8.0. - Repeat CBC AM. - Plt level pending. - EGD today as above. ID - Bacteruria: - Patient with bacteruria as above. - Afebrile, continue to monitor. - Rocephin 2g IV q24h given cirrhosis and GIB, as well as bacteruria. LINES/IV ACCESS - - PIVs intact bilateral UE. - R IJ in place, for removal vs. replacement later today. DVT PROPHYLAXIS - - Contraindicated in the setting of acute GIB. Thank you for allowing us to participate in this patient's care. Please refer to Dr. Duckworth's documentation for any further recommendations. (2) Symptomatic anemia: (3) Acute on chronic renal insufficiency: (4) Hyperammonemia: (5) Metabolic acidosis: (6) DVT prophylaxis: (7) Hepatic encephalopathy: (8) Hyperkalemia: (9) Hypernatremia: (10) Acute blood loss anemia: (11) Diabetic nephropathy associated with type 2 diabetes mellitus: (12) Diabetes type 2, uncontrolled: (13) Depression: (14) Hypertension: (15) Iron deficiency anemia: (16) 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: (17) Obstructive sleep apnea: (18) Pancytopenia: (19) CHF (congestive heart failure): (20) Mitral regurgitation: (21) Peptic ulcer disease: (22) Dyslipidemia: (23) GERD (gastroesophageal reflux disease): (24) Chronic kidney disease, stage III (moderate): Admission and Anticipated Discharge Date Admission Date: March 20, 2020 Supervising Physician Co-Signing Physician Notes Dr. Medina was resident physician during care of patient. I separately evaluated patient for constantino portions of the history and the exam. I was present during the critical portion of medical decision making, and I discussed the case with the resident. I generally agree with the findings and plan. Patient was discussed in multidisciplinary rounds. Awaiting EGD today, will move towards extubation once EGD completed. Subjective Patient is intubated and does not respond to verbal commands or painful stimuli. Overnight patient without acute events. For EGD today. Review of Systems Review of Systems: Unobtainable due to reduced consciousness Physical Exam Physical Exam: 64 yo F Constitutional: + ill appearing; no acute distress Eyes: + anicteric sclerae and PERRL No conjunctival injection ENMT: external ear and nose normal, oropharynx normal Visualized nurse suction dark red/brown sputum from patient's mouth during physical exam Head AT/NC No perioral cyanosis Neck: trachea midline, no thyromegaly R internal jugular central line present, clean dry and intact Respiratory: normal respiratory effort Auscultation: + wheezes (Expiratory); no crackles and no rhonchi On mechanical ventilator on volume AC, Tv 350 RR 22 (set to 14) saturating to 100% Cardiovascular: Rate/Rhythm: regular rate (bradycardic to 50s) and regular rhythm Heart Sounds: + murmur (2/6 blowing systolic murmur throughout) weak pulses DP and PT bilaterally symmetric radial pulses bilaterally No peripheral cyanosis Chest (Breasts): Chest: normal inspection of chest Gastrointestinal (Abdomen): Inspection/Auscultation: abdomen normal to inspection and normal bowel sounds; abdomen not distended Percussion/Palpation: abdomen soft and + hepatosplenomegaly Musculoskeletal: Extremities: extremities normal to inspection; no cyanosis and no clubbing Skin: no rashes, warm and dry R IJ as above R hand peripheral line C/D/I L hand peripheral line C/D/I Neurologic: PERRL Patient is intubated and sedated Does not respond to voice or painful stimuli Patellar, plantar, and biceps DTRs present and symmetric bilaterally. Normal Babinski. RASS -4 Psychiatric: patient intubated and sedated Genitourinary: hammond draining clear yellow urine Lymphatic: no lymphadenopathy and no lymphedema Results & Data Results & Data ([facility]) Vital Signs (Past 12 Hours) Vital Signs Temp Pulse Resp BP Pulse Ox 03/21/20 07:10 58 L 22 100 03/21/20 06:14 35.6 C L 59 L 16 141/69 H 97 03/21/20 06:00 35.6 C L 57 L 100 03/21/20 05:45 35.6 C L 56 L 100 03/21/20 05:30 35.6 C L 57 L 100 03/21/20 05:16 35.6 C L 56 L 122/56 L 100 03/21/20 05:15 35.6 C L 56 L 100 03/21/20 05:00 35.6 C L 57 L 100 03/21/20 04:46 35.6 C L 58 L 136/63 100 03/21/20 04:45 35.6 C L 59 L 100 03/21/20 04:30 35.6 C L 60 100 03/21/20 04:16 35.6 C L 60 144/62 H 100 03/21/20 04:15 35.6 C L 59 L 100 03/21/20 04:00 35.6 C L 57 L 100 03/21/20 03:46 35.6 C L 57 L 113/53 L 100 03/21/20 03:45 35.6 C L 57 L 100 03/21/20 03:40 57 L 23 100 03/21/20 03:30 35.6 C L 57 L 100 03/21/20 03:16 35.7 C L 58 L 149/62 H 100 03/21/20 03:15 35.7 C L 59 L 100 03/21/20 03:00 35.7 C L 60 100 03/21/20 02:46 35.7 C L 59 L 132/57 L 100 03/21/20 02:45 35.7 C L 59 L 100 03/21/20 02:30 35.7 C L 60 100 03/21/20 02:16 35.8 C L 60 148/63 H 100 03/21/20 02:15 35.7 C L 60 100 03/21/20 02:00 35.8 C L 59 L 100 03/21/20 01:46 35.8 C L 59 L 131/57 L 100 03/21/20 01:45 35.8 C L 59 L 100 03/21/20 01:31 35.9 C L 59 L 100 03/21/20 01:16 35.9 C L 60 128/56 L 100 03/21/20 01:01 35.9 C L 62 100 03/21/20 00:46 36.0 C L 61 136/60 100 03/21/20 00:31 36.0 C L 61 100 03/21/20 00:16 36.1 C L 63 161/76 H 100 03/21/20 00:01 36.1 C L 63 100 03/20/20 23:55 66 14 100 03/20/20 23:51 36.1 C L 63 158/78 H 100 03/20/20 23:46 36.1 C L 65 158/78 H 03/20/20 23:31 36.2 C L 62 03/20/20 23:16 36.2 C L 63 133/55 L 03/20/20 23:00 36.3 C L 62 03/20/20 22:46 36.3 C L 63 134/60 03/20/20 22:45 36.4 C L 64 03/20/20 22:30 36.4 C L 66 03/20/20 22:16 36.4 C L 67 143/63 H 03/20/20 22:15 36.4 C L 67 03/20/20 22:00 36.5 C 68 03/20/20 21:45 36.5 C 69 03/20/20 21:30 36.5 C 67 03/20/20 21:20 36.5 C 67 14 134/61 95 03/20/20 21:16 36.5 C 67 134/61 03/20/20 21:15 36.5 C 67 03/20/20 21:00 36.6 C 67 03/20/20 20:55 68 14 03/20/20 20:46 36.6 C 67 136/60 03/20/20 20:45 36.6 C 67 03/20/20 20:30 36.5 C 72 03/20/20 20:16 36.5 C 70 155/64 H 03/20/20 20:15 36.5 C 73 100 Critical Care Time Critical Care Time: Yes Total Critical Care Time: 40 I have personally spent 40 minutes of critical care time in the direct management of this patient. This is a life/limb threatening event. This includes time spent evaluating patient, direct bedside care, chart review, placing orders, interpretation of diagnostic studies, discussion with consultants, patient, and/or family members regarding treatment decisions, as well as other required patient management activities. This time is exclusive of all separately billable procedures, and teaching time and separate from and in addition to any other critical care service time. Resident Activity Tracking Resident Involvement: Resident Care Provided Care Provided: Adult Hospital Medicine (1) CHF (congestive heart failure) Heart failure chronicity: acute Heart failure type: unspecified Qualified Code(s): I50.9 - Heart failure, unspecified (2) Iron deficiency anemia Iron deficiency anemia type: other iron deficiency Qualified Code(s): D50.8 - Other iron deficiency anemias (3) Hypertension Hypertension type: essential hypertension Qualified Code(s): I10 - Essential (primary) hypertension
--- NOTE | 2020-03-21 09:55 | Gastrointestinal Consultation ---
Date of Consultation March 21, 2020 Assessment & Plan (1) Acute GI bleeding: Ms. Sherman is a 64 yr old female with MAE cirrhosis with grade I EV who experienced melena, acute blood loss anemia (Hb 6 + 3 units of platelets->8), BUN 77. This is suggestive of an UGI bleed from portal hypertensive gastropathy and/or esophageal variceal bleeding. Plan: 1. EGD today in the OR. 2. Continue Protonix and Octreotide drips. 3. Monitor outputs. 4. Spoke with who gave informal consent for EGD and will be arriving after lunch to provide formal consent. 5. Further recommendations to follow the EGD. No plans for repeating colonoscopy at this time because recent colonoscopy 4 months ago without lesions/polpys. Attg add: I interviewed and examined pt, reviewed chart and labs. Pt admit with cirrhosis, prior g1 varices now admit with melena and HE. Agree with PPI, Octreotide, abx. X fuse for Hgb < 7. EGD today. Present on Admission?: Yes (2) 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: Present on Admission?: Yes History of Present Illness Reason for Consultation: UGI bleed Requesting Physician: Dr. Mejia Attending Physician: Eitan Valencia, History of Present Illness Ms. Angela Sherman is a 64 yr old female pt of Dr. Alonso with a hx of polyclonal gammopathy, DM-2 with neuropathy, sleep apnea. She is followed by Dr. Silver for MAE cirrhosis with grade I EV (on pantoprazole, prior hepatic encephalopathy (on lactulose and rifaximin), ascites (on lasix 80/Spironolatone 50 daily, held since arrival). Yesterday, morning, she passed about 5 loose black and red BMs between 8 and 9 AM and was brought by her to the ED. Around the time of arrival, she became confused, weak. Some notes mention that she has been unable to get her meds due to cost, but I spoke with her who states that she has been on all her medications, that initially the rifaximin was denied but afer prior auth, was obtained and she is taking this, her diuretics and Protonix regularly. On arrival, Hb 6 and BUN 85. She was intubated, sedated (propofol drip), is Protonix and Octreotide drips. Her nurse tells me that she is passing small smears of black loose stool. BP s 94/66 and HR 56. This morning's Hb is 8 (after 3 units of RBCs), platelets are 41 and she is receiving a unit of platelets, BUN is 77. On exam, abd is soft, non distended. Most recent EGD was Jun 2119 for UGI bleeding with findings of non bleeding Grade I EV and portal hypertensive gastropathy. Most recent colonoscopy was by Dr. Llamas 10/21/19: diverticulosis and internal hemorrhoids. Allergies Allergy/AdvReac Type Severity Reaction Status Date / Time Sulfa (Sulfonamide Allergy Intermediate Rash Verified 03/20/20 14:49 Antibiotics) sulfamethoxazole Allergy Intermediate RASH Verified 03/20/20 14:49 trimethoprim Allergy Intermediate RASH Verified 03/20/20 14:49 Bactrim Allergy Unknown RASH Verified 08/17/14 08:01 amlodipine AdvReac Intermediate confusion Verified 03/20/20 11:43 adhesive tape AdvReac Mild ITCHING Verified 03/20/20 11:43 Home Medications Home Medications Medication Instructions Recorded Confirmed Type ferrous sulfate 325 mg (65 mg 325 mg PO BID tab 01/28/19 03/20/20 History iron) tablet acetaminophen [Tylenol Extra 500 mg PO Q6H PRN 10/04/19 03/20/20 History Strength] mupirocin 2 % topical ointment 1 appln TOP BID #22 gm 10/14/19 03/20/20 Rx nystatin 100,000 unit/gram topical 1 appln TOP BID #30 gm 10/14/19 03/20/20 Rx cream folic acid 1 mg tablet 1 mg PO BID #60 tab 11/10/19 03/20/20 Rx pen needle, diabetic 31 gauge x #100 ea 11/17/19 02/03/20 Rx 3" lactulose 20 gram/30 mL oral 45 ml PO BID ml 12/10/19 03/20/20 History solution insulin aspart U-100 100 unit/mL See Rx Instructions SQ TID #15 ml 12/11/19 03/20/20 Rx (3 mL) subcutaneous pen carvedilol 6.25 mg tablet 6.25 mg PO BID #60 tab 12/30/19 03/20/20 Rx hydroxyzine HCl 10 mg tablet 10 mg PO QID PRN #30 tab 12/30/19 03/20/20 Rx blood sugar diagnostic #200 ea 01/06/20 02/03/20 Rx rifaximin 550 mg tablet 550 mg PO BID #180 tab 01/12/20 03/20/20 Rx teriparatide 20 mcg/dose (600 20 mcg SQ QAM 02/03/20 03/20/20 History mcg/2.4 mL) subcutaneous pen injector ropinirole 2 mg tablet 2 mg PO HS #30 tab 03/08/20 03/20/20 Rx calcitriol 0.25 mcg PO 3XWK 03/20/20 03/20/20 History calcium carbonate-vitamin D3 1 tab PO QAM 03/20/20 03/20/20 History [Oyster Shell Calcium-Vit D3] furosemide 40 mg PO QAM 03/20/20 03/20/20 History insulin glargine [Basaglar KwikPen 15 units SUBCUT HS 03/20/20 03/20/20 History U-100 Insulin] mometasone 1 appln TOP QAM 03/20/20 03/20/20 History pantoprazole 40 mg PO QAM 03/20/20 03/20/20 History sodium bicarbonate 650 mg PO BID 03/20/20 03/20/20 History spironolactone 25 mg PO QAM 03/20/20 03/20/20 History Patient History Medical History Anxiety Cardiac murmur Diabetes type 2, uncontrolled Diabetic nephropathy associated with type 2 diabetes mellitus Diabetic peripheral neuropathy associated with type 2 diabetes mellitus Diverticular disease Duodenal ulcer Dysesthesia Esophageal varices Gastric ulcer GERD (gastroesophageal reflux disease) History of recent blood transfusion (~06/2019) Hypertension Liver cirrhosis Loss of protective sensation of skin of foot Nausea and vomiting after administration of anesthetic agent Osteoarthritis Pancytopenia Pleural effusion (Inactive) Pre-ulcerative corn or callous Psoriatic arthritis Pulmonary edema Restless leg syndrome Risk for falls Surgical History History of anesthesia reaction difficult to wake after bladder tack sx History of bilateral cataract extraction History of bladder surgery bladder tack History of colonoscopy History of esophagogastroduodenoscopy (EGD) multiple---last 06/22/19 Dr. Malena Marie at [facility] History of hemiarthroplasty of right shoulder January 2018 post fracture History of repair of right rotator cuff History of revision of total shoulder arthroplasty (12/29/18) Right shoulder, 12/29/18 History of shoulder surgery (~11/2019) Had right total arthroplasty removed 11/2019 History of tooth extraction all teeth S/P ORIF (open reduction internal fixation) fracture R shoulder, January 2018 S/P shoulder surgery (11/18/19) R TSA removal, I&D, placement of abx spacer Family History Grandmother (Paternal) Family history of diabetes mellitus Father COPD (chronic obstructive pulmonary disease) Mother Hypertension Family/Other Cancer Sister Ovarian cancer Denies family history of Prostate cancer Myocardial infarction Breast cancer Colorectal cancer Social History Smoking Status: Former smoker Second Hand Exposure: No; Hx Alcohol Use: No Hx Substance Use: No Preferred Language: Austrian Communication Ability: Effective Visual Impairment: Limited Hearing Ability: Normal 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 GI ROS obtained by phone from "Benito" (Nathaniel Sherman). See HPI, otherwise (-). Physical Exam Constitutional: well developed, well nourished and + acute distress mechanically ventilated, sedated VS with mild hypotension and mild bradycardia Eyes: PERRL, conjunctivae normal, anicteric sclerae ENMT: external ear and nose normal, oropharynx normal Neck: trachea midline, no thyromegaly Respiratory: normal respiratory effort, lungs clear to auscultation Cardiovascular: RRR, no murmur, no edema Gastrointestinal (Abdomen): normal bowel sounds, soft, nontender, no hepat osplenomegaly Skin: no rashes, warm and dry dressings on heals Neurologic: sedated Psychiatric: sedated Lymphatic: no cervical or axillary lymphadenopathy Results & Data ([facility]) Vital Signs (Past 12 Hours) Vital Signs Temp Pulse Resp BP Pulse Ox 03/21/20 08:31 35.6 C L 56 L 99 03/21/20 08:17 35.5 C L 61 94/66 L 92 03/21/20 08:01 35.6 C L 57 L 100 03/21/20 07:46 35.6 C L 58 L 109/53 L 100 03/21/20 07:31 35.6 C L 56 L 100 03/21/20 07:16 35.6 C L 59 L 129/63 100 03/21/20 07:10 58 L 22 100 03/21/20 06:14 35.6 C L 59 L 16 141/69 H 97 03/21/20 06:00 35.6 C L 57 L 100 03/21/20 05:45 35.6 C L 56 L 100 03/21/20 05:30 35.6 C L 57 L 100 03/21/20 05:16 35.6 C L 56 L 122/56 L 100 03/21/20 05:15 35.6 C L 56 L 100 03/21/20 05:00 35.6 C L 57 L 100 03/21/20 04:46 35.6 C L 58 L 136/63 100 03/21/20 04:45 35.6 C L 59 L 100 03/21/20 04:30 35.6 C L 60 100 03/21/20 04:16 35.6 C L 60 144/62 H 100 03/21/20 04:15 35.6 C L 59 L 100 03/21/20 04:00 35.6 C L 57 L 100 03/21/20 03:46 35.6 C L 57 L 113/53 L 100 03/21/20 03:45 35.6 C L 57 L 100 03/21/20 03:40 57 L 23 100 03/21/20 03:30 35.6 C L 57 L 100 03/21/20 03:16 35.7 C L 58 L 149/62 H 100 03/21/20 03:15 35.7 C L 59 L 100 03/21/20 03:00 35.7 C L 60 100 03/21/20 02:46 35.7 C L 59 L 132/57 L 100 03/21/20 02:45 35.7 C L 59 L 100 03/21/20 02:30 35.7 C L 60 03/21/20 02:16 35.8 C L 60 148/63 H 03/21/20 02:15 35.7 C L 60 03/21/20 02:00 35.8 C L 59 L 03/21/20 01:46 35.8 C L 59 L 131/57 L 03/21/20 01:45 35.8 C L 59 L 03/21/20 01:31 35.9 C L 59 L 03/21/20 01:16 35.9 C L 60 128/56 L 03/21/20 01:01 35.9 C L 62 03/21/20 00:46 36.0 C L 61 136/60 03/21/20 00:31 36.0 C L 61 03/21/20 00:16 36.1 C L 63 161/76 H 03/21/20 00:01 36.1 C L 63 03/20/20 23:55 66 14 03/20/20 23:51 36.1 C L 63 158/78 H 03/20/20 23:46 36.1 C L 65 158/78 H 03/20/20 23:31 36.2 C L 62 03/20/20 23:16 36.2 C L 63 133/55 L 03/20/20 23:00 36.3 C L 62 03/20/20 22:46 36.3 C L 63 134/60 03/20/20 22:45 36.4 C L 64 03/20/20 22:30 36.4 C L 66 03/20/20 22:16 36.4 C L 67 143/63 H 03/20/20 22:15 36.4 C L 67 03/20/20 22:00 36.5 C 68 100 Laboratory Results WBC 2, Hb 8, Hct 24, platelets 41, Na 148, K 5, BN 77, Cr 2.52, Glucose 121 Diagnostic Findings Non contrast Ct abd/pelvis: 1 . Cirrhosis with evidence of portal hypertension with splenomegaly and varices 2. No evidence of bowel obstruction. No evidence of free air 3. Normal appendix. No evidence of acute diverticulitis 5. Mild adenopathy possibly reactive 6. Cholelithiasis 7. Bilateral nephrolithiasis. No ureteral or bladder calculi identified 8. Fat-containing lower left anterior abdominal wall hernia
[2020-03-21] MEDS ORDERED: CHLOROTHIAZIDE SODIUM 500 MG in DEXTROSE 5% 50 ML IV STA (10:09)
--- NOTE | 2020-03-21 10:54 | Medical Student H&P ---
Date of Service March 21, 2020 Assessment & Plan (1) Acute GI bleeding: Agnela is a 64 F with a PMHx MAE cirrhosis with portal HTN and esophageal varices, DM2, CKD III, chronic pancytopenia, splenomegaly, chronic metabolic acidosis on bicarbonate, GERD and PUD, HTN who presented with bloody emesis and melena. She was admitted for evaluation of an Acute GI bleed with symptomatic anemia, HENRIQUE, and hepatic encephalopathy. Differential: Variceal bleed, Peptic Ulcer disease, AVM, Diverticulosis, gastritis, IBD, malignancy Plan: Continue protonix and octeotide drip. EGD later today. Serial crits to evaluate H/H, maintain hemoglobin above 8. Additional recommendations to be made later today based on EGD. (2) Symptomatic anemia: Monitor H/H. Give packed RBC as needed however watch for HTN due to possible varices. (3) Acute on chronic renal insufficiency: (4) Hyperammonemia: Given Lactulose (5) Metabolic acidosis: Secondary to HENRIQUE volume depletion. Plan: Given IV NS, monitor for changes. Repeat BMP daily. Consult nephrology if no improvement. (6) DVT prophylaxis: Plan: No DVT prophylaxis due to GI bleed (7) Hepatic encephalopathy: Plan: NG tube placed, OG tube placed. Started on lactulose and rifaximin. (8) Hyperkalemia: Secondary to acute kidney injury Potassium 5.7 -Given volume resuscitation Serial BMP (9) Hypernatremia: As above, may be related to volume loss Plan: Follow BMP (10) Acute blood loss anemia: -Check CBC serially (11) Diabetic nephropathy associated with type 2 diabetes mellitus: Noted (12) Diabetes type 2, uncontrolled: Continue Lantus and NovoLog Blood glucose here is acceptable (13) Depression: Noted Not currently on medication for this (14) Hypertension: Hypertensive currently -Holding home carvedilol, diuretics because of GI bleeding Follow blood pressures Hypertension type: essential hypertension Qualified Code(s): I10 - Essential (primary) hypertension (15) Iron deficiency anemia: Iron deficiency anemia type: other iron deficiency Qualified Code(s): D50.8 - Other iron deficiency anemias (16) 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: As above, with portal hypertension -Hold home carvedilol in case of drop in blood pressure from acute GI bleeding -Holding home diuretics for now Octreotide drip as above (17) Obstructive sleep apnea: Wears 2 L nasal cannula at nighttime (18) Pancytopenia: Secondary to cirrhosis and acute on chronic anemia Plan: Follow CBC. No evidence of transfusion needed. (19) CHF (congestive heart failure): Heart failure chronicity: acute Heart failure type: unspecified Qualified Code(s): I50.9 - Heart failure, unspecified (20) Mitral regurgitation: Mild on most recent echocardiogram (21) Peptic ulcer disease: (22) Dyslipidemia: (23) GERD (gastroesophageal reflux disease): Holding home p.o. Protonix and doing Protonix drip for now (24) Chronic kidney disease, stage III (moderate): Follows with nephrology, baseline creatinine 1.8 as above -Avoid nephrotoxins -renally dose meds when appropriate -follow BMP History of Present Illness Primary Care Provider: Rocío Alonso DO Gaffney is a 64 yo female with a history of Iron def anemia, MAE cirhorsus controlled with rifaximin, insulin dependent T2DM, GERD and HTN who reported on 03/20 for maroon colored vomit and black stool. Her iron supplementation normally colors her stool red tinged, however for the past day it has been black. She has had nausea and vomiting for the past four weeks (3x weekly) which turned maroon 03/20 (3 times). Denied abdominal pain, chest pain, cough, but reported + SOB. She was not hypoxic. She was drowsy and lethargic. The relayed most of the hx. She woke up to answer questions but was corrected by due to innacuracy In the ED an EKG ruled out acute ischemia, and CXR ruled out cardiopulm pathology. A CT pelvis showed cirrhosis, portal HTN, spenomegaly and varices. Grossly heme positive on rectal exam. H/H at this time was 6/18.4, down from her last known baseline of 7.5. INR was 1.2. She was found to have a HENRIQUE with a creatinine of 2.69, BUN was high at 85, she was hypernatremic with sodium of 147, potassium 5.7, and a non-anion gap metabolic acidosis consistent with volume depletion. Her ammonia level was significantly elevated at 208. Ammonia level went down to 117 today. She was started on a Protonix drip and octreotide drip and was started with a PRBC transfusion to be a total of 2 units in the ER. A EGD and colonoscopy was scheduled for today 03/21 (not yet done). Was intubated yesterday at 3pm for encephalopathy and to prepare for EGD. For encephalopathy, a central line was placed, and she was given lactulose. Allergies Allergy/AdvReac Type Severity Reaction Status Date / Time Sulfa (Sulfonamide Allergy Intermediate Rash Verified 03/20/20 14:49 Antibiotics) sulfamethoxazole Allergy Intermediate RASH Verified 03/20/20 14:49 trimethoprim Allergy Intermediate RASH Verified 03/20/20 14:49 Bactrim Allergy Unknown RASH Verified 08/17/14 08:01 amlodipine AdvReac Intermediate confusion Verified 03/20/20 11:43 adhesive tape AdvReac Mild ITCHING Verified 03/20/20 11:43 Home Medications Home Medications Medication Instructions Recorded Confirmed Type ferrous sulfate 325 mg (65 mg 325 mg PO BID tab 01/28/19 03/20/20 History iron) tablet acetaminophen [Tylenol Extra 500 mg PO Q6H PRN 10/04/19 03/20/20 History Strength] mupirocin 2 % topical ointment 1 appln TOP BID #22 gm 10/14/19 03/20/20 Rx nystatin 100,000 unit/gram topical 1 appln TOP BID #30 gm 10/14/19 03/20/20 Rx cream folic acid 1 mg tablet 1 mg PO BID #60 tab 11/10/19 03/20/20 Rx pen needle, diabetic 31 gauge x #100 ea 11/17/19 02/03/20 Rx 3/16" lactulose 20 gram/30 mL oral 45 ml PO BID ml 12/10/19 03/20/20 History solution insulin aspart U-100 100 unit/mL See Rx Instructions SQ TID #15 ml 12/11/19 03/20/20 Rx (3 mL) subcutaneous pen carvedilol 6.25 mg tablet 6.25 mg PO BID #60 tab 12/30/19 03/20/20 Rx hydroxyzine HCl 10 mg tablet 10 mg PO QID PRN #30 tab 12/30/19 03/20/20 Rx blood sugar diagnostic #200 ea 01/06/20 02/03/20 Rx rifaximin 550 mg tablet 550 mg PO BID #180 tab 01/12/20 03/20/20 Rx teriparatide 20 mcg/dose (600 20 mcg SQ QAM 02/03/20 03/20/20 History mcg/2.4 mL) subcutaneous pen injector ropinirole 2 mg tablet 2 mg PO HS #30 tab 03/08/20 03/20/20 Rx calcitriol 0.25 mcg PO 3XWK 03/20/20 03/20/20 History calcium carbonate-vitamin D3 1 tab PO QAM 03/20/20 03/20/20 History [Oyster Shell Calcium-Vit D3] furosemide 40 mg PO QAM 03/20/20 03/20/20 History insulin glargine [Basaglar KwikPen 15 units SUBCUT HS 03/20/20 03/20/20 History U-100 Insulin] mometasone 1 appln TOP QAM 03/20/20 03/20/20 History pantoprazole 40 mg PO QAM 03/20/20 03/20/20 History sodium bicarbonate 650 mg PO BID 03/20/20 03/20/20 History spironolactone 25 mg PO QAM 03/20/20 03/20/20 History Past Med/Surg History Medical History Anxiety Cardiac murmur Diabetes type 2, uncontrolled Diabetic nephropathy associated with type 2 diabetes mellitus Diabetic peripheral neuropathy associated with type 2 diabetes mellitus Diverticular disease Duodenal ulcer Dysesthesia Esophageal varices Gastric ulcer GERD (gastroesophageal reflux disease) History of recent blood transfusion (~06/2019) Hypertension Liver cirrhosis Loss of protective sensation of skin of foot Nausea and vomiting after administration of anesthetic agent Osteoarthritis Pancytopenia Pleural effusion (Inactive) Pre-ulcerative corn or callous Psoriatic arthritis Pulmonary edema Restless leg syndrome Risk for falls Surgical History History of anesthesia reaction difficult to wake after bladder tack sx History of bilateral cataract extraction History of bladder surgery bladder tack History of colonoscopy History of esophagogastroduodenoscopy (EGD) multiple---last 06/22/[place] [facility] [place] of hemiarthroplasty of right shoulder January 2018 post fracture History of repair of right rotator cuff History of revision of total shoulder arthroplasty (12/29/18) Right shoulder, 12/29/18 History of shoulder surgery (~11/2019) Had right total arthroplasty removed 11/2019 History of tooth extraction all teeth S/P ORIF (open reduction internal fixation) fracture R shoulder, January 2018 S/P shoulder surgery (11/18/19) R TSA removal, I&D, placement of abx spacer Family History Grandmother (Paternal) Family history of diabetes mellitus Father COPD (chronic obstructive pulmonary disease) Mother Hypertension Family/Other Cancer Sister Ovarian cancer Denies family history of Prostate cancer Myocardial infarction Breast cancer Colorectal cancer Social History Smoking Status: Former smoker Second Hand Exposure: No; Hx Alcohol Use: No Hx Substance Use: No Preferred Language: Gambian Communication Ability: Effective Visual Impairment: Limited Hearing Ability: Normal Docketing Specialist Required: No Beliefs That Will Affect Care: None marital status: Current Living Situation: Spouse Current Living Situation Comment: Lives with and son current occupational status: retired Feels Safe at Home: Yes Childhood Exposure to Second-Hand Smoke: Yes Diet Comment: regular Dental Care, Regularly: No Physical Activity Frequency: Does not Exercise Seatbelt Use: sometimes Review of Systems Not obtained as pt is intubated. Physical Exam Constitutional: well developed, well nourished, + acute distress and + ill appearing; not diaphoretic Eyes: PERRL, conjunctivae normal, anicteric sclerae + anicteric sclerae, PERRL and EOM intact bilaterally ENMT: external ear and nose normal, oropharynx normal Neck: trachea midline, no thyromegaly Respiratory: normal respiratory effort, lungs clear to auscultation normal respiratory effort; no cough Auscultation: + wheezes (Expiratory); no crackles and no rhonchi Cardiovascular: RRR, no murmur, no edema Rate/Rhythm: regular rate (bradycardic to 50s) and regular rhythm Heart Sounds: + murmur (2/6 blowing systolic murmur throughout) Chest (Breasts): Chest: normal inspection of chest Gastrointestinal (Abdomen): normal bowel sounds, soft, nontender, no hepatosplenomegaly Inspection/Auscultation: abdomen normal to inspection and normal bowel sounds; abdomen not distended Percussion/Palpation: abdomen soft and + hepatosplenomegaly; abdomen nontender Rectal Exam: + heme positive stool (As per ER physician's exam) Musculoskeletal: Extremities: extremities normal to inspection; no cyanosis and no clubbing Skin: no rashes, warm and dry Neurologic: moves all extremities (And is restless in the legs); + not awake (Sleeping but wakes up and opens eyes to answer some questions) Lymphatic: no cervical or axillary lymphadenopathy no lymphadenopathy and no lymphedema Results & Data Vital Signs (Past 12 Hours) Vital Signs Temp Pulse Resp BP Pulse Ox 03/21/20 10:04 57 L 21 100 03/21/20 08:31 35.6 C L 56 L 99 03/21/20 08:17 35.5 C L 61 94/66 L 92 03/21/20 08:01 35.6 C L 57 L 100 03/21/20 07:46 35.6 C L 58 L 109/53 L 100 03/21/20 07:31 35.6 C L 56 L 100 03/21/20 07:16 35.6 C L 59 L 129/63 100 03/21/20 07:10 58 L 22 100 03/21/20 06:14 35.6 C L 59 L 16 141/69 H 97 03/21/20 06:00 35.6 C L 57 L 100 03/21/20 05:45 35.6 C L 56 L 100 03/21/20 05:30 35.6 C L 57 L 100 03/21/20 05:16 35.6 C L 56 L 122/56 L 100 03/21/20 05:15 35.6 C L 56 L 100 03/21/20 05:00 35.6 C L 57 L 100 03/21/20 04:46 35.6 C L 58 L 136/63 100 03/21/20 04:45 35.6 C L 59 L 100 03/21/20 04:30 35.6 C L 60 100 03/21/20 04:16 35.6 C L 60 144/62 H 100 03/21/20 04:15 35.6 C L 59 L 100 03/21/20 04:00 35.6 C L 57 L 100 03/21/20 03:46 35.6 C L 57 L 113/53 L 100 03/21/20 03:45 35.6 C L 57 L 100 03/21/20 03:40 57 L 23 100 03/21/20 03:30 35.6 C L 57 L 100 03/21/20 03:16 35.7 C L 58 L 149/62 H 100 03/21/20 03:15 35.7 C L 59 L 100 03/21/20 03:00 35.7 C L 60 100 03/21/20 02:46 35.7 C L 59 L 132/57 L 100 03/21/20 02:45 35.7 C L 59 L 100 03/21/20 02:30 35.7 C L 60 100 03/21/20 02:16 35.8 C L 60 148/63 H 03/21/20 02:15 35.7 C L 60 100 03/21/20 02:00 35.8 C L 59 L 100 03/21/20 01:46 35.8 C L 59 L 131/57 L 100 03/21/20 01:45 35.8 C L 59 L 100 03/21/20 01:31 35.9 C L 59 L 100 03/21/20 01:16 35.9 C L 60 128/56 L 100 03/21/20 01:01 35.9 C L 62 100 03/21/20 00:46 36.0 C L 61 136/60 100 03/21/20 00:31 36.0 C L 61 100 03/21/20 00:16 36.1 C L 63 161/76 H 100 03/21/20 00:01 36.1 C L 63 100 03/20/20 23:55 66 14 100 03/20/20 23:51 36.1 C L 63 158/78 H 100 03/20/20 23:46 36.1 C L 65 158/78 H 100 03/20/20 23:31 36.2 C L 62 100 03/20/20 23:16 36.2 C L 63 133/55 L 100 03/20/20 23:00 36.3 C L 62 100 03/20/20 22:46 36.3 C L 63 134/60 100 03/20/20 22:45 36.4 C L 64 100 03/20/20 22:30 36.4 C L 66 100 Code Status & VTE Plan VTE Prophylaxis Plan VTE Prophylaxis will be ordered: Yes
[2020-03-21] MEDS: cefTRIAXone SODIUM 2,000 MG in DEXTROSE 5% 50 ML IV SCH (11:10)
--- NOTE | 2020-03-21 12:11 | XRay Report ---
XR humerus RT 2V CLINICAL HISTORY: Fracture COMPARISON: Right shoulder dated 11/10/2019 DISCUSSION: There is been interval removal of the patient's right shoulder arthroplasty with placemen t of an antibiotic spacer. Since the prior study, the patient has developed a nondisplaced fracture o f the mid humeral shaft at the approximate level of the inferior aspect of the humeral prosthesis. Th is fracture is age indeterminate. IMPRESSION: 1. Interval removal of the patient's total right shoulder arthroplasty with placement of an antibioti c spacer 2. Nondisplaced mid humeral fracture the exact age of which is uncertain. ACT 112: Negative or not required by law. Electronically signed by: Devon Walton M.D. 03/21/2020 12:10 PM
[2020-03-21] MEDS: INSULIN ASPART 100 UNITS/ML 3 ML PEN SC SCH ×2 (12:16→17:55)
[2020-03-21 14:05] LABS: Hematocrit (blood only) 24.5 % (37-47); Hemoglobin 8.1 g/dL (12.0-16.0); Mean Corpuscular Hemoglobin 29.9 pg (25-34); Mean Corpuscular Hgb Conc 33.1 g/dL (32-36); Mean Corpuscular Volume 90.4 fL (80-100); RDW Coefficient of Variation 17.7 % (11.5-14.5); RDW Standard Deviation 58.4 fL (36.4-46.3); Red Blood Count 2.71 M/uL (4.2-5.4); White Blood Count 2.46 K/uL (4.8-10.8)
--- NOTE | 2020-03-21 14:09 | Anesthesiology Consultation ---
Date of Service March 21, 2020 Assessment & Plan (1) Encounter for pre-operative examination: Chart Review Chart Review: Acceptable Risk for Surgery and Patient NOT seen in Pre Admission Testing Consults Requested none History Surgery Operation Date: 03/21/20 08:20 Proposed Procedures p Esophagogastroduodenoscopy - Irphan E Nella Height/Weight Height: 5 ft 1 in Weight: 72.2 kg Allergies Allergy/AdvReac Type Severity Reaction Status Date / Time Sulfa (Sulfonamide Allergy Intermediate Rash Verified 03/20/20 14:49 Antibiotics) sulfamethoxazole Allergy Intermediate RASH Verified 03/20/20 14:49 trimethoprim Allergy Intermediate RASH Verified 03/20/20 14:49 Bactrim Allergy Unknown RASH Verified 08/17/14 08:01 amlodipine AdvReac Intermediate confusion Verified 03/20/20 11:43 adhesive tape AdvReac Mild ITCHING Verified 03/20/20 11:43 Medications Home Medications Medication Instructions Recorded Confirmed Last Taken ferrous sulfate 325 mg (65 mg 325 mg PO BID tab 01/28/19 03/20/20 03/19/20 iron) tablet acetaminophen [Tylenol Extra 500 mg PO Q6H PRN 10/04/19 03/20/20 10/18/19 Strength] mupirocin 2 % topical ointment 1 appln TOP BID #22 gm 10/14/19 03/20/20 03/19/20 nystatin 100,000 unit/gram topical 1 appln TOP BID #30 gm 10/14/19 03/20/20 03/19/20 cream folic acid 1 mg tablet 1 mg PO BID #60 tab 11/10/19 03/20/20 03/19/20 pen needle, diabetic 31 gauge x #100 ea 11/17/19 02/03/20 Unknown 11/01" lactulose 20 gram/30 mL oral 45 ml PO BID ml 12/10/19 03/20/20 03/19/20 solution insulin aspart U-100 100 unit/mL See Rx Instructions SQ TID #15 ml 12/11/19 03/20/20 03/19/20 (3 mL) subcutaneous pen 0 units carvedilol 6.25 mg tablet 6.25 mg PO BID #60 tab 12/30/19 03/20/20 03/19/20 hydroxyzine HCl 10 mg tablet 10 mg PO QID PRN #30 tab 12/30/19 03/20/20 03/19/20 blood sugar diagnostic #200 ea 01/06/20 02/03/20 Unknown rifaximin 550 mg tablet 550 mg PO BID #180 tab 01/12/20 03/20/20 03/19/20 teriparatide 20 mcg/dose (600 20 mcg SQ QAM 02/03/20 03/20/20 03/19/20 mcg/2.4 mL) subcutaneous pen injector ropinirole 2 mg tablet 2 mg PO HS #30 tab 03/08/20 03/20/20 03/19/20 calcitriol 0.25 mcg PO 3XWK 03/20/20 03/20/20 03/18/20 calcium carbonate-vitamin D3 1 tab PO QAM 03/20/20 03/20/20 03/19/20 [Oyster Shell Calcium-Vit D3] furosemide 40 mg PO QAM 03/20/20 03/20/20 03/19/20 insulin glargine [Basaglar KwikPen 15 units SUBCUT HS 03/20/20 03/20/20 03/19/20 U-100 Insulin] mometasone 1 appln TOP QAM 03/20/20 03/20/20 03/19/20 pantoprazole 40 mg PO QAM 03/20/20 03/20/20 03/19/20 sodium bicarbonate 650 mg PO BID 03/20/20 03/20/20 03/19/20 spironolactone 25 mg PO QAM 03/20/20 03/20/20 03/19/20 Active Medications Generic Name Dose Route Start Last Admin Trade Name Miguelq PRN Reason Stop Dose Admin Pantoprazole Sodium 40 mg/ 100 mls @ 20 mls/hr 03/20/20 11:08 03/21/20 11:16 Dextrose IV 04/19/20 11:07 8 mg/hr Q5H BOBBY 20 mls/hr Administration 8 MG/HR Octreotide Acetate 500 mcg/ 105 mls @ 10.5 mls/hr 03/20/20 11:00 03/21/20 06:47 Sodium Chloride IV 04/19/20 10:59 50 mcg/hr .Q10H BOBBY 10.5 mls/hr Administration 50 MCG/HR Propofol 1,000 mg in 100 mls @ 14.28 mls/hr 03/20/20 15:15 03/21/20 10:19 Diprivan IV 03/23/20 15:14 35 mcg/kg/min .Q7H1M BOBBY 14.3 mls/hr Administration Protocol 35 MCG/KG/MIN Fentanyl Citrate 1,250 mcg in 250 mls @ 10 mls/hr 03/20/20 15:15 03/21/20 06:51 Fentanyl Drip IV 04/03/20 15:14 50 mcg/hr .Q24H BOBBY 10 mls/hr Titration Protocol 50 MCG/HR Sodium Chloride 1,000 mls @ 50 mls/hr 03/21/20 05:15 03/21/20 06:38 1/2 Nss IV 04/20/20 05:14 50 mls/hr .Q20H BOBBY Administration Ceftriaxone Sodium 2,000 mg/ 70 mls @ 140 mls/hr 03/21/20 10:30 03/21/20 12:15 Dextrose IV 03/27/20 10:59 Infused Q24H BOBBY Infusion Insulin Aspart 0 units 03/21/20 12:00 03/21/20 12:16 Novolog Flexpen SC 04/20/20 11:59 Not Given Q6 BOBBY Insulin Glargine 15 units 03/20/20 21:00 03/20/20 21:05 Lantus Solostar Pen SQ 04/19/20 20:59 15 units HS BOBBY Administration Midazolam HCl 2 mg 03/20/20 15:10 03/20/20 16:17 Versed IV 04/19/20 15:09 2 mg Q2H PRN Administration RASS goal -1 Past Medical History Medical History Anxiety Cardiac murmur Diabetes type 2, uncontrolled Diabetic nephropathy associated with type 2 diabetes mellitus Diabetic peripheral neuropathy associated with type 2 diabetes mellitus Diverticular disease Duodenal ulcer Dysesthesia Esophageal varices Gastric ulcer GERD (gastroesophageal reflux disease) History of recent blood transfusion (~06/2019) Hypertension Liver cirrhosis Loss of protective sensation of skin of foot Nausea and vomiting after administration of anesthetic agent Osteoarthritis Pancytopenia Pleural effusion (Inactive) Pre-ulcerative corn or callous Psoriatic arthritis Pulmonary edema Restless leg syndrome Risk for falls Metabolic encephalopathy: - On arrival with altered mental status, was intubated electively for airway protection and in anticipation of EGD. Exercise / Class Metabolic Activity III < 4 Walking/Shop/Light housework Past Family History Family History Grandmother (Paternal) Family history of diabetes mellitus Father COPD (chronic obstructive pulmonary disease) Mother Hypertension Family/Other Cancer Sister Ovarian cancer Denies family history of Prostate cancer Myocardial infarction Breast cancer Colorectal cancer Past Surgical History Surgical History History of anesthesia reaction difficult to wake after bladder tack sx History of bilateral cataract extraction History of bladder surgery bladder tack History of colonoscopy History of esophagogastroduodenoscopy (EGD) multiple---[place] 06/22[place] [facility] [place] of hemiarthroplasty of right shoulder January 2018 post fracture History of repair of right rotator cuff History of revision of total shoulder arthroplasty (12/29/18) Right shoulder, 12/29/18 History of shoulder surgery (~11/2019) Had right total arthroplasty removed 11/2019 History of tooth extraction all teeth S/P ORIF (open reduction internal fixation) fracture R shoulder, January 2018 S/P shoulder surgery (11/18/19) R TSA removal, I&D, placement of abx spacer Past Anesthesia History No Hx of Anesthesia Complications and No Family Hx of Anesthesia Complications History of PONV No Hx of PONV and No Hx of Motion Sickness Social History Smoking Status: Former smoker Do You Dip or Chew Tobacco: No Hx Alcohol Use: No Hx Substance Use: No substance use type: does not use Physical Exam Vital Signs Last Vital Signs Temp 35.6 C L 03/21/20 08:31 Pulse 57 L 03/21/20 13:27 Resp 19 03/21/20 13:27 BP 94/66 L 03/21/20 08:17 Pulse Ox 100 03/21/20 13:27 Testing Laboratory Results 03/21/20 13:58 PT 13.3 Seconds (9.0-12.0) H 03/21/20 04:07 INR 1.3 (0.9-1.1) H 03/21/20 04:07 APTT 32.1 Seconds (21.0-31.0) H 03/20/20 10:38 Urine Color Yellow 03/20/20 15:30 Urine Appearance Cloudy (Clear) A 03/20/20 15:30 Urine pH 7.0 (4.5-7.5) 03/20/20 15:30 Ur Specific [place] 1.013 (1.000-1.030) 03/20/20 15:30 Urine Protein Trace (Negative) H 03/20/20 15:30 Urine Glucose (UA) Negative (Negative) 03/20/20 15:30 Urine Ketones Negative (Negative) 03/20/20 15:30 Urine Nitrite Negative (Negative) 03/20/20 15:30 Ur Leukocyte Esterase Trace (Negative) H 03/20/20 15:30 Urine WBC (Auto) 10-30 /hpf (0-5) H 03/20/20 15:30 Urine RBC (Auto) 10-30 /hpf (0-4) H 03/20/20 15:30 U Hyaline Cast (Auto) 1-5 /lpf (0-5) 03/20/20 15:30 U Epithel Cells (Auto) 20-30 /lpf (0-5) H 03/20/20 15:30 Urine Bacteria (Auto) 4+ (Negative) H 03/20/20 15:30 Blood Type O Positive 03/20/20 10:38 Antibody Screen NEGATIVE 03/20/20 10:38 03/20/20 15:30 Urine Culture - Preliminary Urine,Straight Cath Gram negative bacilli 03/21/20 03/21/20 11:38 08:45 POC Glucose 132 H 121 H Electrocardiogram Date: 03/20/20 Findings: + NSR @ (70) Normal sinus rhythm Normal ECG When compared with ECG of 04-OCT-2019 19:19, Premature atrial complexes are no longer Present Confirmed by Adam Mcgraw ([id number]) on 03/20/2020 1:39:03 PM Chest X-Ray Date: 03/20/20 CLINICAL HISTORY: Respiratory failure COMPARISON STUDY: March 20, 2020 FINDINGS: There has been interval placement of an endotracheal tube 24 mm above the vicki. The heart is borderline enlarged. There is elevation of interstitium suggesting mild pulmonary vascular congestion/fluid overload. There is no lobar consolidation. Postsurgical changes involve the right shoulder.[ IMPRESSION: 1. Interval placement of an endotracheal tube 24 mm above the vicki 2. Interval development of mild pulmonary vascular congestion/fluid overload
[2020-03-21 14:24] LABS: BUN Creatinine Ratio 27.3 (10-20); Calcium 8.1 mg/dl (8.5-10.1); Creatinine Clr Calc Pharmacy 20.2 ml/min; Potassium 4.9 mmol/L (3.5-5.1)
[2020-03-21 14:33] LABS: Platelet Count 39 K/uL (130-400)
[2020-03-21] MEDS ORDERED: PROPOFOL IV EMULSION 10 MG/ML 20 ML VIAL IV ONE (14:52)
[2020-03-21] MEDS ORDERED: LIDOCAINE HCL 2% 2 ML VIAL/AMP(20MG/ML) INFIL ONE (14:52)
[2020-03-21] MEDS: fentaNYL DRIP 1,250 MCG/250 ML BAG IV SCH (15:44)
[2020-03-21] MEDS ORDERED: cefTRIAXone SODIUM 1,000 MG in DEXTROSE 5% 50 ML IV SCH (15:45)
--- NOTE | 2020-03-21 16:37 | GI REPORT ---
Patient Name: Angela Sherman Procedure Date: 03/21/2020 3:58 PM Date of : 1955 Admit Type: Inpatient Age: 64 Gender: Female Attending MD: Shivani Carmen MD Procedure: Upper GI endoscopy Providers: Shivani Carmen MD Referring MD: Eitan Valencia Indications: Hematemesis Medicines: See the Anesthesia note for documentation of the administered medications Complications: No immediate complications. Estimated Blood Loss: Estimated blood loss: none. Procedure: Pre-Anesthesia Assessment: - ASA Grade Assessment: IV - A patient with severe systemic disease that is a constant threat to life. After obtaining informed consent, the endoscope was passed under direct vision. Throughout the procedure, the patient's blood pressure, pulse, and oxygen saturations were monitored continuously. The Endoscope was introduced through the mouth, and advanced to the second part of duodenum. The upper GI endoscopy was accomplished without difficulty. The patient tolerated the procedure well. Findings: One column of non-bleeding grade II varices were found in the middle third of the esophagus and in the lower third of the esophagus,. No stigmata of recent bleeding were evident and no red mona signs were present. There was a small pool of dark red blood in the fundus. There were no gastric varices. There was an erosion in the fundus, likely from vomiting. There was mild portal gastropathy throughout the body and fundus. There was a non bleeding AVM in the body of the stomach. This was cauterized using APC at standard settings. There was persistent oozing post APC that resolved with placement of 4 clips. Antrum was normal, without evidence of GAVE. Theere was bilious fluid in the duodenum. The duodenum was normal. Impression: Likely bleeding from portal gastropathy or from gastric AVM. Gastric AVM was clipped. Erosion in fundus. Pt with G2 esophageal varix, but absence of stigmata makes this an unlikely cause of bleeding. Recommendation: - Cont ICU care. PPT gtt overnight, then IV twice daily. Cont octreotide x 3 days, abx x 7 days. X fuse for hgb < 7. Begin rx for HE. Shivani Carmen M.D. Shivani Carmen MD 03/21/2020 4:36:41 PM This report has been signed electronically. Note Initiated On: 03/21/2020 3:58 PM Number of Addenda: 0 I attest to the content of the Intraoperative Record and orders documented therein, exceptions below {[id number]}
[2020-03-21] MEDS ORDERED: PHENYLEPHRINE 100MCG/ML 5ML SYR ONE (16:38)
--- NOTE | 2020-03-21 16:51 | Hospitalist Progress Note ---
Date of Service March 21, 2020 Assessment & Plan (1) Acute blood loss anemia: EGD on 03/21 with portal gastropathy, varices (no stigmata of bleeding) and gastric AVM, the AVM was clipped Hb stable and BP stable after 3 units of PRBC and one unit platelets recommendations from GI: protonix drip overnight then BID, octreotide drip x 3 days Rocephin x 7 days repeat H/H in the morning remain in the ICU (2) GI bleed: based on EGD, likely source is AVM in stomach has varices but no stigmata of recent bleeding (3) Hyperkalemia: Secondary to acute kidney injury Potassium down to 5.0, improvement with volume administration repeat in the morning (4) Hepatic encephalopathy: Ammonia level 208 on admission, per her , she was not taking Lactulose because she was having loose stools ammonia down to 117 can give Rifaximin and Lactulose via OG tube if she is extubated then treat by PO, repeat ammonia in the morning currently sedated on propofol so difficult to assess mental status (5) HENRIQUE (acute kidney injury): Creatinine up to 2.69, BUN up to 85, from baseline of creatinine 1.8 and BUN 47 BUN likely also up due to GI bleeding Cr improved slightly to 2.59, BUN 71 repeat in the morning monitor electrolytes likely HENRIQUE is due to volume loss with bleeding, could have a degree of ATN hold nephrotoxins (6) Metabolic acidosis: due to HENRIQUE CO2 remains 15 today, AG is 9.0 repeat tomorrow (7) 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: As above, with portal hypertension octreotide drip resume maintenance therapy with diuretics, Rifaximin and lactulose once appropriate (8) Hypernatremia: 149 this afternoon repeat in the morning (9) Diabetic nephropathy associated with type 2 diabetes mellitus: Noted (10) Diabetes type 2, uncontrolled: Continue Lantus and NovoLog monitor for hypoglycemia (11) Pancytopenia: Secondary to cirrhosis and acute on chronic anemia plts are 37 on most recent check Hb up to 8.3 (12) Nocturnal hypoxemia: Wears 2 L nasal cannula at nighttime (13) Obstructive sleep apnea: Wears 2 L nasal cannula at nighttime (14) Hypertension: Hypertensive currently -Holding home carvedilol, diuretics because of GI bleeding Follow blood pressures (15) Depression: Noted Not currently on medication for this (16) Pulmonary hypertension: Noted on most recent echocardiogram (17) Mitral regurgitation: Mild on most recent echocardiogram (18) Aortic stenosis: Trivial aortic stenosis on most recent echocardiogram (19) Vitamin D deficiency: Hold home vitamin D supplementation (20) Psoriatic arthritis: Not on medications for this (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 Protonix and doing Protonix drip for now (23) Chronic kidney disease, stage III (moderate): Follows with nephrology, baseline creatinine 1.8 as above -Avoid nephrotoxins -renally dose meds when appropriate -follow BMP, Cr is 2.59 today (24) DVT prophylaxis: SCDs only given GI bleeding Disposition-critically ill, admit to ICU, remains intubated for airway protec tion, management per ICU Admission and Anticipated Discharge Date Admission Date: March 20, 2020 Subjective patient intubated and sedated on propofol updated her at the bedside this afternoon prior to EGD discussed with resident in the ICU discussed with Dr. Carmen after EGD, appreciate findings of varices, AVM, erosions in fundus Hb is stable after transfusion, BP stable, platelets coming up, Cr is stable ammonia is 117 this AM Review of Systems Review of Systems: Unobtainable due to endotracheal tube and Unobtainable due to reduced consciousness Physical Exam Constitutional: well nourished and + mechanically ventilated; no acute distress Eyes: PERRL, conjunctivae normal, anicteric sclerae ENMT: external ear and nose normal, oropharynx normal Neck: trachea midline, no thyromegaly Respiratory: normal respiratory effort, lungs clear to auscultation Cardiovascular: RRR, no murmur, no edema Gastrointestinal (Abdomen): normal bowel sounds, soft, nontender, no hepatosplenomegaly Musculoskeletal: Head/Neck/Chest: normocephalic, head atraumatic and neck supple Extremities: extremities normal to inspection; no cyanosis, no clubbing and no petechiae Skin: no rashes, warm and dry Neurologic: + obtunded; no focal motor deficits Lymphatic: no cervical or axillary lymphadenopathy Results & Data Results & Data ([facility]) Vital Signs (Past 12 Hours) Vital Signs Temp Pulse Resp BP Pulse Ox 03/21/20 15:07 56 L 19 100 03/21/20 15:01 35.8 C L 56 L 100 03/21/20 14:47 35.8 C L 56 L 125/57 L 100 03/21/20 14:30 35.8 C L 58 L 100 03/21/20 14:16 35.7 C L 57 L 153/65 H 100 03/21/20 14:00 35.7 C L 58 L 100 03/21/20 13:46 35.7 C L 56 L 134/62 100 03/21/20 13:30 35.6 C L 56 L 100 03/21/20 13:27 57 L 19 100 03/21/20 13:16 35.6 C L 55 L 128/58 L 100 03/21/20 13:00 35.6 C L 57 L 100 03/21/20 12:46 35.6 C L 55 L 125/61 100 03/21/20 12:30 35.6 C L 55 L 100 03/21/20 12:17 35.6 C L 56 L 136/64 100 03/21/20 12:00 35.6 C L 57 L 100 03/21/20 11:46 35.5 C L 57 L 155/72 H 100 03/21/20 11:30 35.5 C L 58 L 100 03/21/20 11:16 35.5 C L 56 L 137/63 100 03/21/20 11:00 35.5 C L 56 L 100 03/21/20 10:46 35.5 C L 57 L 129/62 100 03/21/20 10:30 35.5 C L 56 L 100 03/21/20 10:16 35.5 C L 57 L 122/62 100 03/21/20 10:04 57 L 21 100 03/21/20 10:00 35.4 C L 57 L 100 03/21/20 09:46 35.4 C L 59 L 135/64 100 03/21/20 09:30 35.4 C L 58 L 100 03/21/20 09:16 35.4 C L 58 L 148/70 H 100 03/21/20 09:01 35.4 C L 58 L 100 03/21/20 08:46 35.5 C L 56 L 125/63 100 03/21/20 08:31 35.6 C L 56 L 99 03/21/20 08:17 35.5 C L 61 94/66 L 92 03/21/20 08:01 35.6 C L 57 L 100 03/21/20 07:46 35.6 C L 58 L 109/53 L 100 03/21/20 07:31 35.6 C L 56 L 100 03/21/20 07:16 35.6 C L 59 L 129/63 100 03/21/20 07:10 58 L 22 100 03/21/20 06:14 35.6 C L 59 L 16 141/69 H 97 03/21/20 06:00 35.6 C L 57 L 100 03/21/20 05:45 35.6 C L 56 L 100 03/21/20 05:30 35.6 C L 57 L 100 03/21/20 05:16 35.6 C L 56 L 122/56 L 100 03/21/20 05:15 35.6 C L 56 L 100 03/21/20 05:00 35.6 C L 57 L 100 Laboratory Results Laboratory Results - last 24 hr 03/20/20 03/21/20 03/21/20 10:38 04:07 04:07 WBC RBC Hgb POC Hgb Hct POC Hct MCV MCH MCHC RDW Std Deviation RDW Coeff of Karina Plt Count MPV Immature Gran % (Auto) Neut % (Auto) Lymph % (Auto) [place] % (Auto) Eos % (Auto) Baso % (Auto) Neut # (Auto) Lymph # (Auto) [place] # (Auto) Eos # (Auto) Baso # (Auto) Immature Gran # (Auto) Ovalocytes PT 13.3 H INR 1.3 H Sample Site POC pH POC pCO2 POC pO2 POC HCO3 POC Total CO2 POC Base Excess ABG pH (Temp Correct) ABG pCO2 (Temp Corrct POC ABG pO2 at Pt Temp POC ABG O2 Sat Ari Test O2 Delivery Device POC O2 Rate Minute Ventilation POC FiO2 Tidal Volume PEEP POC Sodium Sodium 151 H POC Potassium Potassium 5.2 H Chloride 128 H Carbon Dioxide 16 L Anion Gap 7.0 BUN 77 H Creatinine 2.52 H Est Cr Clr Drug Dosing 20.2 Est GFR ( Amer) 22.7 Est GFR (Non-Af Amer) 19.6 BUN/Creatinine Ratio 30.6 H Glucose 120 H POC Glucose Calcium 7.9 L Phosphorus 4.5 Magnesium 2.4 Total Bilirubin 1.2 H AST 36 ALT 20 Alkaline Phosphatase 119 H Ammonia Total Protein 5.8 L Albumin 2.0 L Globulin 3.8 Albumin/Globulin Ratio 0.5 L Blood Type O Positive Antibody Screen NEGATIVE Crossmatch See Detail 03/21/20 03/21/20 03/21/20 04:07 04:07 05:29 WBC 2.37 L RBC 2.69 L Hgb 8.0 L POC Hgb 6.8 L* Hct 24.2 L POC Hct 20 L* MCV 90.0 MCH 29.7 MCHC 33.1 RDW Std Deviation 57.4 H RDW Coeff of Karina 17.5 H Plt Count 41 L MPV 9.6 Immature Gran % (Auto) 0.4 Neut % (Auto) 54.1 Lymph % (Auto) 31.6 [place] % (Auto) 10.1 Eos % (Auto) 3.4 Baso % (Auto) 0.4 Neut # (Auto) 1.28 L Lymph # (Auto) 0.75 L [place] # (Auto) 0.24 Eos # (Auto) 0.08 Baso # (Auto) 0.01 Immature Gran # (Auto) 0.01 Ovalocytes PT INR Sample Site L Radial POC pH 7.38 POC pCO2 23 L POC pO2 141 H POC HCO3 13 L POC Total CO2 14 L POC Base Excess -12.0 L ABG pH (Temp Correct) 7.395 ABG pCO2 (Temp Corrct 21 L POC ABG pO2 at Pt Temp 133 POC ABG O2 Sat 99.0 H Ari Test Pass O2 Delivery Device Ventilator POC O2 Rate 14 Minute Ventilation 4.9 POC FiO2 30 Tidal Volume 350 PEEP 5 POC Sodium 148 H Sodium POC Potassium 5.0 Potassium Chloride Carbon Dioxide Anion Gap BUN Creatinine Est Cr Clr Drug Dosing Est GFR ( Amer) Est GFR (Non-Af Amer) BUN/Creatinine Ratio Glucose POC Glucose Calcium Phosphorus Magnesium Total Bilirubin AST ALT Alkaline Phosphatase Ammonia 117.0 H Total Protein Albumin Globulin Albumin/Globulin Ratio Blood Type Antibody Screen Crossmatch 03/21/20 03/21/20 03/21/20 08:45 11:38 13:58 WBC 2.46 L RBC 2.71 L Hgb 8.1 L POC Hgb Hct 24.5 L POC Hct MCV 90.4 MCH 29.9 MCHC 33.1 RDW Std Deviation 58.4 H RDW Coeff of Karina 17.7 H Plt Count 39 L MPV 9.0 Immature Gran % (Auto) Neut % (Auto) Lymph % (Auto) [place] % (Auto) Eos % (Auto) Baso % (Auto) Neut # (Auto) Lymph # (Auto) [place] # (Auto) Eos # (Auto) Baso # (Auto) Immature Gran # (Auto) Ovalocytes PT INR Sample Site POC pH POC pCO2 POC pO2 POC HCO3 POC Total CO2 POC Base Excess ABG pH (Temp Correct) ABG pCO2 (Temp Corrct POC ABG pO2 at Pt Temp POC ABG O2 Sat Ari Test O2 Delivery Device POC O2 Rate Minute Ventilation POC FiO2 Tidal Volume PEEP POC Sodium Sodium POC Potassium Potassium Chloride Carbon Dioxide Anion Gap BUN Creatinine Est Cr Clr Drug Dosing Est GFR ( Amer) Est GFR (Non-Af Amer) BUN/Creatinine Ratio Glucose POC Glucose 121 H 132 H Calcium Phosphorus Magnesium Total Bilirubin AST ALT Alkaline Phosphatase Ammonia Total Protein Albumin Globulin Albumin/Globulin Ratio Blood Type Antibody Screen Crossmatch 03/21/20 03/21/20 03/21/20 13:58 17:53 20:01 WBC 2.83 L RBC 2.73 L Hgb 8.3 L POC Hgb Hct 25.1 L POC Hct MCV 91.9 MCH 30.4 MCHC 33.1 RDW Std Deviation 59.1 H RDW Coeff of Karina 17.7 H Plt Count 37 L MPV 9.2 Immature Gran % (Auto) 0.4 Neut % (Auto) 69.2 Lymph % (Auto) 18.7 [place] % (Auto) 7.8 Eos % (Auto) 3.5 Baso % (Auto) 0.4 Neut # (Auto) 1.96 Lymph # (Auto) 0.53 L [place] # (Auto) 0.22 Eos # (Auto) 0.10 Baso # (Auto) 0.01 Immature Gran # (Auto) 0.01 Ovalocytes 1+ PT INR Sample Site POC pH POC pCO2 POC pO2 POC HCO3 POC Total CO2 POC Base Excess ABG pH (Temp Correct) ABG pCO2 (Temp Corrct POC ABG pO2 at Pt Temp POC ABG O2 Sat Rai Test O2 Delivery Device POC O2 Rate Minute Ventilation POC FiO2 Tidal Volume PEEP POC Sodium Sodium 149 H POC Potassium Potassium 4.9 Chloride 125 H Carbon Dioxide 15 L Anion Gap 9.0 BUN 71 H Creatinine 2.59 H Est Cr Clr Drug Dosing 20.2 Est GFR ( Amer) 22.0 Est GFR (Non-Af Amer) 19.0 BUN/Creatinine Ratio 27.3 H Glucose 114 H POC Glucose 91 Calcium 8.1 L Phosphorus Magnesium Total Bilirubin AST ALT Alkaline Phosphatase Ammonia Total Protein Albumin Globulin Albumin/Globulin Ratio Blood Type Antibody Screen Crossmatch Medications Administered Current Inpatient Medications Dextrose (Dextrose 50%) 25 - 50 ml IV UD PRN; Protocol PRN Reason: Hypoglycemia Protocol Stop: 04/19/20 15:14 Fentanyl Citrate (Fentanyl Bolus From Bag) 50 mcg IV Q60M PRN PRN Reason: Pain or Agitation Stop: 04/03/20 15:09 Glucagon (Glucagen) 1 mg IM UD PRN; Protocol PRN Reason: Hypoglycemia Protocol Stop: 04/19/20 15:14 Glucose (Glucose 40%) 15 - 30 gm PO UD PRN; Protocol PRN Reason: Hypoglycemia Protocol Stop: 04/19/20 15:14 Glucose (Dex4 Glucose) 4 - 8 tabs PO UD PRN; Protocol PRN Reason: Hypoglycemia Protocol Stop: 04/19/20 15:14 Pantoprazole Sodium 40 mg/ (Dextrose) 100 mls @ 20 mls/hr IV Q5H [facility] Stop: 04/19/20 11:07 Last Admin: 03/21/20 16:21 Dose: 8 mg/hr, 20 mls/hr Documented by: Octreotide Acetate 500 mcg/ (Sodium Chloride) 105 mls @ 10.5 mls/hr IV .Q10H [facility] Stop: 04/19/20 10:59 Last Admin: 03/21/20 15:44 Dose: 50 mcg/hr, 10.5 mls/hr Documented by: Propofol (Diprivan) 1,000 mg in 100 mls @ 10.2 mls/hr IV .Q9H49M [facility]BY; Protocol Stop: 03/23/20 15:14 Last Titration: 03/21/20 18:41 Dose: 25 mcg/kg/min, 10.2 mls/hr Documented by: Fentanyl Citrate (Fentanyl Drip) 1,250 mcg in 250 mls @ 10 mls/hr IV .Q24H [facility]BY; Protocol Stop: 04/03/20 15:14 Last Titration: 03/21/20 18:40 Dose: 50 mcg/hr, 10 mls/hr Documented by: Sodium Chloride (1/2 Nss) 1,000 mls @ 50 mls/hr IV .Q20H [facility] Stop: 04/20/20 05:14 Last Admin: 03/21/20 06:38 Dose: 50 mls/hr Documented by: Ceftriaxone Sodium 2,000 mg/ (Dextrose) 70 mls @ 140 mls/hr IV Q24H [facility] Stop: 03/27/20 10:59 Last Infusion: 03/21/20 12:15 Dose: Infused Documented by: Insulin Aspart (Novolog Flexpen) 0 units SC Q6 [facility] Stop: 04/20/20 11:59 Last Admin: 03/21/20 17:55 Dose: Not Given Documented by: Insulin Glargine (Lantus Solostar Pen) 15 units SQ HS [facility] Stop: 04/19/20 20:59 Last Admin: 03/20/20 21:05 Dose: 15 units Documented by: Lactulose (Chronulac) 30 gm OG BID [facility] Stop: 04/20/20 20:59 Last Admin: 03/21/20 20:01 Dose: 30 gm Documented by: Midazolam HCl (Versed) 2 mg IV Q2H PRN PRN Reason: RASS goal -1 Stop: 04/19/20 15:09 Last Admin: 03/20/20 16:17 Dose: 2 mg Documented by: Miscellaneous (Icu Protocol For Hyperglycemia) 1 ea N/A PRN PRN; Protocol PRN Reason: Hyperglycemia Protocol Stop: 03/22/20 14:57 Miscellaneous (Carbohydrates For Hypoglycemia) 15 - 30 gm PO UD PRN PRN Reason: Hypoglycemia Treatment Stop: 04/19/20 15:14 Propofol (Diprivan Bolus From Bag) 20 mg IV Q5M PRN PRN Reason: Sedation Stop: 03/23/20 15:09 Rifaximin (Xifaxan) 550 mg PO BID [facility] Stop: 04/20/20 20:59 Last Admin: 03/21/20 20:01 Dose: 550 mg Documented by: PG Care Time/CCT Total # of Minutes Spent Total Time Spent with Patient: Total time spent is greater than 50% in coordination of care (as documented) at patient's floor/unit and/or counseling patient: Coding Level of Care Code 55101 Subseq Hosp Care Lvl 3 Diagnoses Acute blood loss anemia D62 GI bleed K92.2 Hyperkalemia E87.5 Hepatic encephalopathy K72.90 HENRIQUE (acute kidney injury) N17.9 Metabolic acidosis E87.2 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 K75.81; K74.60 Hypernatremia E87.0 Diabetic nephropathy associated with type 2 diabetes mellitus E11.21 Diabetes type 2, uncontrolled E11.65 Pancytopenia D61.818 Nocturnal hypoxemia G47.34 Obstructive sleep apnea G47.33 Hypertension I10 Hypertension type: essential hypertension Depression F32.9 Pulmonary hypertension I27.20 Mitral regurgitation I34.0 Aortic stenosis I35.0 Vitamin D deficiency E55.9 Psoriatic arthritis L40.50 Polyclonal gammopathy D89.0 GERD (gastroesophageal reflux disease) K21.9 Chronic kidney disease, stage III (moderate) N18.3 DVT prophylaxis Z29.9 (1) Hypertension Hypertension type: essential hypertension Qualified Code(s): I10 - Essential (primary) hypertension
--- NOTE | 2020-03-21 17:18 | XRay Report ---
KUB HISTORY: Acute respiratory failure ogt placement COMPARISON: Chest radiograph 03/20/2020 FINDINGS: Endotracheal tube overlies the midline, 1 cm superior to the vicki. Enteric tube has been placed with distal tip projected over the expected location of the mid to distal gastric body. There are 4 surgical clips project over the over the greater curvature of the proximal stomach. No renal c alculi. No ureteral calculi. Stable appearance of the postoperative changes of the right shoulder and proximal humerus. Degenerative changes of the left shoulder and spine. Cardiomegaly with pulmonary v ascular congestion. No definite pneumoperitoneum. Trace pleural effusions. Mild bibasilar opacities p ersist. Lower abdomen is excluded from the [id number]. IMPRESSION: 1. Endotracheal and enteric tubes as above. 2. Cardiomegaly with pulmonary vascular congestion. 3. Trace pleural effusions with mild bibasilar opacities. ACT 112: Negative or not required by law. The above report was generated using voice recognition software. It may contain grammatical, syntax o r spelling errors. Electronically signed by: Ray Samson M.D. 03/21/2020 5:17 PM
--- NOTE | 2020-03-21 17:19 | Anesthesiology Progress Note ---
Date of Service March 21, 2020 Anesthesia Post Procedure Vital Signs Vital Signs: Temp Pulse Resp BP Pulse Ox 03/21/20 16:49 35.8 C L 57 L 135/55 L 100 03/21/20 16:47 35.8 C L 56 L 116/79 100 03/21/20 16:46 35.8 C L 57 L 100 03/21/20 16:43 35.8 C L 57 L 120/50 L 100 03/21/20 16:39 35.8 C L 54 L 134/49 L 100 03/21/20 16:37 35.8 C L 54 L 121/57 L 100 03/21/20 16:35 35.8 C L 53 L 138/62 100 03/21/20 16:33 35.8 C L 51 L 114/59 L 100 03/21/20 16:31 35.8 C L 52 L 103/50 L 100 03/21/20 16:29 35.8 C L 52 L 117/56 L 100 03/21/20 16:27 35.8 C L 52 L 138/54 L 100 03/21/20 16:25 35.8 C L 51 L 159/74 H 100 03/21/20 16:23 35.8 C L 55 L 94/56 L 100 03/21/20 16:20 35.8 C L 57 L 118/62 100 03/21/20 16:17 35.8 C L 56 L 112/49 L 100 03/21/20 16:16 35.8 C L 57 L 100 03/21/20 16:15 35.8 C L 57 L 111/56 L 100 03/21/20 16:13 35.8 C L 58 L 121/78 100 03/21/20 16:11 35.8 C L 57 L 128/70 100 03/21/20 16:08 35.8 C L 59 L 155/73 H 100 03/21/20 16:05 35.8 C L 58 L 134/57 L 100 03/21/20 16:03 35.8 C L 57 L 127/57 L 100 03/21/20 16:01 35.8 C L 57 L 100 03/21/20 16:00 35.8 C L 58 L 134/61 100 03/21/20 15:46 35.8 C L 57 L 133/63 100 03/21/20 15:31 35.8 C L 57 L 100 03/21/20 15:16 35.8 C L 56 L 127/62 100 03/21/20 15:07 56 L 19 100 03/21/20 15:01 35.8 C L 56 L 100 03/21/20 14:47 35.8 C L 56 L 125/57 L 100 03/21/20 14:30 35.8 C L 58 L 100 03/21/20 14:16 35.7 C L 57 L 153/65 H 03/21/20 14:00 35.7 C L 58 L 100 03/21/20 13:46 35.7 C L 56 L 134/62 03/21/20 13:30 35.6 C L 56 L 100 03/21/20 13:27 57 L 19 03/21/20 13:16 35.6 C L 55 L 128/58 L 100 03/21/20 13:00 35.6 C L 57 L 100 03/21/20 12:46 35.6 C L 55 L 125/61 03/21/20 12:30 35.6 C L 55 L 100 03/21/20 12:17 35.6 C L 56 L 136/64 03/21/20 12:00 35.6 C L 57 L 100 03/21/20 11:46 35.5 C L 57 L 155/72 H 03/21/20 11:30 35.5 C L 58 L 100 03/21/20 11:16 35.5 C L 56 L 137/63 03/21/20 11:00 35.5 C L 56 L 100 03/21/20 10:46 35.5 C L 57 L 129/62 03/21/20 10:30 35.5 C L 56 L 100 03/21/20 10:16 35.5 C L 57 L 122/62 100 03/21/20 10:04 57 L 21 100 03/21/20 10:00 35.4 C L 57 L 100 03/21/20 09:46 35.4 C L 59 L 135/64 100 03/21/20 09:30 35.4 C L 58 L 100 03/21/20 09:16 35.4 C L 58 L 148/70 H 03/21/20 09:01 35.4 C L 58 L 100 03/21/20 08:46 35.5 C L 56 L 125/63 100 03/21/20 08:31 35.6 C L 56 L 99 03/21/20 08:17 35.5 C L 61 94/66 L 92 03/21/20 08:01 35.6 C L 57 L 100 03/21/20 07:46 35.6 C L 58 L 109/53 L 100 03/21/20 07:31 35.6 C L 56 L 100 03/21/20 07:16 35.6 C L 59 L 129/63 100 03/21/20 07:10 58 L 22 100 03/21/20 06:14 35.6 C L 59 L 16 141/69 H 97 03/21/20 06:00 35.6 C L 57 L 100 03/21/20 05:45 35.6 C L 56 L 100 03/21/20 05:30 35.6 C L 57 L 100 03/21/20 05:16 35.6 C L 56 L 122/56 L 100 03/21/20 05:15 35.6 C L 56 L 100 03/21/20 05:00 35.6 C L 57 L 100 03/21/20 04:46 35.6 C L 58 L 136/63 100 03/21/20 04:45 35.6 C L 59 L 100 03/21/20 04:30 35.6 C L 60 100 03/21/20 04:16 35.6 C L 60 144/62 H 100 03/21/20 04:15 35.6 C L 59 L 100 03/21/20 04:00 35.6 C L 57 L 100 03/21/20 03:46 35.6 C L 57 L 113/53 L 100 03/21/20 03:45 35.6 C L 57 L 100 03/21/20 03:40 57 L 23 100 03/21/20 03:30 35.6 C L 57 L 100 03/21/20 03:16 35.7 C L 58 L 149/62 H 100 03/21/20 03:15 35.7 C L 59 L 100 03/21/20 03:00 35.7 C L 60 100 03/21/20 02:46 35.7 C L 59 L 132/57 L 100 08/03/20 02:45 35.7 C L 59 L 100 03/21/20 02:30 35.7 C L 60 100 03/21/20 02:16 35.8 C L 60 148/63 H 100 03/21/20 02:15 35.7 C L 60 100 03/21/20 02:00 35.8 C L 59 L 100 03/21/20 01:46 35.8 C L 59 L 131/57 L 100 03/21/20 01:45 35.8 C L 59 L 100 03/21/20 01:31 35.9 C L 59 L 100 03/21/20 01:16 35.9 C L 60 128/56 L 100 03/21/20 01:01 35.9 C L 62 100 03/21/20 00:46 36.0 C L 61 136/60 100 03/21/20 00:31 36.0 C L 61 100 03/21/20 00:16 36.1 C L 63 161/76 H 100 03/21/20 00:01 36.1 C L 63 100 03/20/20 23:55 66 14 100 03/20/20 23:51 36.1 C L 63 158/78 H 100 03/20/20 23:46 36.1 C L 65 158/78 H 100 03/20/20 23:31 36.2 C L 62 100 03/20/20 23:16 36.2 C L 63 133/55 L 100 03/20/20 23:00 36.3 C L 62 100 03/20/20 22:46 36.3 C L 63 134/60 100 03/20/20 22:45 36.4 C L 64 100 03/20/20 22:30 36.4 C L 66 100 03/20/20 22:16 36.4 C L 67 143/63 H 100 03/20/20 22:15 36.4 C L 67 100 03/20/20 22:00 36.5 C 68 100 03/20/20 21:45 36.5 C 69 100 03/20/20 21:30 36.5 C 67 100 03/20/20 21:20 36.5 C 67 14 134/61 95 03/20/20 21:16 36.5 C 67 134/61 100 03/20/20 21:15 36.5 C 67 03/20/20 21:00 36.6 C 67 03/20/20 20:55 68 14 03/20/20 20:46 36.6 C 67 136/60 03/20/20 20:45 36.6 C 67 03/20/20 20:30 36.5 C 72 03/20/20 20:16 36.5 C 70 155/64 H 03/20/20 20:15 36.5 C 73 03/20/20 20:00 36.5 C 69 03/20/20 19:46 36.5 C 71 148/66 H 03/20/20 19:45 36.6 C 69 03/20/20 19:30 36.6 C 69 03/20/20 19:16 36.6 C 69 152/61 H 03/20/20 19:15 36.6 C 68 03/20/20 19:00 36.5 C 71 03/20/20 18:07 74 22 100 Transfer of Care Handoff Completed per policy Notes Mental Status: alert / awake / arousable and participated in evaluation Patient Amnestic to Procedure: Yes Nausea / Vomiting: adequately controlled Pain: adequately controlled Airway Patency, RR, SpO2: stable & adequate BP & HR: stable & adequate Hydration State: stable & adequate Anesthetic Complications: no major complications apparent and Pt Satisfied with anesthetic care
[2020-03-21] MEDS: LACTULOSE SYRUP 30 GM/45 ML UDP OG SCH (20:01)
[2020-03-21] MEDS: RIFAXIMIN 550 MG TABLET PO SCH (20:01)
[2020-03-21 20:11] LABS: Hematocrit (blood only) 25.1 % (37-47); Hemoglobin 8.3 g/dL (12.0-16.0); Mean Corpuscular Hemoglobin 30.4 pg (25-34); Mean Corpuscular Hgb Conc 33.1 g/dL (32-36); Mean Corpuscular Volume 91.9 fL (80-100); RDW Coefficient of Variation 17.7 % (11.5-14.5); RDW Standard Deviation 59.1 fL (36.4-46.3); Red Blood Count 2.73 M/uL (4.2-5.4); White Blood Count 2.83 K/uL (4.8-10.8)
[2020-03-21 20:42] LABS: Mean Platelet Volume 9.2 fL (7.4-10.4); Platelet Count 37 K/uL (130-400)
[2020-03-21 20:44] LABS: Basophils # (auto) 0.01 K/uL (0-0.2); Basophils % (auto) 0.4 %; Eosinophils % (auto) 3.5 %; Immature Granulocytes # (auto) 0.01 K/uL (0.00-0.02); Immature Granulocytes % (auto) 0.4 %; Lymphocytes # (auto) 0.53 K/uL (1.2-3.4); Lymphocytes % (auto) 18.7 %; Monocytes # (auto) 0.22 K/uL (0.11-0.59); Monocytes % (auto) 7.8 %; Neutrophils # (auto) 1.96 K/uL (1.4-6.5); Neutrophils % (auto) 69.2 %; Ovalocytes 1+
[2020-03-22] MEDS: INSULIN ASPART 100 UNITS/ML 3 ML PEN SC SCH ×5 (00:07→23:24)
[2020-03-22] MEDS: OCTREOTIDE ACETATE 500 MCG in 0.9 % SODIUM CHLORIDE 100 ML IV SCH ×3 (00:33→23:15)
[2020-03-22] MEDS: SODIUM CHLORIDE 0.45 % 1,000 ML IV SCH (00:33)
[2020-03-22] MEDS: propofoL 1,000 MG/100 ML VIAL IV SCH (00:33)
[2020-03-22 04:12] LABS: Hematocrit (blood only) 26.3 % (37-47); Hemoglobin 8.6 g/dL (12.0-16.0); Mean Corpuscular Hemoglobin 29.8 pg (25-34); Mean Corpuscular Hgb Conc 32.7 g/dL (32-36); RDW Coefficient of Variation 17.4 % (11.5-14.5); RDW Standard Deviation 57.1 fL (36.4-46.3); Red Blood Count 2.89 M/uL (4.2-5.4); White Blood Count 3.73 K/uL (4.8-10.8)
[2020-03-22 04:17] LABS: Platelet Count 41 K/uL (130-400)
[2020-03-22] MEDS: PANTOprazole 40 MG in DEXTROSE 5% 100 ML IV SCH ×2 (04:17→07:45)
[2020-03-22 04:21] LABS: INR 1.2 (0.9-1.1); Prothrombin Time 12.4 Seconds (9.0-12.0)
[2020-03-22 04:31] LABS: Albumin Level 2.1 gm/dl (3.4-5.0); BUN Creatinine Ratio 25.7 (10-20); Calcium 7.5 mg/dl (8.5-10.1); Creatinine Clr Calc Pharmacy 19.5 ml/min; Est GFR (Non-African American) 18.1; Magnesium 2.3 mg/dl (1.8-2.4); Potassium 4.9 mmol/L (3.5-5.1)
[2020-03-22 04:34] LABS: Albumin Globulin Ratio 0.5 (0.9-2); Globulin 4.1 gm/dl (2.5-4.0); Phosphorus 5.4 mg/dl (2.5-4.9); Total Protein 6.2 gm/dl (6.4-8.2)
[2020-03-22 04:40] LABS: Basophils # (auto) 0.01 K/uL (0-0.2); Basophils % (auto) 0.3 %; Eosinophils # (auto) 0.16 K/uL (0-0.5); Eosinophils % (auto) 4.3 %; Immature Granulocytes # (auto) 0.01 K/uL (0.00-0.02); Immature Granulocytes % (auto) 0.3 %; Lymphocytes # (auto) 0.49 K/uL (1.2-3.4); Lymphocytes % (auto) 13.1 %; Monocytes # (auto) 0.36 K/uL (0.11-0.59); Monocytes % (auto) 9.7 %; Neutrophils % (auto) 72.3 %; Ovalocytes 1+
[2020-03-22 05:33] LABS: iSTAT Allen Test Pass; iSTAT Art Bld Gas pCO2 Correct 25 mmHg (35-46); iSTAT Art Bld Gas pH Corrected 7.317 (7.35-7.45); iSTAT Arterial Blood Gas HCO3 13 meg/L (19-24); iSTAT Arterial Blood Gas pCO2 24 mmHg (35-46); iSTAT Arterial Blood Gas pH 7.33 (7.35-7.45); iSTAT Arterial Blood Gas pO2 120 mmHg (80-95); iSTAT Arterial Blood Gas pO2 C 126; iSTAT Carbon Dioxide 13 mmol/L (24-31); iSTAT Hematocrit 23 % (37-47); iSTAT Hemoglobin 7.8 g/dl (12.0-16.0); iSTAT Potassium 4.8 mmol/L (3.3-5.0); iSTAT Site L Radial; iSTAT Sodium 147 mmol/L (135-144)
--- NOTE | 2020-03-22 06:41 | Critical Care Progress Note ---
Date of Service March 22, 2020 Assessment & Plan (1) Acute GI bleeding: Reason Critically Ill: 64 yo F PMHx MAE cirrhosis with portal HTN and esophageal varices, DM2, CKD III, chronic pancytopenia, splenomegaly, chronic metabolic acidosis on bicarbonate, GERD and PUD, HTN, psoriatic arthritis who presented with bloody emesis and melena and who was admitted for acute GIB with symptomatic anemia. Now with fever this AM. Neuro - CAM ICU: not performed due to sedation, RASS score -1 Sedation: None Analgesia: None Metabolic/Hepatic encephalopathy: - On arrival with altered mental status, was intubated electively for airway protection and in anticipation of EGD. - History of chronic metabolic acidosis on bicarbonate therapy. - ABG 7.33/24/120/13 -> currently on CPAP as below without sedation. - With elevated ammonia to 200 -> 117 ->131. - OG tube placed and location confirmed with KUB. - Continue home rifaximin 550mg BID (crush tablets per Pharmacy), increase to lactulose 30mg q6h via OG tube. - Goal 3-4 loose BMs / day. - Diuril 500mg IV x1 for diuresis. - Repeat ammonia level, ABG AM. - Will move toward extubation when the patient is more alert. Cardiac - - No acute events on telemetry. - Maintain MAP > 65. HFpEF: - Echo in September 2019: EF 65-70%, no wall motion abnormalities, severe LA dilation, mild pulmonary HTN with RVSP 44, mild MR, mild-moderate TR. - On chronic furosemide 40mg daily at home. - On admission with pre BNP from outside hospital of 20,000. Respiratory - Acute hypoxemic respiratory failure: - Patient with respiratory failure and bilateral consolidations on CT chest. No signs suggestive of PE. - Patient is currently on CPAP. - FiO2 26%, TV 350, RR 14, PEEP 5, PS 5. - CXR 03/22 with no change in mild pulmonary vascular congestion/fluid overload. - COVID 19 test pending, though this is unlikely given patient with minimal travel out of her house and few visitors. - Continue CPAP off of sedation for now. Consider extubation later today depending on progress. GI - Liver cirrhosis 2/2 MAE: - History of, on chronic lactulose and rifaximin therapy for hyperammonemia, though it is unclear if the patient was taking these medications at home. - EGD Nov. 2019: Patient with a history of non-bleeding grade 1 esophageal varices, portal hypertensive gastropathy. - With elevated ammonia to 200 on arrival, decreased to 117 without intervention today. - Resume rifaximin, lactulose via OG tube, however given no BM today will increase from q12h to q6h. Will transition to PO when patient extubated and tolerating PO. Acute GIB: - Likely 2/2 PUD vs. varices. - Prior EGD as above. Most recent colonoscopy 10/21/19: diverticulosis and internal hemorrhoids. - EGD 03/21 showed Grade 2 esophageal varices without acute bleed, moderate- sized gastric AVM which was clipped, and portal gastropathy. - Hgb on arrival 6.0, has received a total of 3u PRBCs. Hemoglobin stable this AM at 8.6. - Continue Protonix IV BID, Octreotide gtt for a total of 3 days (to complete afternoon of 03/23). - Continue Rocephin 2g IV daily. RENAL/LYTES - Hypernatremia, Hyperkalemia: - BMP today: Na stable at 150, K 5.2 -> 4.9, Phos 4.5 -> 5.4, Mg stable. - Diuril 500mg IV x1 to potentiate hyponatremia. - IV fluids transitioned from NSS to 1/2NSS overnight, and stopped this AM. - Repeat BMP AM. HENRIQUE on CKD: - Patient with baseline creatinine ~1.8. - Creatinine 2.65 today despite fluid resuscitation and Diuril x1. - FeNa calculated at 3.2%. - Possible etiologies include hepatorenal syndrome, ATN 2/2 ischemia from acute blood loss. - Continue to optimize renal perfusion with blood products as needed. - Avoid nephrotoxins. - Nephrology consulted and appreciate recommendations: - Because bicarb level <18, recommend starting D5 with bicarb 75meq at decreased rate of 50cc/hr given propensity for fluid overload, then repeat BMP 4 hours following start. - If patient shows worsening signs of fluid overload in that time, d/c fluids. - Continue to monitor hypernatremia and bicarbonate level closely while on fluids. - UTI: - UCx growing gram negative bacilli with >100,000 CFU sensitive to cephalosporins. - Patient without urinary complaints prior to arrival, however with significant AMS so unclear if symptomatic. - Patient with Tmax this AM of 38.1 while weaning off of sedation. - Strict Is/Os. Draining clear yellow urine. Currently +900mL over 24 hours. - Rocephin 2g IV q24h started 03/21. ENDO - - BSG range 114-172 over 24 hours while NPO and intubated. - Lantus 15u daily with SSI. HEME - Pancytopenia: - Hgb on arrival 6.0 -> 8.6 following a total of 3u PRBCs. - History of iron deficiency anemia requiring regular iron infusions, thought to be 2/2 chronic disease. - Likely also with chronic bone marrow suppression 2/2 liver disease. 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 - Plts 41 this AM; now s/p 1u plt transfusion. Recent bleeding and clotting likely cause of further decreased thrombocytopenia from baseline (baseline plt ~55). - Replete blood products as needed to maintain Hgb >8.0. If plts continue to drop <25 can consider further transfusions. - Patient is not actively bleeding, and suspected source of bleeding (AVM) was clipped, so will not replete at this time. - Repeat CBC AM. ID - - Patient with bacteruria as above. - This morning with Tmax 38.1, overall fever curve trend is increasing. - Continue to monitor. - Patient had CXR this AM without evidence of pneumonia. No wounds noted on exam. - UTI currently treated with ceftriaxone. - GI suggests abdominal US to r/o abdominal infectious sources. LINES/IV ACCESS - - PIVs intact bilateral UE. - R IJ in place. DVT PROPHYLAXIS - - Heparin prophylaxis is contraindicated in the setting of acute GIB. Will consider resuming tomorrow AM. - Continue SCDs. Thank you for allowing us to participate in this patient's care. Please refer to Dr. Duckworth's documentation for any further recommendations. (2) Symptomatic anemia: (3) Acute on chronic renal insufficiency: (4) Hyperammonemia: (5) Metabolic acidosis: (6) DVT prophylaxis: (7) Hepatic encephalopathy: (8) Hyperkalemia: (9) Hypernatremia: (10) Acute blood loss anemia: (11) Diabetic nephropathy associated with type 2 diabetes mellitus: (12) Diabetes type 2, uncontrolled: (13) Depression: (14) Hypertension: (15) Iron deficiency anemia: (16) 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: (17) Obstructive sleep apnea: (18) Pancytopenia: (19) CHF (congestive heart failure): (20) Mitral regurgitation: (21) Peptic ulcer disease: (22) Dyslipidemia: (23) GERD (gastroesophageal reflux disease): (24) Chronic kidney disease, stage III (moderate): (25) Fever: Admission and Anticipated Discharge Date Admission Date: March 20, 2020 Supervising Physician Co-Signing Physician Notes Dr. Medina was resident physician during care of patient. I separately evaluated patient for constantino portions of the history and the exam. I was present during the critical portion of medical decision making, and I discussed the case with the resident. I generally agree with the findings and plan. Patient was discussed in multidisciplinary rounds. Patient rather lethargic: Suspect hyperammonemia and hepatic encephalopathy. Currently has NG tube giving lactulose and rifaximin. Patient on minimal vent settings, will move towards extubation when she is more alert and able to respond. Clinical update 1814 patient still largely unresponsive continuing to hold sedation not appropriate candidate for extubation at this time. Subjective Febrile this AM while weaning from sedation. Otherwise no acute events overnight. Review of Systems Review of Systems: Unobtainable due to cognitive status Physical Exam Constitutional: well developed and + ill appearing Eyes: + anicteric sclerae and PERRL No conjunctival injection ENMT: external ear and nose normal, oropharynx normal Head AT/NC No perioral cyanosis Neck: trachea midline, no thyromegaly R internal jugular central line present, clean dry and intact Respiratory: normal respiratory effort Auscultation: + crackles (coarse, diffuse) Cardiovascular: Rate/Rhythm: regular rate and regular rhythm Heart Sounds: + murmur (2+ blowing systolic murmur throughout) Extremities: no edema Gastrointestinal (Abdomen): Inspection/Auscultation: + abdomen distended and normal bowel sounds Percussion/Palpation: abdomen soft and + hepatomegaly Musculoskeletal: Extremities: extremities normal to inspection; no cyanosis and no clubbing Skin: no rashes, warm and dry R IJ, C/D/I R hand peripheral line C/D/I L hand peripheral line C/D/I Neurologic: Motor/Sensory: no tremor PERRL Patient is on CPAP, no sedation Patient responds to voice and opens eyes intermittently, however will not follow commands or look at me. Patellar, plantar, and biceps DTRs present and symmetric bilaterally. Upward Babinski. RASS -1 Psychiatric: No agitation Genitourinary: Collins draining clear yellow urine Lymphatic: No noted lymphadenopathy Results & Data Results & Data ([facility]) Vital Signs (Past 12 Hours) Vital Signs Temp Pulse Resp BP Pulse Ox 03/22/20 06:01 38.0 C H 75 99 03/22/20 05:31 37.9 C H 74 119/58 L 99 03/22/20 05:30 37.9 C H 74 99 03/22/20 05:18 72 18 99 03/22/20 05:00 37.8 C H 73 99 03/22/20 04:31 37.8 C H 71 109/58 L 99 03/22/20 04:30 37.8 C H 72 99 03/22/20 04:00 37.7 C H 71 99 03/22/20 03:31 37.6 C H 70 124/58 L 100 03/22/20 03:30 37.6 C H 70 100 03/22/20 03:00 37.5 C 69 100 03/22/20 02:31 37.4 C 68 122/58 L 99 03/22/20 02:30 37.4 C 68 100 03/22/20 02:08 68 22 100 03/22/20 02:00 37.3 C 68 100 03/22/20 01:31 37.3 C 67 121/59 L 100 03/22/20 01:00 37.2 C 66 100 03/22/20 00:31 37.0 C 67 126/65 100 03/22/20 00:01 36.9 C 65 100 03/21/20 23:31 36.8 C 65 113/52 L 100 03/21/20 23:01 36.7 C 65 20 100 03/21/20 22:31 36.6 C 64 123/65 100 03/21/20 22:00 36.4 C L 63 100 03/21/20 21:31 36.3 C L 63 122/63 100 03/21/20 21:25 59 L 14 100 03/21/20 21:00 36.2 C L 62 100 03/21/20 20:31 36.1 C L 61 135/62 100 03/21/20 20:00 36.0 C L 58 L 100 03/21/20 19:31 36.0 C L 59 L 139/59 L 100 03/21/20 19:00 35.9 C L 58 L 14 139/59 L 100 Critical Care Time Critical Care Time: Yes Total Critical Care Time: 40 I have personally spent 40 minutes of critical care time in the direct management of this patient. This is a life/limb threatening event. This includes time spent evaluating patient, direct bedside care, chart review, placing orders, interpretation of diagnostic studies, discussion with consultants, patient, and/or family members regarding treatment decisions, as well as other required patient management activities. This time is exclusive of all separately billable procedures, and teaching time and separate from and in addition to any other critical care service time. Resident Activity Tracking Resident Involvement: Resident Care Provided Care Provided: Adult [facility] Medicine (1) CHF (congestive heart failure) Heart failure chronicity: acute Heart failure type: unspecified Qualified Code(s): I50.9 - Heart failure, unspecified (2) Iron deficiency anemia Iron deficiency anemia type: other iron deficiency Qualified Code(s): D50.8 - Other iron deficiency anemias (3) Hypertension Hypertension type: essential hypertension Qualified Code(s): I10 - Essential (primary) hypertension
--- NOTE | 2020-03-22 07:16 | XRay Report ---
XR chest 1V portable CLINICAL HISTORY: fever COMPARISON STUDY: 03/20/2020 FINDINGS: There is an endotracheal tube 2 cm above the vicki. There is a nasogastric tube which pass es into the stomach. The cardiac and mediastinal contours remain stable. There is diffuse elevation o f interstitium suggesting mild pulmonary vascular congestion/fluid overload. Postsurgical changes inv olve the right shoulder. There is no lobar consolidation.[ IMPRESSION: 1. Endotracheal tube 2 cm above the vicki 2. Persistent radiographic evidence of mild pulmonary vascular congestion/fluid overload 3. No evidence of lobar consolidation ACT 112: Negative or not required by law. Electronically signed by: Devon Walton M.D. 03/22/2020 7:15 AM
[2020-03-22] MEDS: LACTULOSE SYRUP 30 GM/45 ML UDP OG SCH ×3 (07:57→23:16)
[2020-03-22] MEDS: RIFAXIMIN 550 MG TABLET PO SCH ×2 (07:59→20:19)
[2020-03-22] MEDS ORDERED: CHLOROTHIAZIDE SODIUM 500 MG in DEXTROSE 5% 50 ML IV ONE (09:45)
[2020-03-22] MEDS: PANTOprazole 40 MG in SYRINGE 0 ML IV SCH ×2 (10:02→20:19)
--- NOTE | 2020-03-22 10:59 | Gastroenterology Progress Note ---
Date of Service March 22, 2020 Assessment & Plan (1) Acute GI bleeding: Ms. Sherman is a 64 yr old female with MAE cirrhosis with grade II EV who experienced an UGI bleed likely from portal hypertensive gastropathy or AVM. She is stable post EGD. Plan: 1. Pantoprazole 40 mg IV twice daily. 2. Continue Octreotide drip x total 3 days. 3. Monitor outputs. 4. Restart rifaximin and lactulose. 5. Continue to hold diuretics until time of discharge. No plans for colonoscopy at this time because recent colonoscopy 4 months ago without lesions/polpys. (2) 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: Admission and Anticipated Discharge Date Admission Date: March 20, 2020 Supervising Physician Co-Signing Physician Notes Attg add: I interviewed nad examined pt, reviewed chart and labs. Remains intubated, sedation d/c'd. No gross GIB. VS sig for fever. Labs show persistent hypernatremia, creat above baseline with uop recorded as 2 ml/kg/k=hr and u na 80, hyperchloremic NAG met acidosis with bicarb 12 began bicarb drip per renal. GIB from portal gastropathy or AVM - IV BID PPI, d/c octreotide drip tomorrow, plan abx x 7 d HE - on lactulose Elyte abnl per renal service, hypernatremia likely contributing to HE. Fever - per primary service, rec [id number]. Subjective 64 yr old female hx of polyclonal gammopathy, DM-2 with neuropathy, sleep apnea, followed for MAE cirrhosis with EV, hepatic encephalopathy, ascites. Melena on 03/20. Intubated, ventilated. Hb 6 on arrival, received 3 Units of RBCs -> 8.6 this morning. No BMs since yesterday. No blood in OG. EGD yesterday: non bleeding grade 2 EV Gastric AVM was clipped. Erosion in fundus. Portal Hypertensive Gastropathy - ? bleeding from this Pt with G2 esophageal varix, but absence of stigmata makes this an unlikely cause of bleeding. Review of Systems Review of Systems: not obtainable from pt. GI ROS obtained from nursing. See HPI, otherwise (-). Physical Exam Constitutional: well developed and well nourished appears comfortable Eyes: PERRL, conjunctivae normal, anicteric sclerae ENMT: external ear and nose normal, oropharynx normal Neck: trachea midline, no thyromegaly Respiratory: normal respiratory effort, lungs clear to auscultation intubated Cardiovascular: RRR, no murmur, no edema Gastrointestinal (Abdomen): normal bowel sounds, soft, nontender, no hepatosplenomegaly Skin: no rashes, warm and dry Lymphatic: no cervical or axillary lymphadenopathy Results & Data ([facility]) Vital Signs (Past 12 Hours) Vital Signs Temp Pulse Resp BP Pulse Ox 03/22/20 09:00 38.1 C H 77 99 03/22/20 08:45 38.1 C H 78 99 03/22/20 08:31 38.2 C H 79 131/57 L 99 03/22/20 08:30 38.2 C H 78 99 03/22/20 08:16 38.2 C H 79 99 03/22/20 08:01 38.3 C H 78 98 03/22/20 07:47 11 L 100 03/22/20 07:46 38.3 C H 78 99 03/22/20 07:31 38.3 C H 79 147/81 H 99 03/22/20 07:16 38.4 C H 77 99 03/22/20 07:01 38.3 C H 77 98 03/22/20 06:01 38.0 C H 75 99 03/22/20 05:31 37.9 C H 74 119/58 L 99 03/22/20 05:30 37.9 C H 74 99 03/22/20 05:18 72 18 99 03/22/20 05:00 37.8 C H 73 99 03/22/20 04:31 37.8 C H 71 109/58 L 99 03/22/20 04:30 37.8 C H 72 99 03/22/20 04:00 37.7 C H 71 99 03/22/20 03:31 37.6 C H 70 124/58 L 100 03/22/20 03:30 37.6 C H 70 100 03/22/20 03:00 37.5 C 69 100 03/22/20 02:31 37.4 C 68 122/58 L 99 03/22/20 02:30 37.4 C 68 100 03/22/20 02:08 68 22 100 03/22/20 02:00 37.3 C 68 100 03/22/20 01:31 37.3 C 67 121/59 L 100 03/22/20 01:00 37.2 C 66 100 03/22/20 00:31 37.0 C 67 126/65 100 03/22/20 00:01 36.9 C 65 100 03/21/20 23:31 36.8 C 65 113/52 L 03/21/20 23:01 36.7 C 65 20 100 Laboratory Results WBC 3.7, Hb 8.6, HCT 26, platelets 41, Na 140, K4.8, BUN 69, CR 2.69, glucose 91
--- NOTE | 2020-03-22 11:04 | Medical Student Progress Note ---
Date of Service March 22, 2020 Assessment & Plan (1) Acute GI bleeding: Angela is a 64 F with a PMHx MAE cirrhosis with portal HTN and esophageal varices, DM2, CKD III, chronic pancytopenia, splenomegaly, chronic metabolic acidosis on bicarbonate, GERD and PUD, HTN who presented with bloody emesis and melena. She was admitted for evaluation of an Acute GI bleed with symptomatic anemia, HENRIQUE, and hepatic encephalopathy. Differential: Variceal bleed (ruled out), Peptic Ulcer disease, AVM, Diverticulosis, gastritis, IBD, malignancy Plan: Continue protonix and octeotide drip. Serial crits to evaluate H/H, maintain hemoglobin above 8. Esophogastroduodenoscopy confirmed that the bleedin g is not from varices. EGD did find an AVM which is a possible source of bleeding (although this was not expected as the source). Consult GI for possible further testing. (2) Symptomatic anemia: Monitor H/H. Currently stable. H/H uptrending. (3) Acute on chronic renal insufficiency: (4) Hyperammonemia: Given Lactulose. Downtrending. Continue to monitor (5) Metabolic acidosis: Secondary to HENRIQUE volume depletion and possible ATN Plan: Continue IV NS, monitor for changes. Repeat BMP daily. (6) Hepatic encephalopathy: Continue lactulose and rifaximin. Subjective Angela is still intubated. Should be extubated later today after she wakes up from sedation. She was febrile today as she weened of sedation but is stable per ICU. Esophagastroduodoscopy was completed yesterday. It showed nonbleeding grade II varices in the middle and lower third of the esophagus with no stigmata of bleeding. A small pool of dark blood was in the fundus with no ulcers, no gastric varices, mild portal gastropathy and a non-bleeding AVM that was cauterized. Duodenum was normal. She is stable with anemia (8.6). Still has signs of HENRIQUE (Cr- 2.6, BUN-69, both down-trending). Ammonia is still elevated at 131. Review of Systems Review of Systems: Not obtained as pt is intubated. Physical Exam Constitutional: well developed, well nourished, + acute distress and + ill appearing; not diaphoretic Eyes: PERRL, conjunctivae normal, anicteric sclerae + anicteric sclerae, PERRL and EOM intact bilaterally ENMT: external ear and nose normal, oropharynx normal Neck: trachea midline, no thyromegaly Respiratory: normal respiratory effort, lungs clear to auscultation normal respiratory effort; no cough Auscultation: + wheezes (Expiratory); no crackles and no rhonchi Cardiovascular: RRR, no murmur, no edema Rate/Rhythm: regular rate (bradycardic to 50s) and regular rhythm Heart Sounds: + murmur (2/6 blowing systolic murmur throughout) Chest (Breasts): Chest: normal inspection of chest Gastrointestinal (Abdomen): normal bowel sounds, soft, nontender, no hepatosplenomegaly Inspection/Auscultation: abdomen normal to inspection and normal bowel sounds; abdomen not distended Percussion/Palpation: abdomen soft and + hepatosplenomegaly; abdomen nontender Rectal Exam: + heme positive stool (As per ER physician's exam) Musculoskeletal: Extremities: extremities normal to inspection; no cyanosis and no clubbing Skin: no rashes, warm and dry Neurologic: moves all extremities (And is restless in the legs); + not awake (Sleeping but wakes up and opens eyes to answer some questions) Lymphatic: no cervical or axillary lymphadenopathy no lymphadenopathy and no lymphedema Results & Data ([facility]) Vital Signs (Past 12 Hours) Vital Signs Temp Pulse Resp BP Pulse Ox 03/22/20 09:00 38.1 C H 77 99 03/22/20 08:45 38.1 C H 78 99 03/22/20 08:31 38.2 C H 79 131/57 L 99 03/22/20 08:30 38.2 C H 78 99 03/22/20 08:16 38.2 C H 79 99 03/22/20 08:01 38.3 C H 78 98 03/22/20 07:47 11 L 100 03/22/20 07:46 38.3 C H 78 99 03/22/20 07:31 38.3 C H 79 147/81 H 99 03/22/20 07:16 38.4 C H 77 99 03/22/20 07:01 38.3 C H 77 98 03/22/20 06:01 38.0 C H 75 99 03/22/20 05:31 37.9 C H 74 119/58 L 99 03/22/20 05:30 37.9 C H 74 99 03/22/20 05:18 72 18 99 03/22/20 05:00 37.8 C H 73 99 03/22/20 04:31 37.8 C H 71 109/58 L 99 03/22/20 04:30 37.8 C H 72 99 03/22/20 04:00 37.7 C H 71 99 03/22/20 03:31 37.6 C H 70 124/58 L 100 03/22/20 03:30 37.6 C H 70 100 03/22/20 03:00 37.5 C 69 100 03/22/20 02:31 37.4 C 68 122/58 L 03/22/20 02:30 37.4 C 68 100 03/22/20 02:08 68 22 03/22/20 02:00 37.3 C 68 100 03/22/20 01:31 37.3 C 67 121/59 L 03/22/20 01:00 37.2 C 66 100 03/22/20 00:31 37.0 C 67 126/65 100 03/22/20 00:01 36.9 C 65 100 03/21/20 23:31 36.8 C 65 113/52 L 100 03/21/20 23:01 36.7 C 65 20 100
--- NOTE | 2020-03-22 11:07 | Billing Data ---
Date of Service March 21, 2020 Coding Level of Care Code Critical Care 1st - mins
--- NOTE | 2020-03-22 11:07 | Billing Data ---
Date of Service March 22, 2020 Coding Level of Care Code Critical Care 1st - mins
--- NOTE | 2020-03-22 11:30 | Nephrology Consultation ---
Date of Consultation March 22, 2020 Assessment & Plan (1) Acute on chronic renal insufficiency: (2) Metabolic acidosis: Angela was admitted on 10/08 with GI bleeding and hepatic encephalopathy. Ammonia level was above 200, hemoglobin 6 and platelet in 30s. She received platelet and PRBC transfusion with slight improvement in hemoglobin and platelet. Had EGD showing AVM and pheresis which was clipped. Intubated for airway protection, currently tolerating CPAP. Found to have a KI, creatinine has been staying around 2.6-2.7 with baseline around 2 as with recurrent history of acute kidney injury. Has been having decent urine output. Potassium has been normal. Has metabolic acidosis and hyponatremia. -- Change IV fluid to D5 with bicarb -- monitor intake and output closely, volume status seems to be acceptable, no indication for renal replacement therapy at this time. -- Hemodynamics support, avoid hypotension, keep MAP above 65 -- monitor renal function and electrolytes closely -- avoid nephrotoxic medications, and dose medications for GFR less than 30 Will follow Thank you for allowing me to participate in your patient's care. It was a pleasure to see Angela (3) Hypernatremia: (4) Hyperammonemia: (5) Hepatic encephalopathy: (6) Acute blood loss anemia: History of Present Illness Reason for Consultation: Acute kidney injury and metabolic acidosis with advanced CKD. Attending Physician: Eitan Valencia DO History of Present Illness Ms. Sherman is a 64-year-old female with past medical history significant for stage IIIb /4 CKD, cirrhosis with MAE admitted to the hospital with GI bleeding and hepatics encephalopathy. Nephrology consult was requested to manage HENRIQUE with electrolyte abnormality. Electronic medical records including labs and imaging reviewed in detail during patient's visit. Angela Was admitted to the hospital on 03/20/2020 with GI bleeding and hepatic encephalopathy when she presented with 2 episodes of maroon-colored emesis and dark stool. hemoglobin was found to be 6 and platelet was in 30s, she received 3 units of PRBC and platelet transfusion. On admission she was found to have altered mental status with hepatic encephalopathy and was intubated for airway protection. Ammonia elevated was above 200. Eventually she had EGD showing pheresis as well as AVM which was cauterized. Hemoglobin now slightly improved to 8.0. Platelet staying around 40s. Creatinine on admission was 2.6 which has been since a staying relatively stable over last 2 days although there has been slight variability. Has been having decent urine output. No significant proteinuria. She was found to have non gap metabolic acidosis as well as hyponatremia. Has stage IIIB/4 CKD with variable creatinine around 1.7-2 with recurrent episodes of acute kidney injury, most likely hemodynamically mediated with history of MAE, cirrhosis. Previously had serological workup which was unremarkable for any underlying renal vasculitis. She remained intubated and on sedation however has been maintaining oxygen saturation on CPAP this morning with FiO2 40%. Allergies Allergy/AdvReac Type Severity Reaction Status Date / Time Sulfa (Sulfonamide Allergy Intermediate Rash Verified 03/20/20 14:49 Antibiotics) sulfamethoxazole Allergy Intermediate RASH Verified 03/20/20 14:49 trimethoprim Allergy Intermediate RASH Verified 03/20/20 14:49 Bactrim Allergy Unknown RASH Verified 08/17/14 08:01 amlodipine AdvReac Intermediate confusion Verified 03/20/20 11:43 adhesive tape AdvReac Mild ITCHING Verified 03/20/20 11:43 Home Medications Home Medications Medication Instructions Recorded Confirmed Type ferrous sulfate 325 mg (65 mg 325 mg PO BID tab 01/28/19 03/20/20 History iron) tablet acetaminophen [Tylenol Extra 500 mg PO Q6H PRN 10/04/19 03/20/20 History Strength] mupirocin 2 % topical ointment 1 appln TOP BID #22 gm 10/14/19 03/20/20 Rx nystatin 100,000 unit/gram topical 1 appln TOP BID #30 gm 10/14/19 03/20/20 Rx cream folic acid 1 mg tablet 1 mg PO BID #60 tab 11/10/19 03/20/20 Rx pen needle, diabetic 31 gauge x #100 ea 11/17/19 02/03/20 Rx 3/16" lactulose 20 gram/30 mL oral 45 ml PO BID ml 12/10/19 03/20/20 History solution insulin aspart U-100 100 unit/mL See Rx Instructions SQ TID #15 ml 12/11/19 03/20/20 Rx (3 mL) subcutaneous pen carvedilol 6.25 mg tablet 6.25 mg PO BID #60 tab 12/30/19 03/20/20 Rx hydroxyzine HCl 10 mg tablet 10 mg PO QID PRN #30 tab 12/30/19 03/20/20 Rx blood sugar diagnostic #200 ea 01/06/20 02/03/20 Rx rifaximin 550 mg tablet 550 mg PO BID #180 tab 01/12/20 03/20/20 Rx teriparatide 20 mcg/dose (600 20 mcg SQ QAM 02/03/20 03/20/20 History mcg/2.4 mL) subcutaneous pen injector ropinirole 2 mg tablet 2 mg PO HS #30 tab 03/08/20 03/20/20 Rx calcitriol 0.25 mcg PO 3XWK 03/20/20 03/20/20 History calcium carbonate-vitamin D3 1 tab PO QAM 03/20/20 03/20/20 History [Oyster Shell Calcium-Vit D3] furosemide 40 mg PO QAM 03/20/20 03/20/20 History insulin glargine [Basaglar KwikPen 15 units SUBCUT HS 03/20/20 03/20/20 History U-100 Insulin] mometasone 1 appln TOP QAM 03/20/20 03/20/20 History pantoprazole 40 mg PO QAM 03/20/20 03/20/20 History sodium bicarbonate 650 mg PO BID 03/20/20 03/20/20 History spironolactone 25 mg PO QAM 03/20/20 03/20/20 History Patient History Medical History Anxiety Cardiac murmur Diabetes type 2, uncontrolled Diabetic nephropathy associated with type 2 diabetes mellitus Diabetic peripheral neuropathy associated with type 2 diabetes mellitus Diverticular disease Duodenal ulcer Dysesthesia Esophageal varices Gastric ulcer GERD (gastroesophageal reflux disease) History of recent blood transfusion (~06/2019) Hypertension Liver cirrhosis Loss of protective sensation of skin of foot Nausea and vomiting after administration of anesthetic agent Osteoarthritis Pancytopenia Pleural effusion (Inactive) Pre-ulcerative corn or callous Psoriatic arthritis Pulmonary edema Restless leg syndrome Risk for falls Surgical History History of anesthesia reaction difficult to wake after bladder tack sx History of bilateral cataract extraction History of bladder surgery bladder tack History of colonoscopy History of esophagogastroduodenoscopy (EGD) multiple---[place] 06/22/19 [place] [facility] [place] of hemiarthroplasty of right shoulder January 2018 post fracture History of repair of right rotator cuff History of revision of total shoulder arthroplasty (12/29/18) Right shoulder, 12/29/18 History of shoulder surgery (~11/2019) Had right total arthroplasty removed 11/2019 History of tooth extraction all teeth S/P ORIF (open reduction internal fixation) fracture R shoulder, January 2018 S/P shoulder surgery (11/18/19) R TSA removal, I&D, placement of abx spacer Family History Grandmother (Paternal) Family history of diabetes mellitus Father COPD (chronic obstructive pulmonary disease) Mother Hypertension Family/Other Cancer Sister Ovarian cancer Denies family history of Prostate cancer Myocardial infarction Breast cancer Colorectal cancer Social History Smoking Status: Former smoker Second Hand Exposure: No; Hx Alcohol Use: No Hx Substance Use: No Preferred Language: Thai Communication Ability: Effective Visual Impairment: Limited Hearing Ability: Normal Institutional Nutrition Consultant Required: No Beliefs That Will Affect Care: None marital status: Current Living Situation: Spouse Current Living Situation Comment: Lives with and son current occupational status: retired Feels Safe at Home: Yes Childhood Exposure to Second-Hand Smoke: Yes Diet Comment: regular Dental Care, Regularly: No Physical Activity Frequency: Does not Exercise Seatbelt Use: sometimes Review of Systems Review of Systems: Unobtainable due to endotracheal tube Physical Exam Constitutional: + ill appearing and + mechanically ventilated; no acute distress Eyes: PERRL, conjunctivae normal, anicteric sclerae ENMT: external ear and nose normal, oropharynx normal Ears: no hearing impairment Neck: trachea midline Respiratory: normal respiratory effort Auscultation: + diminished lung sounds Cardiovascular: RRR, no murmur, no edema Gastrointestinal (Abdomen): normal bowel sounds, soft, nontender, no hepatosplenomegaly Percussion/Palpation: abdomen nontender, no guarding and abdomen not rigid Musculoskeletal: Extremities: extremities normal to inspection Gait: normal gait Skin: no rashes, warm and dry Neurologic: remained intubated and sedated. Results & Data Vital Signs (Past 12 Hours) Vital Signs Temp Pulse Resp BP Pulse Ox 03/22/20 11:17 75 9 L 96 03/22/20 09:00 38.1 C H 77 99 03/22/20 08:45 38.1 C H 78 99 03/22/20 08:31 38.2 C H 79 131/57 L 99 03/22/20 08:30 38.2 C H 78 99 03/22/20 08:16 38.2 C H 79 99 03/22/20 08:01 38.3 C H 78 98 03/22/20 07:47 11 L 100 03/22/20 07:46 38.3 C H 78 99 03/22/20 07:31 38.3 C H 79 147/81 H 99 03/22/20 07:16 38.4 C H 77 99 03/22/20 07:01 38.3 C H 77 98 03/22/20 06:01 38.0 C H 75 99 03/22/20 05:31 37.9 C H 74 119/58 L 99 03/22/20 05:30 37.9 C H 74 99 03/22/20 05:18 72 18 99 03/22/20 05:00 37.8 C H 73 99 03/22/20 04:31 37.8 C H 71 109/58 L 99 03/22/20 04:30 37.8 C H 72 99 03/22/20 04:00 37.7 C H 71 99 03/22/20 03:31 37.6 C H 70 124/58 L 100 03/22/20 03:30 37.6 C H 70 100 03/22/20 03:00 37.5 C 69 100 03/22/20 02:31 37.4 C 68 122/58 L 99 03/22/20 02:30 37.4 C 68 100 03/22/20 02:08 68 22 100 03/22/20 02:00 37.3 C 68 100 03/22/20 01:31 37.3 C 67 121/59 L 100 03/22/20 01:00 37.2 C 66 100 03/22/20 00:31 37.0 C 67 126/65 100 03/22/20 00:01 36.9 C 65 100 03/21/20 23:31 36.8 C 65 113/52 L 100 Care Time/CCT Total # of Minutes Spent Total Time Spent with Patient: Total time spent is greater than 50% in coordi nation of care (as documented) at patient's floor/unit and/or counseling patient: Coding Level of Care Code 64313 Inpt Consult Level 5 Diagnoses Acute on chronic renal insufficiency N28.9; N18.9 Metabolic acidosis E87.2 Hypernatremia E87.0 Hyperammonemia E72.20 Hepatic encephalopathy K72.90 Acute blood loss anemia D62
[2020-03-22] MEDS: cefTRIAXone SODIUM 2,000 MG in DEXTROSE 5% 50 ML IV SCH (12:01)
[2020-03-22] MEDS ORDERED: DEXTROSE 5% 1,000 ML IV SCH (14:30)
[2020-03-22 15:27] LABS: BUN Creatinine Ratio 22.9 (10-20); Calcium 7.4 mg/dl (8.5-10.1); Creatinine Clr Calc Pharmacy 18.9 ml/min; Est GFR (Non-African American) 17.3; Potassium 4.8 mmol/L (3.5-5.1)
[2020-03-22] MEDS ORDERED: SODIUM BICARBONATE 8.4% 75 MEQ in DEXTROSE 5% 1,000 ML IV SCH (16:00)
--- NOTE | 2020-03-22 17:59 | Orthopedic Consultation ---
Date of Consultation March 22, 2020 Assessment & Plan (1) Humerus shaft fracture: Age indeterminate incomplete fracture at the distal aspect of the right shoulder antibiotic cement spacer. Patient well known to [facility], Dr Girard, underwent explant of right reverse total shoulder and placement of antibiotic cement spacer in November 2019. Patient recently seen in office on 03/04/20, due to multiple co-morbidities patient not a candidate for revision right total shoulder at this time. Continue with sling immobilization, GIANLUCA ESTEBAN, follow up with Dr. Girard's team 1-2 weeks upon discharge. Thank you for the consultation. History of Present Illness Reason for Consultation: Right humerus fracture Attending Physician: Eitan Valencia DO History of Present Illness The patient is a 64 year old female with significant PMHx for right shoulder katya-prosthetic joint infection, underwent explant and placement of antibiotic cement spacer by Dr. Girard, [facility] [place]. Seen for her 3 month post-operative follow up on 03/04/20. Due to multiple comorbidities no surgery is indicated at this time. Patient is to be seen at her 1 year follow up appointment. Patient admitted to [facility] for acute GI bleed and symptomatic anemia. XRs taken of right humerus demonstrated age indeterminate katya-antibiotic cement spacer fracture. Unclear if recent trauma. Patient currently intubated and the majority of the HPI was obtained from the chart. Allergies Allergy/AdvReac Type Severity Reaction Status Date / Time Sulfa (Sulfonamide Allergy Intermediate Rash Verified 03/20/20 14:49 Antibiotics) sulfamethoxazole Allergy Intermediate RASH Verified 03/20/20 14:49 trimethoprim Allergy Intermediate RASH Verified 03/20/20 14:49 Bactrim Allergy Unknown RASH Verified 08/17/14 08:01 amlodipine AdvReac Intermediate confusion Verified 03/20/20 11:43 adhesive tape AdvReac Mild ITCHING Verified 03/20/20 11:43 Home Medications Home Medications Medication Instructions Recorded Confirmed Type ferrous sulfate 325 mg (65 mg 325 mg PO BID tab 01/28/19 03/20/20 History iron) tablet acetaminophen [Tylenol Extra 500 mg PO Q6H PRN 10/04/19 03/20/20 History Strength] mupirocin 2 % topical ointment 1 appln TOP BID #22 gm 10/14/19 03/20/20 Rx nystatin 100,000 unit/gram topical 1 appln TOP BID #30 gm 10/14/19 03/20/20 Rx cream folic acid 1 mg tablet 1 mg PO BID #60 tab 11/10/19 03/20/20 Rx pen needle, diabetic 31 gauge x #100 ea 11/17/19 02/03/20 Rx 3/16" lactulose 20 gram/30 mL oral 45 ml PO BID ml 12/10/19 03/20/20 History solution insulin aspart U-100 100 unit/mL See Rx Instructions SQ TID #15 ml 12/11/19 03/20/20 Rx (3 mL) subcutaneous pen carvedilol 6.25 mg tablet 6.25 mg PO BID #60 tab 12/30/19 03/20/20 Rx hydroxyzine HCl 10 mg tablet 10 mg PO QID PRN #30 tab 12/30/19 03/20/20 Rx blood sugar diagnostic #200 ea 01/06/20 02/03/20 Rx rifaximin 550 mg tablet 550 mg PO BID #180 tab 01/12/20 03/20/20 Rx teriparatide 20 mcg/dose (600 20 mcg SQ QAM 02/03/20 03/20/20 History mcg/2.4 mL) subcutaneous pen injector ropinirole 2 mg tablet 2 mg PO HS #30 tab 03/08/20 03/20/20 Rx calcitriol 0.25 mcg PO 3XWK 03/20/20 03/20/20 History calcium carbonate-vitamin D3 1 tab PO QAM 03/20/20 03/20/20 History [Oyster Shell Calcium-Vit D3] furosemide 40 mg PO QAM 03/20/20 03/20/20 History insulin glargine [Basaglar KwikPen 15 units SUBCUT HS 03/20/20 03/20/20 History U-100 Insulin] mometasone 1 appln TOP QAM 03/20/20 03/20/20 History pantoprazole 40 mg PO QAM 03/20/20 03/20/20 History sodium bicarbonate 650 mg PO BID 03/20/20 03/20/20 History spironolactone 25 mg PO QAM 03/20/20 03/20/20 History Patient History Medical History Anxiety Cardiac murmur Diabetes type 2, uncontrolled Diabetic nephropathy associated with type 2 diabetes mellitus Diabetic peripheral neuropathy associated with type 2 diabetes mellitus Diverticular disease Duodenal ulcer Dysesthesia Esophageal varices Gastric ulcer GERD (gastroesophageal reflux disease) History of recent blood transfusion (~06/2019) Hypertension Liver cirrhosis Loss of protective sensation of skin of foot Nausea and vomiting after administration of anesthetic agent Osteoarthritis Pancytopenia Pleural effusion (Inactive) Pre-ulcerative corn or callous Psoriatic arthritis Pulmonary edema Restless leg syndrome Risk for falls Surgical History History of anesthesia reaction difficult to wake after bladder tack sx History of bilateral cataract extraction History of bladder surgery bladder tack History of colonoscopy History of esophagogastroduodenoscopy (EGD) multiple---[place] 06/22[place] [facility] [place] of hemiarthroplasty of right shoulder January 2018 post fracture History of repair of right rotator cuff History of revision of total shoulder arthroplasty (12/29/18) Right shoulder, 12/29/18 History of shoulder surgery (~11/2019) Had right total arthroplasty removed 11/2019 History of tooth extraction all teeth S/P ORIF (open reduction internal fixation) fracture R shoulder, January 2018 S/P shoulder surgery (11/18/19) R TSA removal, I&D, placement of abx spacer Family History Grandmother (Paternal) Family history of diabetes mellitus Father COPD (chronic obstructive pulmonary disease) Mother Hypertension Family/Other Cancer Sister Ovarian cancer Denies family history of Prostate cancer Myocardial infarction Breast cancer Colorectal cancer Social History Smoking Status: Former smoker Second Hand Exposure: No; Hx Alcohol Use: No Hx Substance Use: No Preferred Language: Danish Communication Ability: Effective Visual Impairment: Limited Hearing Ability: Normal Engineering Specialist Required: No Beliefs That Will Affect Care: None marital status: Current Living Situation: Spouse Current Living Situation Comment: Lives with and son current occupational status: retired Feels Safe at Home: Yes Childhood Exposure to Second-Hand Smoke: Yes Diet Comment: regular Dental Care, Regularly: No Physical Activity Frequency: Does not Exercise Seatbelt Use: sometimes Review of Systems Review of Systems: Unobtainable due to cognitive status Physical Exam Physical Exam: Limited exam secondary to patient's cognitive state, intubation, +2 radial pulse, compartments soft NT, skin of upper arm without edema or ecchymosis. Results & Data ([facility]) Vital Signs (Past 12 Hours) Vital Signs Temp Pulse Resp BP Pulse Ox 03/22/20 16:31 38.1 C H 79 155/75 H 97 03/22/20 16:30 38.1 C H 78 97 03/22/20 16:15 38.0 C H 79 97 03/22/20 16:01 38.1 C H 78 97 03/22/20 15:47 11 L 03/22/20 15:46 38.1 C H 80 96 03/22/20 15:31 38.1 C H 79 155/67 H 97 03/22/20 15:16 38.1 C H 81 96 03/22/20 15:01 38.1 C H 78 97 03/22/20 14:46 38.1 C H 78 96 03/22/20 14:31 38.1 C H 78 148/67 H 97 03/22/20 14:16 38.1 C H 76 97 03/22/20 14:01 38.1 C H 76 97 03/22/20 13:46 38.0 C H 76 97 03/22/20 13:31 38.0 C H 77 140/65 97 03/22/20 13:30 38.0 C H 76 97 03/22/20 13:15 38.0 C H 77 97 03/22/20 13:11 11 L 96 03/22/20 13:00 38.0 C H 77 97 03/22/20 12:45 38.0 C H 78 97 03/22/20 12:31 38.0 C H 76 134/68 97 03/22/20 12:30 38.0 C H 76 97 03/22/20 12:15 38.0 C H 76 97 03/22/20 12:00 38.0 C H 76 97 03/22/20 11:45 38.0 C H 75 97 03/22/20 11:31 38.0 C H 75 130/61 97 03/22/20 11:30 37.9 C H 75 96 03/22/20 11:17 75 9 L 96 03/22/20 11:15 37.9 C H 76 96 03/22/20 11:00 38.0 C H 76 96 03/22/20 10:45 38.0 C H 75 96 03/22/20 10:31 38.0 C H 76 117/56 L 98 03/22/20 10:30 38.0 C H 75 98 03/22/20 10:15 38.0 C H 76 98 03/22/20 10:00 38.0 C H 74 98 03/22/20 09:45 38.1 C H 76 98 03/22/20 09:31 38.1 C H 77 124/57 L 98 03/22/20 09:30 38.1 C H 77 98 03/22/20 09:15 38.1 C H 78 98 03/22/20 09:00 38.1 C H 77 99 03/22/20 08:45 38.1 C H 78 99 03/22/20 08:31 38.2 C H 79 131/57 L 99 03/22/20 08:30 38.2 C H 78 99 03/22/20 08:16 38.2 C H 79 99 03/22/20 08:01 38.3 C H 78 98 03/22/20 07:47 11 L 100 03/22/20 07:46 38.3 C H 78 99 03/22/20 07:31 38.3 C H 79 147/81 H 99 03/22/20 07:16 38.4 C H 77 99 03/22/20 07:01 38.3 C H 77 98 03/22/20 06:01 38.0 C H 75 99 Diagnostic Findings XR humerus RT 2V CLINICAL HISTORY: Fracture COMPARISON: Right shoulder dated 11/10/2019 DISCUSSION: There is been interval removal of the patient's right shoulder arthroplasty with placement of an antibiotic spacer. Since the prior study, the patient has developed a nondisplaced fracture of the mid humeral shaft at the approximate level of the inferior aspect of the humeral prosthesis. This fracture is age indeterminate. IMPRESSION: 1. Interval removal of the patient's total right shoulder arthroplasty with placement of an antibiotic spacer 2. Nondisplaced mid humeral fracture the exact age of which is uncertain.
[2020-03-22 20:30] LABS: BUN Creatinine Ratio 21.4 (10-20); Calcium 7.6 mg/dl (8.5-10.1); Creatinine Clr Calc Pharmacy 18.2 ml/min; Est GFR (Non-African American) 16.4; Potassium 4.8 mmol/L (3.5-5.1)
--- NOTE | 2020-03-22 21:14 | Hospitalist Progress Note ---
Date of Service March 22, 2020 Assessment & Plan (1) Acute blood loss anemia: EGD on 03/21 with portal gastropathy, varices (no stigmata of bleeding) and gastric AVM, the AVM was clipped Hb stable and BP stable after 3 units of PRBC and one unit platelets recommendations from GI: protonix drip overnight then BID, octreotide drip x 3 days Rocephin x 7 days Hb is 8.6 today, no further signs of active bleeding repeat H/H in the morning (2) GI bleed: based on EGD, likely source is AVM in stomach has varices but no stigmata of recent bleeding again, no signs of active bleeding, continue to monitor (3) Hyperkalemia: Secondary to acute kidney injury Potassium down to 4.8, improvement with volume administration and today with Diuril repeat in the morning (4) Hepatic encephalopathy: Ammonia level 208 on admission, per her , she was not taking Lactulose because she was having loose stools ammonia down to 117 yesterday, up slightly to 130 today continue Rifaximin and Lactulose via OG tube if she is extubated then treat by PO, repeat ammonia in the morning (5) HENRIQUE (acute kidney injury): Creatinine up to 2.69, BUN up to 85, from baseline of creatinine 1.8-2.0 BUN likely also up due to GI bleeding Cr improved initially and now back to 2.69 today consult nephrology, Dr. Alonso recommended sodium bicarb in fluids due to metabolic acidosis follow UO, check BMP in the morning Urine Cr was elevated at 80, do not suspect this is HRS (6) Metabolic acidosis: due to HENRIQUE CO2 remains 14 today treat with sodium bicarb (7) 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: As above, with portal hypertension octreotide drip resume maintenance therapy with diuretics, Rifaximin and lactulose once appropriate (8) Hypernatremia: 147 today (9) Diabetic nephropathy associated with type 2 diabetes mellitus: Noted (10) Diabetes type 2, uncontrolled: Continue Lantus and NovoLog monitor for hypoglycemia (11) Pancytopenia: Secondary to cirrhosis and acute on chronic anemia plts are 41 today Hb up to 8.6 (12) Nocturnal hypoxemia: Wears 2 L nasal cannula at nighttime currently intubated for airway protection (13) Obstructive sleep apnea: Wears 2 L nasal cannula at nighttime (14) Hypertension: Hypertensive currently -Holding home carvedilol, diuretics because of GI bleeding Follow blood pressures (15) Depression: Noted Not currently on medication for this (16) Pulmonary hypertension: Noted on most recent echocardiogram (17) Mitral regurgitation: Mild on most recent echocardiogram (18) Aortic stenosis: Trivial aortic stenosis on most recent echocardiogram (19) Vitamin D deficiency: Hold home vitamin D supplementation (20) Psoriatic arthritis: Not on medications for this (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 Protonix and doing Protonix drip for now (23) Chronic kidney disease, stage III (moderate): Follows with nephrology, baseline creatinine 1.8 as above -Avoid nephrotoxins -renally dose meds when appropriate -follow BMP, Cr is 2.69 today (24) DVT prophylaxis: SCDs only given GI bleeding Disposition-critically ill, admit to ICU, remains intubated for airway protection, management per ICU Admission and Anticipated Discharge Date Admission Date: March 20, 2020 Subjective patient remains intubated today due to encephalopathy ammonia up slightly to 130's Hb is stable appreciate nephrology consult from Dr. Alonso, give fluids with bicarbonate, repeat BMP in the morning Cr is up slightly today at 2.69 discussed with ICU resident no family at the bedside today when I visited Review of Systems Review of Systems: Unobtainable due to endotracheal tube Physical Exam Constitutional: well nourished and + mechanically ventilated; no acute distress Eyes: PERRL, conjunctivae normal, anicteric sclerae ENMT: external ear and nose normal, oropharynx normal Neck: trachea midline, no thyromegaly Respiratory: normal respiratory effort, lungs clear to auscultation Cardiovascular: RRR, no murmur, no edema Gastrointestinal (Abdomen): normal bowel sounds, soft, nontender, no hepatosplenomegaly Musculoskeletal: Head/Neck/Chest: normocephalic, head atraumatic and neck supple Extremities: extremities normal to inspection; no cyanosis, no clubbing and no petechiae Skin: no rashes, warm and dry Neurologic: + obtunded; no focal motor deficits Lymphatic: no cervical or axillary lymphadenopathy Results & Data Results & Data ([place]) Vital Signs (Past 12 Hours) Vital Signs Temp Pulse Resp BP Pulse Ox 03/22/20 18:53 80 10 L 98 03/22/20 18:00 38.0 C H 79 98 03/22/20 17:45 38.0 C H 79 99 03/22/20 17:31 38.1 C H 81 165/81 H 98 03/22/20 17:30 38.1 C H 82 98 03/22/20 17:15 38.0 C H 82 96 03/22/20 17:00 38.0 C H 78 97 03/22/20 16:45 38.0 C H 78 97 03/22/20 16:31 38.1 C H 79 155/75 H 97 03/22/20 16:30 38.1 C H 78 97 03/22/20 16:15 38.0 C H 79 97 03/22/20 16:01 38.1 C H 78 97 03/22/20 15:47 11 L 03/22/20 15:46 38.1 C H 80 96 03/22/20 15:31 38.1 C H 79 155/67 H 97 03/22/20 15:16 38.1 C H 81 96 03/22/20 15:01 38.1 C H 78 97 03/22/20 14:46 38.1 C H 78 96 03/22/20 14:31 38.1 C H 78 148/67 H 97 03/22/20 14:16 38.1 C H 76 97 03/22/20 14:01 38.1 C H 76 97 03/22/20 13:46 38.0 C H 76 97 03/22/20 13:31 38.0 C H 77 140/65 97 03/22/20 13:30 38.0 C H 76 97 03/22/20 13:15 38.0 C H 77 97 03/22/20 13:11 11 L 96 03/22/20 13:00 38.0 C H 77 97 03/22/20 12:45 38.0 C H 78 97 03/22/20 12:31 38.0 C H 76 134/68 97 03/22/20 12:30 38.0 C H 76 97 03/22/20 12:15 38.0 C H 76 97 03/22/20 12:00 38.0 C H 76 97 03/22/20 11:45 38.0 C H 75 97 03/22/20 11:31 38.0 C H 75 130/61 97 03/22/20 11:30 37.9 C H 75 96 03/22/20 11:17 75 9 L 96 03/22/20 11:15 37.9 C H 76 96 03/22/20 11:00 38.0 C H 76 96 03/22/20 10:45 38.0 C H 75 96 03/22/20 10:31 38.0 C H 76 117/56 L 98 03/22/20 10:30 38.0 C H 75 98 03/22/20 10:15 38.0 C H 76 98 03/22/20 10:00 38.0 C H 74 98 03/22/20 09:45 38.1 C H 76 98 03/22/20 09:31 38.1 C H 77 124/57 L 98 03/22/20 09:30 38.1 C H 77 98 03/22/20 09:15 38.1 C H 78 98 Laboratory Results Laboratory Results - last 24 hr 03/22/20 03/22/20 03/22/20 04:02 04:02 04:02 WBC 3.73 L RBC 2.89 L Hgb 8.6 L POC Hgb Hct 26.3 L POC Hct MCV 91.0 MCH 29.8 MCHC 32.7 RDW Std Deviation 57.1 H RDW Coeff of Karina 17.4 H Plt Count 41 L MPV 10.0 Immature Gran % (Auto) 0.3 Neut % (Auto) 72.3 Lymph % (Auto) 13.1 [place] % (Auto) 9.7 Eos % (Auto) 4.3 Baso % (Auto) 0.3 Neut # (Auto) 2.70 Lymph # (Auto) 0.49 L [place] # (Auto) 0.36 Eos # (Auto) 0.16 Baso # (Auto) 0.01 Immature Gran # (Auto) 0.01 Ovalocytes 1+ PT INR Sample Site POC pH POC pCO2 POC pO2 POC HCO3 POC Total CO2 POC Base Excess ABG pH (Temp Correct) ABG pCO2 (Temp Corrct POC ABG pO2 at Pt Temp POC ABG O2 Sat Ari Test O2 Delivery Device POC O2 Rate Minute Ventilation Tidal Volume PEEP POC Sodium Sodium 150 H POC Potassium Potassium 4.9 Chloride 127 H Carbon Dioxide 14 L Anion Gap 9.0 BUN 69 H Creatinine 2.69 H Est Cr Clr Drug Dosing 19.5 Est GFR ( Amer) 21.0 Est GFR (Non-Af Amer) 18.1 BUN/Creatinine Ratio 25.7 H Glucose 88 POC Glucose Calcium 7.5 L Phosphorus 5.4 H Magnesium 2.3 Total Bilirubin 1.0 AST 40 H ALT 22 Alkaline Phosphatase 127 H Ammonia 131.0 H Total Protein 6.2 L Albumin 2.1 L Globulin 4.1 H Albumin/Globulin Ratio 0.5 L 03/22/20 03/22/20 03/22/20 04:02 05:20 11:49 WBC RBC Hgb POC Hgb 7.8 L Hct POC Hct 23 L MCV MCH MCHC RDW Std Deviation RDW Coeff of Karina Plt Count MPV Immature Gran % (Auto) Neut % (Auto) Lymph % (Auto) [place] % (Auto) Eos % (Auto) Baso % (Auto) Neut # (Auto) Lymph # (Auto) [place] # (Auto) Eos # (Auto) Baso # (Auto) Immature Gran # (Auto) Ovalocytes PT 12.4 H INR 1.2 H Sample Site L Radial POC pH 7.33 L POC pCO2 24 L POC pO2 120 H POC HCO3 13 L POC Total CO2 13 L POC Base Excess -13.0 L ABG pH (Temp Correct) 7.317 L ABG pCO2 (Temp Corrct 25 L POC ABG pO2 at Pt Temp 126 POC ABG O2 Sat 99.0 H Ari Test Pass O2 Delivery Device Ventilator POC O2 Rate 14 Minute Ventilation 7.2 Tidal Volume 350 PEEP 5 POC Sodium 147 H Sodium POC Potassium 4.8 Potassium Chloride Carbon Dioxide Anion Gap BUN Creatinine Est Cr Clr Drug Dosing Est GFR ( Amer) Est GFR (Non-Af Amer) BUN/Creatinine Ratio Glucose POC Glucose 112 H Calcium Phosphorus Magnesium Total Bilirubin AST ALT Alkaline Phosphatase Ammonia Total Protein Albumin Globulin Albumin/Globulin Ratio 03/22/20 03/22/20 03/22/20 14:47 18:18 20:04 WBC RBC Hgb POC Hgb Hct POC Hct MCV MCH MCHC RDW Std Deviation RDW Coeff of Karina Plt Count MPV Immature Gran % (Auto) Neut % (Auto) Lymph % (Auto) [place] % (Auto) Eos % (Auto) Baso % (Auto) Neut # (Auto) Lymph # (Auto) [place] # (Auto) Eos # (Auto) Baso # (Auto) Immature Gran # (Auto) Ovalocytes PT INR Sample Site POC pH POC pCO2 POC pO2 POC HCO3 POC Total CO2 POC Base Excess ABG pH (Temp Correct) ABG pCO2 (Temp Corrct POC ABG pO2 at Pt Temp POC ABG O2 Sat Ari Test O2 Delivery Device POC O2 Rate Minute Ventilation Tidal Volume PEEP POC Sodium Sodium 147 H 148 H POC Potassium Potassium 4.8 4.8 Chloride 126 H 125 H Carbon Dioxide 12 L 13 L Anion Gap 9.0 10.0 BUN 64 H 62 H Creatinine 2.80 H 2.92 H Est Cr Clr Drug Dosing 18.9 18.2 Est GFR ( Amer) 20.0 19.0 Est GFR (Non-Af Amer) 17.3 16.4 BUN/Creatinine Ratio 22.9 H 21.4 H Glucose 99 141 H POC Glucose 110 H Calcium 7.4 L 7.6 L Phosphorus Magnesium Total Bilirubin AST ALT Alkaline Phosphatase Ammonia Total Protein Albumin Globulin Albumin/Globulin Ratio Medications Administered Current Inpatient Medications Dextrose (Dextrose 50%) 25 - 50 ml IV UD PRN; Protocol PRN Reason: Hypoglycemia Protocol Stop: 04/19/20 15:14 Fentanyl Citrate (Fentanyl Bolus From Bag) 50 mcg IV Q60M PRN PRN Reason: Pain or Agitation Stop: 04/03/20 15:09 Glucagon (Glucagen) 1 mg IM UD PRN; Protocol PRN Reason: Hypoglycemia Protocol Stop: 04/19/20 15:14 Glucose (Glucose 40%) 15 - 30 gm PO UD PRN; Protocol PRN Reason: Hypoglycemia Protocol Stop: 04/19/20 15:14 Glucose (Dex4 Glucose) 4 - 8 tabs PO UD PRN; Protocol PRN Reason: Hypoglycemia Protocol Stop: 04/19/20 15:14 Octreotide Acetate 500 mcg/ (Sodium Chloride) 105 mls @ 10.5 mls/hr IV .Q10H BOBBY Stop: 04/19/20 10:59 Last Admin: 03/22/20 12:02 Dose: 50 mcg/hr, 10.5 mls/hr Documented by: Propofol (Diprivan) 1,000 mg in 100 mls @ 0 mls/hr IV .Q0M BOBBY; Protocol Stop: 03/23/20 15:14 Last Titration: 03/22/20 06:59 Dose: 0 mcg/kg/min, 0 mls/hr Documented by: Fentanyl Citrate (Fentanyl Drip) 1,250 mcg in 250 mls @ 0 mls/hr IV .Q0M [facility]; Protocol Stop: 04/03/20 15:14 Last Titration: 03/22/20 17:30 Dose: Infused Documented by: Ceftriaxone Sodium 2,000 mg/ (Dextrose) 70 mls @ 140 mls/hr IV Q24H [facility] Stop: 03/27/20 10:59 Last Infusion: 03/22/20 12:35 Dose: Infused Documented by: Pantoprazole Sodium 40 mg/ (Syringe) 10 mls @ 5 mls/min IV BID [facility] Stop: 04/21/20 08:59 Last Admin: 03/22/20 20:19 Dose: 5 mls/min Documented by: Sodium Bicarbonate 75 meq/ (Dextrose) 1,075 mls @ 50 mls/hr IV .[id number] [facility] Stop: 04/21/20 15:59 Last Admin: 03/22/20 15:56 Dose: 50 mls/hr Documented by: Insulin Aspart (Novolog Flexpen) 0 units SC Q6 [facility] Stop: 04/20/20 11:59 Last Admin: 03/22/20 18:22 Dose: Not Given Documented by: Insulin Glargine (Lantus Solostar Pen) 15 units SQ HS [facility] Stop: 04/19/20 20:59 Last Admin: 03/20/20 21:05 Dose: 15 units Documented by: Lactulose (Chronulac) 30 gm OG Q6 [facility] Stop: 04/21/20 16:59 Last Admin: 03/22/20 18:17 Dose: 30 gm Documented by: Midazolam HCl (Versed) 2 mg IV Q2H PRN PRN Reason: RASS goal -1 Stop: 04/19/20 15:09 Last Admin: 03/20/20 16:17 Dose: 2 mg Documented by: Miscellaneous (Carbohydrates For Hypoglycemia) 15 - 30 gm PO UD PRN PRN Reason: Hypoglycemia Treatment Stop: 04/19/20 15:14 Propofol (Diprivan Bolus From Bag) 20 mg IV Q5M PRN PRN Reason: Sedation Stop: 03/23/20 15:09 Rifaximin (Xifaxan) 550 mg PO BID [facility] Stop: 04/20/20 20:59 Last Admin: 03/22/20 20:19 Dose: 550 mg Documented by: PG Care Time/CCT Total # of Minutes Spent Total Time Spent with Patient: Total time spent is greater than 50% in coordination of care (as documented) at patient's floor/unit and/or counseling patient: Coding Level of Care Code 38393 Subseq Hosp Care Lvl 3 Diagnoses Acute blood loss anemia D62 GI bleed K92.2 Hyperkalemia E87.5 Hepatic encephalopathy K72.90 HENRIQUE (acute kidney injury) N17.9 Metabolic acidosis E87.2 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 K75.81; K74.60 Hypernatremia E87.0 Diabetic nephropathy associated with type 2 diabetes mellitus E11.21 Diabetes type 2, uncontrolled E11.65 Pancytopenia D61.818 Nocturnal hypoxemia G47.34 Obstructive sleep apnea G47.33 Hypertension I10 Hypertension type: essential hypertension Depression F32.9 Pulmonary hypertension I27.20 Mitral regurgitation I34.0 Aortic stenosis I35.0 Vitamin D deficiency E55.9 Psoriatic arthritis L40.50 Polyclonal gammopathy D89.0 GERD (gastroesophageal reflux disease) K21.9 Chronic kidney disease, stage III (moderate) N18.3 DVT prophylaxis Z29.9 (1) Hypertension Hypertension type: essential hypertension Qualified Code(s): I10 - Essential (primary) hypertension
[2020-03-22] MEDS: SODIUM BICARBONATE 8.4% 150 MEQ in DEXTROSE 5% 1,000 ML IV SCH (23:15)
[2020-03-23 04:23] LABS: Hematocrit (blood only) 24.8 % (37-47); Hemoglobin 8.3 g/dL (12.0-16.0); Mean Corpuscular Hemoglobin 30.3 pg (25-34); Mean Corpuscular Hgb Conc 33.5 g/dL (32-36); Mean Corpuscular Volume 90.5 fL (80-100); RDW Standard Deviation 55.5 fL (36.4-46.3); Red Blood Count 2.74 M/uL (4.2-5.4)
[2020-03-23 04:38] LABS: Mean Platelet Volume 9.1 fL (7.4-10.4); Platelet Count 34 K/uL (130-400)
[2020-03-23 04:41] LABS: BUN Creatinine Ratio 21.1 (10-20); Calcium 7.4 mg/dl (8.5-10.1); Creatinine Clr Calc Pharmacy 19.1 ml/min; Est GFR (African American) 20.2; Est GFR (Non-African American) 17.4; Magnesium 2.5 mg/dl (1.8-2.4); Potassium 4.3 mmol/L (3.5-5.1)
[2020-03-23 04:44] LABS: Albumin Globulin Ratio 0.5 (0.9-2); Bilirubin,Total 1.5 mg/dl (0.2-1); Phosphorus 5.3 mg/dl (2.5-4.9)
[2020-03-23 04:51] LABS: Basophils # (auto) 0.01 K/uL (0-0.2); Basophils % (auto) 0.2 %; Eosinophils # (auto) 0.17 K/uL (0-0.5); Eosinophils % (auto) 3.6 %; Immature Granulocytes # (auto) 0.01 K/uL (0.00-0.02); Immature Granulocytes % (auto) 0.2 %; Lymphocytes # (auto) 0.64 K/uL (1.2-3.4); Lymphocytes % (auto) 13.6 %; Monocytes # (auto) 0.51 K/uL (0.11-0.59); Monocytes % (auto) 10.9 %; Neutrophils # (auto) 3.36 K/uL (1.4-6.5); Neutrophils % (auto) 71.5 %
[2020-03-23 05:17] LABS: iSTAT Allen Test Pass; iSTAT Arterial Blood Gas HCO3 13 meg/L (19-24); iSTAT Arterial Blood Gas pCO2 23 mmHg (35-46); iSTAT Arterial Blood Gas pH 7.36 (7.35-7.45); iSTAT Arterial Blood Gas pO2 114 mmHg (80-95); iSTAT Carbon Dioxide 14 mmol/L (24-31); iSTAT FiO2 26 %; iSTAT Site L Radial
[2020-03-23] MEDS: LACTULOSE SYRUP 30 GM/45 ML UDP OG SCH ×4 (05:49→23:19)
[2020-03-23] MEDS: INSULIN ASPART 100 UNITS/ML 3 ML PEN SC SCH ×3 (05:49→17:22)
--- NOTE | 2020-03-23 07:46 | Critical Care Progress Note ---
Date of Service March 23, 2020 Assessment & Plan (1) Acute GI bleeding: Reason Critically Ill: 64 yo F PMHx MAE cirrhosis with portal HTN and esophageal varices, DM2, CKD III, chronic pancytopenia, splenomegaly, chronic metabolic acidosis on bicarbonate, GERD and PUD, HTN, psoriatic arthritis who presented with bloody emesis and melena and who was admitted for acute GIB and hepatic encephalopathy. Neuro - [facility] ICU: Negative Sedation: None Analgesia: None Metabolic/Hepatic encephalopathy: - On arrival with altered mental status, was intubated electively for airway protection and in anticipation of EGD. - History of chronic metabolic acidosis on bicarbonate therapy. - ABG 7.36/23/114/13 with base excess -13 -> currently on CPAP as below without sedation. - Ammonia downtrending from 200 on admission -> 52 this AM following a total of 4 loose BMs over 24 hours. - OG tube placed and location confirmed with KUB. - Continue home rifaximin 550mg BID (crush tablets per Pharmacy), lactulose 30mg q6h via OG tube. - Titrate lactulose to goal of 3-4 loose BMs / day. - Repeat ammonia level, ABG AM. - Patient was extubated today. Continue to monitor. - PT/OT/Speech evaluations ordered. Cardiac - - No acute events on telemetry. - Maintain MAP > 65. HFpEF: - Echo in September 2019: EF 65-70%, no wall motion abnormalities, severe LA dilation, mild pulmonary HTN with RVSP 44, mild MR, mild-moderate TR. - On chronic furosemide 40mg daily at home. - On admission with pro BNP from outside hospital of 20,000. - Total output of 1.4L clear yellow urine overnight; total Is/Os +700 for last 24 hours. - Decreased in weight of 0.9kg in 24 hours. - Continue to monitor fluid status, Is/Os. Respiratory - Acute hypoxemic respiratory failure: - Patient with respiratory failure and bilateral consolidations on CT chest. No signs suggestive of PE. - Patient is currently extubated on 2LNC, saturating well. - CXR 03/22 with no change in mild pulmonary vascular congestion/fluid overload. - COVID 19 test pending, though this is unlikely given patient with minimal travel out of the house and few visitors. GI - Liver cirrhosis 2/2 MAE: - History of, on chronic lactulose and rifaximin therapy for hyperammonemia, though it is unclear if the patient was taking these medications at home. Case Management working with family to determine cost of medications for home. - EGD 2018: Patient with a history of non-bleeding grade 1 esophageal varices, portal hypertensive gastropathy. - Repeat EGD with portal gastropathy and Grade 2 esophageal varices without bleeding. - With elevated ammonia to 200 on arrival, decreased to 52 with increase in lactulose to q6h yesterday; patient with 4 BMs over last 24 hours. - Continue rifaximin, lactulose PO once tolerating oral intake. Acute GIB: - Likely 2/2 AVM which was clipped, vs. esophageal varices vs. portal gastropathy. - Prior EGD as above. Most recent colonoscopy 10/21/19: diverticulosis and internal hemorrhoids. - EGD 03/21 showed Grade 2 esophageal varices without acute bleed, moderate- sized gastric AVM which was clipped, and portal gastropathy. - Hgb on arrival 6.0, has received a total of 3u PRBCs. Hemoglobin stable though somewhat decreased at 8.3 this AM. - Continue Protonix IV BID. D/c Octreotide today. - Continue Rocephin 2g IV daily. - Daily CBC. RENAL/LYTES - Hypernatremia, Hyperkalemia: - BMP today: Na with minimal decrease at 148, K 4.3, Phos 5.3, Mg 2.5. - Total free water deficit calculated at 2.1L. - Continue D5W with bicarb at 75cc/hr overnight. - Repeat BMP AM. HENRIQUE on CKD: - Patient with baseline creatinine ~1.8. - Creatinine trend overall is increased, however overnight creatinine decreased from 2.92 -> 2.78 following several hours of infusion D5W with bicarb. - FeNa calculated at 3.2% earlier this admission; likely intrinsic cause given no findings suggesting obstructive process. - Continue to optimize renal perfusion with supplemental fluids as needed. - Avoid nephrotoxins. - Nephrology consulted and appreciate recommendations: - Continue to monitor hypernatremia and bicarbonate level closely while on fluids, and d/c if signs of fluid overload. - UTI: - UCx growing gram negative bacilli with >100,000 CFU sensitive to cephalosporins. - Patient without urinary complaints prior to arrival, however with significant AMS so unclear if symptomatic. - Patient with Tmax over last 24 hours of 38.4 while weaning off of sedation. - Strict Is/Os. Draining clear yellow urine. Currently +700mL over 24 hours, with total UO of 1400mL overnight. - Rocephin 2g IV q24h started 03/21. ENDO - - With some elevation in BSG since start of D5 containing fluids, requiring 1u SSI overnight. - Lantus 15u daily with SSI. HEME - Pancytopenia: - Hgb on arrival 6.0 -> 8.3 following a total of 3u PRBCs. - History of iron deficiency anemia requiring regular iron infusions, thought to be 2/2 chronic disease. - Likely also with chronic bone marrow suppression 2/2 liver disease. 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 - Plts 34 this AM; s/p 1u plt transfusion earlier this admission. Recent bleeding and clotting likely cause of further decreased thrombocytopenia from baseline (baseline plt ~55). - Replete blood products as needed to maintain Hgb >8.0. If plts continue to decrease can consider further transfusions. - Repeat CBC AM. ID - - Patient with bacteruria as above. - This morning with Tmax 38.1, overall fever curve trend is stable. - Continue to monitor. - Patient had CXR 03/22 without evidence of pneumonia. No wounds noted on exam. - UTI currently treated with ceftriaxone. - GI suggests abdominal US to r/o abdominal infectious sources, no findings suggestive of infection. LINES/IV ACCESS - - PIVs intact bilateral UE. - R IJ in place. DVT PROPHYLAXIS - - Heparin prophylaxis contraindicated in the setting of acute GIB. - Continue SCDs. Thank you for allowing us to participate in this patient's care. Please refer to Dr. Duckworth's documentation for any further recommendations. (2) Symptomatic anemia: (3) Acute on chronic renal insufficiency: (4) Hyperammonemia: (5) Metabolic acidosis: (6) DVT prophylaxis: (7) Hepatic encephalopathy: (8) Hyperkalemia: (9) Hypernatremia: (10) Acute blood loss anemia: (11) Diabetic nephropathy associated with type 2 diabetes mellitus: (12) Diabetes type 2, uncontrolled: (13) Depression: (14) Hypertension: (15) Iron deficiency anemia: (16) 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: (17) Obstructive sleep apnea: (18) Pancytopenia: (19) CHF (congestive heart failure): (20) Mitral regurgitation: (21) Peptic ulcer disease: (22) Dyslipidemia: (23) GERD (gastroesophageal reflux disease): (24) Chronic kidney disease, stage III (moderate): (25) Fever: Admission and Anticipated Discharge Date Admission Date: March 20, 2020 Supervising Physician Co-Signing Physician Notes Dr. Medina was resident physician during care of patient. I separately fahad luated patient for constantino portions of the history and the exam. I was present during the critical portion of medical decision making, and I discussed the case with the resident. I generally agree with the findings and plan. Patient was discussed in multidisciplinary rounds. Patient liberated from ventilator today. Continue critically ill at risk for reintubation, however her mental status is slowly continuing to improve. Subjective Overnight, patient had 3 dark, tarry stools, as well as a large dark red blot clot from mouth without further blood. Was intermittently febrile to 38.0. More awake this AM and following some commands. Review of Systems Review of Systems: Shakes head "no" when asked if she is in any pain Otherwise unable to answer due to ET tube and cognitive status Physical Exam Constitutional: well developed and + ill appearing Eyes: + anicteric sclerae and PERRL No conjunctival injection ENMT: external ear and nose normal, oropharynx normal Head AT/NC No perioral cyanosis Neck: trachea midline, no thyromegaly R internal jugular central line present, clean dry and intact Respiratory: normal respiratory effort Auscultation: + crackles (coarse, lower lobes) Cardiovascular: Rate/Rhythm: regular rate and regular rhythm Heart Sounds: + murmur (2/6 blowing systolic murmur throughout) Extremities: no edema Gastrointestinal (Abdomen): Inspection/Auscultation: + abdomen distended and normal bowel sounds Percussion/Palpation: abdomen soft and + hepatomegaly; abdomen nontender and no guarding Musculoskeletal: Extremities: extremities normal to inspection; no cyanosis and no clubbing Skin: no rashes, warm and dry R IJ, C/D/I R hand peripheral line C/D/I L hand peripheral line C/D/I Neurologic: Motor/Sensory: no tremor PERRL Patient is on CPAP settings, no sedation Patient responds to voice, opens eyes and looks at me, squeezes hand bilaterally, wiggles toes Patellar, plantar, and biceps DTRs present and symmetric bilaterally. Upward Babinski. Psychiatric: No agitation Awakens to voice, can shake head for yes/no questions Genitourinary: Collins draining clear yellow urine Lymphatic: No noted lymphadenopathy Results & Data Results & Data ([facility]) Vital Signs (Past 12 Hours) Vital Signs Temp Pulse Resp BP Pulse Ox 03/23/20 06:32 37.3 C 71 165/86 H 99 03/23/20 06:01 37.3 C 77 99 03/23/20 05:31 37.4 C 71 147/66 H 99 03/23/20 05:09 76 12 99 03/23/20 05:00 37.5 C 74 99 03/23/20 04:32 37.5 C 71 132/57 L 99 03/23/20 04:00 37.6 C H 72 99 03/23/20 03:32 37.6 C H 73 146/65 H 99 03/23/20 03:00 37.6 C H 71 99 03/23/20 02:31 37.8 C H 72 149/73 H 99 03/23/20 02:00 37.9 C H 98 03/23/20 01:37 71 10 L 99 03/23/20 01:32 38.0 C H 71 130/62 99 03/23/20 01:00 38.0 C H 73 99 03/23/20 00:32 38.0 C H 74 138/66 99 03/23/20 00:00 38.0 C H 83 99 03/22/20 23:32 38.0 C H 77 157/71 H 99 03/22/20 23:31 38.0 C H 78 99 03/22/20 23:16 38.0 C H 78 99 03/22/20 23:12 79 10 L 99 03/22/20 23:01 37.9 C H 79 99 03/22/20 22:46 37.8 C H 77 99 03/22/20 22:32 37.8 C H 77 167/73 H 99 03/22/20 22:31 37.8 C H 77 99 03/22/20 22:16 37.9 C H 79 99 03/22/20 22:01 38.0 C H 80 99 03/22/20 21:46 38.0 C H 82 98 03/22/20 21:43 12 03/22/20 21:32 38.0 C H 76 159/76 H 99 03/22/20 21:31 38.0 C H 75 99 03/22/20 21:15 38.1 C H 76 99 03/22/20 21:00 38.1 C H 76 99 03/22/20 20:45 38.1 C H 76 98 03/22/20 20:32 38.1 C H 77 167/75 H 98 03/22/20 20:30 38.1 C H 76 99 03/22/20 20:15 38.1 C H 78 99 03/22/20 20:00 38.0 C H 78 98 03/22/20 19:45 38.0 C H 77 98 Resident Activity Tracking Resident Involvement: Resident Care Provided Care Provided: Adult Hospital Medicine (1) CHF (congestive heart failure) Heart failure chronicity: acute Heart failure type: unspecified Qualified Code(s): I50.9 - Heart failure, unspecified (2) Iron deficiency anemia Iron deficiency anemia type: other iron deficiency Qualified Code(s): D50.8 - Other iron deficiency anemias (3) Hypertension Hypertension type: essential hypertension Qualified Code(s): I10 - Essential (primary) hypertension
[2020-03-23] MEDS: RIFAXIMIN 550 MG TABLET PO SCH ×2 (07:59→20:38)
[2020-03-23] MEDS: OCTREOTIDE ACETATE 500 MCG in 0.9 % SODIUM CHLORIDE 100 ML IV SCH (09:14)
[2020-03-23] MEDS: PANTOprazole 40 MG in SYRINGE 0 ML IV SCH ×2 (09:14→20:37)
--- NOTE | 2020-03-23 09:26 | Billing Data ---
Date of Service March 23, 2020 Coding Level of Care Code Critical Care 1st - mins
--- NOTE | 2020-03-23 10:10 | Medical Student Progress Note ---
Date of Service March 23, 2020 Assessment & Plan (1) Acute GI bleeding: Reason Critically Ill: 64 yo F PMHx MAE cirrhosis with portal HTN and esophageal varices, DM2, CKD III, chronic pancytopenia, splenomegaly, chronic metabolic acidosis on bicarbonate, GERD and PUD, HTN, psoriatic arthritis who presented with bloody emesis and melena and who was admitted for acute GIB with symptomatic anemia. Now with fever this AM. Neuro - [facility] ICU: not performed due to sedation, RASS score -1 Sedation: None Analgesia: None Metabolic/Hepatic encephalopathy: - On arrival with altered mental status, was intubated electively for airway protection and in anticipation of EGD. - History of chronic metabolic acidosis on bicarbonate therapy. - ABG 7.36/23/114/13 with base excess -13 -> currently on CPAP as below without sedation. - Ammonia downtrending from 200 on admission -> 52 this AM following a total of 4 loose BMs over 24 hours. - OG tube placed and location confirmed with KUB. - Continue home rifaximin 550mg BID (crush tablets per Pharmacy), lactulose 30mg q6h via OG tube. - Titrate lactulose to goal of 3-4 loose BMs / day. - Repeat ammonia level, ABG AM. - Will move toward extubation when the patient is more alert. Cardiac - - No acute events on telemetry. - Maintain MAP > 65. HFpEF: - Echo in September 2019: EF 65-70%, no wall motion abnormalities, severe LA dilation, mild pulmonary HTN with RVSP 44, mild MR, mild-moderate TR. - On chronic furosemide 40mg daily at home. - On admission with pre BNP from outside hospital of 20,000. - Total output of 1.4L clear yellow urine overnight; total I/O +700 for last 24 hours. - Decreased in weight of 0.9kg in 24 hours. - Continue to monitor fluid status, Is/Os. Respiratory - Acute hypoxemic respiratory failure: - Patient with respiratory failure and bilateral consolidations on CT chest. No signs suggestive of PE. - Patient is currently on CPAP. - FiO2 26%, TV 350, RR 14, PEEP 5, PS 5. - CXR 03/22 with no change in mild pulmonary vascular congestion/fluid overload. - COVID 19 test pending, though this is unlikely given patient with minimal travel out of her house and few visitors. - Continue CPAP off of sedation for now. Consider extubation later today given continued improvement in level of alertness. GI - Liver cirrhosis 2/2 MAE: - History of, on chronic lactulose and rifaximin therapy for hyperammonemia, though it is unclear if the patient was taking these medications at home. - EGD 2018: Patient with a history of non-bleeding grade 1 esophageal varices, portal hypertensive gastropathy. - With elevated ammonia to 200 on arrival, decreased to 52 with increase in lactulose to q6h yesterday; patient with 4 BMs over last 24 hours. - Resume rifaximin, lactulose via OG tube. Will transition to PO when patient is extubated and tolerating PO. Acute GIB: - Likely 2/2 PUD vs. varices. - Prior EGD as above. Most recent colonoscopy 10/21/19: diverticulosis and internal hemorrhoids. - EGD 03/21 showed Grade 2 esophageal varices without acute bleed, moderate- sized gastric AVM which was clipped, and portal gastropathy. - Hgb on arrival 6.0, has received a total of 3u PRBCs. Hemoglobin stable thought somewhat decreased at 8.3 this AM. - Continue Protonix IV BID. D/c Octreotide today. - Continue Rocephin 2g IV daily. RENAL/LYTES - Hypernatremia, Hyperkalemia: - BMP today: Na with minimal decrease at 148, K 4.3, Phos 5.3, Mg 2.5. - IV fluids transitioned yesterday to D5W with bicarb at 50cc/hr, increased to 75cc/hr overnight. - Repeat BMP AM. HENRIQUE on CKD: - Patient with baseline creatinine ~1.8. - Creatinine trend overall is increased, however overnight creatinine decreased from 2.92 -> 2.78 following several hours of infusion D5W with bicarb. - FeNa calculated at 3.2% earlier this admission; likely intrinsic cause given no findings suggesting obstructive process. - Continue to optimize renal perfusion with supplemental fluids as needed. - Avoid nephrotoxins. - Nephrology consulted and appreciate recommendations: - Continue to monitor hypernatremia and bicarbonate level closely while on fluids, and d/c if signs of fluid overload. - UTI: - UCx growing gram negative bacilli with >100,000 CFU sensitive to cephalosporins. - Patient without urinary complaints prior to arrival, however with significant AMS so unclear if symptomatic. - Patient with Tmax over last 24 hours of 38.4 while weaning off of sedation. - Strict Is/Os. Draining clear yellow urine. Currently +700mL over 24 hours, with total UO of 1400mL overnight. - Rocephin 2g IV q24h started 03/21. ENDO - - With some elevation in BSG since start of D5 containing fluids, requiring 1u SSI overnight. - Lantus 15u daily with SSI. HEME - Pancytopenia: - Hgb on arrival 6.0 -> 8.3 following a total of 3u PRBCs. - History of iron deficiency anemia requiring regular iron infusions, thought to be 2/2 chronic disease. - Likely also with chronic bone marrow suppression 2/2 liver disease. 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 - Plts 34 this AM; s/p 1u plt transfusion earlier this admission. Recent bleeding and clotting likely cause of further decreased thrombocytopenia from b aseline (baseline plt ~55). - Replete blood products as needed to maintain Hgb >8.0. If plts continue to drop can consider further transfusions. ID - - Patient with bacteruria as above. - This morning with Tmax 38.1, overall fever curve trend is increasing. - Continue to monitor. - Patient had CXR 03/22 without evidence of pneumonia. No wounds noted on exam. - UTI currently treated with ceftriaxone. - GI suggests abdominal US to r/o abdominal infectious sources, no findings suggestive of infection. LINES/IV ACCESS - - PIVs intact bilateral UE. - R IJ in place. DVT PROPHYLAXIS - - Heparin prophylaxis is contraindicated in the setting of acute GIB. Will consider resuming tomorrow AM. - Continue SCDs. Thank you for allowing us to participate in this patient's care. Please refer to Dr. Duckworth's documentation for any further recommendations. (2) Hepatic encephalopathy: Ammonia level 208 on admission, per her , she was not taking Lactulose because she was having loose stools ammonia down to 117 yesterday, up slightly to 130 today continue Rifaximin and Lactulose via OG tube if she is extubated then treat by PO, repeat ammonia in the morning (3) Hyperkalemia: Secondary to acute kidney injury Potassium down to 4.8, improvement with volume administration and today with Diuril repeat in the morning Subjective Overnight, patient had 3 loose black, tarry stools, as well as a large dark red blot clot from mouth without further blood. Was intermittently febrile to 38.0. Somewhat more awake this AM and following some nursing commands. Review of Systems Review of Systems: Shakes head "no" when asked if she is in any pain Otherwise unable to answer due to ET tube and cognitive status Physical Exam Constitutional: well developed, well nourished, + acute distress and + ill appearing; not diaphoretic Eyes: PERRL, conjunctivae normal, anicteric sclerae + anicteric sclerae, PERRL and EOM intact bilaterally ENMT: external ear and nose normal, oropharynx normal Neck: trachea midline, no thyromegaly Respiratory: normal respiratory effort, lungs clear to auscultation normal respiratory effort; no cough Auscultation: + wheezes (Expiratory); no crackles and no rhonchi Cardiovascular: RRR, no murmur, no edema Rate/Rhythm: regular rate (bradycardic to 50s) and regular rhythm Heart Sounds: + murmur (2/6 blowing systolic murmur throughout) Chest (Breasts): Chest: normal inspection of chest Gastrointestinal (Abdomen): normal bowel sounds, soft, nontender, no hepatosplenomegaly Inspection/Auscultation: abdomen normal to inspection and normal bowel sounds; abdomen not distended Percussion/Palpation: abdomen soft and + hepatosplenomegaly; abdomen nontender Rectal Exam: + heme positive stool (As per ER physician's exam) Musculoskeletal: Extremities: extremities normal to inspection; no cyanosis and no clubbing Skin: no rashes, warm and dry Neurologic: moves all extremities (And is restless in the legs); + not awake (Sleeping but wakes up and opens eyes to answer some questions) Lymphatic: no cervical or axillary lymphadenopathy no lymphadenopathy and no lymphedema Results & Data ([facility]) Vital Signs (Past 12 Hours) Vital Signs Temp Pulse Resp BP Pulse Ox 03/23/20 08:00 37.1 C 69 99 03/23/20 07:40 69 8 L 99 03/23/20 07:32 37.1 C 70 152/68 H 99 03/23/20 07:16 37.2 C 70 99 03/23/20 06:32 37.3 C 71 165/86 H 99 03/23/20 06:01 37.3 C 77 99 03/23/20 05:31 37.4 C 71 147/66 H 99 03/23/20 05:09 76 12 99 03/23/20 05:00 37.5 C 74 99 03/23/20 04:32 37.5 C 71 132/57 L 99 03/23/20 04:00 37.6 C H 72 99 03/23/20 03:32 37.6 C H 73 146/65 H 99 03/23/20 03:00 37.6 C H 71 99 03/23/20 02:31 37.8 C H 72 149/73 H 99 03/23/20 02:00 37.9 C H 98 03/23/20 01:37 71 10 L 99 03/23/20 01:32 38.0 C H 71 130/62 99 03/23/20 01:00 38.0 C H 73 99 03/23/20 00:32 38.0 C H 74 138/66 99 03/23/20 00:00 38.0 C H 83 99 03/22/20 23:32 38.0 C H 77 157/71 H 99 03/22/20 23:31 38.0 C H 78 99 03/22/20 23:16 38.0 C H 78 99 03/22/20 23:12 79 10 L 99 03/22/20 23:01 37.9 C H 79 99 03/22/20 22:46 37.8 C H 77 99 03/22/20 22:32 37.8 C H 77 167/73 H 99 03/22/20 22:31 37.8 C H 77 99 03/22/20 22:16 37.9 C H 79 99
[2020-03-23] MEDS: cefTRIAXone SODIUM 2,000 MG in DEXTROSE 5% 50 ML IV SCH (10:12)
--- NOTE | 2020-03-23 10:21 | Nephrology Progress Note ---
Date of Service March 23, 2020 Assessment & Plan (1) Acute on chronic renal insufficiency: (2) Metabolic acidosis: Angela was admitted on 10/08 with GI bleeding and hepatic encephalopathy. Ammonia level was above 200, hemoglobin 6 and platelet in 30s. She received platelet and PRBC transfusion with slight improvement in hemoglobin and platelet. Had EGD showing AVM and pheresis which was clipped. Intubated for airway protection, currently tolerating CPAP. Found to have HENRIQUE, creatinine has been staying around 2.6-2.7 with baseline around 2 as with recurrent history of acute kidney injury. Has been having decent urine output. Potassium has been normal. Has metabolic acidosis and hypernatremia. Extubated this morning, currently on nasal cannula oxygen. no significant change in renal function, however has decent urine output. -- Continue D5 with bicarb 4.2%, encourage oral free water intake as she is currently extubated hopefully she will be able to start taking p.o. soon -- monitor intake and output closely -- monitor renal function and electrolytes closely -- avoid nephrotoxic medications, and dose medications for GFR less than 30 Will follow (3) Hypernatremia: (4) Hyperammonemia: (5) Hepatic encephalopathy: (6) Acute blood loss anemia: Admission and Anticipated Discharge Date Admission Date: March 20, 2020 Subjective Angela Was seen and examined in ICU this morning. She was just extubated, awake, alert. Denies shortness of breath. Has been afebrile. Decent urine output. Blood pressure slightly elevated, seems overall slightly volume overloaded. No significant change in renal function, continues to have non gap metabolic acidosis, sodium mildly elevated. Review of Systems Review of Systems: All systems reviewed & are unremarkable except as noted in HPI & below Physical Exam Constitutional: + ill appearing; no acute distress Neck: normal visual inspection Respiratory: normal respiratory effort; no respiratory distress Auscultation: + diminished lung sounds Cardiovascular: Rate/Rhythm: regular rate and regular rhythm Heart Sounds: normal S1 and normal S2 Extremities: + edema Skin: no rashes, warm and dry Neurologic: awake; no focal motor deficits and not confused Psychiatric: Orientation: alert Results & Data ([facility]) Vital Signs (Past 12 Hours) Vital Signs Temp Pulse Resp BP Pulse Ox 03/23/20 08:00 37.1 C 69 99 03/23/20 07:40 69 8 L 99 03/23/20 07:32 37.1 C 70 152/68 H 99 03/23/20 07:16 37.2 C 70 99 03/23/20 06:32 37.3 C 71 165/86 H 99 03/23/20 06:01 37.3 C 77 99 03/23/20 05:31 37.4 C 71 147/66 H 99 03/23/20 05:09 76 12 99 03/23/20 05:00 37.5 C 74 99 03/23/20 04:32 37.5 C 71 132/57 L 99 03/23/20 04:00 37.6 C H 72 99 03/23/20 03:32 37.6 C H 73 146/65 H 99 03/23/20 03:00 37.6 C H 71 99 03/23/20 02:31 37.8 C H 72 149/73 H 99 03/23/20 02:00 37.9 C H 98 03/23/20 01:37 71 10 L 99 03/23/20 01:32 38.0 C H 71 130/62 99 03/23/20 01:00 38.0 C H 73 99 03/23/20 00:32 38.0 C H 74 138/66 99 03/23/20 00:00 38.0 C H 83 99 03/22/20 23:32 38.0 C H 77 157/71 H 99 03/22/20 23:31 38.0 C H 78 99 03/22/20 23:16 38.0 C H 78 99 03/22/20 23:12 79 10 L 99 03/22/20 23:01 37.9 C H 79 99 03/22/20 22:46 37.8 C H 77 99 03/22/20 22:32 37.8 C H 77 167/73 H 99 03/22/20 22:31 37.8 C H 77 99 03/22/20 22:16 37.9 C H 79 99 PG Care Time/CCT Total # of Minutes Spent Total Time Spent with Patient: Total time spent is greater than 50% in coordination of care (as documented) at patient's floor/unit and/or counseling patient: Coding Level of Care Code 22983 Subseq Hosp Care Lvl 3 Diagnoses Acute on chronic renal insufficiency N28.9; N18.9 Metabolic acidosis E87.2 Hypernatremia E87.0 Hyperammonemia E72.20 Hepatic encephalopathy K72.90 Acute blood loss anemia D62
--- NOTE | 2020-03-23 10:35 | Medical Student Progress Note ---
Date of Service March 23, 2020 Assessment & Plan (1) Acute GI bleeding: Angela is a 64 yo female with a PMHx of MAE, cirrhosis, insulin dependent T2DM, HTN, and reccurent HENRIQUE who presented for maroon colored vomit and black stools. Upon admission she was seen to have a prerenal HENRIQUE consistent with volume depletion and hepatic encephalopathy Hepatic encephalopathy: Ammonia is downtrending from 200 on admission to 52 today. An OG tube was placed to change to PO lactulose. Continue rifixamin BID (crush tablets). Titrate lactulose to 3-4 loose BM/day. Extubate when MS is appropriate per Dr. Cadet. Respiratory Was taken off sedation this morning. Continue to monitor. Extubate later today if there is improvement in her MS. . GI - Likely varices or PUD. Continue protonix IV BID and recephin 2g IV daily. D/c octeotide. RENAL/LYTES - Hypernatremia, Hyperkalemia: BMP today: Na with minimal decrease at 148, K 4.3, Phos 5.3, Mg 2.5. IV fluids transitioned yesterday to D5W with bicarb at 50cc/hr, increased to 75cc/hr overnight.Repeat BMP AM. HENRIQUE on CKD: - Patient with baseline creatinine ~1.8. - Creatinine trend overall is increased, however overnight creatinine decreased from 2.92 -> 2.78 following several hours of infusion D5W with bicarb. - FeNa calculated at 3.2% earlier this admission; likely intrinsic cause given no findings suggesting obstructive process. - Continue to optimize renal perfusion with supplemental fluids as needed. - Avoid nephrotoxins. - UTI with gram negative bacilli sensative to cephalosporins. Tmax 38.4 while weaning off sedation. Rocephin started 2g IV q24h. DVT PROPHYLAXIS - - Heparin prophylaxis is contraindicated in the setting of acute GIB. Consider resuming per ICU. (2) Hepatic encephalopathy: Ammonia is downtrending from 200 on admission to 52 today. An OG tube was placed to change to PO lactulose. Continue rifixamin BID (crush tablets). Titrate lactulose to 3-4 loose BM/day. Extubate when MS is appropriate per Dr. Cadet. (3) Hyperkalemia: Secondary to acute kidney injury. Potassium down to 4.8, improvement with volume administration and today with Diuril. Ana Miller is a 64 yo female with a PMHx of MAE, cirrhosis, insulin dependent T2DM, HTN, and reccurent HENRIQUE who presented for maroon colored vomit and black stools. Upon admission she was seen to have a prerenal HENRIQUE consistent with volume depletion and hepatic encephalopathy. She was intubated for hepatic encephalopathy and EGD. EGD showed nonbleeding grade II varices, darkened blood in the fundus and a nonbleeding AVM. AVM was cautorized. GI bleed is being medi slick treated with octreotide protonix and recephin. Hepatic encephalopathy is being treated with lactulose and rifixamin. Nephrology was consulted late yesterday and they recommended D5NS with bicarb for her metabolic acidosis. Yesterday her Ucx grew gram negative bacilli sensitive to cephalosporins. No signs of infection Tmax 38.1 while weaning of sedation. Rocephin 2gIV was started. Overnight she had 3 loose black tary stools and a dark clot from mouth. Today she is no longer on sedation. She is able to wake up briefly and state she is in no pain. Will be evaluated for extubation by Dr. Shepherd today. Review of Systems Review of Systems: Unobtainable due to endotracheal tube Physical Exam Constitutional: well developed, well nourished, + ill appearing, + lethargic and + mechanically ventilated; no acute distress and not diaphoretic Eyes: PERRL, conjunctivae normal, anicteric sclerae + anicteric sclerae and EOM intact bilaterally ENMT: Mouth: + edentulous Mallampati Class: Other (unable to assess. pt intubated and sedated ) Neck: trachea midline, no thyromegaly normal visual inspection and trachea midline Respiratory: normal respiratory effort, lungs clear to auscultation normal respiratory effort; no cough Auscultation: lungs clear to auscultation bilaterally, + diminished lung sounds, + crackles (coarse, lower lobes) and + wheezes (Expiratory); no rhonchi Cardiovascular: RRR, no murmur, no edema Rate/Rhythm: regular rate and regular rhythm Heart Sounds: + murmur (2/6 blowing systolic murmur throughout) Extremities: no edema Chest (Breasts): Chest: normal inspection of chest Gastrointestinal (Abdomen): normal bowel sounds, soft, nontender, no hepatosplenomegaly Inspection/Auscultation: abdomen normal to inspection, + abdomen distended and normal bowel sounds Percussion/Palpation: abdomen soft, + hepatosplenomegaly and + hepatomegaly; abdomen nontender, no guarding and abdomen not rigid Rectal Exam: + heme positive stool (As per ER physician's exam) Musculoskeletal: Head/Neck/Chest: normocephalic, head atraumatic and neck supple Extremities: extremities normal to inspection; no cyanosis, no clubbing and no petechiae Gait: normal gait Skin: no rashes, warm and dry Neurologic: moves all extremities (And is restless in the legs) and + obtunded; + not awake (Sleeping but wakes up and opens eyes to answer some questions) and not confused Lymphatic: no cervical or axillary lymphadenopathy no lymphadenopathy and no lymphedema Results & Data ([facility]) Vital Signs (Past 12 Hours) Vital Signs Temp Pulse Resp BP Pulse Ox 03/23/20 08:00 37.1 C 69 99 03/23/20 07:40 69 8 L 99 03/23/20 07:32 37.1 C 70 152/68 H 99 03/23/20 07:16 37.2 C 70 99 03/23/20 06:32 37.3 C 71 165/86 H 99 03/23/20 06:01 37.3 C 77 99 03/23/20 05:31 37.4 C 71 147/66 H 99 03/23/20 05:09 76 12 99 03/23/20 05:00 37.5 C 74 99 03/23/20 04:32 37.5 C 71 132/57 L 99 03/23/20 04:00 37.6 C H 72 99 03/23/20 03:32 37.6 C H 73 146/65 H 99 03/23/20 03:00 37.6 C H 71 99 03/23/20 02:31 37.8 C H 72 149/73 H 99 03/23/20 02:00 37.9 C H 98 03/23/20 01:37 71 10 L 99 03/23/20 01:32 38.0 C H 71 130/62 99 03/23/20 01:00 38.0 C H 73 99 03/23/20 00:32 38.0 C H 74 138/66 99 03/23/20 00:00 38.0 C H 83 99 03/22/20 23:32 38.0 C H 77 157/71 H 99 03/22/20 23:31 38.0 C H 78 99 03/22/20 23:16 38.0 C H 78 99 03/22/20 23:12 79 10 L 99 03/22/20 23:01 37.9 C H 79 99 03/22/20 22:46 37.8 C H 77 99 03/22/20 22:32 37.8 C H 77 167/73 H 99 03/22/20 22:31 37.8 C H 77 99 03/22/20 22:16 37.9 C H 79 99
--- NOTE | 2020-03-23 11:03 | Gastroenterology Progress Note ---
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 portal hypertensive gastropathy. No evidence of bleeding since very early yesterday. Encephalopathy slowly improving 1. Has completed 3 days of Octreotide, so will DC. 2. Continue Protonix IV BID, may change to po when taking po well. 3. Continue lactulose/rifaximin 4. Restart diuretics at discharge. 5. Appreciate nephrology and primary services management of HENRIQUE electrolyte derangement. 6. Continue antibiotics x 7 days total. Present on Admission?: Yes (2) Acute GI bleeding: Present on Admission?: Yes Admission and Anticipated Discharge Date Admission Date: March 20, 2020 Supervising Physician Co-Signing Physician Notes Att add: I interviewed and examined pt, reviewed chart and labs. Pt extubated, awakens but remains confused. VS sig for fever. Exam shows no ascites. Labs show slowly improving creat, Na 149, bicarb 18. Regarding GIB - change to IV BID PPI. OK to d/c octreotide. ABx x 7 days. Regarding HE - cont lactulose, xifaxan. Lytes, ARF - per renal. Fever - ? source. Check C diff, further w/u per primary service Subjective 64 yr old female hx of polyclonal gammopathy, DM-2 with neuropathy, sleep apnea, followed for MAE cirrhosis with EV, hepatic encephalopathy, ascites. Melena on 03/20. Intubated, ventilated. Hb 6 on arrival, received 3 Units of RBCs -> 8.6 yesterday -> 8.3 today. BMs- brown loose this morning Febrile: T max 38.2 last night, afebrile today. EGD on 01/19 with non bleeding grade 2 EV, Gastric AVM was clipped, gastric erosion, PHG. Being extubated today. Review of Systems Constitutional: + fever and + weakness unable to get a full ROS as pt was still intubated at the time of interview Eyes: no icterus Physical Exam Constitutional: well developed and well nourished Eyes: PERRL, conjunctivae normal, anicteric sclerae ENMT: external ear and nose normal, oropharynx normal Neck: trachea midline, no thyromegaly Respiratory: normal respiratory effort, lungs clear to auscultation Cardiovascular: RRR, no murmur, no edema Gastrointestinal (Abdomen): normal bowel sounds, soft, nontender, no hepatosplenomegaly Skin: no rashes, warm and dry Lymphatic: no cervical or axillary lymphadenopathy Results & Data ([facility]) Vital Signs (Past 12 Hours) Vital Signs Temp Pulse Resp BP Pulse Ox 03/23/20 10:32 78 168/71 H 99 03/23/20 10:30 76 99 03/23/20 10:00 75 99 03/23/20 09:35 75 167/70 H 98 03/23/20 09:32 70 167/70 H 99 03/23/20 09:30 72 100 03/23/20 09:00 37.1 C 70 99 03/23/20 08:32 37.1 C 69 164/77 H 99 03/23/20 08:30 37.1 C 70 99 03/23/20 08:00 37.1 C 69 99 03/23/20 07:40 69 8 L 99 03/23/20 07:32 37.1 C 70 152/68 H 99 03/23/20 07:16 37.2 C 70 99 03/23/20 06:32 37.3 C 71 165/86 H 99 03/23/20 06:01 37.3 C 77 99 03/23/20 05:31 37.4 C 71 147/66 H 99 03/23/20 05:09 76 12 99 03/23/20 05:00 37.5 C 74 99 03/23/20 04:32 37.5 C 71 132/57 L 99 03/23/20 04:00 37.6 C H 72 99 03/23/20 03:32 37.6 C H 73 146/65 H 99 03/23/20 03:00 37.6 C H 71 99 03/23/20 02:31 37.8 C H 72 149/73 H 99 03/23/20 02:00 37.9 C H 98 03/23/20 01:37 71 10 L 99 03/23/20 01:32 38.0 C H 71 130/62 99 03/23/20 01:00 38.0 C H 73 99 03/23/20 00:32 38.0 C H 74 138/66 99 03/23/20 00:00 38.0 C H 83 99 03/22/20 23:32 38.0 C H 77 157/71 H 99 08/04/20 23:31 38.0 C H 78 99 03/22/20 23:16 38.0 C H 78 99 03/22/20 23:12 79 10 L 99 03/22/20 23:01 37.9 C H 79 99
[2020-03-23] MEDS: SODIUM BICARBONATE 8.4% 150 MEQ in DEXTROSE 5% 1,000 ML IV SCH (13:23)
[2020-03-23] MEDS: SODIUM BICARBONATE 8.4% 75 MEQ in DEXTROSE 5% 1,000 ML IV SCH (17:20)
[2020-03-23 18:00] LABS: Calcium 7.4 mg/dl (8.5-10.1); Creatinine Clr Calc Pharmacy 21.6 ml/min; Est GFR (African American) 23.6; Est GFR (Non-African American) 20.4; Potassium 3.9 mmol/L (3.5-5.1)
[2020-03-23] MEDS: INSULIN GLARGINE SOLOSTAR 100 UNITS/ML 3 ML PEN SQ SCH (20:38)
--- NOTE | 2020-03-23 20:44 | Hospitalist Progress Note ---
Date of Service March 23, 2020 Assessment & Plan (1) Acute GI bleeding: (1) Acute blood loss anemia: EGD on 03/21 with portal gastropathy, varices (no stigmata of bleeding) and gastric AVM, the AVM was clipped Hb stable and BP stable after 3 units of PRBC and one unit platelets recommendations from GI: protonix drip overnight then BID, octreotide drip x 3 days Rocephin x 7 days Hb is 8.3 today, some melena today? will monitor Hb closey and look for any further signs of bleeding GI aware, they are following repeat H/H in the morning (2) GI bleed: based on EGD, likely source is AVM in stomach has varices but no stigmata of recent bleeding some melena today, could be old blood? Hb is stable at 8.3, continue to monitor (3) Hyperkalemia: Secondary to acute kidney injury Potassium down to 3.9, improvement with volume administration and Diuril repeat in the morning (4) Hepatic encephalopathy: Ammonia level 208 on admission, per her , she was not taking Lactulose because she was having loose stools ammonia down to 52 today continue Rifaximin and Lactulose, change to PO now that she is extubated still lethargic today, slightly responsive (5) HENRIQUE (acute kidney injury): Creatinine up to 2.69, BUN up to 85, from baseline of creatinine 1.8-2.0 BUN likely also up due to GI bleeding Cr improved initially, up to 2.9 and then down to 2.44 this evening consult nephrology, Dr. Alonso following, appreciate her input recommended sodium bicarb in fluids due to metabolic acidosis follow UO (she is non-oliguric), check BMP in the morning Urine Cr was elevated at 80, do not suspect this is HRS (6) Metabolic acidosis: due to HENRIQUE CO2 up to 18 today treat with sodium bicarb (7) 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: As above, with portal hypertension octreotide drip for three days resume maintenance therapy with diuretics, Rifaximin and lactulose once appropriate (8) Hypernatremia: 149 today, giving free water to correct, encourage PO intake (9) Diabetic nephropathy associated with type 2 diabetes mellitus: Noted (10) Diabetes type 2, uncontrolled: Continue Lantus and NovoLog monitor for hypoglycemia (11) Pancytopenia: Secondary to cirrhosis and acute on chronic anemia counts are low but stable (12) Nocturnal hypoxemia: Wears 2 L nasal cannula at nighttime (13) Obstructive sleep apnea: Wears 2 L nasal cannula at nighttime (14) Hypertension: Hypertensive currently -Holding home carvedilol, diuretics because of GI bleeding Follow blood pressures (15) Depression: Noted Not currently on medication for this (16) Pulmonary hypertension: Noted on most recent echocardiogram (17) Mitral regurgitation: Mild on most recent echocardiogram (18) Aortic stenosis: Trivial aortic stenosis on most recent echocardiogram (19) Vitamin D deficiency: Hold home vitamin D supplementation (20) Psoriatic arthritis: Not on medications for this (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 Protonix and doing Protonix drip for now (23) Chronic kidney disease, stage III (moderate): Follows with nephrology, baseline creatinine 1.8 as above -Avoid nephrotoxins -renally dose meds when appropriate -follow BMP, Cr is 2.44 today (24) DVT prophylaxis: SCDs only given GI bleeding Disposition- remain in ICU again this evening, just extubated today, assess for transfer to PCU tomorrow (2) Hepatic encephalopathy: (3) Hyperkalemia: (4) Proximal humerus fracture: (5) Fever: (6) 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: (7) Acute on chronic renal insufficiency: (8) Hyperammonemia: (9) Metabolic acidosis: (10) Hypernatremia: (11) Acute blood loss anemia: (12) Diabetic nephropathy associated with type 2 diabetes mellitus: Admission and Anticipated Discharge Date Admission Date: March 20, 2020 Subjective patient extubated today, breathing stable on nasal canula still rather somnolent reviewed labs, ammonia down to 50's, Cr rising, Hb is stable at 8.3 patient reportedly had some melena she is moving bowels frequently with her lactulose discussed with ICU resident, will remain in ICU for time being Review of Systems Review of Systems: Unobtainable due to reduced consciousness Physical Exam Constitutional: well nourished and + lethargic; no acute distress Eyes: PERRL, conjunctivae normal, anicteric sclerae ENMT: external ear and nose normal, oropharynx normal Neck: trachea midline, no thyromegaly Respiratory: normal respiratory effort, lungs clear to auscultation Cardiovascular: RRR, no murmur, no edema Gastrointestinal (Abdomen): normal bowel sounds, soft, nontender, no hepatosplenomegaly Musculoskeletal: Head/Neck/Chest: normocephalic, head atraumatic and neck supple Extremities: extremities normal to inspection; no cyanosis, no clubbing and no petechiae Skin: no rashes, warm and dry Neurologic: + obtunded; no focal motor deficits Lymphatic: no cervical or axillary lymphadenopathy Results & Data Results & Data ([facility]) Vital Signs (Past 12 Hours) Vital Signs Temp Pulse BP Pulse Ox 03/23/20 18:00 36.7 C 73 98 03/23/20 17:39 79 148/95 H 96 03/23/20 17:00 76 98 03/23/20 16:32 74 154/61 H 98 03/23/20 16:00 36.8 C 75 97 03/23/20 15:32 75 167/70 H 98 03/23/20 15:01 76 98 03/23/20 14:32 73 154/66 H 99 03/23/20 14:01 82 98 03/23/20 13:56 84 197/89 H 97 03/23/20 13:32 78 183/75 H 99 03/23/20 13:01 76 99 03/23/20 12:32 76 178/68 H 99 03/23/20 12:00 36.8 C 75 98 03/23/20 11:32 75 160/67 H 99 03/23/20 11:00 79 98 03/23/20 10:32 78 168/71 H 99 03/23/20 10:30 76 99 03/23/20 10:00 75 99 03/23/20 09:35 75 167/70 H 98 03/23/20 09:32 70 167/70 H 99 03/23/20 09:30 72 100 03/23/20 09:00 37.1 C 70 99 Laboratory Results Laboratory Results - last 24 hr 03/20/20 03/22/20 03/23/20 10:38 23:22 04:14 WBC 4.70 L RBC 2.74 L Hgb 8.3 L Hct 24.8 L MCV 90.5 MCH 30.3 MCHC 33.5 RDW Std Deviation 55.5 H RDW Coeff of Karina 17.0 H Plt Count 34 L MPV 9.1 Immature Gran % (Auto) 0.2 Neut % (Auto) 71.5 Lymph % (Auto) 13.6 [place] % (Auto) 10.9 Eos % (Auto) 3.6 Baso % (Auto) 0.2 Neut # (Auto) 3.36 Lymph # (Auto) 0.64 L [place] # (Auto) 0.51 Eos # (Auto) 0.17 Baso # (Auto) 0.01 Immature Gran # (Auto) 0.01 Sample Site POC pH POC pCO2 POC pO2 POC HCO3 POC Total CO2 POC Base Excess POC ABG O2 Sat Ari Test O2 Delivery Device POC FiO2 PEEP Sodium Potassium Chloride Carbon Dioxide Anion Gap BUN Creatinine Est Cr Clr Drug Dosing Est GFR ( Amer) Est GFR (Non-Af Amer) BUN/Creatinine Ratio Glucose POC Glucose 151 H Calcium Phosphorus Magnesium Total Bilirubin AST ALT Alkaline Phosphatase Ammonia Total Protein Albumin Globulin Albumin/Globulin Ratio Crossmatch See Detail 03/23/20 03/23/20 03/23/20 04:14 04:14 05:04 WBC RBC Hgb Hct MCV MCH MCHC RDW Std Deviation RDW Coeff of Karina Plt Count MPV Immature Gran % (Auto) Neut % (Auto) Lymph % (Auto) [place] % (Auto) Eos % (Auto) Baso % (Auto) Neut # (Auto) Lymph # (Auto) [place] # (Auto) Eos # (Auto) Baso # (Auto) Immature Gran # (Auto) Sample Site L Radial POC pH 7.36 POC pCO2 23 L POC pO2 114 H POC HCO3 13 L POC Total CO2 14 L POC Base Excess -13.0 L POC ABG O2 Sat 98.0 H Ari Test Pass O2 Delivery Device Ventilator POC FiO2 26 PEEP 5 Sodium 148 H Potassium 4.3 Chloride 125 H Carbon Dioxide 15 L Anion Gap 8.0 BUN 59 H Creatinine 2.78 H Est Cr Clr Drug Dosing 19.1 Est GFR ( Amer) 20.2 Est GFR (Non-Af Amer) 17.4 BUN/Creatinine Ratio 21.1 H Glucose 192 H POC Glucose Calcium 7.4 L Phosphorus 5.3 H Magnesium 2.5 H Total Bilirubin 1.5 H AST 31 ALT 18 Alkaline Phosphatase 131 H Ammonia 52.0 H Total Protein 6.0 L Albumin 2.0 L Globulin 4.0 Albumin/Globulin Ratio 0.5 L Crossmatch 03/23/20 03/23/20 03/23/20 05:43 11:35 17:22 WBC RBC Hgb Hct MCV MCH MCHC RDW Std Deviation RDW Coeff of Karina Plt Count MPV Immature Gran % (Auto) Neut % (Auto) Lymph % (Auto) [place] % (Auto) Eos % (Auto) Baso % (Auto) Neut # (Auto) Lymph # (Auto) [place] # (Auto) Eos # (Auto) Baso # (Auto) Immature Gran # (Auto) Sample Site POC pH POC pCO2 POC pO2 POC HCO3 POC Total CO2 POC Base Excess POC ABG O2 Sat Ari Test O2 Delivery Device POC FiO2 PEEP Sodium Potassium Chloride Carbon Dioxide Anion Gap BUN Creatinine Est Cr Clr Drug Dosing Est GFR ( Amer) Est GFR (Non-Af Amer) BUN/Creatinine Ratio Glucose POC Glucose 188 H 196 H 139 H Calcium Phosphorus Magnesium Total Bilirubin AST ALT Alkaline Phosphatase Ammonia Total Protein Albumin Globulin Albumin/Globulin Ratio Crossmatch 03/23/20 03/23/20 17:39 20:20 WBC RBC Hgb Hct MCV MCH MCHC RDW Std Deviation RDW Coeff of Karina Plt Count MPV Immature Gran % (Auto) Neut % (Auto) Lymph % (Auto) [place] % (Auto) Eos % (Auto) Baso % (Auto) Neut # (Auto) Lymph # (Auto) [place] # (Auto) Eos # (Auto) Baso # (Auto) Immature Gran # (Auto) Sample Site POC pH POC pCO2 POC pO2 POC HCO3 POC Total CO2 POC Base Excess POC ABG O2 Sat Ari Test O2 Delivery Device POC FiO2 PEEP Sodium 149 H Potassium 3.9 Chloride 123 H Carbon Dioxide 18 L Anion Gap 8.0 BUN 49 H Creatinine 2.44 H D Est Cr Clr Drug Dosing 21.6 Est GFR ( Amer) 23.6 Est GFR (Non-Af Amer) 20.4 BUN/Creatinine Ratio 20.0 Glucose 137 H POC Glucose 139 H Calcium 7.4 L Phosphorus Magnesium Total Bilirubin AST ALT Alkaline Phosphatase Ammonia Total Protein Albumin Globulin Albumin/Globulin Ratio Crossmatch Medications Administered Current Inpatient Medications Dextrose (Dextrose 50%) 25 - 50 ml IV UD PRN; Protocol PRN Reason: Hypoglycemia Protocol Stop: 04/19/20 15:14 Glucagon (Glucagen) 1 mg IM UD PRN; Protocol PRN Reason: Hypoglycemia Protocol Stop: 04/19/20 15:14 Glucose (Glucose 40%) 15 - 30 gm PO UD PRN; Protocol PRN Reason: Hypoglycemia Protocol Stop: 04/19/20 15:14 Glucose (Dex4 Glucose) 4 - 8 tabs PO UD PRN; Protocol PRN Reason: Hypoglycemia Protocol Stop: 04/19/20 15:14 Ceftriaxone Sodium 2,000 mg/ (Dextrose) 70 mls @ 140 mls/hr IV Q24H [facility] Stop: 03/27/20 10:59 Last Infusion: 03/23/20 10:58 Dose: Infused Documented by: Pantoprazole Sodium 40 mg/ (Syringe) 10 mls @ 5 mls/min IV BID [facility]BY Stop: 04/21/20 08:59 Last Admin: 03/23/20 09:14 Dose: 5 mls/min Documented by: Sodium Bicarbonate 75 meq/ (Dextrose) 1,075 mls @ 75 mls/hr IV .[id number] [facility] Stop: 04/22/20 17:14 Last Admin: 03/23/20 17:20 Dose: 75 mls/hr Documented by: Insulin Aspart (Novolog Flexpen) 0 units SC Q6 [facility] Stop: 04/20/20 11:59 Last Admin: 03/23/20 17:22 Dose: Not Given Documented by: Insulin Glargine (Lantus Solostar Pen) 15 units SQ HS [facility] Stop: 04/19/20 20:59 Last Admin: 03/20/20 21:05 Dose: 15 units Documented by: Lactulose (Chronulac) 30 gm OG Q6 [facility] Stop: 04/21/20 16:59 Last Admin: 03/23/20 17:16 Dose: Not Given Documented by: Midazolam HCl (Versed) 2 mg IV Q2H PRN PRN Reason: RASS goal -1 Stop: 04/19/20 15:09 Last Admin: 03/20/20 16:17 Dose: 2 mg Documented by: Miscellaneous (Carbohydrates For Hypoglycemia) 15 - 30 gm PO UD PRN PRN Reason: Hypoglycemia Treatment Stop: 04/19/20 15:14 Rifaximin (Xifaxan) 550 mg PO BID [facility] Stop: 04/20/20 20:59 Last Admin: 03/23/20 07:59 Dose: 550 mg Documented by: PG Care Time/CCT Total # of Minutes Spent Total Time Spent with Patient: Total time spent is greater than 50% in coordination of care (as documented) at patient's floor/unit and/or counseling patient: Coding Level of Care Code 64249 Subseq Hosp Care Lvl 3 Diagnoses Acute GI bleeding K92.2 Hepatic encephalopathy K72.90 Hyperkalemia E87.5 Proximal humerus fracture S42.209A Fever R50.9 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 K75.81; K74.60 Acute on chronic renal insufficiency N28.9; N18.9 Hyperammonemia E72.20 Metabolic acidosis E87.2 Hypernatremia E87.0 Acute blood loss anemia D62 Diabetic nephropathy associated with type 2 diabetes mellitus E11.21
[2020-03-24] MEDS: INSULIN ASPART 100 UNITS/ML 3 ML PEN SC SCH ×5 (00:43→23:24)
[2020-03-24 04:30] LABS: Hematocrit (blood only) 23.7 % (37-47); Hemoglobin 7.8 g/dL (12.0-16.0); Mean Corpuscular Hemoglobin 29.8 pg (25-34); Mean Corpuscular Hgb Conc 32.9 g/dL (32-36); Mean Corpuscular Volume 90.5 fL (80-100); RDW Coefficient of Variation 16.6 % (11.5-14.5); RDW Standard Deviation 54.3 fL (36.4-46.3); Red Blood Count 2.62 M/uL (4.2-5.4); White Blood Count 2.89 K/uL (4.8-10.8)
[2020-03-24 04:38] LABS: Mean Platelet Volume 8.8 fL (7.4-10.4); Platelet Count 31 K/uL (130-400)
[2020-03-24 04:39] LABS: INR 1.3 (0.9-1.1); Prothrombin Time 13.9 Seconds (9.0-12.0)
[2020-03-24 04:48] LABS: Albumin Level 1.9 gm/dl (3.4-5.0); BUN Creatinine Ratio 20.6 (10-20); Calcium 7.8 mg/dl (8.5-10.1); Creatinine Clr Calc Pharmacy 23.4 ml/min; Est GFR (Non-African American) 22.5; Magnesium 2.2 mg/dl (1.8-2.4); Potassium 3.8 mmol/L (3.5-5.1)
[2020-03-24 04:52] LABS: Albumin Globulin Ratio 0.5 (0.9-2); Bilirubin,Total 1.2 mg/dl (0.2-1); Globulin 3.9 gm/dl (2.5-4.0); Total Protein 5.8 gm/dl (6.4-8.2)
[2020-03-24 05:01] LABS: Basophils # (auto) 0.01 K/uL (0-0.2); Basophils % (auto) 0.3 %; Eosinophils # (auto) 0.13 K/uL (0-0.5); Eosinophils % (auto) 4.5 %; Lymphocytes % (auto) 20.8 %; Monocytes # (auto) 0.28 K/uL (0.11-0.59); Monocytes % (auto) 9.7 %; Neutrophils # (auto) 1.87 K/uL (1.4-6.5); Neutrophils % (auto) 64.7 %; RBC Morphology Unremarkable
[2020-03-24] MEDS: LACTULOSE SYRUP 30 GM/45 ML UDP OG SCH ×4 (05:30→23:20)
--- NOTE | 2020-03-24 06:25 | Critical Care Progress Note ---
Date of Service March 24, 2020 Assessment & Plan (1) Acute GI bleeding: Reason Critically Ill: 64 yo F PMHx MAE cirrhosis with portal HTN and esophageal varices, DM2, CKD III, chronic pancytopenia, splenomegaly, chronic metabolic acidosis on bicarbonate, GERD and PUD, HTN, psoriatic arthritis who presented with bloody emesis and melena and who was admitted for acute GIB and hepatic encephalopathy. Neuro - [facility] ICU: Negative Sedation: None Analgesia: None Metabolic/Hepatic encephalopathy: - On arrival with altered mental status, was intubated electively for airway protection and in anticipation of EGD. - History of chronic metabolic acidosis on bicarbonate therapy. - Ammonia downtrending from 200 on admission -> 45 this AM. Had one loose BM overnight. - Continue home rifaximin 550mg BID (crush tablets per Pharmacy), lactulose 30mg q6h PO. If patient not tolerating PO can consider NG. - Titrate lactulose to goal of 3-4 loose BMs / day. - PT/OT/Speech evaluations ordered. Cardiac - - No acute events on telemetry. - Maintain MAP > 65. HFpEF: - Echo in September 2019: EF 65-70%, no wall motion abnormalities, severe LA dilation, mild pulmonary HTN with RVSP 44, mild MR, mild-moderate TR. - On chronic furosemide 40mg daily at home. - On admission with pro BNP from outside hospital of 20,000. - Total output of 2050mL in 24 hours; total Is/Os -500. - Weight stable at 73.1kg. - Continue to monitor fluid status, Is/Os. Respiratory - Acute hypoxemic respiratory failure: - Patient with respiratory failure and bilateral consolidations on CT chest. No signs suggestive of PE. - Patient is currently extubated on 2LNC, saturating well. - CXR 03/22 with no change in mild pulmonary vascular congestion/fluid overload. - COVID 19 test pending, though this is unlikely given patient with minimal travel out of the house and few visitors. - Continue to wean oxygen as tolerated. GI - Liver cirrhosis 2/2 MAE: - History of, on chronic lactulose and rifaximin therapy for hyperammonemia, though it is unclear if the patient was taking these medications at home. Case Management working with family to determine cost of medications for home. - EGD 2018: Patient with a history of non-bleeding grade 1 esophageal varices, portal hypertensive gastropathy. - Repeat EGD with portal gastropathy and Grade 2 esophageal varices without bleeding. - With elevated ammonia to 200 on arrival, decreased to 45 with increase in lactulose to q6h 03/22; patient with 2BMs over the last 24 hours. - Continue rifaximin, lactulose PO once tolerating oral intake. Acute GIB: - Likely 2/2 AVM which was clipped, vs. esophageal varices vs. portal gastropathy. - Prior EGD as above. Most recent colonoscopy 10/21/19: diverticulosis and internal hemorrhoids. - EGD 03/21 showed Grade 2 esophageal varices without acute bleed, moderate- sized gastric AVM which was clipped, and portal gastropathy. - Hgb on arrival 6.0, has received a total of 3u PRBCs. Hemoglobin continues to slowly downtrend at 7.8 this AM. - Continue Protonix IV BID. Completed 3 days of Octreotide. - Continue Rocephin 2g IV daily. - Daily CBC. RENAL/LYTES - Hypernatremia, Hyperkalemia: - BMP today: Na stable at 149, K 3.8, Phos 4.0, Mg 2.2. - Continue D5W with bicarb at 75cc/hr. - Replete lytes as needed. - Repeat BMP AM. HENRIQUE on CKD: - Patient with baseline creatinine ~1.8. - Creatinine continues to trend down on D5W with bicarb; Cr 2.25 this AM. - FeNa calculated at 3.2% earlier this admission; likely intrinsic cause given no findings suggesting obstructive process. - Continue to optimize renal perfusion with supplemental fluids as needed. - Avoid nephrotoxins. - Nephrology consulted and appreciate recommendations: - Continue to monitor hypernatremia and bicarbonate level closely while on fluids, and d/c if signs of fluid overload. - UTI: - UCx growing gram negative bacilli with >100,000 CFU sensitive to cephalosporins. - Patient without urinary complaints prior to arrival, however with significant AMS so unclear if symptomatic. - Fever curve trending down and patient afebrile today. - Strict Is/Os. Draining clear yellow urine. Currently -500mL over 24 hours, with total UO 2050mL over 24 hours. - Rocephin 2g IV q24h started 03/21. ENDO - - With some elevation in BSG since start of D5 containing fluids. - Lantus 15u daily with SSI. HEME - Pancytopenia: - Hgb on arrival 6.0 -> 8.3 following a total of 3u PRBCs. - History of iron deficiency anemia requiring regular iron infusions, thought to be 2/2 chronic disease. - Likely also with chronic bone marrow suppression 2/2 liver disease. 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 - Plts 31 this AM; s/p 1u plt transfusion earlier this admission. Recent bleeding and clotting likely cause of further decreased thrombocytopenia from baseline (baseline plt ~55). - Replete blood products as needed to maintain Hgb >8.0. If plts continue to decrease can consider further transfusions. - Repeat CBC AM. ID - - Patient with bacteruria as above. - Fever curve trending down, and patient afebrile at this time. - Continue to monitor. - Patient had CXR 03/22 without evidence of pneumonia. No wounds noted on exam. - UTI currently treated with ceftriaxone. - RUQ US without findings suggestive of infection. LINES/IV ACCESS - - PIVs intact bilateral UE. - R IJ removed today. DVT PROPHYLAXIS - - Holding Heparin DVT ppx in the setting of decreasing Hgb of 7.8 and plt 31. - Continue SCDs. For downgrade today, care per hospitalist team. Thank you for allowing us to participate in this patient's care. Please refer to Dr. Duckworth's documentation for any further recommendations. (2) Symptomatic anemia: (3) Acute on chronic renal insufficiency: (4) Hyperammonemia: (5) Metabolic acidosis: (6) DVT prophylaxis: (7) Hepatic encephalopathy: (8) Hyperkalemia: (9) Hypernatremia: (10) Acute blood loss anemia: (11) Diabetic nephropathy associated with type 2 diabetes mellitus: (12) Diabetes type 2, uncontrolled: (13) Depression: (14) Hypertension: (15) Iron deficiency anemia: (16) 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: (17) Obstructive sleep apnea: (18) Pancytopenia: (19) CHF (congestive heart failure): (20) Mitral regurgitation: (21) Peptic ulcer disease: (22) Dyslipidemia: (23) GERD (gastroesophageal reflux disease): (24) Chronic kidney disease, stage III (moderate): (25) Fever: Admission and Anticipated Discharge Date Admission Date: March 20, 2020 Supervising Physician Co-Signing Physician Notes Dr. Medina was resident physician during care of patient. I separately evaluated patient for constantino portions of the history and the exam. I was present during the critical portion of medical decision making, and I discussed the case with the resident. I generally agree with the findings and plan. Patient was discussed in multidisciplinary rounds. Patient's mental status continues to improve, remains extubated in greater than 24 hours stable for downgrade out of the ICU. Subjective Patient with no acute events overnight. More awake, alert, and conversational this AM. Denies SOB, CP, palpitations, abdominal pain, nausea or vomiting. Endorses some R shoulder pain. Review of Systems Review of Systems: All systems reviewed & are unremarkable except as noted in Subjective Physical Exam Constitutional: well developed and + ill appearing Eyes: PERRL, conjunctivae normal, anicteric sclerae ENMT: external ear and nose normal, oropharynx normal Head AT/NC No perioral cyanosis Neck: trachea midline, no thyromegaly R internal jugular central line present, clean dry and intact Respiratory: Oxygen saturation 98% on 2LNC Cardiovascular: Rate/Rhythm: regular rate and regular rhythm Heart Sounds: + murmur (2/6 blowing systolic murmur throughout) Extremities: + edema (bilateral hands 1+) Gastrointestinal (Abdomen): Inspection/Auscultation: + abdomen distended and normal bowel sounds Percussion/Palpation: abdomen soft and + hepatomegaly; abdomen nontender and no guarding Musculoskeletal: Extremities: extremities normal to inspection; no cyanosis and no clubbing Skin: no rashes, warm and dry R IJ, C/D/I R hand peripheral line C/D/I L hand peripheral line C/D/I Neurologic: Motor/Sensory: no tremor PERRL Patient awakens to voice and follows commands Patellar, plantar, and biceps DTRs present and symmetric bilaterally. Upward Babinski. Psychiatric: Orientation: alert and oriented x 3 Affect: euthymic affect Genitourinary: Collins draining clear yellow urine Lymphatic: No noted lymphadenopathy Results & Data Results & [facility] ([facility]) Vital Signs (Past 12 Hours) Vital Signs Temp Pulse BP Pulse Ox 03/24/20 00:32 71 157/72 H 98 03/24/20 00:00 37.4 C 72 98 03/23/20 23:32 71 147/57 H 96 03/23/20 23:01 71 97 03/23/20 22:32 71 159/63 H 97 03/23/20 22:01 71 95 03/23/20 21:33 77 167/67 H 96 03/23/20 21:01 72 96 03/23/20 20:32 73 161/65 H 97 03/23/20 20:00 37.5 C 75 97 03/23/20 19:32 75 164/65 H 96 03/23/20 19:00 75 96 03/23/20 18:32 76 156/61 H 96 Resident Activity Tracking Resident Involvement: Resident Care Provided Care Provided: Adult Hospital Medicine (1) CHF (congestive heart failure) Heart failure chronicity: acute Heart failure type: unspecified Qualified Code(s): I50.9 - Heart failure, unspecified (2) Iron deficiency anemia Iron deficiency anemia type: other iron deficiency Qualified Code(s): D50.8 - Other iron deficiency anemias (3) Hypertension Hypertension type: essential hypertension Qualified Code(s): I10 - Essential (primary) hypertension
[2020-03-24] MEDS: SODIUM BICARBONATE 8.4% 75 MEQ in DEXTROSE 5% 1,000 ML IV SCH (07:32)
[2020-03-24] MEDS: PANTOprazole 40 MG in SYRINGE 0 ML IV SCH ×2 (07:33→21:08)
[2020-03-24] MEDS: cefTRIAXone SODIUM 2,000 MG in DEXTROSE 5% 50 ML IV SCH (09:24)
--- NOTE | 2020-03-24 10:29 | Nephrology Progress Note ---
Date of Service March 24, 2020 Assessment & Plan (1) Acute on chronic renal insufficiency: (2) Metabolic acidosis: Angela was admitted on 10/08 with GI bleeding and hepatic encephalopathy. Ammonia level was above 200, hemoglobin 6 and platelet in 30s. She received platelet and PRBC transfusion with slight improvement in hemoglobin and platelet. Had EGD showing AVM and pheresis which was clipped. Intubated for airway protection, currently tolerating CPAP. Found to have HENRIQUE, creatinine has been staying around 2.6-2.7 with baseline around 2 as with recurrent history of acute kidney injury. Has been having decent urine output. Potassium has been normal. Has metabolic acidosis and hypernatremia. renal function stable, decent urine output, volume status acceptable. -- Change IV fluid to D5W ,encourage oral free water intake once able to start taking p.o. -- monitor intake and output, renal function and electrolytes closely closely -- avoid nephrotoxic medications, and dose medications for GFR less than 30 Will follow (3) Hypernatremia: (4) Hyperammonemia: (5) Hepatic encephalopathy: (6) Acute blood loss anemia: Admission and Anticipated Discharge Date Admission Date: March 20, 2020 Subjective Angela was seen and examined in ICU this morning. Extubated yesterday, respiratory status stable on 2 liter nasal cannula oxygen. Has been having decent urine output, volume status acceptable, renal function stable. Still NPO, waiting on swallow evaluation. Review of Systems Review of Systems: All systems reviewed & are unremarkable except as noted in HPI & below Physical Exam Constitutional: + ill appearing; no acute distress Respiratory: normal respiratory effort; no respiratory distress Auscultation: + diminished lung sounds Cardiovascular: Rate/Rhythm: regular rate and regular rhythm Heart Sounds: normal S1 and normal S2 Skin: no rashes, warm and dry Neurologic: awake; no focal motor deficits, not confused and not obtunded Psychiatric: A+Ox3, euthymic affect Results & Data ([facility]) Vital Signs (Past 12 Hours) Vital Signs Temp Pulse BP Pulse Ox 03/24/20 06:33 67 162/71 H 98 03/24/20 06:01 66 97 03/24/20 05:33 75 164/64 H 93 03/24/20 05:01 66 94 03/24/20 04:32 69 151/64 H 93 03/24/20 04:00 37.0 C 66 98 03/24/20 03:32 66 145/56 H 98 03/24/20 03:00 65 98 03/24/20 02:32 68 157/82 H 97 03/24/20 02:00 69 99 03/24/20 01:32 68 148/63 H 98 03/24/20 01:00 68 99 03/24/20 00:32 71 157/72 H 98 03/24/20 00:00 37.4 C 72 98 03/23/20 23:32 71 147/57 H 96 03/23/20 23:01 71 97 03/23/20 22:32 71 159/63 H 97 PG Care Time/CCT Total # of Minutes Spent Total Time Spent with Patient: Total time spent is greater than 50% in co ordination of care (as documented) at patient's floor/unit and/or counseling patient: Coding Level of Care Code 27142 Subseq Hosp Care Lvl 3 Diagnoses Acute on chronic renal insufficiency N28.9; N18.9 Metabolic acidosis E87.2 Hypernatremia E87.0 Hyperammonemia E72.20 Hepatic encephalopathy K72.90 Acute blood loss anemia D62
[2020-03-24] MEDS: RIFAXIMIN 550 MG TABLET PO SCH ×2 (11:59→21:07)
[2020-03-24] MEDS: DEXTROSE 5% 1,000 ML IV SCH ×2 (12:01→23:20)
--- NOTE | 2020-03-24 12:49 | Gastroenterology Progress Note ---
Date of Service March 24, 2020 Assessment & Plan (1) Acute GI bleeding: Ms. Sherman is a 64 yr old female with MAE cirrhosis with grade II EV who experienced an UGI bleed likely from portal hypertensive gastropathy or AVM. She is stable post EGD. Plan: 1. Pantoprazole 40 mg IV twice daily. 2. Monitor outputs. 4. Continue rifaximin and lactulose. 5. Continue to hold diuretics until time of discharge. No plans for colonoscopy at this time because recent colonoscopy 4 months ago without lesions/polpys. Admission and Anticipated Discharge Date Admission Date: March 20, 2020 Ana Miller was seen and examined in ICU this morning. Extubated yesterday, respiratory status stable on 2 liter nasal cannula oxygen. Has been having decent urine output, volume status acceptable, renal function stable. Still NPO, waiting on swallow evaluation. Review of Systems Review of Systems: ROS: Gen: + weakness, nO fevers, NOweight loss Eyes: No eye redness, or pain, no recent vision changes Resp: No SOB, no cough Cardio: No palpitations/irregular beats, no chest pain GI: No abdominal pain, no nausea/vomiting : Denies pain on urination Skin: No jaundice, itching or new rashes Physical Exam Constitutional: + ill appearing and average body habitus Eyes: PERRL, conjunctivae normal, anicteric sclerae ENMT: external ear and nose normal, oropharynx normal Neck: trachea midline, no thyromegaly Respiratory: normal respiratory effort, lungs clear to auscultation Cardiovascular: RRR, no murmur, no edema Gastrointestinal (Abdomen): normal bowel sounds, soft, nontender, no hepatosplenomegaly Skin: no rashes, warm and dry Lymphatic: no cervical or axillary lymphadenopathy Results & Data ([facility]) Vital Signs (Past 12 Hours) Vital Signs Temp Pulse Resp BP Pulse Ox 03/24/20 11:32 65 8 L 164/73 H 98 03/24/20 11:00 67 8 L 98 03/24/20 10:32 64 11 L 150/57 H 99 03/24/20 10:23 64 11 L 158/67 H 98 03/24/20 10:00 70 11 L 97 03/24/20 09:32 66 14 158/67 H 97 03/24/20 09:00 66 13 98 03/24/20 08:32 64 11 L 162/64 H 98 03/24/20 08:00 65 14 99 03/24/20 07:41 37.1 C 66 12 163/69 H 98 03/24/20 07:32 69 166/111 H 98 03/24/20 07:00 64 99 03/24/20 06:33 67 162/71 H 98 03/24/20 06:01 66 97 03/24/20 05:33 75 164/64 H 93 03/24/20 05:01 66 94 03/24/20 04:32 69 151/64 H 93 03/24/20 04:00 37.0 C 66 98 03/24/20 03:32 66 145/56 H 98 03/24/20 03:00 65 98 03/24/20 02:32 68 157/82 H 97 03/24/20 02:00 69 99 03/24/20 01:32 68 148/63 H 98 03/24/20 01:00 68 99
--- NOTE | 2020-03-24 13:35 | Billing Data ---
Date of Service March 24, 2020 Coding Level of Care Code 16367 Subseq Hosp Care Lvl 2
--- NOTE | 2020-03-24 14:08 | Gastroenterology Progress Note ---
Date of Service March 24, 2020 Assessment & Plan Admission and Anticipated Discharge Date Admission Date: March 20, 2020 Subjective No events overnight. Pt voices no complaints. HEENT: anicteric CV: RRR Resp: grossly clear anteriorly Abd: no edema, no obv ascites Extrem: mild edema Psych: Awake with slowed speech, feeding herself without obv tremor Labs reviewed A/P: GIB - No evidence of onging GIB. I believe that she bled from AVM. Her risk of rebleed at this time is low; no further recs. HE - Cont lactulose and xifaxan. Cirrhosis - G2 varices on EGD, but would defer beta-blockade given renal failure; this can be started as an outpt. Defer resumption of outpt diuretics given euvolemia/hypernatremia. Will arrange for outpt f/u with Dr. Silver. Please call with questions in the interim. Results & Data ([facility]) Vital Signs (Past 12 Hours) Vital Signs Temp Pulse Resp BP Pulse Ox 03/24/20 11:32 65 8 L 164/73 H 98 03/24/20 11:00 67 8 L 98 03/24/20 10:32 64 11 L 150/57 H 99 03/24/20 10:23 64 11 L 158/67 H 98 03/24/20 10:00 70 11 L 97 03/24/20 09:32 66 14 158/67 H 97 03/24/20 09:00 66 13 98 03/24/20 08:32 64 11 L 162/64 H 98 03/24/20 08:00 65 14 99 03/24/20 07:41 37.1 C 66 12 163/69 H 98 03/24/20 07:32 69 166/111 H 98 03/24/20 07:00 64 99 03/24/20 06:33 67 162/71 H 98 03/24/20 06:01 66 97 03/24/20 05:33 75 164/64 H 93 03/24/20 05:01 66 94 03/24/20 04:32 69 151/64 H 93 03/24/20 04:00 37.0 C 66 98 03/24/20 03:32 66 145/56 H 98 03/24/20 03:00 65 98 03/24/20 02:32 68 157/82 H 97 03/24/20 02:00 69 99 03/24/20 01:32 68 148/63 H 98 03/24/20 01:00 68 99
--- NOTE | 2020-03-24 16:23 | Hospitalist Progress Note ---
Date of Service March 24, 2020 Assessment & Plan (1) Acute GI bleeding: (1) Acute blood loss anemia: EGD on 03/21 with portal gastropathy, varices (no stigmata of bleeding) and gastric AVM, the AVM was clipped Hb stable and BP stable after 3 units of PRBC and one unit platelets recommendations from GI: protonix drip overnight then BID, octreotide drip x 3 days Rocephin x 7 days Hb is down a little at 7.8 today, will monitor Hb closely and look for any further signs of bleeding GI aware, they are following repeat H/H in the morning (2) GI bleed: based on EGD, likely source is AVM in stomach has varices but no stigmata of recent bleeding some possible melena yesterday, could be old blood? Hb down slightly at 7.8, continue to monitor (3) Hyperkalemia: Secondary to acute kidney injury Potassium down to normal, improvement with volume administration and Diuril repeat in the morning (4) Hepatic encephalopathy: Ammonia level 208 on admission, per her , she was not taking Lactulose because she was having loose stools ammonia down to 45 today continue Rifaximin and Lactulose, change to PO now that she is extubated more alert today, she is oriented, encephalopathy resolved (5) HENRIQUE (acute kidney injury): Creatinine up to 2.69, BUN up to 85, from baseline of creatinine 1.8-2.0 BUN likely also up due to GI bleeding Cr improving today, down to 2.25 consult nephrology, Dr. 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: As above, with portal hypertension octreotide drip for three days resume maintenance therapy with diuretics, Rifaximin and lactulose once appropriate (8) Hypernatremia: 149 today, giving free water to correct, encourage PO intake (9) Diabetic nephropathy associated with type 2 diabetes mellitus: Noted (10) Diabetes type 2, uncontrolled: Continue Lantus and NovoLog monitor for hypoglycemia (11) Pancytopenia: Secondary to cirrhosis and acute on chronic anemia counts are low but stable (12) Nocturnal hypoxemia: Wears 2 L nasal cannula at nighttime (13) Obstructive sleep apnea: Wears 2 L nasal cannula at nighttime (14) Hypertension: Hypertensive currently -Holding home carvedilol, diuretics because of GI bleeding Follow blood pressures (15) Depression: Noted Not currently on medication for this (16) Pulmonary hypertension: Noted on most recent echocardiogram (17) Mitral regurgitation: Mild on most recent echocardiogram (18) Aortic stenosis: Trivial aortic stenosis on most recent echocardiogram (19) Vitamin D deficiency: Hold home vitamin D supplementation (20) Psoriatic arthritis: Not on medications for this (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: (7) Acute on chronic renal insufficiency: (8) Hyperammonemia: (9) Metabolic acidosis: (10) Hypernatremia: (11) Diabetic nephropathy associated with type 2 diabetes mellitus: Admission and Anticipated Discharge Date Admission Date: March 20, 2020 Subjective patient more alert today, sitting at the edge of the bed, working with therapy she is trying to eat and drink, not much of an appetite she denies any fever/chills, dyspnea, chest pain, abdominal pain she does not remember much from yesterday, even after she was extubated reviewed labs, WBC 2.89, Hb 7.8, plts 31, INR 1.3, Cr down to 2.25, Na 149, ammonia 45 updated her at the bedside discussed with Dr. Duckworth, will transfer out of ICU, she is stable Review of Systems Review of Systems: All systems reviewed & are unremarkable except as noted in Subjective Constitutional: + fatigue and + weakness; no fever Respiratory: no cough and no dyspnea Cardiovascular: no chest pain and no edema Gastrointestinal: + diarrhea/loose stools; no abdominal pain, no nausea, no vomiting and no constipation Physical Exam Constitutional: well developed, well nourished and + frail appearing; no acute distress Eyes: PERRL, conjunctivae normal, anicteric sclerae ENMT: external ear and nose normal, oropharynx normal Neck: trachea midline, no thyromegaly Respiratory: normal respiratory effort, lungs clear to auscultation Cardiovascular: RRR, no murmur, no edema Gastrointestinal (Abdomen): normal bowel sounds, soft, nontender, no hepatosplenomegaly Musculoskeletal: Head/Neck/Chest: normocephalic, head atraumatic and neck supple Extremities: extremities normal to inspection; no cyanosis, no clubbing and no petechiae Skin: no rashes, warm and dry Neurologic: normal touch/pain/proprioception, CN's II-XI intact bilaterally and deep tendon reflexes 2+ bilaterally; no focal motor deficits Lymphatic: no cervical or axillary lymphadenopathy Results & Data Results & Data ([facility]) Vital Signs (Past 12 Hours) Vital Signs Temp Pulse Resp BP Pulse Ox 03/24/20 14:01 70 19 97 03/24/20 13:24 73 15 170/81 H 97 03/24/20 13:01 67 16 100 03/24/20 12:32 68 11 L 156/89 H 97 03/24/20 12:00 37 C 73 19 97 03/24/20 11:32 65 8 L 164/73 H 98 03/24/20 11:00 67 8 L 98 03/24/20 10:32 64 11 L 150/57 H 99 03/24/20 10:23 64 11 L 158/67 H 98 03/24/20 10:00 70 11 L 97 03/24/20 09:32 66 14 158/67 H 97 03/24/20 09:00 66 13 98 03/24/20 08:32 64 11 L 162/64 H 98 03/24/20 08:00 65 14 99 03/24/20 07:41 37.1 C 66 12 163/69 H 98 03/24/20 07:32 69 166/111 H 98 03/24/20 07:00 64 99 03/24/20 06:33 67 162/71 H 98 03/24/20 06:01 66 97 03/24/20 05:33 75 164/64 H 93 03/24/20 05:01 66 94 03/24/20 04:32 69 151/64 H 93 Laboratory Results Laboratory Results - last 24 hr 03/20/20 03/23/20 03/23/20 17:25 17:22 17:39 WBC RBC Hgb Hct MCV MCH MCHC RDW Std Deviation RDW Coeff of Karina Plt Count MPV Immature Gran % (Auto) Neut % (Auto) Lymph % (Auto) [place] % (Auto) Eos % (Auto) Baso % (Auto) Neut # (Auto) Lymph # (Auto) [place] # (Auto) Eos # (Auto) Baso # (Auto) Immature Gran # (Auto) RBC Morphology PT INR VBG pH Sodium 149 H Potassium 3.9 Chloride 123 H Carbon Dioxide 18 L Anion Gap 8.0 BUN 49 H Creatinine 2.44 H D Est Cr Clr Drug Dosing 21.6 Est GFR ( Amer) 23.6 Est GFR (Non-Af Amer) 20.4 BUN/Creatinine Ratio 20.0 Glucose 137 H POC Glucose 139 H Calcium 7.4 L Phosphorus Magnesium Total Bilirubin AST ALT Alkaline Phosphatase Ammonia Total Protein Albumin Globulin Albumin/Globulin Ratio SARS-CoV-2 RNA (RT-PCR) Not Detected 03/23/20 03/24/20 03/24/20 20:20 00:41 04:17 WBC 2.89 L RBC 2.62 L Hgb 7.8 L Hct 23.7 L MCV 90.5 MCH 29.8 MCHC 32.9 RDW Std Deviation 54.3 H RDW Coeff of Karina 16.6 H Plt Count 31 L MPV 8.8 Immature Gran % (Auto) 0.0 Neut % (Auto) 64.7 Lymph % (Auto) 20.8 Montgomery % (Auto) 9.7 Eos % (Auto) 4.5 Baso % (Auto) 0.3 Neut # (Auto) 1.87 Lymph # (Auto) 0.60 L [place] # (Auto) 0.28 Eos # (Auto) 0.13 Baso # (Auto) 0.01 Immature Gran # (Auto) 0.00 RBC Morphology Unremarkable PT INR VBG pH Sodium Potassium Chloride Carbon Dioxide Anion Gap BUN Creatinine Est Cr Clr Drug Dosing Est GFR ( Amer) Est GFR (Non-Af Amer) BUN/Creatinine Ratio Glucose POC Glucose 139 H 152 H Calcium Phosphorus Magnesium Total Bilirubin AST ALT Alkaline Phosphatase Ammonia Total Protein Albumin Globulin Albumin/Globulin Ratio SARS-CoV-2 RNA (RT-PCR) 03/24/20 03/24/20 03/24/20 04:17 04:17 04:17 WBC RBC Hgb Hct MCV MCH MCHC RDW Std Deviation RDW Coeff of Karina Plt Count MPV Immature Gran % (Auto) Neut % (Auto) Lymph % (Auto) [place] % (Auto) Eos % (Auto) Baso % (Auto) Neut # (Auto) Lymph # (Auto) [place] # (Auto) Eos # (Auto) Baso # (Auto) Immature Gran # (Auto) RBC Morphology PT 13.9 H INR 1.3 H VBG pH Sodium 149 H Potassium 3.8 Chloride 122 H Carbon Dioxide 21 Anion Gap 6.0 BUN 46 H Creatinine 2.25 H Est Cr Clr Drug Dosing 23.4 Est GFR ( Amer) 26.0 Est GFR (Non-Af Amer) 22.5 BUN/Creatinine Ratio 20.6 H Glucose 156 H POC Glucose Calcium 7.8 L Phosphorus 4.0 D Magnesium 2.2 Total Bilirubin 1.2 H AST 25 ALT 16 Alkaline Phosphatase 119 H Ammonia 45.0 H Total Protein 5.8 L Albumin 1.9 L Globulin 3.9 Albumin/Globulin Ratio 0.5 L SARS-CoV-2 RNA (RT-PCR) 03/24/20 03/24/20 03/24/20 04:17 05:47 11:57 WBC RBC Hgb Hct MCV MCH MCHC RDW Std Deviation RDW Coeff of Karina Plt Count MPV Immature Gran % (Auto) Neut % (Auto) Lymph % (Auto) Montgomery % (Auto) Eos % (Auto) Baso % (Auto) Neut # (Auto) Lymph # (Auto) [place] # (Auto) Eos # (Auto) Baso # (Auto) Immature Gran # (Auto) RBC Morphology PT INR VBG pH 7.34 L Sodium Potassium Chloride Carbon Dioxide Anion Gap BUN Creatinine Est Cr Clr Drug Dosing Est GFR ( Amer) Est GFR (Non-Af Amer) BUN/Creatinine Ratio Glucose POC Glucose 157 H 158 H Calcium Phosphorus Magnesium Total Bilirubin AST ALT Alkaline Phosphatase Ammonia Total Protein Albumin Globulin Albumin/Globulin Ratio SARS-CoV-2 RNA (RT-PCR) Medications Administered Current Inpatient Medications Dextrose (Dextrose 50%) 25 - 50 ml IV UD PRN; Protocol PRN Reason: Hypoglycemia Protocol Stop: 04/19/20 15:14 Glucagon (Glucagen) 1 mg IM UD PRN; Protocol PRN Reason: Hypoglycemia Protocol Stop: 04/19/20 15:14 Glucose (Glucose 40%) 15 - 30 gm PO UD PRN; Protocol PRN Reason: Hypoglycemia Protocol Stop: 04/19/20 15:14 Glucose (Dex4 Glucose) 4 - 8 tabs PO UD PRN; Protocol PRN Reason: Hypoglycemia Protocol Stop: 04/19/20 15:14 Ceftriaxone Sodium 2,000 mg/ (Dextrose) 70 mls @ 140 mls/hr IV Q24H BOBBY Stop: 03/27/20 10:59 Last Infusion: 03/24/20 10:00 Dose: Infused Documented by: Pantoprazole Sodium 40 mg/ (Syringe) 10 mls @ 5 mls/min IV BID BOBBY Stop: 04/21/20 08:59 Last Admin: 03/24/20 07:33 Dose: 5 mls/min Documented by: Dextrose (D5w) 1,000 mls @ 80 mls/hr IV .[id number] BOBBY Stop: 04/23/20 10:29 Last Admin: 03/24/20 12:01 Dose: 80 mls/hr Documented by: Insulin Aspart (Novolog Flexpen) 0 units SC Q6 BOBBY Stop: 04/20/20 11:59 Last Admin: 03/24/20 11:59 Dose: Not Given Documented by: Insulin Glargine (Lantus Solostar Pen) 15 units SQ HS BOBBY Stop: 04/19/20 20:59 Last Admin: 03/23/20 20:38 Dose: Not Given Documented by: Lactulose (Chronulac) 30 gm OG Q6 BOBBY Stop: 04/21/20 16:59 Last Admin: 03/24/20 11:59 Dose: 30 gm Documented by: Miscellaneous (Carbohydrates For Hypoglycemia) 15 - 30 gm PO UD PRN PRN Reason: Hypoglycemia Treatment Stop: 04/19/20 15:14 Rifaximin (Xifaxan) 550 mg PO BID BOBBY Stop: 04/20/20 20:59 Last Admin: 03/24/20 11:59 Dose: 550 mg Documented by: PG Care Time/CCT Total # of Minutes Spent Total Time Spent with Patient: Total time spent is greater than 50% in coordination of care (as documented) at patient's floor/unit and/or counseling patient: Coding Level of Care Code 32379 Subseq Hosp Care Lvl 3 Diagnoses Acute GI bleeding K92.2 Hepatic encephalopathy K72.90 Hyperkalemia E87.5 Proximal humerus fracture S42.209A Fever R50.9 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
[2020-03-24] MEDS: INSULIN GLARGINE SOLOSTAR 100 UNITS/ML 3 ML PEN SQ SCH (21:08)
[2020-03-25 04:52] LABS: Mean Corpuscular Hemoglobin 30.4 pg (25-34); Mean Corpuscular Hgb Conc 33.3 g/dL (32-36); Mean Corpuscular Volume 91.3 fL (80-100); RDW Coefficient of Variation 16.2 % (11.5-14.5); RDW Standard Deviation 54.1 fL (36.4-46.3); Red Blood Count 2.63 M/uL (4.2-5.4); White Blood Count 2.49 K/uL (4.8-10.8)
[2020-03-25 05:00] LABS: Mean Platelet Volume 8.6 fL (7.4-10.4); Platelet Count 33 K/uL (130-400)
[2020-03-25 05:02] LABS: INR 1.3 (0.9-1.1); Prothrombin Time 13.5 Seconds (9.0-12.0)
[2020-03-25 05:11] LABS: Albumin Level 1.9 gm/dl (3.4-5.0); BUN Creatinine Ratio 18.6 (10-20); Calcium 7.4 mg/dl (8.5-10.1); Creatinine Clr Calc Pharmacy 25.7 ml/min; Est GFR (African American) 29.2; Est GFR (Non-African American) 25.2
[2020-03-25 05:14] LABS: Albumin Globulin Ratio 0.5 (0.9-2); Bilirubin,Total 0.8 mg/dl (0.2-1); Globulin 4.1 gm/dl (2.5-4.0)
[2020-03-25] MEDS: LACTULOSE SYRUP 30 GM/45 ML UDP OG SCH ×3 (06:07→17:59)
[2020-03-25] MEDS: INSULIN ASPART 100 UNITS/ML 3 ML PEN SC SCH ×5 (06:08→20:29)
[2020-03-25] MEDS: PANTOprazole 40 MG in SYRINGE 0 ML IV SCH ×2 (08:30→20:30)
[2020-03-25] MEDS: RIFAXIMIN 550 MG TABLET PO SCH ×2 (08:30→20:32)
--- NOTE | 2020-03-25 09:46 | Medical Student Progress Note ---
Date of Service March 25, 2020 Assessment & Plan (1) Acute GI bleeding: Angela is a 64 yo female with a PMHx of MAE, cirrhosis, insulin dependent T2DM, HTN, and reccurent HENRIQUE who presented for maroon colored vomit and black stools. Upon admission she was seen to have a prerenal HENRIQUE consistent with volume depletion and hepatic encephalopathy Hepatic encephalopathy: Ammonia is downtrending from 200 on admission to 55 today. Now on PO lactulose. Continue lactulose and rifixamin BID. Lactulose appropriately titrated to 3-4 loose BM/day. Pt is extubated, alert and oriented. GI - Likely varices or PUD. Continue protonix IV BID and recephin 2g IV daily. No longer have melena or bloody vomit. Likely resolved. RENAL/LYTES - Hypernatremia: Fluids were transitioned to D5W with bicarb at 50cc/hr, increased to 75cc/hr overnight.Na is down today and almost normal at 146. She is drinking free water. Continue fluids and check BMP later today. HENRIQUE on CKD: - Patient with baseline creatinine ~1.8. - Creatinine is downtrending (peak 2.9 today at 2.05. - Continue to optimize renal perfusion with supplemental fluids as needed. - Avoid nephrotoxins. - UTI resolved. Rosephin D/Bryson. DVT PROPHYLAXIS - - Heparin prophylaxis is contraindicated in the setting of acute GIB. Consider resuming per ICU. PT and INR naturally elevated secondary to cirrhosi. (2) Hepatic encephalopathy: Ammonia is downtrending from 200 on admission to 55 today. Continue lactolose and rifixamin. (3) Hyperkalemia: Secondary to acute kidney injury. Potassium down to 4.8, improvement with volume administration and today with Diuril. Subjective Angela is a 64 yo female with a PMH of MAE cirrhosis, insulin dependent T2DM, HTN and Fe anemia who presented on 03/20 for maroon colored vomit and melena in the setting of hepatic encephalopathy and HENRIQUE. An EGD determined the bleeding to be from an AVM, which was cautorized. Hepatic encephalopathy is being treated with lactulose and rifixamin. HENRIQUE was consistent with volume depletion and has been treated with IV fluids. Today she is alert and oriented. She states that she feels well although is upset about the amount that she has to move her bowels. We discussed how this was important to decrease confusion from her hepatic encephalopathy. She understood and stated that she feels less cloudy today. She has moved her bowels 3x a day. All movements were nonbloody and loose. She is drinking water and eating well. She has a slight cough and a sore throat, likely due to intubation. She has not had any SOB. She states that her RLS was worse last night and she did not sleep well. Today her WBC, which were rising at 4.7 on 03/23 with a low grade fever, are down at 2.49. Plts are low, and PT/INR are elevated secondary to MAE cirrhosis. She was hypernatremic starting 03/23 with a max of 158, and is now down to 146 with fluids. BYN and Cr are steadily downtrending, now at 2.05 and 25.7 respectively. Ammonia levels, which were 208 at admission are down to 55. Review of Systems Constitutional: + fatigue; no fever Eyes: no icterus Respiratory: + cough and + pain on inspiration; no chest congestion Cardiovascular: no chest pain at rest, no lightheadedness and no edema Gastrointestinal: + diarrhea/loose stools; no abdominal pain, no nausea, no vomiting and no constipation Psychiatric: no irritability and no confusion Physical Exam Constitutional: well developed, well nourished, + ill appearing, + lethargic and + mechanically ventilated; no acute distress and not diaphoretic Eyes: PERRL, conjunctivae normal, anicteric sclerae + anicteric sclerae and EOM intact bilaterally ENMT: Mouth: + edentulous Mallampati Class: Other (unable to assess. pt intubated and sedated ) Neck: trachea midline, no thyromegaly normal visual inspection and trachea midline Respiratory: normal respiratory effort, lungs clear to auscultation normal respiratory effort; no cough Auscultation: lungs clear to auscultation bilaterally, + diminished lung sounds, + crackles (coarse, lower lobes) and + wheezes (Expiratory); no rhonchi Cardiovascular: RRR, no murmur, no edema Rate/Rhythm: regular rate and regular rhythm Heart Sounds: + murmur (2/6 blowing systolic murmur throughout) Extremities: no edema Chest (Breasts): Chest: normal inspection of chest Gastrointestinal (Abdomen): normal bowel sounds, soft, nontender, no hepatosplenomegaly Inspection/Auscultation: abdomen normal to inspection, + abdomen distended and normal bowel sounds Percussion/Palpation: abdomen soft, + hepatosplenomegaly and + hepatomegaly; abdomen nontender, no guarding and abdomen not rigid Rectal Exam: + heme positive stool (As per ER physician's exam) Musculoskeletal: Head/Neck/Chest: normocephalic, head atraumatic and neck supple Extremities: extremities normal to inspection; no cyanosis, no clubbing and no petechiae Gait: normal gait Skin: no rashes, warm and dry Neurologic: moves all extremities (And is restless in the legs) and + obtunded; + not awake (Sleeping but wakes up and opens eyes to answer some questions) and not confused Lymphatic: no cervical or axillary lymphadenopathy no lymphadenopathy and no lymphedema Results & Data ([facility]) Vital Signs (Past 12 Hours) Vital Signs Temp Pulse Pulse Resp BP Pulse Ox 03/25/20 07:24 65 03/25/20 03:41 36.6 C 63 12 132/59 L 98 03/24/20 23:39 36.6 C 65 12 166/69 H 98 03/24/20 23:38 65
--- NOTE | 2020-03-25 09:51 | Nephrology Progress Note ---
Date of Service March 25, 2020 Assessment & Plan (1) Acute on chronic renal insufficiency: (2) Metabolic acidosis: Angela was admitted on 03/20/20 with GI bleeding and hepatic encephalopathy. Ammonia level was above 200, hemoglobin 6 and platelet in 30s. She received platelet and PRBC transfusion with slight improvement in hemoglobin and platelet. Had EGD showing AVM and pheresis which was clipped. Intubated for airway protection, currently tolerating CPAP. Found to have HENRIQUE, creatinine has been staying around 2.6-2.7 with baseline around 2 as with recurrent history of acute kidney injury. Has been having decent urine output. Potassium has been normal. Has metabolic acidosis and hypernatremia. Renal function improving decent urine output, volume status acceptable. -- stop IV fluid,,encourage oral free water intake. -- monitor intake and output, renal function and electrolytes closely closely, expect renal function to continue to improve. -- avoid nephrotoxic medications, and dose medications for GFR less than 30 Will follow (3) Hypernatremia: (4) Hyperammonemia: (5) Hepatic encephalopathy: (6) Acute blood loss anemia: Admission and Anticipated Discharge Date Admission Date: March 20, 2020 Subjective Angela was seen and examined in ICU this morning. Overall doing much better, BP well controlled, volume status acceptable. Renal function improved. Po intake improving. Review of Systems Review of Systems: All systems reviewed & are unremarkable except as noted in HPI & below Physical Exam Constitutional: + ill appearing; no acute distress Respiratory: normal respiratory effort, lungs clear to auscultation Cardiovascular: Rate/Rhythm: regular rate and regular rhythm Heart Sounds: normal S1 and normal S2 Extremities: no edema Neurologic: moves all extremities and awake; not confused Psychiatric: A+Ox3, euthymic affect Results & Data ([facility]) Vital Signs (Past 12 Hours) Vital Signs Temp Pulse Pulse Resp BP Pulse Ox 03/25/20 07:24 65 03/25/20 03:41 36.6 C 63 12 132/59 L 98 03/24/20 23:39 36.6 C 65 12 166/69 H 98 03/24/20 23:38 65 PG Care Time/CCT Total # of Minutes Spent Total Time Spent with Patient: Total time spent is greater than 50% in coordination of care (as documented) at patient's floor/unit and/or counseling patient: Coding Level of Care Code 39662 Subseq Hosp Care Lvl 3 Diagnoses Acute on chronic renal insufficiency N28.9; N18.9 Metabolic acidosis E87.2 Hypernatremia E87.0 Hyperammonemia E72.20 Hepatic encephalopathy K72.90 Acute blood loss anemia D62
[2020-03-25] MEDS: cefTRIAXone SODIUM 2,000 MG in DEXTROSE 5% 50 ML IV SCH (11:04)
[2020-03-25] MEDS: DEXTROSE 5% 1,000 ML IV SCH (11:05)
[2020-03-25] MEDS ORDERED: Nursing to Pharmacy Communication SCH (12:30)
[2020-03-25] MEDS ORDERED: INSULIN ASPART 100 UNITS/ML 3 ML PEN SC SCH (18:00)
[2020-03-25] MEDS: INSULIN GLARGINE SOLOSTAR 100 UNITS/ML 3 ML PEN SQ SCH (20:28)
[2020-03-25] MEDS: ROPINIROLE HCL 1 MG TABLET PO SCH (20:31)
[2020-03-25] MEDS: FOLIC ACID 1 MG TAB PO SCH (20:31)
[2020-03-25] MEDS: carvediloL 6.25 MG TAB PO SCH (20:32)
[2020-03-25] MEDS: LIDOCAINE 5% 1 PATCH TD SCH (21:25)
--- NOTE | 2020-03-25 22:06 | Hospitalist Progress Note ---
Date of Service March 25, 2020 Assessment & Plan (1) Acute GI bleeding: (1) Acute blood loss anemia: EGD on 03/21 with portal gastropathy, varices (no stigmata of bleeding) and gastric AVM, the AVM was clipped Hb stable and BP stable after 3 units of PRBC and one unit platelets recommendations from GI: protonix BID, octreotide drip x 3 days (completed) Rocephin x 7 days Hb is 8.0 today, no signs of bleeding (2) GI bleed: based on EGD, likely source is AVM in stomach has varices but no stigmata of recent bleeding no signs of melena, H/H stable at 8 (3) Hyperkalemia: Secondary to acute kidney injury Potassium down to normal, improvement with volume administration and Diuril continue to follow (4) Hepatic encephalopathy: Ammonia level 208 on admission, per her , she was not taking Lactulose because she was having loose stools ammonia down to 50's, stable continue Rifaximin and Lactulose, change to PO now that she is extubated appears to be at baseline mental status (5) HENRIQUE (acute kidney injury): Creatinine up to 2.69, BUN up to 85, from baseline of creatinine 1.8-2.0 BUN likely also up due to GI bleeding Cr improving today, down to 2.0 consult nephrology, Dr. 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: As above, with portal hypertension octreotide drip for three days resume maintenance therapy with diuretics, Rifaximin and lactulose once appropriate will have talk with patient and her about prognosis follows with [facility] (8) Hypernatremia: resolved, encourage free water intake (9) Diabetic nephropathy associated with type 2 diabetes mellitus: Noted (10) Diabetes type 2, uncontrolled: Continue Lantus and NovoLog monitor for hypoglycemia (11) Pancytopenia: Secondary to cirrhosis and acute on chronic anemia counts are low but stable, plts 33k (12) Nocturnal hypoxemia: Wears 2 L nasal cannula at nighttime (13) Obstructive sleep apnea: Wears 2 L nasal cannula at nighttime (14) Hypertension: Hypertensive currently resume Coreg (15) Depression: Noted Not currently on medication for this (16) Pulmonary hypertension: Noted on most recent echocardiogram (17) Mitral regurgitation: Mild on most recent echocardiogram (18) Aortic stenosis: Trivial aortic stenosis on most recent echocardiogram (19) Vitamin D deficiency: Hold home vitamin D supplementation (20) Psoriatic arthritis: Not on medications for this (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 Alonso, appreciate her input patient is motivated to work on her strength, therapy consulted Review of Systems Review of Systems: All systems reviewed & are unremarkable except as noted in Subjective Constitutional: + fatigue and + weakness; no fever Respiratory: no cough and no dyspnea Cardiovascular: no chest pain and no edema Gastrointestinal: + diarrhea/loose stools; no nausea and no vomiting Musculoskeletal: + joint pain (right shoulder); no back pain Physical Exam Constitutional: well developed, well nourished and + frail appearing; no acute distress Eyes: PERRL, conjunctivae normal, anicteric sclerae ENMT: external ear and nose normal, oropharynx normal Neck: trachea midline, no thyromegaly Respiratory: normal respiratory effort, lungs clear to auscultation Cardiovascular: RRR, no murmur, no edema Gastrointestinal (Abdomen): normal bowel sounds, soft, nontender, no hepatosplenomegaly Musculoskeletal: Head/Neck/Chest: normocephalic, head atraumatic and neck supple Extremities: extremities normal to inspection; no cyanosis, no clubb ing and no petechiae Skin: no rashes, warm and dry Neurologic: normal touch/pain/proprioception, CN's II-XI intact bilaterally and deep tendon reflexes 2+ bilaterally; no focal motor deficits Lymphatic: no cervical or axillary lymphadenopathy Results & Data Results & Data ([facility]) Vital Signs (Past 12 Hours) Vital Signs Temp Pulse Pulse Resp BP BP Pulse Ox 03/25/20 19:31 36.6 C 76 20 172/82 H 97 03/25/20 16:00 68 03/25/20 15:17 36.8 C 68 20 172/72 H 97 03/25/20 14:36 95 03/25/20 10:59 36.6 C 67 18 168/71 H 96 Laboratory Results Laboratory Results - last 24 hr 03/20/20 03/24/20 03/25/20 10:38 23:18 04:34 WBC 2.49 L RBC 2.63 L Hgb 8.0 L Hct 24.0 L MCV 91.3 MCH 30.4 MCHC 33.3 RDW Std Deviation 54.1 H RDW Coeff of Karina 16.2 H Plt Count 33 L MPV 8.6 PT INR Sodium Potassium Chloride Carbon Dioxide Anion Gap BUN Creatinine Est Cr Clr Drug Dosing Est GFR ( Amer) Est GFR (Non-Af Amer) BUN/Creatinine Ratio Glucose POC Glucose 144 H Calcium Total Bilirubin AST ALT Alkaline Phosphatase Ammonia Total Protein Albumin Globulin Albumin/Globulin Ratio Crossmatch See Detail 03/25/20 03/25/20 03/25/20 04:34 04:34 04:34 WBC RBC Hgb Hct MCV MCH MCHC RDW Std Deviation RDW Coeff of Karina Plt Count MPV PT 13.5 H INR 1.3 H Sodium 146 H Potassium 4.0 Chloride 120 H Carbon Dioxide 20 L Anion Gap 6.0 BUN 38 H Creatinine 2.05 H Est Cr Clr Drug Dosing 25.7 Est GFR ( Amer) 29.2 Est GFR (Non-Af Amer) 25.2 BUN/Creatinine Ratio 18.6 Glucose 155 H POC Glucose Calcium 7.4 L Total Bilirubin 0.8 AST 25 ALT 14 Alkaline Phosphatase 123 H Ammonia 55.0 H Total Protein 6.0 L Albumin 1.9 L Globulin 4.1 H Albumin/Globulin Ratio 0.5 L Crossmatch 03/25/20 03/25/20 03/25/20 06:08 11:01 16:06 WBC RBC Hgb Hct MCV MCH MCHC RDW Std Deviation RDW Coeff of Karina Plt Count MPV PT INR Sodium Potassium Chloride Carbon Dioxide Anion Gap BUN Creatinine Est Cr Clr Drug Dosing Est GFR ( Amer) Est GFR (Non-Af Amer) BUN/Creatinine Ratio Glucose POC Glucose 157 H 185 H 84 Calcium Total Bilirubin AST ALT Alkaline Phosphatase Ammonia Total Protein Albumin Globulin Albumin/Globulin Ratio Crossmatch 03/25/20 20:19 WBC RBC Hgb Hct MCV MCH MCHC RDW Std Deviation RDW Coeff of Karina Plt Count MPV PT INR Sodium Potassium Chloride Carbon Dioxide Anion Gap BUN Creatinine Est Cr Clr Drug Dosing Est GFR ( Amer) Est GFR (Non-Af Amer) BUN/Creatinine Ratio Glucose POC Glucose 97 Calcium Total Bilirubin AST ALT Alkaline Phosphatase Ammonia Total Protein Albumin Globulin Albumin/Globulin Ratio Crossmatch Medications Administered Current Inpatient Medications Carvedilol (Coreg) 6.25 mg PO BID BOBBY Stop: 04/24/20 20:59 Last Admin: 03/25/20 20:32 Dose: 6.25 mg Documented by: Dextrose (Dextrose 50%) 25 - 50 ml IV UD PRN; Protocol PRN Reason: Hypoglycemia Protocol Stop: 04/19/20 15:14 Folic Acid (Folvite) 1 mg PO BID BOBBY Stop: 04/24/20 20:59 Last Admin: 03/25/20 20:31 Dose: 1 mg Documented by: Glucagon (Glucagen) 1 mg IM UD PRN; Protocol PRN Reason: Hypoglycemia Protocol Stop: 04/19/20 15:14 Glucose (Glucose 40%) 15 - 30 gm PO UD PRN; Protocol PRN Reason: Hypoglycemia Protocol Stop: 04/19/20 15:14 Glucose (Dex4 Glucose) 4 - 8 tabs PO UD PRN; Protocol PRN Reason: Hypoglycemia Protocol Stop: 04/19/20 15:14 Ceftriaxone Sodium 2,000 mg/ (Dextrose) 70 mls @ 140 mls/hr IV Q24H BOBBY Stop: 03/27/20 10:59 Last Infusion: 03/25/20 11:55 Dose: Infused Documented by: Pantoprazole Sodium 40 mg/ (Syringe) 10 mls @ 5 mls/min IV BID BOBBY Stop: 04/21/20 08:59 Last Admin: 03/25/20 20:30 Dose: 5 mls/min Documented by: Insulin Aspart (Novolog Flexpen) 0 units SC ACHS BOBBY Stop: 04/24/20 12:44 Last Admin: 03/25/20 20:29 Dose: Not Given Documented by: Insulin Glargine (Lantus Solostar Pen) 15 units SQ HS BOBBY Stop: 04/19/20 20:59 Last Admin: 03/25/20 20:28 Dose: 15 units Documented by: Lactulose (Chronulac) 30 gm OG Q6 BOBBY Stop: 04/21/20 16:59 Last Admin: 03/25/20 17:59 Dose: 30 gm Documented by: Lidocaine (Lidoderm 5%) 1 patch TD TODAY@2100 [facility] Stop: 04/24/20 20:59 Last Admin: 03/25/20 21:25 Dose: 1 patch Documented by: Miscellaneous (Carbohydrates For Hypoglycemia) 15 - 30 gm PO UD PRN PRN Reason: Hypoglycemia Treatment Stop: 04/19/20 15:14 Miscellaneous (Remove Lidoderm Patch) 1 ea N/A DAILY@0900 [facility] Stop: 04/25/20 08:59 Rifaximin (Xifaxan) 550 mg PO BID [facility] Stop: 04/20/20 20:59 Last Admin: 03/25/20 20:32 Dose: 550 mg Documented by: Ropinirole HCl (Requip) 2 mg PO HS [facility] Stop: 04/24/20 20:59 Last Admin: 03/25/20 20:31 Dose: 2 mg Documented by: PG Care Time/CCT Total # of Minutes Spent Total Time Spent with Patient: Total time spent is greater than 50% in coordination of care (as documented) at patient's floor/unit and/or counseling patient: Coding Level of Care Code 39897 Subseq Hosp Care Lvl 3 Diagnoses Acute GI bleeding K92.2 Hepatic encephalopathy K72.90 Hyperkalemia E87.5 Proximal humerus fracture S42.209A Fever R50.9 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
[2020-03-26] MEDS: LACTULOSE SYRUP 30 GM/45 ML UDP OG SCH ×5 (01:33→23:58)
[2020-03-26 07:31] LABS: Hematocrit (blood only) 24.7 % (37-47); Hemoglobin 7.9 g/dL (12.0-16.0); Mean Corpuscular Hemoglobin 29.3 pg (25-34); Mean Corpuscular Volume 91.5 fL (80-100); RDW Standard Deviation 53.8 fL (36.4-46.3); White Blood Count 2.07 K/uL (4.8-10.8)
[2020-03-26] MEDS: INSULIN ASPART 100 UNITS/ML 3 ML PEN SC SCH ×4 (07:34→20:20)
[2020-03-26 07:37] LABS: Mean Platelet Volume 9.6 fL (7.4-10.4); Platelet Count 35 K/uL (130-400)
[2020-03-26] MEDS: FOLIC ACID 1 MG TAB PO SCH ×2 (07:56→20:20)
[2020-03-26] MEDS: PANTOprazole 40 MG in SYRINGE 0 ML IV SCH ×2 (07:56→20:20)
[2020-03-26] MEDS: carvediloL 6.25 MG TAB PO SCH ×2 (07:56→20:20)
[2020-03-26] MEDS: RIFAXIMIN 550 MG TABLET PO SCH ×2 (07:56→20:20)
[2020-03-26 08:04] LABS: Albumin Level 2.1 gm/dl (3.4-5.0); BUN Creatinine Ratio 19.2 (10-20); Calcium 8.5 mg/dl (8.5-10.1); Creatinine Clr Calc Pharmacy 27.4 ml/min; Est GFR (African American) 31.2; Est GFR (Non-African American) 26.9; Potassium 4.1 mmol/L (3.5-5.1)
[2020-03-26 08:07] LABS: Albumin Globulin Ratio 0.5 (0.9-2); Bilirubin,Total 0.6 mg/dl (0.2-1); Globulin 4.1 gm/dl (2.5-4.0); Total Protein 6.2 gm/dl (6.4-8.2)
[2020-03-26] MEDS ORDERED: LIDOCAINE 5% 1 PATCH TD SCH (09:00)
[2020-03-26] MEDS: cefTRIAXone SODIUM 2,000 MG in DEXTROSE 5% 50 ML IV SCH (10:54)
--- NOTE | 2020-03-26 14:05 | Nephrology Progress Note ---
Date of Service March 26, 2020 Assessment & Plan (1) Acute on chronic renal insufficiency: Creatinine improved to 1.9 mg/dL. BP acceptable. Volume status euvolemic. Non-oliguric. HENRIQUE hemodynamic in setting of acute blood loss anemia requiring PRBC transfusion support. Complicated by dehydration and acute on chronic HE. Clinically improving overall. Tolerating PO fluids. Medications appropriate for kidney function. Collins to be removed. Repeat metabolic profile tomorrow AM. (2) Metabolic acidosis: Attributed to HENRIQUE and GI losses. Will monitor. HCO3 replacement PRN. (3) Hypernatremia: Tolerating adequate fluids by mouth. Free water deficit improved. (4) Hepatic encephalopathy: Improved with treatment. Goals of care reviewed with patient and this AM. (5) Chronic kidney disease, stage III (moderate): Baseline creatinine 1.6 to 2.0 mg/dL. Outpatient follow up will be arranged at discharge. 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 Mr. Sherman would like Angela to return home. He understands that her condition is guarded. Expressed interest in potential short term rehab post discharge. Admission and Anticipated Discharge Date Admission Date: March 20, 2020 Subjective No acute events overnight. Angela was seen and evaluated with her at the bedside. Significant improvement reported. No acute complaints. Appetite is good. Collins remains intact. Ambulating to bathroom. Review of Systems Review of Systems: All systems reviewed & are unremarkable except as noted in HPI & below Constitutional: no weight loss, no weight gain and no problem reported Eyes: no problem reported Ear, Nose, Mouth, Throat: no problem reported Respiratory: no problem reported Cardiovascular: no problem reported Gastrointestinal: no problem reported Musculoskeletal: no problem reported Integumentary: no problem reported Neurologic: no problem reported Psychiatric: no problem reported Endocrine: no problem reported Hematologic / Lymphatic: no problem reported Physical Exam Constitutional: well developed; no acute distress Eyes: no scleral abnormality and no corneal abnormality ENMT: Mouth: no oral mucosal abnormality and oral mucous membranes not dry Neck: normal visual inspection and trachea midline Respiratory: normal respiratory effort Auscultation: lungs clear to auscultation bilaterally Cardiovascular: Rate/Rhythm: regular rate Heart Sounds: normal S1 and normal S2 Extremities: no edema Musculoskeletal: Extremities: no cyanosis and no clubbing Skin: normal turgor; no lesions Neurologic: Motor/Sensory: no tremor and no asterixis Psychiatric: Orientation: alert and oriented x 3 Results & Data ([facility]) Vital Signs (Past 12 Hours) Vital Signs Temp Pulse Pulse Resp BP Pulse Ox 03/26/20 11:30 36.6 C 62 18 130/84 93 03/26/20 08:00 60 03/26/20 07:50 37.3 C 65 18 149/70 H 95 03/26/20 03:54 36.9 C 68 18 146/73 H 97 Laboratory Results Laboratory Results - last 24 hr 03/25/20 03/25/20 03/26/20 16:06 20:19 07:15 WBC 2.07 L RBC 2.70 L Hgb 7.9 L Hct 24.7 L MCV 91.5 MCH 29.3 MCHC 32.0 RDW Std Deviation 53.8 H RDW Coeff of Karina 16.0 H Plt Count 35 L MPV 9.6 Sodium Potassium Chloride Carbon Dioxide Anion Gap BUN Creatinine Est Cr Clr Drug Dosing Est GFR ( Amer) Est GFR (Non-Af Amer) BUN/Creatinine Ratio Glucose POC Glucose 84 97 Calcium Total Bilirubin AST ALT Alkaline Phosphatase Ammonia Total Protein Albumin Globulin Albumin/Globulin Ratio 03/26/20 03/26/20 03/26/20 07:15 07:15 07:25 WBC RBC Hgb Hct MCV MCH MCHC RDW Std Deviation RDW Coeff of Karina Plt Count MPV Sodium 145 Potassium 4.1 Chloride 120 H Carbon Dioxide 19 L Anion Gap 6.0 BUN 37 H Creatinine 1.94 H Est Cr Clr Drug Dosing 27.4 Est GFR ( Amer) 31.2 Est GFR (Non-Af Amer) 26.9 BUN/Creatinine Ratio 19.2 Glucose 89 POC Glucose 94 Calcium 8.5 Total Bilirubin 0.6 AST 27 ALT 14 Alkaline Phosphatase 128 H Ammonia 55.7 H Total Protein 6.2 L Albumin 2.1 L Globulin 4.1 H Albumin/Globulin Ratio 0.5 L 03/26/20 11:28 WBC RBC Hgb Hct MCV MCH MCHC RDW Std Deviation RDW Coeff of Karina Plt Count MPV Sodium Potassium Chloride Carbon Dioxide Anion Gap BUN Creatinine Est Cr Clr Drug Dosing Est GFR ( Amer) Est GFR (Non-Af Amer) BUN/Creatinine Ratio Glucose POC Glucose 145 H Calcium Total Bilirubin AST ALT Alkaline Phosphatase Ammonia Total Protein Albumin Globulin Albumin/Globulin Ratio PG Care Time/CCT Total # of Minutes Spent Total Time Spent with Patient: Total time spent is greater than 50% in coordination of care (as documented) at patient's floor/unit and/or counseling patient: Coding Level of Care Code 85814 Subseq Hosp Care Lvl 3 Diagnoses Acute on chronic renal insufficiency N28.9; N18.9 Metabolic acidosis E87.2 Hypernatremia E87.0 Hepatic encephalopathy K72.90 Chronic kidney disease, stage III (moderate) N18.3 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 K75.81; K74.60
[2020-03-26] MEDS: INSULIN GLARGINE SOLOSTAR 100 UNITS/ML 3 ML PEN SQ SCH (20:19)
[2020-03-26] MEDS: ROPINIROLE HCL 1 MG TABLET PO SCH (20:20)
[2020-03-26] MEDS: LIDOCAINE 5% 1 PATCH TD SCH (20:21)
--- NOTE | 2020-03-26 21:31 | Hospitalist Progress Note ---
Date of Service March 26, 2020 Assessment & Plan (1) Acute GI bleeding: (1) Acute blood loss anemia: EGD on 03/21 with portal gastropathy, varices (no stigmata of bleeding) and gastric AVM, the AVM was clipped Hb stable and BP stable after 3 units of PRBC and one unit platelets recommendations from GI: protonix BID, octreotide drip x 3 days (completed) Rocephin x 7 days Hb is 7.9 today, no signs of bleeding (2) GI bleed: based on EGD, likely source is AVM in stomach has varices but no stigmata of recent bleeding no signs of melena, H/H stable at 7.9 (3) Hyperkalemia: Secondary to acute kidney injury Potassium down to normal, improvement with volume administration and Diuril continue to follow (4) Hepatic encephalopathy: Ammonia level 208 on admission, per her , she was not taking Lactulose because she was having loose stools ammonia down to 50's, stable continue Rifaximin and Lactulose, change to PO now that she is extubated appears to be at baseline mental status (5) HENRIQUE (acute kidney injury): Creatinine up to 2.69, BUN up to 85, from baseline of creatinine 1.8-2.0 BUN likely also up due to GI bleeding Cr improving today, down to 1.9 consult nephrology, Dr. Galeano following, appreciate her input follow UO (she is non-oliguric), check BMP in the morning Urine Cr was elevated at 80, do not suspect this is HRS hammond out, making adequate urine defer resuming Lasix and Aldactone to nephrology (6) Metabolic acidosis: due to HENRIQUE stop sodium bicarb HCO3 is 19 today (7) 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: As above, with portal hypertension octreotide drip for three days resume maintenance therapy with diuretics once appropriate continue Lactulose and Rifaximin will have talk with patient and her about prognosis follows with [facility] (8) Klebsiella UTI: complete a 7 day course of antibiotics, on Rocephin currently (9) Diabetic nephropathy associated with type 2 diabetes mellitus: Noted (10) Diabetes type 2, uncontrolled: Continue Lantus and NovoLog monitor for hypoglycemia (11) Pancytopenia: Secondary to cirrhosis and acute on chronic anemia counts are low but stable, plts 33k (12) Restless leg syndrome Requip (13) Obstructive sleep apnea: Wears 2 L nasal cannula at nighttime (14) Hypertension: Hypertensive currently resume Coreg (15) Depression: Noted Not currently on medication for this (16) Pulmonary hypertension: Noted on most recent echocardiogram (17) Mitral regurgitation: Mild on most recent echocardiogram (18) Aortic stenosis: Trivial aortic stenosis on most recent echocardiogram (19) Vitamin D deficiency: Hold home vitamin D supplementation (20) Psoriatic arthritis: Not on medications for this (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 Protonix and doing Protonix drip for now (23) Chronic kidney disease, stage III (moderate): Follows with nephrology, baseline creatinine 1.8 as above -Avoid nephrotoxins -renally dose meds when appropriate -follow BMP, Cr is 1.9 today (24) DVT prophylaxis: SCDs only given GI bleeding Disposition- transfer to medical floor (2) Hepatic encephalopathy: (3) Hyperkalemia: (4) Proximal humerus fracture: (5) Fever: (6) 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: (7) Acute on chronic renal insufficiency: (8) Hyperammonemia: (9) Metabolic acidosis: (10) Hypernatremia: 147 today (11) Diabetic nephropathy associated with type 2 diabetes mellitus: Noted (12) Humerus shaft fracture: (13) UTI (urinary tract infection): Admission and Anticipated Discharge Date Admission Date: March 20, 2020 Subjective patient doing great today, will move to medical floor eating better, feeling stronger, motivated to work with therapy labs reviewed, Cr down further, electrolytes stable, d/w manish White out ammonia is stable, counts are low but stable discussed that we would work on discharge to rehab on Saturday Review of Systems Review of Systems: All systems reviewed & are unremarkable except as noted in Subjective Physical Exam Constitutional: well developed, well nourished and + frail appearing; no acute distress Eyes: PERRL, conjunctivae normal, anicteric sclerae ENMT: external ear and nose normal, oropharynx normal Neck: trachea midline, no thyromegaly Respiratory: normal respiratory effort, lungs clear to auscultation Cardiovascular: RRR, no murmur, no edema Gastrointestinal (Abdomen): normal bowel sounds, soft, nontender, no hepatosplenomegaly Musculoskeletal: Head/Neck/Chest: normocephalic, head atraumatic and neck supple Extremities: extremities normal to inspection; no cyanosis, no clubbing and no petechiae Skin: no rashes, warm and dry Neurologic: normal touch/pain/proprioception, CN's II-XI intact bilaterally and deep tendon reflexes 2+ bilaterally; no focal motor deficits Lymphatic: no cervical or axillary lymphadenopathy Results & Data Results & Data ([facility]) Vital Signs (Past 12 Hours) Vital Signs Temp Pulse Pulse Resp BP Pulse Ox 03/26/20 16:00 69 03/26/20 15:39 36.9 C 65 20 174/72 H 93 03/26/20 11:30 36.6 C 62 18 130/84 93 Laboratory Results Laboratory Results - last 24 hr 03/26/20 03/26/20 03/26/20 07:15 07:15 07:15 WBC 2.07 L RBC 2.70 L Hgb 7.9 L Hct 24.7 L MCV 91.5 MCH 29.3 MCHC 32.0 RDW Std Deviation 53.8 H RDW Coeff of Karina 16.0 H Plt Count 35 L MPV 9.6 Sodium 145 Potassium 4.1 Chloride 120 H Carbon Dioxide 19 L Anion Gap 6.0 BUN 37 H Creatinine 1.94 H Est Cr Clr Drug Dosing 27.4 Est GFR ( Amer) 31.2 Est GFR (Non-Af Amer) 26.9 BUN/Creatinine Ratio 19.2 Glucose 89 POC Glucose Calcium 8.5 Total Bilirubin 0.6 AST 27 ALT 14 Alkaline Phosphatase 128 H Ammonia 55.7 H Total Protein 6.2 L Albumin 2.1 L Globulin 4.1 H Albumin/Globulin Ratio 0.5 L 03/26/20 03/26/20 03/26/20 07:25 11:28 16:23 WBC RBC Hgb Hct MCV MCH MCHC RDW Std Deviation RDW Coeff of Karina Plt Count MPV Sodium Potassium Chloride Carbon Dioxide Anion Gap BUN Creatinine Est Cr Clr Drug Dosing Est GFR ( Amer) Est GFR (Non-Af Amer) BUN/Creatinine Ratio Glucose POC Glucose 94 145 H 113 H Calcium Total Bilirubin AST ALT Alkaline Phosphatase Ammonia Total Protein Albumin Globulin Albumin/Globulin Ratio 03/26/20 20:11 WBC RBC Hgb Hct MCV MCH MCHC RDW Std Deviation RDW Coeff of Karina Plt Count MPV Sodium Potassium Chloride Carbon Dioxide Anion Gap BUN Creatinine Est Cr Clr Drug Dosing Est GFR ( Amer) Est GFR (Non-Af Amer) BUN/Creatinine Ratio Glucose POC Glucose 130 H Calcium Total Bilirubin AST ALT Alkaline Phosphatase Ammonia Total Protein Albumin Globulin Albumin/Globulin Ratio Medications Administered Current Inpatient Medications Carvedilol (Coreg) 6.25 mg PO BID BOBBY Stop: 04/24/20 20:59 Last Admin: 03/26/20 20:20 Dose: 6.25 mg Documented by: Dextrose (Dextrose 50%) 25 - 50 ml IV UD PRN; Protocol PRN Reason: Hypoglycemia Protocol Stop: 04/19/20 15:14 Folic Acid (Folvite) 1 mg PO BID BOBBY Stop: 04/24/20 20:59 Last Admin: 03/26/20 20:20 Dose: 1 mg Documented by: Glucagon (Glucagen) 1 mg IM UD PRN; Protocol PRN Reason: Hypoglycemia Protocol Stop: 04/19/20 15:14 Glucose (Glucose 40%) 15 - 30 gm PO UD PRN; Protocol PRN Reason: Hypoglycemia Protocol Stop: 04/19/20 15:14 Glucose (Dex4 Glucose) 4 - 8 tabs PO UD PRN; Protocol PRN Reason: Hypoglycemia Protocol Stop: 04/19/20 15:14 Ceftriaxone Sodium 2,000 mg/ (Dextrose) 70 mls @ 140 mls/hr IV Q24H BOBBY Stop: 03/27/20 10:59 Last Infusion: 03/26/20 11:38 Dose: Infused Documented by: Pantoprazole Sodium 40 mg/ (Syringe) 10 mls @ 5 mls/min IV BID BOBBY Stop: 04/21/20 08:59 Last Admin: 03/26/20 20:20 Dose: 5 mls/min Documented by: Insulin Aspart (Novolog Flexpen) 0 units SC ACHS BOBBY Stop: 04/24/20 12:44 Last Admin: 03/26/20 20:20 Dose: Not Given Documented by: Insulin Glargine (Lantus Solostar Pen) 15 units SQ HS BOBBY Stop: 04/19/20 20:59 Last Admin: 03/26/20 20:19 Dose: 15 units Documented by: Lactulose (Chronulac) 30 gm OG Q6 BOBBY Stop: 04/21/20 16:59 Last Admin: 03/26/20 18:15 Dose: 30 gm Documented by: Lidocaine (Lidoderm 5%) 1 patch TD TODAY@2100 [facility] Stop: 04/24/20 20:59 Last Admin: 03/26/20 20:21 Dose: 1 patch Documented by: Miscellaneous (Carbohydrates For Hypoglycemia) 15 - 30 gm PO UD PRN PRN Reason: Hypoglycemia Treatment Stop: 04/19/20 15:14 Miscellaneous (Remove Lidoderm Patch) 1 ea N/A DAILY@0900 [facility] Stop: 04/25/20 08:59 Last Admin: 03/26/20 07:57 Dose: 1 ea Documented by: Rifaximin (Xifaxan) 550 mg PO BID [facility] Stop: 04/20/20 20:59 Last Admin: 03/26/20 20:20 Dose: 550 mg Documented by: Ropinirole HCl (Requip) 2 mg PO HS [facility] Stop: 04/24/20 20:59 Last Admin: 03/26/20 20:20 Dose: 2 mg Documented by: PG Care Time/CCT Total # of Minutes Spent Total Time Spent with Patient: Total time spent is greater than 50% in coordination of care (as documented) at patient's floor/unit and/or counseling patient: Coding Level of Care Code 56626 Subseq Hosp Care Lvl 3 Diagnoses Acute GI bleeding K92.2 Hepatic encephalopathy K72.90 Hyperkalemia E87.5 Proximal humerus fracture S42.209A Fever R50.9 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 Humerus shaft fracture S42.309A UTI (urinary tract infection) N39.0
[2020-03-27] MEDS: LACTULOSE SYRUP 30 GM/45 ML UDP OG SCH ×4 (05:46→23:28)
[2020-03-27] MEDS ORDERED: MICONAZOLE NITRATE POWDER 43 GM EXT PRN (06:14)
[2020-03-27] MEDS: carvediloL 6.25 MG TAB PO SCH ×2 (07:58→20:38)
[2020-03-27] MEDS: FOLIC ACID 1 MG TAB PO SCH ×2 (07:58→20:39)
[2020-03-27] MEDS: RIFAXIMIN 550 MG TABLET PO SCH ×2 (07:58→20:41)
[2020-03-27] MEDS: PANTOprazole 40 MG in SYRINGE 0 ML IV SCH (07:59)
[2020-03-27 08:13] LABS: Hematocrit (blood only) 24.3 % (37-47); Hemoglobin 7.8 g/dL (12.0-16.0); Mean Corpuscular Hemoglobin 29.3 pg (25-34); Mean Corpuscular Hgb Conc 32.1 g/dL (32-36); Mean Corpuscular Volume 91.4 fL (80-100); Platelet Count 34 K/uL (130-400); RDW Coefficient of Variation 15.8 % (11.5-14.5); RDW Standard Deviation 53.2 fL (36.4-46.3); Red Blood Count 2.66 M/uL (4.2-5.4); White Blood Count 2.11 K/uL (4.8-10.8)
[2020-03-27] MEDS: INSULIN ASPART 100 UNITS/ML 3 ML PEN SC SCH ×4 (08:27→20:41)
[2020-03-27 08:33] LABS: Albumin Level 2.1 gm/dl (3.4-5.0); BUN Creatinine Ratio 18.3 (10-20); Calcium 8.8 mg/dl (8.5-10.1); Creatinine Clr Calc Pharmacy 29.3 ml/min; Est GFR (African American) 34.3; Est GFR (Non-African American) 29.6
[2020-03-27 08:36] LABS: Albumin Globulin Ratio 0.5 (0.9-2); Bilirubin,Total 0.7 mg/dl (0.2-1); Ferritin 120.6 ng/ml (8-388); Globulin 4.1 gm/dl (2.5-4.0); Total Protein 6.2 gm/dl (6.4-8.2)
[2020-03-27 09:25] LABS: Hematocrit (blood only) 23.6 % (37-47); Hemoglobin 7.7 g/dL (12.0-16.0); Mean Corpuscular Hemoglobin 29.6 pg (25-34); Mean Corpuscular Hgb Conc 32.6 g/dL (32-36); Mean Corpuscular Volume 90.8 fL (80-100); RDW Coefficient of Variation 15.9 % (11.5-14.5); RDW Standard Deviation 52.5 fL (36.4-46.3)
[2020-03-27 09:42] LABS: Albumin Level 2.1 gm/dl (3.4-5.0); BUN Creatinine Ratio 18.6 (10-20); Calcium 8.5 mg/dl (8.5-10.1); Creatinine Clr Calc Pharmacy 29.1 ml/min; Est GFR (African American) 34.1; Est GFR (Non-African American) 29.4; Potassium 4.2 mmol/L (3.5-5.1)
[2020-03-27 09:44] LABS: Platelet Count 36 K/uL (130-400)
[2020-03-27 09:45] LABS: Albumin Globulin Ratio 0.5 (0.9-2); Bilirubin,Total 0.7 mg/dl (0.2-1); Total Protein 6.1 gm/dl (6.4-8.2)
[2020-03-27] MEDS ORDERED: EPOETIN ALFA 20,000 UNITS/ML VIAL SQ STA (10:35)
--- NOTE | 2020-03-27 10:37 | Nephrology Progress Note ---
Date of Service March 27, 2020 Assessment & Plan (1) Acute on chronic renal insufficiency: Creatinine improved to 1.8 mg/dL. BP acceptable. Volume status remains euvolemic. Non-oliguric. HENRIQUE hemodynamic in setting of acute blood loss anemia requiring PRBC transfusion support complicated by dehydration and acute on chronic HE. Tolerating PO fluids with noted increasing free water deficit. Continues to have frequent loose bowel movements without blood. Fluids encouraged. Will continue to hold diuretics for now. Medications appropriate for kidney function. Collins removed yesterday. Repeat metabolic profile tomorrow AM. (2) Metabolic acidosis: Attributed to HENRIQUE and GI losses. Oral replacement with low dose NaHCO3 650 mg twice daily started this AM. (3) Hypernatremia: Tolerating adequate fluids by mouth. Reports thirst. Free water deficit increasing complicated by stool losses. Encourage easy access to water. (4) Hepatic encephalopathy: Recurrent and possibly complicated by underlying dementia. Discussed with patient and in detail yesterday. They acknowledged the advanced nature of underlying liver disease. (5) Chronic kidney disease, stage III (moderate): Baseline creatinine 1.6 to 2.0 mg/dL. Outpatient follow up with me can be arranged at discharge. (6) Liver cirrhosis secondary to AME: Ongoing discussion with patient and regarding overall prognosis and goals of care. Mr. Sherman would like Angela to return home. He understands that her condition is guarded. Potential discharge to short term rehab as soon as tomorrow. (7) Anemia: Hemoglobin remains low. No evidence of persistent GI bleeding per patient and nurse report. Iron stores acceptable (Tsat 39). Epogen 54902 units provided today. Admission and Anticipated Discharge Date Admission Date: March 20, 2020 Subjective No acute events overnight. Angela states that she is feeling better this AM. ~3 loose bowel movements yesterday. No blood noted. Activity tolerance improving. Denies significant pain. Appetite fair. No dyspnea. No chest pain. No fevers or chills. Review of Systems Review of Systems: All systems reviewed & are unremarkable except as noted in HPI & below Physical Exam Constitutional: well developed and + frail appearing; no acute distress Eyes: no scleral abnormality and no corneal abnormality ENMT: Mouth: no oral mucosal abnormality and oral mucous membranes not dry Neck: normal visual inspection and trachea midline Respiratory: normal respiratory effort Auscultation: lungs clear to auscu ltation bilaterally Cardiovascular: Rate/Rhythm: regular rate Heart Sounds: normal S1 and normal S2 Extremities: + edema (trace dependent) Musculoskeletal: Extremities: no cyanosis and no clubbing Skin: normal turgor; no lesions Neurologic: Motor/Sensory: no tremor and no asterixis Psychiatric: Orientation: alert and oriented x 3 Results & Data ([facility]) Vital Signs (Past 12 Hours) Vital Signs Temp Pulse Resp BP Pulse Ox 03/27/20 07:54 36.7 C 66 18 132/63 92 03/26/20 22:42 36.8 C 71 20 150/68 H 94 Laboratory Results Laboratory Results - last 24 hr 03/26/20 03/26/20 03/26/20 11:28 16:23 20:11 WBC RBC Hgb Hct MCV MCH MCHC RDW Std Deviation RDW Coeff of Karina Plt Count MPV Sodium Potassium Chloride Carbon Dioxide Anion Gap BUN Creatinine Est Cr Clr Drug Dosing Est GFR ( Amer) Est GFR (Non-Af Amer) BUN/Creatinine Ratio Glucose POC Glucose 145 H 113 H 130 H Calcium Iron Transferrin Transferrin % Sat Ferritin Total Bilirubin AST ALT Alkaline Phosphatase Ammonia Total Protein Albumin Globulin Albumin/Globulin Ratio 03/27/20 03/27/20 03/27/20 07:43 07:46 07:46 WBC 2.11 L RBC 2.66 L Hgb 7.8 L Hct 24.3 L MCV 91.4 MCH 29.3 MCHC 32.1 RDW Std Deviation 53.2 H RDW Coeff of Karina 15.8 H Plt Count 34 L MPV 10.0 Sodium 148 H Potassium 4.0 Chloride 124 H Carbon Dioxide 18 L Anion Gap 5.0 BUN 33 H Creatinine 1.79 H Est Cr Clr Drug Dosing 29.3 Est GFR ( Amer) 34.3 Est GFR (Non-Af Amer) 29.6 BUN/Creatinine Ratio 18.3 Glucose 68 L POC Glucose 80 Calcium 8.8 Iron 87 Transferrin 158 L Transferrin % Sat 39 Ferritin 120.6 Total Bilirubin 0.7 AST 30 ALT 16 Alkaline Phosphatase 144 H Ammonia Total Protein 6.2 L Albumin 2.1 L Globulin 4.1 H Albumin/Globulin Ratio 0.5 L 03/27/20 03/27/20 03/27/20 07:46 09:13 09:13 WBC 2.10 L RBC 2.60 L Hgb 7.7 L Hct 23.6 L MCV 90.8 MCH 29.6 MCHC 32.6 RDW Std Deviation 52.5 H RDW Coeff of Karina 15.9 H Plt Count 36 L MPV 10.0 Sodium 147 H Potassium 4.2 Chloride 125 H Carbon Dioxide 17 L Anion Gap 6.0 BUN 34 H Creatinine 1.80 H Est Cr Clr Drug Dosing 29.1 Est GFR ( Amer) 34.1 Est GFR (Non-Af Amer) 29.4 BUN/Creatinine Ratio 18.6 Glucose 122 H POC Glucose Calcium 8.5 Iron Transferrin Transferrin % Sat Ferritin Total Bilirubin 0.7 AST 32 ALT 17 Alkaline Phosphatase 145 H Ammonia 58.5 H Total Protein 6.1 L Albumin 2.1 L Globulin 4.0 Albumin/Globulin Ratio 0.5 L 03/27/20 09:13 WBC RBC Hgb Hct MCV MCH MCHC RDW Std Deviation RDW Coeff of Karina Plt Count MPV Sodium Potassium Chloride Carbon Dioxide Anion Gap BUN Creatinine Est Cr Clr Drug Dosing Est GFR ( Amer) Est GFR (Non-Af Amer) BUN/Creatinine Ratio Glucose POC Glucose Calcium Iron Transferrin Transferrin % Sat Ferritin Total Bilirubin AST ALT Alkaline Phosphatase Ammonia 69.9 H Total Protein Albumin Globulin Albumin/Globulin Ratio PG Care Time/CCT Total # of Minutes Spent Total Time Spent with Patient: Total time spent is greater than 50% in coordination of care (as documented) at patient's floor/unit and/or counseling patient: Coding Level of Care Code 77843 Subseq Hosp Care Lvl 3 Diagnoses Acute on chronic renal insufficiency N28.9; N18.9 Metabolic acidosis E87.2 Hypernatremia E87.0 Hepatic encephalopathy K72.90 Chronic kidney disease, stage III (moderate) N18.3 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 K75.81; K74.60 Anemia D64.9
[2020-03-27] MEDS: cefTRIAXone SODIUM 2,000 MG in DEXTROSE 5% 50 ML IV SCH (10:47)
[2020-03-27] MEDS: SODIUM BICARBONATE 650 MG TAB PO SCH ×2 (11:21→20:42)
[2020-03-27] MEDS ORDERED: TRAMADOL HCL 50 MG TABLET PO PRN (15:44)
[2020-03-27] MEDS: LIDOCAINE 5% 1 PATCH TD SCH (20:38)
[2020-03-27] MEDS: PANTOprazole 40 MG TAB PO SCH (20:39)
[2020-03-27] MEDS: INSULIN GLARGINE SOLOSTAR 100 UNITS/ML 3 ML PEN SQ SCH (20:40)
[2020-03-27] MEDS: ROPINIROLE HCL 1 MG TABLET PO SCH (20:41)
--- NOTE | 2020-03-27 21:50 | Hospitalist Progress Note ---
Date of Service March 27, 2020 Assessment & Plan (1) Acute GI bleeding: (1) Acute blood loss anemia: EGD on 03/21 with portal gastropathy, varices (no stigmata of bleeding) and gastric AVM, the AVM was clipped Hb stable and BP stable after 3 units of PRBC and one unit platelets recommendations from GI: protonix BID, octreotide drip x 3 days (completed) Rocephin x 7 days which is tomorrow Hb is 7.7 today, no signs of bleeding give EPO, repeat CBC tomorrow (2) GI bleed: based on EGD, likely source is AVM in stomach has varices but no stigmata of recent bleeding no signs of melena, H/H stable at 7.7, check CBC tomorrow (3) Hyperkalemia: Secondary to acute kidney injury Potassium down to normal, improvement with volume administration and Diuril continue to follow, K is 4.2 today (4) Hepatic encephalopathy: Ammonia level 208 on admission, per her , she was not taking Lactulose because she was having loose stools ammonia down to 60's, stable continue Rifaximin BID and Lactulose 30gm q6 appears to be at baseline mental status (5) HENRIQUE (acute kidney injury): Creatinine up to 2.69, BUN up to 85, from baseline of creatinine 1.8-2.0 BUN likely also up due to GI bleeding Cr improving today, down to 1.8 consult nephrology, Dr. Galeano following, appreciate her input follow UO (she is non-oliguric), check BMP in the morning Urine Cr was elevated at 80, do not suspect this is HRS hammond out, making adequate urine hold Lasix and Aldactone as she is euvolemic, might even hold on discharge as she loses volume every day with diarrhea (6) Metabolic acidosis: due to HENRIQUE but also driven by diarrhea, anion gap is normal continue sodium bicarb BID, on this at home HCO3 is 17 today (7) 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: As above, with portal hypertension octreotide drip for three days, complete resume maintenance therapy with diuretics once appropriate continue Lactulose and Rifaximin follows with [facility], will call for appt CHARLY after discharge MELD score 15 but also has elevated ammonia, low platelets, anemia, varices would benefit from referral to liver specialist if not already done (8) Klebsiella UTI: complete a 7 day course of antibiotics, on Rocephin currently, last dose would be tomorrow 03/28 (9) Diabetic nephropathy associated with type 2 diabetes mellitus: Noted (10) Diabetes type 2, uncontrolled: Continue Lantus and NovoLog monitor for hypoglycemia (11) Pancytopenia: Secondary to cirrhosis and acute on chronic anemia counts are low but stable, plts 36k (12) Restless leg syndrome Requip (13) Obstructive sleep apnea: Wears 2 L nasal cannula at nighttime (14) Hypertension: Hypertensive currently resume Coreg (15) Depression: Noted Not currently on medication for this (16) Pulmonary hypertension: Noted on most recent echocardiogram (17) Mitral regurgitation: Mild on most recent echocardiogram (18) Aortic stenosis: Trivial aortic stenosis on most recent echocardiogram (19) Vitamin D deficiency: Hold home vitamin D supplementation (20) Psoriatic arthritis: Not on medications for this (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 Protonix and doing Protonix drip for now (23) Chronic kidney disease, stage III (moderate): Follows with nephrology, baseline creatinine 1.8 as above -Avoid nephrotoxins -renally dose meds when appropriate -follow BMP, Cr is 1.8 today (24) DVT prophylaxis: SCDs only given GI bleeding Disposition- transfer to medical floor (2) Hepatic encephalopathy: (3) Hyperkalemia: (4) Proximal humerus fracture: remain in sling, non-operative, this was diagnosed prior to admission Ultram for pain plan for rehab if approved (5) Fever: (6) 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: (7) Acute on chronic renal insufficiency: (8) Hyperammonemia: (9) Metabolic acidosis: (10) Hypernatremia: (11) Diabetic nephropathy associated with type 2 diabetes mellitus: Noted (12) Humerus shaft fracture: (13) UTI (urinary tract infection): Admission and Anticipated Discharge Date Admission Date: March 20, 2020 Subjective patient doing well today, eating all her food, drinking well with loose stools but tolerating working with therapy, she ambulated more yesterday hopeful for rehab tomorrow updated her at the bedside, we discussed GI follow up she follows with [facility] she was supposed to have appt last Saturday but she was admitted to hospital we discussed MELD score of 15 currently, her said that the event security officer had said a MELD score of 15 would prompt referral to retail mortgage banker at [facility] I discussed that she has other issues that MELD score does not take into account, such as varices, thrombocytopenia, encephalopathy explained that they need to follow up closely with GI after discharge, they agree, says he plans to call office tomorrow reviewed labs, Cr down to 1.8, Ammonia 69 but mental status stable, plts 36 and Hb 7.7 d/w Dr. Galeano, he will give Procrit for anemia, agrees to hold Lasix and spironolactone for now, she is euvolemic, maybe even a little dry Review of Systems Review of Systems: All systems reviewed & are unremarkable except as noted in Subjective Physical Exam Constitutional: well developed, well nourished and + frail appearing; no acute distress Eyes: PERRL, conjunctivae normal, anicteric sclerae ENMT: external ear and nose normal, oropharynx normal Neck: trachea midline, no thyromegaly Respiratory: normal respiratory effort, lungs clear to auscultation Cardiovascular: RRR, no murmur, no edema Gastrointestinal (Abdomen): normal bowel sounds, soft, nontender, no hepatosplenomegaly Musculoskeletal: Head/Neck/Chest: normocephalic, head atraumatic and neck supple Extremities: extremities normal to inspection; no cyanosis, no clubbing and no petechiae Skin: no rashes, warm and dry Neurologic: normal touch/pain/proprioception, CN's II-XI intact bilaterally and deep tendon reflexes 2+ bilaterally; no focal motor deficits Lymphatic: no cervical or axillary lymphadenopathy Results & Data Results & Data ([facility]) Vital Signs (Past 12 Hours) Vital Signs Temp Pulse Resp BP Pulse Ox 03/27/20 14:45 36.5 C 65 17 168/68 H 94 Laboratory Results Laboratory Results - last 24 hr 03/27/20 03/27/20 03/27/20 07:43 07:46 07:46 WBC 2.11 L RBC 2.66 L Hgb 7.8 L Hct 24.3 L MCV 91.4 MCH 29.3 MCHC 32.1 RDW Std Deviation 53.2 H RDW Coeff of Karina 15.8 H Plt Count 34 L MPV 10.0 Sodium 148 H Potassium 4.0 Chloride 124 H Carbon Dioxide 18 L Anion Gap 5.0 BUN 33 H Creatinine 1.79 H Est Cr Clr Drug Dosing 29.3 Est GFR ( Amer) 34.3 Est GFR (Non-Af Amer) 29.6 BUN/Creatinine Ratio 18.3 Glucose 68 L POC Glucose 80 Calcium 8.8 Iron 87 Transferrin 158 L Transferrin % Sat 39 Ferritin 120.6 Total Bilirubin 0.7 AST 30 ALT 16 Alkaline Phosphatase 144 H Ammonia Total Protein 6.2 L Albumin 2.1 L Globulin 4.1 H Albumin/Globulin Ratio 0.5 L 03/27/20 03/27/20 03/27/20 07:46 09:13 09:13 WBC 2.10 L RBC 2.60 L Hgb 7.7 L Hct 23.6 L MCV 90.8 MCH 29.6 MCHC 32.6 RDW Std Deviation 52.5 H RDW Coeff of Karina 15.9 H Plt Count 36 L MPV 10.0 Sodium 147 H Potassium 4.2 Chloride 125 H Carbon Dioxide 17 L Anion Gap 6.0 BUN 34 H Creatinine 1.80 H Est Cr Clr Drug Dosing 29.1 Est GFR ( Amer) 34.1 Est GFR (Non-Af Amer) 29.4 BUN/Creatinine Ratio 18.6 Glucose 122 H POC Glucose Calcium 8.5 Iron Transferrin Transferrin % Sat Ferritin Total Bilirubin 0.7 AST 32 ALT 17 Alkaline Phosphatase 145 H Ammonia 58.5 H Total Protein 6.1 L Albumin 2.1 L Globulin 4.0 Albumin/Globulin Ratio 0.5 L 03/27/20 03/27/20 03/27/20 09:13 11:38 17:09 WBC RBC Hgb Hct MCV MCH MCHC RDW Std Deviation RDW Coeff of Karina Plt Count MPV Sodium Potassium Chloride Carbon Dioxide Anion Gap BUN Creatinine Est Cr Clr Drug Dosing Est GFR ( Amer) Est GFR (Non-Af Amer) BUN/Creatinine Ratio Glucose POC Glucose 129 H 178 H Calcium Iron Transferrin Transferrin % Sat Ferritin Total Bilirubin AST ALT Alkaline Phosphatase Ammonia 69.9 H Total Protein Albumin Globulin Albumin/Globulin Ratio 03/27/20 20:35 WBC RBC Hgb Hct MCV MCH MCHC RDW Std Deviation RDW Coeff of Karina Plt Count MPV Sodium Potassium Chloride Carbon Dioxide Anion Gap BUN Creatinine Est Cr Clr Drug Dosing Est GFR ( Amer) Est GFR (Non-Af Amer) BUN/Creatinine Ratio Glucose POC Glucose 111 H Calcium Iron Transferrin Transferrin % Sat Ferritin Total Bilirubin AST ALT Alkaline Phosphatase Ammonia Total Protein Albumin Globulin Albumin/Globulin Ratio Medications Administered Current Inpatient Medications Carvedilol (Coreg) 6.25 mg PO BID BOBBY Stop: 04/24/20 20:59 Last Admin: 03/27/20 20:38 Dose: 6.25 mg Documented by: Dextrose (Dextrose 50%) 25 - 50 ml IV UD PRN; Protocol PRN Reason: Hypoglycemia Protocol Stop: 04/19/20 15:14 Folic Acid (Folvite) 1 mg PO BID BOBBY Stop: 04/24/20 20:59 Last Admin: 03/27/20 20:39 Dose: 1 mg Documented by: Glucagon (Glucagen) 1 mg IM UD PRN; Protocol PRN Reason: Hypoglycemia Protocol Stop: 04/19/20 15:14 Glucose (Glucose 40%) 15 - 30 gm PO UD PRN; Protocol PRN Reason: Hypoglycemia Protocol Stop: 04/19/20 15:14 Glucose (Dex4 Glucose) 4 - 8 tabs PO UD PRN; Protocol PRN Reason: Hypoglycemia Protocol Stop: 04/19/20 15:14 Insulin Aspart (Novolog Flexpen) 0 units SC ACHS BOBBY Stop: 04/24/20 12:44 Last Admin: 03/27/20 20:41 Dose: Not Given Documented by: Insulin Glargine (Lantus Solostar Pen) 15 units SQ HS BOBBY Stop: 04/19/20 20:59 Last Admin: 03/27/20 20:40 Dose: 15 units Documented by: Lactulose (Chronulac) 30 gm OG Q6 BOBBY Stop: 04/21/20 16:59 Last Admin: 03/27/20 18:08 Dose: 30 gm Documented by: Lidocaine (Lidoderm 5%) 1 patch TD TODAY@2100 COUNT INCLUDES THE [facility] Stop: 04/24/20 20:59 Last Admin: 03/27/20 20:38 Dose: 1 patch Documented by: Miconazole Nitrate (Desenex) 1 appln EXT PRN PRN PRN Reason: Affected Skin Folds Stop: 04/26/20 06:13 Miscellaneous (Carbohydrates For Hypoglycemia) 15 - 30 gm PO UD PRN PRN Reason: Hypoglycemia Treatment Stop: 09/01/20 15:14 Miscellaneous (Remove Lidoderm Patch) 1 ea N/A DAILY@0900 COUNT INCLUDES THE [facility] Stop: 04/25/20 08:59 Last Admin: 03/27/20 07:59 Dose: 1 ea Documented by: Pantoprazole Sodium (Protonix) 40 mg PO BID COUNT INCLUDES THE [facility]; Protocol Stop: 04/26/20 20:59 Last Admin: 03/27/20 20:39 Dose: 40 mg Documented by: Rifaximin (Xifaxan) 550 mg PO BID COUNT INCLUDES THE [facility] Stop: 04/20/20 20:59 Last Admin: 03/27/20 20:41 Dose: 550 mg Documented by: Ropinirole HCl (Requip) 2 mg PO HS COUNT INCLUDES THE [facility] Stop: 04/24/20 20:59 Last Admin: 03/27/20 20:41 Dose: 2 mg Documented by: Sodium Bicarbonate (Sodium Bicarbonate) 650 mg PO BID COUNT INCLUDES THE [facility] Stop: 04/26/20 10:44 Last Admin: 03/27/20 20:42 Dose: 650 mg Documented by: Tramadol HCl (Ultram) 50 mg PO Q8 PRN PRN Reason: Pain Stop: 04/26/20 15:43 Last Admin: 03/27/20 16:09 Dose: 50 mg Documented by: PG Care Time/CCT Total # of Minutes Spent Total Time Spent: 37 Total Time Spent with Patient: Total time spent is greater than 50% in coordination of care (as documented) at patient's floor/unit and/or counseling patient: Coding Level of Care Code 66413 Subseq Hosp Care Lvl 3 Diagnoses Acute GI bleeding K92.2 Hepatic encephalopathy K72.90 Hyperkalemia E87.5 Proximal humerus fracture S42.209A Fever R50.9 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 Humerus shaft fracture S42.309A UTI (urinary tract infection) N39.0
[2020-03-28 05:28] LABS: Hematocrit (blood only) 23.9 % (37-47); Hemoglobin 7.7 g/dL (12.0-16.0); Mean Corpuscular Hemoglobin 29.4 pg (25-34); Mean Corpuscular Hgb Conc 32.2 g/dL (32-36); Mean Corpuscular Volume 91.2 fL (80-100); RDW Coefficient of Variation 15.9 % (11.5-14.5); RDW Standard Deviation 53.3 fL (36.4-46.3); Red Blood Count 2.62 M/uL (4.2-5.4); White Blood Count 2.23 K/uL (4.8-10.8)
[2020-03-28] MEDS: LACTULOSE SYRUP 30 GM/45 ML UDP OG SCH ×3 (06:00→18:08)
[2020-03-28 06:05] LABS: BUN Creatinine Ratio 17.8 (10-20); Calcium 8.7 mg/dl (8.5-10.1); Creatinine Clr Calc Pharmacy 30.8 ml/min; Est GFR (African American) 36.6; Est GFR (Non-African American) 31.5; Potassium 3.9 mmol/L (3.5-5.1)
[2020-03-28 06:06] LABS: Mean Platelet Volume 9.2 fL (7.4-10.4); Platelet Count 33 K/uL (130-400)
[2020-03-28] MEDS: carvediloL 6.25 MG TAB PO SCH (09:36)
[2020-03-28] MEDS: SODIUM BICARBONATE 650 MG TAB PO SCH (09:36)
[2020-03-28] MEDS: RIFAXIMIN 550 MG TABLET PO SCH (09:38)
[2020-03-28] MEDS: FOLIC ACID 1 MG TAB PO SCH (09:38)
[2020-03-28] MEDS: PANTOprazole 40 MG TAB PO SCH (09:38)
--- NOTE | 2020-03-28 09:40 | Nephrology Progress Note ---
Date of Service March 28, 2020 Assessment & Plan (1) Acute on chronic renal insufficiency: Creatinine improved to 1.7 mg/dL. BP acceptable. Volume status remains euvolemic. Non-oliguric. HENRIQUE hemodynamic in setting of acute blood loss anemia requiring PRBC transfusion support complicated by dehydration and acute on chronic HE. Tolerating PO fluids with noted persistent free water deficit. Encouraged to drink free water. Water at bedside easily available. Continues to have frequent loose bowel movements without blood. Will continue to hold diuretics for now. Medications appropriate for kidney function. (2) Metabolic acidosis: Attributed to HENRIQUE and GI losses. Oral replacement with low dose NaHCO3 650 mg twice daily restarted yesterday. (3) Hypernatremia: Tolerating adequate fluids by mouth. Reports thirst. Free water deficit increasing complicated by stool losses. Encourage easy access to water. (4) Hepatic encephalopathy: Close outpatient follow up with hepatology encouraged. (5) Chronic kidney disease, stage III (moderate): Baseline creatinine 1.6 to 2.0 mg/dL. Outpatient follow up with me can be arranged at discharge. (6) 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: (7) Anemia: Hemoglobin remains low. No evidence of persistent GI bleeding per patient and nurse report. Iron stores acceptable (Tsat 39). Epogen 57923 units provided today. Admission and Anticipated Discharge Date Admission Date: March 20, 2020 Subjective No acute events overnight. Angela feels well this morning. Appetite is good. Reports thirst. Continues to have frequent loose stool. No abdominal pain. No blood in stool. Overall, tolerating therapy well. Hopes to be discharged soon. Angela states that she is agreeable to rehab but would prefer to go home. Review of Systems Review of Systems: All systems reviewed & are unremarkable except as noted in HPI & below Physical Exam Constitutional: well developed and + frail appearing; no acute distress Eyes: no scleral abnormality and no corneal abnormality ENMT: Mouth: no oral mucosal abnormality and oral mucous membranes not dry Neck: normal visual inspection and trachea midline Respiratory: normal respiratory effort Auscultation: lungs clear to auscultation bilaterally Cardiovascular: Rate/Rhythm: regular rate Heart Sounds: normal S1 and normal S2 Extremities: + edema (trace dependent) Musculoskeletal: Extremities: no cyanosis and no clubbing Skin: normal turgor; no lesions Neurologic: Motor/Sensory: no tremor and no asterixis Psychiatric: Orientation: alert and oriented x 3 Results & Data ([facility]) Vital Signs (Past 12 Hours) Vital Signs Temp Pulse Pulse Resp BP Pulse Ox 03/28/20 07:15 36.8 C 63 18 165/71 H 93 03/27/20 23:50 36.8 C 65 16 155/66 H 94 Laboratory Results Laboratory Results - last 24 hr 03/27/20 03/27/20 03/27/20 09:13 09:13 09:13 WBC RBC Hgb Hct MCV MCH MCHC RDW Std Deviation RDW Coeff of Karina Plt Count 36 L MPV 10.0 Sodium 147 H Potassium 4.2 Chloride 125 H Carbon Dioxide 17 L Anion Gap 6.0 BUN 34 H Creatinine 1.80 H Est Cr Clr Drug Dosing 29.1 Est GFR ( Amer) 34.1 Est GFR (Non-Af Amer) 29.4 BUN/Creatinine Ratio 18.6 Glucose 122 H POC Glucose Calcium 8.5 Total Bilirubin 0.7 AST 32 ALT 17 Alkaline Phosphatase 145 H Ammonia 69.9 H Total Protein 6.1 L Albumin 2.1 L Globulin 4.0 Albumin/Globulin Ratio 0.5 L 03/27/20 03/27/20 03/27/20 11:38 17:09 20:35 WBC RBC Hgb Hct MCV MCH MCHC RDW Std Deviation RDW Coeff of Karina Plt Count MPV Sodium Potassium Chloride Carbon Dioxide Anion Gap BUN Creatinine Est Cr Clr Drug Dosing Est GFR ( Amer) Est GFR (Non-Af Amer) BUN/Creatinine Ratio Glucose POC Glucose 129 H 178 H 111 H Calcium Total Bilirubin AST ALT Alkaline Phosphatase Ammonia Total Protein Albumin Globulin Albumin/Globulin Ratio 03/28/20 03/28/20 03/28/20 05:21 05:21 05:21 WBC 2.23 L RBC 2.62 L Hgb 7.7 L Hct 23.9 L MCV 91.2 MCH 29.4 MCHC 32.2 RDW Std Deviation 53.3 H RDW Coeff of Karina 15.9 H Plt Count 33 L MPV 9.2 Sodium 147 H Potassium 3.9 Chloride 123 H Carbon Dioxide 17 L Anion Gap 7.0 BUN 30 H Creatinine 1.70 H Est Cr Clr Drug Dosing 30.8 Est GFR ( Amer) 36.6 Est GFR (Non-Af Amer) 31.5 BUN/Creatinine Ratio 17.8 Glucose 66 L POC Glucose Calcium 8.7 Total Bilirubin AST ALT Alkaline Phosphatase Ammonia 56.1 H Total Protein Albumin Globulin Albumin/Globulin Ratio 03/28/20 07:34 WBC RBC Hgb Hct MCV MCH MCHC RDW Std Deviation RDW Coeff of Karina Plt Count MPV Sodium Potassium Chloride Carbon Dioxide Anion Gap BUN Creatinine Est Cr Clr Drug Dosing Est GFR ( Amer) Est GFR (Non-Af Amer) BUN/Creatinine Ratio Glucose POC Glucose 83 Calcium Total Bilirubin AST ALT Alkaline Phosphatase Ammonia Total Protein Albumin Globulin Albumin/Globulin Ratio PG Care Time/CCT Total # of Minutes Spent Total Time Spent with Patient: Total time spent is greater than 50% in coordination of care (as documented) at patient's floor/unit and/or counseling patient: Coding Level of Care Code 52190 Subseq Hosp Care Lvl 3 Diagnoses Acute on chronic renal insufficiency N28.9; N18.9 Metabolic acidosis E87.2 Hypernatremia E87.0 Hepatic encephalopathy K72.90 Chronic kidney disease, stage III (moderate) N18.3 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 K75.81; K74.60 Anemia D64.9
[2020-03-28] MEDS: INSULIN ASPART 100 UNITS/ML 3 ML PEN SC SCH ×2 (09:43→13:10)
--- NOTE | 2020-03-28 16:04 | Discharge Summary ---
Date of Service March 28, 2020 Admission HPI Per Admitting Provider Yeimy is a 64 yo female with a history of Iron def anemia, MAE cirhorsus controlled with rifaximin, insulin dependent T2DM, GERD and HTN who reported on 03/20 for maroon colored vomit and black stool. Her iron supplementation normally colors her stool red tinged, however for the past day it has been black. She has had nausea and vomiting for the past four weeks (3x weekly) which turned maroon 03/20 (3 times). Denied abdominal pain, chest pain, cough, but reported + SOB. She was not hypoxic. She was drowsy and lethargic. The relayed most of the hx. She woke up to answer questions but was corrected by due to innacuracy In the ED an EKG ruled out acute ischemia, and CXR ruled out cardiopulm pathology. A CT pelvis showed cirrhosis, portal HTN, spenomegaly and varices. Grossly heme positive on rectal exam. H/H at this time was 6/18.4, down from her last known baseline of 7.5. INR was 1.2. She was found to have a HENRIQUE with a creatinine of 2.69, BUN was high at 85, she was hypernatremic with sodium of 147, potassium 5.7, and a non-anion gap metabolic acidosis consistent with volume depletion. Her ammonia level was significantly elevated at 208. Ammonia level went down to 117 today. She was started on a Protonix drip and octreotide drip and was started with a PRBC transfusion to be a total of 2 units in the ER. A EGD and colonoscopy was scheduled for today 03/21 (not yet done). Was intubated yesterday at 3pm for encephalopathy and to prepare for EGD. For encephalopathy, a central line was placed, and she was given lactulose. Principal Diagnosis Acute GI bleed, acute blood loss anemia, hepatic encephalopathy Discharge Exam Constitutional WD/WN, vitals as above Eyes + anicteric sclerae ENMT external ear and nose normal, oropharynx normal Neck trachea midline, no thyromegaly Respiratory normal respiratory effort, lungs clear to auscultation Cardiovascular RRR, no murmur, no edema Chest (Breasts) Chest: normal inspection of chest Gastrointestinal (Abdomen) Inspection/Auscultation: abdomen normal to inspection and normal bowel sounds; abdomen not distended Percussion/Palpation: abdomen soft and + hepatosplenomegaly; abdomen nontender Musculoskeletal Extremities: extremities normal to inspection; no cyanosis and no clubbing Skin no rashes, warm and dry Neurologic PERRL, EOMI, accommodation nl, no face palsy, no dysarthria not confused Speech / Cognition: normal speech Psychiatric A+Ox3, euthymic affect Lymphatic no lymphedema Discharge Data Allergies Allergy/AdvReac Type Severity Reaction Status Date / Time Sulfa (Sulfonamide Allergy Intermediate Rash Verified 03/20/20 14:49 Antibiotics) sulfamethoxazole Allergy Intermediate RASH Verified 03/20/20 14:49 trimethoprim Allergy Intermediate RASH Verified 03/20/20 14:49 Bactrim Allergy Unknown RASH Verified 08/17/14 08:01 amlodipine AdvReac Intermediate confusion Verified 03/20/20 11:43 adhesive tape AdvReac Mild ITCHING Verified 03/20/20 11:43 Consultations 03/20/20 11:54 ED Decision to Admit Stat 03/20/20 14:58 Consult Case Management - Discharge Planning Routine Consult Mainframe Consultant Routine 03/20/20 21:43 Consult Gastroenterology Routine 03/20/20 21:46 Consult Orthopedic Surgery Routine 03/22/20 09:04 Consult Nephrology Routine Procedures Performed Operation Date: 03/21/20 08:20 Actual Procedures p EGD Hemostasis - Irphan Heraclio Carmen Ordered Studies 03/20/20 10:27 CT abd pelvis wo con Stat Chest x-ray x2 KUB x-ray Right humerus x-ray Hospital Course (1) Acute GI bleeding: (1) Acute blood loss anemia: EGD on 03/21 with portal gastropathy, varices (no stigmata of bleeding) and gastric AVM, the AVM was clipped Hb stable at 7.7 on the day of discharge and BP stable after 3 units of PRBC and one unit platelets recommendations from GI: protonix BID, octreotide drip x 3 days (completed) Rocephin x 7 days was completed no further signs of bleeding throughout rest of hospital stay Also received EPO, repeat CBC within 1 week as an outpatient and then weekly after that until continues to improve -Continue on p.o. iron pills after discharge (2) GI bleed: based on EGD, likely source is AVM in stomach. GI says that there is low likelihood of recurrence of this bleed has varices but no stigmata of recent bleeding no signs of melena, H/H stable at 7.7, check CBC as an outpatient as above (3) Hyperkalemia: Secondary to acute kidney injury-resolved Potassium down to normal, improvement with volume administration and Diuril Follow-up with nephrology in 1 week (4) Hepatic encephalopathy: Ammonia level 208 on admission, per her , she was not taking Lactulose because she was having loose stools ammonia down to 60's, stable, encephalopathy is completely resolved. continue Rifaximin BID and Lactulose 30gm 3 times daily upon discharge- recommended goal 2-3 bowel movements daily (5) HENRIQUE (acute kidney injury): Creatinine up to 2.69, BUN up to 85, from baseline of creatinine 1.8-2.0 BUN likely also up due to GI bleeding Cr continues to be improving today, down to 1.7 on day of discharge. She is making plenty of urine consult nephrology, Dr. Galeano following, appreciate his input-he will follow-up with her in 1 week Urine Cr was elevated at 80, do not suspect this is HRS -Continue to hold Lasix and Aldactone upon discharge as she is euvolemic -Continue sodium bicarbonate 650 mg p.o. 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: As above, with portal hypertension octreotide drip for three days, completed resume maintenance therapy with diuretics once appropriate-not at this time continue Lactulose and Rifaximin follows with Terra JIMENEZ, will call for appt CHARLY after discharge MELD score 15 but also has elevated ammonia, low platelets, anemia, varices would benefit from referral to liver specialist if not already done (8) Klebsiella UTI: completed a 7 day course of antibiotics with Rocephin (9) Diabetic nephropathy associated with type 2 diabetes mellitus: Noted (10) Diabetes type 2, uncontrolled: Continue Lantus and NovoLog (11) Pancytopenia: Secondary to cirrhosis and acute on chronic anemia counts are low but stable, plts 33k on day of discharge -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 discharge (12) Restless leg syndrome Continue Requip (13) Obstructive sleep apnea: Wears 2 L nasal cannula at nighttime (14) Hypertension: Hypertensive currently resumed Coreg (15) Depression: Noted Not currently on medication for this (16) Pulmonary hypertension: Noted on most recent echocardiogram (17) Mitral regurgitation: Mild on most recent echocardiogram (18) Aortic stenosis: Trivial aortic stenosis on most recent echocardiogram (19) Vitamin D deficiency: Continue home vitamin D supplementation (20) Psoriatic arthritis: Not on medications for this (21) 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 twice daily (23) Chronic kidney disease, stage III (moderate): Follows with nephrology, baseline creatinine 1.8 as above -Avoid nephrotoxins -renally dose meds when appropriate -follow BMP, Cr is 1.7 on the day of discharge -Follow-up with nephrology within 1 week (24) DVT prophylaxis: SCDs only given GI bleeding (25) right proximal humerus fracture-continue sling, follow-up with orthopedics as an outpatient Disposition-stable for discharge to home with home health (2) Hepatic encephalopathy: Ammonia level 208 on admission, per her , she was not taking Lactulose because she was having loose stools ammonia down to 117 yesterday, up slightly to 130 today continue Rifaximin and Lactulose via OG tube if she is extubated then treat by PO, repeat ammonia in the morning (3) Hyperkalemia: (4) Anemia: (5) UTI (urinary tract infection): (6) Humerus shaft fracture: (7) 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: (8) Acute on chronic renal insufficiency: (9) Hyperammonemia: (10) Metabolic acidosis: (11) Metabolic acidosis: (12) Acute blood loss anemia: (13) GI bleed: (14) Diabetic nephropathy associated with type 2 diabetes mellitus: (15) Diabetes type 2, uncontrolled: (16) Diabetic peripheral neuropathy associated with type 2 diabetes mellitus: (17) Aortic stenosis: (18) Pancytopenia: (19) Nocturnal hypoxemia: (20) Hypertension: (21) Depression: (22) Pulmonary hypertension: (23) Vitamin D deficiency: (24) Dyslipidemia: (25) Psoriatic arthritis: (26) Polyclonal gammopathy: (27) GERD (gastroesophageal reflux disease): (28) Anxiety: (29) Chronic kidney disease, stage III (moderate): Total Time Total Time Spent Total Time Spent (In Minutes): Greater than 30 minutes Total Time Includes: Examination of the Patient, Discharge Planning, Medication Reconciliation and Communication With Other Providers (Nephrology) Discharge Plan Discharge Items Patient Disposition: Home - Home Health Services Reason For Visit: GI BLEED Discharge Diagnosis: GI Bleed, Acute blood loss anemia Condition on Discharge: Good Activity: Resume your previous activity Non-emergency contact: Primary Care Provider, Labor Relations Director and [employer] Call non-emergency contact if: you have any medication questions and your symptoms worsen Follow-up/Referrals: Rocío Alonso, [Primary Care Provider] - (Please follow up within 1-2 weeks.) Diet: Carb Consistent or DM2 and Low Sodium (2gm) Addtl Attending Provider Instructions: Please follow up with your PCP within 1-2 weeks. You should also schedule a follow up with Dr. Silver of [facility] Gastroenterology. Dr. Galeano of Nephrology will see you within 1 week and his office should reach out to you with the appointment date and time. Pending Studies at Discharge: No Stand-Alone Forms: My [facility] Medications and DC Order Prescriptions: New lactulose 20 gram/30 mL solution 45 ml PO TID 30 Days Qty: 4050 RF: 0 Continued folic acid 1 mg tablet 1 mg PO BID Qty: 60 RF: 2 (DME) pen needle, diabetic [BD Ultra-Fine Mini Pen Needle] 31 gauge x 3/16" needle See Rx Instructions .ROUTE .MEDSUPPLY Qty: 100 RF: 5 hydroxyzine HCl 10 mg tablet 10 mg PO QID PRN (Reason: anxiety) Qty: 30 RF: 3 carvedilol 6.25 mg tablet 6.25 mg PO BID Qty: 60 RF: 5 (DME) blood sugar diagnostic [OneTouch Ultra Blue Test Strip] Strip See Rx Instructions .ROUTE .MEDSUPPLY Qty: 200 RF: 5 Xifaxan 550 mg tablet 550 mg PO BID Qty: 180 RF: 1 ropinirole 2 mg tablet 2 mg PO HS Qty: 30 RF: 5 ferrous sulfate 325 mg (65 mg iron) tablet 325 mg PO BID RF: 0 Hold Instructions: Home Medication placed on hold at Doctor's office insulin aspart U-100 [Novolog Flexpen U-100 Insulin] 100 unit/mL (3 mL) insulin pen See Rx Instructions SQ TID Qty: 15 RF: 1 mupirocin 2 % ointment 1 appln TOP BID Qty: 22 RF: 0 nystatin 100,000 unit/gram cream 1 appln TOP BID Qty: 30 RF: 1 Forteo 20 mcg/dose - 600 mcg/2.4 mL pen injector 20 mcg SQ QAM RF: 0 acetaminophen [Tylenol Extra Strength] 500 mg Tablet 500 mg PO Q6H PRN (Reason: Pain) RF: 0 sodium bicarbonate 650 mg tablet 650 mg PO BID RF: 0 calcitriol 0.25 mcg capsule 0.25 mcg PO 3XWK RF: 0 mometasone 0.1 % cream 1 appln TOP QAM RF: 0 calcium carbonate-vitamin D3 [Oyster Shell Calcium-Vit D3] 500 mg(1,250mg) - 200 unit tablet 1 tab PO QAM RF: 0 Basaglar KwikPen U-100 Insulin 100 unit/mL (3 mL) insulin pen 15 units subcut HS RF: 0 Changed pantoprazole 40 mg tablet,delayed release (DR/EC) 40 mg PO BID Qty: 60 RF: 0 Discontinued furosemide 40 mg tablet 40 mg PO QAM RF: 0 spironolactone 25 mg tablet 25 mg PO QAM RF: 0 Discharge Orders: Discharge Order (Routine); Ordered 03/28/20 Ordered By: Mali Mejia Admission Data Admit Date/Time: 03/20/20 13:57 Attending Provider: Mali Mejia Admit Provider: Mali Mejia Primary Care Provider: Rocío Alonso Other Providers: [facility] ; Mali Mejia ; Myles Garnett ; Yolanda De La Fuente ; Sherman Morse Fahima ; [place] Other Interventions: Discharge Summary Assessment (RN) Last Done: 03/28/20 16:15 DC Date/Time DO NOT enter until pt leaves facility: 03/28/20 19:08 Coding Level of Care Code D/C Day Management >30 mins Diagnoses Acute GI bleeding K92.2 Hepatic encephalopathy K72.90 Hyperkalemia E87.5 Anemia D64.9 UTI (urinary tract infection) N39.0 Humerus shaft fracture S42.309A 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 K75.81; K74.60 Acute on chronic renal insufficiency N28.9; N18.9 Hyperammonemia E72.20 Metabolic acidosis E87.2 Metabolic acidosis E87.2 Acute blood loss anemia D62 GI bleed K92.2 Diabetic nephropathy associated with type 2 diabetes mellitus E11.21 Diabetes type 2, uncontrolled E11.65 Diabetic peripheral neuropathy associated with type 2 diabetes mellitus E11.42 Aortic stenosis I35.0 Pancytopenia D61.818 Nocturnal hypoxemia G47.34 Hypertension I10 Hypertension type: essential hypertension Depression F32.9 Pulmonary hypertension I27.20 Vitamin D deficiency E55.9 Dyslipidemia E78.5 Psoriatic arthritis L40.50 Polyclonal gammopathy D89.0 GERD (gastroesophageal reflux disease) K21.9 Anxiety F41.9 Chronic kidney disease, stage III (moderate) N18.3
== END 2020-03-28 19:08 | disposition home health service (06) | DRG 423 ==
LOC: ED 09:54 → SUATTDRO 13:57 → 1E 13:57 → 2S 03-25 14:43 → 2N 03-26 18:25 → 3N 03-27 13:51

== ENCOUNTER 2020-10-29 18:57 | Inpatient (IN) ==
[2020-10-29] MEDS ORDERED: cefTRIAXone SODIUM 1,000 MG/50 ML BAG IV STA (19:34)
--- NOTE | 2020-10-29 19:53 | XRay Report ---
XR chest 1V portable HISTORY: 65 years-old Female SEPSIS acute sepsis COMPARISON: Acute abdominal series radiographs 06/23/2020 TECHNIQUE: Portable AP view the chest FINDINGS: Cardiac silhouette is enlarged. No pneumothorax, pleural effusion, airspace consolidation or overt pu lmonary edema. Degenerative changes of the spine and left shoulder. Chronic postsurgical changes of t he proximal right humerus. IMPRESSION: No acute process. ACT 112: Negative or not required by law. The above report was generated using voice recognition software. It may contain grammatical, syntax o r spelling errors. Electronically signed by: Ray Samson M.D. 10/29/2020 7:51 PM
--- NOTE | 2020-10-29 19:57 | Emergency Department Note ---
History of Present Illness General Chief complaint: Nausea Stated complaint: NAUSEA, CONFUSION Time Seen by Provider: 10/29/20 19:33 History of Present Illness Provider complaint: Altered mental status nausea Onset (ago): day(s) 1 Associated symptoms: + confusion, + malaise and + nausea/vomiting (No vomiting); no chest pain, no fever/chills and no headaches 65-year-old female with history of CKD, hyperkalemia, and liver failure presents emergency department for nausea and altered mental status. reports that over the last few days patient has been increasingly confused. She started reporting nausea today. No vomiting. No hematemesis coffee-ground emesis or bilious vomiting. Patient denies any falls. No chest pain or difficulty breathing. No loss of taste or smell. Patient states she recently saw her small equipment operator who took her off spironolactone due to her kidney function. Patient also reports she is sleeping on a antibiotic for UTI. She states she took her first dose of the antibiotic yesterday. Home Medications Medication Instructions Recorded Confirmed Type acetaminophen [Tylenol Extra 500 mg PO Q6H PRN 10/04/19 10/29/20 History Strength] teriparatide 20 mcg/dose (600 20 mcg SQ QAM 02/03/20 10/29/20 History mcg/2.4 mL) subcutaneous pen injector mometasone 1 appln TOP QAM 03/20/20 10/29/20 History folic acid 1 mg tablet 1 mg PO BID #180 tab 04/28/20 10/29/20 Rx insulin aspart U-100 100 unit/mL See Rx Instructions SQ TID ml 06/08/20 10/29/20 History (3 mL) subcutaneous pen insulin glargine 100 unit/mL (3 15 unit SUBCUT HS #1 box 06/08/20 10/29/20 Rx mL) subcutaneous pen calcium carbonate 500 mg (1,250 1 tab PO QAM #90 tab 07/08/20 10/29/20 Rx mg)-vitamin D3 200 unit tablet clotrimazole-betamethasone 1 1 applic TOPICAL BID PRN g 08/26/20 10/29/20 History %-0.05 % topical cream lactulose 20 gram/30 mL oral 45 ml PO BID ml 08/26/20 10/29/20 History solution hydroxyzine HCl 10 mg tablet 10 mg PO QID PRN #30 tab 08/31/20 10/29/20 Rx carvedilol 12.5 mg tablet 12.5 mg PO BID #180 tab 09/09/20 10/29/20 Rx pantoprazole 40 mg tablet,delayed 40 mg PO BID #180 tab 09/09/20 10/29/20 Rx release calcitriol 0.25 mcg PO 3XWK 10/24/20 10/29/20 History rifaximin 550 mg tablet 550 mg PO BID 10/24/20 10/29/20 History ropinirole 1 mg PO .QAFTERNOON 10/24/20 10/29/20 History ropinirole 2 mg PO HS 10/24/20 10/29/20 History sodium bicarbonate 650 mg tablet 1,300 mg PO BID #120 tab 10/26/20 10/29/20 Rx cephalexin 250 mg capsule 250 mg PO BID #10 cap 10/27/20 10/29/20 Rx furosemide 20 mg tablet 20 mg PO DAILY tab 10/27/20 10/29/20 History Allergies Allergy/AdvReac Type Severity Reaction Status Date / Time sulfamethoxazole Allergy Intermediate RASH Verified 10/29/20 20:10 trimethoprim Allergy Intermediate RASH Verified 10/29/20 20:10 amlodipine AdvReac Intermediate confusion Verified 10/29/20 20:10 adhesive tape AdvReac Mild ITCHING Verified 10/29/20 20:10 Past Med/Surg History Medical History Anemia of chronic disease Anxiety Aortic stenosis Chronic kidney disease, stage III (moderate) Diabetic nephropathy associated with type 2 diabetes mellitus Diabetic peripheral neuropathy associated with type 2 diabetes mellitus Diverticular disease Duodenal ulcer Dysesthesia Esophageal varices Gastric ulcer GERD (gastroesophageal reflux disease) History of GI bleed History of recent blood transfusion (~06/2019) Hyperlipidemia Hypertension Hypertension Iron deficiency anemia Liver cirrhosis 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 Shivani Carmen- EGD History of anesthesia reaction difficult to wake after bladder tack sx History of bilateral cataract extraction History of bladder surgery bladder tack History of colonoscopy History of esophagogastroduodenoscopy (EGD) multiple---last 06/22/19 [place] [facility] [place] of hemiarthroplasty of right shoulder January 2018 post fracture History of repair of right rotator cuff History of revision of total shoulder arthroplasty (12/29/18) Right shoulder, 12/29/18 History of shoulder surgery (~11/2019) Had right total arthroplasty removed 11/2019 History of tooth extraction all teeth S/P ORIF (open reduction internal fixation) fracture R shoulder, January 2018 S/P shoulder surgery (11/18/19) R TSA removal, I&D, placement of abx spacer Family History Grandmother (Paternal) Family history of diabetes mellitus Father COPD (chronic obstructive pulmonary disease) Mother Hypertension Family/Other Cancer Sister Ovarian cancer Denies family history of Prostate cancer Myocardial infarction Breast cancer Colorectal cancer Social History Smoking Status: Former smoker Tobacco Type: Cigarettes Second Hand Exposure: No; Hx Alcohol Use: No Hx Substance Use: No Preferred Language: Cymro Communication Ability: Effective Visual Impairment: Limited Hearing Ability: Normal Fire Management Officer Required: No Beliefs That Will Affect Care: None marital status: Current Living Situation: Spouse Current Living Situation Comment: Lives with and son current occupational status: retired Feels Safe at Home: Yes Childhood Exposure to Second-Hand Smoke: Yes Diet Comment: regular Dental Care, Regularly: No Physical Activity Frequency: Does not Exercise Seatbelt Use: always Sunscreen Use: Yes Assistive Devices: Walker Review of Systems A total of 10 systems reviewed and were otherwise negative Physical Exam Vital Signs Vital Signs - 24 hr 10/29/20 17:21 10/29/20 19:01 10/29/20 19:59 Temperature 36.1 C L Temperature Source Temporal Artery Scan Pulse Rate 67 67 67 Pulse Rate [Apical] Pulse Rate from SpO2 Sensor 71 Respiratory Rate 21 18 19 Respiratory Effort / Characteristics Non-Labored Spontaneous Respiratory Depth Normal Respiratory Pattern Regular Blood Pressure 133/64 158/63 H Blood Pressure [Right Arm] Blood Pressure Mean 87 94 Blood Pressure Mean [Right Arm] Pulse Oximetry 97 94 Oxygen Delivery Method Room Air Sepsis Recent Fever Within 48 Hours No Sepsis New/Unexplained Change in Mental Status N/A Sepsis Action Taken by Nursing No Action Required 10/29/20 20:00 10/29/20 20:01 10/29/20 20:02 Temperature Temperature Source Pulse Rate 66 67 Pulse Rate [Apical] 65 Pulse Rate from SpO2 Sensor 67 Respiratory Rate 21 20 20 Respiratory Effort / Characteristics Non-Labored Spontaneous Respiratory Depth Normal Respiratory Pattern Regular Blood Pressure Blood Pressure [Right Arm] 133/64 Blood Pressure Mean Blood Pressure Mean [Right Arm] 87 Pulse Oximetry 95 95 94 Oxygen Delivery Method Room Air Room Air Sepsis Recent Fever Within 48 Hours Sepsis New/Unexplained Change in Mental Status Sepsis Action Taken by Nursing 10/29/20 20:14 10/29/20 20:30 10/29/20 20:31 Temperature Temperature Source Pulse Rate 66 63 63 Pulse Rate [Apical] Pulse Rate from SpO2 Sensor 65 63 64 Respiratory Rate 16 18 15 Respiratory Effort / Characteristics Respiratory Depth Respiratory Pattern Blood Pressure 152/80 H 148/85 H Blood Pressure [Right Arm] Blood Pressure Mean 104 106 Blood Pressure Mean [Right Arm] Pulse Oximetry 98 98 98 Oxygen Delivery Method Sepsis Recent Fever Within 48 Hours Sepsis New/Unexplained Change in Mental Status Sepsis Action Taken by Nursing 10/29/20 21:00 10/29/20 21:01 10/29/20 21:30 Temperature Temperature Source Pulse Rate 64 64 63 Pulse Rate [Apical] Pulse Rate from SpO2 Sensor 64 64 64 Respiratory Rate 13 17 18 Respiratory Effort / Characteristics Respiratory Depth Respiratory Pattern Blood Pressure 156/85 H 181/85 H Blood Pressure [Right Arm] Blood Pressure Mean 108 117 Blood Pressure Mean [Right Arm] Pulse Oximetry 99 98 97 Oxygen Delivery Method Sepsis Recent Fever Within 48 Hours Sepsis New/Unexplained Change in Mental Status Sepsis Action Taken by Nursing 10/29/20 21:31 10/29/20 22:00 10/29/20 22:01 Temperature Temperature Source Pulse Rate 64 61 62 Pulse Rate [Apical] Pulse Rate from SpO2 Sensor 64 61 62 Respiratory Rate 21 16 20 Respiratory Effort / Characteristics Respiratory Depth Respiratory Pattern Blood Pressure 162/70 H Blood Pressure [Right Arm] Blood Pressure Mean 100 Blood Pressure Mean [Right Arm] Pulse Oximetry 97 97 97 Oxygen Delivery Method Sepsis Recent Fever Within 48 Hours Sepsis New/Unexplained Change in Mental Status Sepsis Action Taken by Nursing 10/29/20 22:30 10/29/20 22:44 Temperature Temperature Source Pulse Rate 60 63 Pulse Rate [Apical] Pulse Rate from SpO2 Sensor 60 63 Respiratory Rate 18 Respiratory Effort / Characteristics Respiratory Depth Respiratory Pattern Blood Pressure 150/70 H Blood Pressure [Right Arm] Blood Pressure Mean 96 Blood Pressure Mean [Right Arm] Pulse Oximetry 97 99 Oxygen Delivery Method Sepsis Recent Fever Within 48 Hours Sepsis New/Unexplained Change in Mental Status Sepsis Action Taken by Nursing Physical Exam GENERAL: She is oriented to person, place, and time. She appears well-developed and well-nourished. She does not appear distressed. HENT: Exam performed. -Head: Normocephalic and atraumatic. -Right Ear: External ear normal. No mastoid tenderness. -Left Ear: External ear normal. No mastoid tenderness. -Mouth/Throat: The oropharynx is clear and moist. No trismus in the jaw. No dental abscesses or uvula swelling. No oropharyngeal exudate or tonsillar abscesses. EYES: Conjunctivae and EOM are normal. Pupils are equal, round, and reactive to light. Right eye exhibits no discharge. Left eye exhibits no discharge. No scleral icterus. NECK: Normal range of motion. Neck supple. No JVD present. No spinous process tenderness present. No carotid bruit present. No rigidity. No tracheal deviation and normal range of motion present. No Brudzinski's sign and no Kernig's sign noted. CV: Normal rate, regular rhythm, normal heart sounds and intact distal pulses. There is no peripheral edema. Palpable radial pulses bue. PULM/CHEST: Effort normal and breath sounds normal. No respiratory distress. No stridor. She has no wheezes. She has no rales. -Chest Wall: She exhibits no tenderness. ABD: The abdomen is soft. Bowel sounds are normal. She has no distension. No mass is present. There is no tenderness. There is no rebound, no guarding, no Quinones's sign and no tenderness at McBurney's point. Rovsig negative MUSC/SKEL: Normal range of motion. There is no peripheral edema, tenderness or deformity. LYMPH: No cervical adenopathy. NEURO: She is alert and oriented to person, place, and time. She has normal str ength. No cranial nerve deficit or sensory deficit. Coordination and gait normal. GCS eye subscore is 4. GCS verbal subscore is 5. GCS motor subscore is 6. Cerebellar tests wnl. SKIN: Skin is warm and dry. She is not diaphoretic. PSYCH: She has a normal mood and affect. Behavior is normal. Judgment and thought content normal. Course Course 1932: The patient was evaluated in room A9. A complete history and physical exam was performed Cardiac monitoring: An order was placed for continuous cardiac monitoring. The monitor shows a rate of 70 with sinus rhythm EMR reviewed. Patient was seen in the emergency department on October 24, 2020, 5 days ago. She was seen at that time for concerns of hyperkalemia and elevated creatinine. Her creatinine at that time was 3. Patient was discharged after speak with patient's small equipment operator. Patient did follow-up with nephrology on October 26, 2020, 3 days ago and was taken off of her spironolactone. There was discussion about diuretic usage however she was post see the retail general manager before decision was made about her diuretics. Patient had a urinalysis and culture done on October 26, 2020 which grew out gamma strep and Morganella morganii. Patient be treated with Rocephin 1 g IV piggyback empirically at this time. 2044: Vital signs stable. Labs show a leukopenia of 2.47, at patient's baseline. Potassium of 5.5. Creatinine 3.21 slightly elevated from his previous creatinine of 3.06. Ammonia is elevated at 185.2. Patient ordered lactulose and calcium gluconate [address] imaging then we will plan on admitting the patient to the hospital service. 2139: CT of the head within normal limits. Will plan on admitting the patient to the [facility] hospitalist Dr. Vazquez notified. Administered Medications Discontinued Medications Ceftriaxone Sodium (Rocephin) 1,000 mg in 50 mls @ 100 mls/hr IV NOW STA Stop: 10/29/20 20:03 Last Infusion: 10/29/20 20:43 Dose: 0 mls/hr Documented by: [id number] Admin: 10/29/20 20:07 Dose: 100 mls/hr Documented by: [id number] Calcium Gluconate 1,000 mg/ (Sodium Chloride) 60 mls @ 240 mls/hr IV NOW STA Stop: 10/29/20 20:57 Last Infusion: 10/29/20 21:45 Dose: 0 mls/hr Documented by: [id number] Admin: 10/29/20 21:16 Dose: 240 mls/hr Documented by: [id number] Lactulose (Lactulose Syrup 30 Gm/45 Ml Udp) 30 gm PO NOW STA Stop: 10/29/20 20:44 Last Admin: 10/29/20 21:16 Dose: 30 gm Documented by: [id number] Medical Decision Making Laboratory Data Result diagrams: 10/29/20 20:00 10/29/20 20:00 Lab Results 10/29/20 10/29/20 10/29/20 Range/Units 20:00 20:00 20:00 WBC 2.47 L (4.8-10.8) K/uL RBC 3.47 L (4.2-5.4) M/uL Hgb 9.8 L (12.0-16.0) g/dL Hct 30.4 L (37-47) % MCV 87.6 (80-100) fL MCH 28.2 (25-34) pg MCHC 32.2 (32-36) g/dL RDW Std Deviation 51.3 H (36.4-46.3) fL RDW Coeff of Karina 16.1 H (11.5-14.5) % Plt Count 34 L (130-400) K/uL MPV 10.5 H (7.4-10.4) fL Immature Gran % (Auto) 0.0 % Neut % (Auto) 68.9 % Lymph % (Auto) 19.8 % Montague % (Auto) 7.3 % Eos % (Auto) 3.6 % Baso % (Auto) 0.4 % Neut # (Auto) 1.70 (1.4-6.5) K/uL Lymph # (Auto) 0.49 L (1.2-3.4) K/uL Montague # (Auto) 0.18 (0.11-0.59) K/uL Eos # (Auto) 0.09 (0-0.5) K/uL Baso # (Auto) 0.01 (0-0.2) K/uL Immature Gran # (Auto) 0.00 (0.00-0.02) K/uL Platelet Estimate Decreased L (Normal) PT 12.7 H (9.0-12.0) Seconds INR 1.3 H (0.9-1.1) APTT 31.1 H (21.0-31.0) Seconds PTT Ratio 1.2 Sodium (136-145) mmol/L Potassium (3.5-5.1) mmol/L Chloride (98-107) mmol/L Carbon Dioxide (21-32) mmol/L Anion Gap (3-11) BUN (7-18) mg/dl Creatinine (0.6-1.2) mg/dl Est Cr Clr Drug Dosing ml/min Est GFR ( Amer) Est GFR (Non-Af Amer) BUN/Creatinine Ratio (10-20) Glucose (70-99) mg/dl Lactate (0.4-2.0) mmol/L Calcium (8.5-10.1) mg/dl Magnesium (1.8-2.4) mg/dl Total Bilirubin (0.2-1) mg/dl AST (15-37) U/L ALT (12-78) U/L Alkaline Phosphatase (45-117) U/L Ammonia 185.2 H (11-32) umol/L Troponin I (0-0.045) ng/ml Total Protein (6.4-8.2) gm/dl Albumin (3.4-5.0) gm/dl Globulin (2.5-4.0) gm/dl Albumin/Globulin Ratio (0.9-2) Procalcitonin (0-0.5) ng/ml COVID-19 Eval Order SARS-CoV-2, RNA, NAAT (NEGATIVE) 10/29/20 10/29/20 10/29/20 Range/Units 20:00 20:00 20:00 WBC (4.8-10.8) K/uL RBC (4.2-5.4) M/uL Hgb (12.0-16.0) g/dL Hct (37-47) % MCV (80-100) fL MCH (25-34) pg MCHC (32-36) g/dL RDW Std Deviation (36.4-46.3) fL RDW Coeff of Karina (11.5-14.5) % Plt Count (130-400) K/uL MPV (7.4-10.4) fL Immature Gran % (Auto) % Neut % (Auto) % Lymph % (Auto) % Montague % (Auto) % Eos % (Auto) % Baso % (Auto) % Neut # (Auto) (1.4-6.5) K/uL Lymph # (Auto) (1.2-3.4) K/uL Montague # (Auto) (0.11-0.59) K/uL Eos # (Auto) (0-0.5) K/uL Baso # (Auto) (0-0.2) K/uL Immature Gran # (Auto) (0.00-0.02) K/uL Platelet Estimate (Normal) PT (9.0-12.0) Seconds INR (0.9-1.1) APTT (21.0-31.0) Seconds PTT Ratio Sodium 145 (136-145) mmol/L Potassium 5.5 H (3.5-5.1) mmol/L Chloride 122 H (98-107) mmol/L Carbon Dioxide 17 L (21-32) mmol/L Anion Gap 6.0 (3-11) BUN 73 H (7-18) mg/dl Creatinine 3.21 H (0.6-1.2) mg/dl Est Cr Clr Drug Dosing 15.9 ml/min Est GFR ( Amer) 16.8 Est GFR (Non-Af Amer) 14.5 BUN/Creatinine Ratio 22.7 H (10-20) Glucose 209 H (70-99) mg/dl Lactate 1.6 (0.4-2.0) mmol/L Calcium 9.1 (8.5-10.1) mg/dl Magnesium 2.5 H (1.8-2.4) mg/dl Total Bilirubin 0.9 (0.2-1) mg/dl AST 25 (15-37) U/L ALT 27 (12-78) U/L Alkaline Phosphatase 162 H (45-117) U/L Ammonia (11-32) umol/L Troponin I < 0.015 (0-0.045) ng/ml Total Protein 7.9 (6.4-8.2) gm/dl Albumin 2.9 L (3.4-5.0) gm/dl Globulin 5.0 H (2.5-4.0) gm/dl Albumin/Globulin Ratio 0.6 L (0.9-2) Procalcitonin 0.24 (0-0.5) ng/ml COVID-19 Eval Order SARS-CoV-2, RNA, NAAT (NEGATIVE) 10/29/20 10/29/20 Range/Units 22:47 22:47 WBC (4.8-10.8) K/uL RBC (4.2-5.4) M/uL Hgb (12.0-16.0) g/dL Hct (37-47) % MCV (80-100) fL MCH (25-34) pg MCHC (32-36) g/dL RDW Std Deviation (36.4-46.3) fL RDW Coeff of Karina (11.5-14.5) % Plt Count (130-400) K/uL MPV (7.4-10.4) fL Immature Gran % (Auto) % Neut % (Auto) % Lymph % (Auto) % Montague % (Auto) % Eos % (Auto) % Baso % (Auto) % Neut # (Auto) (1.4-6.5) K/uL Lymph # (Auto) (1.2-3.4) K/uL Montague # (Auto) (0.11-0.59) K/uL Eos # (Auto) (0-0.5) K/uL Baso # (Auto) (0-0.2) K/uL Immature Gran # (Auto) (0.00-0.02) K/uL Platelet Estimate (Normal) PT (9.0-12.0) Seconds INR (0.9-1.1) APTT (21.0-31.0) Seconds PTT Ratio Sodium (136-145) mmol/L Potassium (3.5-5.1) mmol/L Chloride (98-107) mmol/L Carbon Dioxide (21-32) mmol/L Anion Gap (3-11) BUN (7-18) mg/dl Creatinine (0.6-1.2) mg/dl Est Cr Clr Drug Dosing ml/min Est GFR ( Amer) Est GFR (Non-Af Amer) BUN/Creatinine Ratio (10-20) Glucose (70-99) mg/dl Lactate (0.4-2.0) mmol/L Calcium (8.5-10.1) mg/dl Magnesium (1.8-2.4) mg/dl Total Bilirubin (0.2-1) mg/dl AST (15-37) U/L ALT (12-78) U/L Alkaline Phosphatase (45-117) U/L Ammonia (11-32) umol/L Troponin I (0-0.045) ng/ml Total Protein (6.4-8.2) gm/dl Albumin (3.4-5.0) gm/dl Globulin (2.5-4.0) gm/dl Albumin/Globulin Ratio (0.9-2) Procalcitonin (0-0.5) ng/ml COVID-19 Eval Order Covid19 [facility] SARS-CoV-2, RNA, NAAT NEGATIVE (NEGATIVE) Imaging Data Radiologist's Impression: XR chest 1V portable HISTORY: 65 years-old Female SEPSIS acute sepsis COMPARISON: Acute abdominal series radiographs 06/23/2020 TECHNIQUE: Portable AP view the chest FINDINGS: Cardiac silhouette is enlarged. No pneumothorax, pleural effusion, airspace consolidation or overt pulmonary edema. Degenerative changes of the spine and left shoulder. Chronic postsurgical changes of the proximal right humerus. IMPRESSION: No acute process. ACT 112: Negative or not required by law. The above report was generated using voice recognition software. It may contain grammatical, syntax or spelling errors. Electronically signed by: Ray Samson M.D. 10/29/2020 7:51 PM Dictated: 10/29/201949Transcribed: 10/29/201949 CT head/brain wo con CLINICAL HISTORY: 65 years-old Female with ams. Acutely altered mental status TECHNIQUE: Multiple axial CT images of the head were obtained without contrast. A dose lowering technique was utilized adhering to the principles of ALARA. CT DOSE: 1074.96 mGy.cm COMPARISON: Head CT 10/10/2012. FINDINGS: No acute intracranial hemorrhage, midline shift, intracranial mass, hydrocephalus, territorial ischemia or abnormal extra-axial collection. Moderate white matter hypodensities are new from comparison. Cerebral vascular calcifications. Mild age-related involutional changes. The calvarium is intact. Prior bilateral lens replacement. The paranasal sinuses, mastoid air cells, and middle ear cavities are clear. IMPRESSION: 1. No acute intracranial abnormality. 2. Moderate white matter hypodensities suggestive of chronic microvascular ischemic disease. ACT 112: Negative or not required by law. The above report was generated using voice recognition software. It may contain grammatical, syntax or spelling errors. Electronically signed by: Ray Samson M.D. 10/29/2020 9:00 PM Dictated: 10/29/202055 Transcribed: 10/29/202055 ECG Data Indication: + altered mental status Rate (beats per minute): 68 Rhythm: + normal sinus ECG Intervals/blocks: + Normal QRS, + Normal CO and + Normal QT-c ECG ST segments: + Normal ST segments [facility] Narrative 193: The patient was evaluated in room A9. A complete history and physical exam was performed Cardiac monitoring: An order was placed for continuous cardiac monitoring. The monitor shows a rate of 70 with sinus rhythm EMR reviewed. Patient was seen in the emergency department on October 24, 2020, 5 days ago. She was seen at that time for concerns of hyperkalemia and elevated creatinine. Her creatinine at that time was 3. Patient was discharged after speak with patient's small equipment operator. Patient did follow-up with nephrology on October 26, 2020, 3 days ago and was taken off of her spironolactone. There was discussion about diuretic usage however she was post see the retail general manager before decision was made about her diuretics. Patient had a urinalysis and culture done on October 26, 2020 which grew out gamma strep and Morganella morganii. Patient be treated with Rocephin 1 g IV piggyback empirically at this time. 2044: Vital signs stable. Labs show a leukopenia of 2.47, at patient's baseline. Potassium of 5.5. Creatinine 3.21 slightly elevated from his previous creatinine of 3.06. Ammonia is elevated at 185.2. Patient ordered lactulose and calcium gluconate [address] imaging then we will plan on admitting the patient to the hospital service. 2139: CT of the head within normal limits. Will plan on admitting the patient to the [facility] hospitalist Dr. Vazquez notified. Impression & Plan Acute metabolic encephalopathy, Hyperkalemia Discharge Plan Visit Data Chief Complaint: Nausea Stated Complaint: NAUSEA, CONFUSION ED Provider: Mahendra Garcia Discharge Problem: Acute metabolic encephalopathy, Hyperkalemia Patient Disposition: Admitted As Inpatient Forms Stand Alone Forms: My [facility] [employer] Prescriptions Prescriptions: No Action folic acid 1 mg tablet 1 mg PO BID Qty: 180 RF: 1 calcium carbonate-vitamin D3 [Oyster Shell Calcium-Vit D3] 500 mg(1,250mg) - 200 unit tablet 1 tab PO QAM Qty: 90 RF: 1 Hold Instructions: Home Medication placed on hold at Doctor's office hydroxyzine HCl 10 mg tablet 10 mg PO QID PRN (Reason: anxiety) Qty: 30 RF: 3 pantoprazole 40 mg tablet,delayed release (DR/EC) 40 mg PO BID Qty: 180 RF: 3 carvedilol 12.5 mg tablet 12.5 mg PO BID Qty: 180 RF: 1 cephalexin 250 mg capsule 250 mg PO BID Qty: 10 RF: 0 sodium bicarbonate 650 mg tablet 1,300 mg PO BID Qty: 120 RF: 3 insulin aspart U-100 [Novolog Flexpen U-100 Insulin] 100 unit/mL (3 mL) insulin pen See Rx Instructions SQ TID RF: 0 Basaglar KwikPen U-100 Insulin 100 unit/mL (3 mL) insulin pen 15 unit subcut HS Qty: 1 RF: 5 clotrimazole-betamethasone 1-0.05 % cream 1 applic topical BID PRN (Reason: Skin Irritation) RF: 0 lactulose 20 gram/30 mL solution 45 ml PO BID RF: 0 Xifaxan 550 mg tablet 550 mg PO BID RF: 0 Forteo 20 mcg/dose - 600 mcg/2.4 mL pen injector 20 mcg SQ QAM RF: 0 furosemide 20 mg tablet 20 mg PO DAILY RF: 0 acetaminophen [Tylenol Extra Strength] 500 mg Tablet 500 mg PO Q6H PRN (Reason: Pain) RF: 0 mometasone 0.1 % cream 1 appln TOP QAM RF: 0 calcitriol 0.25 mcg capsule 0.25 mcg PO 3XWK RF: 0 Hold Instructions: Home Medication placed on hold at Doctor's office ropinirole 2 mg tablet 1 mg PO .QAFTERNOON RF: 0 ropinirole 2 mg Tablet 2 mg PO HS RF: 0 Referrals Referrals: Rocío Alonso DO [Primary Care Provider] -
[2020-10-29 20:14] LABS: Hematocrit (blood only) 30.4 % (37-47); Hemoglobin 9.8 g/dL (12.0-16.0); Mean Corpuscular Hemoglobin 28.2 pg (25-34); Mean Corpuscular Hgb Conc 32.2 g/dL (32-36); Mean Corpuscular Volume 87.6 fL (80-100); RDW Coefficient of Variation 16.1 % (11.5-14.5); RDW Standard Deviation 51.3 fL (36.4-46.3); Red Blood Count 3.47 M/uL (4.2-5.4); White Blood Count 2.47 K/uL (4.8-10.8)
[2020-10-29 20:29] LABS: INR 1.3 (0.9-1.1); Partial Thromboplastin Ratio 1.2; Partial Thromboplastin Time 31.1 Seconds (21.0-31.0); Prothrombin Time 12.7 Seconds (9.0-12.0)
[2020-10-29 20:32] LABS: Alanine Aminotransferase 27 U/L (12-78); Albumin Level 2.9 gm/dl (3.4-5.0); Aspartate Aminotransferase 25 U/L (15-37); BUN Creatinine Ratio 22.7 (10-20); Blood Urea Nitrogen 73 mg/dl (7-18); Calcium 9.1 mg/dl (8.5-10.1); Carbon Dioxide 17 mmol/L (21-32); Chloride 122 mmol/L (98-107); Creatinine Clr Calc Pharmacy 15.9 ml/min; Est GFR (African American) 16.8; Est GFR (Non-African American) 14.5; Glucose 209 mg/dl (70-99); Magnesium 2.5 mg/dl (1.8-2.4); Potassium 5.5 mmol/L (3.5-5.1); Sodium 145 mmol/L (136-145)
[2020-10-29 20:36] LABS: Mean Platelet Volume 10.5 fL (7.4-10.4); Platelet Count 34 K/uL (130-400)
[2020-10-29 20:37] LABS: Albumin Globulin Ratio 0.6 (0.9-2); Alkaline Phosphatase 162 U/L (45-117); Bilirubin,Total 0.9 mg/dl (0.2-1); Total Protein 7.9 gm/dl (6.4-8.2); Troponin I < 0.015 ng/ml (0-0.045)
[2020-10-29 20:38] LABS: Basophils # (auto) 0.01 K/uL (0-0.2); Basophils % (auto) 0.4 %; Eosinophils # (auto) 0.09 K/uL (0-0.5); Eosinophils % (auto) 3.6 %; Lymphocytes # (auto) 0.49 K/uL (1.2-3.4); Lymphocytes % (auto) 19.8 %; Monocytes # (auto) 0.18 K/uL (0.11-0.59); Monocytes % (auto) 7.3 %; Neutrophils % (auto) 68.9 %; Platelet Estimate Decreased (Normal)
[2020-10-29] MEDS ORDERED: CALCIUM GLUCONATE 10% 1,000 MG in SODIUM CHLORIDE 0.9% 50 ML IV STA (20:43)
[2020-10-29] MEDS ORDERED: LACTULOSE SYRUP 30 GM/45 ML UDP PO STA (20:43)
--- NOTE | 2020-10-29 21:02 | CT Scan Report ---
CT head/brain wo con CLINICAL HISTORY: 65 years-old Female with ams. Acutely altered mental status TECHNIQUE: Multiple axial CT images of the head were obtained without contrast. A dose lowering tech nique was utilized adhering to the principles of ALARA. CT DOSE: 1074.96 mGy.cm COMPARISON: Head CT 10/10/2012. FINDINGS: No acute intracranial hemorrhage, midline shift, intracranial mass, hydrocephalus, territorial ischem ia or abnormal extra-axial collection. Moderate white matter hypodensities are new from comparison. C erebral vascular calcifications. Mild age-related involutional changes. The calvarium is intact. Prior bilateral lens replacement. The paranasal sinuses, mastoid air cells, and middle ear cavities are clear. IMPRESSION: 1. No acute intracranial abnormality. 2. Moderate white matter hypodensities suggestive of chronic microvascular ischemic disease. ACT 112: Negative or not required by law. The above report was generated using voice recognition software. It may contain grammatical, syntax o r spelling errors. Electronically signed by: Ray Samson M.D. 10/29/2020 9:00 PM
--- NOTE | 2020-10-29 22:31 | History & Physical Report ---
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 Metabolic encephalopathy: -Likely secondary to hyperammonemia in the setting of known history of cirrhosis with MAE, and recent intolerance/questionable completeness of oral home regimen -Child Miller of 8, meld 21; according to recent hepatology notes patient not in strong enough condition for candidacy for transplant at this time -Ammonia on admission of 185.2 -Continue rifaximin 550 twice daily, lactulose 20 twice daily (goal of 3-4 bowel movements daily) -Continue furosemide; holding spironolactone -Recheck ammonia in a.m. and as needed UTI: -UA from outpatient demonstrating trace protein, 2+ urine, 2+ bacteria; with urine culture demonstrating gamma strep and Morganella -Discontinue Keflex, in favor of ceftriaxone daily at this time Thrombocytopenia: -Platelets 34 on admission -Appears that baseline levels over the last year have set between 30 and 50 Type 2 diabetes: -Patient utilizes Dexcom at home -BSG is ACHS, verification with Dexcom -Carb consistent diet -Utilization of sliding scale insulin with glargine while inpatient CKD: -Known history of CKD following with nephrology most recently seen on 10/26 -Creatinine elevated on admission to 3.2, GFR 14.5 -Continue to hold spironolactone, and calcium supplementation Restless leg syndrome: -Continue home Requip regimen Diet: Carb consistent CODE STATUS: Full code DVT prophylaxis: Deferred at this time in the setting of INR elevation (2) UTI (urinary tract infection): (3) DM type 2 (diabetes mellitus, type 2): (4) Hyperlipidemia: (5) Restless leg syndrome: (6) Acute hyperkalemia: (7) Hyperkalemia: History of Present Illness Chief Complaint: Increasing confusion Primary Care Provider: Rocío Alonso DO Angela Sherman is a 65-year-old female with PMH significant for CKD, cirrhosis likely due to MAE, ascites, restless leg syndrome, type 2 diabetes, hyperlipidemia; presented to the ER with her earlier today for concerns of increasing confusion, and forgetfulness over the last several days. stated that patient had been feeling often forgetful more so than normal over the last several days since starting on antibiotics for urinary tract infection. Earlier this week had a urinalysis that demonstrated some bacteria abnormalities and was subsequently started on Keflex. Even during that time noted that her speech was more slowed than normal and she was having a harder time remembering even simple conversations from earlier in the day. Patient neurologist that she does feel off, and feels like this is similar to previous times when she is had to have her ammonia levels checked. Has been tolerating some of her oral meds, however with feelings of nausea and intermittent vomiting patient has not consistently been able to get her medic ations down and keep them down over the last week. As discontinued and the confusion/slurred speech continue to progress throughout the week has been determined that she needed to get checked out further as he was concerned what all was happening. Allergies Allergy/AdvReac Type Severity Reaction Status Date / Time sulfamethoxazole Allergy Intermediate RASH Verified 10/29/20 20:10 trimethoprim Allergy Intermediate RASH Verified 10/29/20 20:10 amlodipine AdvReac Intermediate confusion Verified 10/29/20 20:10 adhesive tape AdvReac Mild ITCHING Verified 10/29/20 20:10 Home Medications Medication Instructions Recorded Confirmed Type acetaminophen [Tylenol Extra 500 mg PO Q6H PRN 10/04/19 10/29/20 History Strength] teriparatide 20 mcg/dose (600 20 mcg SQ QAM 02/03/20 10/29/20 History mcg/2.4 mL) subcutaneous pen injector mometasone 1 appln TOP QAM 03/20/20 10/29/20 History folic acid 1 mg tablet 1 mg PO BID #180 tab 04/28/20 10/29/20 Rx insulin aspart U-100 100 unit/mL See Rx Instructions SQ TID ml 06/08/20 10/29/20 History (3 mL) subcutaneous pen insulin glargine 100 unit/mL (3 15 unit SUBCUT HS #1 box 06/08/20 10/29/20 Rx mL) subcutaneous pen calcium carbonate 500 mg (1,250 1 tab PO QAM #90 tab 07/08/20 10/29/20 Rx mg)-vitamin D3 200 unit tablet clotrimazole-betamethasone 1 1 applic TOPICAL BID PRN g 08/26/20 10/29/20 History %-0.05 % topical cream lactulose 20 gram/30 mL oral 45 ml PO BID ml 08/26/20 10/29/20 History solution hydroxyzine HCl 10 mg tablet 10 mg PO QID PRN #30 tab 08/31/20 10/29/20 Rx carvedilol 12.5 mg tablet 12.5 mg PO BID #180 tab 09/09/20 10/29/20 Rx pantoprazole 40 mg tablet,delayed 40 mg PO BID #180 tab 09/09/20 10/29/20 Rx release calcitriol 0.25 mcg PO 3XWK 10/24/20 10/29/20 History rifaximin 550 mg tablet 550 mg PO BID 10/24/20 10/29/20 History ropinirole 1 mg PO .QAFTERNOON 10/24/20 10/29/20 History ropinirole 2 mg PO HS 10/24/20 10/29/20 History sodium bicarbonate 650 mg tablet 1,300 mg PO BID #120 tab 10/26/20 10/29/20 Rx cephalexin 250 mg capsule 250 mg PO BID #10 cap 10/27/20 10/29/20 Rx furosemide 20 mg tablet 20 mg PO DAILY tab 10/27/20 10/29/20 History Past Med/Surg History Medical History (Updated 10/30/20 @ 16:28 by Amos Calles MD) Anemia of chronic disease Anxiety Aortic stenosis Chronic kidney disease, stage 4 (severe) Diabetic nephropathy associated with type 2 diabetes mellitus Diabetic peripheral neuropathy associated with type 2 diabetes mellitus Diverticular disease Duodenal ulcer Dysesthesia Esophageal varices Gastric ulcer GERD (gastroesophageal reflux disease) History of GI bleed History of recent blood transfusion (~06/2019) Hyperlipidemia Hypertension Hypertension Iron deficiency anemia Liver cirrhosis 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 Shivani Carmen- EGD History of anesthesia reaction difficult to wake after bladder tack sx History of bilateral cataract extraction History of bladder surgery bladder tack History of colonoscopy History of esophagogastroduodenoscopy (EGD) multiple---last 06/22/19 [place] [facility] [place] of hemiarthroplasty of right shoulder January 2018 post fracture History of repair of right rotator cuff History of revision of total shoulder arthroplasty (12/29/18) Right shoulder, 12/29/18 History of shoulder surgery (~11/2019) Had right total arthroplasty removed 11/2019 History of tooth extraction all teeth S/P ORIF (open reduction internal fixation) fracture R shoulder, January 2018 S/P shoulder surgery (11/18/19) R TSA removal, I&D, placement of abx spacer Family History Grandmother (Paternal) Family history of diabetes mellitus Father COPD (chronic obstructive pulmonary disease) Mother Hypertension Family/Other Cancer Sister Ovarian cancer Denies family history of Prostate cancer Myocardial infarction Breast cancer Colorectal cancer Social History Smoking Status: Former smoker Tobacco Type: Cigarettes Second Hand Exposure: No; Do You Dip or Chew Tobacco: No; Hx Alcohol Use: No Hx Substance Use: No Preferred Language: Slovenian Communication Ability: Effective Visual Impairment: Limited Hearing Ability: Normal Beet Flumer Required: No Beliefs That Will Affect Care: None marital status: Current Living Situation: Spouse Current Living Situation Comment: Lives with and son current occupational status: retired Other Information That Helps Us Care for You: No Feels Safe at Home: Yes Safety Concerns: Feels Safe At This Time Childhood Exposure to Second-Hand Smoke: Yes Diet Comment: regular Dental Care, Regularly: No Physical Activity Frequency: Does not Exercise Seatbelt Use: always Sunscreen Use: Yes Assistive Devices: Walker Assistive Devices Comment: no lower teeth, upper dentures not here Review of Systems Review of Systems: All systems reviewed & are unremarkable except as noted in HPI & below Physical Exam Constitutional: WD/WN, vitals as above Eyes: PERRL, conjunctivae normal, anicteric sclerae ENMT: external ear and nose normal, oropharynx normal Respiratory: normal respiratory effort, lungs clear to auscultation Cardiovascular: Rate/Rhythm: regular rate and regular rhythm Heart Sounds: + murmur (soft systolic ejection murmur) Vessels: normal peripheral pulses; no JVD Gastrointestinal (Abdomen): Inspection/Auscultation: normal bowel sounds; abdomen not distended Percussion/Palpation: abdomen soft and + ascites; abdomen nontender, no guarding and no hepatosplenomegaly Psychiatric: Orientation: alert, oriented to person, oriented to place and cooperative; + not oriented to time Thought Process: + circumstantial thought process and + tangential thought process Results & Data Results & Data ([facility]) Vital Signs (Past 12 Hours) Vital Signs Temp Pulse Pulse Resp BP BP Pulse Ox 10/29/20 22:01 62 20 97 10/29/20 22:00 61 16 162/70 H 97 10/29/20 21:31 64 21 97 10/29/20 21:30 63 18 181/85 H 97 10/29/20 21:01 64 17 98 10/29/20 21:00 64 13 156/85 H 99 10/29/20 20:31 63 15 98 10/29/20 20:30 63 18 148/85 H 98 10/29/20 20:14 66 16 152/80 H 98 10/29/20 20:02 65 20 133/64 94 10/29/20 20:01 67 20 95 10/29/20 20:00 66 21 95 10/29/20 19:59 67 19 94 10/29/20 19:01 36.1 C L 67 18 158/63 H 97 10/29/20 17:21 67 21 133/64 Laboratory Results 10/30/20 10/29/20 10/29/20 Range/Units 00:53 22:47 22:47 WBC (4.8-10.8) K/uL RBC (4.2-5.4) M/uL Hgb (12.0-16.0) g/dL Hct (37-47) % MCV (80-100) fL MCH (25-34) pg MCHC (32-36) g/dL RDW Std Deviation (36.4-46.3) fL RDW Coeff of Karina (11.5-14.5) % Plt Count (130-400) K/uL MPV (7.4-10.4) fL Immature Gran % (Auto) % Neut % (Auto) % Lymph % (Auto) % Crosby % (Auto) % Eos % (Auto) % Baso % (Auto) % Neut # (Auto) (1.4-6.5) K/uL Lymph # (Auto) (1.2-3.4) K/uL Crosby # (Auto) (0.11-0.59) K/uL Eos # (Auto) (0-0.5) K/uL Baso # (Auto) (0-0.2) K/uL Immature Gran # (Auto) (0.00-0.02) K/uL Platelet Estimate (Normal) PT (9.0-12.0) Seconds INR (0.9-1.1) APTT (21.0-31.0) Seconds PTT Ratio Sodium (136-145) mmol/L Potassium (3.5-5.1) mmol/L Chloride (98-107) mmol/L Carbon Dioxide (21-32) mmol/L Anion Gap (3-11) BUN (7-18) mg/dl Creatinine (0.6-1.2) mg/dl Est Cr Clr Drug Dosing ml/min Est GFR ( Amer) Est GFR (Non-Af Amer) BUN/Creatinine Ratio (10-20) Glucose (70-99) mg/dl POC Glucose 112 H (70-99) mg/dl Lactate (0.4-2.0) mmol/L Calcium (8.5-10.1) mg/dl Magnesium (1.8-2.4) mg/dl Total Bilirubin (0.2-1) mg/dl AST (15-37) U/L ALT (12-78) U/L Alkaline Phosphatase (45-117) U/L Ammonia (11-32) umol/L Troponin I (0-0.045) ng/ml Total Protein (6.4-8.2) gm/dl Albumin (3.4-5.0) gm/dl Globulin (2.5-4.0) gm/dl Albumin/Globulin Ratio (0.9-2) Procalcitonin (0-0.5) ng/ml COVID-19 [facility] SARS-CoV-2, RNA, NAAT NEGATIVE (NEGATIVE) 10/29/20 10/29/20 10/29/20 Range/Units 20:00 20:00 20:00 WBC (4.8-10.8) K/uL RBC (4.2-5.4) M/uL Hgb (12.0-16.0) g/dL Hct (37-47) % MCV (80-100) fL MCH (25-34) pg MCHC (32-36) g/dL RDW Std Deviation (36.4-46.3) fL RDW Coeff of Karina (11.5-14.5) % Plt Count (130-400) K/uL MPV (7.4-10.4) fL Immature Gran % (Auto) % Neut % (Auto) % Lymph % (Auto) % Crosby % (Auto) % Eos % (Auto) % Baso % (Auto) % Neut # (Auto) (1.4-6.5) K/uL Lymph # (Auto) (1.2-3.4) K/uL Crosby # (Auto) (0.11-0.59) K/uL Eos # (Auto) (0-0.5) K/uL Baso # (Auto) (0-0.2) K/uL Immature Gran # (Auto) (0.00-0.02) K/uL Platelet Estimate (Normal) PT (9.0-12.0) Seconds INR (0.9-1.1) APTT (21.0-31.0) Seconds PTT Ratio Sodium 145 (136-145) mmol/L Potassium 5.5 H (3.5-5.1) mmol/L Chloride 122 H (98-107) mmol/L Carbon Dioxide 17 L (21-32) mmol/L Anion Gap 6.0 (3-11) BUN 73 H (7-18) mg/dl Creatinine 3.21 H (0.6-1.2) mg/dl Est Cr Clr Drug Dosing 15.9 ml/min Est GFR ( Amer) 16.8 Est GFR (Non-Af Amer) 14.5 BUN/Creatinine Ratio 22.7 H (10-20) Glucose 209 H (70-99) mg/dl POC Glucose (70-99) mg/dl Lactate 1.6 (0.4-2.0) mmol/L Calcium 9.1 (8.5-10.1) mg/dl Magnesium 2.5 H (1.8-2.4) mg/dl Total Bilirubin 0.9 (0.2-1) mg/dl AST 25 (15-37) U/L ALT 27 (12-78) U/L Alkaline Phosphatase 162 H (45-117) U/L Ammonia (11-32) umol/L Troponin I < 0.015 (0-0.045) ng/ml Total Protein 7.9 (6.4-8.2) gm/dl Albumin 2.9 L (3.4-5.0) gm/dl Globulin 5.0 H (2.5-4.0) gm/dl Albumin/Globulin Ratio 0.6 L (0.9-2) Procalcitonin 0.24 (0-0.5) ng/ml COVID-19 Eval Order SARS-CoV-2, RNA, NAAT (NEGATIVE) 10/29/20 10/29/20 10/29/20 Range/Units 20:00 20:00 20:00 WBC 2.47 L (4.8-10.8) K/uL RBC 3.47 L (4.2-5.4) M/uL Hgb 9.8 L (12.0-16.0) g/dL Hct 30.4 L (37-47) % MCV 87.6 (80-100) fL MCH 28.2 (25-34) pg MCHC 32.2 (32-36) g/dL RDW Std Deviation 51.3 H (36.4-46.3) fL RDW Coeff of Karina 16.1 H (11.5-14.5) % Plt Count 34 L (130-400) K/uL MPV 10.5 H (7.4-10.4) fL Immature Gran % (Auto) 0.0 % Neut % (Auto) 68.9 % Lymph % (Auto) 19.8 % Crosby % (Auto) 7.3 % Eos % (Auto) 3.6 % Baso % (Auto) 0.4 % Neut # (Auto) 1.70 (1.4-6.5) K/uL Lymph # (Auto) 0.49 L (1.2-3.4) K/uL Crosby # (Auto) 0.18 (0.11-0.59) K/uL Eos # (Auto) 0.09 (0-0.5) K/uL Baso # (Auto) 0.01 (0-0.2) K/uL Immature Gran # (Auto) 0.00 (0.00-0.02) K/uL Platelet Estimate Decreased L (Normal) PT 12.7 H (9.0-12.0) Seconds INR 1.3 H (0.9-1.1) APTT 31.1 H (21.0-31.0) Seconds PTT Ratio 1.2 Sodium (136-145) mmol/L Potassium (3.5-5.1) mmol/L Chloride (98-107) mmol/L Carbon Dioxide (21-32) mmol/L Anion Gap (3-11) BUN (7-18) mg/dl Creatinine (0.6-1.2) mg/dl Est Cr Clr Drug Dosing ml/min Est GFR ( Amer) Est GFR (Non-Af Amer) BUN/Creatinine Ratio (10-20) Glucose (70-99) mg/dl POC Glucose (70-99) mg/dl Lactate (0.4-2.0) mmol/L Calcium (8.5-10.1) mg/dl Magnesium (1.8-2.4) mg/dl Total Bilirubin (0.2-1) mg/dl AST (15-37) U/L ALT (12-78) U/L Alkaline Phosphatase (45-117) U/L Ammonia 185.2 H (11-32) umol/L Troponin I (0-0.045) ng/ml Total Protein (6.4-8.2) gm/dl Albumin (3.4-5.0) gm/dl Globulin (2.5-4.0) gm/dl Albumin/Globulin Ratio (0.9-2) Procalcitonin (0-0.5) ng/ml COVID-19 Eval Order SARS-CoV-2, RNA, NAAT (NEGATIVE) Medications Administered Current Inpatient Medications Acetaminophen (Acetaminophen 325 Mg Tab) 650 mg PO Q4H PRN PRN Reason: pain/fever Stop: 11/29/20 00:50 Al Hydrox/Mg Hydrox/Simethicone (Aluminum/Magnesium Susp 30 Ml Udc) 30 ml PO Q6H PRN PRN Reason: Dyspepsia Stop: 11/29/20 00:50 Carvedilol (Carvedilol 12.5 Mg Tab) 12.5 mg PO BID BOBBY Stop: 11/29/20 08:59 Dextrose (Dextrose 50% 50 Ml Syringe) 25 - 50 ml IV UD PRN; Protocol PRN Reason: Hypoglycemia Protocol Stop: 11/29/20 00:50 Folic Acid (Folic Acid 1 Mg Tab) 1 mg PO BID BOBBY Stop: 11/29/20 08:59 Furosemide (Furosemide 20 Mg Tab) 20 mg PO DAILY BOBBY Stop: 11/29/20 08:59 Glucagon (Glucagon For Inj 1 Mg Vial) 1 mg SQ UD PRN; Protocol PRN Reason: Hypoglycemia Protocol Stop: 11/29/20 00:50 Glucose (Glucose 10 Tabs/Tube) 4 - 8 tabs PO UD PRN; Protocol PRN Reason: Hypoglycemia Protocol Stop: 11/29/20 00:50 Glucose (Glucose 40% Gel 15 Gm Tube) 15 - 30 gm PO UD PRN; Protocol PRN Reason: Hypoglycemia Protocol Stop: 11/29/20 00:50 Hydroxyzine HCl (Hydroxyzine Hcl 10 Mg Tab) 10 mg PO QID PRN PRN Reason: anxiety Stop: 11/29/20 00:50 Ceftriaxone Sodium 2,000 mg/ (Dextrose) 70 mls @ 100 mls/hr IV DAILY BOBBY; Protocol Stop: 11/09/20 08:59 Insulin Aspart (Insulin Aspart 100 Units/Ml 3 Ml Pen) 0 units SC ACHS BOBBY Stop: 11/29/20 07:29 Insulin Glargine (Insulin Glargine Solostar 100 Units/Ml 3 Ml Pen) 15 units SQ HS BOBBY Stop: 11/29/20 20:59 Lactulose (Lactulose Syrup 30 Gm/45 Ml Udp) 30 gm PO BID BOBBY Stop: 11/29/20 08:59 Magnesium Hydroxide (Magnesium Hydroxide Susp 30 Ml Udc) 30 ml PO Q6H PRN PRN Reason: Constipation Stop: 11/29/20 00:50 Miscellaneous (Carbohydrates For Hypoglycemia ) 15 - 30 gm PO UD PRN PRN Reason: Hypoglycemia Protocol Stop: 11/29/20 00:50 Mometasone Furoate (Mometasone Furoate 0.1% Cr 15 Gm Tube) 1 appln EXT QAM BOBBY Stop: 11/29/20 08:59 Ondansetron HCl (Ondansetron Inj 2 Mg/Ml 2 Ml Vial) 4 mg IV Q6H PRN PRN Reason: Nausea Stop: 11/29/20 00:50 Pantoprazole Sodium (Pantoprazole 40 Mg Tab) 40 mg PO BID [facility] Stop: 11/29/20 08:59 Rifaximin (Rifaximin 550 Mg Tablet) 550 mg PO BID BOBBY Stop: 11/29/20 08:59 Ropinirole HCl (Ropinirole Hcl 1 Mg Tablet) 1 mg PO DAILY@1300 [facility] Stop: 11/29/20 12:59 Ropinirole HCl (Ropinirole Hcl 1 Mg Tablet) 2 mg PO HS BOBBY Stop: 11/29/20 20:59 Sodium Bicarbonate (Sodium Bicarbonate 650 Mg Tab) 1,300 mg PO BID BOBBY Stop: 11/29/20 08:59 Supervising Physician Co-Signing Physician Notes Attending addendum: I have physically seen this patient, have supervised the medical residents activities, and agree with the H&P unless as otherwise noted. 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 twice daily Increase lactulose to 30 g p.o. 3 times daily to 4 times daily, titrating goal to 3-4 bowel movements per day. Serial ammonia levels, CBC with differential and chemistry profile Symptoms may be triggered by urinary tract infection UTI- Follow urine culture sensitivity Discontinue Keflex and consider this in outpatient failure Placed on ceftriaxone 2 g IV daily HENRIQUE on CKD- Creatinine 3.21 upon admission, with range 1.5-2.6 Consult nephrology Remaining orders and notations as noted Resident Activity Tracking Resident Involvement: Resident Care Provided Care Provided: Adult Hospital Medicine (1) DM type 2 (diabetes mellitus, type 2) Diabetes mellitus complication status: with hyperglycemia Diabetes mellitus long-term insulin use: without intermediate school teacher use Qualified Code(s): E11.65 - Type 2 diabetes mellitus with hyperglycemia
[2020-10-30] MEDS ORDERED: GLUCAGON FOR INJ 1 MG VIAL SQ PRN (00:51)
[2020-10-30] MEDS ORDERED: ALUMINUM/MAGNESIUM SUSP 30 ML UDC PO PRN (00:51)
[2020-10-30] MEDS ORDERED: hydrOXYzine HCl 10 MG TAB PO PRN (00:51)
[2020-10-30] MEDS ORDERED: CARBOHYDRATES FOR HYPOGLYCEMIA PO PRN (00:51)
[2020-10-30] MEDS ORDERED: GLUCOSE 10 TABS/TUBE PO PRN (00:51)
[2020-10-30] MEDS ORDERED: ONDANSETRON INJ 2 MG/ML 2 ML VIAL IV PRN (00:51)
[2020-10-30] MEDS ORDERED: GLUCOSE 40% GEL 15 GM TUBE PO PRN (00:51)
[2020-10-30] MEDS ORDERED: MAGNESIUM HYDROXIDE SUSP 30 ML UDC PO PRN (00:51)
[2020-10-30] MEDS ORDERED: DEXTROSE 50% 50 ML SYRINGE IV PRN (00:51)
[2020-10-30 05:57] LABS: Hematocrit (blood only) 26.8 % (37-47); Hemoglobin 8.7 g/dL (12.0-16.0); Mean Corpuscular Hemoglobin 28.3 pg (25-34); Mean Corpuscular Hgb Conc 32.5 g/dL (32-36); Mean Corpuscular Volume 87.3 fL (80-100); RDW Coefficient of Variation 16.2 % (11.5-14.5); RDW Standard Deviation 52.1 fL (36.4-46.3); Red Blood Count 3.07 M/uL (4.2-5.4); White Blood Count 2.58 K/uL (4.8-10.8)
[2020-10-30 06:02] LABS: Mean Platelet Volume 10.5 fL (7.4-10.4); Platelet Count 32 K/uL (130-400)
[2020-10-30 06:10] LABS: INR 1.3 (0.9-1.1); Prothrombin Time 12.9 Seconds (9.0-12.0)
[2020-10-30 06:16] LABS: Basophils # (auto) 0.01 K/uL (0-0.2); Basophils % (auto) 0.4 %; Eosinophils # (auto) 0.09 K/uL (0-0.5); Eosinophils % (auto) 3.5 %; Lymphocytes # (auto) 0.65 K/uL (1.2-3.4); Lymphocytes % (auto) 25.2 %; Monocytes # (auto) 0.27 K/uL (0.11-0.59); Monocytes % (auto) 10.5 %; Neutrophils # (auto) 1.56 K/uL (1.4-6.5); Neutrophils % (auto) 60.4 %; RBC Morphology Unremarkable
[2020-10-30 06:34] LABS: Albumin Level 2.5 gm/dl (3.4-5.0); BUN Creatinine Ratio 22.4 (10-20); Calcium 8.4 mg/dl (8.5-10.1); Creatinine Clr Calc Pharmacy 16.5 ml/min; Est GFR (African American) 17.9; Est GFR (Non-African American) 15.5; Potassium 5.2 mmol/L (3.5-5.1)
[2020-10-30 06:37] LABS: Albumin Globulin Ratio 0.6 (0.9-2); Bilirubin,Total 0.9 mg/dl (0.2-1); Globulin 4.4 gm/dl (2.5-4.0); Total Protein 6.9 gm/dl (6.4-8.2)
[2020-10-30] MEDS: LACTULOSE SYRUP 30 GM/45 ML UDP PO SCH ×2 (08:09→21:17)
[2020-10-30] MEDS: MOMETASONE FUROATE 0.1% CR 15 GM TUBE EXT SCH (08:09)
[2020-10-30] MEDS: PANTOprazole 40 MG TAB PO SCH ×2 (08:10→21:15)
[2020-10-30] MEDS: FOLIC ACID 1 MG TAB PO SCH ×2 (08:10→21:14)
[2020-10-30] MEDS: carvediloL 12.5 MG TAB PO SCH ×2 (08:10→21:14)
[2020-10-30] MEDS: rifAXIMin 550 MG TABLET PO SCH ×2 (08:11→21:15)
[2020-10-30] MEDS: SODIUM BICARBONATE 650 MG TAB PO SCH ×2 (08:11→21:15)
[2020-10-30] MEDS: INSULIN ASPART 100 UNITS/ML 3 ML PEN SC SCH ×4 (08:23→21:20)
[2020-10-30] MEDS: cefTRIAXone SODIUM 2,000 MG in DEXTROSE 5% 50 ML IV SCH (08:53)
[2020-10-30] MEDS ORDERED: cephALEXin 250 MG CAP PO SCH (09:00)
[2020-10-30] MEDS ORDERED: FUROSEMIDE 20 MG TAB PO SCH (09:00)
[2020-10-30 10:05] LABS: Appearance Urine Cloudy (Clear); Bacteria Urine Automated Negative (Negative); Bilirubin Urine Negative (Negative); Blood Urine 2+ (Negative); Color Urine Yellow; Epithelial Cell Urine Auto 20-30 /lpf (0-5); Glucose Urine UA Negative (Negative); Ketones Urine Negative (Negative); Leukocyte Esterase Urine Negative (Negative); Nitrite Urine Negative (Negative); Protein Urine 1+ (Negative); RBC Urine Automated 0-4 /hpf (0-4); Specific Gravity Urine 1.013 (1.000-1.030); Urobilinogen Urine Negative (Negative)
--- NOTE | 2020-10-30 10:08 | Hospitalist Progress Note ---
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 Her symptoms likely represents an exacerbation of hepatic encephalopathy secondary to acute illness. She remains hemodynamically stable. Metabolic Encephalopathy -- in setting of [id number] HENRIQUE, known cirrhosis, active UTI, and decreased PO intake (including cirrhosis medications) - Patient with known history of cirrhosis with MAE - Also with known history of ongoing HENRIQUE atop CKD3 (see below) - Reporting recent intolerance of oral home regimens secondary to ongoing nausea in face of UTI - Suspect likely multifactorial in etiology: primarily from hyperammonemia from compliance difficulties to PO medications and also likely: active UTI, possible dehydration? - Hyperammonemic on admission 185 --> downtrending to < 150 - BMP, Ammonia levels qAM - Cirrhosis, UTI, HENRIQUE/CKD3 management as below - Continue BOBBY rifaximin 550mg b.i.d., lactulose 20 b.i.d. (goal of 3-4 BMs/day) - Promote importance of compliance of medications UTI -- Morganella/Gamma Strep (w/ good sensitivities) on UCX 10/26/20 alongside UA showing +hematuria (not new), +bacteria - Clinically, still reporting +urinary frequency/urgency, +mild incontinence per nursing - Record review does note h/o UTIs in March, June, September, and now October - On review of nephrology notes, does have h/o persistent, ongoing microscopic hematuria since at least 04/2019 - Await repeat UCX results - Continue CFTX for now given unclear whether this may have component towards encephalopathy, +nausea predisposing to sequelae above - Encourage hydration Quhfm-fi-Omjlgcp HENRIQUE atop CKD-III -- follows with [facility] (last seen 10/[address] Galeano) - Baseline creatinine does appear to be 1.5 - 2.0 per nephrology notes, record review - On admission - BUN 73/Cr 3.2/Ratio 22.4; eGFR 14.5 - This elevation was also noted prior to nephrology visit on 10/26 (however, Cr is nearly ~1.5-2x since March) - As above: h/o persistent, ongoing microscopic hematuria since at least 04/2019 - While BUN/Cr is >20, etiology remains somewhat unclear -- ?hepatorenal, ?dehydration, ?diuretics, ?nephritic syndrome (given ongoing microhematuria) - Continue holding spironolactone, calcium supplementation - Continue home NaHCO3 replacement 1300 b.i.d. - Strict I+Os to better characterize UOP - Consult nephrology given ongoing HENRIQUE atop CKD3 in setting of this acute illness, cirrhosis -- also appreciate recommendations on possible crystalloid/colloid replacement while here Hepatic Cirrhosis -- suspected to be due to MAE - Receives care through [facility] in [place] (Joan Monson MD) -- last visit scanned in chart 08/2020 - MELD 21, Child-Miller 8 -- per hepatology, not a good candidate for transplant given poor overall functional status - Continue rifaximin, lactulose as above - Continue Lasix - Hold spironolactone - Last Alb 2.5 Chronic Thrombocytopenia -- Plt 34 on admission - In setting of known, chronic hepatic cirrhosis - Over last year, baseline ~30-50 per review of records - Monitor while here - *note - patient does report long-standing history of daily nosebleeds Type 2 Diabetes -- on review of records: - Patient utilizes Dexcom at home - BSG is ACHS, verification with Dexcom - Carb consistent diet - Utilization of sliding scale insulin with glargine while inpatient RLS -Continue home Requip regimen Dispo: MedSurg Diet: Carb consistent CODE STATUS: Full code DVT prophylaxis: Deferred at this time in the setting of INR elevation Consults: nephrology (2) UTI (urinary tract infection): (3) DM type 2 (diabetes mellitus, type 2): (4) Hyperlipidemia: (5) Restless leg syndrome: (6) Acute hyperkalemia: (7) Hyperkalemia: Admission and Anticipated Discharge Date Admission Date: October 29, 2020 Supervising Physician Co-Signing Physician Notes Resident Physician Supervision Note: I independently interviewed and examined the patient and verified the constantino history and physical, reviewed labs and image studies, discussed the case with the resident Dr. Kenney and agree with the findings and care plan. Subjective No acute events overnight. Patient seen at the bedside this morning, does report feeling "much better" compared to yesterday. We reviewed her history, no additions at at this time. She said that she is still feeling "slow" and shaky. Still experiencing urinary urgency and mild incontinence. Denies any pain. Says that her last bowel movement was last nightdid not observe any black or discolored stools, or any redness in her stool. Says that her appetite at baseline is quite poorbut she is going to try to eat now. No nausea since last night. Says she actually feels pretty well from this perspective this morning. Review of Systems Review of Systems: Per HPI Physical Exam Constitutional: Well, but tired appearing 65-year-old female who is lying back in hospital bed, awake, upon my arrival. She converses freely, with some increased speech latency. Some mild tremors noted in her upper extremities at rest. No acute distress. Eyes: No scleral icterus. Respiratory: Good respiratory effort with symmetric expansion of the chest. Lungs are clear to auscultation bilaterally without crackles or wheezes. Cardiovascular: Normal rate and regular rhythm. S1 and S2 are present without murmurs rubs or gallops. Gastrointestinal (Abdomen): Normoactive bowel sounds. Abdomen soft, nontender, nondistended to palpation. No appreciable ascites. No appreciable hepatomegaly. Skin: No clubbing appreciated in the upper extremity fingertips. Neurologic: Fully alert and oriented. Asterixis is present in the upper extremities bilaterally. Results & Data Results & Data ([facility]) Vital Signs (Past 12 Hours) Vital Signs Temp Pulse Pulse Resp BP BP Pulse Ox 10/30/20 08:17 36.9 C 66 16 149/64 H 96 10/30/20 00:45 36.8 C 66 18 158/69 H 98 10/30/20 00:01 60 14 152/66 H 97 10/29/20 23:30 57 L 15 118/55 L 96 10/29/20 23:00 57 L 14 154/68 H 97 10/29/20 22:44 63 18 99 10/29/20 22:30 60 150/70 H 97 10/29/20 22:01 62 20 97 10/29/20 22:00 61 16 162/70 H 97 10/29/20 21:31 64 21 97 10/29/20 21:30 63 18 181/85 H 97 Resident Activity Tracking Resident Involvement: Resident Care Provided Care Provided: Adult Hospital Medicine (1) DM type 2 (diabetes mellitus, type 2) Diabetes mellitus complication status: with hyperglycemia Diabetes mellitus prison insulin use: without prison use Qualified Code(s): E11.65 - Type 2 diabetes mellitus with hyperglycemia
--- NOTE | 2020-10-30 12:38 | Electrocardiogram Report ---
Test Reason : Blood Pressure : / mmHG Vent. Rate : 068 BPM Atrial Rate : 068 BPM P-R Int : 186 ms QRS Dur : 084 ms QT Int : 428 ms P-R-T Axes : 055 044 049 degrees QTc Int : 455 ms Poor data quality, interpretation may be adversely affected Normal sinus rhythm Nonspecific ST abnormality Abnormal ECG When compared with ECG of 24-OCT-2020 19:02, T wave inversion now evident in Lateral leads Confirmed by Adam Mcgraw ([id number]) on 10/30/2020 12:38:08 PM Referred By: REFERRED SELF Confirmed By:Adam Mcgraw
[2020-10-30] MEDS: rOPINIRole HCL 1 MG TABLET PO SCH ×2 (12:40→21:15)
[2020-10-30] MEDS ORDERED: SODIUM BICARBONATE 8.4% 50 MEQ in SODIUM CHLORIDE 0.45 % 1,000 ML IV SCH (16:00)
--- NOTE | 2020-10-30 16:09 | Nephrology Consultation ---
Date of Consultation October 30, 2020 Assessment & Plan (1) Acute kidney injury: * Patient appears clinically volume contracted (poor oral intake due to hepatic encephalopathy, oral diuretic regimen) * Stop Furosemide * Obtain bilateral renal US * Check FeNa * Provide 1 L IV hydration and start IV SPA * JAYLON due to diarrhea. Will use 0.45 NS w/ 50 mEq NaHCO3 for hydration * Monitor PRP * BP is currently acceptable. No acute indication for Midodrine or Octreotide therapy at this time (2) Chronic kidney disease, stage 4 (severe): * Baseline Cr 2.0 w/ EGFR 25 cc/min (3) Cystitis: * Urine culture + for Morganella. Patient has been treated w/ IV Ceftriaxone (4) Hepatic encephalopathy: * Improved following reinstitution of Lactulose therapy and addition of Rifaximin History of Present Illness Reason for Consultation: HENRIQUE/CKD Attending Physician: Adriana Jimenez MD History of Present Illness Mrs. Sherman is a 65 year old white female who is seen at the request of Dr. Jimenez for evaluation of HENRIQUE/CKD. Medical records in the EMR were reviewed today and are summarized as follows: Mrs. Sherman has stage IV CKD (advanced impairment - Dr. Galeano). Baseline Cr ~ 2 w/ EGFR 25 cc/min. Her medical history is significant for HTN, AODM, mild mitral reguritation w/ severe pulmonary HTN (RVSP 81 mmHg), PUD, RA, depression, psoriasis, MAE/cirrhosis and esophageal varicies. Mrs. Sherman reports that she has not been adherent to her prescribed lactulose therapy due to diarrhea. Her diuretic regimen was recently changed. Spironolactone was stopped due to mild hyperkalemia. Mrs. Sherman was admitted to [facility] last evening for evaluation of MS changes. Head CT without contrast revealed only microvascular changes. Serum ammonia level was elevated at 185. Serum Cr was 3.5. Urinalysis was suggestive of cystitis. Urine culture has grown out Morganella. At the time of my evaluation Mrs. Sherman had been treated w/ Lactulose and Rifaximin. She was A&O x3. She denied fever or abdominal discomfort. Allergies Allergy/AdvReac Type Severity Reaction Status Date / Time sulfamethoxazole Allergy Intermediate RASH Verified 10/29/20 20:10 trimethoprim Allergy Intermediate RASH Verified 10/29/20 20:10 amlodipine AdvReac Intermediate confusion Verified 10/29/20 20:10 adhesive tape AdvReac Mild ITCHING Verified 10/29/20 20:10 Home Medications Medication Instructions Recorded Confirmed Type acetaminophen [Tylenol Extra 500 mg PO Q6H PRN 10/04/19 10/29/20 History Strength] teriparatide 20 mcg/dose (600 20 mcg SQ QAM 02/03/20 10/29/20 History mcg/2.4 mL) subcutaneous pen injector mometasone 1 appln TOP QAM 03/20/20 10/29/20 History folic acid 1 mg tablet 1 mg PO BID #180 tab 04/28/20 10/29/20 Rx insulin aspart U-100 100 unit/mL See Rx Instructions SQ TID ml 06/08/20 10/29/20 History (3 mL) subcutaneous pen insulin glargine 100 unit/mL (3 15 unit SUBCUT HS #1 box 06/08/20 10/29/20 Rx mL) subcutaneous pen calcium carbonate 500 mg (1,250 1 tab PO QAM #90 tab 07/08/20 10/29/20 Rx mg)-vitamin D3 200 unit tablet clotrimazole-betamethasone 1 1 applic TOPICAL BID PRN g 08/26/20 10/29/20 History %-0.05 % topical cream lactulose 20 gram/30 mL oral 45 ml PO BID ml 08/26/20 10/29/20 History solution hydroxyzine HCl 10 mg tablet 10 mg PO QID PRN #30 tab 08/31/20 10/29/20 Rx carvedilol 12.5 mg tablet 12.5 mg PO BID #180 tab 09/09/20 10/29/20 Rx pantoprazole 40 mg tablet,delayed 40 mg PO BID #180 tab 09/09/20 10/29/20 Rx release calcitriol 0.25 mcg PO 3XWK 10/24/20 10/29/20 History rifaximin 550 mg tablet 550 mg PO BID 10/24/20 10/29/20 History ropinirole 1 mg PO .QAFTERNOON 10/24/20 10/29/20 History ropinirole 2 mg PO HS 10/24/20 10/29/20 History sodium bicarbonate 650 mg tablet 1,300 mg PO BID #120 tab 10/26/20 10/29/20 Rx cephalexin 250 mg capsule 250 mg PO BID #10 cap 10/27/20 10/29/20 Rx furosemide 20 mg tablet 20 mg PO DAILY tab 10/27/20 10/29/20 History Patient History Medical History Anemia of chronic disease Anxiety Aortic stenosis Chronic kidney disease, stage III (moderate) Diabetic nephropathy associated with type 2 diabetes mellitus Diabetic peripheral neuropathy associated with type 2 diabetes mellitus Diverticular disease Duodenal ulcer Dysesthesia Esophageal varices Gastric ulcer GERD (gastroesophageal reflux disease) History of GI bleed History of recent blood transfusion (~06/2019) Hyperlipidemia Hypertension Hypertension Iron deficiency anemia Liver cirrhosis 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 Shivani Carmen- EGD History of anesthesia reaction difficult to wake after bladder tack sx History of bilateral cataract extraction History of bladder surgery bladder tack History of colonoscopy History of esophagogastroduodenoscopy (EGD) multiple---last 06/22/19 Dr. Malena Marie at [facility] History of hemiarthroplasty of right shoulder January 2018 post fracture History of repair of right rotator cuff History of revision of total shoulder arthroplasty (12/29/18) Right shoulder, 12/29/18 History of shoulder surgery (~11/2019) Had right total arthroplasty removed 11/2019 History of tooth extraction all teeth S/P ORIF (open reduction internal fixation) fracture R shoulder, January 2018 S/P shoulder surgery (11/18/19) R TSA removal, I&D, placement of abx spacer Family History Grandmother (Paternal) Family history of diabetes mellitus Father COPD (chronic obstructive pulmonary disease) Mother Hypertension Family/Other Cancer Sister Ovarian cancer Denies family history of Prostate cancer Myocardial infarction Breast cancer Colorectal cancer Social History Smoking Status: Former smoker Tobacco Type: Cigarettes Second Hand Exposure: No; Do You Dip or Chew Tobacco: No; Hx Alcohol Use: No Hx Substance Use: No Preferred Language: Mongolian Communication Ability: Effective Visual Impairment: Limited Hearing Ability: Normal Locker Room Supervisor Required: No Beliefs That Will Affect Care: None marital status: Current Living Situation: Spouse Current Living Situation Comment: Lives with and son current occupational status: retired Other Information That Helps Us Care for You: No Feels Safe at Home: Yes Safety Concerns: Feels Safe At This Time Childhood Exposure to Second-Hand Smoke: Yes Diet Comment: regular Dental Care, Regularly: No Physical Activity Frequency: Does not Exercise Seatbelt Use: always Sunscreen Use: Yes Assistive Devices: Denture - Upper, Glasses and Walker Assistive Devices Comment: no lower teeth, upper dentures not here Review of Systems Constitutional: no fever Eyes: no problem reported Ear, Nose, Mouth, Throat: no problem reported Respiratory: no dyspnea Cardiovascular: no chest pain and no edema Gastrointestinal: no abdominal pain Neurologic: no confusion Physical Exam Constitutional: + ill appearing; not in distress Eyes: PERRL ENMT: external ear and nose normal, oropharynx normal Neck: trachea midline, no thyromegaly Respiratory: normal respiratory effort, lungs clear to auscultation Cardiovascular: RRR, no murmur, no edema Gastrointestinal (Abdomen): normal bowel sounds, soft, nontender, no hepatosplenomegaly Musculoskeletal: Extremities: no cyanosis and no clubbing Skin: no rashes, warm and dry Neurologic: awake; not confused Results & Data ([facility]) Vital Signs (Past 12 Hours) Vital Signs Temp Pulse Resp BP Pulse Ox 10/30/20 08:17 36.9 C 66 16 149/64 H 96 Laboratory Tests 06/02/20 10/24/20 10/29/20 10:00 09:19 20:00 WBC Hgb Hct Plt Count INR Sodium Potassium Chloride Carbon Dioxide BUN Creatinine 2.06 H 3.01 H Glucose Calcium AST ALT Alkaline Phosphatase Ammonia 185.2 H Albumin Urine Color Urine Appearance Urine pH Ur Specific [place] Urine Protein Urine Glucose (UA) Urine Blood Urine Nitrite Urine Bilirubin Ur Leukocyte Esterase Urine WBC (Auto) Urine RBC (Auto) U Hyaline Cast (Auto) U Epithel Cells (Auto) Urine Bacteria (Auto) 10/30/20 10/30/20 10/30/20 05:43 05:43 05:43 WBC 2.58 L Hgb 8.7 L Hct 26.8 L Plt Count 32 L INR 1.3 H Sodium 148 H Potassium 5.2 H Chloride 125 H Carbon Dioxide 13 L BUN 68 H Creatinine 3.05 H Glucose 87 Calcium 8.4 L AST 22 ALT 24 Alkaline Phosphatase 133 H Ammonia Albumin 2.5 L Urine Color Urine Appearance Urine pH Ur Specific [place]ona Urine Protein Urine Glucose (UA) Urine Blood Urine Nitrite Urine Bilirubin Ur Leukocyte Esterase Urine WBC (Auto) Urine RBC (Auto) U Hyaline Cast (Auto) U Epithel Cells (Auto) Urine Bacteria (Auto) 10/30/20 10/30/20 05:43 Unknown WBC Hgb Hct Plt Count INR Sodium Potassium Chloride Carbon Dioxide BUN Creatinine Glucose Calcium AST ALT Alkaline Phosphatase Ammonia 148.0 H Albumin Urine Color Yellow Urine Appearance Cloudy A Urine pH 6.0 Ur Specific Iona 1.013 Urine Protein 1+ H Urine Glucose (UA) Negative Urine Blood 2+ H Urine Nitrite Negative Urine Bilirubin Negative Ur Leukocyte Esterase Negative Urine WBC (Auto) 1-5 Urine RBC (Auto) 0-4 U Hyaline Cast (Auto) 1-5 U Epithel Cells (Auto) 20-30 H Urine Bacteria (Auto) Negative PG Care Time/CCT Total # of Minutes Spent Total Time Spent with Patient: Total time spent is greater than 50% in coordination of care (as documented) at patient's floor/unit and/or counseling patient: Coding Level of Care Code 48871 Inpt Consult Level 5 Diagnoses Acute kidney injury N17.9 Chronic kidney disease, stage 4 (severe) N18.4 Cystitis N30.90 Hepatic encephalopathy K72.90
[2020-10-30] MEDS: ALBUMIN 25% 12.5 GM/50 ML VIAL IV SCH ×2 (16:11→23:58)
[2020-10-30] MEDS: INSULIN GLARGINE SOLOSTAR 100 UNITS/ML 3 ML PEN SQ SCH (21:19)
--- NOTE | 2020-10-31 03:17 | Billing Data ---
Date of Service October 31, 2020 Coding Level of Care Code 34527 Initial Inpt Care Lvl 3
--- NOTE | 2020-10-31 06:43 | Hospitalist Progress Note ---
Date of Service October 31, 2020 Assessment & Plan (1) Acute metabolic encephalopathy: Angela Sherman is a 65 y/o female w/ hx of cirrhosis, ascites, CKD3, RLS, T2DM, pHTN, and recent UTI who presented for acute exacerbation of hepatic encephalopathy secondary to acute illness. metabolic encephalopathy - multifactorial: partial compliance cirrhosis meds, active UTI, dehydration, MAE cirrhosis - hyperammonemic on admission 185 --> downtrending to 59 (10/31) - continue rifaximin 550mg BID and lactulose 30 BID urinary tract infection -Morganella (resistant to Unasyn) and /Gamma Strep on UC 10/26/20. 10/30 UC pending. - +urinary frequency/urgency on admission, +mild incontinence per nursing. denies dysuria on 10/31. - urine culture pending - continue IV ceftriaxone acute kidney injury on chronic kidney disease 3 -follows with [facility] (last seen 10/[address] Galeano) - baseline creatinine ~1.5-2.0 - On admission - BUN 73/Cr 3.2/Ratio 22.4; eGFR 14.5 - h/o persistent, ongoing microscopic hematuria since at least 04/2019 - nephro consulted: bicarb and 1/2NSS. albumin. cirrhosis - likely secondary to MAE - Follows [facility] hepatology in [place] (Joan Monson MD) - MELD 21, Child-Miller 8 - per hepatology, not a good candidate for transplant given poor overall functional status - continue rifaximin and lactulose as above - hold Lasix and spironolactone given acute kidney injury - last albumin 2.8 chronic thrombocytopenia - platelets 34 on admission, baseline 30-50 past year - likely secondary to cirrhosis - reports chronic daily nosebleeds. 10/31 PM moderate epistaxis. monitor clinically. type 2 diabetes - uses Dexcom at home - SSI w/ glargine while inpatient restless leg syndrome - continue home ropinirole Dispo: Levi ERWIN: DM2 diet. sodium bicarb in 1/2NSS 100 ml/hr. albumin. CODE STATUS: Full code DVT prophylaxis: Deferred at this time in the setting of INR elevation Consults: nephrology (2) UTI (urinary tract infection): (3) DM type 2 (diabetes mellitus, type 2): (4) Hyperlipidemia: (5) Restless leg syndrome: (6) Acute hyperkalemia: (7) Hyperkalemia: Admission and Anticipated Discharge Date Admission Date: October 29, 2020 Supervising Physician Co-Signing Physician Notes I personally examined the patient and verified all constantino points of history and exam, discussed case, and agree with decision making with Dr Montoya. Feeling okay, mentally feels like herself. at the bedside and notes that mentally she is back to her baseline as well. In discussing her admission, it seems that sometimes she has difficulty with her lactulose dosing particularly whenever she has appointments. On top of that she has days where she drinks reasonably well and days where she does not drink much at all. Vitals noted, in general she is awake and alert pleasant no distress. HEENT normocephalic atraumatic mucous membranes moist. Breathing unlabored no accessory muscle use good effort. Skin shows no rashes no pallor or icterus. Neuro shows no focal deficits. Metabolic encephalopathyprobably mixed picture largely hepatic encephalopathy, but also likely from dehydration. Continue HE medications, continue fluids, follow. Fortunately her mentation seems to be back to baseline. ARF on CKD 4seems to be largely from poor p.o. fluid intake by history. Continue IV fluids and follow. Metabolic acidosis related to this. Subjective Feeling better, more clear headed and less shaky. Tolerating PO intake. PM update: nosebleed in R naris. Review of Systems Review of Systems: Constitutional: Denies fever, chills Eyes: Denies blurry vision, vision changes Cardiovascular: Denies chest pain, palpitations Respiratory: Denies shortness of breath Gastrointestinal: Denies abdominal pain, vomiting, constipation, diarrhea. + nausea Genitourinary: Denies urinary symptoms including dysuria Musculoskeletal: Denies weakness, muscle aches/pain, joint aches/pain Neurological: Denies headache, focal weakness. numbness/tingling in feet, not new. Physical Exam Physical Exam: General: Grossly A&O. NAD. Cooperative. HEENT: Atraumatic, normocephalic. No scleral icterus. Pulm: CTAB anteriorly. -wheezes, -rales, -rhonchi. No respiratory distress. Cardiac: RRR, -mrg. No obvious JVD. Abdominal: Nontender, nondistended, soft. Integumentary: No gross jaundice. Neuro: Minimal asterixis on R. Results & Data Results & Data ([facility]) Vital Signs (Past 12 Hours) Vital Signs Temp Pulse Resp BP Pulse Ox 10/30/20 23:25 36.9 C 68 18 140/68 99 10/30/20 21:20 76 152/66 H Resident Activity Tracking Resident Involvement: Resident Care Provided Care Provided: Adult Hospital Medicine (1) DM type 2 (diabetes mellitus, type 2) Diabetes mellitus complication status: with hyperglycemia Diabetes mellitus mcfp insulin use: without superintendent terminal use Qualified Code(s): E11.65 - Type 2 diabetes mellitus with hyperglycemia
[2020-10-31 07:03] LABS: INR 1.3 (0.9-1.1); Prothrombin Time 13.1 Seconds (9.0-12.0)
[2020-10-31 07:19] LABS: Albumin Level 2.8 gm/dl (3.4-5.0); BUN Creatinine Ratio 20.4 (10-20); Calcium 8.2 mg/dl (8.5-10.1); Creatinine Clr Calc Pharmacy 16.9 ml/min; Est GFR (African American) 18.4; Est GFR (Non-African American) 15.9; Potassium 4.7 mmol/L (3.5-5.1)
[2020-10-31 07:21] LABS: Albumin Globulin Ratio 0.7 (0.9-2); Basophils # (auto) 0.01 K/uL (0-0.2); Basophils % (auto) 0.4 %; Bilirubin,Total 0.8 mg/dl (0.2-1); Eosinophils # (auto) 0.09 K/uL (0-0.5); Globulin 4.1 gm/dl (2.5-4.0); Hematocrit (blood only) 24.6 % (37-47); Lymphocytes % (auto) 17.8 %; Mean Corpuscular Hemoglobin 28.3 pg (25-34); Mean Corpuscular Hgb Conc 32.5 g/dL (32-36); Mean Corpuscular Volume 86.9 fL (80-100); Monocytes # (auto) 0.19 K/uL (0.11-0.59); Monocytes % (auto) 8.4 %; Neutrophils # (auto) 1.56 K/uL (1.4-6.5); Neutrophils % (auto) 69.4 %; Platelet Count 32 K/uL (130-400); RDW Coefficient of Variation 15.9 % (11.5-14.5); RDW Standard Deviation 51.3 fL (36.4-46.3); Red Blood Count 2.83 M/uL (4.2-5.4); Total Protein 6.9 gm/dl (6.4-8.2); White Blood Count 2.25 K/uL (4.8-10.8)
[2020-10-31] MEDS: SODIUM BICARBONATE 650 MG TAB PO SCH ×2 (07:25→20:28)
[2020-10-31] MEDS: LACTULOSE SYRUP 30 GM/45 ML UDP PO SCH ×2 (07:25→20:24)
[2020-10-31] MEDS: PANTOprazole 40 MG TAB PO SCH ×2 (07:26→20:28)
[2020-10-31] MEDS: FOLIC ACID 1 MG TAB PO SCH ×2 (07:26→20:26)
[2020-10-31] MEDS: carvediloL 12.5 MG TAB PO SCH ×2 (07:26→20:26)
[2020-10-31] MEDS: rifAXIMin 550 MG TABLET PO SCH ×2 (07:26→20:27)
[2020-10-31] MEDS: MOMETASONE FUROATE 0.1% CR 15 GM TUBE EXT SCH (07:27)
[2020-10-31] MEDS: ALBUMIN 25% 12.5 GM/50 ML VIAL IV SCH ×2 (07:29→16:00)
--- NOTE | 2020-10-31 07:39 | Ultrasound Report ---
RENAL ULTRASOUND HISTORY: Acute on chronic kidney disease. COMPARISON: Abdomen and pelvis CT 03/20/2020. FINDINGS: Right kidney: 11.4 cm. No hydronephrosis. Normal corticomedullary differentiation and cortical thickn ess. Left kidney: 9.2 cm. No hydronephrosis. Normal corticomedullary differentiation and cortical thicknes s. Bladder: No bladder wall thickening. The bilateral ureteral jets were not identified. IMPRESSION: No hydronephrosis. ACT 112: Negative or not required by law. Electronically signed by: James Murillo M.D. 10/31/2020 7:38 AM
[2020-10-31] MEDS: INSULIN ASPART 100 UNITS/ML 3 ML PEN SC SCH ×4 (08:35→20:33)
[2020-10-31] MEDS: cefTRIAXone SODIUM 2,000 MG in DEXTROSE 5% 50 ML IV SCH (08:36)
--- NOTE | 2020-10-31 10:45 | Nephrology Progress Note ---
Date of Service October 31, 2020 Assessment & Plan (1) Acute kidney injury: * Patient remains clinically volume contracted * Continue to hold Furosemide * Renal US 10/30/20: R 11.4cm, L 9.2cm. No hydronephrosis * Awaiting FeNa * Continue IV hydration and albumin today * JAYLON due to diarrhea. Will use 0.45 NS w/ 50 mEq NaHCO3 for hydration * Monitor PRP * BP is currently acceptable. No acute indication for Midodrine or Octreotide therapy at this time (2) Chronic kidney disease, stage 4 (severe): * Baseline Cr 2.0 w/ EGFR 25 cc/min (3) Cystitis: * Urine culture + for Morganella. Patient has been treated w/ IV Ceftriaxone (4) Hepatic encephalopathy: * Improved following reinstitution of Lactulose therapy and addition of Rifaximin Admission and Anticipated Discharge Date Admission Date: October 29, 2020 Subjective Mrs. Sherman was seen & examined in her hospital room this morning. She was alert and oriented to person, place and month. She reports that it is difficult to take lactulose on a scheduled basis due to diarrhea and rifaximin is expensive. Review of Systems Constitutional: no fever Eyes: no problem reported Ear, Nose, Mouth, Throat: no problem reported Respiratory: no dyspnea Cardiovascular: no chest pain and no edema Gastrointestinal: no abdominal pain Neurologic: no confusion Physical Exam Constitutional: + ill appearing; not in distress Eyes: PERRL ENMT: external ear and nose normal, oropharynx normal Neck: trachea midline, no thyromegaly Respiratory: normal respiratory effort, lungs clear to auscultation Cardiovascular: RRR, no murmur, no edema Gastrointestinal (Abdomen): normal bowel sounds, soft, nontender, no hepatosplenomegaly Musculoskeletal: Extremities: no cyanosis and no clubbing Skin: no rashes, warm and dry Neurologic: awake; not confused Results & Data ([facility]) Vital Signs (Past 12 Hours) Vital Signs Temp Pulse Resp BP Pulse Ox 10/31/20 07:55 36.5 C 67 18 149/67 H 98 10/30/20 23:25 36.9 C 68 18 140/68 99 Laboratory Tests 06/24/20 10/29/20 10/30/20 08:19 20:00 05:43 WBC Hgb Hct Plt Count Sodium Potassium Chloride Carbon Dioxide BUN Creatinine 1.99 H 3.05 H Glucose Ammonia 185.2 H 10/30/20 10/31/20 10/31/20 05:43 06:39 06:39 WBC 2.25 L Hgb 8.0 L Hct 24.6 L Plt Count 32 L Sodium 145 Potassium 4.7 Chloride 123 H Carbon Dioxide 14 L BUN 61 H Creatinine 2.98 H Glucose 93 Ammonia 148.0 H 10/31/20 06:45 WBC Hgb Hct Plt Count Sodium Potassium Chloride Carbon Dioxide BUN Creatinine Glucose Ammonia 59.0 H PG Care Time/CCT Total # of Minutes Spent Total Time Spent with Patient: Total time spent is greater than 50% in coordination of care (as documented) at patient's floor/unit and/or counseling patient: Coding Level of Care Code 18960 Subseq Hosp Care Lvl 3 Diagnoses Acute kidney injury N17.9 Chronic kidney disease, stage 4 (severe) N18.4 Cystitis N30.90 Hepatic encephalopathy K72.90
[2020-10-31] MEDS: SODIUM BICARBONATE 8.4% 75 MEQ in SODIUM CHLORIDE 0.45 % 1,000 ML IV SCH ×2 (11:36→23:28)
[2020-10-31] MEDS: rOPINIRole HCL 1 MG TABLET PO SCH ×2 (12:33→20:27)
[2020-10-31] MEDS: ACETAMINOPHEN 325 MG TAB PO PRN (12:41)
--- NOTE | 2020-10-31 19:41 | Billing Data ---
Date of Service October 31, 2020 Coding Level of Care Code 65904 Subseq Hosp Care Lvl 3
[2020-10-31 20:35] LABS: Creatinine Urine Random 76.1 mg/dl
[2020-10-31] MEDS: INSULIN GLARGINE SOLOSTAR 100 UNITS/ML 3 ML PEN SQ SCH (20:35)
[2020-11-01 06:24] LABS: INR 1.3 (0.9-1.1); Prothrombin Time 13.2 Seconds (9.0-12.0)
[2020-11-01 06:43] LABS: Hematocrit (blood only) 22.1 % (37-47); Hemoglobin 7.4 g/dL (12.0-16.0); Mean Corpuscular Hemoglobin 28.8 pg (25-34); Mean Corpuscular Hgb Conc 33.5 g/dL (32-36); Mean Platelet Volume 9.7 fL (7.4-10.4); Platelet Count 28 K/uL (130-400); RDW Coefficient of Variation 15.9 % (11.5-14.5); RDW Standard Deviation 50.7 fL (36.4-46.3); Red Blood Count 2.57 M/uL (4.2-5.4); White Blood Count 1.99 K/uL (4.8-10.8)
[2020-11-01 06:44] LABS: Basophils # (auto) 0.01 K/uL (0-0.2); Basophils % (auto) 0.5 %; Eosinophils # (auto) 0.06 K/uL (0-0.5); Lymphocytes # (auto) 0.46 K/uL (1.2-3.4); Lymphocytes % (auto) 23.1 %; Monocytes # (auto) 0.18 K/uL (0.11-0.59); Neutrophils # (auto) 1.28 K/uL (1.4-6.5); Neutrophils % (auto) 64.4 %; Platelet Estimate SIGNIFIC DECREASED (Normal); RBC Morphology Unremarkable
[2020-11-01 06:46] LABS: Albumin Level 2.6 gm/dl (3.4-5.0); BUN Creatinine Ratio 20.3 (10-20); Calcium 8.3 mg/dl (8.5-10.1); Creatinine Clr Calc Pharmacy 18.9 ml/min; Est GFR (African American) 21.1; Est GFR (Non-African American) 18.2; Potassium 4.6 mmol/L (3.5-5.1)
[2020-11-01 06:49] LABS: Albumin Globulin Ratio 0.7 (0.9-2); Bilirubin,Total 0.5 mg/dl (0.2-1); Globulin 3.8 gm/dl (2.5-4.0); Total Protein 6.4 gm/dl (6.4-8.2)
--- NOTE | 2020-11-01 07:10 | Hospitalist Progress Note ---
Date of Service November 01, 2020 Assessment & Plan (1) Acute metabolic encephalopathy: Angela Sherman is a 65 y/o female w/ hx of cirrhosis, ascites, CKD3, RLS, T2DM, pHTN, and recent UTI who presented for acute exacerbation of hepatic encephalopathy secondary to acute illness. metabolic encephalopathy - multifactorial: partial compliance cirrhosis meds, active UTI, dehydration, MAE cirrhosis - hyperammonemic on admission 185 --> downtrending to 59 (10/31) - continue rifaximin 550mg BID and lactulose 30 BID chronic thrombocytopeniaand anemia - likely secondary to cirrhosis - platelets 34 on admission, baseline 30-50 past year. 28 on AM of 11/01. - Hb 9.8->8.7->8.0->7.4. some component is likely dilutional. - will not transfuse at this time - reports chronic daily nosebleeds. monitor clinically. vertigo - chronic, present prior to admission - symptoms appear consistent w/ BPPV - outpatient f/u. pt already has upcomingENT visit scheduled urinary tract infection -Morganella (resistant to Unasyn) and Gamma Strep on UC 10/26/20. 10/30 UC pending. - +urinary frequency/urgency on admission, +mild incontinence per nursing. denies dysuria on 11/01. - urine culture 3 types of jennifer, high counts, likely contaminant - continue IV ceftriaxone, aim for ~7 days. PO options for outpatient limited to FQ because of Morganella. acute kidney injury on chronic kidney disease 3 -follows with [facility] (last seen 10/[address] Galeano) - baseline creatinine ~1.5-2.0 - On admission - BUN 73/Cr 3.2/Ratio 22.4; eGFR 14.5 - h/o persistent, ongoing microscopic hematuria since at least 04/2019 - nephro consulted: bicarb and 1/2NSS. cirrhosis - likely secondary to MAE - Follows [facility] hepatology in [place] (Joan Monson MD) - MELD 21, Child-Miller 8 - per hepatology, not a good candidate for transplant given poor overall functional status - continue rifaximin and lactulose as above - hold Lasix and spironolactone given acute kidney injury - last albumin 2.8 type 2 diabetes - uses Dexcom at home - SSI w/ glargine while inpatient restless leg syndrome - continue home ropinirole Dispo: Levi ERWIN: DM2 diet. sodium bicarb in 1/2NSS 100 ml/hr. CODE STATUS: Full code DVT prophylaxis: Deferred at this time in setting of elevated INR and nosebleeds in setting of thrombocytopenia (2) UTI (urinary tract infection): (3) DM type 2 (diabetes mellitus, type 2): (4) Hyperlipidemia: (5) Restless leg syndrome: (6) Acute hyperkalemia: (7) Hyperkalemia: (8) Vertigo: Admission and Anticipated Discharge Date Admission Date: October 29, 2020 Supervising Physician Co-Signing Physician Notes I personally examined the patient and verified all constantino points of history and exam, discussed case, and agree with decision making with Dr Montoya. Still mentally feeling like herself. Creatinine continues to improve. Discusses dizzinessit is a spinning sensation worse whenever she turns her head to the side or sits up. There is been going on for years. She has not really had it evaluatedapparently once a few years ago she had somebody look in her ear give her antibiotics and eardrops, but she still has the same dizziness. Vitals noted, in general she is awake and alert pleasant no distress. HEENT normocephalic atraumatic mucous membranes moist. Breathing unlabored no accessory muscle use good effort. Skin shows no rashes no pallor or icterus. Neuro shows no focal deficits. While I cannot provoke nystagmus, flexing her head and rotating it to the right does cause her to close her eyes because of a dizzy sensation Metabolic encephalopathyprobably mixed picture largely hepatic encephalopathy, but also likely from dehydration. Continue HE medications, continue fluids, follow. Fortunately her mentation seems to be back to baseline. Once her creatinine is improved, she appears that she will be stable for home ARF on CKD 4seems to be largely from poor p.o. fluid intake by history. Continue IV fluids and followis improving. Metabolic acidosis related to this. BPPVsees ENT as an outpatient, would ask for referral for vestibular PT, outpatient follow-up. Subjective Patient is feeling fine. Epistaxis stopped at 3am. GOMEZ yesterday resolved after Tylenol. States urination in normal amounts. No SOB at rest. She is chronically orthopneic and is breathing ok on room air. Has 2L O2 at home for night time use. At PM rounds, patient mentions that she has chronically had some imbalance / room spinning-sensation worsened by movement. Review of Systems Review of Systems: Constitutional: Denies fever, chills Cardiovascular: Denies chest pain Respiratory: Denies shortness of breath at rest Gastrointestinal: Denies abdominal pain, nausea, vomiting, constipation, diarrhea Genitourinary: Denies dysuria Musculoskeletal: Denies weakness, muscle aches/pain, joint aches/pain Neurological: Denies focal weakness Physical Exam Physical Exam: General: Grossly A&O. NAD. Cooperative. HEENT: Atraumatic, normocephalic. Pulm: CTAB. -wheezes, -rales, -rhonchi. No respiratory distress. Cardiac: RRR, -mrg. No LE edema. Abdominal: Nontender, soft. Slightly andrews compared to yesterday's exam. Results & Data Results & Data ([facility]) Vital Signs (Past 12 Hours) Vital Signs Temp Pulse Resp BP Pulse Ox 10/31/20 22:43 36.8 C 72 16 159/58 H 96 10/31/20 20:30 73 16 179/75 H 99 Resident Activity Tracking Resident Involvement: Resident Care Provided Care Provided: Adult Hospital Medicine (1) DM type 2 (diabetes mellitus, type 2) Diabetes mellitus complication status: with hyperglycemia Diabetes mellitus keno terminal operator insulin use: without fdc use Qualified Code(s): E11.65 - Type 2 diabetes mellitus with hyperglycemia
[2020-11-01] MEDS: SODIUM BICARBONATE 650 MG TAB PO SCH ×2 (08:05→20:31)
[2020-11-01] MEDS: rifAXIMin 550 MG TABLET PO SCH ×2 (08:05→20:32)
[2020-11-01] MEDS: carvediloL 12.5 MG TAB PO SCH ×2 (08:06→20:31)
[2020-11-01] MEDS: FOLIC ACID 1 MG TAB PO SCH ×2 (08:06→20:30)
[2020-11-01] MEDS: MOMETASONE FUROATE 0.1% CR 15 GM TUBE EXT SCH (08:06)
[2020-11-01] MEDS: LACTULOSE SYRUP 30 GM/45 ML UDP PO SCH ×2 (08:07→20:29)
[2020-11-01] MEDS: PANTOprazole 40 MG TAB PO SCH ×2 (08:08→20:30)
[2020-11-01] MEDS: cefTRIAXone SODIUM 2,000 MG in DEXTROSE 5% 50 ML IV SCH (08:15)
[2020-11-01] MEDS: SODIUM BICARBONATE 8.4% 75 MEQ in SODIUM CHLORIDE 0.45 % 1,000 ML IV SCH ×2 (09:10→19:36)
[2020-11-01] MEDS: INSULIN ASPART 100 UNITS/ML 3 ML PEN SC SCH ×4 (09:11→20:39)
--- NOTE | 2020-11-01 10:24 | Nephrology Progress Note ---
Date of Service November 01, 2020 Assessment & Plan (1) Acute kidney injury: * Patient remains clinically volume contracted * Continue to hold Furosemide * Renal US 10/30/20: R 11.4cm, L 9.2cm. No hydronephrosis * Continue IV hydration. Cr has improved from 3.2-->2.6 * JAYLON due to diarrhea. Will use 0.45 NS w/ 50 mEq NaHCO3 for hydration * Monitor PRP (2) Chronic kidney disease, stage 4 (severe): * Baseline Cr 2.0 w/ EGFR 25 cc/min (3) Cystitis: * Urine culture + for Morganella. Patient has been treated w/ IV Ceftriaxone (4) Hepatic encephalopathy: * Improved following reinstitution of Lactulose therapy and addition of Rifaximin (5) Anemia: * Hgb has dropped 2g since admission. Consider blood transfusion to impro ve intravascular volume and maintain Hgb > 8.0 * Will check iron stores w/ am lab draw Admission and Anticipated Discharge Date Admission Date: October 29, 2020 Subjective Mrs. Sherman was seen & examined in her hospital room this morning. She reports that she is tolerating IV hydration without dyspnea, abdominal distention or worsening LE swelling Review of Systems Constitutional: no fever Eyes: no problem reported Ear, Nose, Mouth, Throat: no problem reported Respiratory: no dyspnea Cardiovascular: no chest pain and no edema Gastrointestinal: no abdominal pain Neurologic: no confusion Physical Exam Constitutional: + ill appearing; not in distress Eyes: PERRL ENMT: external ear and nose normal, oropharynx normal Neck: trachea midline, no thyromegaly Respiratory: normal respiratory effort, lungs clear to auscultation Cardiovascular: RRR, no murmur, no edema Gastrointestinal (Abdomen): normal bowel sounds, soft, nontender, no hepatosplenomegaly Musculoskeletal: Extremities: no cyanosis and no clubbing Skin: no rashes, warm and dry Neurologic: awake; not confused Results & Data ([facility]) Vital Signs (Past 12 Hours) Vital Signs Temp Pulse Resp BP Pulse Ox 11/01/20 07:17 36.9 C 69 18 145/59 H 97 10/31/20 22:43 36.8 C 72 16 159/58 H 96 Laboratory Tests 11/01/20 11/01/20 06:02 06:02 WBC 1.99 L Hgb 7.4 L Hct 22.1 L Plt Count 28 L* Sodium 144 Potassium 4.6 Chloride 120 H Carbon Dioxide 17 L BUN 54 H Creatinine 2.66 H D Glucose 99 Calcium 8.3 L Albumin 2.6 L PG Care Time/CCT Total # of Minutes Spent Total Time Spent with Patient: Total time spent is greater than 50% in coordination of care (as documented) at patient's floor/unit and/or counseling patient: Coding Level of Care Code 19462 Subseq Hosp Care Lvl 3 Diagnoses Acute kidney injury N17.9 Chronic kidney disease, stage 4 (severe) N18.4 Cystitis N30.90 Hepatic encephalopathy K72.90 Anemia D64.9
[2020-11-01] MEDS ORDERED: MICONAZOLE NITRATE POWDER 43 GM EXT PRN (10:35)
[2020-11-01] MEDS: rOPINIRole HCL 1 MG TABLET PO SCH ×2 (12:33→20:30)
--- NOTE | 2020-11-01 20:26 | Billing Data ---
Date of Service November 01, 2020 Coding Level of Care Code 74230 Subseq Hosp Care Lvl 3
[2020-11-01] MEDS: ACETAMINOPHEN 325 MG TAB PO PRN (20:28)
[2020-11-01] MEDS: INSULIN GLARGINE SOLOSTAR 100 UNITS/ML 3 ML PEN SQ SCH (20:37)
[2020-11-02] MEDS: SODIUM BICARBONATE 8.4% 75 MEQ in SODIUM CHLORIDE 0.45 % 1,000 ML IV SCH (06:00)
--- NOTE | 2020-11-02 07:05 | Hospitalist Progress Note ---
Date of Service November 02, 2020 Assessment & Plan (1) Acute metabolic encephalopathy: Angela Sherman is a 65 y/o female w/ hx of cirrhosis, ascites, CKD3, RLS, T2DM, pHTN, and recent UTI who presented for acute exacerbation of hepatic encephalopathy secondary to acute illness. metabolic encephalopathy - multifactorial: partial compliance cirrhosis meds, active UTI, dehydration, MAE cirrhosis - hyperammonemic on admission 185 --> downtrended to 56 (11/01), still stop trending - continue rifaximin 550mg BID and lactulose 30 BID chronic thrombocytopeniaand normocytic anemia - likely secondary to cirrhosis (decreased thrombopoietin. splenic sequestration) - platelets 34 on admission, baseline 30-50 past year. 28 on AM of 11/01. 26 AM of 11/02. - Hb 9.8->8.7->8.0->7.4->. some component is likely dilutional. - likely combination of anemia of chronic disease and iron deficiency anemia - Fe, tranferrinsat%, ferritin ok. 54//56.4 transferrin low at 172 - will not transfuse at this time (11/02) - reports chronic daily nosebleeds. monitor clinically. - patient follow hematology as an outpatient, but there are no records in [facility]. - consider iron supplementation. vertigo - chronic, present prior to admission - symptoms appear consistent w/ BPPV - outpatient f/u. pt already has upcoming ENT visit scheduled urinary tract infection -Morganella (resistant to Unasyn) and Gamma Strep on UC 10/26/20. 10/30 UC pending. - +urinary frequency/urgency on admission, +mild incontinence per nursing. denies dysuria on 11/01. - urine culture 3 types of jennifer, high counts, likely contaminant - continue IV ceftriaxone, aim for ~7 days. PO options for outpatient limited to FQ because of Morganella. acute kidney injury on chronic kidney disease 4 -follows with [facility] (last seen 10/[address] Galeano) - baseline creatinine ~1.6-2.0.Per nephrology, EGFR 25 cc/min - On admission - BUN 73/Cr 3.2/Ratio 22.4; eGFR 14.5 - h/o persistent, ongoing microscopic hematuria since at least 04/2019 - FeNa 1.5%, intrinsic etiology - nephro consulted: ryanarb and 1/2NSS. 11/02: nephro signed off. IVF stopped. cirrhosis - likely secondary to MAE - Follows [facility] hepatology in [place] (Joan Monson MD) - MELD 21, Child-Miller 8 - per hepatology, not a good candidate for transplant given poor overall functional status - continue rifaximin and lactulose as above - hold Lasix and spironolactone given acute kidney injury - last albumin 2.8 type 2 diabetes - uses Dexcom at home - SSI w/ glargine while inpatient restless leg syndrome - continue home ropinirole Dispo: Levi, tentative dispo 11/03. trending Cr. Continuing IV ceftriaxone for UTI FENGI: DM2 diet. sodium bicarb in 1/2NSS 100 ml/hr. CODE STATUS: Full code DVT prophylaxis: Deferred at this time in setting of elevated INR and nosebleeds in setting of thrombocytopenia (2) UTI (urinary tract infection): (3) DM type 2 (diabetes mellitus, type 2): (4) Hyperlipidemia: (5) Restless leg syndrome: (6) Acute hyperkalemia: (7) Hyperkalemia: (8) Vertigo: Admission and Anticipated Discharge Date Admission Date: October 29, 2020 Subjective No pain. Dizziness is milder today. Intermittent epistaxis, mild. Frontal midline headache, mild. Feels slightly weak, thinks related to her balance.. No lightheadedness. Patient states she has had multiple blood transfusions in past for symptomatic anemai and follows hematology. Currently, she feels her symptoms are milder than when she had required transfusion, last in 03/2020. Denies flank pain. Some lower middle back pain, attributes to the bed. Review of Systems Review of Systems: Constitutional: Denies fever, chills Eyes: Denies blurry vision Cardiovascular: Denies chest pain Respiratory: Denies shortness of breath Gastrointestinal: Denies abdominal pain, nausea, vomiting, constipation, diarrhea Genitourinary: Denies urinary symptoms including dysuria Musculoskeletal: Denies muscle aches/pain, joint aches/pain Neurological: Mild frontal headache near nasal bridge. Chronic mild paresthesias in feet, attributes to DM. Physical Exam Physical Exam: General: Grossly A&O. NAD. Cooperative. HEENT: Atraumatic, normocephalic. Pulm: CTAB. -wheezes, -rales, -rhonchi. No respiratory distress. Cardiac: RRR, -mrg. No LE edema. Abdominal: Nontender, nondistended, soft. Results & Data Results & Data ([facility]) Vital Signs (Past 12 Hours) Vital Signs Temp Pulse Pulse Resp BP BP Pulse Ox 11/01/20 22:35 37.0 C 73 16 134/68 98 11/01/20 20:33 78 22 155/71 H 97 Resident Activity Tracking Resident Involvement: Resident Care Provided Care Provided: Adult Hospital Medicine (1) DM type 2 (diabetes mellitus, type 2) Diabetes mellitus complication status: with hyperglycemia Diabetes mellitus residential insulin use: without residential use Qualified Code(s): E11.65 - Type 2 diabetes mellitus with hyperglycemia
[2020-11-02 07:56] LABS: Mean Corpuscular Hemoglobin 28.8 pg (25-34); Mean Corpuscular Hgb Conc 33.3 g/dL (32-36); Mean Corpuscular Volume 86.4 fL (80-100); Mean Platelet Volume 9.9 fL (7.4-10.4); RDW Standard Deviation 51.2 fL (36.4-46.3); Red Blood Count 2.43 M/uL (4.2-5.4); White Blood Count 2.13 K/uL (4.8-10.8)
[2020-11-02 08:08] LABS: BUN Creatinine Ratio 19.8 (10-20); Creatinine Clr Calc Pharmacy 22.6 ml/min; Est GFR (African American) 26.3; Est GFR (Non-African American) 22.7; Potassium 4.5 mmol/L (3.5-5.1)
[2020-11-02 08:13] LABS: Ferritin 56.4 ng/ml (8-388)
[2020-11-02] MEDS: FOLIC ACID 1 MG TAB PO SCH (08:56)
[2020-11-02] MEDS: LACTULOSE SYRUP 30 GM/45 ML UDP PO SCH (08:56)
[2020-11-02] MEDS: INSULIN ASPART 100 UNITS/ML 3 ML PEN SC SCH ×2 (08:56→13:18)
[2020-11-02] MEDS: rifAXIMin 550 MG TABLET PO SCH (08:56)
[2020-11-02] MEDS: SODIUM BICARBONATE 650 MG TAB PO SCH (08:56)
[2020-11-02] MEDS: carvediloL 12.5 MG TAB PO SCH (08:56)
[2020-11-02] MEDS: MOMETASONE FUROATE 0.1% CR 15 GM TUBE EXT SCH (08:57)
[2020-11-02] MEDS: PANTOprazole 40 MG TAB PO SCH (08:59)
[2020-11-02] MEDS: cefTRIAXone SODIUM 2,000 MG in DEXTROSE 5% 50 ML IV SCH (08:59)
--- NOTE | 2020-11-02 09:24 | Nephrology Progress Note ---
Date of Service November 02, 2020 Assessment & Plan (1) Acute kidney injury: * Patient now euvolemic and tolerating oral diet * Will stop IVF * Resume furosemide at the discretion of primary service/PCP * No further Nephrology evaluation indicated. Will sign off. Please call if further assistance is needed (2) Chronic kidney disease, stage 4 (severe): * Baseline Cr 2.0 w/ EGFR 25 cc/min (3) Cystitis: * Urine culture + for Morganella. Patient has been treated w/ IV Ceftriaxone (4) Hepatic encephalopathy: * Improved following reinstitution of Lactulose therapy and addition of Rifaximin (5) Anemia: * Hgb has dropped 2g since admission. Consider blood transfusion to improve intravascular volume and maintain Hgb > 8.0 * Iron saturation 22%, ferritin 56. No acute indication for IV iron therapy at this time Admission and Anticipated Discharge Date Admission Date: October 29, 2020 Subjective Mrs. Sherman was seen & examined in her hospital room this morning. She is tolerating a diet and now able to maintain oral hydration. She voices no new medical concerns Review of Systems Constitutional: no fever Eyes: no problem reported Ear, Nose, Mouth, Throat: no problem reported Respiratory: no dyspnea Cardiovascular: no chest pain and no edema Gastrointestinal: no abdominal pain Neurologic: no confusion Physical Exam Constitutional: not in distress Eyes: PERRL ENMT: external ear and nose normal, oropharynx normal Neck: trachea midline, no thyromegaly Respiratory: normal respiratory effort, lungs clear to auscultation Cardiovascular: RRR, no murmur, no edema Gastrointestinal (Abdomen): normal bowel sounds, soft, nontender, no hepatosplenomegaly Musculoskeletal: Extremities: no cyanosis and no clubbing Skin: no rashes, warm and dry Neurologic: awake; not confused Results & Data ([facility]) Vital Signs (Past 12 Hours) Vital Signs Temp Pulse Resp BP BP Pulse Ox 11/02/20 07:05 36.8 C 65 20 137/70 97 11/01/20 22:35 37.0 C 73 16 134/68 98 Laboratory Tests 11/02/20 11/02/20 07:02 07:02 WBC 2.13 L Hgb 7.0 L Hct 21.0 L Plt Count 26 L* Sodium 144 Potassium 4.5 Chloride 118 H Carbon Dioxide 19 L BUN 44 H Creatinine 2.22 H D Glucose 74 Calcium 8.0 L PG Care Time/CCT Total # of Minutes Spent Total Time Spent with Patient: Total time spent is greater than 50% in coordination of care (as documented) at patient's floor/unit and/or counseling patient: Coding Level of Care Code 35443 Subseq Hosp Care Lvl 3 Diagnoses Acute kidney injury N17.9 Chronic kidney disease, stage 4 (severe) N18.4 Cystitis N30.90 Hepatic encephalopathy K72.90 Anemia D64.9
[2020-11-02 10:48] LABS: Platelet Count 26 K/uL (130-400)
[2020-11-02] MEDS: rOPINIRole HCL 1 MG TABLET PO SCH (13:19)
--- NOTE | 2020-11-02 17:27 | Discharge Summary ---
Date of Service November 02, 2020 Admission HPI Per Admitting Provider Angela Sherman is a 65-year-old female with PMH significant for CKD, cirrhosis likely due to MAE, ascites, restless leg syndrome, type 2 diabetes, hyperlipidemia; presented to the ER with her earlier today for concerns of increasing confusion, and forgetfulness over the last several days. stated that patient had been feeling often forgetful more so than normal over the last several days since starting on antibiotics for urinary tract infection. Earlier this week had a urinalysis that demonstrated some bacteria abnormalities and was subsequently started on Keflex. Even during that time noted that her speech was more slowed than normal and she was having a harder time remembering even simple conversations from earlier in the day. Patient neurologist that she does feel off, and feels like this is similar to previous times when she is had to have her ammonia levels checked. Has been tolerating some of her oral meds, however with feelings of nausea and intermittent vomiting patient has not consistently been able to get her medications down and keep them down over the last week. As discontinued and the confusion/slurred speech continue to progress throughout the week has been de termined that she needed to get checked out further as he was concerned what all was happening. Admission Exam Per Admitting Provider Constitutional: WD/WN, vitals as above Eyes: PERRL, conjunctivae normal, anicteric sclerae ENMT: external ear and nose normal, oropharynx normal Respiratory: normal respiratory effort, lungs clear to auscultation Cardiovascular: Rate/Rhythm: regular rate and regular rhythm Heart Sounds: + murmur (soft systolic ejection murmur) Vessels: normal peripheral pulses; no JVD Gastrointestinal (Abdomen): Inspection/Auscultation: normal bowel sounds; abdomen not distended Percussion/Palpation: abdomen soft and + ascites; abdomen nontender, no guarding and no hepatosplenomegaly Psychiatric: Orientation: alert, oriented to person, oriented to place and cooperative; + not oriented to time Thought Process: + circumstantial thought process and + tangential thought process Principal Diagnosis hepatic encephalopathy and urinary tract infection Discharge Exam General: Grossly A&O. NAD. Cooperative. HEENT: Atraumatic, normocephalic. Pulm: CTAB. -wheezes, -rales, -rhonchi. No respiratory distress. Cardiac: RRR, -mrg. No LE edema. Abdominal: Nontender, nondistended, soft. Discharge Data Allergies Allergy/AdvReac Type Severity Reaction Status Date / Time sulfamethoxazole Allergy Intermediate RASH Verified 10/29/20 20:10 trimethoprim Allergy Intermediate RASH Verified 10/29/20 20:10 amlodipine AdvReac Intermediate confusion Verified 10/29/20 20:10 adhesive tape AdvReac Mild ITCHING Verified 10/29/20 20:10 Consultations 10/29/20 21:40 ED Decision to Admit Stat 11/01/20 20:25 Consult Case Management - Discharge Planning Routine Ordered Studies 10/29/20 19:34 CT head/brain wo con Stat 10/30/20 15:25 US renal/blad retro comp Routine Hospital Course (1) Acute metabolic encephalopathy: Angela Sherman is a 65 y/o female w/ hx of cirrhosis, ascites, CKD3, RLS, T2DM, pHTN, and recent UTI who presented for acute exacerbation of hepatic encephalopathy secondary to acute illness. Outpatient follow ups. PCP in [address] Galeano nephrology. [facility] hepatology. Outpatient hematology. Vestibular therapy. metabolic encephalopathy - multifactorial: partial compliance cirrhosis meds, active UTI, dehydration, MAE cirrhosis - hyperammonemic on admission 185 --> downtrended to 56 (11/01) - continue rifaximin 550mg BID and lactulose 30 BID as outpatient chronic thrombocytopeniaand normocytic anemia - likely secondary to cirrhosis (decreased thrombopoietin. splenic sequestrat ion) - platelets 34 on admission, baseline 30-50 past year. 28 on AM of 11/01. 26 AM of 11/02. - Hb 9.8->8.7->8.0->7.4->. some component is likely dilutional. - likely combination of anemia of chronic disease and iron deficiency anemia - Fe, tranferrins at%, ferritin ok. 54/22/56.4 transferrin low at 172 - continue outpatient hematology f/u - iron supplementation every other day as outpatient vertigo - chronic, present prior to admission - symptoms appear consistent w/ BPPV - outpatient f/u. pt already has upcoming ENT visit scheduled urinary tract infection -Morganella (resistant to Unasyn) and Gamma Strep on UC 10/26/20. 10/30 UC pending. - +urinary frequency/urgency on admission, +mild incontinence per nursing. denies dysuria on 11/01. - urine culture 3 types of jennifer, high counts, likely contaminant - completed 4 days of IV ceftriaxone. no further treatment indicated acute kidney injury on chronic kidney disease 4 -follows with [facility] Nephrology (last seen 10/[address] Galeano) - baseline creatinine ~1.6-2.0.Per nephrology, EGFR 25 cc/min - On admission - BUN 73/Cr 3.2/Ratio 22.4; eGFR 14.5 - h/o persistent, ongoing microscopic hematuria since at least 04/2019 - FeNa 1.5%, intrinsic etiology - nephro consulted: bicarb and 1/2NSS provided for several days during this admission. cirrhosis - likely secondary to MAE - Follows [facility] hepatology in [place] (Joan Monson MD) - MELD 21, Child-Miller 8 - per hepatology, not a good candidate for transplant given poor overall functional status - continue rifaximin and lactulose as above - held Lasix and spironolactone this admission given acute kidney injury; restart diuretics at discretion of outpatient nephro - last albumin 2.8 type 2 diabetes - uses Dexcom at home - SSI w/ glargine while inpatient; restart home meds at dispo restless leg syndrome - continued home ropinirole CODE STATUS: Full code (2) UTI (urinary tract infection): (3) DM type 2 (diabetes mellitus, type 2): (4) Hyperlipidemia: (5) Restless leg syndrome: (6) Hyperkalemia: (7) Vertigo: Total Time Total Time Spent Total Time Spent (In Minutes): <30 Discharge Plan Discharge Items Patient Disposition: Home - Self-Care Reason For Visit: HYPERAMMONEMIA Discharge Diagnosis: hepatic encephalopathy and acute kidney injury Activity: Per Instructions section Non-emergency contact: Primary Care Provider and Plug Saw Operator Call non-emergency contact if: you have any medication questions and you have a fever Follow-up/Referrals: Rocío Alonso DO [Primary Care Provider] - 11/07/20 10:45 am Phil Galeano DO [Physician] - (hosp f/u in 1 week. lasix held until evaluated by nephrology) Diet: Carb Consistent or DM2 and Low Sodium (2gm) Addtl Attending Provider Instructions: Gee Ms. Sherman, you were admitted to [facility] for symptoms from your cirrhosis. During this hospitalization, a urinary infection was treated with 4 days of IV antibiotics (Ceftriaxone). Your liver medications lactulose and rifaximin were continued and your ammonia levels trended down, w/ improvement. Your kidney function was worse than normal, so the nephrology service was consulted. You were given IV fluids, bicarbonate, and albumin. Your kidney function improved and by the day of discharge, was much closer to your normal. You mentioned that you had been having room spinning dizziness for a long time. I discussed outpatient vestibular therapy for this. I also recommended discussing the vertigo at your upcoming Ear Nose and Throat doctor appointment. You have anemia and both your blood counts and platelets are low. I did not transfuse any blood because you were minimally symptomatic. You had a prolonged nosebleed while here but we felt that the downsides of a transfusion would have outweighed the benefits at the time. I have prescribed oral iron supplement for you to take ever other day. Please follow up with Dr Galeano, your kidney doctor in 1-2 weeks. Please follow up with your liver doctor ( Hepatology [facility] in [place] (Joan Monson MD)) as well. Follow up with your primary care doctor. You will receive a call from vestibular therapy. If you do not hear back from your appointments in the next few days, please call to reconfirm. Please take your medications as prescribed and try not to miss the liver medications (lactulose 30 grams twice a day (45 ml of the liquid) and rifaximin 550 mg twice a day). Avoid taking over 2000 mg tylenol in a day because of your liver disease. A low sodium (<2g/day) diet is recommended because of your chronic kidney disease. See your doctor sooner if your symptoms worsen. If you notice worrisome symptoms such as as confusion, fever, or difficulty breathing, call for the emergency department. Pending Studies at Discharge: No Stand-Alone Forms: My [facility] U-NOTE, Smoking Cessation Medications and DC Order Prescriptions: New ferrous sulfate 325 mg (65 mg iron) tablet,delayed release (DR/EC) 325 mg PO Q OTHER DAY Qty: 30 RF: 2 Continued folic acid 1 mg tablet 1 mg PO BID Qty: 180 RF: 1 calcium carbonate-vitamin D3 [Oyster Shell Calcium-Vit D3] 500 mg(1,250mg) -20 0 unit tablet 1 tab PO QAM Qty: 90 RF: 1 Hold Instructions: Home Medication placed on hold at Doctor's office hydroxyzine HCl 10 mg tablet 10 mg PO QID PRN (Reason: anxiety) Qty: 30 RF: 3 pantoprazole 40 mg tablet,delayed release (DR/EC) 40 mg PO BID Qty: 180 RF: 3 carvedilol 12.5 mg tablet 12.5 mg PO BID Qty: 180 RF: 1 sodium bicarbonate 650 mg tablet 1,300 mg PO BID Qty: 120 RF: 3 insulin aspart U-100 [Novolog Flexpen U-100 Insulin] 100 unit/mL (3 mL) insulin pen See Rx Instructions SQ TID RF: 0 Basaglar KwikPen U-100 Insulin 100 unit/mL (3 mL) insulin pen 15 unit subcut HS Qty: 1 RF: 5 clotrimazole-betamethasone 1-0.05 % cream 1 applic topical BID PRN (Reason: Skin Irritation) RF: 0 lactulose 20 gram/30 mL solution 45 ml PO BID RF: 0 Xifaxan 550 mg tablet 550 mg PO BID RF: 0 Forteo 20 mcg/dose - 600 mcg/2.4 mL pen injector 20 mcg SQ QAM RF: 0 mometasone 0.1 % cream 1 appln TOP QAM RF: 0 calcitriol 0.25 mcg capsule 0.25 mcg PO 3XWK RF: 0 Hold Instructions: Home Medication placed on hold at Doctor's office ropinirole 2 mg tablet 1 mg PO .QAFTERNOON RF: 0 ropinirole 2 mg Tablet 2 mg PO HS RF: 0 Discontinued cephalexin 250 mg capsule 250 mg PO BID Qty: 10 RF: 0 furosemide 20 mg tablet 20 mg PO DAILY RF: 0 acetaminophen [Tylenol Extra Strength] 500 mg Tablet 500 mg PO Q6H PRN (Reason: Pain) RF: 0 Discharge Orders: Discharge Order (Routine); Ordered 11/02/20 Ordered By: Cleveland Montoya Admission Data Admit Date/Time: 10/29/20 22:29 Attending Provider: Williams Galvez Admit Provider: iRcco Patterson Primary Care Provider: Rocío Alonso Other Providers: Anand Wagner ; Jimenez,Adriana Other Interventions: Discharge Summary Assessment (RN) Last Done: 11/02/20 16:02 Supervising Physician Co-Signing Physician Notes I personally examined the patient and verified all constantino points of history and exam, discussed case, and agree with decision making with Dr Montoya. feeling good, feeling up to going home Vitals noted, in general she is awake and alert pleasant no distress. HEENT normocephalic atraumatic mucous membranes moist. Breathing unlabored no accessory muscle use good effort. Skin shows no rashes no pallor or icterus. Neuro shows no focal deficits. Metabolic encephalopathyprobably mixed picture largely hepatic encephalopathy, but also likely from dehydration. Continue HE medications, PO fluids. Her mentation seems to be back to baseline. ARF on CKD 4seems to be largely from poor p.o. fluid intake by history. Cr has improved to where it is safe for home/ outpt f/u [facility] as an outpatient, would ask for referral for vestibular PT, outpatient follow-up. Resident Activity Tracking Resident Involvement: Resident Care Provided Care Provided: Adult Hospital Medicine
--- NOTE | 2020-11-02 18:05 | Billing Data ---
Date of Service November 02, 2020 Coding Level of Care Code D/C Day Management <30 mins
== END 2020-11-02 18:18 | disposition home or self-care (01) | DRG 441 ==
LOC: ED 18:57 → SUATTDRO 22:29 → 3N 22:29

== ENCOUNTER 2020-11-12 10:28 | Inpatient (IN) ==
[2020-11-12] MEDS ORDERED: SODIUM CHLORIDE 0.9% 1000ML 500 ML IV ONE (11:44)
--- NOTE | 2020-11-12 11:54 | Emergency Department Note ---
History of Present Illness General Chief complaint: Rectal Bleed Stated complaint: BLOOD IN URINE AND STOOL Time Seen by Provider: 11/12/20 11:17 History of Present Illness This patient is a pleasant 65-year-old female the presents ambulatory to the emergency department with complaints of rectal bleeding that started yesterday. The bleeding is bright red blood in the stool which is soft. She denies any significant rectal pain. No abdominal pain reported. No nausea or vomiting. She denies any dizziness, however notes that she has been slightly short of breath. The patient was recently put back on Lasix for a history of CHF at 20 mg. She has been taking this with no relief of the difficulty breathing. She denies any chest pain. No fever or chills reported. Home Medications Medication Instructions Recorded Confirmed Type teriparatide 20 mcg/dose (600 20 mcg SQ QAM 02/03/20 11/12/20 History mcg/2.4 mL) subcutaneous pen injector mometasone 1 appln TOP QAM 03/20/20 11/12/20 History folic acid 1 mg tablet 1 mg PO BID #180 tab 04/28/20 11/12/20 Rx insulin aspart U-100 100 unit/mL See Rx Instructions SQ TID ml 06/08/20 11/12/20 History (3 mL) subcutaneous pen insulin glargine 100 unit/mL (3 15 unit SUBCUT HS #1 box 06/08/20 11/12/20 Rx mL) subcutaneous pen calcium carbonate 500 mg (1,250 1 tab PO QAM #90 tab 07/08/20 11/12/20 Rx mg)-vitamin D3 200 unit tablet clotrimazole-betamethasone 1 1 applic TOPICAL BID PRN g 08/26/20 11/12/20 History %-0.05 % topical cream lactulose 20 gram/30 mL oral 45 ml PO BID ml 08/26/20 11/12/20 History solution hydroxyzine HCl 10 mg tablet 10 mg PO QID PRN #30 tab 08/31/20 11/12/20 Rx carvedilol 12.5 mg tablet 12.5 mg PO BID #180 tab 09/09/20 11/12/20 Rx pantoprazole 40 mg tablet,delayed 40 mg PO BID #180 tab 09/09/20 11/12/20 Rx release calcitriol 0.25 mcg PO 3XWK 10/24/20 11/12/20 History rifaximin 550 mg tablet 550 mg PO BID 10/24/20 11/12/20 History ropinirole 1 mg PO .QAFTERNOON 10/24/20 11/12/20 History ropinirole 2 mg PO HS 10/24/20 11/12/20 History ferrous sulfate 325 mg PO Q OTHER DAY #30 tab 11/02/20 11/12/20 Rx furosemide 20 mg tablet 20 mg PO DAILY #30 tab 11/07/20 11/12/20 Rx sodium bicarbonate 650 mg tablet 1,300 mg PO BID tab 11/07/20 11/12/20 History Allergies Allergy/AdvReac Type Severity Reaction Status Date / Time sulfamethoxazole Allergy Intermediate RASH Verified 11/07/20 10:31 trimethoprim Allergy Intermediate RASH Verified 11/07/20 10:31 amlodipine AdvReac Intermediate confusion Verified 11/07/20 10:31 adhesive tape AdvReac Mild ITCHING Verified 11/07/20 10:31 Past Med/Surg History Medical History Acute hyperkalemia Anemia of chronic disease Anxiety Chronic kidney disease, stage 4 (severe) Diabetic nephropathy associated with type 2 diabetes mellitus Diverticular disease Duodenal ulcer Esophageal varices Gastric ulcer GERD (gastroesophageal reflux disease) History of GI bleed History of recent blood transfusion (~06/2019) Hyperkalemia Hyperlipidemia Hypertension Hypertension Iron deficiency anemia Liver cirrhosis 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 Shivani Carmen- EGD History of anesthesia reaction difficult to wake after bladder tack sx History of bilateral cataract extraction History of bladder surgery bladder tack History of colonoscopy History of esophagogastroduodenoscopy (EGD) multiple---last 06/22/19 Dr. Malena Marie at [facility] [place], [place] History of hemiarthroplasty of right shoulder January 2018 post fracture History of repair of right rotator cuff History of revision of total shoulder arthroplasty (12/29/18) Right shoulder, 12/29/18 History of shoulder surgery (~11/2019) Had right total arthroplasty removed 11/2019 History of tooth extraction all teeth S/P ORIF (open reduction internal fixation) fracture R shoulder, January 2018 S/P shoulder surgery (11/18/19) R TSA removal, I&D, placement of abx spacer Family History Grandmother (Paternal) Family history of diabetes mellitus Father COPD (chronic obstructive pulmonary disease) Mother Hypertension Family/Other Cancer Sister Ovarian cancer Denies family history of Prostate cancer Myocardial infarction Breast cancer Colorectal cancer Social History Smoking Status: Former smoker Tobacco Type: Cigarettes Second Hand Exposure: No; Hx Alcohol Use: No Hx Substance Use: No Preferred Language: Icelandic Communication Ability: Effective Visual Impairment: Limited Hearing Ability: Normal 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 Required: No Beliefs That Will Affect Care: None marital status: Current Living Situation: Spouse Current Living Situation Comment: Lives with and son current occupational status: retired Other Information That Helps Us Care for You: No Feels Safe at Home: Yes Safety Concerns: Feels Safe At This Time Childhood Exposure to Second-Hand Smoke: Yes Diet Comment: regular Dental Care, Regularly: No Physical Activity Frequency: Does not Exercise Seatbelt Use: always Sunscreen Use: Yes Assistive Devices: Cane Review of Systems A total of 10 systems reviewed and were otherwise negative Physical Exam Vital Signs Vital Signs - 24 hr 11/12/20 11:06 11/12/20 11:30 11/12/20 11:47 Temperature 36.7 C Temperature Source Oral Pulse Rate 63 63 63 Pulse Rate from SpO2 Sensor Respiratory Rate 18 18 21 Blood Pressure 158/67 H 179/76 H Blood Pressure Mean 97 110 Blood Pressure Position Pulse Oximetry 98 97 Oxygen Delivery Method Room Air Sepsis Recent Fever Within 48 Hours No Sepsis New/Unexplained Change in Mental Status No Sepsis Action Taken by Nursing No Action Required 11/12/20 12:00 11/12/20 12:30 11/12/20 13:00 Temperature Temperature Source Pulse Rate 64 60 61 Pulse Rate from SpO2 Sensor 59 L 61 Respiratory Rate 20 18 17 Blood Pressure Blood Pressure Mean Blood Pressure Position Pulse Oximetry 97 97 Oxygen Delivery Method Sepsis Recent Fever Within 48 Hours Sepsis New/Unexplained Change in Mental Status Sepsis Action Taken by Nursing 11/12/20 13:25 11/12/20 13:26 11/12/20 13:30 Temperature 36.5 C Temperature Source Oral Pulse Rate 64 66 64 Pulse Rate from SpO2 Sensor 66 64 Respiratory Rate 18 18 19 Blood Pressure 173/83 H 173/83 H 165/68 H Blood Pressure Mean 113 113 100 Blood Pressure Position Lying Pulse Oximetry 97 97 97 Oxygen Delivery Method Sepsis Recent Fever Within 48 Hours Sepsis New/Unexplained Change in Mental Status Sepsis Action Taken by Nursing 11/12/20 13:31 11/12/20 13:45 11/12/20 14:00 Temperature 36.6 C 36.6 C Temperature Source Oral Oral Pulse Rate 65 65 63 Pulse Rate from SpO2 Sensor 65 64 64 Respiratory Rate 19 20 15 Blood Pressure 164/65 H 174/89 H Blood Pressure Mean 98 117 Blood Pressure Position Lying Lying Pulse Oximetry 98 97 97 Oxygen Delivery Method Sepsis Recent Fever Within 48 Hours Sepsis New/Unexplained Change in Mental Status Sepsis Action Taken by Nursing 11/12/20 14:01 Temperature Temperature Source Pulse Rate 63 Pulse Rate from SpO2 Sensor 63 Respiratory Rate 18 Blood Pressure 174/89 H Blood Pressure Mean 117 Blood Pressure Position Pulse Oximetry 97 Oxygen Delivery Method Sepsis Recent Fever Within 48 Hours Sepsis New/Unexplained Change in Mental Status Sepsis Action Taken by Nursing Constitutional WD/WN, vitals as above Eyes EOM intact bilaterally ENMT external ear and nose normal, oropharynx normal Neck trachea midline Respiratory normal respiratory effort, lungs clear to auscultation Cardiovascular RRR, no murmur, no edema Gastrointestinal (Abdomen) normal bowel sounds, soft, nontender, no hepatosplenomegaly RECTAL: No external hemorrhoids noted. No fissures or abscesses palpated. Good sphincter tone. Guaiac positive. Musculoskeletal no cyanosis or clubbing, extremities motor strength 5/5 Skin no rashes, warm and dry Neurologic Alert and oriented x3. No focal motor deficits. Psychiatric Acting appropriately Course Course Patient was seen and examined Vital signs including blood pressure were reviewed medications list was verified with patient Labs were obtained, and a saline lock was established An order was placed for continuous cardiac monitoring. The monitor shows a rate of 62 with normal sinus rhythm." The patient was discussed with my supervising physician in addition to the admitting team. They agreed to evaluate the patient for possible inpatient management. The patient was updated and comfortable with the plan. She remained stable in the emergency department. Consultations Consultation #1: Hospitalist Administered Medications Insulin Aspart (Insulin Aspart 100 Units/Ml 3 Ml Pen) 0 units SC Q6 BOBBY Stop: 12/12/20 17:59 Last Admin: 11/12/20 17:42 Dose: Not Given Documented by: [id number] Cosigned by: [id number] Ropinirole HCl (Ropinirole Hcl 1 Mg Tablet) 1 mg PO DAILY@1400 BOBBY Stop: 12/12/20 16:18 Last Admin: 11/12/20 17:35 Dose: 1 mg Documented by: [id number] Discontinued Medications Sodium Chloride (Nss 1000ml) 500 mls @ 999 mls/hr IV .Q31M ONE Stop: 11/12/20 12:14 Last Admin: 11/12/20 16:53 Dose: Not Given Documented by: [id number] Pantoprazole Sodium 40 mg/ (Dextrose) 100 mls @ 20 mls/hr IV Q5H BOBBY Stop: 12/12/20 13:14 Last Admin: 11/12/20 14:14 Dose: Not Given Documented by: [id number] Ioversol (Ioversol 100ml) 93 ml IV ONCE ONE Stop: 11/12/20 11:56 Last Admin: 11/12/20 11:55 Dose: 93 ml Documented by: [id number] Medical Decision Making Medical Records Attestation: I reviewed the patient's medical records. Home Medications Current Medication List: was personally reviewed by me Laboratory Data Attestation: I reviewed the patient's lab results. Result diagrams: 11/12/20 18:57 11/12/20 11:59 Lab Results 11/12/20 11/12/20 11/12/20 Range/Units 11:59 11:59 11:59 WBC 1.99 L (4.8-10.8) K/uL RBC 2.08 L (4.2-5.4) M/uL Hgb 6.1 L* (12.0-16.0) g/dL Hct 18.7 L* (37-47) % MCV 89.9 (80-100) fL MCH 29.3 (25-34) pg MCHC 32.6 (32-36) g/dL RDW Std Deviation 58.6 H (36.4-46.3) fL RDW Coeff of Karina 17.7 H (11.5-14.5) % Plt Count 37 L (130-400) K/uL MPV 9.5 (7.4-10.4) fL Immature Gran % (Auto) 0.5 % Neut % (Auto) 68.9 % Lymph % (Auto) 26.1 % Owen % (Auto) 1.0 % Eos % (Auto) 3.0 % Baso % (Auto) 0.5 % Neut # (Auto) 1.37 L (1.4-6.5) K/uL Lymph # (Auto) 0.52 L (1.2-3.4) K/uL Owen # (Auto) 0.02 L (0.11-0.59) K/uL Eos # (Auto) 0.06 (0-0.5) K/uL Baso # (Auto) 0.01 (0-0.2) K/uL Immature Gran # (Auto) 0.01 (0.00-0.02) K/uL PT 12.6 H (9.0-12.0) Seconds INR 1.3 H (0.9-1.1) Sodium 147 H (136-145) mmol/L Potassium 4.9 (3.5-5.1) mmol/L Chloride 123 H (98-107) mmol/L Carbon Dioxide 20 L (21-32) mmol/L Anion Gap 4.0 (3-11) BUN 54 H (7-18) mg/dl Creatinine 1.88 H (0.6-1.2) mg/dl Est Cr Clr Drug Dosing 27.5 ml/min Est GFR ( Amer) 32.1 Est GFR (Non-Af Amer) 27.7 BUN/Creatinine Ratio 28.5 H (10-20) Glucose 134 H (70-99) mg/dl Calcium 8.2 L (8.5-10.1) mg/dl Phosphorus 3.1 (2.5-4.9) mg/dl Magnesium 2.8 H (1.8-2.4) mg/dl Total Bilirubin 0.8 (0.2-1) mg/dl AST 28 (15-37) U/L ALT 26 (12-78) U/L Alkaline Phosphatase 147 H (45-117) U/L Troponin I < 0.015 (0-0.045) ng/ml Total Protein 7.0 (6.4-8.2) gm/dl Albumin 2.8 L (3.4-5.0) gm/dl Globulin 4.2 H (2.5-4.0) gm/dl Albumin/Globulin Ratio 0.7 L (0.9-2) COVID-19 Eval Order SARS-CoV-2 (PCR) (Negative) Influenza Type A (PCR) (Neg) Influenza Type B (PCR) (Neg) RSV (RT-PCR) (Neg) Blood Type Antibody Screen Crossmatch 11/12/20 11/12/20 11/12/20 Range/Units 11:59 13:51 13:51 WBC (4.8-10.8) K/uL RBC (4.2-5.4) M/uL Hgb (12.0-16.0) g/dL Hct (37-47) % MCV (80-100) fL MCH (25-34) pg MCHC (32-36) g/dL RDW Std Deviation (36.4-46.3) fL RDW Coeff of Karina (11.5-14.5) % Plt Count (130-400) K/uL MPV (7.4-10.4) fL Immature Gran % (Auto) % Neut % (Auto) % Lymph % (Auto) % Owen % (Auto) % Eos % (Auto) % Baso % (Auto) % Neut # (Auto) (1.4-6.5) K/uL Lymph # (Auto) (1.2-3.4) K/uL Owen # (Auto) (0.11-0.59) K/uL Eos # (Auto) (0-0.5) K/uL Baso # (Auto) (0-0.2) K/uL Immature Gran # (Auto) (0.00-0.02) K/uL PT (9.0-12.0) Seconds INR (0.9-1.1) Sodium (136-145) mmol/L Potassium (3.5-5.1) mmol/L Chloride (98-107) mmol/L Carbon Dioxide (21-32) mmol/L Anion Gap (3-11) BUN (7-18) mg/dl Creatinine (0.6-1.2) mg/dl Est Cr Clr Drug Dosing ml/min Est GFR ( Amer) Est GFR (Non-Af Amer) BUN/Creatinine Ratio (10-20) Glucose (70-99) mg/dl Calcium (8.5-10.1) mg/dl Phosphorus (2.5-4.9) mg/dl Magnesium (1.8-2.4) mg/dl Total Bilirubin (0.2-1) mg/dl AST (15-37) U/L ALT (12-78) U/L Alkaline Phosphatase (45-117) U/L Troponin I (0-0.045) ng/ml Total Protein (6.4-8.2) gm/dl Albumin (3.4-5.0) gm/dl Globulin (2.5-4.0) gm/dl Albumin/Globulin Ratio (0.9-2) COVID-19 Eval Order CovFluRsv at [facility] SARS-CoV-2 (PCR) NEGATIVE (Negative) Influenza Type A (PCR) Negative (Neg) Influenza Type B (PCR) Negative (Neg) RSV (RT-PCR) Negative (Neg) Blood Type O Positive Antibody Screen NEGATIVE Crossmatch See Detail Imaging Data Attestation: I personally reviewed and interpreted this imaging study as follows: Radiologist's Impression: CT abdomen and pelvis Redemonstration of the cirrhosis with evidence of portal hypertension demonstrated by splenomegaly and upper abdominal varices. 2. Interval progression of the body wall edema, bilateral pleural effusions, and trace ascites. 3. Mild gallbladder wall thickening/edema. This is likely due to the patient's edematous state. There are few small gallstones. 4. No definite bowel wall thickening or obstruction. 5. Bilateral nephrolithiasis. No hydronephrosis. 6. Fat-containing lower left anterior abdominal wall hernia. ACT 112: Negative or not required by law. Electronically signed by: James Murillo M.D. 11/12/2020 1:31 PM Dictated: 11/12/20 1323Transcribed: 11/12/20 1323 Chest x-ray Mild pulmonary vascular congestion and trace bilateral pleural effusions. This has slightly progressed. ACT 112: Negative or not required by law. Electronically signed by: James Murillo M.D. 11/12/2020 1:34 PM Dictated: 11/12/20 1333Transcribed: 11/12/20 1333 ECG Data Attestation: I personally reviewed and interpreted this ECG as follows: Indication: + SOB/dyspnea Rate (beats per minute): 65 Rhythm: + normal sinus Additional Comments: No ST elevation or depression noted. No change when compared to prior EKG on 10/29/2020 Blood Pressure Blood Pressure Findings: Elevated blood pressure Blood Pressure Disposition: elevated BP felt to be situational MDM Narrative Differential diagnosis: GI bleed, hemorrhoids, anemia, cardiac ischemia, heart failure, electrolyte abnormality, dehydration, among others were considered This patient is a 65-year-old female who presents emergency department with a main complaint of bright red blood per rectum. On exam, her abdomen was fairly benign. Her vital signs were stable. She did not have any signs of hemorrhoids on exam. She was grossly positive for blood on her guaiac. A work-up was performed. Labs reveal significant anemia. CT was performed. This is consistent with cirrhosis and varices. She also has pleural effusions. For these reasons, I do not feel comfortable sending this patient home. She was ordered to units of packed RBCs. She remained stable in the emergency d epartment, and will be evaluated by the hospitalist service for likely inpatient management. Attending Attestation: I Jonah Sibley MD independently saw and evaluated this patient and agree with history and physical is otherwise documented by the physician assistant terminal manager. S ee their note for full details. Patient with soft abdomen on exam without tenderness and she denies abdominal pain. Blood consent obtained and transfusion begun given anemia. PPI ggt ordered. Patient with extensive GI and GI bleed hx. Hemodynamically stable while in ED. Hospitalist to admit. Impression & Plan GI bleed Discharge Plan Visit Data Chief Complaint: Rectal Bleed Stated Complaint: BLOOD IN URINE AND STOOL ED Provider: Jonah Sibley ED Midlevel Provider: Lupe Nichols Discharge Problem: GI bleed Patient Disposition: Admitted As Inpatient Discharge Instructions Interventions: ED Discharge Assessment Last Done: 11/12/20 15:42
[2020-11-12] MEDS ORDERED: OPTIRAY 320 100ml IV ONE (11:55)
[2020-11-12 12:24] LABS: Hematocrit (blood only) 18.7 % (37-47); Hemoglobin 6.1 g/dL (12.0-16.0); Mean Corpuscular Hemoglobin 29.3 pg (25-34); Mean Corpuscular Hgb Conc 32.6 g/dL (32-36); Mean Corpuscular Volume 89.9 fL (80-100); Mean Platelet Volume 9.5 fL (7.4-10.4); Platelet Count 37 K/uL (130-400); RDW Coefficient of Variation 17.7 % (11.5-14.5); RDW Standard Deviation 58.6 fL (36.4-46.3); Red Blood Count 2.08 M/uL (4.2-5.4); White Blood Count 1.99 K/uL (4.8-10.8)
[2020-11-12 12:25] LABS: INR 1.3 (0.9-1.1); Prothrombin Time 12.6 Seconds (9.0-12.0)
[2020-11-12] MEDS ORDERED: SODIUM CHLORIDE 0.9% 250 ML IV PRN (12:28)
[2020-11-12 12:30] LABS: Basophils # (auto) 0.01 K/uL (0-0.2); Basophils % (auto) 0.5 %; Eosinophils # (auto) 0.06 K/uL (0-0.5); Immature Granulocytes # (auto) 0.01 K/uL (0.00-0.02); Immature Granulocytes % (auto) 0.5 %; Lymphocytes # (auto) 0.52 K/uL (1.2-3.4); Lymphocytes % (auto) 26.1 %; Monocytes # (auto) 0.02 K/uL (0.11-0.59); Neutrophils # (auto) 1.37 K/uL (1.4-6.5); Neutrophils % (auto) 68.9 %
[2020-11-12 12:31] LABS: Alanine Aminotransferase 26 U/L (12-78); Albumin Level 2.8 gm/dl (3.4-5.0); Aspartate Aminotransferase 28 U/L (15-37); BUN Creatinine Ratio 28.5 (10-20); Blood Urea Nitrogen 54 mg/dl (7-18); Calcium 8.2 mg/dl (8.5-10.1); Carbon Dioxide 20 mmol/L (21-32); Chloride 123 mmol/L (98-107); Creatinine Clr Calc Pharmacy 27.5 ml/min; Est GFR (African American) 32.1; Est GFR (Non-African American) 27.7; Glucose 134 mg/dl (70-99); Magnesium 2.8 mg/dl (1.8-2.4); Potassium 4.9 mmol/L (3.5-5.1); Sodium 147 mmol/L (136-145)
[2020-11-12 12:36] LABS: Albumin Globulin Ratio 0.7 (0.9-2); Alkaline Phosphatase 147 U/L (45-117); Bilirubin,Total 0.8 mg/dl (0.2-1); Globulin 4.2 gm/dl (2.5-4.0); Phosphorus 3.1 mg/dl (2.5-4.9); Troponin I < 0.015 ng/ml (0-0.045)
[2020-11-12] MEDS ORDERED: PANTOprazole 40 MG in DEXTROSE 5% 100 ML IV SCH (13:15)
--- NOTE | 2020-11-12 13:27 | Electrocardiogram Report ---
Test Reason : Blood Pressure : / mmHG Vent. Rate : 065 BPM Atrial Rate : 065 BPM P-R Int : 192 ms QRS Dur : 084 ms QT Int : 440 ms P-R-T Axes : 075 057 032 degrees QTc Int : 457 ms Normal sinus rhythm Nonspecific ST abnormality Abnormal ECG When compared with ECG of 29-OCT-2020 19:44, T wave inversion no longer evident in Lateral leads Confirmed by Adam Mcgraw ([id number]) on 11/12/2020 1:27:12 PM Referred By: REFERRED SELF Confirmed By:Adam Mcgraw
--- NOTE | 2020-11-12 13:32 | CT Scan Report ---
ABDOMEN AND PELVIS CT WITHOUT CONTRAST CT DOSE: 947.54 mGy.cm HISTORY: GI bleed. TECHNIQUE: Multiaxial CT images of the abdomen and pelvis were performed without contrast. A dose lo wering technique was utilized adhering to the principles of ALARA. COMPARISON STUDY: Abdomen and pelvis CT 03/20/2020. FINDINGS: Small left and trace right pleural effusions. Patchy densities at the lung bases posteriorl y favor atelectasis from the pleural effusions. No pneumoperitoneum. No pneumatosis. Moderate body wa ll edema. Fat-containing moderate-sized lower midline abdominal wall hernia, unchanged. The bladder, uterus, bilateral adnexa are within normal limits. Cirrhotic liver with splenomegaly and multiple upp er abdominal/paraesophageal varicosities are again noted. This is similar to the prior study. Subcent imeter hypodense lesions within the right hepatic lobe are too small to characterize. Cholelithiasis. The adrenal glands are unremarkable. A few punctate bilateral renal calculi. No hydronephrosis. Trac e perihepatic ascites. The unenhanced pancreas is stable. Mild gallbladder wall edema. This may be du e to the sclerotic liver. Suboptimal evaluation for bowel pathology due to the lack of intravenous an d oral contrast. However, no definite bowel wall thickening or obstruction. Normal appendix. IMPRESSION: 1. Redemonstration of the cirrhosis with evidence of portal hypertension demonstrated by splenomegaly and upper abdominal varices. 2. Interval progression of the body wall edema, bilateral pleural effusions, and trace ascites. 3. Mild gallbladder wall thickening/edema. This is likely due to the patient's edematous state. There are few small gallstones. 4. No definite bowel wall thickening or obstruction. 5. Bilateral nephrolithiasis. No hydronephrosis. 6. Fat-containing lower left anterior abdominal wall hernia. ACT 112: Negative or not required by law. Electronically signed by: James Murillo M.D. 11/12/2020 1:31 PM
--- NOTE | 2020-11-12 13:35 | XRay Report ---
XR chest 1V portable HISTORY: Shortness of breath. COMPARISON: Chest 10/29/2020. FINDINGS: Postoperative changes again noted within the right shoulder. No pneumothorax. The heart rem ains enlarged. Trace bilateral pleural effusions. There is mild pulmonary vascular congestion without overt edema. This has slightly progressed. No new focal lung consolidations to suggest pneumonia. IMPRESSION: Mild pulmonary vascular congestion and trace bilateral pleural effusions. This has slightly progresse d. ACT 112: Negative or not required by law. Electronically signed by: James Murillo M.D. 11/12/2020 1:34 PM
--- NOTE | 2020-11-12 14:15 | History & Physical Report ---
Date of Service November 12, 2020 Assessment & Plan (1) Anemia: Patient with chronic history of anemia as well as chronically ill; feel that her reports are from her internal hemorrhoids and her chronic anemia is multifactorial. - Currently do not feel that her anemia is due to acute loss - Doubt upper source as BUN is not much above her baseline- continue with oral PPI - Will transfuse to goal of HGB 8 as previously recommended - Troponin < 0.015 so no demand increase in MVO2 related to anemia - Follow her renal indices and hemodynamic response to resuscitation - Maintain two IV at all times that are capable of being used for transfusion (20G or larger) Patient with out elia blood on exam as well as overall no large occult bleeding. Replace as above. If patient hemodynamics change or does not respond to therapy will adjust therapy. Patient with known diverticula and no active bleeding seen on CT of the abdomen and pelvis; although study suboptimal without contrast... - Previous EGD with stomach AVM clipping, grade II varices (04/07), stomach ulcers, and diverticula as above. 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 - Follow chronicity with Renal failure and HCO3 loss with lactulose likely. (6) DM type 2 (diabetes mellitus, type 2): NPO glycemic pharmacy consult Goal <180 (7) Hypertension: Continue home carvedilol, will re-initiate diuretics after blood transfusion and ensure not acute blood loss - HR 60's - Carvedilol tonight if remains hemodynamically stable as BP 170/50's on admission (8) 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: As above multi-therapeutic staged approach with volume and diuretics: Continue lactulose and Rifaximin - currently no acute needs - Her Child CHAPA remains 6 and unchanged - Her MELD remains 15 unchanged - moshe and INR are not increased (9) CHF (congestive heart failure): As above - no acute needs (10) Pancytopenia: Combination of MAE, hyperslpenism, AOCD, Renal disease, and FE deficiency - Will transfuse 1 six pack of platelets with her nose bleeds and this ? GI source loss - Follow (11) Restless leg syndrome: No acute needs, continue ropinirole (12) Hypernatremia: Chronic with her lactulose therapy - continue to balance her free water needs, kidney function, and diuretics - Challenging fluid volume patient. History of Present Illness Chief Complaint: shortness of breath and blood in toilet Primary Care Provider: Rocío Alonso, DO 65 YOF with significant medical history of CKD, MAE cirrhosis, ascites, RLS, DM II, HLD, Chronic iron deficiency anemia, hfPref, chronic thrombocytopenia, CKD III. MELD 15, Child CHAPA- 6. Patient was recently discharged following admission for metabolic encephalopathy with increased ammonia and UTI. Patient comes in today for increase in her dyspnea and noted with her BM today that there was blood in the toilet, on her toilet paper and some streaking in her stool, but no clots. It was reported as small on her toilet paper, she had a guaiac test in the EMD that was positive, but no elia blood on the finger. She has also been having nose bleeds for the past 2 weeks as well with clots. She was anemic on discharge and did receive blood products las admission for 2 point HGB drop a that time. HGB at 7.0 on discharge. Patient denies any abdominal pain and her stools are chronically dark with her iron. Patient is very hemodynamically stable on evaluation, skin is warm and strong peripheral pulses, still appears volume contracted on her labs. Patient will be brought in monitored on telemetry, given 2 units of PRBC for goal of HGB 8, 1 six pack of platelets, and following of her intravascular volume and response. Allergies Allergy/AdvReac Type Severity Reaction Status Date / Time sulfamethoxazole Allergy Intermediate RASH Verified 11/07/20 10:31 trimethoprim Allergy Intermediate RASH Verified 11/07/20 10:31 amlodipine AdvReac Intermediate confusion Verified 11/07/20 10:31 adhesive tape AdvReac Mild ITCHING Verified 11/07/20 10:31 Home Medications Medication Instructions Recorded Confirmed Type teriparatide 20 mcg/dose (600 20 mcg SQ QAM 02/03/20 11/12/20 History mcg/2.4 mL) subcutaneous pen injector mometasone 1 appln TOP QAM 03/20/20 11/12/20 History folic acid 1 mg tablet 1 mg PO BID #180 tab 04/28/20 11/12/20 Rx insulin aspart U-100 100 unit/mL See Rx Instructions SQ TID ml 06/08/20 11/12/20 History (3 mL) subcutaneous pen insulin glargine 100 unit/mL (3 15 unit SUBCUT HS #1 box 06/08/20 11/12/20 Rx mL) subcutaneous pen calcium carbonate 500 mg (1,250 1 tab PO QAM #90 tab 07/08/20 11/12/20 Rx mg)-vitamin D3 200 unit tablet clotrimazole-betamethasone 1 1 applic TOPICAL BID PRN g 08/26/20 11/12/20 History %-0.05 % topical cream lactulose 20 gram/30 mL oral 45 ml PO BID ml 08/26/20 11/12/20 History solution hydroxyzine HCl 10 mg tablet 10 mg PO QID PRN #30 tab 08/31/20 11/12/20 Rx carvedilol 12.5 mg tablet 12.5 mg PO BID #180 tab 09/09/20 11/12/20 Rx pantoprazole 40 mg tablet,delayed 40 mg PO BID #180 tab 09/09/20 11/12/20 Rx release calcitriol 0.25 mcg PO 3XWK 10/24/20 11/12/20 History rifaximin 550 mg tablet 550 mg PO BID 10/24/20 11/12/20 History ropinirole 1 mg PO .QAFTERNOON 10/24/20 11/12/20 History ropinirole 2 mg PO HS 10/24/20 11/12/20 History ferrous sulfate 325 mg PO Q OTHER DAY #30 tab 11/02/20 11/12/20 Rx furosemide 20 mg tablet 20 mg PO DAILY #30 tab 11/07/20 11/12/20 Rx sodium bicarbonate 650 mg tablet 1,300 mg PO BID tab 11/07/20 11/12/20 History Past Med/Surg History Medical History Acute hyperkalemia Anemia of chronic disease Anxiety Chronic kidney disease, stage 4 (severe) Diabetic nephropathy associated with type 2 diabetes mellitus Diverticular disease Duodenal ulcer Esophageal varices Gastric ulcer GERD (gastroesophageal reflux disease) History of GI bleed History of recent blood transfusion (~06/2019) Hyperkalemia Hyperlipidemia Hypertension Hypertension Iron deficiency anemia Liver cirrhosis 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 Shivani Carmen- EGD History of anesthesia reaction difficult to wake after bladder tack sx History of bilateral cataract extraction History of bladder surgery bladder tack History of colonoscopy History of esophagogastroduodenoscopy (EGD) multiple---last 06/22/19 Dr. Malena Marie at [facility] [place] History of hemiarthroplasty of right shoulder January 2018 post fracture History of repair of right rotator cuff History of revision of total shoulder arthroplasty (12/29/18) Right shoulder, 12/29/18 History of shoulder surgery (~11/2019) Had right total arthroplasty removed 11/2019 History of tooth extraction all teeth S/P ORIF (open reduction internal fixation) fracture R shoulder, January 2018 S/P shoulder surgery (11/18/19) R TSA removal, I&D, placement of abx spacer Family History Grandmother (Paternal) Family history of diabetes mellitus Father COPD (chronic obstructive pulmonary disease) Mother Hypertension Family/Other Cancer Sister Ovarian cancer Denies family history of Prostate cancer Myocardial infarction Breast cancer Colorectal cancer Social History Smoking Status: Former smoker Tobacco Type: Cigarettes Second Hand Exposure: No; Hx Alcohol Use: No Hx Substance Use: No Preferred Language: Lao Communication Ability: Effective Visual Impairment: Limited Hearing Ability: Normal 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 Beliefs That Will Affect Care: None marital status: Current Living Situation: Spouse Current Living Situation Comment: Lives with and son current occupational status: retired Other Information That Helps Us Care for You: No Feels Safe at Home: Yes Safety Concerns: Feels Safe At This Time Childhood Exposure to Second-Hand Smoke: Yes Diet Comment: regular Dental Care, Regularly: No Physical Activity Frequency: Does not Exercise Seatbelt Use: always Sunscreen Use: Yes Assistive Devices: Cane Review of Systems Review of Systems: REVIEW OF SYSTEMS: Constitutional: No fever, sweats or chills Eyes: No diplopia, no worsening or blurred vision ENT: normal hearing, no trouble swallowing Respiratory: No cough, sputum, dyspnea at rest or on exertion Cardiovascular: No chest pain, tightness or palpitations Abdomen: No pain, nausea, vomiting, diarrhea or constipation Musculoskeletal: No joint pain, calf pain, swelling Neurologic: (+) RLS, No weakness, or balance problems Psychiatric: (+) anxiety or depression Skin: brusing on forearms and hands Physical Exam Physical Exam: PHYSICAL EXAM: General: awake, alert, no apparent distress Head: Normocephalic, atraumatic ENT: PERRL, EOMI, no pharyngeal exudate, mucous membranes moist Neuro: AAO x 3, speech clear and appropriate, strength intact bilaterally 5/5, sensation intact and equal all extremities and dermatomes, no pronator drift Chest: equal rise and fall of the chest, no accessory muscle use, no heaves or thrills, Clear to auscultation, on room air, Cardiac: Regular rate and rhythm, telemetry reviewed, skin warm dry, cap refill <3 seconds, peripheral pulses +2 no JVD, no murmur, no edema GI: NABS x 4 quadrants, soft, nontender to palpation, no rebound, guarding or tenderness, no overt ascities : Spontaneously voiding, no pain, no CVA tenderness, Extremities: Normal inspection, no peripheral edema or erythema, calfs nontender to palpation Psych: Normal mood and affect Skin: no rash or erythema Results & Data Results & Data ([facility]) Vital Signs (Past 12 Hours) Vital Signs Temp Pulse Resp BP Pulse Ox 11/12/20 14:00 36.6 C 64 16 174/89 H 98 11/12/20 13:45 36.6 C 66 20 164/65 H 97 11/12/20 13:30 64 19 165/68 H 97 11/12/20 13:26 66 18 173/83 H 97 11/12/20 13:25 36.5 C 64 18 173/83 H 97 11/12/20 13:00 61 17 97 11/12/20 12:30 60 18 97 11/12/20 12:00 64 20 11/12/20 11:47 63 21 11/12/20 11:30 63 18 179/76 H 97 11/12/20 11:06 36.7 C 63 18 158/67 H 98 Laboratory Results Abnormal lab results 11/12/20 11/12/20 11/12/20 Range/Units 11:59 11:59 11:59 WBC 1.99 L (4.8-10.8) K/uL RBC 2.08 L (4.2-5.4) M/uL Hgb 6.1 L* (12.0-16.0) g/dL Hct 18.7 L* (37-47) % RDW Std Deviation 58.6 H (36.4-46.3) fL RDW Coeff of Karina 17.7 H (11.5-14.5) % Plt Count 37 L (130-400) K/uL Neut # (Auto) 1.37 L (1.4-6.5) K/uL Lymph # (Auto) 0.52 L (1.2-3.4) K/uL Gordon # (Auto) 0.02 L (0.11-0.59) K/uL PT 12.6 H (9.0-12.0) Seconds INR 1.3 H (0.9-1.1) Sodium 147 H (136-145) mmol/L Chloride 123 H (98-107) mmol/L Carbon Dioxide 20 L (21-32) mmol/L BUN 54 H (7-18) mg/dl Creatinine 1.88 H (0.6-1.2) mg/dl BUN/Creatinine Ratio 28.5 H (10-20) Glucose 134 H (70-99) mg/dl Calcium 8.2 L (8.5-10.1) mg/dl Magnesium 2.8 H (1.8-2.4) mg/dl Alkaline Phosphatase 147 H (45-117) U/L Albumin 2.8 L (3.4-5.0) gm/dl Globulin 4.2 H (2.5-4.0) gm/dl Albumin/Globulin Ratio 0.7 L (0.9-2) Crossmatch 11/12/20 Range/Units 11:59 WBC (4.8-10.8) K/uL RBC (4.2-5.4) M/uL Hgb (12.0-16.0) g/dL Hct (37-47) % RDW Std Deviation (36.4-46.3) fL RDW Coeff of Karina (11.5-14.5) % Plt Count (130-400) K/uL Neut # (Auto) (1.4-6.5) K/uL Lymph # (Auto) (1.2-3.4) K/uL Gordon # (Auto) (0.11-0.59) K/uL PT (9.0-12.0) Seconds INR (0.9-1.1) Sodium (136-145) mmol/L Chloride (98-107) mmol/L Carbon Dioxide (21-32) mmol/L BUN (7-18) mg/dl Creatinine (0.6-1.2) mg/dl BUN/Creatinine Ratio (10-20) Glucose (70-99) mg/dl Calcium (8.5-10.1) mg/dl Magnesium (1.8-2.4) mg/dl Alkaline Phosphatase (45-117) U/L Albumin (3.4-5.0) gm/dl Globulin (2.5-4.0) gm/dl Albumin/Globulin Ratio (0.9-2) Crossmatch See Detail Diagnostic Findings ABDOMEN AND PELVIS CT WITHOUT CONTRAST CT DOSE: 947.54 mGy.cm HISTORY: GI bleed. TECHNIQUE: Multiaxial CT images of the abdomen and pelvis were performed without contrast. A dose lowering technique was utilized adhering to the principles of ALARA. COMPARISON STUDY: Abdomen and pelvis CT 03/20/2020. FINDINGS: Small left and trace right pleural effusions. Patchy densities at the lung bases posteriorly favor atelectasis from the pleural effusions. No pneumoperitoneum. No pneumatosis. Moderate body wall edema. Fat-containing moderate-sized lower midline abdominal wall hernia, unchanged. The bladder, uterus, bilateral adnexa are within normal limits. Cirrhotic liver with splenomegaly and multiple upper abdominal/paraesophageal varicosities are again noted. This is similar to the prior study. Subcentimeter hypodense lesions within the right hepatic lobe are too small to characterize. Cholelithiasis. The adrenal glands are unremarkable. A few punctate bilateral renal calculi. No hydronephrosis. Trace perihepatic ascites. The unenhanced pancreas is stable. Mild gallbladder wall edema. This may be due to the sclerotic liver. Suboptimal evaluation for bowel pathology due to the lack of intravenous and oral contrast. However, no definite bowel wall thickening or obstruction. Normal appendix. IMPRESSION: 1. Redemonstration of the cirrhosis with evidence of portal hypertension demonstrated by splenomegaly and upper abdominal varices. 2. Interval progression of the body wall edema, bilateral pleural effusions, and trace ascites. 3. Mild gallbladder wall thickening/edema. This is likely due to the patient's edematous state. There are few small gallstones. 4. No definite bowel wall thickening or obstruction. 5. Bilateral nephrolithiasis. No hydronephrosis. 6. Fat-containing lower left anterior abdominal wall hernia. XR chest 1V portable HISTORY: Shortness of breath. COMPARISON: Chest 10/29/2020. FINDINGS: Postoperative changes again noted within the right shoulder. No pneumothorax. The heart remains enlarged. Trace bilateral pleural effusions. There is mild pulmonary vascular congestion without overt edema. This has slightly progressed. No new focal lung consolidations to suggest pneumonia. IMPRESSION: Mild pulmonary vascular congestion and trace bilateral pleural effusions. This has slightly progressed. Medications Administered Home Medications teriparatide 20 mcg/dose (600 mcg/2.4 mL) subcutaneous pen injector 20 mcg SQ QAM 02/03/20 [History Confirmed 11/12/20] mometasone 1 appln TOP QAM 03/20/20 [History Confirmed 11/12/20] folic acid 1 mg tablet 1 mg PO BID #180 tab 04/28/20 [Rx Confirmed 11/12/20] insulin aspart U-100 100 unit/mL (3 mL) subcutaneous pen See Rx Instructions SQ TID ml 06/08/20 [History Confirmed 11/12/20] insulin glargine 100 unit/mL (3 mL) subcutaneous pen 15 unit SUBCUT HS #1 box 06/08/20 [Rx Confirmed 11/12/20] calcium carbonate 500 mg (1,250 mg)-vitamin D3 200 unit tablet 1 tab PO QAM #90 tab 07/08/20 [Rx Confirmed 11/12/20] clotrimazole-betamethasone 1 %-0.05 % topical cream 1 applic TOPICAL BID PRN g 08/26/20 [History Confirmed 11/12/20] lactulose 20 gram/30 mL oral solution 45 ml PO BID ml 08/26/20 [History Confirmed 11/12/20] hydroxyzine HCl 10 mg tablet 10 mg PO QID PRN #30 tab 08/31/20 [Rx Confirmed 11/12/20] carvedilol 12.5 mg tablet 12.5 mg PO BID #180 tab 09/09/20 [Rx Confirmed 11/12/20] pantoprazole 40 mg tablet,delayed release 40 mg PO BID #180 tab 09/09/20 [Rx Confirmed 11/12/20] calcitriol 0.25 mcg PO 3XWK 10/24/20 [History Confirmed 11/12/20] rifaximin 550 mg tablet 550 mg PO BID 10/24/20 [History Confirmed 11/12/20] ropinirole 1 mg PO .QAFTERNOON 10/24/20 [History Confirmed 11/12/20] ropinirole 2 mg PO HS 10/24/20 [History Confirmed 11/12/20] ferrous sulfate 325 mg PO Q OTHER DAY #30 tab 11/02/20 [Rx Confirmed 11/12/20] furosemide 20 mg tablet 20 mg PO DAILY #30 tab 11/07/20 [Rx Confirmed 11/12/20] sodium bicarbonate 650 mg tablet 1,300 mg PO BID tab 11/07/20 [History Confirmed 11/12/20] Active Medications Sodium Chloride (Nss) 250 mls @ 15 mls/hr IV .[id number] PRN PRN Reason: For Transfusion Stop: 11/12/20 22:29 Discontinued Medications Pantoprazole Sodium 40 mg/ (Dextrose) 100 mls @ 20 mls/hr IV Q5H BOBBY Stop: 12/12/20 13:14 Last Admin: 11/12/20 14:14 Dose: Not Given Documented by: [id number] Ioversol (Ioversol 100ml) 93 ml IV ONCE ONE Stop: 11/12/20 11:56 Last Admin: 11/12/20 11:55 Dose: 93 ml Documented by: [id number] ECG Additional Comments: Normal sinus rhythm Nonspecific ST abnormality Abnormal ECG Code Status & VTE Plan Code Status CODE: FULL VTE: SCD's -- Chemical prophylaxis if no acute bleeding eppisode VTE Prophylaxis Plan VTE Prophylaxis will be ordered: Yes Supervising Physician Co-Signing Physician Notes Patient was seen and examined independently I discussed the case with Woo COELLO I reviewed pertinent past medical social family history and also the plan of care and agree with the plan of care. Patient is here discharged with anemia has multiple reasons for anemia reported has some bloody bowel movements. She has no signs or symptoms of upper GI bleed at the present time but is being transfused by the ER. We will continue to follow her anemia as we go Physical examination shows her to be not tachycardic or hypotensive, she has no epigastric pain or other abdominal pain. She does not typically take a beta- maxwell for esophageal varices. We will support her with blood products both packed cells and platelets for thrombocytopenia associated with her liver disease and trend her hemoglobin platelet count Any exceptions will be noted below PG Care Time/CCT Total # of Minutes Spent Total Time Spent with Patient: Total time spent is greater than 50% in coordination of care (as documented) at patient's floor/unit and/or counseling patient: Coding Level of Care Code 65897 Initial Inpt Care Lvl 3 Diagnoses Anemia D50.8 Anemia type: iron deficiency Iron deficiency anemia type: other iron deficiency Iron deficiency anemia D50.8 Iron deficiency anemia type: other iron deficiency Chronic kidney disease, stage 4 (severe) N18.4 Hepatic encephalopathy K72.90 Diabetic nephropathy associated with type 2 diabetes mellitus E11.21 DM type 2 (diabetes mellitus, type 2) E11.65 Diabetes mellitus complication status: with hyperglycemia Diabetes mellitus watermaster insulin use: without watermaster use Hypertension I10 Hypertension type: essential hypertension 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 K75.81; K74.60 CHF (congestive heart failure) I50.9 Heart failure chronicity: acute Heart failure type: unspecified Pancytopenia D61.818 Restless leg syndrome G25.81 Hypernatremia E87.0 (1) DM type 2 (diabetes mellitus, type 2) Diabetes mellitus complication status: with hyperglycemia Diabetes mellitus fci insulin use: without fci use Qualified Code(s): E11.65 - Type 2 diabetes mellitus with hyperglycemia (2) CHF (congestive heart failure) Heart failure chronicity: acute Heart failure type: unspecified Qualified Code(s): I50.9 - Heart failure, unspecified (3) Anemia Anemia type: iron deficiency Iron deficiency anemia type: other iron deficiency Qualified Code(s): D50.8 - Other iron deficiency anemias (4) Iron deficiency anemia Iron deficiency anemia type: other iron deficiency Qualified Code(s): D50.8 - Other iron deficiency anemias (5) Hypertension Hypertension type: essential hypertension Qualified Code(s): I10 - Essential (primary) hypertension
[2020-11-12 14:43] LABS: Influenza A virus by PCR Negative (Neg); Influenza B virus by PCR Negative (Neg); RSV by PCR Negative (Neg); SARS CoV2 RNA(COVID-19) InHosp NEGATIVE (Negative)
[2020-11-12 16:06] LABS: Appearance Urine Clear (Clear); Bacteria Urine Automated Negative (Negative); Bilirubin Urine Negative (Negative); Blood Urine 2+ (Negative); Color Urine Yellow; Glucose Urine UA Negative (Negative); Ketones Urine Negative (Negative); Leukocyte Esterase Urine Negative (Negative); Nitrite Urine Negative (Negative); Specific Gravity Urine 1.011 (1.000-1.030); Urobilinogen Urine Negative (Negative); WBC Urine Automated 0 /hpf (0-5); pH Urine 7.5 (4.5-7.5)
[2020-11-12 16:10] LABS: Protein Urine 1+ (Negative)
[2020-11-12] MEDS ORDERED: GLUCAGON FOR INJ 1 MG VIAL SQ PRN (16:19)
[2020-11-12] MEDS ORDERED: GLUCOSE 10 TABS/TUBE PO PRN (16:19)
[2020-11-12] MEDS ORDERED: ACETAMINOPHEN 325 MG TAB PO PRN (16:19)
[2020-11-12] MEDS ORDERED: ONDANSETRON INJ 2 MG/ML 2 ML VIAL IV PRN (16:19)
[2020-11-12] MEDS ORDERED: DEXTROSE 50% 50 ML SYRINGE IV PRN (16:19)
[2020-11-12] MEDS ORDERED: CARBOHYDRATES FOR HYPOGLYCEMIA PO PRN (16:19)
[2020-11-12] MEDS ORDERED: GLUCOSE 40% GEL 15 GM TUBE PO PRN (16:19)
[2020-11-12] MEDS ORDERED: CALCITRIOL 0.25 MCG CAPSULE PO SCH (16:19)
[2020-11-12] MEDS ORDERED: hydrOXYzine HCl 10 MG TAB PO PRN (16:19)
[2020-11-12] MEDS ORDERED: CLOTRIMAZOLE/BETAMETHASONE CR 15 GM TUBE EXT PRN (16:19)
[2020-11-12] MEDS ORDERED: PHARMACY GLYCEMIC MGMT CONSULT PRN (16:42)
[2020-11-12] MEDS: rOPINIRole HCL 1 MG TABLET PO SCH ×2 (17:35→21:16)
[2020-11-12] MEDS: INSULIN ASPART 100 UNITS/ML 3 ML PEN SC SCH (17:42)
[2020-11-12 19:08] LABS: Hematocrit (blood only) 21.1 % (37-47); Mean Corpuscular Hemoglobin 29.5 pg (25-34); Mean Corpuscular Hgb Conc 33.2 g/dL (32-36); RDW Coefficient of Variation 17.7 % (11.5-14.5); RDW Standard Deviation 57.1 fL (36.4-46.3); Red Blood Count 2.37 M/uL (4.2-5.4); White Blood Count 2.65 K/uL (4.8-10.8)
[2020-11-12 19:25] LABS: Eosinophils # (auto) 0.07 K/uL (0-0.5); Eosinophils % (auto) 2.6 %; Immature Granulocytes # (auto) 0.01 K/uL (0.00-0.02); Immature Granulocytes % (auto) 0.4 %; Lymphocytes # (auto) 0.46 K/uL (1.2-3.4); Lymphocytes % (auto) 17.4 %; Mean Platelet Volume 10.3 fL (7.4-10.4); Monocytes # (auto) 0.02 K/uL (0.11-0.59); Monocytes % (auto) 0.8 %; Neutrophils # (auto) 2.09 K/uL (1.4-6.5); Neutrophils % (auto) 78.8 %; Platelet Count 40 K/uL (130-400); RBC Morphology Unremarkable
[2020-11-12] MEDS: carvediloL 12.5 MG TAB PO SCH (21:15)
[2020-11-12] MEDS: LACTULOSE SYRUP 30 GM/45 ML UDP PO SCH (21:15)
[2020-11-12] MEDS: FOLIC ACID 1 MG TAB PO SCH (21:15)
[2020-11-12] MEDS: PANTOprazole 40 MG TAB PO SCH (21:15)
[2020-11-12] MEDS: SODIUM BICARBONATE 650 MG TAB PO SCH (21:16)
[2020-11-12] MEDS: rifAXIMin 550 MG TABLET PO SCH (21:16)
[2020-11-13] MEDS: INSULIN ASPART 100 UNITS/ML 3 ML PEN SC SCH ×5 (00:12→21:06)
[2020-11-13 06:38] LABS: Hematocrit (blood only) 23.2 % (37-47); Hemoglobin 7.4 g/dL (12.0-16.0); Mean Corpuscular Hemoglobin 27.9 pg (25-34); Mean Corpuscular Hgb Conc 31.9 g/dL (32-36); Mean Corpuscular Volume 87.5 fL (80-100); RDW Coefficient of Variation 18.7 % (11.5-14.5); RDW Standard Deviation 59.3 fL (36.4-46.3); Red Blood Count 2.65 M/uL (4.2-5.4); White Blood Count 2.75 K/uL (4.8-10.8)
[2020-11-13 06:39] LABS: Mean Platelet Volume 9.6 fL (7.4-10.4); Platelet Count 36 K/uL (130-400)
[2020-11-13 07:16] LABS: Calcium 8.9 mg/dl (8.5-10.1); Creatinine Clr Calc Pharmacy 28.1 ml/min; Est GFR (African American) 31.9; Est GFR (Non-African American) 27.6; Magnesium 2.6 mg/dl (1.8-2.4); Potassium 4.7 mmol/L (3.5-5.1)
[2020-11-13 07:30] LABS: Basophils # (auto) 0.01 K/uL (0-0.2); Basophils % (auto) 0.4 %; Eosinophils # (auto) 0.05 K/uL (0-0.5); Eosinophils % (auto) 1.8 %; Immature Granulocytes # (auto) 0.01 K/uL (0.00-0.02); Immature Granulocytes % (auto) 0.4 %; Lymphocytes # (auto) 0.42 K/uL (1.2-3.4); Lymphocytes % (auto) 15.3 %; Monocytes % (auto) 7.3 %; Neutrophils # (auto) 2.06 K/uL (1.4-6.5); Neutrophils % (auto) 74.8 %; RBC Morphology Unremarkable
[2020-11-13] MEDS: SODIUM BICARBONATE 650 MG TAB PO SCH (08:02)
[2020-11-13] MEDS: PANTOprazole 40 MG TAB PO SCH ×2 (08:02→20:41)
[2020-11-13] MEDS: CALCIUM 600MG + VIT D 400 IU TAB PO SCH (08:02)
[2020-11-13] MEDS: rifAXIMin 550 MG TABLET PO SCH ×2 (08:02→20:43)
[2020-11-13] MEDS: carvediloL 12.5 MG TAB PO SCH ×2 (08:04→20:40)
[2020-11-13] MEDS: FOLIC ACID 1 MG TAB PO SCH ×2 (08:05→20:41)
[2020-11-13] MEDS: LACTULOSE SYRUP 30 GM/45 ML UDP PO SCH (08:06)
[2020-11-13] MEDS ORDERED: SODIUM CHLORIDE 0.9% 250 ML IV PRN (08:27)
[2020-11-13] MEDS ORDERED: FERROUS SULFATE 325 MG TAB PO SCH (09:00)
--- NOTE | 2020-11-13 11:01 | Hospitalist Progress Note ---
Date of Service November 13, 2020 Assessment & Plan (1) GI bleed: 65 yo F PMHx MAE cirrhosis, CKD stage 4, DM2 on insulin therapy, HFpEF, restless leg syndrome admitted for symptomatic anemia suspected to be secondary to GI bleeding. Symptomatic anemia, GI bleeding: -On admission with complaints of SOB and bright red bloody BMs. -Hemoccult positive without elia blood noted. -Hgb initially 6.1, given 2u PRBCs with increase in Hgb to 7.4. -Goal of Hg >8.0 given symptomatic anemia, will transfuse further 2u PRBCs today with repeat H/H following. -Does have a history of GIB in the past, was admitted to ICU in 03/2020 for GIB with EGD with grade II varices, stomach ulcers, and AVM which was clipped. -GI consulted, appreciate recommendations. Clear liquid diet for now, trend H/H, possible colonoscopy/EGD later this week. MAE cirrhosis: -Continue lactulose and Rifaximin; no signs of metabolic encephalopathy. -Child Miller and MELD scores remain elevated and unchanged from last visit. -Tbili and INR are elevated, however at baseline for patient. -CTAP performed this admission shows progression of the body wall edema, bilateral pleural effusions, and trace ascites. -Iron supplementation discontinued as patient's iron level was normal and ferritin was high; given cirrhosis do not want to induce iron sequestration in liver tissue. Hypernatremia: -History of HyperNa in the past. -Sodium bicarb tablets held given HyperNa this admission. -Repeat renal function in AM. Type 2 diabetes: -DM2 clear liquid diet for now. -Lantus 15u daily with SSI while admitted. CKD stage 4: -Known history of CKD following with nephrology most recently seen on 11/02 while last inpatient for metabolic encephalopathy. -Creatinine this admission of 1.88, which is significantly improved as compared to recent admissions. HFpEF, HTN: -Last Echo 09/2020 showed LVEF 60-65% without regional wall motion abnormalities, moderate concentric LVH, moderate LA dilation, severe pulmonary HTN. -Continue carvedilol, furosemide 20mg daily. Restless leg syndrome: -Continue home ropinerole. 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 Courtney. Agree with history, exam findings, assessment and plan of care as outlined. In brief, Ms. Sherman is a 65 year old female with history of cirrhosis secondary to MAE, CKD, DM and pancytopenia admitted with lower GI bleed and anemia. Overall feels well. Denies dyspnea and chest pain. Did have a bowel movement today with small amount of bight red blood. Stool are dark, but texture as not changed. She states that it is hard to know often times if there is upper GI bleeding because the stools are dark due to iron supplementation. Also has been experiencing intermittent epistaxis. Vital signs and nursing notes reviewed. A bit pale appearing. Heart with regular rate and rhythm. No lower extremity edema. Lungs are clear to auscultation. No wheezes or rales. Abdomen is slightly distended, but not tense. Non-tender. Rectal exam deferred. 1. blood loss anemia in the setting of chronic anemia. s/p 4 units PRBCs. lower GI bleed and epistaxis. Transfuse to goal of hgb >7. Of note, she is on iron. 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 2. cirrhosis. Stable. not decompensated. Will need to monitor fluid status carefully with the extra fluid from transfusion. She has been evaluated by transplant in [place], but concern that she is too tenuous for transplant at this time. 3. CKD. stable. Followed by Dr. Galeano as an outpatient. 4. DM. Glycemic consult. 5. 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 Received a pack of platelets on admissoin due to bleeding and platelet count less than 50. Dispo: pending clinical improvement. PT/OT. Subjective Patient without acute events overnight. Has been afebrile and hemodynamically stable. Complaints of SOB with activity such as getting up to use the bathroom. No dyspneic at rest in bed. Denies chest pain, abdominal pain, dizziness or headache, recent fevers or chills. Review of Systems Review of Systems: All systems reviewed & are unremarkable except as noted in HPI & below Constitutional: + malaise; no fever and no chills Respiratory: + dyspnea (with activity); no cough Cardiovascular: no chest pain, no palpitations and no edema Gastrointestinal: no abdominal pain, no constipation and no diarrhea/loose stools Genitourinary: no dysuria and no hematuria Physical Exam Constitutional: WD/WN, vitals as above Eyes: PERRL, conjunctivae normal, anicteric sclerae Respiratory: normal respiratory effort, lungs clear to auscultation Cardiovascular: Rate/Rhythm: regular rate and regular rhythm Heart Sounds: + murmur (2/6 systolic murmur at base) Gastrointestinal (Abdomen): normal bowel sounds, soft, nontender, no hepatosp lenomegaly Percussion/Palpation: no ascites Skin: no rashes, warm and dry no jaundice Neurologic: AAOx3, normal speech. No tremor. Answers questions appropriately. Psychiatric: A+Ox3, euthymic affect Results & Data Results & Data ([facility]) Vital Signs (Past 12 Hours) Vital Signs Temp Pulse Pulse Resp BP BP Pulse Ox 11/13/20 10:15 36.8 C 61 18 179/71 H 93 11/13/20 09:45 36.7 C 63 18 181/74 H 96 11/13/20 09:30 37.0 C 64 18 179/70 H 11/13/20 09:14 36.8 C 112 H 18 180/68 H 11/13/20 07:41 37.0 C 67 18 152/69 H 93 11/13/20 07:00 66 11/13/20 04:00 37.1 C 78 18 164/73 H 92 11/13/20 00:32 73 11/12/20 23:20 36.9 C 71 18 161/76 H 92 Resident Activity Tracking Resident Involvement: Resident Care Provided Care Provided: Adult [facility] (1) GI bleed GI bleed type/associated pathology: unspecified gastrointestinal hemorrhage type Qualified Code(s): K92.2 - Gastrointestinal hemorrhage, unspecified (2) DM type 2 (diabetes mellitus, type 2) Diabetes mellitus complication status: with hyperglycemia Diabetes mellitus shelter insulin use: without shelter use Qualified Code(s): E11.65 - Type 2 diabetes mellitus with hyperglycemia (3) CHF (congestive heart failure) Heart failure chronicity: acute Heart failure type: unspecified Qualified Code(s): I50.9 - Heart failure, unspecified (4) GERD (gastroesophageal reflux disease) Esophagitis presence: esophagitis presence not specified Qualified Code(s): K21.9 - Gastro-esophageal reflux disease without esophagitis (5) Hypertension Hypertension type: essential hypertension Qualified Code(s): I10 - Essential (primary) hypertension
--- NOTE | 2020-11-13 11:12 | Pharmacy Report ---
Pharmacy Glycemic Short Note 2 - Date of Service November 13, 2020 - Glycemic Short BSG Results (Last 24 hours): 11/12/20 11/12/20 11/13/20 11:59 16:51 00:08 Glucose 134 H POC Glucose 110 H 122 H 11/13/20 11/13/20 05:42 06:10 Glucose 114 H POC Glucose 124 H OUTPATIENT ANTIDIABETIC REGIMEN: * Basaglar (insulin glargine) 15 units SQ HS * NovoLog per scale TIDM * A1c = 6.2% on 09/29/20 ASSESSMENT: * 65yo T2DM female with excellent degree of outpatient control per recent A1c * Pt is maintained on SQ basal bolus insulin with glargine + NovoLog. * Pt currently NPO - basal insulin on hold for NPO. Will re-start (at reduced dosing for NPO) when BSG >180 * Weight based NovoLog scale per CF/CR PLAN FOR INPATIENT GLYCEMIC CONTROL: * Basal insulin * hold for now while NPO - will resume with diet advanced or when BSG > 180 mg/dl (whichever happens sooner) * Bolus insulin * NovoLog per scale ACHS or Q6hrs while NPO * Goal Range: Low 110 mg/dL - High 140 mg/dL * Correction Factor: 30 mg/dL/unit * Nutritional / Prandial insulin per carb ratio of 1 unit per 10 grams CHO consumed PLAN FOR DISCHARGE: * A1c = 6.2 % on 09/29/20 * Goal A1c = <7 % based on age and comorbidities * No changes needed at DC to outpatient regimen.
[2020-11-13] MEDS: MOMETASONE FUROATE 0.1% CR 15 GM TUBE EXT SCH (12:25)
--- NOTE | 2020-11-13 12:39 | Gastrointestinal Consultation ---
Date of Consultation November 13, 2020 History of Present Illness Attending Physician: Ai Alberts, DO Consult: Anemia, ? GIB HPI: 65 yo female with PMH sig for MAE cirrhosis coplicated by portal HTN, with chronic pancytopenia with hgb 7-9 and plts in the 30's.. She has a prior h/o admit for UGIB last summer, with EGD showing G2 esoph varices without stigmata, gastric AVM that was clipped/cauterized. She is s/p recent admission for HE due to UTI. She is now admit with complaint of dyspnea on exertion. Hgb on admit was 6.5, with last hgb as outpt 8.6 in 10/09 and 7 on recent discharge from hospital. She reports heavy epistaxis for 2 weeks, also a few episodes of rectal bleeding in the past few days. She was hypertensive overnight, received 2 U PRBC with rise in hgb 7.4 plts. BUN is chronically 40-50, similar on admission. PMH: CKD, DM2, PE: VS sig for marked HTN Appears mildly disheveled, but comfortable HEENT: anticteric, moist, pink CV: RRR Resp: CTA abd: Soft NT, ND - no obv ascites Extrem: no edema, no bruising Rectal: Hemorrhoids with valsalva, brown stool. Labs: Hgb 7.4, WBC 2.75, Plts 36 Na 147 BUN 53 / Creat 0.9. CT shows tr ascites, portal HTN A/P: MAE cirrhosis Acute / chronic anemia, T penia - No evidence of acute/ongoing GIB; her drop in hgb may be related to epistaxis and rectal bleeding. May consider EGD/cscopy later this week as inpt or as outpt. Clears today. - Please tranfuse for goal hgb 7. - Consider holding Na bicarb tabs due to hypernatremia. - Consider resuming diuretics tomorrow given volume load with transfusions. Allergies Allergy/AdvReac Type Severity Reaction Status Date / Time sulfamethoxazole Allergy Intermediate RASH Verified 11/07/20 10:31 trimethoprim Allergy Intermediate RASH Verified 11/07/20 10:31 amlodipine AdvReac Intermediate confusion Verified 11/07/20 10:31 adhesive tape AdvReac Mild ITCHING Verified 11/07/20 10:31 Home Medications Medication Instructions Recorded Confirmed Type teriparatide 20 mcg/dose (600 20 mcg SQ QAM 02/03/20 11/12/20 History mcg/2.4 mL) subcutaneous pen injector mometasone 1 appln TOP QAM 03/20/20 11/12/20 History folic acid 1 mg tablet 1 mg PO BID #180 tab 04/28/20 11/12/20 Rx insulin aspart U-100 100 unit/mL See Rx Instructions SQ TID ml 06/08/20 11/12/20 History (3 mL) subcutaneous pen insulin glargine 100 unit/mL (3 15 unit SUBCUT HS #1 box 06/08/20 11/12/20 Rx mL) subcutaneous pen calcium carbonate 500 mg (1,250 1 tab PO QAM #90 tab 07/08/20 11/12/20 Rx mg)-vitamin D3 200 unit tablet clotrimazole-betamethasone 1 1 applic TOPICAL BID PRN g 08/26/20 11/12/20 History %-0.05 % topical cream lactulose 20 gram/30 mL oral 45 ml PO BID ml 08/26/20 11/12/20 History solution hydroxyzine HCl 10 mg tablet 10 mg PO QID PRN #30 tab 08/31/20 11/12/20 Rx carvedilol 12.5 mg tablet 12.5 mg PO BID #180 tab 09/09/20 11/12/20 Rx pantoprazole 40 mg tablet,delayed 40 mg PO BID #180 tab 09/09/20 11/12/20 Rx release calcitriol 0.25 mcg PO 3XWK 10/24/20 11/12/20 History rifaximin 550 mg tablet 550 mg PO BID 10/24/20 11/12/20 History ropinirole 1 mg PO .QAFTERNOON 10/24/20 11/12/20 History ropinirole 2 mg PO HS 10/24/20 11/12/20 History ferrous sulfate 325 mg PO Q OTHER DAY #30 tab 11/02/20 11/12/20 Rx furosemide 20 mg tablet 20 mg PO DAILY #30 tab 11/07/20 11/12/20 Rx sodium bicarbonate 650 mg tablet 1,300 mg PO BID tab 11/07/20 11/12/20 History Patient History Medical History Acute hyperkalemia Anemia of chronic disease Anxiety Chronic kidney disease, stage 4 (severe) Diabetic nephropathy associated with type 2 diabetes mellitus Diverticular disease Duodenal ulcer Esophageal varices Gastric ulcer GERD (gastroesophageal reflux disease) History of GI bleed History of recent blood transfusion (~06/2019) Hyperkalemia Hyperlipidemia Hypertension Hypertension Iron deficiency anemia Liver cirrhosis 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 Shivani Carmen- EGD History of anesthesia reaction difficult to wake after bladder tack sx History of bilateral cataract extraction History of bladder surgery bladder tack History of colonoscopy History of esophagogastroduodenoscopy (EGD) multiple---last 06/22/19 Dr. Malena Marie at [facility] History of hemiarthroplasty of right shoulder January 2018 post fracture History of repair of right rotator cuff History of revision of total shoulder arthroplasty (12/29/18) Right shoulder, 12/29/18 History of shoulder surgery (~11/2019) Had right total arthroplasty removed 11/2019 History of tooth extraction all teeth S/P ORIF (open reduction internal fixation) fracture R shoulder, January 2018 S/P shoulder surgery (11/18/19) R TSA removal, I&D, placement of abx spacer Family History Grandmother (Paternal) Family history of diabetes mellitus Father COPD (chronic obstructive pulmonary disease) Mother Hypertension Family/Other Cancer Sister Ovarian cancer Denies family history of Prostate cancer Myocardial infarction Breast cancer Colorectal cancer Social History Smoking Status: Former smoker Tobacco Type: Cigarettes Second Hand Exposure: No; Hx Alcohol Use: No Hx Substance Use: No Preferred Language: Urdu Communication Ability: Effective Visual Impairment: Limited Hearing Ability: Normal Dyno Technician Required: No Beliefs That Will Affect Care: None marital status: Current Living Situation: Spouse Current Living Situation Comment: Lives with and son current occupational status: retired Other Information That Helps Us Care for You: No Feels Safe at Home: Yes Safety Concerns: Feels Safe At This Time Childhood Exposure to Second-Hand Smoke: Yes Diet Comment: regular Dental Care, Regularly: No Physical Activity Frequency: Does not Exercise Seatbelt Use: always Sunscreen Use: Yes Assistive Devices: Glasses and Walker Results & Data ([facility]) Vital Signs (Past 12 Hours) Vital Signs Temp Pulse Pulse Resp BP BP Pulse Ox 11/13/20 11:45 36.7 C 64 18 179/77 H 98 11/13/20 10:45 36.8 C 62 18 170/80 H 11/13/20 10:15 36.8 C 61 18 179/71 H 93 11/13/20 09:45 36.7 C 63 18 181/74 H 96 11/13/20 09:30 37.0 C 64 18 179/70 H 11/13/20 09:14 36.8 C 112 H 18 180/68 H 11/13/20 07:41 37.0 C 67 18 152/69 H 93 11/13/20 07:00 66 11/13/20 04:00 37.1 C 78 18 164/73 H 92 11/13/20 00:32 73
[2020-11-13] MEDS ORDERED: Nursing to Pharmacy Communication SCH (13:30)
[2020-11-13] MEDS: rOPINIRole HCL 1 MG TABLET PO SCH ×2 (14:41→20:42)
[2020-11-13] MEDS ORDERED: INSULIN GLARGINE SOLOSTAR 100 UNITS/ML 3 ML PEN SC SCH (21:00)
[2020-11-14 08:05] LABS: Hematocrit (blood only) 28.5 % (37-47); Hemoglobin 9.2 g/dL (12.0-16.0); Mean Corpuscular Hemoglobin 28.4 pg (25-34); Mean Corpuscular Hgb Conc 32.3 g/dL (32-36); RDW Coefficient of Variation 18.2 % (11.5-14.5); RDW Standard Deviation 56.2 fL (36.4-46.3); Red Blood Count 3.24 M/uL (4.2-5.4); White Blood Count 2.26 K/uL (4.8-10.8)
[2020-11-14 08:28] LABS: Mean Platelet Volume 10.4 fL (7.4-10.4); Platelet Count 37 K/uL (130-400)
[2020-11-14 08:29] LABS: Acanthocytes 1+; Basophils # (auto) 0.01 K/uL (0-0.2); Basophils % (auto) 0.4 %; Eosinophils # (auto) 0.07 K/uL (0-0.5); Eosinophils % (auto) 3.1 %; Lymphocytes # (auto) 0.48 K/uL (1.2-3.4); Lymphocytes % (auto) 21.2 %; Monocytes # (auto) 0.13 K/uL (0.11-0.59); Monocytes % (auto) 5.8 %; Neutrophils # (auto) 1.57 K/uL (1.4-6.5); Neutrophils % (auto) 69.5 %; Platelet Estimate Decreased (Normal); Schistocytes 1+
[2020-11-14 08:47] LABS: Albumin Level 2.8 gm/dl (3.4-5.0); BUN Creatinine Ratio 25.5 (10-20); Calcium 9.1 mg/dl (8.5-10.1); Creatinine Clr Calc Pharmacy 28.7 ml/min; Est GFR (African American) 32.6; Est GFR (Non-African American) 28.1; Magnesium 2.7 mg/dl (1.8-2.4); Potassium 4.4 mmol/L (3.5-5.1)
[2020-11-14 09:04] LABS: Albumin Globulin Ratio 0.8 (0.9-2); Bilirubin,Total 1.4 mg/dl (0.2-1); Globulin 3.7 gm/dl (2.5-4.0); Total Protein 6.5 gm/dl (6.4-8.2)
[2020-11-14] MEDS: LACTULOSE SYRUP 30 GM/45 ML UDP PO SCH ×2 (09:04→20:23)
[2020-11-14] MEDS: INSULIN ASPART 100 UNITS/ML 3 ML PEN SC SCH ×4 (09:05→20:24)
[2020-11-14] MEDS: CALCIUM 600MG + VIT D 400 IU TAB PO SCH (09:06)
[2020-11-14] MEDS: FOLIC ACID 1 MG TAB PO SCH ×2 (09:06→20:23)
[2020-11-14] MEDS: PANTOprazole 40 MG TAB PO SCH ×2 (09:06→20:24)
[2020-11-14] MEDS: MOMETASONE FUROATE 0.1% CR 15 GM TUBE EXT SCH (09:06)
[2020-11-14] MEDS: rifAXIMin 550 MG TABLET PO SCH ×2 (09:06→20:25)
[2020-11-14] MEDS: carvediloL 12.5 MG TAB PO SCH ×2 (09:06→20:23)
--- NOTE | 2020-11-14 10:46 | Gastroenterology Progress Note ---
Date of Service November 14, 2020 Assessment & Plan (1) GI bleed: MAE cirrhosis Acute / chronic anemia, Thrombocytopenia - No evidence of acute/ongoing GIB; her drop in hgb likely related to epistaxis and rectal outlet bleeding. Will arrange an outpatient EGD/cscopy in the next few weeks. Office aware to schedule. - Hgb stable. Would not overtransfuse as will increase portal pressure. - Consider holding Na bicarb tabs due to hypernatremia. - Diuretics home regimen. - Please call with questions. 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 9.2 this AM following a total of 4 units of blood. Baseline is 7-9 usually. No s/s of on-going bleeding. Review of Systems Review of Systems: All systems reviewed & are unremarkable except as noted in HPI & below Physical Exam Constitutional: WD/WN, vitals as above Respiratory: normal respiratory effort, lungs clear to auscultation Cardiovascular: RRR, no murmur, no edema Gastrointestinal (Abdomen): normal bowel sounds, soft, nontender, no hepatosplenomegaly Results & Data ([facility]) Vital Signs (Past 12 Hours) Vital Signs Temp Pulse Pulse Resp BP BP Pulse Ox 11/14/20 07:58 36.7 C 58 L 20 165/61 H 92 11/14/20 04:00 36.7 C 68 18 154/80 H 93 11/14/20 01:48 55 L 11/14/20 00:12 36.6 C 67 18 157/69 H 94 (1) GI bleed GI bleed type/associated pathology: unspecified gastrointestinal hemorrhage type Qualified Code(s): K92.2 - Gastrointestinal hemorrhage, unspecified (2) Anemia Anemia type: iron deficiency Iron deficiency anemia type: other iron deficiency Qualified Code(s): D50.8 - Other iron deficiency anemias
[2020-11-14] MEDS ORDERED: SODIUM CHLORIDE 0.65% NA SOLN 45 ML (OCEAN) PRN (14:22)
--- NOTE | 2020-11-14 14:24 | Hospitalist Progress Note ---
Date of Service November 14, 2020 Assessment & Plan (1) Epistaxis: with resulting acute blood loss anemia. epistaxis resolved. likely was posterior bleed - I cannot visualize any areas of recent bleeding anteriorly. low platelets certainly contributing to this. bactroban ointment TID to both nares. saline spray prn. (2) Lower GI bleed: GI consult appreciated. Suspected hemorrhoidal bleeding. H/H remain acceptable s/p PRBCs this admission. no plans for endoscopic evaluation. (3) Acute blood loss anemia: 2nd epistaxis and suspected hemorrhoidal bleeding. s/p 4 units PRBCs and 1 unit platelets this admission. H/H acceptable and platelets low but acceptable w/ no further bleeding. (4) Symptomatic anemia: see above (5) Hypernatremia: chronic, 2nd chronic use of diuretics (6) Pancytopenia: 2nd to liver cirrhosis, hypersplenism, etc. cbc am (7) Chronic kidney disease, stage 4 (severe): baseline CrCl 20s bmp in am (8) Restless leg syndrome: cont home meds (9) Hyperlipidemia: (10) DM type 2 (diabetes mellitus, type 2): pharmacy managing BSGs labile and some lows appreciate pharmacy assistance (11) 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: fairly advanced has had weight gain over the last 1-2 weeks in the setting of PRBCs, platelets, etc. give IV diuretic today re-eval for more IV diuretic tomorrow as well (12) Iron deficiency anemia: ferritin 70s defer on IV Fe for now (13) Hypertension: uncontrolled cont coreg may need additional agent (14) Pulmonary hypertension: noted (15) Rheumatoid arthritis: previously on prednisone in the past - no longer on such (16) Psoriatic arthritis: previously on prednisone in past - no longer on such (17) GERD (gastroesophageal reflux disease): PPI bid h/o esophageal varices on past EGD no evidence of variceal bleeding at the current time (18) Anxiety: (19) DVT prophylaxis: SCDs platelets <50 precluding chemical means updated at bedside cleared for home by therapy Admission and Anticipated Discharge Date Admission Date: November 12, 2020 Subjective patient c/o mild dyspnea on exertion but none at rest also with mild skin itching no further nose bleeding no further rectal bleeding she cannot feel external hemorrhoids at bedside worked w/ PT today - did well Review of Systems Constitutional: no fever Respiratory: no cough Cardiovascular: no chest pain Gastrointestinal: no abdominal pain, no nausea and no vomiting Physical Exam Constitutional: no acute distress and no altered mental status ENMT: external ear and nose normal, oropharynx normal no epistaxis or dried blood Respiratory: Auscultation: + diminished lung sounds (bases) and + crackles (bases) Cardiovascular: Rate/Rhythm: regular rate and regular rhythm Heart Sounds: normal S1 and normal S2 Vessels: + JVD, posterior tibial pulses present and dorsalis pedis pulses present Extremities: + edema (trace b/l ) Gastrointestinal (Abdomen): normal bowel sounds, soft, nontender, no h epatosplenomegaly Skin: no rashes, warm and dry (but dry throughout ) no jaundice Psychiatric: A+Ox3, euthymic affect Results & Data Results & Data ([facility]) Vital Signs (Past 12 Hours) Vital Signs Temp Pulse Resp BP BP Pulse Ox 11/14/20 12:01 36.7 C 60 20 189/72 H 185/70 H 97 11/14/20 07:58 36.7 C 58 L 20 165/61 H 92 11/14/20 04:00 36.7 C 68 18 154/80 H 93 Laboratory Results Laboratory Results - last 24 hr 11/12/20 11/13/20 11/13/20 11:59 16:53 20:13 WBC RBC Hgb Hct MCV MCH MCHC RDW Std Deviation RDW Coeff of Karina Plt Count MPV Immature Gran % (Auto) Neut % (Auto) Lymph % (Auto) [place] % (Auto) Eos % (Auto) Baso % (Auto) Neut # (Auto) Lymph # (Auto) [place] # (Auto) Eos # (Auto) Baso # (Auto) Immature Gran # (Auto) Platelet Estimate Acanthocytes (Spur) Schistocytes Sodium Potassium Chloride Carbon Dioxide Anion Gap BUN Creatinine Est Cr Clr Drug Dosing Est GFR ( Amer) Est GFR (Non-Af Amer) BUN/Creatinine Ratio Glucose POC Glucose 105 H 139 H Calcium Magnesium Total Bilirubin AST ALT Alkaline Phosphatase Total Protein Albumin Globulin Albumin/Globulin Ratio Crossmatch See Detail 11/14/20 11/14/20 11/14/20 07:31 07:43 07:43 WBC 2.26 L RBC 3.24 L Hgb 9.2 L Hct 28.5 L MCV 88.0 MCH 28.4 MCHC 32.3 RDW Std Deviation 56.2 H RDW Coeff of Karina 18.2 H Plt Count 37 L MPV 10.4 Immature Gran % (Auto) 0.0 Neut % (Auto) 69.5 Lymph % (Auto) 21.2 [place] % (Auto) 5.8 Eos % (Auto) 3.1 Baso % (Auto) 0.4 Neut # (Auto) 1.57 Lymph # (Auto) 0.48 L [place] # (Auto) 0.13 Eos # (Auto) 0.07 Baso # (Auto) 0.01 Immature Gran # (Auto) 0.00 Platelet Estimate Decreased L Acanthocytes (Spur) 1+ Schistocytes 1+ Sodium 147 H Potassium 4.4 Chloride 122 H Carbon Dioxide 18 L Anion Gap 8.0 BUN 47 H Creatinine 1.86 H Est Cr Clr Drug Dosing 28.7 Est GFR ( Amer) 32.6 Est GFR (Non-Af Amer) 28.1 BUN/Creatinine Ratio 25.5 H Glucose 81 POC Glucose 85 Calcium 9.1 Magnesium 2.7 H Total Bilirubin 1.4 H D AST 34 ALT 22 Alkaline Phosphatase 128 H Total Protein 6.5 Albumin 2.8 L Globulin 3.7 Albumin/Globulin Ratio 0.8 L Crossmatch 11/14/20 11:09 WBC RBC Hgb Hct MCV MCH MCHC RDW Std Deviation RDW Coeff of Karina Plt Count MPV Immature Gran % (Auto) Neut % (Auto) Lymph % (Auto) [place] % (Auto) Eos % (Auto) Baso % (Auto) Neut # (Auto) Lymph # (Auto) [place] # (Auto) Eos # (Auto) Baso # (Auto) Immature Gran # (Auto) Platelet Estimate Acanthocytes (Spur) Schistocytes Sodium Potassium Chloride Carbon Dioxide Anion Gap BUN Creatinine Est Cr Clr Drug Dosing Est GFR ( Amer) Est GFR (Non-Af Amer) BUN/Creatinine Ratio Glucose POC Glucose 145 H Calcium Magnesium Total Bilirubin AST ALT Alkaline Phosphatase Total Protein Albumin Globulin Albumin/Globulin Ratio Crossmatch PG Care Time/CCT Total # of Minutes Spent Total Time Spent with Patient: Total time spent is greater than 50% in coordination of care (as documented) at patient's floor/unit and/or counseling patient: Coding Level of Care Code 67143 Subseq Hosp Care Lvl 3 Diagnoses Epistaxis R04.0 Lower GI bleed K92.2 Acute blood loss anemia D62 Symptomatic anemia D64.9 Hypernatremia E87.0 Pancytopenia D61.818 Chronic kidney disease, stage 4 (severe) N18.4 Restless leg syndrome G25.81 Hyperlipidemia E78.5 DM type 2 (diabetes mellitus, type 2) E11.65 Diabetes mellitus care home insulin use: without long[employer] foreman use Diabetes mellitus complication status: with hyperglycemia 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 K75.81; K74.60 Iron deficiency anemia D50.8 Iron deficiency anemia type: other iron deficiency Hypertension I10 Hypertension type: essential hypertension Pulmonary hypertension I27.20 Rheumatoid arthritis M06.9 Rheumatoid arthritis location: multiple sites Rheumatoid factor presence: unspecified presence Psoriatic arthritis L40.50 GERD (gastroesophageal reflux disease) K21.9 Esophagitis presence: esophagitis presence not specified Anxiety F41.9 DVT prophylaxis Z29.9 (1) DM type 2 (diabetes mellitus, type 2) Diabetes mellitus [employer] foreman insulin use: without care home use Diabetes mellitus complication status: with hyperglycemia Qualified Code(s): E11.65 - Type 2 diabetes mellitus with hyperglycemia (2) Iron deficiency anemia Iron deficiency anemia type: other iron deficiency Qualified Code(s): D50.8 - Other iron deficiency anemias (3) Hypertension Hypertension type: essential hypertension Qualified Code(s): I10 - Essential (primary) hypertension (4) Rheumatoid arthritis Rheumatoid arthritis location: multiple sites Rheumatoid factor presence: unspecified presence Qualified Code(s): M06.9 - Rheumatoid arthritis, unspecified (5) GERD (gastroesophageal reflux disease) Esophagitis presence: esophagitis presence not specified Qualified Code(s): K21.9 - Gastro-esophageal reflux disease without esophagitis
[2020-11-14] MEDS ORDERED: FUROSEMIDE 40 MG in SYRINGE 0 ML IV ONE (14:30)
[2020-11-14] MEDS: rOPINIRole HCL 1 MG TABLET PO SCH ×2 (15:24→20:25)
[2020-11-14] MEDS: MUPIROCIN 2% OINT 22 GM TUBE EXT SCH ×2 (15:24→20:22)
[2020-11-14] MEDS: INSULIN GLARGINE SOLOSTAR 100 UNITS/ML 3 ML PEN SC SCH (20:23)
[2020-11-15] MEDS: MUPIROCIN 2% OINT 22 GM TUBE EXT SCH ×3 (07:49→21:29)
[2020-11-15] MEDS: carvediloL 12.5 MG TAB PO SCH ×2 (07:50→21:24)
[2020-11-15] MEDS: MOMETASONE FUROATE 0.1% CR 15 GM TUBE EXT SCH (07:51)
[2020-11-15] MEDS: FOLIC ACID 1 MG TAB PO SCH ×2 (07:51→21:25)
[2020-11-15] MEDS: rifAXIMin 550 MG TABLET PO SCH ×2 (07:51→21:28)
[2020-11-15] MEDS: PANTOprazole 40 MG TAB PO SCH ×2 (07:51→21:27)
[2020-11-15] MEDS: CALCIUM 600MG + VIT D 400 IU TAB PO SCH (07:51)
[2020-11-15] MEDS: LACTULOSE SYRUP 30 GM/45 ML UDP PO SCH ×2 (07:52→21:24)
[2020-11-15 08:27] LABS: Hematocrit (blood only) 28.4 % (37-47); Hemoglobin 9.5 g/dL (12.0-16.0); Mean Corpuscular Hemoglobin 28.7 pg (25-34); Mean Corpuscular Hgb Conc 33.5 g/dL (32-36); Mean Corpuscular Volume 85.8 fL (80-100); RDW Coefficient of Variation 17.5 % (11.5-14.5); RDW Standard Deviation 54.5 fL (36.4-46.3); Red Blood Count 3.31 M/uL (4.2-5.4); White Blood Count 2.26 K/uL (4.8-10.8)
[2020-11-15 08:33] LABS: Mean Platelet Volume 10.1 fL (7.4-10.4); Platelet Count 38 K/uL (130-400)
[2020-11-15] MEDS: INSULIN ASPART 100 UNITS/ML 3 ML PEN SC SCH ×4 (08:36→21:26)
[2020-11-15 08:47] LABS: Basophils # (auto) 0.01 K/uL (0-0.2); Basophils % (auto) 0.4 %; Eosinophils # (auto) 0.08 K/uL (0-0.5); Eosinophils % (auto) 3.5 %; Immature Granulocytes # (auto) 0.01 K/uL (0.00-0.02); Immature Granulocytes % (auto) 0.4 %; Lymphocytes # (auto) 0.49 K/uL (1.2-3.4); Lymphocytes % (auto) 21.7 %; Monocytes # (auto) 0.14 K/uL (0.11-0.59); Monocytes % (auto) 6.2 %; Neutrophils # (auto) 1.53 K/uL (1.4-6.5); Neutrophils % (auto) 67.8 %
[2020-11-15 09:04] LABS: BUN Creatinine Ratio 24.3 (10-20); Calcium 8.8 mg/dl (8.5-10.1); Creatinine Clr Calc Pharmacy 30.6 ml/min; Est GFR (African American) 34.8; Magnesium 2.3 mg/dl (1.8-2.4); Potassium 4.4 mmol/L (3.5-5.1)
[2020-11-15] MEDS ORDERED: FUROSEMIDE 40 MG in SYRINGE 0 ML IV ONE ×2 (10:00→17:00)
[2020-11-15] MEDS: rOPINIRole HCL 1 MG TABLET PO SCH ×2 (14:35→21:28)
--- NOTE | 2020-11-15 14:49 | Hospitalist Progress Note ---
Date of Service November 15, 2020 Assessment & Plan (1) Volume overload: due to recent PRBC infusions and IV Fluids in setting of advanced cirrhosis - NOT from renal disease or CHF. still with GARCIA from such along with 15 pounds of weight above dry weight. NO discharge today. Give 2 doses of IV lasix today and re-eval in am for further diuresis. Needs better bp control as well. (2) Epistaxis: with resulting acute blood loss anemia. epistaxis resolved. likely was posterior bleed - I cannot visualize any areas of recent bleeding anteriorly. low platelets certainly contributing to this. bactroban ointment TID to both nares. saline spray prn. f/u with ENT, [facility], post-discharge (patient was to see them for this issue actually). (3) Lower GI bleed: GI consult appreciated. Suspected hemorrhoidal bleeding. H/H remain acceptable s/p PRBCs this admission. no plans for endoscopic evaluation. (4) Acute blood loss anemia: 2nd epistaxis and suspected hemorrhoidal bleeding. s/p 4 units PRBCs and 1 unit platelets this admission. H/H again acceptable today. Platelets low but acceptable w/ no further bleeding. (5) Symptomatic anemia: see above s/p 4 units PRBCs this admission H/H stable (6) Hypernatremia: chronic, 2nd chronic use of diuretics improved (7) Pancytopenia: 2nd to liver cirrhosis, hypersplenism, etc. cbc am b12/folate/tsh wnl (8) Chronic kidney disease, stage 4 (severe): baseline CrCl 20s bmp in am stable despite diuresis (9) Restless leg syndrome: cont home meds (10) Hyperlipidemia: (11) DM type 2 (diabetes mellitus, type 2): pharmacy managing BSGs labile and some lows but acceptable readings last 24 hours appreciate pharmacy assistance (12) 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: fairly advanced has had weight gain over the last 1-2 weeks in the setting of PRBCs, platelets, etc. see above in "volume overload" re-eval for more IV diuretic tomorrow as well (13) Iron deficiency anemia: ferritin 70s defer on IV Fe for now (14) Hypertension: uncontrolled cont coreg start hydralazine 10mg BID did not tolerate amlodipine and KACEY inhibitors in past (15) Pulmonary hypertension: noted (16) Rheumatoid arthritis: previously on prednisone in the past - no longer on such (17) Psoriatic arthritis: previously on prednisone in past - no longer on such (18) GERD (gastroesophageal reflux disease): PPI bid h/o esophageal varices on past EGD no evidence of variceal bleeding at the current time (19) Anxiety: (20) DVT prophylaxis: SCDs platelets <50 precluding chemical means updated at bedside once again today cleared for home by therapy d/c once volume status is more acceptable and BPs are improved Admission and Anticipated Discharge Date Admission Date: November 12, 2020 Subjective patient reports that her standing scale weight today of 167# is still well above baseline dry weight of 150-154 pounds still with GARCIA no orthopnea no cough eating ok no major epistaxis; had scant amount of pink-tinged blood this am only no rectal bleeding Review of Systems Constitutional: no fever, no chills, no body aches and no fatigue Respiratory: + dyspnea on exertion; no cough Cardiovascular: no orthopnea, no paroxysmal nocturnal dyspnea and no edema Gastrointestinal: no nausea and no vomiting Physical Exam Constitutional: no acute distress and no altered mental status ENMT: external ear and nose normal, oropharynx normal Respiratory: Auscultation: + diminished lung sounds (bases) and + crackles (bases) Cardiovascular: Rate/Rhythm: regular rate and regular rhythm Heart Sounds: normal S1 and normal S2 Vessels: + JVD (mild), posterior tibial pulses present and dorsalis pedis pulses present Extremities: no edema Gastrointestinal (Abdomen): normal bowel sounds, soft, nontender, no hepatosplenomegaly Skin: no rashes, warm and dry (but dry throughout and occasional excoriation tonya on thighs) no jaundice Psychiatric: A+Ox3, euthymic affect Results & Data Results & Data ([facility]) Vital Signs (Past 12 Hours) Vital Signs Temp Pulse Pulse Resp BP BP Pulse Ox 11/15/20 12:00 36.8 C 57 L 18 193/80 H 94 11/15/20 08:30 59 L 11/15/20 07:00 36.8 C 60 20 172/71 H 93 11/15/20 03:00 36.8 C 61 18 179/75 H 96 Laboratory Results Laboratory Results - last 24 hr 11/14/20 11/14/20 11/14/20 16:37 16:37 16:58 WBC RBC Hgb Hct MCV MCH MCHC RDW Std Deviation RDW Coeff of Karina Plt Count MPV Immature Gran % (Auto) Neut % (Auto) Lymph % (Auto) [place] % (Auto) Eos % (Auto) Baso % (Auto) Neut # (Auto) Lymph # (Auto) [place] # (Auto) Eos # (Auto) Baso # (Auto) Immature Gran # (Auto) Sodium Potassium Chloride Carbon Dioxide Anion Gap BUN Creatinine Est Cr Clr Drug Dosing Est GFR ( Amer) Est GFR (Non-Af Amer) BUN/Creatinine Ratio Glucose POC Glucose 66 L* 69 L* 121 H Calcium Magnesium 11/14/20 11/15/20 11/15/20 20:09 07:31 08:05 WBC 2.26 L RBC 3.31 L Hgb 9.5 L Hct 28.4 L MCV 85.8 MCH 28.7 MCHC 33.5 RDW Std Deviation 54.5 H RDW Coeff of Karina 17.5 H Plt Count 38 L MPV 10.1 Immature Gran % (Auto) 0.4 Neut % (Auto) 67.8 Lymph % (Auto) 21.7 [place] % (Auto) 6.2 Eos % (Auto) 3.5 Baso % (Auto) 0.4 Neut # (Auto) 1.53 Lymph # (Auto) 0.49 L [place] # (Auto) 0.14 Eos # (Auto) 0.08 Baso # (Auto) 0.01 Immature Gran # (Auto) 0.01 Sodium Potassium Chloride Carbon Dioxide Anion Gap BUN Creatinine Est Cr Clr Drug Dosing Est GFR ( Amer) Est GFR (Non-Af Amer) BUN/Creatinine Ratio Glucose POC Glucose 123 H 74 Calcium Magnesium 11/15/20 11/15/20 08:05 11:39 WBC RBC Hgb Hct MCV MCH MCHC RDW Std Deviation RDW Coeff of Karina Plt Count MPV Immature Gran % (Auto) Neut % (Auto) Lymph % (Auto) [place] % (Auto) Eos % (Auto) Baso % (Auto) Neut # (Auto) Lymph # (Auto) [place] # (Auto) Eos # (Auto) Baso # (Auto) Immature Gran # (Auto) Sodium 142 Potassium 4.4 Chloride 117 H Carbon Dioxide 19 L Anion Gap 6.0 BUN 43 H Creatinine 1.76 H Est Cr Clr Drug Dosing 30.6 Est GFR ( Amer) 34.8 Est GFR (Non-Af Amer) 30.0 BUN/Creatinine Ratio 24.3 H Glucose 77 POC Glucose 83 Calcium 8.8 Magnesium 2.3 PG Care Time/CCT Total # of Minutes Spent Total Time Spent with Patient: Total time spent is greater than 50% in coordination of care (as documented) at patient's floor/unit and/or counseling patient: Coding Level of Care Code 92318 Subseq Hosp Care Lvl 3 Diagnoses Volume overload E87.70 Epistaxis R04.0 Lower GI bleed K92.2 Acute blood loss anemia D62 Symptomatic anemia D64.9 Hypernatremia E87.0 Pancytopenia D61.818 Chronic kidney disease, stage 4 (severe) N18.4 Restless leg syndrome G25.81 Hyperlipidemia E78.5 DM type 2 (diabetes mellitus, type 2) E11.65 Diabetes mellitus complication status: with hyperglycemia Diabetes mellitus long term acute care registered nurse insulin use: without shelter use 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 K75.81; K74.60 Iron deficiency anemia D50.8 Iron deficiency anemia type: other iron deficiency Hypertension I10 Hypertension type: essential hypertension Pulmonary hypertension I27.20 Rheumatoid arthritis M06.9 Rheumatoid arthritis location: multiple sites Rheumatoid factor presence: unspecified presence Psoriatic arthritis L40.50 GERD (gastroesophageal reflux disease) K21.9 Esophagitis presence: esophagitis presence not specified Anxiety F41.9 DVT prophylaxis Z29.9 (1) Rheumatoid arthritis Rheumatoid arthritis location: multiple sites Rheumatoid factor presence: unspecified presence Qualified Code(s): M06.9 - Rheumatoid arthritis, unspecified (2) DM type 2 (diabetes mellitus, type 2) Diabetes mellitus complication status: with hyperglycemia Diabetes mellitus shelter insulin use: without long term acute care registered nurse use Qualified Code(s): E11.65 - Type 2 diabetes mellitus with hyperglycemia (3) Iron deficiency anemia Iron deficiency anemia type: other iron deficiency Qualified Code(s): D50.8 - Other iron deficiency anemias (4) GERD (gastroesophageal reflux disease) Esophagitis presence: esophagitis presence not specified Qualified Code(s): K21.9 - Gastro-esophageal reflux disease without esophagitis (5) Hypertension Hypertension type: essential hypertension Qualified Code(s): I10 - Essential (primary) hypertension
[2020-11-15] MEDS: hydrALAZINE 10 MG TAB PO SCH ×2 (15:55→21:28)
[2020-11-15] MEDS: INSULIN GLARGINE SOLOSTAR 100 UNITS/ML 3 ML PEN SC SCH (21:26)
[2020-11-16] MEDS: carvediloL 12.5 MG TAB PO SCH (07:45)
[2020-11-16] MEDS: PANTOprazole 40 MG TAB PO SCH (07:45)
[2020-11-16] MEDS: FOLIC ACID 1 MG TAB PO SCH (07:45)
[2020-11-16] MEDS: MUPIROCIN 2% OINT 22 GM TUBE EXT SCH ×2 (07:46→13:58)
[2020-11-16] MEDS: LACTULOSE SYRUP 30 GM/45 ML UDP PO SCH (07:46)
[2020-11-16] MEDS: rifAXIMin 550 MG TABLET PO SCH (07:46)
[2020-11-16] MEDS: CALCIUM 600MG + VIT D 400 IU TAB PO SCH (07:46)
[2020-11-16] MEDS: MOMETASONE FUROATE 0.1% CR 15 GM TUBE EXT SCH (07:47)
[2020-11-16 08:26] LABS: Hematocrit (blood only) 30.5 % (37-47); Hemoglobin 10.1 g/dL (12.0-16.0); Mean Corpuscular Hemoglobin 28.5 pg (25-34); Mean Corpuscular Hgb Conc 33.1 g/dL (32-36); Mean Corpuscular Volume 85.9 fL (80-100); RDW Coefficient of Variation 17.2 % (11.5-14.5); RDW Standard Deviation 52.8 fL (36.4-46.3); Red Blood Count 3.55 M/uL (4.2-5.4); White Blood Count 2.98 K/uL (4.8-10.8)
[2020-11-16] MEDS: INSULIN ASPART 100 UNITS/ML 3 ML PEN SC SCH ×2 (08:36→12:03)
[2020-11-16 08:37] LABS: Mean Platelet Volume 9.4 fL (7.4-10.4); Platelet Count 35 K/uL (130-400)
[2020-11-16 09:00] LABS: BUN Creatinine Ratio 21.4 (10-20); Calcium 8.8 mg/dl (8.5-10.1); Creatinine Clr Calc Pharmacy 27.1 ml/min; Est GFR (African American) 30.8; Est GFR (Non-African American) 26.5; Potassium 4.1 mmol/L (3.5-5.1)
[2020-11-16] MEDS ORDERED: hydrALAZINE 10 MG TAB PO SCH (09:00)
--- NOTE | 2020-11-16 11:50 | Hospitalist Progress Note ---
Date of Service November 16, 2020 Assessment & Plan (1) Epistaxis: with resulting acute blood loss anemia. epistaxis resolved. likely was posterior bleed low platelets certainly contributing to this. bactroban ointment TID to both nares. saline spray prn. (2) Lower GI bleed: GI consult appreciated. Suspected hemorrhoidal bleeding. H/H remain acceptable s/p PRBCs this admission. endoscopic evaluation as outpatient (3) Acute blood loss anemia: 2nd epistaxis and suspected hemorrhoidal bleeding. s/p 4 units PRBCs and 1 unit platelets this admission. H/H acceptable and platelets low but acceptable w/ no further bleeding. (4) Symptomatic anemia: see above (5) Hypernatremia: chronic, 2nd chronic use of diuretics (6) Pancytopenia: 2nd to liver cirrhosis, hypersplenism, etc. cbc am (7) Chronic kidney disease, stage 4 (severe): baseline CrCl 20s. Stable. (8) Restless leg syndrome: cont home meds (9) Hyperlipidemia: (10) DM type 2 (diabetes mellitus, type 2): pharmacy managing BSGs labile and some lows appreciate pharmacy assistance (11) 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: fairly advanced has had weight gain over the last 1-2 weeks in the setting of PRBCs, platelets, etc. gave IV diuretic 11/15 (12) Iron deficiency anemia: ferritin 70s defer on IV Fe for now (13) Hypertension: uncontrolled on admission cont coreg Improved (14) Pulmonary hypertension: noted (15) Rheumatoid arthritis: previously on prednisone in the past - no longer on such (16) Psoriatic arthritis: previously on prednisone in past - no longer on such (17) GERD (gastroesophageal reflux disease): PPI bid h/o esophageal varices on past EGD no evidence of variceal bleeding at the current time (18) Anxiety: (19) DVT prophylaxis: SCDs platelets <50 precluding chemical means Dispo: discharge to home today Admission and Anticipated Discharge Date Admission Date: November 12, 2020 Subjective Alert. Epistaxis has resolved. No overt GI bleeding. Hgb stable Review of Systems Review of Systems: All systems reviewed & are unremarkable except as noted in HPI & below Physical Exam Constitutional: WD/WN, vitals as above Eyes: PERRL, conjunctivae normal, anicteric sclerae ENMT: external ear and nose normal, oropharynx normal Neck: trachea midline, no thyromegaly Respiratory: normal respiratory effort, lungs clear to auscultation Cardiovascular: Rate/Rhythm: regular rate and regular rhythm Gastrointestinal (Abdomen): normal bowel sounds, soft, nontender, no hepatosplenomegaly Musculoskeletal: no cyanosis or clubbing, extremities motor strength 5/5 Skin: no rashes, warm and dry Neurologic: CN's II-XI intact bilaterally Psychiatric: A+Ox3, euthymic affect Results & Data Results & Data ([facility]) Vital Signs (Past 12 Hours) Vital Signs Temp Pulse Pulse Resp BP BP Pulse Ox 11/16/20 08:30 62 11/16/20 07:35 36.5 C 62 20 184/75 H 180/76 H 91 11/16/20 03:45 36.7 C 65 20 163/73 H 94 Laboratory Results 11/16/20 07:52 11/16/20 07:52 PG Care Time/CCT Total # of Minutes Spent Total Time Spent with Patient: Total time spent is greater than 50% in coordination of care (as documented) at patient's floor/unit and/or counseling patient: Coding Level of Care Code 05022 Subseq Hosp Care Lvl 3 Diagnoses Epistaxis R04.0 Lower GI bleed K92.2 Acute blood loss anemia D62 Symptomatic anemia D64.9 Hypernatremia E87.0 Pancytopenia D61.818 Chronic kidney disease, stage 4 (severe) N18.4 Restless leg syndrome G25.81 Hyperlipidemia E78.5 DM type 2 (diabetes mellitus, type 2) E11.65 Diabetes mellitus jail insulin use: without jail use Diabetes mellitus complication status: with hyperglycemia 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 K75.81; K74.60 Iron deficiency anemia D50.8 Iron deficiency anemia type: other iron deficiency Hypertension I10 Hypertension type: essential hypertension Pulmonary hypertension I27.20 Rheumatoid arthritis M06.9 Rheumatoid arthritis location: multiple sites Rheumatoid factor presence: unspecified presence Psoriatic arthritis L40.50 GERD (gastroesophageal reflux disease) K21.9 Esophagitis presence: esophagitis presence not specified Anxiety F41.9 DVT prophylaxis Z29.9 (1) DM type 2 (diabetes mellitus, type 2) Diabetes mellitus jail insulin use: without intermediate card tender use Diabetes mellitus complication status: with hyperglycemia Qualified Code(s): E11.65 - Type 2 diabetes mellitus with hyperglycemia (2) Iron deficiency anemia Iron deficiency anemia type: other iron deficiency Qualified Code(s): D50.8 - Other iron deficiency anemias (3) Hypertension Hypertension type: essential hypertension Qualified Code(s): I10 - Essential (primary) hypertension (4) Rheumatoid arthritis Rheumatoid arthritis location: multiple sites Rheumatoid factor presence: unspecified presence Qualified Code(s): M06.9 - Rheumatoid arthritis, unspecified (5) GERD (gastroesophageal reflux disease) Esophagitis presence: esophagitis presence not specified Qualified Code(s): K21.9 - Gastro-esophageal reflux disease without esophagitis
[2020-11-16] MEDS: rOPINIRole HCL 1 MG TABLET PO SCH (13:58)
--- NOTE | 2020-12-15 14:28 | Discharge Summary ---
Date of Service December 15, 2020 Admission HPI Per Admitting Provider 65 YOF with significant medical history of CKD, MAE cirrhosis, ascites, RLS, DM II, HLD, Chronic iron deficiency anemia, hfPref, chronic thrombocytopenia, CKD III. MELD 15, Child CHAPA- 6. Patient was recently discharged following admission for metabolic encephalopathy with increased ammonia and UTI. Patient comes in today for increase in her dyspnea and noted with her BM today that there was blood in the toilet, on her toilet paper and some streaking in her stool, but no clots. It was reported as small on her toilet paper, she had a guaiac test in the EMD that was positive, but no elia blood on the finger. She has also been having nose bleeds for the past 2 weeks as well with clots. She was anemic on discharge and did receive blood products las admission for 2 point HGB drop a that time. HGB at 7.0 on discharge. Patient denies any abdominal pain and her stools are chronically dark with her iron. Patient is very hemodynamically stable on evaluation, skin is warm and strong peripheral pulses, still appears volume contracted on her labs. Patient will be brought in monitored on telemetry, given 2 units of PRBC for goal of HGB 8, 1 six pack of platelets, and following of her intravascular volume and response. Principal Diagnosis I believeEpistaxis,, acute blood loss anemia Discharge Data Allergies Allergy/AdvReac Type Severity Reaction Status Date / Time sulfamethoxazole Allergy Intermediate RASH Verified 12/14/20 09:30 trimethoprim Allergy Intermediate RASH Verified 12/14/20 09:30 amlodipine AdvReac Intermediate confusion Verified 12/14/20 09:30 adhesive tape AdvReac Mild ITCHING Verified 12/14/20 09:30 Consultations 11/13/20 08:19 Consult Gastroenterology Routine Ordered Studies 11/12/20 13:05 CT abd pelvis wo con Stat Hospital Course (1) Epistaxis: (1) Epistaxis: with resulting acute blood loss anemia. epistaxis resolved. likely was posterior bleed low platelets certainly contributing to this. bactroban ointment TID to both nares. saline spray prn. (2) Lower GI bleed: GI consult appreciated. Suspected hemorrhoidal bleeding. H/H remain acceptable s/p PRBCs this admission. endoscopic evaluation as outpatient (3) Acute blood loss anemia: 2nd epistaxis and suspected hemorrhoidal bleeding. s/p 4 units PRBCs and 1 unit platelets this admission. H/H acceptable and platelets low but acceptable w/ no further bleeding. (4) Symptomatic anemia: see above (5) Hypernatremia: chronic, 2nd chronic use of diuretics (6) Pancytopenia: 2nd to liver cirrhosis, hypersplenism, etc. cbc am (7) Chronic kidney disease, stage 4 (severe): baseline CrCl 20s. Stable. 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 gave IV diuretic 11/15 (12) Iron deficiency anemia: ferritin 70s defer on IV Fe for now (13) Hypertension: uncontrolled on admission cont coreg Improved (14) Pulmonary hypertension: noted (15) Rheumatoid arthritis: previously on prednisone in the past - no longer on such (16) Psoriatic arthritis: previously on prednisone in past - no longer on such (17) GERD (gastroesophageal reflux disease): PPI bid h/o esophageal varices on past EGD no evidence of variceal bleeding at the current time (18) Anxiety: (19) DVT prophylaxis: SCDs platelets <50 precluding chemical means Dispo: discharge to home today Total Time Total Time Spent Total Time Spent (In Minutes): 35 minutes Total Time Includes: Examination of the Patient, Discharge Planning and Medication Reconciliation Discharge Plan Discharge Items Patient Disposition: Home - Home Health Services Reason For Visit: ANEMIA Discharge Diagnosis: Epistaxis. Acute blood loss anemia. hemorrhoidal bleeding Activity: Resume your previous activity Non-emergency contact: Primary Care Provider Call non-emergency contact if: you have any medication questions and your symptoms worsen Follow-up/Referrals: Rocío Alonso DO [Primary Care Provider] - 11/18/20 9:40 am (If you have any questions or need to change this appointment, please call [phone].) Diet: Carb Consistent or DM2 and Heart Healthy Addtl Attending Provider Instructions: Medications remain the same. Follow up with gastroenterology to schedule outpatient endoscopy Pending Studies at Discharge: No Stand-Alone Forms: My [facility], Smoking Cessation Medications and DC Order Prescriptions: New carvedilol 12.5 mg Tablet 12.5 mg PO BID Qty: 60 RF: 0 Continued hydroxyzine HCl 10 mg tablet 10 mg PO QID PRN (Reason: anxiety) Qty: 30 RF: 3 pantoprazole 40 mg tablet,delayed release (DR/EC) 40 mg PO BID Qty: 180 RF: 3 insulin aspart U-100 [Novolog Flexpen U-100 Insulin] 100 unit/mL (3 mL) insulin pen See Rx Instructions SQ TID RF: 0 Basaglar KwikPen U-100 Insulin 100 unit/mL (3 mL) insulin pen 15 unit subcut HS Qty: 1 RF: 5 clotrimazole-betamethasone 1-0.05 % cream 1 applic topical BID PRN (Reason: Skin Irritation) RF: 0 lactulose 20 gram/30 mL solution 45 ml PO BID RF: 0 Xifaxan 550 mg tablet 550 mg PO BID RF: 0 Forteo 20 mcg/dose - 600 mcg/2.4 mL pen injector 20 mcg SQ QAM RF: 0 sodium bicarbonate 650 mg tablet 1,300 mg PO BID RF: 0 mometasone 0.1 % cream 1 appln TOP QAM RF: 0 ropinirole 2 mg tablet 1 mg PO .QAFTERNOON RF: 0 ropinirole 2 mg Tablet 2 mg PO HS RF: 0 ferrous sulfate 325 mg (65 mg iron) tablet,delayed release (DR/EC) 325 mg PO Q OTHER DAY Qty: 30 RF: 2 No Action folic acid 1 mg tablet 1 mg PO BID Qty: 180 RF: 1 mupirocin 2 % ointment 1 applic topical BID Qty: 15 RF: 3 mometasone 0.1 % solution See Rx Instructions topical DAILY PRN (Reason: rash) Qty: 30 RF: 1 (DME) Dexcom G6 Transmitter Device See Rx Instructions .ROUTE .MEDSUPPLY Qty: 1 RF: 0 (DME) Dexcom G6 Sensor Device See Rx Instructions .ROUTE .MEDSUPPLY Qty: 3 RF: 0 hydralazine 10 mg tablet 50 mg PO BID RF: 0 furosemide 20 mg tablet 40 mg PO DAILY Qty: 30 RF: 3 hydralazine 10 mg tablet 20 mg PO BID 30 Days Qty: 120 RF: 2 Discharge Orders: Discharge Order (Routine); Ordered 11/16/20 Ordered By: Hang Rose Admission Data Admit Date/Time: 11/12/20 14:12 Attending Provider: Hang Rose Admit Provider: Erik Karimi Primary Care Provider: Rocío Alonso Other Providers: Shivani Carmen ; Yolanda De La Fuente Other Interventions: Discharge Summary Assessment (RN) Last Done: 11/16/20 12:42 Coding Level of Care Code D/C Day Management >30 mins Diagnoses Epistaxis R04.0
== END 2020-11-16 14:15 | disposition home health service (06) | DRG 378 ==
LOC: ED 10:28 → SUATTDRO 14:12 → 2W 14:12

== ENCOUNTER 2021-01-30 16:06 | Observation (INO) ==
[2021-01-30] MEDS ORDERED: ONDANSETRON INJ 2 MG/ML 2 ML VIAL IV STA (18:01)
--- NOTE | 2021-01-30 18:10 | Emergency Department Note ---
History of Present Illness General Chief complaint: Abdominal Pain Time Seen by Provider: 01/30/21 17:41 Source: patient History of Present Illness Provider complaint: Right upper quadrant abdominal pain Onset (ago): hour(s) Location: abdomen and right Radiation: non-radiation Severity: moderate Pain Consistency: + now resolved Maximum Pain Intensity: 7 Quality: + aching and + dull Relieved By: + none Exacerbated By: + none Associated symptoms: + nausea/vomiting; no chest pain, no cough, no fever/chills, no malaise and no shortness of breath This is a 65-year-old female who presents with right upper quadrant abdominal pain since this morning after eating breakfast. She just had coffee and toast. It was associated with vomiting. She rated it as 7 out of 10 in severity. No modifying factors. It is now almost completely gone. She does have a history of Fowler but denies a history of cholecystectomy. She states that she has had no fever, cough or cold symptoms, chest pain, shortness of breath, or urinary symptoms. She does have chronic diarrhea from taking lactulose but denies any hematochezia. Home Medications Medication Instructions Recorded Confirmed Type mometasone 1 appln TOP QAM 03/20/20 01/30/21 History insulin aspart U-100 100 unit/mL See Rx Instructions SQ TID ml 06/08/20 01/30/21 History (3 mL) subcutaneous pen insulin glargine 100 unit/mL (3 15 unit SUBCUT HS #1 box 06/08/20 01/30/21 Rx mL) subcutaneous pen clotrimazole-betamethasone 1 1 applic TOPICAL BID PRN g 08/26/20 01/30/21 History %-0.05 % topical cream lactulose 20 gram/30 mL oral 45 ml PO BID ml 08/26/20 01/30/21 History solution ferrous sulfate 325 mg PO Q OTHER DAY #30 tab 11/02/20 01/30/21 Rx sodium bicarbonate 650 mg tablet 1,300 mg PO BID tab 11/07/20 01/30/21 History folic acid 1 mg tablet 1 mg PO BID #180 tab 11/17/20 01/30/21 Rx blood-glucose sensor #3 ea 12/01/20 01/23/21 History blood-glucose transmitter #1 ea 12/01/20 01/23/21 History mometasone 0.1 % topical solution See Rx Instructions TOPICAL DAILY 12/14/20 01/30/21 Rx PRN #30 ml mupirocin 2 % topical ointment 1 applic TOPICAL BID #15 g 12/14/20 01/30/21 Rx hydralazine 10 mg tablet 20 mg PO BID #120 tab 12/20/20 01/30/21 Rx carvedilol 12.5 mg tablet 12.5 mg PO BID #180 tab 01/19/21 01/30/21 Rx furosemide 20 mg tablet 40 mg PO DAILY #180 tab 01/19/21 01/30/21 Rx hydroxyzine HCl 10 mg tablet 10 mg PO QID #360 tab 01/19/21 01/30/21 Rx rifaximin 550 mg tablet 550 mg PO BID #180 tab 01/19/21 01/30/21 Rx ropinirole 2 mg tablet 2 mg PO HS #90 tab 01/19/21 01/30/21 Rx ciprofloxacin HCl 500 mg tablet 500 mg PO BID 7 Days #14 tab 01/24/21 01/30/21 Rx omeprazole 40 mg capsule,delayed 40 mg PO BID #180 cap 01/26/21 01/30/21 Rx release ropinirole 1 mg PO QPM 01/30/21 01/30/21 History teriparatide [Forteo] 20 mcg SUBCUT QAM 01/30/21 01/30/21 History Allergies Allergy/AdvReac Type Severity Reaction Status Date / Time sulfamethoxazole Allergy Intermediate RASH Verified 01/30/21 18:00 trimethoprim Allergy Intermediate RASH Verified 01/30/21 18:00 amlodipine AdvReac Intermediate confusion Verified 01/30/21 18:00 adhesive tape AdvReac Mild ITCHING Verified 01/30/21 18:00 Past Med/Surg History Medical History Acute blood loss anemia Anemia of chronic disease Anxiety CHF (congestive heart failure) Chronic kidney disease, stage 3 (moderate) Diverticular disease DM type 2 (diabetes mellitus, type 2) Duodenal ulcer Esophageal varices Gastric ulcer GERD (gastroesophageal reflux disease) GI bleed History of GI bleed History of recent blood transfusion (~06/2019) Hyperlipidemia Hypertension Liver cirrhosis secondary to FOWLER Lower GI bleed Nausea and vomiting after administration of anesthetic agent Osteoarthritis Osteoporosis Pancytopenia Pleural effusion Psoriatic arthritis Risk for falls Surgical History H/O esophagogastroduodenoscopy 03/21/20 Dr. Shivani Carmen- EGD History of anesthesia reaction difficult to wake after bladder tack sx History of bilateral cataract extraction History of bladder surgery bladder tack History of colonoscopy History of esophagogastroduodenoscopy (EGD) multiple---last 06/22/19 Dr. Malena Marie [place] [facility] [place] of hemiarthroplasty of right shoulder January 2018 post fracture History of repair of right rotator cuff History of revision of total shoulder arthroplasty (12/29/18) Right shoulder, 12/29/18 History of shoulder surgery (~11/2019) Had right total arthroplasty removed 11/2019 History of tooth extraction all teeth S/P ORIF (open reduction internal fixation) fracture R shoulder, January 2018 S/P shoulder surgery (11/18/19) R TSA removal, I&D, placement of abx spacer Family History Grandmother (Paternal) Family history of diabetes mellitus Father COPD (chronic obstructive pulmonary disease) Mother Hypertension Family/Other Cancer Sister Ovarian cancer Denies family history of Prostate cancer Myocardial infarction Breast cancer Colorectal cancer Social History Smoking Status: Never smoker Tobacco Type: Cigarettes Age Started Using Tobacco: 17; Age Quit Using Tobacco: 31; packs per day: 1; Second Hand Exposure: No; Hx Alcohol Use: No Hx Substance Use: No Preferred Language: Kazakh Communication Ability: Effective Visual Impairment: Limited Hearing Ability: Normal Crime Specialist Required: No Beliefs That Will Affect Care: None marital status: Current Living Situation: Spouse Current Living Situation Comment: Lives with and son current occupational status: retired How many Children do You have: 2 Feels Safe at Home: Yes Childhood Exposure to Second-Hand Smoke: Yes Diet Comment: regular during the past year weight has: remained stable Dental Care, Regularly: No Physical Activity Frequency: Does not Exercise Seatbelt Use: always Sunscreen Use: Yes Assistive Devices: Walker Review of Systems See HPI for pertinent positives & negatives. and A total of 10 systems reviewed and were otherwise negative Physical Exam Vital Signs Vital Signs - 24 hr 01/30/21 16:33 01/30/21 18:08 01/30/21 18:12 Temperature 36.5 C Temperature Source Oral Pulse Rate 59 L 61 63 Pulse Rate from SpO2 Sensor 61 63 Pulse Rhythm Respiratory Rate 18 17 16 Respiratory Effort / Characteristics Respiratory Depth Blood Pressure 140/61 151/71 H Blood Pressure Mean 87 97 Pulse Oximetry 97 98 97 Oxygen Delivery Method Room Air Sepsis Recent Fever Within 48 Hours No Sepsis New/Unexplained Change in Mental Status N/A Sepsis Action Taken by Nursing No Action Required 01/30/21 18:30 01/30/21 18:32 01/30/21 19:57 Temperature Temperature Source Pulse Rate 63 63 62 Pulse Rate from SpO2 Sensor 63 62 Pulse Rhythm Regular Respiratory Rate 15 24 14 Respiratory Effort / Characteristics Respiratory Depth Blood Pressure 160/86 H 147/77 H Blood Pressure Mean 110 100 Pulse Oximetry 98 97 95 Oxygen Delivery Method Room Air Room Air Sepsis Recent Fever Within 48 Hours Sepsis New/Unexplained Change in Mental Status Sepsis Action Taken by Nursing 01/30/21 20:00 01/30/21 20:30 01/30/21 21:17 Temperature Temperature Source Pulse Rate 63 65 66 Pulse Rate from SpO2 Sensor 63 66 66 Pulse Rhythm Respiratory Rate 16 14 14 Respiratory Effort / Characteristics Respiratory Depth Blood Pressure 151/82 H 165/101 H 165/79 H Blood Pressure Mean 105 122 107 Pulse Oximetry 97 97 97 Oxygen Delivery Method Room Air Room Air Room Air Sepsis Recent Fever Within 48 Hours Sepsis New/Unexplained Change in Mental Status Sepsis Action Taken by Nursing 01/30/21 21:33 01/30/21 21:44 Temperature Temperature Source Pulse Rate 67 Pulse Rate from SpO2 Sensor 68 Pulse Rhythm Respiratory Rate 15 Respiratory Effort / Characteristics Non-Labored Spontaneous Respiratory Depth Normal Blood Pressure 167/83 H Blood Pressure Mean 111 Pulse Oximetry 95 Oxygen Delivery Method Room Air Sepsis Recent Fever Within 48 Hours Sepsis New/Unexplained Change in Mental Status Sepsis Action Taken by Nursing Constitutional: Vital signs reviewed. Eyes: Pupils are equal round reactive to light. Conjunctiva are noninjected. ENT: Pharynx is clear without erythema or exudate. Mucous membranes are moist. Neck supple without meningeal signs. Respiratory: Clear to auscultation bilaterally. Breath sounds are equal bi laterally. Cardiovascular: Regular rate and rhythm. No rubs or gallops. GI: Soft, nondistended with very mild right upper quadrant tenderness. No guarding. No Quinones sign. Bowel sounds are present. Musculoskeletal: No peripheral edema. No lower extremity tenderness. Integumentary: No cyanosis. or jaundice. Neurological: The patient is awake and alert. No focal deficits. Psychiatric: Normal affect. Not anxious appearing. Course Administered Medications Discontinued Medications Sodium Chloride (Nss 1000ml) 250 mls @ 999 mls/hr IV .Q16M ONE Stop: 01/30/21 20:10 Last Admin: 01/30/21 21:35 Dose: 999 mls/hr Documented by: [id number] Lactulose (Lactulose Syrup 30 Gm/45 Ml Udp) 30 gm PO NOW STA Stop: 01/30/21 20:36 Last Admin: 01/30/21 21:34 Dose: 30 gm Documented by: [id number] Ondansetron HCl (Ondansetron Inj 2 Mg/Ml 2 Ml Vial) 4 mg IV NOW STA Stop: 01/30/21 18:02 Last Admin: 01/30/21 18:22 Dose: 4 mg Documented by: [id number] Medical Decision Making Differential Diagnosis Cholelithiasis, choledocholithiasis, cholecystitis, peptic ulcer disease, cardiac, bowel obstruction Medical Records Attestation: I reviewed the patient's medical records. I did perform a limited focused review of portions of the patient's old chart on the electronic medical record. The patient was admitted in November of this year for anemia due to blood loss. The bleeding was thought to be from epistaxis and hemorrhoids. Home Medications Current Medication List: was personally reviewed by me Laboratory Data Attestation: I reviewed the patient's lab results. Result diagrams: 01/30/21 18:08 01/30/21 18:23 Lab Results 01/30/21 01/30/21 01/30/21 Range/Units 18:08 18:08 18:23 WBC 3.72 L (4.8-10.8) K/uL RBC 3.14 L (4.2-5.4) M/uL Hgb 9.5 L (12.0-16.0) g/dL Hct 27.9 L (37-47) % MCV 88.9 (80-100) fL MCH 30.3 (25-34) pg MCHC 34.1 (32-36) g/dL RDW Std Deviation 52.8 H (36.4-46.3) fL RDW Coeff of Karina 16.0 H (11.5-14.5) % Plt Count 38 L (130-400) K/uL MPV 10.9 H (7.4-10.4) fL Immature Gran % (Auto) 0.3 % Neut % (Auto) 76.5 % Lymph % (Auto) 14.8 % [place] % (Auto) 5.9 % Eos % (Auto) 2.2 % Baso % (Auto) 0.3 % Neut # (Auto) 2.85 (1.4-6.5) K/uL Lymph # (Auto) 0.55 L (1.2-3.4) K/uL [place] # (Auto) 0.22 (0.11-0.59) K/uL Eos # (Auto) 0.08 (0-0.5) K/uL Baso # (Auto) 0.01 (0-0.2) K/uL Immature Gran # (Auto) 0.01 (0.00-0.02) K/uL Platelet Estimate Decreased L (Normal) Sodium 144 (136-145) mmol/L Potassium 4.1 (3.5-5.1) mmol/L Chloride 113 H (98-107) mmol/L Carbon Dioxide 20 L (21-32) mmol/L Anion Gap 11.0 (3-11) BUN 62 H (7-18) mg/dl Creatinine 2.66 H (0.6-1.2) mg/dl Est Cr Clr Drug Dosing 19.0 ml/min Est GFR ( Amer) 21.1 ml/min Est GFR (Non-Af Amer) 18.2 ml/min BUN/Creatinine Ratio 23.2 H (10-20) Glucose 149 H (70-99) mg/dl Calcium 8.8 (8.5-10.1) mg/dl Total Bilirubin 1.9 H (0.2-1) mg/dl AST 59 H (15-37) U/L ALT 35 (12-78) U/L Alkaline Phosphatase 160 H (45-117) U/L Ammonia 52.1 H (11-32) umol/L Troponin I < 0.015 (0-0.045) ng/ml Total Protein 7.6 (6.4-8.2) gm/dl Albumin 2.9 L (3.4-5.0) gm/dl Globulin 4.7 H (2.5-4.0) gm/dl Albumin/Globulin Ratio 0.6 L (0.9-2) Lipase 437 H (73-393) U/L Urine Color Urine Appearance (Clear) Urine pH (4.5-7.5) Ur Specific [place] (1.000-1.030) Urine Protein (Negative) Urine Glucose (UA) (Negative) Urine Ketones (Negative) Urine Blood (Negative) Urine Nitrite (Negative) Urine Bilirubin (Negative) Urine Urobilinogen (Negative) Ur Leukocyte Esterase (Negative) Urine WBC (Auto) (0-5) /hpf Urine RBC (Auto) (0-4) /hpf U Hyaline Cast (Auto) (0-5) /lpf U Epithel Cells (Auto) (0-5) /lpf Urine Bacteria (Auto) (Negative) COVID-19 Eval Order SARS-CoV-2 (PCR) (Negative) 01/30/21 01/30/21 01/30/21 Range/Units 20:29 20:29 21:37 WBC (4.8-10.8) K/uL RBC (4.2-5.4) M/uL Hgb (12.0-16.0) g/dL Hct (37-47) % MCV (80-100) fL MCH (25-34) pg MCHC (32-36) g/dL RDW Std Deviation (36.4-46.3) fL RDW Coeff of Karina (11.5-14.5) % Plt Count (130-400) K/uL MPV (7.4-10.4) fL Immature Gran % (Auto) % Neut % (Auto) % Lymph % (Auto) % [place] % (Auto) % Eos % (Auto) % Baso % (Auto) % Neut # (Auto) (1.4-6.5) K/uL Lymph # (Auto) (1.2-3.4) K/uL [place] # (Auto) (0.11-0.59) K/uL Eos # (Auto) (0-0.5) K/uL Baso # (Auto) (0-0.2) K/uL Immature Gran # (Auto) (0.00-0.02) K/uL Platelet Estimate (Normal) Sodium (136-145) mmol/L Potassium (3.5-5.1) mmol/L Chloride (98-107) mmol/L Carbon Dioxide (21-32) mmol/L Anion Gap (3-11) BUN (7-18) mg/dl Creatinine (0.6-1.2) mg/dl Est Cr Clr Drug Dosing ml/min Est GFR ( Amer) ml/min Est GFR (Non-Af Amer) ml/min BUN/Creatinine Ratio (10-20) Glucose (70-99) mg/dl Calcium (8.5-10.1) mg/dl Total Bilirubin (0.2-1) mg/dl AST (15-37) U/L ALT (12-78) U/L Alkaline Phosphatase (45-117) U/L Ammonia (11-32) umol/L Troponin I (0-0.045) ng/ml Total Protein (6.4-8.2) gm/dl Albumin (3.4-5.0) gm/dl Globulin (2.5-4.0) gm/dl Albumin/Globulin Ratio (0.9-2) Lipase (73-393) U/L Urine Color Dark Yellow Urine Appearance Clear (Clear) Urine pH 5.5 (4.5-7.5) Ur Specific [place] 1.013 (1.000-1.030) Urine Protein 1+ H (Negative) Urine Glucose (UA) Negative (Negative) Urine Ketones Negative (Negative) Urine Blood 2+ H (Negative) Urine Nitrite Negative (Negative) Urine Bilirubin Negative (Negative) Urine Urobilinogen Negative (Negative) Ur Leukocyte Esterase Negative (Negative) Urine WBC (Auto) 1-5 (0-5) /hpf Urine RBC (Auto) >30 H (0-4) /hpf U Hyaline Cast (Auto) 1-5 (0-5) /lpf U Epithel Cells (Auto) 10-20 H (0-5) /lpf Urine Bacteria (Auto) Negative (Negative) COVID-19 Eval Order Covid19 at [facility] SARS-CoV-2 (PCR) NEGATIVE (Negative) Imaging Data Radiologist's Impression: Gallbladder Ultrasound 01/30/21 18:01 US gallbladder CLINICAL HISTORY: 65 years-old Female presenting with RUQ pain eval for gallstones. TECHNIQUE: Real-time grayscale ultrasound imaging of the right upper quadrant was performed for a focused evaluation at the site of clinical concern. COMPARISON: October 30, 2020 FINDINGS: Pancreas is not well seen due to overlying bowel gas. Liver is measuring 15.5 cm in size with heterogeneous coarsened echotexture mild diffuse increase in echogenicity. Nodular contour of the liver might be seen in liver cirrhosis. Blood flow within main pulmonary vein is hepatopedal. Gallbladder is distended with fluid. Few gallstones are seen within dependent portion of the gallbladder. There is mild thickening of the gallbladder wall measures measuring 0.8 cm. Pericholecystic edema is seen. Sonographic Quinones's sign is negative. Common bile duct is measuring 1.0 cm in diameter. Right kidney shows normal morphology and no evidence of hydronephrosis or nephrolithiasis. IMPRESSION: 1. Cholelithiasis. Thickening gallbladder wall and pericholecystic edema usually seen in cholecystitis however sonographic Quinones's sign is negative. 2. Liver cirrhosis. ACT 112: Negative or not required by law. Electronically signed by: Ivonne Grant DO 01/30/2021 8:04 PM ECG Data Attestation: I personally reviewed and interpreted this ECG as follows: Indication: + abdominal pain Rate (beats per minute): 63 Rhythm: + normal sinus ECG [place]: + Normal ECG ST segments: + Nonspecific ST abnormalities ECG Findings: no PVCs MDM Narrative I did evaluate the patient as noted above. The patient is presenting with right upper quadrant abdominal pain and vomiting. Her symptoms are mostly better. She does have some tenderness in the right upper quadrant. IV access was established. I did treat her with Zofran and normal saline IV. I did place an order for continuous cardiac monitoring. The monitor showed normal sinus rhythm at a rate of 65 bpm. I did order and personally review the patient's 12-lead EKG as described above. She has nonspecific ST changes. She denies having any chest pain or shortness of breath. I did order a urine analysis. She does not have a UTI. I did order and review the patient's blood work as noted in the electronic medical record. She has pancytopenia which is chronic for her. Her electrolytes demonstrate chronic elevation of her chloride and a CO2 of 20. Her creatinine is elevated above baseline at 2.66. Bilirubin is 1.9 and AST is 59. Again these are not elevated above her baseline. Her ammonia is 52. Troponin is negative. Lipase is slightly elevated at 437. I did order a right upper quadrant ultrasound. I did review the images myself as well as the radiology report as described above. She has gallstones with fluid around the gallbladder as well as thickening of the wall. I did reassess the patient. She again has very mild pain in the right upper quadrant. It is unclear if she has chronic cholecystitis. I did discuss the case with Dr. Tiwari of surgery who recommended hospitalization by the medical team. I did discuss the case with the hospitalist and leather case finisher. I did treat the patient with lactulose p.o. She was agreeable with the plan for hospitalization. Her screening Covid test was negative. Impression & Plan Cholecystitis, Pancytopenia, Acute kidney injury superimposed on chronic kidney disease, Hyperammonemia Discharge Plan Visit Data Chief Complaint: Abdominal Pain ED Provider: Erik Vasques Discharge Problem: Cholecystitis, Pancytopenia, Acute kidney injury superimposed on chronic kidney disease, Hyperammonemia Patient Disposition: Being Evaluated by Hospitalist Forms Stand Alone Forms: My [facility] Prescriptions Prescriptions: No Action folic acid 1 mg tablet 1 mg PO BID Qty: 180 RF: 1 hydralazine 10 mg tablet 20 mg PO BID Qty: 120 RF: 2 carvedilol 12.5 mg tablet 12.5 mg PO BID Qty: 180 RF: 1 furosemide 20 mg tablet 40 mg PO DAILY Qty: 180 RF: 1 hydroxyzine HCl 10 mg tablet 10 mg PO QID Qty: 360 RF: 1 Xifaxan 550 mg tablet 550 mg PO BID Qty: 180 RF: 1 ropinirole 2 mg tablet 2 mg PO HS Qty: 90 RF: 1 ciprofloxacin HCl [Cipro] 500 mg tablet 500 mg PO BID 7 Days Qty: 14 RF: 0 omeprazole 40 mg capsule,delayed release(DR/EC) 40 mg PO BID Qty: 180 RF: 3 mupirocin 2 % ointment 1 applic topical BID Qty: 15 RF: 3 mometasone 0.1 % solution See Rx Instructions topical DAILY PRN (Reason: rash) Qty: 30 RF: 1 (DME) Dexcom G6 Transmitter Device See Rx Instructions .ROUTE .MEDSUPPLY Qty: 1 RF: 0 (DME) Dexcom G6 Sensor Device See Rx Instructions .ROUTE .MEDSUPPLY Qty: 3 RF: 0 insulin aspart U-100 [Novolog Flexpen U-100 Insulin] 100 unit/mL (3 mL) insulin pen See Rx Instructions SQ TID RF: 0 Basaglar KwikPen U-100 Insulin 100 unit/mL (3 mL) insulin pen 15 unit subcut HS Qty: 1 RF: 5 clotrimazole-betamethasone 1-0.05 % cream 1 applic topical BID PRN (Reason: Skin Irritation) RF: 0 lactulose 20 gram/30 mL solution 45 ml PO BID RF: 0 sodium bicarbonate 650 mg tablet 1,300 mg PO BID RF: 0 mometasone 0.1 % cream 1 appln TOP QAM RF: 0 ferrous sulfate 325 mg (65 mg iron) tablet,delayed release (DR/EC) 325 mg PO Q OTHER DAY Qty: 30 RF: 2 teriparatide [Forteo] 20 mcg/dose (620mcg/2.48mL) pen injector 20 mcg SUBCUT QAM RF: 0 ropinirole 2 mg tablet 1 mg PO QPM RF: 0 Referrals Referrals: Rocío Alonso DO [Primary Care Provider] -
[2021-01-30 18:28] LABS: Hematocrit (blood only) 27.9 % (37-47); Hemoglobin 9.5 g/dL (12.0-16.0); Mean Corpuscular Hemoglobin 30.3 pg (25-34); Mean Corpuscular Hgb Conc 34.1 g/dL (32-36); Mean Corpuscular Volume 88.9 fL (80-100); RDW Standard Deviation 52.8 fL (36.4-46.3); Red Blood Count 3.14 M/uL (4.2-5.4); White Blood Count 3.72 K/uL (4.8-10.8)
[2021-01-30 18:44] LABS: Alanine Aminotransferase 35 U/L (12-78); Albumin Level 2.9 gm/dl (3.4-5.0); Aspartate Aminotransferase 59 U/L (15-37); BUN Creatinine Ratio 23.2 (10-20); Blood Urea Nitrogen 62 mg/dl (7-18); Calcium 8.8 mg/dl (8.5-10.1); Carbon Dioxide 20 mmol/L (21-32); Chloride 113 mmol/L (98-107); Est GFR (African American) 21.1 ml/min; Est GFR (Non-African American) 18.2 ml/min; Glucose 149 mg/dl (70-99); Lipase 437 U/L (73-393); Potassium 4.1 mmol/L (3.5-5.1); Sodium 144 mmol/L (136-145)
[2021-01-30 18:49] LABS: Albumin Globulin Ratio 0.6 (0.9-2); Alkaline Phosphatase 160 U/L (45-117); Bilirubin,Total 1.9 mg/dl (0.2-1); Globulin 4.7 gm/dl (2.5-4.0); Total Protein 7.6 gm/dl (6.4-8.2); Troponin I < 0.015 ng/ml (0-0.045)
[2021-01-30 18:54] LABS: Basophils # (auto) 0.01 K/uL (0-0.2); Basophils % (auto) 0.3 %; Eosinophils # (auto) 0.08 K/uL (0-0.5); Eosinophils % (auto) 2.2 %; Immature Granulocytes # (auto) 0.01 K/uL (0.00-0.02); Immature Granulocytes % (auto) 0.3 %; Lymphocytes # (auto) 0.55 K/uL (1.2-3.4); Lymphocytes % (auto) 14.8 %; Mean Platelet Volume 10.9 fL (7.4-10.4); Monocytes # (auto) 0.22 K/uL (0.11-0.59); Monocytes % (auto) 5.9 %; Neutrophils # (auto) 2.85 K/uL (1.4-6.5); Neutrophils % (auto) 76.5 %; Platelet Count 38 K/uL (130-400); Platelet Estimate Decreased (Normal)
[2021-01-30] MEDS ORDERED: SODIUM CHLORIDE 0.9% 1000ML 250 ML IV ONE (19:55)
--- NOTE | 2021-01-30 20:05 | Ultrasound Report ---
US gallbladder CLINICAL HISTORY: 65 years-old Female presenting with RUQ pain eval for gallstones. TECHNIQUE: Real-time grayscale ultrasound imaging of the right upper quadrant was performed for a foc used evaluation at the site of clinical concern. COMPARISON: October 30, 2020 FINDINGS: Pancreas is not well seen due to overlying bowel gas. Liver is measuring 15.5 cm in size with heterogeneous coarsened echotexture mild diffuse increase in echogenicity. Nodular contour of the liver might be seen in liver cirrhosis. Blood flow within main pulmonary vein is hepatopedal. Gallbladder is distended with fluid. Few gallstones are seen within dependent portion of the gallblad balwinder. There is mild thickening of the gallbladder wall measures measuring 0.8 cm. Pericholecystic edema is seen. Sonographic Quinones's sign is negative. Common bile duct is measuring 1.0 cm in diameter. Right kidney shows normal morphology and no evidence of hydronephrosis or nephrolithiasis. IMPRESSION: 1. Cholelithiasis. Thickening gallbladder wall and pericholecystic edema usually seen in cholecystit is however sonographic Quinones's sign is negative. 2. Liver cirrhosis. ACT 112: Negative or not required by law. Electronically signed by: Ivonne Grant DO 01/30/2021 8:04 PM
[2021-01-30] MEDS ORDERED: LACTULOSE SYRUP 30 GM/45 ML UDP PO STA (20:35)
--- NOTE | 2021-01-30 21:01 | Surgery Consultation ---
Date of Consultation January 30, 2021 Assessment & Plan (1) Liver cirrhosis secondary to FOWLER: (2) Biliary colic: pt is a 65 year-old female who presents to Er with one day history RUQ pain with vomiting, IMPRESSION: U/S study, 1. Cholelithiasis. Thickening gallbladder wall and pericholecystic edema usually seen in cholecystitis however sonographic Quinones's sign is negative. 2. Liver cirrhosis. IMP: cholelithiasis, biliary colic base on pt has liver failure and she is candidate for liver transplant, pt should to transfer higher level care for hepatic surgery to do her surgery( cholecystectomy), pt will be admitted to hospital by medicine team for work up, once stable pt should transfer to higher level care,pt and her understood, I answered all questions, consult GI doctor, for liver failure, cirrhosis, Present on Admission?: Yes History of Present Illness History of Present Illness History of Present Illness General Chief complaint: Abdominal Pain Time Seen by Provider: 01/30/21 17:41 Source: patient History of Present Illness Provider complaint: Right upper quadrant abdominal pain Onset (ago): hour(s) Location: abdomen and right Radiation: non-radiation Severity: moderate Pain Consistency: + now resolved Maximum Pain Intensity: 7 Quality: + aching and + dull Relieved By: + none Exacerbated By: + none Associated symptoms: + nausea/vomiting; no chest pain, no cough, no fever/chills, no malaise and no shortness of breath This is a 65-year-old female who presents with right upper quadrant abdominal pain since this morning after eating breakfast. She just had coffee and toast. It was associated with vomiting. She rated it as 7 out of 10 in severity. No modifying factors. It is now almost completely gone. She does have a history o f Fowler but denies a history of cholecystectomy. She states that she has had no fever, cough or cold symptoms, chest pain, shortness of breath, or urinary symptoms. She does have chronic diarrhea from taking lactulose but denies any hematochezia. I ( Carmen Gibson mD ) got a call for consult cholecystitis, I reviewed pt's H/P, labs, U/S study with pt and his , Home Medications Medication Instructions Recorded Confirmed Type mometasone 1 appln TOP QAM 03/20/20 01/30/21 History insulin aspart U-100 100 unit/mL See Rx Instructions SQ TID ml 06/08/20 01/30/21 History (3 mL) subcutaneous pen insulin glargine 100 unit/mL (3 15 unit SUBCUT HS #1 box 06/08/20 01/30/21 Rx mL) subcutaneous pen clotrimazole-betamethasone 1 1 applic TOPICAL BID PRN g 08/26/20 01/30/21 History %-0.05 % topical cream lactulose 20 gram/30 mL oral 45 ml PO BID ml 08/26/20 01/30/21 History solution ferrous sulfate 325 mg PO Q OTHER DAY #30 tab 11/02/20 01/30/21 Rx sodium bicarbonate 650 mg tablet 1,300 mg PO BID tab 11/07/20 01/30/21 History folic acid 1 mg tablet 1 mg PO BID #180 tab 11/17/20 01/30/21 Rx blood-glucose sensor #3 ea 12/01/20 01/23/21 History blood-glucose transmitter #1 ea 12/01/20 01/23/21 History mometasone 0.1 % topical solution See Rx Instructions TOPICAL DAILY 12/14/20 01/30/21 Rx PRN #30 ml mupirocin 2 % topical ointment 1 applic TOPICAL BID #15 g 12/14/20 01/30/21 Rx hydralazine 10 mg tablet 20 mg PO BID #120 tab 12/20/20 01/30/21 Rx carvedilol 12.5 mg tablet 12.5 mg PO BID #180 tab 01/19/21 01/30/21 Rx furosemide 20 mg tablet 40 mg PO DAILY #180 tab 01/19/21 01/30/21 Rx hydroxyzine HCl 10 mg tablet 10 mg PO QID #360 tab 01/19/21 01/30/21 Rx rifaximin 550 mg tablet 550 mg PO BID #180 tab 01/19/21 01/30/21 Rx ropinirole 2 mg tablet 2 mg PO HS #90 tab 01/19/21 01/30/21 Rx ciprofloxacin HCl 500 mg tablet 500 mg PO BID 7 Days #14 tab 01/24/21 01/30/21 Rx omeprazole 40 mg capsule,delayed 40 mg PO BID #180 cap 01/26/21 01/30/21 Rx release ropinirole 1 mg PO QPM 01/30/21 01/30/21 History teriparatide [Forteo] 20 mcg SUBCUT QAM 01/30/21 01/30/21 History Allergies Allergy/AdvReac Type Severity Reaction Status Date / Time sulfamethoxazole Allergy Intermediate RASH Verified 01/30/21 18:00 trimethoprim Allergy Intermediate RASH Verified 01/30/21 18:00 amlodipine AdvReac Intermediate confusion Verified 01/30/21 18:00 adhesive tape AdvReac Mild ITCHING Verified 01/30/21 18:00 Past Med/Surg History Medical History Acute blood loss anemia Anemia of chronic disease Anxiety CHF (congestive heart failure) Chronic kidney disease, stage 3 (moderate) Diverticular disease DM type 2 (diabetes mellitus, type 2) Duodenal ulcer Esophageal varices Gastric ulcer GERD (gastroesophageal reflux disease) GI bleed History of GI bleed History of recent blood transfusion (~06/2019) Hyperlipidemia Hypertension Liver cirrhosis secondary to FOWLER Lower GI bleed Nausea and vomiting after administration of anesthetic agent Osteoarthritis Osteoporosis Pancytopenia Pleural effusion Psoriatic arthritis Risk for falls Surgical History H/O esophagogastroduodenoscopy 03/21/20 Dr. Shivani Carmen- EGD History of anesthesia reaction difficult to wake after bladder tack sx History of bilateral cataract extraction History of bladder surgery bladder tack History of colonoscopy History of esophagogastroduodenoscopy (EGD) multiple---last 06/22/19 Dr. Malena Marie at [facility] [place] History of hemiarthroplasty of right shoulder January 2018 post fracture History of repair of right rotator cuff History of revision of total shoulder arthroplasty (12/29/18) Right shoulder, 12/29/18 History of shoulder surgery (~11/2019) Had right total arthroplasty removed 11/2019 History of tooth extraction all teeth S/P ORIF (open reduction internal fixation) fracture R shoulder, January 2018 S/P shoulder surgery (11/18/19) R TSA removal, I&D, placement of abx spacer Family History Grandmother (Paternal) Family history of diabetes mellitus Father COPD (chronic obstructive pulmonary disease) Mother Hypertension Family/Other Cancer Sister Ovarian cancer Denies family history of Prostate cancer Myocardial infarction Breast cancer Colorectal cancer Social History Smoking Status: Never smoker Tobacco Type: Cigarettes Age Started Using Tobacco: 17; Age Quit Using Tobacco: 31; packs per day: 1; Second Hand Exposure: No; Hx Alcohol Use: No Hx Substance Use: No Preferred Language: Chilean Communication Ability: Effective Visual Impairment: Limited Hearing Ability: Normal Leather Drier Required: No Beliefs That Will Affect Care: None marital status: Current Living Situation: Spouse Current Living Situation Comment: Lives with and son current occupational status: retired How many Children do You have: 2 Feels Safe at Home: Yes Childhood Exposure to Second-Hand Smoke: Yes Diet Comment: regular during the past year weight has: remained stable Dental Care, Regularly: No Physical Activity Frequency: Does not Exercise Seatbelt Use: always Sunscreen Use: Yes Assistive Devices: Walker Review of Systems See HPI for pertinent positives & negatives. and A total of 10 systems reviewed and were otherwise negative Allergies Allergy/AdvReac Type Severity Reaction Status Date / Time sulfamethoxazole Allergy Intermediate RASH Verified 01/30/21 18:00 trimethoprim Allergy Intermediate RASH Verified 01/30/21 18:00 amlodipine AdvReac Intermediate confusion Verified 01/30/21 18:00 adhesive tape AdvReac Mild ITCHING Verified 01/30/21 18:00 Home Medications Medication Instructions Recorded Confirmed Type mometasone 1 appln TOP QAM 03/20/20 01/30/21 History insulin aspart U-100 100 unit/mL See Rx Instructions SQ TID ml 06/08/20 01/30/21 History (3 mL) subcutaneous pen insulin glargine 100 unit/mL (3 15 unit SUBCUT HS #1 box 06/08/20 01/30/21 Rx mL) subcutaneous pen clotrimazole-betamethasone 1 1 applic TOPICAL BID PRN g 08/26/20 01/30/21 History %-0.05 % topical cream lactulose 20 gram/30 mL oral 45 ml PO BID ml 08/26/20 01/30/21 History solution ferrous sulfate 325 mg PO Q OTHER DAY #30 tab 11/02/20 01/30/21 Rx sodium bicarbonate 650 mg tablet 1,300 mg PO BID tab 11/07/20 01/30/21 History folic acid 1 mg tablet 1 mg PO BID #180 tab 11/17/20 01/30/21 Rx blood-glucose sensor #3 ea 12/01/20 01/23/21 History blood-glucose transmitter #1 ea 12/01/20 01/23/21 History mometasone 0.1 % topical solution See Rx Instructions TOPICAL DAILY 12/14/20 01/30/21 Rx PRN #30 ml mupirocin 2 % topical ointment 1 applic TOPICAL BID #15 g 12/14/20 01/30/21 Rx hydralazine 10 mg tablet 20 mg PO BID #120 tab 12/20/20 01/30/21 Rx carvedilol 12.5 mg tablet 12.5 mg PO BID #180 tab 01/19/21 01/30/21 Rx furosemide 20 mg tablet 40 mg PO DAILY #180 tab 01/19/21 01/30/21 Rx hydroxyzine HCl 10 mg tablet 10 mg PO QID #360 tab 01/19/21 01/30/21 Rx rifaximin 550 mg tablet 550 mg PO BID #180 tab 01/19/21 01/30/21 Rx ropinirole 2 mg tablet 2 mg PO HS #90 tab 01/19/21 01/30/21 Rx ciprofloxacin HCl 500 mg tablet 500 mg PO BID 7 Days #14 tab 01/24/21 01/30/21 Rx omeprazole 40 mg capsule,delayed 40 mg PO BID #180 cap 01/26/21 01/30/21 Rx release ropinirole 1 mg PO QPM 01/30/21 01/30/21 History teriparatide [Forteo] 20 mcg SUBCUT QAM 01/30/21 01/30/21 History Patient History Medical History Acute blood loss anemia Anemia of chronic disease Anxiety CHF (congestive heart failure) Chronic kidney disease, stage 3 (moderate) Diverticular disease DM type 2 (diabetes mellitus, type 2) Duodenal ulcer Esophageal varices Gastric ulcer GERD (gastroesophageal reflux disease) GI bleed History of GI bleed History of recent blood transfusion (~06/2019) Hyperlipidemia Hypertension Liver cirrhosis secondary to FOWLER Lower GI bleed Nausea and vomiting after administration of anesthetic agent Osteoarthritis Osteoporosis Pancytopenia Pleural effusion Psoriatic arthritis Risk for falls Surgical History H/O esophagogastroduodenoscopy 03/21/20 Dr. Shivani Carmen- EGD History of anesthesia reaction difficult to wake after bladder tack sx History of bilateral cataract extraction History of bladder surgery bladder tack History of colonoscopy History of esophagogastroduodenoscopy (EGD) multiple---last 06/22/19 Dr. Malena Marie [address] [facility] [place] History of hemiarthroplasty of right shoulder January 2018 post fracture History of repair of right rotator cuff History of revision of total shoulder arthroplasty (12/29/18) Right shoulder, 12/29/18 History of shoulder surgery (~11/2019) Had right total arthroplasty removed 11/2019 History of tooth extraction all teeth S/P ORIF (open reduction internal fixation) fracture R shoulder, January 2018 S/P shoulder surgery (11/18/19) R TSA removal, I&D, placement of abx spacer Family History Grandmother (Paternal) Family history of diabetes mellitus Father COPD (chronic obstructive pulmonary disease) Mother Hypertension Family/Other Cancer Sister Ovarian cancer Denies family history of Prostate cancer Myocardial infarction Breast cancer Colorectal cancer Social History Smoking Status: Never smoker Tobacco Type: Cigarettes Age Started Using Tobacco: 17; Age Quit Using Tobacco: 31; packs per day: 1; Second Hand Exposure: No; Hx Alcohol Use: No Hx Substance Use: No Preferred Language: [place]an Communication Ability: Effective Visual Impairment: Limited Hearing Ability: Normal Leather Drier Required: No Beliefs That Will Affect Care: None marital status: Current Living Situation: Spouse Current Living Situation Comment: Lives with and son current occupational status: retired How many Children do You have: 2 Feels Safe at Home: Yes Childhood Exposure to Second-Hand Smoke: Yes Diet Comment: regular during the past year weight has: remained stable Dental Care, Regularly: No Physical Activity Frequency: Does not Exercise Seatbelt Use: always Sunscreen Use: Yes Assistive Devices: Walker Physical Exam Constitutional: WD/WN, vitals as above well developed and well nourished Eyes: PERRL, conjunctivae normal, anicteric sclerae Neck: trachea midline, no thyromegaly Respiratory: normal respiratory effort, lungs clear to auscultation Cardiovascular: RRR, no murmur, no edema Rate/Rhythm: regular rate and regular rhythm Gastrointestinal (Abdomen): Percussion/Palpation: abdomen soft mild tenderness at RUQ, no rebound pain, no distend, BS + Musculoskeletal: no cyanosis or clubbing, extremities motor strength 5/5 Neurologic: awake Psychiatric: Orientation: alert and oriented x 3 Results & Data ([facility]) Vital Signs (Past 12 Hours) Vital Signs Temp Pulse Resp BP Pulse Ox 01/30/21 20:30 65 14 165/101 H 97 01/30/21 20:00 63 16 151/82 H 97 01/30/21 19:57 62 14 147/77 H 95 01/30/21 18:32 63 24 97 01/30/21 18:30 63 15 160/86 H 98 01/30/21 18:12 63 16 97 01/30/21 18:08 61 17 151/71 H 98 01/30/21 16:33 36.5 C 59 L 18 140/61 97 Laboratory Results Abnormal lab results 01/30/21 01/30/21 01/30/21 Range/Units 18:08 18:08 18:23 WBC 3.72 L (4.8-10.8) K/uL RBC 3.14 L (4.2-5.4) M/uL Hgb 9.5 L (12.0-16.0) g/dL Hct 27.9 L (37-47) % RDW Std Deviation 52.8 H (36.4-46.3) fL RDW Coeff of Karina 16.0 H (11.5-14.5) % Plt Count 38 L (130-400) K/uL MPV 10.9 H (7.4-10.4) fL Lymph # (Auto) 0.55 L (1.2-3.4) K/uL Platelet Estimate Decreased L (Normal) Chloride 113 H (98-107) mmol/L Carbon Dioxide 20 L (21-32) mmol/L BUN 62 H (7-18) mg/dl Creatinine 2.66 H (0.6-1.2) mg/dl BUN/Creatinine Ratio 23.2 H (10-20) Glucose 149 H (70-99) mg/dl Total Bilirubin 1.9 H (0.2-1) mg/dl AST 59 H (15-37) U/L Alkaline Phosphatase 160 H (45-117) U/L Ammonia 52.1 H (11-32) umol/L Albumin 2.9 L (3.4-5.0) gm/dl Globulin 4.7 H (2.5-4.0) gm/dl Albumin/Globulin Ratio 0.6 L (0.9-2) Lipase 437 H (73-393) U/L Diagnostic Findings US gallbladder CLINICAL HISTORY: 65 years-old Female presenting with RUQ pain eval for gallstones. TECHNIQUE: Real-time grayscale ultrasound imaging of the right upper quadrant was performed for a focused evaluation at the site of clinical concern. COMPARISON: October 30, 2020 FINDINGS: Pancreas is not well seen due to overlying bowel gas. Liver is measuring 15.5 cm in size with heterogeneous coarsened echotexture mild diffuse increase in echogenicity. Nodular contour of the liver might be seen in liver cirrhosis. Blood flow within main pulmonary vein is hepatopedal. Gallbladder is distended with fluid. Few gallstones are seen within dependent portion of the gallbladder. There is mild thickening of the gallbladder wall measures measuring 0.8 cm. Pericholecystic edema is seen. Sonographic Quinones's sign is negative. Common bile duct is measuring 1.0 cm in diameter. Right kidney shows normal morphology and no evidence of hydronephrosis or nephrolithiasis. IMPRESSION: 1. Cholelithiasis. Thickening gallbladder wall and pericholecystic edema usually seen in cholecystitis however sonographic Quinones's sign is negative. 2. Liver cirrhosis.
[2021-01-30 21:53] LABS: Appearance Urine Clear (Clear); Bacteria Urine Automated Negative (Negative); Bilirubin Urine Negative (Negative); Blood Urine 2+ (Negative); Color Urine Dark Yellow; Glucose Urine UA Negative (Negative); Ketones Urine Negative (Negative); Leukocyte Esterase Urine Negative (Negative); Nitrite Urine Negative (Negative); Protein Urine 1+ (Negative); RBC Urine Automated >30 /hpf (0-4); Specific Gravity Urine 1.013 (1.000-1.030); Urobilinogen Urine Negative (Negative); pH Urine 5.5 (4.5-7.5)
--- NOTE | 2021-01-30 22:24 | History & Physical Report ---
Date of Service January 30, 2021 Assessment & Plan (1) Abnormal findings on diagnostic imaging of gallbladder: Both ultrasound of abdomen and CT of abdomen notes distended gallbladder with diffuse wall thickening and cholelithiasis, with possible cholecystitis NPO NSS @ 100 mils per hour Zosyn 4.5 g IV every 8 hours Famotidine 20 mg IV every 12 hours Zofran 4 mg IV every 6 hours as needed Order HIDA scan Present on Admission?: Yes (2) Acute kidney injury superimposed on chronic kidney disease: Creatinine 2.66 upon admission, with range 1.77-1.98. Repeat laboratories in the a.m. after fluid resuscitation Continue sodium bicarbonate Present on Admission?: Yes (3) Liver cirrhosis secondary to FOWLER: Liver cirrhosis secondary to Fowelr/splenomegaly/perisplenic and upper abdominal varices/portal hypertension- Patient has pending appointments with hepatology at [facility]. She reports a pending appointment with Dr. Yolanda De La Fuente for an upper endoscopy in early February, who will be consulted this admission, to see if study needs to be done sooner Continue lactulose, rifaximin Present on Admission?: Yes (4) DM type 2 (diabetes mellitus, type 2): Hold insulin glargine Placed on Accu-Cheks before meals and at bedtime with NovoLog coverage per scale Present on Admission?: Yes (5) Hypertension: Continue carvedilol, hydralazine. Hold furosemide Present on Admission?: Yes (6) Gastric ulcer: (7) Duodenal ulcer: (8) Esophageal varices: History of Present Illness Chief Complaint: Patient presents to the emergency department with right upper quadrant pain Primary Care Provider: Rocío Alonso DO The patient is a 65-year-old female with a past medical history including liver cirrhosis secondary to FOWLER, hyperammonemia, epistaxis, CKD stage III, hypertension, hyperlipidemia, diabetes mellitus type 2, pancytopenia, hepatic encephalopathy, HENRIQUE, osteoporosis, history of GI bleed, mitral regurgitation, vitamin D deficiency and anemia of chronic disease. She reports that she had a worsening of her chronic right upper quadrant abdominal pain, with an episode of vomiting, after eating breakfast in the morning, that consisted of coffee and toast. At the time of my assessment in the ED, the patient was feeling completely back to normal. She reports that she is scheduled for an upper endoscopy by Dr. Yolanda De La Fuente on February 17, and is scheduled to see a temperature control inspector at [facility] in [place] in a few weeks. Allergies Allergy/AdvReac Type Severity Reaction Status Date / Time sulfamethoxazole Allergy Intermediate RASH Verified 01/30/21 18:00 trimethoprim Allergy Intermediate RASH Verified 01/30/21 18:00 amlodipine AdvReac Intermediate confusion Verified 01/30/21 18:00 adhesive tape AdvReac Mild ITCHING Verified 01/30/21 18:00 Home Medications Medication Instructions Recorded Confirmed Type mometasone 1 appln TOP QAM 03/20/20 01/30/21 History insulin aspart U-100 100 unit/mL See Rx Instructions SQ TID ml 06/08/20 01/30/21 History (3 mL) subcutaneous pen insulin glargine 100 unit/mL (3 15 unit SUBCUT HS #1 box 06/08/20 01/30/21 Rx mL) subcutaneous pen clotrimazole-betamethasone 1 1 applic TOPICAL BID PRN g 08/26/20 01/30/21 History %-0.05 % topical cream lactulose 20 gram/30 mL oral 45 ml PO BID ml 08/26/20 01/30/21 History solution ferrous sulfate 325 mg PO Q OTHER DAY #30 tab 11/02/20 01/30/21 Rx sodium bicarbonate 650 mg tablet 1,300 mg PO BID tab 11/07/20 01/30/21 History folic acid 1 mg tablet 1 mg PO BID #180 tab 11/17/20 01/30/21 Rx blood-glucose sensor #3 ea 12/01/20 01/23/21 History blood-glucose transmitter #1 ea 12/01/20 01/23/21 History mometasone 0.1 % topical solution See Rx Instructions TOPICAL DAILY 12/14/20 01/30/21 Rx PRN #30 ml mupirocin 2 % topical ointment 1 applic TOPICAL BID #15 g 12/14/20 01/30/21 Rx hydralazine 10 mg tablet 20 mg PO BID #120 tab 12/20/20 01/30/21 Rx carvedilol 12.5 mg tablet 12.5 mg PO BID #180 tab 01/19/21 01/30/21 Rx furosemide 20 mg tablet 40 mg PO DAILY #180 tab 01/19/21 01/30/21 Rx hydroxyzine HCl 10 mg tablet 10 mg PO QID #360 tab 01/19/21 01/30/21 Rx rifaximin 550 mg tablet 550 mg PO BID #180 tab 01/19/21 01/30/21 Rx ropinirole 2 mg tablet 2 mg PO HS #90 tab 01/19/21 01/30/21 Rx ciprofloxacin HCl 500 mg tablet 500 mg PO BID 7 Days #14 tab 01/24/21 01/30/21 Rx omeprazole 40 mg capsule,delayed 40 mg PO BID #180 cap 01/26/21 01/30/21 Rx release ropinirole 1 mg PO QPM 01/30/21 01/30/21 History teriparatide [Forteo] 20 mcg SUBCUT QAM 01/30/21 01/30/21 History Past Med/Surg History Medical History Acute blood loss anemia Anemia of chronic disease Anxiety CHF (congestive heart failure) Chronic kidney disease, stage 3 (moderate) Diverticular disease DM type 2 (diabetes mellitus, type 2) Duodenal ulcer Esophageal varices Gastric ulcer GERD (gastroesophageal reflux disease) GI bleed History of GI bleed History of recent blood transfusion (~06/2019) Hyperlipidemia Hypertension Liver cirrhosis secondary to FOWLER Lower GI bleed Nausea and vomiting after administration of anesthetic agent Osteoarthritis Osteoporosis Pancytopenia Pleural effusion Psoriatic arthritis Risk for falls Surgical History H/O esophagogastroduodenoscopy 03/21/20 Dr. Shivani Carmen- EGD History of anesthesia reaction difficult to wake after bladder tack sx History of bilateral cataract extraction History of bladder surgery bladder tack History of colonoscopy History of esophagogastroduodenoscopy (EGD) multiple---last 06/22/19 Dr. Malena Marie at [facility] History of hemiarthroplasty of right shoulder January 2018 post fracture History of repair of right rotator cuff History of revision of total shoulder arthroplasty (12/29/18) Right shoulder, 12/29/18 History of shoulder surgery (~11/2019) Had right total arthroplasty removed 11/2019 History of tooth extraction all teeth S/P ORIF (open reduction internal fixation) fracture R shoulder, January 2018 S/P shoulder surgery (11/18/19) R TSA removal, I&D, placement of abx spacer Family History Grandmother (Paternal) Family history of diabetes mellitus Father COPD (chronic obstructive pulmonary disease) Mother Hypertension Family/Other Cancer Sister Ovarian cancer Denies family history of Prostate cancer Myocardial infarction Breast cancer Colorectal cancer Social History Smoking Status: Former smoker Tobacco Type: Cigarettes Age Started Using Tobacco: 17; Age Quit Using Tobacco: 31; packs per day: 1; Smoking End Date: 35 years ago; Second Hand Exposure: No; Tobacco Cessation Education Requested by Patient: No Hx Alcohol Use: No Hx Substance Use: No Preferred Language: Danish Communication Ability: Effective Visual Impairment: Limited Hearing Ability: Normal 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: No Beliefs That Will Affect Care: None marital status: Current Living Situation: Spouse Current Living Situation Comment: Lives with and son current occupational status: retired How many Children do You have: 2 Other Information That Helps Us Care for You: No Feels Safe at Home: Yes Safety Concerns: Feels Safe At This Time Childhood Exposure to Second-Hand Smoke: Yes Diet Comment: regular during the past year weight has: remained stable Dental Care, Regularly: No Physical Activity Frequency: Does not Exercise Seatbelt Use: always Sunscreen Use: Yes Assistive Devices: Walker Review of Systems Review of Systems: The patient denies chest pain, palpitations, shortness of breath, dyspnea on exertion, cough, lower extremity swelling, sore throat, fevers, chills, sweats, diarrhea , constipation, pelvic pain, blood in urine or stool, dysuria, urinary frequency or urgency, lightheadedness, dizziness, headache, memory loss, loss of consciousness, rash, abnormal bruising or bleeding, imbalance, focal weakness, numbness or tingling in arms or legs, generalized arthralgias or myalgias, back or neck pain, or night sweats. The review of systems is otherwise negative other than for that already noted above, and at least 10 systems have been reviewed. Physical Exam Physical Exam: The patient is awake, alert and oriented 3, well developed and well nourished, normocephalic and atraumatic, lying in bed and in no acute distress. HEENT--PERRL, EOMI, mucous membranes and oropharynx mildly dry Neck--supple. No JVD. No bruits. Heart--normal S1 and S2. No murmurs, rubs or gallops. Lungs--clear bilaterally, no respiratory distress, no accessory muscle use. Abdomen--normal bowel sounds and soft. Nontender. Nondistended Extremities--no cyanosis or clubbing. No edema. Dermatologic--skin is dry Neurologic--cranial nerves II through XII grossly intact. Rheumatologic--normal range of motion. Psychiatric--normal affect. Results & Data Results & Data ([facility]) Vital Signs (Past 12 Hours) Vital Signs Temp Pulse Resp BP Pulse Ox 01/30/21 21:33 67 15 167/83 H 95 01/30/21 21:17 66 14 165/79 H 97 01/30/21 20:30 65 14 165/101 H 97 01/30/21 20:00 63 16 151/82 H 97 01/30/21 19:57 62 14 147/77 H 95 01/30/21 18:32 63 24 97 01/30/21 18:30 63 15 160/86 H 98 01/30/21 18:12 63 16 97 01/30/21 18:08 61 17 151/71 H 98 01/30/21 16:33 97.7 F 59 L 18 140/61 97 Laboratory Results Laboratory Results WBC 3.72 K/uL (4.8-10.8) L 01/30/21 18:08 RBC 3.14 M/uL (4.2-5.4) L 01/30/21 18:08 Hgb 9.5 g/dL (12.0-16.0) L 01/30/21 18:08 Hct 27.9 % (37-47) L 01/30/21 18:08 MCV 88.9 fL (80-100) 01/30/21 18:08 MCH 30.3 pg (25-34) 01/30/21 18:08 MCHC 34.1 g/dL (32-36) 01/30/21 18:08 RDW Std Deviation 52.8 fL (36.4-46.3) H 01/30/21 18:08 RDW Coeff of Karina 16.0 % (11.5-14.5) H 01/30/21 18:08 Plt Count 38 K/uL (130-400) L 01/30/21 18:08 MPV 10.9 fL (7.4-10.4) H 01/30/21 18:08 Immature Gran % (Auto) 0.3 % 01/30/21 18:08 Neut % (Auto) 76.5 % 01/30/21 18:08 Lymph % (Auto) 14.8 % 01/30/21 18:08 [place] % (Auto) 5.9 % 01/30/21 18:08 Eos % (Auto) 2.2 % 01/30/21 18:08 Baso % (Auto) 0.3 % 01/30/21 18:08 Neut # (Auto) 2.85 K/uL (1.4-6.5) 01/30/21 18:08 Lymph # (Auto) 0.55 K/uL (1.2-3.4) L 01/30/21 18:08 [place] # (Auto) 0.22 K/uL (0.11-0.59) 01/30/21 18:08 Eos # (Auto) 0.08 K/uL (0-0.5) 01/30/21 18:08 Baso # (Auto) 0.01 K/uL (0-0.2) 01/30/21 18:08 Immature Gran # (Auto) 0.01 K/uL (0.00-0.02) 01/30/21 18:08 Platelet Estimate Decreased (Normal) L 01/30/21 18:08 Sodium 144 mmol/L (136-145) 01/30/21 18:23 Potassium 4.1 mmol/L (3.5-5.1) 01/30/21 18:23 Chloride 113 mmol/L (98-107) H 01/30/21 18:23 Carbon Dioxide 20 mmol/L (21-32) L 01/30/21 18:23 Anion Gap 11.0 (3-11) 01/30/21 18:23 BUN 62 mg/dl (7-18) H 01/30/21 18:23 Creatinine 2.66 mg/dl (0.6-1.2) H 01/30/21 18:23 Est Cr Clr Drug Dosing 19.0 ml/min 01/30/21 18:23 Est GFR ( Amer) 21.1 ml/min 01/30/21 18:23 Est GFR (Non-Af Amer) 18.2 ml/min 01/30/21 18:23 BUN/Creatinine Ratio 23.2 (10-20) H 01/30/21 18:23 Glucose 149 mg/dl (70-99) H 01/30/21 18:23 POC Glucose 109 mg/dl (70-99) H 01/31/21 05:35 Calcium 8.8 mg/dl (8.5-10.1) 01/30/21 18:23 Total Bilirubin 1.9 mg/dl (0.2-1) H 01/30/21 18:23 AST 59 U/L (15-37) H 01/30/21 18:23 ALT 35 U/L (12-78) 01/30/21 18:23 Alkaline Phosphatase 160 U/L (45-117) H 01/30/21 18:23 Ammonia 52.1 umol/L (11-32) H 01/30/21 18:08 Troponin I < 0.015 ng/ml (0-0.045) 01/30/21 18:23 Total Protein 7.6 gm/dl (6.4-8.2) 01/30/21 18:23 Albumin 2.9 gm/dl (3.4-5.0) L 01/30/21 18:23 Globulin 4.7 gm/dl (2.5-4.0) H 01/30/21 18:23 Albumin/Globulin Ratio 0.6 (0.9-2) L 01/30/21 18:23 Lipase 437 U/L (73-393) H 01/30/21 18:23 Urine Color Dark Yellow 01/30/21 21:37 Urine Appearance Clear (Clear) 01/30/21 21:37 Urine pH 5.5 (4.5-7.5) 01/30/21 21:37 Ur Specific [place] 1.013 (1.000-1.030) 01/30/21 21:37 Urine Protein 1+ (Negative) H 01/30/21 21:37 Urine Glucose (UA) Negative (Negative) 01/30/21 21:37 Urine Ketones Negative (Negative) 01/30/21 21:37 Urine Blood 2+ (Negative) H 06/14/21 21:37 Urine Nitrite Negative (Negative) 01/30/21 21:37 Urine Bilirubin Negative (Negative) 01/30/21 21:37 Urine Urobilinogen Negative (Negative) 01/30/21 21:37 Ur Leukocyte Esterase Negative (Negative) 01/30/21 21:37 Urine WBC (Auto) 1-5 /hpf (0-5) 01/30/21 21:37 Urine RBC (Auto) >30 /hpf (0-4) H 01/30/21 21:37 U Hyaline Cast (Auto) 1-5 /lpf (0-5) 01/30/21 21:37 U Epithel Cells (Auto) 10-20 /lpf (0-5) H 01/30/21 21:37 Urine Bacteria (Auto) Negative (Negative) 01/30/21 21:37 COVID-19 Eval Order Covid19 at [facility] 01/30/21 20:29 SARS-CoV-2 (PCR) NEGATIVE (Negative) 01/30/21 20:29 Impressions Gallbladder Ultrasound 01/30/21 18:01 US gallbladder CLINICAL HISTORY: 65 years-old Female presenting with RUQ pain eval for gallstones. TECHNIQUE: Real-time grayscale ultrasound imaging of the right upper quadrant was performed for a focused evaluation at the site of clinical concern. COMPARISON: October 30, 2020 FINDINGS: Pancreas is not well seen due to overlying bowel gas. Liver is measuring 15.5 cm in size with heterogeneous coarsened echotexture mild diffuse increase in echogenicity. Nodular contour of the liver might be seen in liver cirrhosis. Blood flow within main pulmonary vein is hepatopedal. Gallbladder is distended with fluid. Few gallstones are seen within dependent portion of the gallbladder. There is mild thickening of the gallbladder wall measures measuring 0.8 cm. Pericholecystic edema is seen. Sonographic Quinones's sign is negative. Common bile duct is measuring 1.0 cm in diameter. Right kidney shows normal morphology and no evidence of hydronephrosis or nephrolithiasis. IMPRESSION: 1. Cholelithiasis. Thickening gallbladder wall and pericholecystic edema usually seen in cholecystitis however sonographic Quinones's sign is negative. 2. Liver cirrhosis. ACT 112: Negative or not required by law. Electronically signed by: Ivonne Grant DO 01/30/2021 8:04 PM Diagnostic Findings [facility] Patient: GARDENIA PICHARDO (Female) : 57 Status: ER Date: 01/30/21 21:12 Room #: History: abn LFT's and US Slices: [id number] Priors: Tech: Deepak Vidales @ [phone] Exams: CT ABDOMEN & PELVIS Without Contrast Contrast: Accession Numbers: [id number] Preliminary Findings Only See Final Report For Complete Findings CT ABDOMEN & PELVIS Without Contrast: Comparison 11/12/20. Cirrhosis, as before. Stable subcentimeter hepatic hypodensities. Splenomegaly and perisplenic and upper abdominal varices indicating portal hypertension. Nonobstructing left renal calculus, as before. No ureteral calculus or hydronephrosis. Calcified abdominal aorta without aneurysm. Distended gallbladder with diffuse wall thickening and cholelithiasis. Possible cholecystitis. Consider correlation with ultrasound. Mildly dilated common bile duct measuring 9 mm in diameter. No bowel obstruction. Unremarkable appendix. Moderate to large stool volume within the colon. Mild colonic diverticulosis. No definite CT evidence for diverticulitis. Unremarkable uterus. Fat-containing left pelvic ventral abdominal wall hernia, as before. Bilateral fat-containing inguinal hernias. Irregular, partially calcified anterior pelvic subcutaneous tissues which could be injection granulomas. No acute osseous abnormality. Radiologist: Rashid Chan M.D. Study ready at 21:20 and initial results transmitted at 21:35 *This report constitutes a preliminary interpretation only. Non-acute findings felt to be unrelated to the clinical presentation may not be discussed in this report. The study will be interpreted and a final report will be generated by the local Radiologist the following shift. To reach the hospital radiology department call [phone]. If a discrepancy is found between the preliminary and final interpretations of this study, please notify us via our Client Portal at [email or web address].You can also fax this report with a description of the discrepancy, or include the final report, to our daytime fax number [phone].If faxing, please indicate the severity of discrepancy using one of the following categories: [ ] 1 - Agree/Informational [ ] 2 - Unlikely to Affect Management [ ] 3 - Possible Eventual Change of Management [ ] 4 - Probable Immediate Change of Management For all other patient related information, please fax us at [phone]. Code Status & VTE Plan Code Status Full code VTE Prophylaxis Plan VTE Prophylaxis will be ordered: Yes PG Care Time/CCT Total # of Minutes Spent Total Time Spent with Patient: Total time spent is greater than 50% in coordination of care (as documented) at patient's floor/unit and/or counseling patient: Coding Level of Care Code 87185 Initial Inpt Care Lvl 3 Diagnoses Abnormal findings on diagnostic imaging of gallbladder R93.2 Acute kidney injury superimposed on chronic kidney disease N17.9; N18.9 Liver cirrhosis secondary to FOWLER K75.81; K74.60 DM type 2 (diabetes mellitus, type 2) E11.65 Diabetes mellitus fdc insulin use: without fdc use Diabetes mellitus complication status: with hyperglycemia Hypertension I10 Hypertension type: unspecified Gastric ulcer K25.9 Duodenal ulcer K26.9 Esophageal varices I85.00 (1) DM type 2 (diabetes mellitus, type 2) Diabetes mellitus fdc insulin use: without fdc use Diabetes mellitus complication status: with hyperglycemia Qualified Code(s): E11.65 - Type 2 diabetes mellitus with hyperglycemia (2) Hypertension Hypertension type: unspecified Qualified Code(s): I10 - Essential (primary) hypertension
[2021-01-31] MEDS ORDERED: GLUCOSE 10 TABS/TUBE PO PRN (03:36)
[2021-01-31] MEDS ORDERED: GLUCOSE 40% GEL 15 GM TUBE PO PRN (03:36)
[2021-01-31] MEDS ORDERED: CARBOHYDRATES FOR HYPOGLYCEMIA PO PRN (03:36)
[2021-01-31] MEDS ORDERED: ONDANSETRON INJ 2 MG/ML 2 ML VIAL IV PRN (03:36)
[2021-01-31] MEDS ORDERED: CLOTRIMAZOLE/BETAMETHASONE CR 15 GM TUBE EXT PRN (03:36)
[2021-01-31] MEDS ORDERED: GLUCAGON FOR INJ 1 MG VIAL SQ PRN (03:36)
[2021-01-31] MEDS ORDERED: DEXTROSE 50% 50 ML SYRINGE IV PRN (03:36)
[2021-01-31] MEDS ORDERED: Nursing to Pharmacy Communication SCH ×2 (04:00→15:45)
[2021-01-31] MEDS: SODIUM BICARBONATE 650 MG TAB PO SCH ×3 (05:38→20:50)
[2021-01-31] MEDS: carvediloL 12.5 MG TAB PO SCH ×3 (05:38→20:49)
[2021-01-31] MEDS: rifAXIMin 550 MG TABLET PO SCH ×3 (05:38→20:49)
[2021-01-31] MEDS: INSULIN ASPART 100 UNITS/ML 3 ML PEN SC SCH ×4 (05:38→20:52)
[2021-01-31] MEDS ORDERED: PIPERACILL/TAZOBAC CONSULT ACTIVE PRN (06:07)
--- NOTE | 2021-01-31 07:47 | CT Scan Report ---
CT SCAN OF THE ABDOMEN AND PELVIS WITHOUT IV CONTRAST CLINICAL HISTORY: Abnormal liver function studies. COMPARISON STUDY: Abdominal CT dated 11/12/2020. TECHNIQUE: CT scan of the abdomen and pelvis is performed from the lung bases to the proximal femora. Images are reviewed in the axial, sagittal, and coronal planes. IV contrast was not administered for this examination. A dose lowering technique was utilized adhering to the principles of ALARA. CT DOSE: 571.86 mGy.cm FINDINGS: Lung bases: The heart is normal in size and without pericardial effusion. The lung bases are clear. Liver: The unenhanced liver is cirrhotic in morphology and heterogeneous in attenuation. There is nod ularity of the hepatic surface contour as well as hypertrophy of the left lobe and caudate. There is no intrahepatic biliary ductal dilatation. Gallbladder: The gallbladder is distended and there is a calcified gallstone. There is nonspecific ga llbladder wall thickening and edema. Spleen: The spleen is enlarged, measuring 17.5 cm in length. There are large perisplenic varices with evidence of a splenorenal shunt. Pancreas: The unenhanced pancreas is moderately atrophic and grossly unremarkable. Adrenal glands: Unremarkable. Kidneys: The unenhanced kidneys demonstrate cortical atrophy and are without hydronephrosis. There ar e least 2 nonobstructing left renal calculi which measure up to 5 mm. There is a single punctate nono bstructing right renal calculus. There is no evidence of contour deforming renal mass lesion. Abdominal vasculature: The abdominal aorta is normal in course and caliber noting advanced atheroscle rotic calcification. A stent is noted in the hepatic artery. Bowel: There is mild to moderate colonic fecal retention. No bowel obstruction is seen. The appendix is well-visualized and normal. Peritoneum: There is no intraperitoneal free air or abdominal ascites. There is a large fat-containin g ventral hernia in the pelvis. Lymphadenopathy: Mildly enlarged right cardiophrenic lymph nodes measure up to 12 mm in short axis. Pelvic viscera: The bladder, uterus, and adnexa are normal as visualized. Skeletal structures: The skeletal structures are osteopenic. Mild lumbosacral spondylosis is observed . No lytic or blastic lesions are seen. Soft tissues: Soft tissue thickening and subcutaneous calcifications in the ventral pelvis are unchan ged from previous. IMPRESSION: 1. The liver is cirrhotic in morphology and heterogeneous in attenuation. 2. Splenomegaly, upper abdominal varices, and a splenorenal shunt indicate portal hypertension. 3. The gallbladder is distended and contains a calcified gallstone. There is nonspecific gallbladder wall thickening and edema which is similar to previous and likely related to cirrhosis/hepatocellular disease. If there strong clinical concern for acute cholecystitis a nuclear hepatobiliary scan shoul d be considered. 4. Bilateral nephrolithiasis. 5. Additional findings as above. ACT 112: Negative or not required by law. Electronically signed by: Alexander Feldman M.D. 01/31/2021 7:46 AM
[2021-01-31] MEDS ORDERED: PIPERACILLIN/TAZOBACTAM 4.5 GM in DEXTROSE 5% 100 ML IV ONE (08:00)
[2021-01-31] MEDS ORDERED: CIPROFLOXACIN 500 MG TAB PO SCH (09:00)
--- NOTE | 2021-01-31 10:37 | Nuclear Medicine Report ---
NUCLEAR MEDICINE HEPATOBILIARY SCAN WITH EJECTION FRACTION HISTORY: Cholelithiasis. Gallbladder wall thickening. abnormal CT and US COMPARISON: Abdominal ultrasound 01/30/2021. TECHNIQUE: Immediately following the intravenous administration of 5.3 mCi Tc-99m Choletec, dynamic a nterior abdominal imaging pre/post oral Boost was performed. FINDINGS: Uniform hepatic tracer accumulation is shown. Prompt intrahepatic biliary excretion is seen. The gall bladder, common bile duct, and small bowel are all visualized by 20 minutes. This appearance represen ts the normal sequence of biliary excretion. The gall bladder ejection fraction following administration of Boost was 99% (normal >35%). IMPRESSION: 1. No evidence for cystic duct obstruction. 2. Gallbladder ejection fraction calculated to be 99 %. ACT 112: Negative or not required by law. Electronically signed by: James Murillo M.D. 01/31/2021 10:35 AM
[2021-01-31] MEDS: PANTOprazole 40 MG TAB PO SCH ×2 (10:43→20:51)
[2021-01-31] MEDS: hydrALAZINE 10 MG TAB PO SCH ×2 (10:44→20:51)
[2021-01-31] MEDS: FOLIC ACID 1 MG TAB PO SCH ×2 (10:45→20:49)
[2021-01-31] MEDS: LACTULOSE SYRUP 30 GM/45 ML UDP PO SCH ×2 (10:45→20:52)
[2021-01-31] MEDS: MUPIROCIN 2% OINT 22 GM TUBE EXT SCH ×2 (10:46→20:48)
[2021-01-31 11:35] LABS: Hematocrit (blood only) 25.6 % (37-47); Hemoglobin 8.5 g/dL (12.0-16.0); Mean Corpuscular Hemoglobin 29.2 pg (25-34); Mean Corpuscular Hgb Conc 33.2 g/dL (32-36); RDW Coefficient of Variation 16.1 % (11.5-14.5); RDW Standard Deviation 51.9 fL (36.4-46.3); Red Blood Count 2.91 M/uL (4.2-5.4); White Blood Count 2.04 K/uL (4.8-10.8)
[2021-01-31 12:02] LABS: Albumin Level 2.6 gm/dl (3.4-5.0); BUN Creatinine Ratio 24.9 (10-20); Calcium 8.6 mg/dl (8.5-10.1); Creatinine Clr Calc Pharmacy 19.3 ml/min; Est GFR (African American) 21.8 ml/min; Est GFR (Non-African American) 18.8 ml/min; Magnesium 2.5 mg/dl (1.8-2.4); Potassium 3.6 mmol/L (3.5-5.1)
--- NOTE | 2021-01-31 12:02 | Electrocardiogram Report ---
Test Reason : Blood Pressure : / mmHG Vent. Rate : 063 BPM Atrial Rate : 063 BPM P-R Int : 182 ms QRS Dur : 080 ms QT Int : 496 ms P-R-T Axes : 054 037 008 degrees QTc Int : 507 ms Poor data quality, interpretation may be adversely affected Normal sinus rhythm Cannot rule out Inferior infarct , age undetermined Abnormal ECG When compared with ECG of 06-DEC-2020 16:31, No significant change was found Confirmed by Ramón Guillaume ([id number]) on 01/31/2021 12:02:25 PM Referred By: Rocío Alonso Confirmed By:Sunil Guillaume
[2021-01-31 12:04] LABS: Basophils # (auto) 0.01 K/uL (0-0.2); Basophils % (auto) 0.5 %; Eosinophils # (auto) 0.06 K/uL (0-0.5); Eosinophils % (auto) 2.9 %; Giant Platelets 1+; Immature Granulocytes # (auto) 0.01 K/uL (0.00-0.02); Immature Granulocytes % (auto) 0.5 %; Lymphocytes # (auto) 0.44 K/uL (1.2-3.4); Lymphocytes % (auto) 21.6 %; Mean Platelet Volume 9.8 fL (7.4-10.4); Monocytes # (auto) 0.25 K/uL (0.11-0.59); Monocytes % (auto) 12.3 %; Neutrophils # (auto) 1.27 K/uL (1.4-6.5); Neutrophils % (auto) 62.2 %; Platelet Count 30 K/uL (130-400); Platelet Estimate Decreased (Normal)
[2021-01-31 12:05] LABS: Albumin Globulin Ratio 0.7 (0.9-2); Bilirubin,Total 1.6 mg/dl (0.2-1); Total Protein 6.6 gm/dl (6.4-8.2)
[2021-01-31 12:21] LABS: Estimated Average Glucose 126 mg/dl
--- NOTE | 2021-01-31 12:44 | Gastrointestinal Consultation ---
Date of Consultation January 31, 2021 Assessment & Plan (1) Abnormal findings on diagnostic imaging of gallbladder: Nausea, vomiting - possible viral illness which seems to have resolved since arrival. GB wall thickening likely secondary to cirrhosis vs gallbladder disease as HIDA w/o obstruction. Recommend advancing diet. At this time, no endoscopy planned. Continue OP meds. Present on Admission?: Yes Supervising Physician Co-Signing Physician Notes I have personally seen and examined the patient with OUMOU Coe on 01/31/21. Her note reflects my exam and findings. I agree with her impression and plan. No indication for ERCP. Cont current care. Out patient f/u with regular GI provider. Jd Brooks M.D. History of Present Illness Reason for Consultation: Ms. Angela Sherman is a 65 yr old female pt of Dr. Smith, who carries a hx of NAFLD cirrhosis with EV presented to the ED yesterday for upper abd pain, nausea and vomiting which began after breakfast. CT on arrival with gallbladder wall thickening, distention, one calcified stone. There was also mention of mild to moderate colonic fecal retention. US with similar findings. HIDA this morning w/o evidence of acute cholecystitis. Since arrival on the floor and being kept NPO. She has not had nausea/vomiting. She denies any hematemesis or hematochezia. She reports passing 2-3 loose BMs/day on lactulose BID. Most recent EGD in March 2020 with portal hypertensive gastropathy one gastric AVM (clipped), grade 2 EV. Attending Physician: Fernando Williamson MD Allergies Allergy/AdvReac Type Severity Reaction Status Date / Time sulfamethoxazole Allergy Intermediate RASH Verified 01/30/21 18:00 trimethoprim Allergy Intermediate RASH Verified 01/30/21 18:00 amlodipine AdvReac Intermediate confusion Verified 01/30/21 18:00 adhesive tape AdvReac Mild ITCHING Verified 01/30/21 18:00 Home Medications Medication Instructions Recorded Confirmed Type mometasone 1 appln TOP QAM 03/20/20 01/30/21 History insulin aspart U-100 100 unit/mL See Rx Instructions SQ TID ml 06/08/20 01/30/21 History (3 mL) subcutaneous pen insulin glargine 100 unit/mL (3 15 unit SUBCUT HS #1 box 06/08/20 01/30/21 Rx mL) subcutaneous pen clotrimazole-betamethasone 1 1 applic TOPICAL BID PRN g 08/26/20 01/30/21 History %-0.05 % topical cream lactulose 20 gram/30 mL oral 45 ml PO BID ml 08/26/20 01/30/21 History solution ferrous sulfate 325 mg PO Q OTHER DAY #30 tab 11/02/20 01/30/21 Rx sodium bicarbonate 650 mg tablet 1,300 mg PO BID tab 11/07/20 01/30/21 History folic acid 1 mg tablet 1 mg PO BID #180 tab 11/17/20 01/30/21 Rx blood-glucose sensor #3 ea 12/01/20 01/23/21 History blood-glucose transmitter #1 ea 12/01/20 01/23/21 History mometasone 0.1 % topical solution See Rx Instructions TOPICAL DAILY 12/14/20 01/30/21 Rx PRN #30 ml mupirocin 2 % topical ointment 1 applic TOPICAL BID #15 g 12/14/20 01/30/21 Rx hydralazine 10 mg tablet 20 mg PO BID #120 tab 12/20/20 01/30/21 Rx carvedilol 12.5 mg tablet 12.5 mg PO BID #180 tab 01/19/21 01/30/21 Rx furosemide 20 mg tablet 40 mg PO DAILY #180 tab 01/19/21 01/30/21 Rx hydroxyzine HCl 10 mg tablet 10 mg PO QID #360 tab 01/19/21 01/30/21 Rx rifaximin 550 mg tablet 550 mg PO BID #180 tab 01/19/21 01/30/21 Rx ropinirole 2 mg tablet 2 mg PO HS #90 tab 01/19/21 01/30/21 Rx ciprofloxacin HCl 500 mg tablet 500 mg PO BID 7 Days #14 tab 01/24/21 01/30/21 Rx omeprazole 40 mg capsule,delayed 40 mg PO BID #180 cap 01/26/21 01/30/21 Rx release ropinirole 1 mg PO QPM 01/30/21 01/30/21 History teriparatide [Forteo] 20 mcg SUBCUT QAM 01/30/21 01/30/21 History Patient History Medical History (Updated 01/31/21 @ 06:03 by Anand Wagner MD) Acute blood loss anemia Anemia of chronic disease Anxiety CHF (congestive heart failure) Chronic kidney disease, stage 3 (moderate) Diverticular disease DM type 2 (diabetes mellitus, type 2) Duodenal ulcer Esophageal varices Gastric ulcer GERD (gastroesophageal reflux disease) GI bleed History of GI bleed History of recent blood transfusion (~06/2019) Hyperlipidemia Hypertension 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 Lower GI bleed Nausea and vomiting after administration of anesthetic agent Osteoarthritis Osteoporosis Pancytopenia Pleural effusion Psoriatic arthritis Risk for falls Surgical History H/O esophagogastroduodenoscopy 03/21/20 Dr. Shivani Carmen- EGD History of anesthesia reaction difficult to wake after bladder tack sx History of bilateral cataract extraction History of bladder surgery bladder tack History of colonoscopy History of esophagogastroduodenoscopy (EGD) multiple---last 06/22/19 Dr. Malena Marie at [facility] [place] History of hemiarthroplasty of right shoulder January 2018 post fracture History of repair of right rotator cuff History of revision of total shoulder arthroplasty (12/29/18) Right shoulder, 12/29/18 History of shoulder surgery (~11/2019) Had right total arthroplasty removed 11/2019 History of tooth extraction all teeth S/P ORIF (open reduction internal fixation) fracture R shoulder, January 2018 S/P shoulder surgery (11/18/19) R TSA removal, I&D, placement of abx spacer Family History Grandmother (Paternal) Family history of diabetes mellitus Father COPD (chronic obstructive pulmonary disease) Mother Hypertension Family/Other Cancer Sister Ovarian cancer Denies family history of Prostate cancer Myocardial infarction Breast cancer Colorectal cancer Social History Smoking Status: Former smoker Tobacco Type: Cigarettes Age Started Using Tobacco: 17; Age Quit Using Tobacco: 31; packs per day: 1; Second Hand Exposure: No; Hx Alcohol Use: No Hx Substance Use: No Preferred Language: [place] Communication Ability: Effective Visual Impairment: Limited Hearing Ability: Normal Pharmacy Stock Clerk Required: No Beliefs That Will Affect Care: None marital status: Current Living Situation: Spouse Current Living Situation Comment: Lives with and son current occupational status: retired How many Children do You have: 2 Feels Safe at Home: Yes Childhood Exposure to Second-Hand Smoke: Yes Diet Comment: regular during the past year weight has: remained stable Dental Care, Regularly: No Physical Activity Frequency: Does not Exercise Seatbelt Use: always Sunscreen Use: Yes Assistive Devices: Walker Review of Systems Review of Systems: ROS: Gen: Denies weakness, fevers, weight loss Eyes: No eye redness, or pain, no recent vision changes Resp: No SOB, no cough Cardio: No palpitations/irregular beats, no chest pain GI: As per HPI, otherwise (-) : Denies pain on urination Skin: No jaundice, itching or new rashes Physical Exam Constitutional: WD/WN, vitals as above Eyes: PERRL, conjunctivae normal, anicteric sclerae ENMT: external ear and nose normal, oropharynx normal Neck: trachea midline, no thyromegaly Respiratory: normal respiratory effort, lungs clear to auscultation Cardiovascular: RRR, no murmur, no edema Gastrointestinal (Abdomen): Inspection/Auscultation: abdomen normal to inspection (with no obvious ascites) Percussion/Palpation: abdomen soft; abdomen nontender Skin: no rashes, warm and dry no jaundice Neurologic: PERRL, EOMI, accommodation nl, no face palsy, no dysarthria no asterixes Psychiatric: A+Ox3, euthymic affect Lymphatic: no cervical or axillary lymphadenopathy Results & Data ([facility]) Vital Signs (Past 12 Hours) Vital Signs Temp Pulse Pulse Pulse Resp BP BP 01/31/21 07:50 36.4 C L 60 18 119/69 01/31/21 07:25 62 01/31/21 04:30 66 01/31/21 03:38 36.6 C 66 18 01/31/21 02:30 61 17 131/66 01/31/21 02:00 63 13 134/73 01/31/21 01:30 61 14 125/63 01/31/21 01:00 62 13 139/74 BP Pulse Ox 01/31/21 07:50 97 01/31/21 07:25 01/31/21 04:30 01/31/21 03:38 142/67 H 95 01/31/21 02:30 96 01/31/21 02:00 96 01/31/21 01:30 95 01/31/21 01:00 95 Laboratory Results WBC 2, Hb 8.5, Hct 25, Plts 30, Na 144, K 3.6, BUN 64, Cr 2.59, glucose 218, T Bili 1.6, AST 73, ALT 45, Alk Phos 155, Lipase 437. Diagnostic Findings HIDA: 1. No evidence for cystic duct obstruction. 2. Gallbladder ejection fraction calculated to be 99 %. US: 1. The liver is cirrhotic in morphology and heterogeneous in attenuation. 2. Splenomegaly, upper abdominal varices, and a splenorenal shunt indicate portal hypertension. 3. The gallbladder is distended and contains a calcified gallstone. There is nonspecific gallbladder wall thickening and edema which is similar to previous and likely related to cirrhosis/hepatocellular disease. If there strong clinical concern for acute cholecystitis a nuclear hepatobiliary scan should be considered. 4. Bilateral nephrolithiasis. 5. Additional findings as above. CT 1. The liver is cirrhotic in morphology and heterogeneous in attenuation. 2. Splenomegaly, upper abdominal varices, and a splenorenal shunt indicate portal hypertension. 3. The gallbladder is distended and contains a calcified gallstone. There is nonspecific gallbladder wall thickening and edema which is similar to previous and likely related to cirrhosis/hepatocellular disease. If there strong clinical concern for acute cholecystitis a nuclear hepatobiliary scan should be considered. 4. Bilateral nephrolithiasis. 5. Additional findings as above.
[2021-01-31] MEDS: rOPINIRole HCL 1 MG TABLET PO SCH ×2 (12:58→20:50)
[2021-01-31] MEDS: hydrOXYzine HCl 10 MG TAB PO SCH ×3 (12:58→20:50)
--- NOTE | 2021-01-31 14:50 | Hospitalist Progress Note ---
Date of Service January 31, 2021 Assessment & Plan (1) Abnormal findings on diagnostic imaging of gallbladder: Both ultrasound of abdomen and CT of abdomen notes distended gallbladder with diffuse wall thickening and cholelithiasis, with possible cholecystitis Famotidine 20 mg IV every 12 hours Zofran 4 mg IV every 6 hours as needed -> HIDA scan negative. Completely symptom-free at this point. She relates it more to taking the lactulose which upsets her stomach. Given complete resolution of symptoms, no fever, no leukocytosis, will defer further abx. Will not transfer at this time. Gallbladder thickening likely related to portal hypertension as per GI. Advance diet. (2) Acute kidney injury superimposed on chronic kidney disease: Creatinine 2.66 upon admission, with range 1.77-1.98. - Repeat laboratories in the a.m. after fluid resuscitation - Continue sodium bicarbonate - Slight improvement today. Will monitor. (3) 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: Liver cirrhosis secondary to Mae/splenomegaly/perisplenic and upper abdominal varices/portal hypertension- Patient has pending appointments with hepatology at [facility]. She reports a pending appointment with Dr. Yolanda De La Fuente for an upper endoscopy in early February, who will be consulted this admission, to see if study needs to be done sooner Continue lactulose, rifaximin (4) DM type 2 (diabetes mellitus, type 2): Hold insulin glargine Placed on Accu-Cheks before meals and at bedtime with NovoLog coverage per scale (5) Hypertension: Continue carvedilol, hydralazine. - Hold furosemide (6) Gastric ulcer: (7) Duodenal ulcer: (8) Esophageal varices: Admission and Anticipated Discharge Date Admission Date: January 30, 2021 Subjective Nausea, vomiting, and pain have all resolved. Eating lunch when I am in the room and reports feeling well overall. Reports no fevers/chills, chest pain, shortness of breath, abdominal pain, nausea, or vomiting. Physical Exam Constitutional: WD/WN, vitals as above Eyes: EOM intact bilaterally; no conjunctival abnormality ENMT: external ear and nose normal, oropharynx normal Neck: trachea midline, no thyromegaly normal visual inspection Respiratory: normal respiratory effort, lungs clear to auscultation no respiratory distress Cardiovascular: RRR, no murmur, no edema Gastrointestinal (Abdomen): Inspection/Auscultation: + abdomen distended; + abdomen abnormal to inspection Percussion/Palpation: abdomen soft; abdomen nontender, no guarding and abdomen not rigid Musculoskeletal: no cyanosis or clubbing, extremities motor strength 5/5 Skin: no rashes, warm and dry Neurologic: moves all extremities and awake Psychiatric: Orientation: alert, oriented to person and cooperative Results & Data Results & Data ([facility]) Vital Signs (Past 12 Hours) Vital Signs Temp Pulse Pulse Pulse Resp BP BP 01/31/21 12:00 36.8 C 61 18 125/65 01/31/21 07:50 36.4 C L 60 18 119/69 01/31/21 07:25 62 01/31/21 04:30 66 01/31/21 03:38 36.6 C 66 18 142/67 H Pulse Ox 01/31/21 12:00 97 01/31/21 07:50 97 01/31/21 07:25 01/31/21 04:30 01/31/21 03:38 95 PG Care Time/CCT Total # of Minutes Spent Total Time Spent with Patient: Total time spent is greater than 50% in coordination of care (as documented) at patient's floor/unit and/or counseling patient: Coding Level of Care Code 98425 Subseq Hosp Care Lvl 2 Diagnoses Abnormal findings on diagnostic imaging of gallbladder R93.2 Acute kidney injury superimposed on chronic kidney disease N17.9; N18.9 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 K75.81; K74.60 DM type 2 (diabetes mellitus, type 2) E11.65 Diabetes mellitus snf insulin use: without intermodal truck driver use Diabetes mellitus complication status: with hyperglycemia Hypertension I10 Hypertension type: unspecified Gastric ulcer K25.9 Duodenal ulcer K26.9 Esophageal varices I85.00 (1) DM type 2 (diabetes mellitus, type 2) Diabetes mellitus intermodal truck driver insulin use: without intermodal truck driver use Diabetes mellitus complication status: with hyperglycemia Qualified Code(s): E11.65 - Type 2 diabetes mellitus with hyperglycemia (2) Hypertension Hypertension type: unspecified Qualified Code(s): I10 - Essential (primary) hypertension
[2021-01-31] MEDS ORDERED: PIPERACILLIN/TAZOBACTAM 3.375 GM in DEXTROSE 5% 100 ML IV SCH (16:00)
[2021-01-31] MEDS ORDERED: MICONAZOLE NITRATE POWDER 43 GM EXT PRN (19:02)
[2021-02-01] MEDS: carvediloL 12.5 MG TAB PO SCH ×2 (08:03→21:18)
[2021-02-01] MEDS: hydrOXYzine HCl 10 MG TAB PO SCH ×4 (08:04→21:18)
[2021-02-01] MEDS: SODIUM BICARBONATE 650 MG TAB PO SCH ×2 (08:04→21:19)
[2021-02-01] MEDS: rifAXIMin 550 MG TABLET PO SCH ×2 (08:05→21:19)
[2021-02-01] MEDS: MUPIROCIN 2% OINT 22 GM TUBE EXT SCH ×2 (08:05→21:21)
[2021-02-01] MEDS: LACTULOSE SYRUP 30 GM/45 ML UDP PO SCH ×2 (08:05→21:20)
[2021-02-01] MEDS: PANTOprazole 40 MG TAB PO SCH ×2 (08:05→21:18)
[2021-02-01] MEDS: FOLIC ACID 1 MG TAB PO SCH ×2 (08:07→21:20)
[2021-02-01] MEDS: INSULIN ASPART 100 UNITS/ML 3 ML PEN SC SCH ×4 (08:08→21:21)
[2021-02-01 08:35] LABS: Albumin Level 2.4 gm/dl (3.4-5.0); BUN Creatinine Ratio 24.5 (10-20); Calcium 8.2 mg/dl (8.5-10.1); Creatinine Clr Calc Pharmacy 17.4 ml/min; Est GFR (African American) 18.8 ml/min; Est GFR (Non-African American) 16.2 ml/min; Magnesium 2.5 mg/dl (1.8-2.4)
[2021-02-01 08:42] LABS: Eosinophils # (auto) 0.05 K/uL (0-0.5); Eosinophils % (auto) 2.1 %; Hematocrit (blood only) 24.9 % (37-47); Hemoglobin 8.3 g/dL (12.0-16.0); Immature Granulocytes # (auto) 0.01 K/uL (0.00-0.02); Immature Granulocytes % (auto) 0.4 %; Lymphocytes # (auto) 0.38 K/uL (1.2-3.4); Mean Corpuscular Hemoglobin 29.2 pg (25-34); Mean Corpuscular Hgb Conc 33.3 g/dL (32-36); Mean Corpuscular Volume 87.7 fL (80-100); Mean Platelet Volume 10.8 fL (7.4-10.4); Monocytes # (auto) 0.33 K/uL (0.11-0.59); Monocytes % (auto) 13.9 %; Neutrophils % (auto) 67.6 %; Platelet Count 31 K/uL (130-400); Platelet Estimate SIGNIFIC DECREASED (Normal); RDW Standard Deviation 51.7 fL (36.4-46.3); Red Blood Count 2.84 M/uL (4.2-5.4); White Blood Count 2.37 K/uL (4.8-10.8)
[2021-02-01 08:43] LABS: Albumin Globulin Ratio 0.6 (0.9-2); Globulin 4.1 gm/dl (2.5-4.0); Total Protein 6.5 gm/dl (6.4-8.2)
[2021-02-01] MEDS: hydrALAZINE 10 MG TAB PO SCH ×2 (09:00→21:19)
[2021-02-01] MEDS ORDERED: FERROUS SULFATE 325 MG TAB PO SCH (09:00)
[2021-02-01] MEDS: rOPINIRole HCL 1 MG TABLET PO SCH ×2 (13:13→21:20)
[2021-02-01] MEDS ORDERED: SODIUM CHLORIDE 0.9% 1000ML 1,000 ML IV SCH (14:30)
--- NOTE | 2021-02-01 22:13 | Hospitalist Progress Note ---
Date of Service February 01, 2021 Assessment & Plan (1) Abnormal findings on diagnostic imaging of gallbladder: Both ultrasound of abdomen and CT of abdomen notes distended gallbladder with diffuse wall thickening and cholelithiasis, with possible cholecystitis Famotidine 20 mg IV every 12 hours Zofran 4 mg IV every 6 hours as needed -> HIDA scan negative. Completely symptom-free at this point. She relates it more to taking the lactulose which upsets her stomach. Given complete resolution of symptoms, no fever, no leukocytosis, will defer further abx. Will not transfer at this time. Gallbladder thickening likely related to portal hypertension as per GI. Advance diet. Patient will remain in the hospital as her creatinine has worsened. will closely monitor and give some fluids. (2) Acute kidney injury superimposed on chronic kidney disease: Creatinine 2.66 upon admission, with range 1.77-1.98. - Repeat laboratories in the a.m. after fluid resuscitation - Continue sodium bicarbonate - Slight improvement today. Will monitor. (3) 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: Liver cirrhosis secondary to Mae/splenomegaly/perisplenic and upper abdominal varices/portal hypertension- Patient has pending appointments with hepatology at [facility]. She reports a pending appointment with Dr. Yolanda De La Fuente for an upper endoscopy in early February, who will be consulted this admission, to see if study needs to be done sooner Continue lactulose, rifaximin (4) DM type 2 (diabetes mellitus, type 2): Hold insulin glargine Placed on Accu-Cheks before meals and at bedtime with NovoLog coverage per scale (5) Hypertension: Continue carvedilol, hydralazine. - Hold furosemide (6) Gastric ulcer: (7) Duodenal ulcer: (8) Esophageal varices: Admission and Anticipated Discharge Date Admission Date: January 30, 2021 Subjective Patient reports feeling well. Patient has no new complaints. Review of Systems Review of Systems: All systems reviewed & are unremarkable except as noted in HPI & below Physical Exam Physical Exam: Constitutional: WD/WN, vitals as above Eyes: EOM intact bilaterally; no conjunctival abnormality ENMT: external ear and nose normal, oropharynx normal Neck: trachea midline, no thyromegaly normal visual inspection Respiratory: normal respiratory effort, lungs clear to auscultation no respiratory distress Cardiovascular: RRR, no murmur, no edema Gastrointestinal (Abdomen): Inspection/Auscultation: + abdomen distended; + abdomen abnormal to inspection Percussion/Palpation: abdomen soft; abdomen nontender, no guarding and abdomen not rigid Musculoskeletal: no cyanosis or clubbing, extremities motor strength 5/5 Skin: no rashes, warm and dry Neurologic: moves all extremities and awake Psychiatric: Orientation: alert, oriented to person and cooperative Results & Data Results & Data ([facility]) Vital Signs (Past 12 Hours) Vital Signs Temp Pulse Pulse Resp BP Pulse Ox 02/01/21 19:31 36.8 C 73 18 117/64 96 02/01/21 16:17 36.6 C 64 16 148/71 H 94 02/01/21 15:20 64 02/01/21 11:25 36.8 C 66 16 117/54 L 96 PG Care Time/CCT Total # of Minutes Spent Total Time Spent with Patient: Total time spent is greater than 50% in coordination of care (as documented) at patient's floor/unit and/or counseling patient: Coding Level of Care Code 27908 Subseq Hosp Care Lvl 3 Diagnoses Abnormal findings on diagnostic imaging of gallbladder R93.2 Acute kidney injury superimposed on chronic kidney disease N17.9; N18.9 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 K75.81; K74.60 DM type 2 (diabetes mellitus, type 2) E11.65 Diabetes mellitus complication status: with hyperglycemia Diabetes mellitus custodial insulin use: without custodial use Hypertension I10 Hypertension type: unspecified Gastric ulcer K25.9 Duodenal ulcer K26.9 Esophageal varices I85.00 Time Spent (min) 35 (1) DM type 2 (diabetes mellitus, type 2) Diabetes mellitus complication status: with hyperglycemia Diabetes mellitus emergency medicine specialist insulin use: without custodial use Qualified Code(s): E11.65 - Type 2 diabetes mellitus with hyperglycemia (2) Hypertension Hypertension type: unspecified Qualified Code(s): I10 - Essential (primary) hypertension
[2021-02-02] MEDS: INSULIN ASPART 100 UNITS/ML 3 ML PEN SC SCH ×2 (08:04→12:29)
[2021-02-02] MEDS: LACTULOSE SYRUP 30 GM/45 ML UDP PO SCH (08:05)
[2021-02-02] MEDS: carvediloL 12.5 MG TAB PO SCH (08:08)
[2021-02-02] MEDS: FOLIC ACID 1 MG TAB PO SCH (08:09)
[2021-02-02] MEDS: PANTOprazole 40 MG TAB PO SCH (08:09)
[2021-02-02] MEDS: rifAXIMin 550 MG TABLET PO SCH (08:09)
[2021-02-02] MEDS: hydrALAZINE 10 MG TAB PO SCH (08:09)
[2021-02-02] MEDS: hydrOXYzine HCl 10 MG TAB PO SCH ×2 (08:10→12:31)
[2021-02-02] MEDS: SODIUM BICARBONATE 650 MG TAB PO SCH (08:10)
[2021-02-02] MEDS: MUPIROCIN 2% OINT 22 GM TUBE EXT SCH (08:11)
[2021-02-02 09:36] LABS: Hematocrit (blood only) 26.4 % (37-47); Hemoglobin 8.9 g/dL (12.0-16.0); Mean Corpuscular Hemoglobin 29.6 pg (25-34); Mean Corpuscular Hgb Conc 33.7 g/dL (32-36); Mean Corpuscular Volume 87.7 fL (80-100); Mean Platelet Volume 10.5 fL (7.4-10.4); Platelet Count 28 K/uL (130-400); RDW Coefficient of Variation 16.1 % (11.5-14.5); Red Blood Count 3.01 M/uL (4.2-5.4); White Blood Count 3.02 K/uL (4.8-10.8)
[2021-02-02 09:38] LABS: Basophils # (auto) 0.01 K/uL (0-0.2); Basophils % (auto) 0.3 %; Eosinophils # (auto) 0.11 K/uL (0-0.5); Eosinophils % (auto) 3.6 %; Lymphocytes # (auto) 0.73 K/uL (1.2-3.4); Lymphocytes % (auto) 24.2 %; Monocytes # (auto) 0.31 K/uL (0.11-0.59); Monocytes % (auto) 10.3 %; Neutrophils # (auto) 1.86 K/uL (1.4-6.5); Neutrophils % (auto) 61.6 %
[2021-02-02 09:49] LABS: Albumin Globulin Ratio 0.6 (0.9-2); Albumin Level 2.6 gm/dl (3.4-5.0); BUN Creatinine Ratio 28.9 (10-20); Bilirubin,Total 1.1 mg/dl (0.2-1); Calcium 8.5 mg/dl (8.5-10.1); Creatinine Clr Calc Pharmacy 19.3 ml/min; Est GFR (African American) 21.6 ml/min; Est GFR (Non-African American) 18.7 ml/min; Globulin 4.3 gm/dl (2.5-4.0); Magnesium 2.6 mg/dl (1.8-2.4); Potassium 4.1 mmol/L (3.5-5.1); Total Protein 6.9 gm/dl (6.4-8.2)
[2021-02-02] MEDS ORDERED: SODIUM CHLORIDE 0.45 % 1,000 ML IV SCH (10:00)
[2021-02-02] MEDS: rOPINIRole HCL 1 MG TABLET PO SCH (12:31)
--- NOTE | 2021-02-06 23:02 | Discharge Summary ---
Date of Service February 02, 2021 Admission HPI Per Admitting Provider The patient is a 65-year-old female with a past medical history including liver cirrhosis secondary to FOWLER, hyperammonemia, epistaxis, CKD stage III, hypertension, hyperlipidemia, diabetes mellitus type 2, pancytopenia, hepatic encephalopathy, HENRIQUE, osteoporosis, history of GI bleed, mitral regurgitation, vitamin D deficiency and anemia of chronic disease. She reports that she had a worsening of her chronic right upper quadrant abdominal pain, with an episode of vomiting, after eating breakfast in the morning, that consisted of coffee and toast. At the time of my assessment in the ED, the patient was feeling co mpletely back to normal. She reports that she is scheduled for an upper endoscopy by Dr. Yolanda De La Fuente on February 17, and is scheduled to see a sales agent at [facility] in [place] in a few weeks. Principal Diagnosis as stated below. Discharge Exam Constitutional: WD/WN, vitals as above Eyes: EOM intact bilaterally; no conjunctival abnormality ENMT: external ear and nose normal, oropharynx normal Neck: trachea midline, no thyromegaly normal visual inspection Respiratory: normal respiratory effort, lungs clear to auscultation no respiratory distress Cardiovascular: RRR, no murmur, no edema Gastrointestinal (Abdomen): Inspection/Auscultation: + abdomen distended; + abd omen abnormal to inspection Percussion/Palpation: abdomen soft; abdomen nontender, no guarding and abdomen not rigid Musculoskeletal: no cyanosis or clubbing, extremities motor strength 5/5 Skin: no rashes, warm and dry Neurologic: moves all extremities and awake Psychiatric: Orientation: alert, oriented to person and cooperative Discharge Data Allergies Allergy/AdvReac Type Severity Reaction Status Date / Time sulfamethoxazole Allergy Intermediate RASH Verified 01/30/21 18:00 trimethoprim Allergy Intermediate RASH Verified 01/30/21 18:00 amlodipine AdvReac Intermediate confusion Verified 01/30/21 18:00 adhesive tape AdvReac Mild ITCHING Verified 01/30/21 18:00 Consultations 01/30/21 20:36 ED Decision to Admit Stat 01/31/21 03:36 Consult Gastroenterology Routine Ordered Studies 01/30/21 18:01 US gallbladder Stat 01/30/21 20:42 CT abd pelvis wo con Urgent Hospital Course (1) Abnormal findings on diagnostic imaging of gallbladder: Both ultrasound of abdomen and CT of abdomen notes distended gallbladder with diffuse wall thickening and cholelithiasis, with possible cholecystitis Famotidine 20 mg IV every 12 hours Zofran 4 mg IV every 6 hours as needed -> HIDA scan negative. Completely symptom-free at this point. She relates it more to taking the lactulose which upsets her stomach. Given complete resolution of symptoms, no fever, no leukocytosis, will defer further abx. Will not transfer at this time. Gallbladder thickening likely related to portal hypertens ion as per GI. Advance diet. On 02/01 Patient will remain in the hospital as her creatinine has worsened. will closely monitor and give some fluids. On 02/02, Patient reports doing well. Creatinine improved to 3.6 will discharge. (2) Acute kidney injury superimposed on chronic kidney disease: Creatinine 2.66 upon admission, with range 1.77-1.98. - Repeat laboratories in the a.m. after fluid resuscitation - Continue sodium bicarbonate - Slight improvement today. Will monitor. (3) Liver cirrhosis secondary to FOWLER: Liver cirrhosis secondary to Fowler/splenomegaly/perisplenic and upper abdominal varices/portal hypertension- Patient has pending appointments with hepatology at [facility]. She reports a pending appointment with Dr. Yolanda De La Fuente for an upper endoscopy in early February, who will be consulted this admission, to see if study needs to be done sooner Continue lactulose, rifaximin (4) DM type 2 (diabetes mellitus, type 2): Hold insulin glargine Placed on Accu-Cheks before meals and at bedtime with NovoLog coverage per scale (5) Hypertension: Continue carvedilol, hydralazine. - resume furosemide (6) Gastric ulcer: (7) Duodenal ulcer: (8) Esophageal varices: Total Time Total Time Spent Total Time Spent (In Minutes): 32 Discharge Plan Discharge Items Patient Disposition: Home - Self-Care Reason For Visit: NAUSEA AND VOMITING Discharge Diagnosis: Acute kidney failure Activity: Resume your previous activity Non-emergency contact: Primary Care Provider Call non-emergency contact if: you have any medication questions Follow-up/Referrals: Rocío Alonso DO [Primary Care Provider] - Diet: Carb Consistent or DM2 Addtl Attending Provider Instructions: Out patient f/u with regular GI provider. Goal is to have 2 bowel movement a day. Ok to cut back on lactulose if you are having 3 bowel movements or more a day. But remember goal is 2 bowel movements every day. Recommend followup with PCP in 1-2 weeks. Followup with Nephrology in 1- 2 weeks Pending Studies at Discharge: No Stand-Alone Forms: My [facility] [employer], Smoking Cessation Medications and DC Order Prescriptions: Continued folic acid 1 mg tablet 1 mg PO BID Qty: 180 RF: 1 hydralazine 10 mg tablet 20 mg PO BID Qty: 120 RF: 2 carvedilol 12.5 mg tablet 12.5 mg PO BID Qty: 180 RF: 1 furosemide 20 mg tablet 40 mg PO DAILY Qty: 180 RF: 1 hydroxyzine HCl 10 mg tablet 10 mg PO QID Qty: 360 RF: 1 Xifaxan 550 mg tablet 550 mg PO BID Qty: 180 RF: 1 ropinirole 2 mg tablet 2 mg PO HS Qty: 90 RF: 1 mometasone 0.1 % solution See Rx Instructions topical DAILY PRN (Reason: rash) Qty: 30 RF: 1 (DME) Dexcom G6 Transmitter Device See Rx Instructions .ROUTE .MEDSUPPLY Qty: 1 RF: 0 (DME) Dexcom G6 Sensor Device See Rx Instructions .ROUTE .MEDSUPPLY Qty: 3 RF: 0 insulin aspart U-100 [Novolog Flexpen U-100 Insulin] 100 unit/mL (3 mL) insulin pen See Rx Instructions SQ TID RF: 0 Basaglar KwikPen U-100 Insulin 100 unit/mL (3 mL) insulin pen 15 unit subcut HS Qty: 1 RF: 5 clotrimazole-betamethasone 1-0.05 % cream 1 applic topical BID PRN (Reason: Skin Irritation) RF: 0 lactulose 20 gram/30 mL solution 45 ml PO BID RF: 0 sodium bicarbonate 650 mg tablet 1,300 mg PO BID RF: 0 mometasone 0.1 % cream 1 appln TOP QAM RF: 0 ferrous sulfate 325 mg (65 mg iron) tablet,delayed release (DR/EC) 325 mg PO Q OTHER DAY Qty: 30 RF: 2 teriparatide [Forteo] 20 mcg/dose (620mcg/2.48mL) pen injector 20 mcg SUBCUT QAM RF: 0 ropinirole 2 mg tablet 1 mg PO QPM RF: 0 Discontinued ciprofloxacin HCl [Cipro] 500 mg tablet 500 mg PO BID 7 Days Qty: 14 RF: 0 Discharge Orders: Discharge Order (Routine); Ordered 02/02/21 Ordered By: Adi Flores/Other Patient Handouts: Managing Type 2 Diabetes, A1C Admission Data Admit Date/Time: 01/30/21 22:23 Attending Provider: Adi Pino Admit Provider: Anand Wagner Primary Care Provider: Rocío Alonso Other Providers: Jd Brooks ; Carmen Gibson Other Interventions: Discharge Summary Assessment (RN) Last Done: 02/02/21 16:42 Coding Level of Care Code 28733 OBS Care - Discharge Diagnoses Abnormal findings on diagnostic imaging of gallbladder R93.2 Acute kidney injury superimposed on chronic kidney disease N17.9; N18.9 Liver cirrhosis secondary to FOWLER K75.81; K74.60 DM type 2 (diabetes mellitus, type 2) E11.65 Diabetes mellitus senior care insulin use: without terminal superintendent use Diabetes mellitus complication status: with hyperglycemia Hypertension I10 Hypertension type: unspecified Gastric ulcer K25.9 Duodenal ulcer K26.9 Esophageal varices I85.00
== END 2021-02-02 17:29 | disposition home or self-care (01) | DRG 443 ==
LOC: ED 16:06 → SUATTDRO 22:23 → INTOOBSV 22:23 → SUATTDRO 01-31 → 2W 01-31
DX: K74.60 Unspecified cirrhosis of liver; Z79.899 Other long term (current) drug therapy; E78.5 Hyperlipidemia, unspecified; K21.9 Gastro-esophageal reflux disease without esophagitis; N18.30 Chronic kidney disease, stage 3 unspecified; I13.0 Hypertensive heart and chronic kidney disease with heart failure and stage 1 through stage 4 chronic kidney disease, or unspecified chronic kidney disease; K75.81 Nonalcoholic steatohepatitis (NASH); K80.50 Calculus of bile duct without cholangitis or cholecystitis without obstruction; Z88.2 Allergy status to sulfonamides; I50.9 Heart failure, unspecified; Z79.4 Long term (current) use of insulin; Z87.891 Personal history of nicotine dependence; N20.0 Calculus of kidney; Z88.8 Allergy status to other drugs, medicaments and biological substances; E72.20 Disorder of urea cycle metabolism, unspecified; E11.22 Type 2 diabetes mellitus with diabetic chronic kidney disease

== ENCOUNTER 2021-06-27 11:28 | Inpatient (IN) ==
[2021-06-27] MEDS ORDERED: SODIUM CHLORIDE 0.9% 1000ML 1,000 ML IV ONE (12:01)
[2021-06-27] MEDS ORDERED: ONDANSETRON INJ 2 MG/ML 2 ML VIAL IV STA ×2 (12:01→15:01)
[2021-06-27] MEDS ORDERED: FAMOTIDINE 20MG IV PUSH 20 MG/5 ML SYR IV STA (12:01)
[2021-06-27 12:18] LABS: Hematocrit (blood only) 22.3 % (37-47); Hemoglobin 7.3 g/dL (12.0-16.0); Mean Corpuscular Hemoglobin 28.1 pg (25-34); Mean Corpuscular Hgb Conc 32.7 g/dL (32-36); Mean Corpuscular Volume 85.8 fL (80-100); RDW Coefficient of Variation 15.5 % (11.5-14.5); RDW Standard Deviation 48.9 fL (36.4-46.3); White Blood Count 2.26 K/uL (4.8-10.8)
[2021-06-27 12:21] LABS: Mean Platelet Volume 10.6 fL (7.4-10.4); Platelet Count 37 K/uL (130-400)
[2021-06-27 12:28] LABS: INR 1.4 (0.9-1.1); Prothrombin Time 13.5 Seconds (9.0-12.0)
[2021-06-27 12:50] LABS: Alanine Aminotransferase 22 U/L (12-78); Albumin Globulin Ratio 0.5 (0.9-2); Albumin Level 2.3 gm/dl (3.4-5.0); Alkaline Phosphatase 127 U/L (45-117); Aspartate Aminotransferase 23 U/L (15-37); BUN Creatinine Ratio 14.8 (10-20); Bilirubin Direct 0.6 mg/dl (0-0.2); Bilirubin,Total 1.5 mg/dl (0.2-1); Blood Urea Nitrogen 41 mg/dl (7-18); Calcium 8.8 mg/dl (8.5-10.1); Carbon Dioxide 22 mmol/L (21-32); Chloride 109 mmol/L (98-107); Est GFR (African American) 19.9 ml/min; Est GFR (Non-African American) 17.2 ml/min; Globulin 4.6 gm/dl (2.5-4.0); Glucose 388 mg/dl (70-99); Lipase 118 U/L (73-393); Magnesium 2.4 mg/dl (1.8-2.4); Phosphorus 4.1 mg/dl (2.5-4.9); Potassium 3.7 mmol/L (3.5-5.1); Sodium 141 mmol/L (136-145); Total Protein 6.9 gm/dl (6.4-8.2); Troponin I < 0.015 ng/ml (0-0.045)
[2021-06-27 12:53] LABS: Basophils # (auto) 0.01 K/uL (0-0.2); Basophils % (auto) 0.4 %; Eosinophils # (auto) 0.05 K/uL (0-0.5); Eosinophils % (auto) 2.2 %; Lymphocytes # (auto) 0.55 K/uL (1.2-3.4); Lymphocytes % (auto) 24.3 %; Monocytes # (auto) 0.18 K/uL (0.11-0.59); Neutrophils # (auto) 1.47 K/uL (1.4-6.5); Neutrophils % (auto) 65.1 %; RBC Morphology Unremarkable
--- NOTE | 2021-06-27 13:05 | XRay Report ---
XR chest 1V portable CLINICAL HISTORY: abd pain, n/v TECHNIQUE: Single frontal radiograph of the chest was obtained. Comparison: Comparison is made to chest one view 12/06/2020 FINDINGS: No lines and tubes are seen. Cardiomegaly is noted. The lungs are clear. No evidence of pleural effus ion or pneumothorax. Redemonstration of right humeral orthopedic hardware. IMPRESSION: No acute chest disease. ACT 112: Negative or not required by law. Electronically signed by: Eitan Mcgregor M.D. 06/27/2021 1:04 PM
[2021-06-27 13:06] LABS: Beta-Hydroxybutyrate 1.24 mg/dl (0.2-2.81)
[2021-06-27] MEDS ORDERED: LACTULOSE SYRUP 30 GM/45 ML UDP PO STA (13:42)
[2021-06-27 13:51] LABS: Appearance Urine Cloudy (Clear); Bacteria Urine Automated 4+ (Negative); Bilirubin Urine Negative (Negative); Blood Urine 1+ (Negative); Color Urine Yellow; Epithelial Cell Urine Auto 0-5 /lpf (0-5); Glucose Urine UA 2+ (Negative); Ketones Urine Negative (Negative); Leukocyte Esterase Urine Trace (Negative); Nitrite Urine Negative (Negative); Protein Urine 1+ (Negative); Specific Gravity Urine 1.012 (1.000-1.030); Urobilinogen Urine Negative (Negative); pH Urine 6.5 (4.5-7.5)
[2021-06-27] MEDS ORDERED: cefTRIAXone SODIUM 2,000 MG/70 ML BAG IV STA (15:03)
--- NOTE | 2021-06-27 15:54 | History & Physical Report ---
Date of Service June 27, 2021 Assessment & Plan (1) Fatigue: Plan: This appears to be her main symptom. ?combination of chronic medical conditions with dehydration due to reduced appetite and Lasix use in setting of UTI. PT/OT (2) Nausea and vomiting: Plan: KUB possible concerning for early SBO but clinically no abdominal pain and last BM today. Will continue on clear liquids currently but if intractable nausea/vomiting will consider CT A/P to better assess for SBO. ?secondary to UTI (treatment as below) ?related to Forteo as symptoms seem to correlate well with when she started this medication, will hold this currently Prior EGD in February therefore do not see a reason to repeat this currently (3) UTI (urinary tract infection): Plan: Symptom: Lower abdominal pain Continue ceftriaxone 1g IV daily Follow up urine culture (4) Pancytopenia: Plan: This appears to be longstanding, per prior hematology note related to her liver cirrhosis. Although she reports planned bone marrow biopsy in . Since her hemoglobin is close to what is what a month ago doubtful contributory to current more acute symptoms. Previous transferrin sats 22% in January, folate and B12 normal. Monitor CBC in AM (5) Elevated serum creatinine: Plan: CKD stage IV Cr 2.78 on admission, up from her baseline of around 2. Will hold furosemide and give gentle IV hydration overnight. Repeat BMP in AM ?osmotic diuresis with increased glucose levels recently Continue sodium bicarbonate 1300mg PO BID (6) DM type 2 (diabetes mellitus, type 2): Plan: HbA1C 6.0 in January. Repeat with AM labs. Consult pharmacy for glycemic control. (7) Hyperammonemia: Plan: Unclear how much this is really contributing towards her current symptoms as more fatigue and generalized weakness than confusion Unable to take lactulose PO due to nausea/vomiting (reports this is a chronic problem) therefore will start lactulose enemas although unclear if this is truly contributing towards her generalized fatigue (8) 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: Plan: Lactulose as above Continue rifaximin as able Limit acetaminophen to 2g (9) Hypertension: Plan: Continue carvedilol, hold lasix as above and start gentle IV fluids overnight Plan: VTE Prophylaxis - deferred due to thrombocytopenia Diet - clear liquids, T2DM Disposition - admit to med/surg Admission and Anticipated Discharge Date Admission Date: June 27, 2021 History of Present Illness Chief Complaint: Generalized weakness and fatigue Primary Care Provider: Rocío Alonso DO Angela Sherman is a 66 year old female who presents to the ER with nausea vomiting and generalized fatigue. She reports longstanding intermittent nausea and vomiting and was previously hospitalized here in January for the same with essentially normal workup at that time although there was concern about cholecystitis on imaging, subsequent HIDA scan was negative. Symptoms on this occasion have been present for the last 2 days. She reports difficulty taking her lactulose when she has nausea and vomiting and has gone down to taking this every other day although reports her having regular bowel movements doing this. Last bowel movement was earlier today and normal for her. No melena or bright red blood in stool. No hematemesis. She does report change in color and smell of her urine for the last 2 days in addition to suprapubic pain. No back pain, fever or chills. No chest pain, shortness of breath or palpitations. She feels generally weak, not one sided, no change in sensation, no facial droop, change in speech, vision or hearing. In the ER Cr was noted to be slightly elevated (similar to last admission), she remains pancytopenic (similar to 1 month previously), UA was grossly positive for infection, ammonia levels 82 (her range is usually between 50-185). She was referred to medicine for admission and ongoing management of hyperammonemia, acute on chronic renal insufficiency, hyperglycemia and UTI. Allergies Allergy/AdvReac Type Severity Reaction Status Date / Time sulfamethoxazole Allergy Intermediate RASH Verified 06/27/21 14:21 trimethoprim Allergy Intermediate RASH Verified 06/27/21 14:21 Sulfa (Sulfonamide Allergy Rash Unverified 06/27/21 14:21 Antibiotics) amlodipine AdvReac Intermediate confusion Verified 06/27/21 14:21 adhesive tape AdvReac Mild ITCHING Verified 06/27/21 14:21 Home Medications Medication Instructions Recorded Confirmed Type blood-glucose sensor (Dexcom G6 #3 ea 12/01/20 05/08/21 History Sensor) blood-glucose transmitter (Dexcom #1 ea 12/01/20 05/08/21 History G6 Transmitter) mometasone 0.1 % topical solution See Rx Instructions TOPICAL DAILY 12/14/20 06/27/21 Rx PRN #30 ml carvedilol 12.5 mg tablet 12.5 mg PO BID #180 tab 01/19/21 06/27/21 Rx rifaximin 550 mg tablet (Xifaxan) 550 mg PO BID #180 tab 01/19/21 06/27/21 Rx clotrimazole-betamethasone 1 1 applic TOPICAL BID PRN #45 g 02/07/21 06/27/21 Rx %-0.05 % topical cream lactulose 20 gram/30 mL oral 45 ml PO BID 30 Days #2700 ml 02/07/21 06/27/21 Rx solution furosemide 20 mg tablet 40 mg PO QAM 02/14/21 06/27/21 History pantoprazole 40 mg tablet,delayed 40 mg PO QAM 02/14/21 06/27/21 History release blood sugar diagnostic (OneTouch #100 ea 02/15/21 05/08/21 Rx Ultra Blue Test Strip) ferrous sulfate 325 mg (65 mg 325 mg PO Q OTHER DAY #30 tab 04/27/21 06/27/21 Rx iron) tablet,delayed release hydralazine 10 mg tablet 20 mg PO BID #120 tab 04/27/21 06/27/21 Rx insulin aspart U-100 100 unit/mL See Rx Instructions SQ TID #15 ml 04/27/21 06/27/21 Rx (3 mL) subcutaneous pen (Novolog Flexpen U-100 Insulin aspart) insulin glargine 100 unit/mL (3 15 unit SUBCUT HS #1 box 04/27/21 06/27/21 Rx mL) subcutaneous pen (Basaglar KwikPen U-100 Insulin) folic acid 1 mg tablet 1 mg PO BID #180 tab 05/14/21 06/27/21 Rx sodium bicarbonate 650 mg tablet 1,300 mg PO BID #180 tab 06/04/21 06/27/21 Rx ropinirole 2 mg tablet See Rx Instructions .ROUTE 06/15/21 06/27/21 Rx .COMPLEX #135 tab hydroxyzine HCl 25 mg tablet 25 mg PO TID PRN 06/27/21 06/27/21 History teriparatide 20 mcg/dose (620 20 mcg SUBCUT QAM 06/27/21 06/27/21 History mcg/2.48 mL) subcutaneous pen injector (Forteo) 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 Lower GI bleed Nausea and vomiting after administration of anesthetic agent On home oxygen therapy 2L prn for SOB Osteoarthritis Osteoporosis Pancytopenia Pleural effusion Psoriatic arthritis Right shoulder pain Risk for falls Surgical History H/O esophagogastroduodenoscopy 03/21/20 Dr. Shivani Carmen- EGD History of anesthesia reaction difficult to wake after bladder tack sx History of bilateral cataract extraction History of bladder surgery bladder tack History of colonoscopy History of esophagogastroduodenoscopy (EGD) multiple---last 06/22/19 Dr. Malena Marie at [facility] History of hemiarthroplasty of right shoulder January 2018 post fracture History of repair of right rotator cuff History of revision of total shoulder arthroplasty (12/29/18) Right shoulder, 12/29/18 History of shoulder surgery (~11/2019) Had right total arthroplasty removed 11/2019 History of thoracentesis (~10/05/19) left History of tooth extraction all teeth S/P ORIF (open reduction internal fixation) fracture R shoulder, January 2018 S/P shoulder surgery (11/18/19) R TSA removal, I&D, placement of abx spacer Family History Grandmother (Paternal) Family history of diabetes mellitus Father COPD (chronic obstructive pulmonary disease) Mother Hypertension Family/Other Cancer Sister Ovarian cancer Other No family history of adverse response to anesthesia Denies family history of Prostate cancer Myocardial infarction Breast cancer Colorectal cancer Social History Smoking Status: Never smoker Tobacco Type: Cigarettes Age Started Using Tobacco: 17; Age Quit Using Tobacco: 31; packs per day: 1; Second Hand Exposure: No; Hx Alcohol Use: No Hx Substance Use: No Preferred Language: Syriac Communication Ability: Effective Visual Impairment: Limited Hearing Ability: Hard of Hearing Executive Marketing Assistant Required: No Beliefs That Will Affect Care: None marital status: Current Living Situation: Spouse Current Living Situation Comment: Lives with and son current occupational status: retired How many Children do You have: 2 Other Information That Helps Us Care for You: No Feels Safe at Home: Yes Safety Concerns: Feels Safe At This Time Childhood Exposure to Second-Hand Smoke: Yes Diet Comment: regular during the past year weight has: remained stable Dental Care, Regularly: No Physical Activity Frequency: Does not Exercise Seatbelt Use: always Sunscreen Use: Yes Do you think of yourself as: straight/heterosexual Gender Identity: Female Assistive Devices: None Review of Systems Review of Systems: All systems reviewed & are unremarkable except as noted in HPI & below Physical Exam Constitutional: WD/WN, vitals as above + frail appearing Eyes: PERRL, conjunctivae normal, anicteric sclerae ENMT: external ear and nose normal, oropharynx normal Neck: trachea midline, no thyromegaly Respiratory: normal respiratory effort, lungs clear to auscultation Cardiovascular: RRR, no murmur, no edema Gastrointestinal (Abdomen): normal bowel sounds, soft, nontender, no hepatosplenomegaly Musculoskeletal: no cyanosis or clubbing, extremities motor strength 5/5 Skin: no rashes, warm and dry Neurologic: moves all extremities and awake; no focal motor deficits (no lateralizing deficit) and not confused Psychiatric: A+Ox3, euthymic affect Results & Data Results & Data ([facility]) Vital Signs (Past 12 Hours) Vital Signs Temp Pulse Resp BP Pulse Ox 06/27/21 15:30 59 L 16 159/109 H 93 06/27/21 14:50 72 20 94 06/27/21 14:40 64 20 97 06/27/21 14:30 61 18 96 06/27/21 14:20 63 20 97 06/27/21 14:10 64 24 95 06/27/21 14:00 61 15 97 06/27/21 13:50 60 17 95 06/27/21 13:40 63 15 97 06/27/21 13:30 95 06/27/21 13:20 94 06/27/21 13:10 94 06/27/21 13:01 95 06/27/21 12:50 62 17 94 06/27/21 12:40 62 17 94 06/27/21 12:30 63 17 95 06/27/21 12:20 63 17 96 06/27/21 12:10 62 17 96 06/27/21 12:00 63 20 97 06/27/21 11:59 98 06/27/21 11:50 65 15 96 06/27/21 11:40 65 14 97 06/27/21 11:37 63 17 97 06/27/21 11:20 37.0 C 62 20 179/66 H 96 Laboratory Results Abnormal lab results 06/27/21 06/27/21 06/27/21 Range/Units 11:50 11:50 11:50 WBC 2.26 L (4.8-10.8) K/uL RBC 2.60 L (4.2-5.4) M/uL Hgb 7.3 L (12.0-16.0) g/dL Hct 22.3 L (37-47) % RDW Std Deviation 48.9 H (36.4-46.3) fL RDW Coeff of Karina 15.5 H (11.5-14.5) % Plt Count 37 L (130-400) K/uL MPV 10.6 H (7.4-10.4) fL Lymph # (Auto) 0.55 L (1.2-3.4) K/uL PT 13.5 H (9.0-12.0) Seconds INR 1.4 H (0.9-1.1) Chloride 109 H (98-107) mmol/L BUN 41 H (7-18) mg/dl Creatinine 2.78 H (0.6-1.2) mg/dl Glucose 388 H* (70-99) mg/dl POC Glucose (70-99) mg/dl Total Bilirubin 1.5 H (0.2-1) mg/dl Direct Bilirubin 0.6 H (0-0.2) mg/dl Alkaline Phosphatase 127 H (45-117) U/L Ammonia (11-32) umol/L Albumin 2.3 L (3.4-5.0) gm/dl Globulin 4.6 H (2.5-4.0) gm/dl Albumin/Globulin Ratio 0.5 L (0.9-2) Urine Appearance (Clear) Urine Protein (Negative) Urine Glucose (UA) (Negative) Urine Blood (Negative) Ur Leukocyte Esterase (Negative) Urine WBC (Auto) (0-5) /hpf Urine RBC (Auto) (0-4) /hpf Urine Bacteria (Auto) (Negative) 06/27/21 06/27/21 06/27/21 Range/Units 13:00 13:38 15:42 WBC (4.8-10.8) K/uL RBC (4.2-5.4) M/uL Hgb (12.0-16.0) g/dL Hct (37-47) % RDW Std Deviation (36.4-46.3) fL RDW Coeff of Karina (11.5-14.5) % Plt Count (130-400) K/uL MPV (7.4-10.4) fL Lymph # (Auto) (1.2-3.4) K/uL PT (9.0-12.0) Seconds INR (0.9-1.1) Chloride (98-107) mmol/L BUN (7-18) mg/dl Creatinine (0.6-1.2) mg/dl Glucose (70-99) mg/dl POC Glucose 340 H* (70-99) mg/dl Total Bilirubin (0.2-1) mg/dl Direct Bilirubin (0-0.2) mg/dl Alkaline Phosphatase (45-117) U/L Ammonia 82.0 H (11-32) umol/L Albumin (3.4-5.0) gm/dl Globulin (2.5-4.0) gm/dl Albumin/Globulin Ratio (0.9-2) Urine Appearance Cloudy A (Clear) Urine Protein 1+ H (Negative) Urine Glucose (UA) 2+ H (Negative) Urine Blood 1+ H (Negative) Ur Leukocyte Esterase Trace H (Negative) Urine WBC (Auto) 10-30 H (0-5) /hpf Urine RBC (Auto) 5-10 H (0-4) /hpf Urine Bacteria (Auto) 4+ H (Negative) Diagnostic Findings XR chest 1V portable CLINICAL HISTORY: abd pain, n/v TECHNIQUE: Single frontal radiograph of the chest was obtained. Comparison: Comparison is made to chest one view 12/06/2020 FINDINGS: No lines and tubes are seen. Cardiomegaly is noted. The lungs are clear. No evidence of pleural effusion or pneumothorax. Redemonstration of right humeral orthopedic hardware. IMPRESSION: No acute chest disease. XR KUB/Abdomen 1 view CLINICAL HISTORY: n/v TECHNIQUE: 1 view of the abdomen was obtained. Comparison: Comparison is made to chest and abdomen radiographs 06/23/2020 FINDINGS: Lung bases are unremarkable. The osseous structures are grossly unremarkable. A gas dilated loop of bowel is seen in the mid abdomen measuring up to 15 mm in diameter. A moderate amount of stool is noted within the large bowel. IMPRESSION: Gas dilated loop of bowel in the midabdomen, likely small bowel. This may represent an early/partial small bowel obstruction versus ileus. Medications Administered ER Medications Given: NSS 1L bolus Famotidine 20mg IV Ondansetron 4mg IV x2 Lactulose 30g (vomited after this) Insulin 10 units IV ECG Rate (beats per minute): 63 Rhythm: normal sinus Findings: + 1st degree AV block Comparison ECG Date: from (January 30, 2021) Change: no significant change Code Status & VTE Plan Code Status Full VTE Prophylaxis Plan VTE Prophylaxis will be ordered: No PG Care Time/CCT Total # of Minutes Spent Total Time Spent with Patient: Total time spent is greater than 50% in coordination of care (as documented) at patient's floor/unit and/or counseling patient: Coding Level of Care Code INT OBSERVATION CARE 70M LVL 3 Diagnoses Nausea and vomiting R11.2 UTI (urinary tract infection) N39.0 DM type 2 (diabetes mellitus, type 2) E11.65 Diabetes mellitus complication status: with hyperglycemia Diabetes mellitus long-term insulin use: without long-term use Hyperammonemia E72.20 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 K75.81; K74.60 Hypertension I10 Hypertension type: unspecified Pancytopenia D61.818 Fatigue R53.83 Elevated serum creatinine R79.89 (1) DM type 2 (diabetes mellitus, type 2) Diabetes mellitus complication status: with hyperglycemia Diabetes mellitus long-term insulin use: without terminal makeup operator use Qualified Code(s): E11.65 - Type 2 diabetes mellitus with hyperglycemia (2) Hypertension Hypertension type: unspecified Qualified Code(s): I10 - Essential (primary) hypertension
[2021-06-27] MEDS ORDERED: NovoLIN-R INSULIN PER UNIT CHARGE IV STA (15:57)
--- NOTE | 2021-06-27 16:10 | XRay Report ---
XR KUB/Abdomen 1 view CLINICAL HISTORY: n/v TECHNIQUE: 1 view of the abdomen was obtained. Comparison: Comparison is made to chest and abdomen radiographs 06/23/2020 FINDINGS: Lung bases are unremarkable. The osseous structures are grossly unremarkable. A gas dilated loop of b owel is seen in the mid abdomen measuring up to 15 mm in diameter. A moderate amount of stool is note d within the large bowel. IMPRESSION: Gas dilated loop of bowel in the midabdomen, likely small bowel. This may represent an early/partial small bowel obstruction versus ileus. ACT 112: Negative or not required by law. Electronically signed by: Eitan Mcgregor M.D. 06/27/2021 4:09 PM
[2021-06-27] MEDS: LACTATED RINGER'S 1,000 ML IV SCH (16:21)
[2021-06-27] MEDS ORDERED: PHARMACY GLYCEMIC MGMT CONSULT PRN (17:52)
[2021-06-27] MEDS ORDERED: ACETAMINOPHEN 325 MG TAB PO PRN (17:52)
[2021-06-27] MEDS ORDERED: hydrOXYzine HCl 25 MG TAB PO PRN (17:52)
--- NOTE | 2021-06-27 18:11 | Emergency Department Note ---
Impression & Plan Hyperammonemia, Nausea & vomiting, Acute on chronic renal insufficiency, Hyperglycemia due to type 2 diabetes mellitus ED Provider Note NAME: GARDENIA PICHARDO AGE: 66 SEX: F ARRIVES VIA: Ambulance INFORMANT: Patient, ED PROVIDER(S): Levi Mae MD CHIEF COMPLAINT: n/v PLAN: Disposition: Admit MEDICAL DECISION MAKING: The patient is a pleasant 66-year-old woman with a past medical history of Fowler cirrhosis, CKD, hypertension, hyperlipidemia, type 2 diabetes on insulin, hepatic encephalopathy, pancytopenia who presents to the emergency department for evaluation of generalized weakness, nausea and vomiting over the past several days. She does admit that she frequently has nausea and in fact often will vomit after taking her lactulose. She reports she has loose stools but admits that this is supposed to be the case that she takes lactulose. She has felt feverish but denies subjective fevers. She denies cough, congestion, chest pain, shortness of breath, urinary symptoms. She further adds that she has been evaluated for her gallbladder in the past and it was "functioning normally". On arrival the patient is fatigued appearing but no acute distress, afebrile with stable vital signs. She appears clinically dry. Her abdomen is benign. EKG without overt acute ischemia. Chest x-ray negative for acute cardiopulmonary process. WBC 2.2K, H/H 7.3/22.3, and platelets 37K all approximate to prior range of values in the setting of the patient's pancytopenia and liver disease. INR 1.4, proximate to prior values. Creatinine 2.7 increased from recent baseline of 2 has been similarly high in the past. Glucose 388. Total bilirubin 1.5 with direct bilirubin 0.6, similar to prior range of values. LFTs otherwise unremarkable. Ammonia elevated 82 which is mid range for the patient. Opponent negative/undetectable. Lipase is not elevated. TSH within normal limits. UA is suggestive of infection with WBCs and 4+ bacteria. Covid-19 PCR was negative. The patient was treated with IV fluid hydration and given oral lactulose. Unfortunately, despite receiving antiemetics she did not tolerate this and vomited. Thus, given poor oral intake in the setting of acute on chronic renal insufficiency and uptrending ammonia in setting of UTI reasonable to meet the patient for further management. KUB was performed given the patie nt's vomiting and demonstrated gas dilated loop of small bowel in the mid abdomen which is suspected to represent most likely ileus as moderate amount of stool is seen in the colon. Patient was in agreement with plan for admission. She was treated with ceftriaxone for her UTI. Case was discussed with Dr. Flores, [facility] hospitalist, who will evaluate the patient for admission. Triage Nursing notes reviewed and agree them. Prior medical records reviewed Vital Signs: reviewed and remarkable for no significant abnormalities Differential diagnosis: Gastroenteritis, food borne illness, infections, appendicitis, diverticulitis, inflammatory bowel disease, obstruction, GI bleed, biliary pathology, volvulus, as well as other pathologies. ER treatment provided: See below. Diagnostics interpreted by me: ECG: Sinus rhythm with first-degree AV block, 63 bpm, no ectopy, no overt ST elevation or depression, QTC 495, QRS 92. Cardiac Monitoring: An order for continuous cardiac monitoring was placed and demonstrated Sinus rhythm with first-degree AV block, 63 bpm, no ectopy. Laboratory studies: See below Imaging studies: See below Consultation(s): Case was discussed with Dr. Flores, [facility] hospitalist, who will evaluate the patient for admission. HPI: The patient is a pleasant 66-year-old woman with a past medical history of Fowler cirrhosis, CKD, hypertension, hyperlipidemia, type 2 diabetes on insulin, hepatic encephalopathy, pancytopenia who presents to the emergency department for evaluation of generalized weakness, nausea and vomiting over the past several days. She does admit that she frequently has nausea and in fact often will vomit after taking her lactulose. She reports she has loose stools but admits that this is supposed to be the case that she takes lactulose. She has felt feverish but denies subjective fevers. She denies cough, congestion, chest pain, shortness of breath, urinary symptoms. She further adds that she has been evaluated for her gallbladder in the past and it was "functioning normally". ROS: See above HPI for pertinent positives & negatives. A total of 10 systems reviewed and were otherwise negative. PAST MEDICAL HISTORY:See Below PAST SURGICAL HISTORY:See Below FAMILY HISTORY:See Below SOCIAL HISTORY:See Below HOME MEDICATIONS:See Below ALLERGIES:See Below VITALS:See Below PHYSICAL EXAMINATION: GENERAL: Awake, alert, chronically ill-appearing, in no distress HENT: Normocephalic, atraumatic. Oropharynx with dry mucous membranes and otherwise unremarkable. EYES: Normal conjunctiva. Sclera non-icteric. NECK: Supple. No nuchal rigidity. FROM. No JVD. RESPIRATORY: Clear to auscultation. CARDIAC: Regular rate, normal rhythm. Extremities warm and well perfused. Pulses equal. ABDOMEN: Soft, non-distended. No tenderness to palpation. No rebound or guarding. No masses. RECTAL: Deferred. MUSCULOSKELETAL: Chest examination reveals no tenderness. The back is symmetrical on inspection without obvious abnormality. There is no CVA tenderness to palpation. No joint edema. LOWER EXTREMITIES: Calves are equal size bilaterally and non-tender. No edema. No discoloration. NEURO: Normal sensorium. No sensory or motor deficits noted. No asterixis. SKIN: No rash or jaundice noted. Levi Mae MD Past Med/Surg History Medical History Acute blood loss anemia Anemia of chronic disease Anxiety Bilateral high frequency sensorineural hearing loss CHF (congestive heart failure) Chronic kidney disease, stage 3 (moderate) Diverticular disease DM type 2 (diabetes mellitus, type 2) Duodenal ulcer Esophageal varices Gastric ulcer GERD (gastroesophageal reflux disease) History of GI bleed 03/2020 History of recent blood transfusion (~06/2019) Hyperlipidemia Hypertension Liver cirrhosis secondary to FOWLER Lower GI bleed Nausea and vomiting after administration of anesthetic agent On home oxygen therapy 2L prn for SOB Osteoarthritis Osteoporosis Pancytopenia Pleural effusion Psoriatic arthritis Right shoulder pain Risk for falls Surgical History H/O esophagogastroduodenoscopy 03/21/20 Dr. Shivani Carmen- EGD History of anesthesia reaction difficult to wake after bladder tack sx History of bilateral cataract extraction History of bladder surgery bladder tack History of colonoscopy History of esophagogastroduodenoscopy (EGD) multiple---last 06/22/19 Dr. Malena Marie at [facility] History of hemiarthroplasty of right shoulder January 2018 post fracture History of repair of right rotator cuff History of revision of total shoulder arthroplasty (12/29/18) Right shoulder, 12/29/18 History of shoulder surgery (~11/2019) Had right total arthroplasty removed 11/2019 History of thoracentesis (~10/05/19) left History of tooth extraction all teeth S/P ORIF (open reduction internal fixation) fracture R shoulder, January 2018 S/P shoulder surgery (11/18/19) R TSA removal, I&D, placement of abx spacer Family History Grandmother (Paternal) Family history of diabetes mellitus Father COPD (chronic obstructive pulmonary disease) Mother Hypertension Family/Other Cancer Sister Ovarian cancer Other No family history of adverse response to anesthesia Denies family history of Prostate cancer Myocardial infarction Breast cancer Colorectal cancer Social History Smoking Status: Never smoker Tobacco Type: Cigarettes Age Started Using Tobacco: 17; Age Quit Using Tobacco: 31; packs per day: 1; Second Hand Exposure: No; Hx Alcohol Use: No Hx Substance Use: No Preferred Language: Swedish Communication Ability: Effective Visual Impairment: Limited Hearing Ability: Hard of Hearing Editor News Required: No Beliefs That Will Affect Care: None marital status: Current Living Situation: Spouse Current Living Situation Comment: Lives with and son current occupational status: retired How many Children do You have: 2 Other Information That Helps Us Care for You: No Feels Safe at Home: Yes Safety Concerns: Feels Safe At This Time Childhood Exposure to Second-Hand Smoke: Yes Diet Comment: regular during the past year weight has: remained stable Dental Care, Regularly: No Physical Activity Frequency: Does not Exercise Seatbelt Use: always Sunscreen Use: Yes Do you think of yourself as: straight/heterosexual Gender Identity: Female Assistive Devices: Cane, Denture - Upper, Glasses and Special Shoe Allergies Allergies Allergy/AdvReac Type Severity Reaction Status Date / Time sulfamethoxazole Allergy Intermediate RASH Verified 06/27/21 14:21 trimethoprim Allergy Intermediate RASH Verified 06/27/21 14:21 Sulfa (Sulfonamide Allergy Rash Unverified 06/27/21 14:21 Antibiotics) amlodipine AdvReac Intermediate confusion Verified 06/27/21 14:21 adhesive tape AdvReac Mild ITCHING Verified 06/27/21 14:21 Home Meds Home Medications Medication Instructions Recorded Confirmed blood-glucose sensor (Dexcom G6 #3 ea 12/01/20 05/08/21 Sensor) blood-glucose transmitter (Dexcom #1 ea 12/01/20 05/08/21 G6 Transmitter) furosemide 20 mg tablet 40 mg PO QAM 02/14/21 06/27/21 pantoprazole 40 mg tablet,delayed 40 mg PO QAM 02/14/21 06/27/21 release hydroxyzine HCl 25 mg tablet 25 mg PO TID PRN 06/27/21 06/27/21 teriparatide 20 mcg/dose (620 20 mcg SUBCUT QAM 06/27/21 06/27/21 mcg/2.48 mL) subcutaneous pen injector (Forteo) Previous Rx's Medication Instructions Recorded mometasone 0.1 % topical solution See Rx Instructions TOPICAL DAILY 12/14/20 PRN #30 ml carvedilol 12.5 mg tablet 12.5 mg PO BID #180 tab 01/19/21 rifaximin 550 mg tablet (Xifaxan) 550 mg PO BID #180 tab 01/19/21 clotrimazole-betamethasone 1 1 applic TOPICAL BID PRN #45 g 02/07/21 %-0.05 % topical cream lactulose 20 gram/30 mL oral 45 ml PO BID 30 Days #2700 ml 02/07/21 solution blood sugar diagnostic (OneTouch #100 ea 02/15/21 Ultra Blue Test Strip) ferrous sulfate 325 mg (65 mg 325 mg PO Q OTHER DAY #30 tab 04/27/21 iron) tablet,delayed release hydralazine 10 mg tablet 20 mg PO BID #120 tab 04/27/21 insulin aspart U-100 100 unit/mL See Rx Instructions SQ TID #15 ml 04/27/21 (3 mL) subcutaneous pen (Novolog Flexpen U-100 Insulin aspart) insulin glargine 100 unit/mL (3 15 unit SUBCUT HS #1 box 04/27/21 mL) subcutaneous pen (Basaglar KwikPen U-100 Insulin) folic acid 1 mg tablet 1 mg PO BID #180 tab 05/14/21 sodium bicarbonate 650 mg tablet 1,300 mg PO BID #180 tab 06/04/21 ropinirole 2 mg tablet See Rx Instructions .ROUTE 06/15/21 .COMPLEX #135 tab Results & Data (ED) Vital Signs Vital Signs - 24 hr 06/27/21 11:20 06/27/21 11:37 06/27/21 11:40 Temperature 37.0 C Temperature Source Oral Pulse Rate 62 63 65 Pulse Rate from SpO2 Sensor 63 64 Pulse Rhythm Regular Pulse Strength Normal Respiratory Rate 20 17 14 Respiratory Effort / Characteristics Non-Labored Respiratory Depth Normal Respiratory Pattern Regular Blood Pressure 179/66 H Blood Pressure Mean 103 Blood Pressure Position Lying Pulse Oximetry 96 97 97 Oxygen Delivery Method Room Air Sepsis Recent Fever Within 48 Hours No Sepsis New/Unexplained Change in Mental Status N/A Sepsis Action Taken by Nursing No Action Required 06/27/21 11:50 06/27/21 11:59 06/27/21 12:00 Temperature Temperature Source Pulse Rate 65 63 Pulse Rate from SpO2 Sensor 65 64 Pulse Rhythm Pulse Strength Respiratory Rate 15 20 Respiratory Effort / Characteristics Respiratory Depth Respiratory Pattern Blood Pressure Blood Pressure Mean Blood Pressure Position Pulse Oximetry 96 98 97 Oxygen Delivery Method Sepsis Recent Fever Within 48 Hours Sepsis New/Unexplained Change in Mental Status Sepsis Action Taken by Nursing 06/27/21 12:10 06/27/21 12:20 06/27/21 12:30 Temperature Temperature Source Pulse Rate 62 63 63 Pulse Rate from SpO2 Sensor 62 63 63 Pulse Rhythm Pulse Strength Respiratory Rate 17 17 17 Respiratory Effort / Characteristics Respiratory Depth Respiratory Pattern Blood Pressure Blood Pressure Mean Blood Pressure Position Pulse Oximetry 96 96 95 Oxygen Delivery Method Sepsis Recent Fever Within 48 Hours Sepsis New/Unexplained Change in Mental Status Sepsis Action Taken by Nursing 06/27/21 12:40 06/27/21 12:50 06/27/21 13:01 Temperature Temperature Source Pulse Rate 62 62 Pulse Rate from SpO2 Sensor 63 62 62 Pulse Rhythm Pulse Strength Respiratory Rate 17 17 Respiratory Effort / Characteristics Respiratory Depth Respiratory Pattern Blood Pressure Blood Pressure Mean Blood Pressure Position Pulse Oximetry 94 94 95 Oxygen Delivery Method Sepsis Recent Fever Within 48 Hours Sepsis New/Unexplained Change in Mental Status Sepsis Action Taken by Nursing 06/27/21 13:10 06/27/21 13:20 06/27/21 13:30 Temperature Temperature Source Pulse Rate Pulse Rate from SpO2 Sensor 61 61 61 Pulse Rhythm Pulse Strength Respiratory Rate Respiratory Effort / Characteristics Respiratory Depth Respiratory Pattern Blood Pressure Blood Pressure Mean Blood Pressure Position Pulse Oximetry 94 94 95 Oxygen Delivery Method Sepsis Recent Fever Within 48 Hours Sepsis New/Unexplained Change in Mental Status Sepsis Action Taken by Nursing 06/27/21 13:40 06/27/21 13:50 06/27/21 14:00 Temperature Temperature Source Pulse Rate 63 60 61 Pulse Rate from SpO2 Sensor 63 61 61 Pulse Rhythm Pulse Strength Respiratory Rate 15 17 15 Respiratory Effort / Characteristics Respiratory Depth Respiratory Pattern Blood Pressure Blood Pressure Mean Blood Pressure Position Pulse Oximetry 97 95 97 Oxygen Delivery Method Sepsis Recent Fever Within 48 Hours Sepsis New/Unexplained Change in Mental Status Sepsis Action Taken by Nursing 06/27/21 14:10 06/27/21 14:20 06/27/21 14:30 Temperature Temperature Source Pulse Rate 64 63 61 Pulse Rate from SpO2 Sensor 64 64 61 Pulse Rhythm Pulse Strength Respiratory Rate 24 20 18 Respiratory Effort / Characteristics Respiratory Depth Respiratory Pattern Blood Pressure Blood Pressure Mean Blood Pressure Position Pulse Oximetry 95 97 96 Oxygen Delivery Method Sepsis Recent Fever Within 48 Hours Sepsis New/Unexplained Change in Mental Status Sepsis Action Taken by Nursing 06/27/21 14:40 06/27/21 14:50 06/27/21 15:30 Temperature Temperature Source Pulse Rate 64 72 59 L Pulse Rate from SpO2 Sensor 64 72 59 L Pulse Rhythm Pulse Strength Respiratory Rate 20 20 16 Respiratory Effort / Characteristics Respiratory Depth Respiratory Pattern Blood Pressure 159/109 H Blood Pressure Mean 125 Blood Pressure Position Pulse Oximetry 97 94 93 Oxygen Delivery Method Room Air Sepsis Recent Fever Within 48 Hours Sepsis New/Unexplained Change in Mental Status Sepsis Action Taken by Nursing 06/27/21 16:00 Temperature Temperature Source Pulse Rate 63 Pulse Rate from SpO2 Sensor 63 Pulse Rhythm Pulse Strength Respiratory Rate 17 Respiratory Effort / Characteristics Respiratory Depth Respiratory Pattern Blood Pressure 178/91 H Blood Pressure Mean 120 Blood Pressure Position Pulse Oximetry 94 Oxygen Delivery Method Room Air Sepsis Recent Fever Within 48 Hours Sepsis New/Unexplained Change in Mental Status Sepsis Action Taken by Nursing Laboratory Data Attestation: I reviewed the patient's lab results. Result diagrams: 06/27/21 11:50 06/27/21 11:50 Lab Results 06/27/21 06/27/21 06/27/21 Range/Units 11:50 11:50 11:50 WBC 2.26 L (4.8-10.8) K/uL RBC 2.60 L (4.2-5.4) M/uL Hgb 7.3 L (12.0-16.0) g/dL Hct 22.3 L (37-47) % MCV 85.8 (80-100) fL MCH 28.1 (25-34) pg MCHC 32.7 (32-36) g/dL RDW Std Deviation 48.9 H (36.4-46.3) fL RDW Coeff of Karina 15.5 H (11.5-14.5) % Plt Count 37 L (130-400) K/uL MPV 10.6 H (7.4-10.4) fL Immature Gran % (Auto) 0.0 % Neut % (Auto) 65.1 % Lymph % (Auto) 24.3 % Saunders % (Auto) 8.0 % Eos % (Auto) 2.2 % Baso % (Auto) 0.4 % Neut # (Auto) 1.47 (1.4-6.5) K/uL Lymph # (Auto) 0.55 L (1.2-3.4) K/uL Saunders # (Auto) 0.18 (0.11-0.59) K/uL Eos # (Auto) 0.05 (0-0.5) K/uL Baso # (Auto) 0.01 (0-0.2) K/uL Immature Gran # (Auto) 0.00 (0.00-0.02) K/uL RBC Morphology Unremarkable PT 13.5 H (9.0-12.0) Seconds INR 1.4 H (0.9-1.1) Sodium 141 (136-145) mmol/L Potassium 3.7 (3.5-5.1) mmol/L Chloride 109 H (98-107) mmol/L Carbon Dioxide 22 (21-32) mmol/L Anion Gap 10.0 (3-11) BUN 41 H (7-18) mg/dl Creatinine 2.78 H (0.6-1.2) mg/dl Est Cr Clr Drug Dosing Not Reportable Est GFR ( Amer) 19.9 ml/min Est GFR (Non-Af Amer) 17.2 ml/min BUN/Creatinine Ratio 14.8 (10-20) Glucose 388 H* (70-99) mg/dl POC Glucose (70-99) mg/dl Calcium 8.8 (8.5-10.1) mg/dl Phosphorus 4.1 (2.5-4.9) mg/dl Magnesium 2.4 (1.8-2.4) mg/dl Total Bilirubin 1.5 H (0.2-1) mg/dl Direct Bilirubin 0.6 H (0-0.2) mg/dl AST 23 (15-37) U/L ALT 22 (12-78) U/L Alkaline Phosphatase 127 H (45-117) U/L Ammonia (11-32) umol/L Troponin I < 0.015 (0-0.045) ng/ml Total Protein 6.9 (6.4-8.2) gm/dl Albumin 2.3 L (3.4-5.0) gm/dl Globulin 4.6 H (2.5-4.0) gm/dl Albumin/Globulin Ratio 0.5 L (0.9-2) Lipase 118 (73-393) U/L Beta-Hydroxybutyric Acd 1.24 (0.2-2.81) mg/dl TSH 2.400 (0.300-4.500) uIu/ml Urine Color Urine Appearance (Clear) Urine pH (4.5-7.5) Ur Specific [place] (1.000-1.030) Urine Protein (Negative) Urine Glucose (UA) (Negative) Urine Ketones (Negative) Urine Blood (Negative) Urine Nitrite (Negative) Urine Bilirubin (Negative) Urine Urobilinogen (Negative) Ur Leukocyte Esterase (Negative) Urine WBC (Auto) (0-5) /hpf Urine RBC (Auto) (0-4) /hpf U Hyaline Cast (Auto) (0-5) /lpf U Epithel Cells (Auto) (0-5) /lpf Urine Bacteria (Auto) (Negative) COVID-19 Eval Order SARS-CoV-2 (PCR) (Negative) 06/27/21 06/27/21 06/27/21 Range/Units 12:00 12:00 13:00 WBC (4.8-10.8) K/uL RBC (4.2-5.4) M/uL Hgb (12.0-16.0) g/dL Hct (37-47) % MCV (80-100) fL MCH (25-34) pg MCHC (32-36) g/dL RDW Std Deviation (36.4-46.3) fL RDW Coeff of Karina (11.5-14.5) % Plt Count (130-400) K/uL MPV (7.4-10.4) fL Immature Gran % (Auto) % Neut % (Auto) % Lymph % (Auto) % Saunders % (Auto) % Eos % (Auto) % Baso % (Auto) % Neut # (Auto) (1.4-6.5) K/uL Lymph # (Auto) (1.2-3.4) K/uL Saunders # (Auto) (0.11-0.59) K/uL Eos # (Auto) (0-0.5) K/uL Baso # (Auto) (0-0.2) K/uL Immature Gran # (Auto) (0.00-0.02) K/uL RBC Morphology PT (9.0-12.0) Seconds INR (0.9-1.1) Sodium (136-145) mmol/L Potassium (3.5-5.1) mmol/L Chloride (98-107) mmol/L Carbon Dioxide (21-32) mmol/L Anion Gap (3-11) BUN (7-18) mg/dl Creatinine (0.6-1.2) mg/dl Est Cr Clr Drug Dosing Est GFR ( Amer) ml/min Est GFR (Non-Af Amer) ml/min BUN/Creatinine Ratio (10-20) Glucose (70-99) mg/dl POC Glucose (70-99) mg/dl Calcium (8.5-10.1) mg/dl Phosphorus (2.5-4.9) mg/dl Magnesium (1.8-2.4) mg/dl Total Bilirubin (0.2-1) mg/dl Direct Bilirubin (0-0.2) mg/dl AST (15-37) U/L ALT (12-78) U/L Alkaline Phosphatase (45-117) U/L Ammonia 82.0 H (11-32) umol/L Troponin I (0-0.045) ng/ml Total Protein (6.4-8.2) gm/dl Albumin (3.4-5.0) gm/dl Globulin (2.5-4.0) gm/dl Albumin/Globulin Ratio (0.9-2) Lipase (73-393) U/L Beta-Hydroxybutyric Acd (0.2-2.81) mg/dl TSH (0.300-4.500) uIu/ml Urine Color Urine Appearance (Clear) Urine pH (4.5-7.5) Ur Specific [place] (1.000-1.030) Urine Protein (Negative) Urine Glucose (UA) (Negative) Urine Ketones (Negative) Urine Blood (Negative) Urine Nitrite (Negative) Urine Bilirubin (Negative) Urine Urobilinogen (Negative) Ur Leukocyte Esterase (Negative) Urine WBC (Auto) (0-5) /hpf Urine RBC (Auto) (0-4) /hpf U Hyaline Cast (Auto) (0-5) /lpf U Epithel Cells (Auto) (0-5) /lpf Urine Bacteria (Auto) (Negative) COVID-19 Eval Order Covid19 at [facility] SARS-CoV-2 (PCR) NEGATIVE (Negative) 06/27/21 06/27/21 Range/Units 13:38 15:42 WBC (4.8-10.8) K/uL RBC (4.2-5.4) M/uL Hgb (12.0-16.0) g/dL Hct (37-47) % MCV (80-100) fL MCH (25-34) pg MCHC (32-36) g/dL RDW Std Deviation (36.4-46.3) fL RDW Coeff of Karina (11.5-14.5) % Plt Count (130-400) K/uL MPV (7.4-10.4) fL Immature Gran % (Auto) % Neut % (Auto) % Lymph % (Auto) % Saunders % (Auto) % Eos % (Auto) % Baso % (Auto) % Neut # (Auto) (1.4-6.5) K/uL Lymph # (Auto) (1.2-3.4) K/uL Saunders # (Auto) (0.11-0.59) K/uL Eos # (Auto) (0-0.5) K/uL Baso # (Auto) (0-0.2) K/uL Immature Gran # (Auto) (0.00-0.02) K/uL RBC Morphology PT (9.0-12.0) Seconds INR (0.9-1.1) Sodium (136-145) mmol/L Potassium (3.5-5.1) mmol/L Chloride (98-107) mmol/L Carbon Dioxide (21-32) mmol/L Anion Gap (3-11) BUN (7-18) mg/dl Creatinine (0.6-1.2) mg/dl Est Cr Clr Drug Dosing Est GFR ( Amer) ml/min Est GFR (Non-Af Amer) ml/min BUN/Creatinine Ratio (10-20) Glucose (70-99) mg/dl POC Glucose 340 H* (70-99) mg/dl Calcium (8.5-10.1) mg/dl Phosphorus (2.5-4.9) mg/dl Magnesium (1.8-2.4) mg/dl Total Bilirubin (0.2-1) mg/dl Direct Bilirubin (0-0.2) mg/dl AST (15-37) U/L ALT (12-78) U/L Alkaline Phosphatase (45-117) U/L Ammonia (11-32) umol/L Troponin I (0-0.045) ng/ml Total Protein (6.4-8.2) gm/dl Albumin (3.4-5.0) gm/dl Globulin (2.5-4.0) gm/dl Albumin/Globulin Ratio (0.9-2) Lipase (73-393) U/L Beta-Hydroxybutyric Acd (0.2-2.81) mg/dl TSH (0.300-4.500) uIu/ml Urine Color Yellow Urine Appearance Cloudy A (Clear) Urine pH 6.5 (4.5-7.5) Ur Specific [place] 1.012 (1.000-1.030) Urine Protein 1+ H (Negative) Urine Glucose (UA) 2+ H (Negative) Urine Ketones Negative (Negative) Urine Blood 1+ H (Negative) Urine Nitrite Negative (Negative) Urine Bilirubin Negative (Negative) Urine Urobilinogen Negative (Negative) Ur Leukocyte Esterase Trace H (Negative) Urine WBC (Auto) 10-30 H (0-5) /hpf Urine RBC (Auto) 5-10 H (0-4) /hpf U Hyaline Cast (Auto) 1-5 (0-5) /lpf U Epithel Cells (Auto) 0-5 (0-5) /lpf Urine Bacteria (Auto) 4+ H (Negative) COVID-19 Eval Order SARS-CoV-2 (PCR) (Negative) Administered Medications Lactulose 200 gm/ Sterile Water 700 ml/ BARCODE IDENTIFIER 1 ea 0 gm [place] Q8H BOBBY Stop: 07/27/21 17:59 Last Admin: 06/27/21 20:12 Dose: 200 gm Documented by: [id number] Lactated Ringer's (Lr) 1,000 mls @ 100 mls/hr IV .Q10H BOBBY Stop: 06/28/21 09:50 Last Admin: 06/27/21 16:21 Dose: 125 mls/hr Documented by: [id number] Insulin Aspart (Insulin Aspart 100 Units/Ml 3 Ml Pen) 0 units SC ACHS BOBBY Stop: 07/27/21 18:14 Last Admin: 06/27/21 19:47 Dose: 6 units Documented by: [id number] Cosigned by: [id number] Miscellaneous (Unit Dose Compound) 1 ea [place] Q8H BOBBY Stop: 07/27/21 17:59 Last Admin: 06/27/21 20:35 Dose: Not Given Documented by: [id number] Discontinued Medications Sodium Chloride (Nss 1000ml) 1,000 mls @ 999 mls/hr IV .Q1H1M ONE Stop: 06/27/21 13:01 Last Infusion: 06/27/21 13:19 Dose: 0 mls/hr Documented by: [id number] Admin: 06/27/21 12:18 Dose: 999 mls/hr Documented by: [id number] Famotidine (Pepcid 20mg Iv Push) 20 mg in 5 mls @ 2.5 mls/min IV NOW STA Stop: 06/27/21 12:02 Last Admin: 06/27/21 12:18 Dose: 2.5 mls/min Documented by: [id number] Ceftriaxone Sodium (Rocephin) 2,000 mg in 70 mls @ 140 mls/hr IV NOW STA Stop: 06/27/21 15:32 Last Infusion: 06/27/21 16:08 Dose: 0 mls/hr Documented by: [id number] Admin: 06/27/21 15:38 Dose: 140 mls/hr Documented by: [id number] Insulin Glargine (Insulin Glargine Solostar 100 Units/Ml 3 Ml Pen) 15 units SC NOW ONE Stop: 06/27/21 18:16 Last Admin: 06/27/21 20:08 Dose: 15 units Documented by: [id number] Cosigned by: [id number] Insulin Human Regular (Novolin-R Insulin Per Unit Charge) 10 units IV NOW STA Stop: 06/27/21 15:58 Last Admin: 06/27/21 16:16 Dose: 10 units Documented by: [id number] Cosigned by: [id number] Lactulose (Lactulose Syrup 30 Gm/45 Ml Udp) 30 gm PO NOW STA Stop: 06/27/21 13:43 Last Admin: 06/27/21 14:40 Dose: 30 gm Documented by: [id number] Ondansetron HCl (Ondansetron Inj 2 Mg/Ml 2 Ml Vial) 4 mg IV NOW STA Stop: 06/27/21 12:02 Last Admin: 06/27/21 12:18 Dose: 4 mg Documented by: [id number] Ondansetron HCl (Ondansetron Inj 2 Mg/Ml 2 Ml Vial) 4 mg IV NOW STA Stop: 06/27/21 15:02 Last Admin: 06/27/21 15:38 Dose: 4 mg Documented by: [id number] Imaging Data Radiologist's Impression: Chest X-Ray 06/27/21 12:00 XR chest 1V portable CLINICAL HISTORY: abd pain, n/v TECHNIQUE: Single frontal radiograph of the chest was obtained. Comparison: Comparison is made to chest one view 12/06/2020 FINDINGS: No lines and tubes are seen. Cardiomegaly is noted. The lungs are clear. No evidence of pleural effusion or pneumothorax. Redemonstration of right humeral orthopedic hardware. IMPRESSION: No acute chest disease. ACT 112: Negative or not required by law. Electronically signed by: Eitan Mcgregor M.D. 06/27/2021 1:04 PM KUB X-Ray 06/27/21 15:01 XR KUB/Abdomen 1 view CLINICAL HISTORY: n/v TECHNIQUE: 1 view of the abdomen was obtained. Comparison: Comparison is made to chest and abdomen radiographs 06/23/2020 FINDINGS: Lung bases are unremarkable. The osseous structures are grossly unremarkable. A gas dilated loop of bowel is seen in the mid abdomen measuring up to 15 mm in diameter. A moderate amount of stool is noted within the large bowel. IMPRESSION: Gas dilated loop of bowel in the midabdomen, likely small bowel. This may represent an early/partial small bowel obstruction versus ileus. ACT 112: Negative or not required by law. Electronically signed by: Eitan Mcgregor M.D. 06/27/2021 4:09 PM Discharge Plan Visit Data Chief Complaint: Illness ED Provider: Levi Mae Discharge Problem: Hyperammonemia, Nausea & vomiting, Acute on chronic renal insufficiency, Hyperglycemia due to type 2 diabetes mellitus Patient Disposition: Admitted As Inpatient Discharge Instructions Interventions: ED Discharge Assessment Last Done: 06/27/21 17:38 Discharge Problem: Nausea & vomiting Qualifiers: Vomiting type: unspecified Vomiting Intractability: unspecified Qualified Code(s): R11.2 - Nausea with vomiting, unspecified Hyperglycemia due to type 2 diabetes mellitus Qualifiers: Diabetes mellitus halfway insulin use: with halfway use Qualified Code(s): E11.65 - Type 2 diabetes mellitus with hyperglycemia
[2021-06-27] MEDS ORDERED: INSULIN GLARGINE SOLOSTAR 100 UNITS/ML 3 ML PEN SC ONE (18:15)
--- NOTE | 2021-06-27 18:28 | Pharmacy Report ---
Pharmacy Glycemic Short Note 2 - Date of Service June 27, 2021 - Glycemic Short BSG Results (Last 24 hours): 06/27/21 06/27/21 06/27/21 11:50 15:42 17:13 Glucose 388 H* POC Glucose 340 H* 232 H OUTPATIENT ANTIDIABETIC REGIMEN: * Glargine 15 units Hs, Novolog sliding scale, 5 units with meals (per last diabetes visit) * A1c pending ASSESSMENT: * Patient with a history of MAE, CKD, HTN, HLD, Type 2 diabetes, hepatic encephalopathy, admitted with generalized weakness, nausea and vomiting over the past several days. * Hyperglycemic on admission and was administered 10 unit IV bolus in the ED, down to 232 mg/dL on recheck * Will start home lantus dosing, novolog home correction with a weight based stress of 2 carb ratio. Ordered clear liquid diet. * Adjustments to regimen to be determined. Overnight checks tonight to assist. PLAN FOR INPATIENT GLYCEMIC CONTROL: * Basal insulin * Lantus 15 units SQ x1 * Bolus insulin * NovoLog per scale ACHS or Q6hrs while NPO * Goal Range: Low 110 mg/dL - High 140 mg/dL * Correction Factor: 20 mg/dL/unit * Nutritional / Prandial insulin per carb ratio of 1 unit per 11 grams CHO consumed
[2021-06-27] MEDS: INSULIN ASPART 100 UNITS/ML 3 ML PEN SC SCH ×2 (19:47→21:00)
[2021-06-27] MEDS: LACTULOSE 200 GM, WATER, STERILE IRRIG 700 ML, BARCODE IDENTIFIER 1 EA PR SCH (20:12)
[2021-06-27] MEDS: UNIT DOSE COMPOUND PR SCH (20:35)
[2021-06-27] MEDS: hydrALAZINE 10 MG TAB PO SCH (21:53)
[2021-06-27] MEDS: carvediloL 12.5 MG TAB PO SCH (21:53)
[2021-06-27] MEDS: SODIUM BICARBONATE 650 MG TAB PO SCH (21:53)
[2021-06-27] MEDS: rifAXIMin 550 MG TABLET PO SCH (21:53)
[2021-06-27] MEDS: rOPINIRole HCL 1 MG TABLET PO SCH (21:53)
[2021-06-28] MEDS: LACTATED RINGER'S 1,000 ML IV SCH (01:17)
[2021-06-28] MEDS: UNIT DOSE COMPOUND PR SCH ×3 (02:58→18:40)
[2021-06-28] MEDS: LACTULOSE 200 GM, WATER, STERILE IRRIG 700 ML, BARCODE IDENTIFIER 1 EA PR SCH ×3 (02:58→18:39)
[2021-06-28] MEDS: INSULIN ASPART 100 UNITS/ML 3 ML PEN SC SCH ×6 (03:55→21:35)
[2021-06-28 06:41] LABS: Hematocrit (blood only) 19.7 % (37-47); Hemoglobin 6.4 g/dL (12.0-16.0); Mean Corpuscular Hemoglobin 27.8 pg (25-34); Mean Corpuscular Hgb Conc 32.5 g/dL (32-36); Mean Corpuscular Volume 85.7 fL (80-100); Mean Platelet Volume 10.7 fL (7.4-10.4); Platelet Count 32 K/uL (130-400); RDW Coefficient of Variation 15.5 % (11.5-14.5); White Blood Count 2.02 K/uL (4.8-10.8)
[2021-06-28] MEDS ORDERED: SODIUM CHLORIDE 0.9% 250 ML IV PRN (06:49)
[2021-06-28 06:53] LABS: Albumin Level 1.9 gm/dl (3.4-5.0); BUN Creatinine Ratio 14.4 (10-20); Calcium 8.3 mg/dl (8.5-10.1); Creatinine Clr Calc Pharmacy 18.8 ml/min; Est GFR (African American) 20.7 ml/min; Est GFR (Non-African American) 17.9 ml/min; Potassium 3.4 mmol/L (3.5-5.1)
[2021-06-28 06:55] LABS: Albumin Globulin Ratio 0.5 (0.9-2); Bilirubin,Total 1.1 mg/dl (0.2-1); Globulin 4.2 gm/dl (2.5-4.0); Total Protein 6.1 gm/dl (6.4-8.2)
[2021-06-28 07:00] LABS: Basophils # (auto) 0.01 K/uL (0-0.2); Basophils % (auto) 0.5 %; Eosinophils # (auto) 0.07 K/uL (0-0.5); Eosinophils % (auto) 3.5 %; Lymphocytes # (auto) 0.52 K/uL (1.2-3.4); Lymphocytes % (auto) 25.7 %; Monocytes # (auto) 0.16 K/uL (0.11-0.59); Monocytes % (auto) 7.9 %; Neutrophils # (auto) 1.26 K/uL (1.4-6.5); Neutrophils % (auto) 62.4 %; RBC Morphology Unremarkable
--- NOTE | 2021-06-28 07:55 | Hospitalist Progress Note ---
Date of Service June 28, 2021 Assessment & Plan (1) Anemia: Plan: Anemia with pancytopenia Chronic, patient followed by oncology as outpatient No Acute bleeding on exam Hemoccult pending Last EGD 02/2021: Performed by Dr. Llanes. Small (less than 5 mm) varices found in lower third of esophagus without stigmata. Severe portal hypertensive gastropathy. Varices with no bleeding in the cardia, no stigmata of recent bleeding. Normal duodenum. Colonoscopy 02/17/[address] Llanes: Copious stool impeding exam, poor prep, repeat was deferred at that time due to comorbidity Hemoglobin appears to run chronically between 7.09.0, followed as outpatient for iron infusions and blood transfusions Hemoglobin on admission 7.3, 6.4 morning of 06/28 PRBC infusion ordered ? 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 Has received 2 bone marrow biopsies previously which were negative for multiple myeloma ? Low-grade lymphoproliferative disorder Axillary lymph node biopsy 2019 showed lymphoid hyperplasia without evidence of lymphoma or carcinoma Outpatient follow-up with heme-onc, no acute intervention (3) Nausea and vomiting: Plan: Prior EGD as above Clinically improved today CXR suggestive of early SBO, but patient with BM day of admission Follow clinically, if increased nausea/vomiting or worsening abdominal symptoms make n.p.o., add IV fluids, obtain KUB (4) UTI (urinary tract infection): Plan: UA infected appearing Rocephin 1 g IV empiric UC pending (5) DM type 2 (diabetes mellitus, type 2): Plan: HbA1C 6.0 in January. Repeat with AM labs. Consult pharmacy for glycemic control. (6) Hyperammonemia: Plan: Unable to take lactulose PO (reports this is a chronic problem) therefore will start lactulose enemas . unclear if this is truly contributing towards her generalized fatigue (7) Hyperlipidemia: (8) 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: Plan: Liver cirrhosis Follows with Dr. Llamas See EGD above, patient with prior nonbleeding small varices Has not been a candidate for liver transplant -Lactulose as above -Continue rifaximin as able -Limit acetaminophen to 2g (9) Hypertension: Plan: -Continue carvedilol, hold lasix as above and start gentle IV fluids overnight (10) History of GI bleed: Plan: See above (11) Fatigue: Plan: Suspect due to anemia as above and chronic multiple medical conditions/comorbidities Treatment as above (12) Elevated serum creatinine: Plan: -CKD stage IV -Cr 2.78 on admission, up from her baseline of around 2. - hold furosemide and give gentle IV hydration overnight. -Repeat BMP in AM -Continue sodium bicarbonate 1300mg PO BID Plan: VTE Prophylaxis - deferred due to thrombocytopenia Diet - clear liquids, T2DM Disposition - admit to med/surg Admission and Anticipated Discharge Date Admission Date: June 27, 2021 Ana Angela seen at bedside this morning. She reports she feels better than yesterday, althoughSomewhat more fatigued than usual. She reports she was nauseous yesterday, that seems slightly improved today. She reports she normally has bowel movements once every other to every 3 days, and sometimes 3 bowel movements at a time. Reports she has been followed as an outpatient for this and has been constipated with iron in the past. Reports her bowel movements have been brown, denies melena. She reports she has had melena before during her GI bleed, and has not had a recurrent episode recently. She has occasional bright red blood on the toilet paper from hemorrhoids. She reports that she is pending a bone marrow biopsy for pancytopenia with [facility] and Dr. Lee as outpatient. Reports she has chronic anemia requiring intermittent blood transfusions, denies any nosebleeds/cuts/bleeding in the last week. Review of Systems Review of Systems: Constitutional: Endorses fatigue Eyes: Denies vision change ENT: Denies ear pain, sore throat, sinus pain Cardiovascular: Denies Chest pain, chest pressure, palpitations. Endorses intermittent extremity swelling, None today Respiratory: Denies shortness of breath, cough, sputum production, difficulty breathing Gastrointestinal: See HPI Genitourinary: Denies dysuria, urinary frequency Musculoskeletal: Denies acute focal weakness, muscle aches/pain, joint aches/pain. Endorses chronic weakness Integumentary:Denies acute rash, lesions, bruising Neurological: Denies acute headache, numbness, tingling, focal weakness. Physical Exam Physical Exam: General: A&Ox3. NAD. Cooperative. Appears fatigued, but nontoxic HEENT: Atraumatic, normocephalic. Pupils equal and reactive to light Pulm: CTAB A&P. -wheezes, -rales, -rhonchi. Symmetrical chest rise. No increase work of breathing. No respiratory distress. Cardiac: RRR, -mrg. Radial pulses intact and symmetrical. Abdominal: Nontender, nondistended, soft. BS present. Ext: Warm, dry, moving all extremities equally. Cap refill less than 2 seconds in hallux bilaterally. Results & Data Results & Data ([facility]) Vital Signs (Past 12 Hours) Vital Signs Temp Pulse Resp BP Pulse Ox 06/27/21 23:01 36.4 C L 58 L 18 129/69 96 PG Care Time/CCT Total # of Minutes Spent Total Time Spent with Patient: Total time spent is greater than 50% in coordination of care (as documented) at patient's floor/unit and/or counseling patient: Coding Level of Care Code 68498 Subseq Hosp Care Lvl 3 Diagnoses Nausea and vomiting R11.2 UTI (urinary tract infection) N39.0 DM type 2 (diabetes mellitus, type 2) E11.65 Diabetes mellitus complication status: with hyperglycemia Diabetes mellitus terminal block assembler insulin use: without custodial use Hyperammonemia E72.20 Hyperlipidemia E78.5 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 K75.81; K74.60 Hypertension I10 Hypertension type: unspecified Anemia D64.9 History of GI bleed Z87.19 Pancytopenia D61.818 Fatigue R53.83 Elevated serum creatinine R79.89 (1) DM type 2 (diabetes mellitus, type 2) Diabetes mellitus complication status: with hyperglycemia Diabetes mellitus custodial insulin use: without terminal block assembler use Qualified Code(s): E11.65 - Type 2 diabetes mellitus with hyperglycemia (2) Hypertension Hypertension type: unspecified Qualified Code(s): I10 - Essential (primary) hypertension
[2021-06-28] MEDS: carvediloL 12.5 MG TAB PO SCH ×2 (08:41→21:33)
[2021-06-28] MEDS: PANTOprazole 40 MG TAB PO SCH (08:42)
[2021-06-28] MEDS: rifAXIMin 550 MG TABLET PO SCH ×2 (08:42→21:33)
[2021-06-28] MEDS: hydrALAZINE 10 MG TAB PO SCH ×3 (08:42→21:33)
[2021-06-28] MEDS: SODIUM BICARBONATE 650 MG TAB PO SCH ×2 (08:43→21:33)
--- NOTE | 2021-06-28 09:28 | Pharmacy Report ---
Pharmacy Glycemic Short Note 2 - Date of Service June 28, 2021 - Glycemic Short BSG Results (Last 24 hours): 06/27/21 06/27/21 06/27/21 11:50 15:42 17:13 Glucose 388 H* POC Glucose 340 H* 232 H 06/27/21 06/27/21 06/28/21 20:40 23:48 03:50 Glucose POC Glucose 237 H 139 H 89 06/28/21 06/28/21 05:31 08:17 Glucose 80 POC Glucose 87 OUTPATIENT ANTIDIABETIC REGIMEN: * Glargine 15 units Hs, Novolog sliding scale, 5 units with meals (per last diabetes visit) * A1c pending ASSESSMENT: 06/28: * BSG control has improved significantly * Angela received her home dose of Lantus 15 units last evening. Fasting BSG of 87 mg/dL this morning. * Will slightly decrease Lantus dose for this evening. * Loosen Novolog since severe hyperglycemia has resolved. Background: * Patient with a history of MAE, CKD, HTN, HLD, Type 2 diabetes, hepatic encephalopathy, admitted with generalized weakness, nausea and vomiting over the past several days. * Hyperglycemic on admission and was administered 10 unit IV bolus in the ED, down to 232 mg/dL on recheck * Will start home lantus dosing, novolog home correction with a weight based stress of 2 carb ratio. Ordered clear liquid diet. * Adjustments to regimen to be determined. Overnight checks tonight to assist. PLAN FOR INPATIENT GLYCEMIC CONTROL: * Basal insulin * Lantus 13 units SQ qHS * Bolus insulin * NovoLog per scale ACHS or Q6hrs while NPO * Goal Range: Low 110 mg/dL - High 140 mg/dL * Correction Factor: 30 mg/dL/unit * Nutritional / Prandial insulin per carb ratio of 1 unit per 10 grams CHO consumed DISCHARGE RECOMMENDATIONS: * A1c 9.1% (increased from 6% in January 2021) * tbd
[2021-06-28 10:03] LABS: Estimated Average Glucose 214 mg/dl; Hemoglobin A1C 9.1 % (4.5-5.6)
--- NOTE | 2021-06-28 13:19 | Electrocardiogram Report ---
Test Reason : Blood Pressure : / mmHG Vent. Rate : 063 BPM Atrial Rate : 063 BPM P-R Int : 210 ms QRS Dur : 092 ms QT Int : 484 ms P-R-T Axes : 059 053 029 degrees QTc Int : 495 ms Sinus rhythm with 1st degree A-V block Prolonged QT Abnormal ECG When compared with ECG of 30-JAN-2021 18:31, No significant change was found Confirmed by Adam Mcgraw ([id number]) on 06/28/2021 1:18:55 PM Referred By: Rocío Alonso Confirmed By:Adam Mcgraw
[2021-06-28] MEDS: rOPINIRole HCL 1 MG TABLET PO SCH ×2 (13:32→21:34)
[2021-06-28 14:26] LABS: Hematocrit (blood only) 27.7 % (37-47); Hemoglobin 9.1 g/dL (12.0-16.0)
[2021-06-28] MEDS: cefTRIAXone SODIUM 1,000 MG in DEXTROSE 5% 50 ML IV SCH (16:23)
[2021-06-28 18:12] LABS: Hematocrit (blood only) 31.7 % (37-47); Hemoglobin 10.4 g/dL (12.0-16.0)
[2021-06-28] MEDS: INSULIN GLARGINE SOLOSTAR 100 UNITS/ML 3 ML PEN SC SCH (21:35)
[2021-06-29] MEDS: LACTULOSE 200 GM, WATER, STERILE IRRIG 700 ML, BARCODE IDENTIFIER 1 EA PR SCH (02:30)
[2021-06-29] MEDS: UNIT DOSE COMPOUND PR SCH (02:43)
[2021-06-29 07:40] LABS: Hematocrit (blood only) 28.2 % (37-47); Hemoglobin 9.2 g/dL (12.0-16.0); Mean Corpuscular Hemoglobin 28.5 pg (25-34); Mean Corpuscular Hgb Conc 32.6 g/dL (32-36); Mean Corpuscular Volume 87.3 fL (80-100); Mean Platelet Volume 10.4 fL (7.4-10.4); Platelet Count 29 K/uL (130-400); RDW Coefficient of Variation 15.1 % (11.5-14.5); RDW Standard Deviation 48.3 fL (36.4-46.3); Red Blood Count 3.23 M/uL (4.2-5.4); White Blood Count 2.75 K/uL (4.8-10.8)
[2021-06-29 07:42] LABS: Basophils # (auto) 0.01 K/uL (0-0.2); Basophils % (auto) 0.4 %; Eosinophils # (auto) 0.09 K/uL (0-0.5); Eosinophils % (auto) 3.3 %; Immature Granulocytes # (auto) 0.01 K/uL (0.00-0.02); Immature Granulocytes % (auto) 0.4 %; Lymphocytes # (auto) 0.56 K/uL (1.2-3.4); Lymphocytes % (auto) 20.4 %; Monocytes # (auto) 0.25 K/uL (0.11-0.59); Monocytes % (auto) 9.1 %; Neutrophils # (auto) 1.83 K/uL (1.4-6.5); Neutrophils % (auto) 66.4 %; Platelet Estimate SIGNIFIC DECREASED (Normal)
[2021-06-29 07:46] LABS: BUN Creatinine Ratio 13.1 (10-20); Calcium 8.4 mg/dl (8.5-10.1); Creatinine Clr Calc Pharmacy 17.2 ml/min; Est GFR (African American) 18.6 ml/min; Potassium 3.7 mmol/L (3.5-5.1)
[2021-06-29 07:51] LABS: Albumin Globulin Ratio 0.4 (0.9-2); Bilirubin,Total 1.4 mg/dl (0.2-1); Globulin 4.5 gm/dl (2.5-4.0); Total Protein 6.5 gm/dl (6.4-8.2)
[2021-06-29] MEDS ORDERED: MICONAZOLE NITRATE POWDER 43 GM EXT PRN (07:55)
--- NOTE | 2021-06-29 07:55 | Hospitalist Progress Note ---
Date of Service June 29, 2021 Assessment & Plan (1) Anemia: Plan: Anemia with pancytopenia Chronic, patient followed by oncology as outpatient Multifactorial, anemia of chronic disease, splenomegaly sequestration,? GI bleed with history of small varices No Acute bleeding on exam Last EGD 02/2021: Performed by Dr. Llanes. Small (less than 5 mm) varices found in lower third of esophagus without stigmata. Severe portal hypertensive gastropathy. Varices with no bleeding in the cardia, no stigmata of recent bleeding. Normal duodenum. Colonoscopy 02/17/[address] Llanes: Copious stool impeding exam, poor prep, repeat was deferred at that time due to comorbidity Hemoglobin appears to run chronically between 7.09.0, followed as outpatient for iron infusions and blood transfusions Hemoglobin on admission 7.3, 6.4 morning of 06/28 s/p appropriate rise with 2 units pRBC ? chronic downtrend versus acute bleed MCV 85 Plt 29k with downtrend in hgb, platelet transfusion ordered. Continue to follow hemoglobin until uptrending. Hematology oncology consulted, no additional change in management. If persistently below 10 may consider EPO injection. Occult blood pending (2) Pancytopenia: Plan: Followed by [facility] hematology oncology History of pancytopenia thought to be multifactorial due to liver cirrhosis, anemia of chronic disease with inflammation 2/2 rheumatoid/OA/DM/psoriasis/CHF/CKD, and iron deficiency Patient receives blood transfusions/iron infusions as needed - polyclonal gammopathy Worked up as outpatient, thought to be reactive in the setting of inflammation and autoimmune disease. Has received 2 bone marrow biopsies previously which were negative for multiple myeloma ? Low-grade lymphoproliferative disorder Axillary lymph node biopsy 2019 showed lymphoid hyperplasia without evidence of lymphoma or carcinoma (3) Nausea and vomiting: Plan: Prior EGD as above Clinically improved CXR suggestive of early SBO, but patient with BM day of admission Follow clinically, if increased nausea/vomiting or worsening abdominal symptoms make n.p.o., add IV fluids, obtain KUB (4) UTI (urinary tract infection): Plan: UA infected appearing Rocephin 1 g IV empiric UC positive for Klebsiella oxytocin. Resistant to cefazolin/Unasyn. Otherwise pansensitive. Continue Rocephin for 5-day total course, if discharged may complete course with oral Cipro. (5) DM type 2 (diabetes mellitus, type 2): Plan: HbA1C 6.0 in January. Repeat with AM labs. Pharmacy consulted for glycemic management Insulin glargine 13 units scheduled at bedtime Insulin SSI, goal 1001 40 (6) Hyperammonemia: Plan: Unable to take lactulose PO (reports this is a chronic problem) therefore will start lactulose enemas On reassessment and after NH lactulose pt reports she can tolerate lactulose if taken with orange juice. Ammonia increased PO lactulose TID, if N/V intolerance resume NH Trend (7) Hyperlipidemia: (8) 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: Plan: Liver cirrhosis Follows with Dr. Llamas See EGD above, patient with prior nonbleeding small varices Has not been a candidate for liver transplant -Lactulose as above -Continue rifaximin -Limit acetaminophen to 2g (9) Hypertension: Plan: -Continue carvedilol (10) History of GI bleed: Plan: See above (11) Fatigue: Plan: Suspect due to anemia as above and chronic multiple medical conditions/comorbidities Treatment as above (12) Elevated serum creatinine: Plan: -CKD stage IV -Cr 2.78 on admission, up from her baseline of around 2. -Creatinine elevated to 2.94 from 2.6 Defer additional Lasix at this time -Repeat BMP in AM -Continue sodium bicarbonate 1300mg PO BID IVF Plan: VTE Prophylaxis - deferred due to thrombocytopenia Diet - clear liquids, T2DM Disposition - admit to med/surg Admission and Anticipated Discharge Date Admission Date: June 27, 2021 Subjective Patient is seen at the bedside this morning. No epistaxis/melena. She reports that she is not able to tolerate the lactulose enemas, is able to tolerate lactulose at home with orange juice and would like to try this instead. Ammonia remains high. No chest pain, chest pressure, shortness of breath, difficulty breathing, fever, chills, sweats. Tolerating platelet transfusion well. Review of Systems Review of Systems: Constitutional: Endorses fatigue Eyes: Denies vision change ENT: Denies ear pain, sore throat, sinus pain Cardiovascular: Denies Chest pain, chest pressure, palpitations. Endorses intermittent extremity swelling, None today Respiratory: Denies shortness of breath, cough, sputum production, difficulty breathing Gastrointestinal: See HPI Genitourinary: Denies dysuria, urinary frequency Musculoskeletal: Denies acute focal weakness, muscle aches/pain, joint aches/pain. Endorses chronic weakness Integumentary:Denies acute rash, lesions, bruising Neurological: Denies acute headache, numbness, tingling, focal weakness. Physical Exam Physical Exam: General: A&Ox3. NAD. Cooperative. Appears fatigued, but nontoxic HEENT: Atraumatic, normocephalic. Pupils equal and reactive to light. Visual acuity and hearing grossly intact. Pulm: CTAB A&P. -wheezes, -rales, -rhonchi. Symmetrical chest rise. No increase work of breathing. No respiratory distress. Cardiac: RRR, -mrg. Radial pulses intact and symmetrical. Abdominal: Nontender, nondistended, soft. BS present. Ext: Warm, dry, moving all extremities equally. Results & Data Results & Data ([facility]) Vital Signs (Past 12 Hours) Vital Signs Temp Pulse Pulse Resp BP Pulse Ox 06/29/21 07:10 36.8 C 67 16 147/63 H 94 06/28/21 22:55 36.8 C 69 18 136/73 92 06/28/21 21:30 65 182/70 H PG Care Time/CCT Total # of Minutes Spent Total Time Spent with Patient: Total time spent is greater than 50% in coordination of care (as documented) at patient's floor/unit and/or counseling patient: Coding Level of Care Code 31130 Subseq Hosp Care Lvl 3 Diagnoses Anemia D64.9 Pancytopenia D61.818 Nausea and vomiting R11.2 UTI (urinary tract infection) N39.0 DM type 2 (diabetes mellitus, type 2) E11.65 Diabetes mellitus complication status: with hyperglycemia Diabetes mellitus fdc insulin use: without fdc use Hyperammonemia E72.20 Hyperlipidemia E78.5 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 K75.81; K74.60 Hypertension I10 Hypertension type: unspecified History of GI bleed Z87.19 Fatigue R53.83 Elevated serum creatinine R79.89 (1) DM type 2 (diabetes mellitus, type 2) Diabetes mellitus complication status: with hyperglycemia Diabetes mellitus medical terminologist insulin use: without fdc use Qualified Code(s): E11.65 - Type 2 diabetes mellitus with hyperglycemia (2) Hypertension Hypertension type: unspecified Qualified Code(s): I10 - Essential (primary) hypertension
[2021-06-29] MEDS: INSULIN ASPART 100 UNITS/ML 3 ML PEN SC SCH ×4 (09:51→21:00)
--- NOTE | 2021-06-29 09:52 | Pharmacy Report ---
Pharmacy Glycemic Short Note 2 - Date of Service June 29, 2021 - Glycemic Short BSG Results (Last 24 hours): 06/28/21 06/28/21 06/28/21 11:49 17:01 20:30 Glucose POC Glucose 182 H 152 H 136 H 06/29/21 06/29/21 06:54 07:56 Glucose 96 POC Glucose 98 OUTPATIENT ANTIDIABETIC REGIMEN: * Glargine 15 units HS, Novolog sliding scale, 5 units with meals (per last diabetes visit) * A1c pending ASSESSMENT: 06/29: * Angela received 21 units of insulin yesterday (13 units basal + 8 units bolus). BSGs were well controlled. Minimal carbohydrate intake. * Fasting BSG improved. Continue current Lantus dose. * Lunch time BSG elevated, 224 mg/dL. Will slightly tighten carb coverage. I suspect elevation is mainly due to timing of AM novolog in relation to lunch BSG check. 06/28: * BSG control has improved significantly * Angela received her home dose of Lantus 15 units last evening. Fasting BSG of 87 mg/dL this morning. * Will slightly decrease Lantus dose for this evening. * Loosen Novolog since severe hyperglycemia has resolved. Background: * Patient with a history of MAE, CKD, HTN, HLD, Type 2 diabetes, hepatic encephalopathy, admitted with generalized weakness, nausea and vomiting over the past several days. * Hyperglycemic on admission and was administered 10 unit IV bolus in the ED, down to 232 mg/dL on recheck * Will start home lantus dosing, novolog home correction with a weight based stress of 2 carb ratio. Ordered clear liquid diet. * Adjustments to regimen to be determined. Overnight checks tonight to assist. PLAN FOR INPATIENT GLYCEMIC CONTROL: * Basal insulin * Lantus 13 units SQ qHS * Bolus insulin * NovoLog per scale ACHS or Q6hrs while NPO * Goal Range: Low 110 mg/dL - High 140 mg/dL * Correction Factor: 30 mg/dL/unit * Nutritional / Prandial insulin per carb ratio of 1 unit per 9 grams CHO consumed DISCHARGE RECOMMENDATIONS: * A1c 9.1% (increased from 6% in January 2021) * of note, this result is likely somewhat unreliable due to chronic anemia & blood/iron transfusions in the setting of CKD * tbd
[2021-06-29] MEDS: SODIUM BICARBONATE 650 MG TAB PO SCH ×2 (09:55→20:58)
[2021-06-29] MEDS: carvediloL 12.5 MG TAB PO SCH ×2 (09:55→20:58)
[2021-06-29] MEDS: rifAXIMin 550 MG TABLET PO SCH ×2 (09:55→20:58)
[2021-06-29] MEDS: PANTOprazole 40 MG TAB PO SCH (09:55)
[2021-06-29] MEDS: hydrALAZINE 10 MG TAB PO SCH ×3 (09:55→20:58)
[2021-06-29] MEDS: ONDANSETRON INJ 2 MG/ML 2 ML VIAL IV PRN ×3 (11:08→22:37)
[2021-06-29] MEDS: LACTULOSE SYRUP 20 GM/30 ML UDC PO SCH ×3 (11:12→22:37)
--- NOTE | 2021-06-29 11:49 | Consultation Report ---
HEMATOLOGY CONSULTATION REASON FOR CONSULTATION: Pancytopenia. HISTORY OF PRESENT ILLNESS: Ms. 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 She presented to the emergency room on 06/27/2021 with complaints of nausea, vomiting, and progressively worsening fatigue. Labs obtained on admission were significant for chronic pancytopenia with slightly worsening anemia and hemoglobin of 7.3 which declined to 6.4 on admission for which she was transfused with 2 units of PRBC. KUB performed while in the ED to evaluate persistent nausea and vomiting was concerning for early/partial SBO versus ileus for which a CT abdomen and pelvis has been ordered. The patient follows with my colleague, Dr. Lee, for chronic pancytopenia, most likely due to chronic liver disease with splenomegaly. During her most recent visit with Dr. Lee, plan was for her to have a bone marrow biopsy in August next year . In the past, the patient had been evaluated by hematology at [facility] for polyclonal gammopathy and pancytopenia for which she had bone marrow biopsies in 2013, 2015, which were overall unrevealing and not suggestive of underlying hematologic malignancy. The patient also had lymph node biopsy in the past, which was also negative. PAST MEDICAL HISTORY: 1. 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. 2. Congestive heart failure. 3. CKD stage III. 4. Diabetes mellitus type 2. 5. History of esophageal varices, duodenal and gastric ulcer. 6. Hyperlipidemia. 7. Hypertension. PAST SURGICAL HISTORY: 1. Hemiarthroplasty of right shoulder. 2. History of right rotator cuff repair. 3. History of revision of left total shoulder arthroplasty. 4. Status post open reduction internal fixation (ORIF) of right shoulder. HOME MEDICATIONS: 1. Carvedilol 12.5 mg tablet b.i.d. 2. Rifaximin 550 mg p.o. b.i.d. 3. Lasix 40 mg p.o. daily. 4. Pantoprazole 40 mg p.o. daily. 5. Ferrous sulfate 325 mg p.o. every other day. 6. Hydralazine 20 mg p.o. b.i.d. 7. Folic acid 1 mg p.o. b.i.d. 8. Hydroxyzine 25 mg p.o. t.i.d. p.r.n. 9. Insulin sliding scale. ALLERGIES: SULFA DRUGS, AMLODIPINE. SOCIAL HISTORY: Quit smoking about 30 years ago. Prior to this, smoked 1 pack a day for about 15 years. Denies alcohol and illicit drug use. FAMILY HISTORY: Noncontributory. REVIEW OF SYSTEMS: All systems reviewed and were all unremarkable except as noted in the HPI. PHYSICAL EXAMINATION: CONSTITUTIONAL: Chronically ill looking lady, in no obvious distress. EYES: Anicteric. ENMT: Oral mucosa normal with no obvious lesions. RESPIRATORY: Normal respiratory efforts and clear to auscultation. CARDIOVASCULAR: Regular rate and rhythm. No murmurs or rubs appreciated. ABDOMEN: Normal bowel sounds. Abdomen is mildly distended, soft, and nontender. EXTREMITIES: Mild peripheral edema bilaterally. LYMPHATIC: No palpable cervical or axillary lymphadenopathy. LABORATORY STUDIES: CBC from 06/28/2021 significant for white cell count of 2.2, hemoglobin of 6.4 with hematocrit of 19.7, MCV of 85.7, platelet count 32,000. Labs from 06/29/2021 significant for white cell count of 2.75, hemoglobin of 9.2 (after 2 units of transfusion), hematocrit of 28.2 with platelet count of 29,000. CMP: Significant for a sodium of 143, potassium 3.4, chloride 112, BUN 39, with creatinine of 2.69. RADIOGRAPHIC DATA: KUB obtained on 06/27/2021 significant for gas dilated loop of bowel in the mid abdomen, likely small bowel. This may represent an early/partial small-bowel obstruction versus ileus. IMPRESSION/PLAN: 1. Chronic pancytopenia. 2. 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. 3. Anemia of chronic disease/renal disease. 4. Polyclonal gammopathy Her pancytopenia is chronic and most likely multifactorial due to underlying liver disease and splenomegaly with sequestration. Anemia is likely multifactorial due to liver disease as well as CKD. Also need to consider possible GI bleed given history of varices. Would recommend continued supportive care with PRBC/Platelet transfusions as needed. May consider giving her erythropoietin if her hemoglobin remains persistently less than 10. She should follow up with Dr Lee as scheduled in August, at which time a bone marrow biopsy is planned. I have nothing else to add from a hematology standpoint. Thank you for taking good care of this pleasant patient. Please feel free to call if you have any further questions. Job ID: [id number] DARREN
[2021-06-29 12:20] LABS: Hematocrit (blood only) 27.6 % (37-47); Mean Corpuscular Hemoglobin 28.5 pg (25-34); Mean Corpuscular Hgb Conc 32.6 g/dL (32-36); Mean Corpuscular Volume 87.3 fL (80-100); Nucleated RBC # (auto) 0.03 K/uL (0-0); Nucleated RBC % (auto) 0.9 %; Platelet Count 36 K/uL (130-400); RDW Coefficient of Variation 15.1 % (11.5-14.5); RDW Standard Deviation 48.7 fL (36.4-46.3); Red Blood Count 3.16 M/uL (4.2-5.4); White Blood Count 3.04 K/uL (4.8-10.8)
[2021-06-29 13:05] LABS: Basophils # (auto) 0.02 K/uL (0-0.2); Basophils % (auto) 0.7 %; Eosinophils # (auto) 0.05 K/uL (0-0.5); Eosinophils % (auto) 1.6 %; Immature Granulocytes # (auto) 0.02 K/uL (0.00-0.02); Immature Granulocytes % (auto) 0.7 %; Lymphocytes # (auto) 0.23 K/uL (1.2-3.4); Lymphocytes % (auto) 7.6 %; Monocytes # (auto) 0.18 K/uL (0.11-0.59); Monocytes % (auto) 5.9 %; Neutrophils # (auto) 2.54 K/uL (1.4-6.5); Neutrophils % (auto) 83.5 %
[2021-06-29] MEDS: rOPINIRole HCL 1 MG TABLET PO SCH ×2 (13:26→20:58)
[2021-06-29] MEDS: cefTRIAXone SODIUM 1,000 MG in DEXTROSE 5% 50 ML IV SCH (15:59)
--- NOTE | 2021-06-29 19:40 | CT Scan Report ---
CT abd pelvis wo con CLINICAL HISTORY: Abdominal pain. Evaluate for small bowel obstruction. COMPARISON STUDY: CT from 01/30/2021 and standard radiographs from 06/27/2021 CT DOSE: 567.92 mGy.cm TECHNIQUE: Standard CT of the Abdomen and Pelvis was performed without IV contrast. The patient did not receive oral contrast. A dose lowering technique was utilized adhering to the principles of SOM Ramirez. FINDINGS: Lung base: There are small bilateral pleural effusions, left greater than right with left basilar at electasis. Heart is mildly enlarged with mitral annular calcification. Abdominal cavity: There is no evidence for abdominal mass, adenopathy or ascites. However, there is e xtensive varices at the gastric fundus and extending into the splenic hilum. There is a ventral abdominal wall hernia with mesenteric fat extending into the subcutaneous fat of t he anterior abdominal wall. There is no evidence for bowel loop herniation. It measures at least 4.8 x 2.8 cm. Liver: The liver is again heterogeneous attenuation with a nodular contour characteristic of cirrhosi s. There is no gross hepatic mass on this limited noncontrast study.. Spleen: The spleen is homogeneous in attenuation on these limited noncontrast images. There is again moderate splenomegaly. Pancreas: The pancreas is homogeneous in attenuation on these limited noncontrast images. Gall Bladder: The gallbladder is again distended with cholelithiasis. There is no CT evidence for acu te cholecystitis. Adrenal glands: The adrenal glands are normal in size and attenuation on these limited noncontrast im ages. Kidneys: The kidneys are homogeneous in attenuation on these limited noncontrast images. There is a 2 mm nonobstructing right renal calculus and 2, 2 and 4 mm nonobstructing left renal calculi. There is no evidence for hydronephrosis bilaterally. There is no gross renal mass on these limited noncontras t images. Bowel: There is a small sliding-type hiatal hernia. The bowel loops are normally placed within the ab domen and pelvis without evidence for dilatation or obstruction. There is no evidence for mass lesion . There are no inflammatory changes present. There is no evidence for free air. There is a normal rashad endix in the right lower quadrant. Bladder: There is no evidence for focal bladder wall thickening, calculus or diverticulum. : There is no evidence for pelvic mass or adenopathy. Uterus appears enlarged and heterogeneous att enuation suggesting a fibroid uterus. Vasculature: There is no evidence for focal aneurysmal dilatation of the abdominal aorta. Atheroscler otic calcification is present. Degenerative changes are seen within the lower lumbar spine. Osseous structures: There is no acute osseous pathology. IMPRESSION: 1. No evidence for bowel loop dilatation or obstruction. 2. There is again cirrhosis of the liver with splenomegaly and marked gastric fundal and splenic vari nancy. 3. Otherwise, no acute intra-abdominal or pelvic abnormality on these limited noncontrast images. 4. Nonacute findings are delineated above. ACT 112: Negative or not required by law. Electronically signed by: Shree Ziegler M.D. 06/29/2021 7:39 PM
[2021-06-29] MEDS: INSULIN GLARGINE SOLOSTAR 100 UNITS/ML 3 ML PEN SC SCH (21:00)
[2021-06-30] MEDS: LACTULOSE SYRUP 20 GM/30 ML UDC PO SCH ×2 (07:50→14:14)
[2021-06-30] MEDS: hydrALAZINE 10 MG TAB PO SCH ×2 (07:50→14:14)
[2021-06-30] MEDS: PANTOprazole 40 MG TAB PO SCH (07:50)
[2021-06-30] MEDS: SODIUM BICARBONATE 650 MG TAB PO SCH (07:50)
[2021-06-30] MEDS: rifAXIMin 550 MG TABLET PO SCH (07:50)
[2021-06-30] MEDS: carvediloL 12.5 MG TAB PO SCH (07:50)
[2021-06-30] MEDS: ONDANSETRON INJ 2 MG/ML 2 ML VIAL IV PRN (07:51)
[2021-06-30 07:58] LABS: Hemoglobin 8.9 g/dL (12.0-16.0); Mean Corpuscular Hemoglobin 28.8 pg (25-34); Mean Corpuscular Volume 87.4 fL (80-100); Platelet Count 23 K/uL (130-400); RDW Coefficient of Variation 15.2 % (11.5-14.5); RDW Standard Deviation 49.2 fL (36.4-46.3); Red Blood Count 3.09 M/uL (4.2-5.4); White Blood Count 2.34 K/uL (4.8-10.8)
[2021-06-30 07:59] LABS: Basophils # (auto) 0.01 K/uL (0-0.2); Basophils % (auto) 0.4 %; Eosinophils # (auto) 0.06 K/uL (0-0.5); Eosinophils % (auto) 2.6 %; Lymphocytes # (auto) 0.49 K/uL (1.2-3.4); Lymphocytes % (auto) 20.9 %; Monocytes # (auto) 0.21 K/uL (0.11-0.59); Neutrophils # (auto) 1.57 K/uL (1.4-6.5); Neutrophils % (auto) 67.1 %; Platelet Estimate SIGNIFIC DECREASED (Normal)
[2021-06-30 08:24] LABS: Reticulocytes # 0.09 10^6/uL (0.02-0.10)
[2021-06-30 08:25] LABS: BUN Creatinine Ratio 12.2 (10-20); Calcium 8.3 mg/dl (8.5-10.1); Creatinine Clr Calc Pharmacy 17.5 ml/min; Est GFR (Non-African American) 16.4 ml/min; Potassium 3.4 mmol/L (3.5-5.1)
[2021-06-30 08:28] LABS: Albumin Globulin Ratio 0.4 (0.9-2); Bilirubin,Total 1.3 mg/dl (0.2-1); Globulin 4.5 gm/dl (2.5-4.0); Total Protein 6.5 gm/dl (6.4-8.2)
[2021-06-30] MEDS: INSULIN ASPART 100 UNITS/ML 3 ML PEN SC SCH ×3 (09:00→16:49)
[2021-06-30] MEDS ORDERED: POTASSIUM CHLORIDE CRTAB 20 MEQ TABCR PO STA (14:05)
[2021-06-30] MEDS: rOPINIRole HCL 1 MG TABLET PO SCH (14:14)
[2021-06-30] MEDS: cefTRIAXone SODIUM 1,000 MG in DEXTROSE 5% 50 ML IV SCH (14:15)
--- NOTE | 2021-06-30 17:54 | Discharge Summary ---
Date of Service June 30, 2021 Admission HPI Per Admitting Provider Angela Sherman is a 66 year old female who presents to the ER with nausea vomiting and generalized fatigue. She reports longstanding intermittent nausea and vomiting and was previously hospitalized here in January for the same with essentially normal workup at that time although there was concern about cholecystitis on imaging, subsequent HIDA scan was negative. Symptoms on this occasion have been present for the last 2 days. She reports difficulty taking her lactulose when she has nausea and vomiting and has gone down to taking this every other day although reports her having regular bowel movements doing this. Last bowel movement was earlier today and normal for her. No melena or bright red blood in stool. No hematemesis. She does report change in color and smell of her urine for the last 2 days in addition to suprapubic pain. No back pain, fever or chills. No chest pain, shortness of breath or palpitations. She feels generally weak, not one sided, no change in sensation, no facial droop, change in speech, vision or hearing. In the ER Cr was noted to be slightly elevated (similar to last admission), she remains pancytopenic (similar to 1 month previously), UA was grossly positive for infection, ammonia levels 82 (her range is usually between 50-185). She was referred to medicine for admission and ongoing management of hyperammonemia, acute on chronic renal insufficiency, hyperglycemia and UTI. Admission Exam Per Admitting Provider Constitutional: WD/WN, vitals as above + frail appearing Eyes: PERRL, conjunctivae normal, anicteric sclerae ENMT: external ear and nose normal, oropharynx normal Neck: trachea midline, no thyromegaly Respiratory: normal respiratory effort, lungs clear to auscultation Cardiovascular: RRR, no murmur, no edema Gastrointestinal (Abdomen): normal bowel sounds, soft, nontender, no hepatosplenomegaly Musculoskeletal: no cyanosis or clubbing, extremities motor strength 5/5 Skin: no rashes, warm and dry Neurologic: moves all extremities and awake; no focal motor deficits (no lateralizing deficit) and not confused Psychiatric: A+Ox3, euthymic affect Principal Diagnosis Pancytopenia with anemia requiring transfusion Discharge Exam General: A&Ox3. NAD. Cooperative. Appears fatigued, but nontoxic HEENT: Atraumatic, normocephalic. Pupils equal and reactive to light. Visual acuity and hearing grossly intact. Pulm: CTAB A&P. -wheezes, -rales, -rhonchi. Symmetrical chest rise. No increase work of breathing. No respiratory distress. Cardiac: RRR, -mrg. Radial pulses intact and symmetrical. Abdominal: Nontender, nondistended, soft. BS present. Ext: Warm, dry, moving all extremities equally. Discharge Data Allergies Allergy/AdvReac Type Severity Reaction Status Date / Time sulfamethoxazole Allergy Intermediate RASH Verified 06/27/21 14:21 trimethoprim Allergy Intermediate RASH Verified 06/27/21 14:21 Sulfa (Sulfonamide Allergy Rash Unverified 06/27/21 14:21 Antibiotics) amlodipine AdvReac Intermediate confusion Verified 06/27/21 14:21 adhesive tape AdvReac Mild ITCHING Verified 06/27/21 14:21 Consultations 06/27/21 14:59 ED Decision to Admit Stat 06/29/21 07:47 Consult Hematology Routine Ordered Studies 06/29/21 16:33 CT abd pelvis wo con Urgent Hospital Course (1) Anemia: Angela Sherman is a 66 year old female who presents to the ER with nausea vomiting and generalized fatigue. She reports longstanding intermittent nausea and vomiting and was previously hospitalized here in January for the same with essentially normal workup at that time although there was concern about cholecystitis on imaging, subsequent HIDA scan was negative. Patient has history of chronic pancytopenia with downtrending hemoglobin and moderate to severe thrombocytopenia. [facility], is pending a bone marrow biopsy with Dr. Lee next month. Care summary, and discharge notes: Patient with anemia, hyperammonemia, and UTI treated as below. Patient required blood transfusion and has gradually downtrending hemoglobin levels. While she is chronically ill, she felt well and continued to be stable and felt at her normal baseline level of health on day of discharge. She continued to have downtrending hemoglobin, a slightly elevated ammonia, and downtrending but not yet baseline creatinine. Her occult blood was negative. This is discussed with her and her . Given that she is at her normal chronically ill baseline, they preferred to return home with close supervision and twice weekly blood checks. She is hemodynamically stable, and this was reasonable at discharge. Recommend patient have a repeat BMP and CBC twice within 1 week, and at least weekly thereafter. Recommend she have outpatient blood transfusions with a threshold of 7.5, and referral to the emergency department for any rapid hemoglobin drops or hemoglobin less than 7. Ongoing work-up with hematology/oncology. She was also noted to have encephalopathy with elevated ammonia, this rapidly improved once she began having bowel movements. She is continued on rifaximin, and discussed that lactulose is critically important to maintaining her mental status. Discussed that she should also drink plenty of water, and that if she does not have a bowel movement for more than a 1-2 days, or is unable to tolerate her lactulose she should contact her primary care prov ider for additional recommendations early on, or present to the emergency department if very concerned. To do as outpatient: 1. CBC in 2 days, and 5 days to follow platelets, hemoglobin. BMP in 2 days, 5 days to follow creatinine 2. Outpatient blood transfusions as needed, referral to ED if rapid drop or critically low 3. Complete 2 additional days of antibiotics for UTI with cefdinir. 4. Follow-up of potassium on blood work above, resume Lasix indicated based on creatinine and volume status 5. Follow-up with heme-onc for bone marrow biopsy as scheduled Anemia with pancytopenia Chronic, patient followed by oncology as outpatient Multifactorial, anemia of chronic disease, splenomegaly sequestration. GI bleed less likely as Hemoccult was negative following multiple bowel movements. No Acute bleeding on exam Last EGD 02/2021: Performed by Dr. Llanes. Small (less than 5 mm) varices found in lower third of esophagus without stigmata. Severe portal hypertensive gastropathy. Varices with no bleeding in the cardia, no stigmata of recent bleeding. Normal duodenum. Colonoscopy 02/17/[address] Llanes: Copious stool impeding exam, poor prep, repeat was deferred at that time due to comorbidity Hemoglobin appears to run chronically between 7.09.0, followed as outpatient for iron infusions and blood transfusions Hemoglobin on admission 7.3, 6.4 morning of 06/28 s/p appropriate rise with 2 units pRBC Slow chronic downtrend MCV 85 Hematology oncology consulted, no additional change in management. If persistently below 10 may consider EPO injection. This was deferred at time of admission. 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 Has received 2 bone marrow biopsies previously which were negative for multiple myeloma ? Low-grade lymphoproliferative disorder Axillary lymph node biopsy 2019 showed lymphoid hyperplasia without evidence of lymphoma or carcinoma (3) Nausea and vomiting: Prior EGD as above Clinically improved CXR suggestive of early SBO, but patient with BM day of admission Follow clinically, if increased nausea/vomiting or worsening abdominal symptoms make n.p.o., add IV fluids, obtain KUB (4) UTI (urinary tract infection): UA infected appearing Rocephin 1 g IV empiric UC positive for Klebsiella oxytocin. Resistant to cefazolin/Unasyn. Otherwise pansensitive. Continue Rocephin for 5-day total course, Cipro deferred due to QT interval, discharged to complete 2 additional days of cefdinir. (5) DM type 2 (diabetes mellitus, type 2): HbA1C 6.0 in January. Repeat with AM labs. Pharmacy consulted for glycemic management Insulin glargine 13 units scheduled at bedtime Insulin SSI, goal 1001 40 (6) Hyperammonemia: Initially patient had difficulty tolerating lactulose p.o., this improved by time of discharge. Continue rifaximin Continue oral lactulose titrated bowel movements. Precautions if patient is not having bowel movements or is not tolerating to contact PCP discussed as noted above. Mental status was at baseline at time of discharge. (7) Hyperlipidemia: (8) 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: Liver cirrhosis Follows with Dr. Llamas See EGD above, patient with prior nonbleeding small varices Has not been a candidate for liver transplant -Lactulose as above -Continue rifaximin -Limit acetaminophen to 2g (9) Hypertension: -Continue carvedilol (10) History of GI bleed: See above (11) Fatigue: Suspect due to anemia as above and chronic multiple medical conditions/comorbidities Treatment as above (12) Elevated serum creatinine: -CKD stage IV -Cr 2.78 on admission, up from her baseline of around 2.6 -Creatinine elevated to 2.94, downtrending day of discharge not yet normalized Defer additional Lasix at this time -Continue sodium bicarbonate 1300mg PO BID Repeat outpatient blood work as noted above VTE Prophylaxis - deferred due to thrombocytopenia Diet - clear liquids, T2DM Disposition - admit to med/surg Total Time Total Time Spent Total Time Spent (In Minutes): Total time spent day of discharge including discussion with patient, direct patient care, documentation, review of labs and images, and coordination of care 70 minutes Discharge Plan Discharge Items Patient Disposition: Home - Self-Care Reason For Visit: UTI, NAUSEA AND VOMITING Discharge Diagnosis: Pancytopenia UTI Hyperammonemia Activity: Per Instructions section Non-emergency contact: Primary Care Provider and Oncologist Call non-emergency contact if: you have any medication questions, your symptoms worsen, your pain is not controlled and your pain is worsening Follow-up/Referrals: Rocío Alonso DO [Primary Care Provider] - (Please call your primary care office and make a hospital follow up appointment.) Diet: Carb Consistent or DM2 Addtl Attending Provider Instructions: ThisYou are seen in the hospital for low blood counts and confusion. Your low blood counts included white blood cells, red blood cells, and platelets. While your blood counts down trended and you did require transfusion of blood and platelets during admission, your blood levels noni appropriately and continue to steadily trickle down a low rate. This is most likely due to poor bone marrow production and normal turnover of red blood cells. You had a large bowel movement during admission this was tested for blood and did not show any evidence of blood or GI bleeding. The risks and benefits of ongoing hos pitalization were discussed with you. Although you are chronically at risk for bleeding, and could develop a GI bleed or other bleeding at any time, your condition at time of assessment was stable. There were/benefits of monitoring in the hospital versus outpatient follow-up with regular transfusions were discussed, and unsure decision making has been recommended for you to return home with regular blood work as below. Please continue to take lactulose. Lactulose will promote bowel movements and help clear ammonia, if you are not having bowel movements are not tolerating the lactulose ammonia can quickly build up and cause confusion, mental status changes, and other dangerous symptoms. If you develop shaking, confusion, intolerance to lactulose, or not having bowel movements for 2 days please contact your primary care physician for recommendations or return to the ER for additional recommendations. You have been prescribed 2 additional days of an antibiotic to complete a 5-day course for urinary tract infection. Please take cefdinir 300 mg twice daily for 2 days. Your kidney numbers were elevated during admission, these were decreasing but not yet at your normal baseline at time of discharge. This discussed with you, please have repeat blood work done as noted below to follow these levels. Your Lasix has been temporarily held. Please discuss with your primary care ph ysician whether you should resume Lasix at your follow-up appointment and based on the first repeat blood work as noted below. You have been prescribed a potassium supplement as with bowel movements and Lasix can both cause low potassium. Your outpatient provider will recommend whether this should be continued or adjusted based on your follow-up blood work. Please take potassium 10 M EQ's daily at this time. You have a follow-up scheduled with hematology oncology as noted above. You also have a bone marrow biopsy scheduled for this winter, please keep your appointment with Dr. Lee and follow-up with their office for further recommendations. An appointment is being scheduled for you with your primary care provider as noted above. You should be seen within 5 days. You should have a complete blood count (CBC), ammonia level, and (BMP) basic metabolic panel performed twice this coming week, and at least weekly thereafter. If your blood levels drop below 7.5 or drop rapidly recommend receiving a unit of blood as outpatient transfusion with regular rechecks. If your blood levels rapidly dropped or below 7, recommend returning to the emergency department for additional evaluati on and treatment. If you develop any new or worsening symptoms including fever, chills, sweats, chest pain, chest pressure, difficulty breathing, uncontrolled nausea/vomiting, rash, wheezing, passing out or nearly passing out, bleeding, black/bloody bowel movements, or other new or concerning symptoms please call your primary care physician, or call 911 for re-evaluation in the emergency department if you are very concerned. Pending Studies at Discharge: Yes Stand-Alone Forms: [employer], Smoking Cessation Medications and DC Order Prescriptions: New potassium chloride 10 mEq capsule, extended release 10 meq PO DAILY Qty: 30 RF: 0 cefdinir 300 mg capsule 300 mg PO BID 2 Days Qty: 4 RF: 0 Continued carvedilol 12.5 mg tablet 12.5 mg PO BID Qty: 180 RF: 1 Xifaxan 550 mg tablet 550 mg PO BID Qty: 180 RF: 1 (DME) OneTouch Ultra Blue Test Strip Strip See Rx Instructions .ROUTE .MEDSUPPLY Qty: 100 RF: 1 folic acid 1 mg tablet 1 mg PO BID Qty: 180 RF: 1 sodium bicarbonate 650 mg tablet 1,300 mg PO BID Qty: 180 RF: 1 ropinirole 2 mg tablet See Rx Instructions .ROUTE .COMPLEX Qty: 135 RF: 1 mometasone 0.1 % solution See Rx Instructions topical DAILY PRN (Reason: rash) Qty: 30 RF: 1 (DME) Dexcom G6 Transmitter Device See Rx Instructions .ROUTE .MEDSUPPLY Qty: 1 RF: 0 (DME) Dexcom G6 Sensor Device See Rx Instructions .ROUTE .MEDSUPPLY Qty: 3 RF: 0 lactulose 20 gram/30 mL solution 45 ml PO BID 30 Days Qty: 2700 RF: 0 clotrimazole-betamethasone 1-0.05 % cream 1 applic topical BID PRN (Reason: Skin Irritation) Qty: 45 RF: 0 ferrous sulfate 325 mg (65 mg iron) tablet,delayed release (DR/EC) 325 mg PO Q OTHER DAY Qty: 30 RF: 5 insulin aspart U-100 [Novolog Flexpen U-100 Insulin] 100 unit/mL (3 mL) insulin pen See Rx Instructions SQ TID Qty: 15 RF: 3 hydralazine 10 mg tablet 20 mg PO BID Qty: 120 RF: 1 Basaglar KwikPen U-100 Insulin 100 unit/mL (3 mL) insulin pen 15 unit subcut HS Qty: 1 RF: 5 hydroxyzine HCl 25 mg tablet 25 mg PO TID PRN (Reason: Itching) RF: 0 teriparatide [Forteo] 20 mcg/dose (620mcg/2.48mL) pen injector 20 mcg SUBCUT QAM RF: 0 pantoprazole 40 mg tablet,delayed release (DR/EC) 40 mg PO QAM RF: 0 Discontinued furosemide 20 mg tablet 40 mg PO QAM RF: 0 Discharge Orders: Discharge Order (Routine); Ordered 06/30/21 Ordered By: Marco Borrego Admission Data Admit Date/Time: 06/29/21 13:35 Attending Provider: Marco Borrego Admit Provider: Willis Flores Primary Care Provider: Rocío Alonso Other Providers: [facility] ; Willis Flores ; Timur Lee V. Other Interventions: Discharge Summary Assessment (RN) Last Done: 06/30/21 16:20 Coding Level of Care Code D/C DAY MANAGEMENT >30 MINS Diagnoses Anemia D64.9 Pancytopenia D61.818 Nausea and vomiting R11.2 UTI (urinary tract infection) N39.0 DM type 2 (diabetes mellitus, type 2) E11.65 Diabetes mellitus complication status: with hyperglycemia Diabetes mellitus residential insulin use: without superintendent container terminal use Hyperammonemia E72.20 Hyperlipidemia E78.5 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 K75.81; K74.60 Hypertension I10 Hypertension type: unspecified History of GI bleed Z87.19 Fatigue R53.83 Elevated serum creatinine R79.89
== END 2021-06-30 17:50 | disposition home or self-care (01) | DRG 809 ==
LOC: ED 11:28 → 3N 11:28 → SUATTDRO 16:10 → 3N 17:38 → 2W 06-29 16:58

== ENCOUNTER 2021-07-10 09:42 | Observation (INO) ==
--- NOTE | 2021-07-10 10:39 | XRay Report ---
XR chest 2V PA/lateral CLINICAL HISTORY: Shortness of breath. COMPARISON STUDY: Chest radiograph June 27, 2021. FINDINGS: Postoperative findings within the right shoulder are partially imaged. There is no pneumoth orax. Small bilateral pleural effusions are noted. Cardiomegaly is noted. There is pulmonary vascular congestion without evidence for pulmonary edema. No consolidation is identified. IMPRESSION: 1. Cardiomegaly with pulmonary vascular congestion. 2. Small bilateral pleural effusions. ACT 112: Negative or not required by law. Electronically signed by: Henry Rinaldi M.D. 07/10/2021 10:38 AM
[2021-07-10 11:25] LABS: Hematocrit (blood only) 27.4 % (37-47); Hemoglobin 8.7 g/dL (12.0-16.0); Mean Corpuscular Hemoglobin 28.2 pg (25-34); Mean Corpuscular Hgb Conc 31.8 g/dL (32-36); Mean Corpuscular Volume 88.7 fL (80-100); RDW Coefficient of Variation 16.1 % (11.5-14.5); RDW Standard Deviation 51.4 fL (36.4-46.3); Red Blood Count 3.09 M/uL (4.2-5.4); White Blood Count 2.74 K/uL (4.8-10.8)
[2021-07-10] MEDS ORDERED: hydrALAZINE HCL 20 MG/ML VIAL IV STA (11:25)
[2021-07-10] MEDS ORDERED: FUROSEMIDE 40 MG/4 ML VIAL IV STA (11:25)
[2021-07-10 11:26] LABS: Mean Platelet Volume 11.1 fL (7.4-10.4); Platelet Count 44 K/uL (130-400)
[2021-07-10 11:35] LABS: INR 1.3 (0.9-1.1); Partial Thromboplastin Time 27.2 Seconds (21.0-31.0); Prothrombin Time 13.2 Seconds (9.0-12.0)
--- NOTE | 2021-07-10 11:39 | Emergency Department Note ---
Impression & Plan SOB (shortness of breath), Edema, Cellulitis, CHF (congestive heart failure) ED Provider Note NAME: GARDENIA PICHARDO AGE: 66 SEX: F : 1955 ARRIVES VIA: Walk-In INFORMANT: [Patient] ED PROVIDER(S): [Alexander Blanco MD] CHIEF COMPLAINT: Edema HISTORY OF PRESENT ILLNESS: The patient is a 66-year-old female who was discharged from our hospital recently. She was in for fluid overload. She is not using diuretics at home. The patient states that in the last 4 or so days, she has had a rash on her legs and swelling of the legs. There is some moderate leg pain. She has noticed some shortness of breath. There has been no fever, no abdominal pain. No chest pain. She is concerned that she is again fluid overloaded. The patient did not take her medications this morning. REVIEW OF SYSTEMS: See HPI for pertinent positives and negatives. A total of ten systems were reviewed and were otherwise negative. PMHx/PSHx: See Below SOCIAL HISTORY: See Below. PHYSICAL EXAM: GENERAL: Patient is in no acute distress. HEENT: No acute trauma, normocephalic atraumatic, mucous membranes moist, no nasal congestion, no scleral icterus. NECK: No stridor, no adenopathy, no meningismus, trachea is midline. LUNGS: Crackles at both bases, no respiratory distress, no wheezing. HEART: 2/6 systolic murmur, regular rate and rhythm. ABDOMEN: Soft, nontender, bowel sounds positive, no hernias, no peritonitis. EXTREMITIES: No cyanosis. Moderate bilateral pedal edema. There is an erythematous, somewhat warm, nonblanching rash to both feet ascending up the leg s past the knees. NEUROLOGIC: Oriented x 3, no acute motor or sensory deficits, no focal weakness. SKIN: No jaundice. The patient does have what appears to be a yeast rash underneath both breasts and to some abdominal skin folds, this is a chronic issue for her. DIFFERENTIAL DIAGNOSIS: Edema, CHF, cardiac dysrhythmia, electrolyte imbalance, anemia, DVT, medication noncompliance, cellulitis, bacteremia, among others. EMERGENCY DEPARTMENT COURSE/PROCEDURES: ECG: Indication was shortness of breath. The ECG shows a normal sinus rhythm with a rate of 67. There is some nonspecific ST change. No ST elevation, no PVCs. The QTc is 492. Continuous Cardiac Monitoring: An order was placed for continuous cardiac monitoring. The monitor shows a rate of 65 with normal sinus rhythm. MEDICAL DECISION MAKING: There is a lower white blood cell count, hemoglobin and platelet count. The patient has a history of pancytopenia. Sed rate is a bit high at 42 although, this has been documented high before. INR slightly elevated at 1.3. Creatinine was high at 2.4, the patient has a history of renal insufficiency. There were some subtle liver enzyme elevations, the elevated liver enzymes have been noted before. BNP is elevated at over 5000, this is consistent with fluid overload an d CHF. The patient appeared to be in a euthyroid state. Lactic acid level was not elevated making severe sepsis less likely. Urinalysis did not show infection. Covid testing was negative. Chest film showed some subtle fluid overload and a small pleural effusion. Bilateral lower extremity ultrasound did not show any evidence for DVT. The patient was given IV hydralazine for her high blood pressure. She was given IV Lasix, 60 mg. She was given IV cefepime as empiric antibiotic coverage. The patient presents hypertensive, short of breath. She had bilateral lower extremity cellulitis on exam. She appeared to have some CHF by work-up. The patient is in need of a hospital stay. There are multiple issues here which require further attention/hospitalization. I did speak with the patient and case briefer. The on-call hospitalist was consulted. 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 Lower GI bleed Nausea and vomiting after administration of anesthetic agent On home oxygen therapy 2L prn for SOB Osteoarthritis Osteoporosis Pancytopenia Pleural effusion Psoriatic arthritis Right shoulder pain Risk for falls Surgical History H/O esophagogastroduodenoscopy History of anesthesia reaction History of bilateral cataract extraction History of bladder surgery History of colonoscopy History of esophagogastroduodenoscopy (EGD) History of hemiarthroplasty of right shoulder History of repair of right rotator cuff History of revision of total shoulder arthroplasty (12/29/18) History of shoulder surgery (~11/2019) History of thoracentesis (~10/05/19) History of tooth extraction S/P ORIF (open reduction internal fixation) fracture S/P shoulder surgery (11/18/19) Family History Grandmother (Paternal) Family history of diabetes mellitus Father COPD (chronic obstructive pulmonary disease) Mother Hypertension Family/Other Cancer Sister Ovarian cancer Other No family history of adverse response to anesthesia Denies family history of Prostate cancer Myocardial infarction Breast cancer Colorectal cancer Social History Smoking Status: Never smoker Tobacco Type: Cigarettes Age Started Using Tobacco: 17; Age Quit Using Tobacco: 31; packs per day: 1; Second Hand Exposure: No; Hx Alcohol Use: No Hx Substance Use: No Preferred Language: [place] Communication Ability: Effective Visual Impairment: Limited Hearing Ability: Hard of Hearing 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 Required: No Beliefs That Will Affect Care: None marital status: Current Living Situation: Spouse Current Living Situation Comment: Lives with and son current occupational status: retired How many Children do You have: 2 Feels Safe at Home: Yes Childhood Exposure to Second-Hand Smoke: Yes Diet Comment: regular during the past year weight has: remained stable Dental Care, Regularly: No Physical Activity Frequency: Does not Exercise Seatbelt Use: always Sunscreen Use: Yes Do you think of yourself as: straight/heterosexual Gender Identity: Female Assistive Devices: Cane and Walker Allergies Allergies Allergy/AdvReac Type Severity Reaction Status Date / Time sulfamethoxazole Allergy Intermediate RASH Verified 07/10/21 14:14 trimethoprim Allergy Intermediate RASH Verified 07/10/21 14:14 Sulfa (Sulfonamide Allergy Rash Unverified 07/10/21 14:14 Antibiotics) amlodipine AdvReac Intermediate confusion Verified 07/10/21 14:14 adhesive tape AdvReac Mild ITCHING Verified 07/10/21 14:14 Home Meds Home Medications Medication Instructions Recorded Confirmed blood-glucose sensor (Dexcom G6 #3 ea 12/01/20 07/04/21 Sensor) blood-glucose transmitter (Dexcom #1 ea 12/01/20 07/04/21 G6 Transmitter) pantoprazole 40 mg tablet,delayed 40 mg PO QAM 02/14/21 07/10/21 release hydroxyzine HCl 25 mg tablet 25 mg PO TID PRN 06/27/21 07/10/21 insulin glargine 100 unit/mL (3 18 unit SUBCUT HS 07/10/21 07/10/21 mL) subcutaneous pen (Basaglar KwikPen U-100 Insulin) teriparatide 20 mcg/dose (600 20 mcg SUBCUT DAILY 07/10/21 07/10/21 mcg/2.4 mL) subcutaneous pen injector (Forteo) Previous Rx's Medication Instructions Recorded carvedilol 12.5 mg tablet 12.5 mg PO BID #180 tab 01/19/21 rifaximin 550 mg tablet (Xifaxan) 550 mg PO BID #180 tab 01/19/21 clotrimazole-betamethasone 1 1 applic TOPICAL BID PRN #45 g 02/07/21 %-0.05 % topical cream lactulose 20 gram/30 mL oral 45 ml PO BID 30 Days #2700 ml 02/07/21 solution blood sugar diagnostic (OneTouch #100 ea 02/15/21 Ultra Blue Test Strip) ferrous sulfate 325 mg (65 mg 325 mg PO Q OTHER DAY #30 tab 04/27/21 iron) tablet,delayed release hydralazine 10 mg tablet 20 mg PO BID #120 tab 04/27/21 insulin aspart U-100 100 unit/mL See Rx Instructions SQ TID #15 ml 04/27/21 (3 mL) subcutaneous pen (Novolog Flexpen U-100 Insulin aspart) folic acid 1 mg tablet 1 mg PO BID #180 tab 05/14/21 sodium bicarbonate 650 mg tablet 1,300 mg PO BID #180 tab 06/04/21 ropinirole 2 mg tablet See Rx Instructions .ROUTE 06/15/21 .COMPLEX #135 tab potassium chloride 10 mEq 10 meq PO DAILY #30 cap 06/30/21 capsule,extended release Results & Data (ED) Vital Signs Vital Signs - 24 hr 07/10/21 10:04 07/10/21 11:10 07/10/21 11:13 Temperature 37.3 C Temperature Source Temporal Artery Scan Pulse Rate 64 66 Pulse Rate [Radial] 65 Pulse Rate from SpO2 Sensor 65 Respiratory Rate 20 16 23 Respiratory Effort / Characteristics Non-Labored Spontaneous Respiratory Depth Normal Blood Pressure 187/73 H Blood Pressure [Left Arm] 204/111 H Blood Pressure Mean 111 Blood Pressure Mean [Left Arm] 142 Pulse Oximetry 95 95 95 Oxygen Delivery Method Room Air Room Air Room Air Sepsis Recent Fever Within 48 Hours No Sepsis New/Unexplained Change in Mental Status No Sepsis Action Taken by Nursing No Action Required 07/10/21 11:15 07/10/21 11:30 07/10/21 11:45 Temperature Temperature Source Pulse Rate 82 66 66 Pulse Rate [Radial] Pulse Rate from SpO2 Sensor 68 66 66 Respiratory Rate 24 17 19 Respiratory Effort / Characteristics Respiratory Depth Blood Pressure 226/93 H 209/86 H Blood Pressure [Left Arm] Blood Pressure Mean 137 127 Blood Pressure Mean [Left Arm] Pulse Oximetry 95 94 95 Oxygen Delivery Method Room Air Room Air Room Air Sepsis Recent Fever Within 48 Hours Sepsis New/Unexplained Change in Mental Status Sepsis Action Taken by Nursing 07/10/21 11:50 07/10/21 12:00 07/10/21 12:15 Temperature Temperature Source Pulse Rate 67 66 Pulse Rate [Radial] Pulse Rate from SpO2 Sensor 67 66 Respiratory Rate 18 19 Respiratory Effort / Characteristics Respiratory Depth Blood Pressure 207/96 H 202/88 H 188/84 H Blood Pressure [Left Arm] Blood Pressure Mean 133 126 118 Blood Pressure Mean [Left Arm] Pulse Oximetry 94 95 Oxygen Delivery Method Room Air Room Air Sepsis Recent Fever Within 48 Hours Sepsis New/Unexplained Change in Mental Status Sepsis Action Taken by Nursing 07/10/21 12:30 07/10/21 12:45 07/10/21 13:16 Temperature Temperature Source Pulse Rate 68 68 69 Pulse Rate [Radial] Pulse Rate from SpO2 Sensor 68 68 Respiratory Rate 18 20 27 H Respiratory Effort / Characteristics Respiratory Depth Blood Pressure 200/87 H 172/106 H 177/87 H Blood Pressure [Left Arm] Blood Pressure Mean 124 128 117 Blood Pressure Mean [Left Arm] Pulse Oximetry 94 95 95 Oxygen Delivery Method Room Air Room Air Room Air Sepsis Recent Fever Within 48 Hours Sepsis New/Unexplained Change in Mental Status Sepsis Action Taken by Nursing 07/10/21 13:30 07/10/21 14:00 07/10/21 14:30 Temperature Temperature Source Pulse Rate 68 68 69 Pulse Rate [Radial] Pulse Rate from SpO2 Sensor 68 Respiratory Rate 18 18 22 Respiratory Effort / Characteristics Respiratory Depth Blood Pressure 170/78 H 183/78 H 189/85 H Blood Pressure [Left Arm] Blood Pressure Mean 108 113 119 Blood Pressure Mean [Left Arm] Pulse Oximetry 95 96 95 Oxygen Delivery Method Room Air Room Air Room Air Sepsis Recent Fever Within 48 Hours Sepsis New/Unexplained Change in Mental Status Sepsis Action Taken by Nursing 07/10/21 15:00 Temperature Temperature Source Pulse Rate 67 Pulse Rate [Radial] Pulse Rate from SpO2 Sensor Respiratory Rate 20 Respiratory Effort / Characteristics Respiratory Depth Blood Pressure 210/78 H Blood Pressure [Left Arm] Blood Pressure Mean 122 Blood Pressure Mean [Left Arm] Pulse Oximetry 95 Oxygen Delivery Method Room Air Sepsis Recent Fever Within 48 Hours Sepsis New/Unexplained Change in Mental Status Sepsis Action Taken by Shelter Medications Current Medication List: was personally reviewed by me Laboratory Data Attestation: I reviewed the patient's lab results. Result diagrams: 07/10/21 11:09 07/10/21 11:09 Lab Results 07/10/21 07/10/21 07/10/21 Range/Units 11:09 11:09 11:09 WBC 2.74 L (4.8-10.8) K/uL RBC 3.09 L (4.2-5.4) M/uL Hgb 8.7 L (12.0-16.0) g/dL Hct 27.4 L (37-47) % MCV 88.7 (80-100) fL MCH 28.2 (25-34) pg MCHC 31.8 L (32-36) g/dL RDW Std Deviation 51.4 H (36.4-46.3) fL RDW Coeff of Karina 16.1 H (11.5-14.5) % Plt Count 44 L (130-400) K/uL MPV 11.1 H (7.4-10.4) fL Immature Gran % (Auto) 0.4 % Neut % (Auto) 58.3 % Lymph % (Auto) 25.2 % [place] % (Auto) 9.9 % Eos % (Auto) 5.5 % Baso % (Auto) 0.7 % Neut # (Auto) 1.60 (1.4-6.5) K/uL Lymph # (Auto) 0.69 L (1.2-3.4) K/uL [place] # (Auto) 0.27 (0.11-0.59) K/uL Eos # (Auto) 0.15 (0-0.5) K/uL Baso # (Auto) 0.02 (0-0.2) K/uL Immature Gran # (Auto) 0.01 (0.00-0.02) K/uL ESR (0-30) mm/hr PT 13.2 H (9.0-12.0) Seconds INR 1.3 H (0.9-1.1) APTT 27.2 (21.0-31.0) Seconds PTT Ratio 1.0 Sodium 143 (136-145) mmol/L Potassium 4.2 (3.5-5.1) mmol/L Chloride 114 H (98-107) mmol/L Carbon Dioxide 22 (21-32) mmol/L Anion Gap 7.0 (3-11) BUN 49 H (7-18) mg/dl Creatinine 2.43 H (0.6-1.2) mg/dl Est Cr Clr Drug Dosing Not Reportable Est GFR ( Amer) 23.4 ml/min Est GFR (Non-Af Amer) 20.2 ml/min BUN/Creatinine Ratio 20.0 (10-20) Glucose 108 H (70-99) mg/dl Lactate (0.4-2.0) mmol/L Calcium 8.8 (8.5-10.1) mg/dl Magnesium (1.8-2.4) mg/dl Total Bilirubin 1.7 H (0.2-1) mg/dl AST 41 H (15-37) U/L ALT 27 (12-78) U/L Alkaline Phosphatase 146 H (45-117) U/L Troponin I (0-0.045) ng/ml C-Reactive Protein (0-0.29) mg/dl NT-Pro-B Natriuret Pep (0-900) pg/ml Total Protein 7.4 (6.4-8.2) gm/dl Albumin 2.3 L (3.4-5.0) gm/dl Globulin 5.1 H (2.5-4.0) gm/dl Albumin/Globulin Ratio 0.5 L (0.9-2) TSH (0.300-4.500) uIu/ml Urine Color Urine Appearance (Clear) Urine pH (4.5-7.5) Ur Specific [place] (1.000-1.030) Urine Protein (Negative) Urine Glucose (UA) (Negative) Urine Ketones (Negative) Urine Blood (Negative) Urine Nitrite (Negative) Urine Bilirubin (Negative) Urine Urobilinogen (Negative) Ur Leukocyte Esterase (Negative) Urine WBC (Auto) (0-5) /hpf Urine RBC (Auto) (0-4) /hpf U Hyaline Cast (Auto) (0-5) /lpf U Epithel Cells (Auto) (0-5) /lpf Urine Bacteria (Auto) (Negative) SARS-CoV-2, RNA, NAAT (NEGATIVE) 07/10/21 07/10/21 07/10/21 Range/Units 11:09 11:49 11:56 WBC (4.8-10.8) K/uL RBC (4.2-5.4) M/uL Hgb (12.0-16.0) g/dL Hct (37-47) % MCV (80-100) fL MCH (25-34) pg MCHC (32-36) g/dL RDW Std Deviation (36.4-46.3) fL RDW Coeff of Karina (11.5-14.5) % Plt Count (130-400) K/uL MPV (7.4-10.4) fL Immature Gran % (Auto) % Neut % (Auto) % Lymph % (Auto) % [place] % (Auto) % Eos % (Auto) % Baso % (Auto) % Neut # (Auto) (1.4-6.5) K/uL Lymph # (Auto) (1.2-3.4) K/uL [place] # (Auto) (0.11-0.59) K/uL Eos # (Auto) (0-0.5) K/uL Baso # (Auto) (0-0.2) K/uL Immature Gran # (Auto) (0.00-0.02) K/uL ESR 42 H (0-30) mm/hr PT (9.0-12.0) Seconds INR (0.9-1.1) APTT (21.0-31.0) Seconds PTT Ratio Sodium (136-145) mmol/L Potassium (3.5-5.1) mmol/L Chloride (98-107) mmol/L Carbon Dioxide (21-32) mmol/L Anion Gap (3-11) BUN (7-18) mg/dl Creatinine (0.6-1.2) mg/dl Est Cr Clr Drug Dosing Est GFR ( Amer) ml/min Est GFR (Non-Af Amer) ml/min BUN/Creatinine Ratio (10-20) Glucose (70-99) mg/dl Lactate 1.3 (0.4-2.0) mmol/L Calcium (8.5-10.1) mg/dl Magnesium (1.8-2.4) mg/dl Total Bilirubin (0.2-1) mg/dl AST (15-37) U/L ALT (12-78) U/L Alkaline Phosphatase (45-117) U/L Troponin I (0-0.045) ng/ml C-Reactive Protein (0-0.29) mg/dl NT-Pro-B Natriuret Pep (0-900) pg/ml Total Protein (6.4-8.2) gm/dl Albumin (3.4-5.0) gm/dl Globulin (2.5-4.0) gm/dl Albumin/Globulin Ratio (0.9-2) TSH (0.300-4.500) uIu/ml Urine Color Urine Appearance (Clear) Urine pH (4.5-7.5) Ur Specific [place] (1.000-1.030) Urine Protein (Negative) Urine Glucose (UA) (Negative) Urine Ketones (Negative) Urine Blood (Negative) Urine Nitrite (Negative) Urine Bilirubin (Negative) Urine Urobilinogen (Negative) Ur Leukocyte Esterase (Negative) Urine WBC (Auto) (0-5) /hpf Urine RBC (Auto) (0-4) /hpf U Hyaline Cast (Auto) (0-5) /lpf U Epithel Cells (Auto) (0-5) /lpf Urine Bacteria (Auto) (Negative) SARS-CoV-2, RNA, NAAT NEGATIVE (NEGATIVE) 07/10/21 07/10/21 Range/Units 11:58 12:44 WBC (4.8-10.8) K/uL RBC (4.2-5.4) M/uL Hgb (12.0-16.0) g/dL Hct (37-47) % MCV (80-100) fL MCH (25-34) pg MCHC (32-36) g/dL RDW Std Deviation (36.4-46.3) fL RDW Coeff of Karina (11.5-14.5) % Plt Count (130-400) K/uL MPV (7.4-10.4) fL Immature Gran % (Auto) % Neut % (Auto) % Lymph % (Auto) % [place] % (Auto) % Eos % (Auto) % Baso % (Auto) % Neut # (Auto) (1.4-6.5) K/uL Lymph # (Auto) (1.2-3.4) K/uL [place] # (Auto) (0.11-0.59) K/uL Eos # (Auto) (0-0.5) K/uL Baso # (Auto) (0-0.2) K/uL Immature Gran # (Auto) (0.00-0.02) K/uL ESR (0-30) mm/hr PT (9.0-12.0) Seconds INR (0.9-1.1) APTT (21.0-31.0) Seconds PTT Ratio Sodium (136-145) mmol/L Potassium (3.5-5.1) mmol/L Chloride (98-107) mmol/L Carbon Dioxide (21-32) mmol/L Anion Gap (3-11) BUN (7-18) mg/dl Creatinine (0.6-1.2) mg/dl Est Cr Clr Drug Dosing Est GFR ( Amer) ml/min Est GFR (Non-Af Amer) ml/min BUN/Creatinine Ratio (10-20) Glucose (70-99) mg/dl Lactate (0.4-2.0) mmol/L Calcium (8.5-10.1) mg/dl Magnesium 2.2 (1.8-2.4) mg/dl Total Bilirubin (0.2-1) mg/dl AST (15-37) U/L ALT (12-78) U/L Alkaline Phosphatase (45-117) U/L Troponin I < 0.015 (0-0.045) ng/ml C-Reactive Protein 0.95 H (0-0.29) mg/dl NT-Pro-B Natriuret Pep 5071 H (0-900) pg/ml Total Protein (6.4-8.2) gm/dl Albumin (3.4-5.0) gm/dl Globulin (2.5-4.0) gm/dl Albumin/Globulin Ratio (0.9-2) TSH 3.830 (0.300-4.500) uIu/ml Urine Color Yellow Urine Appearance Clear (Clear) Urine pH 8.0 H (4.5-7.5) Ur Specific [place] 1.009 (1.000-1.030) Urine Protein 1+ H (Negative) Urine Glucose (UA) Negative (Negative) Urine Ketones Negative (Negative) Urine Blood 1+ H (Negative) Urine Nitrite Negative (Negative) Urine Bilirubin Negative (Negative) Urine Urobilinogen Negative (Negative) Ur Leukocyte Esterase Negative (Negative) Urine WBC (Auto) 0 (0-5) /hpf Urine RBC (Auto) 5-10 H (0-4) /hpf U Hyaline Cast (Auto) 0 (0-5) /lpf U Epithel Cells (Auto) 5-10 H (0-5) /lpf Urine Bacteria (Auto) Negative (Negative) SARS-CoV-2, RNA, NAAT (NEGATIVE) Administered Medications Discontinued Medications Cefepime HCl (Cefepime 2,000 Mg/20 Ml Vial) Confirm Administered Dose 2,000 mg .ROUTE .[facility] Stop: 07/10/21 12:26 Last Admin: 07/10/21 12:32 Dose: Not Given Documented by: [id number] Furosemide (Furosemide 40 Mg/4 Ml Vial) 60 mg IV NOW STA Stop: 07/10/21 11:26 Last Admin: 07/10/21 11:44 Dose: 60 mg Documented by: [id number] Hydralazine HCl (Hydralazine Hcl 20 Mg/Ml Vial) 10 mg IV NOW STA Stop: 07/10/21 11:26 Last Admin: 07/10/21 11:44 Dose: 10 mg Documented by: [id number] Cefepime HCl (Maxipime) 2,000 mg in 20 mls @ 5 mls/min IV NOW STA; Protocol Stop: 07/10/21 12:28 Last Admin: 07/10/21 12:27 Dose: 5 mls/min Documented by: [id number] Imaging Data Radiologist's Impression: Chest X-Ray 07/10/21 10:08 XR chest 2V PA/lateral CLINICAL HISTORY: Shortness of breath. COMPARISON STUDY: Chest radiograph June 27, 2021. FINDINGS: Postoperative findings within the right shoulder are partially imaged. There is no pneumothorax. Small bilateral pleural effusions are noted. Cardiomegaly is noted. There is pulmonary vascular congestion without evidence for pulmonary edema. No consolidation is identified. IMPRESSION: 1. Cardiomegaly with pulmonary vascular congestion. 2. Small bilateral pleural effusions. ACT 112: Negative or not required by law. Electronically signed by: Henry Rinaldi M.D. 07/10/2021 10:38 AM Venous Doppler Study 07/10/21 11:25 BILATERAL LOWER EXTREMITY VENOUS DOPPLER CLINICAL HISTORY: Bilateral lower extremity swelling. Evaluate for deep venous thrombus. COMPARISON STUDY: Bilateral lower extremity venous ultrasound September 13, 2020. TECHNIQUE: Sonography of the deep venous system of the bilateral lower extremities was performed. Compression and augmentation were evaluated. FINDINGS: The bilateral common femoral, superficial femoral and popliteal veins were compressible. Augmentation was normal. Flow was shown within the deep calf vessels. Incidental note is made of bilateral lower extremity edema. IMPRESSION: No evidence of deep venous thrombus within the bilateral lower ext remities. ACT 112: Negative or not required by law. Electronically signed by: Henry Rinaldi M.D. 07/10/2021 1:21 PM Discharge Plan Visit Data Chief Complaint: Edema To Extremity Stated Complaint: RASH ALL OVER,FLUID IN LEGS ED Provider: Alexander Blanco Discharge Problem: SOB (shortness of breath), Edema, Cellulitis, CHF (congestive heart failure) Patient Disposition: Admitted As Inpatient Condition: Fair Forms Stand Alone Forms: [facility] Prescriptions Prescriptions: No Action carvedilol 12.5 mg tablet 12.5 mg PO BID Qty: 180 RF: 1 Xifaxan 550 mg tablet 550 mg PO BID Qty: 180 RF: 1 (DME) OneTouch Ultra Blue Test Strip Strip See Rx Instructions .ROUTE .MEDSUPPLY Qty: 100 RF: 1 folic acid 1 mg tablet 1 mg PO BID Qty: 180 RF: 1 sodium bicarbonate 650 mg tablet 1,300 mg PO BID Qty: 180 RF: 1 ropinirole 2 mg tablet See Rx Instructions .ROUTE .COMPLEX Qty: 135 RF: 1 (DME) Dexcom G6 Transmitter Device See Rx Instructions .ROUTE .MEDSUPPLY Qty: 1 RF: 0 (DME) Dexcom G6 Sensor Device See Rx Instructions .ROUTE .MEDSUPPLY Qty: 3 RF: 0 lactulose 20 gram/30 mL solution 45 ml PO BID 30 Days Qty: 2700 RF: 0 clotrimazole-betamethasone 1-0.05 % cream 1 applic topical BID PRN (Reason: Skin Irritation) Qty: 45 RF: 0 ferrous sulfate 325 mg (65 mg iron) tablet,delayed release (DR/EC) 325 mg PO Q OTHER DAY Qty: 30 RF: 5 insulin aspart U-100 [Novolog Flexpen U-100 Insulin] 100 unit/mL (3 mL) i nsulin pen See Rx Instructions SQ TID Qty: 15 RF: 3 hydralazine 10 mg tablet 20 mg PO BID Qty: 120 RF: 1 hydroxyzine HCl 25 mg tablet 25 mg PO TID PRN (Reason: Itching) RF: 0 potassium chloride 10 mEq capsule, extended release 10 meq PO DAILY Qty: 30 RF: 0 pantoprazole 40 mg tablet,delayed release (DR/EC) 40 mg PO QAM RF: 0 Forteo 20 mcg/dose (600mcg/2.4mL) Pen Injector 20 mcg SUBCUT DAILY RF: 0 Basaglar KwikPen U-100 Insulin 100 unit/mL (3 mL) insulin pen 18 unit subcut HS RF: 0 Referrals Referrals: Rocío Alonso DO [Primary Care Provider] -
[2021-07-10 11:44] LABS: Alanine Aminotransferase 27 U/L (12-78); Albumin Level 2.3 gm/dl (3.4-5.0); Aspartate Aminotransferase 41 U/L (15-37); Blood Urea Nitrogen 49 mg/dl (7-18); Calcium 8.8 mg/dl (8.5-10.1); Carbon Dioxide 22 mmol/L (21-32); Chloride 114 mmol/L (98-107); Est GFR (African American) 23.4 ml/min; Est GFR (Non-African American) 20.2 ml/min; Glucose 108 mg/dl (70-99); Potassium 4.2 mmol/L (3.5-5.1); Sodium 143 mmol/L (136-145)
[2021-07-10 11:46] LABS: Albumin Globulin Ratio 0.5 (0.9-2); Alkaline Phosphatase 146 U/L (45-117); Bilirubin,Total 1.7 mg/dl (0.2-1); Globulin 5.1 gm/dl (2.5-4.0); Total Protein 7.4 gm/dl (6.4-8.2)
[2021-07-10] MEDS ORDERED: CEFEPIME 2,000 MG/20 ML VIAL IV STA (12:25)
[2021-07-10] MEDS ORDERED: CEFEPIME 2,000 MG/20 ML VIAL ONE (12:25)
[2021-07-10 12:29] LABS: Basophils # (auto) 0.02 K/uL (0-0.2); Basophils % (auto) 0.7 %; Eosinophils # (auto) 0.15 K/uL (0-0.5); Eosinophils % (auto) 5.5 %; Immature Granulocytes # (auto) 0.01 K/uL (0.00-0.02); Immature Granulocytes % (auto) 0.4 %; Lymphocytes # (auto) 0.69 K/uL (1.2-3.4); Lymphocytes % (auto) 25.2 %; Monocytes # (auto) 0.27 K/uL (0.11-0.59); Monocytes % (auto) 9.9 %; Neutrophils % (auto) 58.3 %
[2021-07-10 12:49] LABS: C Reactive Protein 0.95 mg/dl (0-0.29); Magnesium 2.2 mg/dl (1.8-2.4); NT Pro B Type Natriuretic Pept 5071 pg/ml (0-900); Troponin I < 0.015 ng/ml (0-0.045)
[2021-07-10 12:55] LABS: Appearance Urine Clear (Clear); Bacteria Urine Automated Negative (Negative); Bilirubin Urine Negative (Negative); Blood Urine 1+ (Negative); Cast Urine Automated 0 /lpf (0-5); Color Urine Yellow; Glucose Urine UA Negative (Negative); Ketones Urine Negative (Negative); Leukocyte Esterase Urine Negative (Negative); Nitrite Urine Negative (Negative); Specific Gravity Urine 1.009 (1.000-1.030); Urobilinogen Urine Negative (Negative); WBC Urine Automated 0 /hpf (0-5)
[2021-07-10 13:04] LABS: Protein Urine 1+ (Negative)
--- NOTE | 2021-07-10 13:23 | Ultrasound Report ---
BILATERAL LOWER EXTREMITY VENOUS DOPPLER CLINICAL HISTORY: Bilateral lower extremity swelling. Evaluate for deep venous thrombus. COMPARISON STUDY: Bilateral lower extremity venous ultrasound September 13, 2020. TECHNIQUE: Sonography of the deep venous system of the bilateral lower extremities was performed. Co mpression and augmentation were evaluated. FINDINGS: The bilateral common femoral, superficial femoral and popliteal veins were compressible. A ugmentation was normal. Flow was shown within the deep calf vessels. Incidental note is made of bilat eral lower extremity edema. IMPRESSION: No evidence of deep venous thrombus within the bilateral lower extremities. ACT 112: Negative or not required by law. Electronically signed by: Henry Rinaldi M.D. 07/10/2021 1:21 PM
--- NOTE | 2021-07-10 15:01 | History & Physical Report ---
Date of Service July 10, 2021 Assessment & Plan (1) Rash: Plan: Petechia ?capillaritis related to swelling +/- recent antibiotic use vs platelet transfusions in setting of thrombocytopenia Can use topical steroids only on lower extremities for itching Does not appear to be cellulitic therefore will discontinue further antibiotics Consult dermatology (2) Edema: Plan: Suspect mostly right sided with severe pulmonary hypertension on prior TTE Lasix 60mg IV given in ER. Will preliminary prescribe additional 40mg IV daily but should be changed depending on Cr results in AM. Low Na diet I&Os Daily weights (3) Acute on chronic diastolic (congestive) heart failure: Plan: As above (4) Hypertensive urgency: Plan: Suspect secondary to hypervolemia and missing her usual morning medications. Continue Carvedilol 12.5mg PO BID (extra dose now), hydralazine 20mg PO BID and Hydralazine 10mg Q4H PRN for sBP > 180 (5) Tinea corporis: Plan: Under bilateral breasts. Use nystatin powder TID (6) Pancytopenia: Plan: Secondary to liver cirrhosis, follow up with hematology as outpatient. At baseline. Repeat CBC in AM. (7) DM type 2 (diabetes mellitus, type 2): Plan: HbA1C 9.1 in June, no need to repeat this Consult pharmacy for glycemic control during inpatient admission (8) 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: Plan: Continue her usual lactulose 20g BID, rifaximin 550mg PO BID Plan: VTE Prophylaxis - chemical prophylaxis deferred due to thrombocytopenia Diet - Low Na, T2DM Disposition - admit to med/tele Admission and Anticipated Discharge Date Admission Date: July 10, 2021 History of Present Illness Chief Complaint: Bilateral leg swelling and rash Primary Care Provider: DO Angela Guzman Lane is a 66 year old female with MAE liver cirrhosis who presents to the ER with bilateral leg edema and itchy rash. She was most recently admitted to [facility] from June 27 - 2020 due to generalized weakness, fatigue, nausea and vomiting. On this occasion she was diagnosed with acute worsening of her chronic pancytopenia and was given 2 units packed RBCs. Fecal occult blood was negative. She was also prescribed ceftriaxone and switched to cefdinir on discharge for possible UTI. She finished her antibiotics last Saturday (missed taking it for a few days as was not available at her pharmacy). Furosemide was discontinued as she was dehydrated on admission (previously on 40mg PO daily). Since discharge she has been slowly increasing her weight at home with worsening b/l lower extremity edema. 3-4 days ago she started having an intensely itchy rash on her lower extremities which has now spread all over her body but mainly on her lower extremities. She has a history of rheumatoid and psoriatic arthritis, previously on Humira but not currently under a flat finisher and never had a similar rash before in the past. In the ER there was concern for bilateral lower extremity cellulitis and she was given one dose of cefepime 2g IV. She has missed her morning anti-hypertensives and BP 187/73 in the ER up to 226/93. She was given furosemide 60mg IV and hydralazine 10mg IV for this. She was referred to medicine for admission and ongoing management of cellulitis, fluid overload and hypertensive urgency. Allergies Allergy/AdvReac Type Severity Reaction Status Date / Time sulfamethoxazole Allergy Intermediate RASH Verified 07/10/21 14:14 trimethoprim Allergy Intermediate RASH Verified 07/10/21 14:14 Sulfa (Sulfonamide Allergy Rash Unverified 07/10/21 14:14 Antibiotics) amlodipine AdvReac Intermediate confusion Verified 07/10/21 14:14 adhesive tape AdvReac Mild ITCHING Verified 07/10/21 14:14 Home Medications Medication Instructions Recorded Confirmed Type blood-glucose sensor (Dexcom G6 #3 ea 12/01/20 07/04/21 History Sensor) blood-glucose transmitter (Dexcom #1 ea 12/01/20 07/04/21 History G6 Transmitter) carvedilol 12.5 mg tablet 12.5 mg PO BID #180 tab 01/19/21 07/10/21 Rx rifaximin 550 mg tablet (Xifaxan) 550 mg PO BID #180 tab 01/19/21 07/10/21 Rx clotrimazole-betamethasone 1 1 applic TOPICAL BID PRN #45 g 02/07/21 07/10/21 Rx %-0.05 % topical cream lactulose 20 gram/30 mL oral 45 ml PO BID 30 Days #2700 ml 02/07/21 07/10/21 Rx solution pantoprazole 40 mg tablet,delayed 40 mg PO QAM 02/14/21 07/10/21 History release blood sugar diagnostic (OneTouch #100 ea 02/15/21 07/04/21 Rx Ultra Blue Test Strip) ferrous sulfate 325 mg (65 mg 325 mg PO Q OTHER DAY #30 tab 04/27/21 07/10/21 Rx iron) tablet,delayed release hydralazine 10 mg tablet 20 mg PO BID #120 tab 04/27/21 07/10/21 Rx insulin aspart U-100 100 unit/mL See Rx Instructions SQ TID #15 ml 04/27/21 07/10/21 Rx (3 mL) subcutaneous pen (Novolog Flexpen U-100 Insulin aspart) folic acid 1 mg tablet 1 mg PO BID #180 tab 05/14/21 07/10/21 Rx sodium bicarbonate 650 mg tablet 1,300 mg PO BID #180 tab 06/04/21 07/10/21 Rx ropinirole 2 mg tablet See Rx Instructions .ROUTE 06/15/21 07/10/21 Rx .COMPLEX #135 tab hydroxyzine HCl 25 mg tablet 25 mg PO TID PRN 06/27/21 07/10/21 History potassium chloride 10 mEq 10 meq PO DAILY #30 cap 06/30/21 07/10/21 Rx capsule,extended release insulin glargine 100 unit/mL (3 18 unit SUBCUT HS 07/10/21 07/10/21 History mL) subcutaneous pen (Basaglar KwikPen U-100 Insulin) teriparatide 20 mcg/dose (600 20 mcg SUBCUT DAILY 07/10/21 07/10/21 History mcg/2.4 mL) subcutaneous pen injector (Forteo) 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 Lower GI bleed Nausea and vomiting after administration of anesthetic agent On home oxygen therapy 2L prn for SOB Osteoarthritis Osteoporosis Pancytopenia Pleural effusion Psoriatic arthritis Right shoulder pain Risk for falls Surgical History H/O esophagogastroduodenoscopy History of anesthesia reaction History of bilateral cataract extraction History of bladder surgery History of colonoscopy History of esophagogastroduodenoscopy (EGD) History of hemiarthroplasty of right shoulder History of repair of right rotator cuff History of revision of total shoulder arthroplasty (12/29/18) History of shoulder surgery (~11/2019) History of thoracentesis (~10/05/19) History of tooth extraction S/P ORIF (open reduction internal fixation) fracture S/P shoulder surgery (11/18/19) Family History Grandmother (Paternal) Family history of diabetes mellitus Father COPD (chronic obstructive pulmonary disease) Mother Hypertension Family/Other Cancer Sister Ovarian cancer Other No family history of adverse response to anesthesia Denies family history of Prostate cancer Myocardial infarction Breast cancer Colorectal cancer Social History Smoking Status: Never smoker Tobacco Type: Cigarettes Age Started Using Tobacco: 17; Age Quit Using Tobacco: 31; packs per day: 1; Second Hand Exposure: No; Hx Alcohol Use: No Hx Substance Use: No Preferred Language: Indonesian Communication Ability: Effective Visual Impairment: Limited Hearing Ability: Hard of Hearing Disability Case Manager Required: No Beliefs That Will Affect Care: None marital status: Current Living Situation: Spouse Current Living Situation Comment: Lives with and son current occupational status: retired How many Children do You have: 2 Other Information That Helps Us Care for You: No Feels Safe at Home: Yes Childhood Exposure to Second-Hand Smoke: Yes Diet Comment: regular during the past year weight has: remained stable Dental Care, Regularly: No Physical Activity Frequency: Does not Exercise Seatbelt Use: always Sunscreen Use: Yes Do you think of yourself as: straight/heterosexual Gender Identity: Female Assistive Devices: Cane and Walker Review of Systems Review of Systems: All systems reviewed & are unremarkable except as noted in HPI & below ongoing fungal rash under b/l breasts no recent nausea/vomiting despite restarting Forteo Physical Exam Constitutional: WD/WN, vitals as above Eyes: PERRL, conjunctivae normal, anicteric sclerae ENMT: external ear and nose normal, oropharynx normal Neck: trachea midline, no thyromegaly Respiratory: normal respiratory effort, lungs clear to auscultation Cardiovascular: Rate/Rhythm: regular rate and regular rhythm Heart Sounds: no murmur Vessels: + JVD Extremities: normal capillary refill, + calf tenderness (b/l equal) and + pedal edema (2+ to knees b/l equal) Gastrointestinal (Abdomen): normal bowel sounds, soft, nontender, no hepatosplenomegaly Musculoskeletal: Extremities: + petechiae (in capillary distribution on b/l LE, equal b/l up to abdomen, non-blanching) Skin: + erythema (tinea appearing rash under b/l breasts L > R) Neurologic: moves all extremities and awake; no focal motor deficits (no lateralizing deficit) and not confused Motor/Sensory: no tremor and no asterixis Psychiatric: A+Ox3, euthymic affect Results & Data Results & Data ([facility]) Vital Signs (Past 12 Hours) Vital Signs Temp Pulse Pulse Resp BP BP Pulse Ox 07/10/21 14:00 68 18 183/78 H 96 07/10/21 13:30 68 18 170/78 H 95 07/10/21 13:16 69 27 H 177/87 H 95 07/10/21 12:45 68 20 172/106 H 95 07/10/21 12:30 68 18 200/87 H 94 07/10/21 12:15 66 19 188/84 H 95 07/10/21 12:00 67 18 202/88 H 94 07/10/21 11:50 207/96 H 07/10/21 11:45 66 19 209/86 H 95 07/10/21 11:30 66 17 226/93 H 94 07/10/21 11:15 82 24 95 07/10/21 11:13 66 23 95 07/10/21 11:10 65 16 204/111 H 95 07/10/21 10:04 37.3 C 64 20 187/73 H 95 Laboratory Results Abnormal lab results 07/10/21 07/10/21 07/10/21 Range/Units 11:09 11:09 11:09 WBC 2.74 L (4.8-10.8) K/uL RBC 3.09 L (4.2-5.4) M/uL Hgb 8.7 L (12.0-16.0) g/dL Hct 27.4 L (37-47) % MCHC 31.8 L (32-36) g/dL RDW Std Deviation 51.4 H (36.4-46.3) fL RDW Coeff of Karina 16.1 H (11.5-14.5) % Plt Count 44 L (130-400) K/uL MPV 11.1 H (7.4-10.4) fL Lymph # (Auto) 0.69 L (1.2-3.4) K/uL ESR (0-30) mm/hr PT 13.2 H (9.0-12.0) Seconds INR 1.3 H (0.9-1.1) Chloride 114 H (98-107) mmol/L BUN 49 H (7-18) mg/dl Creatinine 2.43 H (0.6-1.2) mg/dl Glucose 108 H (70-99) mg/dl POC Glucose (70-99) mg/dl Total Bilirubin 1.7 H (0.2-1) mg/dl AST 41 H (15-37) U/L Alkaline Phosphatase 146 H (45-117) U/L C-Reactive Protein (0-0.29) mg/dl NT-Pro-B Natriuret Pep (0-900) pg/ml Albumin 2.3 L (3.4-5.0) gm/dl Globulin 5.1 H (2.5-4.0) gm/dl Albumin/Globulin Ratio 0.5 L (0.9-2) Urine pH (4.5-7.5) Urine Protein (Negative) Urine Blood (Negative) Urine RBC (Auto) (0-4) /hpf U Epithel Cells (Auto) (0-5) /lpf 07/10/21 07/10/21 07/10/21 Range/Units 11:09 11:58 12:44 WBC (4.8-10.8) K/uL RBC (4.2-5.4) M/uL Hgb (12.0-16.0) g/dL Hct (37-47) % MCHC (32-36) g/dL RDW Std Deviation (36.4-46.3) fL RDW Coeff of Karina (11.5-14.5) % Plt Count (130-400) K/uL MPV (7.4-10.4) fL Lymph # (Auto) (1.2-3.4) K/uL ESR 42 H (0-30) mm/hr PT (9.0-12.0) Seconds INR (0.9-1.1) Chloride (98-107) mmol/L BUN (7-18) mg/dl Creatinine (0.6-1.2) mg/dl Glucose (70-99) mg/dl POC Glucose (70-99) mg/dl Total Bilirubin (0.2-1) mg/dl AST (15-37) U/L Alkaline Phosphatase (45-117) U/L C-Reactive Protein 0.95 H (0-0.29) mg/dl NT-Pro-B Natriuret Pep 5071 H (0-900) pg/ml Albumin (3.4-5.0) gm/dl Globulin (2.5-4.0) gm/dl Albumin/Globulin Ratio (0.9-2) Urine pH 8.0 H (4.5-7.5) Urine Protein 1+ H (Negative) Urine Blood 1+ H (Negative) Urine RBC (Auto) 5-10 H (0-4) /hpf U Epithel Cells (Auto) 5-10 H (0-5) /lpf 07/10/21 Range/Units 20:06 WBC (4.8-10.8) K/uL RBC (4.2-5.4) M/uL Hgb (12.0-16.0) g/dL Hct (37-47) % MCHC (32-36) g/dL RDW Std Deviation (36.4-46.3) fL RDW Coeff of Karina (11.5-14.5) % Plt Count (130-400) K/uL MPV (7.4-10.4) fL Lymph # (Auto) (1.2-3.4) K/uL ESR (0-30) mm/hr PT (9.0-12.0) Seconds INR (0.9-1.1) Chloride (98-107) mmol/L BUN (7-18) mg/dl Creatinine (0.6-1.2) mg/dl Glucose (70-99) mg/dl POC Glucose 185 H (70-99) mg/dl Total Bilirubin (0.2-1) mg/dl AST (15-37) U/L Alkaline Phosphatase (45-117) U/L C-Reactive Protein (0-0.29) mg/dl NT-Pro-B Natriuret Pep (0-900) pg/ml Albumin (3.4-5.0) gm/dl Globulin (2.5-4.0) gm/dl Albumin/Globulin Ratio (0.9-2) Urine pH (4.5-7.5) Urine Protein (Negative) Urine Blood (Negative) Urine RBC (Auto) (0-4) /hpf U Epithel Cells (Auto) (0-5) /lpf Diagnostic Findings XR chest 2V PA/lateral CLINICAL HISTORY: Shortness of breath. COMPARISON STUDY: Chest radiograph June 27, 2021. FINDINGS: Postoperative findings within the right shoulder are partially imaged. There is no pneumothorax. Small bilateral pleural effusions are noted. Cardiomegaly is noted. There is pulmonary vascular congestion without evidence for pulmonary edema. No consolidation is identified. IMPRESSION: 1. Cardiomegaly with pulmonary vascular congestion. 2. Small bilateral pleural effusions. BILATERAL LOWER EXTREMITY VENOUS DOPPLER CLINICAL HISTORY: Bilateral lower extremity swelling. Evaluate for deep venous thrombus. COMPARISON STUDY: Bilateral lower extremity venous ultrasound September 13, 2020. TECHNIQUE: Sonography of the deep venous system of the bilateral lower extremities was performed. Compression and augmentation were evaluated. FINDINGS: The bilateral common femoral, superficial femoral and popliteal veins were compressible. Augmentation was normal. Flow was shown within the deep calf vessels. Incidental note is made of bilateral lower extremity edema. IMPRESSION: No evidence of deep venous thrombus within the bilateral lower extremities. Medications Administered ER Medications Given: Hydralazine 10mg IV Furosemide 60mg IV Cefepime 2000mg IV ECG Rate (beats per minute): 67 Rhythm: normal sinus Findings: + prolonged QT (QTc 492ms); no acute ischemic change Comparison ECG Date: from (June 27, 2021) Change: no significant change Code Status & VTE Plan Code Status Full VTE Prophylaxis Plan VTE Prophylaxis will be ordered: No Reason for no VTE drug order: Contraindicated (thrombocytopenia) Reason for no VTE mechanical prophylaxis: Contraindicated (petechia rash, open wounds) PG Care Time/CCT Total # of Minutes Spent Total Time Spent with Patient: Total time spent is greater than 50% in coordination of care (as documented) at patient's floor/unit and/or counseling patient: Coding Level of Care Code 69303 Initial Inpt Care Lvl 3 Diagnoses Edema R60.9 Edema type: unspecified Hypertensive urgency I16.0 Tinea corporis B35.4 Acute on chronic diastolic (congestive) heart failure I50.33 Rash R21 Pancytopenia D61.818 DM type 2 (diabetes mellitus, type 2) E11.65 Diabetes mellitus fpc insulin use: without long term acute care registered nurse use Diabetes mellitus complication status: with hyperglycemia 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 K75.81; K74.60 (1) Edema Edema type: unspecified Qualified Code(s): R60.9 - Edema, unspecified (2) DM type 2 (diabetes mellitus, type 2) Diabetes mellitus fpc insulin use: without fpc use Diabetes mellitus complication status: with hyperglycemia Qualified Code(s): E11.65 - Type 2 diabetes mellitus with hyperglycemia
[2021-07-10] MEDS ORDERED: ACETAMINOPHEN 325 MG TAB PO PRN (17:31)
[2021-07-10] MEDS ORDERED: PHARMACY GLYCEMIC MGMT CONSULT PRN (17:31)
[2021-07-10] MEDS ORDERED: CARBOHYDRATES FOR HYPOGLYCEMIA PO PRN (17:45)
[2021-07-10] MEDS ORDERED: GLUCAGON FOR INJ 1 MG VIAL IM PRN (17:45)
[2021-07-10] MEDS ORDERED: GLUCOSE 10 TABS/TUBE PO PRN (17:45)
[2021-07-10] MEDS ORDERED: GLUCOSE 40% GEL 15 GM TUBE PO PRN (17:45)
[2021-07-10] MEDS ORDERED: DEXTROSE 50% 50 ML SYRINGE IV PRN (17:45)
[2021-07-10] MEDS: carvediloL 12.5 MG TAB PO SCH ×2 (18:30→20:09)
[2021-07-10] MEDS: INSULIN ASPART 100 UNITS/ML 3 ML PEN SC SCH ×2 (18:36→20:09)
[2021-07-10] MEDS ORDERED: hydrALAZINE HCL 20 MG/ML VIAL IV PRN (19:11)
[2021-07-10] MEDS: FOLIC ACID 1 MG TAB PO SCH (20:07)
[2021-07-10] MEDS: rOPINIRole HCL 1 MG TABLET PO SCH (20:08)
[2021-07-10] MEDS: SODIUM BICARBONATE 650 MG TAB PO SCH (20:08)
[2021-07-10] MEDS: rifAXIMin 550 MG TABLET PO SCH (20:08)
[2021-07-10] MEDS: LACTULOSE SYRUP 30 GM/45 ML UDP PO SCH (20:09)
[2021-07-10] MEDS: hydrALAZINE 10 MG TAB PO SCH (20:09)
[2021-07-10] MEDS: NYSTATIN POWDER 15GM BTL EXT SCH ×2 (21:45→21:54)
[2021-07-10] MEDS: INSULIN GLARGINE SOLOSTAR 100 UNITS/ML 3 ML PEN SC SCH (21:45)
[2021-07-10] MEDS: BETAMETHASONE DIP AUG (DIPROLENE) 0.05% CR 15 GM TUBE EXT SCH (22:02)
[2021-07-11] MEDS: rifAXIMin 550 MG TABLET PO SCH ×2 (07:53→20:27)
[2021-07-11] MEDS: SODIUM BICARBONATE 650 MG TAB PO SCH ×2 (07:53→20:28)
[2021-07-11] MEDS: FOLIC ACID 1 MG TAB PO SCH ×2 (07:53→20:27)
[2021-07-11] MEDS: hydrALAZINE 10 MG TAB PO SCH ×2 (07:53→20:27)
[2021-07-11] MEDS: PANTOprazole 40 MG TAB PO SCH (07:53)
[2021-07-11] MEDS: carvediloL 12.5 MG TAB PO SCH ×2 (07:54→20:27)
[2021-07-11] MEDS: LACTULOSE SYRUP 30 GM/45 ML UDP PO SCH ×2 (07:54→20:28)
[2021-07-11] MEDS: NYSTATIN POWDER 15GM BTL EXT SCH ×3 (07:54→20:27)
[2021-07-11] MEDS: BETAMETHASONE DIP AUG (DIPROLENE) 0.05% CR 15 GM TUBE EXT SCH (07:54)
[2021-07-11] MEDS ORDERED: FUROSEMIDE 40 MG/4 ML VIAL IV SCH (09:00)
[2021-07-11] MEDS ORDERED: FERROUS SULFATE 325 MG TAB PO SCH (09:00)
[2021-07-11 09:25] LABS: Hematocrit (blood only) 26.3 % (37-47); Hemoglobin 8.4 g/dL (12.0-16.0); Mean Corpuscular Hemoglobin 28.4 pg (25-34); Mean Corpuscular Hgb Conc 31.9 g/dL (32-36); Mean Corpuscular Volume 88.9 fL (80-100); RDW Coefficient of Variation 16.1 % (11.5-14.5); RDW Standard Deviation 51.8 fL (36.4-46.3); Red Blood Count 2.96 M/uL (4.2-5.4); White Blood Count 2.39 K/uL (4.8-10.8)
[2021-07-11] MEDS: INSULIN ASPART 100 UNITS/ML 3 ML PEN SC SCH ×4 (09:31→20:30)
[2021-07-11 09:44] LABS: Albumin Level 2.1 gm/dl (3.4-5.0); BUN Creatinine Ratio 17.3 (10-20); Calcium 8.4 mg/dl (8.5-10.1); Creatinine Clr Calc Pharmacy 19.1 ml/min; Est GFR (African American) 19.9 ml/min; Est GFR (Non-African American) 17.2 ml/min; Potassium 4.1 mmol/L (3.5-5.1)
[2021-07-11 09:47] LABS: Albumin Globulin Ratio 0.4 (0.9-2); Bilirubin,Total 1.3 mg/dl (0.2-1); Globulin 4.7 gm/dl (2.5-4.0); Total Protein 6.8 gm/dl (6.4-8.2)
[2021-07-11 10:04] LABS: Mean Platelet Volume 9.9 fL (7.4-10.4); Platelet Count 30 K/uL (130-400)
[2021-07-11 10:06] LABS: Basophils # (auto) 0.01 K/uL (0-0.2); Basophils % (auto) 0.4 %; Eosinophils # (auto) 0.09 K/uL (0-0.5); Eosinophils % (auto) 3.8 %; Lymphocytes # (auto) 0.54 K/uL (1.2-3.4); Lymphocytes % (auto) 22.6 %; Monocytes % (auto) 8.4 %; Neutrophils # (auto) 1.55 K/uL (1.4-6.5); Neutrophils % (auto) 64.8 %
[2021-07-11] MEDS: diphenhydrAMINE 50 MG/ML VIAL IV PRN ×2 (12:07→23:40)
--- NOTE | 2021-07-11 12:08 | Hospitalist Progress Note ---
Date of Service July 11, 2021 Assessment & Plan (1) Rash: Plan: Unclear cause with possible vasculitis vs. other. Petechia vs ?capillaritis related to swelling +/- recent antibiotic use vs platelet transfusions in setting of thrombocytopenia. - Continue topical steroids only on lower extremities for itching - Consult dermatology - Discussed today. Will see soon. (2) Edema: Plan: Suspect mostly right sided with severe pulmonary hypertension on prior TTE. - Lasix 60mg IV given in ER and Lasix 40 mg IV on 07/11. - Defer further Lasix as swelling isn't that bad, and Cr is rising. - Low Na diet, I&Os, daily weights (3) CKD (chronic kidney disease) stage 4, GFR 15-29 ml/min: Plan: Baseline Cr ~2.4 - 2.6. - Presently with Cr of 2.7 after IV diuresis - Hold diuresis; avoid nephrotoxic meds - Monitor (4) Acute on chronic diastolic (congestive) heart failure: Plan: As above (5) Hypertensive urgency: Plan: Possibly secondary to hypervolemia and missing her usual morning medications. - Continue home carvedilol 12.5mg PO BID (extra dose now) & hydralazine 20mg PO BID - Hydralazine 10mg Q4H PRN for sBP > 180 (6) Tinea corporis: Plan: Under bilateral breasts. - Continue nystatin powder TID (7) Pancytopenia: Plan: Secondary to liver cirrhosis, follow up with hematology as outpatient. At baseline. - Monitor (8) DM type 2 (diabetes mellitus, type 2): Plan: HbA1C was 9.1% in June. - Consulted pharmacy for glycemic control during inpatient admission (9) 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: Plan: No indication of acute decompensation. - Continue her usual lactulose 20g BID, rifaximin 550mg PO BID (10) DVT prophylaxis: Plan: SCDs - Low DVT risk per admission calculator Admission and Anticipated Discharge Date Admission Date: July 10, 2021 Subjective No major change since yesterday. She has continued rash with some pain and itchiness. Otherwise, reports no fevers/chills, chest pain, shortness of breath, abdominal pain, nausea, or vomiting. Physical Exam Constitutional: WD/WN, vitals as above Eyes: EOM intact bilaterally; no conjunctival abnormality ENMT: external ear and nose normal, oropharynx normal Neck: trachea midline, no thyromegaly normal visual inspection Respiratory: normal respiratory effort, lungs clear to auscultation no respiratory distress Cardiovascular: RRR, no murmur, no edema Gastrointestinal (Abdomen): Inspection/Auscultation: abdomen normal to inspection; abdomen not distended Musculoskeletal: no cyanosis or clubbing, extremities motor strength 5/5 Skin: + rash (Bilateral palpable purpura on legs, thighs) Neurologic: moves all extremities and awake Psychiatric: Orientation: alert, oriented to person and cooperative Results & Data Results & Data ([facility]) Vital Signs (Past 12 Hours) Vital Signs Temp Pulse Pulse Pulse Resp BP BP 07/11/21 11:27 36.5 C 66 18 153/68 H 07/11/21 07:49 36.8 C 70 18 163/68 H 07/11/21 07:00 66 07/11/21 04:00 36.7 C 63 18 133/65 07/11/21 00:02 63 Pulse Ox 07/11/21 11:27 94 07/11/21 07:49 91 07/11/21 07:00 07/11/21 04:00 93 07/11/21 00:02 PG Care Time/CCT Total # of Minutes Spent Total Time Spent with Patient: Total time spent is greater than 50% in coordination of care (as documented) at patient's floor/unit and/or counseling patient: Coding Level of Care Code 02702 Subseq Hosp Care Lvl 3 Diagnoses Rash R21 Edema R60.9 Edema type: unspecified Acute on chronic diastolic (congestive) heart failure I50.33 Hypertensive urgency I16.0 Tinea corporis B35.4 Pancytopenia D61.818 DM type 2 (diabetes mellitus, type 2) E11.65 Diabetes mellitus exterminator helper termite insulin use: without custodial use Diabetes mellitus complication status: with hyperglycemia 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 K75.81; K74.60 DVT prophylaxis Z29.9 CKD (chronic kidney disease) stage 4, GFR 15-29 ml/min N18.4 (1) Edema Edema type: unspecified Qualified Code(s): R60.9 - Edema, unspecified (2) DM type 2 (diabetes mellitus, type 2) Diabetes mellitus exterminator helper termite insulin use: without custodial use Diabetes mellitus complication status: with hyperglycemia Qualified Code(s): E11.65 - Type 2 diabetes mellitus with hyperglycemia
--- NOTE | 2021-07-11 12:52 | Dermatology Consultation ---
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 This was likely precipitated by her acute worsening of venous hypertension/lower extremity edema as well as her background dry skin. 1) Start triamcinolone 0.1% ointment to areas of the extremities twice daily x 2 weeks. 2) Recommend general daily moisturization to surrounding dry skin 1-2 times daily with a bland emollient (discussed with patient). 3) Fluid management as per primary team. Present on Admission?: Yes History of Present Illness Reason for Consultation: Rash Requesting Physician: Fernando Williamson MD Attending Physician: Fernando Williamson MD History of Present Illness Patient is a 66 y/o female admitted to [facility] on 07/10/2021 with lower extremity rash and acute on chronic CHF. She has a history liver cirrhosis secondary to MAE, CKD, type 2 DM, CHF, and HTN. She has a recent history of admission to [facility] from June 27-2020 for weakness, fatigue and nausea/vomiting. She reports that she was discharged home with her normal diuretic being held until follow-up with PCP. She states that her lower extremity swelling significantly worsened 1-2 days following her return home due to being off of her diuretic. About 2 days following her discharge she started to develop an itchy rash on the feet and ankles. It gradually progressed to involve other areas of the lower legs. She also gradually started to develop some itchy spots on the arms. She denies any history of similar eruption in the past. No close contacts with similar eruption. She was not treating it at home. Since admission they have just been using moisturizer on the areas. Since admission she has received IV Lasix, and she reports that her lower extremity swelling has improved. She still has some itching in the lower legs, but it is somewhat less severe. She denies any other skin complaints today aside from dry skin. She does report a history of psoriasis and psoriatic arthritis for which she was previously on Humira and Cosentyx at the direction of Dr. Schaefer in [place]. She is not on any treatment currently. Allergies Allergy/AdvReac Type Severity Reaction Status Date / Time sulfamethoxazole Allergy Intermediate RASH Verified 07/10/21 14:14 trimethoprim Allergy Intermediate RASH Verified 07/10/21 14:14 Sulfa (Sulfonamide Allergy Rash Unverified 07/10/21 14:14 Antibiotics) amlodipine AdvReac Intermediate confusion Verified 07/10/21 14:14 adhesive tape AdvReac Mild ITCHING Verified 07/10/21 14:14 Home Medications Medication Instructions Recorded Confirmed Type blood-glucose sensor (Dexcom G6 #3 ea 12/01/20 07/04/21 History Sensor) blood-glucose transmitter (Dexcom #1 ea 12/01/20 07/04/21 History G6 Transmitter) carvedilol 12.5 mg tablet 12.5 mg PO BID #180 tab 01/19/21 07/10/21 Rx rifaximin 550 mg tablet (Xifaxan) 550 mg PO BID #180 tab 01/19/21 07/10/21 Rx clotrimazole-betamethasone 1 1 applic TOPICAL BID PRN #45 g 02/07/21 07/10/21 Rx %-0.05 % topical cream lactulose 20 gram/30 mL oral 45 ml PO BID 30 Days #2700 ml 02/07/21 07/10/21 Rx solution pantoprazole 40 mg tablet,delayed 40 mg PO QAM 02/14/21 07/10/21 History release blood sugar diagnostic (OneTouch #100 ea 02/15/21 07/04/21 Rx Ultra Blue Test Strip) ferrous sulfate 325 mg (65 mg 325 mg PO Q OTHER DAY #30 tab 04/27/21 07/10/21 Rx iron) tablet,delayed release hydralazine 10 mg tablet 20 mg PO BID #120 tab 04/27/21 07/10/21 Rx insulin aspart U-100 100 unit/mL See Rx Instructions SQ TID #15 ml 04/27/21 07/10/21 Rx (3 mL) subcutaneous pen (Novolog Flexpen U-100 Insulin aspart) folic acid 1 mg tablet 1 mg PO BID #180 tab 05/14/21 07/10/21 Rx sodium bicarbonate 650 mg tablet 1,300 mg PO BID #180 tab 06/04/21 07/10/21 Rx ropinirole 2 mg tablet See Rx Instructions .ROUTE 06/15/21 07/10/21 Rx .COMPLEX #135 tab hydroxyzine HCl 25 mg tablet 25 mg PO TID PRN 06/27/21 07/10/21 History potassium chloride 10 mEq 10 meq PO DAILY #30 cap 06/30/21 07/10/21 Rx capsule,extended release insulin glargine 100 unit/mL (3 18 unit SUBCUT HS 07/10/21 07/10/21 History mL) subcutaneous pen (Basaglar KwikPen U-100 Insulin) teriparatide 20 mcg/dose (600 20 mcg SUBCUT DAILY 07/10/21 07/10/21 History mcg/2.4 mL) subcutaneous pen injector (Forteo) Patient History Medical History (Updated 07/11/21 @ 12:51 by Tarik Austin MD) Acute blood loss anemia Anemia of chronic disease Anxiety Bilateral high frequency sensorineural hearing loss CHF (congestive heart failure) Chronic kidney disease, stage 3 (moderate) CKD (chronic kidney disease) stage 4, GFR 15-29 ml/min Diverticular disease DM type 2 (diabetes mellitus, type 2) Duodenal ulcer Eczematid-like purpura of doucas and kapetanakis Esophageal varices Gastric ulcer GERD (gastroesophageal reflux disease) History of GI bleed 03/2020 History of recent blood transfusion (~06/2019) Hyperlipidemia Hypertension 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 Lower GI bleed Nausea and vomiting after administration of anesthetic agent On home oxygen therapy 2L prn for SOB Osteoarthritis Osteoporosis Pancytopenia Pleural effusion Psoriatic arthritis Right shoulder pain Risk for falls Surgical History H/O esophagogastroduodenoscopy 03/21/20 Dr. Shivani Carmen- EGD History of anesthesia reaction difficult to wake after bladder tack sx History of bilateral cataract extraction History of bladder surgery bladder tack History of colonoscopy History of esophagogastroduodenoscopy (EGD) multiple---last 06/22/19 Dr[place] Malena [place] [facility] [place] of hemiarthroplasty of right shoulder January 2018 post fracture History of repair of right rotator cuff History of revision of total shoulder arthroplasty (12/29/18) Right shoulder, 12/29/18 History of shoulder surgery (~11/2019) Had right total arthroplasty removed 11/2019 History of thoracentesis (~10/05/19) left History of tooth extraction all teeth S/P ORIF (open reduction internal fixation) fracture R shoulder, January 2018 S/P shoulder surgery (11/18/19) R TSA removal, I&D, placement of abx spacer Family History Grandmother (Paternal) Family history of diabetes mellitus Father COPD (chronic obstructive pulmonary disease) Mother Hypertension Family/Other Cancer Sister Ovarian cancer Other No family history of adverse response to anesthesia Denies family history of Prostate cancer Myocardial infarction Breast cancer Colorectal cancer Social History Smoking Status: Never smoker Tobacco Type: Cigarettes Age Started Using Tobacco: 17; Age Quit Using Tobacco: 31; packs per day: 1; Second Hand Exposure: No; Hx Alcohol Use: No Hx Substance Use: No Preferred Language: Urdu Communication Ability: Effective Visual Impairment: Limited Hearing Ability: Hard of Hearing Supervisor Electronics Inspection Required: No Beliefs That Will Affect Care: None marital status: Current Living Situation: Spouse Current Living Situation Comment: Lives with and son current occupational status: retired How many Children do You have: 2 Other Information That Helps Us Care for You: No Feels Safe at Home: Yes Childhood Exposure to Second-Hand Smoke: Yes Diet Comment: regular during the past year weight has: remained stable Dental Care, Regularly: No Physical Activity Frequency: Does not Exercise Seatbelt Use: always Sunscreen Use: Yes Do you think of yourself as: straight/heterosexual Gender Identity: Female Assistive Devices: Cane and Walker Review of Systems Constitutional: no fever and no chills Eyes: no dry eyes, no eye pain and no itchy eyes Ear, Nose, Mouth, Throat: no mouth lesions Integumentary: as per Subjective / HPI Hematologic / Lymphatic: + easy bleeding and + easy bruising Physical Exam Physical Exam: General Appearance:Well developed, well-nourished and in no acute distress Psych:Alert, Oriented and Appropriate Skin Type:2 Scalp/Hair: Face:No abnormalities noted. Eyelids/Ocular Mucosa: No abnormalities noted. Lips/Teeth/Gums: No abnormalities noted. Neck: No abnormalities noted. Right Lower Extremity:nonblanchable, nonpalpable pinpoint red macules coa lescing into linear patches with overlying xerosis/eczema craquele on the dorsal foot, comer, distal thigh Left Lower Extremity:nonblanchable, nonpalpable pinpoint red macules coalescing into linear patches with overlying xerosis/eczema craquele on the dorsal foot, comer, distal thigh Back:+xerosis; no sign of active dermatitis Buttocks/Groin/Genitalia: Not examined. Right Upper Extremity:poorly-demarcated, erythematous, scaly thin plaques on the wrist, forearm Left Upper Extremity:poorly-demarcated, erythematous, scaly thin plaques on the wrist, forearm Chest/Breast/Axillae:+xerosis Abdomen:+xerosis Other exam notes: Palms/soles clear. Results & Data ([facility]) Vital Signs (Past 12 Hours) Vital Signs Temp Pulse Pulse Pulse Resp BP BP 07/11/21 11:27 36.5 C 66 18 153/68 H 07/11/21 07:49 36.8 C 70 18 163/68 H 07/11/21 07:00 66 07/11/21 04:00 36.7 C 63 18 133/65 Pulse Ox 07/11/21 11:27 94 07/11/21 07:49 91 07/11/21 07:00 07/11/21 04:00 93 Laboratory Results 07/11/21 07/11/21 07/11/21 Range/Units 12:40 09:10 09:10 WBC 2.39 L (4.8-10.8) K/uL RBC 2.96 L (4.2-5.4) M/uL Hgb 8.4 L (12.0-16.0) g/dL Hct 26.3 L (37-47) % MCV 88.9 (80-100) fL MCH 28.4 (25-34) pg MCHC 31.9 L (32-36) g/dL RDW Std Deviation 51.8 H (36.4-46.3) fL RDW Coeff of Karina 16.1 H (11.5-14.5) % Plt Count 30 L (130-400) K/uL MPV 9.9 (7.4-10.4) fL Immature Gran % (Auto) 0.0 % Neut % (Auto) 64.8 % Lymph % (Auto) 22.6 % [place] % (Auto) 8.4 % Eos % (Auto) 3.8 % Baso % (Auto) 0.4 % Neut # (Auto) 1.55 (1.4-6.5) K/uL Lymph # (Auto) 0.54 L (1.2-3.4) K/uL [place] # (Auto) 0.20 (0.11-0.59) K/uL Eos # (Auto) 0.09 (0-0.5) K/uL Baso # (Auto) 0.01 (0-0.2) K/uL Immature Gran # (Auto) 0.00 (0.00-0.02) K/uL Sodium 144 (136-145) mmol/L Potassium 4.1 (3.5-5.1) mmol/L Chloride 113 H (98-107) mmol/L Carbon Dioxide 20 L (21-32) mmol/L Anion Gap 11.0 (3-11) BUN 48 H (7-18) mg/dl Creatinine 2.78 H D (0.6-1.2) mg/dl Est Cr Clr Drug Dosing 19.1 ml/min Est GFR ( Amer) 19.9 ml/min Est GFR (Non-Af Amer) 17.2 ml/min BUN/Creatinine Ratio 17.3 (10-20) Glucose 206 H (70-99) mg/dl POC Glucose 193 H (70-99) mg/dl Calcium 8.4 L (8.5-10.1) mg/dl Magnesium (1.8-2.4) mg/dl Total Bilirubin 1.3 H (0.2-1) mg/dl AST 35 (15-37) U/L ALT 24 (12-78) U/L Alkaline Phosphatase 135 H (45-117) U/L Troponin I (0-0.045) ng/ml C-Reactive Protein (0-0.29) mg/dl NT-Pro-B Natriuret Pep (0-900) pg/ml Total Protein 6.8 (6.4-8.2) gm/dl Albumin 2.1 L (3.4-5.0) gm/dl Globulin 4.7 H (2.5-4.0) gm/dl Albumin/Globulin Ratio 0.4 L (0.9-2) TSH (0.300-4.500) uIu/ml Urine Color Urine Appearance (Clear) Urine pH (4.5-7.5) Ur Specific [place] (1.000-1.030) Urine Protein (Negative) Urine Glucose (UA) (Negative) Urine Ketones (Negative) Urine Blood (Negative) Urine Nitrite (Negative) Urine Bilirubin (Negative) Urine Urobilinogen (Negative) Ur Leukocyte Esterase (Negative) Urine WBC (Auto) (0-5) /hpf Urine RBC (Auto) (0-4) /hpf U Hyaline Cast (Auto) (0-5) /lpf U Epithel Cells (Auto) (0-5) /lpf Urine Bacteria (Auto) (Negative) 07/11/21 07/10/21 07/10/21 Range/Units 07:47 20:06 18:34 WBC (4.8-10.8) K/uL RBC (4.2-5.4) M/uL Hgb (12.0-16.0) g/dL Hct (37-47) % MCV (80-100) fL MCH (25-34) pg MCHC (32-36) g/dL RDW Std Deviation (36.4-46.3) fL RDW Coeff of Karina (11.5-14.5) % Plt Count (130-400) K/uL MPV (7.4-10.4) fL Immature Gran % (Auto) % Neut % (Auto) % Lymph % (Auto) % [place] % (Auto) % Eos % (Auto) % Baso % (Auto) % Neut # (Auto) (1.4-6.5) K/uL Lymph # (Auto) (1.2-3.4) K/uL [place] # (Auto) (0.11-0.59) K/uL Eos # (Auto) (0-0.5) K/uL Baso # (Auto) (0-0.2) K/uL Immature Gran # (Auto) (0.00-0.02) K/uL Sodium (136-145) mmol/L Potassium (3.5-5.1) mmol/L Chloride (98-107) mmol/L Carbon Dioxide (21-32) mmol/L Anion Gap (3-11) BUN (7-18) mg/dl Creatinine (0.6-1.2) mg/dl Est Cr Clr Drug Dosing ml/min Est GFR ( Amer) ml/min Est GFR (Non-Af Amer) ml/min BUN/Creatinine Ratio (10-20) Glucose (70-99) mg/dl POC Glucose 136 H 185 H 98 (70-99) mg/dl Calcium (8.5-10.1) mg/dl Magnesium (1.8-2.4) mg/dl Total Bilirubin (0.2-1) mg/dl AST (15-37) U/L ALT (12-78) U/L Alkaline Phosphatase (45-117) U/L Troponin I (0-0.045) ng/ml C-Reactive Protein (0-0.29) mg/dl NT-Pro-B Natriuret Pep (0-900) pg/ml Total Protein (6.4-8.2) gm/dl Albumin (3.4-5.0) gm/dl Globulin (2.5-4.0) gm/dl Albumin/Globulin Ratio (0.9-2) TSH (0.300-4.500) uIu/ml Urine Color Urine Appearance (Clear) Urine pH (4.5-7.5) Ur Specific [place] (1.000-1.030) Urine Protein (Negative) Urine Glucose (UA) (Negative) Urine Ketones (Negative) Urine Blood (Negative) Urine Nitrite (Negative) Urine Bilirubin (Negative) Urine Urobilinogen (Negative) Ur Leukocyte Esterase (Negative) Urine WBC (Auto) (0-5) /hpf Urine RBC (Auto) (0-4) /hpf U Hyaline Cast (Auto) (0-5) /lpf U Epithel Cells (Auto) (0-5) /lpf Urine Bacteria (Auto) (Negative) 07/10/21 07/10/21 Range/Units 12:44 11:58 WBC (4.8-10.8) K/uL RBC (4.2-5.4) M/uL Hgb (12.0-16.0) g/dL Hct (37-47) % MCV (80-100) fL MCH (25-34) pg MCHC (32-36) g/dL RDW Std Deviation (36.4-46.3) fL RDW Coeff of Karina (11.5-14.5) % Plt Count (130-400) K/uL MPV (7.4-10.4) fL Immature Gran % (Auto) % Neut % (Auto) % Lymph % (Auto) % [place] % (Auto) % Eos % (Auto) % Baso % (Auto) % Neut # (Auto) (1.4-6.5) K/uL Lymph # (Auto) (1.2-3.4) K/uL [place] # (Auto) (0.11-0.59) K/uL Eos # (Auto) (0-0.5) K/uL Baso # (Auto) (0-0.2) K/uL Immature Gran # (Auto) (0.00-0.02) K/uL Sodium (136-145) mmol/L Potassium (3.5-5.1) mmol/L Chloride (98-107) mmol/L Carbon Dioxide (21-32) mmol/L Anion Gap (3-11) BUN (7-18) mg/dl Creatinine (0.6-1.2) mg/dl Est Cr Clr Drug Dosing ml/min Est GFR ( Amer) ml/min Est GFR (Non-Af Amer) ml/min BUN/Creatinine Ratio (10-20) Glucose (70-99) mg/dl POC Glucose (70-99) mg/dl Calcium (8.5-10.1) mg/dl Magnesium 2.2 (1.8-2.4) mg/dl Total Bilirubin (0.2-1) mg/dl AST (15-37) U/L ALT (12-78) U/L Alkaline Phosphatase (45-117) U/L Troponin I < 0.015 (0-0.045) ng/ml C-Reactive Protein 0.95 H (0-0.29) mg/dl NT-Pro-B Natriuret Pep 5071 H (0-900) pg/ml Total Protein (6.4-8.2) gm/dl Albumin (3.4-5.0) gm/dl Globulin (2.5-4.0) gm/dl Albumin/Globulin Ratio (0.9-2) TSH 3.830 (0.300-4.500) uIu/ml Urine Color Yellow Urine Appearance Clear (Clear) Urine pH 8.0 H (4.5-7.5) Ur Specific [place] 1.009 (1.000-1.030) Urine Protein 1+ H (Negative) Urine Glucose (UA) Negative (Negative) Urine Ketones Negative (Negative) Urine Blood 1+ H (Negative) Urine Nitrite Negative (Negative) Urine Bilirubin Negative (Negative) Urine Urobilinogen Negative (Negative) Ur Leukocyte Esterase Negative (Negative) Urine WBC (Auto) 0 (0-5) /hpf Urine RBC (Auto) 5-10 H (0-4) /hpf U Hyaline Cast (Auto) 0 (0-5) /lpf U Epithel Cells (Auto) 5-10 H (0-5) /lpf Urine Bacteria (Auto) Negative (Negative) Diagnostic Findings Reviewed in chart. Medications Administered MAR reviewed in chart. PG Care Time/CCT Total # of Minutes Spent Total Time Spent with Patient: Total time spent is greater than 50% in coordination of care (as documented) at patient's floor/unit and/or counseling patient: Coding Level of Care Code 67361 Initial Inpt Care Lvl 2 Diagnoses Eczematid-like purpura of doucas and kapetanakis L98.8
[2021-07-11] MEDS: TRIAMCINOLONE ACET 0.1% OINT 80 GM TUBE EXT SCH ×2 (14:10→20:28)
[2021-07-11] MEDS ORDERED: rOPINIRole HCL 1 MG TABLET PO SCH (16:00)
[2021-07-11] MEDS: rOPINIRole HCL 1 MG TABLET PO SCH (20:28)
[2021-07-11] MEDS: INSULIN GLARGINE SOLOSTAR 100 UNITS/ML 3 ML PEN SC SCH (20:29)
--- NOTE | 2021-07-12 06:29 | Electrocardiogram Report ---
Test Reason : Blood Pressure : / mmHG Vent. Rate : 067 BPM Atrial Rate : 067 BPM P-R Int : 198 ms QRS Dur : 080 ms QT Int : 466 ms P-R-T Axes : 063 065 034 degrees QTc Int : 492 ms Normal sinus rhythm Prolonged QT Abnormal ECG When compared with ECG of 27-JUN-2021 11:37, No significant change was found Confirmed by Gentry Cook ([id number]) on 07/12/2021 6:28:44 AM Referred By: Confirmed By:Gentry Cook
[2021-07-12] MEDS: INSULIN ASPART 100 UNITS/ML 3 ML PEN SC SCH ×2 (08:11→13:19)
[2021-07-12] MEDS: PANTOprazole 40 MG TAB PO SCH (08:12)
[2021-07-12] MEDS: SODIUM BICARBONATE 650 MG TAB PO SCH (08:12)
[2021-07-12] MEDS: FOLIC ACID 1 MG TAB PO SCH (08:12)
[2021-07-12] MEDS: rifAXIMin 550 MG TABLET PO SCH (08:12)
[2021-07-12] MEDS: hydrALAZINE 10 MG TAB PO SCH (08:12)
[2021-07-12] MEDS: carvediloL 12.5 MG TAB PO SCH (08:12)
[2021-07-12] MEDS: NYSTATIN POWDER 15GM BTL EXT SCH ×2 (08:13→13:20)
[2021-07-12] MEDS: TRIAMCINOLONE ACET 0.1% OINT 80 GM TUBE EXT SCH (08:13)
[2021-07-12 09:03] LABS: Hematocrit (blood only) 27.2 % (37-47); Hemoglobin 8.7 g/dL (12.0-16.0); Mean Corpuscular Hemoglobin 28.2 pg (25-34); Mean Corpuscular Volume 88.3 fL (80-100); RDW Coefficient of Variation 16.1 % (11.5-14.5); RDW Standard Deviation 51.3 fL (36.4-46.3); Red Blood Count 3.08 M/uL (4.2-5.4); White Blood Count 3.13 K/uL (4.8-10.8)
[2021-07-12 09:10] LABS: Mean Platelet Volume 9.1 fL (7.4-10.4); Platelet Count 32 K/uL (130-400)
[2021-07-12 09:30] LABS: BUN Creatinine Ratio 18.9 (10-20); Calcium 8.4 mg/dl (8.5-10.1); Creatinine Clr Calc Pharmacy 20.8 ml/min; Est GFR (African American) 21.9 ml/min; Est GFR (Non-African American) 18.9 ml/min; Potassium 3.8 mmol/L (3.5-5.1)
--- NOTE | 2021-07-12 09:45 | Pharmacy Report ---
Pharmacy Glycemic Short Note 2 - Date of Service July 12, 2021 - Glycemic Short BSG Results (Last 24 hours): 07/11/21 07/11/21 07/11/21 09:10 12:40 16:59 Glucose 206 H POC Glucose 193 H 152 H 07/11/21 07/12/21 07/12/21 19:58 07:49 08:39 Glucose 103 H POC Glucose 166 H 77 OUTPATIENT ANTIDIABETIC REGIMEN: * Lantus 18 units SC HS * Novolog sliding scale insulin * HbA1c: 9.1% (06/28/21) ASSESSMENT: * BR is a 66 year old female admitted on 07/10/21 with bilateral leg swelling and rash * Patient's pertinent PMH includes CKD, CHF, HTN, hyperlipidemia, liver cirrhosis, and type 2 DM (which based on A1c of 9.1% is not very well controlled) * BSGs have been reasonably well controlled so far during this admission, 136, 193, 152, and 166 mg/dL yesterday * Fasting BSG of 77 mg/dL this morning, which is down from 136 mg/dL yesterday * Will consider possible basal reduction this evening PLAN FOR INPATIENT GLYCEMIC CONTROL: * Basal insulin - decrease * Lantus 11 units SC HS * Bolus insulin - continue * NovoLog per scale ACHS or Q6hrs while NPO * Goal Range: Low 110 mg/dL - High 140 mg/dL * Correction Factor: 30 mg/dL/unit * Nutritional / Prandial insulin per carb ratio of 1 unit per 12 grams CHO consumed PLAN FOR DISCHARGE: * HbA1c of 9.1% suggests poor outpatient glycemic control as an outpatient * Goal HbA1c for most patients would be less than 7%, could consider less than 8% in this case due to significant comorbidities * Of note: patient has poor renal function (eCrCl < 30 mL/min at baseline) * Will follow inpatient insulin need and make recommendations accordingly * Patient may benefit from set dose of insulin with meals in addition to sliding scale
[2021-07-12] MEDS: LACTULOSE SYRUP 30 GM/45 ML UDP PO SCH (09:47)
[2021-07-12] MEDS ORDERED: FUROSEMIDE 40 MG TAB PO ONE (14:30)
--- NOTE | 2021-07-12 17:10 | Discharge Summary ---
Date of Service July 12, 2021 Admission HPI Per Admitting Provider Angela Sherman is a 66 year old female with MAE liver cirrhosis who presents to the ER with bilateral leg edema and itchy rash. She was most recently admitted to [facility] from June 27 - 2020 due to generalized weakness, fatigue, nausea and vomiting. On this occasion she was diagnosed with acute worsening of her chronic pancytopenia and was given 2 units packed RBCs. Fecal occult blood was negative. She was also prescribed ceftriaxone and switched to cefdinir on discharge for possible UTI. She finished her antibiotics last Saturday (missed taking it for a few days as was not available at her pharmacy). Furosemide was discontinued as she was dehydrated on admission (previously on 40mg PO daily). Since discharge she has been slowly increasing her weight at home with worsening b/l lower extremity edema. 3-4 days ago she started having an intensely itchy rash on her lower extremities which has now spread all over her body but mainly on her lower extremities. 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 In the ER there was concern for bilateral lower extremity cellulitis and she was given one dose of cefepime 2g IV. She has missed her morning anti-hypertensives and BP 187/73 in the ER up to 226/93. She was given furosemide 60mg IV and hydralazine 10mg IV for this. She was referred to medicine for admission and ongoing management of cellulitis, fluid overload and hypertensive urgency. Principal Diagnosis Eczematid-like purpura of [place] and [place] Discharge Exam Constitutional WD/WN, vitals as above Eyes EOM intact bilaterally; no conjunctival abnormality ENMT external ear and nose normal, oropharynx normal Neck trachea midline, no thyromegaly normal visual inspection Respiratory normal respiratory effort, lungs clear to auscultation no respiratory distress Cardiovascular RRR, no murmur, no edema Gastrointestinal (Abdomen) Inspection/Auscultation: abdomen normal to inspection; abdomen not distended Musculoskeletal no cyanosis or clubbing, extremities motor strength 5/5 Skin + rash (Bilateral palpable purpura on legs, thighs) Neurologic moves all extremities and awake Psychiatric Orientation: alert, oriented to person and cooperative Discharge Data Allergies Allergy/AdvReac Type Severity Reaction Status Date / Time sulfamethoxazole Allergy Intermediate RASH Verified 07/10/21 14:14 trimethoprim Allergy Intermediate RASH Verified 07/10/21 14:14 Sulfa (Sulfonamide Allergy Rash Unverified 07/10/21 14:14 Antibiotics) amlodipine AdvReac Intermediate confusion Verified 07/10/21 14:14 adhesive tape AdvReac Mild ITCHING Verified 07/10/21 14:14 Consultations 07/10/21 14:16 ED Decision to Admit Stat 07/10/21 21:24 Consult Dermatology Routine Ordered Studies 07/10/21 11:25 US venous doppler LE Stat Hospital Course (1) Rash: Per dermatology: Eczematid-like purpura of [place] and [place]. -> This is a capillaritis related to swelling + thrombocytopenia. - Continue topical steroids only on lower extremities for 2-3 weeks. Discharged with lotion. Can follow up PRN with dermatology. (2) Edema: Suspect mostly right sided with severe pulmonary hypertension on prior TTE. - Lasix 60mg IV given in ER and Lasix 40 mg IV on 07/11. - Defer further Lasix as swelling isn't that bad, and Cr is rising. - Discharged on home Lasix 40 mg PO daily. Will get labs next week with nephrology. (3) CKD (chronic kidney disease) stage 4, GFR 15-29 ml/min: Baseline Cr ~2.4 - 2.6. - Up to Cr of 2.7 after IV diuresis - Monitor (4) Acute on chronic diastolic (congestive) heart failure: As above (5) Hypertensive urgency: Possibly secondary to hypervolemia and missing her usual morning medications. - Continue home carvedilol 12.5mg PO BID (extra dose now) & hydralazine 20mg PO BID - Hydralazine 10mg Q4H PRN for sBP > 180 (6) Tinea corporis: Under bilateral breasts. - Continue nystatin powder TID (7) Pancytopenia: Secondary to liver cirrhosis, follow up with hematology as outpatient. At baseline. - Monitor (8) DM type 2 (diabetes mellitus, type 2): HbA1C was 9.1% in June. 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 - Continue her usual lactulose 20g BID, rifaximin 550mg PO BID (10) DVT prophylaxis: SCDs - Low DVT risk per admission calculator Total Time Total Time Spent Total Time Spent (In Minutes): 35 Discharge Plan Discharge Items Patient Disposition: Home - Self-Care Reason For Visit: PAINFUL RASH, PANCYTOPENIA Discharge Diagnosis: Rash Condition on Discharge: Fair Activity: Resume your previous activity Non-emergency contact: Primary Care Provider Call non-emergency contact if: your pain is not controlled Follow-up/Referrals: Rocío Alonso DO [Primary Care Provider] - 07/31/21 10:20 am Diet: Low Sodium (2gm) Addtl Attending Provider Instructions: Ms. Sherman, You were admitted to the hospital with a rash on your legs. The spindle tester determined this to be from your low platelets and some of the swelling in your legs from stopping the Lasix. Dr. Austin prescribed a cream that will help over the next 2-3 weeks. Please also use a moisturizer two times a day to keep the skin from getting dry. Your blood counts have been stable here. We would recommend you restart your Lasix to avoid leg swelling. Please get labs with your PCP or premium card cancellation clerk next week to be sure your kidneys are staying stable. Pending Studies at Discharge: No Stand-Alone Forms: [facility] Organ[facility], Smoking Cessation Medications and DC Order Prescriptions: New nystatin [Nystop] 100,000 unit/gram Powder 1 applic EXT TID Qty: 15 RF: 0 triamcinolone acetonide 0.1 % Ointment 1 applic EXT BID Qty: 30 RF: 0 furosemide 40 mg tablet 40 mg PO DAILY Qty: 30 RF: 0 Continued carvedilol 12.5 mg tablet 12.5 mg PO BID Qty: 180 RF: 1 Xifaxan 550 mg tablet 550 mg PO BID Qty: 180 RF: 1 (DME) OneTouch Ultra Blue Test Strip Strip See Rx Instructions .ROUTE .MEDSUPPLY Qty: 100 RF: 1 folic acid 1 mg tablet 1 mg PO BID Qty: 180 RF: 1 sodium bicarbonate 650 mg tablet 1,300 mg PO BID Qty: 180 RF: 1 ropinirole 2 mg tablet See Rx Instructions .ROUTE .COMPLEX Qty: 135 RF: 1 (DME) Dexcom G6 Transmitter Device See Rx Instructions .ROUTE .MEDSUPPLY Qty: 1 RF: 0 (DME) Dexcom G6 Sensor Device See Rx Instructions .ROUTE .MEDSUPPLY Qty: 3 RF: 0 lactulose 20 gram/30 mL solution 45 ml PO BID 30 Days Qty: 2700 RF: 0 ferrous sulfate 325 mg (65 mg iron) tablet,delayed release (DR/EC) 325 mg PO Q OTHER DAY Qty: 30 RF: 5 insulin aspart U-100 [Novolog Flexpen U-100 Insulin] 100 unit/mL (3 mL) insulin pen See Rx Instructions SQ TID Qty: 15 RF: 3 hydralazine 10 mg tablet 20 mg PO BID Qty: 120 RF: 1 hydroxyzine HCl 25 mg tablet 25 mg PO TID PRN (Reason: Itching) RF: 0 potassium chloride 10 mEq capsule, extended release 10 meq PO DAILY Qty: 30 RF: 0 pantoprazole 40 mg tablet,delayed release (DR/EC) 40 mg PO QAM RF: 0 Forteo 20 mcg/dose (600mcg/2.4mL) Pen Injector 20 mcg SUBCUT DAILY RF: 0 Basaglar KwikPen U-100 Insulin 100 unit/mL (3 mL) insulin pen 18 unit subcut HS RF: 0 Discontinued clotrimazole-betamethasone 1-0.05 % cream 1 applic topical BID PRN (Reason: Skin Irritation) Qty: 45 RF: 0 Discharge Orders: Discharge Order (Routine); Ordered 07/12/21 Ordered By: Fernando Williamson Admission Data Admit Date/Time: 07/10/21 15:45 Attending Provider: Fernando Williamson Admit Provider: Willis Flores Primary Care Provider: Rocío Alonso Other Providers: Tarik Austin ; Fernando Williamson ; Jacob Caballero [facility] Other Interventions: Discharge Summary Assessment (RN) Last Done: 07/12/21 15:02 Coding Level of Care Code D/C DAY MANAGEMENT >30 MINS Diagnoses Rash R21 Edema R60.9 Edema type: unspecified CKD (chronic kidney disease) stage 4, GFR 15-29 ml/min N18.4 Acute on chronic diastolic (congestive) heart failure I50.33 Hypertensive urgency I16.0 Tinea corporis B35.4 Pancytopenia D61.818 DM type 2 (diabetes mellitus, type 2) E11.65 Diabetes mellitus oil heaterman insulin use: without mcfp use Diabetes mellitus complication status: with hyperglycemia 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 K75.81; K74.60 DVT prophylaxis Z29.9
[2021-07-12] MEDS ORDERED: INSULIN GLARGINE SOLOSTAR 100 UNITS/ML 3 ML PEN SC SCH (21:00)
== END 2021-07-12 15:47 | disposition home or self-care (01) | DRG 291 ==
LOC: ED 09:42 → EDINP 15:45 → INTOOBSV 15:45 → SUATTDRO 15:45 → EDINP 17:30 → 2N 20:25

== ENCOUNTER 2021-07-19 12:44 | Inpatient (IN) ==
[2021-07-19] MEDS ORDERED: SODIUM CHLORIDE 0.9% 500 ML IV ONE (13:19)
[2021-07-19] MEDS ORDERED: ALBUTEROL HFA 8 GM INHALER INH ONE (13:19)
[2021-07-19] MEDS ORDERED: ACETAMINOPHEN 65 ML IV ONE (13:19)
[2021-07-19] MEDS ORDERED: FAMOTIDINE 20MG IV PUSH 20 MG/5 ML SYR IV STA (13:20)
[2021-07-19] MEDS ORDERED: ONDANSETRON INJ 2 MG/ML 2 ML VIAL IV STA (13:20)
[2021-07-19] MEDS ORDERED: ACETAMINOPHEN 1000 MG/100 ML IV IV ONE (13:35)
[2021-07-19 14:14] LABS: Hematocrit (blood only) 23.7 % (37-47); Hemoglobin 7.5 g/dL (12.0-16.0); Mean Corpuscular Hemoglobin 28.2 pg (25-34); Mean Corpuscular Hgb Conc 31.6 g/dL (32-36); Mean Corpuscular Volume 89.1 fL (80-100); RDW Coefficient of Variation 16.8 % (11.5-14.5); RDW Standard Deviation 54.7 fL (36.4-46.3); Red Blood Count 2.66 M/uL (4.2-5.4); White Blood Count 3.26 K/uL (4.8-10.8)
--- NOTE | 2021-07-19 14:29 | XRay Report ---
XR chest 1V portable CLINICAL HISTORY: Chest Pain. COMPARISON STUDY: 07/10/2021 TECHNIQUE: 1 view of the chest FINDINGS: Single frontal view of the chest demonstrates the heart to again be mildly enlarged. There is indisti nctness of the central hilar vessels with peribronchial cuffing present. Findings are characteristic of central vascular congestion. There is no evidence for peripheral interstitial edema. There is no e vidence for pleural effusion. No confluent alveolar opacities are seen. There is no acute osseous pat hology. The patient is again status post right shoulder surgery. IMPRESSION: Cardiomegaly with evidence for mild central vascular congestion. ACT 112: Negative or not required by law. Electronically signed by: Shree Ziegler M.D. 07/19/2021 2:28 PM
[2021-07-19 14:31] LABS: INR 1.5 (0.9-1.1); Prothrombin Time 14.5 Seconds (9.0-12.0)
[2021-07-19 14:37] LABS: Albumin Level 2.3 gm/dl (3.4-5.0); Aspartate Aminotransferase 46 U/L (15-37); BUN Creatinine Ratio 20.9 (10-20); Blood Urea Nitrogen 52 mg/dl (7-18); Calcium 8.7 mg/dl (8.5-10.1); Carbon Dioxide 24 mmol/L (21-32); Chloride 113 mmol/L (98-107); Creatinine Clr Calc Pharmacy 20.4 ml/min; Est GFR (African American) 22.6 ml/min; Est GFR (Non-African American) 19.5 ml/min; Glucose 222 mg/dl (70-99); Lipase 110 U/L (73-393); Magnesium 2.1 mg/dl (1.8-2.4); Potassium 3.9 mmol/L (3.5-5.1); Sodium 144 mmol/L (136-145)
[2021-07-19 14:38] LABS: Mean Platelet Volume 10.9 fL (7.4-10.4); Platelet Count 37 K/uL (130-400)
[2021-07-19 14:39] LABS: Eosinophils # (auto) 0.02 K/uL (0-0.5); Eosinophils % (auto) 0.6 %; Immature Granulocytes # (auto) 0.01 K/uL (0.00-0.02); Immature Granulocytes % (auto) 0.3 %; Lymphocytes # (auto) 0.34 K/uL (1.2-3.4); Lymphocytes % (auto) 10.4 %; Monocytes # (auto) 0.39 K/uL (0.11-0.59); Neutrophils % (auto) 76.7 %
[2021-07-19 14:43] LABS: Alanine Aminotransferase 27 U/L (12-78); Albumin Globulin Ratio 0.4 (0.9-2); Alkaline Phosphatase 138 U/L (45-117); Bilirubin,Total 1.6 mg/dl (0.2-1); Globulin 5.2 gm/dl (2.5-4.0); Phosphorus 2.8 mg/dl (2.5-4.9); Total Protein 7.5 gm/dl (6.4-8.2); Troponin I < 0.015 ng/ml (0-0.045)
--- NOTE | 2021-07-19 14:47 | XRay Report ---
KUB CLINICAL HISTORY: Nausea and vomiting. Diarrhea. Covid. FINDINGS: 2 AP, portable, supine abdominal radiographs are compared to study dated 06/27/2021 and ottoniel elated with abdominal CT dated 06/29/2021. There is no radiographic evidence of bowel obstruction. Th ere is gaseous distention of the colon with moderate constipation. No evidence of intraperitoneal amy e air is seen on these supine images. There are no abnormal abdominal calcifications. The skeletal st ructures are osteopenic and appear intact noting mild to moderate lumbosacral spondylosis. IMPRESSION: 1. There is gaseous distention of the colon and moderate constipation. 2. There is no radiographic evidence of high-grade bowel obstruction. Electronically signed by: Alexander Feldman M.D. 07/19/2021 2:46 PM
[2021-07-19] MEDS ORDERED: dexAMETHasone**PF** 10 MG/ML VIAL IV ONE (15:08)
--- NOTE | 2021-07-19 15:25 | Emergency Department Note ---
Impression & Plan COVID-19, Nausea & vomiting, Borderline low O2 saturation ED Provider Note NAME: GARDENIA PICHARDO AGE: 66 SEX: F ARRIVES VIA: Ambulance INFORMANT: Patient ED PROVIDER(S): Levi Mae MD CHIEF COMPLAINT: Covid-19, nausea/vomiting. PLAN: Disposition: Admit MEDICAL DECISION MAKING: The patient is a pleasant 66-year-old woman with a past medical history of Fowler cirrhosis, CKD, hypertension, hyperlipidemia, type 2 diabetes on insulin, hepatic encephalopathy, pancytopenia who presents to the emergency department for worsening cough with associated nausea/vomiting/dry heaving and diarrhea that is evolved over the past several days diagnosed with COVID-19 in the setting of being exposed to her son who also had COVID-19 and lives in the home with them. She is vaccinated for COVID-19 several months ago but has yet to get her booster. Her similarly is vaccinated with 2 dose series. He denies having any symptoms. She reports feeling mild shortness of breath but her more severe symptoms are related to her continued nausea and vomiting where she reports she is unable to take her medications. She denies chest pain. On arrival the patient is uncomfortable, acute on chronic ill-appearing but no acute distress, with temperature of 37.9 and blood pressure 190s/70s in the setting of her dry heaving. Her O2 saturation is 90-91% which historically she has had similar values in the past. Vital signs are otherwise stable. She rashad ears clinically dry. Her abdomen is nontender. WBC 3.2, H/H 7.5/23.7 and platelets 37K all proximate to prior range of values in the setting of chronic pancytopenia in the setting of her cirrhosis. INR is 1.5 similar to prior. Creatinine 2.5 similar to prior values in the setting of CKD. Glucose 200s without metabolic acidosis. LFTs similar to prior. Troponin negative/undetectable. Lipase not elevated. COVID-19 PCR continues to be positive. Given the patient's comorbidities with uncontrolled GI symptoms patient is in agreement with plan for admission. O2 saturation is low normal for the patient and so was placed on 2 L nasal cannula and ordered for 6 mg of dexamethasone. Case was [place] [facility] [place] who will evaluate the patient for admission. Triage Nursing notes reviewed and agree them. prior medical records reviewed Vital Signs: reviewed and remarkable for hypertension. Differential diagnosis: Infection, dehydration, metabolic abnormality, hypo/hyperglycemia, electrolyte disturbance, anemia, hypoxia, cardiac sources, intracerebral event, toxicologic, neurologic, as well as other pathologies. ER treatment provided: See below. Diagnostics interpreted by me: ECG: Normal sinus rhythm, 72 bpm, no ectopy, no overt ST elevation or depression, QTC 481, QRS 80. Cardiac Monitoring: An order for continuous cardiac monitoring was placed and demonstrated Normal sinus rhythm, 72 bpm, no ectopy. Laboratory studies: see below Imaging studies: See below Consultation(s): Dr. Mejia, [facility], who will evaluate the patient for admission. HPI: The patient is a pleasant 66-year-old woman with a past medical history of Fowler cirrhosis, CKD, hypertension, hyperlipidemia, type 2 diabetes on insulin, hepatic encephalopathy, pancytopenia who presents to the emergency department for worsening cough with associated nausea/vomiting/dry heaving and diarrhea ananya t is evolved over the past several days diagnosed with COVID-19 in the setting of being exposed to her son who also had COVID-19 and lives in the home with them. She is vaccinated for COVID-19 several months ago but has yet to get her booster. Her similarly is vaccinated with 2 dose series. He denies having any symptoms. She reports feeling mild shortness of breath but her more severe symptoms are related to her continued nausea and vomiting where she reports she is unable to take her medications. She denies chest pain. ROS: See above HPI for pertinent positives & negatives. A total of 10 systems reviewed and were otherwise negative. PAST MEDICAL HISTORY: see Below PAST SURGICAL HISTORY: see Below FAMILY HISTORY:See Below SOCIAL HISTORY: see Below HOME MEDICATIONS: see Below ALLERGIES: see Below VITALS: see Below PHYSICAL EXAMINATION: GENERAL: Awake, alert, acute on chronically ill-appearing, in no distress HENT: Normocephalic, atraumatic. Oropharynx with dry mucous membranes and otherwise unremarkable. EYES: Normal conjunctiva. Sclera non-icteric. NECK: Supple. No nuchal rigidity. FROM. No JVD. RESPIRATORY: Diminished at the bases, clear to auscultation. CARDIAC: Regular rate, normal rhythm. Extremities warm and well perfused. Pulses equal. ABDOMEN: Soft, non-distended. No tenderness to palpation. No rebound or guarding. No masses. RECTAL: Deferred. MUSCULOSKELETAL: Chest examination reveals no tenderness. The back is symmetrical on inspection without obvious abnormality. There is no CVA tenderness to palpation. No joint edema. LOWER EXTREMITIES: Calves are equal size bilaterally and non-tender. No edema. No discoloration. NEURO: Normal sensorium. No sensory or motor deficits noted. SKIN: No rash or jaundice noted. Levi Mae MD Past Med/Surg History Medical History Acute blood loss anemia Anemia of chronic disease Anxiety Bilateral high frequency sensorineural hearing loss CHF (congestive heart failure) Chronic kidney disease, stage 3 (moderate) CKD (chronic kidney disease) stage 4, GFR 15-29 ml/min Diverticular disease DM type 2 (diabetes mellitus, type 2) Duodenal ulcer Eczematid-like purpura of [place] and [place] Esophageal varices Gastric ulcer GERD (gastroesophageal reflux disease) History of GI bleed 03/2020 History of recent blood transfusion (~06/2019) Hyperlipidemia Hypertension Liver cirrhosis secondary to FOWLER Lower GI bleed Nausea and vomiting after administration of anesthetic agent On home oxygen therapy 2L prn for SOB Osteoarthritis Osteoporosis Pancytopenia Pleural effusion Psoriatic arthritis Right shoulder pain Risk for falls Surgical History H/O esophagogastroduodenoscopy 03/21/20 Dr. Shivani Carmen- EGD History of anesthesia reaction difficult to wake after bladder tack sx History of bilateral cataract extraction History of bladder surgery bladder tack History of colonoscopy History of esophagogastroduodenoscopy (EGD) multiple---[place] 06/22/19 [place] [facility] [place] of hemiarthroplasty of right shoulder January 2018 post fracture History of repair of right rotator cuff History of revision of total shoulder arthroplasty (12/29/18) Right shoulder, 12/29/18 History of shoulder surgery (~11/2019) Had right total arthroplasty removed 11/2019 History of thoracentesis (~10/05/19) left History of tooth extraction all teeth S/P ORIF (open reduction internal fixation) fracture R shoulder, January 2018 S/P shoulder surgery (11/18/19) R TSA removal, I&D, placement of abx spacer Family History Grandmother (Paternal) Family history of diabetes mellitus Father COPD (chronic obstructive pulmonary disease) Mother Hypertension Family/Other Cancer Sister Ovarian cancer Other No family history of adverse response to anesthesia Denies family history of Prostate cancer Myocardial infarction Breast cancer Colorectal cancer Social History Smoking Status: Former smoker Tobacco Type: Cigarettes Age Started Using Tobacco: 17; Age Quit Using Tobacco: 31; packs per day: 1; Second Hand Exposure: No; Hx Alcohol Use: No Hx Substance Use: No Preferred Language: Uzbek Communication Ability: Effective Visual Impairment: Limited Hearing Ability: Hard of Hearing Keyliner Required: No Beliefs That Will Affect Care: None marital status: Current Living Situation: Spouse Current Living Situation Comment: Lives with and son current occupational status: retired How many Children do You have: 2 Feels Safe at Home: Yes Childhood Exposure to Second-Hand Smoke: Yes Diet Comment: regular during the past year weight has: remained stable Dental Care, Regularly: No Physical Activity Frequency: Does not Exercise Seatbelt Use: always Sunscreen Use: Yes Do you think of yourself as: straight/heterosexual Gender Identity: Female Assistive Devices: None Allergies Allergies Allergy/AdvReac Type Severity Reaction Status Date / Time Sulfa (Sulfonamide Allergy Intermediate Rash Verified 07/19/21 13:42 Antibiotics) sulfamethoxazole Allergy Intermediate RASH Verified 07/19/21 13:42 trimethoprim Allergy Intermediate RASH Verified 07/19/21 13:42 amlodipine AdvReac Intermediate confusion Verified 07/19/21 13:42 adhesive tape AdvReac Mild ITCHING Verified 07/19/21 13:42 Home Meds Home Medications Medication Instructions Recorded Confirmed blood-glucose sensor (Dexcom G6 #3 ea 12/01/20 07/04/21 Sensor) blood-glucose transmitter (Dexcom #1 ea 12/01/20 07/04/21 G6 Transmitter) pantoprazole 40 mg tablet,delayed 40 mg PO QAM 02/14/21 07/19/21 release hydroxyzine HCl 25 mg tablet 25 mg PO TID PRN 06/27/21 07/19/21 insulin glargine 100 unit/mL (3 18 unit SUBCUT HS 07/10/21 07/19/21 mL) subcutaneous pen (Volodymyraglar KwikPen U-100 Insulin) teriparatide 20 mcg/dose (600 20 mcg SUBCUT DAILY 07/10/21 07/19/21 mcg/2.4 mL) subcutaneous pen injector (Forteo) triamcinolone acetonide 0.1 % 1 applic EXT BID PRN 07/19/21 07/19/21 topical ointment Previous Rx's Medication Instructions Recorded carvedilol 12.5 mg tablet 12.5 mg PO BID #180 tab 01/19/21 rifaximin 550 mg tablet (Xifaxan) 550 mg PO BID #180 tab 01/19/21 lactulose 20 gram/30 mL oral 45 ml PO BID 30 Days #2700 ml 02/07/21 solution blood sugar diagnostic (OneTouch #100 ea 02/15/21 Ultra Blue Test Strip) ferrous sulfate 325 mg (65 mg 325 mg PO Q OTHER DAY #30 tab 04/27/21 iron) tablet,delayed release insulin aspart U-100 100 unit/mL See Rx Instructions SQ TID #15 ml 04/27/21 (3 mL) subcutaneous pen (Novolog Flexpen U-100 Insulin aspart) folic acid 1 mg tablet 1 mg PO BID #180 tab 05/14/21 sodium bicarbonate 650 mg tablet 1,300 mg PO BID #180 tab 06/04/21 ropinirole 2 mg tablet See Rx Instructions .ROUTE 06/15/21 .COMPLEX #135 tab potassium chloride 10 mEq 10 meq PO DAILY #30 cap 06/30/21 capsule,extended release furosemide 40 mg tablet 40 mg PO DAILY #30 tab 07/12/21 nystatin 100,000 unit/gram topical 1 applic EXT TID #15 g 07/12/21 powder (Nystop) hydralazine 10 mg tablet 20 mg PO BID #120 tab 07/17/21 Results & Data (ED) Vital Signs Vital Signs - 24 hr 07/19/21 12:29 07/19/21 13:00 07/19/21 13:18 Temperature 37.9 C H Temperature Source Oral Pulse Rate 73 Pulse Rate [Apical] 72 Pulse Rhythm [Apical] Pulse Strength [Apical] Respiratory Rate 23 20 Respiratory Effort / Characteristics Respiratory Depth Blood Pressure 222/89 H Blood Pressure [Right Arm] 210/93 H Blood Pressure Mean 133 Blood Pressure Mean [Right Arm] 132 Blood Pressure Position [Right Arm] Pulse Oximetry 92 92 99 Oxygen Delivery Method Room Air Room Air Nasal Cannula Oxygen Flow Rate 2 Sepsis Recent Fever Within 48 Hours Yes Sepsis New/Unexplained Change in Mental Status No Sepsis Action Taken by Nursing No Action Required 07/19/21 15:00 07/19/21 17:00 Temperature Temperature Source Pulse Rate Pulse Rate [Apical] 70 70 Pulse Rhythm [Apical] Regular Regular Pulse Strength [Apical] Normal Respiratory Rate 17 18 Respiratory Effort / Characteristics Non-Labored Spontaneous Non-Labored Spontaneous Respiratory Depth Normal Normal Blood Pressure Blood Pressure [Right Arm] 190/76 H 202/89 H Blood Pressure Mean Blood Pressure Mean [Right Arm] 114 126 Blood Pressure Position [Right Arm] Lying Lying Pulse Oximetry 99 97 Oxygen Delivery Method Nasal Cannula Nasal Cannula Oxygen Flow Rate 2 2 Sepsis Recent Fever Within 48 Hours Sepsis New/Unexplained Change in Mental Status Sepsis Action Taken by Nursing Laboratory Data Attestation: I reviewed the patient's lab results. Result diagrams: 07/19/21 13:43 07/19/21 13:43 Lab Results 07/19/21 07/19/21 07/19/21 Range/Units 13:43 13:43 13:43 WBC 3.26 L (4.8-10.8) K/uL RBC 2.66 L (4.2-5.4) M/uL Hgb 7.5 L (12.0-16.0) g/dL Hct 23.7 L (37-47) % MCV 89.1 (80-100) fL MCH 28.2 (25-34) pg MCHC 31.6 L (32-36) g/dL RDW Std Deviation 54.7 H (36.4-46.3) fL RDW Coeff of Karina 16.8 H (11.5-14.5) % Plt Count 37 L (130-400) K/uL MPV 10.9 H (7.4-10.4) fL Immature Gran % (Auto) 0.3 % Neut % (Auto) 76.7 % Lymph % (Auto) 10.4 % [place] % (Auto) 12.0 % Eos % (Auto) 0.6 % Baso % (Auto) 0.0 % Neut # (Auto) 2.50 (1.4-6.5) K/uL Lymph # (Auto) 0.34 L (1.2-3.4) K/uL [place] # (Auto) 0.39 (0.11-0.59) K/uL Eos # (Auto) 0.02 (0-0.5) K/uL Baso # (Auto) 0.00 (0-0.2) K/uL Immature Gran # (Auto) 0.01 (0.00-0.02) K/uL PT 14.5 H (9.0-12.0) Seconds INR 1.5 H (0.9-1.1) Sodium 144 (136-145) mmol/L Potassium 3.9 (3.5-5.1) mmol/L Chloride 113 H (98-107) mmol/L Carbon Dioxide 24 (21-32) mmol/L Anion Gap 7.0 (3-11) BUN 52 H (7-18) mg/dl Creatinine 2.50 H (0.6-1.2) mg/dl Est Cr Clr Drug Dosing 20.4 ml/min Est GFR ( Amer) 22.6 ml/min Est GFR (Non-Af Amer) 19.5 ml/min BUN/Creatinine Ratio 20.9 H (10-20) Glucose 222 H (70-99) mg/dl Calcium 8.7 (8.5-10.1) mg/dl Phosphorus 2.8 (2.5-4.9) mg/dl Magnesium 2.1 (1.8-2.4) mg/dl Total Bilirubin 1.6 H (0.2-1) mg/dl AST 46 H (15-37) U/L ALT 27 (12-78) U/L Alkaline Phosphatase 138 H (45-117) U/L Troponin I < 0.015 (0-0.045) ng/ml Total Protein 7.5 (6.4-8.2) gm/dl Albumin 2.3 L (3.4-5.0) gm/dl Globulin 5.2 H (2.5-4.0) gm/dl Albumin/Globulin Ratio 0.4 L (0.9-2) Lipase 110 (73-393) U/L SARS-CoV-2 (PCR) (Negative) 07/19/21 Range/Units 13:43 WBC (4.8-10.8) K/uL RBC (4.2-5.4) M/uL Hgb (12.0-16.0) g/dL Hct (37-47) % MCV (80-100) fL MCH (25-34) pg MCHC (32-36) g/dL RDW Std Deviation (36.4-46.3) fL RDW Coeff of Karina (11.5-14.5) % Plt Count (130-400) K/uL MPV (7.4-10.4) fL Immature Gran % (Auto) % Neut % (Auto) % Lymph % (Auto) % [place] % (Auto) % Eos % (Auto) % Baso % (Auto) % Neut # (Auto) (1.4-6.5) K/uL Lymph # (Auto) (1.2-3.4) K/uL [place] # (Auto) (0.11-0.59) K/uL Eos # (Auto) (0-0.5) K/uL Baso # (Auto) (0-0.2) K/uL Immature Gran # (Auto) (0.00-0.02) K/uL PT (9.0-12.0) Seconds INR (0.9-1.1) Sodium (136-145) mmol/L Potassium (3.5-5.1) mmol/L Chloride (98-107) mmol/L Carbon Dioxide (21-32) mmol/L Anion Gap (3-11) BUN (7-18) mg/dl Creatinine (0.6-1.2) mg/dl Est Cr Clr Drug Dosing ml/min Est GFR ( Amer) ml/min Est GFR (Non-Af Amer) ml/min BUN/Creatinine Ratio (10-20) Glucose (70-99) mg/dl Calcium (8.5-10.1) mg/dl Phosphorus (2.5-4.9) mg/dl Magnesium (1.8-2.4) mg/dl Total Bilirubin (0.2-1) mg/dl AST (15-37) U/L ALT (12-78) U/L Alkaline Phosphatase (45-117) U/L Troponin I (0-0.045) ng/ml Total Protein (6.4-8.2) gm/dl Albumin (3.4-5.0) gm/dl Globulin (2.5-4.0) gm/dl Albumin/Globulin Ratio (0.9-2) Lipase (73-393) U/L SARS-CoV-2 (PCR) POSITIVE A* (Negative) Administered Medications Discontinued Medications Acetaminophen (Acetaminophen 1000 Mg/100 Ml Iv) Confirm Administered Dose 1,000 mg IV .STK-MED ONE Stop: 07/19/21 13:36 Last Admin: 07/19/21 14:25 Dose: Not Given Documented by: [id number] Albuterol (Albuterol Hfa 8 Gm Inhaler) 2 puffs INH NOW ONE Stop: 07/19/21 13:20 Last Admin: 07/19/21 14:04 Dose: 2 puffs Documented by: [id number] Dexamethasone Sodium Phosphate (DexamethasonePf 10 Mg/Ml Vial) 6 mg IV NOW ONE Stop: 07/19/21 15:09 Last Admin: 07/19/21 15:17 Dose: 6 mg Documented by: [id number] Hydralazine HCl (Hydralazine Hcl 20 Mg/Ml Vial) 10 mg IV NOW STA Stop: 07/19/21 17:58 Last Admin: 07/19/21 18:31 Dose: 10 mg Documented by: [id number] Sodium Chloride (Nss) 500 mls @ 999 mls/hr IV .Q31M ONE Stop: 07/19/21 13:49 Last Infusion: 07/19/21 15:19 Dose: 0 mls/hr Documented by: [id number] Admin: 07/19/21 14:29 Dose: 999 mls/hr Documented by: [id number] Acetaminophen (Ofirmev) 65 mls @ 200 mls/hr IV NOW ONE; Protocol Stop: 07/19/21 13:38 Last Infusion: 07/19/21 14:15 Dose: 0 mls/hr Documented by: [id number] Admin: 07/19/21 14:00 Dose: 200 mls/hr Documented by: [id number] Famotidine (Pepcid 20mg Iv Push) 20 mg in 5 mls @ 2.5 mls/min IV NOW STA Stop: 07/19/21 13:21 Last Admin: 07/19/21 14:03 Dose: 2.5 mls/min Documented by: [id number] Ondansetron HCl (Ondansetron Inj 2 Mg/Ml 2 Ml Vial) 4 mg IV NOW STA Stop: 07/19/21 13:21 Last Admin: 07/19/21 14:00 Dose: 4 mg Documented by: [id number] Imaging Data Radiologist's Impression: KUB X-Ray 07/19/21 13:15 KUB CLINICAL HISTORY: Nausea and vomiting. Diarrhea. Covid. FINDINGS: 2 AP, portable, supine abdominal radiographs are compared to study d ated 06/27/2021 and correlated with abdominal CT dated 06/29/2021. There is no radiographic evidence of bowel obstruction. There is gaseous distention of the colon with moderate constipation. No evidence of intraperitoneal free air is seen on these supine images. There are no abnormal abdominal calcifications. The skeletal structures are osteopenic and appear intact noting mild to moderate lumbosacral spondylosis. IMPRESSION: 1. There is gaseous distention of the colon and moderate constipation. 2. There is no radiographic evidence of high-grade bowel obstruction. Electronically signed by: Alexander Feldman M.D. 07/19/2021 2:46 PM Chest X-Ray 07/19/21 13:18 XR chest 1V portable CLINICAL HISTORY: Chest Pain. COMPARISON STUDY: 07/10/2021 TECHNIQUE: 1 view of the chest FINDINGS: Single frontal view of the chest demonstrates the heart to again be mildly enlarged. There is indistinctness of the central hilar vessels with peribronchial cuffing present. Findings are characteristic of central vascular congestion. There is no evidence for peripheral interstitial edema. There is no evidence for pleural effusion. No confluent alveolar opacities are seen. There is no acute osseous pathology. The patient is again status post right shoulder surgery. IMPRESSION: Cardiomegaly with evidence for mild central vascular congestion. ACT 112: Negative or not required by law. Electronically signed by: Shree Ziegler M.D. 07/19/2021 2:28 PM Discharge Plan Visit Data Chief Complaint: Vomiting Stated Complaint: NAUSEA, VOMITING, SORE THROAT, HEADACHE, CHILLS, ED Provider: Levi Mae Discharge Problem: COVID-19, Nausea & vomiting, Borderline low O2 saturation Forms Stand Alone Forms: My [facility] Prescriptions Prescriptions: No Action carvedilol 12.5 mg tablet 12.5 mg PO BID Qty: 180 RF: 1 Xifaxan 550 mg tablet 550 mg PO BID Qty: 180 RF: 1 (DME) OneTouch Ultra Blue Test Strip Strip See Rx Instructions .ROUTE .MEDSUPPLY Qty: 100 RF: 1 folic acid 1 mg tablet 1 mg PO BID Qty: 180 RF: 1 sodium bicarbonate 650 mg tablet 1,300 mg PO BID Qty: 180 RF: 1 ropinirole 2 mg tablet See Rx Instructions .ROUTE .COMPLEX Qty: 135 RF: 1 hydralazine 10 mg tablet 20 mg PO BID Qty: 120 RF: 1 (DME) Dexcom G6 Transmitter Device See Rx Instructions .ROUTE .MEDSUPPLY Qty: 1 RF: 0 (DME) Dexcom G6 Sensor Device See Rx Instructions .ROUTE .MEDSUPPLY Qty: 3 RF: 0 lactulose 20 gram/30 mL solution 45 ml PO BID 30 Days Qty: 2700 RF: 0 ferrous sulfate 325 mg (65 mg iron) tablet,delayed release (DR/EC) 325 mg PO Q OTHER DAY Qty: 30 RF: 5 insulin aspart U-100 [Novolog Flexpen U-100 Insulin] 100 unit/mL (3 mL) insulin pen See Rx Instructions SQ TID Qty: 15 RF: 3 hydroxyzine HCl 25 mg tablet 25 mg PO TID PRN (Reason: Itching) RF: 0 potassium chloride 10 mEq capsule, extended release 10 meq PO DAILY Qty: 30 RF: 0 pantoprazole 40 mg tablet,delayed release (DR/EC) 40 mg PO QAM RF: 0 Forteo 20 mcg/dose (600mcg/2.4mL) Pen Injector 20 mcg SUBCUT DAILY RF: 0 Basaglar KwikPen U-100 Insulin 100 unit/mL (3 mL) insulin pen 18 unit subcut HS RF: 0 nystatin [Nystop] 100,000 unit/gram Powder 1 applic EXT TID Qty: 15 RF: 0 furosemide 40 mg tablet 40 mg PO DAILY Qty: 30 RF: 0 triamcinolone acetonide 0.1 % ointment 1 applic EXT BID PRN (Reason: Rash) RF: 0 Referrals Referrals: Rocío Alonso DO [Primary Care Provider] - Discharge Problem: Nausea & vomiting Qualifiers: Vomiting type: unspecified Vomiting Intractability: intractable Qualified Code(s): R11.2 - Nausea with vomiting, unspecified
--- NOTE | 2021-07-19 15:43 | History & Physical Report ---
Date of Service July 19, 2021 Assessment & Plan (1) COVID-19: Plan: Has had symptoms for about 3 days prior to admission, mostly gastrointestinal, but with mild hypoxia to 90% on room air placed on 2 L nasal cannula No evidence of pneumonia on chest x-ray. KUB with some gaseous distention of colon but no obstruction. -Admit to medical floor telemetry -Start dexamethasone 6 mg IV once daily -Continue Protonix but change to IV once daily Will vomiting -Antiemetics as needed -Cannot start Remdesivir due to poor renal function -No need for aggressive pulmonary toilet at this point as she does not have significant respiratory symptoms -Clear liquids diet for now -Acetaminophen as needed for fevers (2) CKD (chronic kidney disease) stage 4, GFR 15-29 ml/min: Plan: Creatinine at baseline around 2.5 -Avoid nephrotoxins -renally dose meds when appropriate -follow BMP -Continue serum bicarbonate (3) CHF (congestive heart failure): Plan: Chronic diastolic CHF, stable Hold home Lasix with vomiting (4) Nausea and vomiting: Plan: As above, secondary to COVID-19 Antiemetics as needed (5) Esophageal varices: Plan: History of such, no hematemesis currently Continue IV Protonix (6) 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 hydralazine to take when tolerating p.o. (8) DM type 2 (diabetes mellitus, type 2): Plan: Hemoglobin A1c uncontrolled at 9.1% earlier this month Will now be on corticosteroids for Covid-19 Continue Lantus and NovoLog Consult pharmacy for glycemic control (9) Pancytopenia: Plan: Pancytopenia likely secondary to chronic liver disease, however she is undergoing a bone marrow biopsy later this month and follows with [facility] Hemoglobin down to 7.5 Patient was verbally consented for blood transfusion if needed-paper consent was not signed by the patient due to her being in Covid precautions Follow CBC in the morning and transfuse if hemoglobin less than 7.5 Platelets very low at 37 but this is stable from previous-transfuse platelets if less than 15,000 or develops issues with bleeding (10) Acute respiratory failure with hypoxia: Plan: As above, requiring 2 L nasal cannula Given dexamethasone Wean off supplemental O2 as able to Plan: DVT prophylaxis-SCDs only given significant thrombocytopenia and anemia Disposition- Observation to medical/telemetry unit, on Covid precautions History of Present Illness Chief Complaint: Nausea/vomiting, fever Primary Care Provider: Rocío Alonso DO This patient is a 64-year-old female with a history of Fowler cirrhosis with esophageal varices, gastric varices, and portal hypertension, hepatic encephalopathy, DM 2, CKD stage III-IV, neuropathy, RLS, pancytopenia, GERD, HTN, chronic pleural effusions, psoriatic arthritis, chronic pancytopenia, who presents to the ER after developing worsening cough with nausea/vomiting/dry heaving over the past several days. She denies any blood in her vomit, no melena or bright red blood per rectum. She was just discharged from the hospital 1 week ago for a rash on her legs. Since that time, she was exposed to her son who had Covid 19 and lives with her. She is fully vaccinated but tested positive for Covid-19 in the ER. She does have some mild shortness of breath but her biggest symptoms are her intractable nausea and vomiting and is unable to take her typical medications. In the ER, she was febrile to 37.9 and was hypertensive in the 190s over 70s. Her pulse ox was 90-91% on room air which is similar to previous. She has chronic pancytopenia and elevated LFTs but says all similar to previous except her H&H is slightly lower than previous at 7.5. Her creatinine is elevated 2.5 which is stable from previous. A KUB x-ray showed gaseous distention of the colon moderate constipation but no obstruction. Chest x-ray showed cardiomegaly with mild central vascular congestion, but no pneumonia. In the ER, she was given 500 mLs of normal saline, IV Tylenol, IV Pepcid, IV Zofran, and 1 dose of IV dexamethasone. She will be admitted for intractable nausea/vomiting in the setting of Covid-19 infection Allergies Allergy/AdvReac Type Severity Reaction Status Date / Time Sulfa (Sulfonamide Allergy Intermediate Rash Verified 07/19/21 13:42 Antibiotics) sulfamethoxazole Allergy Intermediate RASH Verified 07/19/21 13:42 trimethoprim Allergy Intermediate RASH Verified 07/19/21 13:42 amlodipine AdvReac Intermediate confusion Verified 07/19/21 13:42 adhesive tape AdvReac Mild ITCHING Verified 07/19/21 13:42 Home Medications Medication Instructions Recorded Confirmed Type blood-glucose sensor (Dexcom G6 #3 ea 12/01/20 07/04/21 History Sensor) blood-glucose transmitter (Dexcom #1 ea 12/01/20 07/04/21 History G6 Transmitter) carvedilol 12.5 mg tablet 12.5 mg PO BID #180 tab 01/19/21 07/19/21 Rx rifaximin 550 mg tablet (Xifaxan) 550 mg PO BID #180 tab 01/19/21 07/19/21 Rx lactulose 20 gram/30 mL oral 45 ml PO BID 30 Days #2700 ml 02/07/21 07/19/21 Rx solution pantoprazole 40 mg tablet,delayed 40 mg PO QAM 02/14/21 07/19/21 History release blood sugar diagnostic (OneTouch #100 ea 02/15/21 07/04/21 Rx Ultra Blue Test Strip) ferrous sulfate 325 mg (65 mg 325 mg PO Q OTHER DAY #30 tab 04/27/21 07/19/21 Rx iron) tablet,delayed release insulin aspart U-100 100 unit/mL See Rx Instructions SQ TID #15 ml 04/27/21 07/19/21 Rx (3 mL) subcutaneous pen (Novolog Flexpen U-100 Insulin aspart) folic acid 1 mg tablet 1 mg PO BID #180 tab 05/14/21 07/19/21 Rx sodium bicarbonate 650 mg tablet 1,300 mg PO BID #180 tab 06/04/21 07/19/21 Rx ropinirole 2 mg tablet See Rx Instructions .ROUTE 06/15/21 07/19/21 Rx .COMPLEX #135 tab hydroxyzine HCl 25 mg tablet 25 mg PO TID PRN 06/27/21 07/19/21 History potassium chloride 10 mEq 10 meq PO DAILY #30 cap 06/30/21 07/19/21 Rx capsule,extended release insulin glargine 100 unit/mL (3 18 unit SUBCUT HS 07/10/21 07/19/21 History mL) subcutaneous pen (Basaglar KwikPen U-100 Insulin) teriparatide 20 mcg/dose (600 20 mcg SUBCUT DAILY 07/10/21 07/19/21 History mcg/2.4 mL) subcutaneous pen injector (Forteo) furosemide 40 mg tablet 40 mg PO DAILY #30 tab 07/12/21 07/19/21 Rx nystatin 100,000 unit/gram topical 1 applic EXT TID #15 g 07/12/21 07/19/21 Rx powder (Nystop) hydralazine 10 mg tablet 20 mg PO BID #120 tab 07/17/21 07/19/21 Rx triamcinolone acetonide 0.1 % 1 applic EXT BID PRN 07/19/21 07/19/21 History topical ointment Past Med/Surg History Medical History Acute blood loss anemia Anemia of chronic disease Anxiety Bilateral high frequency sensorineural hearing loss CHF (congestive heart failure) Chronic kidney disease, stage 3 (moderate) CKD (chronic kidney disease) stage 4, GFR 15-29 ml/min Diverticular disease DM type 2 (diabetes mellitus, type 2) Duodenal ulcer Eczematid-like purpura of dou[place] and [place] Esophageal varices Gastric ulcer GERD (gastroesophageal reflux disease) History of GI bleed 03/2020 History of recent blood transfusion (~06/2019) Hyperlipidemia Hypertension Liver cirrhosis secondary to FOWLER Lower GI bleed Nausea and vomiting after administration of anesthetic agent On home oxygen therapy 2L prn for SOB Osteoarthritis Osteoporosis Pancytopenia Pleural effusion Psoriatic arthritis Right shoulder pain Risk for falls Surgical History H/O esophagogastroduodenoscopy 03/21/20 Dr. Shivani Carmen- EGD History of anesthesia reaction difficult to wake after bladder tack sx History of bilateral cataract extraction History of bladder surgery bladder tack History of colonoscopy History of esophagogastroduodenoscopy (EGD) multiple---last 06/22/19 Dr. Malena Marie at [facility] History of hemiarthroplasty of right shoulder January 2018 post fracture History of repair of right rotator cuff History of revision of total shoulder arthroplasty (12/29/18) Right shoulder, 12/29/18 History of shoulder surgery (~11/2019) Had right total arthroplasty removed 11/2019 History of thoracentesis (~10/05/19) left History of tooth extraction all teeth S/P ORIF (open reduction internal fixation) fracture R shoulder, January 2018 S/P shoulder surgery (11/18/19) R TSA removal, I&D, placement of abx spacer Family History Grandmother (Paternal) Family history of diabetes mellitus Father COPD (chronic obstructive pulmonary disease) Mother Hypertension Family/Other Cancer Sister Ovarian cancer Other No family history of adverse response to anesthesia Denies family history of Prostate cancer Myocardial infarction Breast cancer Colorectal cancer Social History Smoking Status: Former smoker Tobacco Type: Cigarettes Age Started Using Tobacco: 17; Age Quit Using Tobacco: 31; packs per day: 1; Second Hand Exposure: No; Hx Alcohol Use: No Hx Substance Use: No Preferred Language: Peruvian Communication Ability: Effective Visual Impairment: Limited Hearing Ability: Hard of Hearing Fingernail Technician Required: No Beliefs That Will Affect Care: None marital status: Current Living Situation: Spouse Current Living Situation Comment: Lives with and son current occupational status: retired How many Children do You have: 2 Feels Safe at Home: Yes Childhood Exposure to Second-Hand Smoke: Yes Diet Comment: regular during the past year weight has: remained stable Dental Care, Regularly: No Physical Activity Frequency: Does not Exercise Seatbelt Use: always Sunscreen Use: Yes Do you think of yourself as: straight/heterosexual Gender Identity: Female Assistive Devices: None Review of Systems Review of Systems: All systems reviewed & are unremarkable except as noted in HPI & below Physical Exam Constitutional: WD/WN, vitals as above Eyes: PERRL, conjunctivae normal, anicteric sclerae ENMT: external ear and nose normal, oropharynx normal Neck: trachea midline, no thyromegaly Respiratory: normal respiratory effort, lungs clear to auscultation Cardiovascular: RRR, no murmur, no edema Chest (Breasts): Chest: normal inspection of chest Gastrointestinal (Abdomen): normal bowel sounds, soft, nontender, no hepatosplenomegaly Musculoskeletal: Extremities: extremities normal to inspection; no cyanosis and no clubbing Skin: no rashes, warm and dry Neurologic: moves all extremities and awake; no focal motor deficits Psychiatric: A+Ox3, euthymic affect Lymphatic: no lymphedema Results & Data Results & Data ([facility]) Vital Signs (Past 12 Hours) Vital Signs Temp Pulse Pulse Resp BP BP Pulse Ox 07/19/21 15:00 70 17 190/76 H 99 07/19/21 13:18 99 07/19/21 13:00 72 20 210/93 H 92 07/19/21 12:29 37.9 C H 73 23 222/89 H 92 Laboratory Results 07/19/21 07/19/21 07/19/21 Range/Units 13:43 13:43 13:43 WBC 3.26 L (4.8-10.8) K/uL RBC 2.66 L (4.2-5.4) M/uL Hgb 7.5 L (12.0-16.0) g/dL Hct 23.7 L (37-47) % MCV 89.1 (80-100) fL MCH 28.2 (25-34) pg MCHC 31.6 L (32-36) g/dL RDW Std Deviation 54.7 H (36.4-46.3) fL RDW Coeff of Karina 16.8 H (11.5-14.5) % Plt Count 37 L (130-400) K/uL MPV 10.9 H (7.4-10.4) fL Immature Gran % (Auto) 0.3 % Neut % (Auto) 76.7 % Lymph % (Auto) 10.4 % [place] % (Auto) 12.0 % Eos % (Auto) 0.6 % Baso % (Auto) 0.0 % Neut # (Auto) 2.50 (1.4-6.5) K/uL Lymph # (Auto) 0.34 L (1.2-3.4) K/uL [place] # (Auto) 0.39 (0.11-0.59) K/uL Eos # (Auto) 0.02 (0-0.5) K/uL Baso # (Auto) 0.00 (0-0.2) K/uL Immature Gran # (Auto) 0.01 (0.00-0.02) K/uL PT (9.0-12.0) Seconds INR (0.9-1.1) Sodium 144 (136-145) mmol/L Potassium 3.9 (3.5-5.1) mmol/L Chloride 113 H (98-107) mmol/L Carbon Dioxide 24 (21-32) mmol/L Anion Gap 7.0 (3-11) BUN 52 H (7-18) mg/dl Creatinine 2.50 H (0.6-1.2) mg/dl Est Cr Clr Drug Dosing 20.4 ml/min Est GFR ( Amer) 22.6 ml/min Est GFR (Non-Af Amer) 19.5 ml/min BUN/Creatinine Ratio 20.9 H (10-20) Glucose 222 H (70-99) mg/dl Calcium 8.7 (8.5-10.1) mg/dl Phosphorus 2.8 (2.5-4.9) mg/dl Magnesium 2.1 (1.8-2.4) mg/dl Total Bilirubin 1.6 H (0.2-1) mg/dl AST 46 H (15-37) U/L ALT 27 (12-78) U/L Alkaline Phosphatase 138 H (45-117) U/L Troponin I < 0.015 (0-0.045) ng/ml Total Protein 7.5 (6.4-8.2) gm/dl Albumin 2.3 L (3.4-5.0) gm/dl Globulin 5.2 H (2.5-4.0) gm/dl Albumin/Globulin Ratio 0.4 L (0.9-2) Lipase 110 (73-393) U/L SARS-CoV-2 (PCR) POSITIVE A* (Negative) 07/19/21 Range/Units 13:43 WBC (4.8-10.8) K/uL RBC (4.2-5.4) M/uL Hgb (12.0-16.0) g/dL Hct (37-47) % MCV (80-100) fL MCH (25-34) pg MCHC (32-36) g/dL RDW Std Deviation (36.4-46.3) fL RDW Coeff of Karina (11.5-14.5) % Plt Count (130-400) K/uL MPV (7.4-10.4) fL Immature Gran % (Auto) % Neut % (Auto) % Lymph % (Auto) % [place] % (Auto) % Eos % (Auto) % Baso % (Auto) % Neut # (Auto) (1.4-6.5) K/uL Lymph # (Auto) (1.2-3.4) K/uL [place] # (Auto) (0.11-0.59) K/uL Eos # (Auto) (0-0.5) K/uL Baso # (Auto) (0-0.2) K/uL Immature Gran # (Auto) (0.00-0.02) K/uL PT 14.5 H (9.0-12.0) Seconds INR 1.5 H (0.9-1.1) Sodium (136-145) mmol/L Potassium (3.5-5.1) mmol/L Chloride (98-107) mmol/L Carbon Dioxide (21-32) mmol/L Anion Gap (3-11) BUN (7-18) mg/dl Creatinine (0.6-1.2) mg/dl Est Cr Clr Drug Dosing ml/min Est GFR ( Amer) ml/min Est GFR (Non-Af Amer) ml/min BUN/Creatinine Ratio (10-20) Glucose (70-99) mg/dl Calcium (8.5-10.1) mg/dl Phosphorus (2.5-4.9) mg/dl Magnesium (1.8-2.4) mg/dl Total Bilirubin (0.2-1) mg/dl AST (15-37) U/L ALT (12-78) U/L Alkaline Phosphatase (45-117) U/L Troponin I (0-0.045) ng/ml Total Protein (6.4-8.2) gm/dl Albumin (3.4-5.0) gm/dl Globulin (2.5-4.0) gm/dl Albumin/Globulin Ratio (0.9-2) Lipase (73-393) U/L SARS-CoV-2 (PCR) (Negative) Diagnostic Findings KUB X-Ray 07/19/21 13:15 KUB CLINICAL HISTORY: Nausea and vomiting. Diarrhea. Covid. FINDINGS: 2 AP, portable, supine abdominal radiographs are compared to study dated 06/27/2021 and correlated with abdominal CT dated 06/29/2021. There is no radiographic evidence of bowel obstruction. There is gaseous distention of the colon with moderate constipation. No evidence of intraperitoneal free air is seen on these supine images. There are no abnormal abdominal calcifications. The skeletal structures are osteopenic and appear intact noting mild to moderate lumbosacral spondylosis. IMPRESSION: 1. There is gaseous distention of the colon and moderate constipation. 2. There is no radiographic evidence of high-grade bowel obstruction. Electronically signed by: Alexander Feldman M.D. 07/19/2021 2:46 PM Chest X-Ray 07/19/21 13:18 XR chest 1V portable CLINICAL HISTORY: Chest Pain. COMPARISON STUDY: 07/10/2021 TECHNIQUE: 1 view of the chest FINDINGS: Single frontal view of the chest demonstrates the heart to again be mildly enlarged. There is indistinctness of the central hilar vessels with peribronchial cuffing present. Findings are characteristic of central vascular congestion. There is no evidence for peripheral interstitial edema. There is no evidence for pleural effusion. No confluent alveolar opacities are seen. There is no acute osseous pathology. The patient is again status post right shoulder surgery. IMPRESSION: Cardiomegaly with evidence for mild central vascular congestion. ACT 112: Negative or not required by law. Electronically signed by: Shree Ziegler M.D. 07/19/2021 2:28 PM ECG Additional Comments: ECG on 07/19/2021 at 1354 with normal sinus rhythm, rate 72, no ischemic changes Code Status & VTE Plan Code Status Full code VTE Prophylaxis Plan VTE Prophylaxis will be ordered: Yes PG Care Time/CCT Total # of Minutes Spent Total Time Spent with Patient: Total time spent is greater than 50% in coordination of care (as documented) at patient's floor/unit and/or counseling patient: Coding Level of Care Code INT OBSERVATION CARE 70M LVL 3 Diagnoses CKD (chronic kidney disease) stage 4, GFR 15-29 ml/min N18.4 CHF (congestive heart failure) I50.9 Heart failure chronicity: acute Heart failure type: unspecified Nausea and vomiting R11.2 Esophageal varices I85.00 Liver cirrhosis secondary to FOWLER K75.81; K74.60 Hypertension I10 Hypertension type: unspecified DM type 2 (diabetes mellitus, type 2) E11.65 Diabetes mellitus complication status: with hyperglycemia Diabetes mellitus prison insulin use: without rn long term care use Pancytopenia D61.818 COVID-19 U07.1 Acute respiratory failure with hypoxia J96.01 (1) DM type 2 (diabetes mellitus, type 2) Diabetes mellitus complication status: with hyperglycemia Diabetes mellitus prison insulin use: without rn long term care use Qualified Code(s): E11.65 - Type 2 diabetes mellitus with hyperglycemia (2) CHF (congestive heart failure) Heart failure chronicity: acute Heart failure type: unspecified Qualified Code(s): I50.9 - Heart failure, unspecified (3) Hypertension Hypertension type: unspecified Qualified Code(s): I10 - Essential (primary) hypertension
[2021-07-19] MEDS ORDERED: hydrALAZINE HCL 20 MG/ML VIAL IV PRN (17:41)
[2021-07-19] MEDS ORDERED: hydrALAZINE HCL 20 MG/ML VIAL IV STA (17:57)
[2021-07-19] MEDS ORDERED: GLUCOSE 10 TABS/TUBE PO PRN (21:03)
[2021-07-19] MEDS ORDERED: ONDANSETRON INJ 2 MG/ML 2 ML VIAL IV PRN (21:03)
[2021-07-19] MEDS ORDERED: DEXTROSE 50% 50 ML SYRINGE IV PRN (21:03)
[2021-07-19] MEDS ORDERED: PHARMACY GLYCEMIC MGMT CONSULT PRN (21:03)
[2021-07-19] MEDS ORDERED: hydrOXYzine HCl 25 MG TAB PO PRN (21:03)
[2021-07-19] MEDS ORDERED: GLUCAGON FOR INJ 1 MG VIAL SQ PRN (21:03)
[2021-07-19] MEDS ORDERED: SODIUM CHLORIDE 0.9% 1000ML 1,000 ML IV SCH (21:03)
[2021-07-19] MEDS ORDERED: CARBOHYDRATES FOR HYPOGLYCEMIA PO PRN (21:03)
[2021-07-19] MEDS ORDERED: GLUCOSE 40% GEL 15 GM TUBE PO PRN (21:03)
[2021-07-19] MEDS ORDERED: ACETAMINOPHEN 325 MG TAB PO PRN (21:03)
[2021-07-19] MEDS ORDERED: INSULIN GLARGINE SOLOSTAR 100 UNITS/ML 3 ML PEN SQ SCH ×2 (21:30→22:15)
[2021-07-19] MEDS ORDERED: PANTOprazole 40 MG in SYRINGE 0 ML IV ONE (21:30)
[2021-07-19] MEDS ORDERED: rOPINIRole HCL 1 MG TABLET PO SCH ×2 (21:45→22:00)
[2021-07-19] MEDS ORDERED: INSULIN HUMAN REGULAR PER UNIT 7 UNITS in SYRINGE 6.93 ML IV ONE (22:10)
[2021-07-19] MEDS: FOLIC ACID 1 MG TAB PO SCH (22:56)
[2021-07-19] MEDS: hydrALAZINE 10 MG TAB PO SCH (22:56)
[2021-07-19] MEDS: carvediloL 12.5 MG TAB PO SCH (22:57)
[2021-07-19] MEDS: rOPINIRole HCL 2 MG TABLET PO SCH (22:57)
[2021-07-19] MEDS: SODIUM BICARBONATE 650 MG TAB PO SCH (22:57)
[2021-07-19] MEDS: rifAXIMin 550 MG TABLET PO SCH (22:57)
[2021-07-19] MEDS: TRIAMCINOLONE ACET 0.1% OINT 15 GM TUBE EXT SCH (22:58)
[2021-07-19] MEDS: NYSTATIN POWDER 15GM BTL EXT SCH (22:58)
[2021-07-19] MEDS: INSULIN ASPART 100 UNITS/ML 3 ML PEN SC SCH (22:59)
--- NOTE | 2021-07-19 23:41 | Pharmacy Report ---
Pharmacy Glycemic Short Note 2 - Date of Service July 19, 2021 - Glycemic Short BSG Results (Last 24 hours): 07/19/21 07/19/21 13:43 21:53 Glucose 222 H POC Glucose 345 H* OUTPATIENT ANTIDIABETIC REGIMEN: * Lantus 18 units SC HS * Novolog sliding scale TIDM * HbA1c: 9.1% (06/28/21) ASSESSMENT: * BR is a 66 year old female recently discharged on 07/12/21 * Presents today with nausea/vomiting, patient is positive for COVID-19 * Ordered dexamethasone 6 mg IV daily (first dose received this afternoon) * BSG this evening is 345 mg/dL - will give one-time IV insulin bolus, stressed Lantus, and Novolog overnigh PLAN FOR INPATIENT GLYCEMIC CONTROL: * Basal insulin * Lantus 24 units SC x 1 (weight-based stress of 2 dosing) * Consider NPH in AM * Bolus insulin * NovoLog per scale ACHS or Q6hrs while NPO * Goal Range: Low 110 mg/dL - High 140 mg/dL * Correction Factor: 20 mg/dL/unit * Nutritional / Prandial insulin per carb ratio of 1 unit per 7 grams CHO consumed * ,04 checks with same parameters PLAN FOR DISCHARGE: * HbA1c of 9.1% suggests poor outpatient glycemic control as an outpatient * Goal HbA1c for most patients would be less than 7%, could consider less than 8% in this case due to significant comorbidities * Of note: patient has poor renal function (eCrCl < 30 mL/min at baseline) * Will follow inpatient insulin needs and make recommendations accordingly * Patient may benefit from set dose of insulin with meals in addition to sliding scale
[2021-07-20] MEDS ORDERED: SODIUM CHLORIDE 0.9% 250 ML IV PRN ×2 (00:19→10:05)
[2021-07-20] MEDS: INSULIN ASPART 100 UNITS/ML 3 ML PEN SC SCH ×6 (01:00→22:19)
[2021-07-20 07:56] LABS: Hematocrit (blood only) 22.8 % (37-47); Mean Corpuscular Hemoglobin 27.2 pg (25-34); Mean Corpuscular Hgb Conc 30.7 g/dL (32-36); Mean Corpuscular Volume 88.7 fL (80-100); RDW Coefficient of Variation 16.7 % (11.5-14.5); RDW Standard Deviation 54.2 fL (36.4-46.3); Red Blood Count 2.57 M/uL (4.2-5.4); White Blood Count 1.66 K/uL (4.8-10.8)
[2021-07-20 08:02] LABS: Mean Platelet Volume 10.1 fL (7.4-10.4); Platelet Count 32 K/uL (130-400)
[2021-07-20 08:03] LABS: Estimated Average Glucose 166 mg/dl; Hemoglobin A1C 7.4 % (4.5-5.6)
[2021-07-20 08:18] LABS: Immature Granulocytes # (auto) 0.01 K/uL (0.00-0.02); Immature Granulocytes % (auto) 0.6 %; Lymphocytes # (auto) 0.25 K/uL (1.2-3.4); Lymphocytes % (auto) 15.1 %; Monocytes # (auto) 0.09 K/uL (0.11-0.59); Monocytes % (auto) 5.4 %; Neutrophils # (auto) 1.31 K/uL (1.4-6.5); Neutrophils % (auto) 78.9 %; RBC Morphology Unremarkable
[2021-07-20 08:19] LABS: C Reactive Protein 5.04 mg/dl (0-0.29); Creatinine Clr Calc Pharmacy 21.8 ml/min; Est GFR (African American) 24.5 ml/min; Est GFR (Non-African American) 21.1 ml/min; Potassium 3.9 mmol/L (3.5-5.1)
[2021-07-20 08:22] LABS: Albumin Globulin Ratio 0.4 (0.9-2); Bilirubin,Total 1.2 mg/dl (0.2-1); Globulin 4.9 gm/dl (2.5-4.0); Total Protein 6.9 gm/dl (6.4-8.2)
--- NOTE | 2021-07-20 08:51 | Electrocardiogram Report ---
Test Reason : Blood Pressure : / mmHG Vent. Rate : 072 BPM Atrial Rate : 072 BPM P-R Int : 188 ms QRS Dur : 080 ms QT Int : 440 ms P-R-T Axes : 075 068 051 degrees QTc Int : 481 ms Normal sinus rhythm When compared with ECG of 10-JUL-2021 11:15, No significant change was found Confirmed by Ramón Guillaume ([id number]) on 07/20/2021 8:50:50 AM Referred By: REFERRED SELF Confirmed By:Sunil Guillaume
[2021-07-20] MEDS ORDERED: FERROUS SULFATE 325 MG TAB PO SCH (09:00)
[2021-07-20] MEDS ORDERED: INSULIN HUMAN NPH SC ONE ×2 (09:00→16:30)
[2021-07-20] MEDS ORDERED: PANTOprazole 40 MG in SYRINGE 0 ML IV SCH (11:00)
[2021-07-20] MEDS: carvediloL 12.5 MG TAB PO SCH ×2 (11:25→22:12)
[2021-07-20] MEDS: rifAXIMin 550 MG TABLET PO SCH ×2 (11:25→22:16)
[2021-07-20] MEDS: hydrALAZINE 10 MG TAB PO SCH ×2 (11:25→22:13)
[2021-07-20] MEDS: SODIUM BICARBONATE 650 MG TAB PO SCH ×2 (11:25→22:17)
[2021-07-20] MEDS: dexAMETHasone 6 MG in SYRINGE 0 ML IV SCH (11:25)
[2021-07-20] MEDS: NYSTATIN POWDER 15GM BTL EXT SCH ×3 (11:26→22:16)
[2021-07-20] MEDS: TRIAMCINOLONE ACET 0.1% OINT 15 GM TUBE EXT SCH ×2 (11:26→22:18)
[2021-07-20] MEDS: FOLIC ACID 1 MG TAB PO SCH ×2 (11:27→22:13)
[2021-07-20] MEDS: rOPINIRole HCL 1 MG TABLET PO SCH (14:00)
--- NOTE | 2021-07-20 15:02 | Pharmacy Report ---
Pharmacy Glycemic Short Note 2 - Date of Service July 20, 2021 - Glycemic Short BSG Results (Last 24 hours): 07/19/21 07/20/21 07/20/21 21:53 03:09 07:20 Glucose 225 H POC Glucose 345 H* 289 H 07/20/21 07/20/21 08:00 12:44 Glucose POC Glucose 221 H 276 H OUTPATIENT ANTIDIABETIC REGIMEN: * Lantus 18 units SC HS * Novolog sliding scale TIDM * HbA1c: 7.4% 07/20/21 ASSESSMENT: 07/20 * Patient presented with hyperglycemia that worsened following receipt of IV steroids for COVID pna. * BSGs have begun to trend down however. * Given the timing of IV dexamethasone in the AM, will change basal insulin to NPH and administer this in the AM to combat steroid induced hyperglycemia * Lantus will be d/c'd until we see if NPH alone is sufficient to provide basal needs. * Will continue "severe" stress level Novolog dosing based upon weight for now. Continue overnight checks for additional correction until hyperglycemia better controlled 07/19 * BR is a 66 year old female recently discharged on 07/12/21 * Presents today with nausea/vomiting, patient is positive for COVID-19 * Ordered dexamethasone 6 mg IV daily (first dose received this afternoon) * BSG this evening is 345 mg/dL - will give one-time IV insulin bolus, stressed Lantus, and Novolog overnigh PLAN FOR INPATIENT GLYCEMIC CONTROL: * Basal insulin * DC Lantus * NPH 10 units this AM w/ dexamethasone IV, 10 additional units with dinner; begin NPH 24 units Q AM tomorrow (07/21) * Bolus insulin * NovoLog per scale ACHS and at [phone],[id number] initially * Goal Range: Low 110 mg/dL - High 140 mg/dL * Correction Factor: 20 mg/dL/unit (only correct if > 180 on overnight checks) * Nutritional / Prandial insulin per carb ratio of 1 unit per 7 grams CHO consumed * Reassess insulin doses with each step down in steroid dose. Of note, total daily insulin doses appeared to be as low as 20-30 units of insulin per day during last admission while not receiving steroids. PLAN FOR DISCHARGE: * HbA1c of 7.4% has improved substantially since last assessed * Goal HbA1c for most patients would be less than 7%, could consider less than 8% in this case due to significant comorbidities * Of note: patient has poor renal function (eCrCl < 30 mL/min at baseline) * Will follow inpatient insulin needs and make recommendations accordingly * Patient may benefit from set dose of insulin with meals in addition to sliding scale
--- NOTE | 2021-07-20 20:01 | Hospitalist Progress Note ---
Date of Service July 20, 2021 Assessment & Plan (1) COVID-19: Plan: She had symptoms for about 3 days prior to admission, mostly gastrointestinal, but with mild hypoxia to 90% on room air placed on 2 L nasal cannula No evidence of pneumonia on chest x-ray. KUB with some gaseous distention of colon but no obstruction. Remains on 2 L nasal cannula but pulse ox is 98% now-can wean off oxygen to keep pulse ox greater than 92% GI symptoms have significantly improved-no further nausea or vomiting-can advance diet to low-sodium diet -Continue dexamethasone 6 mg IV once daily x10-day course but could discontinue if weaned off oxygen and ready for discharge given significant hyperglycemia -Convert Protonix from IV back to p.o. now that she is tolerating p.o. -Antiemetics as needed -Cannot administer Remdesivir due to poor renal function -No need for aggressive pulmonary toilet at this point as she does not have significant respiratory symptoms -Acetaminophen as needed for fevers (2) CKD (chronic kidney disease) stage 4, GFR 15-29 ml/min: Plan: Creatinine remains at baseline around 2.3 -Avoid nephrotoxins -renally dose meds when appropriate -follow BMP -Continue sodium bicarbonate p.o. 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 Give IV hydralazine as needed Continue carvedilol, p.o. hydralazine but increase hydralazine to 20 mg p.o. 3 times daily up from twice daily (8) DM type 2 (diabetes mellitus, type 2): Plan: Hemoglobin A1c uncontrolled at 9.1% earlier this month Will now be on corticosteroids for Covid-19 and is having resultant hyperglycemia Continue Lantus and NovoLog, NPH Consult pharmacy for glycemic control appreciated (9) Pancytopenia: Plan: Pancytopenia likely secondary to chronic liver disease, however she is undergoing a bone marrow biopsy later this month and follows with [facility] Hemoglobin down to 7.0 today and needs transfusion Patient was verbally consented for blood transfusion if needed-paper consent was not signed by the patient due to her being in Covid precautions Transfuse 1 unit PRBCs Platelets very low at 32 but this is stable from previous-transfuse platelets if less than 15,000 or develops issues with bleeding (10) Acute respiratory failure with hypoxia: Plan: As above, requiring 2 L nasal cannula but now can wean off as she is having a pulse ox of 98% on 2 L Continue dexamethasone Plan: DVT prophylaxis-SCDs only given significant thrombocytopenia and anemia Disposition- Continued stay on medical/telemetry unit, on Covid precautions Admission and Anticipated Discharge Date Admission Date: July 19, 2021 Subjective Patient reports feeling better today. She has tolerated clear liquids all day and is ready to try regular food. She denies any abdominal pains. Has not had a bowel movement since yesterday. She has a slight cough and is still requiring 2 L nasal cannula although her pulse ox was 98% on 2 L when I saw her. Review of Systems Review of Systems: All systems reviewed & are unremarkable except as noted in HPI & below Physical Exam Constitutional: WD/WN, vitals as above Eyes: + anicteric sclerae ENMT: external ear and nose normal, oropharynx normal Neck: trachea midline, no thyromegaly Respiratory: normal respiratory effort, lungs clear to auscultation Cardiovascular: RRR, no murmur, no edema Chest (Breasts): Chest: normal inspection of chest Gastrointestinal (Abdomen): normal bowel sounds, soft, nontender, no hepatosplenomegaly Musculoskeletal: Extremities: extremities normal to inspection; no cyanosis and no clubbing Skin: no rashes, warm and dry Neurologic: moves all extremities and awake; no focal motor deficits Psychiatric: A+Ox3, euthymic affect Lymphatic: no lymphedema Results & Data Results & Data ([facility]) Vital Signs (Past 12 Hours) Vital Signs Temp Pulse Resp BP Pulse Ox 07/20/21 17:00 57 L 12 190/81 H 98 07/20/21 16:00 59 L 14 169/87 H 98 07/20/21 15:00 60 16 188/86 H 99 07/20/21 14:00 61 21 168/77 H 98 07/20/21 13:30 64 16 151/76 H 95 07/20/21 13:00 61 21 189/76 H 97 07/20/21 12:30 60 18 189/76 H 95 07/20/21 12:00 62 19 172/79 H 98 07/20/21 11:45 36.6 C 61 18 171/84 H 97 07/20/21 11:36 36.6 C 61 18 191/83 H 99 07/20/21 11:00 61 24 191/83 H 99 07/20/21 10:00 61 23 98 07/20/21 09:00 62 15 98 07/20/21 08:00 59 L 14 147/93 H 99 Laboratory Results 07/20/21 07/20/21 07/20/21 Range/Units 22:08 22:06 16:39 WBC (4.8-10.8) K/uL RBC (4.2-5.4) M/uL Hgb (12.0-16.0) g/dL Hct (37-47) % MCV (80-100) fL MCH (25-34) pg MCHC (32-36) g/dL RDW Std Deviation (36.4-46.3) fL RDW Coeff of Karina (11.5-14.5) % Plt Count (130-400) K/uL MPV (7.4-10.4) fL Immature Gran % (Auto) % Neut % (Auto) % Lymph % (Auto) % Terry % (Auto) % Eos % (Auto) % Baso % (Auto) % Neut # (Auto) (1.4-6.5) K/uL Lymph # (Auto) (1.2-3.4) K/uL Terry # (Auto) (0.11-0.59) K/uL Eos # (Auto) (0-0.5) K/uL Baso # (Auto) (0-0.2) K/uL Immature Gran # (Auto) (0.00-0.02) K/uL RBC Morphology Sodium (136-145) mmol/L Potassium (3.5-5.1) mmol/L Chloride (98-107) mmol/L Carbon Dioxide (21-32) mmol/L Anion Gap (3-11) BUN (7-18) mg/dl Creatinine (0.6-1.2) mg/dl Est Cr Clr Drug Dosing ml/min Est GFR ( Amer) ml/min Est GFR (Non-Af Amer) ml/min BUN/Creatinine Ratio (10-20) Glucose (70-99) mg/dl POC Glucose 292 H 330 H* 300 H (70-99) mg/dl Estimat Average Glucose mg/dl Hemoglobin A1c (4.5-5.6) % Calcium (8.5-10.1) mg/dl Total Bilirubin (0.2-1) mg/dl AST (15-37) U/L ALT (12-78) U/L Alkaline Phosphatase (45-117) U/L C-Reactive Protein (0-0.29) mg/dl Total Protein (6.4-8.2) gm/dl Albumin (3.4-5.0) gm/dl Globulin (2.5-4.0) gm/dl Albumin/Globulin Ratio (0.9-2) Blood Type Antibody Screen Crossmatch 07/20/21 07/20/21 07/20/21 Range/Units 12:44 08:00 07:20 WBC (4.8-10.8) K/uL RBC (4.2-5.4) M/uL Hgb (12.0-16.0) g/dL Hct (37-47) % MCV (80-100) fL MCH (25-34) pg MCHC (32-36) g/dL RDW Std Deviation (36.4-46.3) fL RDW Coeff of Karina (11.5-14.5) % Plt Count (130-400) K/uL MPV (7.4-10.4) fL Immature Gran % (Auto) % Neut % (Auto) % Lymph % (Auto) % Terry % (Auto) % Eos % (Auto) % Baso % (Auto) % Neut # (Auto) (1.4-6.5) K/uL Lymph # (Auto) (1.2-3.4) K/uL Terry # (Auto) (0.11-0.59) K/uL Eos # (Auto) (0-0.5) K/uL Baso # (Auto) (0-0.2) K/uL Immature Gran # (Auto) (0.00-0.02) K/uL RBC Morphology Sodium (136-145) mmol/L Potassium (3.5-5.1) mmol/L Chloride (98-107) mmol/L Carbon Dioxide (21-32) mmol/L Anion Gap (3-11) BUN (7-18) mg/dl Creatinine (0.6-1.2) mg/dl Est Cr Clr Drug Dosing ml/min Est GFR ( Amer) ml/min Est GFR (Non-Af Amer) ml/min BUN/Creatinine Ratio (10-20) Glucose (70-99) mg/dl POC Glucose 276 H 221 H (70-99) mg/dl Estimat Average Glucose mg/dl Hemoglobin A1c (4.5-5.6) % Calcium (8.5-10.1) mg/dl Total Bilirubin (0.2-1) mg/dl AST (15-37) U/L ALT (12-78) U/L Alkaline Phosphatase (45-117) U/L C-Reactive Protein (0-0.29) mg/dl Total Protein (6.4-8.2) gm/dl Albumin (3.4-5.0) gm/dl Globulin (2.5-4.0) gm/dl Albumin/Globulin Ratio (0.9-2) Blood Type O Positive Antibody Screen NEGATIVE Crossmatch See Detail 07/20/21 07/20/21 07/20/21 Range/Units 07:20 07:20 07:20 WBC 1.66 L (4.8-10.8) K/uL RBC 2.57 L (4.2-5.4) M/uL Hgb 7.0 L (12.0-16.0) g/dL Hct 22.8 L (37-47) % MCV 88.7 (80-100) fL MCH 27.2 (25-34) pg MCHC 30.7 L (32-36) g/dL RDW Std Deviation 54.2 H (36.4-46.3) fL RDW Coeff of Karina 16.7 H (11.5-14.5) % Plt Count 32 L (130-400) K/uL MPV 10.1 (7.4-10.4) fL Immature Gran % (Auto) 0.6 % Neut % (Auto) 78.9 % Lymph % (Auto) 15.1 % Terry % (Auto) 5.4 % Eos % (Auto) 0.0 % Baso % (Auto) 0.0 % Neut # (Auto) 1.31 L (1.4-6.5) K/uL Lymph # (Auto) 0.25 L (1.2-3.4) K/uL Terry # (Auto) 0.09 L (0.11-0.59) K/uL Eos # (Auto) 0.00 (0-0.5) K/uL Baso # (Auto) 0.00 (0-0.2) K/uL Immature Gran # (Auto) 0.01 (0.00-0.02) K/uL RBC Morphology Unremarkable Sodium 143 (136-145) mmol/L Potassium 3.9 (3.5-5.1) mmol/L Chloride 114 H (98-107) mmol/L Carbon Dioxide 22 (21-32) mmol/L Anion Gap 7.0 (3-11) BUN 51 H (7-18) mg/dl Creatinine 2.34 H (0.6-1.2) mg/dl Est Cr Clr Drug Dosing 21.8 ml/min Est GFR ( Amer) 24.5 ml/min Est GFR (Non-Af Amer) 21.1 ml/min BUN/Creatinine Ratio 22.0 H (10-20) Glucose 225 H (70-99) mg/dl POC Glucose (70-99) mg/dl Estimat Average Glucose 166 mg/dl Hemoglobin A1c 7.4 H (4.5-5.6) % Calcium 8.0 L (8.5-10.1) mg/dl Total Bilirubin 1.2 H (0.2-1) mg/dl AST 31 (15-37) U/L ALT 23 (12-78) U/L Alkaline Phosphatase 117 (45-117) U/L C-Reactive Protein 5.04 H (0-0.29) mg/dl Total Protein 6.9 (6.4-8.2) gm/dl Albumin 2.0 L (3.4-5.0) gm/dl Globulin 4.9 H (2.5-4.0) gm/dl Albumin/Globulin Ratio 0.4 L (0.9-2) Blood Type Antibody Screen Crossmatch 07/20/21 Range/Units 03:09 WBC (4.8-10.8) K/uL RBC (4.2-5.4) M/uL Hgb (12.0-16.0) g/dL Hct (37-47) % MCV (80-100) fL MCH (25-34) pg MCHC (32-36) g/dL RDW Std Deviation (36.4-46.3) fL RDW Coeff of Kraina (11.5-14.5) % Plt Count (130-400) K/uL MPV (7.4-10.4) fL Immature Gran % (Auto) % Neut % (Auto) % Lymph % (Auto) % Terry % (Auto) % Eos % (Auto) % Baso % (Auto) % Neut # (Auto) (1.4-6.5) K/uL Lymph # (Auto) (1.2-3.4) K/uL Terry # (Auto) (0.11-0.59) K/uL Eos # (Auto) (0-0.5) K/uL Baso # (Auto) (0-0.2) K/uL Immature Gran # (Auto) (0.00-0.02) K/uL RBC Morphology Sodium (136-145) mmol/L Potassium (3.5-5.1) mmol/L Chloride (98-107) mmol/L Carbon Dioxide (21-32) mmol/L Anion Gap (3-11) BUN (7-18) mg/dl Creatinine (0.6-1.2) mg/dl Est Cr Clr Drug Dosing ml/min Est GFR ( Amer) ml/min Est GFR (Non-Af Amer) ml/min BUN/Creatinine Ratio (10-20) Glucose (70-99) mg/dl POC Glucose 289 H (70-99) mg/dl Estimat Average Glucose mg/dl Hemoglobin A1c (4.5-5.6) % Calcium (8.5-10.1) mg/dl Total Bilirubin (0.2-1) mg/dl AST (15-37) U/L ALT (12-78) U/L Alkaline Phosphatase (45-117) U/L C-Reactive Protein (0-0.29) mg/dl Total Protein (6.4-8.2) gm/dl Albumin (3.4-5.0) gm/dl Globulin (2.5-4.0) gm/dl Albumin/Globulin Ratio (0.9-2) Blood Type Antibody Screen Crossmatch PG Care Time/CCT Total # of Minutes Spent Total Time Spent with Patient: Total time spent is greater than 50% in coordination of care (as documented) at patient's floor/unit and/or counseling patient: Coding Level of Care Code 88913 Subseq Hosp Care Lvl 3 Diagnoses COVID-19 U07.1 CKD (chronic kidney disease) stage 4, GFR 15-29 ml/min N18.4 CHF (congestive heart failure) I50.9 Heart failure chronicity: acute Heart failure type: unspecified Nausea and vomiting R11.2 Esophageal varices I85.00 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 K75.81; K74.60 Hypertension I10 Hypertension type: unspecified DM type 2 (diabetes mellitus, type 2) E11.65 Diabetes mellitus complication status: with hyperglycemia Diabetes mellitus correction insulin use: without correction use Pancytopenia D61.818 Acute respiratory failure with hypoxia J96.01 (1) DM type 2 (diabetes mellitus, type 2) Diabetes mellitus complication status: with hyperglycemia 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
[2021-07-20] MEDS ORDERED: rOPINIRole HCL 1 MG TABLET PO SCH (21:00)
[2021-07-20] MEDS: LACTULOSE SYRUP 30 GM/45 ML UDP PO SCH (22:14)
[2021-07-20] MEDS: rOPINIRole HCL 2 MG TABLET PO SCH (22:17)
[2021-07-21] MEDS: INSULIN ASPART 100 UNITS/ML 3 ML PEN SC SCH ×3 (02:19→06:48)
[2021-07-21 06:12] LABS: Hematocrit (blood only) 25.5 % (37-47); Hemoglobin 8.3 g/dL (12.0-16.0); Mean Corpuscular Hemoglobin 28.3 pg (25-34); Mean Corpuscular Hgb Conc 32.5 g/dL (32-36); RDW Coefficient of Variation 16.3 % (11.5-14.5); RDW Standard Deviation 52.4 fL (36.4-46.3); Red Blood Count 2.93 M/uL (4.2-5.4); White Blood Count 3.04 K/uL (4.8-10.8)
[2021-07-21 06:32] LABS: Platelet Count 31 K/uL (130-400)
[2021-07-21 06:43] LABS: Immature Granulocytes # (auto) 0.01 K/uL (0.00-0.02); Immature Granulocytes % (auto) 0.3 %; Lymphocytes # (auto) 0.25 K/uL (1.2-3.4); Lymphocytes % (auto) 8.2 %; Monocytes # (auto) 0.18 K/uL (0.11-0.59); Monocytes % (auto) 5.9 %; Neutrophils % (auto) 85.6 %; RBC Morphology Unremarkable
[2021-07-21 06:45] LABS: Calcium 8.2 mg/dl (8.5-10.1); Creatinine Clr Calc Pharmacy 24.2 ml/min; Est GFR (African American) 27.8 ml/min; Potassium 3.4 mmol/L (3.5-5.1)
[2021-07-21 06:47] LABS: Albumin Globulin Ratio 0.4 (0.9-2); Bilirubin,Total 1.2 mg/dl (0.2-1); C Reactive Protein 4.58 mg/dl (0-0.29); Globulin 4.7 gm/dl (2.5-4.0); Total Protein 6.7 gm/dl (6.4-8.2)
[2021-07-21] MEDS: FOLIC ACID 1 MG TAB PO SCH (08:38)
[2021-07-21] MEDS: carvediloL 12.5 MG TAB PO SCH (08:40)
[2021-07-21] MEDS: rifAXIMin 550 MG TABLET PO SCH (08:40)
[2021-07-21] MEDS: SODIUM BICARBONATE 650 MG TAB PO SCH (08:43)
[2021-07-21] MEDS: hydrALAZINE 10 MG TAB PO SCH ×2 (08:44→14:05)
[2021-07-21] MEDS: LACTULOSE SYRUP 30 GM/45 ML UDP PO SCH (08:45)
[2021-07-21] MEDS: dexAMETHasone 6 MG in SYRINGE 0 ML IV SCH ×2 (08:46→08:54)
[2021-07-21] MEDS: TRIAMCINOLONE ACET 0.1% OINT 15 GM TUBE EXT SCH (08:52)
[2021-07-21] MEDS: NYSTATIN POWDER 15GM BTL EXT SCH ×2 (08:52→14:13)
[2021-07-21] MEDS ORDERED: FUROSEMIDE 40 MG TAB PO SCH (09:00)
[2021-07-21] MEDS ORDERED: PANTOprazole 40 MG TAB PO SCH (09:00)
[2021-07-21] MEDS ORDERED: INSULIN HUMAN NPH SC SCH (09:00)
[2021-07-21] MEDS ORDERED: INSULIN ASPART 100 UNITS/ML 3 ML PEN SC SCH ×2 (11:30→21:00)
--- NOTE | 2021-07-21 12:35 | Pharmacy Report ---
Pharmacy Glycemic Short Note 2 - Date of Service July 21, 2021 - Glycemic Short BSG Results (Last 24 hours): 07/20/21 07/20/21 07/20/21 12:44 16:39 22:06 Glucose POC Glucose 276 H 300 H 330 H* 07/20/21 07/21/21 07/21/21 22:08 02:13 04:47 Glucose POC Glucose 292 H 85 84 07/21/21 07/21/21 07/21/21 05:47 06:46 12:02 Glucose 80 POC Glucose 79 196 H OUTPATIENT ANTIDIABETIC REGIMEN: * Lantus 18 units SC HS * Novolog sliding scale TIDM * HbA1c: 7.4% 07/20/21 ASSESSMENT: 07/21 * BSGs did climb into the upper 200s for much of the day yesterday, but are now less than 100 this AM * Will continue w/ strategy to use NPH for basal needs instead of Lantus as NPH effects should dissipate overnight as steroid effect also tends to wear off at those hours. * Fasting BSG 79 this AM, pt received NPH 10 units x 2 in total (2nd dose w/ dinner) but also had residual Lantus on board from prior evening. Once daily AM NPH should be less likely to precipitate a low BSG. Will also utilize less Novolog at HS if correction is needed to help reduce fasting hypo- risks. 07/20 * Patient presented with hyperglycemia that worsened following receipt of IV steroids for COVID pna. * BSGs have begun to trend down however. * Given the timing of IV dexamethasone in the AM, will change basal insulin to NPH and administer this in the AM to combat steroid induced hyperglycemia * Lantus will be d/c'd until we see if NPH alone is sufficient to provide basal needs. * Will continue "severe" stress level Novolog dosing based upon weight for now. Continue overnight checks for additional correction until hyperglycemia better controlled 07/19 * BR is a 66 year old female recently discharged on 07/12/21 * Presents today with nausea/vomiting, patient is positive for COVID-19 * Ordered dexamethasone 6 mg IV daily (first dose received this afternoon) * BSG this evening is 345 mg/dL - will give one-time IV insulin bolus, stressed Lantus, and Novolog overnigh PLAN FOR INPATIENT GLYCEMIC CONTROL: * Basal insulin * DC Lantus * NPH 24 units Q AM w/ IV dexamethasone * Bolus insulin * NovoLog per scale ACHS and at 0200 * Goal Range: Low 110 mg/dL - High 140 mg/dL * Correction Factor: 20 mg/dL/unit AC (30mg/dL/unit at HS and 0200 and only correct if > 180) * Nutritional / Prandial insulin per carb ratio of 1 unit per 5 grams CHO consumed (1 unit per 10 grams CHO consumed at HS) * Reassess insulin doses with each step down in steroid dose. Of note, total daily insulin doses appeared to be as low as 20-30 units of insulin per day during last admission while not receiving steroids. PLAN FOR DISCHARGE: * HbA1c of 7.4% has improved substantially since last assessed * Goal HbA1c for most patients would be less than 7%, could consider less than 8% in this case due to significant comorbidities * Of note: patient has poor renal function (eCrCl < 30 mL/min at baseline) * Will follow inpatient insulin needs and make recommendations accordingly * Patient may benefit from set dose of insulin with meals in addition to sliding scale
[2021-07-21] MEDS: rOPINIRole HCL 1 MG TABLET PO SCH (14:05)
--- NOTE | 2021-07-21 14:34 | Discharge Summary ---
Date of Service July 21, 2021 Admission HPI Per Admitting Provider This patient is a 64-year-old female with a history of Fowler cirrhosis with esophageal varices, gastric varices, and portal hypertension, hepatic encephalopathy, DM 2, CKD stage III-IV, neuropathy, RLS, pancytopenia, GERD, HTN, chronic pleural effusions, psoriatic arthritis, chronic pancytopenia, who presents to the ER after developing worsening cough with nausea/vomiting/dry heaving over the past several days. She denies any blood in her vomit, no melena or bright red blood per rectum. She was just discharged from the hospital 1 week ago for a rash on her legs. Since that time, she was exposed to her son who had Covid 19 and lives with her. She is fully vaccinated but tested positive for Covid-19 in the ER. She does have some mild shortness of breath but her biggest symptoms are her intractable nausea and vomiting and is unable to take her typical medications. In the ER, she was febrile to 37.9 and was hypertensive in the 190s over 70s. Her pulse ox was 90-91% on room air which is similar to previous. She has chronic pancytopenia and elevated LFTs but says all similar to previous except her H&H is slightly lower than previous at 7.5. Her creatinine is elevated 2.5 which is stable from previous. A KUB x-ray showed gaseous distention of the colon moderate constipation but no obstruction. Chest x-ray showed cardiomegaly with mild central vascular congestion, but no pneumonia. In the ER, she was given 500 mLs of normal saline, IV Tylenol, IV Pepcid, IV Zofran, and 1 dose of IV dexamethasone. She will be admitted for intractable nausea/vomiting in the setting of Covid-19 infection Principal Diagnosis Covid-19 with hypoxia, intractable nausea/vomiting, anemia Discharge Exam Constitutional WD/WN, vitals as above Eyes + anicteric sclerae ENMT external ear and nose normal, oropharynx normal Neck trachea midline, no thyromegaly Respiratory normal respiratory effort Auscultation: + crackles (Mild at bases); no wheezes Cardiovascular RRR, no murmur, no edema Chest (Breasts) Chest: normal inspection of chest Gastrointestinal (Abdomen) normal bowel sounds, soft, nontender, no hepatosplenomegaly Musculoskeletal Extremities: extremities normal to inspection; no cyanosis and no clubbing Skin no rashes, warm and dry Neurologic moves all extremities and awake; no focal motor deficits Psychiatric A+Ox3, euthymic affect Lymphatic no lymphedema Discharge Data Allergies Allergy/AdvReac Type Severity Reaction Status Date / Time Sulfa (Sulfonamide Allergy Intermediate Rash Verified 07/19/21 13:42 Antibiotics) sulfamethoxazole Allergy Intermediate RASH Verified 07/19/21 13:42 trimethoprim Allergy Intermediate RASH Verified 07/19/21 13:42 amlodipine AdvReac Intermediate confusion Verified 07/19/21 13:42 adhesive tape AdvReac Mild ITCHING Verified 07/19/21 13:42 Consultations 07/19/21 15:08 ED Decision to Admit Stat Hospital Course (1) COVID-19: She had symptoms for about 3 days prior to admission, mostly gastrointestinal, but with mild hypoxia to 90% on room air placed on 2 L nasal cannula No evidence of pneumonia on chest x-ray. KUB with some gaseous distention of colon but no obstruction. Weaned off oxygen completely at rest and with exertion on the day of discharge Still with mild cough and some crackles in the lungs but no respiratory distress GI symptoms have significantly improved-no further nausea or vomiting-has tolerated a regular diet -Continue dexamethasone 6 mg p.o. once daily x3 more days after discharge-she had significant hyperglycemia with the surgeon on complete a 10-day course -Did not administer Remdesivir due to poor renal function -No need for aggressive pulmonary toilet at this point as she does not have significant respiratory symptoms -Acetaminophen as needed for fevers-none further since admission Doing well and stable for discharge (2) CKD (chronic kidney disease) stage 4, GFR 15-29 ml/min: Creatinine remains at baseline around 2.1 -Avoid nephrotoxins -renally dose meds when appropriate -follow BMP -Continue sodium bicarbonate p.o. twice daily -continue home Lasix (3) CHF (congestive heart failure): Chronic diastolic CHF, stable Restarted home Lasix now that she is no longer vomiting (4) Nausea and vomiting: As above, secondary to COVID-19 Now resolved Tolerating regular diet (5) Esophageal varices: History of such, no hematemesis with this vomiting Continue Protonix (6) Liver cirrhosis secondary to FOWLER: Compensated currently, with pancytopenia and elevated INR, creatinine stable at 2.1 Continue rifaximin, carvedilol for portal hypertension Continue home Lasix Restarted home lactulose after vomiting diarrhea resolved, she is moving her bowels on the day of discharge She has long history of hepatic encephalopathy (7) Hypertension: Blood pressure is quite elevated upon arrival and remains somewhat elevated today but improved from previous Received IV hydralazine as needed Continue carvedilol, increased p.o. hydralazine to 20 mg p.o. 3 times daily up from twice daily (8) DM type 2 (diabetes mellitus, type 2): Hemoglobin A1c uncontrolled at 9.1% earlier this month Will now be on corticosteroids for Covid-19 and is having resultant hyperglycemia Received NPH and NovoLog Consult pharmacy for glycemic control appreciated Plan for increase of Lantus to 22 units for the next 3 days while on dexamethasone at home and then return to 18 units after that Continue home sliding scale insulin Follow-up with endocrinology on Saturday as planned by phone (9) Pancytopenia: Pancytopenia likely secondary to chronic liver disease, however she is undergoing a bone marrow biopsy later this month and follows with do [facility] Hemoglobin down to 7.0 on hospital day #2 Patient was verbally consented for blood transfusion if needed-paper consent was not signed by the patient due to her being in Covid precautions Transfused 1 unit PRBCs and hemoglobin now improved at 8.3 Platelets very low at 32 but this is stable from previous-transfuse platelets if less than 15,000 or develops issues with bleeding (10) Acute respiratory failure with hypoxia: As above, now resolved, secondary to Covid-19 Continue dexamethasone upon discharge x3 more days DVT prophylaxis-SCDs only given significant thrombocytopenia and anemia Disposition- Stable for discharge to home Total Time Total Time Spent Total Time Spent (In Minutes): 45 minutes Discharge Plan Discharge Items Patient Disposition: Home - Home Health Services Reason For Visit: COVID 19, INTRACTABLE N/V Discharge Diagnosis: Covid-19 with hypoxia intractable nausea/vomiting Activity: Resume your previous activity Non-emergency contact: Primary Care Provider Call non-emergency contact if: you have any medication questions and your symptoms worsen Follow-up/Referrals: Rocío Alonso DO [Primary Care Provider] - (Follow-up within 1 to 2 weeks.) Diet: Carb Consistent or DM2 and Low Sodium (2gm) Addtl Attending Provider Instructions: You are admitted with Covid-19 and mildly low oxygen levels as well as nausea and vomiting. You are much improved and you are not requiring any oxygen at the time of discharge. Please continue on the steroid pill called dexamethasone once daily for 3 more days. This will make your blood sugar is high. Because of that, please increase your Lantus to 22 units and take it once daily in the morning for the next 3 days since you already received insulin in the hospital on the morning of 07/21. Please continue your usual sliding scale for your short acting insulin. I have reached out to your diabetes provider, Robson Meng, and his nurse will reach out to you to make sure your blood glucose levels are controlled. Please remain in quarantine for 5 more days to prevent the spread of Covid. Due to your blood pressures being elevated, your hydralazine was increased to 20 mg 3 times a day. Follow-up with your primary care provider within 1 to 2 weeks. Pending Studies at Discharge: No Stand-Alone Forms: My [employer], Smoking Cessation Medications and DC Order Prescriptions: New dexamethasone 6 mg tablet 6 mg PO DAILY Qty: 3 RF: 0 Continued carvedilol 12.5 mg tablet 12.5 mg PO BID Qty: 180 RF: 1 Xifaxan 550 mg tablet 550 mg PO BID Qty: 180 RF: 1 (DME) OneTouch Ultra Blue Test Strip Strip See Rx Instructions .ROUTE .MEDSUPPLY Qty: 100 RF: 1 folic acid 1 mg tablet 1 mg PO BID Qty: 180 RF: 1 sodium bicarbonate 650 mg tablet 1,300 mg PO BID Qty: 180 RF: 1 ropinirole 2 mg tablet See Rx Instructions .ROUTE .COMPLEX Qty: 135 RF: 1 (DME) Dexcom G6 Transmitter Device See Rx Instructions .ROUTE .MEDSUPPLY Qty: 1 RF: 0 (DME) Dexcom G6 Sensor Device See Rx Instructions .ROUTE .MEDSUPPLY Qty: 3 RF: 0 lactulose 20 gram/30 mL solution 45 ml PO BID 30 Days Qty: 2700 RF: 0 ferrous sulfate 325 mg (65 mg iron) tablet,delayed release (DR/EC) 325 mg PO Q OTHER DAY Qty: 30 RF: 5 insulin aspart U-100 [Novolog Flexpen U-100 Insulin] 100 unit/mL (3 mL) insulin pen See Rx Instructions SQ TID Qty: 15 RF: 3 hydroxyzine HCl 25 mg tablet 25 mg PO TID PRN (Reason: Itching) RF: 0 potassium chloride 10 mEq capsule, extended release 10 meq PO DAILY Qty: 30 RF: 0 pantoprazole 40 mg tablet,delayed release (DR/EC) 40 mg PO QAM RF: 0 Forteo 20 mcg/dose (600mcg/2.4mL) Pen Injector 20 mcg SUBCUT DAILY RF: 0 nystatin [Nystop] 100,000 unit/gram Powder 1 applic EXT TID Qty: 15 RF: 0 furosemide 40 mg tablet 40 mg PO DAILY Qty: 30 RF: 0 triamcinolone acetonide 0.1 % ointment 1 applic EXT BID PRN (Reason: Rash) RF: 0 Changed hydralazine 10 mg tablet 20 mg PO TID Qty: 180 RF: 1 Basaglar KwikPen U-100 Insulin 100 unit/mL (3 mL) insulin pen 22 unit subcut QAM Qty: 0 RF: 0 Discharge Orders: Discharge Order (Routine); Ordered 07/21/21 Ordered By: Mali Mejia Admission Data Admit Date/Time: 07/20/21 20:05 Attending Provider: Mali Mejia Admit Provider: Mali Mejia Primary Care Provider: Rocío Alonso Other Providers: Mali Mejia ; Jacob Caballero [facility] Coding Level of Care Code D/C DAY MANAGEMENT >30 MINS Diagnoses COVID-19 U07.1 CKD (chronic kidney disease) stage 4, GFR 15-29 ml/min N18.4 CHF (congestive heart failure) I50.9 Heart failure chronicity: acute Heart failure type: unspecified Nausea and vomiting R11.2 Esophageal varices I85.00 Liver cirrhosis secondary to FOWLER K75.81; K74.60 Hypertension I10 Hypertension type: unspecified DM type 2 (diabetes mellitus, type 2) E11.65 Diabetes mellitus shelter insulin use: without shelter use Diabetes mellitus complication status: with hyperglycemia Pancytopenia D61.818 Acute respiratory failure with hypoxia J96.01
== END 2021-07-21 14:49 | disposition home health service (06) | DRG 177 ==
LOC: EDINP 12:44 → ED 12:44 → EDINP 21:04

== ENCOUNTER 2021-07-23 19:10 | Inpatient (IN) ==
[~2021-07-23 19:10] MED LIST: CALCIUM CHLORIDE 10% 10 ML SYR IV ONE; SODIUM BICARB 8.4% INJ 50 MEQ/50 ML SYR IV ONE; SODIUM CHLORIDE 0.9% 10ML FLUSH IV ONE; VASOPRESSIN 20 UNIT/ML VIAL IV ONE
[2021-07-23] MEDS ORDERED: SODIUM CHLORIDE 0.9% 1000ML 1,000 ML IV SCH (19:30)
--- NOTE | 2021-07-23 19:50 | Emergency Department Note ---
History of Present Illness General Chief Complaint: Respiratory Distress Stated Complaint: RESP DIST/COVID + Time Seen by Provider: 07/23/21 19:15 History of Present Illness Provider Complaint: shortness of breath and cough Onset (ago): week(s) (1) Severity: severe Consistency/Duration: + progressively worsening Relieved By: + nothing Exacerbated By: + exertion, + coughing and + talking Context: + recent illness (Diagnosed with Covid on July 19, 2021, 4 days ago) Known history of: congestive heart failure Associated symptoms: + cough and + chest congestion; no sputum production, no polyuria, no palpitations, no nausea/vomiting, no syncope, no sense of impending doom or no lightheadedness Treatment prior to arrival: oxygen Related Data Home oxygen amount: none Home Medications Medication Instructions Recorded Confirmed Type blood-glucose sensor (Dexcom G6 #3 ea 12/01/20 07/04/21 History Sensor) blood-glucose transmitter (Dexcom #1 ea 12/01/20 07/04/21 History G6 Transmitter) carvedilol 12.5 mg tablet 12.5 mg PO BID #180 tab 01/19/21 07/23/21 Rx rifaximin 550 mg tablet (Xifaxan) 550 mg PO BID #180 tab 01/19/21 07/23/21 Rx lactulose 20 gram/30 mL oral 45 ml PO BID 30 Days #2700 ml 02/07/21 07/23/21 Rx solution pantoprazole 40 mg tablet,delayed 40 mg PO QAM 02/14/21 07/23/21 History release blood sugar diagnostic (OneTouch #100 ea 02/15/21 07/04/21 Rx Ultra Blue Test Strip) ferrous sulfate 325 mg (65 mg 325 mg PO Q OTHER DAY #30 tab 04/27/21 07/23/21 Rx iron) tablet,delayed release insulin aspart U-100 100 unit/mL See Rx Instructions SQ TID #15 ml 04/27/21 07/23/21 Rx (3 mL) subcutaneous pen (Novolog Flexpen U-100 Insulin aspart) folic acid 1 mg tablet 1 mg PO BID #180 tab 05/14/21 07/23/21 Rx sodium bicarbonate 650 mg tablet 1,300 mg PO BID #180 tab 06/04/21 07/23/21 Rx ropinirole 2 mg tablet See Rx Instructions .ROUTE 06/15/21 07/23/21 Rx .COMPLEX #135 tab hydroxyzine HCl 25 mg tablet 25 mg PO TID PRN 06/27/21 07/23/21 History potassium chloride 10 mEq 10 meq PO DAILY #30 cap 06/30/21 07/23/21 Rx capsule,extended release teriparatide 20 mcg/dose (600 20 mcg SUBCUT DAILY 07/10/21 07/23/21 History mcg/2.4 mL) subcutaneous pen injector (Forteo) furosemide 40 mg tablet 40 mg PO DAILY #30 tab 07/12/21 07/23/21 Rx nystatin 100,000 unit/gram topical 1 applic EXT TID #15 g 07/12/21 07/23/21 Rx powder (Nystop) triamcinolone acetonide 0.1 % 1 applic EXT BID PRN 07/19/21 07/23/21 History topical ointment dexamethasone 6 mg tablet 6 mg PO DAILY #3 tab 07/21/21 07/23/21 Rx hydralazine 10 mg tablet 20 mg PO TID #180 tab 07/21/21 07/23/21 Rx insulin glargine 100 unit/mL (3 22 unit SUBCUT QAM #0 ml 07/21/21 07/23/21 Rx mL) subcutaneous pen (Basaglar KwikPen U-100 Insulin) Allergies Allergy/AdvReac Type Severity Reaction Status Date / Time Sulfa (Sulfonamide Allergy Intermediate Rash Verified 07/23/21 20:13 Antibiotics) sulfamethoxazole Allergy Intermediate RASH Verified 07/23/21 20:13 trimethoprim Allergy Intermediate RASH Verified 07/23/21 20:13 amlodipine AdvReac Intermediate confusion Verified 07/23/21 20:13 adhesive tape AdvReac Mild ITCHING Verified 07/23/21 20:13 Past Med/Surg History Medical History Acute blood loss anemia Anemia of chronic disease Anxiety Bilateral high frequency sensorineural hearing loss CHF (congestive heart failure) Chronic kidney disease, stage 3 (moderate) CKD (chronic kidney disease) stage 4, GFR 15-29 ml/min Diverticular disease DM type 2 (diabetes mellitus, type 2) Duodenal ulcer Eczematid-like purpura of dou[place] and [place] Esophageal varices Gastric ulcer GERD (gastroesophageal reflux disease) History of GI bleed 03/2020 History of recent blood transfusion (~06/2019) Hyperlipidemia Hypertension 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 Lower GI bleed Nausea and vomiting after administration of anesthetic agent On home oxygen therapy 2L prn for SOB Osteoarthritis Osteoporosis Pancytopenia Pleural effusion Psoriatic arthritis Right shoulder pain Risk for falls Surgical History H/O esophagogastroduodenoscopy 03/21/20 Dr. Shivani Carmen- EGD History of anesthesia reaction difficult to wake after bladder tack sx History of bilateral cataract extraction History of bladder surgery bladder tack History of colonoscopy History of esophagogastroduodenoscopy (EGD) multiple---last 06/22/19 [place] [facility] [place] of [place]miarthroplasty of right shoulder January 2018 post fracture History of repair of right rotator cuff History of revision of total shoulder arthroplasty (12/29/18) Right shoulder, 12/29/18 History of shoulder surgery (~11/2019) Had right total arthroplasty removed 11/2019 History of thoracentesis (~10/05/19) left History of tooth extraction all teeth S/P ORIF (open reduction internal fixation) fracture R shoulder, January 2018 S/P shoulder surgery (11/18/19) R TSA removal, I&D, placement of abx spacer Family History Grandmother (Paternal) Family history of diabetes mellitus Father COPD (chronic obstructive pulmonary disease) Mother Hypertension Family/Other Cancer Sister Ovarian cancer Other No family history of adverse response to anesthesia Denies family history of Prostate cancer Myocardial infarction Breast cancer Colorectal cancer Social History Smoking Status: Former smoker Tobacco Type: Cigarettes Age Started Using Tobacco: 17; Age Quit Using Tobacco: 31; packs per day: 1; Second Hand Exposure: No; Hx Alcohol Use: No Hx Substance Use: No Preferred Language: Chinese Communication Ability: Effective Visual Impairment: Limited Hearing Ability: Hard of Hearing Lead Cashier Required: No Beliefs That Will Affect Care: None marital status: Current Living Situation: Spouse Current Living Situation Comment: Lives with and son current occupational status: retired How many Children do You have: 2 Feels Safe at Home: Yes Childhood Exposure to Second-Hand Smoke: Yes Diet Comment: regular during the past year weight has: remained stable Dental Care, Regularly: No Physical Activity Frequency: Does not Exercise Seatbelt Use: always Sunscreen Use: Yes Do you think of yourself as: straight/heterosexual Gender Identity: Female Assistive Devices: Cane Review of Systems A total of 10 systems reviewed and were otherwise negative Physical Exam Vital Signs: Vital Signs - 24 hr 07/23/21 19:30 07/23/21 19:34 07/23/21 21:25 Temperature 36.5 C Temperature Source Oral Pulse Rate 68 68 Pulse Rate [Left A pical] 68 Respiratory Rate 26 H 19 18 Respiratory Effort / Characteristics Non-Labored Sponta neous Non-Labored Sponta neous Respiratory Depth Normal Normal Respiratory Patter n Regular Blood Pressure 181/90 H 188/90 H Blood Pressure [Ri ght Arm] 172/84 H Blood Pressure Diana n 120 122 Blood Pressure Diana n [Right Arm] 113 Blood Pressure Pos ition [Right Arm] Lying Pulse Oximetry 93 93 92 Oxygen Delivery Me thod Nasal Cannula Nasal Cannula Oxygen Flow Rate 4 4 4 Sepsis Recent Feve r Within 48 Hours No Sepsis New/Unexpla ined Change in Men shan Status N/A Sepsis Action Take n by Nursing No Action Required Physical Exam: Physical Exam HENT: Exam performed. -Head: Normocephalic and atraumatic. -Right Ear: External ear normal. No mastoid tenderness. -Left Ear: External ear normal. No mastoid tenderness. -Mouth/Throat: The oropharynx is clear and moist. No trismus in the jaw. No dental abscesses or uvula swelling. No oropharyngeal exudate or tonsillar abscesses. EYES: Conjunctivae and EOM are normal. Pupils are equal, round, and reactive to light. Right eye exhibits no discharge. Left eye exhibits no discharge. No scleral icterus. NECK: Normal range of motion. Neck supple. No JVD present. No spinous process tenderness present. No carotid bruit present. No rigidity. No tracheal deviation and normal range of motion present. No Brudzinski's sign and no Kernig's sign noted. CV: Normal rate, regular rhythm, normal heart sounds and intact distal pulses. There is no peripheral edema. Palpable radial pulses bue. PULM/CHEST: Tachypneic. Rhonchi bilaterally. ABD: The abdomen is soft. Bowel sounds are normal. She has no distension. No mass is present. There is no tenderness. There is no rebound, no guarding, no Quinones's sign and no tenderness at McBurney's point. Rovsig negative MUSC/SKEL: Normal range of motion. There is no peripheral edema, tenderness or deformity. LYMPH: No cervical adenopathy. NEURO: She is alert and oriented to person, place, and time. She has normal strength. No cranial nerve deficit or sensory deficit. Coordination and gait normal. GCS eye subscore is 4. GCS verbal subscore is 5. GCS motor subscore is 6. Cerebellar tests wnl. SKIN: Skin is warm and dry. She is not diaphoretic. PSYCH: She has a normal mood and affect. Behavior is normal. Judgment and thought content normal. Course Course 1914: The patient was evaluated in room B8. A complete history and physical exam was performed Cardiac monitoring: An order was placed for continuous cardiac monitoring. The monitor shows a rate of 90 with sinus rhythm Patient was found to be hypoxic at 84% on room air. Patient was placed on 4 L nasal cannula which improved her oxygen saturation. EMR reviewed. Patient was discharged from the hospital On July 21, 2021, 2 days ago by the [facility]. She was admitted from July 19 to July 21, 2021. Per the discharge summary the patient was discharged with dexamethasone 6 mg p.o. daily and the patient was weaned off of oxygen completely at rest and with exertion on the day of exertion. Remdesivir was not administered due to poor renal function. Patient had a hemoglobin of 7 on day 2 of admission and was transfused 1 unit which improved her hemoglobin to 8.3. 2054: Vital signs stable on supplemental oxygen via nasal cannula. Hemoglobin 9.3. Platelet count 41. Creatinine 2.55. Lactic 3.2. Troponin negative. Procalcitonin 0.57. Chest x-ray shows groundglass opacities with cardiomegaly and mild pulmonary edema. Patient will be admitted to the [facility] team Dr. Linares notified. Decadron was taken with the patient prior to arrival so no Decadron given the emergency department today. Administered Medications Discontinued Medications Sodium Chloride (Nss 1000ml) 1,000 mls @ 999 mls/hr IV .Q1H1M BOBBY Stop: 07/23/21 20:30 Last Admin: 07/23/21 20:18 Dose: Not Given Documented by: [id number] Medical Decision Making Laboratory Data Result diagrams: 07/23/21 20:05 07/23/21 20:05 Lab Results 07/23/21 07/23/21 07/23/21 Range/Units 19:55 20:05 20:05 WBC (4.8-10.8) K/uL RBC (4.2-5.4) M/uL Hgb (12.0-16.0) g/dL Hct (37-47) % MCV (80-100) fL MCH (25-34) pg MCHC (32-36) g/dL RDW Std Deviation (36.4-46.3) fL RDW Coeff of Karina (11.5-14.5) % Plt Count (130-400) K/uL Immature Gran % (Auto) % Neut % (Auto) % Lymph % (Auto) % [place] % (Auto) % Eos % (Auto) % Baso % (Auto) % Neut # (Auto) (1.4-6.5) K/uL Lymph # (Auto) (1.2-3.4) K/uL [place] # (Auto) (0.11-0.59) K/uL Eos # (Auto) (0-0.5) K/uL Baso # (Auto) (0-0.2) K/uL Immature Gran # (Auto) (0.00-0.02) K/uL Platelet Estimate (Normal) Acanthocytes (Spur) Schistocytes PT (9.0-12.0) Seconds INR (0.9-1.1) APTT (21.0-31.0) Seconds PTT Ratio VBG pH 7.44 H (7.36-7.41) VBG pCO2 31 L (38-50) mmHg VBG pO2 61 mmHg VBG HCO3 21 mmol/L VBG O2 Saturation 90.7 % VBG Base Excess -2.9 mEq/L Barometric Pressure 734.2 mm/Hg Sodium 142 (136-145) mmol/L Potassium 3.6 (3.5-5.1) mmol/L Chloride 111 H (98-107) mmol/L Carbon Dioxide 21 (21-32) mmol/L Anion Gap 10.0 (3-11) BUN 73 H (7-18) mg/dl Creatinine 2.55 H (0.6-1.2) mg/dl Est Cr Clr Drug Dosing 21.3 ml/min Est GFR ( Amer) 22.1 ml/min Est GFR (Non-Af Amer) 19.0 ml/min BUN/Creatinine Ratio 28.5 H (10-20) Glucose 197 H (70-99) mg/dl Lactate 3.2 H* (0.4-2.0) mmol/L Calcium 8.1 L (8.5-10.1) mg/dl Magnesium 2.2 (1.8-2.4) mg/dl Total Bilirubin 1.5 H (0.2-1) mg/dl AST 57 H (15-37) U/L ALT 34 (12-78) Alkaline Phosphatase 140 H (45-117) U/L Troponin I < 0.015 (0-0.045) ng/ml Total Protein 7.2 (6.4-8.2) gm/dl Albumin 2.1 L (3.4-5.0) gm/dl Globulin 5.1 H (2.5-4.0) gm/dl Albumin/Globulin Ratio 0.4 L (0.9-2) Procalcitonin (0-0.5) ng/ml 07/23/21 07/23/21 07/23/21 Range/Units 20:05 20:05 20:05 WBC 6.57 (4.8-10.8) K/uL RBC 3.28 L (4.2-5.4) M/uL Hgb 9.3 L (12.0-16.0) g/dL Hct 28.5 L (37-47) % MCV 86.9 (80-100) fL MCH 28.4 (25-34) pg MCHC 32.6 (32-36) g/dL RDW Std Deviation 53.1 H (36.4-46.3) fL RDW Coeff of Karina 16.6 H (11.5-14.5) % Plt Count 41 L (130-400) K/uL Immature Gran % (Auto) 1.1 % Neut % (Auto) 91.9 % Lymph % (Auto) 3.3 % [place] % (Auto) 3.5 % Eos % (Auto) 0.0 % Baso % (Auto) 0.2 % Neut # (Auto) 6.04 (1.4-6.5) K/uL Lymph # (Auto) 0.22 L (1.2-3.4) K/uL [place] # (Auto) 0.23 (0.11-0.59) K/uL Eos # (Auto) 0.00 (0-0.5) K/uL Baso # (Auto) 0.01 (0-0.2) K/uL Immature Gran # (Auto) 0.07 H (0.00-0.02) K/uL Platelet Estimate Decreased L (Normal) Acanthocytes (Spur) 1+ Schistocytes 1+ PT 13.8 H (9.0-12.0) Seconds INR 1.4 H (0.9-1.1) APTT 31.6 H (21.0-31.0) Seconds PTT Ratio 1.2 VBG pH (7.36-7.41) VBG pCO2 (38-50) mmHg VBG pO2 mmHg VBG HCO3 mmol/L VBG O2 Saturation % VBG Base Excess mEq/L Barometric Pressure mm/Hg Sodium (136-145) mmol/L Potassium (3.5-5.1) mmol/L Chloride (98-107) mmol/L Carbon Dioxide (21-32) mmol/L Anion Gap (3-11) BUN (7-18) mg/dl Creatinine (0.6-1.2) mg/dl Est Cr Clr Drug Dosing ml/min Est GFR ( Amer) ml/min Est GFR (Non-Af Amer) ml/min BUN/Creatinine Ratio (10-20) Glucose (70-99) mg/dl Lactate (0.4-2.0) mmol/L Calcium (8.5-10.1) mg/dl Magnesium (1.8-2.4) mg/dl Total Bilirubin (0.2-1) mg/dl AST (15-37) U/L ALT (12-78) Alkaline Phosphatase (45-117) U/L Troponin I (0-0.045) ng/ml Total Protein (6.4-8.2) gm/dl Albumin (3.4-5.0) gm/dl Globulin (2.5-4.0) gm/dl Albumin/Globulin Ratio (0.9-2) Procalcitonin 0.57 H (0-0.5) ng/ml ECG Data Interpretation: Sinus rhythm with rate of 68. UT QRS and QTc intervals within normal limits. No ST elevation or ST depression. [facility] Narrative 1914: The patient was evaluated in room B8. A complete history and physical exam was performed Cardiac monitoring: An order was placed for continuous cardiac monitoring. The monitor shows a rate of 90 with sinus rhythm Patient was found to be hypoxic at 84% on room air. Patient was placed on 4 L nasal cannula which improved her oxygen saturation. EMR reviewed. Patient was discharged from the hospital On July 21, 2021, 2 days ago by the [facility] team. She was admitted from July 19 to July 21, 2021. Per the discharge summary the patient was discharged with dexamethasone 6 mg p.o. daily and the patient was weaned off of oxygen completely at rest and with exertion on the day of exertion. Remdesivir was not administered due to poor renal function. Patient had a hemoglobin of 7 on day 2 of admission and was transfused 1 unit which improved her hemoglobin to 8.3. 2054: Vital signs stable on supplemental oxygen via nasal cannula. Hemoglobin 9.3. Platelet count 41. Creatinine 2.55. Lactic 3.2. Troponin negative. Procalcitonin 0.57. Chest x-ray shows groundglass opacities with cardiomegaly and mild pulmonary edema. Patient will be admitted to the [facility] team Dr. Linares notified. Decadron was taken with the patient prior to arrival so no Decadron given the emergency department today. Impression & Plan Hypoxia, Pneumonia due to 2019 novel coronavirus Critical Care Time Critical Care Time: Yes Total Critical Care Time: 40 I have personally spent greater than 40 minutes of critical care time in the direct management of this patient. This includes bedside care, interpretation of diagnostic studies, and testing, discussion with consultants, patient, and family members, and other required patient management activities. This 40 minutes is in excess of all separately billable procedures. Discharge Plan Visit Data Chief Complaint: Respiratory Distress Stated Complaint: RESP DIST/COVID + ED Provider: Mahendra Garcia Discharge Problem: Hypoxia, Pneumonia due to 2019 novel coronavirus Patient Disposition: Admitted As Inpatient Forms Stand Alone Forms: My [facility] Prescriptions Prescriptions: No Action carvedilol 12.5 mg tablet 12.5 mg PO BID Qty: 180 RF: 1 Xifaxan 550 mg tablet 550 mg PO BID Qty: 180 RF: 1 (DME) OneTouch Ultra Blue Test Strip Strip See Rx Instructions .ROUTE .MEDSUPPLY Qty: 100 RF: 1 folic acid 1 mg tablet 1 mg PO BID Qty: 180 RF: 1 sodium bicarbonate 650 mg tablet 1,300 mg PO BID Qty: 180 RF: 1 ropinirole 2 mg tablet See Rx Instructions .ROUTE .COMPLEX Qty: 135 RF: 1 (DME) Dexcom G6 Transmitter Device See Rx Instructions .ROUTE .MEDSUPPLY Qty: 1 RF: 0 (DME) Dexcom G6 Sensor Device See Rx Instructions .ROUTE .MEDSUPPLY Qty: 3 RF: 0 lactulose 20 gram/30 mL solution 45 ml PO BID 30 Days Qty: 2700 RF: 0 ferrous sulfate 325 mg (65 mg iron) tablet,delayed release (DR/EC) 325 mg PO Q OTHER DAY Qty: 30 RF: 5 insulin aspart U-100 [Novolog Flexpen U-100 Insulin] 100 unit/mL (3 mL) insulin pen See Rx Instructions SQ TID Qty: 15 RF: 3 hydroxyzine HCl 25 mg tablet 25 mg PO TID PRN (Reason: Itching) RF: 0 potassium chloride 10 mEq capsule, extended release 10 meq PO DAILY Qty: 30 RF: 0 pantoprazole 40 mg tablet,delayed release (DR/EC) 40 mg PO QAM RF: 0 Forteo 20 mcg/dose (600mcg/2.4mL) Pen Injector 20 mcg SUBCUT DAILY RF: 0 nystatin [Nystop] 100,000 unit/gram Powder 1 applic EXT TID Qty: 15 RF: 0 furosemide 40 mg tablet 40 mg PO DAILY Qty: 30 RF: 0 triamcinolone acetonide 0.1 % ointment 1 applic EXT BID PRN (Reason: Rash) RF: 0 dexamethasone 6 mg tablet 6 mg PO DAILY Qty: 3 RF: 0 hydralazine 10 mg tablet 20 mg PO TID Qty: 180 RF: 1 Basaglar KwikPen U-100 Insulin 100 unit/mL (3 mL) insulin pen 22 unit subcut QAM Qty: 0 RF: 0 Referrals Referrals: Rocío Alonso, [Primary Care Provider] -
--- NOTE | 2021-07-23 19:50 | XRay Report ---
XR chest 1V portable HISTORY: SEPSIS COMPARISON: Chest 07/19/2021. FINDINGS: No pneumothorax. The heart remains enlarged. There are progressive peripheral hazy airspace opacities within the mid to lower lung zones. Diffuse interstitial thickening is also noted. Postope rative changes again noted within the right shoulder. IMPRESSION: 1. Progressive hazy peripheral airspace opacities within the mid to lower lung zones. This likely rep resents a viral pneumonia. 2. Cardiomegaly and mild interstitial pulmonary edema persists. ACT 112: Negative or not required by law. Electronically signed by: James Murillo M.D. 07/23/2021 7:48 PM
[2021-07-23 20:17] LABS: Mean Corpuscular Hgb Conc 32.6 g/dL (32-36)
[2021-07-23 20:20] LABS: Base Excess VBG -2.9 mEq/L; Oxygen Saturation VBG 90.7 %; pH VBG 7.44 (7.36-7.41)
[2021-07-23 20:34] LABS: Alanine Aminotransferase 34 (12-78); Albumin Level 2.1 gm/dl (3.4-5.0); Aspartate Aminotransferase 57 U/L (15-37); BUN Creatinine Ratio 28.5 (10-20); Blood Urea Nitrogen 73 mg/dl (7-18); Calcium 8.1 mg/dl (8.5-10.1); Carbon Dioxide 21 mmol/L (21-32); Chloride 111 mmol/L (98-107); Creatinine Clr Calc Pharmacy 21.3 ml/min; Est GFR (African American) 22.1 ml/min; Glucose 197 mg/dl (70-99); Magnesium 2.2 mg/dl (1.8-2.4); Potassium 3.6 mmol/L (3.5-5.1); Sodium 142 mmol/L (136-145)
[2021-07-23 20:35] LABS: INR 1.4 (0.9-1.1); Partial Thromboplastin Ratio 1.2; Partial Thromboplastin Time 31.6 Seconds (21.0-31.0); Prothrombin Time 13.8 Seconds (9.0-12.0)
[2021-07-23 20:39] LABS: Albumin Globulin Ratio 0.4 (0.9-2); Alkaline Phosphatase 140 U/L (45-117); Bilirubin,Total 1.5 mg/dl (0.2-1); Globulin 5.1 gm/dl (2.5-4.0); Total Protein 7.2 gm/dl (6.4-8.2); Troponin I < 0.015 ng/ml (0-0.045)
[2021-07-23 20:49] LABS: Acanthocytes 1+; Basophils # (auto) 0.01 K/uL (0-0.2); Basophils % (auto) 0.2 %; Hematocrit (blood only) 28.5 % (37-47); Hemoglobin 9.3 g/dL (12.0-16.0); Immature Granulocytes # (auto) 0.07 K/uL (0.00-0.02); Immature Granulocytes % (auto) 1.1 %; Lymphocytes # (auto) 0.22 K/uL (1.2-3.4); Lymphocytes % (auto) 3.3 %; Mean Corpuscular Hemoglobin 28.4 pg (25-34); Mean Corpuscular Volume 86.9 fL (80-100); Monocytes # (auto) 0.23 K/uL (0.11-0.59); Monocytes % (auto) 3.5 %; Neutrophils # (auto) 6.04 K/uL (1.4-6.5); Neutrophils % (auto) 91.9 %; Platelet Count 41 K/uL (130-400); Platelet Estimate Decreased (Normal); RDW Coefficient of Variation 16.6 % (11.5-14.5); RDW Standard Deviation 53.1 fL (36.4-46.3); Red Blood Count 3.28 M/uL (4.2-5.4); Schistocytes 1+; White Blood Count 6.57 K/uL (4.8-10.8)
[2021-07-23] MEDS ORDERED: FUROSEMIDE INJ 20 MG/2 ML VIAL IV STA (21:53)
--- NOTE | 2021-07-23 21:54 | History & Physical Report ---
Date of Service July 23, 2021 Assessment & Plan (1) Pneumonia due to 2019 novel coronavirus: Plan: 66yo C female with multiple medical comorbidities presenting with Covid-19 PNA and hypoxia. Patient's symptoms began around 07/16/21. She presents today with worsening cough, SOB and congestion. Hypoxic on arrival to 84% on room air. She was initially managed on 4L NC which was increased to 6L. Saturations have been maintained in upper 80's - mid 90's, however, they drop significantly with removal of supplemental O2, movement and coughing fits. She is presently on HFNC 40 L/min, FiO2 100% saturating 92%. -Admit to medical -Maintain isolation precautions for Covid -Supplemental O2 as needed to maintain saturations of >92%. Patient has had fairly rapid escalation in O2 requirement thus far. -Dexamethasone 6mg IV daily -No Remdesivir secondary to poor renal function (CrCl of 21) -Encourage proning -CRP elevated at 5.26 - consider repeating if patient worsens or fails to improve. Does not meet requirements for Baricitinib thus far. -Consider Tocilizumab if patient's condition worsens -Heparin 5000u TID for DVT ppx -Tessalon and Robitussin PRN -Albuterol PRN -Tylenol PRN (2) CKD (chronic kidney disease) stage 4, GFR 15-29 ml/min: Plan: BUN and Cr are near baseline values -Avoid nephrotoxic agents -Renal dosing where needed -Montior BUN, CR and electrolytes -Continue Sodium Bicarbonate 1300mg po BID (3) CHF (congestive heart failure): Plan: Chronic. Suspect some degree of volume overload in today's presentation. -COntinue Carvedilol 12.5mg po BID -IV Lasix administered x 60mg in ER for worsening respiratory status -Check BNP -Continue Lasix 40mg po daily (4) 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: Plan: Chronic. Stable. Patient with history of gastric and esophagesl varices as well as hepatic encephalopathy -Continue Lactulose and Rifaximin -Continue PO Lasix -Avoid hepatotoxic agents -Monitor LFTs (5) Hypertension: Plan: Blood pressure stable -Continue Carvedilol, Hydralazine (6) DM type 2 (diabetes mellitus, type 2): Plan: Chronic. Blood sugars have been elevated in setting of steroid use -Continue Lantus 22u qHS -ISS -Goal blood sugar 100 - 140 (7) Pancytopenia: Plan: Blood counts are near baseline with mildly increased WBCs - (baseline of 2-3 now 6.57) most likely secondary to infection + steroid use. No bleeding. Platelets of 41 -Monitor CBC -If platelet counts decrease further would discontinue chemoprophylaxis for DVTs Plan: F/E/N - Lasix IV given, monitor I/Os, monitor electroltyes, Low Na diet as tolerated Ppx - Heparin 5000u TID with attention to platelet count Code - Full Dispo -Admission History of Present Illness Chief Complaint: Covid-19 PNA, hypoxia Primary Care Provider: DO Angela Guzman Lane is a 66yo female with multiple medical problems to include MAE with cirrhosis, esophageal and gastric varices and portal hypertension, hepatic encephalopathy. Also with DM, HTN, HLP, GERD, pancytopenia and psoriatic arthritis. Patient was admitted to [facility] from 07/10/21 - 07/12/21 with bilateral LE edema and itchy rash. 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 She was prescribed topical steroids. Sometime after discharge she was exposed to her sone who had Covid19 and lives with her. She returned to the hospital on 07/19/21 with complaint of worsening cough with nausea and vomiting as well as mild SOB that began on 07/16/21. She was diagnosed with Covid-19 infection. She was mildly hypoxic during her hospital stay - 90% on RA and was placed on 2L NC. She was treated with Dexamethasone and was able to be weaned off O2 to room air. She was not administered Remdesivir due to poor renal function (CKD IV). Upon discharge her pulmonary symptoms were resolved and she was discharged to complete Dexamethasone x 3 days. Patient returns today with worsening cough, SOB and congestion. She was found to be 84% on room air. No additional complaints. States that she has not had fevers. Nausea has improved. She is still having severe coughing fits. She did take her Dexamethasone today. ER Course: Lasix 20mg IV + 40mg IV, Tessalon 100mg, Requip 1mg po qHS, Heparin 5000 u Allergies Allergy/AdvReac Type Severity Reaction Status Date / Time Sulfa (Sulfonamide Allergy Intermediate Rash Verified 07/23/21 20:13 Antibiotics) sulfamethoxazole Allergy Intermediate RASH Verified 07/23/21 20:13 trimethoprim Allergy Intermediate RASH Verified 07/23/21 20:13 amlodipine AdvReac Intermediate confusion Verified 07/23/21 20:13 adhesive tape AdvReac Mild ITCHING Verified 07/23/21 20:13 Home Medications Medication Instructions Recorded Confirmed Type blood-glucose sensor (Dexcom G6 #3 ea 12/01/20 07/04/21 History Sensor) blood-glucose transmitter (Dexcom #1 ea 12/01/20 07/04/21 History G6 Transmitter) carvedilol 12.5 mg tablet 12.5 mg PO BID #180 tab 01/19/21 07/23/21 Rx rifaximin 550 mg tablet (Xifaxan) 550 mg PO BID #180 tab 01/19/21 07/23/21 Rx lactulose 20 gram/30 mL oral 45 ml PO BID 30 Days #2700 ml 02/07/21 07/23/21 Rx solution pantoprazole 40 mg tablet,delayed 40 mg PO QAM 02/14/21 07/23/21 History release blood sugar diagnostic (OneTouch #100 ea 02/15/21 07/04/21 Rx Ultra Blue Test Strip) ferrous sulfate 325 mg (65 mg 325 mg PO Q OTHER DAY #30 tab 04/27/21 07/23/21 Rx iron) tablet,delayed release insulin aspart U-100 100 unit/mL See Rx Instructions SQ TID #15 ml 04/27/21 07/23/21 Rx (3 mL) subcutaneous pen (Novolog Flexpen U-100 Insulin aspart) folic acid 1 mg tablet 1 mg PO BID #180 tab 05/14/21 07/23/21 Rx sodium bicarbonate 650 mg tablet 1,300 mg PO BID #180 tab 06/04/21 07/23/21 Rx ropinirole 2 mg tablet See Rx Instructions .ROUTE 06/15/21 07/23/21 Rx .COMPLEX #135 tab hydroxyzine HCl 25 mg tablet 25 mg PO TID PRN 06/27/21 07/23/21 History potassium chloride 10 mEq 10 meq PO DAILY #30 cap 06/30/21 07/23/21 Rx capsule,extended release teriparatide 20 mcg/dose (600 20 mcg SUBCUT DAILY 07/10/21 07/23/21 History mcg/2.4 mL) subcutaneous pen injector (Forteo) furosemide 40 mg tablet 40 mg PO DAILY #30 tab 07/12/21 07/23/21 Rx nystatin 100,000 unit/gram topical 1 applic EXT TID #15 g 07/12/21 07/23/21 Rx powder (Nystop) triamcinolone acetonide 0.1 % 1 applic EXT BID PRN 07/19/21 07/23/21 History topical ointment dexamethasone 6 mg tablet 6 mg PO DAILY #3 tab 07/21/21 07/23/21 Rx hydralazine 10 mg tablet 20 mg PO TID #180 tab 07/21/21 07/23/21 Rx insulin glargine 100 unit/mL (3 22 unit SUBCUT QAM #0 ml 07/21/21 07/23/21 Rx mL) subcutaneous pen (Basaglar KwikPen U-100 Insulin) Past Med/Surg History Medical History Acute blood loss anemia Anemia of chronic disease Anxiety Bilateral high frequency sensorineural hearing loss CHF (congestive heart failure) Chronic kidney disease, stage 3 (moderate) CKD (chronic kidney disease) stage 4, GFR 15-29 ml/min Diverticular disease DM type 2 (diabetes mellitus, type 2) Duodenal ulcer Eczematid-like purpura of doucas and kapetanakis Esophageal varices Gastric ulcer GERD (gastroesophageal reflux disease) History of GI bleed 03/2020 History of recent blood transfusion (~06/2019) Hyperlipidemia Hypertension 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 Lower GI bleed Nausea and vomiting after administration of anesthetic agent On home oxygen therapy 2L prn for SOB Osteoarthritis Osteoporosis Pancytopenia Pleural effusion Psoriatic arthritis Right shoulder pain Risk for falls Surgical History H/O esophagogastroduodenoscopy 03/21/20 Dr. Shivani Carmen- EGD History of anesthesia reaction difficult to wake after bladder tack sx History of bilateral cataract extraction History of bladder surgery bladder tack History of colonoscopy History of esophagogastroduodenoscopy (EGD) multiple---last 06/22/19 Dr. Malena Marie at [facility] History of hemiarthroplasty of right shoulder January 2018 post fracture History of repair of right rotator cuff History of revision of total shoulder arthroplasty (12/29/18) Right shoulder, 12/29/18 History of shoulder surgery (~11/2019) Had right total arthroplasty removed 11/2019 History of thoracentesis (~10/05/19) left History of tooth extraction all teeth S/P ORIF (open reduction internal fixation) fracture R shoulder, January 2018 S/P shoulder surgery (11/18/19) R TSA removal, I&D, placement of abx spacer Family History Grandmother (Paternal) Family history of diabetes mellitus Father COPD (chronic obstructive pulmonary disease) Mother Hypertension Family/Other Cancer Sister Ovarian cancer Other No family history of adverse response to anesthesia Denies family history of Prostate cancer Myocardial infarction Breast cancer Colorectal cancer Social History Smoking Status: Former smoker Tobacco Type: Cigarettes Age Started Using Tobacco: 17; Age Quit Using Tobacco: 31; packs per day: 1; Second Hand Exposure: No; Hx Alcohol Use: No Hx Substance Use: No Preferred Language: Mohawk Communication Ability: Effective Visual Impairment: Limited Hearing Ability: Hard of Hearing Air Conditioning Mechanic Required: No Beliefs That Will Affect Care: None marital status: Current Living Situation: Spouse Current Living Situation Comment: Lives with and son current occupational status: retired How many Children do You have: 2 Feels Safe at Home: Yes Childhood Exposure to Second-Hand Smoke: Yes Diet Comment: regular during the past year weight has: remained stable Dental Care, Regularly: No Physical Activity Frequency: Does not Exercise Seatbelt Use: always Sunscreen Use: Yes Do you think of yourself as: straight/heterosexual Gender Identity: Female Assistive Devices: Cane Review of Systems Review of Systems: All systems reviewed & are unremarkable except as noted in HPI & below Physical Exam Physical Exam: General: patient resting comfortably, NAD, ill in appearance, AA&O x 3 Skin: warm, dry, intact, flaking rash on bilateral LE - no bleeding or secondary infection HEENT: NC/AT, PERRL, EOMI, anicteric sclera, conjunctiva without injection, external ear normal to inspection and nontender, nares patent, moist mucus membranes, dentition intact, no oropharyngeal lesions, neck supple, trachea midline, no LAD, no thyromegaly, no JVD Heart: +S1/S2, regular, no m/r/g Lungs: patient tachypneic, speaking in short sentences, coarse breath sounds with +crackles bilaterally Abd: +BS, soft, NT/ND, no masses/organomegaly/ascites Ext: warm, 2+ pulses in UE/LE bilaterally, no clubbing/cyanosis or edema Neuro: nonfocal, patient AA&O x 4, speech intact, no facial droop, moving all extremities on command with equal strength 5/5 Results & Data Results & Data ([facility]) Vital Signs (Past 12 Hours) Vital Signs Temp Pulse Pulse Resp BP BP Pulse Ox 07/23/21 21:25 68 18 172/84 H 92 07/23/21 19:34 36.5 C 68 19 188/90 H 93 07/23/21 19:30 68 26 H 181/90 H 93 Laboratory Results Laboratory Results WBC 6.57 K/uL (4.8-10.8) 07/23/21 20:05 RBC 3.28 M/uL (4.2-5.4) L 07/23/21 20:05 Hgb 9.3 g/dL (12.0-16.0) L 07/23/21 20:05 Hct 28.5 % (37-47) L 07/23/21 20:05 MCV 86.9 fL (80-100) 07/23/21 20:05 MCH 28.4 pg (25-34) 07/23/21 20:05 MCHC 32.6 g/dL (32-36) 07/23/21 20:05 RDW Std Deviation 53.1 fL (36.4-46.3) H 07/23/21 20:05 RDW Coeff of Karina 16.6 % (11.5-14.5) H 07/23/21 20:05 Plt Count 41 K/uL (130-400) L 07/23/21 20:05 Immature Gran % (Auto) 1.1 % 07/23/21 20:05 Neut % (Auto) 91.9 % 07/23/21 20:05 Lymph % (Auto) 3.3 % 07/23/21 20:05 Trego % (Auto) 3.5 % 07/23/21 20:05 Eos % (Auto) 0.0 % 07/23/21 20:05 Baso % (Auto) 0.2 % 07/23/21 20:05 Neut # (Auto) 6.04 K/uL (1.4-6.5) 07/23/21 20:05 Lymph # (Auto) 0.22 K/uL (1.2-3.4) L 07/23/21 20:05 Trego # (Auto) 0.23 K/uL (0.11-0.59) 07/23/21 20:05 Eos # (Auto) 0.00 K/uL (0-0.5) 07/23/21 20:05 Baso # (Auto) 0.01 K/uL (0-0.2) 07/23/21 20:05 Immature Gran # (Auto) 0.07 K/uL (0.00-0.02) H 07/23/21 20:05 Platelet Estimate Decreased (Normal) L 07/23/21 20:05 Acanthocytes (Spur) 1+ 07/23/21 20:05 Schistocytes 1+ 07/23/21 20:05 PT 13.8 Seconds (9.0-12.0) H 07/23/21 20:05 INR 1.4 (0.9-1.1) H 07/23/21 20:05 APTT 31.6 Seconds (21.0-31.0) H 07/23/21 20:05 PTT Ratio 1.2 07/23/21 20:05 VBG pH 7.44 (7.36-7.41) H 07/23/21 20:05 VBG pCO2 31 mmHg (38-50) L 07/23/21 20:05 VBG pO2 61 mmHg 07/23/21 20:05 VBG HCO3 21 mmol/L 07/23/21 20:05 VBG O2 Saturation 90.7 % 07/23/21 20:05 VBG Base Excess -2.9 mEq/L 07/23/21 20:05 Barometric Pressure 734.2 mm/Hg 07/23/21 20:05 Sodium 142 mmol/L (136-145) 07/23/21 20:05 Potassium 3.6 mmol/L (3.5-5.1) 07/23/21 20:05 Chloride 111 mmol/L (98-107) H 07/23/21 20:05 Carbon Dioxide 21 mmol/L (21-32) 07/23/21 20:05 Anion Gap 10.0 (3-11) 07/23/21 20:05 BUN 73 mg/dl (7-18) H 07/23/21 20:05 Creatinine 2.55 mg/dl (0.6-1.2) H 07/23/21 20:05 Est Cr Clr Drug Dosing 21.3 ml/min 07/23/21 20:05 Est GFR ( Amer) 22.1 ml/min 07/23/21 20:05 Est GFR (Non-Af Amer) 19.0 ml/min 07/23/21 20:05 BUN/Creatinine Ratio 28.5 (10-20) H 07/23/21 20:05 Glucose 197 mg/dl (70-99) H 07/23/21 20:05 POC Glucose 93 mg/dl (70-99) 07/24/21 01:02 Lactate 2.1 mmol/L (0.4-2.0) H* 07/23/21 22:43 Calcium 8.1 mg/dl (8.5-10.1) L 07/23/21 20:05 Magnesium 2.2 mg/dl (1.8-2.4) 07/23/21 20:05 Total Bilirubin 1.5 mg/dl (0.2-1) H 07/23/21 20:05 AST 57 U/L (15-37) H 07/23/21 20:05 ALT 34 (12-78) 07/23/21 20:05 Alkaline Phosphatase 140 U/L (45-117) H 07/23/21 20:05 Lactate Dehydrogenase 597 U/L (84-246) H 07/23/21 20:05 Troponin I < 0.015 ng/ml (0-0.045) 07/23/21 20:05 C-Reactive Protein 5.26 mg/dl (0-0.29) H 07/23/21 20:05 C-Reactive Protein Cancelled 07/23/21 20:05 Total Protein 7.2 gm/dl (6.4-8.2) 07/23/21 20:05 Albumin 2.1 gm/dl (3.4-5.0) L 07/23/21 20:05 Globulin 5.1 gm/dl (2.5-4.0) H 07/23/21 20:05 Albumin/Globulin Ratio 0.4 (0.9-2) L 07/23/21 20:05 Procalcitonin 0.57 ng/ml (0-0.5) H 07/23/21 20:05 Impressions Chest X-Ray 07/23/21 19:26 XR chest 1V portable HISTORY: SEPSIS COMPARISON: Chest 07/19/2021. FINDINGS: No pneumothorax. The heart remains enlarged. There are progressive peripheral hazy airspace opacities within the mid to lower lung zones. Diffuse interstitial thickening is also noted. Postoperative changes again noted within the right shoulder. IMPRESSION: 1. Progressive hazy peripheral airspace opacities within the mid to lower lung zones. This likely represents a viral pneumonia. 2. Cardiomegaly and mild interstitial pulmonary edema persists. ACT 112: Negative or not required by law. Electronically signed by: James Murillo M.D. 07/23/2021 7:48 PM ECG Additional Comments: EKG wtih NSR at 68, normal axis, UL=939, QRS=94, DLn=498, inferior Q waves present, no acute ischemic changes Code Status & VTE Plan VTE Prophylaxis Plan VTE Prophylaxis will be ordered: Yes PG Care Time/CCT Total # of Minutes Spent Total Time Spent with Patient: Total time spent is greater than 50% in coordination of care (as documented) at patient's floor/unit and/or counseling patient: Coding Level of Care Code 49666 Initial Inpt Care Lvl 3 Diagnoses Pneumonia due to 2019 novel coronavirus U07.1; J12.82 CKD (chronic kidney disease) stage 4, GFR 15-29 ml/min N18.4 CHF (congestive heart failure) I50.9 Heart failure chronicity: acute Heart failure type: unspecified 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 K75.81; K74.60 Hypertension I10 Hypertension type: unspecified DM type 2 (diabetes mellitus, type 2) E11.65 Diabetes mellitus roasterman insulin use: without roasterman use Diabetes mellitus complication status: with hyperglycemia Pancytopenia D61.818 (1) CHF (congestive heart failure) Heart failure chronicity: acute Heart failure type: unspecified Qualified Code(s): I50.9 - Heart failure, unspecified (2) Hypertension Hypertension type: unspecified Qualified Code(s): I10 - Essential (primary) hypertension (3) DM type 2 (diabetes mellitus, type 2) Diabetes mellitus roasterman insulin use: without roasterman use Diabetes mellitus complication status: with hyperglycemia Qualified Code(s): E11.65 - Type 2 diabetes mellitus with hyperglycemia
[2021-07-23] MEDS ORDERED: BENZONATATE 100 MG CAPSULE PO PRN (22:56)
[2021-07-23] MEDS ORDERED: TRIAMCINOLONE ACET 0.1% OINT 15 GM TUBE EXT PRN (22:56)
[2021-07-23] MEDS ORDERED: DEXTROSE 50% 50 ML SYRINGE IV PRN (22:56)
[2021-07-23] MEDS ORDERED: GLUCAGON FOR INJ 1 MG VIAL SQ PRN (22:56)
[2021-07-23] MEDS ORDERED: ALBUTEROL HFA 8 GM INHALER INH PRN (22:56)
[2021-07-23] MEDS ORDERED: ONDANSETRON INJ 2 MG/ML 2 ML VIAL IV PRN (22:56)
[2021-07-23] MEDS ORDERED: ACETAMINOPHEN 325 MG TAB PO PRN (22:56)
[2021-07-23] MEDS ORDERED: GLUCOSE 10 TABS/TUBE PO PRN (22:56)
[2021-07-23] MEDS ORDERED: hydrOXYzine HCl 25 MG TAB PO PRN (22:56)
[2021-07-23] MEDS ORDERED: CARBOHYDRATES FOR HYPOGLYCEMIA PO PRN (22:56)
[2021-07-23] MEDS ORDERED: GLUCOSE 40% GEL 15 GM TUBE PO PRN (22:56)
[2021-07-23 23:30] LABS: C Reactive Protein 5.26 mg/dl (0-0.29)
[2021-07-24] MEDS: INSULIN ASPART 100 UNITS/ML VIAL SC SCH ×5 (01:04→21:36)
[2021-07-24] MEDS ORDERED: guaiFENesin/DEXTROM SYRUP 200MG/20MG 10ML UDC PO PRN (01:44)
[2021-07-24] MEDS ORDERED: FUROSEMIDE 40 MG/4 ML VIAL IV ONE ×2 (01:47→17:00)
[2021-07-24] MEDS: rOPINIRole HCL 1 MG TABLET PO SCH ×3 (01:55→21:28)
[2021-07-24] MEDS: HEPARIN SOD 5,000 UNIT/0.5 ML VIAL SQ SCH ×2 (02:18→14:44)
[2021-07-24 05:28] LABS: INR 1.5 (0.9-1.1); Prothrombin Time 14.6 Seconds (9.0-12.0)
[2021-07-24 05:40] LABS: Albumin Level 1.8 gm/dl (3.4-5.0); Calcium 8.2 mg/dl (8.5-10.1); Creatinine Clr Calc Pharmacy 23.1 ml/min; Est GFR (African American) 24.4 ml/min; Potassium 3.8 mmol/L (3.5-5.1)
[2021-07-24 05:45] LABS: Bilirubin,Total 1.8 mg/dl (0.2-1); Hematocrit (blood only) 28.1 % (37-47); Mean Corpuscular Hemoglobin 27.9 pg (25-34); RDW Coefficient of Variation 16.6 % (11.5-14.5); RDW Standard Deviation 53.4 fL (36.4-46.3); Red Blood Count 3.23 M/uL (4.2-5.4); Total Protein 6.3 gm/dl (6.4-8.2); White Blood Count 4.95 K/uL (4.8-10.8)
[2021-07-24 05:50] LABS: Platelet Count 38 K/uL (130-400)
[2021-07-24 05:56] LABS: Immature Granulocytes # (auto) 0.05 K/uL (0.00-0.02); Lymphocytes # (auto) 0.17 K/uL (1.2-3.4); Lymphocytes % (auto) 3.4 %; Monocytes # (auto) 0.25 K/uL (0.11-0.59); Monocytes % (auto) 5.1 %; Neutrophils # (auto) 4.48 K/uL (1.4-6.5); Neutrophils % (auto) 90.5 %; Platelet Estimate SIGNIFIC DECREASED (Normal)
[2021-07-24] MEDS: INSULIN GLARGINE SOLOSTAR 100 UNITS/ML 3 ML PEN SQ SCH (08:34)
[2021-07-24] MEDS: rifAXIMin 550 MG TABLET PO SCH ×2 (08:37→21:28)
[2021-07-24] MEDS: PANTOprazole 40 MG TAB PO SCH (08:38)
[2021-07-24] MEDS: SODIUM BICARBONATE 650 MG TAB PO SCH ×2 (08:38→21:28)
[2021-07-24] MEDS: POTASSIUM CHLORIDE 10 MEQ TABCR PO SCH (08:38)
[2021-07-24] MEDS: FUROSEMIDE 40 MG TAB PO SCH (08:39)
[2021-07-24] MEDS: hydrALAZINE 10 MG TAB PO SCH ×3 (08:39→21:27)
[2021-07-24] MEDS: carvediloL 12.5 MG TAB PO SCH ×2 (08:39→21:28)
[2021-07-24] MEDS: LACTULOSE SYRUP 20 GM/30 ML UDC PO SCH ×2 (08:40→21:29)
[2021-07-24] MEDS: NYSTATIN POWDER 15GM BTL EXT SCH ×3 (08:40→20:31)
[2021-07-24] MEDS: dexAMETHasone 6 MG in SYRINGE 0 ML IV SCH (09:25)
--- NOTE | 2021-07-24 15:53 | Electrocardiogram Report ---
Test Reason : Blood Pressure : / mmHG Vent. Rate : 068 BPM Atrial Rate : 068 BPM P-R Int : 184 ms QRS Dur : 094 ms QT Int : 440 ms P-R-T Axes : 074 077 -05 degrees QTc Int : 467 ms Normal sinus rhythm Possible Inferior infarct , age undetermined Abnormal ECG When compared with ECG of 19-JUL-2021 13:54, Nonspecific T wave abnormality now evident in Inferior leads Nonspecific T wave abnormality, worse in Anterior leads Confirmed by Adam Mcgraw ([id number]) on 07/24/2021 3:52:55 PM Referred By: REFERRED SELF Confirmed By:Adam Mcgraw
--- NOTE | 2021-07-24 17:18 | Hospitalist Progress Note ---
Date of Service July 24, 2021 Assessment & Plan (1) Pneumonia due to 2019 novel coronavirus: Plan: 66yo C female with multiple medical comorbidities presenting with Covid-19 PNA and hypoxia. Patient's symptoms began around 07/16/21. She presents today with worsening cough, SOB and congestion. Hypoxic on arrival to 84% on room air. She was initially managed on 4L NC which was increased to 6L. Saturations have been maintained in upper 80's - mid 90's, however, they drop significantly with removal of supplemental O2, movement and coughing fits. She is presently on HFNC 40 L/min, FiO2 100% saturating 92%. Acute hypoxic respiratory failure 2/2 Covid pneumonia -Admit to medical -Supplemental O2 as needed to maintain saturations of >92%. Patient has had fairly rapid escalation in O2 requirement thus far. -Dexamethasone 6mg IV daily -No Remdesivir secondary to poor renal function (CrCl of 21) -Continue proning/lateral recumbent positions -CRP elevated at 5.26. Did not meet criteria for baricitinib on admission CRP trended -Heparin 5000u TID for DVT ppx, careful attention to platelet count as noted below -Tessalon and Robitussin PRN -Albuterol PRN -Tylenol PRN (2) CKD (chronic kidney disease) stage 4, GFR 15-29 ml/min: Plan: BUN and Cr are near baseline values -Avoid nephrotoxic agents -Renal dosing where needed -Montior BUN, CR and electrolytes -Continue Sodium Bicarbonate 1300mg po BID Creatinine 2.35 today, unclear baseline but appears to be somewhere between 2.02.4. patient has had recurrent HENRIQUE in the past with attempted diuresis for CHF in the past, but at this point is presenting with Covid and also is clinically volume overloaded so we will continue diuresis as noted below. (3) CHF (congestive heart failure): Plan: Acute on chronic -COntinue Carvedilol 12.5mg po BID -IV Lasix administered x 60mg in ER for worsening respiratory status -BNP elevated at 11 K -Continue Lasix 40mg po daily, additional Lasix IV evening dose given 07/24 As noted above patient has had recurrent HENRIQUE in the past with attempted diuresis, but appears to have acute CHF with elevated BNP and this will substantially worsen her Covid prognosis. We will continue to diurese, low threshold to involve nephrology if creatinine bumps. 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 Stable. Patient with history of gastric and esophagesl varices as well as hepatic encephalopathy -Continue Lactulose and Rifaximin -Continue PO Lasix -Avoid hepatotoxic agents -Monitor LFTs (5) Hypertension: Plan: Blood pressure stable -Continue Carvedilol, Hydralazine (6) DM type 2 (diabetes mellitus, type 2): Plan: Chronic. Blood sugars have been elevated in setting of steroid use -Continue Lantus 22u qHS -ISS -Goal blood sugar 100 - 140 (7) Pancytopenia: Plan: Blood counts are near baseline with mildly increased WBCs - (baseline of 2-3 now 6.57) most likely secondary to infection + steroid use. No bleeding. Platelets of 41 -Monitor CBC -Platelets equivocal, 38 today. Trend daily, if downtrending hold heparin DVT prophylaxis for bleeding risk Plan: F/E/N -Lasix as above, monitor I/Os, BMP daily, Low Na diet as tolerated Ppx - Heparin 5000u TID with attention to platelet count Code - Full Dispo-can continues to require inpatient admission Admission and Anticipated Discharge Date Admission Date: July 23, 2021 Subjective Angela reports she feels tired, and is short of breath. Oxygen and being on her belly seems to help. Reports had gotten the Covid vaccination. Denies fever/chills today. No nausea, but is also not hungry. No bleeding. Review of Systems Review of Systems: All systems reviewed & are unremarkable except as noted in Subjective Physical Exam Physical Exam: General: A&Ox3. NAD. Cooperative. HEENT: Atraumatic, normocephalic. Pulm: Intermittently tachypneic, moderate air movement, coarse, trace basilar crackles. Cardiac: RRR, -mrg. Radial pulses intact and symmetrical. Abdominal: Nontender, nondistended, soft. BS present. Skin: Back with ecchymoses over right flank, left back, patient denies injury but reports history of pancytopenia. Nontender to touch. No firm hematoma. Extremities: Warm, dry. Results & Data Results & Data ([facility]) Vital Signs (Past 12 Hours) Vital Signs Pulse Pulse Resp BP BP Pulse Ox 07/24/21 16:00 65 23 124/63 97 07/24/21 15:50 65 23 97 07/24/21 15:40 65 23 97 07/24/21 15:30 65 23 96 07/24/21 15:20 65 24 96 07/24/21 15:10 66 23 96 07/24/21 15:00 66 23 146/66 H 94 07/24/21 14:26 66 22 146/66 H 97 07/24/21 14:10 66 28 H 93 07/24/21 13:03 66 20 126/49 L 97 07/24/21 11:10 70 26 H 93 07/24/21 09:57 68 20 94 07/24/21 09:45 69 18 86 L 07/24/21 07:26 70 28 H 90 07/24/21 06:13 70 24 141/63 H 90 07/24/21 05:42 76 24 89 L PG Care Time/CCT Total # of Minutes Spent Total Time Spent with Patient: Total time spent is greater than 50% in coordination of care (as documented) at patient's floor/unit and/or counseling patient: Coding Level of Care Code 96795 Subseq Hosp Care Lvl 3 Diagnoses Pneumonia due to 2019 novel coronavirus U07.1; J12.82 CKD (chronic kidney disease) stage 4, GFR 15-29 ml/min N18.4 CHF (congestive heart failure) I50.9 Heart failure chronicity: acute Heart failure type: unspecified 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 K75.81; K74.60 Hypertension I10 Hypertension type: unspecified DM type 2 (diabetes mellitus, type 2) E11.65 Diabetes mellitus complication status: with hyperglycemia Diabetes mellitus shelter insulin use: without shelter use Pancytopenia D61.818 (1) DM type 2 (diabetes mellitus, type 2) Diabetes mellitus complication status: with hyperglycemia Diabetes mellitus middle or intermediate school principal insulin use: without middle or intermediate school principal use Qualified Code(s): E11.65 - Type 2 diabetes mellitus with hyperglycemia (2) CHF (congestive heart failure) Heart failure chronicity: acute Heart failure type: unspecified Qualified Code(s): I50.9 - Heart failure, unspecified (3) Hypertension Hypertension type: unspecified Qualified Code(s): I10 - Essential (primary) hypertension
[2021-07-24] MEDS ORDERED: ALBUT/IPRATROP 3MG/0.5MG NEB 3 ML VIAL ONE (22:35)
[2021-07-25 05:48] LABS: Mean Corpuscular Hgb Conc 32.1 g/dL (32-36); Nucleated RBC # (auto) 0.02 K/uL (0-0); Nucleated RBC % (auto) 0.7 %
[2021-07-25 06:11] LABS: BUN Creatinine Ratio 33.1 (10-20); Creatinine Clr Calc Pharmacy 20.9 ml/min; Est GFR (African American) 21.7 ml/min; Est GFR (Non-African American) 18.7 ml/min; Potassium 4.1 mmol/L (3.5-5.1)
[2021-07-25 06:17] LABS: Hematocrit (blood only) 24.9 % (37-47); Mean Corpuscular Hemoglobin 28.4 pg (25-34); Mean Corpuscular Volume 88.3 fL (80-100); RDW Standard Deviation 55.5 fL (36.4-46.3); Red Blood Count 2.82 M/uL (4.2-5.4)
[2021-07-25 06:27] LABS: Platelet Count 35 K/uL (130-400)
[2021-07-25 06:29] LABS: Basophils # (auto) 0.01 K/uL (0-0.2); Basophils % (auto) 0.4 %; Echinocytes 1+; Immature Granulocytes # (auto) 0.03 K/uL (0.00-0.02); Immature Granulocytes % (auto) 1.1 %; Lymphocytes # (auto) 0.21 K/uL (1.2-3.4); Lymphocytes % (auto) 7.8 %; Monocytes # (auto) 0.15 K/uL (0.11-0.59); Monocytes % (auto) 5.6 %; Neutrophils % (auto) 85.1 %; Platelet Estimate Decreased (Normal)
--- NOTE | 2021-07-25 06:54 | Ultrasound Report ---
US venous doppler LE BI CLINICAL HISTORY: Bilateral leg swelling COMPARISON: None available at the time of this dictation. TECHNIQUE: Bilateral lower extremity real-time compression venous ultrasound with Color Doppler imagi ng. Utilizing real-time ultrasonic imaging multiple real time high-resolution ultrasonic images with comp ression and noncompression maneuvers of the deep venous system in addition to color doppler imaging w ere performed from the common femoral vein through the proximal calf veins. FINDINGS: Currently there is normal compressibility of the deep venous system from the common femoral vein thro ugh the proximal calf veins. No current evidence of acute thrombosis is identified. Impression: No evidence of deep venous thrombus. ACT 112: Negative or not required by law. Electronically signed by: Shree Ziegler M.D. 07/25/2021 6:52 AM
[2021-07-25] MEDS ORDERED: FERROUS SULFATE 325 MG TAB PO SCH (09:00)
[2021-07-25] MEDS: INSULIN GLARGINE SOLOSTAR 100 UNITS/ML 3 ML PEN SQ SCH (09:40)
[2021-07-25] MEDS: INSULIN ASPART 100 UNITS/ML VIAL SC SCH ×4 (09:45→20:58)
[2021-07-25] MEDS: carvediloL 12.5 MG TAB PO SCH ×2 (09:47→20:56)
[2021-07-25] MEDS: FUROSEMIDE 40 MG TAB PO SCH (09:48)
[2021-07-25] MEDS: dexAMETHasone 6 MG in SYRINGE 0 ML IV SCH (09:48)
[2021-07-25] MEDS: hydrALAZINE 10 MG TAB PO SCH ×3 (09:49→20:56)
[2021-07-25] MEDS: LACTULOSE SYRUP 20 GM/30 ML UDC PO SCH ×2 (09:50→20:56)
[2021-07-25] MEDS: PANTOprazole 40 MG TAB PO SCH (09:51)
[2021-07-25] MEDS: rifAXIMin 550 MG TABLET PO SCH ×2 (09:51→20:56)
[2021-07-25] MEDS: POTASSIUM CHLORIDE 10 MEQ TABCR PO SCH (09:51)
[2021-07-25] MEDS: SODIUM BICARBONATE 650 MG TAB PO SCH ×2 (09:52→20:57)
[2021-07-25] MEDS: NYSTATIN POWDER 15GM BTL EXT SCH ×3 (09:56→20:57)
[2021-07-25] MEDS: rOPINIRole HCL 1 MG TABLET PO SCH ×2 (16:48→20:55)
--- NOTE | 2021-07-25 18:00 | Hospitalist Progress Note ---
Date of Service July 25, 2021 Assessment & Plan (1) Pneumonia due to 2019 novel coronavirus: Plan: 66yo C female with multiple medical comorbidities presenting with Covid-19 PNA and hypoxia. Patient's symptoms began around 07/16/21. She presents today with worsening cough, SOB and congestion. Hypoxic on arrival to 84% on room air. She was initially managed on 4L NC which was increased to 6L. Saturations have been maintained in upper 80's - mid 90's, however, they drop significantly with removal of supplemental O2, movement and coughing fits. She is presently on HFNC 40 L/min, FiO2 100% saturating 92%. Acute hypoxic respiratory failure 2/2 Covid pneumonia -Supplemental O2 as needed to maintain saturations of >92%. Patient has had fairly rapid escalation in O2 requirement thus far. If hypoxic w maximal high flow --> NIVV -Dexamethasone 6mg IV daily -No Remdesivir secondary to poor renal function (CrCl of 21) -Continue proning/lateral recumbent positions -CRP elevated at 5.26. Did not meet criteria for baricitinib on admission CRP trended -DVT prophylaxis limited by thrombocytopenia -Tessalon and Robitussin PRN -Albuterol PRN -Tylenol PRN (2) CKD (chronic kidney disease) stage 4, GFR 15-29 ml/min: Plan: BUN and Cr are near baseline values -Avoid nephrotoxic agents -Renal dosing where needed -Montior BUN, CR and electrolytes -Continue Sodium Bicarbonate 1300mg po BID Creatinine mildly increased, although clinically remains with increased volume. CXR with increased pulmonary congestion/edema. Prefer to run slightly dry in the setting of Covid, due to uptrending creatinine. See below for Lasix (3) CHF (congestive heart failure): Plan: Acute on chronic -Continue Carvedilol 12.5mg po BID -IV Lasix administered x 60mg in ER for worsening respiratory status -BNP elevated at 11 K -Continue Lasix 40mg po daily, additional Lasix IV evening dose given 07/24 As noted above patient has had recurrent HENRIQUE in the past with attempted diuresis, but appears to have acute CHF with elevated BNP and this will substantially worsen her Covid prognosis. We will continue to diurese, consider nephrology consult if creatinine continues to increase Troponin negative (4) 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: Plan: Chronic. Stable. Patient with history of gastric and esophagesl varices as well as hepatic encephalopathy -Continue Lactulose and Rifaximin -Continue PO Lasix -Avoid hepatotoxic agents -Monitor LFTs (5) Hypertension: Plan: Blood pressure stable -Continue Carvedilol, Hydralazine (6) DM type 2 (diabetes mellitus, type 2): Plan: Chronic. Blood sugars have been elevated in setting of steroid use -Continue Lantus 22u qHS -ISS -Goal blood sugar 100 - 140 (7) Pancytopenia: Plan: Pancytopenic, WBC appears near normal baseline of 23. Platelets decreased to 35, DVT prophylaxis held -Monitor CBC Plan: F/E/N -Lasix as above, monitor I/Os, BMP daily, Low Na diet as tolerated Ppx - Heparin 5000u TID with attention to platelet count Code - Full Dispo-can continues to require inpatient admission Admission and Anticipated Discharge Date Admission Date: July 23, 2021 Subjective Seen at bedside. Feels fatigued, short of breath as high flow nasal cannula came out of her nose and had a desaturation, feels improved with increase in O2 sats following to 90s. No questions or concerns at time of visit, just reports that she feels tired and wants to get better. Denies bleeding. Review of Systems Review of Systems: All systems reviewed & are unremarkable except as noted in Subjective Physical Exam Physical Exam: General: A&Ox3. NAD. Cooperative. HEENT: Atraumatic, normocephalic. Pulm: Coarse, trace bibasilar crackles. Moderate air movement. Cardiac: RRR, -mrg. Radial pulses intact and symmetrical. Abdominal: Nontender, nondistended, soft. BS present. Skin: Back with ecchymoses over right flank, left back, patient denies injury but reports history of pancytopenia. Nontender to touch. No firm hematoma. Extremities: Warm, dry. Results & Data Results & Data ([facility]) Vital Signs (Past 12 Hours) Vital Signs Pulse Pulse Resp BP Pulse Ox 07/25/21 17:49 65 20 71 L 07/25/21 17:32 68 07/25/21 15:45 66 20 90 07/25/21 15:30 65 18 90 07/25/21 14:47 66 21 91 07/25/21 10:24 68 21 89 L 07/25/21 09:35 68 20 159/78 H 92 07/25/21 07:08 66 24 90 PG Care Time/CCT Total # of Minutes Spent Total Time Spent with Patient: Total time spent is greater than 50% in coordination of care (as documented) at patient's floor/unit and/or counseling patient: Coding Level of Care Code 34460 Subseq Hosp Care Lvl 3 Diagnoses Pneumonia due to 2019 novel coronavirus U07.1; J12.82 CKD (chronic kidney disease) stage 4, GFR 15-29 ml/min N18.4 CHF (congestive heart failure) I50.9 Heart failure chronicity: acute Heart failure type: unspecified 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 K75.81; K74.60 Hypertension I10 Hypertension type: unspecified DM type 2 (diabetes mellitus, type 2) E11.65 Diabetes mellitus complication status: with hyperglycemia Diabetes 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 insulin use: without rodent exterminator use Pancytopenia D61.818 (1) DM type 2 (diabetes mellitus, type 2) Diabetes mellitus complication status: with hyperglycemia Diabetes 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 insulin use: without rodent exterminator use Qualified Code(s): E11.65 - Type 2 diabetes mellitus with hyperglycemia (2) CHF (congestive heart failure) Heart failure chronicity: acute Heart failure type: unspecified Qualified Code(s): I50.9 - Heart failure, unspecified (3) Hypertension Hypertension type: unspecified Qualified Code(s): I10 - Essential (primary) hypertension
[2021-07-26 07:26] LABS: Hematocrit (blood only) 27.2 % (37-47); Hemoglobin 8.7 g/dL (12.0-16.0); Mean Corpuscular Hemoglobin 28.2 pg (25-34); RDW Standard Deviation 54.7 fL (36.4-46.3); Red Blood Count 3.09 M/uL (4.2-5.4); White Blood Count 4.21 K/uL (4.8-10.8)
[2021-07-26 07:36] LABS: Basophils # (auto) 0.03 K/uL (0-0.2); Basophils % (auto) 0.7 %; Immature Granulocytes # (auto) 0.07 K/uL (0.00-0.02); Immature Granulocytes % (auto) 1.7 %; Lymphocytes # (auto) 0.37 K/uL (1.2-3.4); Lymphocytes % (auto) 8.8 %; Monocytes # (auto) 0.19 K/uL (0.11-0.59); Monocytes % (auto) 4.5 %; Neutrophils # (auto) 3.55 K/uL (1.4-6.5); Neutrophils % (auto) 84.3 %; Platelet Count 32 K/uL (130-400); Platelet Estimate SIGNIFIC DECREASED (Normal)
[2021-07-26 07:38] LABS: BUN Creatinine Ratio 38.1 (10-20); C Reactive Protein 10.1 mg/dl (0-0.29); Calcium 8.4 mg/dl (8.5-10.1); Creatinine Clr Calc Pharmacy 21.2 ml/min; Est GFR (African American) 23.5 ml/min; Est GFR (Non-African American) 20.3 ml/min; Potassium 3.9 mmol/L (3.5-5.1)
[2021-07-26] MEDS: dexAMETHasone 6 MG in SYRINGE 0 ML IV SCH (07:41)
[2021-07-26] MEDS: NYSTATIN POWDER 15GM BTL EXT SCH (07:41)
[2021-07-26] MEDS: SODIUM BICARBONATE 650 MG TAB PO SCH (07:42)
[2021-07-26] MEDS: PANTOprazole 40 MG TAB PO SCH (07:42)
[2021-07-26] MEDS: POTASSIUM CHLORIDE 10 MEQ TABCR PO SCH (07:42)
[2021-07-26] MEDS: FUROSEMIDE 40 MG TAB PO SCH (07:43)
[2021-07-26] MEDS: carvediloL 12.5 MG TAB PO SCH (07:44)
[2021-07-26] MEDS: hydrALAZINE 10 MG TAB PO SCH (07:44)
[2021-07-26] MEDS: rifAXIMin 550 MG TABLET PO SCH (07:44)
[2021-07-26] MEDS: LACTULOSE SYRUP 20 GM/30 ML UDC PO SCH (07:45)
[2021-07-26] MEDS: INSULIN ASPART 100 UNITS/ML VIAL SC SCH (08:24)
[2021-07-26] MEDS: INSULIN GLARGINE SOLOSTAR 100 UNITS/ML 3 ML PEN SQ SCH (08:24)
[2021-07-26] MEDS ORDERED: FUROSEMIDE 40 MG/4 ML VIAL IV SCH (09:00)
--- NOTE | 2021-07-26 11:38 | Procedure Note ---
Procedure Note Date of Service July 26, 2021 Note INTUBATION PROCEDURE NOTE: Provider: Myles Garnett MD Patient was evaluated and required intubation for PEA cardiac arrest. Sedative agent used: None Paralysis agent used: Procedure was emergent and performed in the setting of PEA cardiac arrest Patient had received about 5 minutes of CPR. She remained bradycardic but did regain a pulse. She had been receiving [id number] ventilation by respiratory therapy. Video laryngoscopy was performed with adequate visualization of the vocal cords. There was thick mucus present which was suctioned. I was able to view the vocal cords. A 7.5 endotracheal tube was passed through the vocal cords without difficulty. End-tidal CO2 was briefly detected. Tube was secured by respiratory therapy. The patient continued with Ambu bag ventilation and was transferred immediately to the ICU. Please see separate notes. Coding CPT Codes Resuscitation - Resuscitation: 32635 Endotracheal Intubation, emergency ([id number]) [facility] [place] ([place]) Resuscitation Resuscitation: 39659 Endotracheal Intubation, emergency
--- NOTE | 2021-07-26 11:41 | Communication Note ---
Date of Service: July 26, 2021 Responded to CODE BLUE on the floor. I arrived to find the patient undergoing compressions. She had received multiple doses of epinephrine and atropine. She had an IO placed. She was receiving [id number] ventilation. She intermittently continued to go into PEA. After her last dose of epinephrine and CPR we were able to get a pulse back. The patient was then intubated. Please see my note. She was immediately transferred to the ICU. Apparently the hospitalist had been in discussions with the patient's . He indicated no additional CPR should be performed. I attempted to contact the patient's as well however there was no answer on the phone. Once the patient arrived in the ICU we continue to assess. She became bra dycardic. I performed a quick bedside critical care echocardiogram which revealed cardiac standstill with smoke filling both ventricles. Patient was pronounced at 1131. Attending hospitalist was notified. Will defer summary, discharge summary, and notification of family to the admitting hospitalist Total of 40 minutes critical care time evaluating managing this patient chloé downing end-of-life issues Coding Level of Care Code Critical Care 1st 30-74 mins Time Spent (min) 40
--- NOTE | 2021-07-26 12:04 | Death Pronouncement Note ---
Date of Service July 26, 2021 Pronouncement Note Admission Date Admission Date: July 23, 2021 Date and Time of Date of : 07/26/21 Time of : 11:31 PCOD Preliminary cause of : Acute hypoxemic respiratory failure due to COVID-19 Contributing Factors (1) Pneumonia due to 2019 novel coronavirus: (2) CKD (chronic kidney disease) stage 4, GFR 15-29 ml/min: (3) CHF (congestive heart failure): (4) 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: (5) Hypertension: (6) DM type 2 (diabetes mellitus, type 2): (7) Pancytopenia: Hospital Course Hospital Course: 66yo C female with multiple medical comorbidities presenting with Covid-19 PNA and hypoxia. Patient's symptoms began around 07/16/21. She presented today with worsening cough, SOB and congestion. Hypoxic on arrival to 84% on room air. She was initially managed on 4L NC which was increased to 6L. Saturations have been maintained in upper 80's - mid 90's, however, they drop significantly with removal of supplemental O2, movement and coughing fits. She progressively increased to HFNC 40 L/min, FiO2 100% saturating 92%. Treated with lasix IV for AoC CHF contributing to presentation with slight Cr rise hx of repeat HENRIQUE with increases in the past. Remdesivir contraindicated due to renal status. CRP <7.5. Pt with cardiac arrest morning of 07/26 in the setting of worsened hypoxia and COVID pneumonia. Intial return of junctional rhythm with pulse and intubation. Discussed care with who noted pt would not want to survive if it was unlikely to return to a meaningful quality of life and had severely worsened over the last month. Did not wish for additional CPR if pt were to rearrest, code status updated. Pt rearrested shortly after and . No cardiac activity on bedside ultrasound by criteral care criteria. Pupils fixed and dilated, no spontaneous respirations, no corneal reflex. Time of 1131 hrs. Summary Additional details: See discharge documentation completed same day Additional Data Family: contacted Attending/PCP notified?: Yes Attending physician: Marco Borrego MD Was code activated?: Yes Autopsy requested?: No Organ bank notified?: No
--- NOTE | 2021-07-26 12:29 | Discharge Summary ---
Date of Service July 26, 2021 Admission HPI Per Admitting Provider Angela Sherman is a 66yo female with multiple medical problems to include MAE with cirrhosis, esophageal and gastric varices and portal hypertension, hepatic encephalopathy. Also with DM, HTN, HLP, GERD, pancytopenia and psoriatic arthritis. Patient was admitted to [facility] from 07/10/21 - 07/12/21 with bilateral LE edema and itchy rash. 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 She was prescribed topical steroids. Sometime after discharge she was exposed to her sone who had Covid19 and lives with her. She returned to the hospital on 07/19/21 with complaint of worsening cough with nausea and vomiting as well as mild SOB that began on 07/16/21. She was diagnosed with Covid-19 infection. She was mildly hypoxic during her hospital stay - 90% on RA and was placed on 2L NC. She was treated with Dexamethasone and was able to be weaned off O2 to room air. She was not administered Remdesivir due to poor renal function (CKD IV). Upon discharge her pulmonary symptoms were resolved and she was discharged to complete Dexamethasone x 3 days. Patient returns today with worsening cough, SOB and congestion. She was found to be 84% on room air. No additional complaints. States that she has not had fevers. Nausea has improved. She is still having severe coughing fits. She did take her Dexamethasone today. ER Course: Lasix 20mg IV + 40mg IV, Tessalon 100mg, Requip 1mg po qHS, Heparin 5000 u Admission Exam Per Admitting Provider General: patient resting comfortably, NAD, ill in appearance, AA&O x 3 Skin: warm, dry, intact, flaking rash on bilateral LE - no bleeding or secondary infection HEENT: NC/AT, PERRL, EOMI, anicteric sclera, conjunctiva without injection, external ear normal to inspection and nontender, nares patent, moist mucus membranes, dentition intact, no oropharyngeal lesions, neck supple, trachea midline, no LAD, no thyromegaly, no JVD Heart: +S1/S2, regular, no m/r/g Lungs: patient tachypneic, speaking in short sentences, coarse breath sounds with +crackles bilaterally Abd: +BS, soft, NT/ND, no masses/organomegaly/ascites Ext: warm, 2+ pulses in UE/LE bilaterally, no clubbing/cyanosis or edema Neuro: nonfocal, patient AA&O x 4, speech intact, no facial droop, moving all extremities on command with equal strength 5/5 Principal Diagnosis Acute hypoxic respiratory failure 2/2 Covid pneumonia Discharge Exam Pupils fixed and dilated No cardiac activity on auscultation, absent radial and femoral pulse No spontaneous respirations consultation No corneal reflex Discharge Data Allergies Allergy/AdvReac Type Severity Reaction Status Date / Time Sulfa (Sulfonamide Allergy Intermediate Rash Verified 07/23/21 20:13 Antibiotics) sulfamethoxazole Allergy Intermediate RASH Verified 07/23/21 20:13 trimethoprim Allergy Intermediate RASH Verified 07/23/21 20:13 amlodipine AdvReac Intermediate confusion Verified 07/23/21 20:13 adhesive tape AdvReac Mild ITCHING Verified 07/23/21 20:13 Consultations 07/23/21 20:54 ED Decision to Admit Stat Ordered Studies 07/24/21 21:19 US venous doppler [facility] Urgent Hospital Course (1) Pneumonia due to 2019 novel coronavirus: 66yo C female with multiple medical comorbidities presenting with Covid-19 PNA and hypoxia. Patient's symptoms began around 07/16/21. She presented today with worsening cough, SOB and congestion. Hypoxic on arrival to 84% on room air. She was initially managed on 4L NC which was increased to 6L. Saturations have been maintained in upper 80's - mid 90's, however, they drop significantly with removal of supplemental O2, movement and coughing fits. She progressively increased to HFNC 40 L/min, FiO2 100% saturating 92%. Treated with lasix IV for AoC CHF contributing to presentation with slight Cr rise hx of repeat HENRIQUE with increases in the past. Remdesivir contraindicated due to renal status. CRP <7.5. Pt with cardiac arrest morning of 07/26 in the setting of worsened hypoxia and COVID pneumonia. Intial return of junctional rhythm with pulse and intubation. Discussed care with who noted pt would not want to survive if it was unlikely to return to a meaningful quality of life and had severely worsened over the last month. Did not wish for additional CPR if pt were to rearrest, code status updated. Pt rearrested shortly after and . No cardiac activity on bedside ultrasound by criteral care criteria. Pupils fixed and dilated, no spontaneous respirations, no corneal reflex. Time of 1131 hrs. Acute hypoxic respiratory failure 2/2 Covid pneumonia -Supplemental O2 as needed to maintain saturations of >92%. Patient with rapid escalation of O2 requirements to HFNS, NIVV ordered -Dexamethasone 6mg IV daily -No Remdesivir secondary to poor renal function (CrCl of 21) -Continue proning/lateral recumbent positions -CRP elevated at 5.26. Did not meet criteria for baricitinib on admission -DVT prophylaxis limited by thrombocytopenia -Tessalon and Robitussin PRN -Albuterol PRN -Tylenol PRN (2) CKD (chronic kidney disease) stage 4, GFR 15-29 ml/min: BUN and Cr were near baseline values -Avoid nephrotoxic agents -Renal dosing where needed -Montior BUN, CR and electrolytes -Continue Sodium Bicarbonate 1300mg po BID Creatinine mildly increased after lasix, although clinically remains with increased volume. CXR with increased pulmonary congestion/edema. Prefer to run slightly dry in the setting of Covid, due to uptrending creatinine. See below for Lasix (3) CHF (congestive heart failure): Acute on chronic -Continue Carvedilol 12.5mg po BID -IV Lasix administered x 60mg in ER for worsening respiratory status -BNP elevated at 11 K -Continue Lasix 40mg po daily, additional Lasix IV evening dose given 07/24 As noted above patient has had recurrent HENRIQUE in the past with attempted diuresis, butwith acute CHF with elevated BNP and this will substantially worsen her Covid prognosis. Continued to diurese with lasix PO home dose converted to IV. Discussed with nephro (4) 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: Chronic. Stable. Patient with history of gastric and esophagesl varices as well as hepatic encephalopathy -Continued Lactulose and Rifaximin -Continued PO Lasix -Avoid hepatotoxic agents -Monitor LFTs (5) Hypertension: Blood pressure stable -Continued Carvedilol, Hydralazine (6) DM type 2 (diabetes mellitus, type 2): Chronic. Blood sugars have been elevated in setting of steroid use -Continued Lantus 22u qHS -ISS -Goal blood sugar 100 - 140 (7) Pancytopenia: Pancytopenic, WBC appears neared normal baseline of 23. Platelets decreased to 35, DVT prophylaxis held -Monitor CBC Total Time Total Time Spent Total Time Spent (In Minutes): Total time spend day of discharge including direct care and documentation 1 hour Discharge Plan Discharge Items Patient Disposition: Reason For Visit: COVID-19, HYPOXIA Follow-up/Referrals: Rocío Alonso DO [Primary Care Provider] - Medications and DC Order Prescriptions: No Action carvedilol 12.5 mg tablet 12.5 mg PO BID Qty: 180 RF: 1 Xifaxan 550 mg tablet 550 mg PO BID Qty: 180 RF: 1 (DME) OneTouch Ultra Blue Test Strip Strip See Rx Instructions .ROUTE .MEDSUPPLY Qty: 100 RF: 1 folic acid 1 mg tablet 1 mg PO BID Qty: 180 RF: 1 sodium bicarbonate 650 mg tablet 1,300 mg PO BID Qty: 180 RF: 1 ropinirole 2 mg tablet See Rx Instructions .ROUTE .COMPLEX Qty: 135 RF: 1 (DME) Dexcom G6 Transmitter Device See Rx Instructions .ROUTE .MEDSUPPLY Qty: 1 RF: 0 (DME) Dexcom G6 Sensor Device See Rx Instructions .ROUTE .MEDSUPPLY Qty: 3 RF: 0 lactulose 20 gram/30 mL solution 45 ml PO BID 30 Days Qty: 2700 RF: 0 ferrous sulfate 325 mg (65 mg iron) tablet,delayed release (DR/EC) 325 mg PO Q OTHER DAY Qty: 30 RF: 5 insulin aspart U-100 [Novolog Flexpen U-100 Insulin] 100 unit/mL (3 mL) insulin pen See Rx Instructions SQ TID Qty: 15 RF: 3 hydroxyzine HCl 25 mg tablet 25 mg PO TID PRN (Reason: Itching) RF: 0 potassium chloride 10 mEq capsule, extended release 10 meq PO DAILY Qty: 30 RF: 0 pantoprazole 40 mg tablet,delayed release (DR/EC) 40 mg PO QAM RF: 0 Forteo 20 mcg/dose (600mcg/2.4mL) Pen Injector 20 mcg SUBCUT DAILY RF: 0 nystatin [Nystop] 100,000 unit/gram Powder 1 applic EXT TID Qty: 15 RF: 0 furosemide 40 mg tablet 40 mg PO DAILY Qty: 30 RF: 0 triamcinolone acetonide 0.1 % ointment 1 applic EXT BID PRN (Reason: Rash) RF: 0 dexamethasone 6 mg tablet 6 mg PO DAILY Qty: 3 RF: 0 hydralazine 10 mg tablet 20 mg PO TID Qty: 180 RF: 1 Basaglar BeenaikPen U-100 Insulin 100 unit/mL (3 mL) insulin pen 22 unit subcut QAM Qty: 0 RF: 0 Admission Data Admit Date/Time: 07/23/21 21:53 Attending Provider: Marco Borrego Admit Provider: Milvia Linares Primary Care Provider: Rocío Alonso. 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
--- NOTE | 2021-08-09 10:02 | Coding Query ---
CODING QUERY To promote full compliance with coding requirements relating to patient care, provider participation is requested in all cases of theatre program director uncertainty. Please assist us with the question(s) below: Coding Question(s): The Procedure Note on 07/26 documents the intubation procedure and documents, "The patient continued with Ambu bag ventilation and was transferred immediately to the ICU. Please see separate notes". It is not clear if the patient was placed on Mechanical Ventilation or if the patient was treated with Non-mechanical ventilation after the intubation procedure. Please Specify below: (xx ) treated with Mechanical Ventilation after intubation procedure ( ) treated with Non-mechanical Ventilation after intubation procedure ( ) Other: Please Specify Physician's Response(s): Thank you [place] Means Principal Diagnosis: "that condition established after study, to be chiefly responsible for occasioning the admission of the patient to the hospital for care." Co-Existing Principal Diagnosis: "when two or more diagnoses equally meet the criteria for principal diagnosis as determined by the circumstances of admission, diagnostic work up, and/or therapy provided, and the Alphabetic Index, Tabular List, or another coding guideline does not provide sequencing direction, any one of the diagnoses may be sequenced first." "When the physician has documented what appears to be a current diagnosis in the body of the record, but has not included the diagnosis in the final diagnostic statement, the physician should be asked whether the diagnosis should be added." (Source Coding Clinic 2 QTR90. p3-4) DARREN
== END 2021-07-26 12:40 | disposition expired | DRG 208 ==
LOC: ED 19:10 → SUATTDRO 21:53 → EDINP 21:53 → 2W 07-25 15:57 → 1E 07-26 11:53
DX: Z79.899 Other long term (current) drug therapy; Z82.49 Family history of ischemic heart disease and other diseases of the circulatory system; Z79.52 Long term (current) use of systemic steroids; Z79.4 Long term (current) use of insulin; E11.22 Type 2 diabetes mellitus with diabetic chronic kidney disease; D61.818 Other pancytopenia; D61.811 Other drug-induced pancytopenia; I13.0 Hypertensive heart and chronic kidney disease with heart failure and stage 1 through stage 4 chronic kidney disease, or unspecified chronic kidney disease; I50.9 Heart failure, unspecified; K76.6 Portal hypertension; Z51.81 Encounter for therapeutic drug level monitoring; T38.0X5A Adverse effect of glucocorticoids and synthetic analogues, initial encounter; Z88.2 Allergy status to sulfonamides; K74.69 Other cirrhosis of liver; Z87.891 Personal history of nicotine dependence; N18.4 Chronic kidney disease, stage 4 (severe); U07.1 COVID-19; J96.01 Acute respiratory failure with hypoxia; D63.8 Anemia in other chronic diseases classified elsewhere; Z88.1 Allergy status to other antibiotic agents; L40.50 Arthropathic psoriasis, unspecified; E11.65 Type 2 diabetes mellitus with hyperglycemia; K21.9 Gastro-esophageal reflux disease without esophagitis; I46.8 Cardiac arrest due to other underlying condition; Z83.3 Family history of diabetes mellitus; Z79.2 Long term (current) use of antibiotics; K75.81 Nonalcoholic steatohepatitis (NASH); J12.82 Pneumonia due to coronavirus disease 2019; Z91.81 History of falling; Z88.8 Allergy status to other drugs, medicaments and biological substances; Z91.048 Other nonmedicinal substance allergy status; M81.0 Age-related osteoporosis without current pathological fracture